=== PATIENT | female | born 1955 | race Caucasian/White ===

== ENCOUNTER 2023-03-02 11:18 | Inpatient (IN) ==
[2023-03-02] MEDS ORDERED: ONDANSETRON INJ 2 MG/ML 2 ML VIAL IV STA (11:57)
[2023-03-02] MEDS ORDERED: CEFEPIME 2,000 MG/20 ML VIAL IV STA (11:57)
[2023-03-02] MEDS: SODIUM CHLORIDE 0.9% 1,000 ML IV SCH ×2 (12:11→15:09)
[2023-03-02] MEDS ORDERED: STAT IV Infusion **Titration per Protocol STA (12:16)
[2023-03-02] MEDS ORDERED: NOREPINEPHRINE/D5W 4 MG/250 ML IV ONE (12:18)
--- NOTE | 2023-03-02 12:27 | XRay Report ---
SINGLE VIEW CHEST CLINICAL HISTORY: Sepsis. FINDINGS: An AP, portable, upright chest radiograph is compared to study dated 04/12/2011. The heart i s enlarged noting atherosclerotic calcification of the thoracic aorta. There is prominence of the pul monary vasculature. Chronic elevation right hemidiaphragm is similar to previous. There is bibasilar atelectasis. No pneumothorax is seen. The skeletal structures are osteopenic. The bony thorax is alis sly intact. Arthritic change is noted in the shoulders. IMPRESSION: 1. Cardiomegaly with prominence of the pulmonary vasculature. Correlate clinically for evidence of fl uid overload/congestive change. 2. No airspace consolidation or large pleural effusion is identified. ACT 112: Negative or not required by law. Electronically signed by: Tani Phan M.D. 03/02/2023 12:26 PM
[2023-03-02 12:28] LABS: Hematocrit (blood only) 42.1 % (37.0-47.0); Hemoglobin 12.5 g/dl (12.0-16.0); Mean Corpuscular Hemoglobin 23.8 pg (25.0-34.0); Mean Corpuscular Hgb Conc 29.7 g/dL (32.0-36.0); Mean Platelet Volume 11.2 fL (9.4-12.4); Platelet Count 237 K/uL (130-400); RDW Coefficient of Variation 18.5 % (11.5-14.5); RDW Standard Deviation 52.6 fL (36.4-46.3); Red Blood Count 5.26 M/uL (4.20-5.40); White Blood Count 11.18 K/ul (4.8-10.8)
[2023-03-02] MEDS ORDERED: NOREPINEPHRINE/D5W 4 MG/250 ML PLCT IV SCH (12:30)
[2023-03-02 12:42] LABS: Albumin Globulin Ratio 1.1 (0.9-2); Albumin Level 3.9 gm/dl (3.4-5.0); BUN Creatinine Ratio 18.8 (10-20); Bilirubin,Total 0.5 mg/dl (0.2-1.0); Calcium 8.8 mg/dl (8.6-10.3); Creatinine Clr Calc Pharmacy 88.3 ml/min; Est GFR (African American) 82.2 ml/min; Est GFR (Non-African American) 70.9 ml/min; Globulin 3.7 gm/dl (2.5-4.0); Magnesium 1.2 mg/dl (1.7-2.4); Potassium 4.6 mmol/L (3.5-5.1); Total Protein 7.6 gm/dl (6.0-8.3)
[2023-03-02 12:48] LABS: Troponin I High Sensitivity 48.6 pg/ml (0-14)
--- NOTE | 2023-03-02 12:51 | Emergency Department Note ---
Impression & Plan Sepsis, PAD (peripheral artery disease), Stenosis of right subclavian artery ED Provider Note NAME: ALLEN HERNANDEZ AGE: 67 SEX: F : 1955 ARRIVES VIA: Walk-In INFORMANT: Patient, ED PROVIDER(S): Angel Ro MD CHIEF COMPLAINT: Hypotension HPI: This is a 67-year-old female presenting for hypotension. Patient reports that she has had vascular problems in the past including an occluded right lower extremity artery. She had a bypass graft which is also been occluded as per vascular doctor yesterday. She has had nonhealing wounds on her right toe as well as the surgical site from the graft. She was sent in by her doctor for low blood pressure concerning for sepsis. Patient tells me that she woke up with uncontrollable shivering. She notes dizziness and vomiting. Alleviating down at this time. She felt totally in her baseline yesterday with normal blood pressures at her doctor's office. Otherwise she denies any chest pain, shortness of breath. ROS: See above HPI for pertinent positives & negatives. A total of 10 systems reviewed and were otherwise negative. PAST MEDICAL HISTORY: See Below PAST SURGICAL HISTORY: See Below FAMILY HISTORY: See Below SOCIAL HISTORY: See Below HOME MEDICATIONS: See Below ALLERGIES: See Below VITALS: See Below PHYSICAL EXAMINATION: General: resting comfortably in no acute distress Head: Normocephalic and atraumatic Eyes: Normal inspection, extraocular muscles intact Ear, nose, throat: Normal external exam Neck: Normal range of motion Respiratory: lungs clear to auscultation bilaterally Cardiovascular: Regular rate/rhythm, no murmur GI: soft, nontender, no guarding or rebound Extremities: Small nonhealing ulcer to the right toe, well-perfused bilateral lower extremities Neuro: The patient awake and alert, appropriately conversive, no focal deficits, symmetric faces Skin: Warm, dry, and intact MEDICAL DECISION MAKING: This is a 67-year-old female senting for hypotension. Concern for multiple times is possibly hypovolemic, septic or cardiogenic. Low concern for cardiogenic shock at this time clinically. -Blood pressure cuff tried on bilateral arms, right upper extremity significantly lower in the 60 systolic while left upper extremity is 80s to 90 systolic. Patient have history of subclavian artery disease which could be contributing. Otherwise she has well-perfused extremities bilaterally with normal pulses -Will do CTA to rule out dissection however low concern the patient has no chest pain, back pain or tearing sensation -Otherwise consider central source as the nonhealing wounds of her right toe/surgical site on the right foot -Patient's foot is well-perfused, warm, redness similar to left -Patient given small dose of Levophed, improvement with 1 L normal saline -Given cefepime for broad-spectrum coverage -CTA does reveal high-grade stenosis of the right subclavian -Discussed with patient's vascular surgeon, Dr. Rosas at [facility] who states that patient should be stabilized here. I discussed the CT results with him and states these are likely chronic without acute issue, no emergent procedure needed at this time. He was scheduling her for an angiogram tomorrow for her graft occlusion in her right lower extremity. Due to patient's nickel allergy she is not a candidate for many endovascular procedures. He made the patient aware that she is already high risk for limb loss. He believes that if we do ultrasound here they will show monophasic signal similar to the yesterday. Otherwise he is happy to consult with the inpatient team here. -Full 30 cc/kg bolus was not given due to patient's history of CHF and signs of fluid overload on chest x-ray/CT as well as hypoxia Differential diagnosis: see above ER treatment provided: See below Diagnostics interpreted by me: ECG: ECG independently interpreted by me with sinus tachycardia, rate of 112, left axis deviation, normal TX, intraventricular conduction delay, normal QTc, no ST segment elevations consistent with STEMI criteria Cardiac Monitoring: An order was placed for continuous cardiac monitoring. The monitor shows a rate of 111 with sinus tach rhythm. Laboratory studies: As stated above and show below. Imaging studies: See below. Critical Care Note: I have personally spent 55 minutes of critical care time in the direct management of this patient. This includes bedside care, interpretation of diagnostic studies, and testing, discussion with consultants, patient, and family members, and other required patient management activities. This 55 minutes is in excess of all separately billable procedures. Past Med/Surg History Medical History (Updated 03/03/23 @ 12:23 by Angel Ro MD) Nocturnal hypoxemia due to emphysema currently using 4L O2 at night Carotid artery stenosis Dyslipidemia GERD without esophagitis History of stroke History of nonmelanoma skin cancer Right inguinal hernia HTN (hypertension) Sensorineural hearing loss SVT (supraventricular tachycardia) Urge incontinence Diabetic macular edema Diabetic retinopathy, nonproliferative COPD (chronic obstructive pulmonary disease) Stenosis of right subclavian artery PAD (peripheral artery disease) CAD (coronary artery disease) Type 2 diabetes mellitus with diabetic neuropathy Surgical History (Updated 03/02/23 @ 17:22 by Tricia Langley PA-C) History of cholecystectomy Hx of sinus surgery Status post breast lumpectomy Hx of tubal ligation H/O: hysterectomy H/O cardiac radiofrequency ablation History of right-sided carotid endarterectomy S/P carpal tunnel release S/P femoropopliteal bypass surgery S/P drug eluting coronary stent placement S/P CABG x 3 Family History (Updated 03/02/23 @ 17:17 by Tricia Langley PA-C) Other Cancer Diabetes Hypertension Social History (Updated 03/02/23 @ 17:18 by Tricia Langley PA-C) Smoking Status: Former smoker Smoking End Date: 12/08/21; Hx Alcohol Use: No Hx Substance Use: No Preferred Language: Icelandic Communication Ability: Effective Integration Aide Required: No Beliefs That Will Affect Care: None Current Living Situation: Spouse Other Information That Helps Us Care for You: No Feels Safe at Home: Yes Safety Concerns: Feels Safe At This Time Assistive Devices: None Allergies Allergies Allergy/AdvReac Type Severity Reaction Status Date / Time paroxetine Allergy Severe HIVES;ANAPHYLAXIS-GENERIC Verified 01/18/23 18:54 BRAND nickel Allergy Intermediate RASH Verified 01/18/23 18:54 Penicillins Allergy Intermediate RASH Verified 01/18/23 18:54 Sulfa (Sulfonamide Allergy Intermediate RASH Verified 01/18/23 18:54 Antibiotics) doxepin AdvReac Intermediate HYPOTENSION Verified 01/18/23 18:54 Home Meds Home Medications Medication Instructions Recorded Confirmed albuterol sulfate 90 mcg/actuation 2 puff inhalation Q4H PRN 01/18/23 03/02/23 aerosol inhaler COUGH/WHEEZING amitriptyline 50 mg tablet 50 mg PO HS 01/18/23 03/02/23 aspirin 81 mg chewable tablet 81 mg PO QAM 01/18/23 03/02/23 atorvastatin 80 mg tablet 80 mg PO DAILY 01/18/23 03/02/23 empagliflozin 10 mg tablet 10 mg PO QAM 01/18/23 03/02/23 (Jardiance) fluticasone propionate 50 2 spray intranasal BID PRN 01/18/23 03/02/23 mcg/actuation nasal Congestion spray,suspension gabapentin 300 mg capsule 300 mg PO BID 01/18/23 03/02/23 insulin aspart U-100 100 unit/mL 15 unit subcut TIDM 01/18/23 03/02/23 (3 mL) subcutaneous pen (Novolog FlexPen U-100 Insulin aspart) insulin glargine 100 unit/mL (3 54 unit subcut HS 01/18/23 03/02/23 mL) subcutaneous pen (Basaglar KwikPen U-100 Insulin) krill oil 1,000 mg-om3 130 mg-dha 1 cap PO QAM 01/18/23 03/02/23 40 mg-epa 80 [id number] cap (Krill Oil (Cope 3 and 6)) liraglutide 0.6 mg/0.1 mL (18 mg/3 1.2 mg subcut DAILY PRN FASTING 01/18/23 03/02/23 mL) subcutaneous pen injector BSG > 150 (Victoza 2-Jayy) lorazepam 0.5 mg tablet 0.5 mg PO Q8H PRN ANXIETY/INSOMNIA 01/18/23 03/02/23 metformin 850 mg tablet 850 mg PO TIDM 01/18/23 03/02/23 metoprolol succinate 25 mg 25 mg PO QAM 01/18/23 03/02/23 tablet,extended release 24 hr mirabegron 50 mg tablet,extended 50 mg PO QAM 01/18/23 03/02/23 release 24 hr (Myrbetriq) rivaroxaban 2.5 mg tablet (Xarelto) 2.5 mg PO BID 01/18/23 03/02/23 ropinirole 0.5 mg tablet 0.5 mg PO HS 01/18/23 03/02/23 sertraline 50 mg tablet 100 mg PO QAM 01/18/23 03/02/23 tramadol 50 mg tablet 50 - 100 mg PO Q6H PRN Pain 01/18/23 03/02/23 Lactobacillus acidophilus 250 1,000 mmu cells PO DAILY 03/02/23 03/02/23 million cell capsule (Probiotic Acidophilus) cranberry fruit concentrate 250 mg 250 mg PO DAILY 03/02/23 03/02/23 chewable tablet (Azo Cranberry) docusate sodium 100 mg capsule 100 mg PO BID PRN Constipation 03/02/23 03/02/23 doxycycline hyclate 100 mg capsule 100 mg PO AMHS 03/02/23 03/02/23 Results & Data (ED) Vital Signs Vital Signs - 24 hr 03/02/23 12:22 03/02/23 12:24 03/02/23 12:26 Pulse Rate Pulse Rate [Right Finger] 110 H 112 H Pulse Rate from SpO2 Sensor Respiratory Rate 19 Respiratory Effort / Characteristics Non-Labored Respiratory Depth Normal Respiratory Pattern Blood Pressure Blood Pressure [Left Arm] Blood Pressure [Right Arm] 70/52 L 68/55 L Blood Pressure Mean Blood Pressure Mean [Left Arm] Blood Pressure Mean [Right Arm] 58 59 Pulse Oximetry 98 Oxygen Delivery Method Nasal Cannula Nasal Cannula Oxygen Flow Rate 4 4 03/02/23 12:28 03/02/23 12:29 03/02/23 12:29 Pulse Rate Pulse Rate [Right Finger] 110 H Pulse Rate from SpO2 Sensor Respiratory Rate 20 20 Respiratory Effort / Characteristics Respiratory Depth Respiratory Pattern Blood Pressure Blood Pressure [Left Arm] 107/69 109/73 Blood Pressure [Right Arm] 107/69 Blood Pressure Mean Blood Pressure Mean [Left Arm] 81 85 Blood Pressure Mean [Right Arm] 81 Pulse Oximetry 98 98 Oxygen Delivery Method Nasal Cannula Oxygen Flow Rate 4 03/02/23 12:31 03/02/23 12:46 03/02/23 13:12 Pulse Rate 111 H Pulse Rate [Right Finger] 110 H 106 H Pulse Rate from SpO2 Sensor Respiratory Rate 24 17 Respiratory Effort / Characteristics Non-Labored Respiratory Depth Normal Respiratory Pattern Regular Blood Pressure Blood Pressure [Left Arm] Blood Pressure [Right Arm] Blood Pressure Mean Blood Pressure Mean [Left Arm] Blood Pressure Mean [Right Arm] Pulse Oximetry 99 Oxygen Delivery Method Nasal Cannula Oxygen Flow Rate 4 03/02/23 13:18 03/02/23 13:30 03/02/23 13:30 Pulse Rate 106 H 107 H Pulse Rate [Right Finger] Pulse Rate from SpO2 Sensor 107 H Respiratory Rate 17 23 Respiratory Effort / Characteristics Respiratory Depth Respiratory Pattern Blood Pressure 92/69 L 90/68 L Blood Pressure [Left Arm] Blood Pressure [Right Arm] Blood Pressure Mean 76 70 Blood Pressure Mean [Left Arm] Blood Pressure Mean [Right Arm] Pulse Oximetry 100 97 Oxygen Delivery Method Nasal Cannula Oxygen Flow Rate 4 03/02/23 13:35 03/02/23 13:35 03/02/23 13:40 Pulse Rate 106 H Pulse Rate [Right Finger] Pulse Rate from SpO2 Sensor 106 H Respiratory Rate 20 Respiratory Effort / Characteristics Respiratory Depth Respiratory Pattern Blood Pressure 92/64 L 95/63 L Blood Pressure [Left Arm] Blood Pressure [Right Arm] Blood Pressure Mean 77 74 Blood Pressure Mean [Left Arm] Blood Pressure Mean [Right Arm] Pulse Oximetry 96 Oxygen Delivery Method Oxygen Flow Rate 03/02/23 13:40 03/02/23 13:41 03/02/23 13:41 Pulse Rate 106 H 105 H Pulse Rate [Right Finger] Pulse Rate from SpO2 Sensor 107 H 106 H Respiratory Rate 16 19 Respiratory Effort / Characteristics Respiratory Depth Respiratory Pattern Blood Pressure 105/62 Blood Pressure [Left Arm] Blood Pressure [Right Arm] Blood Pressure Mean 69 Blood Pressure Mean [Left Arm] Blood Pressure Mean [Right Arm] Pulse Oximetry 99 97 Oxygen Delivery Method Oxygen Flow Rate 03/02/23 13:45 03/02/23 13:45 03/02/23 13:50 Pulse Rate 107 H Pulse Rate [Right Finger] Pulse Rate from SpO2 Sensor 107 H Respiratory Rate 23 Respiratory Effort / Characteristics Respiratory Depth Respiratory Pattern Blood Pressure 95/67 L 109/68 Blood Pressure [Left Arm] Blood Pressure [Right Arm] Blood Pressure Mean 71 91 Blood Pressure Mean [Left Arm] Blood Pressure Mean [Right Arm] Pulse Oximetry 96 Oxygen Delivery Method Oxygen Flow Rate 03/02/23 13:50 03/02/23 13:55 03/02/23 13:55 Pulse Rate 107 H 106 H Pulse Rate [Right Finger] Pulse Rate from SpO2 Sensor 107 H 106 H Respiratory Rate 22 24 Respiratory Effort / Characteristics Respiratory Depth Respiratory Pattern Blood Pressure 101/66 Blood Pressure [Left Arm] Blood Pressure [Right Arm] Blood Pressure Mean 85 Blood Pressure Mean [Left Arm] Blood Pressure Mean [Right Arm] Pulse Oximetry 96 97 Oxygen Delivery Method Oxygen Flow Rate 03/02/23 14:00 03/02/23 14:00 03/02/23 14:05 Pulse Rate 106 H 108 H Pulse Rate [Right Finger] Pulse Rate from SpO2 Sensor 106 H 107 H Respiratory Rate 24 15 Respiratory Effort / Characteristics Respiratory Depth Respiratory Pattern Blood Pressure 96/67 L Blood Pressure [Left Arm] Blood Pressure [Right Arm] Blood Pressure Mean 76 Blood Pressure Mean [Left Arm] Blood Pressure Mean [Right Arm] Pulse Oximetry 97 93 Oxygen Delivery Method Oxygen Flow Rate 03/02/23 14:05 03/02/23 14:10 03/02/23 14:10 Pulse Rate 107 H Pulse Rate [Right Finger] Pulse Rate from SpO2 Sensor 107 H Respiratory Rate 20 Respiratory Effort / Characteristics Respiratory Depth Respiratory Pattern Blood Pressure 95/59 L 108/60 Blood Pressure [Left Arm] Blood Pressure [Right Arm] Blood Pressure Mean 77 72 Blood Pressure Mean [Left Arm] Blood Pressure Mean [Right Arm] Pulse Oximetry 96 Oxygen Delivery Method Oxygen Flow Rate 03/02/23 14:20 03/02/23 14:20 03/02/23 14:26 Pulse Rate 113 H Pulse Rate [Right Finger] Pulse Rate from SpO2 Sensor Respiratory Rate 24 Respiratory Effort / Characteristics Respiratory Depth Respiratory Pattern Blood Pressure 140/76 105/88 Blood Pressure [Left Arm] Blood Pressure [Right Arm] Blood Pressure Mean 97 89 Blood Pressure Mean [Left Arm] Blood Pressure Mean [Right Arm] Pulse Oximetry Oxygen Delivery Method Oxygen Flow Rate 03/02/23 14:26 03/02/23 14:31 03/02/23 14:31 Pulse Rate 103 H 107 H Pulse Rate [Right Finger] Pulse Rate from SpO2 Sensor Respiratory Rate 17 27 H Respiratory Effort / Characteristics Respiratory Depth Respiratory Pattern Blood Pressure 113/80 Blood Pressure [Left Arm] Blood Pressure [Right Arm] Blood Pressure Mean 88 Blood Pressure Mean [Left Arm] Blood Pressure Mean [Right Arm] Pulse Oximetry Oxygen Delivery Method Oxygen Flow Rate 03/02/23 14:35 03/02/23 14:35 03/02/23 14:40 Pulse Rate 108 H 105 H Pulse Rate [Right Finger] Pulse Rate from SpO2 Sensor Respiratory Rate 20 23 Respiratory Effort / Characteristics Respiratory Depth Respiratory Pattern Blood Pressure 87/62 L Blood Pressure [Left Arm] Blood Pressure [Right Arm] Blood Pressure Mean 69 Blood Pressure Mean [Left Arm] Blood Pressure Mean [Right Arm] Pulse Oximetry Oxygen Delivery Method Oxygen Flow Rate 03/02/23 14:40 03/02/23 14:45 03/02/23 14:45 Pulse Rate 103 H Pulse Rate [Right Finger] Pulse Rate from SpO2 Sensor 103 H Respiratory Rate 26 H Respiratory Effort / Characteristics Respiratory Depth Respiratory Pattern Blood Pressure 79/59 L 77/55 L Blood Pressure [Left Arm] Blood Pressure [Right Arm] Blood Pressure Mean 61 64 Blood Pressure Mean [Left Arm] Blood Pressure Mean [Right Arm] Pulse Oximetry 93 Oxygen Delivery Method Oxygen Flow Rate 03/02/23 14:50 03/02/23 14:50 03/02/23 14:56 Pulse Rate 106 H Pulse Rate [Right Finger] Pulse Rate from SpO2 Sensor 106 H Respiratory Rate 23 Respiratory Effort / Characteristics Respiratory Depth Respiratory Pattern Blood Pressure 90/61 L 90/60 L Blood Pressure [Left Arm] Blood Pressure [Right Arm] Blood Pressure Mean 69 71 Blood Pressure Mean [Left Arm] Blood Pressure Mean [Right Arm] Pulse Oximetry 89 L Oxygen Delivery Method Oxygen Flow Rate 03/02/23 14:56 03/02/23 15:00 03/02/23 15:00 Pulse Rate 104 H 105 H Pulse Rate [Right Finger] Pulse Rate from SpO2 Sensor Respiratory Rate 24 25 H Respiratory Effort / Characteristics Respiratory Depth Respiratory Pattern Blood Pressure 107/67 Blood Pressure [Left Arm] Blood Pressure [Right Arm] Blood Pressure Mean 84 Blood Pressure Mean [Left Arm] Blood Pressure Mean [Right Arm] Pulse Oximetry Oxygen Delivery Method Oxygen Flow Rate 03/02/23 15:05 03/02/23 15:05 03/02/23 15:06 Pulse Rate 104 H 102 H Pulse Rate [Right Finger] Pulse Rate from SpO2 Sensor 104 H Respiratory Rate 32 H 20 Respiratory Effort / Characteristics Respiratory Depth Respiratory Pattern Blood Pressure 115/70 115/70 Blood Pressure [Left Arm] Blood Pressure [Right Arm] Blood Pressure Mean 80 85 Blood Pressure Mean [Left Arm] Blood Pressure Mean [Right Arm] Pulse Oximetry 90 90 Oxygen Delivery Method Nasal Cannula Oxygen Flow Rate 4 Laboratory Data 03/03/23 05:05 03/03/23 05:05 Lab Results 03/02/23 03/02/23 03/02/23 Range/Units 12:03 12:08 13:45 WBC 11.18 H (4.8-10.8) K/ul RBC 5.26 (4.20-5.40) M/uL Hgb 12.5 (12.0-16.0) g/dl Hct 42.1 (37.0-47.0) % MCV 80.0 (80.0-100.0) fL MCH 23.8 L (25.0-34.0) pg MCHC 29.7 L (32.0-36.0) g/dL RDW Std Deviation 52.6 H (36.4-46.3) fL RDW Coeff of Janice 18.5 H (11.5-14.5) % Plt Count 237 (130-400) K/uL MPV 11.2 (9.4-12.4) fL Immature Gran % (Auto) 0.5 % Neut % (Auto) 94.9 % Lymph % (Auto) 2.1 % [place] % (Auto) 2.0 % Eos % (Auto) 0.2 % Baso % (Auto) 0.3 % Neut # (Auto) 10.61 H (1.40-6.50) K/uL Lymph # (Auto) 0.24 L (1.20-3.40) K/uL [place] # (Auto) 0.22 (0.11-0.59) K/uL Eos # (Auto) 0.02 (0.00-0.50) K/uL Baso # (Auto) 0.03 (0.00-0.20) K/uL Immature Gran # (Auto) 0.06 (0.01-0.20) K/uL Polychromasia 1+ Ovalocytes 1+ PT 10.4 (9.0-12.0) Seconds INR 0.9 (0.9-1.1) APTT 23 (21-31) Seconds PTT Ratio 0.8 Sodium 133 L (136-145) mmol/L Potassium 4.6 (3.5-5.1) mmol/L Chloride 99 (98-107) mmol/L Carbon Dioxide 24 (21-32) mmol/L Anion Gap 10 (3-11) BUN 16 (6-23) mg/dl Creatinine 0.85 (0.6-1.2) mg/dl Est Cr Clr Drug Dosing 88.3 ml/min Est GFR ( Amer) 82.2 ml/min Est GFR (Non-Af Amer) 70.9 ml/min BUN/Creatinine Ratio 18.8 (10-20) Glucose 246 H (70-99(Fasting)) mg/dl POC Glucose 242 H (70-99) mg/dl Lactate 2.3 H* 2.8 H* (0.4-2.0) mmol/L Calcium 8.8 (8.6-10.3) mg/dl Magnesium 1.2 L (1.7-2.4) mg/dl Total Bilirubin 0.5 (0.2-1.0) mg/dl AST 20 (13-39) U/L ALT 15 (7-52) U/L Alkaline Phosphatase 127 H (34-104) U/L Troponin I High Sens 48.6 H (0-14) pg/ml B-Natriuretic Peptide 121 H (0-100) pg/ml Total Protein 7.6 (6.0-8.3) gm/dl Albumin 3.9 (3.4-5.0) gm/dl Globulin 3.7 (2.5-4.0) gm/dl Albumin/Globulin Ratio 1.1 (0.9-2) Procalcitonin 10.65 H (0-0.5) ng/ml Urine Color Urine Appearance (Clear) Urine pH (4.5-7.5) Ur Specific [place] (1.000-1.030) Urine Protein (Negative) Urine Glucose (UA) (Negative) Urine Ketones (Negative) Urine Blood (Negative) Urine Nitrite (Negative) Urine Bilirubin (Negative) Urine Urobilinogen (Negative) Ur Leukocyte Esterase (Negative) 03/02/23 03/02/23 Range/Units 14:19 14:26 WBC (4.8-10.8) K/ul RBC (4.20-5.40) M/uL Hgb (12.0-16.0) g/dl Hct (37.0-47.0) % MCV (80.0-100.0) fL MCH (25.0-34.0) pg MCHC (32.0-36.0) g/dL RDW Std Deviation (36.4-46.3) fL RDW Coeff of Janice (11.5-14.5) % Plt Count (130-400) K/uL MPV (9.4-12.4) fL Immature Gran % (Auto) % Neut % (Auto) % Lymph % (Auto) % [place] % (Auto) % Eos % (Auto) % Baso % (Auto) % Neut # (Auto) (1.40-6.50) K/uL Lymph # (Auto) (1.20-3.40) K/uL [place] # (Auto) (0.11-0.59) K/uL Eos # (Auto) (0.00-0.50) K/uL Baso # (Auto) (0.00-0.20) K/uL Immature Gran # (Auto) (0.01-0.20) K/uL Polychromasia Ovalocytes PT (9.0-12.0) Seconds INR (0.9-1.1) APTT (21-31) Seconds PTT Ratio Sodium (136-145) mmol/L Potassium (3.5-5.1) mmol/L Chloride (98-107) mmol/L Carbon Dioxide (21-32) mmol/L Anion Gap (3-11) BUN (6-23) mg/dl Creatinine (0.6-1.2) mg/dl Est Cr Clr Drug Dosing ml/min Est GFR ( Amer) ml/min Est GFR (Non-Af Amer) ml/min BUN/Creatinine Ratio (10-20) Glucose (70-99(Fasting)) mg/dl POC Glucose (70-99) mg/dl Lactate (0.4-2.0) mmol/L Calcium (8.6-10.3) mg/dl Magnesium (1.7-2.4) mg/dl Total Bilirubin (0.2-1.0) mg/dl AST (13-39) U/L ALT (7-52) U/L Alkaline Phosphatase (34-104) U/L Troponin I High Sens 63.3 H* D (0-14) pg/ml B-Natriuretic Peptide (0-100) pg/ml Total Protein (6.0-8.3) gm/dl Albumin (3.4-5.0) gm/dl Globulin (2.5-4.0) gm/dl Albumin/Globulin Ratio (0.9-2) Procalcitonin (0-0.5) ng/ml Urine Color Yellow Urine Appearance Clear (Clear) Urine pH 5.0 (4.5-7.5) Ur Specific [place] > 1.045 H (1.000-1.030) Urine Protein Negative (Negative) Urine Glucose (UA) 3+ H (Negative) Urine Ketones Negative (Negative) Urine Blood Negative (Negative) Urine Nitrite Negative (Negative) Urine Bilirubin Negative (Negative) Urine Urobilinogen Negative (Negative) Ur Leukocyte Esterase Negative (Negative) Administered Medications Amitriptyline HCl (Amitriptyline Hcl 50 Mg Tab) 50 mg PO HS [facility] Stop: 04/01/23 20:59 Last Admin: 03/02/23 20:57 Dose: 50 mg Documented By: KURTIS Aspirin (Aspirin 81 Mg Ectab) 81 mg PO QAM [facility] Stop: 04/02/23 08:59 Last Admin: 03/03/23 07:49 Dose: 81 mg Documented By: COOPER Atorvastatin Calcium (Atorvastatin 40 Mg Tab) 80 mg PO DAILY [facility] Stop: 04/02/23 08:59 Last Admin: 03/03/23 07:49 Dose: 80 mg Documented By: COOPER Empagliflo[facility] (Empagliflozin 10 Mg Tab) [facility] [place]: 04/02/23 08:59 Last Admin: 03/03/23 07:49 Dose: 10 mg Documented By: COOPER Gabapentin (Gabapentin 300 Mg Cap) 300 mg PO BID@1200,2100 [facility] Stop: 04/01/23 20:59 Last Admin: 03/02/23 20:58 Dose: 300 mg Documented By: KURTIS Vancomycin HCl 1,000 mg/ (Sodium Chloride) 270 mls @ 200 mls/hr IV Q12H [facility] Stop: 03/10/23 03:59 Last Infusion: 03/03/23 05:04 Dose: Infused Documented By: Admin: 03/03/23 03:28 Dose: 200 mls/hr Documented By: JYOTHI Cefepime HCl 2,000 mg/ Syringe 20 mls @ 5 mls/min IV Q12H [facility]; Protocol Stop: 03/10/23 00:00 Last Admin: 03/03/23 00:28 Dose: 5 mls/min Documented By: KURTIS Insulin Aspart (Insulin Aspart Per Unit Charge) 0 units SC ACHS [facility] Stop: 04/01/23 17:59 Last Admin: 03/03/23 09:06 Dose: 10 units Documented By: COOPER Co-signed By: BRETT Admin: 03/02/23 22:57 Dose: 5 units Documented By: KURTIS Co-signed By: Admin: 03/02/23 19:08 Dose: 6 units Documented By: MAYKEL Co-signed By: KURTIS Insulin Glargine (Lantus Per Unit Charge) 20 units SQ BID [facility] Stop: 04/01/23 20:59 Last Admin: 03/03/23 08:27 Dose: 20 units Documented By: COOPER Co-signed By: BRETT Admin: 03/02/23 20:53 Dose: 20 units Documented By: KURTIS Co-signed By: BLAYNEJ Lactobacillus Acidophilus (Advanced Probiotic 1250 Mg Capsule) 2 cap PO DAILY [facility]; Protocol Stop: 04/02/23 08:59 Last Admin: 03/03/23 07:50 Dose: 2 cap Documented By: COOPER Metoprolol Succinate (Metoprolol Succ 25mg Ext Rel Tab) [facility] [place] [facility] [place]: 04/02/23 08:59 Last Admin: 03/03/23 09:07 Dose: 25 mg Documented By: COOPER Rivaroxaban (Rivaroxaban 2.5 Mg Tab) 2.5 mg PO BID [facility] Stop: 04/01/23 20:59 Last Admin: 03/03/23 07:51 Dose: 2.5 mg Documented By: Admin: 03/02/23 22:22 Dose: Not Given Documented By: KURTIS Ropinirole HCl (Ropinirole Hcl 0.25 Mg Tablet) 0.5 mg PO [facility] Stop: 04/01/23 20:59 Last Admin: 03/02/23 20:56 Dose: 0.5 mg Documented By: KURTIS Sertraline HCl (Sertraline Hcl 100 Mg Tablet) [address] [facility] Stop: 04/02/23 08:59 Last Admin: 03/03/23 07:50 Dose: 100 mg Documented By: COOPER Vibegron (Vibegron 75 Mg Tab) 75 mg PO DAILY [facility]; Protocol Stop: 04/02/23 08:59 Last Admin: 03/03/23 07:51 Dose: 75 mg Documented By: COOPER Discontinued Medications Sodium Chloride (Nss) 1,000 mls @ 999 mls/hr IV .Q1H1M [facility] Stop: 03/02/23 14:00 Last Admin: 03/02/23 15:09 Dose: Not Given Documented By: Infusion: 03/02/23 14:03 Dose: Infused Documented By: Admin: 03/02/23 12:11 Dose: 999 mls/hr Documented By: MAYKEL Cefepime HCl (Maxipime) 2,000 mg in 20 mls @ 5 mls/min IV NOW [facility]; Protocol Stop: 03/02/23 12:00 Last Admin: 03/02/23 12:16 Dose: 5 mls/min Documented By: SHRUTHI Norepinephrine Bitartrate (Levophed/D5w) 4 mg in 250 mls @ 21.563 mls/hr IV .[id number] [facility]; Protocol Stop: 04/01/23 12:29 Last Admin: 03/02/23 17:33 Dose: Not Given Documented By: NRB Vancomycin HCl 2,750 mg/ (Sodium Chloride) 555 mls @ 200 mls/hr IV NOW ONE Stop: 03/02/23 19:46 Last Infusion: 03/02/23 20:17 Dose: Infused Documented By: Admin: 03/02/23 17:29 Dose: 200 mls/hr Documented By: NRBennie Magnesium Sulfate/Dextrose (Magnesium Sulfate / D5w) 1 gm in 100 mls @ 50 mls/hr IV Q2H [facility] Stop: 03/02/23 23:44 Last Infusion: 03/03/23 00:41 Dose: Infused Documented By: Admin: 03/02/23 22:21 Dose: 50 mls/hr Documented By: Infusion: 03/02/23 21:56 Dose: Infused Documented By: Admin: 03/02/23 19:56 Dose: 50 mls/hr Documented By: Infusion: 03/02/23 19:41 Dose: Infused Documented By: Admin: 03/02/23 17:41 Dose: 50 mls/hr Documented By: MAYKEL Ioversol (Optiray 320 125ml) 118 ml IV ONCE ONE Stop: 03/02/23 12:55 Last Admin: 03/02/23 12:54 Dose: 118 ml Documented By: ARPITA Miscellaneous (Stat Iv Infusion Titration Per Protocol) 1 each N/A NOW STA Stop: 03/02/23 12:17 Last Admin: 03/02/23 17:33 Dose: Not Given Documented By: NRBennie Norepinephrine Bitartrate (Norepinephrine/D5w 4 Mg/250 Ml) Confirm Administered Dose 4 mg IV .STK-MED ONE Stop: 03/02/23 12:19 Last Admin: 03/02/23 12:24 Dose: 4 mg Documented By: MAYKEL Ondansetron HCl (Ondansetron Inj 2 Mg/Ml 2 Ml Vial) 4 mg IV NOW STA Stop: 03/02/23 11:58 Last Admin: 03/02/23 12:16 Dose: 4 mg Documented By: HS Ondansetron HCl (Ondansetron Inj 2 Mg/Ml 2 Ml Vial) Confirm Administered Dose 4 mg .ROUTE .STK-MED ONE Stop: 03/02/23 18:00 Last Admin: 03/02/23 18:01 Dose: 4 mg Documented By: NRB Imaging Data Radiologist's Impression: Chest X-Ray 03/02/23 11:48 SINGLE VIEW CHEST CLINICAL HISTORY: Sepsis. FINDINGS: An AP, portable, upright chest radiograph is compared to study dated 04/12/2011. The heart is enlarged noting atherosclerotic calcification of the thoracic aorta. There is prominence of the pulmonary vasculature. Chronic elevation right hemidiaphragm is similar to previous. There is bibasilar atelectasis. No pneumothorax is seen. The skeletal structures are osteopenic. The bony thorax is grossly intact. Arthritic change is noted in the shoulders. IMPRESSION: 1. Cardiomegaly with prominence of the pulmonary vasculature. Correlate clinically for evidence of fluid overload/congestive change. 2. No airspace consolidation or large pleural effusion is identified. ACT 112: Negative or not required by law. Electronically signed by: Tani Phan M.D. 03/02/2023 12:26 PM Foot X-Ray 03/02/23 12:20 XR foot RT 2V HISTORY: 67 years-old Female Foot wound COMPARISON: 01/16/2023 TECHNIQUE: 2 views the right foot FINDINGS: The mineralized appearance of the bones with mild to moderate osteoarthritis. Spurring of the calcaneus. Arterial calcifications. Soft tissue swelling with skin ulcer of the medial right great toe. No acute fracture, dislocation or osseous erosion. No opaque foreign body. IMPRESSION: 1. Soft tissue swelling with cutaneous ulcer of the medial right great toe redemonstrated. 2. No acute osseous abnormality. ACT 112: Negative or not required by law. The above report was generated using voice recognition software. It may contain grammatical, syntax or spelling errors. Electronically signed by: Gilbert Alvarenga M.D. 03/02/2023 2:05 PM Chest CTA 03/02/23 12:34 CT angio chest w con CT DOSE: 889.13 mGy.cm HISTORY: 67 years-old Female with dissection, unequal BP L v R. Acute shortness of breath TECHNIQUE: Multiple CTA images of the chest were obtained after the intravenous administration of 118 ml Optiray. Coronal and sagittal MIPS were obtained from the axial data set and were submitted for review. All measurements were obtained according to NASCET criteria. A dose lowering technique was utilized adhering to the principles of ALARA. COMPARISON: Chest radiograph of same day FINDINGS: CTA: Mild cardiomegaly with extensive coronary artery calcifications. No pericardial effusion. Prior median sternotomy. Atherosclerosis of the aorta, however this is not an arterial phase study secondary to suboptimal contrast bolus timing. Within the limitations of the study, there is no aneurysm, dissection, injury or mediastinal hematoma identified. There is approximately 50% luminal narrowing at the origin of the left subclavian artery secondary to calcified plaque with high-grade stenosis at the origin of the right (at least 90%). The opacified pulmonary artery is unremarkable. CT CHEST: No thyroid nodule. Borderline enlarged mediastinal and hilar lymph nodes measure up to approximately 10 mm. No pneumothorax or pleural effusion. Mild pulmonary emphysema with interlobular septal thickening. Mild linear bibasilar consolidation. Mild left apical pleural parenchymal scarring. There are no suspicious pulmonary nodule or mass is identified. The spleen and liver appear mildly enlarged. Cholecystectomy. No acute upper abdominal abnormality. Unremarkable soft tissues. IMPRESSION: 1. Limited exam secondary to phase of contrast timing. No thoracic aortic aneurysm or dissection. 2. Atherosclerosis of the thoracic aorta and origin of the great vessels. There is high-grade stenosis at the origin of the right subclavian artery with approximately 50% stenosis on the left. This finding may account for the difference in upper extremity blood pressure readings. 3. Right hemidiaphragm elevation with bibasilar atelectasis. 4. Cardiomegaly with questioned mild pulmonary edema. 5. Likely physiologic borderline enlarged mediastinal and hilar lymph nodes. ACT 112: Negative or not required by law. The above report was generated using voice recognition software. It may contain grammatical, syntax or spelling errors. Electronically signed by: Gilbert Alvarenga M.D. 03/02/2023 1:33 PM Discharge Plan Visit Data Chief Complaint: Illness Stated Complaint: NAUSEA, CHILLS, POSSIBLE INFECTION ED Provider: Angel Ro Discharge Problem: Sepsis, PAD (peripheral artery disease), Stenosis of right subclavian artery Discharge Instructions Interventions: ED Discharge Assessment Last Done: 03/02/23 17:55
[2023-03-02] MEDS ORDERED: OPTIRAY 320 125ml IV ONE (12:54)
[2023-03-02 12:58] LABS: INR 0.9 (0.9-1.1); Partial Thromboplastin Ratio 0.8; Partial Thromboplastin Time 23 Seconds (21-31); Prothrombin Time 10.4 Seconds (9.0-12.0)
[2023-03-02 13:03] LABS: Basophils # (auto) 0.03 K/uL (0.00-0.20); Basophils % (auto) 0.3 %; Eosinophils # (auto) 0.02 K/uL (0.00-0.50); Eosinophils % (auto) 0.2 %; Immature Granulocytes # (auto) 0.06 K/uL (0.01-0.20); Immature Granulocytes % (auto) 0.5 %; Lymphocytes # (auto) 0.24 K/uL (1.20-3.40); Lymphocytes % (auto) 2.1 %; Monocytes # (auto) 0.22 K/uL (0.11-0.59); Neutrophils # (auto) 10.61 K/uL (1.40-6.50); Neutrophils % (auto) 94.9 %; Ovalocytes 1+; Polychromasia 1+
--- NOTE | 2023-03-02 13:35 | CT Scan Report ---
CT angio chest w con CT DOSE: 889.13 mGy.cm HISTORY: 67 years-old Female with dissection, unequal BP L v R. Acute shortness of breath TECHNIQUE: Multiple CTA images of the chest were obtained after the intravenous administration of 118 ml Optiray. Coronal and sagittal MIPS were obtained from the axial data set and were submitted for review. All measurements were obtained according to NASCET criteria. A dose lowering technique was u tilized adhering to the principles of ALARA. COMPARISON: Chest radiograph of same day FINDINGS: CTA: Mild cardiomegaly with extensive coronary artery calcifications. No pericardial effusion. Prior media n sternotomy. Atherosclerosis of the aorta, however this is not an arterial phase study secondary to suboptimal contrast bolus timing. Within the limitations of the study, there is no aneurysm, dissecti on, injury or mediastinal hematoma identified. There is approximately 50% luminal narrowing at the or igin of the left subclavian artery secondary to calcified plaque with high-grade stenosis at the orig in of the right (at least 90%). The opacified pulmonary artery is unremarkable. CT CHEST: No thyroid nodule. Borderline enlarged mediastinal and hilar lymph nodes measure up to approximately 10 mm. No pneumothorax or pleural effusion. Mild pulmonary emphysema with interlobular septal thicken ing. Mild linear bibasilar consolidation. Mild left apical pleural parenchymal scarring. There are no suspicious pulmonary nodule or mass is identified. The spleen and liver appear mildly enlarged. Cholecystectomy. No acute upper abdominal abnormality. U nremarkable soft tissues. IMPRESSION: 1. Limited exam secondary to phase of contrast timing. No thoracic aortic aneurysm or dissection. 2. Atherosclerosis of the thoracic aorta and origin of the great vessels. There is high-grade stenosi s at the origin of the right subclavian artery with approximately 50% stenosis on the left. This find ing may account for the difference in upper extremity blood pressure readings. 3. Right hemidiaphragm elevation with bibasilar atelectasis. 4. Cardiomegaly with questioned mild pulmonary edema. 5. Likely physiologic borderline enlarged mediastinal and hilar lymph nodes. ACT 112: Negative or not required by law. The above report was generated using voice recognition software. It may contain grammatical, syntax o r spelling errors. Electronically signed by: Gilbert Alvarenga M.D. 03/02/2023 1:33 PM
--- NOTE | 2023-03-02 14:06 | XRay Report ---
XR foot RT 2V HISTORY: 67 years-old Female Foot wound COMPARISON: 01/16/2023 TECHNIQUE: 2 views the right foot FINDINGS: The mineralized appearance of the bones with mild to moderate osteoarthritis. Spurring of the calcane us. Arterial calcifications. Soft tissue swelling with skin ulcer of the medial right great toe. No a cute fracture, dislocation or osseous erosion. No opaque foreign body. IMPRESSION: 1. Soft tissue swelling with cutaneous ulcer of the medial right great toe redemonstrated. 2. No acute osseous abnormality. ACT 112: Negative or not required by law. The above report was generated using voice recognition software. It may contain grammatical, syntax o r spelling errors. Electronically signed by: Gilbert Alvarenga M.D. 03/02/2023 2:05 PM
[2023-03-02 14:47] LABS: Appearance Urine Clear (Clear); Bilirubin Urine Negative (Negative); Blood Urine Negative (Negative); Color Urine Yellow; Glucose Urine UA 3+ (Negative); Ketones Urine Negative (Negative); Leukocyte Esterase Urine Negative (Negative); Nitrite Urine Negative (Negative); Protein Urine Negative (Negative); Specific Gravity Urine > 1.045 (1.000-1.030); Urobilinogen Urine Negative (Negative)
--- NOTE | 2023-03-02 14:48 | Electrocardiogram Report ---
Test Reason : Blood Pressure : / mmHG Vent. Rate : 112 BPM Atrial Rate : 112 BPM P-R Int : 186 ms QRS Dur : 114 ms QT Int : 342 ms P-R-T Axes : 051 -37 040 degrees QTc Int : 466 ms Sinus tachycardia Possible Left atrial enlargement Left axis deviation Minimal voltage criteria for LVH, may be normal variant Septal infarct , age undetermined Abnormal ECG When compared with ECG of 12-APR-2011 16:13, T wave inversion no longer evident in Lateral leads Confirmed by Silas Sibley ([id number]) on 03/02/2023 2:47:48 PM Referred By: Confirmed By:Silas Sibley
--- NOTE | 2023-03-02 16:03 | History & Physical Report ---
Date of Service March 02, 2023 Assessment & Plan (1) Severe sepsis: Plan: This is a 67 y/o female with insulin-requiring DM2, CAD s/p CABG x 3 (06/19), PAD w/ recent emergent revascularlization of the RLE, COPD/emphysema, diabetic retinopathy and macular edema, diabetic neuropathy, hx SVT, HTN, prior CVA, anxiety/depression, dyslipidemia, and other history as outlined below who was referred to the ED today for possible sepsis. On initial presentation, pt was hypotensive with systolic BP in the 60s, tachycardic >100, tachypnea. Initial lactic acid was 2.3, rpt 2.8. Procal elevated at 10.65. Initial troponin 48.6, rpt 63.3. Given 1L of IVF in the ED but second liter held due to concerns for pulmonary edema. Did not require Levophed drip although initially ordered. Cefepime given for broad-spectrum coverage and pt referred for admission. Presumed source of sepsis is known right great toe ulcer, pt has been on doxycycline from vascular. - Admit to PCU - ED provider discussed pt with vascular surgery [place] [facility] [place] - they agree with our plan to stabilize the patient and work-up further here before determining potential need for transfer vs. discharge with outpatient follow-up - Continue IV cefepime but broaden coverage to include MRSA coverage with Vanco. Blood cultures pending - MRI of right foot to rule out osteomyelitis - Consult podiatry - pt already following with Dr. Pankaj Chisholm - Cautiously resume pt's beta-wojciech as BP has improved, hx of CAD s/p CABG (2) Demand ischemia: Plan: Initial troponin 48.6, rpt 63.3. Pt denies any anginal symptoms but has a history of CAD with CABG x 3 in 2022. - Will trend troponin Q6hrs x 2 - Check ECHO (3) Hypomagnesemia: Plan: Mg today of 1.2 - pt reports that she was previously on supplemental magnesium but a provider told her to stop it - Replete mag IV - Recheck Mg in the AM (4) Diabetic ulcer of right great toe: Plan: - Wound culture - Wound care consult - Podiatry consult (5) Type 2 diabetes mellitus with diabetic neuropathy: Plan: - Continue basal insulin, sliding scale - Diabetic diet - Metformin on hold - A1c in the AM - BSG ACHS (6) CAD (coronary artery disease): Plan: suspect demand ischemia as cause of troponin elevation - currently asymptomatic (7) PAD (peripheral artery disease): Plan: See plan for #1 Will resume rivaroxaban 2.5 mg BID since no immediate surgical intervention anticipated - pt was started on by vascular after surgery in Dec (8) Morbid obesity due to excess calories: (9) COPD (chronic obstructive pulmonary disease): Plan: Stable - continue prn rescue inhaler (10) HTN (hypertension): Plan: Hypotensive on presentation due to severe sepsis - plan as above (11) Dyslipidemia: Plan: Chronic - continue statin (12) Nocturnal hypoxemia due to emphysema: Plan: On baseline 4L of O2 at HS - will continue (13) Stenosis of right subclavian artery: Plan: No BPs in right arm per vascular Plan Continue other home medications as appropriate. Pt seen and reviewed with collaborating physician, Dr. Bird. Plan of care discussed and as outlined above. Code Status: Full code DVT Prophylaxis: on rivaroxaban Rosenda Langley PA-C History of Present Illness Chief Complaint: chills, weakness, N/V Primary Care Provider: Jonny Donaldson MD This is a 67 y/o female with insulin-requiring DM2, CAD s/p CABG x 3 (06/19), PAD w/ recent emergent revascularlization of the RLE, COPD/emphysema, diabetic retinopathy and macular edema, diabetic neuropathy, hx SVT, HTN, prior CVA, anxiety/depression, dyslipidemia, and other history as outlined below who was referred to the ED today for possible sepsis. In Dec 2022, pt presented to the [facility] ED with RLE pain x 3 days. She was found to have ischemic limb with multiple occlusions and was life-flighted to [facility] for emergency revascularization on 01/19/23 and discharged on 01/22/23 on doxycylcine and cefuroxime until 02/02/23 as well as on rivaroxaban 2.5 mg BID. Pt has been following with Dr. Pankaj Chisholm for podiatric care who had recommended an MRI to rule out osteomyelitis. Followed up with vascular surgery on 02/24 due to possible right leg bypass infection due to pain and redness over the right medial calf surgical incision site - bypass found to be occluded. She was started on doxycycline 100 mg BID for ten days. She was instructed to paint the right great toe ulcer with Betadine and cover with dry dressing daily. Followed up with vascular yesterday - symptoms of infection were improving on the doxycycline. Scheduled for angiogram and attempt revasc for 03/03/23. Xarelto held for procedure. Pt reports that she felt fine when she went to bed last evening. This morning, she went to get pre-op labs for vascular procedure tomorrow and had the sudden onset of shaking chills, weakness, nausea/vomiting, and lightheadedness. She reached out to her vascular surgeon who was concerned she may be septic and recommended she go to the ER. She reports that the right great toe ulcer continues to improve with less redness and edema. She continues with scant drainage from the ulcer, has been following wound care instruction from vascular and painting the ulcer with Betadine daily. She denies chest pain, cough, shortness of breath, congestion, diarrhea, dysuria, hematuria. Her last dose of doxycycline was last night. Sugars have been at baseline the last few days. She does use a DexCom for monitoring. 01/19/23 pt underwent the following by Dr. Rosas: * RCFA to BK Pop Art BPG w/ cryopreserved vein * RDFA endarterectomy, beyond the site of our bypass proximal anastomosis (common femoral endarterectomy also performed as part of the revascularization) * PTCA REIA Allergies Allergy/AdvReac Type Severity Reaction Status Date / Time paroxetine Allergy Severe HIVES;ANAPHYLAXIS-GENERIC Verified 01/18/23 18:54 BRAND nickel Allergy Intermediate RASH Verified 01/18/23 18:54 Penicillins Allergy Intermediate RASH Verified 01/18/23 18:54 Sulfa (Sulfonamide Allergy Intermediate RASH Verified 01/18/23 18:54 Antibiotics) doxepin AdvReac Intermediate HYPOTENSION Verified 01/18/23 18:54 Home Medications Medication Instructions Recorded Confirmed Type albuterol sulfate 90 mcg/actuation 2 puff inhalation Q4H PRN 01/18/23 03/02/23 History aerosol inhaler COUGH/WHEEZING amitriptyline 50 mg tablet 50 mg PO HS 01/18/23 03/02/23 History aspirin 81 mg chewable tablet 81 mg PO QAM 01/18/23 03/02/23 History atorvastatin 80 mg tablet 80 mg PO DAILY 01/18/23 03/02/23 History empagliflozin 10 mg tablet 10 mg PO QAM 01/18/23 03/02/23 History (Jardiance) fluticasone propionate 50 2 spray intranasal BID PRN 01/18/23 03/02/23 History mcg/actuation nasal Congestion spray,suspension gabapentin 300 mg capsule 300 mg PO BID 01/18/23 03/02/23 History insulin aspart U-100 100 unit/mL 15 unit subcut TIDM 01/18/23 03/02/23 History (3 mL) subcutaneous pen (Novolog FlexPen U-100 Insulin aspart) insulin glargine 100 unit/mL (3 54 unit subcut HS 01/18/23 03/02/23 History mL) subcutaneous pen (Basaglar KwikPen U-100 Insulin) krill oil 1,000 mg-om3 130 mg-dha 1 cap PO QAM 01/18/23 03/02/23 History 40 mg-epa 80 [id number] cap (Krill Oil (Arvin 3 and 6)) liraglutide 0.6 mg/0.1 mL (18 mg/3 1.2 mg subcut DAILY PRN FASTING 01/18/23 03/02/23 History mL) subcutaneous pen injector BSG > 150 (Victoza 2-Jayy) lorazepam 0.5 mg tablet 0.5 mg PO Q8H PRN ANXIETY/INSOMNIA 01/18/23 03/02/23 History metformin 850 mg tablet 850 mg PO TIDM 01/18/23 03/02/23 History metoprolol succinate 25 mg 25 mg PO QAM 01/18/23 03/02/23 History tablet,extended release 24 hr mirabegron 50 mg tablet,extended 50 mg PO QAM 01/18/23 03/02/23 History release 24 hr (Myrbetriq) rivaroxaban 2.5 mg tablet (Xarelto) 2.5 mg PO BID 01/18/23 03/02/23 History ropinirole 0.5 mg tablet 0.5 mg PO HS 01/18/23 03/02/23 History sertraline 50 mg tablet 100 mg PO QAM 01/18/23 03/02/23 History tramadol 50 mg tablet 50 - 100 mg PO Q6H PRN Pain 01/18/23 03/02/23 History Lactobacillus acidophilus 250 1,000 mmu cells PO DAILY 03/02/23 03/02/23 History million cell capsule (Probiotic Acidophilus) cranberry fruit concentrate 250 mg 250 mg PO DAILY 03/02/23 03/02/23 History chewable tablet (Azo Cranberry) docusate sodium 100 mg capsule 100 mg PO BID PRN Constipation 03/02/23 03/02/23 History doxycycline hyclate 100 mg capsule 100 mg PO AMHS 03/02/23 03/02/23 History Past Med/Surg History Medical History (Updated 03/02/23 @ 17:46 by Tricia Langley PA-C) Nocturnal hypoxemia due to emphysema currently using 4L O2 at night Carotid artery stenosis Dyslipidemia GERD without esophagitis History of stroke History of nonmelanoma skin cancer Right inguinal hernia HTN (hypertension) Sensorineural hearing loss SVT (supraventricular tachycardia) Urge incontinence Diabetic macular edema Diabetic retinopathy, nonproliferative COPD (chronic obstructive pulmonary disease) Stenosis of right subclavian artery PAD (peripheral artery disease) CAD (coronary artery disease) Type 2 diabetes mellitus with diabetic neuropathy Surgical History (Updated 03/02/23 @ 17:22 by Tricia Langley PA-C) History of cholecystectomy Hx of sinus surgery Status post breast lumpectomy Hx of tubal ligation H/O: hysterectomy H/O cardiac radiofrequency ablation History of right-sided carotid endarterectomy S/P carpal tunnel release S/P femoropopliteal bypass surgery S/P drug eluting coronary stent placement S/P CABG x 3 Family History (Updated 03/02/23 @ 17:17 by Tricia Langley PA-C) Other Cancer Diabetes Hypertension Social History (Updated 03/02/23 @ 17:18 by Tricia Langley PA-C) Smoking Status: Former smoker Smoking End Date: 12/08/21; Hx Alcohol Use: No Hx Substance Use: No Preferred Language: Guatemalan Communication Ability: Effective Binding Folder Machine Required: No Beliefs That Will Affect Care: None Current Living Situation: Spouse Other Information That Helps Us Care for You: No Feels Safe at Home: Yes Safety Concerns: Feels Safe At This Time Assistive Devices: None Review of Systems Review of Systems: All systems reviewed & are unremarkable except as noted in HPI & below Constitutional: + chills, + sweats and + fatigue Ear, Nose, Mouth, Throat: no nasal congestion, no nasal discharge and no sore throat Respiratory: no cough and no dyspnea Cardiovascular: + lightheadedness; no chest pain, no pal pitations and no syncope Gastrointestinal: + nausea and + vomiting; no abdominal pa in and no diarrhea/loose stools Genitourinary: no dysuria and no hematuria Integumentary: + skin ulcer Neurologic: no seizure-like activity, no headache(s) and no confusion Physical Exam Physical Exam: General: awake, alert, NAD, Ox3 HEENT: no scleral icterus Neck: trachea midline Heart: RRR, +II/ systolic murmur Lungs: CTA bilaterally, no W/R/R Abdomen: soft, obese, NT, +BS Extremities: unable to palpate distal LE pulses Skin: right great toe with ulcer on medial aspect, scant serous drainage, mild surrounding erythema, no warmth, minimally tender Neurologic: moving all extremities, no focal deficits, no confusion, no dysarthria Results & Data Results & Data Vital Signs (Past 12 Hours) Vital Signs Temp Pulse Pulse Resp BP BP BP 03/02/23 15:06 102 H 20 115/70 03/02/23 13:18 106 H 17 92/69 L 03/02/23 13:12 106 H 17 03/02/23 12:46 111 H 03/02/23 12:31 110 H 24 03/02/23 12:29 20 03/02/23 12:29 109/73 03/02/23 12:28 110 H 20 107/69 107/69 03/02/23 12:26 112 H 19 68/55 L 03/02/23 12:24 110 H 70/52 L 03/02/23 12:22 03/02/23 12:18 112 H 27 H 03/02/23 12:13 112 H 23 64/46 L 03/02/23 12:11 112 H 22 03/02/23 12:11 112 H 21 62/42 L 03/02/23 11:41 36.5 C 128 H 18 61/48 L Pulse Ox O2 Del Method O2 Flow Rate 03/02/23 15:06 90 Nasal Cannula 4 03/02/23 13:18 100 Nasal Cannula 4 03/02/23 13:12 Nasal Cannula 4 03/02/23 12:46 03/02/23 12:31 99 03/02/23 12:29 98 03/02/23 12:29 03/02/23 12:28 98 Nasal Cannula 4 03/02/23 12:26 98 Nasal Cannula 4 03/02/23 12:24 03/02/23 12:22 Nasal Cannula 4 03/02/23 12:18 97 Nasal Cannula 4 03/02/23 12:13 90 Room Air 03/02/23 12:11 90 Room Air 03/02/23 12:11 90 03/02/23 11:41 96 Room Air Laboratory Results Laboratory Results - last 24 hr 03/02/23 03/02/23 03/02/23 12:03 12:08 13:45 WBC 11.18 H RBC 5.26 Hgb 12.5 Hct 42.1 MCV 80.0 MCH 23.8 L MCHC 29.7 L RDW Std Deviation 52.6 H RDW Coeff of Janice 18.5 H Plt Count 237 MPV 11.2 Immature Gran % (Auto) 0.5 Neut % (Auto) 94.9 Lymph % (Auto) 2.1 [place] % (Auto) 2.0 Eos % (Auto) 0.2 Baso % (Auto) 0.3 Neut # (Auto) 10.61 H Lymph # (Auto) 0.24 L [place] # (Auto) 0.22 Eos # (Auto) 0.02 Baso # (Auto) 0.03 Immature Gran # (Auto) 0.06 Polychromasia 1+ Ovalocytes 1+ PT 10.4 INR 0.9 APTT 23 PTT Ratio 0.8 Sodium 133 L Potassium 4.6 Chloride 99 Carbon Dioxide 24 Anion Gap 10 BUN 16 Creatinine 0.85 Est Cr Clr Drug Dosing 88.3 Est GFR ( Amer) 82.2 Est GFR (Non-Af Amer) 70.9 BUN/Creatinine Ratio 18.8 Glucose 246 H POC Glucose 242 H Lactate 2.3 H* 2.8 H* Calcium 8.8 Magnesium 1.2 L Total Bilirubin 0.5 AST 20 ALT 15 Alkaline Phosphatase 127 H Troponin I High Sens 48.6 H B-Natriuretic Peptide 121 H Total Protein 7.6 Albumin 3.9 Globulin 3.7 Albumin/Globulin Ratio 1.1 Procalcitonin 10.65 H Urine Color Urine Appearance Urine pH Ur Specific [place] Urine Protein Urine Glucose (UA) Urine Ketones Urine Blood Urine Nitrite Urine Bilirubin Urine Urobilinogen Ur Leukocyte Esterase 03/02/23 03/02/23 14:19 14:26 WBC RBC Hgb Hct MCV MCH MCHC RDW Std Deviation RDW Coeff of Janice Plt Count MPV Immature Gran % (Auto) Neut % (Auto) Lymph % (Auto) [place] % (Auto) Eos % (Auto) Baso % (Auto) Neut # (Auto) Lymph # (Auto) [place] # (Auto) Eos # (Auto) Baso # (Auto) Immature Gran # (Auto) Polychromasia Ovalocytes PT INR APTT PTT Ratio Sodium Potassium Chloride Carbon Dioxide Anion Gap BUN Creatinine Est Cr Clr Drug Dosing Est GFR ( Amer) Est GFR (Non-Af Amer) BUN/Creatinine Ratio Glucose POC Glucose Lactate Calcium Magnesium Total Bilirubin AST ALT Alkaline Phosphatase Troponin I High Sens 63.3 H* D B-Natriuretic Peptide Total Protein Albumin Globulin Albumin/Globulin Ratio Procalcitonin Urine Color Yellow Urine Appearance Clear Urine pH 5.0 Ur Specific [place] > 1.045 H Urine Protein Negative Urine Glucose (UA) 3+ H Urine Ketones Negative Urine Blood Negative Urine Nitrite Negative Urine Bilirubin Negative Urine Urobilinogen Negative Ur Leukocyte Esterase Negative Diagnostic Findings Chest X-Ray 03/02/23 11:48 SINGLE VIEW CHEST CLINICAL HISTORY: Sepsis. FINDINGS: An AP, portable, upright chest radiograph is compared to study dated 04/12/2011. The heart is enlarged noting atherosclerotic calcification of the thoracic aorta. There is prominence of the pulmonary vasculature. Chronic elevation right hemidiaphragm is similar to previous. There is bibasilar atelectasis. No pneumothorax is seen. The skeletal structures are osteopenic. The bony thorax is grossly intact. Arthritic change is noted in the shoulders. IMPRESSION: 1. Cardiomegaly with prominence of the pulmonary vasculature. Correlate clinically for evidence of fluid overload/congestive change. 2. No airspace consolidation or large pleural effusion is identified. ACT 112: Negative or not required by law. Electronically signed by: Tani Phan M.D. 03/02/2023 12:26 PM Foot X-Ray 03/02/23 12:20 XR foot RT 2V HISTORY: 67 years-old Female Foot wound COMPARISON: 01/16/2023 TECHNIQUE: 2 views the right foot FINDINGS: The mineralized appearance of the bones with mild to moderate osteoarthritis. Spurring of the calcaneus. Arterial calcifications. Soft tissue swelling with skin ulcer of the medial right great toe. No acute fracture, dislocation or osseous erosion. No opaque foreign body. IMPRESSION: 1. Soft tissue swelling with cutaneous ulcer of the medial right great toe redemonstrated. 2. No acute osseous abnormality. ACT 112: Negative or not required by law. The above report was generated using voice recognition software. It may contain grammatical, syntax or spelling errors. Electronically signed by: Gilbert Alvarenga M.D. 03/02/2023 2:05 PM Chest CTA 03/02/23 12:34 CT angio chest w con CT DOSE: 889.13 mGy.cm HISTORY: 67 years-old Female with dissection, unequal BP L v R. Acute shortness of breath TECHNIQUE: Multiple CTA images of the chest were obtained after the intravenous administration of 118 ml Optiray. Coronal and sagittal MIPS were obtained from the axial data set and were submitted for review. All measurements were obtained according to NASCET criteria. A dose lowering technique was utilized adhering to the principles of ALARA. COMPARISON: Chest radiograph of same day FINDINGS: CTA: Mild cardiomegaly with extensive coronary artery calcifications. No pericardial effusion. Prior median sternotomy. Atherosclerosis of the aorta, however this is not an arterial phase study secondary to suboptimal contrast bolus timing. Within the limitations of the study, there is no aneurysm, dissection, injury or mediastinal hematoma identified. There is approximately 50% luminal narrowing at the origin of the left subclavian artery secondary to calcified plaque with high-grade stenosis at the origin of the right (at least 90%). The opacified pulmonary artery is unremarkable. CT CHEST: No thyroid nodule. Borderline enlarged mediastinal and hilar lymph nodes measure up to approximately 10 mm. No pneumothorax or pleural effusion. Mild pulmonary emphysema with interlobular septal thickening. Mild linear bibasilar consolidation. Mild left apical pleural parenchymal scarring. There are no suspicious pulmonary nodule or mass is identified. The spleen and liver appear mildly enlarged. Cholecystectomy. No acute upper abdominal abnormality. Unremarkable soft tissues. IMPRESSION: 1. Limited exam secondary to phase of contrast timing. No thoracic aortic aneurysm or dissection. 2. Atherosclerosis of the thoracic aorta and origin of the great vessels. There is high-grade stenosis at the origin of the right subclavian artery with approximately 50% stenosis on the left. This finding may account for the difference in upper extremity blood pressure readings. 3. Right hemidiaphragm elevation with bibasilar atelectasis. 4. Cardiomegaly with questioned mild pulmonary edema. 5. Likely physiologic borderline enlarged mediastinal and hilar lymph nodes. ACT 112: Negative or not required by law. The above report was generated using voice recognition software. It may contain grammatical, syntax or spelling errors. Electronically signed by: Gilbert Alvarenga M.D. 03/02/2023 1:33 PM Medications Administered Discontinued Medications Sodium Chloride (Nss) 1,000 mls @ 999 mls/hr IV .Q1H1M YARITZA Stop: 03/02/23 14:00 Last Admin: 03/02/23 15:09 Dose: Not Given Documented By: Infusion: 03/02/23 14:03 Dose: Infused Documented By: Admin: 03/02/23 12:11 Dose: 999 mls/hr Documented By: MAYKEL Cefepime HCl (Maxipime) 2,000 mg in 20 mls @ 5 mls/min IV NOW STA; Protocol Stop: 03/02/23 12:00 Last Admin: 03/02/23 12:16 Dose: 5 mls/min Documented By: SHRUTHI Ioversol (Optiray 320 125ml) 118 ml IV ONCE ONE Stop: 03/02/23 12:55 Last Admin: 03/02/23 12:54 Dose: 118 ml Documented By: ARPITA Norepinephrine Bitartrate (Norepinephrine/D5w 4 Mg/250 Ml) Confirm Administered Dose 4 mg IV .STK-MED ONE Stop: 03/02/23 12:19 Last Admin: 03/02/23 12:24 Dose: 4 mg Documented By: MAYKEL Ondansetron HCl (Ondansetron Inj 2 Mg/Ml 2 Ml Vial) 4 mg IV NOW STA Stop: 03/02/23 11:58 Last Admin: 03/02/23 12:16 Dose: 4 mg Documented By: SHRUTHI Code Status & VTE Plan VTE Prophylaxis Plan VTE Prophylaxis will be ordered: Yes Supervising Physician Co-Signing Physician Notes I have seen and examined the patient and have discussed the case with the provider above. I agree with the assessment and plan as stated. 67-year-old female with significant vasculopathy and diabetes status post CABG in June 19, and PAD. She recently had emergent vascularization of the right lower extremity with postoperative complications. She had a wound at the incision site on the leg as well as an ulceration of the right great toe. This was manipulated by her surgeon yesterday in the office. This morning she awoke with chills and shivering. She was hypotensive on admission. CTA was performed to rule out dissection which was negative aside from some stenosis of the right subclavian artery. She was given fluid resuscitation and started on cefepime and vancomycin. Levophed was considered but quickly discontinued. Patient does not report significant pain however does have some pain from claudication intermittently in the top of her foot. She has notified her surgeon in [facility] Exam revealed a morbidly obese female in no acute distress sitting up on the side of the bed. Her legs did not reveal edema and were warm and well-perfused. I was unable to palpate peripheral pulses however these were obtained by the ER doctor and Doppler for pulses was ordered. She has known difficulty with obtaining pulse checks in the office. Otherwise physical exam as noted above. Continue with MRI of right foot to rule out osteomyelitis. Patient is following with podiatry, Dr. Chisholm who was consulted. Bump troponin is likely secondary to demand ischemia as noted above. Will ensure her echocardiogram is performed to rule out any abnormal wall motion abnormality. Doubt ACS. Replace mag as noted above. Continue with broad-spectrum antibiotics pending culture results. Patient is clinically improved already with treatment in the ER. DO [place]on (5) Type 2 diabetes mellitus with diabetic neuropathy Diabetes mellitus prison insulin use: with prison use Qualified Code(s): E11.40 - Type 2 diabetes mellitus with diabetic neuropathy, unspecified; Z79.4 - intermediate teacher (current) use of insulin (6) CAD (coronary artery disease) Associated angina: without angina Coronary Disease-Associated Artery/Lesion type: three affiliated artery [place] vs. transplanted heart: three affiliated heart Qualified Code(s): I25.10 - Atherosclerotic heart disease of three affiliated coronary artery without angina pectoris (9) COPD (chronic obstructive pulmonary disease) COPD type: emphysema Emphysema type: unspecified Qualified Code(s): J43.9 - Emphysema, unspecified (10) HTN (hypertension) Hypertension type: primary hypertension Qualified Code(s): I10 - Essential (primary) hypertension
[2023-03-02] MEDS ORDERED: CARBOHYDRATES FOR HYPOGLYCEMIA PO PRN ×2 (16:32→17:54)
[2023-03-02] MEDS ORDERED: DEXTROSE 50% 50 ML SYRINGE IV PRN ×2 (16:32→17:54)
[2023-03-02] MEDS ORDERED: GLUCOSE 10 TAB/TUBE PO PRN ×2 (16:32→17:54)
[2023-03-02] MEDS ORDERED: GLUCOSE 40% GEL 15 GM TUBE PO PRN ×2 (16:32→17:54)
[2023-03-02] MEDS ORDERED: GLUCAGON FOR INJ 1 MG VIAL SQ PRN ×2 (16:32→17:54)
[2023-03-02] MEDS ORDERED: VANCOMYCIN CONSULT ACTIVE PRN (16:41)
[2023-03-02] MEDS ORDERED: VANCOMYCIN HCL 2,750 MG in SODIUM CHLORIDE 0.9% 500 ML IV ONE (17:00)
--- NOTE | 2023-03-02 17:09 | Pharmacy Report ---
Pharmacy PK ABX Note - Date of Service March 02, 2023 - Assessment and Plan Assessment 67 year old F receiving IV Vancomycin for treatment of sepsis. Possible SSTI, has a bypass graft which is occluded as per vascular doctor yesterday. She has had nonhealing wounds on her right toe as well as the surgical site from the graft. Blood cultures pending. In Dec 2022, pt presented to the [facility] ED with RLE pain x 3 days. She was found to have ischemic limb with multiple occlusions and was life-flighted to [place] for emergency revascularization on 01/19/23 and discharged on 01/22/23 on doxycycline and cefuroxime until 02/02/23 as well as on rivaroxaban 2.5 mg BID. Plan Vancomycin * Loading dose: 2750 mg IV x 1 * Maintenance dose: 1000 mg IV every 12 hours * Regimen is predicted to achieve target AUC/SRINI of 400-600 mg/L.hr * Vancomycin level to be ordered after pharmacist evaluates patient 03/03/23. Pharmacy will continue to follow and will adjust dose/frequency as necessary. Thank you. Pharmacy has transitioned to AUC monitoring for vancomycin. AUC/SRINI is the preferred PK/PD target and is associated with decreased risk of nephrotoxicity compared to traditional trough targets.
[2023-03-02] MEDS: MAGNESIUM SULFATE / D5W 1 GM/100 ML BAG IV SCH ×3 (17:41→22:21)
[2023-03-02] MEDS ORDERED: traMADol HCL 50 MG TABLET PO PRN (17:54)
[2023-03-02] MEDS ORDERED: ONDANSETRON INJ 2 MG/ML 2 ML VIAL IV PRN (17:54)
[2023-03-02] MEDS ORDERED: ALBUTEROL HFA 8 GM INHALER INH PRN (17:54)
[2023-03-02] MEDS ORDERED: ACETAMINOPHEN 325 MG TAB PO PRN (17:54)
[2023-03-02] MEDS ORDERED: DOCUSATE SODIUM 100 MG CAP PO PRN (17:54)
[2023-03-02] MEDS ORDERED: LORazepam 0.5 MG TAB PO PRN (17:54)
[2023-03-02] MEDS ORDERED: ONDANSETRON INJ 2 MG/ML 2 ML VIAL ONE (17:59)
[2023-03-02] MEDS ORDERED: PROMETHAZINE HCL 12.5 MG in SODIUM CHLORIDE 0.9% 50 ML IV PRN (18:58)
[2023-03-02] MEDS: INSULIN ASPART PER UNIT CHARGE SC SCH ×2 (19:08→22:57)
[2023-03-02] MEDS: LANTUS PER UNIT CHARGE SQ SCH (20:53)
[2023-03-02] MEDS: rOPINIRole HCL 0.25 MG TABLET PO SCH (20:56)
[2023-03-02] MEDS: AMITRIPTYLINE HCL 50 MG TAB PO SCH (20:57)
[2023-03-02] MEDS: GABAPENTIN 300 MG CAP PO SCH (20:58)
[2023-03-02] MEDS ORDERED: INSULIN ASPART PER UNIT CHARGE SC SCH (21:00)
[2023-03-02] MEDS ORDERED: LANTUS PER UNIT CHARGE SQ SCH (21:00)
[2023-03-02] MEDS: RIVAROXABAN 2.5 MG TAB PO SCH (22:22)
--- OUTSIDE RECORDS SUMMARY | 2023-03-02 22:32 | External Medical Summary | Summary of Care ---
Author Name Unknown Organization [facility] Address [address] [place] [address] Phone [phone] Care Team Providers Care [employer] Name Role Phone Jonny Donaldson MD Primary Care Provider + Reason for Visit * Reason Comments Follow Up * Evaluate & Treat - Unlimited Visits (Within 10 days (routine)) - Pending Review Specialty Diagnoses / Procedures Referred By Joy fortune Referred To Contact Urology Diagnoses Hematuria, microscopic ScarlettCristopher MD [address] [place] [address] Referral ID Status Reason Start Date Expiration Date Visits Requested Visits Authorized [id number] Pending Review Specialty Services Required [phone] Encounter Details Date Type Department Care Team (Late st Contact Info) Description 03/01/2023 12:00 PM EST Office Visit Vascular [facility]urg [facility] [address] [place] [address] Elver Gaona CRNP [address] [place] [address] PAD (peripheral artery disease) ([facility])* Allergies Active Allergy Reactions Criticality Noted Date Comments Cephalexin 01/28/1996 rash Doxepin 02/01/2018 Dust 04/04/2001 Nickel Anaphylaxis High 04/04/2001 Paroxetine 04/28/2003 generic only, brand ok Penicillins 03/03/1995 Rash Sulfa Antibiotics 11/27/1994 Rash documented as of this encounter (statuses as of 03/02/2023) Medications Medication Sig Dispensed Refills Start Date End Date Status MerfacUCH ULTRA SYSTEM W/DEVICE KITIndications:DM type 2, goal A1c below 7 Use up to four times a day as directed 1 0 06/10/2009 Active RevoDeals ULTRASOFT LANCETS MISCIndications:DM type 2, goal A1c below 7 for testing blood sugar 4 times per day 250.42 1 Box 11 01/09/2013 Active ASPIRIN EC 81 MG PO TBECIndications:Ty pe II or unspecified type diabetes mellitus with renal manifestations, uncontrolled(250.4 2) ([facility]) Take one pill daily 100 Tab 3 01/28/2014 Active fluticasone (FLONASE) 50 MCG/ACT nasal spray Administer 2 Sprays into each nostril 2 times a day. 18.2 mL 5 10/14/2019 Active Feedzai Ultra Blue In Vitro Strip (Glucose Blood)Indications: Type 2 diabetes mellitus with hemoglobin A1c goal of less than 8.0% ([facility]) Use up to 3 times Daily E11.9 poorly controlled. 200 Strip 11 03/11/2021 Active BD Pen Needle Tanja U/F 32G X 4 MM (Insulin Pen Needle)Indications :Type 2 diabetes mellitus with hemoglobin A1c goal of less than 8.0% ([facility]) USE TO INJECT INSULIN 2-3 times per day 200 Each 3 06/30/2021 Active Ventolin HFA 108 (90 Base) MCG/ACT Inhalation Aerosol SolutionIndication s:Cough,Acute bronchitis, complicated Inhale 2 Puffs by mouth every 4 hours as needed for Cough or Wheezing. Strength: 108 (90 Base) MCG/ACT 18 g 5 04/11/2022 Active Rivaroxaban 2.5 MG Oral Tablet (Xarelto) Take 1 Tablet by mouth in the morning and 1 Tablet before bedtime. 2 Tablet 0 06/01/2022 Active Metoprolol Succinate ER 25 MG Oral Tablet Extended Release 24 Hour (toPROL XL)Indications:HTN , goal below 130/80 Take 1 Tablet by mouth in the morning. 90 Tablet 3 06/01/2022 Active Gabapentin 300 MG Oral Capsule (Neurontin)Indicat ions:Leg cramping,Restless legs syndrome 1 cap at lunch and 1 cap in evening by mouth for restless leg 60 Capsule 5 08/15/2022 Active rOPINIRole HCl 0.5 MG Oral Tablet (Requip)Indication s:RLS (restless legs syndrome) TAKE ONE TABLET BY MOUTH AT BEDTIME AND BEFORE naps 180 Tablet 3 09/28/2022 Active Sertraline HCl 50 MG Oral Tablet (Zoloft)Indication s:Generalized anxiety disorder TAKE TWO TABLETS BY MOUTH EVERY MORNING 180 Tablet 2 10/10/2022 Active Victoza 18 MG/3ML Subcutaneous Solution Pen-injector (Liraglutide)Indic ations:Type 2 diabetes mellitus with hemoglobin A1c goal of less than 8.0% (HCC) INJECT 1.2 MG SUBCUTANEOUSLY DAILY IF FASTING SUGAR IS OVER 150 18 mL 0 11/24/2022 Active Krill Oil 1000 MG Oral Capsule Take 1 Capsule by mouth in the morning. 0 Active Myrbetriq 50 MG Oral Tablet Extended Release 24 Hour (Mirabegron ER) Take 1 Tablet by mouth in the morning. 30 Tablet 11 11/30/2022 Active Estradiol 0.1 MG/GM Vaginal Cream (Estrace) Apply pea sized amount (0.5 gm) vaginally twice a week at bedtime 42.5 g 3 11/30/2022 Active Atorvastatin Calcium 80 MG Oral Tablet (Lipitor)Indicatio ns:Dyslipidemia, goal LDL below 100 TAKE ONE TABLET BY MOUTH EVERY DAY 90 Tablet 3 12/17/2022 Active metFORMIN HCl 850 MG Oral Tablet (Glucophage)Indica tions:Type 2 diabetes mellitus with hemoglobin A1c goal of less than 8.0% (HCC) TAKE ONE TABLET BY MOUTH THREE TIMES DAILY WITH MEALS FOR FOR DIABETES 270 Tablet 1 12/17/2022 Active Insulin Glargine Solostar 100 UNIT/ML Subcutaneous Solution Pen-injector (Basaglar KwikPen)Indication s:Type 2 diabetes mellitus with hemoglobin A1c goal of less than 8.0% (HCC) Inject 54 units once daily 60 mL 3 12/30/2022 Active Amitriptyline HCl 50 MG Oral Tablet (Elavil)Indication s:Other chest pain,Neuralgia TAKE ONE TABLET BY MOUTH EVERY DAY 90 Tablet 1 01/03/2023 Active LORazepam 0.5 MG Oral Tablet (Ativan)Indication s:Anxiety state Take 1 Tablet by mouth every 8 hours as needed for Anxiety or Insomnia. 40 Tablet 0 01/05/2023 Active Jardiance 10 MG Oral Tablet (Empagliflozin)Ind ications:Type 2 diabetes mellitus with hemoglobin A1c goal of less than 8.0% (HCC) TAKE 1 TABLET IN THE MORNING 90 Tablet 1 01/16/2023 Active traMADol HCl 50 MG Oral Tablet (Ultram)Indication s:Sciatica, unspecified laterality Take 1-2 Tablets by mouth every 6 hours as needed (pain). 60 Tablet 0 01/23/2023 Active AZO Cranberry 250-30 MG Oral Tablet Take by mouth daily. 0 Acti ve Probiotic Acidophilus Oral Tablet Chewable Take by mouth daily. 0 Active Ketoconazole 2 % External Cream Apply topically to affected area 2 times a day. Apply to left armpit until rash improved. 30 g 1 02/01/2023 Active NovoLOG FlexPen 100 UNIT/ML Subcutaneous Solution Pen-injector (insulin aspart)Indications :Type 2 diabetes mellitus with hemoglobin A1c goal of less than 8.0% (HCC) Inject 15 Units under the skin in the morning and 15 Units at noon and 15 Units in the evening. Inject with meals. 45 mL 3 02/08/2023 Active Doxycycline Hyclate 100 MG Oral Capsule Take 1 Capsule by mouth in the morning and 1 Capsule before bedtime. 20 Capsule 0 02/24/2023 Active Mupirocin 2 % External Ointment (Bactroban) APPLY A SMALL AMOUNT TO THE AFFECTED AREA BY TOPICAL ROUTE DAILY 0 02/21/2023 Active documented as of this encounter (statuses as of 03/02/2023) Active Problems Problem Noted Date Diagnosed Date Morbid (severe) obesity due to excess calories 1 04/04/2022 Acute lower limb ischemia 01/19/2023 Diabetic foot infection 01/19/2023 COPD, group A, by GOLD 2017 classification 01/09 Overview: Per COPD GOLD Classification Urge incontinence of urine 11/28/2022 S/P CABG x 3 06/01/2022 Overview: KUMAR to LAD, SVG to PL of LCx and PDA of the RCA 04/27/[address] Whyte [facility] Farrukh. History of nonmelanoma skin cancer 05/25/2022 Overview: SCC L cheek 02/2022 History of completed stroke 04/27/2022 Overview: Complication of CABG. Left sided weakness. R MCA stroke . 06/06/22 f/u concern for trickle flow -> ER. History of 2019 novel coronavirus disease (COVID -19) 08/10/2021 Overview: 08/18 Carotid artery stenosis without cerebral infarct ion, left 12/30/2020 Other emphysema 12/06/2020 PAD (peripheral artery disease) 03/04/2020 Carpal tunnel syndrome on right 12/18/2019 Type 2 diabetes mellitus wit h diabetic nephropathy, with long-term current use of insulin 08/21/2019 Diabetic macular edema of both eyes 01/14/2019 Sensorineural hearing loss (SNHL) of both ears 1 04/24/2016 Overview: 02/12 audiogram Diabetic retinopathy, nonproliferative, moderate 05/27/2014 Overview: 05/[address] Montez Q6mo monitoring CAD (coronary artery disease) 06/27/2013 Overview: 06/24/13 +CP-abnormal stress->[facility]. 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 85% Circ (stented RACHAEL), LAD 20%. EF shows inferior hypokinesis EF 45% Stent--Medtronic Resolute INtegrity Zotarolimus stent Circumflex. Heart failure, systolic, due to CAD 06/27/2013 S/P drug eluting coronary stent placement 2013 Inguinal hernia, right 06/27/2013 Overview: Fat containing DM type 2 causing neurological disease 3 SVT (supraventricular tachycardia) 11/23/2011 Overview: 04/20/12 AV Ablation-Dr Jeffrey Campos, [facility] Episode June 2011 around 03/12/12 [place] [facility]-P175 SVT--sched for [place] EP study Routine general medical exam ination at a health care facility 11/11/2011 Overview: 01/18 Carotid US [place] stable 50-69 on left. 10/18 colonoscopy [facility] 3 3-[address] colon-polypoid mucosa mild hyperplastic changes. Rectal polyp= hyperplastic polyp. Dr Juan Mak [facility] (11/19 06/14 Cologuard WNL. Cardiology-[facility]re[facility] [place]. 12/17 Carotid 50-69% left ICA stenosis. Vielka done 07/18. 12/17 TTE normal EF Gr1 Feldman dys. Mild MR/TR. Aortic sclerosis 10/12 colonoscopy-polyps tubular adenomas. VIELKA 1y poor prep needs 2d prep--declined, 05/14 cologuard ordered. August 2014-cont Brilinta PFTs--reduced FEV1 and FVC with a normal obstruction index. Post bronchodilator testing failed to demonstrate a significant improvement in FEV1 or FVC. The total lung capacity is mildly reduced (restricted rather than obstructed. Some of the changes consistent with obesity. No good PFT evidence of COPD ) 05/10 TTE @[place] [id number] EF, mild LVH, Gr1 Feldman Dys 07/09 colonoscopy [facility]oscopy [place]-3 & 6mm polyp--PAth--Tubular adenoma 07/09 [place] TSH & celiac testing WNL 04/11 ER visit [facility] SVT--resolved with adenosine. 03/11 EKG-scanned QTc 414 12/08 Stress echo-normal except small calc. On aortic valve and Gr I feldman dysfxn 05/08 mammo WNL 08/07 scope 2 polyp vielka 3Y S/P LAURIE 2001-PFTs WNL HTN, goal below 130/80 10/17/2011 Type 2 diabetes mellitus with diabetic nephropat hy 03/09/2011 Overview: 05/09-start lantus 11/08-a1c 12.8. Restart glipizide, consider insulin. Consider-- iron/ferritin for RLS 05/08 a1c 11, +microalb, start ACEI Hx on byetta, actos/avandia in past LDL 114/TG 291 Dyslipidemia, goal LDL below 100 02/12/2009 Overview: Per Lipid Taxonomy. Tobacco use disorder 12/02/2008 ADVANCE DIRECTIVE INFORMATION 10/18/2004 Overview: Yes, Patient instructed to provide copy of advance directive for provider to review and to be scanned into Electronic Medical Record NONALLERGIC RHINITIS 11/05/2003 Chronic sinusitis 11/05/2003 DYSFUNCT EUSTACHIAN TUBE 12/11/1999 POST-NASAL DRIP 12/11/1999 GENERALIZED ANXIETY DIS Overview: Conflict with father, family INFORMATION Heartburn LUMBAGO Solitary cyst of breast Type 2 diabetes mellitus wit h hemoglobin A1c goal of less than 8.0% Overview: ICD-10 update of inactive term documented as of this encounter (statuses as of 03/02/2023) Resolved Problems Problem Noted Date Diagnosed Date Resolved Date Perichondritis of auricle 02/08/2013 Overview: 02/08 refer ENT HTN, GOAL BELOW 130/80 03/26/200910/19 Overview: Per HTN Taxonomy. Type 2 diabetes mellitus wit h hemoglobin A1c goal of less than 7.0% 12/25/2008 03/09/2011 Overview: Per Diabetes Taxonomy. ICD-10 update of inactive term Type 2 diabetes mellitus wit h hemoglobin A1c goal of less than 7.0% 11/17/2000 12/25/2008 Overview: Per Diabetes Taxonomy. ICD-10 update of inactive term CHRONIC PHARYNGITIS 12/11/1999 11/11/19 12 HTN, goal below 140/90 03/26 Overview: Per HTN Taxonomy. Dyslipidemia, goal to be determined 02/12/2009 Overview: Per Lipid Taxonomy. documented as of this encounter (statuses as of 03/02/2023) Immunizations Name Administration Dates Next Due COVID-19 mRNA, LNP-s, No Pre serve, 2-Dose Series ([employer]) 01/24/2021,01/04/2021,06/03/2020 Hepatitis B, 20+ yrs 08/27/2009,03/30/2009,02/27 Pneumococcal Conjugate Vacc, 13 Valent (Prevnar) 01/28/2022 Pneumococcal Polysaccharide PPV23 (Pneumovax) 10/20/2020 Seasonal Influenza, PF, 6 M & above, IM , (FluLaval or Fluzone) 11/27/2019,11/01/2018,12/15/2017,10/29 Seasonal Influenza, Quadriva lent Hd (Fluzone Hd) 12/16/2022,12/09/2021,11/10/2020 Seasonal Influenza, Quadriva lent, No Preserve, IM 11/16/2015 Seasonal Influenza, Split, I IV3, With Preserve, Inj 10/29/2014,01/02/2014,11/26/2012,01/27,12/26/2010,12/21/2009,12/03/19 09,12/30/2005 TDAP (age 10 and older)(Boostrix) 04/27/2018 TDAP (age 11 and older)(Adacel) 08/28/2008 Varicella Zoster Vaccine (Adult) 08/06/2015 Zoster Vaccine Recombinant (Shingrix) 08/21/2019 ,05/09/2019 07/18/2019 documented as of this encounter Social History Tobacco Use Types Packs/Day Years Used Date Smoking Tobacco: Former Cigarettes 0.9 40 Q uit: 12/08/2021 Smokeless Tobacco: Never Tobacco Cessation:Counseling Given: No Comments:10/04/2019 smokes 15 cigarettes per day on booklet and patches Alcohol Use Standard Drinks/Week Comments Yes 0 (1 standard drink = 0.6 oz pur e alcohol) very rare PHQ-2 Answer Date Recorded PHQ Adult Total Score 0 12/16/2022 Hunger Vital Sign Answer Date Recorded Within the past 12 months, y ou worried that your food would run out before you got the money to buy more. Never true 12/17/19 23 Within the past 12 months, t he food you bought just didn't last and you didn't have money to get more. Never true 12/16/2022 Sex and Gender Information Value Date Recorded Sex Assigned at Female 05/09/2019 8:57 AM EDT Gender Identity Female 05/09/2019 8:57 AM EDT Sexual Orientation Straight 05/09/2019 8: 57 AM EDT Job Start Date Occupation Industry Not on file Not on file Not on file documented as of this encounter Last Filed Vital Signs Vital Sign Reading Time Taken Comments Blood Pressure 124/72 03/01/2023 11:54 AM EST Pulse 90 03/01/2023 11:54 AM EST Temperature 36.4 C (97.5 F) 03/01/2023 11:[address] Respiratory Rate - - Oxygen Saturation - - Inhaled Oxygen Concentration - - Weight - - Height - - Body Mass Index - - documented in this encounter Functional Status Functional Status Response Date of Assess ment Are you deaf or do you have serious difficulty h earing? No 01/19/2023 Are you blind or do you have serious difficulty seeing, even when wearing glasses? No 01/19/2023 Do you have serious difficul ty walking or climbing stairs? (5 years old or older) Yes 01/19/2023 Do you have difficulty dress ing or bathing? (5 years old or older) No 01/19/2023 Because of a physical, menta l, or emotional condition, do you have difficulty doing errands alone such as visiting a doctor s office or shopping? (15 years old or older) Yes 01/20/20 Cognitive Status Response Date of Assessm ent Because of a physical, menta l, or emotional condition, do you have serious difficulty concentrating, remembering, or making decisions? (5 years old or older) No 01/19/2023 documented as of this encounter Progress Notes * Aracelis Pandey PA-C - 03/01/2023 12:01 PM EST Images from the original note were not included. Date of Service: 03/01/2023 12:02 PM Mariia Liao is a 67 year old female. Referring Physician: Jonny Donaldson MD Chief Complaint: Follow-up of occluded RLE BPG Called in on 02/22/23 with new concerns of red, raised bump along right medial calf surgical incision, which she reports started since last office visit (02/09/23) Offered clinic appt, but couldn't come until 02/24 Bypass found to be occluded 02/24 Reported pain and redness over R medial calf surgical incision line Has improved since initiating doxy on 02/24 Reports R foot pain and numbness/tingling, somewhat improves with hanging foot down, says she has had these symptoms since about 02/22 Reports mild swelling of R leg, wearing tubigrip Reports painting R great toe ulcer with betadine Has MRI scheduled for 03/08/23 (ordered by awning maker) No fever/chills On 02/24 appointment for today made with vein mapping which was discussed with Dr. Enciso Accompanied by . HPI: Former smoker with DM, HTN, dyslipidemia, CAD, CHF, and NICKEL allergy Presented to [facility] ER with non-healing ulcer of right great toe, progressive pain in RLE & SSTI on 01/19/23 Was transferred to [facility], via [facility]. GSV was harvested for prior CABG PTFE graft was not used due to active R foot infection Cryovein was the only option available S/P RCFA => BK Pop BPG w/ cryopreserved vein, R DFA endarterectomy (beyond site of prox anastomosis), and REIA angioplasty 01/19/[address] Rosas. Discharged 01/22/23, on Doxy and Cefuroxime, with stop date 02/02/23, as well as Xarelto 2.5 mg BID PERIPHERAL VASCULAR DISEASE: S/P RCFA => BK Pop Art BPG w/ cryopreserved vein, R DFA endarterectomy (beyond site of prox anastomosis), and REIA angioplasty 01/19/[address] Rosas. Occluded on 02/24. Symptoms of rest pain since02/22 Denies classic vasculogenic claudication Reports non-healing R great toe ulcer CAROTID/SUBCLAVIAN DISEASE: S/P R CEA 05/02/22 @ [facility] Patient denies recent TIA, recent stroke and recent amaurosis fugax. R subclavian artery disease, per RANJITH Had a carotid duplex on 12/21/22 in [place] (Dr. Jeffrey Campos) Wellness Nurse ordered this test, and she suspects everything was stable since she did not here from him; was told he would only notify her if any issues were found on ultrasound Scheduled with Cardiology on 07/03/2023 Current Outpatient Medications Medication Sig Dispense Refill RevoDeals ULTRA SYSTEM W/DEVICE KIT Use up to four times a day as directed [address] [facility] for testing blood sugar 4 times per day 250.42 1 [address] 11 ASPIRIN EC 81 MG PO TBEC Take one pill daily 100 Tab 3 fluticasone (FLONASE) 50 MCG/ACT nasal spray Administer 2 Sprays into each nostril 2 times a day. 18.2 mL 5 OneTouch Ultra Blue In Vitro Strip (Glucose Blood) Use up to 3 times Daily E11.9 poorly controlled.200 Strip 11 BD Pen Needle Tanja U/F 32G X 4 MM (Insulin Pen Needle) USE TO INJECT INSULIN 2-3 times per day 200 Each 3 Ventolin HFA 108 (90 Base) MCG/ACT Inhalation Aerosol Solution Inhale 2 Puffs by mouth every 4 hours as needed for Cough or Wheezing. Strength: 108 (90 Base) MCG/ACT 18 g 5 Rivaroxaban 2.5 MG Oral Tablet (Xarelto) Take 1 Tablet by mouth in the morning and 1 Tablet before bedtime. 2 Tablet 0 Metoprolol Succinate ER 25 MG Oral Tablet Extended Release 24 Hour (toPROL XL) Take 1 Tablet by mouth in the morning. 90 Tablet 3 Gabapentin 300 MG Oral Capsule (Neurontin) 1 cap at lunch and 1 cap in evening by mouth for restless leg 60 Capsule 5 rOPINIRole HCl 0.5 MG Oral Tablet (Requip) TAKE ONE TABLET BY MOUTH AT BEDTIME AND BEFORE naps 180 Tablet 3 Sertraline HCl 50 MG Oral Tablet (Zoloft) TAKE TWO TABLETS BY MOUTH EVERY MORNING 180 Tablet 2 Victoza 18 MG/3ML Subcutaneous Solution Pen-injector (Liraglutide) INJECT 1.2 MG SUBCUTANEOUSLY DAILY IF FASTING SUGAR IS OVER 150 18 mL 0 Krill Oil 1000 MG Oral Capsule Take 1 Capsule by mouth in the morning. Myrbetriq 50 MG Oral Tablet Extended Release 24 Hour (Mirabegron ER) Take 1 Tablet by mouth in the morning. 30 Tablet 11 Estradiol 0.1 MG/GM Vaginal Cream (Estrace) Apply pea sized amount (0.5 gm) vaginally twice a week at bedtime 42.5 g 3 Atorvastatin Calcium 80 MG Oral Tablet (Lipitor) TAKE ONE TABLET BY MOUTH EVERY DAY 90 Tablet 3 metFORMIN HCl 850 MG Oral Tablet (Glucophage) TAKE ONE TABLET BY MOUTH THREE TIMES DAILY WITH MEALSFOR FOR DIABETES 270 Tablet 1 Insulin Glargine Solostar 100 UNIT/ML Subcutaneous Solution Pen-injector (Basaglar KwikPen) Inject 54 units once daily 60 mL 3 Amitriptyline HCl 50 MG Oral Tablet (Elavil) TAKE ONE TABLET BY MOUTH EVERY DAY 90 Tablet 1 LORazepam 0.5 MG Oral Tablet (Ativan) Take 1 Tablet by mouth every 8 hours as needed for Anxiety orInsomnia. 40 Tablet 0 Jardiance 10 MG Oral Tablet (Empagliflozin) TAKE 1 TABLET IN THE MORNING 90 Tablet 1 traMADol HCl 50 MG Oral Tablet (Ultram) Take 1-2 Tablets by mouth every 6 hours as needed (pain). 60 Tablet 0 AZO Cranberry 250-30 MG Oral Tablet Take by mouth daily. Probiotic Acidophilus Oral Tablet Chewable Take by mouth daily. Ketoconazole 2 % External Cream Apply topically to affected area 2 times a day. Apply to left armpit until rash improved. 30 g 1 NovoLOG FlexPen 100 UNIT/ML Subcutaneous Solution Pen-injector (insulin aspart) Inject 15 Units under the skin in the morning and 15 Units at noon and 15 Units in the evening. Inject with meals. 45 mL 3 Doxycycline Hyclate 100 MG Oral Capsule Take 1 Capsule by mouth in the morning and 1 Capsule beforebedtime. 20 Capsule 0 Mupirocin 2 % External Ointment (Bactroban) APPLY A SMALL AMOUNT TO THE AFFECTED AREA BY TOPICAL ROUTE DAILY No current facility-administered medications for this visit. Review of patient's allergies indicates: Allergen Reactions Nickel Anaphylaxis Cephalexin rash Doxepin Dust Paroxetine generic only, brand ok Penicillins Rash Sulfa Antibiotics Rash Patient Active Problem List Diagnosis Code DYSFUNCT EUSTACHIAN TUBE H69.90 POST-NASAL DRIP J06.9 NONALLERGIC RHINITIS J31.0 Chronic sinusitis J32.9 GENERALIZED ANXIETY DIS F41.1 INFORMATION INFO Heartburn R12 LUMBAGO M54.50 Solitary cyst of breast N60.09 ADVANCE DIRECTIVE INFORMATION Tobacco use disorder F17.200 Dyslipidemia, goal LDL below 100 E78.5 Type 2 diabetes mellitus with diabetic nephropathy (HCC) E11.21 HTN, goal below 130/80 I10 Routine general medical examination at a health care facility Z00.00 SVT (supraventricular tachycardia) I47.10 Type 2 diabetes mellitus with hemoglobin A1c goal of less than 8.0% (HCC) E11.9 DM type 2 causing neurological disease (HCC) E11.49 CAD (coronary artery disease) I25.10 Heart failure, systolic, due to CAD I50.20, I25.10 S/P drug eluting coronary stent placement Z95.5 Inguinal hernia, right K40.90 Diabetic retinopathy, nonproliferative, moderate ([facility]) E11.3399 Sensorineural hearing loss (SNHL) of both ears H90.3 Diabetic macular edema of both eyes ([facility]) E11.311 Type 2 diabetes mellitus with diabetic nephropathy, with long-term current use of insulin ([facility]) E11.21, Z79.4 Carpal tunnel syndrome on right G56.01 PAD (peripheral artery disease) ([facility]) I73.9 Other emphysema ([facility]) J43.8 Carotid artery stenosis without cerebral infarction, left I65.22 History of 2019 novel coronavirus disease (COVID-19) Z86.16 History of nonmelanoma skin cancer Z85.828 S/P CABG x 3 Z95.1 History of completed stroke Z86.73 Urge incontinence of urine N39.41 COPD, group A, by GOLD 2017 classification ([facility]) J44.9 Acute lower limb ischemia I99.8 Diabetic foot infection E11.628, L08.9 Morbid (severe) obesity due to excess calories ([facility]) E66.01 Past Medical History: Diagnosis Date Allergic rhinitis Background diabetic retinopathy(362.01) 05/27/201405/[address] Montez Q6mo monitoring Benign neoplasm of colon 07/30/2010 polyps x 2--adenomatous tissue--repeat in 3 yrs , diverticulosis & fair prep-- CAD (coronary artery disease) 06/27/2013 06/24/13 +CP-abnormal stress->[facility]. 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 85% Circ (stented RACHAEL), LAD 20%. EF shows inferior hypokinesis EF 45% Carotid artery stenosis without cerebral infarction, left 12/30/2020 Chronic sinusitis 06/07/2001 Diabetic macular edema of both eyes ([facility]) 01/14/2019 DM type 2, goal A1C 7-8 DM type 2, goal A1c below 7 1998 Dyslipidemia, goal to be determined Generalized anxiety disorder Heart failure, systolic, due to CAD 06/27/2013 Heartburn History of 2019 novel coronavirus disease (COVID-19) 08/10/202108/18 History of completed stroke 04/27/2022 Complication of CABG. Left sided weakness. HTN, goal below 140/90 INFORMATION seasonal affective disorder Inguinal hernia, right 06/27/2013 Fat containing Lumbago Moderate nonproliferative diabetic retinopathy of right eye with macular edema associated with type2 diabetes mellitus (HCC) 05/31/2021 Open wound of trunk 05/2008 s/p LAURIE Pneumonia, organism unspecified(486) 11/1992 Proliferative diabetic retinopathy of left eye without macular edema associated with type 2 diabetes mellitus (HCC) 05/31/2021 S/P CABG x 3 06/01/2022 S/P drug eluting coronary stent placement 06/27/2013 Sensorineural hearing loss (SNHL) of both ears 02/21/2017 Solitary cyst of breast 1991 Past Surgical History: Procedure Laterality Date ABLATE HEART DYSRHYTHM FOCUS 04/20/2012 AV Ablation-Dr Jeffrey Campos, [facility] BREAST LESION,OTHER,EXCISION Left benign BYPASS GRFT OTHER-CAROTID Right 05/02/[address] Oshea [facility] CARDIAC CATH SCANNED RESULT 06/24/2013 +Circ stent RACHAEL. CARPAL TUNNEL SURGERY 08/1992 Carpal Tunnel repair CARPAL TUNNEL SURGERY Left 12/11/2019 NEUROPLASTY MEDIAN NERVE AT CARPAL TUNNEL performed by Pankaj Osorio MD at OR [facility] COLONOSCOPY W/ LESION REMOVAL, SNARE 07/30/2010 polyps x 2--adenomatous tissue--repeat in 3 yrs , diverticulosis & fair prep-- COLONOSCOPY, DIAGNOSTIC (RECTUM) 10/02/2015 adenomatous polyps, diverticulosis, poor prep, repeat 1 yr/[facility] DEEP FEMORAL Right 01/19/2023 DEEP FEMORAL ENDARTERECTOMY performed by Willian Rosas MD at OR [facility] EXPLORATION OF MAXILLARY SINUS 06/07/2001 Sinus Surgery HYSTEROSCOPY W/BIOPSY AND/OR POLYPECTOMY W/WO D&C 02/14/2006 INFORMATION ablation INTRODUCTION OF CATHETER, AORTA 01/19/2023 CATHETER PLACEMENT, AORTA performed by Willian Rosas MD at OR [facility] LAP;OCCULSION OVIDUCTS/DEVICE 1985 LIGATE/CUT OVIDUCT(S) tubal ligation -rings [place] CORONARY ARTERY BYP W/VEIN & ARTERY GRAFT 3 VEIN 04/27/2022 KUMAR to LAD, SVG to PL of LCx and PDA of the RCA 04/27/[address] Whyte [facility]. PULMONARY FUNCTION TEST SCREEN 10/09/2001 normal REMOVE GALLBLADDER 04/1993 Cholecystectomy REPAIR OF NASAL SEPTUM 06/07/2001 Nasal Septum Repair SYNTH BYPASS, FEMORAL-POP Right 01/19/2023 BYPASS GRAFT OTHER THAN VEIN FEMORAL POPLITEAL performed by Willian Rosas MD at [facility] TOTAL ABD HYSTERECTOMY W/WO REMOVAL OF TUBE(S) 06/23/2008 & oopherectomy VAGINAL DELIVERY ONLY VENOGRAM EXTREMITY UNI-FLUOR Right 01/19/2023 IMAGING SUPERVISION & INTERPRETATION EXTREMITY VEIN performed by Willian Rosas MD at [facility] Family History Problem Relation Age of Onset Hypertension Mother Arthritis Mother Diabetes Father diet controlled Diabetes Sister Hypertension Sister Other (uticaria) Sister Cancer Grandfather (Paternal) gi cancer- Cancer Grandmother (Paternal) leukemia Other (anxiety) Grandmother (Paternal) Other (hyperlidemia) Sister Eye Problems Brother glaucoma No Past Hx Brother No Past Hx Daughter Allergies Sister hives Asthma Aunt (Unspecified) Social History Socioeconomic History Marital status: Spouse name: Efrem Number of children: 1 Years of education: 12 Highest education level: Not on file Occupational History Occupation: retired. Employer: [email or web address] Comment: [employer] [facility] Tobacco Use Smoking status: Former Packs/day: 0.90 Years: 40.00 Additional pack years: 0.00 Total pack years: 36.00 Types: Cigarettes Quit date: 12/08/2021 Years since quittin.2 Smokeless tobacco: Never Tobacco comments: 10/04/2019 smokes 15 cigarettes per day on booklet and patches Vaping Use Vaping Use: Never used Substance and Sexual Activity Alcohol use: Yes Comment: very rare Drug use: No Sexual activity: Yes Partners: Male control/protection: Surgical Comment: tubal. +. 1 daughter 28Y Other Topics Concern Service No Blood Transfusions No Caffeine Concern No Occupational Exposure No Hobby Hazards No Sleep Concern No Stress Concern No Weight Concern No Special Diet No Back Care No Exercise Yes Bike Helmet Not Asked Seat Belt Yes Self-Exams Yes Social History Narrative Likes to shop, crafts, yardwork/gardening [employer] [place] INFORMATION ENIVIRONMENTAL HISTORY: House: [place] Type of Heating System: Oil and Forced air Air Conditioning: Yes Room, BR, KIT Basement: Unfinished, Dampness and Dehumidifier Home have cockroaches: No Irritants in the home: Passive Smoke and Scented Candles Patient's bedroom: FLOOR: first TYPE OF LENI: Carpeting Beds: AMOUNT : 1 TYPE OF BEDS: Mattress Pillows: AMOUNT: 3 TYPE OF PILLOWS: Foam Bedroom contains: Minimal items Pets: 1 dog(s) Lives on a farm: No 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, 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 Entered By: Onur Salinas MD 11/05/2003 Social Determinants of Health Financial Resource Strain: Not on file Food Insecurity: No Food Insecurity (12/16/2022) Hunger Vital Sign Worried About Running Out of Food in the Last Year: Never true Ran Out of Food in the Last Year: Never true Transportation Needs: Not on file Physical Activity: Not on file Stress: Not on file Social Connections: Not on file Intimate Partner Violence: Not on file Housing Stability: Not on file Vaping/E-Cigarette Use Vaping/E-Cigarette Use Never User Vaping/E-Cigarette Substances Vaping/E-Cigarette Devices REVIEW OF SYSTEMS: Constitutional: Denies fever/chills Eyes: Denies amaurosis fugax. Cardiovascular: denies chest pain, denies TN, reports CHF, reports CAD s/p PCI in 2013. Respiratory: denies shortness of breath, reports PINEDA. Musculoskeletal: reports arthritis, reports chronic low back pain. Skin: reports R great toe ulcer Neurological: denies TIA, denies CVA Psychiatric: reports anxiety. Endocrine: reports NIDDM, reports hyperlipidemia. GENERAL MULTI-SYSTEM PHYSICAL EXAM: VITAL SIGNS: BP 124/72 (BP Site: Right Arm, BP Position: Sitting, BP Cuff Size: Regular) | Pulse 90 | Temp 36.4 C (97.5 F) (Temporal Artery) | LMP 03/13/2008 GENERAL MULTI-SYSTEM PHYSICAL EXAM: GENERAL: Normal grooming habits, no acute distress and appears stated age. NECK: No masses. R CEA scar RESPIRATORY: respiratory effort normal CARDIOVASCULAR: Mild-moderate RLE edema, no significant LLE edema GASTROINTESTINAL: no tenderness, protuberant PSYCHIATRIC: orientation to time, place and person normal and recent and remote memory normal. EYES: conjunctivae normal. NEUROLOGIC: Motor function grossly intact SKIN: No ulcers of left foot R great toe ulcer with serosanguinous drainage and macerated skin edges. Somewhat sausage-like. PHOTO. R medial calf surgical incision with some serosanguinous drainage. PHOTO R great toe R foot R leg PULSE SCALE: Carotid Right:----Bruit: No Left:----Bruit: Yes Radial Right: 2 Left: 3 Femoral Right: 0 (unable to palpate given large body habitus) Left: 0 (unable to palpate given large body habitus) Popliteal Right: 0, NO doppler signal Left: 0 Dorsalis Pedis Right: 0, monophasic doppler signal Left: 0, multiphasic doppler signal Posterior Tibial Right: 0, NO doppler signal Left: 0, multiphasic doppler signal PULSE SCALE: 4=Aneurysmal; 3=Normal; 2=Diminished; 1=Barely Palpable; 0=Absent DIAGNOSTIC STUDIES: 03/01/23: BUE vein mapping: R ceph 3.9/4.3/4.2/3.5, R basilic 3.6/4.2/3.5, L ceph 4/3.9/4.2/3.3/3.2, L basilic 6.7/4.7/4.4 02/24/23: X-ray R foot/toes: No osteo. No osteolysis or periosteal reaction. No fracture or dislocation. 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 Achilles and plantar calcaneal enthesophytes. 02/24/23: RANJITH: 0.46 / 0.99 ; RLE monophasic waveforms with flat ppg, LLE monophasic waveforms with decreased ppgs 02/24/23: arterial duplex: REIA stent 143/210/207/244, RCFA 187, RDFA 142, R PROJECT ACCOUNTANT - pop bpg occluded, R prox calf area of interest 1.86 cm x 2.02 cm, R prox calf dist anast nooksack runoff 54 The above diagnostic images were directly visualized and independently interpreted by me on 03/01/2023 with results as above 12/23/22 RANJITH: 0.48/0.65, monophasic toe PPGs 10/18/19 CTA aorta/runoff: moderate aortoiliac disease with distal aortic stenosis (no focal high-grade stenosis), bilateral femoral disease, Right SFA occlusion, Left SFA diseased 10/04/19: Exercise doppler: she did have R>L calf claudication while on the treadmill R at rest 0.59/with exercise 0.31 L at rest 0.94/with exercise 0.62 10/04/19: carotid duplex: RENNY 106/25, LICA 162/20, both verts antegrade 11/2017 CT abd/pelv: moderate btrqr-lpxkg-wiacqcc disease bilaterally LABS: Creatinine Results: Lab Results Component Value Date/Time CREATININE - [facility] 0.8 01/21/2023 06:49 AM CREATININE - [facility] 0.7 01/20/2023 05:01 AM CREATININE - [facility] 0.7 01/19/2023 04:44 PM CREATININE - [facility] 0.9 11/21/2019 08:37 AM CREATININE - [facility] 0.9 10/07/2019 10:02 AM CREATININE - [facility] 0.6 06/13/2013 01:11 PM CREATININE, RANDOM URINE - [facility] 22 12/05/2022 02:23 PM CREATININE, RANDOM URINE - [facility] 69 06/25/2021 07:35 AM CREATININE, RANDOM URINE - [facility] 94 07/30/2020 09:08 AM CREATININE, RANDOM URINE - [facility] 38 11/21/2019 08:37 AM CREATININE, RANDOM URINE - [facility] 46 04/16/2014 09:00 AM CREATININE, RANDOM URINE - [facility] 61 11/05/2009 09:28 AM CREATININE-OU[facility]IDE LAB 0.77 08/15/2019 12:00 AM CREATININE-OUTSIDE LAB 0.74 06/14/2018 12:00 AM CREATININE-OUTSIDE LAB 0.68 12/12/2017 12:00 AM Lab Results Component Value Date/Time LDL (CALCULATED)-OUTSIDE LAB 85 08/15/2019 12:00 AM LDL (DIRECT MEASURE)-[facility] LAB 83 06/23/2017 12:00 AM LDL CHOLESTEROL (CALCULATED) - [facility] 64 06/24/2016 12:00 AM LDL CHOLESTEROL (DIRECT MEASURE) - [facility] 86 12/05/2022 02:21 PM LDL CHOLESTEROL (DIRECT MEASURE) - [facility] 222 (H) 11/28/2008 08:56 AM Hemoglobin Results: Lab Results Component Value Date/Time HGB - [facility] 10.2 (L) 01/21/2023 06:49 AM HGB - [facility] 10.1 (L) 01/20/2023 05:01 AM HGB - [facility] 10.6 (L) 01/19/2023 04:44 PM HGB - [facility] 15.5 (H) 11/01/2012 10:00 AM HGB - [facility] 15.4 (H) 06/15/2012 02:07 PM HGB - [facility] 14.5 08/26/2009 12:08 PM Hemoglobin AIC Results: Lab Results Component Value Date/Time HEMOGLOBIN A1C - [facility] 11.7 (H) 12/05/2022 02:21 PM HEMOGLOBIN A1C - [facility] 7.8 (H) 10/29/2021 08:01 AM HEMOGLOBIN A1C - [facility] 9.5 (H) 06/25/2021 07:35 AM HEMOGLOBIN A1C - [facility] 8.5 (H) 11/21/2019 08:37 AM HEMOGLOBIN A1C - [facility] 9.6 (H) 08/03/2015 10:06 AM HEMOGLOBIN A1C - [facility] 12.8 (H) 11/11/2011 03:30 PM The above clinical lab tests were reviewed by me on 03/01/2023. IMPRESSIONS: Occluded R PROJECT ACCOUNTANT --> BK pop BPG, per 02/24/23 duplex. R medial calf surgical incision with area of erythema and tenderness improved R great toe ulcer, non-healing, questionable for osteomyelitis on physical exam, x-ray negative Patent REIA stent and patent R DFA endart, per 02/24/23 duplex S/P RCFA => BK Pop BPG w/ cryopreserved vein, R DFA endarterectomy (beyond site of prox anastomosis), and REIA angioplasty 01/19/[address] Rosas. Asymptomatic R SCA stenosis, per RANJITH. S/P R CEA 05/02/22 @ [facility] Bilateral <50% carotid stenosis, per 2001 carotid duplex. Had carotid duplex completed on 12/21/22 in [place] per pt report, and she believes everything remains stable Followed by Dr. Dr. Jeffrey Campos, Wellness Nurse, in [place] Former smoker. CAD, H/O PCI, s/p CABG x 3, 04/27/22 @ [facility] DM Dyslipidemia, on statin HTN, stable CHF Anaphylactic nickel allergy PLAN: Patient was counseled on the pathophysiology and natural history of PAD Patient has occluded R PROJECT ACCOUNTANT-BK BPG Onset of rest pain was about 02/22/23 per patient Bypass incision much improved in terms of erythema and tenderness once she started doxy on 02/24 Counseled to continue entire course of doxy R great toe remains a concern, especially now that bypass is occluded X-ray 02/24 indicated no osteo 03/08 MRI scheduled to rule in/out osteo With erythema, tunneling, does not probe to bone Patient is aware that, due to toe ulcer and thrombosed bypass, she is at very high risk for amputation BUE vein mapping showed acceptable veins but this would not be ideal Will proceed with angiogram and attempt revasc Patient understands risks and consents Scheduled 03/03/22 Needs PATs 90 min MAC Outpatient Hold novolog, jardiance, and metformin the morning of surgery Hold now until xarelto until after surgery Given patient takes Liraglutide will need clear liquid diet Wound Care Regimen: Wash right leg and foot with warm, soapy water. Pat dry gently. NO SOAKING. [place] R great toe ulcer with betadine and cover with dry dressing, change daily Offload as much as possible Wear slippers when at home Light compression for edema control All BP's L arm for accuracy given R SCA disease Continue ASA 81 mg daily for platelet inhibition Continue Lipitor 80 mg for Pleiotropic effects of statins including improvement of endothelial dysfunction, increased nitric oxide bioavailability, antioxidant properties, inhibition of inflammatory responses, and stabilization of atherosclerotic plaques were discussed. On Xarelto 2.5 mg BID for graft patency, of cryo BPG (which is now occluded) Follow-up 1-2 week post-op with wound check, sooner PRN Follow-up 1 month post-op with RANJITH and graft dup, sooner PRN The patient was seen and examined with Willian Rosas MD. Aracelis Pandey PA-C Vascular and Endovascular Surgery I have reviewed the advanced practitioner's documentation and agree with the plan of care. I acceptthe responsibility for the associated risk. 67 year old female who underwent emergent RLE revasc in late Dec 2022 with R femoral endarterectomy, R EIA TRANSCRIPTION, and R PROJECT ACCOUNTANT to BK pop bypass using cryopreserved conduit. She was seen in clinic last week when I was out of the office with return of rest pain and her bypass was found to be newly occluded on noninvasive testing. At that time she was sent home from the clinic with antibiotics for her right leg wound which appeared infected. She returns today for further evaluation. She states that her rest pain returned several days prior to her clinic appointment last week. She will need an angiogram to attempt to reopen the bypass. If this is unsuccessful, this will still provide information about the state of her distal vascular disease, which is known to be severe. Her revascularization options are limited. She is at very high risk for limb loss and/or major amputation, which we discussed in clinic. Her right first toe wound has not healed, but there is no conclusive evidence of bone involvement on plain radiographs. We discussed that these may not be picking up subtle bone involvement. Toe amputation may be needed, but first we need to address revascularization of the limb. Her revascularization options are limited and made more complicated by her anaphylactic reaction tonickel. This precludes placement of any vascular stents, all of which contain nickel in the alloy. Plan for angiogram of the RLE and possible revascularization in two days after her Xarelto has washed out. The patient was counseled at length regarding the indications for the procedure and the alternatives. I have discussed with the patient that they are at very high risk for the following anticipated complications due to the patients co-morbidities including heart attack, respiratory complications, kidney failure requiring dialysis, bleeding requiring transfusion/re-operation, hemorrhage/thrombosis /aneurysm formation at the site of catheter insertion, clot or blockage of blood flow to the extremities/intestines/kidneys, re-operation for limb ischemia or amputation. I have also explained to the patient that other risks of the procedure include, but are not limitedto, radiation injury, allergic reaction to the contrast, stroke, transfusion reaction, infection, nerve damage, or . The patient understands the seriousness of the situation and would like to proceed with the procedure. The patient has had a thorough medical evaluation and management of symptoms as outlined above. Theplan is to proceed initially with angiography and then immediate intervention based upon the results of the angiogram. I plan on proceeding with an endovascular procedure as the only other alternative would be an invasive open surgical procedure (which the patient understands may still be required). If the lesion(s) are amenable to an endovascular approach, angioplasty will be performed first for appropriate lesions. Stenting is not an option due to her anaphylactic nickel allergy. Will plan on foot debridements/amputations in the future. These additional procedures will involve planned future readmission(s). The [facility] Vascular Surgery Angiography and Endovascular Procedures Booklet was given to the patient. Willian Rosas MD Associate Vascular Surgeon Division of Vascular and Endovascular Surgery documented in this encounter Nursing Notes * Grecia Karimi MED ASSIST - 03/01/2023 11:56 AM EST Reviewed the option of transferring scripts to [facility] pharmacy with patient and / or family. Patient was instructed to not get up on the exam table/exam chair until directed and assisted by their provider; patient is to remain seated in the chair/ wheelchair/ exam table/ exam chair for fall prevention and safety reasons. Patient is aware to have assistance to step down off exam table/exam chair with personnel. Patient voiced full comprehension of instructions. NOLA James documented in this encounter Plan of Treatment Upcoming Encounters Date Type Department Care Team (Latest Contact Info) Description 03/02/2023 10:00 AM EST Laboratory Laboratory [address] [place] [id number] [address] [place] [address] 03/03/2023 10:05 AM EST Hospital Encounter OR [facility], OPERATING ROOM [facility], [place] [address] [place] [address] Willian Rosas MD [address] [place] [address] 03/03/2023 10:05 AM EST - 03/03/2023 12:05 PM EST Surgery OR [facility], OPERATING ROOM [facility], [address] [place] [place] [address] Willian Rosas MD [address], [place] [id number] IMAGING SUPERVISION & INTERPRETATION EXTREMITY UNILATERAL 03/15/2023 11:45 AM EST Office Visit Vascular Surg [facility] [address] [place] [address] Willian Rosas MD [address] [place] [address] 04/05/2023 11:30 AM EST Pharmacy Pharmacy, [facility] [place] [address] [facility] [place] [address] Pharmacist2, [facility] [address] [place] [address] 04/12/2023 11:30 AM EST Appointment Vascular Lab [facility] [address] [place] [address] 04/12/2023 12:30 PM EST Appointment Vascular Lab [facility] [address] [place] [address] 04/12/2023 1:00 PM EST Office Visit Vascular Surg [facility] [place] [address] [place] [address] Willian Rosas MD [address] [place] [address] 06/21/2023 10:15 AM EDT Office Visit Urology, [facility] [address] [facility] [place] [address] William Doe MD [address] [facility] [address] [place] [address] 2023 3:00 PM EDT Office Visit Family Practice [facility] [address] [facility] [place] [address] Jonny Donaldson MD [address] [place] [address] Scheduled Orders Name Type Priority Associated Diagnoses Orde r Schedule CBC Lab Routine PAD (peripheral artery disease) ([facility]) Expected: 03/01/2023 (Approximate), Expires: 04/01/2024 BASIC METABOLIC PANEL Lab Routine PAD (peripheral artery disease) ([facility]) Expected: 03/01/2023 (Approximate), Expires: 04/01/2024 EKG EKG Routine PAD (peripheral artery disease) ([facility]) Expected: 03/01/2023 (Approximate), Expires: 04/01/2024 VASC ANKLE BRACHIAL INDICES WITHOUT PPG (PAD) Medical Imaging Routine PAD (peripheral artery disease) ([facility]) Expected: 04/01/2023 (Approximate), Expires: 04/01/2025 VASC DUPLEX ART LE LMT-GRAFT Medical Imaging Routine PAD (peripheral artery disease) ([facility]) Expected: 04/01/2023 (Approximate), Expires: 04/01/2025 Scheduled Procedures Name Priority Associated Diagnoses Date/Ti me IMAGING SUPERVISION & INTERPRETATION EXTREMITY UNILATERAL PAD (peripheral artery disease) (HCC) 03/03/2023 10:05 AM EST Health Maintenance Due Date Last Done Comments Alpha-1 Antitrypsin 07/27/1973 DXA Scan 08/01/2021 08/01/2016 COVID-19 Vaccine ( season) 2022 01/24/2021, 01/04/2021, 06/03/2020 Mammogram 11/02/2022 11/02/2021, 09/27, 09/11/2019, Additional history exists HbA1c 06/06/2023 12/05/2022, 03/2021, 06/25/2021, Additional history exists Diabetic Eye Exam 10/13/2023 10/12/2022, , 07/01/2021, Additional history exists Albumin/Creatinine Ratio 12/06/2023 023, 06/25/2021, 07/30/2020, Additional history exists B-12 12/06/2023 12/05/2022, 05/29, 11/21/2019, Additional history exists Depression Screening 12/17/2023 12/16/2022 Diabetic Foot Exam 12/17/2023 12/16/2022, 0 10/20/2020, 10/05/2017, Additional history exists O2 ASSESSMENT COMPLETED IN PAST YEAR FOR COPD 01/20/2024 01/19/2023 GFR 01/22/2024 01/21/2023, 12/29, 01/19/2023, Additional history exists DTaP,Tdap,and Td Vaccines (3 - Td or Tdap) 04/27/2028 04/27/2018, 08/28/2008, 11/22/1994 Hepatitis C Screening Completed 06/18/2002 Hepatitis B Completed 08/27/2009, 02/2009, 02/27/2009 Zoster Vaccines Completed 08/21/2019, 04/27, 08/06/2015 Pneumococcal Vaccine: 65+ Years Completed 01/28/2022, 10/20/2020, 11/15/1994 LUNG CANCER SCREENING - USE SMARTSET [id number] Completed 08/23/2022, 11/10/2020 Influenza Vaccine (FLU shot) Completed , 12/09/2021, 11/10/2020, Additional history exists GARDASIL-HPV IMMUNIZATION SERIES Aged Out No longer eligible based on patient's age to complete this topic MENINGOCOCCAL (MENACTRA/MENVEO) Aged Out No longer eligible based on patient's age to complete this topic documented as of this encounter Medical Devices Implanted Type Area Flanger Device Identifier Shelf Expiration Date Model / Serial / Lot Greater Than 80cm, 3mm-8mm Flora, Angiograft Pvd Saphenous Veins, Cryopreserved Implanted:Qty: 1 on 01/19/2023 by Willian Rosas MD at OR [facility] Right: Leg Upper LIFENET 07/29/2026 CV>80 / [id number] / [id number] documented as of this encounter Visit Diagnoses Diagnosis PAD (peripheral artery disease) (HCC)- Primary Peripheral vascular disease, unspecified PAD (peripheral artery disease) (HCC)- Primary Peripheral vascular disease, unspecified PAD (peripheral artery disease) (HCC) Peripheral vascular disease, unspecified documented in this encounter Advance Directives Latest Code Status on File Code Status Date Activated Date Inactivated Comments Full Code 01/19/2023 4:32 PM 01/21/2023 6:11 PM Thi s order reflects the patients wishes and were consensually agreed upon. Question Answer Comments Discussion of Advance Directives occurred with: Patient Code Status History Code Status Date Activated Date Inactivated Comments Full Code 01/19/2023 12:14 AM 01/19/2023 4:32 PM Th is order reflects the patients wishes and were consensually agreed upon. Question Answer Comments Discussion of Advance Directives occurred with: Patient Care Teams [employer] C[employer] Relationship Specialty Start Date End Date Jonny Donaldson MD [address] [place] [id number] PCP - General Family Medicine 05/27/14 documented as of this encounter"
--- OUTSIDE RECORDS SUMMARY | 2023-03-02 22:32 | External Medical Summary | Summary of Care ---
Author Name Unknown Organization [facility] Address [address] [place] [address] Phone [phone] Care Team Providers Care Esthetician Permanent Makeup Artist Name Role Phone Jonny Donaldson MD Primary Care Provider + Reason for Visit * Reason Onset Date Comments Advice 03/02/2023 Encounter Details Date Type Department Care Team (Late st Contact Info) Description 03/02/2023 Telephone Vascular Surg [facility] [address], [place] [phone] Willian Rosas MD [address], [place] [phone] Advice Allergies Active Allergy Reactions Criticality Noted Date Comments Cephalexin 01/28/1996 rash Doxepin 02/01/2018 Dust 04/04/2001 Nickel Anaphylaxis High 04/04/2001 Paroxetine 04/28/2003 generic only, brand ok Penicillins 03/03/1995 Rash Sulfa Antibiotics 11/27/1994 Rash documented as of this encounter (statuses as of 03/02/2023) Medications Medication Sig Dispensed Refills Start Date End Date Status ONETOUCH ULTRA SYSTEM W/DEVICE KITIndications:DM type 2, goal A1c below 7 Use up to four times a day as directed 1 0 06/10/2009 Active ONETOUCH ULTRASOFT LANCETS MISCIndications:DM type 2, goal A1c below 7 for testing blood sugar 4 times per day 250.42 1 [address] 01/09/2013 Active ASPIRIN EC 81 MG PO TBECIndications:Ty pe II or unspecified type diabetes mellitus with renal manifestations, uncontrolled(250.4 2) ([facility]) Take one pill daily 100 Tab 3 01/28/2014 Active fluticasone (FLONASE) 50 MCG/ACT nasal spray Administer 2 Sprays into each nostril 2 times a day. 18.2 mL 5 10/14/2019 Active OneTouch Ultra Blue In Vitro Strip (Glucose Blood)Indications: Type 2 diabetes mellitus with hemoglobin A1c goal of less than 8.0% ([facility]) Use up to 3 times Daily E11.9 poorly controlled. 200 Strip 11 03/11/2021 Active BD Pen Needle Tanja U/F 32G X 4 MM (Insulin Pen Needle)Indications :Type 2 diabetes mellitus with hemoglobin A1c goal of less than 8.0% ([facility]) USE TO INJECT INSULIN 2-3 times [...] hemoglobin A1c goal of less than 8.0% ([facility]) Inject 15 Units under the skin in [...] of the RCA 04/27/[address] Whyte [facility]. History of nonmelanoma skin cancer 05/25/2022 Overview: [...] artery disease) 06/27/2013 Overview: 06/24/13 +CP-abnormal stress->cath @[facility]. 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 85% Circ (stented RACHAEL), LAD 20%. EF shows inferior hypokinesis EF 45% Stent--Medtronic Resolute INtegrity Zotarolimus stent Circumflex. 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 10/18 colonoscopy [facility] 3 3-5 polyps PATH colon-polypoid mucosa mild hyperplastic changes. Rectal polyp= hyperplastic polyp. Dr Juan Mak [facility] (11/19 06/14 Cologuard WNL. Cardiology-Jeffrey Campos [place]. 12/17 Carotid 50-69% left ICA stenosis. Vielka [...] PFT evidence of COPD ) 05/10 TTE @[place] Rdzzaregfn-ybpu-nljfxu EF, mild LVH, Gr1 Feldman Dys 07/09 colonoscopy [facility] [place]-3 & 6mm polyp--PAth--Tubular adenoma 07/09 [place] TSH & celiac testing WNL 04/11 ER visit [facility] SVT--resolved with adenosine. 03/11 EKG-scanned QTc 414 [...] mRNA, LNP-s, No Pre serve, 2-Dose Series (Meteo-Logic) 01/24/2021,01/04/2021,06/03/2020 Hepatitis B, 20+ yrs 08/27/2009,03/30/2009,02/27 Pneumococcal [...] 40 Q uit: 12/08/2021 Smokeless Tobacco: Never Comments:10/04/2019 smokes 15 cigarettes per day on [...] on file documented as of this encounter Functional Status Functional Status Response [...] No 01/19/2023 documented as of this encounter Miscellaneous Notes * Telephone Encounter - Aracelis Pandey PA-C - 03/02/2023 9:33 AM EST Called and spoke to patient and discussed that she could just be sick but due to her toe ulcer and recent concern regarding her bypass incision the best thing to do is to go to the ED to rule out sepsis. She will go ahead and go to the ED. She thanked me for the call FYI Dr. Rosas * Telephone Encounter - Roman Cox OSA - 03/02/2023 8:47 AM EST Patient called stating she was supposed to go for lab work this morning before her surgery scheduled for tomorrow with Dr. Rosas but she was unable to get the lab work completed because she woke up with chills, fever and vomiting. Please advise documented in this encounter Plan of Treatment Upcoming Encounters Date Type Department Care Team (Latest Contact Info) Description 03/03/2023 10:05 AM EST Hospital Encounter OR C, OPERATING ROOM [facility] [address] [place] [address] Willian Rosas MD [address] [place] [address] 03/03/2023 10:05 AM EST - 03/03/2023 12:05 PM EST Surgery OR C, OPERATING ROOM [facility] [address] [place] [address] Willian Rosas MD [address] [place] [address] IMAGING SUPERVISION & INTERPRETATION EXTREMITY UNILATERAL 03/15/2023 11:45 AM EST Office Visit Vascular Surg [facility] [place] [address] [place] [address] Willian Rosas MD [address] [place] [address] 04/05/2023 11:30 AM EST Pharmacy Pharmacy, [facility] [address] [place] [address] Pharmacist2, [facility] [address] 04/12/2023 11:30 AM EST Appointment Vascular Lab [facility] [place] [address] [place] [address] 04/12/2023 12:30 PM EST Appointment Vascular Lab [facility] [place] [address] [place] [address] 04/12/2023 1:00 PM EST Office Visit Vascular [facility], [place] [address] [place] [address] Willian Rosas MD [address] [place] [address] 06/21/2023 10:15 AM EDT Office Visit Urology, [facility] [address] [facility] [place] [address] William Doe MD [address] [address] [place] [address] 2023 3:00 PM EDT Office Visit Family Practice [facility] [address] [facility] [place] [address] Jonny Donaldson MD [address] [place] [address] Scheduled Procedures Name Priority Associated Diagnoses Date/Ti [...] Screening Completed 06/18/2002 Hepatitis B Completed 08/27/2009, /02/2009, 02/27/2009 Zoster Vaccines Completed 08/21/2019, 04/27, 08/06/2015 Pneumococcal Vaccine: 65+ Years Completed 01/28/2022, 10/20/2020, 11/15/1994 LUNG CANCER SCREENING - USE SMARTSET 10903 Completed 08/23/2022, 11/10/2020 Influenza Vaccine (FLU shot) Completed , 12/09/2021, 11/10/2020, Additional history exists GARDASIL-HPV IMMUNIZATION SERIES Aged Out No longer eligible based on patient's age to complete this topic MENINGOCOCCAL (MENACTRA/MENVEO) Aged Out No longer eligible based on patient's age to complete this topic documented as of this encounter Medical Devices Implanted Type Area Senior Construction Project Manager Device Identifier Shelf Expiration Date Model / Serial / Lot Greater Than 80cm, 3mm-8mm Flora, Angiograft Pvd Saphenous Veins, Cryopreserved Implanted:Qty: 1 on 01/19/2023 by Willian Rosas MD at OR [facility] Right: Leg Upper LIFENET 07/29/2026 CV>80 / [id number] / [id number] documented as of this encounter Advance Directives Latest Code Status [...] Advance Directives occurred with: Patient Care Teams Esthetician Permanent Makeup Artist Relationship Specialty Start Date End Date Jonny Donaldson MD [address] [place] [address] PCP - General Family Medicine 05/27/14 documented as of this encounter
--- OUTSIDE RECORDS SUMMARY | 2023-03-02 22:32 | External Medical Summary | Summary of Care ---
Author Name Unknown Organization [facility] Address [address] [place] [address] Phone [phone] Care Team Providers Care Live Truck Technician Name Role Phone Jonny Donaldson MD Primary Care Provider + Encounter Details Date Type Department Care Team (Latest Contact Info) Description 02/24/2023 8:30 AM EST - 02/24/2023 8:59 AM EST Hospital Encounter Vascular Lab [facility] [place] [address] [place] [address] Arrived Discharge Disposition: Home - Self Care Allergies Active Allergy Reactions Criticality Noted Date Comments Cephalexin 01/28/1996 rash Doxepin 02/01/2018 Dust 04/04/2001 Nickel Anaphylaxis High 04/04/2001 Paroxetine 04/28/2003 generic only, brand ok Penicillins 03/03/1995 Rash Sulfa Antibiotics 11/27/1994 Rash documented as of this encounter (statuses as of 02/25/2023) Medications Medication Sig Dispensed Refills Start Date [...] diabetes mellitus with renal manifestations, uncontrolled(250.4 2) ([facility]) Take one pill daily 100 Tab 3 01/28/2014 Active fluticasone (FLONASE) 50 MCG/ACT nasal spray Administer 2 Sprays into each nostril 2 times a day. 18.2 mL 5 10/14/2019 Active OneTouch Ultra Blue In Vitro Strip (Glucose Blood)Indications: Type 2 diabetes mellitus with hemoglobin A1c goal of less than 8.0% ([facility]) Use up to 3 times Daily E11.9 poorly controlled. 200 Strip 11 03/11/2021 Active BD Pen Needle Tanja U/F 32G X 4 MM (Insulin Pen Needle)Indications :Type 2 diabetes mellitus with hemoglobin A1c goal of less than 8.0% ([facility]) USE TO INJECT INSULIN 2-3 times [...] hemoglobin A1c goal of less than 8.0% ([facility]) Inject 15 Units under the skin in the morning and 15 Units at noon and 15 Units in the evening. Inject with meals. 45 mL 3 02/08/2023 Active Doxycycline Hyclate 100 MG Oral Capsule Take 1 Capsule by mouth in the morning and 1 Capsule before bedtime. 20 Capsule 0 02/24/2023 Active documented as of this encounter (statuses as of 02/25/2023) Active Problems Problem Noted Date Diagnosed Date [...] of the RCA 04/27/[address] [facility]. History of nonmelanoma skin cancer 05/25/2022 Overview: [...] artery disease) 06/27/2013 Overview: 06/24/13 +CP-abnormal stress->cath @[facility]. 100% occlusion RCA with left- right [...] 11/23/2011 Overview: 04/20/12 AV Ablation-Dr Jeffrey Campos, [facility] Episode June 2011 around 03/12/12 [place] hosp-P175 SVT--sched for [place] EP study Routine general medical exam ination at a health care facility 11/11/2011 Overview: 01/18 Carotid US [place] stable 50-69 on left. 10/18 colonoscopy [facility] 3 3-[address] colon-polypoid mucosa mild hyperplastic changes. Rectal polyp= hyperplastic polyp. Dr Juan Mak [facility] (11/19 06/14 Cologuard WNL. Cardiology-Jeffrye Campos [place]. 12/17 Carotid 50-69% left ICA stenosis. Vielka [...] PFT evidence of COPD ) 05/10 TTE @[place] Pawdsibmdl-qxob-brtvdd EF, mild LVH, Gr1 Feldman Dys 07/09 colonoscopy [facility] [place]-3 & 6mm polyp--PAth--Tubular adenoma 07/09 [place] TSH & celiac testing WNL 04/11 ER visit [facility] SVT--resolved with adenosine. 03/11 EKG-scanned QTc 414 [...] as of this encounter (statuses as of 02/25/2023) Resolved Problems Problem Noted Date Diagnosed Date [...] as of this encounter (statuses as of 02/25/2023) Immunizations Name Administration Dates Next Due COVID-19 mRNA, LNP-s, No Pre serve, 2-Dose Series (untapt) 01/24/2021,01/04/2021,06/03/2020 Hepatitis B, 20+ yrs 08/27/2009,03/30/2009,02/27 Pneumococcal Conjugate Vacc, 13 Valent (Prevnar) 01/28/2022 Pneumococcal Polysaccharide PPV23 (Pneumovax) 10/20/2020 Seasonal Influenza, PF, 6 M & above, IM , (FluLaval or Fluzone) 11/27/2019,11/01/2018,12/15/2017,10/29 Seasonal Influenza, Quadriva lent Hd (Fluzone Hd) 12/16/2022,12/09/2021,11/10/2020 Seasonal Influenza, Quadriva lent, No Preserve, IM 11/16/2015 Seasonal Influenza, Split, I IV3, With Preserve, Inj 10/29/2014,01/02/2014,11/26/2012,01/27,12/26/2010,12/21/2009,12/03/19,12/30/2005 TDAP (age 10 and older)(Boostrix) 04/27/2018 TDAP [...] money to buy more. Never true 12/17/19 Within the past 12 months, t he [...] No 01/19/2023 documented as of this encounter Plan of Treatment Upcoming Encounters Date Type Department Care Team (Late st Contact Info) Description 03/01/2023 11:00 AM EST Appointment Vascular Lab [facility] [address] [place] [address] 03/01/2023 12:00 PM EST Office Visit Vascular Surg [facility] [address] [place] [address] Elver Gaona CRNP [address] [place] [address] 04/05/2023 11:30 AM EST Pharmacy Pharmacy, [facility] [address] [facility] [place] [address] Pharmacist2, [facility] [address] 06/21/2023 10:15 AM EDT Office Visit Urology, [facility] [address] [place] [address] William Doe MD [address] [facility] [address] [place] [address] 2023 3:00 PM EDT Office Visit Family Practice [facility] [address] [place] [address] Jonny Donaldson MD [address] [place] [address] Health Maintenance Due Date Last Done Comments [...] 11/15/1994 LUNG CANCER SCREENING - USE SMARTSET 18847 Completed 08/23/2022, 11/10/2020 Influenza Vaccine (FLU shot) Completed , 12/09/2021, 11/10/2020, Additional history exists GARDASIL-HPV IMMUNIZATION SERIES Aged Out No longer eligible based on patient's age to complete this topic MENINGOCOCCAL (MENACTRA/MENVEO) Aged Out No longer eligible based on patient's age to complete this topic documented as of this encounter Medical Devices Implanted Type Area Shipwright Apprentice Device Identifier Shelf Expiration Date Model / Serial / Lot Greater Than 80cm, 3mm-8mm Flora, Angiograft Pvd Saphenous Veins, Cryopreserved Implanted:Qty: 1 on 01/19/2023 by Willian Rosas MD at OR [facility] Right: Leg Upper LIFENET 07/29/2026 CV>80 / [id number] / [id number] documented as of this encounter Procedures Procedure Name Priority Date/Time Associated Diagnosis Comments VASC ANKLE BRACHIAL INDICES WITHOUT PPG (PAD) Routine 02/24/2023 1:15 PM EST Diabetic ulcer of toe of right foot associated with type 1 diabetes mellitus, unspecified ulcer stage (HCC) documented in this encounter Results * VASC ANKLE BRACHIAL INDICES WITHOUT PPG (PAD) (02/24/2023 1:15 PM EST) Anatomical Region Laterality Modality Extremity, Ankle, Vascular, Lower Extremity, Mi t Ultrasound Impressions 02/24/2023 4:22 PM EST : RANJITH at rest is 0.46 on the right and 0.99 on the left. For the right lower extremity: Lower extremity Doppler Evaluation is consistent with severe arterial occlusive disease. PPG tracing of the great toe has flat amplitude. For the left lower extremity: Lower extremity Doppler Evaluation is consistent with mild arterial occlusive disease. Great toe pressure is 38. PPG tracing of the great toe has decreased amplitude. Additional comments: Right upper extremity arterial occlusive disease suggested by blood pressure differential. Narrative 02/24/2023 4:22 PM EST VASCULAR LAB RESULTS DATE OF EXAMINATION: 02/24/23 INDICATION: REIA stent a Right common femoral artery to below knee popliteal artery cryopreserved vein bypass ANKLE BRACHIAL INDEX OF THE LOWER EXTREMITIES Immediately before proceeding with the vascular lab procedure reported below, the identity of the patient, the correct exam and the correct procedural site were identified. Continuous wave doppler and appropriate size pressure cuffs were utilized during the examination. Findings: The right and left brachial artery blood pressures are 80 mmHg and 111 mmHg respectively. On the right, the posterior tibial artery waveform is monophasic and has an amplitude which is decreased. . The right dorsalis pedis artery waveform is monophasic and has an amplitude which is decreased. The right peroneal artery waveform is monophasic and has an amplitude which is decreased. The tibial pressures range from 38 mmHg to 61 mmHg. On the left, the posterior tibial artery waveform is monophasic and has an amplitude which is decreased. . The left dorsalis pedis artery waveform is monophasic and has an amplitude which is decreased. . The left peroneal artery waveform is monophasic and has an amplitude which is decreased. The tibial pressures range from 89 mmHg to 110 mmHg. Elver CARMONA [facility] documented in this encounter Advance Directives Latest [...] Advance Directives occurred with: Patient Care Teams Live Truck Technician Relationship Specialty Start Date End Date Jonny Donaldson MD [address] [place] [address] PCP - General Family Medicine 05/27/14 documented as of this encounter
--- OUTSIDE RECORDS SUMMARY | 2023-03-02 22:32 | External Medical Summary | Summary of Care ---
Author Name Unknown Organization [facility] Address [address] [place] [address] Phone [phone] Care Team Providers Care Test Specialist Name Role Phone Jonny Donaldson MD Primary Care Provider + Encounter Details Date Type Department Care Team (Latest Contact Info) Description 02/24/2023 9:00 AM EST - 02/24/2023 2:10 PM EST Hospital Encounter Vascular Lab [facility] [place] [address] [place] [address] Arrived Discharge Disposition: Home - [...] diabetes mellitus with renal manifestations, uncontrolled(250.4 2) ([facility]) Take one pill daily 100 Tab 3 01/28/2014 Active fluticasone (FLONASE) 50 MCG/ACT nasal spray Administer 2 Sprays into each nostril 2 times a day. 18.2 mL 5 10/14/2019 Active OneTouch Ultra Blue In Vitro Strip (Glucose Blood)Indications: Type 2 diabetes mellitus with hemoglobin A1c goal of less than 8.0% ([facility]) Use up to 3 times Daily E11.9 poorly controlled. 200 Strip 11 03/11/2021 Active BD Pen Needle Tanja U/F 32G X 4 MM (Insulin Pen Needle)Indications :Type 2 diabetes mellitus with hemoglobin A1c goal of less than 8.0% ([facility]) USE TO INJECT INSULIN 2-3 times [...] hemoglobin A1c goal of less than 8.0% ([facility]) Inject 15 Units under the skin [...] of the RCA 04/27/[address] Whyte [facility]. History of nonmelanoma skin cancer 05/25/2022 [...] artery disease) 06/27/2013 Overview: 06/24/13 +CP-abnormal stress->cath @[facility]. 100% occlusion RCA with left- right [...] 11/23/2011 Overview: 04/20/12 AV Ablation-Dr Jeffrey Campos, [facility] Episode June 2011 around 03/12/12 [place] hosp-P175 SVT--sched for [place] EP study Routine general medical exam ination at a health care facility 11/11/2011 Overview: 01/18 Carotid US [place] stable 50-69 on left. 10/18 colonoscopy [facility] 3 3-[address] colon-polypoid mucosa mild hyperplastic changes. Rectal polyp= hyperplastic polyp. Dr Juan Mak [facility] (11/19 06/14 Cologuard WNL. Cardiology-Jeffrey Campos [place]. 12/17 Carotid 50-69% left ICA stenosis. Vielka [...] PFT evidence of COPD ) 05/10 TTE @[place] Bauzjxatdv-zbdb-qkacfe EF, mild LVH, Gr1 Feldman Dys 07/09 colonoscopy [facility] [place]-3 & 6mm polyp--PAth--Tubular adenoma 07/09 [place] TSH & celiac testing WNL 04/11 ER visit [facility] SVT--resolved with adenosine. 03/11 EKG-scanned [...] mRNA, LNP-s, No Pre serve, 2-Dose Series (Tripwire) 01/24/2021,01/04/2021,06/03/2020 Hepatitis B, 20+ yrs 08/27/2009,03/30/2009,02/27 Pneumococcal [...] 03/01/2023 11:00 AM EST Appointment Vascular Lab [facility] [address] [place] [address] 03/01/2023 12:00 PM EST Office Visit Vascular Surg [facility] [address] [place] [address] Elver Gaona CRNP [address] [place] [address] 04/05/2023 11:30 AM EST Pharmacy Pharmacy, [facility] 200 [facility] [place] [address] Pharmacist2, [facility] [address] 06/21/2023 10:15 AM EDT Office Visit Urology, [facility] [address] [place] [address] William Doe MD 27 [facility] [address] [place] [address] 2023 3:00 PM EDT Office Visit Family Practice [facility] [address] [place] [address] Jonny Donaldson MD [address] [place] [address] Health Maintenance Due Date Last Done Comments [...] 11/15/1994 LUNG CANCER SCREENING - USE SMARTSET 00122 Completed 08/23/2022, 11/10/2020 Influenza Vaccine (FLU shot) Completed , 12/09/2021, 11/10/2020, Additional history exists GARDASIL-HPV IMMUNIZATION SERIES Aged Out No longer eligible based on patient's age to complete this topic MENINGOCOCCAL (MENACTRA/MENVEO) Aged Out No longer eligible based on patient's age to complete this topic documented as of this encounter Medical Devices Implanted Type Area Roller Repairer Device Identifier Shelf Expiration Date Model / Serial / Lot Greater Than 80cm, 3mm-8mm Flora, Angiograft Pvd Saphenous Veins, Cryopreserved Implanted:Qty: 1 on 01/19/2023 by Willian Rosas MD [place] [facility] Right: Leg Upper LIFENET 07/29/2026 CV>80 / [id number] / [id number] documented as of this encounter Procedures Procedure Name Priority Date/Time Associated Diagnosis Comments VASC DUPLEX ART LE LMT-GRAFT Routine 02/24/2023 1:13 PM EST Diabetic ulcer of toe of right foot associated with type 1 diabetes mellitus, unspecified ulcer stage (HCC) documented in this encounter Results * VASC DUPLEX ART LE LMT-GRAFT (02/24/2023 1:13 PM EST) Anatomical Region Laterality Modality Lower Extremity, Vascular Ultras ound Narrative 02/24/2023 4:21 PM EST VASCULAR LAB RESULTS DATE OF EXAM: 02/24/23 PRESENTING CONDITIONS: REIA stent a Right common femoral artery to below knee popliteal artery cryopreserved vein bypass Immediately before proceeding with the vascular lab procedure reported below, the identity of the patient, the correct exam and the correct procedural site were verified. Molina scale, color flow and spectral doppler were performed for this examination. PHYSICIAN REPORT: LOWER EXTREMITY GRAFT DUPLEX RIGHT LOWER EXTREMITY Right external iliac artery has velocity of 244 cm/sec with a triphasic . Right common femoral artery has velocity of 187 cm/sec with a biphasic waveform. Right deep femoral artery has velocity of 142 cm/sec with a biphasic waveform. Right lower extremity bypass graft has no flow detected The runoff artery has a velocity of 54 cm/sec. CONCLUSIONS: Right lower extremity bypass graft demonstrates occlusion. The right external iliac artery demonstrates 50-69% stenosis. The right common femoral artery demonstrates 50-69% stenosis. Elver BROWNE VASCULAR documented in this encounter Advance Directives [...] Advance Directives occurred with: Patient Care Teams Test Specialist Relationship Specialty Start Date End Date Jonny Donaldson MD [address] [place] [address] PCP - General Family Medicine 05/27/14 documented as of this encounter
--- OUTSIDE RECORDS SUMMARY | 2023-03-02 22:32 | External Medical Summary | Summary of Care ---
Author Name Unknown Organization [facility] Address [address] [place] [address] Phone [phone] Care Team Providers Care Adult Literacy Teacher Name Role Phone Jonny Donaldson MD Primary Care Provider + Encounter Details Date Type Department Care Team (Latest Contact Info) Description 02/24/2023 2:11 PM EST - 02/24/2023 11:59 PM EST Hospital Encounter Radiology, [place] [address] [place] [address] Arrived Discharge Disposition: Home - Self Care [...] with renal manifestations, uncontrolled(250.4 2) ([facility]) Take one pill daily 100 Tab 3 01/28/2014 Active fluticasone (FLONASE) 50 MCG/ACT nasal spray Administer 2 Sprays into each nostril 2 times a day. 18.2 mL 5 10/14/2019 Active OneTouch Ultra Blue In Vitro Strip (Glucose Blood)Indications: Type 2 diabetes mellitus with hemoglobin A1c goal of less than 8.0% ([facility]) Use up to 3 times Daily E11.9 poorly controlled. 200 Strip 11 03/11/2021 Active BD Pen Needle Tanja U/F 32G X 4 MM (Insulin Pen Needle)Indications :Type 2 diabetes mellitus with hemoglobin A1c goal of less than 8.0% ([facility]) USE TO INJECT INSULIN 2-3 times [...] goal of less than 8.0% ([facility]) INJECT 1.2 MG SUBCUTANEOUSLY DAILY IF FASTING [...] goal of less than 8.0% ([facility]) Inject 15 Units under the skin [...] of the RCA 04/27/[address] Whyte [facility]. History of nonmelanoma skin cancer [...] artery disease) 06/27/2013 Overview: 06/24/13 +CP-abnormal stress->cath @[facility]. 100% occlusion RCA with left- right [...] 11/23/2011 Overview: 04/20/12 AV Ablation-Dr Jeffrey Campos, [facility] Episode June 2011 around 03/12/12 [place] hosp-P175 SVT--sched for [place] EP study Routine general medical exam ination at a health care facility 11/11/2011 Overview: 01/18 Carotid US [place] stable 50-69 on left. 10/18 colonoscopy [facility] 3 3-5 polyps PATH colon-polypoid mucosa mild hyperplastic changes. Rectal polyp= hyperplastic polyp. Dr Juan Mak [facility] (11/19 06/14 Cologuard WNL. Cardiology-Jeffrey Campos [place]. 12/17 Carotid 50-69% left ICA stenosis. Vielka [...] PFT evidence of COPD ) 05/10 TTE @[place] Cdwooedpmg-dwje-otdouw EF, mild LVH, Gr1 Feldman Dys 07/09 colonoscopy [facility] Endoscopy [place]-3 & 6mm polyp--PAth--Tubular adenoma 07/09 [place] TSH & celiac testing WNL 04/11 ER visit [facility] SVT--resolved with adenosine. 03/11 EKG-scanned [...] mRNA, LNP-s, No Pre serve, 2-Dose Series (Location) 01/24/2021,01/04/2021,06/03/2020 Hepatitis B, 20+ yrs 08/27/2009,03/30/2009,02/27 Pneumococcal [...] 03/01/2023 11:00 AM EST Appointment Vascular Lab [facility] [address] [place] [address] 03/01/2023 12:00 PM EST Office Visit Vascular Surg [facility] [address] [place] [address] Elver Gaona CRNP [address] [place] [address] 04/05/2023 11:30 AM EST Pharmacy Pharmacy, [facility] [address] [place] [id number] Pharmacist2, [facility] [address] [place] [id number] 06/21/2023 10:15 AM EDT Office Visit Urology, [facility] [address] [address] William Doe MD [address] [facility] [address] [place] [address] 2023 3:00 PM EDT Office Visit Family Practice [facility] [address] [address] Jonny Donaldson MD [address] [place] [address] Health Maintenance Due Date Last Done Comments [...] 11/15/1994 LUNG CANCER SCREENING - USE SMARTSET 30379 Completed 08/23/2022, 11/10/2020 Influenza Vaccine (FLU shot) Completed , 12/09/2021, 11/10/2020, Additional history exists GARDASIL-HPV IMMUNIZATION SERIES Aged Out No longer eligible based on patient's age to complete this topic MENINGOCOCCAL (MENACTRA/MENVEO) Aged Out No longer eligible based on patient's age to complete this topic documented as of this encounter Medical Devices Implanted Type Area Territory Outside Sales Manager Device Identifier Shelf Expiration Date Model / Serial / Lot Greater Than 80cm, 3mm-8mm Flora, Angiograft Pvd Saphenous Veins, Cryopreserved Implanted:Qty: 1 on 01/19/2023 by Willian Rosas MD at OR [facility] Right: Leg Upper LIFENET 07/29/2026 CV>80 / [id number] / [id number] documented as of this encounter Procedures Procedure Name Priority Date/Time Associated Diagnosis Comments XR TOES 2 OR MORE VIEWS Routine 02/24/2023 2:31 PM EST PAD (peripheral artery disease) (HCC) Skin ulcer of right great toe, unspecified ulcer stage (HCC) XR FOOT 3 OR MORE VIEWS Routine 02/24/2023 2:31 PM EST PAD (peripheral artery disease) (HCC) Skin ulcer of right great toe, unspecified ulcer stage (HCC) documented in this encounter Results * XR TOES 2 OR MORE VIEWS (02/24/2023 2:31 PM EST) Anatomical Region Laterality Modality Lower Extremity Digital Radiogra phy 02/24/2023 3:26 PM EST Impressions 02/24/2023 3:23 PM EST IMPRESSION No osteomyelitis. Narrative 02/24/2023 3:23 PM EST EXAM XR FOOT 3 OR MORE VIEWS; XR TOES 2 OR MORE VIEWS-02/24/2023 2:31 pm HISTORY R great toe ulcer, rule out osteomyelitis COMPARISON Radiograph 01/19/2023 TECHNIQUE Three radiographs right foot. Three radiographs right toes. FINDINGS No osteolysis or periosteal reaction. No fracture or dislocation. 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 Achilles and plantar calcaneal enthesophytes. Procedure Note Rodney Flanagan MD - 02/24/2023 EXAM XR FOOT 3 OR MORE VIEWS; XR TOES 2 OR MORE VIEWS-02/24/2023 2:31 pm HISTORY R great toe ulcer, rule out osteomyelitis COMPARISON Radiograph 01/19/2023 TECHNIQUE Three radiographs right foot. Three radiographs right toes. FINDINGS No osteolysis or periosteal reaction. No fracture or dislocation. Mildosteoarthritis 1st MTP joint and midfoot. Achilles and plantar calcanealenthesophytes. IMPRESSION IMPRESSION No osteomyelitis. [facility] PA-C RADIOLOGY ( RAD GENERAL) * XR FOOT 3 OR MORE VIEWS (02/24/2023 2:31 PM EST) Anatomical Region Laterality Modality Foot, Lower Extremity Digital Ra diography 02/24/2023 3:26 PM EST Impressions 02/24/2023 3:23 PM EST IMPRESSION No osteomyelitis. Narrative 02/24/2023 3:23 PM EST EXAM XR FOOT 3 OR MORE VIEWS; XR TOES 2 OR MORE VIEWS-02/24/2023 2:31 pm HISTORY R great toe ulcer, rule out osteomyelitis COMPARISON Radiograph 01/19/2023 TECHNIQUE Three radiographs right foot. Three radiographs right toes. FINDINGS No osteolysis or periosteal reaction. No fracture or dislocation. 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 Achilles and plantar calcaneal enthesophytes. Procedure Note Rodney Flanagan MD - 02/24/2023 EXAM XR FOOT 3 OR MORE VIEWS; XR TOES 2 OR MORE VIEWS-02/24/2023 2:31 pm HISTORY R great toe ulcer, rule out osteomyelitis COMPARISON Radiograph 01/19/2023 TECHNIQUE Three radiographs right foot. Three radiographs right toes. FINDINGS No osteolysis or periosteal reaction. No fracture or dislocation. Mildosteoarthritis 1st MTP joint and midfoot. Achilles and plantar calcanealenthesophytes. IMPRESSION IMPRESSION No osteomyelitis. Evelyn [employer] [facility] PA-C RADIOLOGY ( RAD GENERAL) documented in this encounter Advance Directives Latest [...] Advance Directives occurred with: Patient Care Teams Adult Literacy Teacher Relationship Specialty Start Date End Date Jonny Donaldson MD [address] [address] PCP - General Family Medicine 05/27/14 documented as of this encounter
--- OUTSIDE RECORDS SUMMARY | 2023-03-02 22:32 | External Medical Summary | Summary of Care ---
Author Name Unknown Organization [facility] Address [address] [place] [address] Phone [phone] Care Team Providers Care Stock Clerk Name Role Phone Jonny Donaldson MD Primary Care Provider + Encounter Details Date Type Department Care Team (Late st Contact Info) Description 03/01/2023 Telephone Vascular Surg [facility] [address] [place] [address] Aracelis Pandey PA-C [address] [place] [address] Allergies Active Allergy Reactions Criticality Noted Date Comments Cephalexin 01/28/1996 rash Doxepin 02/01/2018 Dust 04/04/2001 Nickel Anaphylaxis High 04/04/2001 Paroxetine 04/28/2003 generic only, brand ok Penicillins 03/03/1995 Rash Sulfa Antibiotics 11/27/1994 Rash documented as of this encounter (statuses as of 03/01/2023) Medications Medication Sig Dispensed Refills Start Date [...] diabetes mellitus with renal manifestations, uncontrolled(250.4 2) ([facility]) Take one pill daily 100 Tab 3 01/28/2014 Active fluticasone (FLONASE) 50 MCG/ACT nasal spray Administer 2 Sprays into each nostril 2 times a day. 18.2 mL 5 10/14/2019 Active OneTouch Ultra Blue In Vitro Strip (Glucose Blood)Indications: Type 2 diabetes mellitus with hemoglobin A1c goal of less than 8.0% ([facility]) Use up to 3 times Daily E11.9 poorly controlled. 200 Strip 11 03/11/2021 Active BD Pen Needle Tanja U/F 32G X 4 MM (Insulin Pen Needle)Indications :Type 2 diabetes mellitus with hemoglobin A1c goal of less than 8.0% ([facility]) USE TO INJECT INSULIN 2-3 times per [...] hemoglobin A1c goal of less than 8.0% ([facility]) Inject 15 Units under the skin in [...] as of this encounter (statuses as of 03/01/2023) Active Problems Problem Noted Date Diagnosed Date [...] of the RCA 04/27/[address] Whyte [facility]. History of nonmelanoma skin [...] artery disease) 06/27/2013 Overview: 06/24/13 +CP-abnormal stress->cath @[facility]. 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 85% Circ (stented RACHAEL), LAD 20%. EF shows inferior hypokinesis EF 45% Stent--Medtronic Resolute INtegrity Zotarolimus stent Circumflex. 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 Episode June 2011 around 03/12/12 [place] hosp-P175 SVT--sched for [place] EP study Routine general medical exam ination at a health care facility 11/11/2011 Overview: 01/18 Carotid US [place] stable 50-69 on left. 10/[address] [facility] 3 3-5 polyps PATH colon-polypoid mucosa mild hyperplastic changes. Rectal polyp= hyperplastic polyp. Dr Juan Mak [facility] (11/19 06/14 Cologuard WNL. Cardiology-Jeffrey Campos [place]. 12/17 Carotid 50-69% left ICA stenosis. Vielka [...] PFT evidence of COPD ) 05/10 TTE @[place] Ocqnkkkpjf-dovw-nrxpst EF, mild LVH, Gr1 Feldman Dys 07/09 colonoscopy [facility] Endoscopy [place]-3 & 6mm polyp--PAth--Tubular adenoma 07/09 [place] TSH & celiac testing WNL 04/11 ER visit [facility] SVT--resolved with adenosine. 03/11 EKG-scanned QTc 414 [...] as of this encounter (statuses as of 03/01/2023) Resolved Problems Problem Noted Date Diagnosed Date [...] as of this encounter (statuses as of 03/01/2023) Immunizations Name Administration Dates Next Due COVID-19 mRNA, LNP-s, No Pre serve, 2-Dose Series (Semblee_) 01/24/2021,01/04/2021,06/03/2020 Hepatitis B, 20+ yrs 08/27/2009,03/30/2009,02/27 Pneumococcal [...] Telephone Encounter - Aracelis Pandey PA-C - 03/01/2023 3:32 PM EST Looks like we requested imaging from most recent carotid duplex on 02/24. Just routing to make sure I review this once received Thanks documented in this encounter Plan of Treatment Upcoming Encounters Date Type Department Care Team (Latest Contact Info) Description 03/01/2023 4:30 PM EST Laboratory Laboratory [address] [place] [phone] [place] [address] 03/03/2023 10:05 AM EST Hospital Encounter [facility], OPERATING ROOM [facility] [address] [place] [address] Willian Rosas MD [address] [place] [address] 03/03/2023 10:05 AM EST - 03/03/2023 12:05 PM EST Surgery OR [facility], O[facility]ATING [facility] [address] [place] [address] Willian Rosas MD [address] [place] [address] IMAGING SUPERVISION & INTERPRETATION EXTREMITY UNILATERAL 03/15/2023 11:45 AM EST Office Visit Vascular Surg [facility] [address] [place] [address] Willian Rosas MD [address] [place] [address] 04/05/2023 11:30 AM EST Pharmacy Pharmacy, [facility] [address] [place] [address] Pharmacist2, [facility] [address] [facility] [place] [address] 04/12/2023 11:30 AM EST Appointment Vascular Lab [address] [address] 04/12/2023 12:30 PM EST Appointment Vascular Lab [address] [address] 04/12/2023 1:00 PM EST Office Visit Vascular Surg [address] [address] Willian Rosas MD [address] [place] [address] 06/21/2023 10:15 AM EDT Office Visit Urology, [facility] [address] [facility] [address] William Doe MD [address] [place] [address] 2023 3:00 PM EDT Office Visit Family Practice [facility] [address] [facility] [place] [address] Jonny Donaldson MD [address] [facility] [place] [address] Scheduled Procedures Name Priority Associated Diagnoses Date/Ti me IMAGING SUPERVISION & INTERPRETATION EXTREMITY UNILATERAL PAD (peripheral artery disease) (HCC) 03/03/2023 10:05 AM EST Health Maintenance Due Date Last Done Comments Alpha-1 Antitrypsin 07/27/1973 DXA Scan 08/01/2021 08/01/2016 COVID-19 Vaccine ( season) 2022 01/24/2021, 01/04/2021, 06/03/2020 Mammogram 11/02/2022 11/02/2021, 09/27, 09/11/2019, Additional history exists HbA1c 06/06/2023 12/05/2022, 0903/2021, 06/25/2021, Additional history exists Diabetic Eye Exam [...] Screening Completed 06/18/2002 Hepatitis B Completed 08/27/2009, 0202/2009, 02/27/2009 Zoster Vaccines Completed 08/21/2019, 04/27, 08/06/2015 Pneumococcal Vaccine: 65+ Years Completed 01/28/2022, 10/20/2020, 11/15/1994 LUNG CANCER SCREENING - USE SMARTSET 95602 Completed 08/23/2022, 11/10/2020 Influenza Vaccine (FLU shot) Completed , 12/09/2021, 11/10/2020, Additional history exists GARDASIL-HPV IMMUNIZATION SERIES Aged Out No longer eligible based on patient's age to complete this topic MENINGOCOCCAL (MENACTRA/MENVEO) Aged Out No longer eligible based on patient's age to complete this topic documented as of this encounter Medical Devices Implanted Type Area Pacs Administrator Device Identifier Shelf Expiration Date Model / Serial / Lot Greater Than 80cm, 3mm-8mm Flora, Angiograft Pvd Saphenous Veins, Cryopreserved Implanted:Qty: 1 on 01/19/2023 by Willian Rosas MD at OR [facility] Right: Leg Upper LIFENET 07/29/2026 CV>80 / [id number] / [id number] documented as of this encounter Advance [...] Advance Directives occurred with: Patient Care Teams Stock Clerk Relationship Specialty Start Date End Date Jonny Donaldson MD [address] [place] [address] PCP - General Family Medicine 05/27/14 documented as of this encounter
--- OUTSIDE RECORDS SUMMARY | 2023-03-02 22:33 | External Medical Summary | Summary of Care ---
Author Name Unknown Organization [facility] Address [address] [place] [address] Phone [phone] Care Team Providers Care Mailing Section Clerk Name Role Phone Jonny Donaldson MD Primary Care Provider + Reason for Visit * Reason Onset Date Comments Advice 02/22/2023 Encounter Details Date Type Department Care Team (Late st Contact Info) Description 02/22/2023 Telephone Vascular Surg [facility] [address], [place] [id number] Services, [facility] [address] [place] [address] Advice Allergies Active Allergy Reactions Criticality Noted Date Comments Cephalexin 01/28/1996 rash Doxepin 02/01/2018 Dust 04/04/2001 Nickel Anaphylaxis High 04/04/2001 Paroxetine 04/28/2003 generic only, brand ok Penicillins 03/03/1995 Rash Sulfa Antibiotics 11/27/1994 Rash documented as of this encounter (statuses as of 02/22/2023) Medications Medication Sig Dispensed Refills Start Date End Date Status [employer] AssetTOUCH ULTRA SYSTEM W/DEVICE KITIndications:DM type 2, goal [...] diabetes mellitus with renal manifestations, uncontrolled(250.4 2) ([facility]) Take one pill daily 100 Tab 3 01/28/2014 Active fluticasone (FLONASE) 50 MCG/ACT nasal spray Administer 2 Sprays into each nostril 2 times a day. 18.2 mL 5 10/14/2019 Active OneTouch Ultra Blue In Vitro Strip (Glucose Blood)Indications: Type 2 diabetes mellitus with hemoglobin A1c goal of less than 8.0% ([facility]) Use up to 3 times Daily E11.9 poorly controlled. 200 Strip 11 03/11/2021 Active BD Pen Needle Tanja U/F 32G X 4 MM (Insulin Pen Needle)Indications :Type 2 diabetes mellitus with hemoglobin A1c goal of less than 8.0% ([facility]) USE TO INJECT INSULIN 2-3 times per [...] hemoglobin A1c goal of less than 8.0% ([facility]) Inject 15 Units under the skin in the morning and 15 Units at noon and 15 Units in the evening. Inject with meals. 45 mL 3 02/08/2023 Active documented as of this encounter (statuses as of 02/22/2023) Active Problems Problem Noted Date Diagnosed Date [...] of the RCA 04/27/[address] [facility]. History of nonmelanoma skin cancer [...] disease) 06/27/2013 Overview: 06/24/13 +CP-abnormal stress->cath [facility]. 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 85% Circ (stented RACHAEL), LAD 20%. EF shows inferior hypokinesis EF 45% Stent--Medtronic Resolute INtegrity Zotarolimus stent Circumflex. 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 10/18 colonoscopy [facility] 3 3-5 polyps PATH colon-polypoid mucosa mild hyperplastic changes. Rectal polyp= hyperplastic polyp. Dr Juan Mak [facility] (11/19 06/14 Cologuard WNL. Cardiology-Jeffrey Campos [facility]. 12/17 Carotid 50-69% left ICA stenosis. Vielka [...] PFT evidence of COPD ) 05/10 TTE @[facility] Kobaznwmmh-kbwv-uutrvg EF, mild LVH, Gr1 Feldman Dys 07/09 colonoscopy [facility]-3 & 6mm polyp--PAth--Tubular adenoma 07/09 [facility] TSH & celiac testing WNL 04/11 ER visit [facility] SVT--resolved with adenosine. 03/11 EKG-scanned QTc 414 12/08 Stress echo-normal except small calc. On aortic valve and Gr I feldman dysfxn 05/08 mammo WNL 08/07 scope 2 polyp vileka 3Y S/P LAURIE 2001-PFTs WNL HTN, goal [...] as of this encounter (statuses as of 02/22/2023) Resolved Problems Problem Noted Date Diagnosed Date [...] as of this encounter (statuses as of 02/22/2023) Immunizations Name Administration Dates Next Due COVID-19 mRNA, LNP-s, No Pre serve, 2-Dose Series ([employer]) 01/24/2021,01/04/2021,06/03/2020 Hepatitis B, 20+ yrs 08/27/2009,03/30/2009,02/27 Pneumococcal Conjugate Vacc, 13 Valent (Prevnar) 01/28/2022 Pneumococcal Polysaccharide PPV23 (Pneumovax) 10/20/2020,11/15/1994 Seasonal Influenza, PF, 6 M & above, IM , (FluLaval or Fluzone) 11/27/2019,11/01/2018,12/15/2017,10/29 Seasonal Influenza, Quadriva lent Hd (Fluzone Hd) 12/16/2022,12/09/2021,11/10/2020 Seasonal Influenza, Quadriva lent, No Preserve, IM 11/16/2015 Seasonal Influenza, Split, I IV3, With Preserve, Inj 10/29/2014,01/02/2014,11/26/2012,01/27,12/26/2010,12/21/2009,12/03/19,12/30/2005,11/27/1994,02/27/1993 TD - Tetanus/Diptheria (ADULT) 11/22/1994 TDAP (age 10 and older)(Boostrix) 04/27/2018 TDAP [...] encounter Miscellaneous Notes * Telephone Encounter - Anya Bullock CRNP - 02/22/2023 3:31 PM EST Would need to see patient to evaluate the incision prior to starting an antibiotic. Please offer patient appt for tomorrow on schedule please. Bypass with cryopreserved vein, higher risk of infection. Please call and recommend appt for tomorrow. thanks * Telephone Encounter - Sammi Leal LPN - 02/22/2023 3:23 PM EST Pt has surgery with Dr. Rosas on 01/19/23 Procedure: Right common femoral artery to below knee popliteal artery cryopreserved vein bypass Right deep femoral endarterectomy, beyond the site of our bypass proximal anastomosis (common femoral endarterectomy also performed as part of the revascularization) Right lower extremity angiogram with introduction of catheter into the aorta Percutaneous transluminal angioplasty of the right external iliac artery using a 6 mm angioplasty balloon Supervision and interpretation of all films and imaging related to the procedure I called and spoke with the patient. She states it is on the incision on her leg and he has developed maybe a few days ago. Did notice that she was having some pain and discomfort. Now she has a red raised bump that looks like it is thesize of a half dollar. She also states that the to of the incision where the bump is the middle of the incision is dark purple and is red around it. She denies any fevers. She also stated that it look s like something is going to pop out of it. She states the home health nurse was in and looked at it and told her to call us to see if we wanted to start an antibiotic. Please advise. Sammi Leal LPN 02/22/2023 3:27 PM * Telephone Encounter - Tammie Joy OSA - 02/22/2023 1:50 PM EST Pt had surgery with Dr. Rosas on 01/19, pt states that where one of her incisions is, it has becomeround/very red/bump that is ready to burst open. Visiting nurse wondering if pt should go on an antibiotic or what would be recommended. Please contact pt documented in this encounter Plan of Treatment Upcoming Encounters Date Type Department Care Team (Late st Contact Info) Description 03/01/2023 10:30 AM EST Appointment Vascular Lab [address] [address] 03/01/2023 11:00 AM EST Appointment Vascular Lab [address] [address] 03/01/2023 12:00 PM EST Appointment Vascular Lab [facility], [address] [address] 03/01/2023 12:15 PM EST Office Visit Vascular Surg [address] [address] Willian Rosas MD [address] [place] [address] 04/05/2023 11:30 AM EST Pharmacy Pharmacy, [facility] [address] [facility] [place] [address] Pharmacist2, [facility] [address] [facility] [place] [address] 06/21/2023 10:15 AM EDT Office Visit Urology, [facility] [address] [facility] [place] [address] William Doe MD [address] [facility] [address] [place] [address] 2023 3:00 PM EDT Office Visit Family Practice [facility] [address] [place] [address] Jonny Donaldson MD [address] [place] [address] Health Maintenance Due Date Last Done Comments [...] 11/15/1994 LUNG CANCER SCREENING - USE SMARTSET [id number] Completed 08/23/2022, 11/10/2020 Influenza Vaccine (FLU shot) Completed , 12/09/2021, 11/10/2020, Additional history exists GARDASIL-HPV IMMUNIZATION SERIES Aged Out No longer eligible based on patient's age to complete this topic MENINGOCOCCAL (MENACTRA/MENVEO) Aged Out No longer eligible based on patient's age to complete this topic documented as of this encounter Medical Devices Implanted Type Area Geological Manager Device Identifier Shelf Expiration Date Model / Serial / Lot Greater Than 80cm, 3mm-8mm Flora, Angiograft Pvd Saphenous Veins, Cryopreserved Implanted:Qty: 1 on 01/19/2023 by Willian Rosas [place] [facility] [place]: Leg Upper LIFENET 07/29/2026 CV>80 / [id number] / [id number] documented as of this encounter Advance [...] Advance Directives occurred with: Patient Care Teams Mailing Section Clerk Relationship Specialty Start Date End Date Jonny Donaldson MD [address] [place] [address] PCP - General Family Medicine 05/27/14 documented as of this encounter
--- OUTSIDE RECORDS SUMMARY | 2023-03-02 22:33 | External Medical Summary | Summary of Care ---
Author Name Unknown Organization [facility] Address [address] [place] [address] Phone [phone] Care Team Providers Care Hostel Manager Name Role Phone Jonny Donaldson MD Primary Care Provider + Reason for Visit * Reason Comments Follow Up Encounter Details Date Type Department Care Team (Late st Contact Info) Description 02/24/2023 11:00 AM EST Office Visit Vascular Surg [facility], Era [address], [place] [id number] Elver Gaona CRNP [address] [place] [address] PAD (peripheral artery disease) ([facility])*; Skin ulcer of right great toe, unspecified ulcer stage ([facility]) Allergies Active Allergy Reactions Criticality Noted Date Comments Cephalexin 01/28/1996 rash Doxepin 02/01/2018 Dust 04/04/2001 Nickel Anaphylaxis High 04/04/2001 Paroxetine 04/28/2003 generic only, brand ok Penicillins 03/03/1995 Rash Sulfa Antibiotics 11/27/1994 Rash documented as of this encounter (statuses as of 02/24/2023) Medications Medication Sig Dispensed Refills Start Date End Date Status [employer] SYSTEM W/DEVICE KITIndications:DM type 2, goal A1c [...] as of this encounter (statuses as of 02/24/2023) Active Problems Problem Noted Date Diagnosed Date [...] of the RCA 04/27/[address] [facility]. History of nonmelanoma skin cancer 05/25/2022 [...] artery disease) 06/27/2013 Overview: 06/24/13 +CP-abnormal stress->cath @[facility]. 100% occlusion RCA with left- right [...] 11/23/2011 Overview: 04/20/12 AV Ablation-Dr Jeffrey Campos, [facility] Episode June 2011 around 03/12/12 [facility]-[id number] SVT--sched for [facility] EP study Routine general medical exam ination at a health care facility 11/11/2011 Overview: 01/18 Carotid US [facility] stable 50-69 on left. 10/18 colonoscopy [facility] 3 3-5 polyps PATH colon-polypoid mucosa mild hyperplastic changes. Rectal polyp= hyperplastic polyp. Dr Juan Mak [facility] (11/19 06/14 Cologuard WNL. Cardiology-Jeffrey Campos [facility]. 12/17 Carotid 50-69% left ICA stenosis. Vielka [...] PFT evidence of COPD ) 05/10 TTE @[facility] Lsyhaaxeuv-dpol-simetw EF, mild LVH, Gr1 Feldman Dys 07/09 colonoscopy [facility] Endoscopy [facility]-3 & 6mm polyp--PAth--Tubular adenoma 07/09 [facility] TSH & celiac testing WNL 04/11 ER visit [facility] SVT--resolved with adenosine. 03/11 EKG-scanned [...] as of this encounter (statuses as of 02/24/2023) Resolved Problems Problem Noted Date Diagnosed Date [...] as of this encounter (statuses as of 02/24/2023) Immunizations Name Administration Dates Next Due COVID-19 mRNA, LNP-s, No Pre serve, 2-Dose Series ([employer]) 01/24/2021,01/04/2021,06/03/2020 Hepatitis B, 20+ yrs 08/27/2009,03/30/2009,02/27 Pneumococcal [...] Sign Reading Time Taken Comments Blood Pressure 122/68 02/24/2023 11:08 AM EST Pulse 97 02/24/2023 11:08 AM EST Temperature 36.1 C (96.9 F) 02/24/2023 11:[address] Respiratory Rate - - Oxygen Saturation - - Inhaled Oxygen Concentration - - Weight 109.8 kg (242 lb) 02/24/2023 11:08 AM EST Height - - Body Mass Index 33.75 01/19/2023 12:56 AM EST documented in this encounter Functional Status Functional [...] as of this encounter Progress Notes * Evelyn Levine PA-C - 02/24/2023 11:23 AM EST Images from the original note were not included. 02/24/23: ADDENDUM: 02/24/23 X-ray of R foot/toes final radiology report: "FINDINGS No osteolysis or periosteal reaction. No fracture or dislocation. Mild osteoarthritis 1st MTP jointand midfoot. Achilles and plantar calcaneal enthesophytes. IMPRESSION No osteomyelitis." I called and spoke to Mariia Made her aware of findings Although she does NOT have osteo on x-ray, she remains high risk for future R leg amputation She verbalized understanding and had no further questions/concerns at this time Evelyn Levine PA-C 02/24/2023 Date of Service: 02/24/2023 11:23 AM Mariia Liao is a 67 year old female. Referring Physician: Jonny Donaldson MD Chief Complaint: Returns today for evaluation of possible right leg bypass infection Last seen in clinic 02/09/23 Called in on 02/22/23 with new concerns of red, raised bump along right medial calf surgical incision Offered clinic appt, but couldn't come until today Reports pain and redness over R medial calf surgical incision line Feels like she has a "bubble" under her skin that will burst and bleed Currently NOT on oral abx Reports R foot pain and numbness/tingling, somewhat improves with hanging foot down Reports mild swelling of R leg; has been elevating leg Reports painting R great toe ulcer with betadine Has MRI scheduled for 03/08/23 (ordered by distillery miller helper) Accompanied by . HPI: Former smoker with DM, HTN, dyslipidemia, CAD, CHF and NICKEL allergy Presented to [facility] ER with non-healing ulcer of right great toe, progressive pain in RLE & SSTI on 01/19/23 [place] [facility] [place] [facility]. GSV was harvested for prior CABG PTFE graft was unable to be used given her R foot infection and PTFE grafts are already considered high infection rate Cryovein was the only option available S/P [...] and REIA angioplasty 01/19/[address] Rosas. Denies classic vasculogenic claudication Reports ? rest pain of right foot Reports non-healing R great toe ulcer CAROTID/SUBCLAVIAN DISEASE: S/P R CEA 05/02/22 @ [facility] Patient denies recent TIA, recent stroke and recent amaurosis fugax. R subclavian artery disease, per RANJITH Had a carotid duplex on 12/21/22 in [facility] (Dr. Jeffrey Campos) Power Transformer Repair Supervisor ordered this test, and she suspects everything was stable since she did not here from him; was told he would only notify her if any issues were found on ultrasound Scheduled with Cardiology on 07/03/2023 Current Outpatient Medications Medication Sig Dispense Refill [employer] SYSTEM W/DEVICE KIT Use up to four times a day as directed 1 0 [employer] ULTRASOFT LANCETS [facility] [place] blood sugar 4 times per day 250.42 [address] ASPIRIN EC 81 MG PO TBEC Take one pill daily 100 Tab 3 fluticasone (FLONASE) 50 MCG/ACT nasal spray Administer 2 Sprays into each nostril 2 times a day. 18.2 mL 5 Skinny Mom Ultra Blue In Vitro Strip (Glucose Blood) [...] evening. Inject with meals. 45 mL 3 No current facility-administered medications for this visit. [...] Type 2 diabetes mellitus with diabetic nephropathy ([facility]) E11.21 HTN, goal below 130/80 I10 Routine general medical examination at a health care facility Z00.00 SVT (supraventricular tachycardia) I47.10 Type 2 diabetes mellitus with hemoglobin A1c goal of less than 8.0% ([facility]) E11.9 DM type 2 causing neurological disease ([facility]) E11.49 CAD (coronary artery disease) I25.10 Heart failure, systolic, due to CAD I50.20, I25.10 S/P drug eluting coronary stent placement Z95.5 Inguinal hernia, right K40.90 Diabetic retinopathy, nonproliferative, moderate ([facility]) E11.3399 Sensorineural hearing loss (SNHL) of both ears H90.3 Diabetic macular edema of both eyes ([facility]) E11.311 Type 2 diabetes mellitus with diabetic nephropathy, with long-term current use of insulin ([facility]) E11.21, Z79.4 Carpal tunnel syndrome on right G56.01 PAD (peripheral artery disease) ([facility]) I73.9 Other emphysema ([facility]) J43.8 Carotid artery stenosis without cerebral infarction, left I65.22 History of 2019 novel coronavirus disease (COVID-19) Z86.16 History of nonmelanoma skin cancer Z85.828 S/P CABG x 3 Z95.1 History of completed stroke Z86.73 Urge incontinence of urine N39.41 COPD, group A, by GOLD 2017 classification ([facility]) J44.9 Acute lower limb ischemia I99.8 Diabetic foot infection E11.628, L08.9 Morbid (severe) obesity due to excess calories ([facility]) E66.01 Past Medical History: Diagnosis Date Allergic rhinitis Background diabetic retinopathy(362.01) 05/27/201405/[address] Montez Q6mo monitoring Benign neoplasm of colon 07/30/2010 polyps x 2--adenomatous tissue--repeat in 3 yrs , diverticulosis & fair prep-- CAD (coronary artery disease) 06/27/2013 06/24/13 +CP-abnormal stress->cath @[facility]. 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 85% Circ (stented RACHAEL), LAD 20%. EF shows inferior hypokinesis EF 45% Carotid artery stenosis without cerebral infarction, left 12/30/2020 Chronic sinusitis 06/07/2001 Diabetic macular edema of both eyes ([facility]) 01/14/2019 DM type 2, goal A1C [...] macular edema associated with type2 diabetes mellitus ([facility]) 05/31/2021 Open wound of trunk 05/2008 s/p LAURIE Pneumonia, organism unspecified(486) 11/1992 Proliferative diabetic retinopathy of left eye without macular edema associated with type 2 diabetes mellitus ([facility]) 05/31/2021 S/P CABG x 3 06/01/2022 S/P drug eluting coronary stent placement 06/27/2013 Sensorineural hearing loss (SNHL) of both ears 02/21/2017 Solitary cyst of breast 1992 Past Surgical History: Procedure Laterality Date ABLATE HEART DYSRHYTHM FOCUS 04/20/2012 AV Ablation-Dr Jeffrey Campos, [facility] BREAST LESION,OTHER,EXCISION Left benign BYPASS GRFT OTHER-CAROTID Right 05/02/[address] Oshea [facility] CARDIAC CATH SCANNED RESULT 06/24/2013 +Circ stent RACHAEL. CARPAL TUNNEL SURGERY 08/1992 Carpal Tunnel repair CARPAL TUNNEL SURGERY Left 12/11/2019 NEUROPLASTY MEDIAN NERVE AT CARPAL TUNNEL performed by Pankaj Osorio MD at OR [facility] COLONOSCOPY W/ LESION REMOVAL, SNARE 07/30/2010 polyps x 2--adenomatous tissue--repeat in 3 yrs , diverticulosis & fair prep-- COLONOSCOPY, DIAGNOSTIC (RECTUM) 10/02/2015 adenomatous polyps, diverticulosis, poor prep, repeat 1 yr/[facility] ENDART DEEP FEMORAL Right 01/19/2023 DEEP FEMORAL ENDARTERECTOMY performed by Willian Rosas MD [place] [facility] [place] EXPLORATION OF MAXILLARY SINUS 06/07/2001 Sinus Surgery HYSTEROSCOPY W/BIOPSY AND/OR POLYPECTOMY W/WO D&C 02/14/2006 INFORMATION ablation INTRODUCTION OF CATHETER, AORTA 01/19/2023 CATHETER PLACEMENT, AORTA performed by Willian Rosas MD at [place] [facility] LAP;OCCULSION OVIDUCTS/DEVICE 1985 LIGATE/CUT OVIDUCT(S) tubal ligation -rings [place] CORONARY ARTERY BYP W/VEIN & ARTERY GRAFT 3 VEIN 04/27/2022 KUMAR to LAD, SVG to PL of LCx and PDA of the RCA 04/27/[address]te [facility]. PULMONARY FUNCTION TEST SCREEN 10/09/2001 normal REMOVE GALLBLADDER 04/1993 Cholecystectomy REPAIR OF NASAL SEPTUM 06/07/2001 Nasal Septum Repair SYNTH BYPASS, FEMORAL-POP Right 01/19/2023 BYPASS GRAFT OTHER THAN VEIN FEMORAL POPLITEAL performed by Willian Rosas MD [place] [facility] TOTAL ABD HYSTERECTOMY W/WO REMOVAL OF TUBE(S) 06/23/2008 & oopherectomy VAGINAL DELIVERY ONLY VENOGRAM EXTREMITY UNI-FLUOR Right 01/19/2023 IMAGING SUPERVISION & INTERPRETATION EXTREMITY VEIN [facility] Family History Problem Relation Age of [...] on file Occupational History Occupation: retired. Employer: [employer] [id number] Comment: [employer] [facility] [employer] Tobacco Use Smoking status: Former Packs/day: [...] Yes Partners: Male control/protection: Surgical Comment: tubal. [id number] 1 daughter 28Y Other Topics Concern Service [...] amaurosis fugax. Cardiovascular: denies chest pain, denies GA, reports CHF, reports CAD s/p PCI in 2013. Respiratory: denies shortness of breath, reports PINEDA. Musculoskeletal: reports arthritis, reports chronic low back pain. Skin: reports R great toe ulcer Neurological: denies TIA, denies CVA Psychiatric: reports anxiety. Endocrine: reports NIDDM, reports hyperlipidemia. GENERAL MULTI-SYSTEM PHYSICAL EXAM: VITAL SIGNS: BP 122/68 (BP Site: Right Arm, BP Position: Sitting, BP Cuff Size: Regular) | Pulse 97 | Temp 36.1 C (96.9 F) (Temporal Artery) | Wt 109.8 kg (242 lb) | LMP 03/13/2008 | BMI 33.75 kg/m | BSA 2.35 m GENERAL MULTI-SYSTEM PHYSICAL EXAM: GENERAL: Normal grooming [...] PHOTO. R medial calf surgical incision with area of erythema and hardness along proximal segment. PHOTO RIGHT GREAT TOE: RIGHT LEG: PULSE SCALE: Carotid Right:----Bruit: No Left:----Bruit: Yes [...] 3=Normal; 2=Diminished; 1=Barely Palpable; 0=Absent DIAGNOSTIC STUDIES: 02/24/23: RANJITH: 0.46 / 0.99 ; RLE monophasic waveforms with flat ppg, LLE monophasic waveforms with decreased ppgs 02/24/23: arterial duplex: REIA stent 143/210/207/244, RCFA 187, RDFA 142, R MANAGER LINUX - pop bpg occluded, R prox calf area of interest 1.86 cm x 2.02 cm, R prox calf dist anast [place] runoff 54 The above diagnostic images were directly visualized and independently interpreted by me on 02/24/2023 with results as above 12/23/22 RANJITH: 0.48/0.65, [...] both verts antegrade 11/2017 CT abd/pelv: moderate nzjjk-gsnqo-odmcrey disease bilaterally LABS: Creatinine Results: Lab Results [...] HGB - [facility] 14.5 08/26/2009 12:08 PM The above clinical lab tests were reviewed by me on 02/24/2023. IMPRESSIONS: R MANAGER LINUX --> BK pop BPG occluded, per 02/24/23 duplex. RANJITH remains stable when compared to 11/2022 study. R medial calf surgical incision with area of erythema and tenderness, concerning for infection R great toe ulcer, questionable for osteomyelitis S/P RCFA => BK Pop BPG w/ cryopreserved vein, R DFA endarterectomy (beyond site of prox anastomosis), and REIA angioplasty 01/19/[address] Rosas. Asymptomatic R SCA stenosis, per RANJITH. S/P R CEA 05/02/22 @ [facility] Bilateral <50% carotid stenosis, per 2001 carotid duplex. Had carotid duplex completed on 12/21/22 in [place] per pt report, and she believes everything remains stable Followed by Dr. Dr. Jeffrey Campos, [employer] Super[employer], in [place] Former smoker. CAD, H/O PCI, s/p CABG x 3, 04/27/22 @ [facility] DM Dyslipidemia, on statin HTN CHF Anaphylactic nickel allergy PLAN: Returns sooner than expected for evaluation of possible right leg bypass infection Add-on RANJITH remains unchanged when compared to 11/2022 study Add-on RLE graft duplex indicates OCCLUDED R MANAGER LINUX --> BK pop BPG Since she is 2 weeks out from onset of RLE symptoms, and the fact that this is a cryopreserved veingraft, thrombectomy would be non-beneficial at this time However, what remains concerning at this point, is her R great toe ulcer, which I doubt will heal since her RLE bypass is occluded, and she is diabetic Will bring her back with vein mapping of BUE's to assess for other bypass options Has an MRI R foot scheduled on 03/08/23 to r/o osteo; however, will get x-ray sooner to evaluate forosteo Made her aware that she is at high risk for amputation in the near future Also her R medial calf surgical incision has an area of erythema and tenderness, which is concerning for infection Escribed doxycyline 100 mg BID x 10 days (#20 tablets, NO refills) for prophylaxis to [facility] Wound Care Regimen: Wash right leg and foot with warm, soapy water. Pat dry gently. NO SOAKING. Lamont R great toe ulcer with betadine and cover with dry dressing, change daily Offload as much as possible Wear slippers when at home All BP's L arm for accuracy given R SCA disease Continue ASA 81 mg daily for platelet inhibition Continue Lipitor 80 mg for dyslipidemia/hyperlipidemia/pleiotropic benefits On Xarelto 2.5 mg BID for graft patency, of cryo BPG (which is now occluded) Continue smoking cessation X-ray of R foot NOW before leaving hospital. Will call with results. RTC on 03/01/23 with vein mapping of BUE's and Dr. Rosas or syeda izaguirre (Case reviewed/discussed with on-call provider, Dr. Enciso) Evelyn Levine PA-C Vascular and Endovascular Surgery [facility] d documented in this encounter Nursing Notes * Grecia Karimi MED ASSIST - 02/24/2023 11:10 AM EST Reviewed the option of transferring scripts to [facility] pharmacy with patient and / or family. [...] 03/01/2023 11:00 AM EST Appointment Vascular Lab [place] [address] [place] [address] 03/01/2023 12:00 PM EST Office Visit Vascular Surg [facility] [address] [place] [address] Elver Gaona CRNP [address] [place] [address] 04/05/2023 11:30 AM EST Pharmacy Pharmacy, [facility] [place] [address] [facility] [place] [address] Pharmacist2, [facility] [address] [facility] [place] [address] 06/21/2023 10:15 AM EDT Office Visit Urology, [facility] [address] [place] [address] William Doe MD [address] [place] [address] [place] [address] 2023 3:00 PM EDT Office Visit Family [facility] [address] [place] [address] Jonny Donaldson MD [address] [place] [address] Scheduled Orders Name Type Priority Associated Diagnoses Orde r Schedule VASC VEIN MAP BYPASS GRAFT PREOP EVAL Medical Imaging Routine PAD (peripheral artery disease) (HCC) Skin ulcer of right great toe, unspecified ulcer stage (HCC) Ordered: 02/24/2023 Health Maintenance Due Date Last Done Comments [...] 11/15/1994 LUNG CANCER SCREENING - USE SMARTSET [id number] Completed 08/23/2022, 11/10/2020 Influenza Vaccine (FLU shot) Completed , 12/09/2021, 11/10/2020, Additional history exists GARDASIL-HPV IMMUNIZATION SERIES Aged Out No longer eligible based on patient's age to complete this topic MENINGOCOCCAL (MENACTRA/MENVEO) Aged Out No longer eligible based on patient's age to complete this topic documented as of this encounter Medical Devices Implanted Type Area Intercell Connector Placer Device Identifier Shelf Expiration Date Model / Serial / Lot Greater Than 80cm, 3mm-8mm Flroa, Angiograft Pvd Saphenous Veins, Cryopreserved Implanted:Qty: 1 on 01/19/2023 by Willian Rosas [place] [facility] Right: Leg Upper [employer] 07/29/2026 CV>80 / [id number] / [id number] documented as of this encounter Procedures [...] plantar calcanealenthesophytes. IMPRESSION IMPRESSION No osteomyelitis. Evelyn Levine PA-C RADIOLOGY ( [facility]) * XR FOOT 3 OR MORE [...] plantar calcanealenthesophytes. IMPRESSION IMPRESSION No osteomyelitis. Evelyn Levine PA-C RADIOLOGY ( [facility]) documented in this encounter Visit Diagnoses Diagnosis PAD (peripheral artery disease) (HCC)- Primary Peripheral vascular disease, unspecified Skin ulcer of right great toe, unspecified ulcer stage ([facility]) documented in this encounter Advance Directives Latest [...] Advance Directives occurred with: Patient Care Teams Hostel Manager Relationship Specialty Start Date End Date Jonny Donaldson MD [address] [place] [address] PCP - General Family Medicine 05/27/14 documented as of this encounter
--- OUTSIDE RECORDS SUMMARY | 2023-03-02 22:33 | External Medical Summary | Summary of Care ---
Author Name Unknown Organization [facility] Address [address] [place] [address] Phone [phone] Care Team Providers Care Engineering Administrator Name Role Phone Jonny Donaldson MD Primary Care Provider + Reason for Visit * Reason Comments Follow Up Encounter Details Date Type Department Care Team (Late st Contact Info) Description 02/24/2023 11:00 AM EST Office Visit Vascular Surg [facility] [place] [address] [place], [place] [id number] Elver Gaona CRNP [address] [place] [address] PAD (peripheral artery disease) ([facility])*; Skin ulcer of right great toe, unspecified ulcer stage ([facility]) Allergies Active Allergy Reactions Criticality Noted Date Comments Cephalexin 01/28/1996 rash Doxepin 02/01/2018 Dust 04/04/2001 Nickel Anaphylaxis High 04/04/2001 Paroxetine 04/28/2003 generic only, brand ok Penicillins 03/03/1995 Rash Sulfa Antibiotics 11/27/1994 Rash documented as of this encounter (statuses as of 02/24/2023) Medications Medication Sig Dispensed Refills Start Date End Date Status KelDoc SYSTEM W/DEVICE KITIndications:DM type 2, goal A1c [...] diabetes mellitus with renal manifestations, uncontrolled(250.4 2) ([facility]) Take one pill daily 100 Tab 3 01/28/2014 Active fluticasone (FLONASE) 50 MCG/ACT nasal spray Administer 2 Sprays into each nostril 2 times a day. 18.2 mL 5 10/14/2019 Active OneTouch Ultra Blue In Vitro Strip (Glucose Blood)Indications: Type 2 diabetes mellitus with hemoglobin A1c goal of less than 8.0% ([facility]) Use up to 3 times Daily E11.9 poorly controlled. 200 Strip 11 03/11/2021 Active BD Pen Needle Tanja U/F 32G X 4 MM (Insulin Pen Needle)Indications :Type 2 diabetes mellitus with hemoglobin A1c goal of less than 8.0% ([facility]) USE TO INJECT INSULIN 2-3 times [...] of the RCA 04/27/[address] Whyte [facility]. History of nonmelanoma skin cancer 05/25/2022 [...] disease) 06/27/2013 Overview: 06/24/13 +CP-abnormal stress->cath @[facility]. 100% occlusion RCA with left- right [...] 11/23/2011 Overview: 04/20/12 AV Ablation-Dr Jeffrey Campos, [facility] Episode June 2011 around 03/12/12 [facility]-P175 SVT--sched for [place] EP study Routine general medical exam ination at a health care facility 11/11/2011 Overview: 01/18 Carotid [place] stable 50-69 on left. 10/18 colonoscopy [facility] 3 3-5 polyps PATH colon-polypoid mucosa mild hyperplastic changes. Rectal polyp= hyperplastic polyp. Dr Juan Mak [facility] (11/19 06/14 Cologuard WNL. Cardiology-Jeffrey Campos [place]. 12/17 Carotid 50-69% left ICA stenosis. Vielka done 07/18. 12/17 TTE normal EF Gr1 Jessica dys. Mild MR/TR. Aortic sclerosis 10/12 colonoscopy-polyps [...] PFT evidence of COPD ) 05/10 TTE @[facility] Uppavaaxjw-rron-evsbvo EF, mild LVH, Gr1 Jessica Dys 07/09 colonoscopy [facility] Endoscopy [place]-3 & 6mm polyp--PAth--Tubular adenoma 07/09 [place] TSH & celiac testing WNL 04/11 ER visit [facility] SVT--resolved with adenosine. 03/11 EKG-scanned QTc 414 12/08 Stress echo-normal except small calc. On aortic valve and Gr I jessica dysfxn 05/08 mammo WNL 08/07 scope 2 [...] mRNA, LNP-s, No Pre serve, 2-Dose Series ([employer]) 01/24/2021,01/04/2021,06/03/2020 Hepatitis B, 20+ yrs 08/27/2009,03/30/2009,02/27 Pneumococcal [...] No 01/19/2023 documented as of this encounter Nursing Notes * Grecia Karimi MED ASSIST - 02/24/2023 11:10 AM EST Reviewed the option of transferring scripts to [facility] pharmacy with patient and / or family. [...] 03/01/2023 11:00 AM EST Appointment Vascular Lab [address] [address] 03/01/2023 12:00 PM EST Office Visit Vascular Surg [facility] [address] [place] [address] Elver Gaona CRNP [address] [place] [address] 04/05/2023 11:30 AM EST Pharmacy Pharmacy, [facility] [address] [facility] [place] [address] Pharmacist2, [facility] [address] [facility] [place] [address] 06/21/2023 10:15 AM EDT Office Visit Urology, [facility] [address] [facility] [place] [address] William Doe MD [address] [place] [address] 2023 3:00 PM EDT Office Visit Family Practice [facility] [address] [facility] [place] [address] Jonny Donaldson MD [address] [facility] [place] [address] Scheduled Orders Name Type Priority Associated Diagnoses [...] Screening Completed 06/18/2002 Hepatitis B Completed 08/27/2009, 02/0 02/2009, 02/27/2009 Zoster Vaccines Completed 08/21/2019, 04/27, 08/06/2015 Pneumococcal Vaccine: 65+ Years Completed 01/28/2022, 10/20/2020, 11/15/1994 LUNG CANCER SCREENING - USE SMARTSET 88065 Completed 08/23/2022, 11/10/2020 Influenza Vaccine (FLU shot) Completed , 12/09/2021, 11/10/2020, Additional history exists GARDASIL-HPV IMMUNIZATION SERIES Aged Out No longer eligible based on patient's age to complete this topic MENINGOCOCCAL (MENACTRA/MENVEO) Aged Out No longer eligible based on patient's age to complete this topic documented as of this encounter Medical Devices Implanted Type Area Plant Maintenance Engineer Device Identifier Shelf Expiration Date Model / Serial / Lot Greater Than 80cm, 3mm-8mm Flora, Angiograft Pvd Saphenous Veins, Cryopreserved Implanted:Qty: 1 on 01/19/2023 by Willian Rosas MD at [place] [facility] Right: Leg Upper LIFENET 07/29/2026 CV>80 / [id number] / [id number] documented as of this encounter Procedures [...] Evelyn Levine PA-C RADIOLOGY ( RAD GENERAL) * XR [...] No osteomyelitis. Evelyn Levine PA-C RADIOLOGY ( [facility]) documented in this encounter Visit Diagnoses Diagnosis PAD (peripheral artery disease) (HCC)- Primary Peripheral vascular disease, unspecified Skin ulcer of right great toe, unspecified ulcer stage (HCC) documented in this encounter Advance Directives Latest [...] Advance Directives occurred with: Patient Care Teams Engineering Administrator Relationship Specialty Start Date End Date Jonny Donaldson MD [address] [facility] [place] [address] PCP - General Family Medicine 05/27/14 documented as of this encounter
--- OUTSIDE RECORDS SUMMARY | 2023-03-02 22:33 | External Medical Summary | Summary of Care ---
Author Name Unknown Organization [facility] Address [address] [place] [address] Phone [phone] Care Team Providers Care Certified Physician'S Assistant Name Role Phone Jonny Donaldson MD Primary Care Provider + Reason for Visit * Reason Onset Date Comments Advice 02/24/2023 Encounter Details Date Type Department Care Team (Late st Contact Info) Description 02/24/2023 Telephone Vascular Surg [facility] [address] [place], [place] [phone] Evelyn Levine PA-C [address] [place], [place] [phone] Advice Allergies Active Allergy Reactions Criticality Noted [...] diabetes mellitus with renal manifestations, uncontrolled(250.4 2) ([facility]) Take one pill daily 100 Tab 3 01/28/2014 Active fluticasone (FLONASE) 50 MCG/ACT nasal spray Administer 2 Sprays into each nostril 2 times a day. 18.2 mL 5 10/14/2019 Active OneTouch Ultra Blue In Vitro Strip (Glucose Blood)Indications: Type 2 diabetes mellitus with hemoglobin A1c goal of less than 8.0% ([facility]) Use up to 3 times Daily E11.9 poorly controlled. 200 Strip 11 03/11/2021 Active BD Pen Needle Tanja U/F 32G X 4 MM (Insulin Pen Needle)Indications :Type 2 diabetes mellitus with hemoglobin A1c goal of less than 8.0% ([facility]) USE TO INJECT INSULIN 2-3 times per [...] hemoglobin A1c goal of less than 8.0% ([facility]) Inject 15 Units under the skin in [...] of the RCA 04/27/[address] Whyte [facility]. History of nonmelanoma skin cancer [...] AV Ablation-Dr Jeffrey Campos, [facility] Episode June 2011 around 03/12/12 [place] hosp-P175 SVT--sched for [place] EP study Routine general medical exam ination at a health care facility 11/11/2011 Overview: 01/18 Carotid US [place] stable 50-69 on left. 10/18 colonoscopy [facility] 3 3-5 polyps PATH colon-polypoid mucosa mild hyperplastic changes. Rectal polyp= hyperplastic polyp. Dr Juan Mak [facility] (11/19 06/14 Cologuard WNL. Cardiology-Jeffrey Campos [place]. 12/17 Carotid 50-69% left ICA stenosis. Vielka [...] PFT evidence of COPD ) 05/10 TTE @[place] Cwpbyvsbcc-orti-mlwkof EF, mild LVH, Gr1 Feldman Dys 07/[address] [facility] [place]-3 & 6mm polyp--PAth--Tubular adenoma 07/09 [place] TSH & celiac testing WNL 04/11 ER visit [facility] SVT--resolved with adenosine. 03/11 EKG-scanned QTc 414 [...] mRNA, LNP-s, No Pre serve, 2-Dose Series ([employer]) 01/24/2021,01/04/2021,06/03/2020 Hepatitis B, 20+ yrs 08/27/2009,03/30/2009,02/27 Pneumococcal [...] encounter Miscellaneous Notes * Telephone Encounter - Roman Cox OSA - 02/24/2023 4:45 PM EST Images and report requested * Telephone Encounter - Evelyn Levine PA-C - 02/24/2023 3:52 PM EST Secretaries - Can you obtain carotid duplex results report and imaging from 12/21/[address] Jeffrey Campos's office (Cardiology) in [place], please? documented in this encounter Plan of Treatment Upcoming Encounters Date Type Department Care Team (Late st Contact Info) Description 03/01/2023 11:00 AM EST Appointment Vascular Lab [facility] [address] [place] [address] 03/01/2023 12:00 PM EST Office Visit Vascular Surg [facility] [address] [place] [address] Elver Gaona CRNP [address] [place] [address] 04/05/2023 11:30 AM EST Pharmacy Pharmacy, [facility] [address] [facility] [place] [address] Pharmacist2, [facility] [address] [facility] [place] [address] 06/21/2023 10:15 AM EDT Office Visit Urology, [facility] [address] [place] [address] William Doe MD [address] [place] [address] 2023 3:00 PM EDT Office Visit Family Practice [facility] [address] [place] [address] Jonny Donaldson MD [address] [place] [address] Health Maintenance Due Date Last Done Comments [...] 11/15/1994 LUNG CANCER SCREENING - USE SMARTSET 00158 Completed 08/23/2022, 11/10/2020 Influenza Vaccine (FLU shot) Completed , 12/09/2021, 11/10/2020, Additional history exists GARDASIL-HPV IMMUNIZATION SERIES Aged Out No longer eligible based on patient's age to complete this topic MENINGOCOCCAL (MENACTRA/MENVEO) Aged Out No longer eligible based on patient's age to complete this topic documented as of this encounter Medical Devices Implanted Type Area Outside Machinist Apprentice Device Identifier Shelf Expiration Date Model / Serial / Lot Greater Than 80cm, 3mm-8mm Flora, Angiograft Pvd Saphenous Veins, Cryopreserved Implanted:Qty: 1 on 01/19/2023 by Willian Rosas MD at [facility] Right: Leg Upper LIFENET 07/29/2026 CV>80 / [id number] / [id number] documented as of this encounter Advance [...] Advance Directives occurred with: Patient Care Teams Certified Physician'S Assistant Relationship Specialty Start Date End Date Jonny Donaldson MD [address] [facility] [place] [address] PCP - General Family Medicine 05/27/14 documented as of this encounter
--- OUTSIDE RECORDS SUMMARY | 2023-03-02 22:33 | External Medical Summary | Summary of Care ---
Author Name Unknown Organization [facility] Address [address] [place] [address] Phone [phone] Care Team Providers Care Fiber Technician Name Role Phone Jonny Donaldson MD Primary Care Provider + Reason for Visit * Reason Onset Date Comments Advice 02/22/2023 Encounter Details Date Type Department Care Team (Late st Contact Info) Description 02/22/2023 Telephone Vascular Surg [facility] [address] [place], [place] [phone] Services, [facility] [address] [place] [address] Advice Allergies Active Allergy Reactions Criticality Noted Date Comments Cephalexin 01/28/1996 rash Doxepin 02/01/2018 Dust 04/04/2001 Nickel Anaphylaxis High 04/04/2001 Paroxetine 04/28/2003 generic only, brand ok Penicillins 03/03/1995 Rash Sulfa Antibiotics 11/27/1994 Rash documented as of this encounter (statuses as of 02/22/2023) Medications Medication Sig Dispensed Refills Start Date End Date Status [employer]TOUCH ULTRA SYSTEM W/DEVICE KITIndications:DM type 2, goal [...] diabetes mellitus with renal manifestations, uncontrolled(250.4 2) ([facility]) Take one pill daily 100 Tab 3 01/28/2014 Active fluticasone (FLONASE) 50 MCG/ACT nasal spray Administer 2 Sprays into each nostril 2 times a day. 18.2 mL 5 10/14/2019 Active OneTouch Ultra Blue In Vitro Strip (Glucose Blood)Indications: Type 2 diabetes mellitus with hemoglobin A1c goal of less than 8.0% ([facility]) Use up to 3 times Daily E11.9 poorly controlled. 200 Strip 11 03/11/2021 Active BD Pen Needle Tanja U/F 32G X 4 MM (Insulin Pen Needle)Indications :Type 2 diabetes mellitus with hemoglobin A1c goal of less than 8.0% ([facility]) USE TO INJECT INSULIN 2-3 times per [...] hemoglobin A1c goal of less than 8.0% ([facility]) Inject 15 Units under the skin in [...] of the RCA 04/27/[address] Whyte [facility]. History of nonmelanoma skin cancer 05/25/2022 [...] artery disease) 06/27/2013 Overview: 06/24/13 +CP-abnormal stress->cath @[facility]. 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 85% Circ (stented RACHAEL), LAD 20%. EF shows inferior hypokinesis EF 45% Stent--Medtronic Resolute INtegrity Zotarolimus stent Circumflex. 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 10/18 colonoscopy [facility] 3 3-5 polyps PATH colon-polypoid mucosa mild hyperplastic changes. Rectal polyp= hyperplastic polyp. Dr Juan Mak [facility] (11/19 06/14 Cologuard WNL. Cardiology-Jeffrey Campos [place]. 12/17 Carotid 50-69% left ICA stenosis. Vielka [...] PFT evidence of COPD ) 05/10 TTE @[place] Uxmeyiyhaz-dctb-zwumyj EF, mild LVH, Gr1 Feldman Dys 07/09 colonoscopy [facility] [place]-3 & 6mm polyp--PAth--Tubular adenoma 07/09 [place] TSH & celiac testing WNL 04/[address] [facility] SVT--resolved with adenosine. 03/11 EKG-scanned QTc 414 [...] mRNA, LNP-s, No Pre serve, 2-Dose Series ([employer]) 01/24/2021,01/04/2021,06/03/2020 Hepatitis B, 20+ yrs 08/27/2009,03/30/2009,02/27 Pneumococcal [...] Encounter - Anya Bullock CRNP - 02/22/2023 3:42 PM EST Noted. Should present to local ED if "bubble" bursts and has bleeding. Otherwise, will see Monday, per patient's request. * Telephone Encounter - Sammi Leal LPN - 02/22/2023 3:38 PM EST Spoke with patient and offered her an appt tomorrow and she has declined. She states they both havea lot of appts tomorrow. She asked if they can come Monday, but not to early. I offered them 10 am but she would rather 11 am. Patient has been added 02/24/23 @ 11 am on Elver's schedule. Sammi Leal LPN 02/22/2023 3:40 PM * Telephone Encounter - Anya Bullock CRNP - 02/22/2023 3:31 PM EST Would need to see patient to evaluate the incision prior to starting an antibiotic. Please offer patient appt for tomorrow on rick schedule please. Bypass with cryopreserved vein, higher [...] 02/22/2023 3:27 PM * Telephone Encounter - Tamime Joy OSA - 02/22/2023 1:50 PM EST [...] 11:00 AM EST Office Visit Vascular Surg [facility] [address] [place] [address] Elver Gaona CRNP [address] [place] [address] 03/01/2023 10:30 AM EST Appointment Vascular Lab [facility] [place] [address] [place] [address] 03/01/2023 11:00 AM EST Appointment Vascular Lab [facility], [place] [address] [place] [address] 03/01/2023 12:00 PM EST Appointment Vascular Lab [facility], [place] [address] [place] [address] 03/01/2023 12:15 PM EST Office Visit Vascular Surg [facility], [place] [address] [place] [address] Willian Rosas MD [address] [place] [address] 04/05/2023 11:30 AM EST Pharmacy Pharmacy, [facility] [address] [facility] [place] [address] Pharmacist2, [facility] [address] [facility] [place] [address] 06/21/2023 10:15 AM EDT Office Visit Urology, [facility] [address] [facility] [place] [address] William Doe MD [address] [facility] [address] [place] [address] 2023 3:00 PM EDT Office Visit Family Practice [facility] [address] [facility] [place] [address] Jonny Donaldson MD [address] [facility] [place] [address] Health Maintenance Due Date Last Done Comments [...] 11/15/1994 LUNG CANCER SCREENING - USE SMARTSET 05651 Completed 08/23/2022, 11/10/2020 Influenza Vaccine (FLU shot) Completed , 12/09/2021, 11/10/2020, Additional history exists GARDASIL-HPV IMMUNIZATION SERIES Aged Out No longer eligible based on patient's age to complete this topic MENINGOCOCCAL (MENACTRA/MENVEO) Aged Out No longer eligible based on patient's age to complete this topic documented as of this encounter Medical Devices Implanted Type Area Drum Drier Operator Device Identifier Shelf Expiration Date Model / Serial / Lot Greater Than 80cm, 3mm-8mm Flora, Angiograft Pvd Saphenous Veins, Cryopreserved Implanted:Qty: 1 on 01/19/2023 by Willian Rosas MD at [place] [facility] Right: Leg Upper LIFENET 07/29/2026 CV>80 / [id number] / [id number] documented as of this encounter Advance [...] Advance Directives occurred with: Patient Care Teams Fiber Technician Relationship Specialty Start Date End Date Jonny Donaldson MD [address] [place] [address] PCP - General Family Medicine 05/27/14 documented as of this encounter
--- OUTSIDE RECORDS SUMMARY | 2023-03-02 22:33 | External Medical Summary | Summary of Care ---
Author Name Unknown Organization [facility] Address [address] [place] [address] Phone [phone] Care Team Providers Care Body Stylist Name Role Phone Jonny Donaldson MD Primary Care Provider + Reason for Visit * Reason Comments Follow Up Encounter Details Date Type Department Care Team (Late st Contact Info) Description 02/24/2023 11:00 AM EST Office Visit Vascular Surg [facility] [place] [address], [place] [id number] Elver Gaona CRNP [address] [place] [address] PAD (peripheral artery disease) ([facility]; Skin ulcer of right great toe, unspecified ulcer stage ([facility]) Allergies Active Allergy Reactions Criticality Noted Date Comments Cephalexin 01/28/1996 rash Doxepin 02/01/2018 Dust 04/04/2001 Nickel Anaphylaxis High 04/04/2001 Paroxetine 04/28/2003 generic only, brand ok Penicillins 03/03/1995 Rash Sulfa Antibiotics 11/27/1994 Rash documented as of this encounter (statuses as of 02/24/2023) Medications Medication Sig Dispensed Refills Start Date End Date Status [email or web address] SYSTEM W/DEVICE KITIndications:DM type 2, goal A1c [...] diabetes mellitus with renal manifestations, uncontrolled(250.4 2) ([facility]) Take one pill daily 100 Tab 3 01/28/2014 Active fluticasone (FLONASE) 50 MCG/ACT nasal spray Administer 2 Sprays into each nostril 2 times a day. 18.2 mL 5 10/14/2019 Active OneTouch Ultra Blue In Vitro Strip (Glucose Blood)Indications: Type 2 diabetes mellitus with hemoglobin A1c goal of less than 8.0% ([facility]) Use up to 3 times Daily E11.9 poorly controlled. 200 Strip 11 03/11/2021 Active BD Pen Needle Tanja U/F 32G X 4 MM (Insulin Pen Needle)Indications :Type 2 diabetes mellitus with hemoglobin A1c goal of less than 8.0% ([facility]) USE TO INJECT INSULIN 2-3 times per [...] of the RCA 04/27/[address] Whyte [facility]. History of nonmelanoma skin cancer 05/25/2022 Overview: [...] artery disease) 06/27/2013 Overview: 06/24/13 +CP-abnormal stress->cath @[facility]. 100% occlusion RCA with left- right [...] 11/23/2011 Overview: 04/20/12 AV Ablation-Dr Jeffrey Campos, [facility] Episode June 2011 around 03/12/12 [place] hosp-P175 SVT--sched for [place] EP study Routine general medical exam ination at a health care facility 11/11/2011 Overview: 01/18 Carotid US [place] stable 50-69 on left. 10/18 colonoscopy [facility] 3 3-5 polyps PATH colon-polypoid mucosa mild hyperplastic changes. Rectal polyp= hyperplastic polyp. Dr Juan Mak [facility] (11/19 06/14 Cologuard WNL. Cardiology-Jeffrey Campos [place]. 12/17 Carotid 50-69% left ICA stenosis. Vielka [...] PFT evidence of COPD ) 05/10 TTE @[place] Ukklhnahtu-wlxx-gezfxb EF, mild LVH, Gr1 Feldman Dys 07/09 colonoscopy [facility] Endoscopy [place]-3 & 6mm polyp--PAth--Tubular adenoma 07/09 [place] TSH & celiac testing WNL 04/11 ER visit [facility] SVT--resolved with adenosine. 03/11 EKG-scanned QTc [...] mRNA, LNP-s, No Pre serve, 2-Dose Series (Harir) 01/24/2021,01/04/2021,06/03/2020 Hepatitis B, 20+ yrs 08/27/2009,03/30/2009,02/27 Pneumococcal [...] evaluation of possible right leg bypass infection Called in on 02/22/23 with new concerns [...] improves with hanging foot down, says she had some of these symptoms already prior to vascular procedure, but now feels like this has gotten worse within past few days Reports mild swelling of R leg; has been elevating leg Reports painting R great toe ulcer with betadine Has MRI scheduled for 03/08/23 (ordered by clinical implementation specialist) Accompanied by . HPI: Former smoker with DM, HTN, dyslipidemia, CAD, CHF, and NICKEL allergy Presented to [facility] ER with non-healing ulcer of right great toe, progressive pain in RLE & SSTI on 01/19/23 Was transferred to [facility], via [facility]. GSV [...] CAROTID/SUBCLAVIAN DISEASE: S/P R CEA 05/02/22 @ [facility] Patient denies recent TIA, recent stroke and recent amaurosis fugax. R subclavian artery disease, per RANJITH Had a carotid duplex on 12/21/22 in [place] (Dr. Jeffrey Campos) Senior Quality Control Technician ordered this test, and she suspects everything was stable since she did not here from him; was told he would only notify her if any issues were found on ultrasound Scheduled with Cardiology on 07/03/2023 Current Outpatient Medications Medication Sig Dispense Refill [email or web address] SYSTEM W/DEVICE KIT Use up to four times a day as directed 1 0 [employer] ULTRASOFT LANCETS [facility] for testing blood sugar 4 times per [...] Type 2 diabetes mellitus with diabetic nephropathy ([facility]) E11.21 HTN, goal below 130/80 I10 Routine general medical examination at a health care facility Z00.00 SVT (supraventricular tachycardia) I47.10 Type 2 diabetes mellitus with hemoglobin A1c goal of less than 8.0% ([facility]) E11.9 DM type 2 causing neurological disease ([facility]) E11.49 CAD (coronary artery disease) I25.10 Heart failure, systolic, due to CAD I50.20, I25.10 S/P drug eluting coronary stent placement Z95.5 Inguinal hernia, right K40.90 Diabetic retinopathy, nonproliferative, moderate ([facility]) E11.3399 Sensorineural hearing loss (SNHL) of both ears H90.3 Diabetic macular edema of both eyes ([facility]) E11.311 Type 2 diabetes mellitus with diabetic nephropathy, with long-term current use of insulin ([facility]) E11.21, Z79.4 Carpal tunnel syndrome on right G56.01 PAD (peripheral artery disease) ([facility]) I73.9 Other emphysema ([facility]) J43.8 Carotid artery stenosis without cerebral infarction, left I65.22 History of 2019 novel coronavirus disease (COVID-19) Z86.16 History of nonmelanoma skin cancer Z85.828 S/P CABG x 3 Z95.1 History of completed stroke Z86.73 Urge incontinence of urine N39.41 COPD, group A, by GOLD 2017 classification ([facility]) J44.9 Acute lower limb ischemia I99.8 Diabetic foot infection E11.628, L08.9 Morbid (severe) obesity due to excess calories ([facility]) E66.01 Past Medical History: Diagnosis Date Allergic rhinitis Background diabetic retinopathy(362.01) 05/27/201405/[address] Montez Q6mo monitoring Benign neoplasm of colon 07/30/2010 polyps x 2--adenomatous tissue--repeat in 3 yrs , diverticulosis & fair prep-- CAD (coronary artery disease) 06/27/2013 06/24/13 +CP-abnormal stress->cath @[facility]. 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 85% Circ (stented RACHAEL), LAD 20%. EF shows inferior hypokinesis EF 45% Carotid artery stenosis without cerebral infarction, left 12/30/2020 Chronic sinusitis 06/07/2001 Diabetic macular edema of both eyes ([facility]) 01/14/2019 DM type 2, goal A1C 7-8 DM type 2, goal A1c below 7 1999 Dyslipidemia, goal to be determined Generalized anxiety [...] macular edema associated with type2 diabetes mellitus ([facility]) 05/31/2021 Open wound of trunk 05/2008 s/p LAURIE Pneumonia, organism unspecified(486) 11/1992 Proliferative diabetic retinopathy of left eye without macular edema associated with type 2 diabetes mellitus ([facility]) 05/31/2021 S/P CABG x 3 06/01/2022 S/P drug eluting coronary stent placement 06/27/2013 Sensorineural hearing loss (SNHL) of both ears 02/21/2017 Solitary cyst of breast 1992 Past Surgical History: Procedure Laterality Date ABLATE HEART DYSRHYTHM FOCUS 04/20/2012 AV Ablation-Dr Jeffrey Campos, [facility] BREAST LESION,OTHER,EXCISION Left benign BYPASS GRFT OTHER-CAROTID Right 05/02/[address] Oshea [facility] CARDIAC CATH SCANNED RESULT 06/24/2013 +Circ stent RACHAEL. CARPAL TUNNEL SURGERY 08/1992 Carpal Tunnel repair CARPAL TUNNEL SURGERY Left 12/11/2019 NEUROPLASTY MEDIAN NERVE AT CARPAL TUNNEL performed by Pankaj Osorio MD at OR [facility] COLONOSCOPY W/ LESION REMOVAL, SNARE 07/30/2010 polyps x 2--adenomatous tissue--repeat in 3 yrs , diverticulosis & fair prep-- COLONOSCOPY, DIAGNOSTIC (RECTUM) 10/02/2015 adenomatous polyps, diverticulosis, poor prep, repeat 1 yr/[facility] ENDART DEEP FEMORAL Right 01/19/2023 DEEP FEMORAL ENDARTERECTOMY performed by Willian Rosas MD at OR [facility] EXPLORATION OF MAXILLARY SINUS 06/07/2001 Sinus Surgery HYSTEROSCOPY W/BIOPSY AND/OR POLYPECTOMY W/WO D&C 02/14/2006 INFORMATION ablation INTRODUCTION OF CATHETER, AORTA 01/19/2023 CATHETER PLACEMENT, AORTA performed by Willian Rosas MD at [facility] LAP;OCCULSION OVIDUCTS/DEVICE 1985 LIGATE/CUT OVIDUCT(S) tubal ligation -rings [place] CORONARY ARTERY BYP W/VEIN & ARTERY GRAFT 3 VEIN 04/27/2022 KUMAR to LAD, SVG to PL of LCx and PDA of the RCA 04/27/[address] Whyte [facility]. PULMONARY FUNCTION TEST SCREEN 10/09/2001 normal REMOVE GALLBLADDER 04/1993 Cholecystectomy REPAIR OF NASAL SEPTUM 06/07/2001 Nasal Septum Repair SYNTH BYPASS, FEMORAL-POP Right 01/19/2023 BYPASS GRAFT OTHER THAN VEIN FEMORAL POPLITEAL performed by Willian Rosas MD at OR [facility] TOTAL ABD HYSTERECTOMY W/WO REMOVAL OF TUBE(S) 06/23/2008 & oopherectomy VAGINAL DELIVERY ONLY VENOGRAM EXTREMITY UNI-FLUOR Right 01/19/2023 IMAGING SUPERVISION & INTERPRETATION EXTREMITY VEIN performed by Willian Rosas MD at [facility] Family History Problem Relation Age of [...] Occupational History Occupation: retired. Employer: [employer] 115 Comment: [employer] [facility] [employer] Tobacco Use Smoking status: Former Packs/day: 0.90 [...] Yes Partners: Male control/protection: Surgical Comment: tubal. [id number] 1 daughter 28Y Other Topics Concern Service [...] amaurosis fugax. Cardiovascular: denies chest pain, denies FL, reports CHF, reports CAD s/p PCI in [...] stent 143/210/207/244, RCFA 187, RDFA 142, R HEAD SHIPPER - pop bpg occluded, R prox calf area of interest 1.86 cm x 2.02 cm, R prox calf dist anast [place] 54 The above diagnostic images were [...] both verts antegrade 11/2017 CT abd/pelv: moderate isvoo-gjbfn-rbrnnmr disease bilaterally LABS: Creatinine Results: Lab Results [...] were reviewed by me on 02/24/2023. IMPRESSIONS: Occluded R HEAD SHIPPER --> BK pop BPG, per 02/24/23 duplex. RANJITH remains stable when compared to 11/2022 study. R medial calf surgical incision with area of erythema and tenderness, concerning for infection R great toe ulcer, non-healing, questionable for osteomyelitis on physical exam Patent REIA stent and patent R DFA endart, per 03/27/22 duplex S/P RCFA => BK Pop BPG w/ cryopreserved vein, R DFA endarterectomy (beyond site of prox anastomosis), and REIA angioplasty 01/19/[address] Rosas. Asymptomatic R SCA stenosis, per RANJITH. S/P R CEA 05/02/22 @ [facility] Bilateral <50% carotid stenosis, per 2001 carotid duplex. Had carotid duplex completed on 12/21/22 in [place] per pt report, and she believes everything remains stable Followed by Dr. Dr. Jeffrey Campos, Senior Quality Control Technician, in [place] Former smoker. CAD, H/O PCI, s/p CABG x 3, 04/27/22 @ [facility] DM Dyslipidemia, on statin HTN CHF Anaphylactic nickel allergy PLAN: Returns sooner than expected for evaluation of possible right leg bypass infection Add-on RANJITH remains unchanged when compared to 11/2022 study Add-on RLE graft duplex indicates OCCLUDED R HEAD SHIPPER --> BK pop BPG Since she is about 2 weeks out from onset of RLE symptoms (started a few days after 02/09 office visit), and the fact that this is a cryopreserved vein graft, thrombectomy would be non-beneficial at this time [...] soapy water. Pat dry gently. NO SOAKING. [place] R great toe ulcer with betadine and [...] mapping of BUE's and Dr. Rosas or sooner prn (Case reviewed/discussed with on-call provider, Dr. Enciso) Evelyn Levine PA-C Vascular and Endovascular Surgery [facility] documented in this encounter Nursing Notes * Grecia Karimi MED ASSIST - 02/24/2023 11:10 AM EST Reviewed the option of transferring scripts to [facility] pharmacy with patient and / or family. [...] 03/01/2023 11:00 AM EST Appointment Vascular Lab [facility] [address] [place] [address] 03/01/2023 12:00 PM EST Office Visit Vascular Surg [facility] [address] [place] [address] Elver Gaona CRNP [address] [place] [address] 04/05/2023 11:30 AM EST Pharmacy Pharmacy, [facility] [address] [address] Pharmacist2, [facility] [address] [place] [address] 06/21/2023 10:15 AM EDT Office Visit Urology, [facility] [address] [facility] [place] [address] William Doe MD [address] [place] [address] [place] [address] 2023 3:00 PM EDT Office Visit Family Practice [facility] [address] [facility] [place] [address] Jonny Donaldson MD [address] [facility] [place] [address] Scheduled Orders Name Type Priority Associated Diagnoses [...] 11/15/1994 LUNG CANCER SCREENING - USE SMARTSET 35850 Completed 08/23/2022, 11/10/2020 Influenza Vaccine (FLU shot) Completed , 12/09/2021, 11/10/2020, Additional history exists GARDASIL-HPV IMMUNIZATION SERIES Aged Out No longer eligible based on patient's age to complete this topic MENINGOCOCCAL (MENACTRA/MENVEO) Aged Out No longer eligible based on patient's age to complete this topic documented as of this encounter Medical Devices Implanted Type Area Continuous Improvement Specialist Device Identifier Shelf Expiration Date Model / Serial / Lot Greater Than 80cm, 3mm-8mm Flora, Angiograft Pvd Saphenous Veins, Cryopreserved Implanted:Qty: 1 on 01/19/2023 by Willian Rosas MD at OR [facility] Right: Leg Upper LIFENET 07/29/2026 CV>80 / [id number] / [id number] documented as of this encounter Procedures Procedure Name Priority Date/Time Associated Diagnosis Comments XR TOES 2 OR MORE VIEWS Routine 02/24/2023 2:31 PM EST PAD (peripheral artery disease) (HCC) Skin ulcer of right great toe, unspecified ulcer stage (HCC) XR FOOT 3 OR MORE VIEWS Routine 02/24/2023 2:31 PM EST PAD (peripheral artery disease) ([facility]) Skin ulcer of right great toe, unspecified ulcer stage ([facility]) documented in this encounter Results * XR [...] No osteomyelitis. Evelyn Levine PA-C RADIOLOGY ( [facility]) documented in this encounter [...] Advance Directives occurred with: Patient Care Teams Body Stylist Relationship Specialty Start Date End Date Jonny Donaldson MD [address] [place] [address] PCP - General Family Medicine 05/27/14 documented as of this encounter
--- OUTSIDE RECORDS SUMMARY | 2023-03-02 22:33 | External Medical Summary | Summary of Care ---
Author Name Unknown Organization [facility] Address [address] [place] [address] Phone [phone] Care Team Providers Care Precision Millwright Name Role Phone Jonny Donaldson MD Primary Care Provider + Reason for Visit * Reason Onset Date Comments Advice 02/22/2023 Encounter Details Date Type Department Care Team (Late st Contact Info) Description 02/22/2023 Telephone Vascular Surg [facility] [address], [place] [id number] Services, [facility] [address] [place] [address] Advice Allergies Active Allergy Reactions Criticality Noted Date Comments Cephalexin 01/28/1996 rash Doxepin 02/01/2018 Dust 04/04/2001 Nickel Anaphylaxis High 04/04/2001 Paroxetine 04/28/2003 generic only, brand ok Penicillins 03/03/1995 Rash Sulfa Antibiotics 11/27/1994 Rash documented as of this encounter (statuses as of 02/22/2023) Medications Medication Sig Dispensed Refills Start Date End Date Status weave energyTOUCH ULTRA SYSTEM W/DEVICE KITIndications:DM type 2, goal [...] with renal manifestations, uncontrolled(250.4 2) ([facility]) Take one pill daily 100 Tab 3 01/28/2014 Active fluticasone (FLONASE) 50 MCG/ACT nasal spray Administer 2 Sprays into each nostril 2 times a day. 18.2 mL 5 10/14/2019 Active OneTouch Ultra Blue In Vitro Strip (Glucose Blood)Indications: Type 2 diabetes mellitus with hemoglobin A1c goal of less than 8.0% ([facility]) Use up to 3 times Daily E11.9 poorly controlled. 200 Strip 11 03/11/2021 Active BD Pen Needle Tanja U/F 32G X 4 MM (Insulin Pen Needle)Indications :Type 2 diabetes mellitus with hemoglobin A1c goal of less than 8.0% ([facility]) USE TO INJECT INSULIN 2-3 [...] goal of less than 8.0% ([facility]) Inject 15 Units under the [...] of the RCA 04/27/[address] Whyte [facility]. History of nonmelanoma skin cancer 05/25/2022 Overview: [...] Overview: 06/24/13 +CP-abnormal stress->cath @[facility]. 100% occlusion RCA with left- right [...] Overview: 04/20/12 AV Ablation-Dr Jeffrey Campos, [facility] Episode June 2011 around 03/12/12 [place] hosp-P175 SVT--sched for [place] EP study Routine general medical exam ination at a health care facility 11/11/2011 Overview: 01/18 Carotid US [place] stable 50-69 on left. 10/18 colonoscopy [facility] 3 3-5 polyps [address] colon-polypoid mucosa mild hyperplastic changes. Rectal polyp= hyperplastic polyp. Dr Juan Mak [facility] (11/19 06/14 Cologuard WNL. Cardiology-Jeffrey Campos [place]. 12/17 Carotid 50-69% left ICA stenosis. Vielka [...] PFT evidence of COPD ) 05/10 TTE @[place] Bboihspdht-digc-wxmjwg EF, mild LVH, Gr1 Feldman Dys 07/09 colonoscopy [facility] Endoscopy [place]-3 & 6mm polyp--PAth--Tubular adenoma 07/09 [place] TSH & celiac testing WNL 04/11 ER visit [facility] SVT--resolved with adenosine. 03/11 EKG-scanned [...] mRNA, LNP-s, No Pre serve, 2-Dose Series (Optovue) 01/24/2021,01/04/2021,06/03/2020 Hepatitis B, 20+ yrs 08/27/2009,03/30/2009,02/27 Pneumococcal [...] encounter Miscellaneous Notes * Telephone Encounter - Sammi Leal LPN - 02/22/2023 3:47 PM EST Patient made aware and voiced understanding. Sammi Leal LPN 02/22/2023 3:48 PM * Telephone Encounter - Anya Bullock [...] Please offer patient appt for tomorrow on [place] schedule please. Bypass with cryopreserved vein, higher [...] 11:00 AM EST Office Visit Vascular Surg [facility], [address] [address] Elver Gaona CRNP [facility] [place] [address] 03/01/2023 10:30 AM EST Appointment Vascular Lab [facility], [address] [address] 03/01/2023 11:00 AM EST Appointment Vascular Lab [facility], [address] [address] 03/01/2023 12:00 PM EST Appointment Vascular Lab [facility], [address] [address] 03/01/2023 12:15 PM EST Office Visit Vascular Surg [facility], [address] [address] Willian Rosas MD [address] [place] [address] 04/05/2023 11:30 AM EST Pharmacy Pharmacy, [facility] [address] [place] [address] Pharmacist2, [facility] [address] [place] [address] 06/21/2023 10:15 AM EDT Office Visit Urology, [facility] [address] [facility] [place] [address] William Doe MD 27 [facility] [address] [place] [address] 2023 3:00 PM EDT Office Visit Family Practice [facility] 132 [facility] [place] [address] Jonny Donaldson MD 132 [facility] [place] [address] Health Maintenance Due Date Last Done Comments [...] 11/15/1994 LUNG CANCER SCREENING - USE SMARTSET 53458 Completed 08/23/2022, 11/10/2020 Influenza Vaccine (FLU shot) Completed , 12/09/2021, 11/10/2020, Additional history exists GARDASIL-HPV IMMUNIZATION SERIES Aged Out No longer eligible based on patient's age to complete this topic MENINGOCOCCAL (MENACTRA/MENVEO) Aged Out No longer eligible based on patient's age to complete this topic documented as of this encounter Medical Devices Implanted Type Area Flask Cleaner Device Identifier Shelf Expiration Date Model / Serial / Lot Greater Than 80cm, 3mm-8mm Flora, Angiograft Pvd Saphenous Veins, Cryopreserved Implanted:Qty: 1 on 01/19/2023 by Willian Rosas MD at [place] [facility] Right: Leg Upper LIFENET 07/29/2026 CV>80 / [id number] / [id number] documented as of this encounter Advance [...] Advance Directives occurred with: Patient Care Teams Precision Millwright Relationship Specialty Start Date End Date Jonny Donaldson MD [address] [place] [address] PCP - General Family Medicine 05/27/14 documented as of this encounter
--- OUTSIDE RECORDS SUMMARY | 2023-03-02 22:33 | External Medical Summary | Summary of Care ---
Author Name Unknown Organization [facility] Address [address] [place] [address] Phone [phone] Care Team Providers Care Top Lift Compressor Name Role Phone Jonny Donaldson MD Primary Care Provider + Reason for Visit * Reason Onset Date Comments Advice 02/22/2023 Encounter Details Date Type Department Care Team (Late st Contact Info) Description 02/22/2023 Telephone Vascular Surg [facility] [address] [place], [place] [phone] Services, [facility] [address] [place] [address] Advice Allergies Active Allergy Reactions Criticality Noted Date Comments Cephalexin 01/28/1996 rash Doxepin 02/01/2018 Dust 04/04/2001 Nickel Anaphylaxis High 04/04/2001 Paroxetine 04/28/2003 generic only, brand ok Penicillins 03/03/1995 Rash Sulfa Antibiotics 11/27/1994 Rash documented as of this encounter (statuses as of 02/22/2023) Medications Medication Sig Dispensed Refills Start Date End Date Status BlueseedTOUCH ULTRA SYSTEM W/DEVICE KITIndications:DM type 2, goal [...] 04/27/[address] Whyte [facility]. History of nonmelanoma skin cancer 05/25/2022 Overview: [...] artery disease) 06/27/2013 Overview: 06/24/13 +CP-abnormal stress->cath @[facility]. 100% occlusion RCA with left- [...] 11/23/2011 Overview: 04/20/12 AV Ablation-Dr Jeffrey Campos, [facility] Episode June 2011 around 03/12/12 [place] hosp-P175 SVT--sched for [place] EP study Routine general medical exam ination at a health care facility 11/11/2011 Overview: 01/18 Carotid US [place] stable 50-69 on left. 10/18 colonoscopy [facility] 3 3-5 polyps PATH colon-polypoid mucosa mild hyperplastic changes. Rectal polyp= hyperplastic polyp. Dr Juan Mak [facility] (11/19 06/14 Cologuard WNL. Cardiology-Jeffrey Campos [place]. 12/17 Carotid 50-69% left ICA stenosis. Vielka [...] PFT evidence of COPD ) 05/10 TTE @[place] Ffazvxwmxk-mpmv-kekrzv EF, mild LVH, Gr1 Feldman Dys 07/09 colonoscopy [facility] [place]-3 & 6mm polyp--PAth--Tubular adenoma 07/09 [place] TSH & celiac testing WNL 04/11 ER visit [facility] SVT--resolved with adenosine. 03/11 EKG-scanned QTc [...] mRNA, LNP-s, No Pre serve, 2-Dose Series ([employer]) 01/24/2021,01/04/2021,06/03/2020 Hepatitis B, 20+ yrs 08/27/2009,03/30/2009,02/27 Pneumococcal [...] 11:00 AM EST Office Visit Vascular Surg [address] [address] Elver Gaona CRNP [address] [place] [address] 03/01/2023 10:30 AM EST Appointment Vascular Lab [address] [address] 03/01/2023 11:00 AM EST Appointment Vascular Lab [address] [address] 03/01/2023 12:00 PM EST Appointment Vascular Lab [address] [address] 03/01/2023 12:15 PM EST Office Visit Vascular Surg [facility] [address] [place] [address] Willian Rosas MD [address] [place] [address] 04/05/2023 11:30 AM EST Pharmacy Pharmacy, [facility] [address] [facility] [place] [address] Pharmacist2, [facility] [address] [facility] [place] [address] 06/21/2023 10:15 AM EDT Office Visit Urology, [facility] [address] [place] [address] William Doe MD [facility] [address] [place] [address] 2023 3:00 PM EDT Office Visit Family Practice [facility] [address] [place] [address] Jonny Donaldson MD 132 [facility] [place] [address] Health Maintenance Due Date Last Done Comments [...] 11/15/1994 LUNG CANCER SCREENING - USE SMARTSET 58451 Completed 08/23/2022, 11/10/2020 Influenza Vaccine (FLU shot) Completed , 12/09/2021, 11/10/2020, Additional history exists GARDASIL-HPV IMMUNIZATION SERIES Aged Out No longer eligible based on patient's age to complete this topic MENINGOCOCCAL (MENACTRA/MENVEO) Aged Out No longer eligible based on patient's age to complete this topic documented as of this encounter Medical Devices Implanted Type Area [employer] Lecturer Device Identifier Shelf Expiration Date Model / Serial / Lot Greater Than 80cm, 3mm-8mm Flora, Angiograft Pvd Saphenous Veins, Cryopreserved Implanted:Qty: 1 on 01/19/2023 by Willian Rosas MD at [facility] Right: Leg Upper LIFENET 07/29/2026 CV>80 / [id number] / [id number] documented as of this encounter Advance [...] Advance Directives occurred with: Patient Care Teams Top Lift Compressor Relationship Specialty Start Date End Date Jonny Donaldson MD [address] [place] [address] PCP - General Family Medicine 05/27/14 documented as of this encounter
--- OUTSIDE RECORDS SUMMARY | 2023-03-02 22:33 | External Medical Summary | Summary of Care ---
Author Name Unknown Organization [facility] Address [address] [place] [address] Phone [phone] Care Team Providers Care Custom Shop Worker Name Role Phone Jonny Donaldson MD Primary Care Provider + Reason for Visit * Reason Onset Date Comments Advice 02/24/2023 Encounter Details Date Type Department Care Team (Late st Contact Info) Description 02/24/2023 Telephone Vascular Surg [facility] [address] [place], [place] [phone] Evelyn Levine PA-C [address] [place], [place] [phone] Advice Allergies Active Allergy Reactions Criticality Noted [...] diabetes mellitus with renal manifestations, uncontrolled(250.4 2) ([facility]) Take one pill daily 100 Tab 3 01/28/2014 Active fluticasone (FLONASE) 50 MCG/ACT nasal spray Administer 2 Sprays into each nostril 2 times a day. 18.2 mL 5 10/14/2019 Active OneTouch Ultra Blue In Vitro Strip (Glucose Blood)Indications: Type 2 diabetes mellitus with hemoglobin A1c goal of less than 8.0% ([facility]) Use up to 3 times Daily E11.9 poorly controlled. 200 Strip 11 03/11/2021 Active BD Pen Needle Tanja U/F 32G X 4 MM (Insulin Pen Needle)Indications :Type 2 diabetes mellitus with hemoglobin A1c goal of less than 8.0% ([facility]) USE TO INJECT INSULIN 2-3 times per [...] hemoglobin A1c goal of less than 8.0% ([facility]) Inject 15 Units under the skin in [...] Overview: 06/24/13 +CP-abnormal stress->cath @[facility]. 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 [...] Overview: 04/20/12 AV Ablation-Dr Jeffrey Campos, [facility] Episode June 2011 around 03/12/12 [place] hosp-P175 SVT--sched for [place] EP study Routine general medical exam ination at a health care facility 11/11/2011 Overview: 01/18 Carotid US [place] stable 50-69 on left. 10/18 colonoscopy [facility] 3 3-5 polyps PATH colon-polypoid mucosa mild hyperplastic changes. Rectal polyp= hyperplastic polyp. Dr Juan Mak [facility] (11/19 06/14 Cologuard WNL. Cardiology-Jeffrey Campos [place]. 12/17 Carotid 50-69% left ICA stenosis. Vielka [...] PFT evidence of COPD ) 05/10 TTE @[place] Uxklzbrbgy-dyta-wrwzee EF, mild LVH, Gr1 Feldman Dys 07/09 colonoscopy [facility] [place]-3 & 6mm polyp--PAth--Tubular adenoma 07/09 [place] TSH & celiac testing WNL 04/11 ER visit [facility] SVT--resolved with adenosine. 03/11 EKG-scanned QTc 414 [...] mRNA, LNP-s, No Pre serve, 2-Dose Series ([employer]) 01/24/2021,01/04/2021,06/03/2020 Hepatitis B, 20+ yrs 08/27/2009,03/30/2009,02/27 Pneumococcal [...] from Dr. Jeffrey Campos's office (Cardiology) in [place], please? documented in this encounter Plan of Treatment Upcoming Encounters Date Type Department Care Team (Late st Contact Info) Description 03/01/2023 11:00 AM EST Appointment Vascular Lab [facility] [address] [place] [address] 03/01/2023 12:00 PM EST Office Visit Vascular Surg [facility] [address] [place] [address] Elver Gaona CRNP [address] [place] [address] 04/05/2023 11:30 AM EST Pharmacy Pharmacy, [facility] [address] [facility] [place] [address] Pharmacist2, [facility] [address] [facility] [place] [address] 06/21/2023 10:15 AM EDT Office Visit Urology, [facility] [address] [place] [address] William Doe MD [address] [place] [address] [place] [address] 2023 3:00 PM EDT Office Visit Family Practice [facility] [address] [place] [address] Jonny Donaldson MD [address] [place] [address] Health Maintenance Due Date Last Done Comments [...] 11/15/1994 LUNG CANCER SCREENING - USE SMARTSET [id number] Completed 08/23/2022, 11/10/2020 Influenza Vaccine (FLU shot) Completed , 12/09/2021, 11/10/2020, Additional history exists GARDASIL-HPV IMMUNIZATION SERIES Aged Out No longer eligible based on patient's age to complete this topic MENINGOCOCCAL (MENACTRA/MENVEO) Aged Out No longer eligible based on patient's age to complete this topic documented as of this encounter Medical Devices Implanted Type Area Slip Cover Estimator Device Identifier Shelf Expiration Date Model / Serial / Lot Greater Than 80cm, 3mm-8mm Flora, Angiograft Pvd Saphenous Veins, Cryopreserved Implanted:Qty: 1 on 01/19/2023 by Willian Rosas MD at [facility] Right: Leg Upper LIFENET 07/29/2026 CV>80 / [id number] / [id number] documented as of this encounter Advance [...] Advance Directives occurred with: Patient Care Teams Custom Shop Worker Relationship Specialty Start Date End Date Jonny Donaldson MD 132 [facility] [place] [address] PCP - General Family Medicine 05/27/14 documented as of this encounter
--- OUTSIDE RECORDS SUMMARY | 2023-03-02 22:33 | External Medical Summary | Summary of Care ---
Author Name Unknown Organization [facility] Address [address] [place] [address] Phone [phone] Care Team Providers Care Hand Endband Cutter Name Role Phone Jonny Donaldson MD Primary Care Provider + Reason for Visit * Reason Onset Date Comments Advice 02/24/2023 Encounter Details Date Type Department Care Team (Late st Contact Info) Description 02/24/2023 Telephone Vascular Surg [facility] [address] [place], [place] [phone] Evelyn Levine PA-C [address] [place], [place] [phone] Advice Allergies Active Allergy Reactions Criticality Noted [...] less than 8.0% ([facility]) Inject 15 Units under the skin [...] Overview: 06/24/13 +CP-abnormal stress->cath @[facility]. 100% occlusion RCA with left- right [...] 11/23/2011 Overview: 04/20/12 AV Ablation-Dr Jeffrey Campos, [facility] Episode June 2011 around 03/12/12 [place] hosp-P175 SVT--sched for [place] EP study Routine general medical exam ination at a health care facility 11/11/2011 Overview: 01/18 Carotid US [place] stable 50-69 on left. 10/18 colonoscopy [facility] 3 3-5 polyps PATH colon-polypoid mucosa mild hyperplastic changes. Rectal polyp= hyperplastic polyp. Dr Juan Mak [facility] (11/19 06/14 Cologuard WNL. Cardiology-Jeffrey Campos [place]. 12/17 Carotid 50-69% left ICA stenosis. Vielka [...] PFT evidence of COPD ) 05/10 TTE @[place] Wwfbncpize-ezuw-tcxqgy EF, mild LVH, Gr1 Feldman Dys 07/09 colonoscopy [facility] [place]-3 & 6mm polyp--PAth--Tubular adenoma 07/09 [place] TSH & celiac testing WNL 04/11 ER [...] mRNA, LNP-s, No Pre serve, 2-Dose Series ([employer]) 01/24/2021,01/04/2021,06/03/2020 Hepatitis B, 20+ yrs 08/27/2009,03/30/2009,02/27 Pneumococcal [...] 8:57 AM EDT Sexual Orientation Straight 05/09/2019 8 :57 AM EDT Job Start Date Occupation Industry [...] encounter Miscellaneous Notes * Telephone Encounter - Evelyn Levine PA-C - 02/24/2023 3:52 PM EST Secretaries - Can you obtain carotid duplex results report and imaging from 12/21/[address] Jeffrey Campos's office (Cardiology) in [place], please? documented in this encounter Plan of Treatment Upcoming Encounters Date Type Department Care Team (Late st Contact Info) Description 03/01/2023 11:00 AM EST Appointment Vascular Lab [facility] [address] [place] [address] 03/01/2023 12:00 PM EST Office Visit Vascular Surg [facility] [address] [place] [address] Elver Gaona CRNP [address] [place] [address] 04/05/2023 11:30 AM EST Pharmacy Pharmacy, [facility] [address] [facility] [place] [address] Pharmacist2, [facility] [address] [facility] [place] [address] 06/21/2023 10:15 AM EDT Office Visit Urology, [facility] [address] [facility] [place] [address] William Doe MD 27 [facility] [address] [place] [address] 2023 3:00 PM EDT Office Visit Family Practice [facility] [address] [place] [address] Jonny Donaldson MD [address] [place] [address] Health Maintenance Due Date Last Done Comments [...] 11/15/1994 LUNG CANCER SCREENING - USE SMARTSET 67364 Completed 08/23/2022, 11/10/2020 Influenza Vaccine (FLU shot) Completed , 12/09/2021, 11/10/2020, Additional history exists GARDASIL-HPV IMMUNIZATION SERIES Aged Out No longer eligible based on patient's age to complete this topic MENINGOCOCCAL (MENACTRA/MENVEO) Aged Out No longer eligible based on patient's age to complete this topic documented as of this encounter Medical Devices Implanted Type Area Adzing And Boring Machine Helper Device Identifier Shelf Expiration Date Model / Serial / Lot Greater Than 80cm, 3mm-8mm Flora, Angiograft Pvd Saphenous Veins, Cryopreserved Implanted:Qty: 1 on 01/19/2023 by Willian Rosas MD at [facility] Right: Leg Upper LIFENET 07/29/2026 CV>80 / [id number] / [id number] documented as of this encounter Advance [...] Advance Directives occurred with: Patient Care Teams Hand Endband Cutter Relationship Specialty Start Date End Date Jonny Donaldson MD [address] [place] [address] PCP - General Family Medicine 05/27/14 documented as of this encounter
--- OUTSIDE RECORDS SUMMARY | 2023-03-02 22:34 | External Medical Summary | Summary of Care ---
Author Name Unknown Organization [facility] Address [address] [place] [address] Phone [phone] Care Team Providers Care Radiology Teacher Name Role Phone Jonny Donaldson MD Primary Care Provider + Reason for Visit * Reason Onset Date Comments Appointment 01/30/2023 Encounter Details Date Type Department Care Team (Late st Contact Info) Description 01/30/2023 Telephone Urology, [facility] [address] [place], [place] [phone] Services, Scheduling [address] [place] [address] Appointment Allergies Active Allergy Reactions Criticality Noted Date Comments Cephalexin 01/28/1996 rash Doxepin 02/01/2018 Dust 04/04/2001 Nickel Anaphylaxis High 04/04/2001 Paroxetine 04/28/2003 generic only, brand ok Penicillins 03/03/1995 Rash Sulfa Antibiotics 11/27/1994 Rash documented as of this encounter (statuses as of 01/30/2023) Medications Medication Sig Dispensed Refills Start Date [...] with renal manifestations, uncontrolled(250.4 2) ([facility]) Take one pill daily 100 Tab 3 01/28/2014 Active fluticasone (FLONASE) 50 MCG/ACT nasal spray Administer 2 Sprays into each nostril 2 times a day. 18.2 mL 5 10/14/2019 Active OneTouch Ultra Blue In Vitro Strip (Glucose Blood)Indications: Type 2 diabetes mellitus with hemoglobin A1c goal of less than 8.0% ([facility]) Use up to 3 times Daily E11.9 poorly controlled. 200 Strip 11 03/11/2021 Active BD Pen Needle Tanja U/F 32G X 4 MM (Insulin Pen Needle)Indications :Type 2 diabetes mellitus with hemoglobin A1c goal of less than 8.0% ([facility]) USE TO INJECT INSULIN 2-3 times [...] once daily 60 mL 3 12/30/2022 Active NovoLOG FlexPen 100 UNIT/ML Subcutaneous Solution Pen-injector (insulin aspart)Indications :Type 2 diabetes mellitus with hemoglobin A1c goal of less than 8.0% (HCC) Inject 10 Units under the skin in the morning and 10 Units at noon and 10 Units in the evening. Inject with meals. 30 mL 3 12/30/2022 Active Amitriptyline HCl 50 [...] THE MORNING 90 Tablet 1 01/16/2023 Active Doxycycline Hyclate 100 MG Oral Capsule Take 1 Capsule by mouth in the morning and 1 Capsule before bedtime. Do all this for 12 days. 24 Capsule 0 01/21/2023 3 Active Cefuroxime Axetil 500 MG Oral Tablet (Ceftin) Take 1 Tablet by mouth in the morning and 1 Tablet before bedtime. Do all this for 12 days. 24 Tablet 0 01/21/2023 3 Active traMADol HCl 50 MG Oral Tablet (Ultram)Indication s:Sciatica, unspecified laterality Take 1-2 Tablets by mouth every 6 hours as needed (pain). 60 Tablet 0 01/23/2023 Active AZO Cranberry 250-30 MG Oral Tablet Take by mouth daily. 0 Acti ve Probiotic Acidophilus Oral Tablet Chewable Take by mouth daily. 0 Active documented as of this encounter (statuses as of 01/30/2023) Active Problems Problem Noted Date Diagnosed Date Acute lower limb ischemia 01/19/2023 Diabetic foot infection 01/19/2023 COPD, group A, by GOLD 2017 classification 01/09 Overview: Per COPD GOLD Classification Urge incontinence of urine 11/28/2022 S/P CABG x 3 06/01/2022 Overview: KUMAR to LAD, SVG to PL of LCx and PDA of the RCA 04/27/[address] Whyte [facility]. History of nonmelanoma skin cancer [...] 06/27/2013 Overview: 06/24/13 +CP-abnormal stress->cath @[facility]. 100% occlusion RCA with left- right [...] 11/23/2011 Overview: 04/20/12 AV Ablation-Dr Jeffrey Campos, [facility] Episode June 2011 around 03/12/12 [place] hosp-P175 SVT--sched for [place] EP study Routine general medical exam ination at a health care facility 11/11/2011 Overview: 01/18 Carotid US [place] stable 50-69 on left. 10/18 colonoscopy [facility] 3 3-[address] Juan Mak [facility] (11/19 06/14 Cologuard WNL. Cardiology-Jeffrey Campos [place]. 12/17 Carotid 50-69% left ICA stenosis. Vielka [...] PFT evidence of COPD ) 05/10 TTE @[place] Reqnsofbni-shsb-anaqrf EF, mild LVH, Gr1 Feldman Dys 07/09 colonoscopy [facility] [place]-3 & 6mm polyp--PAth--Tubular adenoma 07/09 [place] TSH & celiac testing WNL 04/11 ER visit [facility] SVT--resolved with adenosine. 03/11 EKG-scanned QTc 414 [...] as of this encounter (statuses as of 01/30/2023) Resolved Problems Problem Noted Date Diagnosed Date [...] as of this encounter (statuses as of 01/30/2023) Immunizations Name Administration Dates Next Due COVID-19 mRNA, LNP-s, No Pre serve, 2-Dose Series ([employer]) 01/24/2021,01/04/2021,06/03/2020 Hepatitis B, 20+ yrs 08/27/2009,03/30/2009,02/27 Pneumococcal Conjugate Vacc, 13 Valent (Prevnar) 01/28/2022 Pneumococcal Polysaccharide PPV23 (Pneumovax) 10/20/2020 SEASONAL INFLUENZA, PF, 6 M & Above, IM , (FLULAVAL or FLUZONE) 11/27/2019,11/01/2018,12/15/2017,10/29 Seasonal Influenza, Quadriva lent Hd (Fluzone [...] shopping? (15 years old or older) Yes 11/23/20 23 Cognitive Status Response Date of Assessm ent Because of a physical, menta l, or emotional condition, do you have serious difficulty concentrating, remembering, or making decisions? (5 years old or older) No 01/19/2023 documented as of this encounter Miscellaneous Notes * Telephone Encounter - Harmony Viera OSA - 01/30/2023 8:30 AM EST Pt has microscopic hematuria and also small kidney stones that she is not worried about, she also has incontinence. Pt has had imaging done in Nov/Dec. Pt wants to come to [facility]. Please call to schedule. Thank you Harmony documented in this encounter Plan of Treatment Upcoming Encounters Date Type Department Care Team (Late st Contact Info) Description 02/01/2023 10:40 AM EST [facility] Visit [facility] 132 [facility] [place] [address] Jonny Donaldson MD 132 [facility] [place] [address] 02/08/2023 1:30 PM EST Office Visit Pharmacy, [facility] 200 [facility] [place] [address] Pharmacist2, [facility] [address] [facility] [place] [address] 02/09/2023 9:10 AM EST Office Visit Vascular Surgery, [address] [address] Americo Landis MD [address] [place] [address] 03/01/2023 10:30 AM EST Appointment Vascular Lab [facility] [address] [place] [address] 03/01/2023 11:00 AM EST Appointment Vascular Lab [facility] [address] [place] [address] 03/01/2023 12:00 PM EST Appointment Vascular Lab [facility] [address] [place] [address] 03/01/2023 12:15 PM EST Office Visit Vascular Surg [facility] [address] [place] [address] Willian Rosas MD [address] [place] [address] 2023 3:00 PM EDT Office Visit Family Practice [facility] [address] [place] [address] Jonny Donaldson MD [address] [place] [address] Health Maintenance Due Date Last Done Comments [...] 11/15/1994 LUNG CANCER SCREENING - USE SMARTSET 30144 Completed 08/23/2022, 11/10/2020 Influenza Vaccine (FLU shot) Completed , 12/09/2021, 11/10/2020, Additional history exists GARDASIL-HPV IMMUNIZATION SERIES Aged Out No longer eligible based on patient's age to complete this topic MENINGOCOCCAL (MENACTRA/MENVEO) Aged Out No longer eligible based on patient's age to complete this topic documented as of this encounter Medical Devices Implanted Type Area Filterer Device Identifier Shelf Expiration Date Model / Serial / Lot Greater Than 80cm, 3mm-8mm Flora, Angiograft Pvd Saphenous Veins, Cryopreserved Implanted:Qty: 1 on 01/19/2023 by Willian Rosas MD at [facility] Right: Leg Upper LIFENET 07/29/2026 CV>80 / [id number] / [id number] documented as of this encounter Advance [...] Advance Directives occurred with: Patient Care Teams Radiology Teacher Relationship Specialty Start Date End Date Jonny Donaldson MD [address] [place] [address] PCP - General Family Medicine 05/27/14 documented as of this encounter
--- OUTSIDE RECORDS SUMMARY | 2023-03-02 22:34 | External Medical Summary | Summary of Care ---
Author Name Unknown Organization [facility] Address [address] [place] [address] Phone [phone] Care Team Providers Care Lacquer Shader Name Role Phone Jonny Donaldson MD Primary Care Provider + Reason for Visit * Reason Onset Date Comments Advice 02/22/2023 Encounter Details Date Type Department Care Team (Late st Contact Info) Description 02/22/2023 Telephone Vascular Surg [facility] [address], [place] [id number] Services, On License Of [facility] [address] [place] [address] Advice Allergies Active Allergy Reactions Criticality Noted Date Comments Cephalexin 01/28/1996 rash Doxepin 02/01/2018 Dust 04/04/2001 Nickel Anaphylaxis High 04/04/2001 Paroxetine 04/28/2003 generic only, brand ok Penicillins 03/03/1995 Rash Sulfa Antibiotics 11/27/1994 Rash documented as of this encounter (statuses as of 02/22/2023) Medications Medication Sig Dispensed Refills Start Date End Date Status [place] NetworkTOUCH ULTRA SYSTEM W/DEVICE KITIndications:DM type 2, goal [...] with renal manifestations, uncontrolled(250.4 2) ([facility]) Take one pill daily 100 Tab 3 01/28/2014 Active fluticasone (FLONASE) 50 MCG/ACT nasal spray Administer 2 Sprays into each nostril 2 times a day. 18.2 mL 5 10/14/2019 Active OneTouch Ultra Blue In Vitro Strip (Glucose Blood)Indications: Type 2 diabetes mellitus with hemoglobin A1c goal of less than 8.0% ([facility]) Use up to 3 times Daily E11.9 poorly controlled. 200 Strip 11 03/11/2021 Active BD Pen Needle Tanja U/F 32G X 4 MM (Insulin Pen Needle)Indications :Type 2 diabetes mellitus with hemoglobin A1c goal of less than 8.0% ([facility]) USE TO INJECT INSULIN 2-3 times [...] goal of less than 8.0% ([facility]) Inject 15 Units under the skin [...] of the RCA 04/27/[address] Whyte [facility]. History of nonmelanoma skin [...] artery disease) 06/27/2013 Overview: 06/24/13 +CP-abnormal stress->cath @[facility]. 100% occlusion RCA with left- [...] 11/23/2011 Overview: 04/20/12 AV Ablation-Dr Jeffrey Campos, [facility] Episode June 2011 around 03/12/12 [facility] [id number] SVT--sched for [facility] EP study Routine general medical exam ination at a health care facility 11/11/2011 Overview: 01/18 Carotid US [facility] stable 50-69 on left. 10/18 colonoscopy [facility] 3 3-5 polyps PATH colon-polypoid mucosa mild hyperplastic changes. Rectal polyp= hyperplastic polyp. Dr Juan Mak [facility] (11/19 06/14 Cologuard WNL. Cardiology-Jeffrey Campos [facility]. 12/17 Carotid 50-69% left ICA stenosis. Vielka [...] PFT evidence of COPD ) 05/10 TTE @[facility] [id number] EF, mild LVH, Gr1 Feldman Dys 07/09 colonoscopy [facility]-3 & 6mm polyp--PAth--Tubular adenoma 07/09 [facility] TSH & celiac testing WNL 04/11 ER [...] mRNA, LNP-s, No Pre serve, 2-Dose Series ([employer]) 01/24/2021,01/04/2021,06/03/2020 Hepatitis B, 20+ yrs 08/27/2009,03/30/2009,02/27 Pneumococcal [...] encounter Miscellaneous Notes * Telephone Encounter - Tammie Joy OSA [...] 03/01/2023 10:30 AM EST Appointment Vascular [facility] [place] [address] [place] [address] 03/01/2023 11:00 AM EST Appointment Vascular Lab [address] [address] 03/01/2023 12:00 PM EST Appointment Vascular Lab [facility], [address] [address] 03/01/2023 12:15 PM EST Office Visit Vascular Surg [address] [address] Willian Rosas MD [address] [place] [address] 04/05/2023 11:30 AM EST Pharmacy Pharmacy, [facility] [address] [address] [place] [address] Pharmacist2, [facility] [address] [place] [address] 06/21/2023 10:15 AM EDT Office Visit Urology, [facility] [address] [facility] [place] [address] William Doe MD [address] [facility] [address] [place] [address] 2023 3:00 PM EDT Office Visit Family [facility] [address] [place] [address] Jonny Donaldson MD [address] [place] [address] Health Maintenance Due Date Last Done Comments [...] 11/15/1994 LUNG CANCER SCREENING - USE SMARTSET [id number] Completed 08/23/2022, 11/10/2020 Influenza Vaccine (FLU shot) Completed , 12/09/2021, 11/10/2020, Additional history exists GARDASIL-HPV IMMUNIZATION SERIES Aged Out No longer eligible based on patient's age to complete this topic MENINGOCOCCAL (MENACTRA/MENVEO) Aged Out No longer eligible based on patient's age to complete this topic documented as of this encounter Medical Devices Implanted Type Area Link Trainer Maintenance Worker Device Identifier Shelf Expiration Date Model / Serial / Lot Greater Than 80cm, 3mm-8mm Flora, Angiograft Pvd Saphenous Veins, Cryopreserved Implanted:Qty: 1 on 01/19/2023 by Willian Rosas MD at [place] [facility] Right: Leg Upper LIFENET 07/29/2026 CV>80 / [id number] / [id number] documented as of this encounter Advance [...] Advance Directives occurred with: Patient Care Teams Lacquer Shader Relationship Specialty Start Date End Date Jonny Donaldson MD [address] [place] [id number] PCP - General Family Medicine 05/27/14 documented as of this encounter
--- OUTSIDE RECORDS SUMMARY | 2023-03-02 22:34 | External Medical Summary | Summary of Care ---
Author Name Unknown Organization [facility] Address [address] [place] [address] Phone [phone] Care Team Providers Care Variety Lathe Operator Name Role Phone Jonny Donaldson MD Primary Care Provider + Reason for Visit * Reason Comments Post-Op Encounter Details Date Type Department Care Team (Late st Contact Info) Description 01/25/2023 9:30 AM EST Office Visit Vascular Surgery, [facility] [address] [facility] [place] [address] Robert Alejo MD [address] [place] [address] PAD (peripheral artery disease) ([facility])* Allergies Active Allergy Reactions Criticality Noted Date Comments Cephalexin 01/28/1996 rash Doxepin 02/01/2018 Dust 04/04/2001 Nickel Anaphylaxis High 04/04/2001 Paroxetine 04/28/2003 generic only, brand ok Penicillins 03/03/1995 Rash Sulfa Antibiotics 11/27/1994 Rash documented as of this encounter (statuses as of 01/25/2023) Medications Medication Sig Dispensed Refills Start Date [...] with renal manifestations, uncontrolled(250.4 2) ([facility]) Take one pill daily 100 Tab 3 01/28/2014 Active fluticasone (FLONASE) 50 MCG/ACT nasal spray Administer 2 Sprays into each nostril 2 times a day. 18.2 mL 5 10/14/2019 Active OneTouch Ultra Blue In Vitro Strip (Glucose Blood)Indications: Type 2 diabetes mellitus with hemoglobin A1c goal of less than 8.0% ([facility]) Use up to 3 times Daily E11.9 poorly controlled. 200 Strip 11 03/11/2021 Active BD Pen Needle Tanja U/F 32G X 4 MM (Insulin Pen Needle)Indications :Type 2 diabetes mellitus with hemoglobin A1c goal of less than 8.0% ([facility]) USE TO INJECT INSULIN 2-3 times [...] Chewable Take by mouth daily. 0 Active Fluconazole 150 MG Oral Tablet (Diflucan) Take 1 Tablet by mouth once for 1 dose. If still symptomatic after 48-72 hours, take 1 more dose 1 Tablet 1 01/25/2023 3 Active documented as of this encounter (statuses as of 01/25/2023) Active Problems Problem Noted Date Diagnosed Date Acute lower limb ischemia 01/19/2023 Diabetic foot infection 01/19/2023 COPD, group A, by GOLD 2017 classification 01/09 Overview: Per COPD GOLD Classification Urge incontinence of urine 11/28/2022 S/P CABG x 3 06/01/2022 Overview: KUMAR to LAD, SVG to PL of LCx and PDA of the RCA 04/27/[address]te [facility]. History of nonmelanoma skin cancer 05/25/2022 [...] Overview: 06/24/13 +CP-abnormal stress->cath @[facility]. 100% occlusion RCA with left- right [...] 11/23/2011 Overview: 04/20/12 AV Ablation-Dr Jeffrey Campos, [facility] Episode June 2011 around 03/12/12 [facility]-P175 SVT--sched for [facility] EP study Routine general medical exam ination at a health care facility 11/11/2011 Overview: 01/18 Carotid US [facility] stable 50-69 on left. 10/18 colonoscopy [facility] 3 3-[address] Juan Mak [facility] (11/19 06/14 Cologuard WNL. Cardiology-Jeffrey Campos [facility]. 12/17 Carotid 50-69% left ICA stenosis. Vielka [...] PFT evidence of COPD ) 05/10 TTE @[facility] Ifqsljbngc-gavu-xdbzom EF, mild LVH, Gr1 Feldman Dys 07/09 colonoscopy [facility] Endoscopy [facility]-3 & 6mm polyp--PAth--Tubular adenoma 07/09 [facility] TSH & celiac testing WNL 04/11 ER visit [facility] SVT--resolved with adenosine. 03/11 EKG-scanned QTc 414 [...] as of this encounter (statuses as of 01/25/2023) Resolved Problems Problem Noted Date Diagnosed Date [...] as of this encounter (statuses as of 01/25/2023) Immunizations Name Administration Dates Next Due COVID-19 mRNA, LNP-s, No Pre serve, 2-Dose Series (Proton Therapy) 01/24/2021,01/04/2021,06/03/2020 Hepatitis B, 20+ yrs 08/27/2009,03/30/2009,02/27 Pneumococcal [...] Sign Reading Time Taken Comments Blood Pressure 128/70 01/25/2023 9:50 AM EST Pulse 88 01/25/2023 9:50 AM EST Temperature 35.9 C (96.6 F) 01/25/2023 9:50 AM ES T Respiratory Rate - - Oxygen Saturation - - Inhaled Oxygen Concentration - - Weight 112.8 kg (248 lb 9.6 oz) 01/25/2023 9:50 AM EST Height - - Body Mass Index 34.67 01/19/2023 12:56 AM EST documented in this [...] as of this encounter Progress Notes * Darnell Chavez PA-C - 01/25/2023 9:30 AM EST Images from the original note were not included. Date of Service: 01/25/2023 10:30 AM Mariia Liao is a 67 year old female. Referring Physician: Jonny Donaldson MD Chief Complaint: Return pt, PAD, lost to follow up Last seen: 11/01/2019 Now a former smoker, quit Nov 2019 Underwent CABG x 3, 04/27/22 @ [facility] and a RCEA 05/02/22, also @ [facility] Presented to [facility] ER with non-healing ulcer of right great toe, progressive pain in RLE & SSTI Was transferred to [facility], via [facility]. On 01/19/23 pt underwent the following by Dr. Rosas: RCFA to BK Pop Art BPG w/ cryopreserved vein RDFA endarterectomy, beyond the site of our bypass proximal anastomosis (common femoral endarterectomy also performed as part of the revascularization) PTCA REIA Discharged 01/22/23, on Doxy and Cefuroxime, with stop date 02/02/23, as well as Rivaroxaban 2.5 mg BID Doing well since surgery. Taking antibiotics, feels like she is getting a yeast infection No rest pain Right great toe feeling ok, continues to have some pain, not worse Some RLE edema She is elevating the RLE HPI: Pleasant diabetic smoker with HTN, dyslipidemia, CAD, and CHF who presents today with leg pain. Shereports several years of hypersensitive legs, simply hurting with someone just touching them. Also has cramping and muscle twitching in her calves. Noted some varicose veins in the calves and concernthese may be symptomatic. Does report hip pain with walking and feeling like she does not have strength. Hx of low back pain and bilateral sciatica. Unable to stand for prolonged period of time as her L leg will go numb. PERIPHERAL VASCULAR DISEASE: Reports claudication is unchanged. Onset of claudication at variable . Maximum walking distance of variable . Claudication distance is variable. Claudication involves right and left lower extremity equally severe. Claudication occurs in thigh, hips. Denies rest pain. Patient has frequent nocturnal leg cramps. CAROTID/SUBCLAVIAN DISEASE: Patient denies recent TIA, recent stroke and recent amaurosis fugax. 06/18/18: carotid duplex REPORT: RENNY - 97/38, R subclavian 378, R vert abnormal LICA - 155/52, L subclavian 247 R SCA disease noted, denies any R arm fatigue. Carotid duplex exam today reveals RENNY < 50% stenosis and LICA 50-69% stenosis, both verts antegrade Current Outpatient Medications Medication Sig Dispense Refill Sway MedicalUCH ULTRA SYSTEM W/DEVICE KIT Use up to four times a day as directed 1 0 ONETOUCH ULTRASOFT LANCETS [facility] for testing blood sugar 4 times per [...] 54 units once daily 60 mL 3 NovoLOG FlexPen 100 UNIT/ML Subcutaneous Solution Pen-injector (insulin aspart) Inject 10 Units under the skin in the morning and 10 Units at noon and 10 Units in the evening. Inject with meals. 30 mL 3 Amitriptyline HCl 50 MG Oral Tablet (Elavil) TAKE ONE TABLET BY MOUTH EVERY DAY 90 Tablet 1 LORazepam 0.5 MG Oral Tablet (Ativan) Take 1 Tablet by mouth every 8 hours as needed for Anxiety orInsomnia. 40 Tablet 0 Jardiance 10 MG Oral Tablet (Empagliflozin) TAKE 1 TABLET IN THE MORNING 90 Tablet 1 Doxycycline Hyclate 100 MG Oral Capsule Take 1 Capsule by mouth in the morning and 1 Capsule beforebedtime. Do all this for 12 days. 24 Capsule 0 Cefuroxime Axetil 500 MG Oral Tablet (Ceftin) Take 1 Tablet by mouth in the morning and 1 Tablet before bedtime. Do all this for 12 days. 24 Tablet 0 traMADol HCl 50 MG Oral Tablet (Ultram) Take 1-2 Tablets by mouth every 6 hours as needed (pain). 60 Tablet 0 AZO Cranberry 250-30 MG Oral Tablet Take by mouth daily. Probiotic Acidophilus Oral Tablet Chewable Take by mouth daily. Fluconazole 150 MG Oral Tablet (Diflucan) Take 1 Tablet by mouth once for 1 dose. If still symptomatic after 48-72 hours, take 1 more dose 1 Tablet 1 No current facility-administered medications for this visit. [...] Type 2 diabetes mellitus with diabetic nephropathy ([facility]) E11.21 HTN, goal below 130/80 I10 Routine general medical examination at a health care facility Z00.00 SVT (supraventricular tachycardia) I47.10 Type 2 diabetes mellitus with hemoglobin A1c goal of less than 8.0% ([facility]) E11.9 DM type 2 causing neurological disease ([facility]) E11.49 CAD (coronary artery disease) I25.10 Heart failure, systolic, due to CAD I50.20, I25.10 S/P drug eluting coronary stent placement Z95.5 Inguinal hernia, right K40.90 Diabetic retinopathy, nonproliferative, moderate ([facility]) E11.3399 Sensorineural hearing loss (SNHL) of both ears H90.3 Diabetic macular edema of both eyes ([facility]) E11.311 Type 2 diabetes mellitus with diabetic nephropathy, with long-term current use of insulin ([facility]) E11.21, Z79.4 Carpal tunnel syndrome on right G56.01 PAD (peripheral artery disease) ([facility]) I73.9 Other emphysema ([facility]) J43.8 Carotid artery stenosis without cerebral infarction, left I65.22 History of 2019 novel coronavirus disease (COVID-19) Z86.16 History of nonmelanoma skin cancer Z85.828 S/P CABG x 3 Z95.1 History of completed stroke Z86.73 Urge incontinence of urine N39.41 COPD, group A, by GOLD 2017 classification ([facility]) J44.9 Acute lower limb ischemia I99.8 Diabetic foot infection E11.628, L08.9 Past Medical History: Diagnosis Date Allergic rhinitis Background diabetic retinopathy(362.01) 05/27/201405/[address] Montez Q6mo monitoring Benign neoplasm of colon 07/30/2010 polyps x 2--adenomatous tissue--repeat in 3 yrs , diverticulosis & fair prep-- CAD (coronary artery disease) 06/27/2013 06/24/13 +CP-abnormal stress->cath @[facility]. 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 85% Circ (stented RACHAEL), LAD 20%. EF shows inferior hypokinesis EF 45% Carotid artery stenosis without cerebral infarction, left 12/30/2020 Chronic sinusitis 06/07/2001 Diabetic macular edema of both eyes ([facility]) 01/14/2019 DM type 2, goal A1C [...] macular edema associated with type2 diabetes mellitus ([facility]) 05/31/2021 Open wound of trunk 05/2008 [...] DYSRHYTHM FOCUS 04/20/2012 AV Ablation-Dr Jeffrey Campos, [facility] BREAST LESION,OTHER,EXCISION Left benign BYPASS GRFT OTHER-CAROTID Right 05/02/[address] Oshea [facility] CARDIAC CATH SCANNED RESULT 06/24/2013 +Circ stent RACHAEL. CARPAL TUNNEL SURGERY 08/1992 Carpal Tunnel repair CARPAL TUNNEL SURGERY Left 12/11/2019 NEUROPLASTY MEDIAN NERVE AT CARPAL TUNNEL performed by Pankaj Osorio MD at OR [facility] COLONOSCOPY W/ LESION REMOVAL, SNARE 07/30/2010 polyps x 2--adenomatous tissue--repeat in 3 yrs , diverticulosis & fair prep-- COLONOSCOPY, DIAGNOSTIC (RECTUM) 10/02/2015 adenomatous polyps, diverticulosis, poor prep, repeat 1 yr/[facility] ENDART DEEP FEMORAL Right 01/19/2023 DEEP FEMORAL ENDARTERECTOMY performed by Willian Rosas MD at OR [facility] EXPLORATION OF MAXILLARY SINUS 06/07/2001 Sinus Surgery HYSTEROSCOPY W/BIOPSY AND/OR POLYPECTOMY W/WO D&C 02/14/2006 INFORMATION ablation INTRODUCTION OF CATHETER, AORTA 01/19/2023 CATHETER PLACEMENT, AORTA performed by Willian Rosas MD at OR [facility] LAP;OCCULSION OVIDUCTS/DEVICE 1985 LIGATE/CUT OVIDUCT(S) tubal ligation -rings [place] CORONARY ARTERY BYP W/VEIN & ARTERY GRAFT 3 VEIN 04/27/2022 KUMAR to LAD, SVG to PL of LCx and PDA of the RCA 04/27/[address] Whyte [facility]. PULMONARY FUNCTION TEST SCREEN 10/09/2001 normal REMOVE GALLBLADDER 04/1993 Cholecystectomy REPAIR OF NASAL SEPTUM 06/07/2001 Nasal Septum Repair SYNTH BYPASS, FEMORAL-POP Right 01/19/2023 BYPASS GRAFT OTHER THAN VEIN FEMORAL POPLITEAL performed by Willian Rosas MD at OR [facility] TOTAL ABD HYSTERECTOMY W/WO REMOVAL OF TUBE(S) 06/23/2008 & oopherectomy VAGINAL DELIVERY ONLY VENOGRAM EXTREMITY UNI-FLUOR Right 01/19/2023 IMAGING SUPERVISION & INTERPRETATION EXTREMITY VEIN performed by Willian Rosas MD at [facility] Family History Problem Relation Age of [...] on file Occupational History Occupation: retired. Employer: [employer] [id number] Comment: [employer] [facility] Tobacco Use Smoking status: Former Packs/day: 0.90 Years: 40.00 Additional pack years: 0.00 Total pack years: 36.00 Types: Cigarettes Quit date: 12/08/2021 Years since quittin.1 Smokeless tobacco: Never Tobacco comments: 10/04/2019 smokes 15 cigarettes per day on booklet and patches Vaping Use Vaping Use: Never used Substance and Sexual Activity Alcohol use: Yes Comment: very rare Drug use: No Sexual activity: Yes Partners: Male control/protection: Surgical Comment: tubal. [id number] 1 daughter 28Y Other Topics Concern Service [...] Vaping/E-Cigarette Devices REVIEW OF SYSTEMS: Constitutional: Denies fever. Eyes: Denies amaurosis fugax. Cardiovascular: denies chest pains, denies [place], reports CHF, reports CAD s/p PCI in 2013. Respiratory: denies shortness of breath, reports PINEDA. Musculoskeletal: reports arthritis, reports chronic low back pain. Skin: denies ulcers. Neurological: denies TIA, denies CVA, denies amaurosis fugax. Psychiatric: reports anxiety. Endocrine: reports NIDDM, reports hyperlipidemia. GENERAL MULTI-SYSTEM PHYSICAL EXAM: VITAL SIGNS: BP 128/70 (BP Site: Left Arm, BP Position: Sitting, BP Cuff Size: Regular) | Pulse 88 | Temp 35.9 C (96.6 F) (Temporal Artery) | Wt 112.8 kg (248 lb 9.6 oz) | LMP 03/13/2008 | BMI 34.67 kg/m | BSA 2.38 m GENERAL MULTI-SYSTEM PHYSICAL EXAM: GENERAL: Normal grooming habits, no acute distress and appears stated age. NECK: No masses. RCEA scar RESPIRATORY: respiratory effort normal and breath sounds abnormal with expiratory wheezing noted bilaterally. CARDIOVASCULAR: RRR, and systolic murmur II/. Mild-moderate RLL edema GASTROINTESTINAL: no tenderness, protuberant and abdominal aorta not palpable. SKIN: No rash, no induration, capillary refill normal and no dependent rubor. Ulcer of medial aspect of right great toe PSYCHIATRIC: orientation to time, place and person normal and recent and remote memory normal. EYES: conjunctivae normal. NEUROLOGIC: Motor function grossly intact RIGHT GROIN incision intact, some superficial skin tape abrasions RIGHT Leg Incision: intact with nylon sutures PULSE SCALE: Carotid Right:----Bruit: No Left:----Bruit: Yes Radial Right: 2 Left: 3 Femoral Right: 1 Left: 1 Popliteal Right: 0, multiphasic doppler graft signal, superior/medial to lower leg incision Left: 0 Dorsalis Pedis Right: 0, multiphasic doppler signal Left: 0 Posterior Tibial Right: 0, multiphasic doppler signal Left: 0 PULSE SCALE: 4=Aneurysmal; 3=Normal; 2=Diminished; 1=Barely Palpable; 0=Absent ADDITIONAL PHYSICAL EXAM DIAGNOSTIC STUDIES: 12/23/22 RANJITH: 0.48/0.65, monophasic toe PPGs The above diagnostic images were directly visualized and independently interpreted by me on 01/25/2023 with results as above 10/18/19 CTA aorta/runoff: moderate aortoiliac disease with distal aortic stenosis (no focal high-grade stenosis), bilateral femoral disease, Right SFA occlusion, Left SFA diseased 10/04/19: Exercise doppler: she did have R>L calf claudication while on the treadmill R at rest 0.59/with exercise 0.31 L at rest 0.94/with exercise 0.62 10/04/19: carotid duplex: RENNY 106/25, LICA 162/20, both verts antegrade 11/2017 CT abd/pelv: moderate ujela-mssmf-eozyjik disease bilaterally IMPRESSIONS: S/P RCFA to BK Pop Art BPG w/ cryopreserved vein, RDFA endarterectomy, beyond the site of our bypass proximal anastomosis (common femoral endarterectomy also performed as part of the revascularization) & PTCA REIA on 01/19/[address] Rosas for non-healing ulcer of right great toe, progressive pain in RLE & SSTI Discharged 01/22/23, on Doxy and Cefuroxime, with stop date 02/02/23, as well as Rivaroxaban 2.5 mg BID Asymptomatic R SCA stenosis from outside imaging. Asymptomatic < 50% RENNY stenosis Asymptomatic 50-69% LICA stenosis CAD, H/O PCI, s/p CABG x 3, 04/27/22 @ [facility] S/P RCEA 05/02/22, also @ [facility] Smoker DM Dyslipidemia HTN CHF Amxiety PLAN: The patient was counseled regarding the pathophysiology and natural history of peripheral vascular disease, as well as the interventional and noninterventional therapeutic options. Continue ASA 81 mg for platelet inhibition Continue Lipitor 80 mg for dyslipidemia/hyperlipidemia/pleiotropic benefits On Rivaroxaban 2.5 mg BID for graft patency, of cryo BPG DSD to right groin, tucked under underwear and skin fold, avoid medical tape DSD (to incision) and JONATHAN to RLE Elevation of RLE [place] right great toe with betadine and apply band aide daily very comfortable doing wound care E-scribed Fluconazole for her yeast infection, w/ 2nd dose if still symptomatic 48-72 hrs thereafter Congratulated patient on continued smoking cessation. All BP's L arm for accuracy RTC 03/01/23 @ [facility] w/ Dr. Rosas, vascular labs (RANJITH and RLE vas art graft duplex). Will add carotid duplex to next visit. Will see sooner @ [facility], if needed. Patient has my card with office number to call The patient was seen and examined with Luciano Alejo MD. Darnell Chavez PA-C I have reviewed the advanced practitioner documentation and agree. I saw and evaluated the patient on date of service referenced in note and have performed the following medically appropriate historyand/or exam: Mrs. Liao presents to clinic s/p R femoral to BK pop bypass with cryovein on 01/19/2023. She has the expected reperfusion edema, but otherwise is very pleased with the result. She has a crisp multiphasic signal over the bypass graft, and over the R DP/PT. She has a shallow ulcer on the medial R 1st toe, and a dry ulcer on the dorsal aspect of the R 4th toe. The groin and medial BK incision look good. Doxy and Cefuroxime, with stop date 02/02/23 Continue ASA 81 mg for platelet inhibition Continue Lipitor 80 mg for dyslipidemia/hyperlipidemia/pleiotropic benefits On Rivaroxaban 2.5 mg BID for graft patency, of cryo BPG Plan to see her back in a few weeks for noninvasive vascular labs and wound evaluation. Robert Alejo MD Vascular Surgeon Department of Vascular Surgery [facility] documented in this encounter Nursing Notes * Lisa Alvarenga LPN - 01/25/2023 9:56 AM EST Reviewed the option of transferring scripts to [facility] pharmacy with patient and / or family. [...] personnel. Patient voiced full comprehension of instructions. Lisa Alvarenga LPN documented in this encounter Plan of Treatment Upcoming Encounters Date Type Department Care Team (Late st Contact Info) Description 02/01/2023 10:40 AM EST [facility] [address] [address] Jonny Donaldson MD [address] [address] 02/08/2023 1:30 PM EST Office Visit Pharmacy, [facility] [address] [facility] [place] [address] Pharmacist2, [facility] [address] [place], [place] [address] 03/01/2023 10:30 AM EST Appointment Vascular Lab [facility] [address] [place] [address] 03/01/2023 11:00 AM EST Appointment Vascular Lab [place] [address] [place] [address] 03/01/2023 12:00 PM EST Appointment Vascular Lab [facility] [address] [place] [address] 03/01/2023 12:15 PM EST Office Visit Vascular Surg [facility] [address] [place] [address] Willian Rosas MD [address] [place] [address] 2023 3:00 PM EDT Office Visit Family Practice [facility] [address] [address] Jonny Donaldson MD [address] [place] [address] Health Maintenance Due Date Last Done Comments [...] 11/15/1994 LUNG CANCER SCREENING - USE SMARTSET [id number] Completed 08/23/2022, 11/10/2020 Influenza Vaccine (FLU shot) Completed , 12/09/2021, 11/10/2020, Additional history exists GARDASIL-HPV IMMUNIZATION SERIES Aged Out No longer eligible based on patient's age to complete this topic MENINGOCOCCAL (MENACTRA/MENVEO) Aged Out No longer eligible based on patient's age to complete this topic documented as of this encounter Medical Devices Implanted Type Area Mule Packer Device Identifier Shelf Expiration Date Model / Serial / Lot Greater Than 80cm, 3mm-8mm Flora, Angiograft Pvd Saphenous Veins, Cryopreserved Implanted:Qty: 1 on 01/19/2023 by Willian Rosas MD at [facility] Right: Leg Upper LIFENET 07/29/2026 CV>80 / [id number] / [id number] documented as of this encounter Visit Diagnoses Diagnosis PAD (peripheral artery disease) (HCC)- Primary Peripheral vascular disease, unspecified documented in this [...] Advance Directives occurred with: Patient Care Teams Variety Lathe Operator Relationship Specialty Start Date End Date Jonny Donaldson MD [address] [facility] [place] [address] PCP - General Family Medicine 05/27/14 documented as of this encounter"
--- OUTSIDE RECORDS SUMMARY | 2023-03-02 22:34 | External Medical Summary | Summary of Care ---
Author Name Unknown Organization [facility] Address [address] [place] [address] Phone [phone] Care Team Providers Care Diesel Retrofit Installer Name Role Phone Jonny Donaldson MD Primary Care Provider + Reason for Visit * Reason Comments Dosage Adjustment In Person (Anticoag Cl inic) Diabetes Management * Evaluate & Treat - Unlimited Visits (Within 3 days (urgent)) - Pending Review Specialty Diagnoses / Procedures Referred By Contac t Referred To Contact Pharmacist / Pharmacy Diagnoses Type 2 diabetes mellitus with diabetic nephropathy, with long-term current use of insulin ([facility]) Jonny Donaldson MD [address] [place] [address] Referral ID Status Reason Start Date Expiration Date Visits Requested Visits Authorized [id number] Pending Review Specialty Services Required 11/04/2022 99 [phone] Encounter Details Date Type Department Care Team (Late st Contact Info) Description 02/08/2023 1:30 PM EST Office Visit Pharmacy, State Marian C[facility]denas [address] [place] [address] [phone] Pharmacist2, [facility] [address] [place] [id number] Type 2 diabetes mellitus with hemoglobin A1c goal of less than 8.0% ([facility])* Allergies Active Allergy Reactions Criticality Noted Date Comments Cephalexin 01/28/1996 rash Doxepin 02/01/2018 Dust 04/04/2001 Nickel Anaphylaxis High 04/04/2001 Paroxetine 04/28/2003 generic only, brand ok Penicillins 03/03/1995 Rash Sulfa Antibiotics 11/27/1994 Rash documented as of this encounter (statuses as of 02/08/2023) Medications Medication Sig Dispensed Refills Start Date End Date Status [employer] ULTRA SYSTEM W/DEVICE KITIndications:DM type 2, goal A1c below 7 Use up to four times a day as directed 1 0 06/10/2009 Active [employer] ULTRASOFT LANCETS MISCIndications:D M type 2, goal A1c below 7 for testing blood sugar 4 times per day 250.42 1 Box 11 01/09/2013 Active ASPIRIN EC 81 MG PO TBECIndications:T ype II or unspecified type diabetes mellitus with renal manifestations, uncontrolled(250. 42) (HCC) Take one pill daily 100 Tab 3 01/28/2014 Active fluticasone (FLONASE) 50 MCG/ACT nasal spray Administer 2 Sprays into each nostril 2 times a day. 18.2 mL 5 10/14/2019 Active VytronUS Ultra Blue In Vitro Strip (Glucose Blood)Indications :Type 2 diabetes mellitus with hemoglobin A1c goal of less than 8.0% ([facility]) Use up to 3 times Daily E11.9 poorly controlled. 200 Strip 11 03/11/2021 Active BD Pen Needle Tanja U/F 32G X 4 MM (Insulin Pen Needle)Indication s:Type 2 diabetes mellitus with hemoglobin A1c goal of less than 8.0% ([facility]) USE TO INJECT INSULIN 2-3 times per day 200 Each 3 06/30/2021 Active Ventolin HFA 108 (90 Base) MCG/ACT Inhalation Aerosol SolutionIndicatio ns:Cough,Acute bronchitis, complicated Inhale 2 Puffs by mouth every 4 hours as needed for Cough or Wheezing. Strength: 108 (90 Base) MCG/ACT 18 g 5 04/11/2022 Active Rivaroxaban 2.5 MG Oral Tablet (Xarelto) Take 1 Tablet by mouth in the morning and 1 Tablet before bedtime. 2 Tablet 0 06/01/2022 Active Metoprolol Succinate ER 25 MG Oral Tablet Extended Release 24 Hour (toPROL XL)Indications:HT N, goal below 130/80 Take 1 Tablet by mouth in the morning. 90 Tablet 3 06/01/2022 Active Gabapentin 300 MG Oral Capsule (Neurontin)Indica tions:Leg cramping,Restless legs syndrome 1 cap at lunch and 1 cap in evening by mouth for restless leg 60 Capsule 5 08/15/2022 Active rOPINIRole HCl 0.5 MG Oral Tablet (Requip)Indicatio ns:RLS (restless legs syndrome) TAKE ONE TABLET BY MOUTH AT BEDTIME AND BEFORE naps 180 Tablet 3 09/28/2022 Active Sertraline HCl 50 MG Oral Tablet (Zoloft)Indicatio ns:Generalized anxiety disorder TAKE TWO TABLETS BY MOUTH EVERY MORNING 180 Tablet 2 10/10/2022 Active Victoza 18 MG/3ML Subcutaneous Solution Pen-injector (Liraglutide)Mirtha cations:Type 2 diabetes mellitus with hemoglobin A1c goal [...] Active Atorvastatin Calcium 80 MG Oral Tablet (Lipitor)Indicati ons:Dyslipidemia, goal LDL below 100 TAKE ONE TABLET BY MOUTH EVERY DAY 90 Tablet 3 12/17/2022 Active metFORMIN HCl 850 MG Oral Tablet (Glucophage)Indic ations:Type 2 diabetes mellitus with hemoglobin A1c goal of less than 8.0% (HCC) TAKE ONE TABLET BY MOUTH THREE TIMES DAILY WITH MEALS FOR FOR DIABETES 270 Tablet 1 12/17/2022 Active Insulin Glargine Solostar 100 UNIT/ML Subcutaneous Solution Pen-injector (Basaglar KwikPen)Indicatio ns:Type 2 diabetes mellitus with hemoglobin A1c goal of less than 8.0% (HCC) Inject 54 units once daily 60 mL 3 12/30/2022 Active Amitriptyline HCl 50 MG Oral Tablet (Elavil)Indicatio ns:Other chest pain,Neuralgia TAKE ONE TABLET BY MOUTH EVERY DAY 90 Tablet 1 01/03/2023 Active LORazepam 0.5 MG Oral Tablet (Ativan)Indicatio ns:Anxiety state Take 1 Tablet by mouth every 8 hours as needed for Anxiety or Insomnia. 40 Tablet 0 01/05/2023 Active Jardiance 10 MG Oral Tablet (Empagliflozin)In dications:Type 2 diabetes mellitus with hemoglobin A1c goal of less than 8.0% (HCC) TAKE 1 TABLET IN THE MORNING 90 Tablet 1 01/16/2023 Active traMADol HCl 50 MG Oral Tablet (Ultram)Indicatio ns:Sciatica, unspecified laterality Take 1-2 Tablets by mouth every 6 hours as needed (pain). 60 Tablet 0 01/23/2023 Active AZO Cranberry 250-30 MG Oral Tablet Take by mouth daily. 0 Active Probiotic Acidophilus Oral Tablet Chewable Take by mouth daily. 0 Active Ketoconazole 2 % External Cream Apply topically to affected area 2 times a day. Apply to left armpit until rash improved. 30 g 1 02/01/2023 Active NovoLOG FlexPen 100 UNIT/ML Subcutaneous Solution Pen-injector (insulin aspart)Indication s:Type 2 diabetes mellitus with hemoglobin A1c goal of less than 8.0% (HCC) Inject 15 Units under the skin in the morning and 15 Units at noon and 15 Units in the evening. Inject with meals. 45 mL 3 02/08/2023 Active NovoLOG FlexPen 100 UNIT/ML Subcutaneous Solution Pen-injector (insulin aspart)Indication s:Type 2 diabetes mellitus with hemoglobin A1c goal of less than 8.0% (HCC) Inject 10 Units under the skin in the morning and 10 Units at noon and 10 Units in the evening. Inject with meals. 30 mL 3 12/30/2022 02/09/20 Discontinu ed(Refill) documented as of this encounter (statuses as of 02/08/2023) Active Problems Problem Noted Date Diagnosed Date [...] of the RCA 04/27/[address] Whyte [facility]. History of nonmelanoma skin cancer 05/25/2022 Overview: [...] disease) 06/27/2013 Overview: 06/24/13 +CP-abnormal stress->cath @[facility]. 100% occlusion RCA with left- right [...] 11/23/2011 Overview: 04/20/12 AV Ablation-Dr Jeffrey Campos, [facility] Episode June 2011 around 03/12/12 [place] [facility]-P175 SVT[place]sched for [place] study Routine general medical exam ination at a health care facility 11/11/2011 Overview: 01/18 Carotid US [place] stable 50-69 on left. 10/18 colonoscopy [facility] 3 3-[address] poly[address] colon-polypoid mucosa mild hyperplastic changes. Rectal polyp= hyperplastic polyp. Dr Juan Mak [facility] (11/19 06/14 Cologuard WNL. Cardiology-Jeffrey Campos [place]. 12/17 Carotid 50-69% left ICA stenosis. Vielka [...] evidence of COPD ) 05/10 TTE @[place] Vvkxefndpx-tesi-ilnahx EF, mild LVH, Gr1 Feldman Dys 07/09 colonoscopy [facility] [place]-3 & 6mm polyp--PAth--Tubular adenoma 07/09 [place] TSH & celiac testing WNL 04/11 ER visit [facility] SVT--resolved with adenosine. 03/11 EKG-scanned [...] as of this encounter (statuses as of 02/08/2023) Resolved Problems Problem Noted Date Diagnosed Date [...] as of this encounter (statuses as of 02/08/2023) Immunizations Name Administration Dates Next Due COVID-19 mRNA, LNP-s, No Pre serve, 2-Dose Series (Pfizer) 01/24/2021,01/04/2021,06/03/2020 Hepatitis B, 20+ yrs 08/27/2009,03/30/2009,02/27 Pneumococcal [...] as of this encounter Progress Notes * Giorgio King, [facility] - 02/08/2023 1:30 PM EST Images from the original note were not included. Medication Therapy [facility] - Diabetes Management Progress Note Mariia Liao, identified by name and date of , is a 67 year old female being seen for diabetes management/education. Patient presents for return diabetic visit. DIABETES: Current diabetic medications: INC: Basaglar 54 units once daily START: Novolog 10 units TID with meals Victoza 1.2mg daily Jardiance 10mg once daily Metformin 850mg TID Medication Injection Site: Abdomen Lifestyle: Diet: unchanged Glucose Review/SMBG: Readings obtained from patient device Hypoglycemia: Does your blood sugar go below 70 mg/dL? No Hyperglycemia symptoms present: none Recent Labs Units 12/05/22 1421 10/29/21 0801 06/25/21 0735 HEMOGLOBIN A1C - [facility] % 11.7* 7.8* 9.5* Recent Labs Units 01/21/23 0649 01/20/23 0501 01/19/23 1644 ESTIMATED GLOMERULAR FILTRATION RATE - [facility] mL/min 87 >90 >90 CREATININE - [facility] mg/dL 0.8 0.7 0.7 HYPERTENSION: Patient on ACEi/ARB: no, BP controlled BP Readings from Last 3 Encounters: 02/01/23 124/72 01/25/23 128/70 01/21/23 131/64 Blood pressure at goal: yes HYPERLIPIDEMIA: Patient is taking moderate or high intensity statin: yes HEALTH MAINTENANCE REVIEW: Health Maintenance Due Topic Date Due Alpha-1 Antitrypsin Never done DXA Scan 08/01/2021 COVID-19 Vaccine ( season) 2022 Mammogram 11/02/2022 ASSESSMENT & PLAN: No diagnosis found. BG Readings - Blood sugars uncontrolled. BG improving slightly. BG averaging 249 over the past 2 weeks. Medications - Reviewed current regimen, patient is adherent to regimen. Patient agreeable to increase novolog dose to 15 units tid. Diet, Exercise, Lifestyle - No significant lifestyle changes since last visit. Patient is agreeable to SMBG 4 time(s) daily. Patient aware to contact clinic if any hypoglycemia before next visit. MEDICATION CHANGES: yes, see below; preferred pharmacy: [facility] Diabetic Medications: Basaglar 54 units once daily INC: Novolog 15 units TID with meals Victoza 1.2mg daily Jardiance 10mg once daily Metformin 850mg TID HEALTH MAINTENANCE INTERVENTIONS: Labs: Up to Date Immunizations: Up to Date Foot Exam: Up to Date Eye Exam: Up to Date Annual Wellness Visit: N/A FOLLOW UP: Return to clinic in 8 weeks 04/05/2023 Giogrio King RPh Clinical Pharmacist - Medical Front Desk Specialist Medication Therapy Management Clinic 02/08/2023, 1:30 PM documented in this encounter Plan of Treatment Upcoming Encounters Date Type Department Care Team (Late st Contact Info) Description 02/09/2023 9:10 AM EST Office Visit Vascular Surgery, [address] [place] [address] Americo Landis MD [address] [place] [address] 03/01/2023 10:30 AM EST Appointment Vascular Lab [place] [address] [place] [address] 03/01/2023 11:00 AM EST Appointment Vascular Lab [place] [address] [place] [address] 03/01/2023 12:00 PM EST Appointment Vascular Lab [address] [address] 03/01/2023 12:15 PM EST Office Visit Vascular Surg [address] [address] Willian Rosas MD [address] [place] [address] 04/05/2023 11:30 AM EST Pharmacy Pharmacy, [facility] [address] [facility] [place] [address] Pharmacist2, [facility] [address] [facility] [place] [address] 06/21/2023 10:15 AM EDT Office Visit Urology, [facility] [address] [facility] [place] [address] William Doe MD [address] [facility] [address] [address] 2023 3:00 PM EDT Office Visit Family Practice [facility] [address] [place] [address] Jonny Donaldson MD 132 [facility] [place] [address] Health Maintenance Due Date Last Done Comments [...] Screening Completed 06/18/2002 Hepatitis B Completed 08/27/2009, 020 02/2009, 02/27/2009 Zoster Vaccines Completed 08/21/2019, 04/27, 08/06/2015 Pneumococcal Vaccine: 65+ Years Completed 01/28/2022, 10/20/2020, 11/15/1994 LUNG CANCER SCREENING - USE SMARTSET [id number] Completed 08/23/2022, 11/10/2020 Influenza Vaccine (FLU shot) Completed , 12/09/2021, 11/10/2020, Additional history exists GARDASIL-HPV IMMUNIZATION SERIES Aged Out No longer eligible based on patient's age to complete this topic MENINGOCOCCAL (MENACTRA/MENVEO) Aged Out No longer eligible based on patient's age to complete this topic documented as of this encounter Medical Devices Implanted Type Area Paper Folding Machine Operator Device Identifier Shelf Expiration Date Model / Serial / Lot Greater Than 80cm, 3mm-8mm Flora, Angiograft Pvd Saphenous Veins, Cryopreserved Implanted:Qty: 1 on 01/19/2023 by Willian Rosas [place] [facility] [place] Leg Upper LIFENET 07/29/2026 CV>80 / [id number] / [id number] documented as of this encounter Visit Diagnoses Diagnosis Type 2 diabetes mellitus with hemoglobin A1c goal of less than 8.0% ([facility])- Primary documented in this encounter Advance Directives Latest [...] Advance Directives occurred with: Patient Care Teams Diesel Retrofit Installer Relationship Specialty Start Date End Date Jonny Donaldson MD [address] [address] PCP - General Family Medicine 05/27/14 documented as of this encounter
--- OUTSIDE RECORDS SUMMARY | 2023-03-02 22:34 | External Medical Summary | Summary of Care ---
Author Name Unknown Organization [facility] Address [address] [place] [address] Phone [phone] Care Team Providers Care Rehabilitation Counselor Name Role Phone Jonny Donaldson MD Primary Care Provider + Reason for Visit * Reason Onset Date Comments Appointment 01/30/2023 Encounter Details Date Type Department Care Team (Late st Contact Info) Description 01/30/2023 Telephone Urology, [facility] [address] [place] [address] Services, Scheduling [address] [place] [address] Appointment Allergies Active Allergy Reactions Criticality Noted Date Comments Cephalexin 01/28/1996 rash Doxepin 02/01/2018 Dust 04/04/2001 Nickel Anaphylaxis High 04/04/2001 Paroxetine 04/28/2003 generic only, brand ok Penicillins 03/03/1995 Rash Sulfa Antibiotics 11/27/1994 Rash documented as of this encounter (statuses as of 01/31/2023) Medications Medication Sig Dispensed Refills Start Date [...] diabetes mellitus with renal manifestations, uncontrolled(250.4 2) ([facility]) Take one pill daily 100 Tab 3 01/28/2014 Active fluticasone (FLONASE) 50 MCG/ACT nasal spray Administer 2 Sprays into each nostril 2 times a day. 18.2 mL 5 10/14/2019 Active OneTouch Ultra Blue In Vitro Strip (Glucose Blood)Indications: Type 2 diabetes mellitus with hemoglobin A1c goal of less than 8.0% ([facility]) Use up to 3 times Daily E11.9 poorly controlled. 200 Strip 11 03/11/2021 Active BD Pen Needle Tanja U/F 32G X 4 MM (Insulin Pen Needle)Indications :Type 2 diabetes mellitus with hemoglobin A1c goal of less than 8.0% ([facility]) USE TO INJECT INSULIN 2-3 [...] as of this encounter (statuses as of 01/31/2023) Active Problems Problem Noted Date Diagnosed Date Acute lower limb ischemia 01/19/2023 Diabetic foot infection 01/19/2023 COPD, group A, by GOLD 2017 classification 01/09 Overview: Per COPD GOLD Classification Urge incontinence of urine 11/28/2022 S/P CABG x 3 06/01/2022 Overview: KUMAR to LAD, SVG to PL of LCx and PDA of the RCA 04/27/[address] Whyte [facility]. History of nonmelanoma skin [...] 06/27/2013 Overview: 06/24/13 +CP-abnormal stress->cath @[facility]. 100% occlusion RCA with left- right [...] 11/23/2011 Overview: 04/20/12 AV Ablation-Dr Jeffrey Campos, [facility] Episode June 2011 around 03/12/12 [place] hosp-P175 SVT--sched for [place] EP study Routine general medical exam ination at a health care facility 11/11/2011 Overview: 01/18 Carotid US [place] stable 50-69 on left. 10/18 colonoscopy [facility] 3 3-[address] Juan Mak [facility] (11/19 06/14 Cologuard WNL. Cardiology-Jeffrey Campos [place]. 12/17 Carotid 50-69% left ICA stenosis. Vielka [...] PFT evidence of COPD ) 05/10 TTE @[place] Pzjqxetlbt-prbs-dcdavq EF, mild LVH, Gr1 Feldman Dys 07/09 colonoscopy [facility] [place]-3 & 6mm polyp--PAth--Tubular adenoma 07/09 [place] TSH & celiac testing WNL 04/[address] [facility] SVT--resolved with adenosine. 03/11 EKG-scanned QTc [...] as of this encounter (statuses as of 01/31/2023) Resolved Problems Problem Noted Date Diagnosed Date [...] as of this encounter (statuses as of 01/31/2023) Immunizations Name Administration Dates Next Due COVID-19 mRNA, LNP-s, No Pre serve, 2-Dose Series (Well) 01/24/2021,01/04/2021,06/03/2020 Hepatitis B, 20+ yrs 08/27/2009,03/30/2009,02/27 Pneumococcal Conjugate Vacc, 13 Valent (Prevnar) 01/28/2022 Pneumococcal Polysaccharide PPV23 (Pneumovax) 10/20/2020,11/15/1994 SEASONAL INFLUENZA, PF, 6 M & Above, [...] encounter Miscellaneous Notes * Telephone Encounter - Gilbert Alvarenga OSA - 01/31/2023 10:53 AM EST Patient scheduled with Dr. Doe on 06/21/23. * Telephone Encounter - Harmony Viera OSA - 01/30/2023 8:30 AM EST Pt has microscopic hematuria and also small kidney stones that she is not worried about, she also has incontinence. Pt has had imaging done in Nov/Dec. Pt wants to come to [facility]. Please call to schedule. Thank you Harmony documented in this encounter Plan of Treatment Upcoming Encounters Date Type Department Care Team (Late st Contact Info) Description 02/01/2023 10:40 AM EST Office Visit Family Practice [facility] 132 [facility] [place] [address] Jonny Donaldson MD 132 [facility] [place] [address] 02/08/2023 1:30 PM EST Office Visit Pharmacy, [facility] [address] [facility] [place] [address] Pharmacist2, [facility] [address] [facility] [place] [address] 02/09/2023 9:10 AM EST Office Visit Vascular Surgery, [address] [place] [address] Americo Landis MD [address] [place] [address] 03/01/2023 10:30 AM EST Appointment Vascular Lab [place] [address] [place] [address] 03/01/2023 11:00 AM EST Appointment Vascular Lab [address] [address] 03/01/2023 12:00 PM EST Appointment Vascular Lab [address] [address] 03/01/2023 12:15 PM EST Office Visit Vascular Surg [place] [address] [place] [address] Willian Rosas MD [address] [place] [address] 06/21/2023 10:15 AM EDT Office Visit Urology, [facility] [address] [facility] [place] [address] William Doe MD [address] [place] [address] [place] [address] 2023 3:00 PM EDT Office Visit Family Practice [facility] [address] [facility] [place] [address] Jonny Donaldson MD 132 [facility] [place] [address] Health Maintenance Due Date Last Done Comments [...] 11/15/1994 LUNG CANCER SCREENING - USE SMARTSET [id number] Completed 08/23/2022, 11/10/2020 Influenza Vaccine (FLU shot) Completed , 12/09/2021, 11/10/2020, Additional history exists GARDASIL-HPV IMMUNIZATION SERIES Aged Out No longer eligible based on patient's age to complete this topic MENINGOCOCCAL (MENACTRA/MENVEO) Aged Out No longer eligible based on patient's age to complete this topic documented as of this encounter Medical Devices Implanted Type Area Machine Maintenance Mechanic Device Identifier Shelf Expiration Date Model / Serial / Lot Greater Than 80cm, 3mm-8mm Flora, Angiograft Pvd Saphenous Veins, Cryopreserved Implanted:Qty: 1 on 01/19/2023 by Willian Rosas MD at [place] [facility] Right: Leg Upper LIFENET 07/29/2026 CV>80 / [id number] / [id number] documented as of this encounter Advance [...] Advance Directives occurred with: Patient Care Teams Rehabilitation Counselor Relationship Specialty Start Date End Date Jonny Donaldson MD [address] [place] [address] PCP - General Family Medicine 05/27/14 documented as of this encounter
--- OUTSIDE RECORDS SUMMARY | 2023-03-02 22:34 | External Medical Summary | Summary of Care ---
Author Name Unknown Organization [facility] Address [address] [place] [address] Phone [phone] Care Team Providers Care Nanotechnician Name Role Phone Jonny Donaldson MD Primary Care Provider + Reason for Visit * Reason Onset Date Comments Advice 02/22/2023 Encounter Details Date Type Department Care Team (Late st Contact Info) Description 02/22/2023 Telephone Vascular Surg [facility] [address], [place] [id number] Services, [facility] [address] [place] [address] Advice Allergies Active Allergy Reactions Criticality Noted Date Comments Cephalexin 01/28/1996 rash Doxepin 02/01/2018 Dust 04/04/2001 Nickel Anaphylaxis High 04/04/2001 Paroxetine 04/28/2003 generic only, brand ok Penicillins 03/03/1995 Rash Sulfa Antibiotics 11/27/1994 Rash documented as of this encounter (statuses as of 02/22/2023) Medications Medication Sig Dispensed Refills Start Date End Date Status Register My InfoTOUCH ULTRA SYSTEM W/DEVICE KITIndications:DM type 2, goal [...] of the RCA 04/27/[address] Whyte [facility]. History of nonmelanoma skin cancer 05/25/2022 [...] artery disease) 06/27/2013 Overview: 06/24/13 +CP-abnormal stress->cath @[facility]. 100% occlusion RCA with left- right [...] Medical Center Episode June 2011 around 03/12/12 [place] [facility]-P175 SVT--sched for [place] EP study Routine general medical exam ination at a health care facility 11/11/2011 Overview: 01/18 Carotid US [place] stable 50-69 on left. 10/18 colonoscopy [facility] 3 3-5 polyps PATH colon-polypoid mucosa mild hyperplastic changes. Rectal polyp= hyperplastic polyp. Dr Juan Mak [facility] (11/19 06/14 Cologuard WNL. Cardiology-Jeffrey Campos [place]. 12/17 Carotid 50-69% left ICA stenosis. Vielka [...] PFT evidence of COPD ) 05/10 TTE @[place] Ipjvppoltf-xbhj-emzexb EF, mild LVH, Gr1 Feldman Dys 07/09 colonoscopy [facility] [place]-3 & 6mm polyp--PAth--Tubular adenoma 07/09 [place] TSH & celiac testing WNL 04/11 ER visit [facility] SVT--resolved with adenosine. 03/11 EKG-scanned QTc 414 [...] mRNA, LNP-s, No Pre serve, 2-Dose Series ([employer]) 01/24/2021,01/04/2021,06/03/2020 Hepatitis B, 20+ yrs 08/27/2009,03/30/2009,02/27 Pneumococcal [...] 03/01/2023 10:30 AM EST Appointment Vascular Lab [facility], [address] [address] 03/01/2023 11:00 AM EST Appointment Vascular Lab [facility], [address] [address] 03/01/2023 12:00 PM EST Appointment Vascular Lab [facility], [address] [address] 03/01/2023 12:15 PM EST Office Visit Vascular Surg [facility], [address] [address] Willian Rosas MD [facility] [place] [address] 04/05/2023 11:30 AM EST Pharmacy Pharmacy, [facility] [address] [place] [address] Pharmacist2, [facility] [address] [place] [address] 06/21/2023 10:15 AM EDT Office Visit Urology, [facility] [address] [place] [address] William Doe MD 27 [facility] [address] [address] 2023 3:00 PM EDT Office Visit Family Practice [facility] [address] [address] Jonny Donaldson MD [address] [address] Health Maintenance Due Date Last Done Comments [...] 11/15/1994 LUNG CANCER SCREENING - USE SMARTSET [id number] Completed 08/23/2022, 11/10/2020 Influenza Vaccine (FLU shot) Completed , 12/09/2021, 11/10/2020, Additional history exists GARDASIL-HPV IMMUNIZATION SERIES Aged Out No longer eligible based on patient's age to complete this topic MENINGOCOCCAL (MENACTRA/MENVEO) Aged Out No longer eligible based on patient's age to complete this topic documented as of this encounter Medical Devices Implanted Type Area Field Superintendent Device Identifier Shelf Expiration Date Model / Serial / Lot Greater Than 80cm, 3mm-8mm Flora, Angiograft Pvd Saphenous Veins, Cryopreserved Implanted:Qty: 1 on 01/19/2023 by Willian Rosas MD at [place] [facility] Right: Leg Upper LIFENET 07/29/2026 CV>80 / [id number] documented as of this encounter Advance [...] Advance Directives occurred with: Patient Care Teams Nanotechnician Relationship Specialty Start Date End Date Jonny Donaldson MD [address] [place] [address] PCP - General Family Medicine 05/27/14 documented as of this encounter
--- OUTSIDE RECORDS SUMMARY | 2023-03-02 22:34 | External Medical Summary | Summary of Care ---
Author Name Unknown Organization [facility] Address [address] [place] [address] Phone [phone] Care Team Providers Care Potline Monitor Name Role Phone Jonny Donaldson MD Primary Care Provider + Reason for Visit * Reason Onset Date Comments Call Back 01/27/2023 Encounter Details Date Type Department Care Team (Late st Contact Info) Description 01/27/2023 Telephone Vascular Surg [facility] [address] [place] [address] Services, [facility] [address] [place] [address] Call Back Allergies Active Allergy Reactions Criticality Noted Date Comments Cephalexin 01/28/1996 rash Doxepin 02/01/2018 Dust 04/04/2001 Nickel Anaphylaxis High 04/04/2001 Paroxetine 04/28/2003 generic only, brand ok Penicillins 03/03/1995 Rash Sulfa Antibiotics 11/27/1994 Rash documented as of this encounter (statuses as of 01/27/2023) Medications Medication Sig Dispensed Refills Start Date [...] as of this encounter (statuses as of 01/27/2023) Active Problems Problem Noted Date Diagnosed Date Acute lower limb ischemia 01/19/2023 Diabetic foot infection 01/19/2023 COPD, group A, by GOLD 2017 classification 01/09 Overview: Per COPD GOLD Classification Urge incontinence of urine 11/28/2022 S/P CABG x 3 06/01/2022 Overview: KUMAR to LAD, SVG to PL of LCx and PDA of the RCA 04/27/[address] Whyte [facility]. History of nonmelanoma skin cancer [...] 06/27/2013 Overview: 06/24/13 +CP-abnormal stress->cath @[facility]. 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 85% Circ (stented RACHAEL), LAD 20%. EF shows inferior hypokinesis EF 45% Stent--Medtronic Resolute INtegrity Zotarolimus stent Circumflex. 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 10/18 colonoscopy [facility] 3 3-[address] Juan Mak [facility] (11/19 06/14 Cologuard WNL. Cardiology-Jeffrey Campos [facility]. 12/17 Carotid 50-69% left ICA stenosis. Vielka [...] PFT evidence of COPD ) 05/10 TTE @[facility] Dhhttvqsri-pvot-ugrtlz EF, mild LVH, Gr1 Feldman Dys 07/09 colon[facility]-3 & 6mm polyp--PAth--Tubular adenoma 07/09 [facility] TSH & celiac testing WNL 04/11 ER visit [facility] SVT--resolved with adenosine. 03/11 EKG-scanned QTc [...] as of this encounter (statuses as of 01/27/2023) Resolved Problems Problem Noted Date Diagnosed Date [...] as of this encounter (statuses as of 01/27/2023) Immunizations Name Administration Dates Next Due COVID-19 mRNA, LNP-s, No Pre serve, 2-Dose Series ([employer]) 01/24/2021,01/04/2021,06/03/2020 Hepatitis B, 20+ yrs 08/27/2009,03/30/2009,02/27 Pneumococcal [...] encounter Miscellaneous Notes * Telephone Encounter - Milli Goncalves OSA - 01/27/2023 10:43 AM EST Pt has some questions regarding covering her incision - she states her nurse she can remove the bandages but she thinks she remembers to keep it covered - also asking about stitches - if they are dissolving or does she need them removed documented in this encounter Plan of Treatment Upcoming Encounters Date Type Department Care Team (Late st Contact Info) Description 02/01/2023 10:40 AM EST Office Visit Family Practice [facility] [address] [address] Jonny Donaldson MD [address] [facility] [place] [address] 02/08/2023 1:30 PM EST Office Visit Pharmacy, [facility] [address] [place] [address] Pharmacist2, [facility] [address] [place] [address] 03/01/2023 10:30 AM EST Appointment Vascular Lab [facility], [address] [address] 03/01/2023 11:00 AM EST Appointment Vascular Lab [facility], [address] [address] 03/01/2023 12:00 PM EST Appointment Vascular Lab [facility], [address] [address] 03/01/2023 12:15 PM EST Office Visit Vascular Surg [facility], [address] [address] Will[facility]as MD [address] [facility] [address] 2023 3:00 PM EDT Office Visit Family [facility] [address] [place] [address] Jonny Donaldson MD [address] [place] [address] Health Maintenance Due Date Last Done Comments [...] 11/15/1994 LUNG CANCER SCREENING - USE SMARTSET 46004 Completed 08/23/2022, 11/10/2020 Influenza Vaccine (FLU shot) Completed , 12/09/2021, 11/10/2020, Additional history exists GARDASIL-HPV IMMUNIZATION SERIES Aged Out No longer eligible based on patient's age to complete this topic MENINGOCOCCAL (MENACTRA/MENVEO) Aged Out No longer eligible based on patient's age to complete this topic documented as of this encounter Medical Devices Implanted Type Area Wort Extractor Device Identifier Shelf Expiration Date Model / Serial / Lot Greater Than 80cm, 3mm-8mm Flora, Angiograft Pvd Saphenous Veins, Cryopreserved Implanted:Qty: 1 on 01/19/2023 by Willian Rosas MD at [place] [facility] Right: Leg Upper LIFENET 07/29/2026 CV>80 / [id number] / [id number] documented as of this encounter Advance [...] Advance Directives occurred with: Patient Care Teams Potline Monitor Relationship Specialty Start Date End Date Jonny Donaldson MD [address] [address] PCP - General Family Medicine 05/27/14 documented as of this encounter
--- OUTSIDE RECORDS SUMMARY | 2023-03-02 22:34 | External Medical Summary | Summary of Care ---
Author Name Unknown Organization [facility] Address [address] [place] [address] Phone [phone] Care Team Providers Care Search Engine Optimization Strategist Name Role Phone Jonny Donaldson MD Primary Care Provider + Reason for Visit * Reason Onset Date Comments Hospital Follow-Up [facility] 01/18-: Acute lower limb ischemia Hospital Follow-Up 02/01/2023 Encounter Details Date Type Department Care Team (Late st Contact Info) Description 02/01/2023 10:40 AM EST Office Visit Family [facility] 132 [facility] [place] [address] Jonny Donaldson MD 132 [facility] [place] [address] Hospital discharge follow-up*; Morbid (severe) obesity due to excess calories ([facility]); PAD (peripheral artery disease) ([facility]); Type 2 diabetes mellitus with diabetic nephropathy, with long-term current use of insulin ([facility]); Acute lower limb ischemia Allergies Active Allergy Reactions Criticality Noted Date Comments Cephalexin 01/28/1996 rash Doxepin 02/01/2018 Dust 04/04/2001 Nickel Anaphylaxis High 04/04/2001 Paroxetine 04/28/2003 generic only, brand ok Penicillins 03/03/1995 Rash Sulfa Antibiotics 11/27/1994 Rash documented as of this encounter (statuses as of 02/01/2023) Medications Medication Sig Dispensed Refills Start Date End Date Status JOYsee [employer] SYSTEM W/DEVICE KITIndications:DM type 2, goal A1c below 7 Use up to four times a day as directed 1 0 06/10/2009 Active Best Bid ULTRASOFT LANCETS MISCIndications:DM type 2, goal A1c below 7 for testing blood sugar 4 times per day 250.42 [address] 01/09/2013 Active ASPIRIN EC 81 MG PO TBECIndications:Ty pe II or unspecified type diabetes mellitus with renal manifestations, uncontrolled(250.4 2) ([facility]) Take one pill daily 100 Tab 3 01/28/2014 Active fluticasone (FLONASE) 50 MCG/ACT nasal spray Administer 2 Sprays into each nostril 2 times a day. 18.2 mL 5 10/14/2019 Active Yebhi Ultra Blue In Vitro Strip (Glucose Blood)Indications: Type 2 diabetes mellitus with hemoglobin A1c goal of less than 8.0% ([facility]) Use up to 3 times Daily E11.9 poorly controlled. 200 Strip 11 03/11/2021 Active BD Pen Needle Tanja U/F 32G X 4 MM (Insulin Pen Needle)Indications :Type 2 diabetes mellitus with hemoglobin A1c goal of less than 8.0% ([facility]) USE TO INJECT INSULIN 2-3 times [...] rash improved. 30 g 1 02/01/2023 Active documented as of this encounter (statuses as of 02/01/2023) Active Problems Problem Noted Date Diagnosed Date [...] of the RCA 04/27/[address] [facility]. History of nonmelanoma skin cancer 05/25/2022 [...] artery disease) 06/27/2013 Overview: 06/24/13 +CP-abnormal stress->cath @[facility]. 100% occlusion RCA with [...] 11/23/2011 Overview: 04/20/12 AV Ablation-Dr Jeffrey Campos, [facility] Episode June 2011 around 03/12/12 [facility]-P175 SVT--sched for [facility] EP study Routine general medical exam ination at a health care facility 11/11/2011 Overview: 01/18 Carotid US [facility] stable 50-69 on left. 10/[address] [facility] 3 3-[address] Juan Mak [facility] (11/19 06/14 Cologuard WNL. Cardiology-Jeffrey Oscarpayal [facility]. 12/17 Carotid 50-69% left ICA stenosis. Vielka [...] PFT evidence of COPD ) 05/10 TTE @[facility] Buhldatbuh-qgyc-dtbzjl EF, mild LVH, Gr1 Jessica Dys 07/09 [facility]-3 & 6mm polyp--PAth--Tubular adenoma 07/09 [facility] TSH & celiac testing WNL 04/11 ER visit [facility] SVT--resolved with adenosine. 03/11 [...] as of this encounter (statuses as of 02/01/2023) Resolved Problems Problem Noted Date Diagnosed Date [...] as of this encounter (statuses as of 02/01/2023) Immunizations Name Administration Dates Next Due COVID-19 mRNA, LNP-s, No Pre serve, 2-Dose Series ([employer]) 01/24/2021,01/04/2021,06/03/2020 Hepatitis B, 20+ yrs 08/27/2009,03/30/2009,02/27 Pneumococcal [...] 12/08/2021 Smokeless Tobacco: Never Tobacco Cessation:Counseling Given: Not Answered Comments:10/04/2019 smokes 15 cigarettes per day on [...] Reading Time Taken Comments Blood Pressure 124/72 02/01/2023 10:52 AM EST Pulse 89 02/01/2023 10:52 AM EST Temperature - - Respiratory Rate 20 02/01/2023 10:52 AM EST Oxygen Saturation 96% 02/01/2023 10:52 AM EST Inhaled Oxygen Concentration - - Weight 111.4 kg (245 lb 8 oz) 02/01/2023 10:52 A M EST Height - - Body Mass Index 34.24 01/19/2023 12:56 AM EST documented in this [...] (15 years old or older) Yes 01/20/20 23 Cognitive Status Response Date of Assessm ent Because of a physical, menta l, or emotional condition, do you have serious difficulty concentrating, remembering, or making decisions? (5 years old or older) No 01/19/2023 documented as of this encounter Progress Notes * Jonny Donaldson MD - 02/01/2023 11:03 AM EST SUBJECTIVE: Mariia Liao is a 67 year old female. Chief Complaint Patient presents with Hospital Follow-Up [facility] 01/18-01/21: Acute lower limb ischemia Hospital Follow-Up Recent Admission: Patient was recently admitted to [facility] and transferred to [facility]. Presented to [facility] ER with non-healingulcer of right great toe, progressive pain in RLE & SSTI Was transferred to [facility], via [facility]. On 01/19/23 pt underwent the following by Dr. Rosas: RCFA to BK Pop Art BPG w/ cryopreserved vein RDFA endarterectomy, beyond the site of our bypass proximal anastomosis (common femoral endarterectomy also performed as part of the revascularization) PTCA REIA Discharged 01/22/23, on Doxy and Cefuroxime, with stop date 02/02/23, as well as Rivaroxaban 2.5 mg BID Doing well since surgery Discharge report received and reviewed. Here w/. Doing well postop. No significant pain. She is having some vaginal itching and discharge took 1 Diflucan still having some symptoms so she is going to get a refill today. Also with a rash in her leftaxilla. Has not been using anything on that. Using lispro. Keeping foot elevated. Foot ulcer does not seem to be worsening she is bandaging it daily. No polyuria/dipsia. Patient Active Problem List Diagnosis Code DYSFUNCT EUSTACHIAN TUBE H69.90 POST-NASAL DRIP J06.9 NONALLERGIC RHINITIS J31.0 Chronic sinusitis J32.9 GENERALIZED ANXIETY DIS F41.1 INFORMATION INFO Heartburn R12 LUMBAGO M54.50 Solitary cyst of breast N60.09 ADVANCE DIRECTIVE INFORMATION Tobacco use disorder F17.200 Dyslipidemia, goal LDL below 100 E78.5 Type 2 diabetes mellitus with diabetic nephropathy ([facility]) E11.21 HTN, goal below 130/80 I10 Routine general medical examination at a health care facility Z00.00 SVT (supraventricular tachycardia) I47.10 Type 2 diabetes mellitus with hemoglobin A1c goal of less than 8.0% ([facility]) E11.9 DM type 2 causing neurological disease ([facility]) E11.49 CAD (coronary artery disease) I25.10 Heart failure, systolic, due to CAD I50.20, I25.10 S/P drug eluting coronary stent placement Z95.5 Inguinal hernia, right K40.90 Diabetic retinopathy, nonproliferative, moderate ([facility]) E11.3399 Sensorineural hearing loss (SNHL) of both ears H90.3 Diabetic macular edema of both eyes ([facility]) E11.311 Type 2 diabetes mellitus with diabetic nephropathy, with long-term current use of insulin ([facility]) E11.21, Z79.4 Carpal tunnel syndrome on right G56.01 PAD (peripheral artery disease) ([facility]) I73.9 Other emphysema ([facility]) J43.8 Carotid artery stenosis without cerebral infarction, left I65.22 History of 2019 novel coronavirus disease (COVID-19) Z86.16 History of nonmelanoma skin cancer Z85.828 S/P CABG x 3 Z95.1 History of completed stroke Z86.73 Urge incontinence of urine N39.41 COPD, group A, by GOLD 2017 classification ([facility]) J44.9 Acute lower limb ischemia I99.8 Diabetic foot infection E11.628, L08.9 Morbid (severe) obesity due to excess calories ([facility]) E66.01 Current Outpatient Medications Medication Sig Dispense Refill JOYsee Interaction [employer] SYSTEM W/DEVICE KIT Use up to four times a day as directed 1 0 Best Bid ULTRASOFT LANCETS [facility] for testing blood sugar 4 times per day 250.42 [address] ASPIRIN EC 81 MG PO TBEC Take one pill daily 100 Tab 3 fluticasone (FLONASE) 50 MCG/ACT nasal spray Administer 2 Sprays into each nostril 2 times a day. 18.2 mL 5 Yebhi Ultra Blue In Vitro Strip (Glucose Blood) [...] Oral Tablet Chewable Take by mouth daily. No current facility-administered medications for this visit. Current and discharge medications have been reconciled. Review of patient's allergies indicates: Allergen Reactions Nickel Anaphylaxis Cephalexin rash Doxepin Dust Paroxetine generic only, brand ok Penicillins Rash Sulfa Antibiotics Rash OBJECTIVE: BP 124/72 | Pulse 89 | Resp 20 | Wt 111.4 kg (245 lb 8 oz) | LMP 03/13/2008 | SpO2 96% | BMI 34.24 kg/m | BSA 2.36 m Review Of Systems: Neg except above PHYSICAL EXAM: Physical: BP 124/72 | Pulse 89 | Resp 20 | Wt 111.4 kg (245 lb 8 oz) | LMP 03/13/2008 | SpO2 96% | BMI 34.24 kg/m | BSA 2.36 m General-No apparent Distress Head, Eyes, Ears, Nose, Throat--Normocephalic, atraumatic Neck-Supple Abdomen-soft, nontender, nondistended Skin-sutures RLE intact. No redness. Left 1st toe superficial ulcer around toe. Left axilla-macular faint red rash Extremities--mild RLE edema Vasc <2s perfusion b/l LE, warm feet Neuro-alert & oriented x3 ASSESSMENT: Hospital discharge follow-up (Primary) - DISCH MED RECON CUR MED LIS Morbid (severe) obesity due to excess calories (HCC) PAD (peripheral artery disease) (HCC) Type 2 diabetes mellitus with diabetic nephropathy, with long-term current use of insulin (HCC) Acute lower limb ischemia PLAN: Continue present medication(s): Follow up as scheduled with surgery team I spent a total of 40-54 minutes (exact time 45 mins) minutes on the date of service in preparation, delivery, and documentation of the care provided to Mariia Liao excluding any time spent in performance of separately billed services. Jonny Donaldson MD documented in this encounter Nursing Notes * Damari Mcclendon LPN - 02/01/2023 10:52 AM EST The patient has been properly identified by confirmation of name and date of . Chief Complaint Patient presents with Hospital Follow-Up [facility] 01/18-01/21: Acute lower limb ischemia documented in this encounter Plan of Treatment Upcoming Encounters Date Type Department Care Team (Late st Contact Info) Description 02/08/2023 1:30 PM EST Office Visit Pharmacy, [facility] [address] [facility] [place] [address] Pharmacist2, [facility] [address] [facility] [place] [address] 02/09/2023 9:10 AM EST Office Visit Vascular Surgery, [address] [place] [address] Americo Landis MD [address] [place] [address] 03/01/2023 10:30 AM EST Appointment Vascular Lab [address] [address] 03/01/2023 11:00 AM EST Appointment Vascular Lab [address] [address] 03/01/2023 12:00 PM EST Appointment Vascular Lab [address] [address] 03/01/2023 12:15 PM EST Office Visit Vascular Surg [address] [address] Willian Rosas MD [address] [place] [address] 06/21/2023 10:15 AM EDT Office Visit Urology, [facility] 132 [facility] [place] [address] William Doe MD [address] [place] [address] [place] [address] 2023 3:00 PM EDT Office Visit Family Practice [facility] 132 [facility] [place] [address] Jonny Donaldson MD [address] [facility] [place] [address] Health Maintenance Due Date Last Done Comments [...] 11/15/1994 LUNG CANCER SCREENING - USE SMARTSET [id number] Completed 08/23/2022, 11/10/2020 Influenza Vaccine (FLU shot) Completed , 12/09/2021, 11/10/2020, Additional history exists GARDASIL-HPV IMMUNIZATION SERIES Aged Out No longer eligible based on patient's age to complete this topic MENINGOCOCCAL (MENACTRA/MENVEO) Aged Out No longer eligible based on patient's age to complete this topic documented as of this encounter Medical Devices Implanted Type Area Stone Derrickman And Rigger Device Identifier Shelf Expiration Date Model / Serial / Lot Greater Than 80cm, 3mm-8mm Flora, Angiograft Pvd Saphenous Veins, Cryopreserved Implanted:Qty: 1 on 01/19/2023 by Willian Rosas MD at OR [facility] Right: Leg Upper LIFENET 07/29/2026 CV>80 / [id number] documented as of this encounter Visit Diagnoses Diagnosis Hospital discharge follow-up- Primary Other follow-up examination Morbid (severe) obesity due to excess calories (HCC) PAD (peripheral artery disease) ([facility]) Peripheral vascular disease, unspecified Type 2 diabetes mellitus with diabetic nephropathy, with long-term current use of insulin ([facility]) Acute lower limb ischemia documented in this encounter Advance Directives Latest [...] Advance Directives occurred with: Patient Care Teams Search Engine Optimization Strategist Relationship Specialty Start Date End Date Jonny Donaldson MD [address] [place] [address] PCP - General Family Medicine 05/27/14 documented as of this encounter"
--- OUTSIDE RECORDS SUMMARY | 2023-03-02 22:34 | External Medical Summary | Summary of Care ---
Author Name Unknown Organization [facility] Address [address] [place] [address] Phone [phone] Care Team Providers Care Science Editor Name Role Phone Jonny Donaldson MD Primary Care Provider + Reason for Visit * Reason Comments Follow Up Encounter Details Date Type Department Care Team (Late st Contact Info) Description 02/09/2023 9:10 AM EST Office Visit Vascular Surgery, [address] [phone] Americo Landis MD [address] [place] [address] PAD (peripheral artery disease) ([facility])* Allergies Active Allergy Reactions Criticality Noted Date Comments Cephalexin 01/28/1996 rash Doxepin 02/01/2018 Dust 04/04/2001 Nickel Anaphylaxis High 04/04/2001 Paroxetine 04/28/2003 generic only, brand ok Penicillins 03/03/1995 Rash Sulfa Antibiotics 11/27/1994 Rash documented as of this encounter (statuses as of 02/09/2023) Medications Medication Sig Dispensed Refills Start Date [...] with renal manifestations, uncontrolled(250.4 2) ([facility]) Take one pill daily 100 Tab 3 01/28/2014 Active fluticasone (FLONASE) 50 MCG/ACT nasal spray Administer 2 Sprays into each nostril 2 times a day. 18.2 mL 5 10/14/2019 Active OneTouch Ultra Blue In Vitro Strip (Glucose Blood)Indications: Type 2 diabetes mellitus with hemoglobin A1c goal of less than 8.0% ([facility]) Use up to 3 times Daily E11.9 poorly controlled. 200 Strip 11 03/11/2021 Active BD Pen Needle Tanja U/F 32G X 4 MM (Insulin Pen Needle)Indications :Type 2 diabetes mellitus with hemoglobin A1c goal of less than 8.0% ([facility]) USE TO INJECT INSULIN 2-3 times [...] Solostar 100 UNIT/ML Subcutaneous Solution Pen-injector (Basaglar Masha)Indication s:Type 2 diabetes mellitus with hemoglobin A1c [...] goal of less than 8.0% ([facility]) Inject 15 Units under the skin in the morning and 15 Units at noon and 15 Units in the evening. Inject with meals. 45 mL 3 02/08/2023 Active documented as of this encounter (statuses as of 02/09/2023) Active Problems Problem Noted Date Diagnosed Date [...] RCA 04/27/[address] Whyte [facility]. History of nonmelanoma skin cancer 05/25/2022 Overview: [...] artery disease) 06/27/2013 Overview: 06/24/13 +CP-abnormal stress->cath @[facility]. 100% occlusion RCA with left- right [...] Medical Center Episode June 2011 around 03/12/12 [facility]-P175 SVT--sched for [place] EP study Routine general medical exam ination at a health care facility 11/11/2011 Overview: 01/18 Carotid US [place] stable 50-69 on left. 10/18 colonoscopy [facility] 3 3-5 polyps [address] colon-polypoid mucosa mild hyperplastic changes. Rectal polyp= hyperplastic polyp. Dr Juan Mak [facility] (11/19 06/14 Cologuard WNL. Cardiology-Jeffrey Campos [place]. 12/17 Carotid 50-69% left ICA stenosis. Vielka [...] PFT evidence of COPD ) 05/10 TTE @[place] Nymddtzyal-ileq-oqfhag EF, mild LVH, Gr1 Feldman Dys 07/09 colonoscopy [facility] [place]-3 & 6mm polyp--PAth--Tubular adenoma 07/09 [place] TSH & celiac testing WNL 04/11 ER visit [facility] SVT--resolved with adenosine. 03/11 EKG-scanned QTc [...] as of this encounter (statuses as of 02/09/2023) Resolved Problems Problem Noted Date Diagnosed Date [...] as of this encounter (statuses as of 02/09/2023) Immunizations Name Administration Dates Next Due COVID-19 mRNA, LNP-s, No Pre serve, 2-Dose Series ([employer]) 01/24/2021,01/04/2021,06/03/2020 Hepatitis B, 20+ yrs 08/27/2009,03/30/2009,02/27 Pneumococcal [...] Sign Reading Time Taken Comments Blood Pressure 122/74 02/09/2023 8:24 AM EST Pulse - - Temperature - - Respiratory Rate - - Oxygen Saturation - [...] as of this encounter Progress Notes * Elver Gaona CRNP - 02/09/2023 9:10 AM EST Images from the original note were not included. Date of Service: 02/09/2023 8:35 AM Mariia Liao is a 67 year old female. Referring Physician: Jonny Donaldson MD Chief Complaint: S/P R leg revascularization for limb salvage 01/19/23. Accompanied by . HPI: Former smoker with DM, HTN, dyslipidemia, CAD, and CHF. Presented to [facility] ER with non-healing ulcer of right great toe, progressive pain in RLE & SSTI Was transferred to [facility], via [facility]. On 01/19/23 S/P RCFA => BK Pop BPG w/ cryopreserved vein, R DFA endarterectomy (beyond site of prox anastomosis), and REIA angioplasty 01/19/[address] Rosas. Discharged 01/22/23, on Doxy and Cefuroxime, with stop date 02/02/23, as well as Rivaroxaban 2.5 mg BID PERIPHERAL VASCULAR DISEASE: S/P RCFA => BK Pop Art BPG w/ cryopreserved vein, R DFA endarterectomy (beyond site of prox anastomosis), and REIA angioplasty 01/19/[address] Roass. CAROTID/SUBCLAVIAN DISEASE: S/P R CEA 05/02/22 @ [facility] Patient denies recent TIA, recent stroke and recent amaurosis fugax. R subclavian artery disease, per RANJITH Current Outpatient Medications Medication Sig Dispense Refill SuperDimensionUCH ULTRA SYSTEM W/DEVICE KIT Use up to four times a day as directed 1 0 ONETOUCH ULTRASOFT LANCETS [facility] for testing blood sugar 4 times per [...] goal of less than 8.0% ([facility]) E11.9 DM type 2 causing neurological disease ([facility]) E11.49 CAD (coronary artery disease) I25.10 Heart failure, systolic, due to CAD I50.20, I25.10 S/P drug eluting coronary stent placement Z95.5 Inguinal hernia, right K40.90 Diabetic retinopathy, nonproliferative, moderate ([facility]) E11.3399 Sensorineural hearing loss (SNHL) of both ears H90.3 Diabetic macular edema of both eyes ([facility]) E11.311 Type 2 diabetes mellitus with diabetic nephropathy, with long-term current use of insulin ([facility]) E11.21, Z79.4 Carpal tunnel syndrome on right G56.01 PAD (peripheral artery disease) ([facility]) I73.9 Other emphysema ([facility]) J43.8 Carotid artery stenosis without cerebral infarction, left I65.22 History of 2019 novel coronavirus disease (COVID-19) Z86.16 History of nonmelanoma skin cancer Z85.828 S/P CABG x 3 Z95.1 History of completed stroke Z86.73 Urge incontinence of urine N39.41 COPD, group A, by GOLD 2017 classification ([facility]) J44.9 Acute lower limb ischemia I99.8 Diabetic foot infection E11.628, L08.9 Past Medical History: Diagnosis Date Allergic rhinitis Background diabetic retinopathy(362.01) 05/27/201405/[address] Montez Q6mo monitoring Benign neoplasm of colon 07/30/2010 polyps x 2--adenomatous tissue--repeat in 3 yrs , diverticulosis & fair prep-- CAD (coronary artery disease) 06/27/2013 06/24/13 +CP-abnormal stress->cath @[facility]. 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 85% Circ (stented RACHAEL), LAD 20%. EF shows inferior hypokinesis EF 45% Carotid artery stenosis without cerebral infarction, left 12/30/2020 Chronic sinusitis 06/07/2001 Diabetic macular edema of both eyes ([facility]) 01/14/2019 DM type 2, goal A1C [...] DYSRHYTHM FOCUS 04/20/2012 AV Ablation-Dr Jeffrey Campos, [facility] BREAST LESION,OTHER,EXCISION Left benign BYPASS GRFT OTHER-CAROTID Right 05/02/[address] Oshea [facility] CARDIAC CATH SCANNED RESULT 06/24/2013 +Circ stent RACHAEL. CARPAL TUNNEL SURGERY 08/1992 Carpal Tunnel repair CARPAL TUNNEL SURGERY Left 12/11/2019 NEUROPLASTY MEDIAN NERVE AT CARPAL TUNNEL performed by Pankaj Osorio MD at OR [facility] COLONOSCOPY W/ LESION REMOVAL, SNARE 07/30/2010 polyps x 2--adenomatous tissue--repeat in 3 yrs , diverticulosis & fair prep-- COLONOSCOPY, DIAGNOSTIC (RECTUM) 10/02/2015 adenomatous polyps, diverticulosis, poor prep, repeat 1 yr/[facility] ENDART DEEP FEMORAL Right 01/19/2023 DEEP FEMORAL ENDARTERECTOMY performed by Willian Rosas MD at OR [facility] EXPLORATION OF MAXILLARY SINUS 06/07/2001 Sinus Surgery HYSTEROSCOPY W/BIOPSY AND/OR POLYPECTOMY W/WO D&C 02/14/2006 INFORMATION ablation INTRODUCTION OF CATHETER, AORTA 01/19/2023 CATHETER PLACEMENT, AORTA performed by Willian Rosas MD at OR [facility] LAP;OCCULSION OVIDUCTS/DEVICE 1985 LIGATE/CUT OVIDUCT(S) tubal ligation -rings CT CORONARY ARTERY BYP W/VEIN & ARTERY GRAFT 3 VEIN 04/27/2022 KUMAR to LAD, SVG to PL of LCx and PDA of the RCA 04/27/[address] Whyte [facility]. PULMONARY FUNCTION TEST SCREEN 10/09/2001 normal REMOVE GALLBLADDER 04/1993 Cholecystectomy REPAIR OF NASAL SEPTUM 06/07/2001 Nasal Septum Repair SYNTH BYPASS, FEMORAL-POP Right 01/19/2023 BYPASS GRAFT OTHER THAN VEIN FEMORAL POPLITEAL performed by Willian Rosas MD at OR [facility] TOTAL ABD HYSTERECTOMY W/WO REMOVAL OF TUBE(S) 06/23/2008 & oopherectomy VAGINAL DELIVERY ONLY VENOGRAM EXTREMITY UNI-FLUOR Right 01/19/2023 IMAGING SUPERVISION & INTERPRETATION EXTREMITY VEIN performed by Willian Rosas MD at [facility] Family History Problem Relation Age of [...] on file Occupational History Occupation: retired. Employer: [employer] Comment: [employer] [facility] Tobacco Use Smoking status: Former Packs/day: [...] amaurosis fugax. Cardiovascular: denies chest pains, denies TN, reports CHF, reports CAD s/p PCI in 2013. Respiratory: denies shortness of breath, reports PINEDA. Musculoskeletal: reports arthritis, reports chronic low back pain. Skin: denies ulcers. Neurological: denies TIA, denies CVA, denies amaurosis fugax. Psychiatric: reports anxiety. Endocrine: reports NIDDM, reports hyperlipidemia. GENERAL MULTI-SYSTEM PHYSICAL EXAM: VITAL SIGNS: BP 122/74 (BP Site: Right Arm, BP Position: Sitting, BP Cuff Size: Regular) | LMP 03/13/2008 GENERAL MULTI-SYSTEM PHYSICAL EXAM: GENERAL: Normal grooming habits, no acute distress and appears stated age. NECK: No masses. RCEA scar RESPIRATORY: respiratory effort normal and breath sounds abnormal with expiratory wheezing noted bilaterally. CARDIOVASCULAR: Mild-moderate RLL edema GASTROINTESTINAL: no tenderness, protuberant and abdominal aorta not palpable. PSYCHIATRIC: orientation to time, place and person normal and recent and remote memory normal. EYES: conjunctivae normal. NEUROLOGIC: Motor function grossly intact RIGHT GROIN: Healed. RIGHT Leg Incisions: Healed. RIGHT MEDIAL GREAT TOE: Nearly healed, small ulcer at center of callus. PULSE SCALE: Carotid Right:----Bruit: No Left:----Bruit: Yes [...] STUDIES: 12/23/22 RANJITH: 0.48/0.65, monophasic toe PPGs 10/18/19 [...] both verts antegrade 11/2017 CT abd/pelv: moderate wopss-cpmpz-sbzquww disease bilaterally LABS: Creatinine (mg/dL) Date Value 01/21/2023 0.8 11/21/2019 0.9 LDL Cholesterol (MG/DL) Date Value 06/24/2016 64 LDL (CALCULATED)-OUTSIDE LAB (MG/DL(CALC)) Date Value 08/15/2019 85 Triglycerides Date Value 12/05/2022 338 mg/dL (H) 06/24/2016 201 MG/DL (A) TRIGLYCERIDES-OUTSIDE LAB (MG/DL) Date Value 08/15/2019 204 Hemoglobin A1C (%) Date Value 12/05/2022 11.7 (H) 11/21/2019 8.5 (H) The above clinical lab tests were reviewed by me on 02/09/2023. IMPRESSIONS: S/P RCFA => BK Pop BPG w/ cryopreserved vein, R DFA endarterectomy (beyond site of prox anastomosis), and REIA angioplasty 01/19/[address] Rosas. Asymptomatic R SCA stenosis, per RANJITH. S/P R CEA 05/02/22 @ [facility] Bilateral <50% carotid stenosis, per 2001 carotid duplex. Former smoker. CAD, H/O PCI, s/p CABG x 3, 04/27/22 @ [facility] DM Dyslipidemia HTN CHF PLAN: Incisions healed. Sutures removed. Completed antibiotics. Will need to keep an eye on the R great toe ulcer. Following with a baby doctor in [place]. Sounds like they may be getting an MRI. Continue ASA 81 mg for platelet inhibition Continue Lipitor 80 mg for dyslipidemia/hyperlipidemia/pleiotropic benefits On Rivaroxaban 2.5 mg BID for graft patency, of cryo BPG DSD to right groin, tucked under underwear and skin fold, avoid medical tape DSD (to incision) and JONATHAN to RLE Elevation of RLE [place] right great toe with betadine if becomes moist. All BP's L arm for accuracy Has f/u already scheduled for 03/01/23 @ [facility] w/ Dr. Rosas, vascular labs (RANJITH, RLE graft duplex, and carotid duplex). MATHEW Swartz Vascular and Endovascular Surgery [facility] d documented in this encounter Nursing Notes * Grceia Karimi MED ASSIST - 02/09/2023 8:29 AM EST Reviewed the option of transferring scripts to [facility] pharmacy with patient and / or family. NOLA James documented in this encounter Plan of Treatment Upcoming Encounters Date Type Department Care Team (Late st Contact Info) Description 03/01/2023 10:30 AM EST Appointment Vascular Lab [address] [address] 03/01/2023 11:00 AM EST Appointment Vascular Lab [place] [address] [place] [address] 03/01/2023 12:00 PM EST Appointment Vascular Lab [address] [address] 03/01/2023 12:15 PM EST Office Visit Vascular Surg [place] [address] [place] [address] Willian Rosas MD [address] [place] [address] 04/05/2023 11:30 AM EST Pharmacy Pharmacy, [facility] [address] [facility] [place] [address] Pharmacist2, [facility] [address] [facility] [place] [address] 06/21/2023 10:15 AM EDT Office Visit Urology, [facility] [address] [facility] [place] [address] William Doe MD [address] [facility] [address] [place] [address] 2023 3:00 PM EDT Office Visit Family Practice [facility] [address] [place] [address] Jonny Donaldson MD [address] [place] [address] Health Maintenance Due Date Last Done Comments [...] 11/15/1994 LUNG CANCER SCREENING - USE SMARTSET 07214 Completed 08/23/2022, 11/10/2020 Influenza Vaccine (FLU shot) Completed , 12/09/2021, 11/10/2020, Additional history exists GARDASIL-HPV IMMUNIZATION SERIES Aged Out No longer eligible based on patient's age to complete this topic MENINGOCOCCAL (MENACTRA/MENVEO) Aged Out No longer eligible based on patient's age to complete this topic documented as of this encounter Medical Devices Implanted Type Area Dry Roller Device Identifier Shelf Expiration Date Model / Serial / Lot Greater Than 80cm, 3mm-8mm Flora, Angiograft Pvd Saphenous Veins, Cryopreserved Implanted:Qty: 1 on 01/19/2023 by Willian Rosas MD at OR [facility] Right: Leg Upper LIFENET 07/29/2026 CV>80 / [id number] / [id number] documented as of this encounter Visit [...] Advance Directives occurred with: Patient Care Teams Science Editor Relationship Specialty Start Date End Date Jonny Donaldson MD [address] [place] [address] PCP - General Family Medicine 05/27/14 documented as of this encounter"
--- OUTSIDE RECORDS SUMMARY | 2023-03-02 22:34 | External Medical Summary | Summary of Care ---
Author Name Unknown Organization [facility] Address [address] [place] [address] Phone [phone] Care Team Providers Care Continuity Writer Name Role Phone Jonny Donaldson MD Primary Care Provider + Reason for Visit * Reason Onset Date Comments Call Back 01/27/2023 Encounter Details Date Type Department Care Team (Late st Contact Info) Description 01/27/2023 Telephone Vascular Surg [facility] [address] [place] [address] Services, [facility] [address] [place] [address] Call Back Allergies Active Allergy Reactions Criticality [...] mellitus with renal manifestations, uncontrolled(250.4 2) ([facility]) Take one pill daily 100 Tab 3 01/28/2014 Active fluticasone (FLONASE) 50 MCG/ACT nasal spray Administer 2 Sprays into each nostril 2 times a day. 18.2 mL 5 10/14/2019 Active OneTouch Ultra Blue In Vitro Strip (Glucose Blood)Indications: Type 2 diabetes mellitus with hemoglobin A1c goal of less than 8.0% ([facility]) Use up to 3 times Daily E11.9 poorly controlled. 200 Strip 11 03/11/2021 Active BD Pen Needle Tanja U/F 32G X 4 MM (Insulin Pen Needle)Indications :Type 2 diabetes mellitus with hemoglobin A1c goal of less than 8.0% ([facility]) USE TO INJECT INSULIN 2-3 times per [...] 06/27/2013 Overview: 06/24/13 +CP-abnormal stress->cath @[facility]. 100% occlusion RCA with left- right [...] 11/23/2011 Overview: 04/20/12 AV Ablation-Dr Jeffrey Campos, [facility] Episode June 2011 around 03/12/12 [facility]-P175 SVT--sched for [facility] EP study Routine general medical exam ination at a health care facility 11/11/2011 Overview: 01/18 Carotid US [facility] stable 50-69 on left. 10/18 colonoscopy [facility] 3 3-[address] Juan Mak [facility] (11/19 06/14 Cologuard WNL. Cardiology-Jeffrey Campos [facility]. 12/17 Carotid 50-69% left ICA stenosis. Vielka [...] PFT evidence of COPD ) 05/10 TTE @[facility] Acmtigjfcq-hiap-wblqxh EF, mild LVH, Gr1 Feldman Dys 07/09 colonoscopy [facility]-3 & 6mm polyp--PAth--Tubular adenoma 07/09 [facility] TSH & celiac testing WNL 04/11 ER [...] mRNA, LNP-s, No Pre serve, 2-Dose Series ([employer]) 01/24/2021,01/04/2021,06/03/2020 Hepatitis B, 20+ yrs 08/27/2009,03/30/2009,02/27 Pneumococcal [...] encounter Miscellaneous Notes * Telephone Encounter - Timo Bradley CRNP - 01/27/2023 11:01 AM EST Ms. Liao is s/p right common femoral artery to below knee popliteal artery cryopreserved vein bypass, right deep femoral endarterectomy, beyond the site of our bypass proximal anastomosis (commonfemoral endarterectomy also performed as part of the revascularization) and percutaneous transluminal angioplasty of the right external iliac artery using a 6 mm angioplasty balloon She is calling today inquiring as to wound care and future suture removal. She reports surgical incisions are well approximated with no s/s of infection to include absence of any drainage. Instructed to wash incisions daily with warm soapy water, NO SOAKING, and to leave incisions clean and dry. Review of op note suggest Nylon sutures to below knee incision. Will arrange for wound check and possible suture removal at [facility] on 02/09/2023 (double booked at 0910 time slot.) Encouraged to call back sooner with any concerns. * Telephone Encounter - Milli Goncalves OSA [...] Description 02/01/2023 10:40 AM EST Office Visit [address] [place] [address] Jonny Donaldson MD [address] [place] [address] 02/08/2023 1:30 PM EST Office Visit Pharmacy, [facility] [address] [facility] [place] [address] Pharmacist2, [facility] [address] [facility] [place] [address] 02/09/2023 9:10 AM EST Office Visit Vascular Surgery, [address] [address] Americo Landis MD [address] [place] [address] 03/01/2023 10:30 AM EST Appointment Vascular Lab [facility] [address] [place] [address] 03/01/2023 11:00 AM EST Appointment Vascular Lab [facility] [address] [place] [address] 03/01/2023 12:00 PM EST Appointment Vascular Lab [facility] [address] [place] [address] 03/01/2023 12:15 PM EST Office Visit Vascular Surg [facility] [address] [place] [address] Willian Rosas MD [address] [place] [address] 2023 3:00 PM EDT Office Visit Family Practice [facility] [address] [place] [address] Jonny Donaldson MD [address] [place] [address] Health Maintenance Due Date Last Done Comments [...] 11/15/1994 LUNG CANCER SCREENING - USE SMARTSET [id number] Completed 08/23/2022, 11/10/2020 Influenza Vaccine (FLU shot) Completed , 12/09/2021, 11/10/2020, Additional history exists GARDASIL-HPV IMMUNIZATION SERIES Aged Out No longer eligible based on patient's age to complete this topic MENINGOCOCCAL (MENACTRA/MENVEO) Aged Out No longer eligible based on patient's age to complete this topic documented as of this encounter Medical Devices Implanted Type Area Field Kiln Burner Device Identifier Shelf Expiration Date Model / Serial / Lot Greater Than 80cm, 3mm-8mm Flora, Angiograft Pvd Saphenous Veins, Cryopreserved Implanted:Qty: 1 on 01/19/2023 by Willian Rosas MD at [facility] Right: Leg Upper LIFENET 07/29/2026 CV>80 / [id number] / [id number] documented as of this encounter Advance [...] Advance Directives occurred with: Patient Care Teams Continuity Writer Relationship Specialty Start Date End Date Jonny Donaldson MD [address] [facility] [place] [address] PCP - General Family Medicine 05/27/14 documented as of this encounter
--- OUTSIDE RECORDS SUMMARY | 2023-03-02 22:35 | External Medical Summary | Summary of Care ---
Author Name Unknown Organization [facility] Address [address] [place] [address] Phone [phone] Care Team Providers Care Cylinder Block Hole Reliner Name Role Phone Jonny Donaldson MD Primary Care Provider + Reason for Visit * Reason Onset Date Comments Hospital Follow-Up 01/23/2023 Encounter Details Date Type Department Care Team (Late st Contact Info) Description 01/23/2023 Telephone Vascular Surg [facility] [address] [place], [place] [id number] Willian Rosas MD [address], [place] [phone] Hospital Follow-Up Allergies Active Allergy Reactions Criticality Noted Date Comments Cephalexin 01/28/1996 rash Doxepin 02/01/2018 Dust 04/04/2001 Nickel Anaphylaxis High 04/04/2001 Paroxetine 04/28/2003 generic only, brand ok Penicillins 03/03/1995 Rash Sulfa Antibiotics 11/27/1994 Rash documented as of this encounter (statuses as of 01/23/2023) Medications Medication Sig Dispensed Refills Start Date [...] EVERY MORNING 180 Tablet 2 10/10/2022 Active traMADol HCl 50 MG Oral Tablet (Ultram)Indication s:Sciatica, unspecified laterality Take 1-2 Tablets by mouth every 6 hours as needed (pain). 60 Tablet 0 10/23/2022 Active Victoza 18 MG/3ML Subcutaneous Solution Pen-injector [...] than 8.0% ([facility]) TAKE 1 TABLET IN THE MORNING 90 [...] days. 24 Tablet 0 01/21/2023 3 Active documented as of this encounter (statuses as of 01/23/2023) Active Problems Problem Noted Date Diagnosed Date Acute lower limb ischemia 01/19/2023 Diabetic foot infection 01/19/2023 COPD, group A, by GOLD 2017 classification 01/09 Overview: Per COPD GOLD Classification Urge incontinence of urine 11/28/2022 S/P CABG x 3 06/01/2022 Overview: KUMAR to LAD, SVG to PL of LCx and PDA of the RCA 04/27/[address] Whyte [facility]. History of nonmelanoma skin cancer 05/25/2022 [...] artery disease) 06/27/2013 Overview: 06/24/13 +CP-abnormal stress->cath @[facility]. 100% occlusion RCA with left- right [...] Medical Center Episode June 2011 around 03/12/12 [facility]-P175 SVT--sched for [place] EP study Routine general medical exam ination at a health care facility 11/11/2011 Overview: 01/18 Carotid US [place] stable 50-69 on left. 10/18 colonoscopy [facility] 3 3-[address] Juan Mak [facility] (11/19 06/14 Cologuard WNL. Cardiology-Jeffrey Campos [place]. 12/17 Carotid 50-69% left ICA stenosis. Vielka [...] PFT evidence of COPD ) 05/10 TTE @[facility] Bkpraihwlr-nlvh-vhmdck EF, mild LVH, Gr1 Feldman Dys 07/09 colonoscopy [facility] [place]-3 & 6mm polyp--PAth--Tubular adenoma 07/09 [place] TSH & celiac testing WNL 04/11 ER visit [facility] SVT--resolved with adenosine. 03/11 EKG-scanned QTc [...] as of this encounter (statuses as of 01/23/2023) Resolved Problems Problem Noted Date Diagnosed Date [...] as of this encounter (statuses as of 01/23/2023) Immunizations Name Administration Dates Next Due COVID-19 mRNA, LNP-s, No Pre serve, 2-Dose Series (Patsnap) 01/24/2021,01/04/2021,06/03/2020 Hepatitis B, 20+ yrs 08/27/2009,03/30/2009,02/27 Pneumococcal [...] Telephone Encounter - Roman Cox OSA - 01/23/2023 12:59 PM EST Patient scheduled for 1 month f/u with studies * Telephone Encounter - Roman Cox OSA - 01/23/2023 12:59 PM EST ----- Message from MATHEW Ramírez sent at 01/23/2023 9:40 AM EST ----- Orders placed ----- Message ----- From: Roman Cox OSA Sent: 01/23/2023 9:36 AM EST To: [facility]Class Can you please place orders for these 2 studies? ----- Message ----- From: Adam Penn MD Sent: 01/21/2023 10:19 AM EST To: [facility]Class Ct, Please schedule this pt for a 1 month f/u with Dr. Rosas and arterial duplex and RANJITH. Thanks! documented in this encounter Plan of Treatment Upcoming Encounters Date Type Department Care Team (Late st Contact Info) Description 01/25/2023 9:30 AM EST Office Visit Vascular Surgery, [facility] [address] [place] [address] Robert Alejo MD [address] [facility] [place] [address] 02/08/2023 1:30 PM EST Office Visit Pharmacy, [facility] [address] [place] [address] Pharmacist2, [facility] [address] [place] [address] 03/01/2023 10:30 AM EST Appointment Vascular Lab [place] [address] [place] [address] 03/01/2023 11:00 AM EST Appointment Vascular Lab [place] [address] [place] [address] 03/01/2023 12:15 PM EST Office Visit Vascular Surg [place] [address] [place] [address] Willian Rosas MD [address] [place] [address] 2023 3:00 PM EDT Office Visit Family Practice [facility] [address] [place] [address] Jonny Donaldson MD [address] [facility] [place] [address] Health Maintenance Due Date Last Done Comments [...] 11/15/1994 LUNG CANCER SCREENING - USE SMARTSET 94921 Completed 08/23/2022, 11/10/2020 Influenza Vaccine (FLU shot) Completed , 12/09/2021, 11/10/2020, Additional history exists GARDASIL-HPV IMMUNIZATION SERIES Aged Out No longer eligible based on patient's age to complete this topic MENINGOCOCCAL (MENACTRA/MENVEO) Aged Out No longer eligible based on patient's age to complete this topic documented as of this encounter Medical Devices Implanted Type Area Airport Manager Device Identifier Shelf Expiration Date Model / Serial / Lot Greater Than 80cm, 3mm-8mm Flora, Angiograft Pvd Saphenous Veins, Cryopreserved Implanted:Qty: 1 on 01/19/2023 by Willian Rosas MD at [facility] [place] Right: Leg Upper LIFENET 07/29/2026 CV>80 / [id number] / [id number] documented as of this encounter Advance [...] Advance Directives occurred with: Patient Care Teams Cylinder Block Hole Reliner Relationship Specialty Start Date End Date Jonny Donaldson MD [address] [place] [address] PCP - General Family Medicine 05/27/14 documented as of this encounter
--- OUTSIDE RECORDS SUMMARY | 2023-03-02 22:35 | External Medical Summary | Summary of Care ---
Author Name Unknown Organization [facility] Address [address] [place] [address] Phone [phone] Care Team Providers Care Head Of Business Development Name Role Phone Jonny Donaldson MD Primary Care Provider + Encounter Details Date Type Department Care Team (Late st Contact Info) Description 01/23/2023 Orders Only Vascular Surg [facility] [address], [place] [address] Elver Goana CRNP [address] [place] [address] Diabetic ulcer of toe of right foot associated with type 1 diabetes mellitus, unspecified ulcer stage (HCC)* Allergies Active Allergy Reactions Criticality Noted Date [...] with renal manifestations, uncontrolled(250.4 2) ([facility]) Take one pill daily 100 Tab 3 01/28/2014 Active fluticasone (FLONASE) 50 MCG/ACT nasal spray Administer 2 Sprays into each nostril 2 times a day. 18.2 mL 5 10/14/2019 Active OneTouch Ultra Blue In Vitro Strip (Glucose Blood)Indications: Type 2 diabetes mellitus with hemoglobin A1c goal of less than 8.0% ([facility]) Use up to 3 times Daily E11.9 poorly controlled. 200 Strip 11 03/11/2021 Active BD Pen Needle Tanja U/F 32G X 4 MM (Insulin Pen Needle)Indications :Type 2 diabetes mellitus with hemoglobin A1c goal of less than 8.0% ([facility]) USE TO INJECT INSULIN 2-3 [...] of the RCA 04/27/[address] Whyte [facility]. History of nonmelanoma skin cancer [...] artery disease) 06/27/2013 Overview: 06/24/13 +CP-abnormal stress->cath @[facility]. 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 [...] Medical Center Episode June 2011 around 03/12/12 [place] [facility]-P175 SVT--sched for [place] EP study Routine general medical exam ination at a health care facility 11/11/2011 Overview: 01/18 Carotid US [place] stable 50-69 on left. 10/18 colonoscopy [facility] 3 3-[address] Juan Mak [facility] (11/19 06/14 Cologuard WNL. Cardiology-Jeffrey Campos [place]. 12/17 Carotid 50-69% left ICA stenosis. Vielka [...] PFT evidence of COPD ) 05/10 TTE @[place] Lcgxbmlhov-eyis-iyfeti EF, mild LVH, Gr1 Jessica Dys 07/09 colonoscopy [facility] [place]-3 & 6mm polyp--PAth--Tubular adenoma 07/09 [place] TSH & celiac testing WNL 04/11 ER visit [facility] SVT--resolved with adenosine. 03/11 EKG-scanned QTc 414 [...] mRNA, LNP-s, No Pre serve, 2-Dose Series (Xeebel) 01/24/2021,01/04/2021,06/03/2020 Hepatitis B, 20+ yrs 08/27/2009,03/30/2009,02/27 Pneumococcal [...] 9:30 AM EST Office Visit [facility]ascular [facility], [facility] [place] [address] Robert Alejo MD [address] [place] [address] 02/08/2023 1:30 PM EST Office Visit Pharmacy, [facility] [address] [place] [address] Pharmacist2, [facility] [address] [place] [address] 2023 3:00 PM EDT Office Visit Family Practice [facility] [address] [place] [address] Jonny Donaldson MD [address] [facility] [place] [address] Scheduled Orders Name Type Priority Associated Diagnoses Orde r Schedule VASC DUPLEX ART LE LMT-GRAFT Medical Imaging Routine Diabetic ulcer of toe of right foot associated with type 1 diabetes mellitus, unspecified ulcer stage (HCC) Ordered: 01/23/2023 VASC ANKLE BRACHIAL INDICES WITHOUT PPG (PAD) Medical Imaging Routine Diabetic ulcer of toe of right foot associated with type 1 diabetes mellitus, unspecified ulcer stage (HCC) Ordered: 01/23/2023 Health Maintenance Due Date Last Done Comments [...] 11/15/1994 LUNG CANCER SCREENING - USE SMARTSET 25021 Completed 08/23/2022, 11/10/2020 Influenza Vaccine (FLU shot) Completed , 12/09/2021, 11/10/2020, Additional history exists GARDASIL-HPV IMMUNIZATION SERIES Aged Out No longer eligible based on patient's age to complete this topic MENINGOCOCCAL (MENACTRA/MENVEO) Aged Out No longer eligible based on patient's age to complete this topic documented as of this encounter Medical Devices Implanted Type Area Elementary Science Teacher Device Identifier Shelf Expiration Date Model / Serial / Lot Greater Than 80cm, 3mm-8mm Flora, Angiograft Pvd Saphenous Veins, Cryopreserved Implanted:Qty: 1 on 01/19/2023 by Willian Rosas MD at OR [facility] [place] Right: Leg Upper LIFENET 07/29/2026 CV>80 / [id number] / [id number] documented as of this encounter Visit Diagnoses Diagnosis Diabetic ulcer of toe of right foot associated with type 1 diabetes mellitus, unspecified ulcer stage (HCC)- Primary documented in this encounter Advance Directives [...] Advance Directives occurred with: Patient Care Teams Head Of Business Development Relationship Specialty Start Date End Date Jonny Donaldson MD [address] [facility] [place] [address] PCP - General Family Medicine 05/27/14 documented as of this encounter
--- OUTSIDE RECORDS SUMMARY | 2023-03-02 22:35 | External Medical Summary | Summary of Care ---
Author Name Unknown Organization [facility] Address [address] [place] [address] Phone [phone] Care Team Providers Care Informatics Pharmacist Name Role Phone Jonny Donaldson MD Primary Care Provider + Reason for Visit * Reason Onset Date Comments Vascular Study 01/24/2023 Encounter Details Date Type Department Care Team (Late st Contact Info) Description 01/24/2023 Telephone Vascular Surgery, [facility] [address] [facility] [place] [address] Darnell Chavez PA-C [address] [place] [address] Vascular Study Allergies Active Allergy Reactions Criticality Noted Date Comments Cephalexin 01/28/1996 rash Doxepin 02/01/2018 Dust 04/04/2001 Nickel Anaphylaxis High 04/04/2001 Paroxetine 04/28/2003 generic only, brand ok Penicillins 03/03/1995 Rash Sulfa Antibiotics 11/27/1994 Rash documented as of this encounter (statuses as of 01/24/2023) Medications Medication Sig Dispensed Refills Start Date [...] needed (pain). 60 Tablet 0 01/23/2023 Active documented as of this encounter (statuses as of 01/24/2023) Active Problems Problem Noted Date Diagnosed Date Acute lower limb ischemia 01/19/2023 Diabetic foot infection 01/19/2023 COPD, group A, by GOLD 2017 classification 01/09 Overview: Per COPD GOLD Classification Urge incontinence of urine 11/28/2022 S/P CABG x 3 06/01/2022 Overview: KUMAR to LAD, SVG to PL of LCx and PDA of the RCA 04/27/[address] Whyte [facility]. History of nonmelanoma skin cancer 05/25/2022 Overview: [...] artery disease) 06/27/2013 Overview: 06/24/13 +CP-abnormal stress->cath @[facility]. 100% occlusion RCA with left- right [...] Medical Center Episode June 2011 around 03/12/12 [place] hosp-P175 SVT--sched for [place] EP study Routine general medical exam ination at a health care facility 11/11/2011 Overview: 01/18 Carotid US [place] stable 50-69 on left. 10/18 colonoscopy [facility] 3 3-[address] Juan Mak [facility] (11/19 06/14 Cologuard WNL. Cardiology-Jeffrey Campos [place]. 12/17 Carotid 50-69% left ICA stenosis. Vielka [...] PFT evidence of COPD ) 05/10 TTE @[place] Elhyuuobsn-sshj-huuunl EF, mild LVH, Gr1 Jessica Dys 07/09 colonoscopy [facility] [place]-3 & 6mm polyp--PAth--Tubular adenoma 07/09 [place] TSH & celiac testing WNL 04/11 ER [...] as of this encounter (statuses as of 01/24/2023) Resolved Problems Problem Noted Date Diagnosed Date [...] as of this encounter (statuses as of 01/24/2023) Immunizations Name Administration Dates Next Due COVID-19 mRNA, LNP-s, No Pre serve, 2-Dose Series (CareParent) 01/24/2021,01/04/2021,06/03/2020 Hepatitis B, 20+ yrs 08/27/2009,03/30/2009,02/27 Pneumococcal [...] encounter Miscellaneous Notes * Telephone Encounter - Darnell Chavez PA-C - 01/24/2023 2:30 PM EST Saima- Please add carotid duplex to patient's next visit, on 03/01/23 w/ Dr. Rosas @ [facility]. Patient already has RANJITH and RLE graft art duplex Thank you Darnell documented in this encounter Plan of Treatment Upcoming Encounters Date Type Department Care Team (Late st Contact Info) Description 01/25/2023 9:30 AM EST Office Visit Vascular Surgery, [facility] [address] [place] [address] Robert Alejo MD [address] [place] [address] 02/01/2023 10:40 AM EST Office Visit Family Practice [facility] [address] [place] [address] Jonny Donaldson MD [address] [facility] [place] [address] 02/08/2023 1:30 PM EST Office Visit Pharmacy, [facility] [address] [facility] [place] [address] Pharmacist2, [facility] [address] [facility] [place] [address] 03/01/2023 10:30 AM EST Appointment Vascular Lab [place] [address] [facility] [place] [address] 03/01/2023 11:00 AM EST Appointment Vascular Lab [facility] [address] [facility] [place] [address] 03/01/2023 12:15 PM EST Office Visit Vascular Surg [facility] [address] [place] [address] Willian Rosas MD [address] [facility] [place] [address] 2023 3:00 PM EDT Office Visit [facility] [address] [place] [address] Jonny Donaldson MD [address] [place] [address] Scheduled Orders Name Type Priority Associated Diagnoses Orde r Schedule VASC DUPLEX CAROTID BILAT Medical Imaging Routine Carotid stenosis, non-symptomatic, bilateral Ordered: 01/24/2023 Health Maintenance Due Date Last Done Comments [...] 11/15/1994 LUNG CANCER SCREENING - USE SMARTSET [id number] Completed 08/23/2022, 11/10/2020 Influenza Vaccine (FLU shot) Completed , 12/09/2021, 11/10/2020, Additional history exists GARDASIL-HPV IMMUNIZATION SERIES Aged Out No longer eligible based on patient's age to complete this topic MENINGOCOCCAL (MENACTRA/MENVEO) Aged Out No longer eligible based on patient's age to complete this topic documented as of this encounter Medical Devices Implanted Type Area Lead Business Analyst Device Identifier Shelf Expiration Date Model / Serial / Lot Greater Than 80cm, 3mm-8mm Flora, Angiograft Pvd Saphenous Veins, Cryopreserved Implanted:Qty: 1 on 01/19/2023 by Willian Rosas MD at OR [facility] Right: Leg Upper LIFENET 07/29/2026 CV>80 / [id number] / [id number] documented as of this encounter Visit Diagnoses Diagnosis Carotid stenosis, non-symptomatic, bilateral- Primary documented in this encounter Advance Directives [...] Advance Directives occurred with: Patient Care Teams Informatics Pharmacist Relationship Specialty Start Date End Date Jonny Donaldson MD [address] [place] [address] PCP - General Family Medicine 05/27/14 documented as of this encounter
--- OUTSIDE RECORDS SUMMARY | 2023-03-02 22:35 | External Medical Summary | Summary of Care ---
Author Name Unknown Organization [facility] Address [address] [place] [address] Phone [phone] Care Team Providers Care Pediatric Allergist Name Role Phone Jonny Donaldson MD Primary Care Provider + Reason for Visit * Reason Onset Date Comments Hospital Follow-Up 01/23/2023 Encounter Details Date Type Department Care Team (Late st Contact Info) Description 01/23/2023 Telephone Ancillary [facility] Breanna Meredith [address] [place] [address] Tabby Ramirez, [facility] Hospital Follow-Up Allergies Active Allergy Reactions Criticality Noted Date Comments Cephalexin 01/28/1996 rash Doxepin 02/01/2018 Dust 04/04/2001 Nickel Anaphylaxis High 04/04/2001 Paroxetine 04/28/2003 generic only, brand ok Penicillins 03/03/1995 Rash Sulfa Antibiotics 11/27/1994 Rash documented as of this encounter (statuses as of 01/23/2023) Medications Medication Sig Dispensed Refills Start Date End Date Status OMEGA MORGANTOUCH ULTRA SYSTEM W/DEVICE KITIndications:DM type 2, goal [...] diabetes mellitus with renal manifestations, uncontrolled(250.4 2) ([facility]) Take one pill daily 100 Tab 3 01/28/2014 Active fluticasone (FLONASE) 50 MCG/ACT nasal spray Administer 2 Sprays into each nostril 2 times a day. 18.2 mL 5 10/14/2019 Active OneTouch Ultra Blue In Vitro Strip (Glucose Blood)Indications: Type 2 diabetes mellitus with hemoglobin A1c goal of less than 8.0% ([facility]) Use up to 3 times Daily E11.9 poorly controlled. 200 Strip 11 03/11/2021 Active BD Pen Needle Tanja U/F 32G X 4 MM (Insulin Pen Needle)Indications :Type 2 diabetes mellitus with hemoglobin A1c goal of less than 8.0% ([facility]) USE TO INJECT INSULIN 2-3 [...] of the RCA 04/27/[address]. History of nonmelanoma skin cancer 05/25/2022 Overview: [...] artery disease) 06/27/2013 Overview: 06/24/13 +CP-abnormal stress->cath @[facility]. 100% occlusion RCA with left- [...] 11/23/2011 Overview: 04/20/12 AV Ablation-Dr Jeffrey Campos, [facility] Episode June 2011 around 03/12/12 [place] hosp-P175 SVT--sched for [place] EP study Routine general medical exam ination at a health care facility 11/11/2011 Overview: 01/18 Carotid US [place] stable 50-69 on left. 10/18 colonoscopy [facility] 3 3-[address] Juan Mak [facility] (11/19 06/14 Cologuard WNL. Cardiology-Jeffrey Campos [place]. 12/17 Carotid 50-69% left ICA stenosis. Vielka done 07/18. 12/17 TTE normal EF Gr1 Feldman dys. Mild MR/TR. Aortic sclerosis 10/12 colonoscopy-polyps tubular adenomas. IVELKA 1y poor prep needs 2d prep--declined, 05/14 cologuard ordered. August 2014-cont Brilinta PFTs--reduced FEV1 and FVC with a normal obstruction index. Post bronchodilator testing failed to demonstrate a significant improvement in FEV1 or FVC. The total lung capacity is mildly reduced (restricted rather than obstructed. Some of the changes consistent with obesity. No good PFT evidence of COPD ) 05/10 TTE @[place] Manxbcpkax-brvy-gbadkb EF, mild LVH, Gr1 Feldman Dys 07/09 colonoscopy [facility] [place]-3 & 6mm polyp--PAth--Tubular adenoma 07/09 [place] TSH & celiac testing WNL 04/11 [...] encounter Miscellaneous Notes * Telephone Encounter - Tabby Ramirez RN - 01/23/2023 4:13 PM EST Transitions of Care Note Reason for Referral:Recent Admission Phone visit for follow up: BRANDY Admitted to: [facility] [place], Date: 01/19/2023 Discharged to: Home with self care, Date: 01/21/2023 Diagnosis driving hospitalization: Right femoral endarterectomy and below the knee popliteal bypass Source/Contact: Patient SUBJECTIVE Consent: Verbal consent for review of hospital discharge: Yes REVIEW OF SYSTEMS Patient/Other Reports: Current patient/caregiver problems or concerns: none CV: Edema- Right leg Pulmonary: Denies problems Chills/Sweats/Fever:Denies chills/sweats Denies fever Appetite:Denies problems such as nausea, vomiting, burning, decreased appetite Current diet: heart healthy, low fat Bowel: constipation Bladder: denies problems Wound (If applicable): Site-R leg and groin, Drainage-scant, and swelling and painful between 4-6 Pain:Location- R leg and groin Intensity- 4-6 (Scale 0-10) Pain medication-decreases pain Current pain management effective: Yes Sleep:Denies problems Encouraged to use pillows under leg while laying flat FUNCTIONAL STATUS: ADL'S: Needs Assistance With:N/A as pt is independent IADL'S: Needs Assistance With:Grocery Shopping, Cooking food, and Routine Housework Cognitive and Mental Health: denies problems, alert and oriented x 3, and able to communicate, understand instructions, process information. MEDICATION RECONCILIATION Medications: Discharge med list reviewed with patient or caregiver New medication(s) filled since hospitalization- see below Changed medication(s) since hospitalization See below Discontinued medication(s) since hospitalization- see below Reports all medications taken as prescribed. Only has a few tramadol left. A message was sent to Dr. Donaldson and medication has been pended. Told patient that if she does not hear back from Dr. Donaldson by tomorrow 01/14 to call vascular sx START taking these medications INSTRUCTIONS Cefuroxime 500 MG Tablet Commonly known as: Ceftin Take 1 Tablet by mouth in the morning and 1 Tablet before bedtime. Do all this for 12 days. CHANGE how you take these medications INSTRUCTIONS doxycycline hyclate 100 MG Capsule What changed: additional instructions Take 1 Capsule by mouth in the morning and 1 Capsule before bedtime. Do all this for 12 days. CONTINUE taking these medications INSTRUCTIONS amitriptyline 50 MG Tablet Commonly known as: Elavil TAKE ONE TABLET BY MOUTH EVERY DAY aspirin enteric coated 81 MG Tbec Take one pill daily atorvaSTATin 80 MG Tablet Commonly known as: Lipitor TAKE ONE TABLET BY MOUTH EVERY DAY BD Pen Needle Tanja U/F 32G X 4 MM Generic drug: Insulin Pen Needle USE TO INJECT INSULIN 2-3 times per day Estradiol 0.1 MG/GM vaginal cream Commonly known as: Estrace Apply pea sized amount (0.5 gm) vaginally twice a week at bedtime fluticasone 50 MCG/ACT nasal spray Commonly known as: Flonase Administer 2 Sprays into each nostril 2 times a day. Gabapentin 300 MG Capsule Commonly known as: Neurontin 1 cap at lunch and 1 cap in evening by mouth for restless leg Insulin Glargine Solostar 100 UNIT/ML Sopn Commonly known as: Basaglar KwikPen Inject 54 units once daily Jardiance 10 MG Tabs Generic drug: Empagliflozin TAKE 1 TABLET IN THE MORNING Krill Oil 1000 MG Capsule Take 1 Capsule by mouth in the morning. LORAzepam 0.5 MG Tablet Commonly known as: Ativan Take 1 Tablet by mouth every 8 hours as needed for Anxiety or Insomnia. metFORMIN 850 MG Tablet Commonly known as: Glucophage TAKE ONE TABLET BY MOUTH THREE TIMES DAILY WITH MEALS FOR FOR DIABETES metoprolol succinate XL 25 MG Tb24 Commonly known as: toPROL XL Take 1 Tablet by mouth in the morning. Myrbetriq 50 MG Tb24 Generic drug: Mirabegron ER Take 1 Tablet by mouth in the morning. NovoLOG FlexPen 100 UNIT/ML Sopn Generic drug: insulin aspart Inject 10 Units under the skin in the morning and 10 Units at noon and 10 Units in the evening. Inject with meals. OneTouch Ultra Blue Strp Generic drug: Glucose Blood Use up to 3 times Daily E11.9 poorly controlled. OneTouch Ultra System w/Device Kit Use up to four times a day as directed OneTouch UltraSoft Lancets [facility] [place] blood sugar 4 times per day 250.42 Rivaroxaban 2.5 MG Tabs Commonly known as: Xarelto Take 1 Tablet by mouth in the morning and 1 Tablet before bedtime. rOPINIRole 0.5 MG Tablet Commonly known as: Requip TAKE ONE TABLET BY MOUTH AT BEDTIME AND BEFORE naps sertraline 50 MG Tablet Commonly known as: Zoloft TAKE TWO TABLETS BY MOUTH EVERY MORNING traMADol 50 MG Tablet Commonly known as: Ultram Take 1-2 Tablets by mouth every 6 hours as needed (pain). Ventolin HFA 108 (90 Base) MCG/ACT Aers Inhale 2 Puffs by mouth every 4 hours as needed for Cough or Wheezing. Strength: 108 (90 Base) MCG/ACT Victoza 18 MG/3ML Sopn Generic drug: Liraglutide INJECT 1.2 MG SUBCUTANEOUSLY DAILY IF FASTING SUGAR IS OVER 150 STOP taking these medications Magnesium Carbonate 250 MG/GM Powd ASSESSMENT Medication Risk Assessment: No risks identified Did patient fail outpatient treatment? No Discharge instructions available for review? Yes PLAN Symptom Monitoring Interventions:Member/caregiver education - signs and symptoms to contact PrimaryCare (DO NOT DELETE-Three amaro symptoms patient is to report to PCP) 1. Temp greater than 101 2. Fever chills 3. Cough SOB Research Associate Molecular BiologyCordwood Cutter Helper of Care interventions/Action Plan: Follow up appointment made with Dr. Comer on 01/31 at 1040. Patient instructions stated to f/u with PCP in 2 weeks. Educated on role of BRANDY completed with patient/caregiver. Educated patient/caregiver on patient right to have input on BRANDY plan of care. Verification of Home Health/DME if indicated: NO n/z Identified Care Gaps: Yes Care Gaps closed this call: Appointment made or confirmed and Transition of Care follow-up communication Re-evaluation of Plan of Care and progress towards goals achievement: Patient education this visit: Verbal, Regarding constipation, increase fluids, eat prunes, can use stool softeners or Mirilax as needed. While OOB sitting have R leg elevated on pillow and when sleeping have leg elevated on pillow. No driving x 4 weeks, no heavy lifting x 4 weeks. F/u appointment with vascular on 01/25 at 930. Plan to discharge needs met, verbalizes understanding and agrees with plan. Tabby Boo, RN documented in this encounter Plan of Treatment Upcoming Encounters Date Type Department Care Team (Late st Contact Info) Description 01/25/2023 9:30 AM EST Office Visit Vascular Surgery, [facility] [address] [place] [address] Robert Alejo MD [address] [place] [address] 02/01/2023 10:40 AM EST Office Visit [facility] [address] [address] Jonny Donaldson MD [address] [place] [address] 02/08/2023 1:30 PM EST Office Visit Pharmacy, [facility] [address] [facility] [place] [address] Pharmacist2, [facility] 200 [facility] [place] [address] 03/01/2023 10:30 AM EST Appointment Vascular Lab [facility] [address] [place] [address] 03/01/2023 11:00 AM EST Appointment Vascular Lab [facility] [address] [place] [address] 03/01/2023 12:15 PM EST Office Visit Vascular Surg [facility] [address] [place] [address] Willian Rosas MD [address] [place] [address] 2023 3:00 PM EDT Office Visit [facility] [address] [address] Jonny Donaldson MD [address] [address] Health Maintenance Due Date Last Done Comments [...] 11/15/1994 LUNG CANCER SCREENING - USE SMARTSET 70191 Completed 08/23/2022, 11/10/2020 Influenza Vaccine (FLU shot) Completed , 12/09/2021, 11/10/2020, Additional history exists GARDASIL-HPV IMMUNIZATION SERIES Aged Out No longer eligible based on patient's age to complete this topic MENINGOCOCCAL (MENACTRA/MENVEO) Aged Out No longer eligible based on patient's age to complete this topic documented as of this encounter Medical Devices Implanted Type Area School Bus Driver/Teacher Assistant Device Identifier Shelf Expiration Date Model / Serial / Lot Greater Than 80cm, 3mm-8mm Flora, Angiograft Pvd Saphenous Veins, Cryopreserved Implanted:Qty: 1 on 01/19/2023 by Willian Rosas MD at [place] [facility] [place] Right: Leg Upper LIFENET 07/29/2026 CV>80 / [id number] / [id number] documented as of this encounter Advance [...] Advance Directives occurred with: Patient Care Teams Pediatric Allergist Relationship Specialty Start Date End Date Jonny Donaldson MD [address] [facility] [place] [address] PCP - General Family Medicine 05/27/14 documented as of this encounter
--- OUTSIDE RECORDS SUMMARY | 2023-03-02 22:35 | External Medical Summary | Summary of Care ---
Author Name Unknown Organization [facility] Address [address] [place] [address] Phone [phone] Care Team Providers Care Gold Letterer Name Role Phone Jonny Donaldson MD Primary Care Provider + Reason for Visit * Reason Onset Date Comments Vascular Study 01/24/2023 Encounter Details Date Type Department Care Team (Late st Contact Info) Description 01/24/2023 Telephone Vascular Surgery, [facility] 132 [facility] [place] [address] Darnell Chavez PA-C [address] [place] [address] Vascular Study Allergies Active Allergy [...] with renal manifestations, uncontrolled(250.4 2) ([facility]) Take one pill daily 100 Tab 3 01/28/2014 Active fluticasone (FLONASE) 50 MCG/ACT nasal spray Administer 2 Sprays into each nostril 2 times a day. 18.2 mL 5 10/14/2019 Active OneTouch Ultra Blue In Vitro Strip (Glucose Blood)Indications: Type 2 diabetes mellitus with hemoglobin A1c goal of less than 8.0% ([facility]) Use up to 3 times Daily E11.9 poorly controlled. 200 Strip 11 03/11/2021 Active BD Pen Needle Tanja U/F 32G X 4 MM (Insulin Pen Needle)Indications :Type 2 diabetes mellitus with hemoglobin A1c goal of less than 8.0% ([facility]) USE TO INJECT INSULIN 2-3 [...] of the RCA 04/27/[address] Whyte [facility]. History of nonmelanoma skin cancer 05/25/2022 Overview: [...] artery disease) 06/27/2013 Overview: 06/24/13 +CP-abnormal stress->cath @[facility]. 100% occlusion RCA with left- right [...] 11/23/2011 Overview: 04/20/12 AV Ablation-Dr Jeffrey Campos, [facility] Episode June 2011 around 03/12/12 [place] hosp-P175 SVT--sched for [place] EP study Routine general medical exam ination at a health care facility 11/11/2011 Overview: 01/18 Carotid US [place] stable 50-69 on left. 10/18 colonoscopy [facility] 3 3-[address] Juan Mak [facility] (11/19 [...] evidence of COPD ) 05/10 TTE @[place] Efazujvxza-fzco-gxeyqa EF, mild LVH, Gr1 Feldman Dys 07/09 colonoscopy [facility] [place]-3 & 6mm polyp--PAth--Tubular adenoma [...] mRNA, LNP-s, No Pre serve, 2-Dose Series ([employer]) 01/24/2021,01/04/2021,06/03/2020 Hepatitis B, 20+ yrs 08/27/2009,03/30/2009,02/27 Pneumococcal [...] encounter Miscellaneous Notes * Telephone Encounter - Saima Arnold OSA - 01/25/2023 8:54 AM EST Study scheduled to match existing appointments * Telephone Encounter - Darnell Chavez PA-C - 01/24/2023 2:30 PM EST Saima- Please add carotid duplex to patient's next visit, on 03/01/23 w/ Dr. Rosas @ [facility]. Patient already has RANJITH and RLE graft art duplex Thank you Darnell documented in this encounter Plan of Treatment Upcoming Encounters Date Type Department Care Team (Late st Contact Info) Description 01/25/2023 9:30 AM EST Office Visit Vascular Surgery, [facility] [address] [place] [address] Robert Alejo MD [address] [place] [address] 02/01/2023 10:40 AM EST Office Visit Family Practice [facility] [address] [place] [address] Jonny Donaldson MD [address] [place] [address] 02/08/2023 1:30 PM EST Office Visit Pharmacy, [facility] 200 [facility] [place] [address] Pharmacist2, [facility] [address] [facility] [place] [address] 03/01/2023 10:30 AM EST Appointment Vascular Lab [facility], [address] [address] 03/01/2023 11:00 AM EST Appointment Vascular Lab [facility], [address] [address] 03/01/2023 12:00 PM EST Appointment Vascular Lab [facility], [address] [address] 03/01/2023 12:15 PM EST Office Visit Vascular Surg [facility], [address] [address] Willian Rosas MD [facility] [place] [address] 2023 3:00 PM EDT Office Visit Family Practice [facility] [address] [facility] [address] Jonny Donaldson MD [address] [facility] [place] [address] Scheduled Orders Name Type Priority Associated Diagnoses Orde r Schedule [facility] DUPLEX CAROTID BILAT Medical Imaging Routine Carotid [...] 11/15/1994 LUNG CANCER SCREENING - USE SMARTSET [id number] Completed 08/23/2022, 11/10/2020 Influenza Vaccine (FLU shot) Completed , 12/09/2021, 11/10/2020, Additional history exists GARDASIL-HPV IMMUNIZATION SERIES Aged Out No longer eligible based on patient's age to complete this topic MENINGOCOCCAL (MENACTRA/MENVEO) Aged Out No longer eligible based on patient's age to complete this topic documented as of this encounter Medical Devices Implanted Type Area Petrology Teacher Device Identifier Shelf Expiration Date Model / Serial / Lot Greater Than 80cm, 3mm-8mm Flora, Angiograft Pvd Saphenous Veins, Cryopreserved Implanted:Qty: 1 on 01/19/2023 by Willian Rosas MD at [place] [facility] Right: Leg Upper LIFENET 07/29/2026 CV>80 / [id number] / [id number] documented as of this encounter Visit [...] Advance Directives occurred with: Patient Care Teams Gold Letterer Relationship Specialty Start Date End Date Jonny Donaldson MD [address] [place] [address] PCP - General Family Medicine 05/27/14 documented as of this encounter
--- OUTSIDE RECORDS SUMMARY | 2023-03-02 22:36 | External Medical Summary ---
Author Name Unknown Address Unknown Organization K01:LABORATORY [facility] - [address] [place] [address] Laboratory Report Ordering Provider Test Date Status MYLES MONTANO 01/21/2023 06:49:00 Final Observation Date Value Abnormality Reference (Units ) Status WBC, Total 01/21/2023 06:49:00 7.92 4.00-10.80 (K/uL) Final RBC 01/21/2023 06:49:00 3.95 3.85-5.15 (M/uL) Final Hemoglobin 01/21/2023 06:49:00 10.2 Below low normal 12.0-15.3 (g/dL) Final HCT 01/21/2023 06:49:00 34.5 Below low normal 36.0-45.2 (%) Final MCV 01/21/2023 06:49:00 87.3 81.5-97.5 (fL) Final MCH 01/21/2023 06:49:00 25.8 27.0-34.0 (pg) Final MCHC 01/21/2023 06:49:00 29.6 32.0-36.0 (g/dL) Final RDW 01/21/2023 06:49:00 17.8 11.5-15.5 (%) Final Platelets 01/21/2023 06:49:00 193 140-400 (K/uL) Final MPV 01/21/2023 06:49:00 10.4 6.6-11.1 (fL) Final Nucleated erythrocytes/100 leukocytes [Ratio] in Blood by Automated count 01/21/2023 06:49:00 0 <=0 (/100 WBCs) Final Performing Location LAB[facility]ATORY [facility] - [address] [place] [address]
--- OUTSIDE RECORDS SUMMARY | 2023-03-02 22:36 | External Medical Summary | Summary of Care ---
Author Name Unknown Organization [facility] Address [address] [place] [address] Phone [phone] Care Team Providers Care Drill Runner Helper Name Role Phone Jonny Donaldson MD Primary Care Provider + Encounter Details Date Type Department Care Team (Latest Contact Info) Description 01/18/2023 5:45 PM EST - 01/18/2023 6:39 PM EST Hospital Encounter Radiology Film File [address] [place] [address] Arrived Discharge Disposition: Home - Self Care Allergies Active Allergy Reactions Criticality Noted Date Comments Cephalexin 01/28/1996 rash Doxepin 02/01/2018 Dust 04/04/2001 Nickel Anaphylaxis High 04/04/2001 Paroxetine 04/28/2003 generic only, brand ok Penicillins 03/03/1995 Rash Sulfa Antibiotics 11/27/1994 Rash documented as of this encounter (statuses as of 01/21/2023) Medications Medication Sig Dispensed Refills Start Date End Date Status ONETOUCH ULTRA SYSTEM W/DEVICE KITIndications:D M type 2, goal A1c below 7 Use up to four times a day as directed 1 0 0 Suspended Additional Information ONETOUCH ULTRASOFT LANCETS MISCIndications: DM type 2, goal A1c below 7 for testing blood sugar 4 times per day 250.42 1 [address] 3 Suspended Additional Information ASPIRIN EC 81 MG PO TBECIndications: Type II or unspecified type diabetes mellitus with renal manifestations, uncontrolled(250 .42) ([facility]) Take one pill daily 100 Tab 3 4 Suspended Additional Information fluticasone (FLONASE) 50 MCG/ACT nasal spray Administer 2 Sprays into each nostril 2 times a day. 18.2 mL 5 0 Suspended Additional Information OneTouch Ultra Blue In Vitro Strip (Glucose Blood)Indication s:Type 2 diabetes mellitus with hemoglobin A1c goal of less than 8.0% ([facility]) Use up to 3 times Daily E11.9 poorly controlled. 200 Strip 11 2 Suspended Additional Information BD Pen Needle Tanja U/F 32G X 4 MM (Insulin Pen Needle)Indicatio ns:Type 2 diabetes mellitus with hemoglobin A1c goal of less than 8.0% ([facility]) USE TO INJECT INSULIN 2-3 times per day 200 Each 3 2 Suspended Additional Information Ventolin HFA 108 (90 Base) MCG/ACT Inhalation Aerosol SolutionIndicati ons:Cough,Acute bronchitis, complicated Inhale 2 Puffs by mouth every 4 hours as needed for Cough or Wheezing. Strength: 108 (90 Base) MCG/ACT 18 g 5 3 Suspended Additional Information Rivaroxaban 2.5 MG Oral Tablet (Xarelto) Take 1 Tablet by mouth in the morning and 1 Tablet before bedtime. 2 Tablet 0 3 Suspended Metoprolol Succinate ER 25 MG Oral Tablet Extended Release 24 Hour (toPROL XL)Indications:H TN, goal below 130/80 Take 1 Tablet by mouth in the morning. 90 Tablet 3 3 Suspended Gabapentin 300 MG Oral Capsule (Neurontin)Indic ations:Leg cramping,Restles s legs syndrome 1 cap at lunch and 1 cap in evening by mouth for restless leg 60 Capsule 5 3 Suspended Additional Information rOPINIRole HCl 0.5 MG Oral Tablet (Requip)Indicati ons:RLS (restless legs syndrome) TAKE ONE TABLET BY MOUTH AT BEDTIME AND BEFORE naps 180 Tablet 3 3 Suspended Additional Information Sertraline HCl 50 MG Oral Tablet (Zoloft)Indicati ons:Generalized anxiety disorder TAKE TWO TABLETS BY MOUTH EVERY MORNING 180 Tablet 2 3 Suspended Additional Information traMADol HCl 50 MG Oral Tablet (Ultram)Indicati ons:Sciatica, unspecified laterality Take 1-2 Tablets by mouth every 6 hours as needed (pain). 60 Tablet 0 3 Suspended Additional Information Fluconazole 150 MG Oral Tablet (Diflucan) Take 1 Tablet by mouth once for 1 dose. 1 Tablet 0 3 01/22/20 23 Discontinued Victoza 18 MG/3ML Subcutaneous Solution Pen-injector (Liraglutide)Ind ications:Type 2 diabetes mellitus with hemoglobin A1c goal of less than 8.0% (HCC) INJECT 1.2 MG SUBCUTANEOUSLY DAILY IF FASTING SUGAR IS OVER 150 18 mL 0 3 Suspended Additional Information Magnesium Carbonate 250 MG/GM Oral Powder Take by mouth. 0 01/22/20 23 Discontinued Krill Oil 1000 MG Oral Capsule Take 1 Capsule by mouth in the morning. 0 Suspended Doxycycline Hyclate 100 MG Oral CapsuleIndicatio ns:Ulcer of toe of right foot, unspecified ulcer stage (HCC) Take 1 Capsule by mouth in the morning and 1 Capsule before bedtime. Do all this for 10 days. Until gone.. 20 Capsule 0 3 01/22/20 23 Discontinued Myrbetriq 50 MG Oral Tablet Extended Release 24 Hour (Mirabegron ER) Take 1 Tablet by mouth in the morning. 30 Tablet 11 3 Suspended Additional Information Estradiol 0.1 MG/GM Vaginal Cream (Estrace) Apply pea sized amount (0.5 gm) vaginally twice a week at bedtime 42.5 g 3 3 Suspended Additional Information Atorvastatin Calcium 80 MG Oral Tablet (Lipitor)Indicat ions:Dyslipidemi a, goal LDL below 100 TAKE ONE TABLET BY MOUTH EVERY DAY 90 Tablet 3 3 Suspended Additional Information metFORMIN HCl 850 MG Oral Tablet (Glucophage)Mirtha cations:Type 2 diabetes mellitus with hemoglobin A1c goal of less than 8.0% (HCC) TAKE ONE TABLET BY MOUTH THREE TIMES DAILY WITH MEALS FOR FOR DIABETES 270 Tablet 1 3 Suspended Additional Information Insulin Glargine Solostar 100 UNIT/ML Subcutaneous Solution Pen-injector (Basaglar KwikPen)Indicati ons:Type 2 diabetes mellitus with hemoglobin A1c goal of less than 8.0% (HCC) Inject 54 units once daily 60 mL 3 3 Suspended Additional Information NovoLOG FlexPen 100 UNIT/ML Subcutaneous Solution Pen-injector (insulin aspart)Indicatio ns:Type 2 diabetes mellitus with hemoglobin A1c goal of less than 8.0% (HCC) Inject 10 Units under the skin in the morning and 10 Units at noon and 10 Units in the evening. Inject with meals. 30 mL 3 3 Suspended Additional Information Amitriptyline HCl 50 MG Oral Tablet (Elavil)Indicati ons:Other chest pain,Neuralgia TAKE ONE TABLET BY MOUTH EVERY DAY 90 Tablet 1 3 Suspended Additional Information LORazepam 0.5 MG Oral Tablet (Ativan)Indicati ons:Anxiety state Take 1 Tablet by mouth every 8 hours as needed for Anxiety or Insomnia. 40 Tablet 0 3 Suspended Additional Information Jardiance 10 MG Oral Tablet (Empagliflozin)I ndications:Type 2 diabetes mellitus with hemoglobin A1c goal of less than 8.0% (HCC) TAKE 1 TABLET IN THE MORNING 90 Tablet 1 3 Suspended Additional Information documented as of this encounter (statuses as of 01/21/2023) Active Problems Problem Noted Date Diagnosed Date Acute lower limb ischemia 01/19/2023 Diabetic foot infection 01/19/2023 COPD, group A, by GOLD 2017 classification 01/09 Overview: Per COPD GOLD Classification Urge incontinence of urine 11/28/2022 S/P CABG x 3 06/01/2022 Overview: KUMAR to LAD, SVG to PL of LCx and PDA of the RCA 04/27/[address] Whyte [facility] Carpenter. History of nonmelanoma skin cancer 05/25/2022 Overview: [...] artery disease) 06/27/2013 Overview: 06/24/13 +CP-abnormal stress->cath @[facility]. 100% occlusion RCA with left- [...] Medical Center Episode June 2011 around 03/12/12 [place] [facility]-P175 SVT--sched for [place] EP study Routine general medical exam ination at a health care facility 11/11/2011 Overview: 01/18 Carotid US [place] stable 50-69 on left. 10/18 colonoscopy [facility] 3 3-[address] Juan Mak [facility] (11/19 06/14 Cologuard WNL. Cardiology-Jeffrey Campos [place]. 12/17 Carotid 50-69% left ICA stenosis. Vielka [...] PFT evidence of COPD ) 05/10 TTE @[place] Vwsxymvxua-[id number] EF, mild LVH, Gr1 Feldman Dys 07/09 colonoscopy [facility] [place]-3 & 6mm polyp--PAth--Tubular adenoma 07/09 [place] TSH & celiac testing WNL 04/11 ER visit [facility] SVT--resolved with adenosine. 03/11 EKG-scanned [...] as of this encounter (statuses as of 01/21/2023) Resolved Problems Problem Noted Date Diagnosed Date [...] as of this encounter (statuses as of 01/21/2023) Immunizations Name Administration Dates Next Due COVID-19 mRNA, LNP-s, No Pre serve, 2-Dose Series ([employer]) 01/24/2021,01/04/2021,06/03/2020 Hepatitis B, 20+ yrs 08/27/2009,03/30/2009,02/27 Pneumococcal [...] on file documented as of this encounter Plan of Treatment Upcoming Encounters Date Type Department Care Team (Late st Contact Info) Description 01/25/2023 9:30 AM EST Office Visit Vascular Surgery, [facility] [address] [facility] [place] [address] Robert Alejo MD [address] [facility] [place] [address] 02/08/2023 1:30 PM EST Office Visit Pharmacy, [facility] [place] [address] [place] [address] Pharmacist2, [facility] [address] [place] [address] 2023 3:00 PM EDT Office Visit Family [facility] [address] [place] [address] Jonny Donaldson MD [address] [place] [address] Health Maintenance Due Date Last Done Comments [...] 11/15/1994 LUNG CANCER SCREENING - USE SMARTSET [id number] Completed 08/23/2022, 11/10/2020 Influenza Vaccine (FLU shot) Completed , 12/09/2021, 11/10/2020, Additional history exists GARDASIL-HPV IMMUNIZATION SERIES Aged Out No longer eligible based on patient's age to complete this topic MENINGOCOCCAL (MENACTRA/MENVEO) Aged Out No longer eligible based on patient's age to complete this topic documented as of this encounter Medical Devices Implanted Type Area Rn Peritoneal Dialysis Device Identifier Shelf Expiration Date Model / Serial / Lot Greater Than 80cm, 3mm-8mm Flora, Angiograft Pvd Saphenous Veins, Cryopreserved Implanted:Qty: 1 on 01/19/2023 by Wililan Rosas MD at OR [facility] Right: Leg Upper LIFENET 07/29/2026 CV>80 / [id number] / [id number] documented as of this encounter Procedures Procedure Name Priority Date/Time Associated Diagnosis Comments RADIOLOGY EXAM - GENERAL RAD (IMAGES ONLY,NO REPORT) Routine 01/18/2023 5:45 PM EST documented in this encounter Results * RADIOLOGY EXAM - GENERAL RAD (IMAGES ONLY,NO REPORT) (01/18/2023 5:45 PM EST) 01/18/2023 5:41 PM EST Narrative Scheduling, Silent - 01/20/2023 12:48 PM EST This is an imaging study not interpreted or resulted by a [facility] or [employer] contracted radiologist. Jannette Walker MD RADIOLOGY (RAD GENER AL) documented in this encounter Advance Directives Latest Code Status on File Code Status Date Activated Date Inactivated Comments Full Code 01/19/2023 4:32 PM This orde r reflects the patients wishes and were consensually agreed upon. Question Answer Comments Discussion of Advance Directives occurred with: Patient Code Status History Code Status Date Activated Date Inactivated Comments Full Code 01/19/2023 12:14 AM 01/19/2023 4:32 PM Th is order reflects the patients wishes and were consensually agreed upon. Question Answer Comments Discussion of Advance Directives occurred with: Patient Care Teams Drill Runner Helper Relationship Specialty Start Date End Date Jonny Donaldson MD [address] [place] [address] PCP - General Family Medicine 05/27/14 documented as of this encounter
--- OUTSIDE RECORDS SUMMARY | 2023-03-02 22:36 | External Medical Summary | Summary of Care ---
Author Name Unknown Organization [facility] Address [address] [place] [address] Phone [phone] Care Team Providers Care Data Entry Email Processor Name Role Phone Jonny Donaldson MD Primary Care Provider + Encounter Details Date Type Department Care Team (Late st Contact Info) Description 01/18/2023 Orders Only [facility]) Emergency Department ([facility]) [address], [place] [id number] Jannette Walker MD [address] [place], [place] [id number] Allergies Active Allergy Reactions Criticality Noted Date Comments Cephalexin 01/28/1996 rash Doxepin 02/01/2018 Dust 04/04/2001 Nickel Anaphylaxis High 04/04/2001 Paroxetine 04/28/2003 generic only, brand ok Penicillins 03/03/1995 Rash Sulfa Antibiotics 11/27/1994 Rash documented as of this encounter (statuses as of 01/20/2023) Medications Medication Sig Dispensed Refills Start Date End Date Status ONETOUCH ULTRA SYSTEM W/DEVICE KITIndications:DM type 2, goal A1c below 7 Use up to four times a day as directed 1 0 06/10/2009 Suspended Additional Information ONETOUCH ULTRASOFT LANCETS MISCIndications:D M type 2, goal A1c below 7 for testing blood sugar 4 times per day 250.42 [address] 01/09/2013 Suspended Additional Information ASPIRIN EC 81 MG PO TBECIndications:T ype II or unspecified type diabetes mellitus with renal manifestations, uncontrolled(250. 42) ([facility]) Take one pill daily 100 Tab 3 01/28/2014 Suspended Additional Information fluticasone (FLONASE) 50 MCG/ACT nasal spray Administer 2 Sprays into each nostril 2 times a day. 18.2 mL 5 10/14/2019 Suspended Additional Information OneTouch Ultra Blue In Vitro Strip (Glucose Blood)Indications :Type 2 diabetes mellitus with hemoglobin A1c goal of less than 8.0% ([facility]) Use up to 3 times Daily E11.9 poorly controlled. 200 Strip 11 03/11/2021 Suspended Additional Information BD Pen Needle Tanja U/F 32G X 4 MM (Insulin Pen Needle)Indication s:Type 2 diabetes mellitus with hemoglobin A1c goal of less than 8.0% ([facility]) USE TO INJECT INSULIN 2-3 times per day 200 Each 3 06/30/2021 Suspended Additional Information Ventolin HFA 108 (90 Base) MCG/ACT Inhalation Aerosol SolutionIndicatio ns:Cough,Acute bronchitis, complicated Inhale 2 Puffs by mouth every 4 hours as needed for Cough or Wheezing. Strength: 108 (90 Base) MCG/ACT 18 g 5 04/11/2022 Suspended Additional Information Rivaroxaban 2.5 MG Oral Tablet (Xarelto) Take 1 Tablet by mouth in the morning and 1 Tablet before bedtime. 2 Tablet 0 06/01/2022 Suspended Metoprolol Succinate ER 25 MG Oral Tablet Extended Release 24 Hour (toPROL XL)Indications:HT N, goal below 130/80 Take 1 Tablet by mouth in the morning. 90 Tablet 3 06/01/2022 Suspended Gabapentin 300 MG Oral Capsule (Neurontin)Indica tions:Leg cramping,Restless legs syndrome 1 cap at lunch and 1 cap in evening by mouth for restless leg 60 Capsule 5 08/15/2022 Suspended Additional Information rOPINIRole HCl 0.5 MG Oral Tablet (Requip)Indicatio ns:RLS (restless legs syndrome) TAKE ONE TABLET BY MOUTH AT BEDTIME AND BEFORE naps 180 Tablet 3 09/28/2022 Suspended Additional Information Sertraline HCl 50 MG Oral Tablet (Zoloft)Indicatio ns:Generalized anxiety disorder TAKE TWO TABLETS BY MOUTH EVERY MORNING 180 Tablet 2 10/10/2022 Suspended Additional Information traMADol HCl 50 MG Oral Tablet (Ultram)Indicatio ns:Sciatica, unspecified laterality Take 1-2 Tablets by mouth every 6 hours as needed (pain). 60 Tablet 0 10/23/2022 Suspended Additional Information Victoza 18 MG/3ML Subcutaneous Solution Pen-injector (Liraglutide)Mirtha cations:Type 2 diabetes mellitus with hemoglobin A1c goal of less than 8.0% (HCC) INJECT 1.2 MG SUBCUTANEOUSLY DAILY IF FASTING SUGAR IS OVER 150 18 mL 0 11/24/2022 Suspended Additional Information Magnesium Carbonate 250 MG/GM Oral Powder Take by mouth. 0 Camille pended Krill Oil 1000 MG Oral Capsule Take 1 Capsule by mouth in the morning. 0 Suspended Myrbetriq 50 MG Oral Tablet Extended Release 24 Hour (Mirabegron ER) Take 1 Tablet by mouth in the morning. 30 Tablet 11 11/30/2022 Suspended Additional Information Estradiol 0.1 MG/GM Vaginal Cream (Estrace) Apply pea sized amount (0.5 gm) vaginally twice a week at bedtime 42.5 g 3 11/30/2022 Suspended Additional Information Atorvastatin Calcium 80 MG Oral Tablet (Lipitor)Indicati ons:Dyslipidemia, goal LDL below 100 TAKE ONE TABLET BY MOUTH EVERY DAY 90 Tablet 3 12/17/2022 Suspended Additional Information metFORMIN HCl 850 MG Oral Tablet (Glucophage)Indic ations:Type 2 diabetes mellitus with hemoglobin A1c goal of less than 8.0% (HCC) TAKE ONE TABLET BY MOUTH THREE TIMES DAILY WITH MEALS FOR FOR DIABETES 270 Tablet 1 12/17/2022 Suspended Additional Information Insulin Glargine Solostar 100 UNIT/ML Subcutaneous Solution Pen-injector (Basaglar KwikPen)Indicatio ns:Type 2 diabetes mellitus with hemoglobin A1c goal of less than 8.0% (HCC) Inject 54 units once daily 60 mL 3 12/30/2022 Suspended Additional Information NovoLOG FlexPen 100 UNIT/ML Subcutaneous Solution Pen-injector (insulin aspart)Indication s:Type 2 diabetes mellitus with hemoglobin A1c goal of less than 8.0% (HCC) Inject 10 Units under the skin in the morning and 10 Units at noon and 10 Units in the evening. Inject with meals. 30 mL 3 12/30/2022 Suspended Additional Information Amitriptyline HCl 50 MG Oral Tablet (Elavil)Indicatio ns:Other chest pain,Neuralgia TAKE ONE TABLET BY MOUTH EVERY DAY 90 Tablet 1 01/03/2023 Suspended Additional Information LORazepam 0.5 MG Oral Tablet (Ativan)Indicatio ns:Anxiety state Take 1 Tablet by mouth every 8 hours as needed for Anxiety or Insomnia. 40 Tablet 0 01/05/2023 Suspended Additional Information Jardiance 10 MG Oral Tablet (Empagliflozin)In dications:Type 2 diabetes mellitus with hemoglobin A1c goal of less than 8.0% ([facility]) TAKE 1 TABLET IN THE MORNING 90 Tablet 1 01/16/2023 Suspended Additional Information documented as of this encounter (statuses as of 01/20/2023) Active Problems Problem Noted Date Diagnosed Date Acute lower limb ischemia 01/19/2023 Diabetic foot infection 01/19/2023 COPD, group A, by GOLD 2017 classification 01/09 Overview: Per COPD GOLD Classification Urge incontinence of urine 11/28/2022 S/P CABG x 3 06/01/2022 Overview: KUMAR to LAD, SVG to PL of LCx and PDA of the RCA 04/27/[address] Whyte [facility]. History of nonmelanoma skin [...] artery disease) 06/27/2013 Overview: 06/24/13 +CP-abnormal stress->cath @[facility]. 100% occlusion RCA with left- right [...] 11/23/2011 Overview: 04/20/12 AV Ablation-Dr Jeffrey Campos, [facility] Episode June 2011 around 03/12/12 [place] [facility]-P175 SVT--sched for [place] EP study Routine general medical exam ination at a health care facility 11/11/2011 Overview: 01/18 Carotid US [place] stable 50-69 on left. 10/[address] [facility] 3 3-[address] Juan Mak [facility] (11/19 06/14 Cologuard WNL. Cardiology-Jeffrey Campos [place]. 12/17 Carotid 50-69% left ICA stenosis. Vielka [...] PFT evidence of COPD ) 05/10 TTE @[place] Kmiqyrpkwr-ntwr-harldq EF, mild LVH, Gr1 Feldman Dys 07/09 colonoscopy [facility] [place]-3 & 6mm polyp--PAth--Tubular adenoma 07/09 [place] TSH & celiac testing WNL 04/11 ER visit [facility] SVT--resolved with adenosine. 03/11 EKG-scanned QTc [...] as of this encounter (statuses as of 01/20/2023) Resolved Problems Problem Noted Date Diagnosed Date [...] as of this encounter (statuses as of 01/20/2023) Immunizations Name Administration Dates Next Due COVID-19 [...] 9:30 AM EST Office Visit Vascular Surgery, [facility] [address] [facility] [place] [address] Robert Alejo MD [address] [facility] [place] [address] 02/08/2023 1:30 PM EST Office Visit Pharmacy, [facility] [place] [address] [place] [address] Pharmacist2, [facility] [address] [place] [address] 2023 3:00 PM EDT Office Visit Family Practice [facility] [address] [place] [address] Jonny Donaldson MD [address] [place] [address] Health Maintenance Due Date Last Done Comments [...] PAST YEAR FOR COPD 01/20/2024 01/19/2023 GFR 01/21/2024 01/20/2023, 12/29, 01/19/2023, Additional history exists DTaP,Tdap,and Td Vaccines (3 - Td or Tdap) 04/27/2028 04/27/2018, 08/28/2008, 11/22/1994 Hepatitis C Screening Completed 06/18/2002 Hepatitis B Completed 08/27/2009, 02/0 02/2009, 02/27/2009 Zoster Vaccines Completed 08/21/2019, 04/27, 08/06/2015 Pneumococcal Vaccine: 65+ Years Completed 01/28/2022, 10/20/2020, 11/15/1994 LUNG CANCER SCREENING - USE SMARTSET [id number] Completed 08/23/2022, 11/10/2020 Influenza Vaccine (FLU shot) Completed , 12/09/2021, 11/10/2020, Additional history exists GARDASIL-HPV IMMUNIZATION SERIES Aged Out No longer eligible based on patient's age to complete this topic MENINGOCOCCAL (MENACTRA/MENVEO) Aged Out No longer eligible based on patient's age to complete this topic documented as of this encounter Medical Devices Implanted Type Area Plugger Worker Device Identifier Shelf Expiration Date Model / Serial / Lot Greater Than 80cm, 3mm-8mm Flora, Angiograft Pvd Saphenous Veins, Cryopreserved Implanted:Qty: 1 on 01/19/2023 by Willian Rosas MD at [facility] Right: Leg Upper LIFENET 07/29/2026 CV>80 / [id number] / [id number] documented as of this encounter Procedures [...] interpreted or resulted by a [facility] or [employer] contracted radiologist. Jannette Walker MD RADIOLOGY (RAD [...] Advance Directives occurred with: Patient Care Teams Data Entry Email Processor Relationship Specialty Start Date End Date Jonny Donaldson MD [address] [place] [address] PCP - General Family Medicine 05/27/14 documented as of this encounter
--- OUTSIDE RECORDS SUMMARY | 2023-03-02 22:36 | External Medical Summary ---
Author Name Unknown Address Unknown Organization : Laboratory Report Ordering Provider Test Date Status DEVENDRA SULTANA 01/21/2023 00:35:18 Final Observation Date Value Abnormality Reference (Units ) Status Glucose Point of Care 01/21/2023 00:35:18 376 Above high normal 70-120 (mg/dL) Final Performing Location
--- OUTSIDE RECORDS SUMMARY | 2023-03-02 22:36 | External Medical Summary | Summary of Care ---
Author Name Unknown Organization [facility] Address [address] [place] [address] Phone [phone] Care Team Providers Care Supervisor Production Department Name Role Phone Jonny Donaldson MD Primary Care Provider + Reason for Visit * Reason Onset Date Comments Advice 01/18/2023 Encounter Details Date Type Department Care Team (Late st Contact Info) Description 01/18/2023 Telephone Vascular Surg [facility] [address] [place], [place] [phone] Services, [facility] [address] [place] [address] Advice Allergies Active Allergy Reactions Criticality Noted [...] diabetes mellitus with renal manifestations, uncontrolled(250. 42) ([facility]) Take [...] of the RCA 04/27/[address] Whyte [facility]. History of nonmelanoma skin cancer 05/25/2022 [...] artery disease) 06/27/2013 Overview: 06/24/13 +CP-abnormal stress->cath @[facility]. 100% occlusion RCA with left- right [...] Medical Center Episode June 2011 around 03/12/12 [place] hosp-P175 SVT--sched for [place] EP study Routine general medical exam ination at a health care facility 11/11/2011 Overview: 01/18 Carotid US [place] stable 50-69 on left. 10/18 colonoscopy [facility] 3 3-[address] Juan Mak [facility] (11/19 06/14 Cologuard WNL. Cardiology-Jeffrey Campos [place]. 12/17 Carotid 50-69% left ICA stenosis. Vielka [...] PFT evidence of COPD ) 05/10 TTE @[place] Egzdttqwed-jzsb-euphpf EF, mild LVH, Gr1 Feldman Dys 07/09 colonoscopy [facility] [place]-3 & 6mm polyp--PAth--Tubular adenoma 07/09 [place] TSH & celiac testing WNL 04/11 ER visit [facility] SVT--resolved with adenosine. 03/11 EKG-scanned QTc 414 [...] on file documented as of this encounter Miscellaneous Notes * Telephone Encounter - Elver Gaona CRNP - 01/20/2023 7:25 AM EST Presented to [facility]. Was transferred to [facility], via [facility]. Underwent surgery 01/19/[address] Rosas: Procedure: Right common femoral artery to below [...] films and imaging related to the procedure Basilio moraes patient has currently scheduled for [facility] on 01/25/23. * Telephone Encounter - Sammi Leal LPN - 01/18/2023 2:34 PM EST Spoke with patient and she states that she does not have any open ulcers. She did hit her foot off of the fireplace and she did have one on her heel but it scabbed over. The one next to her little toe has scabbed over and the one on her right great toe scabbed over but now she has white around where the ulcer was. Her right great toe is purple and she states that there is a red streak that goes up to her ankle and her top of her foot is red and goes half way up her calf. I let her know that we recommend that she goes to the ED. She voiced understanding and still would like to be seen by us. She asked when she should go to the ED, I let her know that she should go now. She will get around and she will go to [facility]. She again insisted that she be scheduled with us. I offered her 01/20/23. Sammi Leal LPN 01/18/2023 2:38 PM * Telephone Encounter - Lianna East OSA - 01/18/2023 1:31 PM EST Pt calling in regarding her appt on 01/25. Pt is asking if she can be seen sooner than 01/25. Pt ishaving extreme pain and swollen on her right foot. PT stated her toe is also purple. Pt stated she does not want to go to the er and does not also want to lose her foot. Please advise Thank you PER Hicks documented in this encounter Plan of Treatment Upcoming Encounters Date Type Department Care Team (Late st Contact Info) Description 01/25/2023 9:30 AM EST Office Visit Vascular Surgery, [facility] [address] [facility] [place] [address] Robert Alejo MD [address] [facility] [place] [address] 02/08/2023 1:30 PM EST Office Visit Pharmacy, [facility] [place] [address] [place] [address] Pharmacist2, [facility] [address] [place] [address] 2023 3:00 PM EDT Office Visit Family [facility] [address] [place] [address] Jonny Donaldson MD [address] [place] [address] Health Maintenance Due Date Last Done Comments [...] 11/15/1994 LUNG CANCER SCREENING - USE SMARTSET 56558 Completed 08/23/2022, 11/10/2020 Influenza Vaccine (FLU shot) Completed , 12/09/2021, 11/10/2020, Additional history exists GARDASIL-HPV IMMUNIZATION SERIES Aged Out No longer eligible based on patient's age to complete this topic MENINGOCOCCAL (MENACTRA/MENVEO) Aged Out No longer eligible based on patient's age to complete this topic documented as of this encounter Medical Devices Implanted Type Area Wound Care Physician Device Identifier Shelf Expiration Date Model / Serial / Lot Greater Than 80cm, 3mm-8mm Flora, Angiograft Pvd Saphenous Veins, Cryopreserved Implanted:Qty: 1 on 01/19/2023 by Willian Rosas MD at [facility] Right: Leg Upper LIFENET 07/29/2026 CV>80 / [id number] / [id number] documented as of this encounter Advance [...] Advance Directives occurred with: Patient Care Teams Supervisor Production Department Relationship Specialty Start Date End Date Jonny Donaldson MD [address] [facility] [place] [address] PCP - General Family Medicine 05/27/14 documented as of this encounter
--- OUTSIDE RECORDS SUMMARY | 2023-03-02 22:36 | External Medical Summary ---
Author Name Unknown Address Unknown Organization [id number]:LAB[facility]ATORY [facility] [place] [address] [place] [address] Laboratory Report Ordering Provider Test Date Status KAYYLATEF 01/21/2023 06:49:00 Final Observation Date Value Abnormality Reference (Units ) Status Vancomycin, level 01/21/2023 06:49:00 15.6 10 .0-40.0 (ug/mL) Final Performing Location LABORATORY [facility] - [address] [place] [address]
--- OUTSIDE RECORDS SUMMARY | 2023-03-02 22:36 | External Medical Summary ---
Author Name Unknown Address Unknown Organization : Laboratory Report Ordering Provider Test Date Status DEVENDRA SULTANA 01/20/2023 17:29:05 Final Observation Date Value Abnormality Reference (Units ) Status Glucose Point of Care 01/20/2023 17:29:05 363 Above high normal 70-120 (mg/dL) Final Performing Location
--- OUTSIDE RECORDS SUMMARY | 2023-03-02 22:36 | External Medical Summary ---
Author Name Unknown Address Unknown Organization : Laboratory Report Ordering Provider Test Date Status DEVENDRA SULTANA 01/20/2023 11:47:31 Final Observation Date Value Abnormality Reference (Units ) Status Glucose Point of Care 01/20/2023 11:47:31 352 Above high normal 70-120 (mg/dL) Final Performing Location
--- OUTSIDE RECORDS SUMMARY | 2023-03-02 22:36 | External Medical Summary ---
Author Name Unknown Address Unknown Organization K01:LABORATORY [facility] [place] - [address] [place] [address] Laboratory Report Ordering Provider Test Date Status MALENA BLACK 01/20/2023 05:01:00 Final Observation Date Value Abnormality Reference (Units ) Status BUN 01/20/2023 05:01:00 12 6-20 (mg/dL) Final Creatinine 01/20/2023 05:01:00 0.7 0.5-1.0 (mg/dL) Final Glomerular filtration rate/1.73 sq M.predicted [Volume Rate/Area] in Serum, Plasma or Blood by Creatinine-based formula (CKD-EPI) 01/20/2023 05:01:00 >90 >=60 (mL/min) Final eGFR is calculated based on the CKD-EPI 2020 equation SODIUM 01/20/2023 05:01:00 131 Below low normal 135 -146 (mmol/L) Final Potassium 01/20/2023 05:01:00 4.4 3.5-5.1 (m mol/L) Final Cl 01/20/2023 05:01:00 98 98-107 (mm ol/L) Final CO2 01/20/2023 05:01:00 23 22-32 (mmo l/L) Final Anion gap 01/20/2023 05:01:00 10 7-15 (mmol /L) Final Glucose 01/20/2023 05:01:00 270 Above high normal 70 -120 (mg/dL) Final Calcium 01/20/2023 05:01:00 8.5 8.4-10.2 ( mg/dL) Final Performing Location LABORATORY [facility] - [address] [place] [address]
--- OUTSIDE RECORDS SUMMARY | 2023-03-02 22:36 | External Medical Summary ---
Author Name Unknown Address Unknown Organization : Laboratory Report Ordering Provider Test Date Status DEVENDRA SULTANA 01/20/2023 05:28:25 Final Observation Date Value Abnormality Reference (Units ) Status Glucose Point of Care 01/20/2023 05:28:25 247 Above high normal 70-120 (mg/dL) Final Performing Location
--- OUTSIDE RECORDS SUMMARY | 2023-03-02 22:36 | External Medical Summary | Summary of Care ---
Author Name Unknown Organization [facility] Address [address] [place] [address] Phone [phone] Care Team Providers Care Chemical Laboratory Scientist Name Role Phone Jonny Donaldson MD Primary Care Provider + Encounter Details Date Type Department Care Team (Latest Contact Info) Description 01/18/2023 6:40 PM EST - 01/18/2023 10:23 PM EST Hospital Encounter Radiology Film File [address] [place] [address] Arrived Discharge Disposition: Home - [...] diabetes mellitus with renal manifestations, uncontrolled(250 .42) ([facility]) Take one pill [...] 04/27/[address] [facility] [place]. History of nonmelanoma skin cancer 05/25/2022 Overview: [...] disease) 06/27/2013 Overview: 06/24/13 +CP-abnormal stress->cath @[facility]. 100% occlusion RCA with left- right [...] 11/23/2011 Overview: 04/20/12 AV Ablation-Dr Jeffrey Campos, [facility] Episode June 2011 around 03/12/12 [place] hosp-P175 SVT--sched for [place] EP study Routine general medical exam ination at a health care facility 11/11/2011 Overview: 01/18 Carotid US [place] stable 50-69 on left. 10/[address] [facility] 3 3-[address] Juan Mak [facility] (11/19 06/14 Cologuard WNL. Cardiology-Jeffrey Campos [place]. 12/17 Carotid 50-69% left ICA stenosis. Vielka [...] PFT evidence of COPD ) 05/10 TTE @[place] Nzupdbipbf-fwbd-ljlght EF, mild LVH, Gr1 Feldman Dys 07/09 colonoscopy [facility] [place]-3 & 6mm polyp--PAth--Tubular adenoma 07/09 [place] TSH & celiac testing WNL 04/11 ER [...] mRNA, LNP-s, No Pre serve, 2-Dose Series (Recurly) 01/24/2021,01/04/2021,06/03/2020 Hepatitis B, 20+ yrs 08/27/2009,03/30/2009,02/27 Pneumococcal [...] 9:30 AM EST Office Visit Vascular Surgery, [facility] [address] [place] [address] Robert Alejo MD [address] [facility] [place] [address] 02/08/2023 1:30 PM EST Office Visit Pharmacy, [facility] [place] [address] [place] [address] Pharmacist2, [facility] [address] [place] [address] 2023 3:00 PM EDT Office Visit Family [facility] [address] [place] [address] Jonny Donaldson MD [address] [place] [address] Health Maintenance Due Date Last Done Comments [...] 11/15/1994 LUNG CANCER SCREENING - USE SMARTSET 34253 Completed 08/23/2022, 11/10/2020 Influenza Vaccine (FLU shot) Completed , 12/09/2021, 11/10/2020, Additional history exists GARDASIL-HPV IMMUNIZATION SERIES Aged Out No longer eligible based on patient's age to complete this topic MENINGOCOCCAL (MENACTRA/MENVEO) Aged Out No longer eligible based on patient's age to complete this topic documented as of this encounter Medical Devices Implanted Type Area Manager Category Device Identifier Shelf Expiration Date Model / Serial / Lot Greater Than 80cm, 3mm-8mm Flora, Angiograft Pvd Saphenous Veins, Cryopreserved Implanted:Qty: 1 on 01/19/2023 by Willian Rosas MD at OR [facility] Right: Leg Upper LIFENET 07/29/2026 CV>80 / [id number] / [id number] documented as of this encounter Procedures Procedure Name Priority Date/Time Associated Diagnosis Comments RADIOLOGY EXAM - US (IMAGES ONLY, NO REPORT) Routine 01/18/2023 6:40 PM EST documented in this encounter Results * RADIOLOGY EXAM - US (IMAGES ONLY, NO REPORT) (01/18/2023 6:40 PM EST) 01/18/2023 6:38 PM EST Narrative Scheduling, Silent - 01/20/2023 12:46 PM EST This is an imaging study not interpreted or resulted by a [facility] or [facility] contracted radiologist. Jannette Walker MD RAD ULTRASOUND documented in this encounter Advance Directives Latest [...] Advance Directives occurred with: Patient Care Teams Chemical Laboratory Scientist Relationship Specialty Start Date End Date Jonny Donaldson MD [address] [place] [address] PCP - General Family Medicine 05/27/14 documented as of this encounter
--- OUTSIDE RECORDS SUMMARY | 2023-03-02 22:36 | External Medical Summary ---
Author Name Unknown Address Unknown Organization K01:LABORATORY [facility] [address] [place] [address] Laboratory Report Ordering Provider Test Date Status MYLES MONTANO 01/21/2023 06:49:00 Final Warfarin Therapy
INR: 2 .0-3.0 conventional anticoagulation
INR: 2.5- 3.5 high intensity anticoagulation Observation Date Value Abnormality Reference (Units ) Status PT 01/21/2023 06:49:00 13.0 11.6-15.2 (seconds) Final INR 01/21/2023 06:49:00 1.0 0.8-1.2 Final Performing Location LABORATORY [facility] [place] [address] [place] [address]
--- OUTSIDE RECORDS SUMMARY | 2023-03-02 22:36 | External Medical Summary | Summary of Care ---
Author Name Unknown Organization [facility] Address [address] [place] [address] Phone [phone] Care Team Providers Care Bootmaker Name Role Phone Jonny Donaldson MD Primary Care Provider + Encounter Details Date Type Department Care Team (Late st Contact Info) Description 01/18/2023 Orders Only [facility]) Emergency Department ([facility]) [address], [place] [phone] Jannette Walker MD [address] [place], [place] [phone] Allergies Active Allergy Reactions Criticality Noted Date [...] diabetes mellitus with renal manifestations, uncontrolled(250. 42) ([facility]) Take one pill daily 100 Tab 3 01/28/2014 Suspended Additional Information fluticasone (FLONASE) 50 MCG/ACT nasal spray Administer 2 Sprays into each nostril 2 times a day. 18.2 mL 5 10/14/2019 Suspended Additional Information OneTouch Ultra Blue In Vitro Strip (Glucose Blood)Indications :Type 2 diabetes mellitus with hemoglobin A1c goal of less than 8.0% ([facility]) Use up to 3 times Daily E11.9 poorly controlled. 200 Strip 11 03/11/2021 Suspended Additional Information BD Pen Needle Tanja U/F 32G X 4 MM (Insulin Pen Needle)Indication s:Type 2 diabetes mellitus with hemoglobin A1c goal of less than 8.0% ([facility]) USE TO INJECT INSULIN 2-3 times per [...] hemoglobin A1c goal of less than 8.0% ([facility]) TAKE 1 TABLET IN THE MORNING 90 [...] RCA 04/27/[address] Whyte [facility]. History of nonmelanoma skin cancer 05/25/2022 Overview: [...] artery disease) 06/27/2013 Overview: 06/24/13 +CP-abnormal stress->cath @[facility]. 100% occlusion RCA with left- right [...] Health Services Episode June 2011 around 03/12/12 [place] hosp-P175 SVT--sched for [place] EP study Routine general medical exam ination at a health care facility 11/11/2011 Overview: 01/18 Carotid US [place] stable 50-69 on left. 10/18 colonoscopy [facility] 3 3-[address] Juan Mak [facility] (11/19 06/14 Cologuard WNL. Cardiology-Jeffrey Campos [place]. 12/17 Carotid 50-69% left ICA stenosis. Vielka [...] PFT evidence of COPD ) 05/10 TTE @[place] Wxwmqsoqem-zpzs-pzhcaz EF, mild LVH, Gr1 Feldman Dys 07/09 colonoscopy [facility] [place]-3 & 6mm polyp--PAth--Tubular adenoma 07/09 [place] TSH & celiac testing WNL 04/11 ER [...] 9:30 AM EST Office Visit Vascular Surgery, [facility] [address] [facility] [place] [address] Robert Alejo MD [address] [facility] [place] [address] 02/08/2023 1:30 PM EST Office Visit Pharmacy, [facility] [place] [address] [place] [address] Pharmacist2, [facility] [address] [place] [address] 2023 3:00 PM EDT Office Visit Family Practice [facility] [address] [place] [address] Jonny Donaldson MD [address] [place] [address] Health Maintenance Due Date Last Done Comments [...] 11/15/1994 LUNG CANCER SCREENING - USE SMARTSET 30656 Completed 08/23/2022, 11/10/2020 Influenza Vaccine (FLU shot) Completed , 12/09/2021, 11/10/2020, Additional history exists GARDASIL-HPV IMMUNIZATION SERIES Aged Out No longer eligible based on patient's age to complete this topic MENINGOCOCCAL (MENACTRA/MENVEO) Aged Out No longer eligible based on patient's age to complete this topic documented as of this encounter Medical Devices Implanted Type Area Maintenance Mechanic [employer] Device Identifier Shelf Expiration Date Model / Serial / Lot Greater Than 80cm, 3mm-8mm Flora, Angiograft Pvd Saphenous Veins, Cryopreserved Implanted:Qty: 1 on 01/19/2023 by Willian Rosas MD at [place] [facility] Right: Leg Upper LIFENET 07/29/2026 CV>80 / [id number] / [id number] documented as of this encounter Procedures [...] study not interpreted or resulted by a [facility] or [facility] contracted radiologist. Jannette Walker MD RAD ULTRASOUND [...] Advance Directives occurred with: Patient Care Teams Bootmaker Relationship Specialty Start Date End Date Jonny Donaldson MD [address] [place] [address] PCP - General Family Medicine 05/27/14 documented as of this encounter
--- OUTSIDE RECORDS SUMMARY | 2023-03-02 22:36 | External Medical Summary | Summary of Care ---
Author Name Unknown Organization [facility] Address [address] [place] [address] Phone [phone] Care Team Providers Care Spinning Doffer Name Role Phone Jonny Donaldson MD Primary Care Provider + Reason for Visit * Reason Comments transfer of records [facility] enter Cellulitis Right foot * Auth/Cert Specialty Diagnoses / Procedures Referred By Contac t Referred To Contact Diagnoses ischemic right limb Referral ID Status Reason Start Date Expiration Date Visits Re quested Visits Authorized [id number] Encounter Details Date Type Department Care Team (Latest Contact Info) Description 01/18/2023 10:24 PM EST - 01/21/2023 2:11 PM EST Hospital Encounter [facility]AM 8, [facility] Advanced Medicine 8th Floor [address], [place] [id number] Ace Gonzalez, DO [facility] [place] [address] Jannette Walker MD [address] [place] [address] Christopher Owen MD [address] [place] [address] Debbi Broderick MD [address] [place] [address] Opal Ponce MD [address] [facility] [place] [address] Discharge Disposition: Home - Self Care Allergies Active Allergy Reactions Criticality Noted Date Comments Cephalexin 01/28/1996 rash Doxepin 02/01/2018 Dust 04/04/2001 Nickel Anaphylaxis High 04/04/2001 Paroxetine 04/28/2003 generic only, brand ok Penicillins 03/03/1995 Rash Sulfa Antibiotics 11/27/1994 Rash documented as of this encounter (statuses as of 01/22/2023) Medications Medication Sig Dispensed Refills Start Date End Date Status [place]on SpaceTOUCH ULTRA SYSTEM W/DEVICE KITIndications:D M type 2, goal A1c below 7 Use up to four times a day as directed 1 0 0 Active CLARED ULTRASOFT LANCETS MISCIndications: DM type 2, goal A1c below 7 for testing blood sugar 4 times per day 250.42 1 [address] 3 Active ASPIRIN EC 81 MG PO TBECIndications: Type II or unspecified type diabetes mellitus with renal manifestations, uncontrolled(250 .42) (HCC) Take one pill daily 100 Tab 3 4 Active fluticasone (FLONASE) 50 MCG/ACT nasal spray Administer 2 Sprays into each nostril 2 times a day. 18.2 mL 5 0 Active OneTouch Ultra Blue In Vitro Strip (Glucose Blood)Indication s:Type 2 diabetes mellitus with hemoglobin A1c goal of less than 8.0% (HCC) Use up to 3 times Daily E11.9 poorly controlled. 200 Strip 11 2 Active BD Pen Needle Tanja U/F 32G X 4 MM (Insulin Pen Needle)Indicatio ns:Type 2 diabetes mellitus with hemoglobin A1c goal of less than 8.0% (HCC) USE TO INJECT INSULIN 2-3 times per day 200 Each 3 2 Active Ventolin HFA 108 (90 Base) MCG/ACT Inhalation Aerosol SolutionIndicati ons:Cough,Acute bronchitis, complicated Inhale 2 Puffs by mouth every 4 hours as needed for Cough or Wheezing. Strength: 108 (90 Base) MCG/ACT 18 g 5 3 Active Rivaroxaban 2.5 MG Oral Tablet (Xarelto) Take 1 Tablet by mouth in the morning and 1 Tablet before bedtime. 2 Tablet 0 3 Active Metoprolol Succinate ER 25 MG Oral Tablet Extended Release 24 Hour (toPROL XL)Indications:H TN, goal below 130/80 Take 1 Tablet by mouth in the morning. 90 Tablet 3 3 Active Gabapentin 300 MG Oral Capsule (Neurontin)Indic ations:Leg cramping,Restles s legs syndrome 1 cap at lunch and 1 cap in evening by mouth for restless leg 60 Capsule 5 3 Active rOPINIRole HCl 0.5 MG Oral Tablet (Requip)Indicati ons:RLS (restless legs syndrome) TAKE ONE TABLET BY MOUTH AT BEDTIME AND BEFORE naps 180 Tablet 3 3 Active Sertraline HCl 50 MG Oral Tablet (Zoloft)Indicati ons:Generalized anxiety disorder TAKE TWO TABLETS BY MOUTH EVERY MORNING 180 Tablet 2 3 Active traMADol HCl 50 MG Oral Tablet (Ultram)Indicati ons:Sciatica, unspecified laterality Take 1-2 Tablets by mouth every 6 hours as needed (pain). 60 Tablet 0 3 Active Victoza 18 MG/3ML Subcutaneous Solution Pen-injector (Liraglutide)Ind ications:Type 2 diabetes mellitus with hemoglobin A1c goal of less than 8.0% ([facility]) INJECT 1.2 MG SUBCUTANEOUSLY DAILY IF FASTING SUGAR IS OVER 150 18 mL 0 3 Active Krill Oil 1000 MG Oral Capsule Take 1 Capsule by mouth in the morning. 0 Active Myrbetriq 50 MG Oral Tablet Extended Release 24 Hour (Mirabegron ER) Take 1 Tablet by mouth in the morning. 30 Tablet 11 3 Active Estradiol 0.1 MG/GM Vaginal Cream (Estrace) Apply pea sized amount (0.5 gm) vaginally twice a week at bedtime 42.5 g 3 3 Active Atorvastatin Calcium 80 MG Oral Tablet (Lipitor)Indicat ions:Dyslipidemi a, goal LDL below 100 TAKE ONE TABLET BY MOUTH EVERY DAY 90 Tablet 3 3 Active metFORMIN HCl 850 MG Oral Tablet (Glucophage)Mirtha cations:Type 2 diabetes mellitus with hemoglobin A1c goal of less than 8.0% (HCC) TAKE ONE TABLET BY MOUTH THREE TIMES DAILY WITH MEALS FOR FOR DIABETES 270 Tablet 1 3 Active Insulin Glargine Solostar 100 UNIT/ML Subcutaneous Solution Pen-injector (Basaglar KwikPen)Indicati ons:Type 2 diabetes mellitus with hemoglobin A1c goal of less than 8.0% (HCC) Inject 54 units once daily 60 mL 3 3 Active NovoLOG FlexPen 100 UNIT/ML Subcutaneous Solution Pen-injector (insulin aspart)Indicatio ns:Type 2 diabetes mellitus with hemoglobin A1c goal of less than 8.0% (HCC) Inject 10 Units under the skin in the morning and 10 Units at noon and 10 Units in the evening. Inject with meals. 30 mL 3 3 Active Amitriptyline HCl 50 MG Oral Tablet (Elavil)Indicati ons:Other chest pain,Neuralgia TAKE ONE TABLET BY MOUTH EVERY DAY 90 Tablet 1 3 Active LORazepam 0.5 MG Oral Tablet (Ativan)Indicati ons:Anxiety state Take 1 Tablet by mouth every 8 hours as needed for Anxiety or Insomnia. 40 Tablet 0 3 Active Jardiance 10 MG Oral Tablet (Empagliflozin)I ndications:Type 2 diabetes mellitus with hemoglobin A1c goal of less than 8.0% (HCC) TAKE 1 TABLET IN THE MORNING 90 Tablet 1 3 Active Doxycycline Hyclate 100 MG Oral Capsule Take 1 Capsule by mouth in the morning and 1 Capsule before bedtime. Do all this for 12 days. 24 Capsule 0 3 02/03/20 23 Active Cefuroxime Axetil 500 MG Oral Tablet (Ceftin) Take 1 Tablet by mouth in the morning and 1 Tablet before bedtime. Do all this for 12 days. 24 Tablet 0 3 02/03/20 23 Active Fluconazole 150 MG Oral Tablet (Diflucan) Take 1 Tablet by mouth once for 1 dose. 1 Tablet 0 3 01/22/20 23 Discontinued Magnesium Carbonate 250 MG/GM Oral Powder Take by mouth. 0 01/22/20 23 Discontinued Doxycycline Hyclate 100 MG Oral CapsuleIndicatio ns:Ulcer of toe of right foot, unspecified ulcer stage (HCC) Take 1 Capsule by mouth in the morning and 1 Capsule before bedtime. Do all this for 10 days. Until gone.. 20 Capsule 0 3 01/22/20 23 Discontinued documented as of this encounter (statuses as of 01/22/2023) Active Problems Problem Noted Date Diagnosed Date Acute lower limb ischemia 01/19/2023 Diabetic foot infection 01/19/2023 COPD, group A, by GOLD 2017 classification 01/09 Overview: Per COPD GOLD Classification Urge incontinence of urine 11/28/2022 S/P CABG x 3 06/01/2022 Overview: KUMAR to LAD, SVG to PL of LCx and PDA of the RCA 04/27/[address]te [facility]. History of nonmelanoma skin cancer 05/25/2022 [...] artery disease) 06/27/2013 Overview: 06/24/13 +CP-abnormal stress->cath @[facility]. 100% occlusion RCA with left- right [...] Health Unit Episode June 2011 around 03/12/12 [facility]-P175 SVT--sched for [facility] EP study Routine general medical exam ination at a health care facility 11/11/2011 Overview: 01/18 Carotid US [facility] stable 50-69 on left. 10/18 colonoscopy [facility] 3 3-[address] Juan Mak [facility] (11/19 06/14 Cologuard WNL. Cardiology-Jeffrey Campos [facility]. 12/17 Carotid 50-69% left ICA stenosis. Vielka [...] PFT evidence of COPD ) 05/10 TTE @[facility] Lziyafaewf-rfiw-qtqsqp EF, mild LVH, Gr1 Feldman Dys 07/09 colonoscopy [facility]-3 & 6mm polyp--PAth--Tubular adenoma 07/09 [facility] TSH & celiac testing WNL 04/11 ER visit [facility] SVT--resolved with adenosine. 03/11 EKG-scanned QTc 414 12/08 Stress echo-normal except small calc. On aortic valve and Gr I feldman dysfxn 05/08 mammo WNL 08/07 scope 2 polyp viekla 3Y S/P LAURIE 2001-PFTs WNL HTN, goal [...] as of this encounter (statuses as of 01/22/2023) Resolved Problems Problem Noted Date Diagnosed Date [...] as of this encounter (statuses as of 01/22/2023) Immunizations Name Administration Dates Next Due COVID-19 mRNA, LNP-s, No Pre serve, 2-Dose Series ([employer]) 01/24/2021,01/04/2021,06/03/2020 Hepatitis B, 20+ yrs 08/27/2009,03/30/2009,02/27 Pneumococcal [...] Sign Reading Time Taken Comments Blood Pressure 131/64 01/21/2023 7:53 AM EST Pulse 85 01/21/2023 7:53 AM EST Temperature 37.2 C (98.9 F) 01/21/2023 7:53 AM ES T Respiratory Rate 20 01/21/2023 7:53 AM EST Oxygen Saturation 93% 01/21/2023 2:07 AM EST Inhaled Oxygen Concentration - - Weight 112 kg (246 lb 14.6 oz) 01/21/2023 8:00 A M EST Height 180.3 cm (5' 11") 01/19/2023 12:56 AM EST Body Mass Index 34.44 01/19/2023 12:56 AM EST documented in this [...] No 01/19/2023 documented as of this encounter Discharge Summaries * Opal Ponce MD - 01/21/2023 11:09 AM EST [address] [address] Admission Date: 01/18/2023 Discharge Date: 01/21/2023 RECOMMENDED TO DO FOR NEXT PROVIDER(S): DO NOT remove Prevena, follow up with vascular surgery and they will remove it F/U for robust blood sugar control REASON(S) FOR MEDICATION CHANGE(S): -Antibiotics 2 weeks post op for LE SSTI DISPOSITION ON DISCHARGE: home Active Hospital Problems Diagnosis *Principal Diagnosis - Acute lower limb ischemia Diabetic foot infection COPD, group A, by GOLD 2017 classification ([facility]) PAD (peripheral artery disease) ([facility]) Diabetic retinopathy, nonproliferative, moderate ([facility]) CAD (coronary artery disease) Heart failure, systolic, due to CAD Type 2 diabetes mellitus with hemoglobin A1c goal of less than 8.0% ([facility]) Type 2 diabetes mellitus with diabetic nephropathy ([facility]) Dyslipidemia, goal LDL below 100 GENERALIZED ANXIETY DIS Resolved Hospital Problems No resolved problems to display. ADMISSION HISTORY & PHYSICAL EXAM (focused): Mariia Liao is a 67 YO F with PMH of DM2, HFrEF, CAD, S/p CABG and stroke intra-op, COPD, anxiety, DLD, tobacco use (quit November 2021), nonmelanoma skin cancer, urge incontinence. Per chart review and per patient, she ihas been seeing podiatry for nonhealing wound on her right big toe. She has an at home nurse that comes weekly. Over the past 2 days, the patient has been experiencing significantly more pain in her RLE also with redness and warmth. Patient states that she hada scheduled appointment with vascular but messaged yesterday to have appointment moved to Monday asshe was concerned about RLE. Home nurse was also concerned and noted absent pulses therefore ultimately patient was recommended to be evaluated at ED. Once at [facility] she underwent US which was concerning for ischemic RLE. Ultimately patient was transferred to [facility] for further workup and management. Patient is not aware of any occlusions in the past. She notes that she has had vascular sonograms in the past - believes her last was about 5 years ago. Notes that she is unsure of results at that time but notes that her current mud jack nozzleman was going to recommend vascular evaluation given concern for nonhealing foot ulcer. Per chart review, she was last seen in vascular clinic at [facility] in 2019 for leg claudication and was to f/u in 1 year with RANJITH and carotid duplex however these were never completed. At time of admission, patient denies KIM, dizziness, chest pain, SOB, abdominal pain, N/V. She does struggle with urge incontinence but denies dysuria and hematuria. She endorses regular bowel habits,last BM 2 days ago. She denies melena and hematochezia. Patient notes that in April when she underwent CABG, she had a stroke intra-op and since then has been scared to walk freely on her own. At home she is getting around with a walker but she is nervousto go out anywhere Constitutional: no acute distress HEENT: normal: normocephalic, atraumatic; no masses, tenderness, or adenopathy CV: distant heart sounds, normal rate, normal rhythm, no gallop, no rub, (+) vertical incision oversternum 2/2 CABG , (+) murmur Chest: normal respiratory effort, lungs clear to auscultation and percussion Abdomen: normal: soft, bowel sounds normal, no masses, tenderness or organomegaly Musculoskeletal: (-) negative Extremities: (+) bilateral LE with edema, right LE with open wound on lateral aspect of great toe. See pictures below Skin: warm, (+) LE skin taunt, erythematous and warm : Neuro: alert, oriented to person, place, and time, normal mental status exam, reflexes normal and symmetric, sensory normal Psych: normal mood and affect, nonsuicidal, judgement normal, memory normal HOSPITAL COURSE (focused): This is a 67-year-old female , morbidly obese, with history of uncontrolled IDDM type 2, CAD s/p CABG, chronic diastolic heart failure and PAD , who presented on 01/19/2023 with acute onset of leg pain concerning for limb ischemia s/p right femoral endarterectomy and kzqhr-umg-wyfx popliteal yfythe9801/19/2023. Limb ischemia s/p right femoral endarterectomy and tbibm-okp-ugzl popliteal bypass 01/19/2023 LE SSTI S/p meropenem and vancomycin Blood cultures NGTD Ambulating safely with the staff. -doxycycline 100 mg BID and cefuroxime 500 mg BID (discussed with pharmacy and ID, linezolid not safe given interactions with multiple home medications) -will do antibiotics until 02/02/23 to complete 2 weeks postop, per vascular surgery -ongoing gentle compression from the toes to the level just below the knee -groin wound care with daily dry gauze dressing over the groin incision once the Prevena is removed. -rivaroxaban 2.5 mg twice a day -follow up with vascular surgeyr outpatient IDDM type II (A1c 11.7%) Peripheral neuropathy -Insulin sliding scale, glargine 50U, metformin 850 mg 3 times a day, Liraglutide weekly and empagliflozin 10 mg daily -Continue gabapentin 300 mg 3 times a day CAD s/p CABG HFpEF (EF 55% 2020) Echo 2020 with EF 55-60% and Grade I diastolic dysfunction -metoprolol succinate 25 mg daily -aspirin 81 mg and atorvastatin 80 mg daily Chronic medical conditions RLS: Continue amitriptyline 50 mg daily and ropinirole 0.5 mg at bedtime Depression: Continue sertraline 50 mg daily DISCHARGE EXAM CV: normal rate and rhythm Chest: normal respiratory effort, lungs clear to auscultation B/L Abdomen: soft, no tenderness, normal bowel sounds Extremities: Leg wrapped and dressing Neuro: alert Operations & Procedures: right femoral endarterectomy and bcvjq-rss-iipz popliteal bypass 01/19/2023 Complications: none significant Significant Lab and Imaging Results: As mentioned above MEDICATION UPDATES AT DISCHARGE START taking these medications INSTRUCTIONS Cefuroxime 500 [...] day as directed OneTouch UltraSoft Lancets [facility] [place] [...] these medications Magnesium Carbonate 250 MG/GM Powd SCHEDULED FOLLOW-UP: Future Appointments Appt Date/Time Provider Department 01/25/2023 9:30 AM Robert Alejo MD Vascular Surgery, [facility] 02/08/2023 1:30 PM Pharmacist2, [facility], [facility] 2023 3:00 PM Jonny Donaldson MD Family Practice [facility] Other Information Indwelling Devices: LINES ALL Duration Peripheral Line Left Wrist 20 Gauge 2 days Peripheral Line Right Wrist 18 Gauge 2 days Vital Signs (last recorded): Most Recent Systolic BP: 131 mmHg (01/21/23 075) Most Recent Diastolic BP: 64 mmHg (01/21/23 075) Pulse: 85 (01/21/23 075) Resp: 20 (01/21/23 075) Most Recent Temperature: 37.17 C (01/21/23 0753) Weight: 112 kg (246 lb 14.6 oz) (01/21/23 0800) SpO2: 93 % (01/21/23 0207) O2 flow rate: 4 L/MIN (01/21/23 0207) Allergies: Nickel, Cephalexin, Doxepin, Dust, Paroxetine, Penicillins, and Sulfa antibiotics Activity: as tolerated Diet: diabetic diet Code status (this admission): Full Code Discussion of adv directives occurred with - adult: Patient Condition on Discharge: stable Isolation status: None Cognition: normal HOSPITAL CONSULTS ORDERED: VASCULAR SURGERY CONSULT IP ADULT PHYSICAL THERAPY CONSULT IP ADULT OCCUPATIONAL THERAPY CONSULT IP INFECTIOUS DISEASE CONSULT IP ADULT PHYSICAL THERAPY CONSULT IP ADULT OCCUPATIONAL THERAPY CONSULT IP REFERRING PHYSICIAN: Ref: MEAGHAN YANEZ[[id number]] [address] [facility], [place] [address] (office) [phone] (fax) PRIMARY CARE PROVIDER: PCP: Jonny Donaldson MD [address] / [place] [address] (office) [phone] (fax) Note: To contact a physician responsible for this patients hospital care, please call [facility] [phone]. I spent a total of 60 minutes coordinating, documenting, and providing care for this patient excluding time spent in the performance of separately billed services. documented in this encounter Discharge Instructions * Discharge Instr - AVS* Opal Ponce MD - 01/21/2023 9:55 AM EST VASCULAR SURGERY DISCHARGE INSTRUCTIONS You may call Willian Rosas MD of the department of Vascular Surgery at the [facility] office in [place] at [phone] option 2. After business hours, you may call with emergency questions to [phone] and ask that the on-call Vascular Surgery provider be paged. The information below provides you with the instructions and the list of medications you need to betaking following discharge from the hospital. If you have any questions, please ask before leaving.Please carry this letter with you when you see your doctor in the clinic. If you have questions, you can reach us at the numbers above. Your primary diagnosis at discharge was right lower extremity ischemia. Your doctors during this hospitalization included: Willian Rosas MD POST-OP INSTRUCTIONS: Post Open Vascular Surgery Incision Care: Remove any dressing(s) in 24 hours. The incision(s) may be sealed with valarie, sutures, or coveredwith white adhesive tapes known as steri-strips. Either way, there is no need to cover up the incision(s) again with gauze unless there is drainage.You should clean your leg with mild soap and water daily. Leg Swelling: A certain amount of swelling is expected and can be improved with elevation of the leg most times of the day when you are sitting or lying. The idea is to elevate your leg on 2-3 pillows while lying flat for at least 1 hour at least 3 times per day. Should you notice significant swelling that does not improve with leg elevation, please call your vascular surgeon's office. Shower: You may shower (no tub baths) after 24 hours and get the incision(s) or steri- strips wet with soapywater and gently pat them dry. If the steri-strips come off in the shower, do not become concerned.If they are still in place 10 day after surgery, you may remove them. Disposable negative pressure dressing (Prevena) has been applied to your surgical incision. This incision management system consists of a sponge dressing, held in place with clear adhesive tape, thatis connected to a battery- powered therapy unit. Please leave this dressing in place and connected to the therapy unit device for five (5) days. You can shower with this device without disconnecting it but please avoid direct spray on the sponge and the therapy unit. Also, avoid soaking in water or prolonged water contact. It is best to leave this dressing in place for 5 days or until your next office visit on 01/25/23. If you do not have an office visit with vascular surgery within the next five days and you are unable to remove the special dressing at home, please call our office to make an appointment. If your device starts beeping, please remove the sponge dressing by disconnecting it from the battery-powered therapy unit and peeling off the clear adhesive tape. If bleeding develops, please seek immediate emergency medical attention. If you experience fevers, and/or increased soreness, redness, swelling, itching, warmth, or if there is pus or a bad odor; call your vascular surgeon right away as your incision may have become infected. -After Prevena is removed in clinic on 01/25/23, please guaze at the incision site at least 2X a day Driving: Do not drive for 2 to 4 weeks and until you are walking normally. You should not drive if you are on narcotics. Diet: You should eat a heart healthy low-fat diet. If your throat is sore, try eating soft foods. If you were given nutritional supplements prior to surgery, please finish the Impact AR three timesper day with meals. Activity: Do not do any heavy lifting (more than 5-10 pounds) or vigorous exercise for at least 4 weeks. Invasive Procedures: Any invasive procedure, such as dental work, endoscopy, colonoscopy, cystoscopy, etc. should be avoided in the first 3 months following surgery. If an urgent invasive procedure is required in the first 3 months following surgery, you should receive prophylactic antibiotics to prevent arterial graftinfections. The [place] endocarditis prophylaxis regimen may be used for this purpose. Return to Work: You should wait 2-4 weeks to go back to work. Please call our office at the number listed above if you need any paperwork completed. When to Call Your Surgeon: Persistent fever over 101.2 degrees Fahrenheit (39 degrees Celsius) Pain that is not relieved by your medication Persistent nausea or vomiting Persistent cough or shortness of breath Purulent drainage (pus) or bleeding from any incision Redness surrounding any of your incisions, that is worsening or getting bigger If you are unable to eat or drink liquids In Case of Emergency: Your surgeon is available 24 hours a day. You may call our office at the phone number listed above,go to your nearest Emergency Department, or dial 911. See your primary care physician (Jonny Donaldson MD) in 2 weeks. You have an appointment in vascular clinic on 01/25/23. You will then be scheduled for a 1 month follow up. For routine questions, your [facility] Vascular Surgery Team prefers the use of [employer]. [employer] is an online internet tool to help you meet your health care needs quickly by providing a secure, confidential way to view your health records and communicate with your [facility] Vascular SurgeryTeam. To sign up for [employer] go to [email or web address], "Click" [place] Now on the right side o f the screen and complete the user registration information. Antibiotics: complete full course of antibiotics and follow instructions on bottle Discharge Date: 01/21/23 The information below provides you with the instructions and the list of medications you need to betaking following discharge from the hospital. If you have any questions, please ask before leaving. If you have questions after leaving, you can reach us at the numbers below. YOUR HOSPITAL PROVIDERS: Discharging Provider: Opal Ponce MD Provider Department: Hospital Medicine To reach this Provider Monday through Monday (8:00 AM to 4:30 PM) for any questions or test results: Call [phone] For after-hours concerns: Call [phone] and have your provider paged, or the provider radar air traffic controller for the Department of Hospital Medicine paged. Please note, the discharging provider will not be able to provide you with any medications refills.Please discuss these with your primary care provider. Worsening Symptoms: If you have new symptoms, or your symptoms get worse, please contact your Discharge Provider or Primary Care Provider (PCP). If these providers are not available, you can go to your local [facility] or Urgent Care Clinic during their business hours. In an EMERGENCY situation: Call [phone] or go to the nearest emergency room. A BRIEF SUMMARY OF YOUR HOSPITAL STAY: You came to the hospital with: complaint of worsening leg pain Your main diagnosis at discharge was: Concern for loss of blood supply and infection Operations & Procedures performed: right femoral endarterectomy and [id number]-[id number] popliteal bypass 01/19/2023 Complications: none significant Inpatient test results that are pending at discharge: none Advance Directive Documented: Advance Directive Does the Patient have an Advance Directive? No YOUR FOLLOW UP APPOINTMENTS: Primary Care Provider Information: PCP: Jonny Donaldson MD [address] [place] [address] / [place] [id number] (office) [phone] (fax) INSTRUCTIONS: Diet: Normal diet Activity: As tolerated Additional Instructions: -DO NOT remove Prevena, follow up with vascular surgery and they will remove it -Do NOT take magnesium supplements until you have completed your antibiotics -Please call your PCP within 1-2 days to make an appointment -Please take antibiotics until 02/02/23 documented in this encounter Progress Notes * Mukund Ventura, Stoney Patrick, [facility] - 01/21/2023 10:25 AM EST PHARMACY PHARMACOKINETIC CONSULT [address] [address] Name: Mariia Liao Location: [facility] H871/A Date: 01/21/2023 Time: 10:25 AM Requesting service: Medicine Admit 2 Bacteria being treated: empiric Source of infection: cellulitis Medication(s) being managed: Vancomycin Pharmacokinetic calculations will be performed utilizing InterviewBest software. Lab information: Lab Results Component Value Date/Time WBC 7.92 01/21/2023 06:49 AM WBC 9.47 01/20/2023 05:01 AM WBC 9.40 01/19/2023 04:44 PM WBC 8.13 01/19/2023 04:58 AM WBC 9.84 01/19/2023 12:28 AM WBC 10.34 11/01/2012 10:00 AM WBC 10.13 06/15/2012 02:07 PM WBC 10.10 08/26/2009 12:08 PM WBC 11.18 (H) 02/22/2008 12:53 PM WBC 10.32 01/23/2008 08:02 AM Lab Results Component Value Date/Time BUN 12 01/21/2023 06:49 AM BUN 12 01/20/2023 05:01 AM BUN 12 01/19/2023 04:44 PM BUN 13 01/19/2023 04:58 AM BUN 15 01/18/2023 11:02 PM BUN 19 11/21/2019 08:37 AM BUN 16 12/12/2017 12:00 AM BUN 11 06/13/2013 01:11 PM BUN 9 05/17/2012 08:15 AM BUN 8 05/12/2011 08:00 AM BUN 11 11/05/2009 08:13 AM BUN 11 12/06/1995 09:55 AM Lab Results Component Value Date/Time CREAT 0.8 01/21/2023 06:49 AM CREAT 0.7 01/20/2023 05:01 AM CREAT 0.7 01/19/2023 04:44 PM CREAT 0.9 01/19/2023 04:58 AM CREAT 0.9 01/18/2023 11:02 PM CREAT 0.9 11/21/2019 08:37 AM CREAT 0.9 10/07/2019 10:02 AM CREAT 0.77 08/15/2019 12:00 AM CREAT 0.74 06/14/2018 12:00 AM CREAT 0.68 12/12/2017 12:00 AM CREAT 0.71 10/10/2017 12:00 AM CREAT 0.75 06/23/2017 12:00 AM CREAT 0.6 06/13/2013 01:11 PM CREAT 0.5 06/07/2013 07:43 AM CREAT 0.5 05/17/2012 08:15 AM ANTIMICROBIALS GIVEN (last 28 hours) Date/Time Action Medication Dose Rate 01/21/23 0537 New Bag Meropenem (Merrem) 500 mg in 50 ml ivpb three hour infusion 500 mg 16.67 mL/hr 01/21/23 0044 New Bag Vancomycin (Vancocin) 1000 mg in NSS 250 mL ivpb LOCKED DOSE 1,000 mg 275 mL/hr 01/21/23 0044 New Bag Meropenem (Merrem) 500 mg in 50 ml ivpb three hour infusion 500 mg 16.67 mL/hr 01/20/23 1756 New Bag Meropenem (Merrem) 500 mg in 50 ml ivpb three hour infusion 500 mg 16.67 mL/hr 01/20/23 1236 New Bag Vancomycin (Vancocin) 1000 mg in NSS 250 mL ivpb LOCKED DOSE 1,000 mg 275 mL/hr 01/20/23 1222 New Bag Meropenem (Merrem) 500 mg in 50 ml ivpb three hour infusion 500 mg 16.67 mL/hr Wt Readings from Last 1 Encounters: 01/21/23 112 kg (246 lb 14.6 oz) Levels to date: Lab Results Component Value Date/Time VANCORANDOM 15.6 01/21/2023 06:49 AM Impression: Mariia Liao is a/an 67 year old female receiving vancomycin therapy. The pharmacokinetic target for therapy is AUC24,SS (range) 400-600mg/L.hr Assessment and Plan: Ob Hospitalist Group Pharmacokinetics Note Drug: Vancomycin Pharmacokinetic target: AUC24 (range) 400-600 mg/L.hr Current regimen: 1000 mg IV every 12 hours Mariia Liao is a(n) 67 years old female receiving Vancomycin 1000 mg IV every 12 hours for [PLEASE ADD INDICATION] Recent measured serum creatinine values: 01/21/2023 06:49 0.8 mg/dL 01/20/2023 05:01 0.7 mg/dL 01/19/2023 16:44 0.7 mg/dL Assessment: Analysis of the most recent level(s) using [employer] gives the following patient-specific pharmacokinetic parameters: CL: 4.23 L/hr V: 75.6 L T1/2: 12.6 hours Using these values, the current regimen of Vancomycin 1000 mg IV every 12 hours is predicted to result in a steady-state trough of 13.9 mg/L and AUC24 of 456 mg/L.hr. At this time we recommend a regimen of 1 gram q 12 hours due to risk of toxicity high for simple cellulitis Recommendations: - Vancomycin 1000 mg IV every 12 hours - Obtain Vancomycin level in 72 hours - Continue to monitor serum creatinine Pharmacy will continue to follow and dose as appropriate by renal function, culture results, infectious disease input, and overall clinical status. Contact the Pharmacy at extension [phone] if there are any questions. * Opal Ponce MD - 01/20/2023 1:57 PM EST Images from the original note were not included. [facility] H871/A INTERVAL HISTORY: The patient reports improved pain. She denies dizziness or shortness a breath. Objective Physical Exam Most Recent Vital Signs: BP: 131 mmHg/59 mmHg (01/20/23 1042) Pulse: 100 (01/20/23 0820) Temp: 36.78 C (01/20/23 0201) Resp: 20 (01/20/23 1042) SpO2: 93 % (01/20/23 104) CV: normal rate and rhythm Chest: normal respiratory effort, lungs clear to auscultation B/L Abdomen: soft, no tenderness, normal bowel sounds Extremities: Leg wrapped and dressing Neuro: alert, oriented to person, place, and time Peripheral Line Right Wrist 18 Gauge (Active) Number of days: 2 Peripheral Line Left Wrist 20 Gauge (Active) Number of days: 2 Assessment and Plan This is a 67-year-old female , morbidly obese, with history of uncontrolled IDDM type 2, CAD s/p CABG, chronic diastolic heart failure and PAD , who presented on 01/19/2023 with acute onset of leg pain concerning for limb ischemia s/p right femoral endarterectomy and ktain-gok-deim popliteal [id number]/19/2023, pending PT/OT. Limb ischemia s/p right femoral endarterectomy and xudmi-cwu-giyb popliteal bypass 01/19/2023 Plan: -continue meropenem and vancomycin -follow blood cultures -ongoing gentle compression from the toes to the level just below the knee -groin wound care with daily dry gauze dressing over the groin incision once the Prevena is removed. -PT/OT -resumed rivaroxaban 2.5 mg twice a day -pain control IDDM type II (A1c 11.7%) Peripheral neuropathy -Insulin sliding scale and glargine 50U -Holding metformin 850 mg 3 times a day, Liraglutide weekly and empagliflozin 10 mg daily -Continue gabapentin 300 mg 3 times a day CAD s/p CABG HFpEF (EF 55% 2020) Echo 2020 with EF 55-60% and Grade I diastolic dysfunction -Continue metoprolol succinate 25 mg daily -Resumed aspirin 81 mg and atorvastatin 80 mg daily Chronic medical conditions RLS: Continue amitriptyline 50 mg daily and ropinirole 0.5 mg at bedtime Depression: Continue sertraline 50 mg daily VTE prophylaxis: Rivaroxaban Diet: Diabetic diet Code status: Full code * Shanna Mathew MD - 01/19/2023 8:38 AM EST VASCULAR SURGERY PROGRESS NOTE [facility]-[address] [address] Name: Mariia Liao Location: [place] [facility]/OR Date: 01/19/2023 Time: 8:38 AM SUBJECTIVE: No acute events overnight. Patient to CT this AM. Denies any fevers overnight. Heparin drip running. OBJECTIVE: Most Recent Vital Signs: BP: 143 mmHg/74 mmHg (01/19/23835) Pulse: 101 (01/19/23835) Temp: 36.89 C (01/19/23835) Resp: 18 (01/19/23835) SpO2: 90 % (01/19/23835) Vital Signs Last 24 Hours: Most Recent Systolic BP Av.5 mmHg Min: 73 mmHg Max: 143 mmHg Most Recent Temperature Av.7 C Min: 36.61 C Max: 36.89 C Pulse Av Min: 86 Max: 101 Resp Av.7 Min: 16 Max: 20 SpO2 Av.3 % Min: 89 % Max: 95 % No intake or output data in the 24 hours ending 01/19/23837 Physical Exam: Constitutional: No acute distress. Lying in bed comfortably. HEENT: Normocephalic, atraumatic. Cardiac: Normal sinus rhythm. Resp: Satting well on room air. Abdomen/Pelvis: Soft, nontender, nondistended. Extremities: Erythema to the right lower extremity from the lower calf down. Ulceration to the R great toe. Neuro: Gross sensation and intact but patient complains of the inability to move her toes on the right and she is unable to move them on exam. Vascular: Faint right femoral palpable pulse. Unable to palpate the left femoral. LABS: Lab results within last 7 days (see chart for full results) Units 01/19/23 0458 01/19/23 0028 01/18/23 2302 WBC K/uL 8.13 9.84 8.51 HGB g/dL 11.8* 11.6* 11.5* PLT K/uL 193 191 187 Sodium mmol/L 136 -- 136 Potassium mmol/L 4.8 -- 4.8 Chloride mmol/L 105 -- 105 CO2 mmol/L 21* -- 20* BUN mg/dL 13 -- 15 Creatinine mg/dL 0.9 -- 0.9 Calcium mg/dL 8.1* -- 7.8* Recent Cultures (2 Weeks) 12/08/2022 11/28/2022 11/17/2022 06/08/2017 01/21/2013 01/08/2013 04/22/201107/3107/31/2008 4:04 PM 10:48 AM 12:47 PM 5:08 PM 2:08 PM 2:19 PM 3:00 PM 9:31 AM SPECIMEN DESCRIPTION -- -- -- CLEAN CATCH URINE LEFT AURICLE PIERCING DRAINAGE SWAB LEFT AURICULAR CARTILAGE ASPIRATE SWAB VAGINAL STOOL LEFT AURICULAR CARTILAGE ASPIRATE SWAB CULTURE -- -- -- LESS THAN 10,000 COLONIES/ML MIXED NORMAL TRISTAN MODERATE GROWTH NORMAL SKIN TRISTAN LIGHT GROWTH NORMAL SKIN TRISTAN -- Negative for C. Difficile toxin A and/or B. QUANT URINE CULTURE GROWTH No significant growth No significant growth No significant growth -- -- -- -- -- IMPRESSION and PLAN: 67 year old female with chronic foot ulcers now with cellulitis in the setting of pre-existing peripheral arterial disease now with rest pain and sensory intact but difficulty with motor to toes -Continue heparin drip -Patient with a documented nickel allergy but has had cardiac stent (containing nickel) placement in 2013; patient states she breathed in dust of cobalt and nickel and had an anaphylaxis reaction -Going to the OR today; angiogram of the RLE, possible femoral endarterectomy, possible arterial bypass, possible fasciotomies Shanna Mathew MD Vascular Surgery Fellow Associated attestation - Willian Rosas MD - 01/19/2023 9:50 AM EST I saw and evaluated the patient today. I have reviewed the trainee note and agree. Please see my other addendum from her consult note which contains the plan and specifics of our discussions. * Ermias Bhardwaj [facility] - 01/18/2023 11:54 PM EST PHARMACY PHARMACOKINETIC CONSULT [facility] [address] Name: Mariia Liao Location: Date: 01/18/2023 Time: 11:54 PM Requesting service: Medicine Admit 2 Bacteria being treated: empiric Source of infection: unknown Medication(s) being managed: Vancomycin Pharmacokinetic calculations will be performed utilizing InterviewBest software. Lab information: Lab Results Component Value Date/Time WBC 8.51 01/18/2023 11:02 PM WBC 9.78 12/05/2022 02:21 PM WBC 11.09 (H) 12/22/2021 09:56 AM WBC 9.65 06/25/2021 07:35 AM WBC 10.34 11/01/2012 10:00 AM WBC 10.13 06/15/2012 02:07 PM WBC 10.10 08/26/2009 12:08 PM WBC 11.18 (H) 02/22/2008 12:53 PM WBC 10.32 01/23/2008 08:02 AM Lab Results Component Value Date/Time BUN 15 01/18/2023 11:02 PM BUN 19 12/05/2022 02:21 PM BUN 16 12/22/2021 09:56 AM BUN 16 10/29/2021 08:01 AM BUN 12 06/25/2021 07:35 AM BUN 19 11/21/2019 08:37 AM BUN 16 12/12/2017 12:00 AM BUN 11 06/13/2013 01:11 PM BUN 9 05/17/2012 08:15 AM BUN 8 05/12/2011 08:00 AM BUN 11 11/05/2009 08:13 AM BUN 11 12/06/1995 09:55 AM Lab Results Component Value Date/Time CREAT 0.9 01/18/2023 11:02 PM CREAT 0.9 12/05/2022 02:21 PM CREAT 0.8 12/22/2021 09:56 AM CREAT 0.9 10/29/2021 08:01 AM CREAT 0.9 06/25/2021 07:35 AM CREAT 0.9 11/21/2019 08:37 AM CREAT 0.9 10/07/2019 10:02 AM CREAT 0.77 08/15/2019 12:00 AM CREAT 0.74 06/14/2018 12:00 AM CREAT 0.68 12/12/2017 12:00 AM CREAT 0.71 10/10/2017 12:00 AM CREAT 0.75 06/23/2017 12:00 AM CREAT 0.6 06/13/2013 01:11 PM CREAT 0.5 06/07/2013 07:43 AM CREAT 0.5 05/17/2012 08:15 AM ANTIMICROBIALS GIVEN (last 28 hours) None Wt Readings from Last 1 Encounters: 01/18/23 113.4 kg (250 lb) Levels to date: No results found for: "VANCO", "VANCOPEAK", "VANCORANDOM", "VANCOTROUGH", "GENTPEAK", "GENTRANDOM","GENTTROUGH", "TOBRAPEAK", "TOBRARANDOM", "TOBRATROUGH", "AMIKAPEAK", "AMIKARANDOM", "AMIKATROUGH" Impression: Mariia Liao is a/an 67 year old female receiving vancomycin therapy. The pharmacokinetic target for therapy is AUC24,SS (range) 400-600mg/L.hr Assessment and Plan: Analysis using [employer] gives the following patient-specific pharmacokinetic parameters: CL: 3.74 L/hr V: 76.5 L T1/2: 14.4 hours Vancomycin 2250 mg IV x 1 loading dose given at outside hospital prior to transfer. At this time we recommend a regimen of 1000 mg IV every 12 hours, which is predicted to result in asteady-state trough of 15.4 mg/L and AUC24 of 489 mg/L.hr. Recommendations: - Vancomycin 1000 mg IV every 12 hours - Obtain Vancomycin level 48-72 hours - Continue to monitor serum creatinine Pharmacy will continue to follow and dose as appropriate by renal function, culture results, infectious disease input, and overall clinical status. Contact the Pharmacy at extension [phone] if there are any questions. documented in this encounter H&P Notes * Greer Pnod PA-C - 01/18/2023 11:45 PM EST Images from the original note were not included. [facility] PRESENTING PROBLEM: Ischemic Limb HPI: Mariia Liao is a 67 YO F with PMH of DM2, HFrEF, CAD, S/p CABG and stroke intra-op, COPD, anxiety, DLD, tobacco use (quit November 2021), nonmelanoma skin cancer, urge incontinence. Per chart review and per patient, she ihas been seeing podiatry for nonhealing wound on her right big toe. She has an at home nurse that comes weekly. Over the past 2 days, the patient has been experiencing significantly more pain in her RLE also with redness and warmth. Patient states that she hada scheduled appointment with vascular but messaged yesterday to have appointment moved to Monday asshe was concerned about RLE. Home nurse was also concerned and noted absent pulses therefore ultimately patient was recommended to be evaluated at ED. Once at [facility] she underwent US which was concerning for ischemic RLE. Ultimately patient was transferred to [facility] for further workup and management. Patient is not aware of any occlusions in the past. She notes that she has had vascular sonograms in the past - believes her last was about 5 years ago. Notes that she is unsure of results at that time but notes that her current mud jack nozzleman was going to recommend vascular evaluation given concern for nonhealing foot ulcer. Per chart review, she was last seen in vascular clinic at [facility] in 2019 for leg claudication and was to f/u in 1 year with RANJITH and carotid duplex however these were never completed. At time of admission, patient denies KIM, dizziness, chest pain, SOB, abdominal pain, N/V. She does struggle with urge incontinence but denies dysuria and hematuria. She endorses regular bowel habits,last BM 2 days ago. She denies melena and hematochezia. Patient notes that in April when she underwent CABG, she had a stroke intra-op and since then has been scared to walk freely on her own. At home she is getting around with a walker but she is nervousto go out anywhere. Subjective Patient's past history, medications, and allergies were reviewed. Objective Physical Exam Most Recent Vital Signs: BP: 105 mmHg/62 mmHg (01/19/2329) Pulse: 86 (01/19/2329) Temp: 36.61 C (01/18/232250) Resp: 17 (01/19/2329) SpO2: 91 % (01/19/2329) Constitutional: no acute distress HEENT: normal: normocephalic, atraumatic; no masses, tenderness, or adenopathy CV: distant heart sounds, normal rate, normal rhythm, no gallop, no rub, (+) vertical incision oversternum 2/2 CABG , (+) murmur Chest: normal respiratory effort, lungs clear to auscultation and percussion Abdomen: normal: soft, bowel sounds normal, no masses, tenderness or organomegaly Musculoskeletal: (-) negative Extremities: (+) bilateral LE with edema, right LE with open wound on lateral aspect of great toe. See pictures below Skin: warm, (+) LE skin taunt, erythematous and warm : Neuro: alert, oriented to person, place, and time, normal mental status exam, reflexes normal and symmetric, sensory normal Psych: normal mood and affect, nonsuicidal, judgement normal, memory normal Peripheral Line Left Wrist 20 Gauge (Active) Number of days: 1 STUDIES: Encounter Orders Labs and other studies reviewed with pertinent findings noted below: Latest Reference Range & Units 01/18/23 23:02 01/19/23 00:13 ABO O O ABO/RH Rpt Rh Positive Positive TYPE AND SCREEN Rpt Specimen Expiration Date 01/21/2023 23:59 Red Blood Cell Antibody Screen Negative Sodium 135 - 146 mmol/L 136 Potassium 3.5 - 5.1 mmol/L 4.8 Chloride 98 - 107 mmol/L 105 CO2 22 - 32 mmol/L 20 (L) BUN 6 - 20 mg/dL 15 Creatinine 0.5 - 1.0 mg/dL 0.9 Estimated Glomerular Filtration Rate >=60 mL/min 67 Anion Gap 7 - 15 mmol/L 11 Glucose 70 - 120 mg/dL 204 (H) Calcium 8.4 - 10.2 mg/dL 7.8 (L) CBC Rpt ! CBC WITH WBC DIFFERENTIAL Rpt ! WBC 4.00 - 10.80 K/uL 8.51 HGB 12.0 - 15.3 g/dL 11.5 (L) HCT 36.0 - 45.2 % 38.4 MCV 81.5 - 97.5 fL 85.9 PLT 140 - 400 K/uL 187 Absolute Neutrophils 1.80 - 7.70 K/uL 6.12 Absolute Lymphocytes 1.00 - 4.80 K/ul 1.67 Absolute Monocytes 0.00 - 1.10 K/uL 0.56 Absolute Eosinophils 0.00 - 0.70 K/uL 0.10 Absolute Basophils 0.00 - 0.20 K/uL 0.03 XR FOOT 3 OR MORE VIEWS Rpt (L): Data is abnormally low (H): Data is abnormally high !: Data is abnormal Rpt: View report in Results Review for more information Assessment and Plan IMPRESSION: Mariia Liao is a 67 YO F with PMH of DM2, HFrEF, CAD, S/p CABG and stroke intra-op, COPD, anxiety, DLD, tobacco use (quit November 2021), nonmelanoma skin cancer, urge incontinence. Patient initially presented to [facility] for evaluation of acute increase in RLE pain along with absent pulses. Imagingthere raised concern for limb ischemia. Patient was discussed with vascular at [facility] who recommended devika arredondo. Principal Problem: Acute lower limb ischemia Active Problems: GENERALIZED ANXIETY DIS Dyslipidemia, goal LDL below 100 Type 2 diabetes mellitus with diabetic nephropathy (HCC) Type 2 diabetes mellitus with hemoglobin A1c goal of less than 8.0% ([facility]) CAD (coronary artery disease) Heart failure, systolic, due to CAD Diabetic retinopathy, nonproliferative, moderate ([facility]) COPD, group A, by GOLD 2017 classification ([facility]) Resolved Problems: * No resolved hospital problems. * DIFFERENTIAL AND PLAN: Limb Ischemia Concern for cellulitis - Vascular consult, recs below - No acute vascular intervention indicated at this time - Medicine admission - Hep gtt (ordered) - CTA aortofemoral runoff to evaluate known aortoilaic and GROUP SEGMENT CONSULTANT dz (ordered) - IV abx - Bcx and resuscitation in setting of sepsis (cultures in process) - Xray of foot to assess for OM (in process) - NPO x meds after 2400 (ordered) - Will continue to follow and monitor overnight - Hold SUPERVISOR GROWER xarelto given Heparin infusion - Isolyte @ 50ml/hr x 10 hours - PT/OT consult - Tylenol 650mg PRN for mild pain, SUPERVISOR GROWER tramadol 50-100mg PRN moderate-severe pain - Tele monitoring, vitals q6H, I&Os q6H - MRSA swab - Continue with IV vanco. Patient with allergy to keflex, PCN, and sulfa therefore limiting options. Given history of diabetes with open wound, will start on meropenem and consult ID - ID consult DM2 Neuropathy and RLS - Hold SUPERVISOR GROWER jiardiance, metformin, insulin (10U TID), liraglutide - Medium dose sliding scale q6H while NPO - monitor and adjust as indicated - continue SUPERVISOR GROWER gabapentin and ropinirole CAD s/p CABG HFrEF Hx of CVA - Continue SUPERVISOR GROWER aspirin, metoprolol, atorvastatin Acute Hypotension HTN - Responsive to fluids - Continue SUPERVISOR GROWER Metoprolol - monitor BP and hold in AM if appropriate Anxiety - Continue SUPERVISOR GROWER sertralime and elevil PHARMACOLOGIC VTE PROPHYLAXIS:hEParin Rivaroxaban Tabs CODE STATUS: Full Code EXPECTED DISCHARGE DATE: No information available Associated attestation - Christopher Owen MD - 01/20/2023 12:23 AM EST I have reviewed the advanced practitioner documentation and agree. I saw and evaluated the patient on date of service referenced in note and have performed the following medically appropriate historyand/or exam: 67 years old white female with history as outlined presented with ischemic pain in herright lower extremity and may also have some component of cellulitis. She is already been evaluated by vascular surgery. Will treat with antimicrobials heparin infusion,vascular surgery on board, insulin for glycemic control. Rest as per AP note documented in this encounter Consult Notes * Onur Ziegler DO - 01/20/2023 3:53 PM ESTAssociated Order(s): INFECTIOUS DISEASE CONSULT IP CONSULT - Infectious Disease [facility] [address] Name: Mariia Liao Location: [facility] H871/A Date: 01/20/2023 Time: 3:53 PM REQUESTING SERVICE: IM REASON FOR CONSULT: "diabetic patient with LE wound, cellulitis, and limb ischemia. Allergy to keflex, PCN, and sulfa therefore started on meropenem " HPI: The patient was admitted 01/18/2023 for LE pain that began a few days prior and occurred in the context of known DM, obesity and PAD/CAD. The patient was seen by Vascular Surgery and they took the patient for revascularization. ID was consulted due to concern for concurrent ceullulitis in the setting of multiple ABX allergies. Blood cultures are NGTD. The patient is being treated with vancomycin and meropenem. The patient currently reports improved erythema/pain. ALLERGIES: Nickel, Cephalexin, Doxepin, Dust, Paroxetine, Penicillins, and Sulfa antibiotics PAST MEDICAL HISTORY: Past Medical History: Diagnosis Date Allergic rhinitis Background diabetic retinopathy(362.01) 05/27/201405/[address] Montez Q6mo monitoring Benign neoplasm of colon 07/30/2010 polyps x 2--adenomatous tissue--repeat in 3 yrs , diverticulosis & fair prep-- CAD (coronary artery disease) 06/27/2013 06/24/13 +CP-abnormal stress->cath @[facility]. 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 85% Circ (stented RACHAEL), LAD 20%. EF shows inferior hypokinesis EF 45% Carotid artery stenosis without cerebral infarction, left 12/30/2020 Chronic sinusitis 06/07/2001 Diabetic macular edema of both eyes (HCC) 01/14/2019 DM type 2, goal A1C 7-8 [...] ears 02/21/2017 Solitary cyst of breast 1992 PAST SURGICAL HISTORY: Past Surgical History: Procedure Laterality Date ABLATE HEART DYSRHYTHM FOCUS 04/20/2012 AV Ablation-Dr Jeffrey Campos, [facility] BREAST LESION,OTHER,EXCISION Left benign BYPASS GRFT OTHER-CAROTID Right 05/02/[address] Oshea [facility] CARDIAC CATH SCANNED RESULT 06/24/2013 +Circ stent RACHAEL. CARPAL TUNNEL SURGERY 08/1992 Carpal Tunnel repair CARPAL TUNNEL SURGERY Left 12/11/2019 NEUROPLASTY MEDIAN NERVE AT CARPAL TUNNEL performed by Pankaj Osorio MD at OR [facility] COLONOSCOPY W/ LESION REMOVAL, SNARE 07/30/2010 polyps x 2--adenomatous tissue--repeat in 3 yrs , diverticulosis & fair prep-- COLONOSCOPY, DIAGNOSTIC (RECTUM) 10/02/2015 adenomatous polyps, diverticulosis, poor prep, repeat 1 yr/[facility] EXPLORATION OF MAXILLARY SINUS 06/07/2001 Sinus Surgery HYSTEROSCOPY W/BIOPSY AND/OR POLYPECTOMY W/WO D&C 02/14/2006 INFORMATION ablation LAP;OCCULSION OVIDUCTS/DEVICE 1985 LIGATE/CUT OVIDUCT(S) tubal ligation -rings MD CORONARY ARTERY BYP W/VEIN & ARTERY GRAFT 3 VEIN 04/27/2022 KUMAR to LAD, SVG to PL of LCx and PDA of the RCA 04/27/[address] Whyte [facility] [place]. PULMONARY FUNCTION TEST SCREEN 10/09/2001 normal REMOVE GALLBLADDER 04/1993 Cholecystectomy REPAIR OF NASAL SEPTUM 06/07/2001 Nasal Septum Repair TOTAL ABD HYSTERECTOMY W/WO REMOVAL OF TUBE(S) 06/23/2008 & oopherectomy VAGINAL DELIVERY ONLY SOCIAL HISTORY: Social History Tobacco Use Smoking status: Former Packs/day: 0.90 Years: 40.00 Additional pack years: 0.00 Total pack years: 36.00 Types: Cigarettes Quit date: 12/08/2021 Years since quittin.1 Smokeless tobacco: Never Tobacco comments: 10/04/2019 smokes 15 cigarettes per day on booklet and patches Vaping Use Vaping Use: Never used Substance Use Topics Alcohol use: Yes Comment: very rare Drug use: No FAMILY HISTORY: Family History Problem Relation Age of Onset Hypertension Mother Arthritis Mother Diabetes Father diet controlled Diabetes Sister Hypertension Sister Other (uticaria) Sister Cancer Grandfather (Paternal) gi cancer- Cancer Grandmother (Paternal) leukemia Other (anxiety) Grandmother (Paternal) Other (hyperlidemia) Sister Eye Problems Brother glaucoma No Past Hx Brother No Past Hx Daughter Allergies Sister hives Asthma Aunt (Unspecified) ROS: As reviewed in HPI; a complete ROS was otherwise negative PHYSICAL EXAMINATION: Most Recent Vital Signs: BP: 143 mmHg/74 mmHg (01/19/23 08) Pulse: 101 (01/19/23835) Temp: 36.89 C (01/19/23835) Resp: 18 (01/19/23835) SpO2: 90 % (01/19/23 0836) Vital Signs Last 24 Hours: Systolic BP: Most Recent Systolic BP Av.5 mmHg Min: 73 mmHg Max: 143 mmHg Temperature: Most Recent Temperature Av.7 C Min: 36.61 C Max: 36.89 C Pulse: Pulse Av Min: 86 Max: 101 Respirations: Resp Av.7 Min: 16 Max: 20 SpO2: SpO2 Av.3 % Min: 89 % Max: 95 % Vitals: as above Gen/Constitution: appears at stated age, NAD, nontoxic, sitting up Head: AT, NC, no supplemental oxygen in place Eyes: pupils equal, sclera anicteric, EOMI, no conjunctival injection ENT: MMM, no purulent rhinorrhea, trachea midline, hearing grossly nml Card: no LE edema, no JVD, warm, well-perfused Resp: not tachypneic, nml effort, symmetric chest rise, no accessory muscle use GI: abdomen soft, NT, no rigidity, no guarding Derm/skin: skin warm, not diaphoretic, no rash, no jaundice MSK: no open wound of the affected toes Vasc: IV w/o erythema/purulence Neuro: alert, oriented, speaking in full sentences, speech intelligible LABS: Labs reviewed as indicated below: (Reviewed; most pertinent / recent below; see EMR for further info) Recent Results (from the past 24 hour(s)) BASIC METABOLIC PANEL Collection Time: 01/18/23 11:02 PM Result Value Ref Range BUN 15 6 - 20 mg/dL Creatinine 0.9 0.5 - 1.0 mg/dL Estimated Glomerular Filtration Rate 67 >=60 mL/min Sodium 136 135 - 146 mmol/L Potassium 4.8 3.5 - 5.1 mmol/L Chloride 105 98 - 107 mmol/L CO2 20 (L) 22 - 32 mmol/L Anion Gap 11 7 - 15 mmol/L Glucose 204 (H) 70 - 120 mg/dL Calcium 7.8 (L) 8.4 - 10.2 mg/dL TYPE AND SCREEN Collection Time: 01/18/23 11:02 PM Result Value Ref Range ABO O Rh Positive Red Blood Cell Antibody Screen Negative Specimen Expiration Date 01/21/2023 23:59 CBC Collection Time: 01/18/23 11:02 PM Result Value Ref Range WBC 8.51 4.00 - 10.80 K/uL RBC 4.47 3.85 - 5.15 M/uL HGB 11.5 (L) 12.0 - 15.3 g/dL HCT 38.4 36.0 - 45.2 % MCV 85.9 81.5 - 97.5 fL MCH 25.7 27.0 - 34.0 pg MCHC 29.9 32.0 - 36.0 g/dL RDW 17.8 11.5 - 15.5 % PLT 187 140 - 400 K/uL MPV 10.0 6.6 - 11.1 fL nRBCs 0 <=0 /100 WBCs DIFFERENTIAL, AUTOMATED Collection Time: 01/18/23 11:02 PM Result Value Ref Range WBC 8.51 4.00 - 10.80 K/uL Neutrophils % 71.8 40.0 - 75.0 % Lymphocytes % 19.6 18.0 - 42.0 % Monocytes % 6.6 1.0 - 11.0 % Eosinophils % 1.2 0.0 - 6.0 % Basophils % 0.4 0.0 - 2.0 % Immature Granulocytes % 0.4 0.0 - 2.0 % Absolute Neutrophils 6.12 1.80 - 7.70 K/uL Absolute Lymphocytes 1.67 1.00 - 4.80 K/ul Absolute Monocytes 0.56 0.00 - 1.10 K/uL Absolute Eosinophils 0.10 0.00 - 0.70 K/uL Absolute Basophils 0.03 0.00 - 0.20 K/uL Absolute Immature Granulocytes 0.03 0.00 - 0.20 K/uL ABO/RH Collection Time: 01/18/23 11:02 PM Result Value Ref Range ABO O Rh Positive CULTURE, BLOOD Collection Time: 01/19/23 12:28 AM Result Value Ref Range Blood Culture Growth No growth to date CULTURE, BLOOD Collection Time: 01/19/23 12:28 AM Result Value Ref Range Blood Culture Growth No growth to date PT INR Collection Time: 01/19/23 12:28 AM Result Value Ref Range Prothrombin Time 12.2 11.6 - 15.2 seconds INR 0.9 0.8 - 1.2 APTT Collection Time: 01/19/23 12:28 AM Result Value Ref Range aPTT 24 21 - 38 seconds CBC Collection Time: 01/19/23 12:28 AM Result Value Ref Range WBC 9.84 4.00 - 10.80 K/uL RBC 4.47 3.85 - 5.15 M/uL HGB 11.6 (L) 12.0 - 15.3 g/dL HCT 39.6 36.0 - 45.2 % MCV 88.6 81.5 - 97.5 fL MCH 26.0 27.0 - 34.0 pg MCHC 29.3 32.0 - 36.0 g/dL RDW 17.7 11.5 - 15.5 % PLT 191 140 - 400 K/uL MPV 10.8 6.6 - 11.1 fL nRBCs 0 <=0 /100 WBCs HEPARIN, UNFRACTIONATED Collection Time: 01/19/23 12:28 AM Result Value Ref Range Heparin, Unfractionated <0.10 <0.10 IU/mL GLUCOSE METER, POINT OF CARE Collection Time: 01/19/23 1:32 AM Result Value Ref Range Glucose Meter 199 (H) 70 - 120 mg/dL CBC Collection Time: 01/19/23 4:58 AM Result Value Ref Range WBC 8.13 4.00 - 10.80 K/uL RBC 4.58 3.85 - 5.15 M/uL HGB 11.8 (L) 12.0 - 15.3 g/dL HCT 40.2 36.0 - 45.2 % MCV 87.8 81.5 - 97.5 fL MCH 25.8 27.0 - 34.0 pg MCHC 29.4 32.0 - 36.0 g/dL RDW 17.6 11.5 - 15.5 % PLT 193 140 - 400 K/uL MPV 9.9 6.6 - 11.1 fL nRBCs 0 <=0 /100 WBCs PT INR Collection Time: 01/19/23 4:58 AM Result Value Ref Range Prothrombin Time 12.1 11.6 - 15.2 seconds INR 0.9 0.8 - 1.2 BASIC METABOLIC PANEL Collection Time: 01/19/23 4:58 AM Result Value Ref Range BUN 13 6 - 20 mg/dL Creatinine 0.9 0.5 - 1.0 mg/dL Estimated Glomerular Filtration Rate 74 >=60 mL/min Sodium 136 135 - 146 mmol/L Potassium 4.8 3.5 - 5.1 mmol/L Chloride 105 98 - 107 mmol/L CO2 21 (L) 22 - 32 mmol/L Anion Gap 10 7 - 15 mmol/L Glucose 194 (H) 70 - 120 mg/dL Calcium 8.1 (L) 8.4 - 10.2 mg/dL APTT Collection Time: 01/19/23 7:48 AM Result Value Ref Range aPTT 34 21 - 38 seconds MICROBIOLOGY DATA: (Reviewed; most pertinent / recent below; see EMR for further info) Recent Cultures (2 Weeks) 01/19/2023 12/08/2022 11/28/2022 11/17/2022 06/08/2017 01/21/2013 01/08/2013 04/22/2011 12:28 AM 4:04 PM 10:48 AM 12:47 PM 5:08 PM 2:08 PM 2:19 PM 3:00 PM SPECIMEN DESCRIPTION -- -- -- -- CLEAN CATCH URINE LEFT AURICLE PIERCING DRAINAGE SWAB LEFT AURICULAR CARTILAGE ASPIRATE SWAB VAGINAL LEFT AURICULAR CARTILAGE ASPIRATE SWAB CULTURE -- -- -- -- LESS THAN 10,000 COLONIES/ML MIXED NORMAL TRISTAN MODERATE GROWTH NORMAL SKIN TRISTAN LIGHT GROWTH NORMAL SKIN TRISTAN -- BLOOD CULTURE GROWTH No growth to date -- -- -- -- -- -- -- No growth to date QUANT URINE CULTURE GROWTH -- No significant growth No significant growth No significant growth -- -- -- -- IMAGING: (Reviewed; most pertinent / recent below; see EMR for further info) XR FOOT 3 OR MORE VIEWS Narrative: EXAM Right XR FOOT 3 OR MORE VIEWS-01/19/2023 12:43 am HISTORY Concern for right foot osteomyelitis TECHNIQUE Three views of the right foot COMPARISON Right foot 11/28/2022 FINDINGS Bones are somewhat demineralized overall. There are degenerative changes. There is no fracture or dislocation. There is no definite osteolytic lesion. There is some indistinctness to the base of the 5th metatarsal but this is similar to previously and may be due to generalized demineralization. There is ossification of the Achilles tendon insertion into the calcaneus. Impression: IMPRESSION No definite evidence of osteomyelitis. No significant change from 11/28/2022. CURRENT ABX DOSING INFO Body mass index is 35.87 kg/m. Serum creatinine: 0.9 mg/dL 01/19/23 0458 Estimated creatinine clearance: 85.4 mL/min IMPRESSION PAD ?LE SSTI RECOMMENDATIONS The ID pharmacist is not available - please discuss with pharmacy in the AM re: transitioning to POlinezolid. If the patient does not have any contraindications, I think this would be a reasonable option. Linezolid has good activity against MSSA, MRSA and Streptococcus. If the patient's symptoms co ntinue to improve and there is no concern for a deeper infection (eg abscess, OM) then a 5-7 day course should be adequate. For the healthcare team: Unless specifically stated otherwise, all orders are deferred to the primary/requesting service. IDis signing off. Contact us for any new issues. If any workup finalizes after ID signs off, forward the results (this is very important since ID is not automatically notified). For revenue management: This patient's service included monitoring for ABX toxicity (eg nephrotoxicity/hepatotoxicity, etc). I spent a total of 60 minutes coordinating, documenting, and providing care for this patient excluding time spent in the performance of separately billed services. * Adam Penn MD - 01/18/2023 11:08 PM ESTAssociated Order(s): VASCULAR SURGERY CONSULT IP Images from the original note were not included. CONSULT - Vascular Surgery [address] [address] Name: Mariia Liao Location: Date: 01/18/2023 Time: 11:09 PM Date of Service: 01/18/2023 11:09 PM Requesting Service/Physician: emergency medicine Chief Complaint: c/f "ischemic rle" HPI: Mariia Liao is a 67 year old female with h/o DM, PAD, AR (s/p CABG 04/2022 at OSH) and COPD (4L O2 at nights) who is seen for evaluation and treatment of RLE, c/f ischemia. She reports that she has been following podiatry for years for a nonhealing RLE wound. A wound nurse evaluates her once aweek and recommended that she present to the ED given RLE erythema. Pt reports that she started having worsening RLE over the past 2 days. Has burning pain that shoots proximally. Pain worse with weightbearing and ambulation. She has been able to ambulate with the aid of a cane, which she has requires post CABG. Denies new loss of LE sensation, LE weakness, F/C/N/V, CP, SOB and abd pain. Has never had similar sx in past. Denies recent LE trauma but notes that she chronically has decreased sensation 2/2 to DM. Notes that she chronically has rest pain in B/L LEs. No other complaints. Quit smoking November 2021. On insulin at home. Of note, last seen in vascular clinic at [facility] 2019 for leg claudication and was to f/u in 1 year with RANJITH and carotid duplex. She notes that her mud jack nozzleman was going to recommend further vascular evaluation given non-healing RLE wound; has appt with vascular for 01/25. FAMILY HISTORY: Family history is noncontributory. Current Facility-Administered Medications Medication Dose Route Frequency Provider NSS 0.9% 1,000 mL bolus infusion 1,000 mL Intravenous Once Susi Peralta, DO Current Outpatient Medications Medication Jardiance 10 MG Oral Tablet (Empagliflozin) LORazepam 0.5 MG Oral Tablet (Ativan) Amitriptyline HCl 50 MG Oral Tablet (Elavil) Insulin Glargine Solostar 100 UNIT/ML Subcutaneous Solution Pen-injector (Basaglar KwikPen) NovoLOG FlexPen 100 UNIT/ML Subcutaneous Solution Pen-injector (insulin aspart) Atorvastatin Calcium 80 MG Oral Tablet (Lipitor) metFORMIN HCl 850 MG Oral Tablet (Glucophage) Estradiol 0.1 MG/GM Vaginal Cream (Estrace) Myrbetriq 50 MG Oral Tablet Extended Release 24 Hour (Mirabegron ER) Krill Oil 1000 MG Oral Capsule Magnesium Carbonate 250 MG/GM Oral Powder Victoza 18 MG/3ML Subcutaneous Solution Pen-injector (Liraglutide) traMADol HCl 50 MG Oral Tablet (Ultram) Sertraline HCl 50 MG Oral Tablet (Zoloft) rOPINIRole HCl 0.5 MG Oral Tablet (Requip) Gabapentin 300 MG Oral Capsule (Neurontin) Metoprolol Succinate ER 25 MG Oral Tablet Extended Release 24 Hour (toPROL XL) Rivaroxaban 2.5 MG Oral Tablet (Xarelto) Ventolin HFA 108 (90 Base) MCG/ACT Inhalation Aerosol Solution BD Pen Needle Tanja U/F 32G X 4 MM (Insulin Pen Needle) OneTouch Ultra Blue In Vitro Strip (Glucose Blood) fluticasone (FLONASE) 50 MCG/ACT nasal spray ASPIRIN EC 81 MG PO TBEC ONETOUCH ULTRASOFT LANCETS MIS ONETOUCH ULTRA SYSTEM W/DEVICE KIT Review of patient's allergies indicates: Allergen Reactions [...] ADVANCE DIRECTIVE INFORMATION Tobacco use disorder F17.200 DYSLIPIDEMIA, GOAL LDL BELOW 100 E78.5 Type 2 diabetes mellitus with diabetic nephropathy ([facility]) E11.21 HTN, goal below 130/80 I10 Routine general medical examination at a health care facility Z00.00 SVT (supraventricular tachycardia) I47.10 Type 2 diabetes mellitus with hemoglobin A1c goal of less than 8.0% ([facility]) E11.9 DM type 2 causing neurological disease ([facility]) E11.49 CAD (coronary artery disease) I25.10 Heart failure, systolic, due to CAD I50.20, I25.10 S/P drug eluting coronary stent placement Z95.5 Inguinal hernia, right K40.90 Diabetic retinopathy, nonproliferative, moderate ([facility]) E11.3399 Sensorineural hearing loss (SNHL) of both ears H90.3 Diabetic macular edema of both eyes ([facility]) E11.311 Type 2 diabetes mellitus with diabetic nephropathy, with long-term current use of insulin ([facility]) E11.21, Z79.4 Carpal tunnel syndrome on right G56.01 Atherosclerotic PVD with intermittent claudication ([facility]) I70.219 Other emphysema ([facility]) J43.8 Carotid artery stenosis without cerebral infarction, left I65.22 History of 2019 novel coronavirus disease (COVID-19) Z86.16 History of nonmelanoma skin cancer Z85.828 S/P CABG x 3 Z95.1 History of completed stroke Z86.73 Urge incontinence of urine N39.41 COPD, group A, by GOLD 2017 classification ([facility]) J44.9 Past Medical History: Diagnosis Date Allergic rhinitis Background diabetic retinopathy(362.01) 05/27/201405/[address] Montez Q6mo monitoring Benign neoplasm of colon 07/30/2010 polyps x 2--adenomatous tissue--repeat in 3 yrs , diverticulosis & fair prep-- CAD (coronary artery disease) 06/27/2013 06/24/13 +CP-abnormal stress->cath @[facility]. 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 85% Circ (stented RACHAEL), LAD 20%. EF shows inferior hypokinesis EF 45% Carotid artery stenosis without cerebral infarction, left 12/30/2020 Chronic sinusitis 06/07/2001 Diabetic macular edema of both eyes ([facility]) 01/14/2019 DM type 2, goal A1C 7-8 [...] macular edema associated with type2 diabetes mellitus ([facility]) 05/31/2021 Open wound of trunk 05/2008 s/p LAURIE Pneumonia, organism unspecified(486) 11/1992 Proliferative diabetic retinopathy of left eye without macular edema associated with type 2 diabetes mellitus ([facility]) 05/31/2021 S/P CABG x 3 06/01/2022 S/P drug eluting coronary stent placement 06/27/2013 Sensorineural hearing loss (SNHL) of both ears 02/21/2017 Solitary cyst of breast 1992 Past Surgical History: Procedure Laterality Date ABLATE HEART DYSRHYTHM FOCUS 04/20/2012 AV Ablation-Dr Jeffrey Campos, [facility] BREAST LESION,OTHER,EXCISION Left benign BYPASS GRFT OTHER-CAROTID Right 05/02/[address] Oshea [facility] CARDIAC CATH SCANNED RESULT 06/24/2013 +Circ stent RACHAEL. CARPAL TUNNEL SURGERY 08/1992 Carpal Tunnel repair CARPAL TUNNEL SURGERY Left 12/11/2019 NEUROPLASTY MEDIAN NERVE AT CARPAL TUNNEL performed by Pankaj Osorio MD at OR [facility] COLONOSCOPY W/ LESION REMOVAL, SNARE 07/30/2010 polyps x 2--adenomatous tissue--repeat in 3 yrs , diverticulosis & fair prep-- COLONOSCOPY, DIAGNOSTIC (RECTUM) 10/02/2015 adenomatous polyps, diverticulosis, poor prep, repeat 1 yr/[facility] EXPLORATION OF MAXILLARY SINUS 06/07/2001 Sinus Surgery HYSTEROSCOPY W/BIOPSY AND/OR POLYPECTOMY W/WO D&C 02/14/2006 INFORMATION ablation LAP;OCCULSION OVIDUCTS/DEVICE 1985 LIGATE/CUT OVIDUCT(S) tubal ligation -rings MD CORONARY ARTERY BYP W/VEIN & ARTERY GRAFT 3 VEIN 04/27/2022 UKMAR to LAD, SVG to PL of LCx and PDA of the RCA 04/27/[address]te [facility]. PULMONARY FUNCTION TEST SCREEN 10/09/2001 normal REMOVE GALLBLADDER 04/1993 Cholecystectomy REPAIR OF NASAL SEPTUM 06/07/2001 Nasal Septum Repair TOTAL ABD HYSTERECTOMY W/WO REMOVAL OF TUBE(S) 06/23/2008 & oopherectomy VAGINAL DELIVERY ONLY Family History Problem Relation Age of Onset [...] Occupation: retired. Employer: [id number] Comment: [email or web address] [facility] Tobacco Use Smoking status: Former Packs/day: [...] Yes Partners: Male control/protection: Surgical Comment: tubal. [id number] 1 daughter 28Y Other Topics Concern Service [...] on file Housing Stability: Not on file COMPLETE REVIEW OF SYSTEMS: All systems reviewed and negative unless noted in HPI. GENERAL MULTI-SYSTEM PHYSICAL EXAM: Vital Signs: BP 122/80 | Pulse 92 | Temp 36.6 C (97.9 F) (Tympanic) | Resp 17 | Wt 113.4 kg (250 lb) | LMP 03/13/2008 | SpO2 95% | BMI 35.87 kg/m | BSA 2.37 m Constitutional: NAD, alert, elderly, well nourished HEENT: NCAT, sclera white, EOMI, PERRL Mouth: MMM Neck: supple, FROM, symmetric, trachea midline CV: RRR, trace B/L edema, hypotensive SBP mid 50s Respiratory: nml respiratory effort and respiratory rate, symmetric chest rise Abdomen: soft, NTND, no guarding or rebound Extremities: GARCIA, no gross deformities Neuro: Alert, awake, oriented, grossly intact Skin: warm and dry, no cyanosis, no clubbing; + ulcerations of R medial great toe, and dorsum of 3rd and 4th digits, + ascending erythema RLE PULSE SCALE: PULSE SCALE: 4=Aneurysmal; 3=Normal; 2=Diminished; 1=Barely Palpable; 0=Absent Left Right Femoral 0 1 Popliteal 0 1 Dorsalis Pedis 0 0 Posterior Tibial 0 0 + PT and + DP, AT biphasic signals on U/S DIAGNOSTIC STUDIES: Reviewed previous CTA scan images were personally reviewed on 01/18/2023. Reviewed U/S impression from OSH. IMPRESSIONS: 67 yof with chronic right foot ulcers now with signs of cellulitis in settig of preexisting PAD experiencing rest pain but otherwise motosensorally intact. PLAN: - No acute vascular intervention indicated at this time - Recommend the following: - Medicine admission - Hep gtt - CTA aortofemoral runoff to evaluate known aortoilaic and GROUP SEGMENT CONSULTANT dz - IV abx - Bcx and resuscitation in setting of sepsis - Xray of foot to assess for OM - NPO x meds after 2400 - Will continue to follow and monitor overnight - Please reach out with questions/concerns The patient was discussed with Dr. Rosas. Adam Penn MD [facility]) Emergency Department ([facility]) [address] [address] Associated attestation - Willian Rosas MD - 01/19/2023 8:45 AM EST I saw and evaluated the patient today. I have reviewed the trainee note and agree. This is a complex situation in a poorly controlled diabetic with multilevel arterial disease and limb threatening ischemia of the right lower extremity. She underwent noninvasive testing approximately 1 month ago which is consistent with moderate arterial insufficiency of the bilateral lower extremities, right worse than left. She reports baseline limb pain but had worsening pain acutely 3 days ago. She reports pain at rest in addition to a nonhealing foot ulceration and erythema of the foot. She is currently being treated with antibiotics for this. She underwent CABG previously and had her saphenous vein harvested. She is at extremely high risk for limb loss/major amputation. She has an anaphylactic allergy to nickel, and we discussed that all metal stents contain nickel insome quantity, so this limits our revascularization options substantially. She previously underwentcoronary artery stenting with a polymer coated cobalt-chromium stent and reportedly tolerated this well. We do not have an identical stent for the peripheral space. We discussed right lower extremity angiogram to identify any potential bypass target distally, as the CTA that was obtained did not have adequate resolution to identify a distal bypass target. As faras conduit goes, her saphenous vein was harvested her previously for CABG. Since she has foot infection also, the use of PTFE would be at very high risk for graft infection. The alternative is a cryopreserved cadaveric donor conduit, which we discussed has inferior patency to her own saphenous veinor PTFE, but both of those are not options in this case. Her morbid obesity and uncontrolled diabetes also place her at very high risk for postoperative infection. If we do not have a distal bypass target, the alternative would be major amputation, which we will not undertake today but she is very high risk to require in the future, which would involve a planned return to the operating room. We discussed various combinations of revascularization options, including arterial bypass (inline or extra-anatomic), endarterectomy, angioplasty plus or minus intravascular lithotripsy. We discussedthe possibility of fasciotomies and the after care for such. The patient was counseled at length regarding the nature of acute limb ischemia and the risks, benefits and alternatives of this surgery. They also understand that a combination of open surgery (including extremity fasciotomies) and endovascular techniques (including thrombectomy and catheter directed thrombolysis) could be utilized. I have discussed with the patient that they are at very high risk for the following anticipated complications due to the patient's co-morbidities including , stroke, wound infection/dehiscence/breakdown, heart attack, respiratory complications, nerve injury, kidney failure requiring dialysis, b leeding requiring transfusions, intracranial bleeding, hemorrhage/thrombosis/aneurysm formation at the site of catheter insertion, urinary tract infection, need for multiple re-operations, graft failu re/thrombosis requiring re-operation, chronic edema or amputation. I have also explained to the patient that other risks of the procedure include, but are not limitedto, radiation injury, allergic reaction to the contrast, stroke, transfusion reaction, infection, nerve damage resulting in chronic pain and/or numbness, or . I also specifically detailed the risk of halfway ischemic neuritis in situations like this. 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 Will plan on foot debridements/amputations in the future. These additional procedures will involve planned future readmission(s). The patient understands the seriousness of the situation and informed consent was obtained to proceed with the surgery. Willian Rosas MD Associate Vascular Surgeon Division of Vascular and Endovascular Surgery [facility] documented in this encounter Nursing Notes * Sandrita Delgado RN - 01/21/2023 9:15 AM EST 0800 Blood pressure 131/64, pulse 85, temperature 37.2 C (98.9 F), temperature source Oral, resp. rate 20, height 1.803 m (5' 11"), weight 112 kg (247 lb), last menstrual period 03/13/2008, SpO2 93%. Patient AAOx4. VSS. Patient has no c/o pain or SOB at this time. Lungs diminished bilaterally on RA. R groin wound vac noted. RLE surgical dressing clean, dry, intact. Panus pink, open to air, powderapplied. R 3rd and 4th toe scabbed, open to air. Call tapia in reach. See flowsheet for further assessments. * Virgen Cai RN - 01/19/2023 6:00 PM EST Dual Licensed Skin Assessment completed by Carly Cai and Maico Radford. The patient is/has a N/A Skin Breakdown (includes non blanchable erythema): Yes - Surgical/Procedural changes only. * Nayeli Cramer RN - 01/19/2023 5:37 PM EST Post Anesthesia Care Unit Transport Note [facility] [address] [facility] [id number] Dept. Mariia Marianela Liao Transported from PeriOp to : [id number] Time: 1725 Care of patient transferred to: Lissett Cai RN Transported via: Bed Belongings with Patient: YES Pulse : 96 Temp : 97.9f BP : 128/77 Respirations : 16 Pulse Ox : 92 O2 : 4L NC SCDS: On but not activated/no machine * Nayeli Cramer RN - 01/19/2023 5:00 PM EST Dual Licensed Skin Assessment completed by Nayeli Quiñones and Aydee Lancaster The patient is/has a N/A Skin Breakdown (includes non blanchable erythema): Yes. Wound Type: Moisture associated skin damage/incontinent related skin damage, location left pannus Other, location Right lateral 1st toe, right anterior 3rd and 4th toes, Right groin/inferior knee (surgical) Wound Ostomy Nurse Notified: No - wound ostomy not needed at this time Nursing interventions: Assessed skin integrity * Nayeli Cramer RN - 01/19/2023 4:41 PM EST PERIOP TO IP HANDOFF COMMUNICATION NOTE [facility] [place] [id number] Name: Mariia Liao AGE: [age] year old Location: OR [facility] [place] Date: 01/19/2023 Attention to: Virgen Cai Report from: Nayeli Cramer RN Patient arriving via: Bed Time of call: 4:42 PM Phone Ext: [phone] Reason for SBAR (Situation, Background, Assessment, Recommendation) handoff: OR Sending to: H8 Emotional/Personal Events & Special Needs: None Prescriptions in chart: No Code Status: Full Code Discussion of adv directives occurred with - adult: Patient Safety Concerns: no safety concerns identified Allergies: Nickel, Cephalexin, Doxepin, Dust, Paroxetine, Penicillins, and Sulfa antibiotics PMH: Past Medical History: Diagnosis Date Allergic rhinitis Background diabetic retinopathy(362.01) 05/27/201405/[address] Markovitch Q6mo monitoring Benign neoplasm of colon 07/30/2010 polyps x 2--adenomatous tissue--repeat in 3 yrs , diverticulosis & fair prep-- CAD (coronary artery disease) 06/27/2013 06/24/13 +CP-abnormal stress->cath @[facility]. 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 85% Circ (stented RACHAEL), LAD 20%. EF shows inferior hypokinesis EF 45% Carotid artery stenosis without cerebral infarction, left 12/30/2020 Chronic sinusitis 06/07/2001 Diabetic macular edema of both eyes (HCC) 01/14/2019 DM type 2, goal A1C 7-8 [...] ears 02/21/2017 Solitary cyst of breast 1992 PSH: Past Surgical History: Procedure Laterality Date ABLATE HEART DYSRHYTHM FOCUS 04/20/2012 AV Ablation-Dr Jeffrey Campos, [facility] BREAST LESION,OTHER,EXCISION Left benign BYPASS GRFT OTHER-CAROTID Right 05/02/[address] Oshea [facility] CARDIAC CATH SCANNED RESULT 06/24/2013 +Circ stent RACHAEL. 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 PULMONARY FUNCTION TEST SCREEN 10/09/2001 normal REMOVE GALLBLADDER 04/1993 Cholecystectomy REPAIR OF NASAL SEPTUM 06/07/2001 Nasal Septum Repair TOTAL ABD HYSTERECTOMY W/WO REMOVAL OF TUBE(S) 06/23/2008 & oopherectomy VAGINAL DELIVERY ONLY Isolation: Isolation: Procedure: Right common femoral artery to below [...] films and imaging related to the procedure Type of Anesthesia: General endotracheal anesthesia Block: N/A IV intake: 2600 mL EBL: OR: 600 mL PACU: 0 mL Urine output: OR 1800 mL PACU 0 mL IUBC (Herzog): Incision location: Right groin/Inferior to right knee Dressing location: Right groin(prevena and dressing RLE) Time of last skin assessment: 1640 Pressure injuries or areas of concern: None Lines: Urethral Catheter Regular catheter (Active) Number of days: 0 Peripheral Line Right Wrist 18 Gauge (Active) Status Fluids infusing 01/19/23 1541 Tubing Changed No 01/19/23 1541 Phlebitis Scale 0 01/19/23 1541 Infiltration Scale 0 01/19/23 1541 Site Description (Other) Without redness, swelling or drainage 01/19/23 1541 Site Intervention None required 01/19/23 1541 Dressing Assessment Dressing clean, dry, and intact 01/19/23 1541 Dressing Intervention None required 01/19/23 154 Number of days: 1 Peripheral Line Left Wrist 20 Gauge (Active) Status Capped/Locked 01/19/23 154 Tubing Changed N/A 01/19/231540 Phlebitis Scale 0 01/19/231540 Infiltration Scale 0 01/19/231540 Site Description (Other) Without redness, swelling or drainage 01/19/23 154 Site Intervention None required 01/19/23 154 Dressing Assessment Transparent dressing;Dressing clean, dry, and intact 01/19/23 154 Dressing Intervention None required 01/19/23 154 Number of days: 1 Vital Signs: BP: 134/76 (01/19/23 1630) Temp: 36.2 C (97.2 F) (01/19/231610) Pulse: 96 (01/19/23 1630) Resp: 19 (01/19/23 163) SpO2: 92 % (01/19/231629) O2 flow rate: 3 L/MIN (01/19/23 163) Glucose (Bedside): 199 (01/19/23 0133) Time of last pain medication: 1531 Med: Fentanyl Time of last antibiotic: 1346 Med: Vancomycin Time of last antiemetic: 1448 Med: Zofran TECHNOLOGY MANAGER: no Drips: no Neurological: Neuro WNL: WNL - within normal limits (01/19/23 0800) Speech: Clear (01/19/231610) Level of Consciousness: Alert (01/19/231610) RUE Motor Strength: 5-Active movement with full resistance (01/19/231610) RLE Motor Strength: 5-Active movement with full resistance (01/19/231610) LUE Motor Strength: 5-Active movement with full resistance (01/19/231610) LLE Motor Strength: 5-Active movement with full resistance (01/19/231610) Coma Score: 15 (01/19/231610) Respiratory: Respiratory WNL: WNL- within normal limits (01/19/231610) Cough: None (01/19/231610) Depth/Rhythm: Regular (01/19/231610) Dyspnea Occurance: None (01/19/231610) Effort: Unlabored (01/19/231610) Oxygen therapy/ Mechanical vent O2 flow rate: 3 L/MIN (01/19/231629) Supplemental O2 Delivery: Nasal Cannula (01/19/231629) Cardiac: Cardiovascular WNL: WNL - within normal limits (01/19/231610) Rhythm: NSR (01/19/231610) MD interval: 0.2 seconds (01/19/23 08) QRS: 0.09 seconds (01/19/23799) Extremities: +Sensation;Warm (01/19/231610) Pulses Right: Dorsalis Pedis +;Post Tibial +;Doppler (01/19/231610) Pulses Left: Dorsalis Pedis +;Post Tibial +;Doppler (01/19/231610) Edema: Yes (01/19/231610) Edema Location: Lower extremities;Both (01/19/231610) Edema Assessment: +1 - Description (01/19/231610) GI: GI WNL: WNL - within normal limits (01/19/231610) Bowel Sounds: All Quadrants;Present (01/19/231610) : WNL: X - Exceptions to WNL as documented below (01/19/231610) Urine Description: Cloudy;Yellow (01/19/231610) Due to Void: Herzog Integumentary:Integumentary WNL: X - Exceptions to WNL as documented below (01/19/231610) Skin Description: Dry;Warm (01/19/231610) Skin Color: Flesh Tone (01/19/231610) Skin Lesion: Other - Describe (01/19/231610) Dimitris Score (auto-calculation): 19 (01/19/23 0832) Family updated on transfer: no Additional Assessment Information: None * Lourdes Stringer RN - 01/19/2023 8:48 AM EST Dual Licensed Skin Assessment completed by Lourdes Friedman RN and Nayeli Quiñones RN. The patient is/has a N/A Skin Breakdown (includes non blanchable erythema): Yes. Wound Type: Other, location callous to R toe Wound Ostomy Nurse Notified: No - wound ostomy not needed at this time Nursing interventions: observation * Guerita Suarez RN - 01/19/2023 7:53 AM EST Hand-Off - Nurse Communication Note Name: Mariia Liao Location: [address] Date: 01/19/2023 Time: 7:53 AM Sending to: pacu Safety Concerns: None Allergies: Nickel, Cephalexin, Doxepin, Dust, Paroxetine, Penicillins, and Sulfa antibiotics Code Status: Full Code Discussion of adv directives occurred with - adult: Patient Isolation: None none Isolation flowsheet: Special Needs: Special Needs comments: Attention to: pacu Report from: Guerita Apodaca RN Phone extension: [phone] Patient arriving via: Bed Reason for SBAR handoff: OR Situation/Background Admission date: 01/18/2023 Patient Service: Med L [[id number]] Attending Provider: Debbi Broderick MD Admitting diagnosis: Cellulitis Chief Complaint: transfer of records ([facility]) and Cellulitis (Right foot) Problem list: Principal Problem: Acute lower limb ischemia Active Problems: GENERALIZED ANXIETY DIS Dyslipidemia, goal LDL below 100 Type 2 diabetes mellitus with diabetic nephropathy (HCC) Type 2 diabetes mellitus with hemoglobin A1c goal of less than 8.0% (HCC) CAD (coronary artery disease) Heart failure, systolic, due to CAD Diabetic retinopathy, nonproliferative, moderate (HCC) COPD, group A, by GOLD 2017 classification ([facility]) Resolved Problems: * No resolved hospital problems. * Level of Care: Med Surg [3] Assessment Vital Signs: BP: 133/65 (01/19/2353) Temp: 36.6 C (97.9 F) (01/19/2353) Pulse: 96 (01/19/2353) Resp: 18 (01/19/2353) SpO2: 89 % (01/19/2353) Glucose (Bedside): 199 (01/19/23132) Weight: 116.6 kg (257 lb) (01/19/2355) Height: 180.3 cm (5' 11") (01/19/2355) Fall Scale: Fall Score: 60 (01/18/232299) Fall Interventions: Bed at low level;Yellow armband applied/intact and on patient;Fall risk sign above bed;Fall risk sign outside room;Floor free of clutter;Non-skid foot covering on;Reoriented patient;Walk path free of obstacles (01/18/232299) Neurological: Asael Coma Scale Eyes Open: Spontaneous (01/18/232302) Best Verbal Response: Verbally appropriate for age (01/18/232302) Best Motor Response: Obeys commands appropriate for age (01/18/232302) Coma Score: 15 (01/18/232302) Additional Neurological Information: none Respiratory: Oxygen therapy/ Mechanical vent O2 flow rate: 2 L/MIN (01/18/232250) Supplemental O2 Delivery: Nasal Cannula (01/18/232250) O2 flow rate: 2 L/MIN (01/18/232250) Additional Respiratory Information: O2 while sleeping Cardiac: Additional Cardiac Information: none GI/: Additional GI/ Information: none Integumentary: Skin Breakdown (including Red, Non-Blanchable Areas) Present on Admission?: No (01/19/2355) Additional Integumentary Information: none Restraints: No orders of the defined types were placed in this encounter. Lines: Peripheral Line Right Wrist 18 Gauge (Active) Status Capped/Locked;Flushes easily;Alcohol disinfectant cap;Cap changed 01/19/23107 Tubing Changed No 01/19/23107 Phlebitis Scale 0 01/19/23107 Site Description (Other) Without redness, swelling or drainage 01/19/23107 Site Intervention Flushed 01/19/23107 Dressing Assessment Dressing clean, dry, and intact 01/19/23107 Dressing Intervention None required 01/19/23107 Number of days: 1 Peripheral Line Left Wrist 20 Gauge (Active) Status Fluids infusing 01/19/23107 Tubing Changed No 01/19/23107 Phlebitis Scale 0 01/19/23107 Infiltration Scale 0 11/23/23 0108 Site Description (Other) Without redness, swelling or drainage 01/19/23107 Site Intervention None required 01/19/23107 Dressing Assessment Dressing clean, dry, and intact 01/19/23107 Dressing Intervention None required 01/19/23107 Number of days: 1 Labs: Labs This Encounter BASIC METABOLIC PANEL - Abnormal; Notable for the following components: Result Value Ref Range CO2 20 22 - 32 mmol/L Glucose 204 70 - 120 mg/dL Calcium 7.8 8.4 - 10.2 mg/dL All other components within normal limits CBC - Abnormal; Notable for the following components: HGB 11.5 12.0 - 15.3 g/dL All other components within normal limits CBC - Abnormal; Notable for the following components: HGB 11.6 12.0 - 15.3 g/dL All other components within normal limits DIFFERENTIAL, AUTOMATED - Normal CBC WITH WBC DIFFERENTIAL Narrative: The following orders were created for panel order CBC WITH WBC DIFFERENTIAL. Procedure Abnormality Status --------- ------ CBC[[id number]] Abnormal Final result DIFFERENTIAL, AUTOMATED[[id number]] Normal Final result Please view results for these tests on the individual orders. TYPE AND SCREEN ABO/RH CULTURE, BLOOD CULTURE, BLOOD GLUCOSE METER, POINT OF CARE (COMMUNICATION ORDER) GLUCOSE METER, POINT OF CARE (COMMUNICATION ORDER) GLUCOSE METER, POINT OF CARE (COMMUNICATION ORDER) GLUCOSE METER, POINT OF CARE (COMMUNICATION ORDER) GLUCOSE METER, POINT OF CARE (COMMUNICATION ORDER) GLUCOSE METER, POINT OF CARE (COMMUNICATION ORDER) GLUCOSE METER, POINT OF CARE (COMMUNICATION ORDER) Diet: Orders Placed This Encounter Procedures NPO Except Meds Additional Diet Information: none Intake and Output: No intake or output data in the 24 hours ending 01/19/23 0753 Patient Belongings and Home Medications Patient Belongings at Bedside Belongings at Bedside: Clothing (01/19/2355) Clothing: Pants;Shirt;Bra (01/19/2355) Patient Belongings Sent Home (Does not apply to Ambulatory areas) Belongings Sent Home: Jewelry;Electronic devices (01/19/2355) Jewelry: Earrings;Bracelet (01/19/2355) Patient Electronics: Cell phone (01/19/2355) Patient Belongings Sent to Safe/Locker Belongings Sent to Safe: None (01/19/2355) Patient Medications Medications Brought by Patient?: Yes (01/19/2355) Disposition of Medications: Stored on unit (01/19/2355) Medications: insulin, 2 days of pills sorted (01/19/2355) Recommendations/Follow up Goals/Plan of Care: or Consults not completed: none Anticipated tests/studies/procedures: or Medication Reconcilliation completed for this Transfer? Yes * Michela Mcneil RN - 01/19/2023 1:10 AM EST Dual Licensed Skin Assessment completed by Sammi Nina RN and Michela Mcneil RN. The patient is/has a N/A Skin Breakdown (includes non blanchable erythema): No Patient has no open wounds. She does have bilateral cellulitis noted to lower extremities that pt reports has been recently treated with antibiotics. She has a callous to right great toe. documented in this encounter OR Notes * OR Surgeon - Willian Rosas MD - 01/19/2023 3:28 PM EST [facility] [address] [facility] [address] OPERATIVE REPORT Name: Mariia Liao Date: 01/19/2023 Time: 3:30 PM Location: [place] [facility] [place] Service: Vascular Surgery Date of Operation: 01/19/2023 Preoperative diagnosis: Infrainguinal arterial occlusive disease, acute on chronic limb ischemia, right diabetic foot infection Postoperative diagnosis: Same Surgeon: Willian Rosas MD Assistants: Shanna Mathew MD Anesthesia: General endotracheal anesthesia Procedure: Right common femoral artery to below [...] films and imaging related to the procedure Findings: Severe infrainguinal arterial occlusive disease as documented on preoperative imaging studies. Severe stenosis of the right external iliac artery. Moderate stenosis of the right common iliac artery. Severe stenosis of the right common femoral artery with heavy calcification, near occlusion. Severe heavily calcified stenosis in the proximal right deep femoral artery. Occluded right superficial femoral artery. An island of the distal superficial femoral artery reconstitutes via collaterals then occludes. The popliteal artery reconstitutes via collateral flow, but is heavily diseased and severely stenotic [id number]. [id number] the vessel is more patent. The peroneal artery is diseased but patent. The right anterior tibial artery is occluded shortly after its origin. The right posterior tibial artery is a diminutive vessel that is heavily diseased and occludes part way down the leg. The posterior tibial artery reconstitutes via a large collateral from the peroneal artery at the level just above the ankle. The dorsalis pedis artery also reconstitutes via a large collateral from the peroneal artery at the level of the ankle mortise. Following angioplasty, there is patent flow through the right external iliac artery. The right internal iliac artery is diseased but patent. There is unchanged moderate stenosis in the proximal portion of the right common iliac artery. After external iliac artery angioplasty followed by extensive right common and deep femoral endarterectomy, there was readily palpable, pulsatile inflow. Thus, we did not pursue any additional revascularization of the right common iliac artery for fear of causingdissection or embolization. 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 Following common femoral artery to below-knee popliteal artery bypass using reversed cryopreserved saphenous vein, there are multiphasic signals at the peroneal and posterior tibial sites in the right lower extremity. EBL: 600 ml Drains: None Fluids: 2100 mL crystalloid, 500 mL albumin Urine output: 1700 mL. Specimen: None Complications: None Condition: Stable to recovery room Indications and History: Mariia Liao presents with advanced peripheral arterial occlusive disease with ischemic rest pain, nonhealing ulcers, and cellulitis of the foot. Evaluation revealed severe infrainguinal arterial occlusive disease. The patient understands the risks, benefits and alternatives of the surgery andagrees to proceed with the surgical procedure. Description of Operation: The patient was identified by name, date of , and MRN, and the procedure verified. A time-out was held to confirm this information. A Herzog catheter was placed under sterile technique. The patients lower abdomen and both groins, followed by the entire right lower extremity was prepped and draped in the usual sterile fashion. Using ultrasound guidance, the right common femoral artery was accessed using a micropuncture needle and the micropuncture wire was advanced into the right external iliac artery. Over the wire we inserted the dilator of the micropuncture sheath. We performed right lower extremity arteriography via i njection from this micropuncture sheath dilator, with findings as detailed above. The micropuncturedilator was removed from the groin and manual pressure was held to obtain hemostasis. A standard oblique groin incision was made overlying the right common femoral artery. The common femoral artery was then exposed and sharply dissected. The dissection was extended proximally to the inguinal ligament and distally to the bifurcation. The common femoral, superficial femoral, and profunda femoris arteries were encircled with silastic vessel loops. We dissected down to the first 2 main branches of the profunda and individually controlled these with silastic vessel loops as we knew that we would have to perform deep femoral endarterectomy as part of the procedure. A longitudinal skin incision was performed posteromedial and parallel to the tibia. The incision was deepened through the subcutaneous tissue, exposing the fascia. Attention was made to avoid injuring the remnant great saphenous vein below the knee. The fascia was incised and the popliteal space was entered. A 2- cm segment of the popliteal artery was sharply dissected. The patient was given heparin intravenously. Using a micropuncture needle and 014 advantage Glidewire, the right common femoral artery was accessed and the wire was advanced into the distal aorta under fluoroscopic visualization. We then clamped the inflow in the distal external iliac artery using a Derra clamp. Silastic vessel loops were used to control the profunda outflow. The superficial femoral artery was chronically occluded. Using an11 blade we created an arteriotomy on the common femoral artery and extended it with Bro scissors. Using a Gilboa elevator, we freed up the extensive amount of heavily calcified common femoral artery plaque and removed it from the vessel. We then utilized a Gilboa elevator and tonsil clamp to perform deep femoral endarterectomy as there was an extensive amount of heavily calcified plaque in the proximal portion of the deep femoral artery. When we were satisfied with our endpoints, the vessel was irrigated with heparinized saline. Over the previously placed wire, we advanced a 6 Portuguese sheath retrograde from the common femoral artery and advanced a 6 x 80 mm Guadalupe angioplasty balloon into the right external iliac artery and performed balloon angioplasty of the right external iliac artery. Follow-up imaging revealed a satisfactory result. At this point, we advanced a straight marker catheter into the distal aorta and performed additional arteriography. Findings are as detailed above. We elected not to pursue any additional iliac intervention as detailed above in the findings section. At this point, we had readily palpable, pulsatileinflow. Utilizing a Wainwright tunneling device, we created a tunnel subfascially from the leg incision to the groin incision. We ensured that there were no tethering fascial bands and that the tunneled area advanced easily. After the cryopreserved graft was prepared and made ready for use, it was reversed and trimmed to an approximate length. We spatulated the cryopreserved vein using Bro scissors for an appropriate length to construct our proximal anastomosis. This was constructed using 6-0 Prolene in continuous fashion. Prior to tying down our anastomosis, appropriate flushing and irrigation was performed. We then unclamped the inflow from the external iliac artery and the outflow to the deep femoral artery. We flushed pulsatile blood out of the vein graft which had flow in systole and diastole. We marked the vein graft to ensure no twisting or kinking occurred. The vein graft was then passed through the pr eviously created tunnel. We checked to ensure there was no kinking or twisting of the graft after tunneling, and that the graft continued to have pulsatile flow in both systole and diastole. We tightened our silastic vessel loops on the below-knee popliteal artery. An arteriotomy was created using an 11 blade and extended with Bro scissors. We trimmed the vein graft to an appropriate final length and constructed our anastomosis distally using 6-0 Prolene in continuous fashion. Prior to completing the anastomosis, we flushed appropriately and irrigated. We unclamped the flow to the graft and then open flow to the below-knee popliteal artery. We found a readily palpable pulse in the graft and multiphasic signal in the popliteal artery. The signal in the popliteal artery diminished and augmented appropriately with graft occlusion and reopening. At this point we insonated for Doppler signals at the level of the ankle and found multiphasic posterior tibial and peroneal signals which were much improved over the preoperative exam. The appearance of the foot was pink, warmer, andimproved over the preop appearance. We inspected for hemostasis and hemostasis was ensured using topical Gelfoam and thrombin followed by a small amount of Surgicel. Heparin was reversed with protamine. The suture lines and the wounds were then rechecked for hemostasis. There was a good Doppler signalin the foot. The wounds were all irrigated with antibiotic solution. The subcutaneous tissue in thegroin wound was closed in multiple layers of running 3-0 Vicryl sutures. Bupivacaine was infiltrated around the groin incision. The skin was reapproximated using a running 4-0 Monocryl suture in subcuticular fashion. A Prevena VAC was applied. The skin of the below-knee incision was closed using interrupted 3-0 nylon sutures in vertical mattress fashion. This wound was dressed with Xeroform, dry gauze, Kerlix, and a gentle Jonathan wrap. After wound closure and dressing application we ensured that the patient continued to have multiphasic distal signals in the right lower extremity. All needle, sponge, and instrument counts were reported to us as correct. The patient tolerated the procedure well and was transported to the recovery area in stable condition. Attestation: I was present and scrubbed for the entire procedure Willian Rosas MD Associate Vascular Surgeon Division of Vascular and Endovascular Surgery [facility] documented in this encounter Miscellaneous Notes * Care Plan - Sandrita Delgado RN - 01/21/2023 9:15 AM EST Clinical Goal(s): patient will get OOB to chair this shift (11/25/23 0800) Possible barriers to meeting goal(s)/advancing plan of care: weakness Stability of the patient: Moderately stable - low risk of patient condition declining or worsening Summary regarding today's goal(s): Met: patient got OOB to chair this shift Recommendations: continue to encourage activity with assistance * Progress Notes - Post-Op Global - Shanna Mathew MD - 01/21/2023 7:10 AM EST Images from the original note were not included. VASCULAR SURGERY PROGRESS NOTE [facility] [address] Name: Mariia Liao Location: [facility] H871/A Date: 01/21/2023 Time: 7:10 AM SUBJECTIVE: No acute events, patient is resting comfortably without complaint this morning. Pain iswell controlled. Has been up and ambulating to the restroom. States that her right foot feels a lotbetter than when she came in. Currently on vancomycin and meropenem; ID following. OBJECTIVE: Most Recent Vital Signs: BP: 109 mmHg/81 mmHg (01/21/23 020) Pulse: 97 (01/20/23 1900) Temp: 37.11 C (01/21/23206) Resp: 20 (01/21/23206) SpO2: 93 % (01/21/23206) Vital Signs Last 24 Hours: Most Recent Systolic BP Av.7 mmHg Min: 97 mmHg Max: 131 mmHg Most Recent Temperature Av.1 C Min: 36.78 C Max: 37.22 C Pulse Av.5 Min: 97 Max: 100 Resp Av Min: 20 Max: 20 SpO2 Av.5 % Min: 86 % Max: 98 % Intake/Output Summary (Last 24 hours) at 01/21/2023 0710 Last data filed at 01/20/2023 2145 Gross per 24 hour Intake 240 ml Output 1200 ml Net -960 ml Physical Exam: Constitutional: No acute distress. Lying in bed without difficulty. HEENT: Normocephalic, atraumatic. Cardiac: Normal sinus rhythm. Resp: [address] Extremities: All extremities are warm and well perfused. Right toes with ulcers present (picture below). Prevena in place and functioning to right groin. Surgical incision is clean and intact withouterythema. Neuro: Gross sensation and motor function intact bilaterally to upper and lower extremities. Vascular: Multiphasic DP and PT to the right lower extremity is present. LABS: Lab results within last 7 days (see chart for full results) Units 01/21/23 0649 01/20/23 0501 01/19/23 1644 WBC K/uL 7.92 9.47 9.40 HGB g/dL 10.2* 10.1* 10.6* PLT K/uL 193 206 179 Sodium mmol/L -- 131* 136 Potassium mmol/L -- 4.4 5.1 Chloride mmol/L -- 98 102 CO2 mmol/L -- 19* BUN mg/dL -- 12 12 Creatinine mg/dL -- 0.7 0.7 Calcium mg/dL -- 8.5 8.3* Recent Cultures (2 Weeks) 01/19/2023 12/08/2022 11/28/2022 11/17/2022 06/08/2017 01/21/2013 01/08/2013 04/22/2011 12:28 AM 4:04 PM 10:48 AM 12:47 PM 5:08 PM 2:08 PM 2:19 PM 3:00 PM SPECIMEN DESCRIPTION -- -- -- -- CLEAN CATCH URINE LEFT AURICLE PIERCING DRAINAGE SWAB LEFT AURICULAR CARTILAGE ASPIRATE SWAB VAGINAL LEFT AURICULAR CARTILAGE ASPIRATE SWAB CULTURE -- -- -- -- LESS THAN 10,000 COLONIES/ML MIXED NORMAL TRISTAN MODERATE GROWTH NORMAL SKIN TRISTAN LIGHT GROWTH NORMAL SKIN TRISTAN -- BLOOD CULTURE GROWTH No growth to date -- -- -- -- -- -- -- No growth to date QUANT URINE CULTURE GROWTH -- No significant growth No significant growth No significant growth -- -- -- -- IMPRESSION and PLAN: 67 year old female s/p right femoral endarterectomy and femoral to below the knee popliteal bypass with cryopreserved vein -Keep Prevena in place at this time; leave on until battery dies and then OK to remove - once this occurs patient will need to keep the incision clean and dry and will need to place guaze at the incision site at least 2X a day; I have discussed this at length with patient and she is aware of the care that is involved to hopefully prevent groin infection -Patient with 6 pack of Pepsi bedside; discussed with patient the importance of controlling her diabetes and discussed limiting her Pepsi intake to hopefully improve her glucose -Continue antibiotics at this time; patient will need to continue with aggressive antibiotic therapy at this time (photos in chart) - OK to transition over to linezolid -Continue ASA, Xarelto, and statin at this time -OK for discharge today; follow-up with Vascular Surgery in [facility] on 01/25/2023 Shanna Mathew MD Vascular Surgery Fellow Associated attestation - Bandar Cardenas MD - 01/21/2023 8:20 AM EST I saw and evaluated the patient today. I have reviewed the trainee note and agree. She is up ambulating in halls She is anxious for d/c Acceptable from vascular perspective for d/c Oral antibiotic arranged by ID at time of d/c * Progress Notes - Post-Op Global - Adam Penn MD - 01/20/2023 8:00 AM EST VASCULAR SURGERY POSTOPERATIVE PROGRESS NOTE [facility] [address] Name: Mariia Liao Location: [facility] H871/A Date: 01/20/2023 Time: 8:00 AM Status Post: Right common femoral artery to below knee [...] films and imaging related to the procedure SUBJECTIVE: No acute events, VS wnl. Pain is well-controlled. States her right legs feels better. OBJECTIVE: Most Recent Vital Signs: BP: 112 mmHg/90 mmHg (01/20/23 0201) Pulse: 98 (01/20/23200) Temp: 36.78 C (01/20/23200) Resp: 18 (01/20/23200) SpO2: 93 % (01/20/23200) Vital Signs Last 24 Hours: Most Recent Systolic BP Av mmHg Min: 94 mmHg Max: 154 mmHg Most Recent Temperature Av.5 C Min: 36.11 C Max: 36.89 C Pulse Av.7 Min: 92 Max: 102 Resp Av.9 Min: 14 Max: 21 SpO2 Av.4 % Min: 90 % Max: 100 % Intake/Output Summary (Last 24 hours) at 01/20/2023 0800 Last data filed at 01/20/2023 0531 Gross per 24 hour Intake 2100 ml Output 5110 ml Net -3010 ml Physical Exam: Constitutional: No acute distress. Lying in bed comfortably. HEENT: Normocephalic, atraumatic. Cardiac: Normal sinus rhythm. Resp: Satting well on room air. Extremities: Right lower extremity with Prevena in place to the right groin, JONATHAN to the right lowerextremity. Neuro: Gross sensation and motor function intact bilaterally. Vascular: perineal and PT signals present on the right and DP and PT on the left LABS: Lab results within last 7 days (see chart for full results) Units 01/20/23 0501 01/19/23 1644 WBC K/uL 9.47 9.40 HGB g/dL 10.1* 10.6* PLT K/uL 206 179 Sodium mmol/L 131* 136 Potassium mmol/L 4.4 5.1 Chloride mmol/L 98 102 CO2 mmol/L 23 19* BUN mg/dL 12 12 Creatinine mg/dL 0.7 0.7 Calcium mg/dL 8.5 8.3* Recent Cultures (2 Weeks) 01/19/2023 12/08/2022 11/28/2022 11/17/2022 06/08/2017 01/21/2013 01/08/2013 04/22/2011 12:28 AM 4:04 PM 10:48 AM 12:47 PM 5:08 PM 2:08 PM 2:19 PM 3:00 PM SPECIMEN DESCRIPTION -- -- -- -- CLEAN CATCH URINE LEFT AURICLE PIERCING DRAINAGE SWAB LEFT AURICULAR CARTILAGE ASPIRATE SWAB VAGINAL LEFT AURICULAR CARTILAGE ASPIRATE SWAB CULTURE -- -- -- -- LESS THAN 10,000 COLONIES/ML MIXED NORMAL TRISTAN MODERATE GROWTH NORMAL SKIN TRISTAN LIGHT GROWTH NORMAL SKIN TRISTAN -- BLOOD CULTURE GROWTH No growth to date -- -- -- -- -- -- -- No growth to date QUANT URINE CULTURE GROWTH -- No significant growth No significant growth No significant growth -- -- -- -- IMPRESSION and PLAN: 67 year old female s/p right femoral endarterectomy and femoral to below the knee popliteal bypass with cryopreserved vein -Continue with pulse/signal checks -Will watch for compartment syndrome of the right lower extremity -Continue rivaroxaban and asa at this time - Keep prevena in place, please reach out if not holding suction - Will require abx for at least 2 week post-op given risk of infection - Ok for herzog to be removed today - Ordered post-op PT/OT The patient was discussed with Dr. Rosas. Adam Penn MD General Surgery Resident, PGY-3 Vascular Surgery - Heart and Vascular [place] 01/20/2023 Associated attestation - Willian Rosas MD - 01/20/2023 10:48 AM EST I saw and evaluated the patient today. I have reviewed the trainee note and agree. Right foot pain is significantly improved. Multiphasic signal distally, right foot is warm and well-perfused. Discussed the importance of ongoing gentle compression from the toes to the level just [id number]. We discussed the nature of reperfusion edema after surgery such as this. We will need to be somewhat aggressive with antibiotic therapy for her soft tissue infection, given the recent implantation of a bioprosthetic bypass graft. Okay to get out of bed and ambulate. Okay to resume Xarelto and aspirin as she takes at home. The importance of statin therapy was discussed, including the pleiotropic effects of statins in vascular disease. We discussed the importance of groin wound care w ith daily dry gauze dressing over the groin incision once the Prevena is removed. Willian Rosas MD Associate Vascular Surgeon Division of Vascular and Endovascular Surgery [facility] * Care Plan - Lakia Kitchen RN - 01/20/2023 12:44 AM EST Clinical Goal(s): patient will remain free from injury (01/19/23 173) Possible barriers to meeting goal(s)/advancing plan of care: NA Stability of the patient: Moderately stable - low risk of patient condition declining or worsening Summary regarding today's goal(s): Met: pt remained free from injury Recommendations: continue fall precautions * Progress Notes - Non-Billable - Shanna Mathew MD - 01/19/2023 4:46 PM EST VASCULAR SURGERY POSTOPERATIVE PROGRESS NOTE [facility] [address] Name: Mariia Liao Location: OR [facility] Date: 01/19/2023 Time: 4:46 PM Status Post: Right common femoral artery to below knee [...] films and imaging related to the procedure SUBJECTIVE: No acute events postop, patient is resting comfortably. Pain is well-controlled. Statesher right foot feels better currently. OBJECTIVE: Most Recent Vital Signs: BP: 134 mmHg/76 mmHg (01/19/23 163) Pulse: 96 (01/19/23 163) Temp: 36.22 C (01/19/23 1611) Resp: 19 (01/19/23 163) SpO2: 92 % (01/19/231629) Vital Signs Last 24 Hours: Most Recent Systolic BP Av.8 mmHg Min: 73 mmHg Max: 143 mmHg Most Recent Temperature Av.5 C Min: 36.11 C Max: 36.89 C Pulse Av.1 Min: 86 Max: 102 Resp Av.6 Min: 14 Max: 20 SpO2 Av.3 % Min: 89 % Max: 100 % Intake/Output Summary (Last 24 hours) at 01/19/2023 1646 Last data filed at 01/19/2023 1503 Gross per 24 hour Intake 2100 ml Output 2360 ml Net -260 ml Physical Exam: Constitutional: No acute distress. Lying in bed comfortably. HEENT: Normocephalic, atraumatic. Cardiac: Normal sinus rhythm. Resp: Satting well on room air. Extremities: Right lower extremity with Prevena in place to the right groin, JONATHAN to the right lowerextremity. Neuro: Gross sensation and motor function intact bilaterally. Vascular: PT signal present on the right. LABS: Lab results within last 7 days (see chart for full results) Units 01/19/23 0458 01/19/23 0028 01/18/23 2302 WBC K/uL 8.13 9.84 8.51 HGB g/dL 11.8* 11.6* 11.5* PLT K/uL 193 191 187 Sodium mmol/L 136 -- 136 Potassium mmol/L 4.8 -- 4.8 Chloride mmol/L 105 -- 105 CO2 mmol/L 21* -- 20* BUN mg/dL 13 -- 15 Creatinine mg/dL 0.9 -- 0.9 Calcium mg/dL 8.1* -- 7.8* Recent Cultures (2 Weeks) 01/19/2023 12/08/2022 11/28/2022 11/17/2022 06/08/2017 01/21/2013 01/08/2013 04/22/2011 12:28 AM 4:04 PM 10:48 AM 12:47 PM 5:08 PM 2:08 PM 2:19 PM 3:00 PM SPECIMEN DESCRIPTION -- -- -- -- CLEAN CATCH URINE LEFT AURICLE PIERCING DRAINAGE SWAB LEFT AURICULAR CARTILAGE ASPIRATE SWAB VAGINAL LEFT AURICULAR CARTILAGE ASPIRATE SWAB CULTURE -- -- -- -- LESS THAN 10,000 COLONIES/ML MIXED NORMAL TRISTAN MODERATE GROWTH NORMAL SKIN TRISTAN LIGHT GROWTH NORMAL SKIN TRISTAN -- BLOOD CULTURE GROWTH No growth to date -- -- -- -- -- -- -- No growth to date QUANT URINE CULTURE GROWTH -- No significant growth No significant growth No significant growth -- -- -- -- IMPRESSION and PLAN: 67 year old female s/p right femoral endarterectomy and femoral to below the knee popliteal bypass with cryopreserved vein -OK for diet at this time -Continue with pulse/signal checks -Will watch for compartment syndrome of the right lower extremity -OK for rivaroxaban and asa at this time Shanna Mathew MD Vascular Surgery Fellow * Communication - Debbi Broderick MD - 01/19/2023 2:38 PM EST Brief communication I made multiple attempts to see this patient. First was off for CT scan and then to the OR. Still in the OR. Was unable to see the patient today. * Progress Notes - Non-Billable - Onur Ziegler DO - 01/19/2023 1:06 PM EST BRIEF ATTENDING NOTE The patient was not available today. Will leave prelim recs based on chart review. Plan to see the patient on 01/20. HPI The patient was admitted 01/18/2023 for LE pain that began a few days prior and occurred in the context of known DM, obesity and PAD/CAD. The patient was seen by Vascular Surgery and they took the patient for revascularization. ID was consulted due to concern for concurrent ceullulitis in the setting of multiple ABX allergies. Blood cultures are NGTD. The patient is being treated with vancomycin and meropenem. CURRENT ABX DOSING INFO Body mass index is 35.87 kg/m. Serum creatinine: 0.9 mg/dL 01/19/23 0458 Estimated creatinine clearance: 85.4 mL/min IMPRESSION Multiple ABX allergies SSTI RECOMMENDATIONS Continue IV vanco, dosed per PK Continue IV meropenem, 500mg q6h (adjust for CrCl PRN) Follow up cx & adjust ABX PRN Final ABX plan TBD If condition deteriorates, page ID * Communication - Onur Ziegler DO - 01/19/2023 1:05 PM EST I attempted to see the patient but the patient was not available. Onur Ziegler DO Infectious Diseases * Communication - Onur Ziegler DO - 01/19/2023 11:23 AM EST I attempted to see the patient but the patient was not available. Onur Ziegler DO Infectious Diseases * Communication - Onur Ziegler DO - 01/19/2023 9:58 AM EST I attempted to see the patient but the patient was not available. Onur Ziegler DO Infectious Diseases * Medical Necessity - Maki Minor RN - 01/19/2023 1:19 AM EST AdmissionCare Guideline: Vascular Disease, Inpatient Based on the indications selected for the patient, the bed status of Admit to Inpatient was determined to be MET The following indications were selected as present at the time of evaluation of the patient: Urgent inpatient anticoagulation needed (eg, close clinical monitoring necessary), as indicated by 1 or more of the following: - - Chronic limb-threatening ischemia (also known as "critical limb ischemia") Additional Information: Transfer from outside hospital where she initially sent him reporting bilateral lower extremity pain over the past 2 days. Found to have absent pulses in the right lower extremity and underwent ultrasound concerning for ischemic right lower extremity sent here for vascular evaluation. No other complaints. Vasular surgery recs NPO at midnight. Heparin IV NSS IV bolus x 2 AdmissionCare documentation entered by: Maki Minor [facility], 27th edition, Copyright 2022 [facility], [employer] All Rights Reserved. [id number]:[id number]:00 Solely for purpose of utilization review and payment; not a diagnostic tool * Communication - Ermias Hernandez RN - 01/19/2023 12:34 AM EST Hand-Off - Nurse Communication Note Name: Mariia Liao Location: Date: 01/19/2023 Time: 12:34 AM Sending to: GP2 Safety Concerns: Fall Risk Allergies: Nickel, Cephalexin, Doxepin, Dust, Paroxetine, Penicillins, and Sulfa antibiotics Code Status: Full Code Discussion of adv directives occurred with - adult: Patient Isolation: None Isolation flowsheet: Special Needs: Special Needs comments: Attention to: GP2 Nurse Report from: Ermias Hernandez RN Phone extension: [phone] Patient arriving via: Stretcher Reason for SBAR handoff: Admission Situation/Background Admission date: 01/18/2023 Patient Service: Medicine Admit 2 [[id number]] Attending Provider: Christopher Owen MD Admitting diagnosis: Cellulitis Chief Complaint: transfer of records ([facility]) and Cellulitis (Right foot) Problem list: Principal Problem: Acute lower limb ischemia Active Problems: GENERALIZED ANXIETY DIS Dyslipidemia, goal LDL below 100 Type 2 diabetes mellitus with diabetic nephropathy (HCC) Type 2 diabetes mellitus with hemoglobin A1c goal of less than 8.0% (HCC) CAD (coronary artery disease) Heart failure, systolic, due to CAD Diabetic retinopathy, nonproliferative, moderate (HCC) COPD, group A, by GOLD 2017 classification ([facility]) Resolved Problems: * No resolved hospital problems. * Level of Care: Med Surg [3] Assessment Vital Signs: BP: 74/44 (01/18/235) Temp: 36.6 C (97.9 F) (01/18/232250) Pulse: 92 (01/18/232299) Resp: 17 (01/18/232299) SpO2: 95 % (01/18/232299) Weight: 113.4 kg (250 lb) (01/18/232250) Fall Scale: Fall Score: 60 (01/18/232299) Fall Interventions: Bed at low level;Yellow armband applied/intact and on patient;Fall risk sign above bed;Fall risk sign outside room;Floor free of clutter;Non-skid foot covering on;Reoriented patient;Walk path free of obstacles (01/18/232299) Neurological: [place] Coma Scale Eyes Open: Spontaneous (01/18/232302) Best Verbal Response: Verbally appropriate for age (01/18/232302) Best Motor Response: Obeys commands appropriate for age (01/18/232302) Coma Score: 15 (01/18/232302) Additional Neurological Information: Respiratory: Oxygen therapy/ Mechanical vent O2 flow rate: 2 L/MIN (01/18/232250) Supplemental O2 Delivery: Nasal Cannula (01/18/232250) O2 flow rate: 2 L/MIN (01/18/232250) Additional Respiratory Information: Cardiac: Additional Cardiac Information: GI/: Additional GI/ Information: Integumentary: Additional Integumentary Information: Restraints: No orders of the defined types were placed in this encounter. Lines: Peripheral Line Right Wrist 18 Gauge (Active) Number of days: 1 Peripheral Line Left Wrist 20 Gauge (Active) Status Capped/Locked;Flushes easily 01/18/232299 Number of days: 1 Labs: Labs This Encounter BASIC METABOLIC PANEL - Abnormal; Notable for the following components: Result Value Ref Range CO2 20 22 - 32 mmol/L Glucose 204 70 - 120 mg/dL Calcium 7.8 8.4 - 10.2 mg/dL All other components within normal limits CBC - Abnormal; Notable for the following components: HGB 11.5 12.0 - 15.3 g/dL All other components within normal limits DIFFERENTIAL, AUTOMATED - Normal CBC WITH WBC DIFFERENTIAL Narrative: The following orders were created for panel order CBC WITH WBC DIFFERENTIAL. Procedure Abnormality Status --------- ------ CBC[[id number]] Abnormal Final result DIFFERENTIAL, AUTOMATED[[id number]] Normal Final result Please view results for these tests on the individual orders. TYPE AND SCREEN ABO/RH CULTURE, BLOOD CULTURE, BLOOD PT INR APTT CBC HEPARIN, UNFRACTIONATED GLUCOSE METER, POINT OF CARE (COMMUNICATION ORDER) GLUCOSE METER, POINT OF CARE (COMMUNICATION ORDER) GLUCOSE METER, POINT OF CARE (COMMUNICATION ORDER) GLUCOSE METER, POINT OF CARE (COMMUNICATION ORDER) GLUCOSE METER, POINT OF CARE (COMMUNICATION ORDER) GLUCOSE METER, POINT OF CARE (COMMUNICATION ORDER) GLUCOSE METER, POINT OF CARE (COMMUNICATION ORDER) Diet: Orders Placed This Encounter Procedures NPO Except Meds Additional Diet Information: Intake and Output: No intake or output data in the 24 hours ending 01/19/23 0034 Patient Belongings and Home Medications Patient Belongings at Bedside Belongings at Bedside: Clothing (01/18/232299) Patient Medications Medications Brought by Patient?: No (01/18/232299) Recommendations/Follow up Goals/Plan of Care: monitor for worsening cellulitis Consults not completed: Anticipated tests/studies/procedures: Medication Reconcilliation completed for this Admission? Yes "Mariia Liao is a 67 year old female with h/o DM, PAD, AR (s/p CABG 04/2022 at OSH) and COPD (4L O2 at nights) who is seen for evaluation and treatment of RLE, c/f ischemia. She reports that shehas been following podiatry for years for a nonhealing RLE wound. A wound nurse evaluates her once a week and recommended that she present to the ED given RLE erythema. Pt reports that she started hav ing worsening RLE over the past 2 days. Has burning pain that shoots proximally. Pain worse with weightbearing and ambulation. She has been able to ambulate with the aid of a cane, which she has requires post CABG. Denies new loss of LE sensation, LE weakness, F/C/N/V, CP, SOB and abd pain. Has never had similar sx in past. Denies recent LE trauma but notes that she chronically has decreased sensation 2/2 to DM. Notes that she chronically has rest pain in B/L LEs. No other complaints. Quit smoking November 2021. On insulin at home. Of note, last seen in vascular clinic at [facility] [place] for leg claudication and was to f/u in 1 year with RANJITH and carotid duplex. She notes that her mud jack nozzleman was going to recommend further vascular evaluation given non-healing RLE wound; has appt with vascular for 01/25" documented in this encounter Plan of Treatment Upcoming Encounters Date Type Department Care Team (Late st Contact Info) Description 01/25/2023 9:30 AM EST Office Visit Vascular Surgery, [facility] [address] [facility] [place] [address] Robert Alejo [facility] [address] [facility] [address] 02/08/2023 1:30 PM EST Office Visit Pharmacy, [facility] [address] [facility] [place] [address] Pharmacist2, [facility] [address] [facility] [place] [address] 2023 3:00 PM EDT Office Visit [facility] Practice [facility] [address] [facility] [address] Jonny [facility]onaldson [facility] [address] [facility] [address] Pending Results Name Type Priority Associated Diagnoses Date /Time CULTURE, BLOOD Lab Routine 01/19/2023 12:28 AM EST CULTURE, BLOOD Lab Routine 01/19/2023 12:28 AM EST Scheduled Orders Name Type Priority Associated Diagnoses Orde r Schedule MRSA SCREEN, PCR Lab Routine One Time for 1 Occurrences starting 01/19/2023 until 01/19/2023 Health Maintenance Due Date Last Done Comments Alpha-1 Antitrypsin 07/27/1973 DXA Scan 08/01/2021 08/01/2016 COVID-19 Vaccine ( season) 2022 01/24/2021, 01/04/2021, 06/03/2020 Mammogram 11/02/2022 11/02/2021, 09/27, 09/11/2019, Additional history exists HbA1c 06/06/2023 12/05/2022, 09/0 03/2021, 06/25/2021, Additional history exists Diabetic Eye [...] 11/15/1994 LUNG CANCER SCREENING - USE SMARTSET [id number] Completed 08/23/2022, 11/10/2020 Influenza Vaccine (FLU shot) Completed , 12/09/2021, 11/10/2020, Additional history exists GARDASIL-HPV IMMUNIZATION SERIES Aged Out No longer eligible based on patient's age to complete this topic MENINGOCOCCAL (MENACTRA/MENVEO) Aged Out No longer eligible based on patient's age to complete this topic documented as of this encounter Medical Devices Implanted Type Area Bed Maker Device Identifier Shelf Expiration Date Model / Serial / Lot Greater Than 80cm, 3mm-8mm Flora, Angiograft Pvd Saphenous Veins, Cryopreserved Implanted:Qty: 1 on 01/19/2023 by Willian Rosas MD at OR [facility] Right: Leg Upper LIFENET 07/29/2026 CV>80 / [id number] / [id number] documented as of this encounter Procedures Procedure Name Priority Date/Time Associated Diagnosis Comments GLUCOSE METER, POINT OF CARE ULICES 01/21/2023 11:50 AM EST VANCOMYCIN RANDOM Routine 01/21/2023 6:4 9 AM EST BASIC METABOLIC PANEL Routine 01/21/2023 6:49 AM EST PT INR Routine 01/21/2023 6:49 AM EST CBC STAT 01/21/2023 6:49 AM EST GLUCOSE METER, POINT OF CARE ULICES 01/21/2023 5:30 AM EST GLUCOSE METER, POINT OF CARE ULICES 01/21/2023 12:35 AM EST GLUCOSE METER, POINT OF CARE ULICES 01/20/2023 5:29 PM EST GLUCOSE METER, POINT OF CARE ULICES 01/20/2023 11:47 AM EST BASIC METABOLIC PANEL Routine 01/20/2023 5:01 AM EST PT INR Routine 01/20/2023 5:01 AM EST CBC STAT 01/20/2023 5:01 AM EST GLUCOSE METER, POINT OF CARE ULICES 01/19/2023 11:04 PM EST BASIC METABOLIC PANEL STAT 01/19/2023 4:44 PM EST CBC STAT 01/19/2023 4:44 PM EST GLUCOSE METER, POINT OF CARE ULICES 01/19/2023 3:53 PM EST VASC PROCEDURE IN VASCULAR ANGIO SUITE Routine 01/19/2023 3:14 PM EST BLOOD GAS WITH CHEMISTRY, POINT OF CARE ULICES 01/19/2023 2:50 PM EST BLOOD GAS WITH CHEMISTRY, POINT OF CARE ULICES 01/19/2023 1:52 PM EST BLOOD GAS WITH CHEMISTRY, POINT OF CARE ULICES 01/19/2023 12:25 PM EST Introduction of Catheter, Aorta 01/19/2023 9:04 AM EST PAD (peripheral artery disease) ([facility]) ENDART DEEP FEMORAL 01/19/2023 9 :04 AM EST PAD (peripheral artery disease) ([facility]) SYNTH BYPASS, FEMORAL-POP 01/19/2023 9:04 AM EST PAD (peripheral artery disease) ([facility]) IMAGING SUPERVISION & INTERPRETATION EXTREMITY VEIN 01/19/2023 9:04 AM EST PAD (peripheral artery disease) ([facility]) APTT STAT 01/19/2023 7:48 AM EST CTA ABD AORTA/FEM RUNOFF W CONTRAST STAT 01/19/2023 6:30 AM EST BASIC METABOLIC PANEL Routine 01/19/2023 4:58 AM EST PT INR Routine 01/19/2023 4:58 AM EST CBC STAT 01/19/2023 4:58 AM EST GLUCOSE METER, POINT OF CARE ULICES 01/19/2023 1:32 AM EST XR FOOT 3 OR MORE VIEWS STAT 01/20/20 12:43 AM EST HEPARIN, UNFRACTIONATED STAT 01/20/20 12:28 AM EST PT INR STAT 01/19/2023 12:28 AM EST CULTURE, BLOOD Routine 01/19/2023 12:28 AM EST CULTURE, BLOOD Routine 01/19/2023 12:28 AM EST APTT STAT 01/19/2023 12:28 AM EST CBC STAT 01/19/2023 12:28 AM EST DIFFERENTIAL, AUTOMATED STAT 01/19/20 11:02 PM EST BASIC METABOLIC PANEL STAT 01/18/2023 11:02 PM EST ABO/RH STAT 01/18/2023 11:02 PM EST TYPE AND SCREEN STAT 01/18/2023 11:02 PM EST CBC STAT 01/18/2023 11:02 PM EST CBC STAT 01/18/2023 11:02 PM EST documented in this encounter Results * (ABNORMAL) GLUCOSE METER, POINT OF CARE (01/21/2023 11:50 AM EST) Glucose Meter 301(H) 70 - 120 mg/dL 01/21/2023 12:05 PM EST [facility] Blood Whole blood specimen / Unknown 01/21/2023 11:50 AM EST 01/21/2023 12:05 PM EST Opal Ponce MD LAB POINT OF CARE TEST DOCKED DEVICE UNSOLICITED RESULTS [facility] [address] [place] [address] * (ABNORMAL) BASIC METABOLIC PANEL (01/21/2023 6:49 AM EST) BUN 12 6 - 20 mg/dL 01/21/2023 7:37 AM EST [facility] Creatinine 0.8 0.5 - 1.0 mg/dL 01/21/2023 7:37 AM EST [facility] Estimated Glomerular Filtration Rate 87 >=60 mL/min 01/21/2023 7:37 AM EST [facility] Comment:eGFR is calculated b ased on the CKD-EPI 2020 equation Sodium 133(L) 135 - 146 mmol/L 01/21/2023 7:37 AM EST [facility] Potassium 4.0 3.5 - 5.1 mmol/L 01/21/2023 7:37 AM EST [facility] Chloride 99 98 - 107 mmol/L 01/21/2023 7:37 AM EST [facility] CO2 25 22 - 32 mmol/L 01/21/2023 7:37 AM EST [facility] Anion Gap 9 7 - 15 mmol/L 01/21/2023 7:37 AM EST [facility] Glucose 260(H) 70 - 120 mg/dL 01/21/2023 7:37 AM EST [facility] Calcium 8.5 8.4 - 10.2 mg/dL 01/21/2023 7:37 AM EST [facility] Blood Venous blood specimen / Unknown Venipuncture / Unknown 01/21/2023 6:49 AM EST 01/21/2023 6:58 AM EST Greer Pond PA-C LAB BLOOD ORDE RABMARIO Performing Organization Address City/[facility]/ZIP Co de Phone Number LABORATORY [facility] [address], [place] [id number] * PT INR (01/21/2023 6:49 AM EST) Prothrombin Time 13.0 11.6 - 15.2 seconds 01/21/2023 7:22 AM EST [facility] INR 1.0 0.8 - 1.2 01/21/2023 7:22 AM EST LABORATORY C Blood Venous blood specimen / Unknown Venipuncture / Unknown 01/21/2023 6:49 AM EST 01/21/2023 6:58 AM EST Narrative [facility] - 01/21/2023 7:22 AM EST Warfarin Therapy INR: 2.0-3.0 conventional anticoagulation INR: 2.5-3.5 high intensity anticoagulation Susi Peralta DO LAB BLOOD ORDERABLES LABORATORY [facility] [address] [place] [address] * (ABNORMAL) CBC (01/21/2023 6:49 AM EST) WBC 7.92 4.00 - 10.80 K/uL 01/21/2023 7:10 AM EST [facility] RBC 3.95 3.85 - 5.15 M/uL 01/21/2023 7:10 AM EST [facility] HGB 10.2(L) 12.0 - 15.3 g/dL 01/21/2023 7:10 AM EST [facility] HCT 34.5(L) 36.0 - 45.2 % 01/21/2023 7:10 AM EST [facility] MCV 87.3 81.5 - 97.5 fL 01/21/2023 7:10 AM EST [facility] MCH 25.8 27.0 - 34.0 pg 01/21/2023 7:10 AM EST [facility] MCHC 29.6 32.0 - 36.0 g/dL 01/21/2023 7:10 AM EST [facility] RDW 17.8 11.5 - 15.5 % 01/21/2023 7:10 AM EST [facility] PLT 193 140 - 400 K/uL 01/21/2023 7:10 AM EST [facility] MPV 10.4 6.6 - 11.1 fL 01/21/2023 7:10 AM EST [facility] nRBCs 0 <=0 /100 WBCs 01/21/2023 7:10 AM EST [facility] Blood Venous blood specimen / Unknown Venipuncture / Unknown 01/21/2023 6:49 AM EST 01/21/2023 6:59 AM EST Susi Peralta DO LAB BLOOD ORDERABLES LABORATORY [facility] [address] [place] [address] * VANCOMYCIN RANDOM (01/21/2023 6:49 AM EST) Vancomycin Random 15.6 10.0 - 40.0 ug/mL 01/21/2023 7:37 AM EST [facility] Blood Venous blood specimen / Unknown Venipuncture / Unknown 01/21/2023 6:49 AM EST 01/21/2023 6:58 AM EST Opal Ponce MD LAB BLOOD ORDERABL ES Performing Organization Address City/[facility]/ZIP Co de Phone Number LABORATORY [facility] [address] [place] [address] * (ABNORMAL) GLUCOSE METER, POINT OF CARE (01/21/2023 5:30 AM EST) Glucose Meter 266(H) 70 - 120 mg/dL 01/21/2023 5:33 AM EST [facility] Blood Whole blood specimen / Unknown 01/21/2023 5:30 AM EST 01/21/2023 5:33 AM EST Opal Ponce MD LAB POINT OF CARE TEST DOCKED DEVICE UNSOLICITED RESULTS [facility] [address] [place] [address] * (ABNORMAL) GLUCOSE METER, POINT OF CARE (01/21/2023 12:35 AM EST) Glucose Meter 376(H) 70 - 120 mg/dL 01/21/2023 12:41 AM EST [facility] Blood Whole blood specimen / Unknown 01/21/2023 12:35 AM EST 01/21/2023 12:41 AM EST Opal Ponce MD LAB POINT OF CARE TEST DOCKED DEVICE UNSOLICITED RESULTS Performing Organization Address City/[facility]/ZIP Co de Phone Number [facility] [address] [place] [address] * (ABNORMAL) GLUCOSE METER, POINT OF CARE (01/20/2023 5:29 PM EST) Glucose Meter 363(H) 70 - 120 mg/dL 01/20/2023 6:09 PM EST [facility] Blood Whole blood specimen / Unknown 01/20/2023 5:29 PM EST 01/20/2023 6:09 PM EST Opal Ponce MD LAB POINT OF CARE TEST DOCKED DEVICE UNSOLICITED RESULTS Performing Organization Address City/[facility]/ZIP Co de Phone Number [facility] [address] [place] [address] * (ABNORMAL) GLUCOSE METER, POINT OF CARE (01/20/2023 11:47 AM EST) Glucose Meter 352(H) 70 - 120 mg/dL 01/20/2023 1:13 PM EST [facility] Blood Whole blood specimen / Unknown 01/20/2023 11:47 AM EST 01/20/2023 1:13 PM EST Opal Ponce MD LAB POINT OF CARE TEST DOCKED DEVICE UNSOLICITED RESULTS [facility] [address] [place] [address] * (ABNORMAL) BASIC METABOLIC PANEL (01/20/2023 5:01 AM EST) BUN 12 6 - 20 mg/dL 01/20/2023 5:43 AM EST [facility] Creatinine 0.7 0.5 - 1.0 mg/dL 01/20/2023 5:43 AM EST [facility] Estimated Glomerular Filtration Rate >90 >=60 mL/min 01/20/2023 5:43 AM EST [facility] Comment:eGFR is calculated b ased on the CKD-EPI 2020 equation Sodium 131(L) 135 - 146 mmol/L 01/20/2023 5:43 AM EST [facility] Potassium 4.4 3.5 - 5.1 mmol/L 01/20/2023 5:43 AM EST [facility] Chloride 98 98 - 107 mmol/L 01/20/2023 5:43 AM EST [facility] CO2 23 22 - 32 mmol/L 01/20/2023 5:43 AM EST [facility] Anion Gap 10 7 - 15 mmol/L 01/20/2023 5:43 AM EST [facility] Glucose 270(H) 70 - 120 mg/dL 01/20/2023 5:43 AM EST [facility] Calcium 8.5 8.4 - 10.2 mg/dL 01/20/2023 5:43 AM EST [facility] Blood Venous blood specimen / Unknown Venipuncture / Unknown 01/20/2023 5:01 AM EST 01/20/2023 5:17 AM EST Greer Pond PA-C LAB BLOOD FADUMO COLMENARES Performing Organization Address [facility]/ZIP Co de Phone Number LABORATORY [facility] [address] [place] [address] * PT INR (01/20/2023 5:01 AM EST) Prothrombin Time 13.9 11.6 - 15.2 seconds 01/20/2023 5:40 AM EST [facility] INR 1.1 0.8 - 1.2 01/20/2023 5:40 AM EST [facility] Blood Venous blood specimen / Unknown Venipuncture / Unknown 01/20/2023 5:01 AM EST 01/20/2023 5:17 AM EST Narrative [facility] - 01/20/2023 5:40 AM EST Warfarin Therapy INR: 2.0-3.0 conventional anticoagulation INR: 2.5-3.5 high intensity anticoagulation Susi Peralta DO LAB BLOOD ORDERABLES Performing Organization Address [facility] de Phone Number LABORATORY [facility] [address] [place] [address] * (ABNORMAL) CBC (01/20/2023 5:01 AM EST) Pathologist [facility] WBC 9.47 4.00 - 10.80 K/uL 01/20/2023 5:29 AM EST [facility] RBC 3.92 3.85 - 5.15 M/uL 01/20/2023 5:29 AM EST [facility] HGB 10.1(L) 12.0 - 15.3 g/dL 01/20/2023 5:29 AM EST [facility] HCT 34.5(L) 36.0 - 45.2 % 01/20/2023 5:29 AM EST [facility] MCV 88.0 81.5 - 97.5 fL 01/20/2023 5:29 AM EST [facility] MCH 25.8 27.0 - 34.0 pg 01/20/2023 5:29 AM EST [facility] MCHC 29.3 32.0 - 36.0 g/dL 01/20/2023 5:29 AM EST [facility] RDW 17.6 11.5 - 15.5 % 01/20/2023 5:29 AM EST LABORATORY [facility] PLT 206 140 - 400 K/uL 01/20/2023 5:29 AM EST LABORATORY [facility] MPV 10.8 6.6 - 11.1 fL 01/20/2023 5:29 AM EST LABORATORY [facility] nRBCs 0 <=0 /100 WBCs 01/20/2023 5:29 AM EST LABORATORY [facility] Blood Venous blood specimen / Unknown Venipuncture / Unknown 01/20/2023 5:01 AM EST 01/20/2023 5:17 AM EST Susi Peralta DO LAB BLOOD ORDERABLES LABORATORY [facility] [address] [place] [address] * (ABNORMAL) GLUCOSE METER, POINT OF CARE (01/19/2023 11:04 PM EST) Glucose Meter 265(H) 70 - 120 mg/dL 01/20/2023 5:42 AM EST [facility] Blood Whole blood specimen / Unknown 01/19/2023 11:04 PM EST 01/20/2023 5:41 AM EST Opal Ponce MD LAB POINT OF CARE TEST DOCKED DEVICE UNSOLICITED RESULTS [facility] [address] [place] [address] * (ABNORMAL) BASIC METABOLIC PANEL (01/19/2023 4:44 PM EST) BUN 12 6 - 20 mg/dL 01/19/2023 5:51 PM EST [facility] Creatinine 0.7 0.5 - 1.0 mg/dL 01/19/2023 5:51 PM EST LABORATORY [facility] Estimated Glomerular Filtration Rate >90 >=60 mL/min 01/19/2023 5:51 PM EST LABORATORY [facility] Comment:eGFR is calculated b ased on the CKD-EPI 2020 equation Sodium 136 135 - 146 mmol/L 01/19/2023 5:51 PM EST [facility] Potassium 5.1 3.5 - 5.1 mmol/L 01/19/2023 5:51 PM EST [facility] Chloride 102 98 - 107 mmol/L 01/19/2023 5:51 PM EST [facility] CO2 19(L) 22 - 32 mmol/L 01/19/2023 5:51 PM EST [facility] Anion Gap 15 7 - 15 mmol/L 01/19/2023 5:51 PM EST [facility] Glucose 267(H) 70 - 120 mg/dL 01/19/2023 5:51 PM EST [facility] Calcium 8.3(L) 8.4 - 10.2 mg/dL 01/19/2023 5:51 PM EST [facility] Blood Venous blood specimen / Unknown Venipuncture / Unknown 01/19/2023 4:44 PM EST 01/19/2023 4:49 PM EST Shanna Mathew MD LAB BLOOD ORDERABLES Performing Organization Address City/State/[facility] Co de Phone Number LABORATORY [facility] [address] [place] [address] * (ABNORMAL) CBC (01/19/2023 4:44 PM EST) WBC 9.40 4.00 - 10.80 K/uL 01/19/2023 4:56 PM EST [facility] RBC 4.11 3.85 - 5.15 M/uL 01/19/2023 4:56 PM EST [facility] HGB 10.6(L) 12.0 - 15.3 g/dL 01/19/2023 4:56 PM EST [facility] HCT 36.0 36.0 - 45.2 % 01/19/2023 4:56 PM EST [facility] MCV 87.6 81.5 - 97.5 fL 01/19/2023 4:56 PM EST [facility] MCH 25.8 27.0 - 34.0 pg 01/19/2023 4:56 PM EST [facility] MCHC 29.4 32.0 - 36.0 g/dL 01/19/2023 4:56 PM EST [facility] RDW 17.3 11.5 - 15.5 % 01/19/2023 4:56 PM EST [facility] PLT 179 140 - 400 K/uL 01/19/2023 4:56 PM EST LABORATORY [facility] MPV 9.6 6.6 - 11.1 fL 01/19/2023 4:56 PM EST LABORATORY [facility] nRBCs 0 <=0 /100 WBCs 01/19/2023 4:56 PM EST LABORATORY [facility] Blood Venous blood specimen / Unknown Venipuncture / Unknown 01/19/2023 4:44 PM EST 01/19/2023 4:48 PM EST Shanna Mathew MD LAB BLOOD ORDERABLES LABORATORY [facility] [address] [place] [address] * (ABNORMAL) GLUCOSE METER, POINT OF CARE (01/19/2023 3:53 PM EST) Glucose Meter 250(H) 70 - 120 mg/dL 01/19/2023 3:55 PM EST [facility] Blood Whole blood specimen / Unknown 01/19/2023 3:53 PM EST 01/19/2023 3:55 PM EST Debbi Broderick MD LAB POINT OF CARE TE ST DOCKED DEVICE UNSOLICITED RESULTS [facility] [address] [place] [address] * VASC PROCEDURE IN VASCULAR ANGIO SUITE (01/19/2023 3:14 PM EST) Narrative Scheduling, Silent - 01/19/2023 3:15 PM EST This procedure will not be read by a Radiologist. Please see operative note. Willian Rosas MD [facility] * (ABNORMAL) BLOOD GAS WITH CHEMISTRY, POINT OF CARE (01/19/2023 2:50 PM EST) Draw Site Arterial Draw 01/20/2023 8:14 AM EST [facility] pH i-STAT 7.300(L) 7.350 - 7.450 01/20/2023 8:14 AM EST [facility] pCO2 i-STAT 45.7(H) 35.0 - 45.0 mm Hg 01/20/2023 8:14 AM EST [facility] pO2 i-STAT 89 75 - 100 mm Hg 01/20/2023 8:14 AM EST [facility] Base Excess i-STAT -4(L) -2 - 2 mmol/L 01/20/2023 8:14 AM EST [facility] Bicarbonate i-STAT 22.5(L) 23.0 - 31.0 mmol/L 01/20/2023 8:14 AM EST [facility] O2 Saturation i-STAT 96.0 94.0 - 98.0 % 01/20/2023 8:14 AM EST [facility] Glucose i-STAT 266(H) 70 - 120 mg/dL 01/20/2023 8:14 AM EST [facility] Potassium i-STAT 5.0 3.5 - 5.1 mmol/L 01/20/2023 8:14 AM EST [facility] Sodium i-STAT 136 135 - 146 mmol/L 01/20/2023 8:14 AM EST [facility] Calcium Ionized i-STAT 1.13 1.13 - 1.32 mmol/L 01/20/2023 8:14 AM EST [facility] Hemoglobin i-STAT 10.9(L) 12.0 - 15.3 g/dL 01/20/2023 8:14 AM EST [facility] Hematocrit i-STAT 32(L) 36 - 45 % 01/20/2023 8:14 AM EST [facility] FiO2 75 % 01/20/2023 8:14 AM [facility] Arterial Draw 01/19/2023 2:5 0 PM EST 01/20/2023 8:13 AM EST Opal Ponce MD LAB POINT OF CARE TEST DOCKED DEVICE UNSOLICITED RESULTS [facility] [address] [place] [address] * (ABNORMAL) BLOOD GAS WITH CHEMISTRY, POINT OF CARE (01/19/2023 1:52 PM EST) Draw Site Arterial Draw 01/20/2023 8:13 AM [facility] pH i-STAT 7.307(L) 7.350 - 7.450 01/20/2023 8:13 AM [facility] pCO2 i-STAT 45.7(H) 35.0 - 45.0 mm Hg 01/20/2023 8:13 AM [facility] pO2 i-STAT 67(L) 75 - 100 mm Hg 01/20/2023 8:13 AM [facility] Base Excess i-STAT -3(L) -2 - 2 mmol/L 01/20/2023 8:13 AM [facility] Bicarbonate i-STAT 22.8(L) 23.0 - 31.0 mmol/L 01/20/2023 8:13 AM [facility] O2 Saturation i-STAT 91.0(L) 94.0 - 98.0 % 01/20/2023 8:13 AM [facility] Glucose i-STAT 268(H) 70 - 120 mg/dL 01/20/2023 8:13 AM [facility] Potassium i-STAT 5.3(H) 3.5 - 5.1 mmol/L 01/20/2023 8:13 AM [facility] Sodium i-STAT 136 135 - 146 mmol/L 01/20/2023 8:13 AM [facility] Calcium Ionized i-STAT 1.13 1.13 - 1.32 mmol/L 01/20/2023 8:13 AM [facility] Hemoglobin i-STAT 10.9(L) 12.0 - 15.3 g/dL 01/20/2023 8:13 AM [facility] Hematocrit i-STAT 32(L) 36 - 45 % 01/20/2023 8:13 AM [facility] FiO2 65 % 01/20/2023 8:13 AM [facility] Arterial Draw 01/19/2023 1:5 2 PM EST 01/20/2023 8:13 AM EST Opal Ponce MD LAB POINT OF CARE TEST DOCKED DEVICE UNSOLICITED RESULTS [facility] [address] [place] [address] * (ABNORMAL) BLOOD GAS WITH CHEMISTRY, POINT OF CARE (01/19/2023 12:25 PM EST) Draw Site Arterial Draw 01/20/2023 8:15 AM EST [facility] pH i-STAT 7.261(L) 7.350 - 7.450 01/20/2023 8:15 AM EST [facility] [employer] [facility] pCO2 i-STAT 41.6 35.0 - 45.0 mm Hg 01/20/2023 8:15 AM EST [facility] pO2 i-STAT 76 75 - 100 mm Hg 01/20/2023 8:15 AM [facility] Base Excess i-STAT -8(L) -2 - 2 mmol/L 01/20/2023 8:15 AM EST [facility] Bicarbonate i-STAT 18.7(L) 23.0 - 31.0 mmol/L 01/20/2023 8:15 AM [facility] [employer] [facility] O2 Saturation i-STAT 93.0(L) 94.0 - 98.0 % 01/20/2023 8:15 AM [facility] Glucose i-STAT 209(H) 70 - 120 mg/dL 01/20/2023 8:15 AM [facility] Potassium i-STAT 4.2 3.5 - 5.1 mmol/L 01/20/2023 8:15 AM [facility] Sodium i-STAT 140 135 - 146 mmol/L 01/20/2023 8:15 AM [facility] [employer] [facility] Calcium Ionized i-STAT 1.01(L) 1.13 - 1.32 mmol/L 01/20/2023 8:15 AM [facility] Hemoglobin i-STAT 10.5(L) 12.0 - 15.3 g/dL 01/20/2023 8:15 AM [facility] [email or web address] Hematocrit i-STAT 31(L) 36 - 45 % 01/20/2023 8:15 AM [facility] [employer] ConnectST[facility]Y [email or web address], [facility] FiO2 65 % 01/20/2023 8:15 AM [facility] Arterial Draw 01/19/2023 12: 25 PM EST 01/20/2023 8:15 AM EST Opal Ponce MD LAB POINT OF CARE TEST DOCKED DEVICE UNSOLICITED RESULTS [facility] [address] [place] [address] * APTT (01/19/2023 7:48 AM EST) aPTT 34 21 - 38 seconds 01/19/2023 8:55 AM EST LABORATORY [facility] Blood Venous blood specimen / Unknown Venipuncture / Unknown 01/19/2023 7:48 AM EST 01/19/2023 8:14 AM EST Narrative LABORATORY [facility] - 01/19/2023 8:55 AM EST Anticoagulation may affect testing. Refer to [facility] Test Catalog for a list of effects. Debbi Broderick MD LAB BLOOD ORDERABLES LABORATORY [facility] [address] [place] [address] * CTA ABD AORTA/FEM RUNOFF W CONTRAST (01/19/2023 6:30 AM EST) Anatomical Region Laterality Modality Abdomen, Pelvis, Body, Lower Extremity Computed Tomography 01/19/2023 1:06 PM EST Impressions 01/19/2023 4:33 PM EST IMPRESSION 1. Severe atherosclerotic disease throughout the abdomen and pelvis and lower extremities. Heavy bilateral common femoral to proximal anterior tibial/posterior tibial/peroneal artery atheromatous disease. Near complete loss of distal three-vessel runoff bilaterally. Large amount of calcified atherosclerotic disease throughout abdomen and lower extremities limits contrast visualization in vessel lumens. 2. Left abdominal wall contusion. 3. Left lower lung field pleural thickening. 4. Mild hepatosplenomegaly. I have personally reviewed this examination and agree with the resident/fellow physician's interpretation. Narrative 01/19/2023 4:[address] angiography of the abdomen and pelvis obtained 01/19/2023 6:08 a.m. HISTORY 67-year-old female, concern for right lower extremity ischemia COMPARISON CT chest 11/10/2020. CTA runoff 10/18/2019. TECHNIQUE An initial scan was performed without contrast through the abdomen and pelvis. Following the administration of intravenous contrast, computed tomography was performed through the abdomen and pelvis in the arterial phase. Coronal and sagittal reconstructions were created from the axial data. Three-dimensional reconstructions were performed on a separate workstation. FINDINGS Lines/devices: None. Lungs and pleura: Bibasilar atelectasis. Left lower hemithorax pleural thickening. Right hemidiaphragm elevation. Mediastinum: Cardiomegaly with heavy coronary artery vascular calcifications. CABG postsurgical change. Heavy mitral annulus calcifications. No significant pericardial effusion. Liver: Hepatomegaly. Mild gallbladder fossa fatty infiltration. Bile ducts: Within normal limits status post cholecystectomy. Gallbladder: Cholecystectomy Pancreas: Mildly atrophic. Spleen: Splenomegaly. Adrenal glands: Unremarkable. Kidneys, ureters: Right renal cyst. Symmetric cortical enhancement. No hydronephrosis. Bowel: No bowel obstruction. Grossly symmetric bowel wall enhancement. No abnormal bowel loops. Colonic diverticulosis. Normal appendix. Bladder: Unremarkable. Reproductive: Hysterectomy. Vessels: Severe mixed atheromatous disease. No abdominal aortic aneurysm. Accessory right renal artery. Mild stenosis at the origin of the bilateral internal iliac arteries. Heavy common femoral and superficial femoral atherosclerotic disease causing scattered mild to severe stenosis. Downstream contrast opacification is noted bilaterally with severe bilateral popliteal artery stenosis. Bilateral diminutive proximal three-vessel runoff is noted. Bilateral distal three-vessel runoff is near completely lost from the mid tibia/fibula onwards aside from a small segment of right posterior tibial artery reconstitution at the level of the flexor retinaculum. Abdominopelvic lymph nodes: No lymphadenopathy. Peritoneum and retroperitoneum: No free air or free fluid. Bones: No acute osseous abnormalities are identified.Degenerative changes of the spine. Mild bilateral hip and knee osteoarthritis. Soft tissues: Left anterior abdominal wall cutaneous thickening with subjacent subcutaneous fat stranding. Mild body wall and lower extremity edema. Procedure Note Rupinder Laguerre MD - 01/19/[address] angiography of the abdomen and pelvis obtained 01/19/2023 6:08 a.m. HISTORY 67-year-old female, concern for right lower extremity ischemia COMPARISON CT chest 11/10/2020. CTA runoff 10/18/2019. TECHNIQUE An initial scan was performed without contrast through the abdomen andpelvis. Following the administration of intravenous contrast, computedtomography was performed through the abdomen and pelvis in the arterialphase. Coronal and sagittal reconstructions were created from the axialdata. Three-dimensional reconstructions were performed on a separateworkstation. FINDINGS Lines/devices: None. Lungs and pleura: Bibasilar atelectasis. Left lower hemithorax pleuralthickening. Right hemidiaphragm elevation. Mediastinum: Cardiomegaly with heavy coronary artery vascularcalcifications. CABG postsurgical change. Heavy mitral annuluscalcifications. No significant pericardial effusion. Liver: Hepatomegaly. Mild gallbladder fossa fatty infiltration. Bile ducts: Within normal limits status post cholecystectomy. Gallbladder: Cholecystectomy Pancreas: Mildly atrophic. Spleen: Splenomegaly. Adrenal glands: Unremarkable. Kidneys, ureters: Right renal cyst. Symmetric cortical enhancement. Nohydronephrosis. Bowel: No bowel obstruction. Grossly symmetric bowel wall enhancement.No abnormal bowel loops. Colonic diverticulosis. Normal appendix. Bladder: Unremarkable. Reproductive: Hysterectomy. Vessels: Severe mixed atheromatous disease. No abdominal aortic aneurysm.Accessory right renal artery. Mild stenosis at the origin of thebilateral internal iliac arteries. Heavy common femoral and superficialfemoral atherosclerotic disease causing scattered mild to severe stenosis.Downstream contrast opacification is noted bilaterally with severebilateral popliteal artery stenosis. Bilateral diminutive proximalthree-vessel runoff is noted. Bilateral distal three-vessel runoff isnear completely lost from the mid tibia/fibula onwards aside from a smallsegment of right posterior tibial artery reconstitution at the level ofthe flexor retinaculum. Abdominopelvic lymph nodes: No lymphadenopathy. Peritoneum and retroperitoneum: No free air or free fluid. Bones: No acute osseous abnormalities are identified.Degenerative changesof the spine. Mild bilateral hip and knee osteoarthritis. Soft tissues: Left anterior abdominal wall cutaneous thickening withsubjacent subcutaneous fat stranding. Mild body wall and lower extremityedema. IMPRESSION IMPRESSION 1. Severe atherosclerotic disease throughout the abdomen and pelvis andlower extremities. Heavy bilateral common femoral to proximal anteriortibial/posterior tibial/peroneal artery atheromatous disease. Nearcomplete loss of distal three- vessel runoff bilaterally. Large amount ofcalcified atherosclerotic disease throughout abdomen and lower extremitieslimits contrast visualization in vessel lumens. 2. Left abdominal wall contusion. 3. Left lower lung field pleural thickening. 4. Mild hepatosplenomegaly. I have personally reviewed this examination and agree with the resident/fellow physician's interpretation. Salty Wyman MD RAD CT * (ABNORMAL) BASIC METABOLIC PANEL (01/19/2023 4:58 AM EST) BUN 13 6 - 20 mg/dL 01/19/2023 5:39 AM EST [facility] Creatinine 0.9 0.5 - 1.0 mg/dL 01/19/2023 5:39 AM EST [facility] Estimated Glomerular Filtration Rate 74 >=60 mL/min 01/19/2023 5:39 AM EST [facility] Comment:eGFR is calculated b ased on the CKD-EPI 2020 equation Sodium 136 135 - 146 mmol/L 01/19/2023 5:39 AM EST [facility] Potassium 4.8 3.5 - 5.1 mmol/L 01/19/2023 5:39 AM EST [facility] Chloride 105 98 - 107 mmol/L 01/19/2023 5:39 AM EST [facility] CO2 21(L) 22 - 32 mmol/L 01/19/2023 5:39 AM EST [facility] Anion Gap 10 7 - 15 mmol/L 01/19/2023 5:39 AM EST [facility] Glucose 194(H) 70 - 120 mg/dL 01/19/2023 5:39 AM EST [facility] Calcium 8.1(L) 8.4 - 10.2 mg/dL 01/19/2023 5:39 AM EST [facility] Blood Venous blood specimen / Unknown Venipuncture / Unknown 01/19/2023 4:58 AM EST 01/19/2023 5:07 AM EST Greer Pond PA-C LAB BLOOD [facility]ADUMO [facility] Organization Address City/State/ZIP Co de Phone Number [facility] [address] [place] [address] * PT INR (01/19/2023 4:58 AM EST) Prothrombin Time 12.1 11.6 - 15.2 seconds 01/19/2023 6:07 AM EST [facility] INR 0.9 0.8 - 1.2 01/19/2023 6:07 AM EST [facility] Blood Venous blood specimen / Unknown Venipuncture / Unknown 01/19/2023 4:58 AM EST 01/19/2023 5:07 AM EST [facility] - 01/19/2023 6:07 AM EST Warfarin Therapy INR: 2.0-3.0 conventional anticoagulation INR: 2.5-3.5 high intensity anticoagulation Susi Peralta DO LAB BLOOD ORDERABLES [facility] [address] [place] [address] * (ABNORMAL) CBC (01/19/2023 4:58 AM EST) Pathologist [facility] WBC 8.13 4.00 - 10.80 K/uL 01/19/2023 5:19 AM EST [facility] RBC 4.58 3.85 - 5.15 M/uL 01/19/2023 5:19 AM EST [facility] HGB 11.8(L) 12.0 - 15.3 g/dL 01/19/2023 5:19 AM EST [facility] HCT 40.2 36.0 - 45.2 % 01/19/2023 5:19 AM EST [facility] MCV 87.8 81.5 - 97.5 fL 01/19/2023 5:19 AM EST [facility] MCH 25.8 27.0 - 34.0 pg 01/19/2023 5:19 AM EST [facility] MCHC 29.4 32.0 - 36.0 g/dL 01/19/2023 5:19 AM EST [facility] RDW 17.6 11.5 - 15.5 % 01/19/2023 5:19 AM EST [facility] PLT 193 140 - 400 K/uL 01/19/2023 5:19 AM EST [facility] MPV 9.9 6.6 - 11.1 fL 01/19/2023 5:19 AM EST [facility] nRBCs 0 <=0 /100 WBCs 01/19/2023 5:19 AM EST [facility] Blood Venous blood specimen / Unknown Venipuncture / Unknown 01/19/2023 4:58 AM EST 01/19/2023 5:07 AM EST Susi Peralta DO LAB BLOOD ORDERABLES LABORATORY [facility] [address] [place] [address] * (ABNORMAL) GLUCOSE METER, POINT OF CARE (01/19/2023 1:32 AM EST) [facility] Signature Glucose Meter 199(H) 70 - 120 mg/dL 01/19/2023 1:35 AM EST [facility] Blood Whole blood specimen / Unknown 01/19/2023 1:32 AM EST 01/19/2023 1:35 AM EST Debbi Broderick MD LAB POINT OF CARE TE ST DOCKED DEVICE UNSOLICITED RESULTS Performing Organization Address City/[facility]/ZIP Co de Phone Number [facility] [address] [place] [address] * XR FOOT 3 OR MORE VIEWS (01/19/2023 12:43 AM EST) Anatomical Region Laterality Modality Foot, Lower Extremity Computed R adiography 01/19/2023 8:06 AM EST Impressions 01/19/2023 8:04 AM EST IMPRESSION No definite evidence of osteomyelitis. No significant change from 11/28/2022. Narrative 01/19/2023 8:04 AM EST EXAM Right XR FOOT 3 OR MORE VIEWS-01/19/2023 12:43 am HISTORY Concern for right foot osteomyelitis TECHNIQUE Three views of the right foot COMPARISON Right foot 11/28/2022 FINDINGS Bones are somewhat demineralized overall. There are degenerative changes. There is no fracture or dislocation. There is no definite osteolytic lesion. There is some indistinctness to the base of the 5th metatarsal but this is similar to previously and may be due to generalized demineralization. There is ossification of the Achilles tendon insertion into the calcaneus. Procedure Note Rupinder Laguerre MD - 01/19/2023 EXAM Right XR FOOT 3 OR MORE VIEWS-01/19/2023 12:43 am HISTORY Concern for right foot osteomyelitis TECHNIQUE Three views of the right foot COMPARISON Right foot 11/28/2022 FINDINGS Bones are somewhat demineralized overall. There are degenerative changes.There is no fracture or dislocation. There is no definite osteolyticlesion. There is some indistinctness to the base of the 5th metatarsalbut this is similar to previously and may be due to generalizeddemineralization. There is ossification of the Achilles tendon insertioninto the calcaneus. IMPRESSION IMPRESSION No definite evidence of osteomyelitis. No significant change from11/28/2022. Salty Wyman MD RADIOLOGY (RA D GENERAL) * HEPARIN, UNFRACTIONATED (01/19/2023 12:28 AM EST) Heparin, Unfractionated <0.10 <0.10 IU/mL 01/19/2023 12:51 AM EST [facility] Comment: Unfractionated therapeutic ranges for Anti Xa activity: For Cardiac/Neurologic treatment: 0.3 to 0.6 IU/mL. For treatment of DVT or Pulmonary Embolism: 0.3 to 0.7 IU/mL. Blood Venous blood specimen / Unknown Venipuncture / Unknown 01/19/2023 12:28 AM EST 01/19/2023 12:36 AM EST Susi Peralta DO LAB BLOOD ORDERABLES [facility] [address] [place] [address] * (ABNORMAL) CBC (01/19/2023 12:28 AM EST) WBC 9.84 4.00 - 10.80 K/uL 01/19/2023 12:44 AM EST [facility] RBC 4.47 3.85 - 5.15 M/uL 01/19/2023 12:44 AM EST [facility] HGB 11.6(L) 12.0 - 15.3 g/dL 01/19/2023 12:44 AM EST [facility] HCT 39.6 36.0 - 45.2 % 01/19/2023 12:44 AM EST [facility] MCV 88.6 81.5 - 97.5 fL 01/19/2023 12:44 AM EST LABORATORY [facility] MCH 26.0 27.0 - 34.0 pg 01/19/2023 12:44 AM EST LABORATORY [facility] MCHC 29.3 32.0 - 36.0 g/dL 01/19/2023 12:44 AM EST LABORATORY [facility] RDW 17.7 11.5 - 15.5 % 01/19/2023 12:44 AM EST LABORATORY C PLT 191 140 - 400 K/uL 01/19/2023 12:44 AM EST LABORATORY [facility] MPV 10.8 6.6 - 11.1 fL 01/19/2023 12:44 AM EST LABORATORY [facility] nRBCs 0 <=0 /100 WBCs 01/19/2023 12:44 AM EST LABORATORY [facility] Blood Venous blood specimen / Unknown Venipuncture / Unknown 01/19/2023 12:28 AM EST 01/19/2023 12:36 AM EST Susi Peralta [employer] LAB BLOOD ORDERABLES LABORATORY [facility] [address] [place] [address] * APTT (01/19/2023 12:28 AM EST) aPTT 24 21 - 38 seconds 01/19/2023 12:51 AM EST LABORATORY [facility] Blood Venous blood specimen / Unknown Venipuncture / Unknown 01/19/2023 12:28 AM EST 01/19/2023 12:36 AM EST Narrative LAB[facility] - 01/19/2023 12:51 AM EST Anticoagulation may affect testing. Refer to [employer] Test Catalog for a list of effects. Susi [employer] LAB BLOOD ORDERABLES LABORATORY [facility] [address] [place] [address] * PT INR (01/19/2023 12:28 AM EST) Prothrombin Time 12.2 11.6 - 15.2 seconds 01/19/2023 12:51 AM EST [facility] INR 0.9 0.8 - 1.2 01/19/2023 12:51 AM EST [facility] Blood Venous blood specimen / Unknown Venipuncture / Unknown 01/19/2023 12:28 AM EST 01/19/2023 12:36 AM EST Narrative LAB[facility] - 01/19/2023 12:51 AM EST Warfarin Therapy INR: 2.0-3.0 conventional anticoagulation INR: 2.5-3.5 high intensity anticoagulation Susi Peralta DO LAB BLOOD ORDERABLES [facility] [address] [place] [address] * ABO/RH (01/18/2023 11:02 PM EST) ABO O 01/19/2023 12:12 AM EST LABORATORY [facility] BLOOD BANK Rh Positive 01/19/2023 12:12 AM EST LABORATORY C BLOOD BANK Blood Venous blood specimen / Unknown Venipuncture / Unknown 01/18/2023 11:02 PM EST 01/18/2023 11:08 PM EST Susi Peralta LAB BLOOD BANK TEST ORDERABLES LABORATORY [facility] BLOOD BANK [address] [place] [address] * DIFFERENTIAL, AUTOMATED (01/18/2023 11:02 PM EST) WBC 8.51 4.00 - 10.80 K/uL 01/18/2023 11:17 PM EST [facility] Neutrophils % 71.8 40.0 - 75.0 % 01/18/2023 11:17 PM EST [facility] Lymphocytes % 19.6 18.0 - 42.0 % 01/18/2023 11:17 PM EST [facility] Monocytes % 6.6 1.0 - 11.0 % 01/18/2023 11:17 PM EST [facility] Eosinophils % 1.2 0.0 - 6.0 % 01/18/2023 11:17 PM EST [facility] Basophils % 0.4 0.0 - 2.0 % 01/18/2023 11:17 PM EST [facility] Immature Granulocytes % 0.4 0.0 - 2.0 % 01/18/2023 11:17 PM EST [facility] Absolute Neutrophils 6.12 1.80 - 7.70 K/uL 01/18/2023 11:17 PM EST [facility] Absolute Lymphocytes 1.67 1.00 - 4.80 K/ul 01/18/2023 11:17 PM EST [facility] Absolute Monocytes 0.56 0.00 - 1.10 K/uL 01/18/2023 11:17 PM EST [facility] Absolute Eosinophils 0.10 0.00 - 0.70 K/uL 01/18/2023 11:17 PM EST [facility] Absolute Basophils 0.03 0.00 - 0.20 K/uL 01/18/2023 11:17 PM EST [facility] Absolute Immature Granulocytes 0.03 0.00 - 0.20 K/uL 01/18/2023 11:17 PM EST [facility] Blood Venous blood specimen / Unknown Venipuncture / Unknown 01/18/2023 11:02 PM EST 01/18/2023 11:08 PM EST Susi Peralta DO LAB BLOOD ORDERABLES [facility] [address] [place], [place] [id number] * (ABNORMAL) CBC (01/18/2023 11:02 PM EST) WBC 8.51 4.00 - 10.80 K/uL 01/18/2023 11:17 PM EST [facility] RBC 4.47 3.85 - 5.15 M/uL 01/18/2023 11:17 PM EST [facility] HGB 11.5(L) 12.0 - 15.3 g/dL 01/18/2023 11:17 PM EST [facility] HCT 38.4 36.0 - 45.2 % 01/18/2023 11:17 PM EST [facility] MCV 85.9 81.5 - 97.5 fL 01/18/2023 11:17 PM EST [facility] MCH 25.7 27.0 - 34.0 pg 01/18/2023 11:17 PM EST [facility] MCHC 29.9 32.0 - 36.0 g/dL 01/18/2023 11:17 PM EST [facility] RDW 17.8 11.5 - 15.5 % 01/18/2023 11:17 PM EST [facility] PLT 187 140 - 400 K/uL 01/18/2023 11:17 PM EST [facility] MPV 10.0 6.6 - 11.1 fL 01/18/2023 11:17 PM EST [facility] nRBCs 0 <=0 /100 WBCs 01/18/2023 11:17 PM EST LABORATORY [facility] Blood Venous blood specimen / Unknown Venipuncture / Unknown 01/18/2023 11:02 PM EST 01/18/2023 11:08 PM EST Susi Peralta DO LAB BLOOD ORDERABLES LABORATORY [facility] [address] [place] [address] * TYPE AND SCREEN (01/18/2023 11:02 PM EST) Pathologist [facility] ABO O 01/18/2023 11:48 PM EST LABORATORY [facility] BLOOD BANK Rh Positive 01/18/2023 11:48 PM EST LABORATORY [facility] BLOOD BANK Red Blood Cell Antibody Screen Negative 01/18/2023 11:48 PM EST LABORATORY [facility] BLOOD BANK Specimen Expiration Date 01/21/2023 23:59 01/18/2023 11:48 PM EST LABORATORY [facility] BLOOD BANK Blood Venous blood specimen / Unknown Venipuncture / Unknown 01/18/2023 11:02 PM EST 01/18/2023 11:08 PM EST Susi Peralta LAB BLOOD BANK TEST ORDERABLES Performing Organization Address City/[facility]/ZIP Co de Phone Number LABORATORY [facility] BLOOD BANK [address] [place] [address] * (ABNORMAL) BASIC METABOLIC PANEL (01/18/2023 11:02 PM EST) BUN 15 6 - 20 mg/dL 01/18/2023 11:28 PM EST [facility] Creatinine 0.9 0.5 - 1.0 mg/dL 01/18/2023 11:28 PM EST [facility] Estimated Glomerular Filtration Rate 67 >=60 mL/min 01/18/2023 11:28 PM EST [facility] Comment:eGFR is calculated b ased on the CKD-EPI 2020 equation Sodium 136 135 - 146 mmol/L 01/18/2023 11:28 PM EST [facility] Potassium 4.8 3.5 - 5.1 mmol/L 01/18/2023 11:28 PM EST [facility] Chloride 105 98 - 107 mmol/L 01/18/2023 11:28 PM EST [facility] CO2 20(L) 22 - 32 mmol/L 01/18/2023 11:28 PM EST [facility] Anion Gap 11 7 - 15 mmol/L 01/18/2023 11:28 PM EST [facility] Glucose 204(H) 70 - 120 mg/dL 01/18/2023 11:28 PM EST [facility] Calcium 7.8(L) 8.4 - 10.2 mg/dL 01/18/2023 11:28 PM EST [facility] Blood Venous blood specimen / Unknown Venipuncture / Unknown 01/18/2023 11:02 PM EST 01/18/2023 11:08 PM EST Susi Peralta DO LAB BLOOD ORDERABLES [facility] [address] [place] [address] documented in this encounter Visit Diagnoses Diagnosis Acute lower limb ischemia- Primary Cellulitis Cellulitis and abscess of unspecified site Chest pain Chest pain, unspecified Type 2 diabetes mellitus with diabetic peripheral angiopathy without gangrene (HCC) [E11.51] Type II or unspecified type diabetes mellitus with peripheral circulatory disorders, not stated as uncontrolled Type 2 diabetes mellitus with hyperglycemia (HCC) [E11.65] Type II or unspecified type diabetes mellitus without mention of complication, not stated as uncontrolled Atherosclerosis of [place] arteries of right leg with ulceration of other part of foot (HCC) [I70.235] Non-pressure chronic ulcer of other part of right foot with unspecified severity ([facility]) [L97.519] Cellulitis of right lower limb [L03.115] Morbid (severe) obesity due to excess calories ([facility]) [E66.01] Personal history of nicotine dependence [Z87.891] Personal 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, 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 ([facility]) [Z79.4] COPD, group A, by GOLD 2017 classification ([facility]) GENERALIZED ANXIETY DIS Generalized anxiety disorder CAD (coronary artery disease) Coronary atherosclerosis of unspecified type of vessel, [place] or graft Heart failure, systolic, due to CAD Unspecified systolic heart failure Diabetic retinopathy, nonproliferative, moderate ([facility]) Type II or unspecified type diabetes mellitus with ophthalmic manifestations, not stated as uncontrolled Type 2 diabetes mellitus with diabetic nephropathy ([facility]) Type II or unspecified type diabetes mellitus with renal manifestations, not stated as uncontrolled Type 2 diabetes mellitus with hemoglobin A1c goal of less than 8.0% ([facility]) Dyslipidemia, goal LDL below 100 Other and unspecified hyperlipidemia PAD (peripheral artery disease) ([facility]) Peripheral vascular disease, unspecified Diabetic foot infection Type II or unspecified type diabetes mellitus with other specified manifestations, not stated as uncontrolled documented in this encounter Administered Medications Inactive Administered Medications - up to 3 most recent administrations Medication Order MAR Action Action Date Dose Rate Site Acetaminophen (Tylenol) tab 650 mg 650 mg, Oral, Q6H PRN Pain, Mild, Fever >38C(100.5F), Headache, Starting on Misty 01/19/23 at 0013, Until 01/21/23 at 1811, Maximum of 4 grams (4000 mg) per day. albuterol-ipratropium (Duoneb) inhalation solution 3 mL 3 mL, Nebulizer, ONCE, On Misty 01/19/23 at 0930, For 1 dose, 3 mL = 0.5 mg ipratropium/ 2.5 mg albuterol Given 01/19/2023 9:30 AM EST 3 mL amitriptyline (Elavil) tab 50 mg 50 mg, Oral, Daily(AM), First dose on Misty 01/19/23 at 0900, Until Discontinued Given 01/21/2023 8:11 AM EST 50 mg Given 01/20/2023 9:23 PM EST 50 mg Aprepitant (Emend) cap 40 mg 40 mg, Oral, ONCE, On Misty 01/19/23 at 0930, For 1 dose Given 01/19/2023 9:01 AM EST 40 mg aspirin enteric coated tab 81 mg 81 mg, Oral, Daily(AM), First dose on Misty 01/19/23 at 0900, Until Discontinued, This med should NOT be Crushed or Chewed Given 01/21/2023 8:11 AM EST 81 mg Given 01/20/2023 8:26 AM EST 81 mg Given 01/19/2023 8:00 AM EST 81 mg atorvaSTATin (Lipitor) tab 80 mg 80 mg, Oral, Daily(AM), First dose on Misty 01/19/23 at 0900, Until Discontinued Given 01/21/2023 8:11 AM EST 80 mg Given 01/20/2023 8:26 AM EST 80 mg dextrose 50 % inj 25 mL 25 mL, IV Push, PRN Hypoglycemia, Other, For blood glucose 54 - 69 mg/dL or 70 - 100 mg/dL with symptoms AND patient is unresponsive, NPO, OR unable to swallow, Starting on Misty 01/19/23 at 0012, Until 01/21/23 at 1811, Administer IV. Recheck blood glucose after 15 minutes. Notify provider. dextrose 50 % inj 50 mL 50 mL, IV Push, PRN Hypoglycemia, Other, For blood glucose below 54 mg/dL AND patient unresponsive, NPO, OR unable to swallow, Starting on Misty 01/19/23 at 0012, Until 01/21/23 at 1811, Administer IV. Recheck blood glucose in 15 minutes. Notify provider. Gabapentin (Neurontin) cap 300 mg 300 mg, Oral, BID (.AM/PM), First dose on Misty 01/19/23 at 1200, Until Discontinued Given 01/21/2023 12:23 PM EST 30 0 mg Given 01/20/2023 9:20 PM EST 300 mg Given 01/20/2023 12:14 PM EST 300 mg glucagon (Glucagen) inj 1 mg 1 mg, Intramuscular, PRN Hypoglycemia, Other, If patient is unresponsive, or NPO and has no IV access, Starting on Misty 01/19/23 at 0012, Until 01/21/23 at 1811, NPO and no IV access with either 1) blood glucose less than 100 mg/dL and symptomatic OR 2) blood glucose less than 70 mg/dL and asymptomatic Glucose (Glutose 15) 40 % gel 15 g of glucose 15 g of glucose, Oral, PRN Hypoglycemia (low sugar), Other, For blood glucose 54 - 69 mg/dL or 70 - 100 mg/dL with symptoms AND patient alert WITH difficulty chewing/swallowing, Starting on Misty 01/19/23 at 0012, Until 01/21/23 at 1811, Administer gel. Recheck blood glucose after 15 minutes. Notify provider. 37.5 gram tube = 15 grams glucose = 1 each Glucose (Glutose 15) 40 % gel 30 g of glucose 30 g of glucose, Oral, PRN Hypoglycemia (low sugar), Other, For blood glucose below 54 mg/dL AND patient alert WITH difficulty chewing/swallowing, Starting on Misty 01/19/23 at 0012, Until 01/21/23 at 1811, Administer gel. Recheck blood glucose after 15 minutes. Notify provider. 37.5 gram tube = 15 grams glucose = 1 each glucose chew tab 16 g 16 g, Oral, PRN Hypoglycemia, Other, For blood glucose 54 - 69 mg/dL or 70 - 100 mg/dL with symptoms and patient alert without difficulty chewing/swallowing., Starting on Misty 01/19/23 at 0012, Until 01/21/23 at 1811 hEParin 25,000 units in 250 mL (aPTT-DVT/PE) infusion Intravenous, at 0-25.95 mL/hr, Start heparin as soon as baseline labs are drawn. Please select this medication from the infusion pump library! Concentration: 100 units/mL Expires 96 hours after spiking on (date) at (hour) , TITRATE, Starting on Misty 01/19/23 at 0030, Until Misty 01/19/23 at 1641 Nurse Change 01/19/2023 1:18 AM EST 18 Units/kg/hr 15.57 mL/hr New Bag 01/19/2023 12:31 AM EST 18 Units/kg/hr 15.57 mL /hr home medication stored in pharmacy Daily(AM), First dose on Misty 01/19/23 at 0900, Until Discontinued, Routine, when the patient is ready for discharge contact pharmacy insulin aspart (NovoLOG) inj Subcutaneous, Q6H, First dose on Mon01/19/23 at 0045, Until Discontinued, MEDIUM DOSE (Usual starting dose): Sliding Scale Correctional insulin may be given if the patient is NPO. Dose based on standard build from Insulin Calculator. Do not modify insulin doses in administration instructions! , Glucose less than 70 instructions: Obtain STAT lab blood glucose and call covering provider., Glucose 80-150 (units): 0, Glucose 151-200 (units): 2, Glucose 201-250 (units): 4, Glucose 251-300 (units): 6, Glucose greater than 300 (units): 8, Glucose greater than 300 instructions: Give suggested insulin dose and call covering provider. Given 01/21/2023 12:23 PM EST 8 Units Arm Right Upper Given 01/21/2023 5:38 AM EST 6 Units Ab domen Left Upper Given 01/21/2023 12:44 AM EST 8 Units A rm Right Upper Insulin Glargine (Lantus) inj 50 Units 50 Units, Subcutaneous, HSINSULIN, First dose on Mon01/20/23 at 2200, Until Discontinued, "IF DOSE IS HELD- NOTIFY COVERING PROVIDER!" Given 01/20/2023 9:20 PM EST 50 Units Abdomen Left Upper Ioversol (Optiray 350) 74 % inj 100 mL 100 mL, Intravenous, ONCE, On Mon01/19/23 at 0715, For 1 dose, Radiology Medication Routing (Non-IR) Given 01/19/2023 7:15 AM EST 100 mL isolyte-S pH 7.4 infusion Intravenous, at 50 mL/hr, Plasma-LYTE 148, isolyte-S, and isolyte-S pH 7.4 are considered equivalent - including for MAR barcode scanning., CONTINUOUS, Starting on Mon01/19/23 at 0100, Until Mon01/19/23 at 1059 New Bag 01/19/2023 2:19 AM EST 50 mL/hr magnesium chloride ER (Mag-64) tab 64 mg 64 mg, Oral, DAILY NOON, First dose on Mon01/19/23 at 1200, Until Discontinued Given 01/21/2023 12:24 PM EST 64 mg Given 01/20/2023 12:14 PM EST 64 mg Meropenem (Merrem) 500 mg in 50 ml ivpb three hour infusion 500 mg, IV Piggyback, Q6HNOW, 20 doses, First dose on Mon01/19/23 at 0900, Last dose on Mon01/24/23 at 0030 [facility] 01/21/2023 5:37 AM EST 500 mg 16.67 mL/hr New 01/21/2023 12:44 AM EST 500 mg 16.67 mL/hr 01/20/2023 5:56 PM EST 500 mg 16.67 mL/hr meropenem (Merrem) IVPB 1,000 mg 1,000 mg, IV Piggyback, ONCE, 1 dose, On Mon01/19/23 at 0215 01/19/2023 4:10 AM EST 1,000 mg 1 00 mL/hr metoprolol succinate XL (toPROL XL) tab 25 mg 25 mg, Oral, Daily(AM), First dose on Mon01/19/23 at 0900, Until Discontinued, Hold for HR less than 60 or SBP below 100 and notify service if dose is held This med should NOT be Crushed or Chewed. Given 01/21/2023 8:11 AM EST 25 mg Given 01/20/2023 8:26 AM EST 25 mg NSS 0.9% 1,000 mL bolus infusion Intravenous, at 1,000 mL/hr Administer over 60 Minutes, Wide open, This infusion may be completed in less than 1 hour, since it will be a wide open rate, ONCE, 1 dose, On Mon01/18/23 at 2330 01/18/2023 11:30 PM EST 1,000 mL 1000 mL/hr NSS 0.9% 500 mL bolus infusion Intravenous, at 500 mL/hr Administer over 60 Minutes, Wide open, This infusion may be completed in less than 1 hour, since it will be a wide open rate, ONCE, 1 dose, On Mon01/19/23 at 0015 01/18/2023 11:45 PM EST 500 mL 500 mL/hr oxygen GAS Inhalation, OXYGEN, First dose on Mon01/19/23 at 1630, Until Discontinued, Device/Managed by: Low Flow Device, Goal SPO2 (%): 91-95, Starting Device: Nasal Cannula, Initial Flow Rate (LPM): 2, Lowest Support: Nasal Cannula: Flow 0-6 LPM. Titrate up/down by 1 LPM., Higher Support: Non-Rebreather (NRB) Mask: Minimum of 10 LPM. Titrate to maintain bag inflation., Titration Interval: Q2 minutes and as needed., Notify Provider: Other, Notify Provider [other]: If SpO2 less than 88% or NOT maintaining SpO2 greater than 92% notify physician immediately., Until awake OR SpO2 greater than 95% for 15 minutes, then Titrate O2 flow rate down to maintain SpO2 greater than 92% If SpO2 is less than 88% place patient on NRB mask at 10 LPM Oxygen On 01/19/2023 4:08 PM EST 3 L/min(Oxygen) Rivaroxaban (Xarelto) 1 mg/mL oral suspension 2.5 mg 2.5 mg, Oral, BID (.AM/PM), First dose on Misty 01/19/23 at 2100, Until Discontinued Given 01/21/2023 8:14 AM EST 2.5 mg Given 01/20/2023 9:20 PM EST 2.5 mg Given 01/20/2023 8:27 AM EST 2.5 mg rOPINIRole (Requip) tab 0.5 mg 0.5 mg, Oral, HS, First dose on Misty 01/19/23 at 0045, Until Discontinued Given 01/20/2023 9:20 PM EST 0.5 mg Given 01/19/2023 8:56 PM EST 0.5 mg Given 01/19/2023 2:15 AM EST 0.5 mg sertraline (Zoloft) tab 50 mg 50 mg, Oral, Daily(AM), First dose on Misty 01/19/23 at 0900, Until Discontinued Given 01/21/2023 8:11 AM EST 50 mg Given 01/20/2023 8:26 AM EST 50 mg sodium chloride 0.9 % flush/inj 3 mL 3 mL, IV Push, PRN Other, Line Patency, Starting on Misty 01/19/23 at 0012, Until 01/21/23 at 1811, Do not flush if lock, PICC, or central line not in place, IV infusing or unable to flush traMADol (Ultram) tab 100 mg 100 mg, Oral, Q6H PRN Pain, Severe, Starting on Misty 01/19/23 at 0102, Until 01/21/23 at 1811 Given 01/21/2023 12:58 AM EST 100 mg Given 01/20/2023 1:59 AM EST 100 mg traMADol (Ultram) tab 50 mg 50 mg, Oral, Q6H PRN Pain, Moderate, pain, Starting on Misty 01/19/23 at 0011, Until 01/21/23 at 1811 Given 01/20/2023 7:00 PM EST 50 mg Given 01/20/2023 12:14 PM EST 50 mg Given 01/19/2023 7:44 PM EST 50 mg Vancomycin (Vancocin) 1000 mg in NSS 250 mL ivpb LOCKED DOSE 1,000 mg, IV Piggyback, [id number], First dose on Misty 01/19/23 at 1200, Until Discontinued New Bag 01/21/2023 12:44 AM EST 1,000 mg 275 m L/hr New Bag 01/20/2023 12:36 PM EST 1,000 mg 275 mL/hr New Bag 01/19/2023 11:39 PM EST 1,000 mg 275 mL/hr documented in this encounter Active and Recently Administered Medications Times are shown in EST. Scheduled Medication Order 01/19/2023 01/20/2023 01/21/2023 albuterol-ipratropium (Duoneb) inhalation solution 3 mL (COMPLETED) 3 mL, Nebulizer, ONCE, On Misty 01/19/23 at 0930, For 1 dose, 3 mL = 0.5 mg ipratropium/ 2.5 mg albuterol 0930 (Given - Provider: Lourdes Stringer RN) amitriptyline (Elavil) tab 50 mg 50 mg, Oral, Daily(AM), First dose on Misty 01/19/23 at 0900, Until Discontinued 0900 (Dose Held (per order) - Provider: Guerita Apodaca RN - Comment: held per surgery) 2122 (Given - Provider: Lisseth Garcia RN - Comment: she takes it at nights) 810 (Given - Provider: Sandrita Delgado RN) Aprepitant (Emend) cap 40 mg (COMPLETED) 40 mg, Oral, ONCE, On Misty 01/19/23 at 0930, For 1 dose 0901 (Given - Provider: Lourdes Stringer, YUMI) aspirin enteric coated tab 81 mg 81 mg, Oral, Daily(AM), First dose on Mon01/19/23 at 0900, Until Discontinued, This med should NOT be Crushed or Chewed 08 (Given - Provider: Guerita Apodaca RN) 08 (Given - Provider: Robert Hollis, YUMI) 08 (Given - Provider: Sandrita Delgado, YUMI) atorvaSTATin (Lipitor) tab 80 mg 80 mg, Oral, Daily(AM), First dose on Mon01/19/23 at 0900, Until Discontinued 899 (Dose Held (per order) - Provider: Guerita Apodaca RN - Comment: held per surgery) 825 (Given - Provider: Robert Hollis RN) 810 (Given - Provider: Sandrita Delgado, YUMI) Gabapentin (Neurontin) cap 300 mg 300 mg, Oral, BID (.AM/PM), First dose on Mon01/19/23 at 1200, Until Discontinued 1200 (OR/Procedure - Provider: Nayeli Cramer, YUMI)194 (Given - Provider: Lakia Kitchen, YUMI) 121 (Given - Provider: Robert Hollis, YUMI)212 (Given - Provider: Lisseth Gacria, YUMI) 122 (Given - Provider: Erma Conde, YUMI) home medication stored in pharmacy Daily(AM), First dose on Mon01/19/23 at 0900, Until Discontinued, Routine, when the patient is ready for discharge contact pharmacy 899 (Order Check Addressed - Provider: Guerita Apodaca RN - Comment: held per surgery) 09 (Order Check Addressed - Provider: Robert Hollis RN) 09 (Order Check Addressed - Provider: Sandrita Delgado, YUMI) insulin aspart (NovoLOG) inj Subcutaneous, Q6H, First dose on Mon01/19/23 at 0045, Until Discontinued, MEDIUM DOSE (Usual starting dose): Sliding Scale Correctional insulin may be given if the patient is NPO. Dose based on standard build from Insulin Calculator. Do not modify insulin doses in administration instructions! , Glucose less than 70 instructions: Obtain STAT lab blood glucose and call covering provider., Glucose 80-150 (units): 0, Glucose 151-200 (units): 2, Glucose 201-250 (units): 4, Glucose 251-300 (units): 6, Glucose greater than 300 (units): 8, Glucose greater than 300 instructions: Give suggested insulin dose and call covering provider. 0210 (Given - Provider: Ban Tucker RN)0600 (Not Given - Provider: Guerita Apodaca RN - Reason: Parameter(s) Not Met - Comment: pt not availabble)1200 (OR/Procedure - Provider: Nayeli Cramer, RN)1711 (Given - Provider: Nayeli Cramer, RN)2339 (Given - Provider: Lakia Kitchen, YUMI) 0538 (Given - Provider: Lakia Kitchen, YUMI)1215 (Given - Provider: Robert Hollis, YUMI)1745 (Given - Provider: Robert Hollis, YUMI) 0044 (Given - Provider: Lisseth Garcia, YUMI)0538 (Given - Provider: Lisseth Garcia, YUMI)1223 (Given - Provider: Erma Conde, YUMI) Insulin Glargine (Lantus) inj 50 Units 50 Units, Subcutaneous, HSINSULIN, First dose on Mon01/20/23 at 2200, Until Discontinued, "IF DOSE IS HELD- NOTIFY COVERING PROVIDER!" 2119 (Given - Provider: Lisseth Garcia, YUMI) Ioversol (Optiray 350) 74 % inj 100 mL (COMPLETED) 100 mL, Intravenous, ONCE, On Mon01/19/23 at 0715, For 1 dose, Radiology Medication Routing (Non-IR) 0715 (Given - Provider: Erich Jolly, RT) magnesium chloride ER (Mag-64) tab 64 mg 64 mg, Oral, DAILY NOON, First dose on Mon01/19/23 at 1200, Until Discontinued 1200 (OR/Procedure - Provider: Virgen Cai, YUMI) 1214 (Given - Provider: Robert Hollis RN) 1224 (Given - Provider: Erma Conde, YUMI) Meropenem (Merrem) 500 mg in 50 ml ivpb three hour infusion 500 mg, IV Piggyback, Q6HNOW, 20 doses, First dose on Mon01/19/23 at 0900, Last dose on Mon01/24/23 at 0030 0800 (New Bag - Provider: Guerita Apodaca RN)1827 (New Bag - Provider: Virgen Cai, YUMI)2339 (New Bag - Provider: Lakia Kitchen, RN) 0538 (New Bag - Provider: Lakia Kitchen, RN)1222 (New Bag - Provider: Robert Hollis, YUMI)1756 (New Bag - Provider: Robert Hollis RN) 0044 (New Bag - Provider: Lisseth Garcia, RN)0537 (New Bag - Provider: Lisseth Garcia, YUMI)1230 (Due - Provider: T[facility]) meropenem (Merrem) IVPB 1,000 mg (COMPLETED) 1,000 mg, IV Piggyback, ONCE, 1 dose, On Mon01/19/23 at 0215 0410 (New Bag - Provider: Ban Tucker RN) metoprolol succinate XL (toPROL XL) tab 25 mg 25 mg, Oral, Daily(AM), First dose on Mon01/19/23 at 0900, Until Discontinued, Hold for HR less than 60 or SBP below 100 and notify service if dose is held This med should NOT be Crushed or Chewed. 0900 (Dose Held (per order) - Provider: Guerita Apodaca RN - Comment: held per surgery) 0826 (Given - Provider: Robert Hollis RN) 0811 (Given - Provider: Sandrita Delgado RN) oxygen GAS (CANCELED) Inhalation, OXYGEN, First dose on Mon01/19/23 at 1630, Until Discontinued, Device/Managed by: Low Flow Device, Goal SPO2 (%): 91-95, Starting Device: Nasal Cannula, Initial Flow Rate (LPM): 2, Lowest Support: Nasal Cannula: Flow 0-6 LPM. Titrate up/down by 1 LPM., Higher Support: Non-Rebreather (NRB) Mask: Minimum of 10 LPM. Titrate to maintain bag inflation., Titration Interval: Q2 minutes and as needed., Notify Provider: Other, Notify Provider [other]: If SpO2 less than 88% or NOT maintaining SpO2 greater than 92% notify physician immediately., Until awake OR SpO2 greater than 95% for 15 minutes, then Titrate O2 flow rate down to maintain SpO2 greater than 92% If SpO2 is less than 88% place patient on NRB mask at 10 LPM 1608 (Oxygen On - Provider: Nayeli Cramer, YUMI) Rivaroxaban (Xarelto) 1 mg/mL oral suspension 2.5 mg 2.5 mg, Oral, BID (.AM/PM), First dose on Misty 01/19/23 at 2100, Until Discontinued 2056 (Given - Provider: Lakia Kitchen, YUMI) 826 (Given - Provider: Robert Hollis, YUMI)2119 (Given - Provider: Lisseth Garcia, YUMI) 08 (Given - Provider: Sandrita Delgado, YUMI) rOPINIRole (Requip) tab 0.5 mg 0.5 mg, Oral, HS, First dose on Misty 01/19/23 at 0045, Until Discontinued 214 (Given - Provider: Ban Tucker RN)2055 (Given - Provider: Lakia Kitchen, YUMI) 2119 (Given - Provider: Lisseth Garcia, YUMI) sertraline (Zoloft) tab 50 mg 50 mg, Oral, Daily(AM), First dose on Mon01/19/23 at 0900, Until Discontinued 0900 (Dose Held (per order) - Provider: Guerita Apodaca RN - Comment: held per surgery) 08 (Given - Provider: Robert Hollis RN) 08 (Given - Provider: Sandrita Delgado, YUMI) Vancomycin (Vancocin) 1000 mg in NSS 250 mL ivpb LOCKED DOSE 1,000 mg, IV Piggyback, [id number], First dose on Misty 01/19/23 at 1200, Until Discontinued 1346 (Given - Provider: Fadia Mota CRNA)2339 (New Bag - Provider: Lakia Kitchen, YUMI) 1236 (New Bag - Provider: Robert Hollis, YUMI) 0044 (New Bag - Provider: Lisseth Garcia, YUMI)1200 (Due) Continuous Medication Order 01/19/2023 01/20/2023 01/21/2023 hEParin 25,000 units in 250 mL (aPTT-DVT/PE) infusion (CANCELED) Intravenous, at 0-25.95 mL/hr, Start heparin as soon as baseline labs are drawn. Please select this medication from the infusion pump library! Concentration: 100 units/mL Expires 96 hours after spiking on (date) at (hour) , TITRATE, Starting on Misty 01/19/23 at 0030, Until Misty 01/19/23 at 1641 0031 (New Bag - Provider: Sahra Hollins RN)0118 (Nurse Change - Provider: Willie Velazquez, YUMI)0935 (Stopped - Provider: Lourdes Stringer RN - Comment: per Dr. Rosas) isolyte-S pH 7.4 infusion () Intravenous, at 50 mL/hr, Plasma-LYTE 148, isolyte-S, and isolyte-S pH 7.4 are considered equivalent - including for MAR barcode scanning., CONTINUOUS, Starting on Misty 01/19/23 at 0100, Until Misty 01/19/23 at 1059 0219 (New Bag - Provider: Willie Velazquez, YUMI) PRN Medication Order 01/19/2023 01/20/2023 01/21/2023 Acetaminophen (Tylenol) tab 650 mg 650 mg, Oral, Q6H PRN Pain, Mild, Fever >38C(100.5F), Headache, Starting on Misty 01/19/23 at 0013, Until 01/21/23 at 1811, Maximum of 4 grams (4000 mg) per day. Albuterol Sulfate (Proventil) (2.5 MG/3ML) 0.083% inhalation solution 2.5 mg 2.5 mg, Nebulizer, Q6H PRN Dyspnea, Other, Wheezing, Starting on Misty 01/19/23 at 0011, Until 01/21/23 at 1811 bupivacaine (Sensorcaine) 0.25 % inj (CANCELED) ONCE PRN INTRA PROCEDURE, Starting on Misty 01/19/23 at 1504, Until Misty 01/19/23 at 1538, Intra-Op 1504 (Given - Provider: Willian Rosas MD) dextrose 50 % inj 25 mL 25 mL, IV Push, PRN Hypoglycemia, Other, For blood glucose 54 - 69 mg/dL or 70 - 100 mg/dL with symptoms AND patient is unresponsive, NPO, OR unable to swallow, Starting on Misty 01/19/23 at 0012, Until 01/21/23 at 1811, Administer IV. Recheck blood glucose after 15 minutes. Notify provider. dextrose 50 % inj 50 mL 50 mL, IV Push, PRN Hypoglycemia, Other, For blood glucose below 54 mg/dL AND patient unresponsive, NPO, OR unable to swallow, Starting on Misty 01/19/23 at 0012, Until 01/21/23 at 1811, Administer IV. Recheck blood glucose in 15 minutes. Notify provider. fluticasone (Flonase) nasal inhaler 2 [place] 2 [place], Each Nostril, BID PRN Congestion, Starting on Misty 01/19/23 at 0008, Until 01/21/23 at 181, 50 mcg / Actuation glucagon (Glucagen) inj 1 mg 1 mg, Intramuscular, PRN Hypoglycemia, Other, If patient is unresponsive, or NPO and has no IV access, Starting on Misty 01/19/23 at 0012, Until 01/21/23 at 181, NPO and no IV access with either 1) blood glucose less than 100 mg/dL and symptomatic OR 2) blood glucose less than 70 mg/dL and asymptomatic Glucose (Glutose 15) 40 % gel 15 g of glucose 15 g of glucose, Oral, PRN Hypoglycemia (low sugar), Other, For blood glucose 54 - 69 mg/dL or 70 - 100 mg/dL with symptoms AND patient alert WITH difficulty chewing/swallowing, Starting on Misty 01/19/23 at 0012, Until 01/21/23 at 1811, Administer gel. Recheck blood glucose after 15 minutes. Notify provider. 37.5 gram tube = 15 grams glucose = 1 each Glucose (Glutose 15) 40 % gel 30 g of glucose 30 g of glucose, Oral, PRN Hypoglycemia (low sugar), Other, For blood glucose below 54 mg/dL AND patient alert WITH difficulty chewing/swallowing, Starting on Misty 01/19/23 at 0012, Until 01/21/23 at 1811, Administer gel. Recheck blood glucose after 15 minutes. Notify provider. 37.5 gram tube = 15 grams glucose = 1 each glucose chew tab 16 g 16 g, Oral, PRN Hypoglycemia, Other, For blood glucose 54 - 69 mg/dL or 70 - 100 mg/dL with symptoms and patient alert without difficulty chewing/swallowing., Starting on Misty 01/19/23 at 0012, Until 01/21/23 at 1811 hEParin 5,000 Units in NSS 500 mL infusion (CANCELED) ONCE PRN INTRA PROCEDURE, Starting on Misty 01/19/23 at 1424, Until Misty 01/19/23 at 1538, Intra-Op 1424 (Given - Provider: Willian Rosas MD - Comment: PRN) Lactated Ringers SOLN (CANCELED) ONCE PRN INTRA PROCEDURE, Starting on Misty 01/19/23 at 1159, Until Misty 01/19/23 at 1538, Intra-Op 1159 (Given - Provider: Willian Rosas MD - Comment: PRN for flushing of saphenous vein graft) sodium chloride 0.9 % flush/inj 3 mL 3 mL, IV Push, PRN Other, Line Patency, Starting on Misty 01/19/23 at 0012, Until 01/21/23 at 1811, Do not flush if lock, PICC, or central line not in place, IV infusing or unable to flush surgicel 4x8 hemostat (CANCELED) ONCE PRN INTRA PROCEDURE, Starting on Misty 01/19/23 at 1428, Until Misty 01/19/23 at 1538, Intra-Op 1428 (Given - Provider: Willian Rosas MD) Thrombin (Thrombin-JMI) topical soln (CANCELED) ONCE PRN INTRA PROCEDURE, Starting on Misty 01/19/23 at 1424, Until Misty 01/19/23 at 1538, Intra-Op 1424 (Given - Provider: Willian Rosas MD - Comment: with gel foam) traMADol (Ultram) tab 100 mg 100 mg, Oral, Q6H PRN Pain, Severe, Starting on Misty 01/19/23 at 0102, Until 01/21/23 at 1811 0159 (Given - Provider: Lakia Kitchen RN) 0058 (Given - Provider: Lisseth Garcia RN) traMADol (Ultram) tab 50 mg 50 mg, Oral, Q6H PRN Pain, Moderate, pain, Starting on Misty 01/19/23 at 0011, Until 01/21/23 at 1811 1944 (Given - Provider: Lakia Kitchen RN) 1214 (Given - Provider: Robert Hollis, YUMI)1900 (Given - Provider: Robert Hollis RN) vancomycin 1 mg in sodium chloride IR 0.9 % 500 mL irrigation (CANCELED) Intra-Op 0954 (Given - Provider: Willian Rosas MD)1424 (Entry Error - Provider: Willian Rosas MD - Comment: PRN) documented in this encounter Advance Directives Latest [...] Advance Directives occurred with: Patient Care Teams Spinning Doffer Relationship Specialty Start Date End Date Jonny Donaldson MD [address] [place] [id number] PCP - General Family Medicine 05/27/14 documented as of this encounter
--- OUTSIDE RECORDS SUMMARY | 2023-03-02 22:36 | External Medical Summary ---
Author Name Unknown Address Unknown Organization [id number]:LABORATORY [facility] [place] - [address] [place] [address] Laboratory Report Ordering Provider Test Date Status MALENA BLACK 01/21/2023 06:49:00 Final Observation Date Value Abnormality Reference (Units ) Status BUN 01/21/2023 06:49:00 12 6-20 (mg/dL) Final Creatinine 01/21/2023 06:49:00 0.8 0.5-1.0 (mg/dL) Final Glomerular filtration rate/1.73 sq M.predicted [Volume Rate/Area] in Serum, Plasma or Blood by Creatinine-based formula (CKD-EPI) 01/21/2023 06:49:00 87 >=60 (mL/min) Final eGFR is calculated based on the CKD-EPI 2020 equation SODIUM 01/21/2023 06:49:00 133 Below low normal 135 -146 (mmol/L) Final Potassium 01/21/2023 06:49:00 4.0 3.5-5.1 (m mol/L) Final Cl 01/21/2023 06:49:00 99 98-107 (mm ol/L) Final CO2 01/21/2023 06:49:00 25 22-32 (mmo l/L) Final Anion gap 01/21/2023 06:49:00 9 7-15 (mmol /L) Final Glucose 01/21/2023 06:49:00 260 Above high normal 70 -120 (mg/dL) Final Calcium 01/21/2023 06:49:00 8.5 8.4-10.2 ( mg/dL) Final Performing Location [facility]ORATORY [facility] [place] - [address] [place] [address]
--- OUTSIDE RECORDS SUMMARY | 2023-03-02 22:36 | External Medical Summary ---
Author Name Unknown Address Unknown Organization : Laboratory Report Ordering Provider Test Date Status DEVENDRA SULTANA 01/21/2023 11:50:30 Final Observation Date Value Abnormality Reference (Units ) Status Glucose Point of Care 01/21/2023 11:50:30 301 Above high normal 70-120 (mg/dL) Final Performing Location
--- OUTSIDE RECORDS SUMMARY | 2023-03-02 22:37 | External Medical Summary ---
Author Name Unknown Address Unknown Organization : Laboratory Report Ordering Provider Test Date Status DEVENDRA SULTANA 01/19/2023 14:50:12 Final Observation Date Value Abnormality Reference (Units) Status Blood draw [PhenX] 01/19/2023 14:50:12 Arterial Draw Final pH, POC (i-STAT) 01/19/2023 14:50:12 7.300 Below low normal 7.350-7.450 Final PCO2 POC (i-STAT) 01/19/2023 14:50:12 45.7 Above high normal 35.0-45.0 (mm Hg) Final PO2 POC (i-STAT) 01/19/2023 14:50:12 89 75-100 (mm Hg) Final Base excess standard in Arterial blood by calculation 01/19/2023 14:50:12 -4 Below low normal -2-2 (mmol/L) Final Bicarbonate, Venous, POC (i-STAT) 01/19/2023 14:50:12 22.5 Below low normal 23.0-31.0 (mmol/L) Final O2 Sat, calculated POC (i-STAT) 01/19/2023 14:50:12 96.0 94.0-98.0 (%) Final Glucose, whole blood 01/19/2023 14:50:12 266 Above high normal 70-120 (mg/dL) Final Potassium, Whole Blood 01/19/2023 14:50:12 5.0 3.5-5.1 (mmol/L) Final Sodium, Whole Blood 01/19/2023 14:50:12 136 135-146 (mmol/L) Final Calcium, Ionized, Whole Blood 01/19/2023 14:50:12 1.13 1.13-1.32 (mmol/L) Final Hemoglobin POC (i-STAT) 01/19/2023 14:50:12 10.9 Below low normal 12.0-15.3 (g/dL) Final HCT 01/19/2023 14:50:12 32 Below low normal 36-45 (%) Final Oxygen/Total gas setting [Volume Fraction] Ventilator 01/19/2023 14:50:12 75 (%) Final Performing Location
--- OUTSIDE RECORDS SUMMARY | 2023-03-02 22:37 | External Medical Summary ---
Author Name Unknown Address Unknown Organization K01:[facility] [place] [address] [place] [address] Laboratory Report Ordering Provider Test Date Status VIDA GUY 01/19/2023 00:28:00 Final Observation Date Value Abnormality Reference (Units ) Status Bacteria identified in Specimen by Culture 01/19/2023 00:28:00 No growth Final Test: Culture, Blood (Site 2)
Specimen Source: Blood, Venous
Specimen Type: Blood
Specimen Date: 01/19/2023 12:28 AM
Result Date: 01/24/2023 3:01 AM
Result Status: Final result
Resulting Lab: [facility] [place]
[address]
[place] [address]

CULTURE

No growth

null Performing Location [facility] [place] [address] [place] [address]
--- OUTSIDE RECORDS SUMMARY | 2023-03-02 22:37 | External Medical Summary ---
Author Name Unknown Address Unknown Organization K01:LABORATORY [facility] [place] - [address] [place] [address] Laboratory Report Ordering Provider Test Date Status MYLES MONTANO 01/19/2023 00:28:00 Final Observation Date Value Abnormality Reference (Units ) Status WBC, Total 01/19/2023 00:28:00 9.84 4.00-10.80 (K/uL) Final RBC 01/19/2023 00:28:00 4.47 3.85-5.15 (M/uL) Final Hemoglobin 01/19/2023 00:28:00 11.6 Below low normal 12.0-15.3 (g/dL) Final HCT 01/19/2023 00:28:00 39.6 36.0-45.2 (%) Final MCV 01/19/2023 00:28:00 88.6 81.5-97.5 (fL) Final MCH 01/19/2023 00:28:00 26.0 27.0-34.0 (pg) Final MCHC 01/19/2023 00:28:00 29.3 32.0-36.0 (g/dL) Final RDW 01/19/2023 00:28:00 17.7 11.5-15.5 (%) Final Platelets 01/19/2023 00:28:00 191 140-400 (K/uL) Final MPV 01/19/2023 00:28:00 10.8 6.6-11.1 (fL) Final Nucleated erythrocytes/100 leukocytes [Ratio] in Blood by Automated count 01/19/2023 00:28:00 0 <=0 (/100 WBCs) Final Performing Location [facility]ORY [facility] [place] - [address] [place] [address]
--- OUTSIDE RECORDS SUMMARY | 2023-03-02 22:37 | External Medical Summary ---
Author Name Unknown Address Unknown Organization : Laboratory Report Ordering Provider Test Date Status DEVENDRA SULTANA 01/19/2023 13:52:40 Final Observation Date Value Abnormality Reference (Units) Status Blood draw [PhenX] 01/19/2023 13:52:40 Arterial Draw Final pH, POC (i-STAT) 01/19/2023 13:52:40 7.307 Below low normal 7.350-7.450 Final PCO2 POC (i-STAT) 01/19/2023 13:52:40 45.7 Above high normal 35.0-45.0 (mm Hg) Final PO2 POC (i-STAT) 01/19/2023 13:52:40 67 Below low normal 75-100 (mm Hg) Final Base excess standard in Arterial blood by calculation 01/19/2023 13:52:40 -3 Below low normal -2-2 (mmol/L) Final Bicarbonate, Venous, POC (i-STAT) 01/19/2023 13:52:40 22.8 Below low normal 23.0-31.0 (mmol/L) Final O2 Sat, calculated POC (i-STAT) 01/19/2023 13:52:40 91.0 Below low normal 94.0-98.0 (%) Final Glucose, whole blood 01/19/2023 13:52:40 268 Above high normal 70-120 (mg/dL) Final Potassium, Whole Blood 01/19/2023 13:52:40 5.3 Above high normal 3.5-5.1 (mmol/L) Final Sodium, Whole Blood 01/19/2023 13:52:40 136 135-146 (mmol/L) Final Calcium, Ionized, Whole Blood 01/19/2023 13:52:40 1.13 1.13-1.32 (mmol/L) Final Hemoglobin POC (i-STAT) 01/19/2023 13:52:40 10.9 Below low normal 12.0-15.3 (g/dL) Final HCT 01/19/2023 13:52:40 32 Below low normal 36-45 (%) Final Oxygen/Total gas setting [Volume Fraction] Ventilator 01/19/2023 13:52:40 65 (%) Final Performing Location
--- OUTSIDE RECORDS SUMMARY | 2023-03-02 22:37 | External Medical Summary ---
Author Name Unknown Address Unknown Organization K01:[place] [place] [address] [place] [address] Laboratory Report Ordering Provider Test Date Status MYLES MONTANO 01/18/2023 23:02:00 Final Observation Date Value Abnormality Reference (Units ) Status BUN 01/18/2023 23:02:00 15 6-20 (mg/dL) Final Creatinine 01/18/2023 23:02:00 0.9 0.5-1.0 (mg/dL) Final Glomerular filtration rate/1.73 sq M.predicted [Volume Rate/Area] in Serum, Plasma or Blood by Creatinine-based formula (CKD-EPI) 01/18/2023 23:02:00 67 >=60 (mL/min) Final eGFR is calculated based on the CKD-EPI 2020 equation SODIUM 01/18/2023 23:02:00 136 135-146 (m mol/L) Final Potassium 01/18/2023 23:02:00 4.8 3.5-5.1 (m mol/L) Final Cl 01/18/2023 23:02:00 105 98-107 (mm ol/L) Final CO2 01/18/2023 23:02:00 20 Below low normal 22- 32 (mmol/L) Final Anion gap 01/18/2023 23:02:00 11 7-15 (mmol /L) Final Glucose 01/18/2023 23:02:00 204 Above high normal 70 -120 (mg/dL) Final Calcium 01/18/2023 23:02:00 7.8 Below low normal 8.4 -10.2 (mg/dL) Final Performing Location [facility] [place] [address] [place] [address]
--- OUTSIDE RECORDS SUMMARY | 2023-03-02 22:37 | External Medical Summary ---
Author Name Unknown Address Unknown Organization K01:LABORATORY [facility] [place] - [address] [place] [address] Laboratory Report Ordering Provider Test Date Status MYLES MONTANO 01/20/2023 05:01:00 Final Warfarin Therapy
INR: 2 .0-3.0 conventional anticoagulation
INR: 2.5- 3.5 high intensity anticoagulation Observation Date Value Abnormality Reference (Units ) Status PT 01/20/2023 05:01:00 13.9 11.6-15.2 (seconds) Final INR 01/20/2023 05:01:00 1.1 0.8-1.2 Final Performing Location LABORATORY [facility] [place] - [address] [place] [address]
--- OUTSIDE RECORDS SUMMARY | 2023-03-02 22:37 | External Medical Summary ---
Author Name Unknown Address Unknown Organization K01:LAB[facility]ATORY [facility] [place] - [address] [place] [address] Laboratory Report Ordering Provider Test Date Status MYLES MONTANO 01/19/2023 00:28:00 Final Anticoagulation may affect t esting. Refer to [facility] Test Catalog for a list of effects. Observation Date Value Abnormality Reference (Units ) Status aPTT panel - Platelet poor plasma 01/19/2023 00:28:00 24 21-38 (seconds) Final Performing Location [facility]ORY [facility] [place] - [address] [place] [address]
--- OUTSIDE RECORDS SUMMARY | 2023-03-02 22:37 | External Medical Summary ---
Author Name Unknown Address Unknown Organization K01:LABORATORY [facility] [place] - [address] [place] [address] Laboratory Report Ordering Provider Test Date Status LYNDA DOMINGUEZ 01/19/2023 07:48:00 Final Anticoagulation may affect t esting. Refer to [facility] Test Catalog for a list of effects. Observation Date Value Abnormality Reference (Units ) Status aPTT panel - Platelet poor plasma 01/19/2023 07:48:00 34 21-38 (seconds) Final Performing Location LABORATORY [facility] [place] - [address] [place] [address]
--- OUTSIDE RECORDS SUMMARY | 2023-03-02 22:37 | External Medical Summary ---
Author Name Unknown Address Unknown Organization K01:LABORATORY [facility] [place] - [address] [place] [address] Laboratory Report Ordering Provider Test Date Status MYLES MONTANO 01/19/2023 04:58:00 Final Warfarin Therapy
INR: 2 .0-3.0 conventional anticoagulation
INR: 2.5- 3.5 high intensity anticoagulation Observation Date Value Abnormality Reference (Units ) Status PT 01/19/2023 04:58:00 12.1 11.6-15.2 (seconds) Final INR 01/19/2023 04:58:00 0.9 0.8-1.2 Final Performing Location LABORATORY [facility] [place] - [address] [place] [address]
--- OUTSIDE RECORDS SUMMARY | 2023-03-02 22:37 | External Medical Summary ---
Author Name Unknown Address Unknown Organization K01:[facility] [place] [address] [place] [address] Laboratory Report Ordering Provider Test Date Status MYLES MONTANO 01/18/2023 23:02:00 Final Observation Date Value Abnormality Reference (Units ) Status WBC, Total 01/18/2023 23:02:00 8.51 4.00-10.80 (K/uL) Final RBC 01/18/2023 23:02:00 4.47 3.85-5.15 (M/uL) Final Hemoglobin 01/18/2023 23:02:00 11.5 Below low normal 12.0-15.3 (g/dL) Final HCT 01/18/2023 23:02:00 38.4 36.0-45.2 (%) Final MCV 01/18/2023 23:02:00 85.9 81.5-97.5 (fL) Final MCH 01/18/2023 23:02:00 25.7 27.0-34.0 (pg) Final MCHC 01/18/2023 23:02:00 29.9 32.0-36.0 (g/dL) Final RDW 01/18/2023 23:02:00 17.8 11.5-15.5 (%) Final Platelets 01/18/2023 23:02:00 187 140-400 (K/uL) Final MPV 01/18/2023 23:02:00 10.0 6.6-11.1 (fL) Final Nucleated erythrocytes/100 leukocytes [Ratio] in Blood by Automated count 01/18/2023 23:02:00 0 <=0 (/100 WBCs) Final Performing Location [facility] [place] [address] [place] [address]
--- OUTSIDE RECORDS SUMMARY | 2023-03-02 22:37 | External Medical Summary ---
Author Name Unknown Address Unknown Organization : Laboratory Report Ordering Provider Test Date Status LYNDA DOMINGUEZ 01/19/2023 01:32:52 Final Observation Date Value Abnormality Reference (Units ) Status Glucose Point of Care 01/19/2023 01:32:52 199 Above high normal 70-120 (mg/dL) Final Performing Location
--- OUTSIDE RECORDS SUMMARY | 2023-03-02 22:37 | External Medical Summary ---
Author Name Unknown Address Unknown Organization [id number]:LAB[facility]ATORY [facility] [place] - [address] [place] [address] Laboratory Report Ordering Provider Test Date Status MYLES MONTANO 01/19/2023 04:58:00 Final Observation Date Value Abnormality Reference (Units ) Status WBC, Total 01/19/2023 04:58:00 8.13 4.00-10.80 (K/uL) Final RBC 01/19/2023 04:58:00 4.58 3.85-5.15 (M/uL) Final Hemoglobin 01/19/2023 04:58:00 11.8 Below low normal 12.0-15.3 (g/dL) Final HCT 01/19/2023 04:58:00 40.2 36.0-45.2 (%) Final MCV 01/19/2023 04:58:00 87.8 81.5-97.5 (fL) Final MCH 01/19/2023 04:58:00 25.8 27.0-34.0 (pg) Final MCHC 01/19/2023 04:58:00 29.4 32.0-36.0 (g/dL) Final RDW 01/19/2023 04:58:00 17.6 11.5-15.5 (%) Final Platelets 01/19/2023 04:58:00 193 140-400 (K/uL) Final MPV 01/19/2023 04:58:00 9.9 6.6-11.1 (fL) Final Nucleated erythrocytes/100 leukocytes [Ratio] in Blood by Automated count 01/19/2023 04:58:00 0 <=0 (/100 WBCs) Final Performing Location LABORATORY [facility] [place] - [address] [place] [address]
--- OUTSIDE RECORDS SUMMARY | 2023-03-02 22:37 | External Medical Summary ---
Author Name Unknown Address Unknown Organization K01:LAB[facility]ATORY [facility] [place] - [address] [place] [address] Laboratory Report Ordering Provider Test Date Status VIDA GUY 01/19/2023 00:28:00 Final Observation Date Value Abnormality Reference (Units ) Status Bacteria identified in Specimen by Culture 01/19/2023 00:28:00 No growth Final Test: Culture, Blood
Sp ecimen Source: Blood, Venous
Specimen Type: Blood
Specimen Date: 01/19/2023 12:28 AM
Result Date: 01/24/2023 3:01 AM
Result Status: Final result
Resulting Lab: LAB[facility]ATORY [facility] [place]
[address]
[place] [address]

CULTURE

No growth

null Performing Location [facility]ATORY [facility] [place] - [address] [place] [address]
--- OUTSIDE RECORDS SUMMARY | 2023-03-02 22:37 | External Medical Summary ---
Author Name Unknown Address Unknown Organization K01:LABORATORY [facility] [place] - [address] [place] [address] Laboratory Report Ordering Provider Test Date Status CASEY ROMANO 01/19/2023 16:44:00 Final In PACU Observation Date Value Abnormality Reference (Units ) Status BUN 01/19/2023 16:44:00 12 6-20 (mg/dL) Final Creatinine 01/19/2023 16:44:00 0.7 0.5-1.0 (mg/dL) Final Glomerular filtration rate/1.73 sq M.predicted [Volume Rate/Area] in Serum, Plasma or Blood by Creatinine-based formula (CKD-EPI) 01/19/2023 16:44:00 >90 >=60 (mL/min) Final eGFR is calculated based on the CKD-EPI 2020 equation SODIUM 01/19/2023 16:44:00 136 135-146 (m mol/L) Final Potassium 01/19/2023 16:44:00 5.1 3.5-5.1 (m mol/L) Final Cl 01/19/2023 16:44:00 102 98-107 (mm ol/L) Final CO2 01/19/2023 16:44:00 19 Below low normal 22- 32 (mmol/L) Final Anion gap 01/19/2023 16:44:00 15 7-15 (mmol /L) Final Glucose 01/19/2023 16:44:00 267 Above high normal 70 -120 (mg/dL) Final Calcium 01/19/2023 16:44:00 8.3 Below low normal 8.4 -10.2 (mg/dL) Final Performing Location LABORATORY [facility] [place] - [address] [place] [address]
--- OUTSIDE RECORDS SUMMARY | 2023-03-02 22:37 | External Medical Summary ---
Author Name Unknown Address Unknown Organization : Laboratory Report Ordering Provider Test Date Status LYNDA DOMINGUEZ 01/19/2023 15:53:00 Final Observation Date Value Abnormality Reference (Units ) Status Glucose Point of Care 01/19/2023 15:53:00 250 Above high normal 70-120 (mg/dL) Final Performing Location
--- OUTSIDE RECORDS SUMMARY | 2023-03-02 22:37 | External Medical Summary ---
Author Name Unknown Address Unknown Organization K01:[place] [place] [address] [place] [address] Laboratory Report Ordering Provider Test Date Status CASEY ROMANO 01/19/2023 16:44:00 Final In PACU Observation Date Value Abnormality Reference (Units ) Status WBC, Total 01/19/2023 16:44:00 9.40 4.00-10.80 (K/uL) Final RBC 01/19/2023 16:44:00 4.11 3.85-5.15 (M/uL) Final Hemoglobin 01/19/2023 16:44:00 10.6 Below low normal 12.0-15.3 (g/dL) Final HCT 01/19/2023 16:44:00 36.0 36.0-45.2 (%) Final MCV 01/19/2023 16:44:00 87.6 81.5-97.5 (fL) Final MCH 01/19/2023 16:44:00 25.8 27.0-34.0 (pg) Final MCHC 01/19/2023 16:44:00 29.4 32.0-36.0 (g/dL) Final RDW 01/19/2023 16:44:00 17.3 11.5-15.5 (%) Final Platelets 01/19/2023 16:44:00 179 140-400 (K/uL) Final MPV 01/19/2023 16:44:00 9.6 6.6-11.1 (fL) Final Nucleated erythrocytes/100 leukocytes [Ratio] in Blood by Automated count 01/19/2023 16:44:00 0 <=0 (/100 WBCs) Final Performing Location [facility] [place] [address] [place] [address]
--- OUTSIDE RECORDS SUMMARY | 2023-03-02 22:37 | External Medical Summary ---
Author Name Unknown Address Unknown Organization K01:LABORATORY [facility] [place] - [address] [place] [address] Laboratory Report Ordering Provider Test Date Status MYLES MONTANO 01/18/2023 23:02:00 Final Observation Date Value Abnormality Reference (Units ) Status SYNC LEUKOCYTES IN BLOOD BY AUTOMATED COUNT 01/18/2023 23:02:00 8.51 4.00-10.80 (K/uL) Final Segs 01/18/2023 23:02:00 71.8 40.0-75.0 (%) Final Lymphs % 01/18/2023 23:02:00 19.6 18.0-42.0 (%) Final Monos 01/18/2023 23:02:00 6.6 1.0-11.0 (%) Final Eosinophils 01/18/2023 23:02:00 1.2 0.0-6.0 (%) Final Basos 01/18/2023 23:02:00 0.4 0.0-2.0 (%) Final Immature Granulocyte, Percent 01/18/2023 23:02:00 0.4 0.0-2.0 (%) Final Absolute Segs 01/18/2023 23:02:00 6.12 1.80-7.70 (K/uL) Final Lymphs, absolute 01/18/2023 23:02:00 1.67 1.00-4.80 (K/ul) Final Monos, Abs 01/18/2023 23:02:00 0.56 0.00-1.10 (K/uL) Final Eos, Abs 01/18/2023 23:02:00 0.10 0.00-0.70 (K/uL) Final Basos, Abs 01/18/2023 23:02:00 0.03 0.00-0.20 (K/uL) Final Immature Granulocytes, Number 01/18/2023 23:02:00 0.03 0.00-0.20 (K/uL) Final Performing Location LABORATORY [facility] [place] - [facility] [place] [address]
--- OUTSIDE RECORDS SUMMARY | 2023-03-02 22:37 | External Medical Summary ---
Author Name Unknown Address Unknown Organization K01:LABORATORY [facility] [place] - [address] [place] [address] Laboratory Report Ordering Provider Test Date Status MYLES MONTANO 01/19/2023 00:28:00 Final Observation Date Value Abnormality Reference (Units ) Status Heparin, unfractionated level 01/19/2023 00:28:00 <0.10 <0.10 (IU/mL) Final Unfractionated therapeutic r anges for Anti Xa activity:
For Cardiac/Neurologic treatment: 0.3 to 0.6 IU/mL.
For treatment of DVT or Pulmonary Embolism: 0.3 to 0.7 IU/mL. Performing Location LABORATORY [facility] [place] - [address] [place] [address]
--- OUTSIDE RECORDS SUMMARY | 2023-03-02 22:37 | External Medical Summary ---
Author Name Unknown Address Unknown Organization : Laboratory Report Ordering Provider Test Date Status DEVENDRA SULTANA 01/19/2023 23:04:30 Final Observation Date Value Abnormality Reference (Units ) Status Glucose Point of Care 01/19/2023 23:04:30 265 Above high normal 70-120 (mg/dL) Final Performing Location
--- OUTSIDE RECORDS SUMMARY | 2023-03-02 22:37 | External Medical Summary ---
Author Name Unknown Address Unknown Organization K01:LAB[facility]ATORY [facility] [place] [address] [place] [address] Laboratory Report Ordering Provider Test Date Status MYLES MONTANO 01/20/2023 05:01:00 Final Observation Date Value Abnormality Reference (Units ) Status WBC, Total 01/20/2023 05:01:00 9.47 4.00-10.80 (K/uL) Final RBC 01/20/2023 05:01:00 3.92 3.85-5.15 (M/uL) Final Hemoglobin 01/20/2023 05:01:00 10.1 Below low normal 12.0-15.3 (g/dL) Final HCT 01/20/2023 05:01:00 34.5 Below low normal 36.0-45.2 (%) Final MCV 01/20/2023 05:01:00 88.0 81.5-97.5 (fL) Final MCH 01/20/2023 05:01:00 25.8 27.0-34.0 (pg) Final MCHC 01/20/2023 05:01:00 29.3 32.0-36.0 (g/dL) Final RDW 01/20/2023 05:01:00 17.6 11.5-15.5 (%) Final Platelets 01/20/2023 05:01:00 206 140-400 (K/uL) Final MPV 01/20/2023 05:01:00 10.8 6.6-11.1 (fL) Final Nucleated erythrocytes/100 leukocytes [Ratio] in Blood by Automated count 01/20/2023 05:01:00 0 <=0 (/100 WBCs) Final Performing Location LABORATORY [facility] [place] - [address] [place] [address]
--- OUTSIDE RECORDS SUMMARY | 2023-03-02 22:37 | External Medical Summary ---
Author Name Unknown Address Unknown Organization : Laboratory Report Ordering Provider Test Date Status DEVENDRA SULTANA 01/19/2023 12:25:46 Final Observation Date Value Abnormality Reference (Units) Status Blood draw [PhenX] 01/19/2023 12:25:46 Arterial Draw Final pH, POC (i-STAT) 01/19/2023 12:25:46 7.261 Below low normal 7.350-7.450 Final PCO2 POC (i-STAT) 01/19/2023 12:25:46 41.6 35.0-45.0 (mm Hg) Final PO2 POC (i-STAT) 01/19/2023 12:25:46 76 75-100 (mm Hg) Final Base excess standard in Arterial blood by calculation 01/19/2023 12:25:46 -8 Below low normal -2-2 (mmol/L) Final Bicarbonate, Venous, POC (i-STAT) 01/19/2023 12:25:46 18.7 Below low normal 23.0-31.0 (mmol/L) Final O2 Sat, calculated POC (i-STAT) 01/19/2023 12:25:46 93.0 Below low normal 94.0-98.0 (%) Final Glucose, whole blood 01/19/2023 12:25:46 209 Above high normal 70-120 (mg/dL) Final Potassium, Whole Blood 01/19/2023 12:25:46 4.2 3.5-5.1 (mmol/L) Final Sodium, Whole Blood 01/19/2023 12:25:46 140 135-146 (mmol/L) Final Calcium, Ionized, Whole Blood 01/19/2023 12:25:46 1.01 Below low normal 1.13-1.32 (mmol/L) Final Hemoglobin POC (i-STAT) 01/19/2023 12:25:46 10.5 Below low normal 12.0-15.3 (g/dL) Final HCT 01/19/2023 12:25:46 31 Below low normal 36-45 (%) Final Oxygen/Total gas setting [Volume Fraction] Ventilator 01/19/2023 12:25:46 65 (%) Final Performing Location
--- OUTSIDE RECORDS SUMMARY | 2023-03-02 22:37 | External Medical Summary ---
Author Name Unknown Address Unknown Organization K01:LABORATORY [facility] [place] [facility] - [address] [place] [address] Laboratory Report Ordering Provider Test Date Status MYLES MONTANO 01/18/2023 23:02:00 Final Observation Date Value Abnormality Reference (Units ) Status ABO 01/18/2023 23:02:00 O Final RH 01/18/2023 23:02:00 Positive Final Performing Location LABORATORY [facility] [place] [facility] - [address] [place] [address]
--- OUTSIDE RECORDS SUMMARY | 2023-03-02 22:37 | External Medical Summary | Summary of Care ---
Author Name Unknown Organization [facility] Address [address] [place] [address] Phone [phone] Care Team Providers Care Circular Knife Machine Cutter Name Role Phone Jonny Donaldson MD Primary Care Provider + Reason for Visit * Reason Comments [facility] Encounter Details Date Type Department Care Team (Late st Contact Info) Description 01/18/2023 8:55 PM EST Documentation [facility] [place] [address] [place] [address] 2, [facility] [address] [place] [address] Arterial occlusion, lower extremity (HCC)* Allergies Active Allergy Reactions Criticality Noted Date Comments Cephalexin 01/28/1996 rash Doxepin 02/01/2018 Dust 04/04/2001 Nickel Anaphylaxis High 04/04/2001 Paroxetine 04/28/2003 generic only, brand ok Penicillins 03/03/1995 Rash Sulfa Antibiotics 11/27/1994 Rash documented as of this encounter (statuses as of 01/19/2023) Medications Medication Sig Dispensed Refills Start Date [...] with renal manifestations, uncontrolled(250.4 2) ([facility]) Take one pill daily 100 Tab 3 01/28/2014 Active fluticasone (FLONASE) 50 MCG/ACT nasal spray Administer 2 Sprays into each nostril 2 times a day. 18.2 mL 5 10/14/2019 Active OneTouch Ultra Blue In Vitro Strip (Glucose Blood)Indications: Type 2 diabetes mellitus with hemoglobin A1c goal of less than 8.0% ([facility]) Use up to 3 times Daily E11.9 poorly controlled. 200 Strip 11 03/11/2021 Active BD Pen Needle Tanja U/F 32G X 4 MM (Insulin Pen Needle)Indications :Type 2 diabetes mellitus with hemoglobin A1c goal of less than 8.0% ([facility]) USE TO INJECT INSULIN 2-3 times [...] OVER 150 18 mL 0 11/24/2022 Active Magnesium Carbonate 250 MG/GM Oral Powder Take by mouth. 0 Act chapito Krill Oil 1000 MG Oral Capsule Take [...] goal of less than 8.0% ([facility]) TAKE 1 TABLET IN THE MORNING 90 Tablet 1 01/16/2023 Active documented as of this encounter (statuses as of 01/19/2023) Active Problems Problem Noted Date Diagnosed Date COPD, group A, by GOLD 2017 classification 01/09 Overview: Per COPD GOLD Classification Urge incontinence of urine 11/28/2022 S/P CABG x 3 06/01/2022 Overview: KUMAR to LAD, SVG to PL of LCx and PDA of the RCA 04/27/[address] Whyte [place]. History of nonmelanoma skin cancer 05/25/2022 Overview: SCC L cheek 02/2022 History of completed stroke 04/27/2022 Overview: Complication of CABG. Left sided weakness. R MCA stroke . 06/06/22 f/u concern for trickle flow -> ER. History of 2019 novel coronavirus disease (COVID -19) 08/10/2021 Overview: 08/18 Carotid artery stenosis without cerebral infarct ion, left 12/30/2020 Other emphysema 12/06/2020 Atherosclerotic PVD with intermittent claudicati on 03/04/2020 Carpal tunnel syndrome on right 12/18/2019 Type 2 diabetes mellitus wit h diabetic nephropathy, with long-term current use of insulin 08/21/2019 Diabetic macular edema of both eyes 01/14/2019 Sensorineural hearing loss (SNHL) of both ears 1 04/24/2016 Overview: 02/12 audiogram Diabetic retinopathy, nonproliferative, moderate 05/27/2014 Overview: 05/[address] Montez Q6mo monitoring CAD (coronary artery disease) 06/27/2013 Overview: 06/24/13 +CP-abnormal stress->cath @[facility]. 100% occlusion RCA with left- [...] Healthcare System Episode June 2011 around 03/12/12 [place] [facility]-P175 SVT--sched for [place] EP study Routine general medical exam ination at a health care facility 11/11/2011 Overview: 01/18 Carotid US [place] stable 50-69 on left. 10/18 colonoscopy [facility] 3 3-[address] Juan Mak [facility] (11/19 06/14 Cologuard WNL. Cardiology-Jeffrey Campos [place]. 12/17 Carotid 50-69% left ICA stenosis. Vielka [...] PFT evidence of COPD ) 05/10 TTE @[place] Ujagemuqma-cfgi-fxkepu EF, mild LVH, Gr1 Feldman Dys 07/09 colonoscopy [facility] Endoscopy [place]-3 & 6mm polyp--PAth--Tubular adenoma 07/09 [place] TSH & celiac testing WNL 04/11 ER visit [facility] SVT--resolved with adenosine. 03/11 EKG-scanned QTc [...] byetta, actos/avandia in past LDL 114/TG 291 DYSLIPIDEMIA, GOAL LDL BELOW 100 02/12/2009 Overview: Per Lipid Taxonomy. Tobacco [...] as of this encounter (statuses as of 01/19/2023) Resolved Problems Problem Noted Date Diagnosed Date [...] as of this encounter (statuses as of 01/19/2023) Immunizations Name Administration Dates Next Due COVID-19 [...] on file documented as of this encounter Progress Notes * Mike Mauro EMT-P - 01/18/2023 11:50 PM EST MEDICARE AMBULANCE INFORMATION SHEET Patient Admitted as an Inpatient: yes Certifying Physician/Ordering Service:[facility] [place] - Jannette Walker M.D. [facility] [address] [place] [address] Point of Mixing Plant Dumper (zip code required): Hospital - [facility] - [address]; [place] [address] Destination (Specify Name/Address): [facility] - [address]; [place] [address] Patient transported to nearest facility (capable of mgmt for Pt's condition): YES Total number of Loaded Miles: 67.6 miles Mode of Transport: Air Completed by: Mike Mauro EMT-P documented in this encounter Plan of Treatment Upcoming Encounters Date Type Department Care Team (Late st Contact Info) Description 01/20/2023 1:30 PM EST Office Visit Urology, [place] [address] [place] [address] Melissa Odonnell PA-C [address] [place] [address] 01/25/2023 9:30 AM EST Office Visit Vascular Surgery, [facility] [address] [place] [address] Robert Alejo MD [address] [place] [address] 02/08/2023 1:30 PM EST Office Visit Pharmacy, [facility] [address] [facility] [place] [address] Pharmacist2, [facility] [address] [facility] [place] [address] 2023 3:00 PM EDT Office Visit Family Practice [facility] [address] [place] [address] Jonny Donaldson MD [address] [place] [facility] [place] [address] Health Maintenance Due Date Last Done Comments Alpha-1 Antitrypsin 07/27/1973 DXA Scan 08/01/2021 08/01/2016 COVID-19 Vaccine ( season) 2022 01/24/2021, 01/04/2021, 06/03/2020 Mammogram 11/02/2022 11/02/2021, 09/27, 09/11/2019, Additional history exists HbA1c 06/06/2023 12/05/2022, 03/2021, 06/25/2021, Additional history exists Diabetic Eye Exam 10/13/2023 10/12/2022, , 07/01/2021, Additional history exists Albumin/Creatinine Ratio 12/06/2023 023, 06/25/2021, 07/30/2020, Additional history exists B-12 12/06/2023 12/05/2022, 04/2 10/2021, 11/21/2019, Additional history exists Depression Screening 12/17/2023 12/16/2022 Diabetic Foot Exam 12/17/2023 12/16/2022, 0 10/20/2020, 10/05/2017, Additional history exists GFR 01/19/2024 01/18/2023, 1010/2022, 12/22/2021, Additional history exists O2 ASSESSMENT COMPLETED IN PAST YEAR FOR COPD 01/19/2024 01/18/2023 DTaP,Tdap,and Td Vaccines (3 - Td or Tdap) 04/27/2028 04/27/2018, 08/28/2008, 11/22/1994 Hepatitis C Screening Completed 06/18/2002 Hepatitis B Completed 08/27/2009, 02/2009, 02/27/2009 Zoster Vaccines Completed 08/21/2019, 04/27, 08/06/2015 Pneumococcal Vaccine: 65+ Years Completed 01/28/2022, 10/20/2020, 11/15/1994 LUNG CANCER SCREENING - USE SMARTSET 37370 Completed 08/23/2022, 11/10/2020 Influenza Vaccine (FLU shot) Completed , 12/09/2021, 11/10/2020, Additional history exists GARDASIL-HPV IMMUNIZATION SERIES Aged Out No longer eligible based on patient's age to complete this topic MENINGOCOCCAL (MENACTRA/MENVEO) Aged Out No longer eligible based on patient's age to complete this topic documented as of this encounter Medical Devices Not on filedocumented as of this encounter Visit Diagnoses Diagnosis Arterial occlusion, lower extremity (HCC)- Primary Embolism and thrombosis of arteries of lower extremity documented in this encounter Care Teams Circular Knife Machine Cutter Relationship Specialty Start Date End Date Jonny Donaldson MD [address] [place] [address] PCP - General Family Medicine 05/27/14 documented as of this encounter
--- OUTSIDE RECORDS SUMMARY | 2023-03-02 22:37 | External Medical Summary ---
Author Name Unknown Address Unknown Organization K01:LABORATORY [facility] [place] - [address] [place] [address] Laboratory Report Ordering Provider Test Date Status MALENA BLACK 01/19/2023 04:58:00 Final Observation Date Value Abnormality Reference (Units ) Status BUN 01/19/2023 04:58:00 13 6-20 (mg/dL) Final Creatinine 01/19/2023 04:58:00 0.9 0.5-1.0 (mg/dL) Final Glomerular filtration rate/1.73 sq M.predicted [Volume Rate/Area] in Serum, Plasma or Blood by Creatinine-based formula (CKD-EPI) 01/19/2023 04:58:00 74 >=60 (mL/min) Final eGFR is calculated based on the CKD-EPI 2020 equation SODIUM 01/19/2023 04:58:00 136 135-146 (m mol/L) Final Potassium 01/19/2023 04:58:00 4.8 3.5-5.1 (m mol/L) Final Cl 01/19/2023 04:58:00 105 98-107 (mm ol/L) Final CO2 01/19/2023 04:58:00 21 Below low normal 22- 32 (mmol/L) Final Anion gap 01/19/2023 04:58:00 10 7-15 (mmol /L) Final Glucose 01/19/2023 04:58:00 194 Above high normal 70 -120 (mg/dL) Final Calcium 01/19/2023 04:58:00 8.1 Below low normal 8.4 -10.2 (mg/dL) Final Performing Location LABORATORY [facility] [place] - [address] [place] [address]
--- OUTSIDE RECORDS SUMMARY | 2023-03-02 22:37 | External Medical Summary ---
Author Name Unknown Address Unknown Organization K01:[facility] [place] [facility] [place] [address] [place] [address] Laboratory Report Ordering Provider Test Date Status MYLES MONTANO 01/18/2023 23:02:00 Final Observation Date Value Abnormality Reference (Units ) Status ABO 01/18/2023 23:02:00 O Final RH 01/18/2023 23:02:00 Positive Final RED BLOOD CELL ANTIBODY SCREEN 01/18/2023 23:02:00 Negative Final SPECIMEN EXPIRATION DATE 01/18/2023 23:02:00 01/21/2023 23:59 Final Performing Location [facility] [place] [facility] [place] [address] [place] [address]
--- OUTSIDE RECORDS SUMMARY | 2023-03-02 22:37 | External Medical Summary ---
Author Name Unknown Address Unknown Organization K01:[facility]ORY [facility] [place] [address] [place] [address] Laboratory Report Ordering Provider Test Date Status MYLES MONTANO 01/19/2023 00:28:00 Final Warfarin Therapy
INR: 2 .0-3.0 conventional anticoagulation
INR: 2.5- 3.5 high intensity anticoagulation Observation Date Value Abnormality Reference (Units ) Status PT 01/19/2023 00:28:00 12.2 11.6-15.2 (seconds) Final INR 01/19/2023 00:28:00 0.9 0.8-1.2 Final Performing Location LABORATORY [facility] [place] [address] [place] [address]
[2023-03-03] MEDS: CEFEPIME 2,000 MG in SYRINGE 0 ML IV SCH ×2 (00:28→13:14)
--- NOTE | 2023-03-03 02:44 | Magnetic Resonance Report ---
Exam(s): MRI RIGHT FOOT Without Contrast EXAM: MR Right Lower Extremity Without Intravenous Contrast, Foot CLINICAL HISTORY: Reason for exam: r/o osteomyelitis - right great toe ulcer. TECHNIQUE: Multiplanar magnetic resonance images of the right foot without intravenous contrast. COMPARISON: Right foot radiographs 03/02/19 FINDINGS: There is no acute fracture or dislocation. There is mild osteoarthritis of the first MTP joint. There is generalized subcutaneous edema, most pronounced at the level of the great toe. There is mild peripheral bone marrow edema within the first metatarsal head and proximal and distal phalanges of the great toe. There is no corresponding confluent T1 marrow signal hypointensity to suggest acute osteomyelitis. This pattern of marrow signal change favors reactive edema. No acute osteomyelitis is identified within the foot. Visualized tendons appear intact. Plantar plates appear intact. Microangiopathic changes are suggested within the intrinsic muscles of the foot. IMPRESSION: 1. Diffuse subcutaneous edema, most pronounced at the level of the great toe, potentially cellulitis. 2. The soft tissue ulcer described in the clinical history is poorly visualized by MRI. Correlate with exam. 3. Mild reactive marrow edema within the great toe. No characteristic marrow signal changes of acute osteomyelitis. Electronically signed by: Hugo Dela Cruz M.D. 03/03/23 02:24 AM
[2023-03-03] MEDS: VANCOMYCIN HCL 1,000 MG in SODIUM CHLORIDE 0.9% 250 ML IV SCH ×2 (03:28→16:43)
[2023-03-03 05:26] LABS: Hemoglobin 11.2 g/dl (12.0-16.0); Mean Corpuscular Hemoglobin 23.5 pg (25.0-34.0); Mean Corpuscular Hgb Conc 29.5 g/dL (32.0-36.0); Mean Corpuscular Volume 79.8 fL (80.0-100.0); Mean Platelet Volume 10.8 fL (9.4-12.4); Platelet Count 143 K/uL (130-400); RDW Coefficient of Variation 18.3 % (11.5-14.5); RDW Standard Deviation 53.2 fL (36.4-46.3); Red Blood Count 4.76 M/uL (4.20-5.40); White Blood Count 8.39 K/ul (4.8-10.8)
[2023-03-03 05:41] LABS: BUN Creatinine Ratio 13.6 (10-20); Calcium 8.7 mg/dl (8.6-10.3); Creatinine Clr Calc Pharmacy 92.7 ml/min; Est GFR (African American) 87.1 ml/min; Est GFR (Non-African American) 75.2 ml/min; Potassium 4.5 mmol/L (3.5-5.1)
[2023-03-03 07:17] LABS: Estimated Average Glucose 229 mg/dl; Hemoglobin A1C 9.6 % (4.5-5.6)
[2023-03-03] MEDS: EMPAGLIFLOZIN 10 MG TAB PO SCH (07:49)
[2023-03-03] MEDS: ATORVASTATIN 40 MG TAB PO SCH (07:49)
[2023-03-03] MEDS: ASPIRIN 81 MG ECTAB PO SCH (07:49)
[2023-03-03] MEDS: ADVANCED PROBIOTIC 1250 MG CAPSULE PO SCH (07:50)
[2023-03-03] MEDS: SERTRALINE HCL 100 MG TABLET PO SCH (07:50)
[2023-03-03] MEDS: RIVAROXABAN 2.5 MG TAB PO SCH ×2 (07:51→20:43)
[2023-03-03] MEDS: VIBEGRON 75 MG TAB PO SCH (07:51)
[2023-03-03] MEDS: LANTUS PER UNIT CHARGE SQ SCH ×2 (08:27→20:41)
[2023-03-03] MEDS: INSULIN ASPART PER UNIT CHARGE SC SCH ×4 (09:06→20:41)
[2023-03-03] MEDS: METOPROLOL SUCC 25MG EXT REL TAB PO SCH (09:07)
--- OUTSIDE RECORDS SUMMARY | 2023-03-03 11:51 | External Medical Summary | Summary of Care ---
Author Name Unknown Organization [facility] Address [address] [place] [address] Phone [phone] Care Team Providers Care Wooden Frame Builder Name Role Phone Jonny Donaldson MD Primary Care Provider + Encounter Details Date Type Department Care Team (Late st Contact Info) Description 03/01/2023 Telephone Vascular Surg [facility] [address] [place] [address] Aracelis Pandey PA-C [address] [place] [address] Allergies Active Allergy Reactions Criticality [...] 06/27/2013 Overview: 06/24/13 +CP-abnormal stress->cath @[facility]. 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 85% Circ (stented RACHAEL), LAD 20%. EF shows inferior hypokinesis EF 45% Stent--Medtronic Resolute INtegrity Zotarolimus stent Circumflex. 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 10/[address] [facility] 3 3-5 polyps PATH colon-polypoid mucosa mild hyperplastic changes. Rectal polyp= hyperplastic polyp. Dr Juan Mak [facility] (11/19 06/14 Cologuard WNL. Cardiology-Jeffrey Campos [place]. 12/17 Carotid 50-69% left ICA stenosis. Vielka [...] PFT evidence of COPD ) 05/10 TTE @[place] Pzcbldzulm-ztaj-pyiotw EF, mild LVH, Gr1 Feldman Dys 07/09 colonoscopy [facility] Endoscopy [place]-3 & 6mm polyp--PAth--Tubular adenoma 07/09 [place] TSH & celiac testing WNL 04/11 ER [facility] SVT--resolved with adenosine. 03/11 EKG-scanned QTc 414 [...] mRNA, LNP-s, No Pre serve, 2-Dose Series (Mobbles) 01/24/2021,01/04/2021,06/03/2020 Hepatitis B, 20+ yrs 08/27/2009,03/30/2009,02/27 Pneumococcal [...] 03/03/2023 10:05 AM EST Hospital En[place] [facility] [facility] [address] [place] [address] Willian Rosas MD [address] [place] [address] 03/03/2023 10:05 AM EST - 03/03/2023 12:05 PM EST Surgery [place] [facility] [facility] [address] [place] [address] Willian Rosas MD [address] [place] [address] IMAGING SUPERVISION & INTERPRETATION EXTREMITY UNILATERAL 03/15/2023 11:45 AM EST [facility] [address] [place] [address] Willian Rosas MD [address], [place] [id number] 04/05/2023 11:30 AM EST Pharm[address]acy, [address] [address] Pharmacist2, [facility] [address] [address] 04/12/2023 11:30 AM EST Appointment Vascular Lab [place] [address] [place] [address] 04/12/2023 12:30 PM EST Appointment [facility]ascular [facility] [place] [address] [place] [address] 04/12/2023 1:00 PM EST Office Visit Vascular Surg [place] [address] [place] [address] Willian Rosas MD [address] [place] [address] 06/21/2023 10:15 AM EDT Office Visit Urology, [facility] [address] [facility] [place] [address] William Doe MD [address] [facility] [address] [place] [address] 2023 3:00 PM EDT Office Visit Family Practice [facility] [address] [facility] [place] [address] Jonny Donaldson MD 132 [facility] [address] Scheduled Procedures Name Priority Associated Diagnoses Date/Ti [...] 11/15/1994 LUNG CANCER SCREENING - USE SMARTSET [id number] Completed 08/23/2022, 11/10/2020 Influenza Vaccine (FLU shot) Completed , 12/09/2021, 11/10/2020, Additional history exists GARDASIL-HPV IMMUNIZATION SERIES Aged Out No longer eligible based on patient's age to complete this topic MENINGOCOCCAL (MENACTRA/MENVEO) Aged Out No longer eligible based on patient's age to complete this topic documented as of this encounter Medical Devices Implanted Type Area High School Chemistry Teacher Device Identifier Shelf Expiration Date Model / Serial / Lot Greater Than 80cm, 3mm-8mm Flora, Angiograft Pvd Saphenous Veins, Cryopreserved Implanted:Qty: 1 on 01/19/2023 by Willian Rosas MD at [place] [facility] Right: Leg Upper LIFENET 07/29/2026 CV>80 / [id number] / [id number] documented as of this encounter Advance [...] Advance Directives occurred with: Patient Care Teams Wooden Frame Builder Relationship Specialty Start Date End Date Jonny Donaldson MD [address] [facility] [place] [address] PCP - General Family Medicine 05/27/14 documented as of this encounter
--- OUTSIDE RECORDS SUMMARY | 2023-03-03 11:51 | External Medical Summary | Summary of Care ---
Author Name Unknown Organization [facility] Address [address] [place] [address] Phone [phone] Care Team Providers Care Rock Climbing Instructor Name Role Phone Jonny Donaldson MD Primary Care Provider + Encounter Details Date Type Department Care Team (Latest Contact Info) Description 03/01/2023 11:00 AM EST - 03/01/2023 11:59 PM EST Hospital Encounter Vascular Lab [facility] [address] [place] [address] Arrived Discharge Disposition: Home - [...] diabetes mellitus with renal manifestations, uncontrolled(250.4 2) ([facility]) Take one pill daily 100 Tab 3 01/28/2014 Active fluticasone (FLONASE) 50 MCG/ACT nasal spray Administer 2 Sprays into each nostril 2 times a day. 18.2 mL 5 10/14/2019 Active OneTouch Ultra Blue In Vitro Strip (Glucose Blood)Indications: Type 2 diabetes mellitus with hemoglobin A1c goal of less than 8.0% ([facility]) Use up to 3 times Daily E11.9 poorly controlled. 200 Strip 11 03/11/2021 Active BD Pen Needle Tanja U/F 32G X 4 MM (Insulin Pen Needle)Indications :Type 2 diabetes mellitus with hemoglobin A1c goal of less than 8.0% ([facility]) USE TO INJECT INSULIN 2-3 times [...] hemoglobin A1c goal of less than 8.0% ([facility]) Inject 15 Units under the skin in [...] artery disease) 06/27/2013 Overview: 06/24/13 +CP-abnormal stress->cath @[facility]. 100% occlusion RCA with left- right [...] Medical Center Episode June 2011 around 03/12/12 [place] hosp-P175 SVT--sched for [place] EP study Routine general medical exam ination at a health care facility 11/11/2011 Overview: 01/18 Carotid US [place] stable 50-69 on left. 10/18 colonoscopy [facility] 3 3-5 polyps PATH colon-polypoid mucosa mild hyperplastic changes. Rectal polyp= hyperplastic polyp. Dr Juan Mak [facility] (11/19 06/14 Cologuard WNL. Cardiology-Jeffrey Campos [place]. 12/17 Carotid 50-69% left ICA stenosis. Vielka done 07/18. 12/17 TTE normal EF Gr1 Jessica dys. Mild MR/TR. Aortic sclerosis 10/12 colonoscopy-polyps tubular adenomas. VIELKA 1y poor prep needs 2d prep--declined, 3/18 cologuard ordered. August 2014-cont Brilinta PFTs--reduced FEV1 and FVC with a normal obstruction index. Post bronchodilator testing failed to demonstrate a significant improvement in FEV1 or FVC. The total lung capacity is mildly reduced (restricted rather than obstructed. Some of the changes consistent with obesity. No good PFT evidence of COPD ) 05/10 TTE @[place] Sbjbcvtmdw-pqrm-kbhnvr EF, mild LVH, Gr1 Jessica Dys 07/09 colonoscopy [facility] [place]-3 & 6mm polyp--PAth--Tubular adenoma 07/09 [place] TSH & celiac testing WNL 04/11 ER visit [facility] SVT--resolved with adenosine. 03/11 EKG-scanned QTc [...] mRNA, LNP-s, No Pre serve, 2-Dose Series (NetSpend) 01/24/2021,01/04/2021,06/03/2020 Hepatitis B, 20+ yrs 08/27/2009,03/30/2009,02/27 Pneumococcal [...] 03/03/2023 10:05 AM EST Hospital En[place] [facility] [facility] [address] [place] [address] Willian Rosas MD [address], [place] [id number] 03/03/2023 10:05 AM EST - 03/03/2023 12:05 PM EST Surgery [place] [facility] [address], [place] [phone] Willian Rosas MD [address] [place] [address] IMAGING SUPERVISION & INTERPRETATION EXTREMITY UNILATERAL 03/15/2023 11:45 AM EST Office Visit Vascular Surg [facility] [place] [address], [place] [id number] Willian Rosas MD [address] [place] [address] 04/05/2023 11:30 AM EST Pharmacy Pharmacy, [facility] [place] [address] [address] Pharmacist2, [facility] [address] [place] [address] 04/12/2023 11:30 AM EST Appointment Vascular Lab [facility] [address], [place] [phone] 04/12/2023 12:30 PM EST Appointment Vascular Lab [address] [address] 04/12/2023 1:00 PM EST Office Visit Vascular Surg [facility] [place] [address] [place] [address] Willian Rosas MD [address] [place] [address] 06/21/2023 10:15 AM EDT Office Visit Urology, [facility] [address] [place] [address] William Doe MD [address] [place] [address] [address] 2023 3:00 PM EDT Office Visit Family Practice [facility] [place] [address] Jonny Donaldson MD 132 [place] [address] Scheduled Procedures Name Priority Associated Diagnoses Date/Ti [...] 11/15/1994 LUNG CANCER SCREENING - USE SMARTSET [id number] Completed 08/23/2022, 11/10/2020 Influenza Vaccine (FLU shot) Completed , 12/09/2021, 11/10/2020, Additional history exists GARDASIL-HPV IMMUNIZATION SERIES Aged Out No longer eligible based on patient's age to complete this topic MENINGOCOCCAL (MENACTRA/MENVEO) Aged Out No longer eligible based on patient's age to complete this topic documented as of this encounter Medical Devices Implanted Type Area Mental Hygiene Consultant Device Identifier Shelf Expiration Date Model / Serial / Lot Greater Than 80cm, 3mm-8mm Flora, Angiograft Pvd Saphenous Veins, Cryopreserved Implanted:Qty: 1 on 01/19/2023 by Willian Rosas [place] [facility] [place]: Leg Upper LIFENET 07/29/2026 CV>80 / [id number] documented as of this encounter Procedures Procedure Name Priority Date/Time Associated Diagnosis Comments VASC VEIN MAP BYPASS GRAFT PREOP EVAL Routine 03/01/2023 11:34 AM EST PAD (peripheral artery disease) (HCC) Skin ulcer of right great toe, unspecified ulcer stage (HCC) documented in this encounter Results * VASC VEIN MAP BYPASS GRAFT PREOP EVAL (03/01/2023 11:34 AM EST) Anatomical Region Laterality Modality Extremity, Vascular Ultrasound Narrative 03/01/2023 3:36 PM EST VASCULAR LAB RESULTS DATE OF EXAM: 03/01/23 PRESENTING CONDITIONS: evaluate for leg bypass; look at veins in arms PHYSICIAN REPORT UPPER EXTREMITY PRE-OP VEIN MAPPING Immediately before proceeding with the vascular lab procedure reported below, the identity of the patient, the correct exam, and the correct procedural site were verified. Molina scale, color flow and spectral doppler were performed for this examination. The right cephalic vein is patent and measures: Proximal upper arm 3.92 mm Mid-upper arm 4.34 mm Antecubital fossa 4.20 mm Mid-forearm 3.47 mm Wrist 3.53 mm The right basilic vein is patent and measures: Proximal upper arm 3.63 mm Mid-upper arm 4.16 mm Antecubital fossa 3.53 mm The left cephalic vein is patent and measures: Proximal upper arm 3.98 mm Mid-upper arm 3.87 mm Antecubital fossa 4.20 mm Mid-forearm 3.25 mm Wrist 3.15 mm The left basilic vein is patent and measures: Proximal upper arm 6.65 mm Mid-upper arm 4.65 mm Antecubital fossa 4.35 mm CONCLUSION: Patent right cephalic and basilic veins with sizes as noted above. Patent left cephalic and basilic veins with sizes as noted above. Evelyn BROWNE VASCULMalia R documented in this encounter Advance Directives Latest [...] Advance Directives occurred with: Patient Care Teams Rock Climbing Instructor Relationship Specialty Start Date End Date Jonny Donaldson MD [address] [address] PCP - General Family Medicine 05/27/14 documented as of this encounter
[2023-03-03] MEDS: GABAPENTIN 300 MG CAP PO SCH ×2 (13:14→20:43)
--- NOTE | 2023-03-03 13:22 | Podiatry Consultation ---
Date of Consultation March 03, 2023 Assessment & Plan (1) Diabetic ulcer of right great toe: (2) Severe sepsis: (3) PAD (peripheral artery disease): Plan Patient was examined and evaluated. We discussed at length etiology and treatment of her right hallux wound. The MRI does not reveal any severe underlying infectious changes to the great toe. She likely has some cellulitis associated with the ulcer, though there is not any obvious osteomyelitis or abscess formation. She clearly has some sepsis at this point from either the foot or her arterial procedure surgical site. She should continue with IV antibiotics while here in the hospital and would likely benefit from surgical debridement of the ulceration. As long as she improves or is stable, she can have this performed on an outpatient basis, assuming this is not the source of her cellulitis. She would benefit from continued vascular care, either here with the vascular surgeons or on a transfer to the [facility] group for continued care with her prior surgeon. If she is transferred, she will likely have surgical intervention on her ulcer at that time as well. We did discuss that if she were to have surgery on her foot prior to revascularization, she is at risk of amputation of the toe or a higher level of amputation if her infection continues to spread. For now, we will continue to monitor her without any definitive surgical plans for now. If she remains inpatient and stabilizes over the weekend, we can consider surgical debridement of the ulcer next week. Otherwise, we will continue to follow up with her on an outpatient basis. For now, I would recommend she see vascular surgery if she is to remain hospitalized here. She will also benefit from a wound care assessment, though can benefit from a Betadine wet to dry dressing to the great toe for now. We will continue to monitor. Thank you for the consult. We look forward to helping provide her with care as long as she remains hospitalized. History of Present Illness Reason for Consultation: Right hallux ulceration with infection Attending Physician: Kellen Mack MD History of Present Illness This patient is a long-standing patient of mine who presented to the hospital with acute infection beginning on . She states that she had been following up with her vascular surgeon for care of her bypass graft recently developed acute infection. She states that she is feeling feverish with chills, nausea, and vomiting on . She discussed this with her physician who sent her to the emergency department for further follow-up. She was admitted to the hospital yesterday, late afternoon, though has had significant improvement since her admission on IV antibiotics. Overall, she is doing well now and has had a clean, dry dressing on her great toe since admission. She is unsure if she was getting ill from the toe ulcer or if it was because of her vascular surgery site. She was last seen in our office several weeks ago and was instructed to follow-up with wound care and the emergency department if she is feeling sick, which she currently has done. Allergies Allergy/AdvReac Type Severity Reaction Status Date / Time paroxetine Allergy Severe HIVES;ANAPHYLAXIS-GENERIC Verified 01/18/23 18:54 BRAND nickel Allergy Intermediate RASH Verified 01/18/23 18:54 Penicillins Allergy Intermediate RASH Verified 01/18/23 18:54 Sulfa (Sulfonamide Allergy Intermediate RASH Verified 01/18/23 18:54 Antibiotics) doxepin AdvReac Intermediate HYPOTENSION Verified 01/18/23 18:54 Home Medications Medication Instructions Recorded Confirmed Type albuterol sulfate 90 mcg/actuation 2 puff inhalation Q4H PRN 01/18/23 03/02/23 History aerosol inhaler COUGH/WHEEZING amitriptyline 50 mg tablet 50 mg PO HS 01/18/23 03/02/23 History aspirin 81 mg chewable tablet 81 mg PO QAM 01/18/23 03/02/23 History atorvastatin 80 mg tablet 80 mg PO DAILY 01/18/23 03/02/23 History empagliflozin 10 mg tablet 10 mg PO QAM 01/18/23 03/02/23 History (Jardiance) fluticasone propionate 50 2 spray intranasal BID PRN 01/18/23 03/02/23 History mcg/actuation nasal Congestion spray,suspension gabapentin 300 mg capsule 300 mg PO BID 01/18/23 03/02/23 History insulin aspart U-100 100 unit/mL 15 unit subcut TIDM 01/18/23 03/02/23 History (3 mL) subcutaneous pen (Novolog FlexPen U-100 Insulin aspart) insulin glargine 100 unit/mL (3 54 unit subcut HS 01/18/23 03/02/23 History mL) subcutaneous pen (Basaglar KwikPen U-100 Insulin) krill oil 1,000 mg-om3 130 mg-dha 1 cap PO QAM 01/18/23 03/02/23 History 40 mg-epa 80 ga-yj0-hkt-astax cap (Krill Oil (Follansbee 3 and 6)) liraglutide 0.6 mg/0.1 mL (18 mg/3 1.2 mg subcut DAILY PRN FASTING 01/18/23 03/02/23 History mL) subcutaneous pen injector BSG > 150 (Victoza 2-Jayy) lorazepam 0.5 mg tablet 0.5 mg PO Q8H PRN ANXIETY/INSOMNIA 01/18/23 03/02/23 History metformin 850 mg tablet 850 mg PO TIDM 01/18/23 03/02/23 History metoprolol succinate 25 mg 25 mg PO QAM 01/18/23 03/02/23 History tablet,extended release 24 hr mirabegron 50 mg tablet,extended 50 mg PO QAM 01/18/23 03/02/23 History release 24 hr (Myrbetriq) rivaroxaban 2.5 mg tablet (Xarelto) 2.5 mg PO BID 01/18/23 03/02/23 History ropinirole 0.5 mg tablet 0.5 mg PO HS 01/18/23 03/02/23 History sertraline 50 mg tablet 100 mg PO QAM 01/18/23 03/02/23 History tramadol 50 mg tablet 50 - 100 mg PO Q6H PRN Pain 01/18/23 03/02/23 History Lactobacillus acidophilus 250 1,000 mmu cells PO DAILY 03/02/23 03/02/23 History million cell capsule (Probiotic Acidophilus) cranberry fruit concentrate 250 mg 250 mg PO DAILY 03/02/23 03/02/23 History chewable tablet (Azo Cranberry) docusate sodium 100 mg capsule 100 mg PO BID PRN Constipation 03/02/23 03/02/23 History doxycycline hyclate 100 mg capsule 100 mg PO AMHS 03/02/23 03/02/23 History Patient History Medical History Nocturnal hypoxemia due to emphysema currently using 4L O2 at night Carotid artery stenosis Dyslipidemia GERD without esophagitis History of stroke History of nonmelanoma skin cancer Right inguinal hernia HTN (hypertension) Sensorineural hearing loss SVT (supraventricular tachycardia) Urge incontinence Diabetic macular edema Diabetic retinopathy, nonproliferative COPD (chronic obstructive pulmonary disease) Stenosis of right subclavian artery PAD (peripheral artery disease) CAD (coronary artery disease) Type 2 diabetes mellitus with diabetic neuropathy Surgical History History of cholecystectomy Hx of sinus surgery Status post breast lumpectomy Hx of tubal ligation H/O: hysterectomy H/O cardiac radiofrequency ablation History of right-sided carotid endarterectomy S/P carpal tunnel release S/P femoropopliteal bypass surgery S/P drug eluting coronary stent placement S/P CABG x 3 Family History Other Cancer Diabetes Hypertension Social History Smoking Status: Former smoker Smoking End Date: 12/08/21; Hx Alcohol Use: No Hx Substance Use: No Preferred Language: Canadian Communication Ability: Effective Circuit Walker Required: No Beliefs That Will Affect Care: None Current Living Situation: Spouse Other Information That Helps Us Care for You: No Feels Safe at Home: Yes Safety Concerns: Feels Safe At This Time Assistive Devices: None Review of Systems Review of Systems: All systems reviewed & are unremarkable except as noted in HPI & below Constitutional: + fever, + chills and + fatigue Eyes: as per Subjective / HPI; no problem reported Ear, Nose, Mouth, Throat: no problem reported Respiratory: no problem reported Cardiovascular: no chest pain and no problem reported Gastrointestinal: + nausea and + vomiting Genitourinary: no problem reported Musculoskeletal: + muscle weakness Integumentary: + skin ulcer and + wounds Neurologic: + loss of sensation, + tingling and + nu mbness Psychiatric: no problem reported Endocrine: + fatigue Hematologic / Lymphatic: no problem reported Physical Exam Physical Exam: Right lower extremity focused exam: Vascular: DP/PT pulses 0/4 bilaterally. CFT is delayed to the toes. Erythema is noted to the right lower extremity with calor noted extending to the right calf. Atrophic skin changes are noted with no hair growth noted to the digits. Musculoskeletal: Muscle strength is equal bilaterally with no focal weakness appreciated. Ankle equinus is noted bilaterally. No pain on palpation or range of motion of the bilateral lower extremity is noted. Mild hammertoe deformities are appreciated with mild decreased range of motion to the first metatarsal phalangeal joint. No crepitus on range of motion of the bilateral foot and ankle joints. Integumentary: well-circumscribed neuropathic ulceration is noted to the anteromedial aspect of the right hallux. This is consistent with her peripheral neuropathy and vascular disease. Ulceration is 1 cm in diameter and is 100% fibrotic. It does not probe deep to bone and there is no active bleeding appreciated on clinical exam. There is erythema locally. No severe malodor is appreciated. Neurological: Protective sensation is absent to the bilateral foot. No pain on palpation of the right hallux is appreciated. Diffuse pain is related throughout the lower extremity, consistent with her peripheral neuropathy. Constitutional: + ill appearing and + obese; no acute di stress Eyes: PERRL, conjunctivae normal, anicteric sclerae ENMT: external ear and nose normal, oropharynx normal Neck: trachea midline, no thyromegaly Respiratory: normal respiratory effort, lungs clear to auscultation Auscultation: + wheezes Cardiovascular: Rate/Rhythm: regular rate and regular rhythm Vessels: + posterior tibial pulses abnormal and + dorsalis pedis pulses abnormal Gastrointestinal (Abdomen): normal bowel sounds, soft, nontender, no hepatosplenomegaly Musculoskeletal: Extremities: + limited ROM of extremities, strength 5/5 throughout and + foot abnormality Gait: + antalgic gait Ankle: + skin erythema Skin: no rashes, warm and dry + ulcer, + skin atrophy and + dry skin Neurologic: moves all extremities; + abnormal touch/pain/proprioception, + abnormal sensation to monofilament and no focal motor deficits Psychiatric: A+Ox3, euthymic affect Results & Data Vital Signs (Past 12 Hours) Vital Signs Pulse Pulse Resp BP BP Pulse Ox O2 Del Method 03/03/23 08:34 97 H 129/86 03/03/23 07:53 97 H 18 100/61 90 Room Air 03/03/23 07:42 98 H 03/03/23 03:59 Nasal Cannula 03/03/23 03:00 103/62 03/03/23 03:00 109 H 18 93 03/03/23 02:00 104 H 21 111/69 98 03/03/23 01:42 104 H 20 108/67 O2 Flow Rate 03/03/23 08:34 03/03/23 07:53 03/03/23 07:42 03/03/23 03:59 4 03/03/23 03:00 03/03/23 03:00 03/03/23 02:00 03/03/23 01:42
[2023-03-03 14:07] LABS: A calco-baum cmplx NotReported Not Detected (NotDetected); Bact fragilis Not Reported Not Detected (NotDetected); Blood Culture Id Panel See PCR Comment (NotDetected); C auris Not Reported Not Detected (NotDetected); CTX-M Resistant Gene Not Detected (NotDetected); Calbicans Not Reported Not Detected (NotDetected); Candida glabrata Not Reported Not Detected (NotDetected); Candida krusei Not Reported Not Detected (NotDetected); Cneoformans/gatti Not Reported Not Detected (NotDetected); Cparapsilosis Not Reported Not Detected (NotDetected); E cloacae compx Not Reported Not Detected (NotDetected); Efaecalis Not Reported Not Detected (NotDetected); Efaecium Not Reported Not Detected (NotDetected); Enterobacterales Not Reported DETECTED (NotDetected); Escherichia coli Not Reported Not Detected (NotDetected); H influenzae Not Reported Not Detected (NotDetected); IMP Resistant Gene Not Detected (NotDetected); K aerogenes Not Reported Not Detected (NotDetected); KPC Resistant Gene Not Detected (NotDetected); Koxytoca Not Reported Not Detected (NotDetected); Kpneumoniae grp Not Reported Not Detected (NotDetected); Lmonocyt Not Reported Not Detected (NotDetected); N meningitidis Not Reported Not Detected (NotDetected); NDM Resistant Gene Not Detected (NotDetected); OXA 48 Like Resistant Gene Not Detected (NotDetected); P aeruginosa Not Reported Not Detected (NotDetected); Proteus spp Not Reported Not Detected (NotDetected); Salmonella spp Not Reported Not Detected (NotDetected); Smarcescens Not Reported Not Detected (NotDetected); Staph lugdunensis Not Reported Not Detected (NotDetected); Staph spp. Not Reported Not Detected (NotDetected); Staphaureus Not Reported Not Detected (NotDetected); Staphepi Not Reported Not Detected (NotDetected); Stenmaltophilia Not Reported Not Detected (NotDetected); Strep agal(GrpB) Not Reported Not Detected (NotDetected); Strep pneum Not Reported Not Detected (NotDetected); Strep pyog (GrpA) Not Reported Not Detected (NotDetected); Strep spp Not Reported Not Detected (NotDetected); VIM Resistant Gene Not Detected (NotDetected)
[2023-03-03 14:16] LABS: Enterobacterales DETECTED (NotDetected)
--- NOTE | 2023-03-03 15:32 | Hospitalist Progress Note ---
Date of Service March 03, 2023 Assessment & Plan (1) Severe sepsis: Plan: This is a 67 y/o female with insulin-requiring DM2, CAD s/p CABG x 3 (06/19), PAD w/ recent emergent revascularlization of the RLE, COPD/emphysema, diabetic retinopathy and macular edema, diabetic neuropathy, hx SVT, HTN, prior CVA, anxiety/depression, dyslipidemia, and other history as outlined below who was referred to the ED today for possible sepsis. On initial presentation, pt was hypotensive with systolic BP in the 60s, tachycardic >100, tachypnea. Initial lactic acid was 2.3, rpt 2.8. Procal elevated at 10.65. Initial troponin 48.6, rpt 63.3. Given 1L of IVF in the ED but second liter held due to concerns for pulmonary edema. Did not require Levophed drip although initially ordered. Cefepime given for broad-spectrum coverage and pt referred for admission. Presumed source of sepsis is known right great toe ulcer, pt has been on doxycycline from vascular. -Likely secondary to infected recent surgical site/right big toe ulceration and cellulitis - ED provider discussed pt with vascular surgery at [facility] where pt follows - they agree with our plan to stabilize the patient and work-up further here before determining potential need for transfer vs. discharge with outpatient follow-up - Continue IV cefepime but broaden coverage to include MRSA coverage with Vanco. -Blood cultures 1 out of 2 bottle is growing gram-negative bacilli - MRI of right foot did not show any osteomyelitis -Appreciate sheet catcher input and recommendation-conservative management versus I&D and amputation -Feeling a bit better (2) Demand ischemia: Plan: Initial troponin 48.6, rpt 63.3. Pt denies any anginal symptoms but has a history of CAD with CABG x 3 in 2022. - Will trend troponin Q6hrs x 2-troponins moderately elevated from 48.6 on admission to 98.8 without any acute EKG changes - Check ECHO showed: LV is normal in size, moderate concentric LVH, mild hypokinesis of the apical septum with otherwise preserved wall motion and normal LV systolic function, EF 60 to 65%, grade 1 diastolic dysfunction, there is mild aortic valve calcification greatest on the noncoronary cusp, no hemodynamically significant valvular aortic stenosis, there is mild mitral annular calcification, there is trace mitral regurgitation and trace tricuspid regurgitation -- Cautiously resume pt's beta-wojciech as BP has improved, hx of CAD s/p CABG -Troponin elevation is due to sepsis -Doubt any ACS but will repeat another troponin (3) Hypomagnesemia: Plan: Mg today of 1.2 - pt reports that she was previously on supplemental magnesium but a provider told her to stop it - Replete mag IV -Magnesium level has been normalized (4) Diabetic ulcer of right great toe: Plan: - Wound culture - Wound care consult - Podiatry consult-appreciate input and recommendation for possible I&D/amputation with ongoing conservative management (5) Type 2 diabetes mellitus with diabetic neuropathy: Plan: - Continue basal insulin, sliding scale - Diabetic diet - Metformin on hold - A1c in the AM------ hemoglobin A1c is elevated at 9.6 - BSG ACHS (6) CAD (coronary artery disease): Plan: Suspect demand ischemia as cause of troponin elevation - currently asymptomatic As above (7) PAD (peripheral artery disease): Plan: See plan for #1 Will resume rivaroxaban 2.5 mg BID since no immediate surgical intervention anticipated - pt was started on by vascular after surgery in Dec consult vascular surgery (8) Morbid obesity due to excess calories: (9) COPD (chronic obstructive pulmonary disease): Plan: Stable - continue prn rescue inhaler (10) HTN (hypertension): Plan: Hypotensive on presentation due to severe sepsis - plan as above (11) Dyslipidemia: Plan: Chronic - continue statin (12) Nocturnal hypoxemia due to emphysema: Plan: On baseline 4L of O2 at HS - will continue (13) Stenosis of right subclavian artery: Plan: No BPs in right arm per vascular Plan Continue other home medications as appropriate. Code Status: Full code DVT Prophylaxis: on rivaroxaban Admission and Anticipated Discharge Date Admission Date: March 02, 2023 Subjective 03/03/2023 The patient was seen and examined in emergency room She was sent in by her vascular surgeon for sudden onset of chills, weakness and nausea vomiting early this morning yesterday-03/02/2023 She was scheduled to have arteriogram and possible revascularization by her surgeon for the occluded graft on 03/03/2023 She has been feeling little better in the emergency room No fever and or chills now denies any pain in the leg Review of Systems Review of Systems: All systems reviewed and are unremarkable except as noted below Physical Exam Physical Exam: Lying in bed comfortably but very anxious Constitutional: well developed, well nourished, + ill appearing and + obese Eyes: PERRL, conjunctivae normal, anicteric sclerae ENMT: external ear and nose normal, oropharynx normal Neck: trachea midline, no thyromegaly Respiratory: no respiratory distress Auscultation: lungs clear to auscultation bilaterally and + diminished lung sounds Cardiovascular: Rate/Rhythm: regular rate and regular rhythm; not tachycardic Heart Sounds: normal S1, normal S2 and + murmur (2/6 ESM over precordium) Extremities: + edema (Trace to 1+ edema bilaterally. More on the right) Gastrointestinal (Abdomen): Inspection/Auscultation: normal bowel sounds; abdomen not distended Percussion/Palpation: abdomen soft; abdomen nontender Musculoskeletal: No acute arthritis involving any joint. Right big toe ulceration mostly on the medial side with swelling and redness. Peripheral pulses were not palpable Neurologic: normal touch/pain/proprioception and moves all extremities; no focal motor deficits Lymphatic: no cervical or axillary lymphadenopathy Results & Data Results & Data Vital Signs (Past 12 Hours) Vital Signs Pulse Pulse Resp BP Pulse Ox O2 Del Method O2 Flow Rate 03/03/23 08:34 97 H 129/86 03/03/23 07:53 97 H 18 100/61 90 Room Air 03/03/23 07:42 98 H 03/03/23 03:59 Nasal Cannula 4 Laboratory Results Short CBC 03/03/23 Range/Units 05:05 WBC 8.39 (4.8-10.8) K/ul Hgb 11.2 L (12.0-16.0) g/dl Hct 38.0 (37.0-47.0) % Plt Count 143 (130-400) K/uL BMP 03/03/23 05:05 Sodium 132 L Potassium 4.5 Chloride 100 Carbon Dioxide 25 BUN 11 Creatinine 0.81 Glucose 221 H Calcium 8.7 Medications Administered Current Inpatient Medications Acetaminophen (Acetaminophen 325 Mg Tab) 650 mg PO Q4H PRN PRN Reason: Pain or Fever Stop: 04/01/23 17:53 Albuterol (Albuterol Hfa 8 Gm Inhaler) 2 puffs INH Q4H PRN PRN Reason: COUGH/WHEEZING Stop: 04/01/23 17:53 Amitriptyline HCl (Amitriptyline Hcl 50 Mg Tab) 50 mg PO HS [facility] Stop: 04/01/23 20:59 Last Admin: 03/02/23 20:57 Dose: 50 mg Aspirin (Aspirin 81 Mg Ectab) 81 mg PO QAM [facility] Stop: 04/02/23 08:59 Last Admin: 03/03/23 07:49 Dose: 81 mg Atorvastatin Calcium (Atorvastatin 40 Mg Tab) 80 mg PO DAILY [facility] Stop: 04/02/23 08:59 Last Admin: 03/03/23 07:49 Dose: 80 mg Dextrose (Dextrose 50% 50 Ml Syringe) 25 - 50 ml IV UD PRN; Protocol PRN Reason: Hypoglycemia Protocol Stop: 04/01/23 16:31 Dextrose (Dextrose 50% 50 Ml Syringe) 25 - 50 ml IV UD PRN; Protocol PRN Reason: Hypoglycemia Protocol Stop: 04/01/23 17:53 Docusate Sodium (Docusate Sodium 100 Mg Cap) 100 mg PO BID PRN PRN Reason: Constipation Stop: 04/01/23 17:53 Empagliflozin (Empagliflozin 10 Mg Tab) 10 mg PO QAM [facility] Stop: 04/02/23 08:59 Last Admin: 03/03/23 07:49 Dose: 10 mg Gabapentin (Gabapentin 300 Mg Cap) 300 mg PO BID@1200,2100 [facility] Stop: 04/01/23 20:59 Last Admin: 03/03/23 13:14 Dose: 300 mg Glucagon (Glucagon For Inj 1 Mg Vial) 1 mg SQ UD PRN; Protocol PRN Reason: Hypoglycemia Protocol Stop: 04/01/23 16:31 Glucagon (Glucagon For Inj 1 Mg Vial) 1 mg SQ UD PRN; Protocol PRN Reason: Hypoglycemia Protocol Stop: 04/01/23 17:53 Glucose (Glucose 10 Tab/Tube) 4 - 8 tab PO UD PRN; Protocol PRN Reason: Hypoglycemia Treatment Stop: 04/01/23 17:53 Glucose (Glucose 40% Gel 15 Gm Tube) 15 - 30 gm PO UD PRN; Protocol PRN Reason: Hypoglycemia Protocol Stop: 04/01/23 17:53 Vancomycin HCl 1,000 mg/ (Sodium Chloride) 270 mls @ 200 mls/hr IV Q12H [facility] Stop: 03/10/23 03:59 Last Infusion: 03/03/23 05:04 Dose: Infused Cefepime HCl 2,000 mg/ Syringe 20 mls @ 5 mls/min IV Q12H [facility]; Protocol Stop: 03/10/23 00:00 Last Admin: 03/03/23 13:14 Dose: 5 mls/min Promethazine HCl 12.5 mg/ (Sodium Chloride) 50.5 mls @ 202 mls/hr IV Q6H PRN PRN Reason: Nausea And Vomiting Stop: 04/01/23 18:57 Insulin Aspart (Insulin Aspart Per Unit Charge) 0 units SC ACHS [facility] Stop: 04/01/23 17:59 Last Admin: 03/03/23 13:38 Dose: 11 units Insulin Glargine (Lantus Per Unit Charge) 20 units SQ BID [facility] Stop: 04/01/23 20:59 Last Admin: 03/03/23 08:27 Dose: 20 units Lactobacillus Acidophilus (Advanced Probiotic 1250 Mg Capsule) 2 cap PO DAILY [facility]; Protocol Stop: 04/02/23 08:59 Last Admin: 03/03/23 07:50 Dose: 2 cap Lorazepam (Lorazepam 0.5 Mg Tab) 0.5 mg PO Q8H PRN PRN Reason: ANXIETY/INSOMNIA Stop: 04/01/23 17:53 Metoprolol Succinate (Metoprolol Succ 25mg Ext Rel Tab) 25 mg PO QAM [facility] Stop: 04/02/23 08:59 Last Admin: 03/03/23 09:07 Dose: 25 mg Miscellaneous (Carbohydrates For Hypoglycemia ) 15 - 30 gm PO UD PRN PRN Reason: Hypoglycemia Protocol Stop: 04/01/23 16:31 Miscellaneous (Carbohydrates For Hypoglycemia ) 15 - 30 gm PO UD PRN PRN Reason: Hypoglycemia Protocol Stop: 04/01/23 17:53 Miscellaneous Information (Vancomycin Consult Active) 1 each N/A UD PRN PRN Reason: Consult Stop: 04/01/23 16:40 Ondansetron HCl (Ondansetron Inj 2 Mg/Ml 2 Ml Vial) 4 mg IV Q6H PRN PRN Reason: Nausea Stop: 04/01/23 17:53 Rivaroxaban (Rivaroxaban 2.5 Mg Tab) 2.5 mg PO BID [facility] Stop: 04/01/23 20:59 Last Admin: 03/03/23 07:51 Dose: 2.5 mg Ropinirole HCl (Ropinirole Hcl 0.25 Mg Tablet) 0.5 mg PO HS [facility] Stop: 04/01/23 20:59 Last Admin: 03/02/23 20:56 Dose: 0.5 mg Sertraline HCl (Sertraline Hcl 100 Mg Tablet) 100 mg PO QAM [facility] Stop: 04/02/23 08:59 Last Admin: 03/03/23 07:50 Dose: 100 mg Tramadol HCl (Tramadol Hcl 50 Mg Tablet) 50 mg PO Q6H PRN PRN Reason: Pain Stop: 04/01/23 17:53 Vibegron (Vibegron 75 Mg Tab) 75 mg PO DAILY [facility]; Protocol Stop: 04/02/23 08:59 Last Admin: 03/03/23 07:51 Dose: 75 mg (5) Type 2 diabetes mellitus with diabetic neuropathy Diabetes mellitus rodent exterminator insulin use: with rodent exterminator use Qualified Code(s): E11.40 - Type 2 diabetes mellitus with diabetic neuropathy, unspecified; Z79.4 - senior care (current) use of insulin (6) CAD (coronary artery disease) Coronary Disease-Associated Artery/Lesion type: [place] artery [place] vs. transplanted heart: [place] heart Associated angina: without angina Qualified Code(s): I25.10 - Atherosclerotic heart disease of [place] coronary artery without angina pectoris (9) COPD (chronic obstructive pulmonary disease) COPD type: emphysema Emphysema type: unspecified Qualified Code(s): J43.9 - Emphysema, unspecified (10) HTN (hypertension) Hypertension type: primary hypertension Qualified Code(s): I10 - Essential (p rimary) hypertension
[2023-03-03] MEDS: rOPINIRole HCL 0.25 MG TABLET PO SCH (21:36)
[2023-03-03] MEDS: AMITRIPTYLINE HCL 50 MG TAB PO SCH (21:36)
[2023-03-04] MEDS: CEFEPIME 2,000 MG in SYRINGE 0 ML IV SCH ×3 (00:37→23:58)
[2023-03-04] MEDS: VANCOMYCIN HCL 1,000 MG in SODIUM CHLORIDE 0.9% 250 ML IV SCH ×2 (03:59→17:22)
[2023-03-04] MEDS: ASPIRIN 81 MG ECTAB PO SCH (08:42)
[2023-03-04] MEDS: INSULIN ASPART PER UNIT CHARGE SC SCH ×4 (08:42→21:13)
[2023-03-04] MEDS: SERTRALINE HCL 100 MG TABLET PO SCH (08:43)
[2023-03-04] MEDS: ATORVASTATIN 40 MG TAB PO SCH (08:43)
[2023-03-04] MEDS: VIBEGRON 75 MG TAB PO SCH (08:43)
[2023-03-04] MEDS: EMPAGLIFLOZIN 10 MG TAB PO SCH (08:43)
[2023-03-04] MEDS: ADVANCED PROBIOTIC 1250 MG CAPSULE PO SCH (08:44)
[2023-03-04] MEDS: LANTUS PER UNIT CHARGE SQ SCH ×2 (08:44→21:13)
[2023-03-04] MEDS: RIVAROXABAN 2.5 MG TAB PO SCH ×2 (08:45→20:54)
[2023-03-04] MEDS: METOPROLOL SUCC 25MG EXT REL TAB PO SCH (08:50)
[2023-03-04 09:31] LABS: Est GFR (African American) 79.9 ml/min; Est GFR (Non-African American) 68.9 ml/min
[2023-03-04 09:33] LABS: Basophils # (auto) 0.02 K/uL (0.00-0.20); Basophils % (auto) 0.5 %; Eosinophils # (auto) 0.13 K/uL (0.00-0.50); Hematocrit (blood only) 39.3 % (37.0-47.0); Hemoglobin 11.6 g/dl (12.0-16.0); Immature Granulocytes # (auto) 0.01 K/uL (0.01-0.20); Immature Granulocytes % (auto) 0.2 %; Lymphocytes # (auto) 0.57 K/uL (1.20-3.40); Mean Corpuscular Hemoglobin 23.6 pg (25.0-34.0); Mean Corpuscular Hgb Conc 29.5 g/dL (32.0-36.0); Mean Platelet Volume 10.9 fL (9.4-12.4); Monocytes % (auto) 13.7 %; Neutrophils # (auto) 3.05 K/uL (1.40-6.50); Neutrophils % (auto) 69.6 %; Platelet Count 141 K/uL (130-400); RDW Coefficient of Variation 18.6 % (11.5-14.5); RDW Standard Deviation 53.2 fL (36.4-46.3); Red Blood Count 4.91 M/uL (4.20-5.40); White Blood Count 4.38 K/ul (4.8-10.8)
[2023-03-04 09:43] LABS: BUN Creatinine Ratio 18.4 (10-20); Calcium 8.5 mg/dl (8.6-10.3); Est GFR (African American) 79.9 ml/min; Est GFR (Non-African American) 68.9 ml/min; Potassium 4.9 mmol/L (3.5-5.1)
[2023-03-04] MEDS: GABAPENTIN 300 MG CAP PO SCH ×2 (12:07→20:55)
--- NOTE | 2023-03-04 14:54 | Hospitalist Progress Note ---
Date of Service March 04, 2023 Assessment & Plan (1) Severe sepsis: Plan: This is a 67 y/o female with insulin-requiring DM2, CAD s/p CABG x 3 (06/19), PAD w/ recent emergent revascularlization of the RLE, COPD/emphysema, diabetic retinopathy and macular edema, diabetic neuropathy, hx SVT, HTN, prior CVA, anxiety/depression, dyslipidemia, and other history as outlined below who was referred to the ED today for possible sepsis. On initial presentation, pt was hypotensive with systolic BP in the 60s, tachycardic >100, tachypnea. Initial lactic acid was 2.3, rpt 2.8. Procal elevated at 10.65. Initial troponin 48.6, rpt 63.3. Given 1L of IVF in the ED but second liter held due to concerns for pulmonary edema. Did not require Levophed drip although initially ordered. Cefepime given for broad-spectrum coverage and pt referred for admission. Presumed source of sepsis is known right great toe ulcer, pt has been on doxycycline from vascular. -Likely secondary to infected recent surgical site/right big toe ulceration and cellulitis - ED provider discussed pt with vascular surgery at [facility] where pt follows - they agree with our plan to stabilize the patient and work-up further here before determining potential need for transfer vs. discharge with outpatient follow-up - Continue IV cefepime but broaden coverage to include MRSA coverage with Vanco. -Blood cultures 1 out of 2 bottle is growing gram-negative bacilli - MRI of right foot did not show any osteomyelitis -Appreciate verification manager input and recommendation-conservative management versus I&D and amputation -Feeling a lot better today and denies any more chills, fever, pain in the leg, nausea and or vomiting -1 out of 2 blood culture is positive for gram-negative bacilli and further identification and sensitivity are pending -Remains hemodynamically stable with much improvement of general condition (2) Demand ischemia: Plan: Initial troponin 48.6, rpt 63.3. Pt denies any anginal symptoms but has a history of CAD with CABG x 3 in 2022. - Will trend troponin Q6hrs x 2-troponins moderately elevated from 48.6 on admission to 98.8 without any acute EKG changes - Check ECHO showed: LV is normal in size, moderate concentric LVH, mild hypokinesis of the apical septum with otherwise preserved wall motion and normal LV systolic function, EF 60 to 65%, grade 1 diastolic dysfunction, there is mild aortic valve calcification greatest on the noncoronary cusp, no hemodynamically significant valvular aortic stenosis, there is mild mitral annular calcification, there is trace mitral regurgitation and trace tricuspid regurg itation -- Cautiously resume pt's beta-wojciech as BP has improved, hx of CAD s/p CABG -Troponin elevation is due to sepsis -Doubt any ACS (3) Hypomagnesemia: Plan: Mg today of 1.2 - pt reports that she was previously on supplemental magnesium but a provider told her to stop it - Replete mag IV -Magnesium level has been normalized (4) Diabetic ulcer of right great toe: Plan: - Wound culture - Wound care consult - Podiatry consult-appreciate input and recommendation for possible I&D/amputation with ongoing conservative management (5) Type 2 diabetes mellitus with diabetic neuropathy: Plan: - Continue basal insulin, sliding scale - Diabetic diet - Metformin on hold - A1c in the AM------ hemoglobin A1c is elevated at 9.6 - BSG ACHS -Sliding scale has been modified as blood sugar is running very high (6) CAD (coronary artery disease): Plan: Suspect demand ischemia as cause of troponin elevation - currently asymptomatic As above (7) PAD (peripheral artery disease): Plan: See plan for #1 Will resume rivaroxaban 2.5 mg BID since no immediate surgical intervention anticipated - pt was started on by vascular after surgery in Dec consult vascular surgery No signs and or symptoms of ischemia involving the extremities (8) Morbid obesity due to excess calories: (9) COPD (chronic obstructive pulmonary disease): Plan: Stable - continue prn rescue inhaler (10) HTN (hypertension): Plan: Hypotensive on presentation due to severe sepsis - plan as above (11) Dyslipidemia: Plan: Chronic - continue statin (12) Nocturnal hypoxemia due to emphysema: Plan: On baseline 4L of O2 at HS - will continue (13) Stenosis of right subclavian artery: Plan: No BPs in right arm per vascular Plan Continue other home medications as appropriate. Code Status: Full code DVT Prophylaxis: on rivaroxaban Admission and Anticipated Discharge Date Admission Date: March 02, 2023 Subjective 03/03/2023 The patient was seen and examined in emergency room She was sent in by her vascular surgeon for sudden onset of chills, weakness and nausea vomiting early this morning yesterday-03/02/2023 She was scheduled to have arteriogram and possible revascularization by her surgeon for the occluded graft on 03/03/2023 She has been feeling little better in the emergency room No fever and or chills now denies any pain in the leg 03/04/2023 The patient was seen and examined in telemetry unit in presence of the She has been feeling much better and denies any more chills, fever, sweating and/or nausea vomiting Her blood sugar has been noted high and sliding scale will be adjusted Review of Systems Review of Systems: All systems reviewed and are unremarkable except as noted below Physical Exam Physical Exam: Lying in bed comfortably but very anxious Constitutional: well developed, well nourished, + ill appearing and + obese Eyes: PERRL, conjunctivae normal, anicteric sclerae ENMT: external ear and nose normal, oropharynx normal Neck: trachea midline, no thyromegaly Respiratory: no respiratory distress Auscultation: lungs clear to auscultation bilaterally and + diminished lung sounds Cardiovascular: Rate/Rhythm: regular rate and regular rhythm; not tachycardic Heart Sounds: normal S1, normal S2 and + murmur (2/6 ESM over precordium) Extremities: + edema (Trace to 1+ edema bilaterally. More on the right) Gastrointestinal (Abdomen): Inspection/Auscultation: normal bowel sounds; abdomen not distended Percussion/Palpation: abdomen soft; abdomen nontender Neurologic: normal touch/pain/proprioception and moves all extremities; no focal motor deficits Lymphatic: no cervical or axillary lymphadenopathy Results & Data Results & Data Vital Signs (Past 12 Hours) Vital Signs Temp Pulse Pulse Resp BP Pulse Ox O2 Del Method 03/04/23 11:56 36.7 C 79 18 116/67 97 Room Air 03/04/23 09:00 Room Air 03/04/23 07:59 36.6 C 88 18 98/64 L 90 Room Air 03/04/23 07:10 89 03/04/23 03:29 36.6 C 93 H 17 123/82 96 Nasal Cannula O2 Flow Rate 03/04/23 11:56 03/04/23 09:00 03/04/23 07:59 03/04/23 07:10 03/04/23 03:29 4 Laboratory Results Short CBC 03/04/23 Range/Units 08:14 WBC 4.38 L (4.8-10.8) K/ul Hgb 11.6 L (12.0-16.0) g/dl Hct 39.3 (37.0-47.0) % Plt Count 141 (130-400) K/uL BMP 03/04/23 03/04/23 08:05 08:14 Sodium 135 L Potassium 4.9 Chloride 102 Carbon Dioxide 25 BUN 16 Creatinine 0.87 0.87 Glucose 303 H* Calcium 8.5 L Medications Administered Current Inpatient Medications Acetaminophen (Acetaminophen 325 Mg Tab) 650 mg PO Q4H PRN PRN Reason: Pain or Fever Stop: 04/01/23 17:53 Albuterol (Albuterol Hfa 8 Gm Inhaler) 2 puffs INH Q4H PRN PRN Reason: COUGH/WHEEZING Stop: 04/01/23 17:53 Amitriptyline HCl (Amitriptyline Hcl 50 Mg Tab) 50 mg PO HS [facility] Stop: 04/01/23 20:59 Last Admin: 03/03/23 21:36 Dose: 50 mg Aspirin (Aspirin 81 Mg Ectab) 81 mg PO QAM [facility] Stop: 04/02/23 08:59 Last Admin: 03/04/23 08:42 Dose: 81 mg Atorvastatin Calcium (Atorvastatin 40 Mg Tab) 80 mg PO DAILY [facility] Stop: 04/02/23 08:59 Last Admin: 03/04/23 08:43 Dose: 80 mg Dextrose (Dextrose 50% 50 Ml Syringe) 25 - 50 ml IV UD PRN; Protocol PRN Reason: Hypoglycemia Protocol Stop: 04/01/23 16:31 Dextrose (Dextrose 50% 50 Ml Syringe) 25 - 50 ml IV UD PRN; Protocol PRN Reason: Hypoglycemia Protocol Stop: 04/01/23 17:53 Docusate Sodium (Docusate Sodium 100 Mg Cap) 100 mg PO BID PRN PRN Reason: Constipation Stop: 04/01/23 17:53 Empagliflozin (Empagliflozin 10 Mg Tab) 10 mg PO QAM [facility] Stop: 04/02/23 08:59 Last Admin: 03/04/23 08:43 Dose: 10 mg Gabapentin (Gabapentin 300 Mg Cap) 300 mg PO BID@1200,2100 [facility] Stop: 04/01/23 20:59 Last Admin: 03/04/23 12:07 Dose: 300 mg Glucagon (Glucagon For Inj 1 Mg Vial) 1 mg SQ UD PRN; Protocol PRN Reason: Hypoglycemia Protocol Stop: 04/01/23 16:31 Glucagon (Glucagon For Inj 1 Mg Vial) 1 mg SQ UD PRN; Protocol PRN Reason: Hypoglycemia Protocol Stop: 04/01/23 17:53 Glucose (Glucose 10 Tab/Tube) 4 - 8 tab PO UD PRN; Protocol PRN Reason: Hypoglycemia Treatment Stop: 04/01/23 17:53 Glucose (Glucose 40% Gel 15 Gm Tube) 15 - 30 gm PO UD PRN; Protocol PRN Reason: Hypoglycemia Protocol Stop: 04/01/23 17:53 Vancomycin HCl 1,000 mg/ (Sodium Chloride) 270 mls @ 200 mls/hr IV Q12H [facility] Stop: 03/10/23 03:59 Last Infusion: 03/04/23 05:20 Dose: Infused Cefepime HCl 2,000 mg/ Syringe 20 mls @ 5 mls/min IV Q12H [facility]; Protocol Stop: 03/10/23 00:00 Last Admin: 03/04/23 12:11 Dose: 5 mls/min Promethazine HCl 12.5 mg/ (Sodium Chloride) 50.5 mls @ 202 mls/hr IV Q6H PRN PRN Reason: Nausea And Vomiting Stop: 04/01/23 18:57 Insulin Aspart (Insulin Aspart Per Unit Charge) 0 units SC ACHS [facility] Stop: 04/01/23 17:59 Last Admin: 03/04/23 12:09 Dose: 18 units Insulin Glargine (Lantus Per Unit Charge) 20 units SQ BID [facility] Stop: 04/01/23 20:59 Last Admin: 03/04/23 08:44 Dose: 20 units Lactobacillus Acidophilus (Advanced Probiotic 1250 Mg Capsule) 2 cap PO DAILY [facility]; Protocol Stop: 04/02/23 08:59 Last Admin: 03/04/23 08:44 Dose: 2 cap Lorazepam (Lorazepam 0.5 Mg Tab) 0.5 mg PO Q8H PRN PRN Reason: ANXIETY/INSOMNIA Stop: 04/01/23 17:53 Metoprolol Succinate (Metoprolol Succ 25mg Ext Rel Tab) 25 mg PO QAM [facility] Stop: 04/02/23 08:59 Last Admin: 03/04/23 08:50 Dose: 25 mg Miscellaneous (Carbohydrates For Hypoglycemia ) 15 - 30 gm PO UD PRN PRN Reason: Hypoglycemia Protocol Stop: 04/01/23 16:31 Miscellaneous (Carbohydrates For Hypoglycemia ) 15 - 30 gm PO UD PRN PRN Reason: Hypoglycemia Protocol Stop: 04/01/23 17:53 Miscellaneous Information (Vancomycin Consult Active) 1 each N/A UD PRN PRN Reason: Consult Stop: 04/01/23 16:40 Ondansetron HCl (Ondansetron Inj 2 Mg/Ml 2 Ml Vial) 4 mg IV Q6H PRN PRN Reason: Nausea Stop: 04/01/23 17:53 Rivaroxaban (Rivaroxaban 2.5 Mg Tab) 2.5 mg PO BID [facility] Stop: 04/01/23 20:59 Last Admin: 03/04/23 08:45 Dose: 2.5 mg Ropinirole HCl (Ropinirole Hcl 0.25 Mg Tablet) 0.5 mg PO HS [facility] Stop: 04/01/23 20:59 Last Admin: 03/03/23 21:36 Dose: 0.5 mg Sertraline HCl (Sertraline Hcl 100 Mg Tablet) 100 mg PO QAM [facility] Stop: 04/02/23 08:59 Last Admin: 03/04/23 08:43 Dose: 100 mg Tramadol HCl (Tramadol Hcl 50 Mg Tablet) 50 mg PO Q6H PRN PRN Reason: Pain Stop: 04/01/23 17:53 Vibegron (Vibegron 75 Mg Tab) 75 mg PO DAILY [facility]; Protocol Stop: 04/02/23 08:59 Last Admin: 03/04/23 08:43 Dose: 75 mg (5) Type 2 diabetes mellitus with diabetic neuropathy Diabetes mellitus usp insulin use: with usp use Qualified Code(s): E11.40 - Type 2 diabetes mellitus with diabetic neuropathy, unspecified; Z79.4 - half-way (current) use of insulin (6) CAD (coronary artery disease) Coronary Disease-Associated Artery/Lesion type: [place] artery [place] vs. transplanted heart: [place] heart Associated angina: without angina Qualified Code(s): I25.10 - Atherosclerotic heart disease of [place] coronary artery without angina pectoris (9) COPD (chronic obstructive pulmonary disease) COPD type: emphysema Emphysema type: unspecified Qualified Code(s): J43.9 - Emphysema, unspecified (10) HTN (hypertension) Hypertension type: primary hypertension Qualified Code(s): I10 - Essential (primary) hypertension
[2023-03-04] MEDS: AMITRIPTYLINE HCL 50 MG TAB PO SCH (20:55)
[2023-03-04] MEDS: rOPINIRole HCL 0.25 MG TABLET PO SCH (20:55)
[2023-03-05 03:24] LABS: Basophils # (auto) 0.02 K/uL (0.00-0.20); Basophils % (auto) 0.4 %; Eosinophils % (auto) 5.9 %; Hematocrit (blood only) 38.2 % (37.0-47.0); Hemoglobin 11.3 g/dl (12.0-16.0); Immature Granulocytes # (auto) 0.02 K/uL (0.01-0.20); Immature Granulocytes % (auto) 0.4 %; Lymphocytes # (auto) 0.98 K/uL (1.20-3.40); Lymphocytes % (auto) 19.2 %; Mean Corpuscular Hemoglobin 23.6 pg (25.0-34.0); Mean Corpuscular Hgb Conc 29.6 g/dL (32.0-36.0); Mean Corpuscular Volume 79.7 fL (80.0-100.0); Mean Platelet Volume 10.9 fL (9.4-12.4); Monocytes # (auto) 0.69 K/uL (0.11-0.59); Monocytes % (auto) 13.5 %; Neutrophils # (auto) 3.09 K/uL (1.40-6.50); Neutrophils % (auto) 60.6 %; Platelet Count 159 K/uL (130-400); RDW Coefficient of Variation 18.5 % (11.5-14.5); RDW Standard Deviation 53.3 fL (36.4-46.3); Red Blood Count 4.79 M/uL (4.20-5.40)
[2023-03-05] MEDS ORDERED: VANCOMYCIN LEVEL ONE (03:30)
[2023-03-05 03:39] LABS: BUN Creatinine Ratio 25.9 (10-20); Calcium 8.6 mg/dl (8.6-10.3); Creatinine Clr Calc Pharmacy 81.9 ml/min; Est GFR (African American) 82.2 ml/min; Est GFR (Non-African American) 70.9 ml/min; Potassium 4.3 mmol/L (3.5-5.1)
[2023-03-05] MEDS: VANCOMYCIN HCL 1,000 MG in SODIUM CHLORIDE 0.9% 250 ML IV SCH (03:55)
[2023-03-05] MEDS: INSULIN ASPART PER UNIT CHARGE SC SCH ×4 (08:50→20:54)
[2023-03-05] MEDS: VIBEGRON 75 MG TAB PO SCH (08:52)
[2023-03-05] MEDS: METOPROLOL SUCC 25MG EXT REL TAB PO SCH (08:52)
[2023-03-05] MEDS: ADVANCED PROBIOTIC 1250 MG CAPSULE PO SCH (08:52)
[2023-03-05] MEDS: RIVAROXABAN 2.5 MG TAB PO SCH ×2 (08:52→20:35)
[2023-03-05] MEDS: ATORVASTATIN 40 MG TAB PO SCH (08:52)
[2023-03-05] MEDS: EMPAGLIFLOZIN 10 MG TAB PO SCH (08:52)
[2023-03-05] MEDS: ASPIRIN 81 MG ECTAB PO SCH (08:52)
[2023-03-05] MEDS: SERTRALINE HCL 100 MG TABLET PO SCH (08:53)
[2023-03-05] MEDS: LANTUS PER UNIT CHARGE SQ SCH ×2 (08:57→20:54)
--- NOTE | 2023-03-05 09:51 | Pharmacy Report ---
Pharmacy PK ABX Note - Date of Service March 05, 2023 - Assessment and Plan Assessment 03/05 SCr stable. Vanco level today of 14.7 mcg/mL associated with therapeutic AUC. Morganella morganii isolated from 03/02 blood cultures. Cefepime should cover this isolate. Consideration for vanco de-escalation may be reasonable, if the source for the bacteremia is thought to be the SSTI. 03/02 67 year old F receiving IV Vancomycin for treatment of sepsis. Possible SSTI, has a bypass graft which is occluded as per vascular doctor yesterday. She has had nonhealing wounds on her right toe as well as the surgical site from the graft. Blood cultures pending. In Dec 2022, pt presented to the [facility] ED with RLE pain x 3 days. She was found to have ischemic limb with multiple occlusions and was life-flighted to [place] for emergency revascularization on 01/19/23 and discharged on 01/22/23 on doxycycline and cefuroxime until 02/02/23 as well as on rivaroxaban 2.5 mg BID. Plan Vancomycin * Continue 1000 mg IV every 12 hours * Regimen is predicted to achieve target AUC/SRINI of 400-600 mg/L.hr * Vancomycin level to be ordered in 2-3 days, if continued Pharmacy will continue to follow and will adjust dose/frequency as necessary. Thank you. Pharmacy has transitioned to AUC monitoring for vancomycin. AUC/SRINI is the preferred PK/PD target and is associated with decreased risk of nephrotoxicity compared to traditional trough targets.
[2023-03-05] MEDS ORDERED: OLANZapine ZYDIS 5 MG ORALLY DIS. TAB PO PRN (09:57)
[2023-03-05] MEDS: CEFEPIME 2,000 MG in SYRINGE 0 ML IV SCH ×2 (12:34→20:35)
[2023-03-05] MEDS: GABAPENTIN 300 MG CAP PO SCH ×2 (12:34→20:35)
--- NOTE | 2023-03-05 12:47 | Hospitalist Progress Note ---
Date of Service March 05, 2023 Assessment & Plan (1) Severe sepsis: Plan: This is a 67 y/o female with insulin-requiring DM2, CAD s/p CABG x 3 (06/19), PAD w/ recent emergent revascularlization of the RLE, COPD/emphysema, diabetic retinopathy and macular edema, diabetic neuropathy, hx SVT, HTN, prior CVA, anxiety/depression, dyslipidemia, and other history as outlined below who was referred to the ED today for possible sepsis. On initial presentation, pt was hypotensive with systolic BP in the 60s, tachycardic >100, tachypnea. Initial lactic acid was 2.3, rpt 2.8. Procal elevated at 10.65. Initial troponin 48.6, rpt 63.3. Given 1L of IVF in the ED but second liter held due to concerns for pulmonary edema. Did not require Levophed drip although initially ordered. Cefepime given for broad-spectrum coverage and pt referred for admission. Presumed source of sepsis is known right great toe ulcer, pt has been on doxycycline from vascular. -Likely secondary to infected recent surgical site/right big toe ulceration and cellulitis - ED provider discussed pt with vascular surgery at [facility] where pt follows - they agree with our plan to stabilize the patient and work-up further here before determining potential need for transfer vs. discharge with outpatient follow-up - Continue IV cefepime but broaden coverage to include MRSA coverage with Vanco. -Blood cultures 1 out of 2 bottle is growing gram-negative bacilli - MRI of right foot did not show any osteomyelitis -Appreciate can bander operator input and recommendation-conservative management versus I&D and amputation -Feeling a lot better today and denies any more chills, fever, pain in the leg, nausea and or vomiting -1 out of 2 blood culture is positive for gram-negative bacilli and further identification and sensitivity are pending -Remains hemodynamically stable with much improvement of general condition -Clinically much better, right leg swelling is better, no pain and/or numbness and tingling, no fever and or chills -1 out of 2 blood cultures is growing Morganella more likely which is pans ensitive -MRSA screen has been negative and will discontinue vancomycin -ID consult for direction of care about antibiotic (2) Demand ischemia: Plan: Initial troponin 48.6, rpt 63.3. Pt denies any anginal symptoms but has a history of CAD with CABG x 3 in 2022. - Will trend troponin Q6hrs x 2-troponins moderately elevated from 48.6 on admission to 98.8 without any acute EKG changes - Check ECHO showed: LV is normal in size, moderate concentric LVH, mild hypokinesis of the apical septum with otherwise preserved wall motion and normal LV systolic function, EF 60 to 65%, grade 1 diastolic dysfunction, there is mild aortic valve calcification greatest on the noncoronary cusp, no hemodynamically significant valvular aortic stenosis, there is mild mitral annular calcification, there is trace mitral regurgitation and trace tricuspid regurgitation -- Cautiously resume pt's beta-wojciech as BP has improved, hx of CAD s/p CABG -Troponin elevation is due to sepsis -Doubt any ACS (3) Hypomagnesemia: Plan: Mg today of 1.2 - pt reports that she was previously on supplemental magnesium but a provider told her to stop it - Replete mag IV -Magnesium level has been normalized (4) Diabetic ulcer of right great toe: Plan: - Wound culture - Wound care consult - Podiatry consult-appreciate input and recommendation for possible I&D/amputation with ongoing conservative management (5) Type 2 diabetes mellitus with diabetic neuropathy: Plan: - Continue basal insulin, sliding scale - Diabetic diet - Metformin on hold - A1c in the AM------ hemoglobin A1c is elevated at 9.6 - BSG ACHS -Sliding scale has been modified as blood sugar is running very high -Diabetes is not yet controlled and blood sugar remains around more than 300 -Will increase the dose of Lantus to 25 twice daily (6) CAD (coronary artery disease): Plan: Suspect demand ischemia as cause of troponin elevation - currently asymptomatic As above (7) PAD (peripheral artery disease): Plan: See plan for #1 Will resume rivaroxaban 2.5 mg BID since no immediate surgical intervention anticipated - pt was started on by vascular after surgery in Nov Will consult vascular surgery No signs and or symptoms of ischemia involving the extremities (8) Morbid obesity due to excess calories: (9) COPD (chronic obstructive pulmonary disease): Plan: Stable - continue prn rescue inhaler (10) HTN (hypertension): Plan: Hypotensive on presentation due to severe sepsis - plan as above (11) Dyslipidemia: Plan: Chronic - continue statin (12) Nocturnal hypoxemia due to emphysema: Plan: On baseline 4L of O2 at HS - will continue (13) Stenosis of right subclavian artery: Plan: No BPs in right arm per vascular Plan Continue other home medications as appropriate. Code Status: Full code DVT Prophylaxis: on rivaroxaban Admission and Anticipated Discharge Date Admission Date: March 02, 2023 Subjective 03/03/2023 The patient was seen and examined in emergency room She was sent in by her vascular surgeon for sudden onset of chills, weakness and nausea vomiting early this morning yesterday-03/02/2023 She was scheduled to have arteriogram and possible revascularization by her surgeon for the occluded graft on 03/03/2023 She has been feeling little better in the emergency room No fever and or chills now denies any pain in the leg 03/04/2023 The patient was seen and examined in telemetry unit in presence of the She has been feeling much better and denies any more chills, fever, sweating and/or nausea vomiting Her blood sugar has been noted high and sliding scale will be adjusted 03/05/2023 The patient was seen and examined in telemetry unit She has been feeling much better The leg swelling is better, no more chills and denies any numbness or tingling in the extremities She is out of bed on a chair Review of Systems Review of Systems: All systems reviewed and are unremarkable except as noted below Physical Exam Physical Exam: Sitting on a chair without any acute distress Constitutional: well developed, well nourished, + ill appearing and + obese Eyes: PERRL, conjunctivae normal, anicteric sclerae ENMT: external ear and nose normal, oropharynx normal Neck: trachea midline, no thyromegaly Respiratory: no respiratory distress Auscultation: lungs clear to auscultation bilaterally and + diminished lung sounds Cardiovascular: Rate/Rhythm: regular rate and regular rhythm; not tachycardic Heart Sounds: normal S1, normal S2 and + murmur (2/6 ESM over precordium) Extremities: + edema (Trace to 1+ edema bilaterally. More on the right) Gastrointestinal (Abdomen): Inspection/Auscultation: normal bowel sounds; abdomen not distended Percussion/Palpation: abdomen soft; abdomen nontender Neurologic: normal touch/pain/proprioception and moves all extremities; no focal motor deficits Lymphatic: no cervical or axillary lymphadenopathy Results & Data Results & Data Vital Signs (Past 12 Hours) Vital Signs Temp Pulse Pulse Resp BP Pulse Ox O2 Del Method 03/05/23 11:20 36.5 C 78 18 126/71 93 Room Air 03/05/23 09:19 81 03/05/23 09:10 Room Air 03/05/23 08:02 36.7 C 91 H 18 106/54 L 90 Room Air 03/05/23 03:33 36.6 C 21 98/62 L 94 Nasal Cannula O2 Flow Rate 03/05/23 11:20 03/05/23 09:19 03/05/23 09:10 03/05/23 08:02 03/05/23 03:33 4 Laboratory Results Short CBC 03/05/23 Range/Units 03:08 WBC 5.10 (4.8-10.8) K/ul Hgb 11.3 L (12.0-16.0) g/dl Hct 38.2 (37.0-47.0) % Plt Count 159 (130-400) K/uL BMP 03/05/23 03:08 Sodium 135 L Potassium 4.3 Chloride 103 Carbon Dioxide 27 BUN 22 Creatinine 0.85 Glucose 208 H Calcium 8.6 Medications Administered Current Inpatient Medications Acetaminophen (Acetaminophen 325 Mg Tab) 650 mg PO Q4H PRN PRN Reason: Pain or Fever Stop: 04/01/23 17:53 Albuterol (Albuterol Hfa 8 Gm Inhaler) 2 puffs INH Q4H PRN PRN Reason: COUGH/WHEEZING Stop: 04/01/23 17:53 Amitriptyline HCl (Amitriptyline Hcl 50 Mg Tab) 50 mg PO HS YARITZA Stop: 04/01/23 20:59 Last Admin: 03/04/23 20:55 Dose: 50 mg Aspirin (Aspirin 81 Mg Ectab) 81 mg PO QAM YARITZA Stop: 04/02/23 08:59 Last Admin: 03/05/23 08:52 Dose: 81 mg Atorvastatin Calcium (Atorvastatin 40 Mg Tab) 80 mg PO DAILY YARITZA Stop: 04/02/23 08:59 Last Admin: 03/05/23 08:52 Dose: 80 mg Dextrose (Dextrose 50% 50 Ml Syringe) 25 - 50 ml IV UD PRN; Protocol PRN Reason: Hypoglycemia Protocol Stop: 04/01/23 16:31 Dextrose (Dextrose 50% 50 Ml Syringe) 25 - 50 ml IV UD PRN; Protocol PRN Reason: Hypoglycemia Protocol Stop: 04/01/23 17:53 Docusate Sodium (Docusate Sodium 100 Mg Cap) 100 mg PO BID PRN PRN Reason: Constipation Stop: 04/01/23 17:53 Empagliflozin (Empagliflozin 10 Mg Tab) 10 mg PO QAM YARITZA Stop: 04/02/23 08:59 Last Admin: 03/05/23 08:52 Dose: 10 mg Gabapentin (Gabapentin 300 Mg Cap) 300 mg PO BID@1200,2100 [facility] Stop: 04/01/23 20:59 Last Admin: 03/05/23 12:34 Dose: 300 mg Glucagon (Glucagon For Inj 1 Mg Vial) 1 mg SQ UD PRN; Protocol PRN Reason: Hypoglycemia Protocol Stop: 04/01/23 16:31 Glucagon (Glucagon For Inj 1 Mg Vial) 1 mg SQ UD PRN; Protocol PRN Reason: Hypoglycemia Protocol Stop: 04/01/23 17:53 Glucose (Glucose 10 Tab/Tube) 4 - 8 tab PO UD PRN; Protocol PRN Reason: Hypoglycemia Treatment Stop: 04/01/23 17:53 Glucose (Glucose 40% Gel 15 Gm Tube) 15 - 30 gm PO UD PRN; Protocol PRN Reason: Hypoglycemia Protocol Stop: 04/01/23 17:53 Vancomycin HCl 1,000 mg/ (Sodium Chloride) 270 mls @ 200 mls/hr IV Q12H [facility] Stop: 03/10/23 03:59 Last Infusion: 03/05/23 05:30 Dose: Infused Cefepime HCl 2,000 mg/ Syringe 20 mls @ 5 mls/min IV Q12H [facility]; Protocol Stop: 03/10/23 00:00 Last Admin: 03/05/23 12:34 Dose: 5 mls/min Promethazine HCl 12.5 mg/ (Sodium Chloride) 50.5 mls @ 202 mls/hr IV Q6H PRN PRN Reason: Nausea And Vomiting Stop: 04/01/23 18:57 Insulin Aspart (Insulin Aspart Per Unit Charge) 0 units SC ACHS [facility] Stop: 04/01/23 17:59 Last Admin: 03/05/23 12:34 Dose: 24 units Insulin Glargine (Lantus Per Unit Charge) 25 units SQ BID [facility] Stop: 04/04/23 20:59 Lactobacillus Acidophilus (Advanced Probiotic 1250 Mg Capsule) 2 cap PO DAILY [facility]; Protocol Stop: 04/02/23 08:59 Last Admin: 03/05/23 08:52 Dose: 2 cap Lorazepam (Lorazepam 0.5 Mg Tab) 0.5 mg PO Q8H PRN PRN Reason: ANXIETY/INSOMNIA Stop: 04/01/23 17:53 Metoprolol Succinate (Metoprolol Succ 25mg Ext Rel Tab) 25 mg PO QAM [facility] Stop: 04/02/23 08:59 Last Admin: 03/05/23 08:52 Dose: 25 mg Miscellaneous (Carbohydrates For Hypoglycemia ) 15 - 30 gm PO UD PRN PRN Reason: Hypoglycemia Protocol Stop: 04/01/23 16:31 Miscellaneous (Carbohydrates For Hypoglycemia ) 15 - 30 gm PO UD PRN PRN Reason: Hypoglycemia Protocol Stop: 04/01/23 17:53 Miscellaneous Information (Vancomycin Consult Active) 1 each N/A UD PRN PRN Reason: Consult Stop: 04/01/23 16:40 Olanzapine (Olanzapine Zydis 5 Mg Orally Dis. Tab) 5 mg PO TID PRN PRN Reason: Agitation Stop: 04/04/23 09:56 Ondansetron HCl (Ondansetron Inj 2 Mg/Ml 2 Ml Vial) 4 mg IV Q6H PRN PRN Reason: Nausea Stop: 04/01/23 17:53 Rivaroxaban (Rivaroxaban 2.5 Mg Tab) 2.5 mg PO BID [facility] Stop: 04/01/23 20:59 Last Admin: 03/05/23 08:52 Dose: 2.5 mg Ropinirole HCl (Ropinirole Hcl 0.25 Mg Tablet) 0.5 mg PO HS [facility] Stop: 04/01/23 20:59 Last Admin: 03/04/23 20:55 Dose: 0.5 mg Sertraline HCl (Sertraline Hcl 100 Mg Tablet) 100 mg PO QAM [facility] Stop: 04/02/23 08:59 Last Admin: 03/05/23 08:53 Dose: 100 mg Tramadol HCl (Tramadol Hcl 50 Mg Tablet) 50 mg PO Q6H PRN PRN Reason: Pain Stop: 04/01/23 17:53 Vibegron (Vibegron 75 Mg Tab) 75 mg PO DAILY [facility]; Protocol Stop: 04/02/23 08:59 Last Admin: 03/05/23 08:52 Dose: 75 mg (5) Type 2 diabetes mellitus with diabetic neuropathy Diabetes mellitus nursing home insulin use: with director long term care use Qualified Code(s): E11.40 - Type 2 diabetes mellitus with diabetic neuropathy, unspecified; Z79.4 - rad tech (current) use of insulin (6) CAD (coronary artery disease) Coronary Disease-Associated Artery/Lesion type: [place] artery [place] vs. transplanted heart: [place] heart Associated angina: without angina Qualified Code(s): I25.10 - Atherosclerotic heart disease of [place] coronary artery without angina pectoris (9) COPD (chronic obstructive pulmonary disease) COPD type: emphysema Emphysema type: unspecified Qualified Code(s): J43.9 - Emphysema, unspecified (10) HTN (hypertension) Hypertension type: primary hypertension Qualified Code(s): I10 - Essential (primary) hypertension
[2023-03-05] MEDS: AMITRIPTYLINE HCL 50 MG TAB PO SCH (20:35)
[2023-03-05] MEDS: rOPINIRole HCL 0.25 MG TABLET PO SCH (20:36)
[2023-03-06] MEDS: CEFEPIME 2,000 MG in SYRINGE 0 ML IV SCH ×2 (04:25→12:21)
[2023-03-06 06:44] LABS: Basophils # (auto) 0.01 K/uL (0.00-0.20); Basophils % (auto) 0.2 %; Eosinophils # (auto) 0.28 K/uL (0.00-0.50); Eosinophils % (auto) 5.4 %; Hemoglobin 12.2 g/dl (12.0-16.0); Immature Granulocytes # (auto) 0.01 K/uL (0.01-0.20); Immature Granulocytes % (auto) 0.2 %; Lymphocytes # (auto) 1.34 K/uL (1.20-3.40); Mean Corpuscular Hemoglobin 23.4 pg (25.0-34.0); Mean Corpuscular Volume 80.5 fL (80.0-100.0); Mean Platelet Volume 10.8 fL (9.4-12.4); Monocytes # (auto) 0.66 K/uL (0.11-0.59); Monocytes % (auto) 12.8 %; Neutrophils # (auto) 2.85 K/uL (1.40-6.50); Neutrophils % (auto) 55.4 %; Platelet Count 199 K/uL (130-400); RDW Coefficient of Variation 18.7 % (11.5-14.5); RDW Standard Deviation 53.1 fL (36.4-46.3); Red Blood Count 5.22 M/uL (4.20-5.40); White Blood Count 5.15 K/ul (4.8-10.8)
[2023-03-06 07:10] LABS: BUN Creatinine Ratio 21.4 (10-20); Calcium 8.9 mg/dl (8.6-10.3); Creatinine Clr Calc Pharmacy 71.1 ml/min; Est GFR (African American) 69.2 ml/min; Est GFR (Non-African American) 59.7 ml/min; Potassium 4.6 mmol/L (3.5-5.1)
[2023-03-06] MEDS: ASPIRIN 81 MG ECTAB PO SCH (08:30)
[2023-03-06] MEDS: SERTRALINE HCL 100 MG TABLET PO SCH (08:30)
[2023-03-06] MEDS: EMPAGLIFLOZIN 10 MG TAB PO SCH (08:30)
[2023-03-06] MEDS: METOPROLOL SUCC 25MG EXT REL TAB PO SCH (08:31)
[2023-03-06] MEDS: INSULIN ASPART PER UNIT CHARGE SC SCH ×2 (08:32→12:16)
[2023-03-06] MEDS: LANTUS PER UNIT CHARGE SQ SCH (08:33)
[2023-03-06] MEDS: VIBEGRON 75 MG TAB PO SCH (08:34)
[2023-03-06] MEDS: ADVANCED PROBIOTIC 1250 MG CAPSULE PO SCH (08:36)
[2023-03-06] MEDS: ATORVASTATIN 40 MG TAB PO SCH (08:36)
[2023-03-06] MEDS: RIVAROXABAN 2.5 MG TAB PO SCH (08:37)
[2023-03-06] MEDS: GABAPENTIN 300 MG CAP PO SCH (12:19)
--- NOTE | 2023-03-06 14:07 | Hospitalist Progress Note ---
Date of Service March 06, 2023 Assessment & Plan (1) Severe sepsis: Plan: This is a 67 y/o female with insulin-requiring DM2, CAD s/p CABG x 3 (06/19), PAD w/ recent emergent revascularlization of the RLE, COPD/emphysema, diabetic retinopathy and macular edema, diabetic neuropathy, hx SVT, HTN, prior CVA, anxiety/depression, dyslipidemia, and other history as outlined below who was referred to the ED today for possible sepsis. On initial presentation, pt was hypotensive with systolic BP in the 60s, tachycardic >100, tachypnea. Initial lactic acid was 2.3, rpt 2.8. Procal elevated at 10.65. Initial troponin 48.6, rpt 63.3. Given 1L of IVF in the ED but second liter held due to concerns for pulmonary edema. Did not require Levophed drip although initially ordered. Cefepime given for broad-spectrum coverage and pt referred for admission. Presumed source of sepsis is known right great toe ulcer, pt has been on doxycycline from vascular. -Likely secondary to infected recent surgical site/right big toe ulceration and cellulitis - ED provider discussed pt with vascular surgery at [facility] [place] [facility] where pt follows - they agree with our plan to stabilize the patient and work-up further here before determining potential need for transfer vs. discharge with outpatient follow-up - Continue IV cefepime but broaden coverage to include MRSA coverage with Vanco. -Blood cultures 1 out of 2 bottle is growing gram-negative bacilli - MRI of right foot did not show any osteomyelitis -Appreciate tool filer hand input and recommendation-conservative management versus I&D and amputation -Feeling a lot better today and denies any more chills, fever, pain in the leg, nausea and or vomiting -1 out of 2 blood culture is positive for gram-negative bacilli and further identification and sensitivity are pending -Remains hemodynamically stable with much improvement of general condition -Clinically much better, right leg swelling is better, no pain and/or numbness and tingling, no fever and or chills -1 out of 2 blood cultures is growing Morganella more likely which is pans ensitive -MRSA screen has been negative and will discontinue vancomycin -Patient has been feeling much better and denies any significant symptoms -Awaiting ID recommendation prior to discharge (2) Demand ischemia: Plan: Initial troponin 48.6, rpt 63.3. Pt denies any anginal symptoms but has a history of CAD with CABG x 3 in 2022. - Will trend troponin Q6hrs x 2-troponins moderately elevated from 48.6 on admission to 98.8 without any acute EKG changes - Check ECHO showed: LV is normal in size, moderate concentric LVH, mild hyp okinesis of the apical septum with otherwise preserved wall motion and normal LV systolic function, EF 60 to 65%, grade 1 diastolic dysfunction, there is mild aortic valve calcification greatest on the noncoronary cusp, no hemodynamically significant valvular aortic stenosis, there is mild mitral annular calcification, there is trace mitral regurgitation and trace tricuspid regurgitation -- Cautiously resume pt's beta-wojciech as BP has improved, hx of CAD s/p CABG -Troponin elevation is due to sepsis -Doubt any ACS (3) Hypomagnesemia: Plan: Mg today of 1.2 - pt reports that she was previously on supplemental magnesium but a provider told her to stop it - Replete mag IV -Magnesium level has been normalized (4) Diabetic ulcer of right great toe: Plan: - Wound culture - Wound care consult - Podiatry consult-appreciate input and recommendation for possible I&D/amputation with ongoing conservative management -Has been getting wound care as per the tool filer hand (5) Type 2 diabetes mellitus with diabetic neuropathy: Plan: - Continue basal insulin, sliding scale - Diabetic diet - Metformin on hold - A1c in the AM------ hemoglobin A1c is elevated at 9.6 - BSG ACHS -Sliding scale has been modified as blood sugar is running very high -Diabetes is not yet controlled and blood sugar remains around more than 300 -Will increase the dose of Lantus to 25 twice daily Blood sugar seems to be stable (6) CAD (coronary artery disease): Plan: Suspect demand ischemia as cause of troponin elevation - currently asymptomatic As above (7) PAD (peripheral artery disease): Plan: See plan for #1 Will resume rivaroxaban 2.5 mg BID since no immediate surgical intervention anticipated - pt was started on by vascular after surgery in Nov Will consult vascular surgery No signs and or symptoms of ischemia involving the extremities Will need to see vascular surgery as an outpatient as soon as possible following discharge (8) Morbid obesity due to excess calories: (9) COPD (chronic obstructive pulmonary disease): Plan: Stable - continue prn rescue inhaler (10) HTN (hypertension): Plan: Hypotensive on presentation due to severe sepsis - plan as above (11) Dyslipidemia: Plan: Chronic - continue statin (12) Nocturnal hypoxemia due to emphysema: Plan: On baseline 4L of O2 at HS - will continue (13) Stenosis of right subclavian artery: Plan: No BPs in right arm per vascular Plan Continue other home medications as appropriate. Code Status: Full code DVT Prophylaxis: on rivaroxaban Admission and Anticipated Discharge Date Admission Date: March 02, 2023 Subjective 03/03/2023 The patient was seen and examined in emergency room She was sent in by her vascular surgeon for sudden onset of chills, weakness and nausea vomiting early this morning yesterday-03/02/2023 She was scheduled to have arteriogram and possible revascularization by her surgeon for the occluded graft on 03/03/2023 She has been feeling little better in the emergency room No fever and or chills now denies any pain in the leg 03/04/2023 The patient was seen and examined in telemetry unit in presence of the She has been feeling much better and denies any more chills, fever, sweating and/or nausea vomiting Her blood sugar has been noted high and sliding scale will be adjusted 03/05/2023 The patient was seen and examined in telemetry unit She has been feeling much better The leg swelling is better, no more chills and denies any numbness or tingling in the extremities She is out of bed on a chair 03/06/2023 The patient was seen and examined in telemetry unit She has been feeling much better and her leg symptoms is resolved No fever and or chills, denies any nausea or vomiting Review of Systems Review of Systems: All systems reviewed and are unremarkable except as noted below Physical Exam Physical Exam: Sitting on a chair without any acute distress Constitutional: well developed, well nourished, + ill appearing and + obese Eyes: PERRL, conjunctivae normal, anicteric sclerae ENMT: external ear and nose normal, oropharynx normal Neck: trachea midline, no thyromegaly Respiratory: no respiratory distress Auscultation: lungs clear to auscultation bilaterally and + diminished lung sounds Cardiovascular: Rate/Rhythm: regular rate and regular rhythm; not tachycardic Heart Sounds: normal S1, normal S2 and + murmur (2/6 ESM over precordium) Extremities: + edema (Trace to 1+ edema bilaterally. More on the right) Gastrointestinal (Abdomen): Inspection/Auscultation: normal bowel sounds; abdomen not distended Percussion/Palpation: abdomen soft; abdomen nontender Musculoskeletal: No acute arthritis involving any of the joint Skin: Right lower leg is bandaged Neurologic: normal touch/pain/proprioception and moves all extremities; no focal motor deficits Lymphatic: no cervical or axillary lymphadenopathy Results & Data Results & Data Vital Signs (Past 12 Hours) Vital Signs Temp Pulse Pulse Resp BP Pulse Ox O2 Del Method 03/06/23 11:21 36.6 C 72 18 111/73 92 Room Air 03/06/23 11:18 83 03/06/23 07:32 36.5 C 81 18 112/72 90 Room Air 03/06/23 03:07 36.6 C 82 18 117/67 98 Nasal Cannula O2 Flow Rate 03/06/23 11:21 03/06/23 11:18 03/06/23 07:32 03/06/23 03:07 4 Laboratory Results Short CBC 03/06/23 Range/Units 06:12 WBC 5.15 (4.8-10.8) K/ul Hgb 12.2 (12.0-16.0) g/dl Hct 42.0 (37.0-47.0) % Plt Count 199 (130-400) K/uL BMP 03/06/23 06:12 Sodium 136 Potassium 4.6 Chloride 103 Carbon Dioxide 26 BUN 21 Creatinine 0.98 Glucose 202 H Calcium 8.9 Medications Administered Current Inpatient Medications Acetaminophen (Acetaminophen 325 Mg Tab) 650 mg PO Q4H PRN PRN Reason: Pain or Fever Stop: 04/01/23 17:53 Albuterol (Albuterol Hfa 8 Gm Inhaler) 2 puffs INH Q4H PRN PRN Reason: COUGH/WHEEZING Stop: 04/01/23 17:53 Amitriptyline HCl (Amitriptyline Hcl 50 Mg Tab) 50 mg PO YARITZA Stop: 04/01/23 20:59 Last Admin: 03/05/23 20:35 Dose: 50 mg Aspirin (Aspirin 81 Mg Ectab) 81 mg PO QAM YARITZA Stop: 04/02/23 08:59 Last Admin: 03/06/23 08:30 Dose: 81 mg Atorvastatin Calcium (Atorvastatin 40 Mg Tab) 80 mg PO DAILY YARITZA Stop: 04/02/23 08:59 Last Admin: 03/06/23 08:36 Dose: 80 mg Dextrose (Dextrose 50% 50 Ml Syringe) 25 - 50 ml IV UD PRN; Protocol PRN Reason: Hypoglycemia Protocol Stop: 04/01/23 16:31 Dextrose (Dextrose 50% 50 Ml Syringe) 25 - 50 ml IV UD PRN; Protocol PRN Reason: Hypoglycemia Protocol Stop: 04/01/23 17:53 Docusate Sodium (Docusate Sodium 100 Mg Cap) 100 mg PO BID PRN PRN Reason: Constipation Stop: 04/01/23 17:53 Empagliflozin (Empagliflozin 10 Mg Tab) 10 mg PO QAM YARITZA Stop: 04/02/23 08:59 Last Admin: 03/06/23 08:30 Dose: 10 mg Gabapentin (Gabapentin 300 Mg Cap) 300 mg PO BID@1200,2100 [facility] Stop: 04/01/23 20:59 Last Admin: 03/06/23 12:19 Dose: 300 mg Glucagon (Glucagon For Inj 1 Mg Vial) 1 mg SQ UD PRN; Protocol PRN Reason: Hypoglycemia Protocol Stop: 04/01/23 16:31 Glucagon (Glucagon For Inj 1 Mg Vial) 1 mg SQ UD PRN; Protocol PRN Reason: Hypoglycemia Protocol Stop: 04/01/23 17:53 Glucose (Glucose 10 Tab/Tube) 4 - 8 tab PO UD PRN; Protocol PRN Reason: Hypoglycemia Treatment Stop: 04/01/23 17:53 Glucose (Glucose 40% Gel 15 Gm Tube) 15 - 30 gm PO UD PRN; Protocol PRN Reason: Hypoglycemia Protocol Stop: 04/01/23 17:53 Promethazine HCl 12.5 mg/ (Sodium Chloride) 50.5 mls @ 202 mls/hr IV Q6H PRN PRN Reason: Nausea And Vomiting Stop: 04/01/23 18:57 Cefepime HCl 2,000 mg/ Syringe 20 mls @ 5 mls/min IV Q8H YARITZA; Protocol Stop: 03/19/23 19:59 Last Admin: 03/06/23 12:21 Dose: 5 mls/min Insulin Aspart (Insulin Aspart Per Unit Charge) 0 units SC ACHS [facility] Stop: 04/01/23 17:59 Last Admin: 03/06/23 12:16 Dose: 22 units Insulin Glargine (Lantus Per Unit Charge) 25 units SQ BID [facility] Stop: 04/04/23 20:59 Last Admin: 03/06/23 08:33 Dose: 25 units Lactobacillus Acidophilus (Advanced Probiotic 1250 Mg Capsule) 2 cap PO DAILY [facility]; Protocol Stop: 04/02/23 08:59 Last Admin: 03/06/23 08:36 Dose: 2 cap Lorazepam (Lorazepam 0.5 Mg Tab) 0.5 mg PO Q8H PRN PRN Reason: ANXIETY/INSOMNIA Stop: 04/01/23 17:53 Metoprolol Succinate (Metoprolol Succ 25mg Ext Rel Tab) 25 mg PO QAM [facility] Stop: 04/02/23 08:59 Last Admin: 03/06/23 08:31 Dose: 25 mg Miscellaneous (Carbohydrates For Hypoglycemia ) 15 - 30 gm PO UD PRN PRN Reason: Hypoglycemia Protocol Stop: 04/01/23 16:31 Miscellaneous (Carbohydrates For Hypoglycemia ) 15 - 30 gm PO UD PRN PRN Reason: Hypoglycemia Protocol Stop: 04/01/23 17:53 Olanzapine (Olanzapine Zydis 5 Mg Orally Dis. Tab) 5 mg PO TID PRN PRN Reason: Agitation Stop: 04/04/23 09:56 Ondansetron HCl (Ondansetron Inj 2 Mg/Ml 2 Ml Vial) 4 mg IV Q6H PRN PRN Reason: Nausea Stop: 04/01/23 17:53 Rivaroxaban (Rivaroxaban 2.5 Mg Tab) 2.5 mg PO BID [facility] Stop: 04/01/23 20:59 Last Admin: 03/06/23 08:37 Dose: 2.5 mg Ropinirole HCl (Ropinirole Hcl 0.25 Mg Tablet) 0.5 mg PO HS [facility] Stop: 04/01/23 20:59 Last Admin: 03/05/23 20:36 Dose: 0.5 mg Sertraline HCl (Sertraline Hcl 100 Mg Tablet) 100 mg PO QAM [facility] Stop: 04/02/23 08:59 Last Admin: 03/06/23 08:30 Dose: 100 mg Tramadol HCl (Tramadol Hcl 50 Mg Tablet) 50 mg PO Q6H PRN PRN Reason: Pain Stop: 04/01/23 17:53 Vibegron (Vibegron 75 Mg Tab) 75 mg PO DAILY [facility]; Protocol Stop: 04/02/23 08:59 Last Admin: 03/06/23 08:34 Dose: 75 mg (5) Type 2 diabetes mellitus with diabetic neuropathy Diabetes mellitus prefitter doors insulin use: with prefitter doors use Qualified Code(s): E11.40 - Type 2 diabetes mellitus with diabetic neuropathy, unspecified; 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 transplanted heart: [place] heart Associated angina: without angina Qualified Code(s): I25.10 - Atherosclerotic heart disease of [place] coronary artery without angina pectoris (9) COPD (chronic obstructive pulmonary disease) COPD type: emphysema Emphysema type: unspecified Qualified Code(s): J43.9 - Emphysema, unspecified (10) HTN (hypertension) Hypertension type: primary hypertension Qualified Code(s): I10 - Essential (primary) hypertension
--- NOTE | 2023-03-06 14:08 | Communication Note ---
Date of Service: March 06, 2023 As per the notes on the chart, i would agree with the [facility] vascular surgeon who would want to see her after d/c for follow up for her recent fem pop bypass or if she worsens can be transferred to [place]. In view of her recent surgical procedure, i would agree with transfer if her condition does not improve being that they know her and had recently operated on her. thanks [place]
--- NOTE | 2023-03-06 14:39 | Infectious Disease Consult ---
Date of Service March 06, 2023 Telehealth Information I performed this visit using a real-time telehealth connection between my location and the patients location ([facility]). After connecting through interactive tele-video, patient was identified by name and date of and/or wristband check.Patient (or authorized healthcare payable representative) was informed that this was a telemedicine visit and it was being conducted confidentially over secure lines. My office door was closed and no o ne else was present in the room with me.Patient (or authorized healthcare payable representative) provided consent to proceed with the visit, expressed an understanding of privacy and security of the telemedicine visit, and gave permission to have a hospital payable representative in the room in order to assist with the visit and to conduct portions of the visit, as needed. I informed the patient (or authorized healthcare payable representative) that I reviewed their record and presented the opportunity for them to ask any questions regarding the visit today. The patient agreed to participate. Assessment & Plan (1) Sepsis: Plan: Patient developed Morganella bacteremia, most likely from small abscess at proximal surgical incision on RLE. Infection may extend to occluded graft and surgical intervention may ultimately be required. For now, OK to D/C cefepime and transition to cipro 500mg po bid to extend through 03/16/23. (2) Diabetic ulcer of right great toe: Plan: This appears primarily due to some ischemic effect. No soft tissue infection on exam and MRI shows no osteomyelitis. (3) PAD (peripheral artery disease): Plan: Follow-up with vascular surgery scheduled for 03/15/23. If any intervention, further abx may be required at that time. History of Present Illness History of Present Illness Ms. Liao is a 67yo female with a h/o DM, CAD, PAD, and prior CVA. She was admitted to [facility] on 03/02/23 after presenting with acute onset fever, chills, and N/V. She has a recent h/o ischemic RLE requiring revascularization in December of 2022. She had a small, superficial ucler on her great toe at that time. She had a short course of doxycycline and cefuroxime. Then in late January the bypass became occluded and she developed a welling along the proximal portion of her incision. She was put back on doxycycline. Plans were made to take her back to the OR for angiogram and endovascular repair, but she wound up being admitted to [facility] instead. After admission, she was placed on cefepime and vancomycin. Blood cultures grew Morganella. An MRI of her foot showed no obvious osteomyelitis. Today she is feeling overall better, back to baseline. No N/V or diarrhea. No rash. The "bump" along the proximal incision has decreased in size, but is draining some small amount of yellowish-red fluid. at bedside helps provide some of the history as well. Allergies Allergy/AdvReac Type Severity Reaction Status Date / Time paroxetine Allergy Severe HIVES;ANAPHYLAXIS-GENERIC Verified 01/18/23 18:54 BRAND nickel Allergy Intermediate RASH Verified 01/18/23 18:54 Penicillins Allergy Intermediate RASH Verified 01/18/23 18:54 Sulfa (Sulfonamide Allergy Intermediate RASH Verified 01/18/23 18:54 Antibiotics) doxepin AdvReac Intermediate HYPOTENSION Verified 01/18/23 18:54 Home Medications Medication Instructions Recorded Confirmed Type albuterol sulfate 90 mcg/actuation 2 puff inhalation Q4H PRN 01/18/23 03/02/23 History aerosol inhaler COUGH/WHEEZING amitriptyline 50 mg tablet 50 mg PO HS 01/18/23 03/02/23 History aspirin 81 mg chewable tablet 81 mg PO QAM 01/18/23 03/02/23 History atorvastatin 80 mg tablet 80 mg PO DAILY 01/18/23 03/02/23 History empagliflozin 10 mg tablet 10 mg PO QAM 01/18/23 03/02/23 History (Jardiance) fluticasone propionate 50 2 spray intranasal BID PRN 01/18/23 03/02/23 History mcg/actuation nasal Congestion spray,suspension gabapentin 300 mg capsule 300 mg PO BID 01/18/23 03/02/23 History insulin aspart U-100 100 unit/mL 15 unit subcut TIDM 01/18/23 03/02/23 History (3 mL) subcutaneous pen (Novolog FlexPen U-100 Insulin aspart) insulin glargine 100 unit/mL (3 54 unit subcut HS 01/18/23 03/02/23 History mL) subcutaneous pen (Basaglar KwikPen U-100 Insulin) krill oil 1,000 mg-om3 130 mg-dha 1 cap PO QAM 01/18/23 03/02/23 History 40 mg-epa 80 [id number] cap (Krill Oil ([place] 3 and 6)) liraglutide 0.6 mg/0.1 mL (18 mg/3 1.2 mg subcut DAILY PRN FASTING 01/18/23 03/02/23 History mL) subcutaneous pen injector BSG > 150 (Victoza 2-Ajyy) lorazepam 0.5 mg tablet 0.5 mg PO Q8H PRN ANXIETY/INSOMNIA 01/18/23 03/02/23 Hi story metformin 850 mg tablet 850 mg PO TIDM 01/18/23 03/02/23 History metoprolol succinate 25 mg 25 mg PO QAM 01/18/23 03/02/23 History tablet,extended release 24 hr mirabegron 50 mg tablet,extended 50 mg PO QAM 01/18/23 03/02/23 History release 24 hr (Myrbetriq) rivaroxaban 2.5 mg tablet (Xarelto) 2.5 mg PO BID 01/18/23 03/02/23 History ropinirole 0.5 mg tablet 0.5 mg PO HS 01/18/23 03/02/23 History sertraline 50 mg tablet 100 mg PO QAM 01/18/23 03/02/23 History tramadol 50 mg tablet 50 - 100 mg PO Q6H PRN Pain 01/18/23 03/02/23 History Lactobacillus acidophilus 250 1,000 mmu cells PO DAILY 03/02/23 03/02/23 History million cell capsule (Probiotic Acidophilus) cranberry fruit concentrate 250 mg 250 mg PO DAILY 03/02/23 03/02/23 History chewable tablet (Azo Cranberry) docusate sodium 100 mg capsule 100 mg PO BID PRN Constipation 03/02/23 03/02/23 History doxycycline hyclate 100 mg capsule 100 mg PO AMHS 03/02/23 03/02/23 History Patient History Medical History Nocturnal hypoxemia due to emphysema currently using 4L O2 at night Carotid artery stenosis Dyslipidemia GERD without esophagitis History of stroke History of nonmelanoma skin cancer Right inguinal hernia HTN (hypertension) Sensorineural hearing loss SVT (supraventricular tachycardia) Urge incontinence Diabetic macular edema Diabetic retinopathy, nonproliferative COPD (chronic obstructive pulmonary disease) Stenosis of right subclavian artery PAD (peripheral artery disease) CAD (coronary artery disease) Type 2 diabetes mellitus with diabetic neuropathy Surgical History History of cholecystectomy Hx of sinus surgery Status post breast lumpectomy Hx of tubal ligation H/O: hysterectomy H/O cardiac radiofrequency ablation History of right-sided carotid endarterectomy S/P carpal tunnel release S/P femoropopliteal bypass surgery S/P drug eluting coronary stent placement S/P CABG x 3 Family History Other Cancer Diabetes Hypertension Social History Smoking Status: Former smoker Smoking End Date: 12/08/21; Hx Alcohol Use: No Hx Substance Use: No Preferred Language: [place] Communication Ability: Effective Furniture Stainer Required: No Beliefs That Will Affect Care: None Current Living Situation: Spouse Other Information That Helps Us Care for You: No Feels Safe at Home: Yes Safety Concerns: Feels Safe At This Time Assistive Devices: None and Cane Review of Systems Gen- No fevers currently HEENT- No KIM, sore throat Lungs- No SOB or cough CV- No chest pain GI- No N/V or diarrhea. Eating normally now. - No dysuria MSK- No joint pain. RLE pain and "bump" as per HPI Ext- Stable edema Skin- No rash Neuro- No focal weakness Physical Exam Gen- NAD, cooperative with exam HEENT- Clear OP, neck with normal ROM Lungs- Normal respiratory rate MSK- RLE shows proximal ulceration at surgical incision with mild amount of drainage. No significant erythema. Small, superficial ulcer on medial aspect of great toe. Ext- 1-2+ edema, delayed capillary refill Skin- No rash' Neuro- Alert/oriented, moving all 4 extremities Results & Data Vital Signs (Past 12 Hours) Vital Signs Temp Pulse Pulse Resp BP Pulse Ox O2 Del Method 03/06/23 11:21 36.6 C 72 18 111/73 92 Room Air 03/06/23 11:18 83 03/06/23 07:32 36.5 C 81 18 112/72 90 Room Air 03/06/23 03:07 36.6 C 82 18 117/67 98 Nasal Cannula O2 Flow Rate 03/06/23 11:21 03/06/23 11:18 03/06/23 07:32 03/06/23 03:07 4 Laboratory Results WBC 11.18 -> 5.15 Hgb 12.2 Platelets 199 ESR 66 Na 136 Creatinine 0.98 BUN 21 Diagnostic Findings MRI of foot reviewed by me-- no obvious osteomyelitis Blood cultures 03/02/23 with 2 of 4 bottles Morganella morganii
--- NOTE | 2023-03-06 15:03 | Consultation ---
Date of Consultation March 06, 2023 Assessment & Plan (1) PAD (peripheral artery disease): Pt with PAD with R great toe wound, s/p RLE fem-distal bypass, now admitted wiht sepsis bacteremia. No current vascular imaging performed at [facility]. She follows with [facility]. Discussed with Dr Dial. Recommend [facility] eval and treat pt, as they have all necessary records available to them. Please see separate communication note from Dr Dial. Please call if needed. History of Present Illness Reason for Consultation: PAD Attending Physician: Kellen Mack MD History of Present Illness 67 yo f with hx of DMII, CAD s/p CABG, HTN, dyslipidemia, COPD, PAD, admitted with sepsis bacteremia, seen in consultation today for PAD. Pt states she had CABG in April 2022. Then struck her R 4th toe on the [employer] hear[place] in Summer 2022. Saw her PCP for this, and this eventually healed. She then was noted tohave an ulceration on plantar surface of R great toe in Fall 2022, which developed an infection. She came to [facility] ED on and was sent to [facility], where she had a RLE fem-pop bypass. She does not know whether this was vein, tissue, or prosthetic. States she was seen in f/u at [place], and [facility] surgery was concerned about her bypass and scheduled her for a RLE angio, but pt became ill with sepsis and came to [facility]. Pt states feeling better since arrival and getting abx. Denies significant RLE pain. Denies dizziness, chest pain, SOB, abd pain, N/V, rest pain, claudication, other complaints. NO vascular imaging performed of RLE Blood cx positive for Morganella morganii. Allergies Allergy/AdvReac Type Severity Reaction Status Date / Time paroxetine Allergy Severe HIVES;ANAPHYLAXIS-GENERIC Verified 01/18/23 18:54 BRAND nickel Allergy Intermediate RASH Verified 01/18/23 18:54 Penicillins Allergy Intermediate RASH Verified 01/18/23 18:54 Sulfa (Sulfonamide Allergy Intermediate RASH Verified 01/18/23 18:54 Antibiotics) doxepin AdvReac Intermediate HYPOTENSION Verified 01/18/23 18:54 Home Medications Medication Instructions Recorded Confirmed Type albuterol sulfate 90 mcg/actuation 2 puff inhalation Q4H PRN 01/18/23 03/02/23 History aerosol inhaler COUGH/WHEEZING amitriptyline 50 mg tablet 50 mg PO HS 01/18/23 03/02/23 History aspirin 81 mg chewable tablet 81 mg PO QAM 01/18/23 03/02/23 History atorvastatin 80 mg tablet 80 mg PO DAILY 01/18/23 03/02/23 History empagliflozin 10 mg tablet 10 mg PO QAM 01/18/23 03/02/23 History (Jardiance) fluticasone propionate 50 2 spray intranasal BID PRN 01/18/23 03/02/23 History mcg/actuation nasal Congestion spray,suspension gabapentin 300 mg capsule 300 mg PO BID 01/18/23 03/02/23 History insulin aspart U-100 100 unit/mL 15 unit subcut TIDM 01/18/23 03/02/23 History (3 mL) subcutaneous pen (Novolog FlexPen U-100 Insulin aspart) insulin glargine 100 unit/mL (3 54 unit subcut HS 01/18/23 03/02/23 History mL) subcutaneous pen (Basaglar KwikPen U-100 Insulin) krill oil 1,000 mg-om3 130 mg-dha 1 cap PO QAM 01/18/23 03/02/23 History 40 mg-epa 80 [id number] cap (Krill Oil ([place] 3 and 6)) liraglutide 0.6 mg/0.1 mL (18 mg/3 1.2 mg subcut DAILY PRN FASTING 01/18/23 03/02/23 History mL) subcutaneous pen injector BSG > 150 (Victoza 2-Jayy) lorazepam 0.5 mg tablet 0.5 mg PO Q8H PRN ANXIETY/INSOMNIA 01/18/23 03/02/23 History metformin 850 mg tablet 850 mg PO TIDM 01/18/23 03/02/23 History metoprolol succinate 25 mg 25 mg PO QAM 01/18/23 03/02/23 History tablet,extended release 24 hr mirabegron 50 mg tablet,extended 50 mg PO QAM 01/18/23 03/02/23 History release 24 hr (Myrbetriq) rivaroxaban 2.5 mg tablet (Xarelto) 2.5 mg PO BID 01/18/23 03/02/23 History ropinirole 0.5 mg tablet 0.5 mg PO HS 01/18/23 03/02/23 History sertraline 50 mg tablet 100 mg PO QAM 01/18/23 03/02/23 History tramadol 50 mg tablet 50 - 100 mg PO Q6H PRN Pain 01/18/23 03/02/23 History Lactobacillus acidophilus 250 1,000 mmu cells PO DAILY 03/02/23 03/02/23 History million cell capsule (Probiotic Acidophilus) cranberry fruit concentrate 250 mg 250 mg PO DAILY 03/02/23 03/02/23 History chewable tablet (Azo Cranberry) docusate sodium 100 mg capsule 100 mg PO BID PRN Constipation 03/02/23 03/02/23 History doxycycline hyclate 100 mg capsule 100 mg PO AMHS 03/02/23 03/02/23 History Patient History Medical History Nocturnal hypoxemia due to emphysema currently using 4L O2 at night Carotid artery stenosis Dyslipidemia GERD without esophagitis History of stroke History of nonmelanoma skin cancer Right inguinal hernia HTN (hypertension) Sensorineural hearing loss SVT (supraventricular tachycardia) Urge incontinence Diabetic macular edema Diabetic retinopathy, nonproliferative COPD (chronic obstructive pulmonary disease) Stenosis of right subclavian artery PAD (peripheral artery disease) CAD (coronary artery disease) Type 2 diabetes mellitus with diabetic neuropathy Surgical History History of cholecystectomy Hx of sinus surgery Status post breast lumpectomy Hx of tubal ligation H/O: hysterectomy H/O cardiac radiofrequency ablation History of right-sided carotid endarterectomy S/P carpal tunnel release S/P femoropopliteal bypass surgery S/P drug eluting coronary stent placement S/P CABG x 3 Family History Other Cancer Diabetes Hypertension Social History Smoking Status: Former smoker Smoking End Date: 12/08/21; Hx Alcohol Use: No Hx Substance Use: No Preferred Language: Montserratian Communication Ability: Effective Loom Setter [place]drinier Required: No Beliefs That Will Affect Care: None Current Living Situation: Spouse Other Information That Helps Us Care for You: No Feels Safe at Home: Yes Safety Concerns: Feels Safe At This Time Assistive Devices: None and Cane Review of Systems Review of Systems: All systems reviewed & are unremarkable except as noted in HPI & below Physical Exam Constitutional: WD/WN, vitals as above + obese and cooperative; not in distress Neck: trachea midline Respiratory: normal respiratory effort Auscultation: lungs clear to auscultation bilaterally and + diminished lung sounds Cardiovascular: Rate/Rhythm: regular rate and regular rhythm Vessels: femoral pulses present, posterior tibial pulses present (+ doppler BLE) and dorsalis pedis pulses present (+ doppler BLE); + abnormal peripheral pulses Gastrointestinal (Abdomen): Inspection/Auscultation: abdomen normal to inspection and normal bowel sounds Percussion/Palpation: abdomen soft; abdomen nontender Musculoskeletal: no cyanosis or clubbing, extremities motor strength 5/5 Skin: + incision (R groin incision with very s mall open area, no erythema/drainage) RLE lower leg wound with large scabbed area proximally, dry, no erythema or warmth. R toes 2-5 + cap refill, warm. R great toe dressing in place. Neurologic: moves all extremities and awake; no focal motor deficits and not confused Psychiatric: A+Ox3, euthymic affect Results & Data Vital Signs (Past 12 Hours) Vital Signs Temp Pulse Pulse Resp BP Pulse Ox O2 Del Method 03/06/23 11:21 36.6 C 72 18 111/73 92 Room Air 03/06/23 11:18 83 03/06/23 07:32 36.5 C 81 18 112/72 90 Room Air 03/06/23 03:07 36.6 C 82 18 117/67 98 Nasal Cannula O2 Flow Rate 03/06/23 11:21 03/06/23 11:18 03/06/23 07:32 03/06/23 03:07 4
[2023-03-06] MEDS ORDERED: CIPROFLOXACIN 500 MG TAB PO SCH (21:00)
--- NOTE | 2023-03-07 10:04 | Discharge Summary ---
Date of Service March 06, 2023 Admission HPI Per Admitting Provider This is a 67 y/o female with insulin-requiring DM2, CAD s/p CABG x 3 (06/19), PAD w/ recent emergent revascularlization of the RLE, COPD/emphysema, diabetic retinopathy and macular edema, diabetic neuropathy, hx SVT, HTN, prior CVA, anxiety/depression, dyslipidemia, and other history as outlined below who was referred to the ED today for possible sepsis. In Dec 2022, pt presented to the [facility] ED with RLE pain x 3 days. She was found to have ischemic limb with multiple occlusions and was life-flighted to [place] for emergency revascularization on 01/19/23 and discharged on 01/22/23 on doxycylcine and cefuroxime until 02/02/23 as well as on rivaroxaban 2.5 mg BID. Pt has been following with Dr. Pankaj Chisholm for podiatric care who had recommended an MRI to rule out osteomyelitis. Followed up with vascular surgery on 02/24 due to possible right leg bypass infection due to pain and redness over the right medial calf surgical incision site - bypass found to be occluded. She was started on doxycycline 100 mg BID for ten days. She was instructed to paint the right great toe ulcer with Betadine and cover with dry dressing daily. Followed up with vascular yesterday - symptoms of infection were improving on the doxycycline. Scheduled for angiogram and attempt revasc for 03/03/23. Xarelto held for procedure. Pt reports that she felt fine when she went to bed last evening. This morning, she went to get pre-op labs for vascular procedure tomorrow and had the sudden onset of shaking chills, weakness, nausea/vomiting, and lightheadedness. She reached out to her vascular surgeon who was concerned she may be septic and recommended she go to the ER. She reports that the right great toe ulcer continues to improve with less redness and edema. She continues with scant drainage from the ulcer, has been following wound care instruction from vascular and painting the ulcer with Betadine daily. She denies chest pain, cough, shortness of breath, congestion, diarrhea, dysuria, hematuria. Her last dose of doxycycline was last night. Sugars have been at baseline the last few days. She does use a DexCom for monitoring. 01/19/23 pt underwent the following by Dr. Rosas: * RCFA to BK Pop Art BPG w/ cryopreserved vein * RDFA endarterectomy, beyond the site of our bypass proximal anastomosis (common femoral endarterectomy also performed as part of the revascularization) * PTCA REIA Admission Exam Per Admitting Provider Physical Exam: General: awake, alert, NAD, Ox3 HEENT: no scleral icterus Neck: trachea midline Heart: RRR, +II/ systolic murmur Lungs: CTA bilaterally, no W/R/R Abdomen: soft, obese, NT, +BS Extremities: unable to palpate distal LE pulses Skin: right great toe with ulcer on medial aspect, scant serous drainage, mild surrounding erythema, no warmth, minimally tender Neurologic: moving all extremities, no focal deficits, no confusion, no dysarthria Principal Diagnosis Sepsis secondary to Morganella bacteremia, PAD, type 2 diabetes Discharge Exam Sitting on a chair without any acute distress Constitutional well developed, well nourished, + ill appearing and + obese Eyes PERRL, conjunctivae normal, anicteric sclerae ENMT external ear and nose normal, oropharynx normal Neck trachea midline, no thyromegaly Respiratory no respiratory distress Auscultation: lungs clear to auscultation bilaterally and + diminished lung sounds Cardiovascular Rate/Rhythm: regular rate and regular rhythm; not tachycardic Heart Sounds: normal S1, normal S2 and + murmur (2/6 ESM over precordium) Extremities: + edema (Trace to 1+ edema bilaterally. More on the right) Gastrointestinal (Abdomen) Inspection/Auscultation: normal bowel sounds; abdomen not distended Percussion/Palpation: abdomen soft; abdomen nontender Neurologic normal touch/pain/proprioception and moves all extremities; no focal motor deficits Lymphatic no cervical or axillary lymphadenopathy Discharge Data Allergies Allergy/AdvReac Type Severity Reaction Status Date / Time paroxetine Allergy Severe HIVES;ANAPHYLAXIS-GENERIC Verified 01/18/23 18:54 BRAND nickel Allergy Intermediate RASH Verified 01/18/23 18:54 Penicillins Allergy Intermediate RASH Verified 01/18/23 18:54 Sulfa (Sulfonamide Allergy Intermediate RASH Verified 01/18/23 18:54 Antibiotics) doxepin AdvReac Intermediate HYPOTENSION Verified 01/18/23 18:54 Consultations 03/02/23 15:13 ED Decision to Admit Stat 03/02/23 17:54 Consult Podiatry Routine 03/03/23 15:48 Consult Vascular Surgery Routine 03/05/23 09:54 Consult Infectious Diseases Routine Ordered Studies 03/02/23 12:34 CTA chest w con [CT angio chest w con] Stat 03/03/23 00:13 MR foot RT w/o con Routine Hospital Course (1) Severe sepsis: This is a 67 y/o female with insulin-requiring DM2, CAD s/p CABG x 3 (06/19), PAD w/ recent emergent revascularlization of the RLE, COPD/emphysema, diabetic retinopathy and macular edema, diabetic neuropathy, hx SVT, HTN, prior CVA, anxiety/depression, dyslipidemia, and other history as outlined below who was referred to the ED today for possible sepsis. On initial presentation, pt was hypotensive with systolic BP in the 60s, tachycardic >100, tachypnea. Initial lactic acid was 2.3, rpt 2.8. Procal elevated at 10.65. Initial troponin 48.6, rpt 63.3. Given 1L of IVF in the ED but second liter held due to concerns for pulmonary edema. Did not require Levophed drip although initially ordered. Cefepime given for broad-spectrum coverage and pt referred for admission. Presumed source of sepsis is known right great toe ulcer, pt has been on doxycycline from vascular. -Likely secondary to infected recent surgical site/right big toe ulceration and cellulitis - ED provider discussed pt with vascular surgery at [facility] where pt follows - they agree with our plan to stabilize the patient and work-up further here before determining potential need for transfer vs. discharge with outpatient follow-up - Continue IV cefepime but broaden coverage to include MRSA coverage with Vanco. -Blood cultures 1 out of 2 bottle is growing gram-negative bacilli - MRI of right foot did not show any osteomyelitis -Appreciate oyster shucker input and recommendation-conservative management versus I&D and amputation -Feeling a lot better today and denies any more chills, fever, pain in the leg, nausea and or vomiting -1 out of 2 blood culture is positive for gram-negative bacilli and further identification and sensitivity are pending -Remains hemodynamically stable with much improvement of general condition -Clinically much better, right leg swelling is better, no pain and/or numbness and tingling, no fever and or chills -1 out of 2 blood cultures is growing Morganella more likely which is pansensitive -MRSA screen has been negative and will discontinue vancomycin -Patient has been feeling much better and denies any significant symptoms -Awaiting ID recommendation prior to discharge (2) Demand ischemia: Initial troponin 48.6, rpt 63.3. Pt denies any anginal symptoms but has a history of CAD with CABG x 3 in 2022. - Will trend troponin Q6hrs x 2-troponins moderately elevated from 48.6 on admission to 98.8 without any acute EKG changes - Check ECHO showed: LV is normal in size, moderate concentric LVH, mild hypokinesis of the apical septum with otherwise preserved wall motion and normal LV systolic function, EF 60 to 65%, grade 1 diastolic dysfunction, there is mild aortic valve calcification greatest on the noncoronary cusp, no hemodynamically significant valvular aortic stenosis, there is mild mitral annular calcification, there is trace mitral regurgitation and trace tricuspid regurgitation -- Cautiously resume pt's beta-wojciech as BP has improved, hx of CAD s/p CABG -Troponin elevation is due to sepsis -Doubt any ACS (3) Hypomagnesemia: Mg today of 1.2 - pt reports that she was previously on supplemental magnesium but a provider told her to stop it - Replete mag IV -Magnesium level has been normalized (4) Diabetic ulcer of right great toe: - Wound culture - Wound care consult - Podiatry consult-appreciate input and recommendation for possible I&D/amputation with ongoing conservative management -Has been getting wound care as per the oyster shucker (5) Type 2 diabetes mellitus with diabetic neuropathy: - Continue basal insulin, sliding scale - Diabetic diet - Metformin on hold - A1c in the AM------ hemoglobin A1c is elevated at 9.6 - BSG ACHS -Sliding scale has been modified as blood sugar is running very high -Diabetes is not yet controlled and blood sugar remains around more than 300 -Will increase the dose of Lantus to 25 twice daily Blood sugar seems to be stable (6) CAD (coronary artery disease): Suspect demand ischemia as cause of troponin elevation - currently asymptomatic As above (7) PAD (peripheral artery disease): See plan for #1 Will resume rivaroxaban 2.5 mg BID since no immediate surgical intervention anticipated - pt was started on by vascular after surgery in Nov Will consult vascular surgery No signs and or symptoms of ischemia involving the extremities Will need to see vascular surgery as an outpatient as soon as possible following discharge (8) Morbid obesity due to excess calories: (9) COPD (chronic obstructive pulmonary disease): Stable - continue prn rescue inhaler (10) HTN (hypertension): Hypotensive on presentation due to severe sepsis - plan as above (11) Dyslipidemia: Chronic - continue statin (12) Nocturnal 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 Code Status: Full code DVT Prophylaxis: on rivaroxaban Total Time Total Time Spent Total Time Spent (In Minutes): 45 minutes Discharge Plan Discharge Items Patient Disposition: Home - Self-Care Reason For Visit: SEPSIS Discharge Diagnosis: Sepsis secondary to Morganella bacteremia, PAD, type 2 diabetes Condition on Discharge: Fair Activity: Resume your previous activity Non-emergency contact: Primary Care Provider Call non-emergency contact if: you have any medication questions and your symptoms worsen Follow-up/Referrals: Jonny Donaldson MD [Primary Care Provider] - Diet: Carb Consistent or DM2 Addtl Attending Provider Instructions: Please take precautions to avoid fall Take the antibiotics advised until 03/16/2023 Keep appointment with your PCP Please make an appointment with [facility] vascular surgery as soon as possible And take a probiotic [id number] as long as you are on antibiotics Pending Studies at Discharge: No Stand-Alone Forms: My Remote Assistant, Smoking Cessation Medications and DC Order Prescriptions: New ciprofloxacin HCl 500 mg Tablet 500 mg PO BID Qty: 20 0RF Continued atorvastatin 80 mg tablet 80 mg PO DAILY metformin 850 mg tablet 850 mg PO TIDM tramadol 50 mg tablet 50 - 100 mg PO Q6H PRN (Reason: Pain) amitriptyline 50 mg tablet 50 mg PO HS lorazepam 0.5 mg tablet 0.5 mg PO Q8H PRN (Reason: ANXIETY/INSOMNIA) ropinirole 0.5 mg tablet 0.5 mg PO HS Rx Instructions: TAKE BEFORE NAPS & HS. gabapentin 300 mg capsule 300 mg PO BID Rx Instructions: TAKES AT LUNCH & HS aspirin 81 mg Tablet,Chewable 81 mg PO QAM metoprolol succinate 25 mg tablet extended release 24 hr 25 mg PO QAM albuterol sulfate 90 mcg/actuation HFA aerosol inhaler 2 puff INHALATION Q4H PRN (Reason: COUGH/WHEEZING) fluticasone propionate 50 mcg/actuation [place],Suspension 2 spray INTRANASAL BID PRN (Reason: Congestion) Rx Instructions: administer into each nostril sertraline 50 mg tablet 100 mg PO QAM insulin aspart U-100 [Novolog FlexPen U-100 Insulin] 100 unit/mL (3 mL) insulin pen 15 unit SUBCUT TIDM insulin glargine [Basaglar KwikPen U-100 Insulin] 100 unit/mL (3 mL) insulin pen 54 unit SUBCUT HS Krill Oil ([place] 3 and 6) 1000-130(40-80) mg Capsule 1 cap PO QAM Victoza 2-Jayy 0.6 mg/0.1 mL (18 mg/3 mL) pen injector 1.2 mg SUBCUT DAILY PRN (Reason: FASTING BSG > 150) Myrbetriq 50 mg tablet extended release 24 hr 50 mg PO QAM Jardiance 10 mg tablet 10 mg PO QAM Xarelto 2.5 mg tablet 2.5 mg PO BID doxycycline hyclate 100 mg capsule 100 mg PO AMHS docusate sodium 100 mg Capsule 100 mg PO BID PRN (Reason: Constipation) Azo Cranberry 250 mg Tablet,Chewable 250 mg PO DAILY Probiotic Acidophilus 250 million cell Capsule 1,000 mmu cells PO DAILY Discharge Orders: Discharge Order (Routine); Ordered 03/06/23 Ordered By: Kellen Worthington/Other Patient Handouts: Rivaroxaban Oral Tablet, Diabetes and Heart Disease Admission Data Admit Date/Time: 03/02/23 15:39 Attending Provider: Kellen Mack Admit Provider: Milagro Bird Primary Care Provider: Jonny Donaldson Other Providers: Milagro Bird; Pankaj Chisholm; Lauri Dial; Aditya Gonzáles; Virgen Ovalle; Gigi Ribera I.; Rj Ga II; Codie Billingsley; Frank Delong; Onur Ziegler; Mark King; Yonatan Orr [facility] Other Interventions: Discharge Summary Assessment (RN) Last Done: 03/06/23 16:05
== END 2023-03-06 16:55 | disposition home or self-care (01) | DRG 872 ==
LOC: ED 11:18 → EDINP 15:39 → SUATTDRO 15:39 → 2E 03-03 17:55

== ENCOUNTER 2024-04-26 09:35 | Inpatient (IN) ==
--- NOTE | 2024-04-26 10:02 | Emergency Department Note ---
Impression & Plan Cellulitis, Acute hyperglycemia, PAD (peripheral artery disease) ED Provider Note NAME: ALLEN HERNANDEZ AGE: 68 SEX: F : 1955 ARRIVES VIA: Walk-In INFORMANT: Patient ED PROVIDER(S): Bernard Aj DO CHIEF COMPLAINT: Right lower extremity redness and pain HPI: Patient is a 68-year-old female with a past medical history of sepsis, ischemia, hypertension, dyslipidemia, COPD, CAD who presents to the ER for redness of the right lower extremity. She has been on doxycycline and Keflex for 10 days. Redness is still persistent. She notes it is painful at the ankle and the anterior aspect. She denies any headache or change in vision. No chest pain or shortness of breath. No nausea, vomiting, or diarrhea. ADDITIONAL HISTORY OBTAINED: is present at bedside and provides additional history and notes that patient just completed a full course of 2 antibiotics. He also notes that she has had vascular surgery on that right lower extremity. Chronic Medical/Social Conditions Affecting Care: Per HPI PAST MEDICAL HISTORY:See Below PAST SURGICAL HISTORY:See Below FAMILY HISTORY:See Below SOCIAL HISTORY:See Below HOME MEDICATIONS:See Below ALLERGIES:See Below VITALS:See Below PHYSICAL EXAMINATION: GENERAL: Sitting up in bed, alert, well appearing, well nourished, no distress, non-toxic EYE EXAM: normal conjunctiva. OROPHARYNX: no exudate, no erythema, lips, buccal mucosa, and tongue normal and mucous membranes are moist NECK: supple, no nuchal rigidity, no adenopathy, non-tender LUNGS: Clear to auscultation. Normal chest wall mechanics HEART: no murmurs, S1 normal and S2 normal ABDOMEN: abdomen soft, non-tender, normo-active bowel sounds, no masses, no rebound or guarding. UPPER EXTREMITIES: upper extremities are grossly normal. LOWER EXTREMITIES: Right lower extremity with chronic venous stasis changes in the anterior distal tib-fib with surrounding erythema tracking up to the upper portion of the meza and ankle. Skin is warm and tender. Unable to appreciate DP and PT. Flexion extension right hip knee and ankle is intact. NEURO EXAM: Normal sensorium, cranial nerves II-XII grossly intact, normal speech, no gross weakness of arms, no gross weakness of legs. MEDICAL DECISION MAKING: Patient is a 68-year-old female who presents ER for above-stated complaint. IV was established and blood work was obtained. Labs show no significant leukocytosis or anemia. BMP with mild hyponatremia 135. Glucose slightly elevated at 170. LFTs and bilirubin were unremarkable. Unable to appreciate DP and PT on right lower extremity. Arterial scan was ordered and patient was already given IV Rocephin for cellulitis. I discussed the case with the hospitalist for further evaluation management treatment. Arterial scan resulted after the admission. Please see the hospitalist notes for further documentation and disposition. Consults/Care Managements Discussions: Per MDM Triage Nursing notes reviewed. Limited review of prior medical records performed Vital Signs: reviewed and remarkable for no significant abnormalities Differential diagnosis: Cellulitis, abscess, MRSA infection, DVT, necrotizing fasciitis, dermatitis, drug eruption, allergic reaction, as well as other pathologies. ER treatment provided: See below Diagnostics interpreted by me include EKG and cardiac monitoring as listed below: -Cardiac Monitoring: An order was placed for continuous cardiac monitoring. The monitor shows a rate of 80 with sinus rhythm. -ECG: none -Laboratory studies:Interpreted by me as stated above in MDM and shown below. Imaging studies: Xrays: As interpreted by me:none CTs show: none Arterial scan shows peripheral artery disease with peroneal occlusion Procedures:none Critical Care: None Past Med/Surg History Problem List (Updated 04/26/24 @ 15:45 by Bernard Aj DO) Acute hyperglycemia (Acute) Cellulitis (Acute) Sepsis (Acute) Hypomagnesemia Diabetic ulcer of right great toe Demand ischemia Severe sepsis Nocturnal hypoxemia due to emphysema currently using 4L O2 at night Dyslipidemia HTN (hypertension) Morbid obesity due to excess calories COPD (chronic obstructive pulmonary disease) Stenosis of right subclavian artery (Acute) PAD (peripheral artery disease) (Acute) CAD (coronary artery disease) Type 2 diabetes mellitus with diabetic neuropathy Medical History Nocturnal hypoxemia due to emphysema currently using 4L O2 at night Carotid artery stenosis Dyslipidemia GERD without esophagitis History of stroke History of nonmelanoma skin cancer Right inguinal hernia HTN (hypertension) Sensorineural hearing loss SVT (supraventricular tachycardia) Urge incontinence Diabetic macular edema Diabetic retinopathy, nonproliferative COPD (chronic obstructive pulmonary disease) Stenosis of right subclavian artery PAD (peripheral artery disease) CAD (coronary artery disease) Type 2 diabetes mellitus with diabetic neuropathy Surgical History History of cholecystectomy Hx of sinus surgery Status post breast lumpectomy Hx of tubal ligation H/O: hysterectomy H/O cardiac radiofrequency ablation History of right-sided carotid endarterectomy S/P carpal tunnel release S/P femoropopliteal bypass surgery S/P drug eluting coronary stent placement S/P CABG x 3 Family History Other Cancer Diabetes Hypertension Social History Smoking Status: Former smoker Hx Alcohol Use: No Hx Substance Use: No Preferred Language: [place] Communication Ability: Effective [facility] Health Officer Required: No Beliefs That Will Affect Care: None Current Living Situation: Spouse Feels Safe at Home: Yes Assistive Devices: None and Cane Allergies Allergies Allergy/AdvReac Type Severity Reaction Status Date / Time paroxetine Allergy Severe HIVES;ANAPHYLAXIS-GENERIC Verified 01/18/23 18:54 BRAND nickel Allergy Intermediate RASH Verified 01/18/23 18:54 Penicillins Allergy Intermediate RASH Verified 01/18/23 18:54 Sulfa (Sulfonamide Allergy Intermediate RASH Verified 01/18/23 18:54 Antibiotics) doxepin AdvReac Intermediate HYPOTENSION Verified 01/18/23 18:54 Home Meds Home Medications Medication Instructions Recorded Confirmed albuterol sulfate 90 mcg/actuation 2 puff inhalation Q4H PRN 01/18/23 04/26/24 aerosol inhaler COUGH/WHEEZING amitriptyline 50 mg tablet 50 mg PO HS 01/18/23 04/26/24 aspirin 81 mg chewable tablet 81 mg PO QAM 01/18/23 04/26/24 atorvastatin 80 mg tablet 80 mg PO DAILY 01/18/23 04/26/24 empagliflozin 10 mg tablet 10 mg PO QAM 01/18/23 04/26/24 (Jardiance) fluticasone propionate 50 2 spray intranasal BID PRN 01/18/23 04/26/24 mcg/actuation nasal Congestion spray,suspension gabapentin 300 mg capsule 300 mg PO BID 01/18/23 04/26/24 insulin aspart U-100 100 unit/mL 15 unit subcut TIDM 01/18/23 04/26/24 (3 mL) subcutaneous pen (Novolog FlexPen U-100 Insulin aspart) insulin glargine 100 unit/mL (3 54 unit subcut HS 01/18/23 04/26/24 mL) subcutaneous pen (Basaglar KwikPen U-100 Insulin) krill oil 1,000 mg-om3 130 mg-dha 1 cap PO QAM 01/18/23 04/26/24 40 mg-epa 80 [id number]-astax cap (Krill Oil ([place] 3 and 6)) liraglutide 0.6 mg/0.1 mL (18 mg/3 1.2 mg subcut DAILY PRN FASTING 01/18/23 04/26/24 mL) subcutaneous pen injector BSG > 150 (Victoza 2-Jayy) lorazepam 0.5 mg tablet 0.5 mg PO Q8H PRN ANXIETY/INSOMNIA 01/18/23 04/26/24 metformin 850 mg tablet 850 mg PO TIDM 01/18/23 04/26/24 metoprolol succinate 25 mg 25 mg PO QAM 01/18/23 04/26/24 tablet,extended release 24 hr rivaroxaban 2.5 mg tablet (Xarelto) 2.5 mg PO BID 01/18/23 04/26/24 ropinirole 0.5 mg tablet 0.5 mg PO HS 01/18/23 04/26/24 sertraline 50 mg tablet 100 mg PO QAM 01/18/23 04/26/24 tramadol 50 mg tablet 50 - 100 mg PO Q6H PRN Pain 01/18/23 04/26/24 Lactobacillus acidophilus 250 1,000 mmu cells PO DAILY 03/02/23 04/26/24 million cell capsule (Probiotic Acidophilus) cranberry fruit concentrate 250 mg 250 mg PO DAILY 03/02/23 04/26/24 chewable tablet (Azo Cranberry) Previous Rx's Medication Instructions Recorded Saccharomyces boulardii 250 mg 250 mg PO BID #20 caps 06/01/23 capsule (Florastor) Results & Data (ED) Vital Signs Vital Signs - 24 hr 04/26/24 09:40 04/26/24 09:58 04/26/24 09:58 Temperature 36.3 C L Temperature Source Temporal Artery Scan Pulse Rate 87 70 Pulse Rate [Apical] 79 Pulse Rhythm Regular Pulse Rhythm [Apical] Regular Pulse Strength [Apical] Normal Respiratory Rate 14 20 18 Respiratory Effort / Characteristics Non-Labored Respiratory Depth Normal Respiratory Pattern Regular Blood Pressure 91/63 L Blood Pressure [Left Arm] 94/68 L Blood Pressure Mean 72 Blood Pressure Mean [Left Arm] 76 Blood Pressure Position [Left Arm] Lying Pulse Oximetry 96 91 91 Oxygen Delivery Method Room Air Room Air Room Air Oxygen Flow Rate Sepsis New/Unexplained Change in Mental Status No Sepsis Action Taken by Nursing No Action Required 04/26/24 10:31 04/26/24 11:17 Temperature Temperature Source Pulse Rate 79 Pulse Rate [Apical] 80 Pulse Rhythm Pulse Rhythm [Apical] Regular Pulse Strength [Apical] Normal Respiratory Rate 19 Respiratory Effort / Characteristics Non-Labored Respiratory Depth Normal Respiratory Pattern Regular Blood Pressure Blood Pressure [Left Arm] 145/59 H Blood Pressure Mean Blood Pressure Mean [Left Arm] 87 Blood Pressure Position [Left Arm] Sitting Pulse Oximetry 100 Oxygen Delivery Method Nasal Cannula Oxygen Flow Rate 2 Sepsis New/Unexplained Change in Mental Status Sepsis Action Taken by Nursing Laboratory Data 04/26/24 10:15 04/26/24 10:15 Lab Results 04/26/24 Range/Units 10:15 WBC 8.32 (4.8-10.8) K/ul RBC 5.34 (4.20-5.40) M/uL Hgb 13.4 (12.0-16.0) g/dl Hct 45.0 (37.0-47.0) % MCV 84.3 (80.0-100.0) fL MCH 25.1 (25.0-34.0) pg MCHC 29.8 L (32.0-36.0) g/dL RDW Std Deviation 60.7 H (36.4-46.3) fL RDW Coeff of Janice 20.8 H (11.5-14.5) % Plt Count 197 (130-400) K/uL MPV 10.9 (9.4-12.4) fL Immature Gran % (Auto) 0.2 % Neut % (Auto) 79.8 % Lymph % (Auto) 11.3 % Glenn % (Auto) 6.3 % Eos % (Auto) 2.0 % Baso % (Auto) 0.4 % Neut # (Auto) 6.64 H (1.40-6.50) K/uL Lymph # (Auto) 0.94 L (1.20-3.40) K/uL Glenn # (Auto) 0.52 (0.11-0.59) K/uL Eos # (Auto) 0.17 (0.00-0.50) K/uL Baso # (Auto) 0.03 (0.00-0.20) K/uL Immature Gran # (Auto) 0.02 (0.01-0.20) K/uL Polychromasia 1+ Anisocytosis Present Sodium 135 L (136-145) mmol/L Potassium 4.8 (3.5-5.1) mmol/L Chloride 99 (98-107) mmol/L Carbon Dioxide 30 (21-32) mmol/L Anion Gap 6 (3-11) BUN 15 (6-23) mg/dl Creatinine 0.86 (0.6-1.2) mg/dl Est Cr Clr Drug Dosing 89.6 ml/min eGFR 73.54 BUN/Creatinine Ratio 17.4 (10-20) Glucose 169 H (70-99(Fasting)) mg/dl Calcium 8.7 (8.6-10.3) mg/dl Total Bilirubin 0.5 (0.2-1.0) mg/dl AST 18 (13-39) U/L ALT 13 (7-52) U/L Alkaline Phosphatase 99 (34-104) U/L Total Protein 6.7 (6.0-8.3) gm/dl Albumin 3.6 (3.4-5.0) gm/dl Globulin 3.1 (2.5-4.0) gm/dl Albumin/Globulin Ratio 1.2 (0.9-2) Administered Medications Heparin Sodium/Dextrose (Heparin 15788 Unit/500 Ml D5w) 25,000 units in 500 mls @ 33 mls/hr IV .[id number] [facility]; Protocol Stop: 05/26/24 13:14 Last Admin: 04/26/24 13:48 Dose: 1,650 units/hr, 33 mls/hr Documented By: MAYNRO Co-signed By: ZBIGNIEW Sodium Chloride (Nss) 1,000 mls @ 80 mls/hr IV .[id number] ONE Stop: 04/27/24 01:24 Last Admin: 04/26/24 13:49 Dose: 80 mls/hr Documented By: MAYNOR Vancomycin HCl 2,500 mg/ (Sodium Chloride) 550 mls @ 180 mls/hr IV NOW ONE Stop: 04/26/24 17:03 Last Admin: 04/26/24 14:23 Dose: 180 mls/hr Documented By: MAYNOR Discontinued Medications Heparin Sodium (Porcine) (Heparin Sod (Porcine) 1000 Unit/Ml) 7,000 units IV NOW STA Stop: 04/26/24 13:34 Last Admin: 04/26/24 13:47 Dose: 7,000 units Documented By: MAYNOR Co-signed By: ZBIGNIEW Ceftriaxone Sodium (Rocephin) 2,000 mg in 50 mls @ 100 mls/hr IV NOW STA Stop: 04/26/24 10:27 Last Infusion: 04/26/24 11:22 Dose: Infused Documented By: Admin: 04/26/24 10:33 Dose: 100 mls/hr Documented By: SRL Sodium Chloride (Nss) 1,000 mls @ 999 mls/hr IV .[id number] ONE Stop: 04/26/24 11:02 Last Infusion: 04/26/24 11:38 Dose: Infused Documented By: Admin: 04/26/24 10:33 Dose: 999 mls/hr Documented By: SRL Ceftriaxone Sodium (Rocephin) 1,000 mg in 50 mls @ 100 mls/hr IV Q24H YARITZA Stop: 05/03/24 12:29 Last Admin: 04/26/24 14:28 Dose: Not Given Documented By: MAYNOR Imaging Data Radiologist's Impression: Duplex Scan Lower Extremity Artery 04/26/24 09:58 US arterial duplex LE RT CLINICAL HISTORY: rle pain COMPARISON STUDY: 01/18/2023 FINDINGS: There is severe stenosis or short segment occlusion proximal right common femoral artery. There is no flow seen in the right peroneal artery, presumed occlusion. No other evidence of arterial occlusion seen at the right lower extremity. IMPRESSION: 1. Short segment severe stenosis or occlusion proximal right common femoral artery. 2. Occlusion of the right peroneal artery. ACT 112: Negative or not required by law. Electronically signed by: Juan Jorge M.D. 04/26/2024 12:37 PM Discharge Plan Visit Data Chief Complaint: Infection Stated Complaint: CELLULITIS/RT LEG ED Provider: Bernard Aj Discharge Problem: Cellulitis, Acute hyperglycemia, PAD (peripheral artery disease) Patient Disposition: Admitted As Inpatient Discharge Instructions Interventions: ED Discharge Assessment Last Done: 04/26/24 15:15 Discharge Problem: Cellulitis Qualifiers: Site of cellulitis: unspecified site Qualified Code(s): L03.90 - Cellulitis, unspecified
[2024-04-26] MEDS: cefTRIAXone SODIUM 2,000 MG/50 ML BAG IV STA (10:33)
[2024-04-26] MEDS: SODIUM CHLORIDE 0.9% 1,000 ML IV ONE ×2 (10:33→13:49)
[2024-04-26 10:36] LABS: Basophils # (auto) 0.03 K/uL (0.00-0.20); Basophils % (auto) 0.4 %; Eosinophils # (auto) 0.17 K/uL (0.00-0.50); Hemoglobin 13.4 g/dl (12.0-16.0); Immature Granulocytes # (auto) 0.02 K/uL (0.01-0.20); Immature Granulocytes % (auto) 0.2 %; Lymphocytes # (auto) 0.94 K/uL (1.20-3.40); Lymphocytes % (auto) 11.3 %; Mean Corpuscular Hemoglobin 25.1 pg (25.0-34.0); Mean Corpuscular Hgb Conc 29.8 g/dL (32.0-36.0); Mean Corpuscular Volume 84.3 fL (80.0-100.0); Mean Platelet Volume 10.9 fL (9.4-12.4); Monocytes # (auto) 0.52 K/uL (0.11-0.59); Monocytes % (auto) 6.3 %; Neutrophils # (auto) 6.64 K/uL (1.40-6.50); Neutrophils % (auto) 79.8 %; Platelet Count 197 K/uL (130-400); RDW Coefficient of Variation 20.8 % (11.5-14.5); RDW Standard Deviation 60.7 fL (36.4-46.3); Red Blood Count 5.34 M/uL (4.20-5.40); White Blood Count 8.32 K/ul (4.8-10.8)
[2024-04-26 10:57] LABS: Albumin Globulin Ratio 1.2 (0.9-2); Albumin Level 3.6 gm/dl (3.4-5.0); BUN Creatinine Ratio 17.4 (10-20); Bilirubin,Total 0.5 mg/dl (0.2-1.0); Calcium 8.7 mg/dl (8.6-10.3); Creatinine Clr Calc Pharmacy 89.6 ml/min; Globulin 3.1 gm/dl (2.5-4.0); Potassium 4.8 mmol/L (3.5-5.1); Total Protein 6.7 gm/dl (6.0-8.3)
[2024-04-26 10:58] LABS: Anisocytosis Present; Polychromasia 1+
[2024-04-26] MEDS ORDERED: GLUCOSE 40% GEL 15 GM TUBE PO PRN (11:32)
[2024-04-26] MEDS ORDERED: CARBOHYDRATES FOR HYPOGLYCEMIA PO PRN (11:32)
[2024-04-26] MEDS ORDERED: ACETAMINOPHEN 325 MG TAB PO PRN (11:32)
[2024-04-26] MEDS ORDERED: GLUCAGON FOR INJ 1 MG VIAL SQ PRN (11:32)
[2024-04-26] MEDS ORDERED: DEXTROSE 50% 50 ML SYRINGE IV PRN (11:32)
[2024-04-26] MEDS ORDERED: GLUCOSE 10 TAB/TUBE PO PRN (11:32)
--- NOTE | 2024-04-26 11:43 | History & Physical Report ---
Date of Service April 26, 2024 Assessment & Plan (1) Dyslipidemia: (2) HTN (hypertension): (3) COPD (chronic obstructive pulmonary disease): (4) Stenosis of right subclavian artery: (5) PAD (peripheral artery disease): (6) CAD (coronary artery disease): (7) Type 2 diabetes mellitus with diabetic neuropathy: (8) History of stroke: Plan The patient is a 68-year-old female with a PMH of PAD with history of revascularization who presents to the ED on 04/26/2024 with complaints of right lower extremity cellulitis that has not improved on doxycycline and Keflex after 10 days. Right lower extremity cellulitis Severe stenosis/possible occlusion of proximal right common femoral artery Occlusion of right peroneal artery History of severe PAD Completed a course of oral doxycycline and Keflex x 10 days on 04/25 with no improvement Will initiate IV ceftriaxone/Vanco, no leukocytosis, afebrile Arterial duplex scan showing occlusion of the proximal R common femoral artery and R peroneal artery Imaging from December 2022 with similar findings Hold Xarelto and initiate IV heparin drip, consult vascular Hx [id number] requiring: Managed on Mounjaro/Lantus at home, SSI/4 times daily BGM, diabetic pharmacy consult Hx CAD s/p CABG x 3: Hx HTN/CVA Continue aspirin/metoprolol/statin Hx anxiety/depression: Continue amitriptyline/sertraline DNR/DNI DVT prophylaxis: Xareltoheparin drip for now A total of 60 minutes was spent on chart review/reviewing diagnostic data/discussion with consultants/facilitating plan of care History of Present Illness Chief Complaint: Right lower extremity cellulitis Primary Care Provider: Jonny Donaldson MD This is a 68 y/o female with insulin-requiring DM2, CAD s/p CABG x 3 (06/19), PAD w/hx of emergent revascularlization of the RLE, COPD/emphysema, diabetic retinopathy and macular edema, diabetic neuropathy, hx SVT, HTN, prior CVA, anxiety/depression, dyslipidemia,who presents to the ED on 04/26/2024 with complaints of right lower extremity redness and cellulitis that is not improving. Patient was placed on Doxy and Keflex 10 days ago and reports no improvement. Patient was also given torsemide for lower extremity swelling about 3 days prior. Patient has any fever/chest pain/shortness of breath. Patient 4 L chronically at bedtime. Patient also received 2 injections of IV ceftriaxone at her PCPs office earlier this week. On arrival to the ED, labs are remarkable for NA 135, glucose 169 The patient was given a dose of IV ceftriaxone in the ER will be admitted for further management of cellulitis, duplex scan lower extremity arterialpending Allergies Allergy/AdvReac Type Severity Reaction Status Date / Time paroxetine Allergy Severe HIVES;ANAPHYLAXIS-GENERIC Verified 01/18/23 18:54 BRAND nickel Allergy Intermediate RASH Verified 01/18/23 18:54 Penicillins Allergy Intermediate RASH Verified 01/18/23 18:54 Sulfa (Sulfonamide Allergy Intermediate RASH Verified 01/18/23 18:54 Antibiotics) doxepin AdvReac Intermediate HYPOTENSION Verified 01/18/23 18:54 Home Medications Medication Instructions Recorded Confirmed Type albuterol sulfate 90 mcg/actuation 2 puff inhalation Q4H PRN 01/18/23 04/26/24 History aerosol inhaler COUGH/WHEEZING amitriptyline 50 mg tablet 50 mg PO HS 01/18/23 04/26/24 History aspirin 81 mg chewable tablet 81 mg PO QAM 01/18/23 04/26/24 History atorvastatin 80 mg tablet 80 mg PO DAILY 01/18/23 04/26/24 History empagliflozin 10 mg tablet 10 mg PO QAM 01/18/23 04/26/24 History (Jardiance) fluticasone propionate 50 2 spray intranasal BID PRN 01/18/23 04/26/24 History mcg/actuation nasal Congestion spray,suspension gabapentin 300 mg capsule 300 mg PO BID 01/18/23 04/26/24 History insulin aspart U-100 100 unit/mL 15 unit subcut TIDM 01/18/23 04/26/24 History (3 mL) subcutaneous pen (Novolog FlexPen U-100 Insulin aspart) insulin glargine 100 unit/mL (3 54 unit subcut HS 01/18/23 04/26/24 History mL) subcutaneous pen (Basaglar KwikPen U-100 Insulin) krill oil 1,000 mg-om3 130 mg-dha 1 cap PO QAM 01/18/23 04/26/24 History 40 mg-epa 80 [id number] cap (Krill Oil ([place] 3 and 6)) liraglutide 0.6 mg/0.1 mL (18 mg/3 1.2 mg subcut DAILY PRN FASTING 01/18/23 04/26/24 History mL) subcutaneous pen injector BSG > 150 (Victoza 2-Jayy) lorazepam 0.5 mg tablet 0.5 mg PO Q8H PRN ANXIETY/INSOMNIA 01/18/23 04/26/24 History metformin 850 mg tablet 850 mg PO TIDM 01/18/23 04/26/24 History metoprolol succinate 25 mg 25 mg PO QAM 01/18/23 04/26/24 History tablet,extended release 24 hr rivaroxaban 2.5 mg tablet (Xarelto) 2.5 mg PO BID 01/18/23 04/26/24 History ropinirole 0.5 mg tablet 0.5 mg PO HS 01/18/23 04/26/24 History sertraline 50 mg tablet 100 mg PO QAM 01/18/23 04/26/24 History tramadol 50 mg tablet 50 - 100 mg PO Q6H PRN Pain 01/18/23 04/26/24 History Lactobacillus acidophilus 250 1,000 mmu cells PO DAILY 03/02/23 04/26/24 History million cell capsule (Probiotic Acidophilus) cranberry fruit concentrate 250 mg 250 mg PO DAILY 03/02/23 04/26/24 History chewable tablet (Azo Cranberry) Saccharomyces boulardii 250 mg 250 mg PO BID #20 caps 06/01/23 04/26/24 Rx capsule (Florastor) Past Med/Surg History Problem List Acute hyperglycemia (Acute) Cellulitis (Acute) Sepsis (Acute) Hypomagnesemia Diabetic ulcer of right great toe Demand ischemia Severe sepsis Nocturnal hypoxemia due to emphysema currently using 4L O2 at night Dyslipidemia HTN (hypertension) Morbid obesity due to excess calories COPD (chronic obstructive pulmonary disease) Stenosis of right subclavian artery (Acute) PAD (peripheral artery disease) (Acute) CAD (coronary artery disease) Type 2 diabetes mellitus with diabetic neuropathy Medical History Carotid artery stenosis GERD without esophagitis History of stroke History of nonmelanoma skin cancer Right inguinal hernia Sensorineural hearing loss SVT (supraventricular tachycardia) Urge incontinence Diabetic macular edema Diabetic retinopathy, nonproliferative Surgical History History of cholecystectomy Hx of sinus surgery Status post breast lumpectomy Hx of tubal ligation H/O: hysterectomy H/O cardiac radiofrequency ablation History of right-sided carotid endarterectomy S/P carpal tunnel release S/P femoropopliteal bypass surgery S/P drug eluting coronary stent placement S/P CABG x 3 Family History Other Cancer Diabetes Hypertension Social History Smoking Status: Former smoker Hx Alcohol Use: No Hx Substance Use: No Preferred Language: Bhutanese Communication Ability: Effective Transmission Tester Required: No Beliefs That Will Affect Care: None Current Living Situation: Spouse Feels Safe at Home: Yes Assistive Devices: None and Cane Review of Systems Review of Systems: All systems reviewed & are unremarkable except as noted in HPI & below Physical Exam Constitutional: WD/WN, vitals as above Eyes: PERRL, conjunctivae normal, anicteric sclerae ENMT: external ear and nose normal, oropharynx normal Neck: trachea midline, no thyromegaly Respiratory: normal respiratory effort, lungs clear to auscultation Cardiovascular: RRR, no murmur, no edema (Systolic murmur noted) Gastrointestinal (Abdomen): normal bowel sounds, soft, nontender, no hepatosplenomegaly Musculoskeletal: no cyanosis or clubbing, extremities motor strength 5/5 (Right lower extremity redness/edema) Skin: no rashes, warm and dry Neurologic: PERRL, EOMI, accommodation nl, no face palsy, no dysarthria Psychiatric: A+Ox3, euthymic affect Lymphatic: no cervical or axillary lymphadenopathy Results & Data Results & Data Vital Signs (Past 12 Hours) Vital Signs Temp Pulse Pulse Resp BP BP Pulse Ox 04/26/24 10:31 79 04/26/24 09:58 70 18 91 04/26/24 09:58 79 20 94/68 L 91 04/26/24 09:40 36.3 C L 87 14 91/63 L 96 O2 Del Method 04/26/24 10:31 04/26/24 09:58 Room Air 04/26/24 09:58 Room Air 04/26/24 09:40 Room Air Laboratory Results Laboratory Results WBC 8.32 K/ul (4.8-10.8) 04/26/24 10:15 RBC 5.34 M/uL (4.20-5.40) 04/26/24 10:15 Hgb 13.4 g/dl (12.0-16.0) 04/26/24 10:15 Hct 45.0 % (37.0-47.0) 04/26/24 10:15 MCV 84.3 fL (80.0-100.0) 04/26/24 10:15 MCH 25.1 pg (25.0-34.0) 04/26/24 10:15 MCHC 29.8 g/dL (32.0-36.0) L 04/26/24 10:15 RDW Std Deviation 60.7 fL (36.4-46.3) H 04/26/24 10:15 RDW Coeff of Janice 20.8 % (11.5-14.5) H 04/26/24 10:15 Plt Count 197 K/uL (130-400) 04/26/24 10:15 MPV 10.9 fL (9.4-12.4) 04/26/24 10:15 Immature Gran % (Auto) 0.2 % 04/26/24 10:15 Neut % (Auto) 79.8 % 04/26/24 10:15 Lymph % (Auto) 11.3 % 04/26/24 10:15 Robertson % (Auto) 6.3 % 04/26/24 10:15 Eos % (Auto) 2.0 % 04/26/24 10:15 Baso % (Auto) 0.4 % 04/26/24 10:15 Neut # (Auto) 6.64 K/uL (1.40-6.50) H 04/26/24 10:15 Lymph # (Auto) 0.94 K/uL (1.20-3.40) L 04/26/24 10:15 Robertson # (Auto) 0.52 K/uL (0.11-0.59) 04/26/24 10:15 Eos # (Auto) 0.17 K/uL (0.00-0.50) 04/26/24 10:15 Baso # (Auto) 0.03 K/uL (0.00-0.20) 04/26/24 10:15 Immature Gran # (Auto) 0.02 K/uL (0.01-0.20) 04/26/24 10:15 Polychromasia 1+ 04/26/24 10:15 Anisocytosis Present 04/26/24 10:15 Sodium 135 mmol/L (136-145) L 04/26/24 10:15 Potassium 4.8 mmol/L (3.5-5.1) 04/26/24 10:15 Chloride 99 mmol/L (98-107) 04/26/24 10:15 Carbon Dioxide 30 mmol/L (21-32) 04/26/24 10:15 Anion Gap 6 (3-11) 04/26/24 10:15 BUN 15 mg/dl (6-23) 04/26/24 10:15 Creatinine 0.86 mg/dl (0.6-1.2) 04/26/24 10:15 Est Cr Clr Drug Dosing 89.6 ml/min 04/26/24 10:15 eGFR 73.54 04/26/24 10:15 BUN/Creatinine Ratio 17.4 (10-20) 04/26/24 10:15 Glucose 169 mg/dl (70-99(Fasting)) H 04/26/24 10:15 Calcium 8.7 mg/dl (8.6-10.3) 04/26/24 10:15 Total Bilirubin 0.5 mg/dl (0.2-1.0) 04/26/24 10:15 AST 18 U/L (13-39) 04/26/24 10:15 ALT 13 U/L (7-52) 04/26/24 10:15 Alkaline Phosphatase 99 U/L (34-104) 04/26/24 10:15 Total Protein 6.7 gm/dl (6.0-8.3) 04/26/24 10:15 Albumin 3.6 gm/dl (3.4-5.0) 04/26/24 10:15 Globulin 3.1 gm/dl (2.5-4.0) 04/26/24 10:15 Albumin/Globulin Ratio 1.2 (0.9-2) 04/26/24 10:15 Supervising Physician Co-Signing Physician Notes Patient is a 68-year-old female with history of diabetes mellitus, coronary artery disease, PAD, obesity, COPD and other medical problems presents with history of bilateral lower extremity redness, edema which has been gradually worsening despite completion of 10-day course of doxycycline and Keflex. Patient has history of right lower extremity fem-distal bypass in the past. Patient denies any significant pain. Please review HPI for complete details of presentation. I personally reviewed blood work and imaging studies. Doppler showed short segment severe stenosis or occlusion proximal right femoral artery, occlusion right peroneal artery. Physical Exam: Vitals signs as noted above General Appearance:Obese, no apparent distress Head: normocephalic, Atraumatic Eyes: normal inspection, EOMI Neck: supple, Trachea midline Respiratory/Chest: Normal breath sounds, CTA, No accessory muscle use Cardiovascular: S1, S2, +murmur Abdomen/GI:Soft, Non tender, Bowel sounds present Extremities/Musculoskeletal:normal inspection, R> L LE edema, erythema Neurologic/Psych:AAOX3, grossly no focal neurological deficits Skin: normal color, warm Bilateral lower extremity cellulitis Peripheral artery disease Failed outpatient antibiotic course with doxycycline, Keflex Xarelto held for now, started on IV heparin Started on IV Rocephin, Vanco Check nasal MRSA Vascular surgery consulted IV fluids as needed I personally interviewed and examined the patient at bedside. I have reviewed the advanced practitioner's documentation on the date of service referred in note and agree with plan. Patient's care is coordinated with Guadalupe CARMONA. Please refer to the documentation above for details of patient's presentation and for discussion of other issues. I spent a total of34 minutes coordinating, documenting, and providing care for this patient excluding time spent in the performance of separately billed services or time spent by another provider/QHP. (2) HTN (hypertension) Hypertension type: primary hypertension Qualified Code(s): I10 - Essential (primary) hypertension (3) COPD (chronic obstructive pulmonary disease) COPD type: emphysema Emphysema type: unspecified Qualified Code(s): J43.9 - Emphysema, unspecified (6) CAD (coronary artery disease) Associated angina: without angina Coronary Disease-Associated Artery/Lesion type: [place] artery [place] vs. 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
[2024-04-26] MEDS ORDERED: VANCOMYCIN CONSULT ACTIVE PRN (12:26)
[2024-04-26] MEDS ORDERED: ALBUTEROL HFA 8 GM INHALER INH PRN (12:29)
[2024-04-26] MEDS ORDERED: LORazepam 0.5 MG TAB PO PRN (12:29)
--- NOTE | 2024-04-26 12:39 | Ultrasound Report ---
US arterial duplex LE RT CLINICAL HISTORY: rle pain COMPARISON STUDY: 01/18/2023 FINDINGS: There is severe stenosis or short segment occlusion proximal right common femoral artery. T here is no flow seen in the right peroneal artery, presumed occlusion. No other evidence of arterial occlusion seen at the right lower extremity. IMPRESSION: 1. Short segment severe stenosis or occlusion proximal right common femoral artery. 2. Occlusion of the right peroneal artery. ACT 112: Negative or not required by law. Electronically signed by: Juan Jorge M.D. 04/26/2024 12:37 PM
[2024-04-26] MEDS ORDERED: Heparin IV Adult Wt-Based Standard w/ INITIAL Bolus Protocol IV STA (12:46)
[2024-04-26] MEDS ORDERED: Heparin IV Adult Wt-Based Standard w/ INITIAL Bolus Protocol IV SCH (13:00)
[2024-04-26] MEDS ORDERED: cefTRIAXone SODIUM 2,000 MG/50 ML BAG IV SCH (13:00)
[2024-04-26] MEDS ORDERED: HEPARIN SOD (PORCINE) 1000 UNIT/ML IV ONE (13:02)
[2024-04-26] MEDS: HEPARIN SOD (PORCINE) 1000 UNIT/ML IV STA (13:47)
[2024-04-26] MEDS: HEPARIN 25000 UNIT/500 ML D5W 25,000 UNITS/500 ML BAG IV SCH (13:48)
[2024-04-26] MEDS: VANCOMYCIN HCL 2,500 MG in SODIUM CHLORIDE 0.9% 500 ML IV ONE (14:23)
[2024-04-26] MEDS: cefTRIAXone SODIUM 1,000 MG/50 ML BAG IV SCH (14:28)
--- NOTE | 2024-04-26 14:32 | Pharmacy Report ---
Pharmacy PK ABX Note - Date of Service April 26, 2024 - Assessment and Plan Assessment 68 year old F receiving vancomycin/ceftriaxone for treatment of right lower cellulitis. Patient without improvement following 10 days of doxycycline/cephalexin. Normal WBC, afebrile. History of severe PAD, vascular consulted, R arterial duplex scan showing occlusion of the proximal R common femoral artery and r peroneal artery Plan Vancomycin * Loading dose: 2500 mg IV x 1 * Maintenance dose: 1000 mg IV every 12 hours * Regimen is predicted to achieve target AUC/SRINI of 400-600 mg/L.hr * Random level to be ordered if continued >48 hours Pharmacy will continue to follow and will adjust dose/frequency as necessary. Thank you. Pharmacy has transitioned to AUC monitoring for vancomycin. AUC/SRINI is the preferred PK/PD target and is associated with decreased risk of nephrotoxicity compared to traditional trough targets.
--- OUTSIDE RECORDS SUMMARY | 2024-04-26 14:39 | External Medical Summary | Summary of Care ---
Author Name Unknown Organization [facility] Address [address] [place] [address] Phone [phone] Care Team Providers Care [employer] Supervisor Name Role Phone Jonny Donaldson MD Primary Care Provider + Reason for Visit * Reason Onset Date Comments Adult Annual Wellness Visit, Initial Visit 04/22 Encounter Details Date Type Department Care Team (Late st Contact Info) Description 04/22/2024 1:40 PM [facility] Pharmacy Pharmacy, [address] [place] [id number] [place] [address] Routine general medical examination at a health care facility* Allergies Active Allergy Reactions Criticality Noted Date Comments Cephalexin 01/28/1996 rash Doxepin 02/01/2018 Dust 04/04/2001 Nickel Anaphylaxis High 04/04/2001 Paroxetine 04/28/2003 generic only, brand ok Penicillins 03/03/1995 Rash Sulfa Antibiotics 11/27/1994 Rash documented as of this encounter (statuses as of 04/23/2024) Medications ASPIRIN EC 81 MG PO TBECIndications: Type II or unspecified type diabetes mellitus with renal manifestations, uncontrolled(250 .42) (HCC) Take one pill daily 100 Tab 3 01/29/20 14 Active fluticasone (FLONASE) 50 MCG/ACT nasal spray Administer 2 Sprays into each nostril 2 times a day. 18.2 mL 5 10/14/19 20 Active Ventolin HFA 108 (90 Base) MCG/ACT Inhalation Aerosol SolutionIndicati ons:Cough,Acute bronchitis, complicated Inhale 2 Puffs by mouth every 4 hours as needed for Cough or Wheezing. Strength: 108 (90 Base) MCG/ACT 18 g 5 04/11/19 23 Active Metoprolol Succinate ER 25 MG Oral Tablet Extended Release 24 Hour (toPROL XL)Indications:H TN, goal below 130/80 Take 1 Tablet by mouth in the morning. 90 Tablet 3 06/02/19 23 Active Krill Oil 1000 MG Oral Capsule Take 1 Capsule by mouth in the morning. Active AZO Cranberry 250-30 MG Oral Tablet Take by mouth daily. Active Probiotic Acidophilus Oral Tablet Chewable Take by mouth daily. Active Mupirocin 2 % External Ointment (Bactroban) 02/22/20 23 Active CoQ-10 100 MG Oral Capsule Take by mouth. Ac tive Amitriptyline HCl 50 MG Oral Tablet (Elavil)Indicati ons:Other chest pain,Neuralgia TAKE ONE TABLET BY MOUTH EVERY DAY 90 Tablet 3 07/10/19 24 Active Sertraline HCl 50 MG Oral Tablet (Zoloft)Indicati ons:Generalized anxiety disorder TAKE TWO TABLETS BY MOUTH EVERY MORNING 180 Tablet 3 07/18/19 24 Active Insulin Glargine Solostar 100 UNIT/ML Subcutaneous Solution Pen-injector (Basaglar KwikPen)Indicati ons:Type 2 diabetes mellitus with hemoglobin A1c goal of less than 8.0% (HCC) Inject 35 Units under the skin in the morning and 35 Units before bedtime. 75 mL 3 08/11/19 24 Active NATURAL SUPPLEMENT Take by mouth daily. Balance of nature fruits and veggie capsules Active Fiasp FlexTouch 100 UNIT/ML Subcutaneous Solution Pen-injector (Insulin Aspart (w/Niacinamide)) Indications:Type 2 diabetes mellitus with hemoglobin A1c goal of less than 8.0% (HCC) Inject 26 with breakfast, 14 units with lunch, 20 units with dinner 60 mL 3 10/13/19 24 Active rOPINIRole HCl 0.5 MG Oral Tablet (Requip)Indicati ons:RLS (restless legs syndrome) TAKE ONE TABLET BY MOUTH AT BEDTIME and before naps 180 Tablet 3 10/25/19 24 Active Ezetimibe 10 MG Oral Tablet (Zetia)Indicatio ns:Type 2 diabetes mellitus with hemoglobin A1c goal of less than 8.0% (HCC) Take 1 Tablet by mouth in the morning. 90 Tablet 3 10/25/19 24 Active OneTouch Verio w/Device KitIndications:T ype 2 diabetes mellitus with hemoglobin A1c goal of less than 8.0% (HCC) Use up to 4 times a day E11.9 1 Kit 12/18/19 24 Active OneTouch UltraSoft LancetsIndicatio ns:Type 2 diabetes mellitus with hemoglobin A1c goal of less than 8.0% (HCC) Use as directed 4 times a day as needed for Hypoglycemia (low sugar). 100 Each 2 12/18/19 24 Active OneTouch Verio In Vitro Strip (Glucose Blood)Indication s:Type 2 diabetes mellitus with hemoglobin A1c goal of less than 8.0% (HCC) Use up to 4 times a day E11.9 100 Strip 11 12/18/19 24 Active BD Pen Needle Tanja U/F 32G X 4 MM (Insulin Pen Needle)Indicatio ns:Type 2 diabetes mellitus with hemoglobin A1c goal of less than 8.0% (HCC) USE TO INJECT INSULIN 2-3 times per day 200 Each 3 02/23/20 24 Active Estradiol 0.1 MG/GM Vaginal Cream (Estrace) Apply pea sized amount (0.5 gm) vaginally twice a week at bedtime 42.5 g 03/02/19 25 Active Insulin Lispro (1 Unit Dial) 100 UNIT/ML Subcutaneous Solution Pen-injector (HumaLOG KwikPen)Indicati ons:Type 2 diabetes mellitus with hemoglobin A1c goal of less than 8.0% (HCC) Inject 26 with breakfast, 14 units with lunch, 20 units with dinner or as directed. Substitute for Fiasp until available. 60 mL 1 02/28/19 25 Active LORazepam 0.5 MG Oral Tablet (Ativan)Indicati ons:Anxiety state Take 1 Tablet by mouth every 8 hours as needed for Anxiety or Insomnia. 40 Tablet 03/18/19 25 Active Ketoconazole 2 % External Cream Apply topically to affected area 2 times a day. Apply to belly skin fold until rash improved. 30 g 1 03/18/19 25 Active Gabapentin 600 MG Oral Tablet (Neurontin)Indic ations:Leg cramping,Restles s legs syndrome Take 1 Tablet by mouth in the morning and 1 Tablet at noon and 1 Tablet before bedtime. 90 Tablet 5 03/18/19 25 Active Atorvastatin Calcium 80 MG Oral Tablet (Lipitor)Indicat ions:Dyslipidemi a, goal LDL below 100 Take 1 Tablet by mouth in the morning. 90 Tablet 3 03/25/19 25 Active metFORMIN HCl 850 MG Oral Tablet (Glucophage)Mirtha cations:Type 2 diabetes mellitus with hemoglobin A1c goal of less than 8.0% (HCC) TAKE ONE TABLET BY MOUTH THREE TIMES DAILY WITH MEALS diabetes 270 Tablet 3 03/25/19 25 Active Rivaroxaban 2.5 MG Oral Tablet (Xarelto) Take 1 Tablet by mouth in the morning and 1 Tablet before bedtime. 60 Tablet 11 03/26/19 25 Active Empagliflozin 10 MG Oral Tablet (Jardiance)Indic ations:Type 2 diabetes mellitus with hemoglobin A1c goal of less than 8.0% (HCC) Take 1 Tablet by mouth in the morning. 90 Tablet 3 04/17/19 25 Active Cefuroxime Axetil 500 MG Oral Tablet (Ceftin)Indicati ons:Cellulitis of right leg Take 1 Tablet by mouth in the morning and 1 Tablet before bedtime. Do all this for 10 days. 20 Tablet 04/18/19 25 025 Active Mounjaro 10 MG/0.5ML Subcutaneous Solution Auto-injector (Tirzepatide)Ind ications:Type 2 diabetes mellitus with hemoglobin A1c goal of less than 8.0% (HCC) Inject 10 mg under the skin once a week. Stop ozempic 6 mL 04/22/19 25 026 Active traMADol HCl 50 MG Oral Tablet (Ultram)Indicati ons:Sciatica, unspecified laterality Take 1-2 Tablets by mouth every 6 hours as needed (pain). 60 Tablet 03/18/19 25 025 Discontinu ed(Refill) Doxycycline Hyclate 100 MG Oral Capsule Take 1 Capsule by mouth in the morning and 1 Capsule before bedtime. Do all this for 10 days. Until gone.. 20 Capsule 04/12/19 25 025 Hospital, Clinic, or Other Facility Administered Medication Ordered Dose Route Frequency Start Date End Date Status cefTRIAXone (Rocephin) (350 mg/mL) inj dilution 1,000 mgIndications:Cellulitis of right leg 1000 mg IM Q24H 04/13/2024 Active cefTRIAXone (Rocephin) (350 mg/mL) inj dilution 1,000 mgIndications:Cellulitis of right leg 1000 mg IM Q24H 04/18/2024 Active documented as of this encounter (statuses as of 04/23/2024) Active Problems Problem Noted Date Diagnosed Date Ulcer of toe of right foot 03/05/2024 Bilateral carotid artery stenosis 07/17/2023 Morbid (severe) obesity due to excess calories 1 04/04/2022 Acute lower limb ischemia 01/19/2023 COPD, group A, by GOLD 2017 classification 01/09 Overview: Per COPD GOLD Classification Urge incontinence of urine 11/28/2022 S/P CABG x 3 06/01/2022 Overview (06/14/2022): KUMAR to LAD, SVG to PL of LCx and PDA of the RCA 04/27/[address] Whyte [facility]. History of nonmelanoma skin cancer 05/25/2022 Overview (05/25/2022): SCC L cheek 02/2022 History of completed stroke 04/27/2022 Overview (06/14/2022): Complication of CABG. Left sided weakness. R MCA stroke . 06/06/22 f/u concern for trickle flow -> ER. History of 2019 novel coronavirus disease (COVID -19) 08/10/2021 Overview (08/10/2021): 08/18 Carotid artery stenosis without cerebral infarct ion, left 12/30/2020 Other emphysema 12/06/2020 PAD (peripheral artery disease) 03/04/2020 Carpal tunnel syndrome on right 12/18/2019 Type 2 diabetes mellitus wit h diabetic nephropathy, with long-term current use of insulin 08/21/2019 Diabetic macular edema of both eyes 01/14/2019 Sensorineural hearing loss (SNHL) of both ears 1 04/24/2016 Overview (02/21/2017): 02/12 audiogram Diabetic retinopathy, nonproliferative, moderate 05/27/2014 Overview (05/27/2014): 05/[address] Montez Q6mo monitoring CAD (coronary artery disease) 06/27/2013 Overview (06/27/2013): 06/24/13 +CP-abnormal stress->cath @[facility]. 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 85% Circ (stented RACHAEL), LAD 20%. EF shows inferior hypokinesis EF 45% Stent--Medtronic Resolute INtegrity Zotarolimus stent Circumflex. Heart failure, systolic, due to CAD 06/27/2013 S/P drug eluting coronary stent placement 2013 Inguinal hernia, right 06/27/2013 Overview (06/27/2013): Fat containing DM type 2 causing neurological disease 3 SVT (supraventricular tachycardia) 11/23/2011 Overview (04/25/2012): 04/20/12 AV Ablation-Dr Jeffrey Campos, [facility] Episode June 2011 around 03/12/12 [facility]-P175 SVT--sched for [facility] EP study Routine general medical exam ination at a health care facility 11/11/2011 Overview (03/20/2024): Cards--Dr Jeffrey Campos [facility]. 12/20 TTE Card [facility]-normal EF mild LVH. Mild , mild-mod MR, mild TR, mild CA. Grad 1 DD 03/03/23 TTE [facility] normal EF, moderate LVH. Mild hypokinesis of apical septum. 01/18 Carotid US [facility] stable 50-69 on left. 10/18 colonoscopy [facility] 3 3-5 poly[address] colon-polypoid mucosa mild hyperplastic changes. Rectal polyp= hyperplastic polyp. Dr Juan Mak [facility] (11/19 06/14 Cologuard WNL. Cardiology-eJffrey Jalloh. 12/17 Carotid 50-69% left ICA stenosis. Vielka [...] PFT evidence of COPD ) 05/10 TTE @[facility] Frnuleycib-fdln-augzuy EF, mild LVH, Gr1 Feldman Dys 07/09 colonoscopy [facility] Endoscopy [place]-3 & 6mm polyp--PAth--Tubular adenoma 07/09 [facility] TSH & celiac testing WNL 04/11 ER visit [facility] SVT--resolved with adenosine. 03/11 EKG-scanned QTc 414 12/08 Stress echo-normal except small calc. On aortic valve and Gr I feldman dysfxn 05/08 mammo WNL 08/07 scope 2 polyp vielka 3Y S/P LAURIE 2001-PFTs WNL HTN, goal below 130/80 10/17/2011 Type 2 diabetes mellitus with diabetic nephropat hy 03/09/2011 Overview (06/15/2012): 05/09-start lantus 11/08-a1c 12.8. Restart glipizide, consider insulin. Consider-- iron/ferritin for RLS 05/08 a1c 11, +microalb, start ACEI Hx on byetta, actos/avandia in past LDL 114/TG 291 Dyslipidemia, goal LDL below 100 02/12/2009 Overview (02/12/2009): Per Lipid Taxonomy. Tobacco use disorder 12/02/2008 NONALLERGIC RHINITIS 11/05/2003 Chronic sinusitis 11/05/2003 DYSFUNCT EUSTACHIAN TUBE 12/11/1999 POST-NASAL DRIP 12/11/1999 GENERALIZED ANXIETY DIS Overview (11/11/2011): Conflict with father, family INFORMATION Heartburn LUMBAGO Solitary cyst of breast Type 2 diabetes mellitus wit h hemoglobin A1c goal of less than 8.0% Overview (06/25/2015): ICD-10 update of inactive term documented as of this encounter (statuses as of 04/23/2024) Resolved Problems Problem Noted Date Diagnosed Date Resolved Date Diabetic foot infection 01/19/2023/0 08/2024 Perichondritis of auricle 02/08/2013 Overview (02/08/2013): 02/08 refer ENT HTN, GOAL BELOW 130/80 03/26/200910/19 Overview (03/26/2009): Per HTN Taxonomy. Type 2 diabetes mellitus wit h hemoglobin A1c goal of less than 7.0% 12/25/2008 03/09/2011 Overview (06/23/2015): Per Diabetes Taxonomy. ICD-10 update of inactive term ADVANCE DIRECTIVE INFORMATION 10/18/2004 01/01/2024 Overview (10/18/2004): Yes, Patient instructed to provide copy of advance directive for provider to review and to be scanned into Electronic Medical Record Type 2 diabetes mellitus wit h hemoglobin A1c goal of less than 7.0% 11/17/2000 12/25/2008 Overview (06/23/2015): Per Diabetes Taxonomy. ICD-10 update of inactive term CHRONIC PHARYNGITIS 12/11/1999 11/11/19 12 HTN, goal below 140/90 03/26 Overview (03/26/2009): Per HTN Taxonomy. Dyslipidemia, goal to be determined 02/12/2009 Overview (02/12/2009): Per Lipid Taxonomy. documented as of this encounter (statuses as of 04/23/2024) Immunizations Name Administration Dates Next Due COVID-19 mRNA, LNP-s, No Pre serve, 2-Dose Series ([employer]) 01/24/2021,01/04/2021,06/03/2020 Hepatitis B, 20+ yrs 08/27/2009,03/30/2009,02/27 Pneumococcal Conjugate Vacc, 13 Valent (Prevnar) 01/28/2022 Pneumococcal Polysaccharide PPV23 (Pneumovax) 10/20/2020 Seasonal Influenza Vac., MDV , IM, 0.5 mL (Fluzone) 10/29/2014,01/02/2014,11/26/2012,01/27,12/26/2010,12/21/2009,12/03/19 09,12/30/2005 Seasonal Influenza, High Dos e, Trivalent, PF, IM (Fluzone HD) 11/27/2023 Seasonal Influenza, PF, 6 M & above, IM , (FluLaval or Fluzone) 11/27/2019,11/01/2018,12/15/2017,10/29 Seasonal Influenza, Quadriva lent Hd (Fluzone Hd) 12/16/2022,12/09/2021,11/10/2020 Seasonal Influenza, Quadriva lent, No Preserve, IM 11/16/2015 TDAP (age 10 and older)(Boostrix) 04/27/2018 TDAP, Age 7 and older, IM (Adacel) 08/28/2008 Varicella Zoster Vaccine (Adult) 08/06/2015 Zoster Vaccine Recombinant (Shingrix) 08/21/2019 ,05/09/2019 07/18/2019 documented as of this encounter Social History Tobacco Use Types Packs/Day Years Used Date Smoking Tobacco: Former Cigarettes 0.9 40 1 - 12/08/2021 Smokeless Tobacco: Never Comments:10/04/2019 smokes 15 cigarettes per day on booklet and patches Alcohol Use Standard Drinks/Week Comments Yes 0 (1 standard drink = 0.6 oz pur e alcohol) very rare PHQ-2 Answer Date Recorded PHQ Adult Total Score 0 04/22/2024 Hunger Vital Sign Answer Date Recorded Within the past 12 months, y ou worried that your food would run out before you got the money to buy more. Never true 12/17/19 23 Within the past 12 months, t he food you bought just didn't last and you didn't have money to get more. Never true 12/16/2022 Personal Safety Answer Date Recorded Do you feel unsafe or have concerns for your saf ety? No 01/19/2023 Do you have concerns for you r family's safety? (Household - for ages 0-17 years) Not on file 01/19/2023 Utilities Answer Date Recorded Do you have trouble paying y our heating, water, or electric bill? No 01/19/2023 Is your family able to pay t he heat, water, or electric bill? (Household - for ages 0-17 years) Not on file 01/19/2023 Does your family have access to good internet? (Household - for ages 0-17 years) Not on file 01/19/2023 Transportation Needs Answer Date Record ed READ ONLY Do you have troubl e getting a ride to medical visits or work? Never True 01/19/2023 Does your family have a hard time getting a ride to doctors visits? (Household - for ages 0-17 years) Not on file 01/19/2023 Has lack of transportation k ept you from medical appointments, meetings, work, or from getting things needed for daily living? Check all that apply. (Adult - for ages 18 years and over) Not on file 01/19/2023 Do you (or your family) have trouble finding or paying for a ride (transportation)? (Household - for ages 0-17 years) Not on file 01/19/2023 Housing Stability Answer Date Recorded Do you currently live in a s helter or have no steady place to sleep at night? (Adult - for ages 18 years and over) Not on file 01/19/2023 READ ONLY Do you think you a re at risk of becoming homeless? No 01/19/2023 Does your family worry about paying for your home or becoming homeless? (Household - for ages 0-17 years) Not on file 1 03/21/2022 Are you homeless or worried that you might be in the future? (Adult - for ages 18 years and over) Not on file Are you (or your family) lawrence eless or worried that you might be in the future? (Household - for ages 0-17 years) Not on file Food Insecurity Answer Date Recorded Do you need food for this week? No 01/19/2023 Are you able to get enough f ood for your family? (Household - for ages 0-17 years) Not on file 01/19/2023 Does your family need food t his week? (Household - for ages 0-17 years) Not on file 01/19/2023 Do you always have enough fo od for your family? (Household - for ages 0-17 years) Not on file 01/19/2023 Comments No Sex and Gender Information Value Date Recorded Sex Assigned at Female 05/09/2019 8:57 AM EDT Legal Sex Female 5:15 AM EST Gender Identity Female 05/09/2019 8:57 AM EDT Sexual Orientation Straight 05/09/2019 8: 57 AM EDT Occupation Industry Job Start Date Job End Date retired. Not on file Not on file Not on file documented as of this encounter Last Filed Vital Signs Vital Sign Reading Time Taken Comments Blood Pressure 124/80 04/23/2024 7:22 AM EST Pulse - - Temperature - - Respiratory Rate - - Oxygen Saturation - - Inhaled Oxygen Concentration - - Weight 117.5 kg (259 lb) 04/23/2024 7:22 AM EST Height 177.8 cm (5' 10") 04/23/2024 7:22 AM EST Body Mass Index 37.16 04/23/2024 7:22 AM EST documented in this encounter Functional Status * Are you deaf or do you have serious difficulty hearing? Answer Date of Assessment Author No 01/19/2023 12:56 AM Michela Robertson RN * Are you blind or do you have serious difficulty seeing, even when wearing glasses? Answer Date of Assessment Author No 01/19/2023 12:56 AM Michela Robertson RN * Do you have serious difficulty walking or climbing stairs? (5 years old or older) Answer Date of Assessment Author Yes 01/19/2023 12:56 AM Michela Robertson RN * Do you have difficulty dressing or bathing? (5 years old or older) Answer Date of Assessment Author No 01/19/2023 12:56 AM Michela Robertson RN * Because of a physical, mental, or emotional condition, do you have difficulty doing errands alone such as visiting a doctors office or shopping? (15 years old or older) Answer Date of Assessment Author Yes 01/19/2023 12:56 AM Michela Robertson RN documented as of this encounter Mental Status * Because of a physical, mental, or emotional condition, do you have serious difficulty concentrating, remembering, or making decisions? (5 years old or older) Answer Entry Date Author No 01/19/2023 12:56 AM Michela Robertson RN documented in this encounter Patient Instructions * Patient Instructions* Zari Sales, [facility] - 04/22/2024 2:37 PM EST Hi Ms. Liao, As your primary care physician, I know that regular visits with my patients who have several chronic conditions can go a long way in helping you stay healthy. Many times, the clinic team and I are in touch with you and/or other care team members between office visits to adjust medications, discuss any changes in your health, and review our care plan to make sure it is still meeting your needs. I am dedicated to helping you take a more active role in your overall care. It is important that there are resources available to you, so I created a personalized plan of care with a Health Calendar for you, which is included on the next page of this letter. Below is a list that summarizes your electronic health record: Health Maintenance Due: Health Maintenance Due Topic Date Due Alpha-1 Antitrypsin Never done Adult Wellness Visit Never done DXA Scan 08/01/2021 COVID-19 Vaccine ( season) 2023 Diabetic Foot Exam 12/17/2023 Depression Screening 12/17/2023 Current Medication List: (as of 04/22/2024 (in office), Visit date not found (telemedicine) ) Current Outpatient Medications Medication Sig Dispense Refill ASPIRIN EC 81 MG PO TBEC Take one pill daily 100 Tab 3 fluticasone (FLONASE) 50 MCG/ACT nasal spray Administer 2 Sprays into each nostril 2 times a day. 18.2 mL 5 Ventolin HFA 108 (90 Base) MCG/ACT Inhalation Aerosol Solution Inhale 2 Puffs by mouth every 4 hours as needed for Cough or Wheezing. Strength: 108 (90 Base) MCG/ACT 18 g 5 Metoprolol Succinate ER 25 MG Oral Tablet Extended Release 24 Hour (toPROL XL) Take 1 Tablet bymouth in the morning. 90 Tablet 3 Krill Oil 1000 MG Oral Capsule Take 1 Capsule by mouth in the morning. AZO Cranberry 250-30 MG Oral Tablet Take by mouth daily. Probiotic Acidophilus Oral Tablet Chewable Take by mouth daily. Mupirocin 2 % External Ointment (Bactroban) CoQ-10 100 MG Oral Capsule Take by mouth. Amitriptyline HCl 50 MG Oral Tablet (Elavil) TAKE ONE TABLET BY MOUTH EVERY DAY 90 Tablet 3 Sertraline HCl 50 MG Oral Tablet (Zoloft) TAKE TWO TABLETS BY MOUTH EVERY MORNING 180 Tablet 3 Insulin Glargine Solostar 100 UNIT/ML Subcutaneous Solution Pen-injector (Basaglar KwikPen) Inject 35 Units under the skin in the morning and 35 Units before bedtime. 75 mL 3 NATURAL SUPPLEMENT Take by mouth daily. Balance of nature fruits and veggie capsules Fiasp FlexTouch 100 UNIT/ML Subcutaneous Solution Pen-injector (Insulin Aspart (w/Niacinamide))Inject 26 with breakfast, 14 units with lunch, 20 units with dinner 60 mL 3 rOPINIRole HCl 0.5 MG Oral Tablet (Requip) TAKE ONE TABLET BY MOUTH AT BEDTIME and before naps 180 Tablet 3 Ezetimibe 10 MG Oral Tablet (Zetia) Take 1 Tablet by mouth in the morning. 90 Tablet 3 OneTouch Verio w/Device Kit Use up to 4 times a day E11.9 1 Kit 0 OneTouch UltraSoft Lancets Use as directed 4 times a day as needed for Hypoglycemia (low sugar). 100 Each 2 OneTouch Verio In Vitro Strip (Glucose Blood) Use up to 4 times a day E11.9 100 Strip 11 BD Pen Needle Tanja U/F 32G X 4 MM (Insulin Pen Needle) USE TO INJECT INSULIN 2-3 times per day 200 Each 3 Estradiol 0.1 MG/GM Vaginal Cream (Estrace) Apply pea sized amount (0.5 gm) vaginally twice a week at bedtime 42.5 g 0 Insulin Lispro (1 Unit Dial) 100 UNIT/ML Subcutaneous Solution Pen-injector (HumaLOG KwikPen) Inject 26 with breakfast, 14 units with lunch, 20 units with dinner or as directed. Substitute for Fiasp until available. 60 mL 1 LORazepam 0.5 MG Oral Tablet (Ativan) Take 1 Tablet by mouth every 8 hours as needed for Anxiety or Insomnia. 40 Tablet 0 traMADol HCl 50 MG Oral Tablet (Ultram) Take 1-2 Tablets by mouth every 6 hours as needed (pain). 60 Tablet 0 Ketoconazole 2 % External Cream Apply topically to affected area 2 times a day. Apply to belly skin fold until rash improved. 30 g 1 Gabapentin 600 MG Oral Tablet (Neurontin) Take 1 Tablet by mouth in the morning and 1 Tablet atnoon and 1 Tablet before bedtime. 90 Tablet 5 Atorvastatin Calcium 80 MG Oral Tablet (Lipitor) Take 1 Tablet by mouth in the morning. 90 Tablet 3 metFORMIN HCl 850 MG Oral Tablet (Glucophage) TAKE ONE TABLET BY MOUTH THREE TIMES DAILY WITH MEALS diabetes 270 Tablet 3 Rivaroxaban 2.5 MG Oral Tablet (Xarelto) Take 1 Tablet by mouth in the morning and 1 Tablet before bedtime. 60 Tablet 11 Doxycycline Hyclate 100 MG Oral Capsule Take 1 Capsule by mouth in the morning and 1 Capsule before bedtime. Do all this for 10 days. Until gone.. 20 Capsule 0 Empagliflozin 10 MG Oral Tablet (Jardiance) Take 1 Tablet by mouth in the morning. 90 Tablet 3 Cefuroxime Axetil 500 MG Oral Tablet (Ceftin) Take 1 Tablet by mouth in the morning and 1 Tablet before bedtime. Do all this for 10 days. 20 Tablet 0 Mounjaro 10 MG/0.5ML Subcutaneous Solution Auto-injector (Tirzepatide) Inject 10 mg under the skin once a week. Stop ozempic 6 mL 0 Current Facility-Administered Medications Medication Dose Route Frequency Provider Last Rate Last Admin cefTRIAXone (Rocephin) (350 mg/mL) inj dilution 1,000 mg 1 g Intramuscular Q24H 1,000 mg at 04/18/24 1306 cefTRIAXone (Rocephin) (350 mg/mL) inj dilution 1,000 mg 1 g Intramuscular Q24H Current List of Allergies: (as of 04/22/2024 (in office), Visit date not found (telemedicine) ) Review of patient's allergies indicates: Allergen Reactions Nickel Anaphylaxis Cephalexin rash Doxepin Dust Paroxetine generic only, brand ok Penicillins Rash Sulfa Antibiotics Rash Most Recent Lab Results: Results for orders placed or performed in visit on 04/18/24 BNP, NT-PRO Result Value Ref Range BNP, NT-Pro 1,895 (H) <300 pg/mL COMPREHENSIVE METABOLIC PANEL Result Value Ref Range BUN 17 6 - 20 mg/dL CREATININE 0.9 0.5 - 1.0 mg/dL EGFR 74 >=60 mL/min SODIUM 139 135 - 146 mmol/L POTASSIUM 5.4 (H) 3.5 - 5.1 mmol/L CHLORIDE 97 (L) 98 - 107 mmol/L CO2 28 22 - 32 mmol/L ANION GAP 14 7 - 15 mmol/L GLUCOSE 139 (H) 70 - 120 mg/dL Albumin 3.8 3.8 - 5.0 g/dL AST 22 10 - 35 U/L Alkaline Phosphatase 139 (H) 35 - 130 U/L Bilirubin, Total 0.4 <=1.2 mg/dL CALCIUM 9.1 8.4 - 10.2 mg/dL Protein 6.6 6.0 - 8.3 g/dL ALT 24 10 - 35 U/L D-DIMER Result Value Ref Range D-Dimer 0.30 <0.50 ug/mL FEU *Note: Due to a large number of results and/or encounters for the requested time period, some results have not been displayed. A complete set of results can be found in Results Review. Sincerely, Jonny Donaldson MD 04/22/2024 [facility]'s Health Calendar (as of 04/22/2024 (in office), Visit date not found (telemedicine) ) Care needs Care needs Last completed Due next Alpha-1 Antitrypsin --- Never done Adult Wellness Visit --- Never done Bone Density 08/01/2016 08/01/2021 COVID-19 Vaccine ( season) 2021 10/29/2023 Diabetic Foot Exam 12/16/2022 12/17/2023 Yearly COPD oxygen test 06/09/2023 06/08/2024 A1C blood sugar test 02/26/2024 08/26/2024 Mammogram 09/13/2023 09/12/2024 Diabetic Eye Exam 01/24/2024 01/23/2025 Urine albumin/creatinine test 02/26/2024 02/25/2025 Yearly B-12 vitamin test 02/26/2024 02/25/2025 Kidney Function Test 04/18/2024 04/18/2025 Diphtheria, tetanus & pertussis vaccines (3 - Td or Tdap) 04/27/2018 04/27/2028 As you look over the recommended services, be sure to check with your insurance company to determine what's covered. [employer] is a great tool that helps you review your medical record online, including test results, doctor notes and your health summary. You can also schedule appointments with me and other members of your care team, request prescription refills and ask for advice related to your medical conditions at [email or web address]. documented in this encounter Progress Notes * Zari Sales RPh - 04/22/2024 1:42 PM EST I had the privilege of seeing Mariia Liao for an Annual Wellness Visit today. Care Gaps and Best Practices were addressed as appropriate I reviewed health maintenance items and preventative health recommendations. Patient required education/intervention regarding fall risk reduction. Appropriate handouts were given. All other screenings and interventions are noted below. Adult Annual Wellness Visit: Mariia Liao is a 68 year old female who presents for an Adult Annual Wellness Visit. Depression Screening: Did the patient complete the screening questionnaire for Depression? Yes Is the patient's total score for Depression 15 or greater? No, no further intervention needed, unless requested by patient. Did the patient answer positively to the suicide question? No, no further intervention needed, unless requested by patient. In general, compared to other people your age, what would you say that your health is? Very Good Ht Readings from Last 1 Encounters: 04/23/24 1.778 m (5' 10") Wt Readings from Last 1 Encounters: 04/23/24 117.5 kg (259 lb) Body Mass Index: BMI Greater than 30 Body mass index is 37.16 kg/m. BP Readings from Last 1 Encounters: 04/23/24 124/80 Medical/Surgical/Family History Reviewed: Yes Past Medical History: Diagnosis Date Allergic rhinitis Background diabetic retinopathy(362.01) 05/27/201405/[address] Montez Q6mo monitoring Benign neoplasm of colon 07/30/2010 polyps x 2--adenomatous tissue--repeat in 3 yrs , diverticulosis & fair prep-- CAD (coronary artery disease) 06/27/2013 4/28/14 +CP-abnormal stress->cath [facility]. 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 85% Circ (stented RACHAEL), LAD 20%. EF shows inferior hypokinesis EF 45% Carotid artery stenosis without cerebral infarction, left 12/30/2020 Chronic sinusitis 06/07/2001 Diabetic macular edema of both eyes ([facility]) 01/14/2019 DM type 2, goal A1C 7-8 DM type 2, goal A1c below 7 1998 Dyslipidemia, goal to be determined Generalized anxiety disorder Heart failure, systolic, due to CAD ([facility]) 06/27/2013 Heartburn History of 2019 novel coronavirus disease (COVID-19) 08/10/202108/18 History of completed stroke 04/27/2022 Complication of CABG. Left sided weakness. HTN, goal below 140/90 INFORMATION seasonal affective disorder Inguinal hernia, right 06/27/2013 Fat containing Lumbago Moderate nonproliferative diabetic retinopathy of right eye with macular edema associated with type2 diabetes mellitus ([facility]) 05/31/2021 Open wound of trunk 05/2008 s/p LAURIE Pneumonia, organism unspecified(486) 11/1992 Proliferative diabetic retinopathy of left eye without macular edema associated with type 2 diabetes mellitus ([facility]) 05/31/2021 S/P CABG x 3 06/01/2022 S/P drug eluting coronary stent placement 06/27/2013 Sensorineural hearing loss (SNHL) of both ears 02/21/2017 Solitary cyst of breast 1992 Past Surgical History: Procedure Laterality Date ABLATE HEART DYSRHYTHM FOCUS 04/20/2012 AV Ablation-Dr Jeffrey Campos, [facility] BREAST LESION,OTHER,EXCISION Left benign BYPASS GRFT OTHER-CAROTID Right 05/02/[address] Oshea [facility] CARDIAC CATH SCANNED RESULT 06/24/2013 +Circ stent RACHAEL. CARPAL TUNNEL SURGERY 08/1992 Carpal Tunnel repair CARPAL TUNNEL SURGERY Left 12/11/2019 NEUROPLASTY MEDIAN NERVE AT CARPAL TUNNEL performed by Pankaj Osorio MD at OR [facility] COLONOSCOPY W/ LESION REMOVAL, SNARE 07/30/2010 polyps x 2--adenomatous tissue--repeat in 3 yrs , diverticulosis & fair prep-- COLONOSCOPY, DIAGNOSTIC (RECTUM) 10/02/2015 adenomatous polyps, diverticulosis, poor prep, repeat 1 yr/[facility] ENDART DEEP FEMORAL Right 01/19/2023 DEEP FEMORAL ENDARTERECTOMY performed by Willian Rosas MD at OR [facility] EXPLORATION OF MAXILLARY SINUS 06/07/2001 Sinus Surgery HYSTEROSCOPY W/BIOPSY AND/OR POLYPECTOMY W/WO D&C 02/14/2006 INFORMATION ablation INSERT NEEDLE/CATHETER, EXTREMITY ARTERY Right 06/09/2023 CATHETER INTRODUCTION, EXTREMITY ARTERY performed by Willian Rosas MD at OR [facility] INTRODUCTION OF CATHETER, AORTA 01/19/2023 CATHETER PLACEMENT, AORTA performed by Willian Rosas MD at OR [facility] IR ARTERIOGRAM EXTREMITY UNILATERAL Right 06/09/2023 IMAGING SUPERVISION & INTERPRETATION EXTREMITY UNILATERAL performed by Willian Rosas [facility] OR [facility] LAP;OCCULSION OVIDUCTS/DEVICE 1985 LIGATE/CUT OVIDUCT(S) tubal ligation -rings CA CORONARY ARTERY BYP W/VEIN & ARTERY GRAFT 3 VEIN 04/27/2022 KUMAR to LAD, SVG to PL of LCx and PDA of the RCA 04/27/[address] Whyte [facility]. PULMONARY FUNCTION TEST SCREEN 10/09/2001 normal REMOVE GALLBLADDER 04/1993 Cholecystectomy REPAIR OF NASAL SEPTUM 06/07/2001 Nasal Septum Repair SUBQ DEBRIDEMENT, FIRST 20 CM2 Right 06/09/2023 DEBRIDEMENT SKIN AND SUBCUTANEOUS TISSUE performed by Willian Rosas MD at OR [facility] SURGICAL PROCEDURE ONLY Left 08/24/2023 Remove a cyst on left chest wall by Dr. Darnell Curiel. SYNTH BYPASS, FEMORAL-POP Right 01/19/2023 BYPASS GRAFT OTHER THAN VEIN FEMORAL POPLITEAL performed by Willian Rosas MD at OR [facility] TOTAL ABD HYSTERECTOMY W/WO REMOVAL OF TUBE(S) 06/23/2008 & oopherectomy VAGINAL DELIVERY ONLY VENOGRAM EXTREMITY UNI-FLUOR Right 01/19/2023 IMAGING SUPERVISION & INTERPRETATION EXTREMITY VEIN performed by Wlilian Rosas MD at [facility] Family History Problem Relation Name Age of Onset Hypertension Mother Arthritis Mother Diabetes Father diet controlled Diabetes Sister Hypertension Sister Other (uticaria) Sister Cancer Grandfather (Paternal) gi cancer- Cancer Grandmother (Paternal) leukemia Other (anxiety) Grandmother (Paternal) Other (hyperlidemia) Sister Eye Problems Brother glaucoma No Past Hx Brother No Past Hx Daughter Allergies Sister hives Asthma Aunt (Unspecified) Has patient ever had cancer? History of cancer, type: skin and location: L cheek; removed. Patient did not undergo treatment Social History Tobacco Use Smoking status: Former Current packs/day: 0.00 Average packs/day: 0.9 packs/day for 40.0 years (36.0 ttl pk-yrs) Types: Cigarettes Start date: 12/08/1981 Quit date: 12/08/2021 Years since quittin.3 Smokeless tobacco: Never Tobacco comments: 10/04/2019 smokes 15 cigarettes per day on booklet and patches Substance Use Topics Alcohol use: Yes Comment: very rare Vaping/E-Cigarette Use Vaping/E-Cigarette Use Never User Vaping/E-Cigarette Substances Vaping/E-Cigarette Devices Tobacco/Alcohol screening completed today? Yes Hospital Care: Admissions (within the last year): Hospital, for an outpatient surgery ER within 30 days: No Does the patient have an Advance Directives/Living Will? Yes Last Physical Exam: Last physical exam: 04/19/24 Does patient see primary provider regularly? Yes Does patient see other providers? Yes, Specialist Patient Care Team updated? Yes Review of patient's allergies indicates: Allergen Reactions Nickel Anaphylaxis Cephalexin rash Doxepin Dust Paroxetine generic only, brand ok Penicillins Rash Sulfa Antibiotics Rash Immunization History Administered Date(s) Administered COVID-19 mRNA, LNP-s, No Preserve, 2-Dose Series ([employer]) 05/13/2020, 06/03/2020, 01/04/2021, 01/24/2021 Hepatitis B, 20+ yrs 02/27/2009, 03/30/2009, 08/27/2009 Pneumococcal Conjugate Vacc, 13 Valent (Prevnar) 01/28/2022 Pneumococcal Polysaccharide PPV23 (Pneumovax) 11/15/1994, 10/20/2020 Seasonal Influenza Vac., MDV, IM, 0.5 mL (Fluzone) 02/27/1993, 11/27/1994, 12/30/2005, 12/02/2008, 12/21/2009, 12/26/2010, 02/10/2012, 11/26/2012, 01/02/2014, 10/29/2014 Seasonal Influenza, High Dose, Trivalent, PF, IM (Fluzone HD) 11/27/2023 Seasonal Influenza, PF, 6 M & above, IM , (FluLaval or Fluzone) 11/16/2016, 12/15/2017, 11/01/2018, 11/27/2019 Seasonal Influenza, Quadrivalent Hd (Fluzone Hd) 11/10/2020, 12/09/2021, 12/16/2022 Seasonal Influenza, Quadrivalent, No Preserve, IM 11/16/2015 TD - Tetanus/Diptheria (ADULT) 11/22/1994 TDAP (age 10 and older)(Boostrix) 04/27/2018 TDAP, Age 7 and older, IM (Adacel) 08/28/2008 Varicella Zoster Vaccine (Adult) 08/06/2015 Zoster Vaccine Recombinant (Shingrix) 05/09/2019, 08/21/2019 Current Outpatient Medications Medication Sig Dispense Refill ASPIRIN EC 81 MG PO TBEC Take one pill daily 100 Tab 3 fluticasone (FLONASE) 50 MCG/ACT nasal spray Administer 2 Sprays into each nostril 2 times a day. 18.2 mL 5 Ventolin HFA 108 (90 Base) MCG/ACT Inhalation Aerosol Solution Inhale 2 Puffs by mouth every 4 hours as needed for Cough or Wheezing. Strength: 108 (90 Base) MCG/ACT 18 g 5 Metoprolol Succinate ER 25 MG Oral Tablet Extended Release 24 Hour (toPROL XL) Take 1 Tablet by mouth in the morning. 90 Tablet 3 Krill Oil 1000 MG Oral Capsule Take 1 Capsule by mouth in the morning. AZO Cranberry 250-30 MG Oral Tablet Take by mouth daily. Probiotic Acidophilus Oral Tablet Chewable Take by mouth daily. Mupirocin 2 % External Ointment (Bactroban) CoQ-10 100 MG Oral Capsule Take by mouth. Amitriptyline HCl 50 MG Oral Tablet (Elavil) TAKE ONE TABLET BY MOUTH EVERY DAY 90 Tablet 3 Sertraline HCl 50 MG Oral Tablet (Zoloft) TAKE TWO TABLETS BY MOUTH EVERY MORNING 180 Tablet 3 Insulin Glargine Solostar 100 UNIT/ML Subcutaneous Solution Pen-injector (Basaglar KwikPen) Inject 35 Units under the skin in the morning and 35 Units before bedtime. 75 mL 3 NATURAL SUPPLEMENT Take by mouth daily. Balance of nature fruits and veggie capsules Fiasp FlexTouch 100 UNIT/ML Subcutaneous Solution Pen-injector (Insulin Aspart (w/Niacinamide)) Inject 26 with breakfast, 14 units with lunch, 20 units with dinner 60 mL 3 rOPINIRole HCl 0.5 MG Oral Tablet (Requip) TAKE ONE TABLET BY MOUTH AT BEDTIME and before naps 180 Tablet 3 Ezetimibe 10 MG Oral Tablet (Zetia) Take 1 Tablet by mouth in the morning. 90 Tablet 3 OneTouch Verio w/Device Kit Use up to 4 times a day E11.9 1 Kit 0 OneTouch UltraSoft Lancets Use as directed 4 times a day as needed for Hypoglycemia (low sugar). 100 Each 2 OneTouch Verio In Vitro Strip (Glucose Blood) Use up to 4 times a day E11.9 100 Strip 11 BD Pen Needle Tanja U/F 32G X 4 MM (Insulin Pen Needle) USE TO INJECT INSULIN 2-3 times per day 200 Each 3 Estradiol 0.1 MG/GM Vaginal Cream (Estrace) Apply pea sized amount (0.5 gm) vaginally twice a week at bedtime 42.5 g 0 Insulin Lispro (1 Unit Dial) 100 UNIT/ML Subcutaneous Solution Pen-injector (HumaLOG KwikPen) Inject 26 with breakfast, 14 units with lunch, 20 units with dinner or as directed. Substitute for Fiasp until available. 60 mL 1 LORazepam 0.5 MG Oral Tablet (Ativan) Take 1 Tablet by mouth every 8 hours as needed for Anxiety orInsomnia. 40 Tablet 0 Ketoconazole 2 % External Cream Apply topically to affected area 2 times a day. Apply to belly skinfold until rash improved. 30 g 1 Gabapentin 600 MG Oral Tablet (Neurontin) Take 1 Tablet by mouth in the morning and 1 Tablet at noon and 1 Tablet before bedtime. 90 Tablet 5 Atorvastatin Calcium 80 MG Oral Tablet (Lipitor) Take 1 Tablet by mouth in the morning. 90 Tablet 3 metFORMIN HCl 850 MG Oral Tablet (Glucophage) TAKE ONE TABLET BY MOUTH THREE TIMES DAILY WITH MEALSdiabetes 270 Tablet 3 Rivaroxaban 2.5 MG Oral Tablet (Xarelto) Take 1 Tablet by mouth in the morning and 1 Tablet before bedtime. 60 Tablet 11 Empagliflozin 10 MG Oral Tablet (Jardiance) Take 1 Tablet by mouth in the morning. 90 Tablet 3 Cefuroxime Axetil 500 MG Oral Tablet (Ceftin) Take 1 Tablet by mouth in the morning and 1 Tablet before bedtime. Do all this for 10 days. 20 Tablet 0 traMADol HCl 50 MG Oral Tablet (Ultram) Take 1-2 Tablets by mouth every 6 hours as needed (pain). 60 Tablet 0 Mounjaro 10 MG/0.5ML Subcutaneous Solution Auto-injector (Tirzepatide) Inject 10 mg under the skin once a week. Stop ozempic 6 mL 0 Current Facility-Administered Medications Medication Dose Route Frequency Provider Last Rate Last Admin cefTRIAXone (Rocephin) (350 mg/mL) inj dilution 1,000 mg 1 g Intramuscular Q24H 1,000 mg at 04/18/24 1306 cefTRIAXone (Rocephin) (350 mg/mL) inj dilution 1,000 mg 1 g Intramuscular Q24H Patient Active Problem List Diagnosis DYSFUNCT EUSTACHIAN TUBE POST-NASAL DRIP NONALLERGIC RHINITIS Chronic sinusitis GENERALIZED ANXIETY DIS INFORMATION Heartburn LUMBAGO Solitary cyst of breast Tobacco use disorder Dyslipidemia, goal LDL below 100 Type 2 diabetes mellitus with diabetic nephropathy ([facility]) HTN, goal below 130/80 Routine general medical examination at a [facility] facility SVT (supraventricular tachycardia) ([facility]) Type 2 diabetes mellitus with hemoglobin A1c goal of less than 8.0% ([facility]) DM type 2 causing neurological disease ([facility]) CAD (coronary artery disease) Heart failure, systolic, due to CAD ([facility]) S/P drug eluting coronary stent placement Inguinal hernia, right Diabetic retinopathy, nonproliferative, moderate ([facility]) Sensorineural hearing loss (SNHL) of both ears Diabetic macular edema of both eyes ([facility]) Type 2 diabetes mellitus with diabetic nephropathy, with long-term current use of insulin ([facility]) Carpal tunnel syndrome on right PAD (peripheral artery disease) ([facility]) Other emphysema ([facility]) Carotid artery stenosis without cerebral infarction, left History of 2019 novel coronavirus disease (COVID-19) History of nonmelanoma skin cancer S/P CABG x 3 History of completed stroke Urge incontinence of urine COPD, group A, by GOLD 2017 classification ([facility]) Acute lower limb ischemia Morbid (severe) obesity due to excess calories ([facility]) Bilateral carotid artery stenosis Ulcer of toe of right foot ([facility]) Medication Compliance: Patient is able to obtain all of her medications? Yes Patient takes medications as prescribed? Yes Patient manages own medications: Yes Patient uses a pill box? Yes, refill(s) completed by self Dental Exam: No Eye Screening: Yes: Every 6 month Are you having trouble with hearing? No Do you use an assistive device to help your hearing? No Exercise Screening: exercises 1-2 times per week w/ PT Nutrition Assessment: Eats three meals a day Pain Screening: Are you having any pain? Yes. Pain Scale: 6 out of 10; Location: leg and hip, When: daily, Duration: daily for hip; leg has been since she has cellulitis,Aggravating Factors: overuse, Relieved by: tramadol Sleep Screening Tool 'STOP': pt notes she was told she has sleep apnea before but has no interest in doing a sleep study or wearing a CPAP Do you snore? Do you feel fatigued during the day? Do you wake up feeling like you haven't slept? Have you been told you stop breathing at night? Do you gasp for air or choke while sleeping? Have you been told you have Sleep Apnea? Yes Do you have high blood pressure or are on medication(s) to control high blood pressure? Yes SCORE: If you check YES to two or more questions, make a referral for Obstructive Sleep Apnea Patient and Caregiver Support System: Patient lives with a spouse and their daughter Means of Transportation: Family transports Patient lives in Two Story - How many stairs: 13; patient doesn't go up and down them Community Resources: none Functional Status and ADL Skills: Has patient ever had an amputation? No Functional Assessment: 60- Requires occasional assistance but is able to care for needs Ambulation: Patient ambulates with assistive device. Cane, Wheelchair, and Motorized Wheelchair Dressing: Gets clothes and dresses without any assistance: Independent Except For Tying Shoes Able to move freely in chair or bed including turning over: Independent Repositioning (bed or chair): Not applicable Transfers: Independent Toileting: Goes to bathroom, uses toilet, arranges clothes and returns without any assistance: Independent Toileting: continent of bladder and continent of bowel Feeding: Self Bathing: Self; Shower Chair Requires minimal assistance with ADLs. Instrumental ADL's: Shopping: Moderate Assistance Housekeeping: Moderate Assistance Handling Finances: Independent DME Vendor Name: [employer] for oxygen at night; [place] for [employer] G7 sensors Fall Risk Assessment: Fall Risk Assessment Questionnaire & Timed Up and Go Test (TUG) None Can the patient demonstrate that she can stand from a sitting position? Yes Has the patient had a fall within the last 6 months? Yes Does the patient have a problem with her gait or balance? Yes Does the patient take 4 or more prescription medicines? Yes Does the patient use sedatives or narcotics? Yes Fall Risk Factors Present: Uses more than 4 medications Uses sedatives or narcotics Uses assistive devices Balance or gait disturbances Lower extremity weakness Tgt-Rk-jrz-Go Test: Ubm-Jq-bdf-Go Test completed? No, non-ambulatory Gender Specific Preventative Plan: Health Maintenance Topic Date Due Alpha-1 Antitrypsin Never done DXA Scan 08/01/2021 COVID-19 Vaccine () 10/29/2023 Diabetic Foot Exam 12/17/2023 O2 ASSESSMENT COMPLETED IN PAST YEAR FOR COPD 06/08/2024 HbA1c 08/26/2024 Mammogram 09/12/2024 Diabetic Eye Exam 01/23/2025 Albumin/Creatinine Ratio 02/25/2025 B-12 02/25/2025 GFR 04/18/2025 Depression Screening 04/22/2025 Adult Wellness Visit 04/22/2025 DTap/Tdap Vaccines (3 - Td or Tdap) 04/27/2028 Hepatitis B Vaccine Completed Influenza Vaccine (FLU shot) Completed Lung Cancer Screening Completed Hepatitis C Screening Completed Zoster Vaccines Completed Pneumococcal Vaccine: 50+ Years Completed MENINGOCOCCAL (MENACTRA/MENVEO) Aged Out HPV (Gardasil) Vaccine Aged Out Meningitis B Vaccine (Bexsero/Trumemba) Aged Out Colorectal Cancer Screening Discontinued Follow Up/ Referrals/Handouts: Falls Risk screening - handouts mailed Routine general medical examination at a health care facility (Primary) Follow Up: Return in 1 year (on 04/22/2025) for 12 month Subsequent Adult Wellness Visit. | For: 12 month Subsequent Adult Wellness Visit | Check-out note: 12 month Subsequent Adult Wellness Visit Would patient like to schedule next AWV visit? No Zari Sales [facility] AD8 Dementia Screening Interview Person answering questions: patient and caregiver Remember, "Yes, a change" indicates that there has been a change in the last several years caused by cognitive (thinking and memory) problems 1. Problems with judgement (eg: problems making decisions, bad financial decisions, problems with thinking). No (0) 2. Less interest in hobbies/activities. No (0) 3. Repeats the same things over and over (questions, stories, or statements). No (0) 4. Trouble learning how to use a tool, appliance, or gadget (eg: VCR, computer, microwave, remote control). Yes (1) 5. Forgets correct month or year. No (0) 6. Trouble handling complicated financial affairs (eg: balancing checkbook, income taxes, paying bills). No (0) 7. Trouble remembering appointments. No (0) 8. Daily problems with thinking and/or memory. Yes (1) TOTAL AD8: 1 - AD8 Dementia Screening Score The final score is a sum of the number items marked "Yes, A Change". 0 - 1: Normal cognition; 2 or greater: Cognitive impairments is likely to be present - further testing required documented in this encounter Plan of Treatment Upcoming Encounters Date Type Department Care Team (Late st Contact Info) Description 05/27/2024 11:00 AM EDT Telemedicine Pharmacy, [address] [place] [address] [place] [id number] 05/29/2024 11:00 AM EDT Appointment Vascular Lab [address] [address] 05/29/2024 11:30 AM EDT Appointment Vascular Lab [place] [address] [place] [address] 05/29/2024 12:00 PM EDT Office Visit Vascular Surg [facility] [address] [place] [address] Willian Rosas MD [address] [place] [address] 06/04/2024 1:30 PM EDT Office Visit Urogynecology [address] [place] [address] Cristopher Pantoja MD [address] [place] [address] 06/10/2024 11:20 AM EDT Office Visit [facility] [address] [place] [address] Jonny Donadlson MD [address] [place] [address] 09/17/2024 10:00 AM EDT Imaging Radiology [address] [place] [address] 09/20/2024 12:00 PM EDT Office Visit [facility] [address] [place] [address] Jonny Donaldson MD [address] [place] [address] 03/28/2025 12:00 PM EST Office Visit [facility] [address] [place] [address] Jonny Donaldson MD [address] [place] [address] Health Maintenance Due Date Last Done Comments Alpha-1 Antitrypsin 07/27/1973 Sigmoidoscopy 07/27/2000 Fecal Occult Blood Test 11/28/2009 11/28/2008 DXA Scan 08/01/2021 08/01/2016, 08/01/2016 Cologuard 06/27/2023 06/26/2020, 05/29, 06/06/2017 COVID-19 Vaccine ( season) 2023 01/24/2021, 01/04/2021, 06/03/2020, Additional history exists Diabetic Foot Exam 12/17/2023 12/16/2022, 0 10/20/2020, 10/05/2017, Additional history exists O2 ASSESSMENT COMPLETED IN PAST YEAR FOR COPD 06/08/2024 06/09/2023 HbA1c 08/26/2024 02/26/2024, 09/27, 07/05/2023, Additional history exists Mammogram 09/12/2024 09/13/2023, 090 07/2021, 11/02/2021, Additional history exists Diabetic Eye Exam 01/23/2025 01/24/2024, , 10/12/2022, Additional history exists Albumin/Creatinine Ratio 02/25/2025 024, 12/05/2022, 06/25/2021, Additional history exists B-12 02/25/2025 02/26/2024, 10/2022, 06/25/2021, Additional history exists GFR 04/18/2025 04/18/2024, 01/29, 08/04/2023, Additional history exists Adult Wellness Visit 04/22/2025 04/22/2024 Depression Screening 04/22/2025 04/22/2024 DTap/Tdap Vaccines (3 - Td or Tdap) 04/27/2028 04/27/2018, 08/28/2008, 11/22/1994 Hepatitis C Screening Completed 06/18/2002 Hepatitis B Vaccine Completed 08/27/2009, 03/30/2009, 02/27/2009 Zoster Vaccines Completed 08/21/2019, 04/27, 08/06/2015 Colonoscopy Discontinued 10/20/2021, 080 06/2015, 07/24/2012, Additional history exists Pneumococcal Vaccine: 50+ Years Completed 01/28/2022, 10/20/2020, 11/15/1994 Lung Cancer Screening Completed 08/23/2022, 021 Influenza Vaccine (FLU shot) Completed 11/27/2023, 12/16/2022, 12/09/2021, Additional history exists Colorectal Cancer Screening Discontinued HPV (Gardasil) Vaccine Aged Out No lo nger eligible based on patient's age to complete this topic MENINGOCOCCAL (MENACTRA/MENVEO) Aged Out No longer eligible based on patient's age to complete this topic Meningitis B Vaccine (Bexsero/Trumemba) Aged Out No longer eligible based on patient's age to complete this topic documented as of this encounter Medical Devices Implanted Type Area Health Assistant Device Identifier Shelf Expiration Date Model / Serial / Lot Greater Than 80cm, 3mm-8mm Flora, Angiograft Pvd Saphenous Veins, Cryopreserved Implanted:Qty: 1 on 01/19/2023 by Willian Rosas MD at OR [facility] Right: Leg Upper LIFENET 07/29/2026 CV>80 / [id number] / [id number] documented as of this encounter Visit Diagnoses Diagnosis Routine general medical examination at a health care facility- Primary Screening mammogram for breast cancer documented in this encounter Advance Directives * Full Code (Latest Code Status on File) Date Activated Date Inactivated Comments 01/19/2023 4:32 PM 01/21/2023 6:11 PM This order reflects the patients wishes and were consensually agreed upon. Question Answer Comments Discussion of Advance Directives occurred with: Patient * Full Code Date Activated Date Inactivated Comments 01/19/2023 12:14 AM 01/19/2023 4:32 PM This orde r reflects the patients wishes and were consensually agreed upon. Question Answer Comments Discussion of Advance Directives occurred with: Patient Care Teams [employer] Supervisor Relationship Specialty Start Date End Date Jonny Donaldson MD [address] [address] PCP - General Family Medicine 05/27/14 documented as of this encounter
--- OUTSIDE RECORDS SUMMARY | 2024-04-26 14:39 | External Medical Summary | Summary of Care ---
Author Name Unknown Organization [facility] Address [address] [place] [address] Phone [phone] Care Team Providers Care Electrical Instrumentation Technician Name Role Phone Jonny Broussard MD Primary Care Provider + Reason for Referral * Medication Prior Authorization - Pending Review Specialty Diagnoses / Procedures Referred By Joy fortune Referred To Contact Diagnoses Sciatica, unspecified laterality Jonny Broussard MD [address] [place] [address] Phone: tel: fax: Referral ID Status Reason Start Date Expiration Date V isits Requested Visits Authorized [id number] Pending Review 999 999 Reason for Visit * Reason Onset Date Comments Medication Refill 04/20/2024 Encounter Details Date Type Department Care Team (Late st Contact Info) Description 04/20/[address] [facility] [address] [place] [address] Jonny Broussard MD [address] [place] [address] Sciatica, unspecified laterality Allergies Active Allergy Reactions Criticality Noted Date Comments Cephalexin 01/28/1996 rash Doxepin 02/01/2018 Dust 04/04/2001 Nickel Anaphylaxis High 04/04/2001 Paroxetine 04/28/2003 generic only, brand ok Penicillins 03/03/1995 Rash Sulfa Antibiotics 11/27/1994 Rash documented as of this encounter (statuses as of 04/23/2024) Medications ASPIRIN EC 81 MG PO TBECIndications: Type II or unspecified type diabetes mellitus with renal manifestations, uncontrolled(250 .42) ([facility]) Take one pill daily 100 Tab 3 [...] hemoglobin A1c goal of less than 8.0% ([facility]) Inject 35 Units under the skin in [...] skin fold until rash improved. 30 g 03/18/19 25 Active Gabapentin 600 MG Oral Tablet (Neurontin)Indic ations:Leg cramping,Restles s legs syndrome Take 1 Tablet by mouth in the morning and 1 Tablet at noon and 1 Tablet before bedtime. 90 Tablet 5 03/18/19 25 Active Atorvastatin Calcium 80 MG Oral Tablet (Lipitor)Indicat ions:Dyslipidemi a, goal LDL below 100 Take 1 Tablet by mouth in the morning. 90 Tablet 03/25/19 25 Active metFORMIN HCl 850 MG Oral Tablet (Glucophage)Mirtha cations:Type 2 diabetes mellitus with hemoglobin A1c goal of less than 8.0% (HCC) TAKE ONE TABLET BY MOUTH THREE TIMES DAILY WITH MEALS diabetes 270 Tablet 03/25/19 25 Active Rivaroxaban 2.5 MG Oral [...] days. 20 Tablet 04/18/19 25 025 Active traMADol HCl 50 MG Oral Tablet (Ultram)Indicati ons:Sciatica, unspecified laterality Take 1-2 Tablets by mouth every 6 hours as needed (pain). 60 Tablet 04/22/19 25 Active traMADol HCl 50 MG Oral Tablet [...] of the RCA 04/27/[address] [facility]. History of nonmelanoma skin cancer 05/25/2022 Overview (05/25/2022): SCC L cheek 02/2022 History of completed stroke 04/27/2022 Overview (06/14/2022): Complication of CABG. Left sided weakness. R MCA stroke . 06/06/22 f/u concern for trickle flow -> ER. History of 2019 novel coronavirus disease (COVID -19) 08/10/2021 Overview (08/10/2021): 6/22 Carotid artery stenosis without cerebral infarct ion, [...] disease) 06/27/2013 Overview (06/27/2013): 06/24/13 +CP-abnormal stress->cath @[facility]. 100% occlusion RCA with left- right [...] Medical Center Episode June 2011 around 03/12/12 [place] [facility]-[id number] SVT--sched for [place] EP study Routine general medical exam ination at a health care facility 11/11/2011 Overview (03/20/2024): Cards--Dr Jeffrey Campos [place]. 12/20 TTE Card [place]-normal EF mild LVH. Mild , mild-mod MR, mild TR, mild MA. Grad 1 DD 03/03/23 TTE [facility] normal EF, moderate LVH. Mild hypokinesis of apical septum. 01/18 Carotid US [place] stable 50-69 on left. 10/18 colonoscopy [facility] 3 3-5 polyps PATH colon-polypoid mucosa mild hyperplastic changes. Rectal polyp= hyperplastic polyp. Dr Juan Mak [facility] (11/19 06/14 Cologuard WNL. Cardiology-Jeffrey Campos [place]. 12/17 Carotid 50-69% left ICA stenosis. 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 Authorizing Provider: JONNY BROUSSARD * Telephone Encounter - Tammi Son [facility] - 04/22/2024 2:01 PM ESTPending Prescriptions: Disp Refills traMADol HCl 50 MG Oral Tablet (Ultram) 60 Tab*0 Sig: Take 1-2 Tablets by mouth every 6 hours as needed (pain). * Telephone Encounter - Tammi Son [facility] - 04/22/2024 2:01 PM EST I have reviewed the patients controlled substance dispensing history in the Prescription Drug Monitoring Program in compliance with the [facility] regulations before prescribing a controlled substance. PDMP checked on 04/22/2024. Pending Prescriptions: Disp Refills traMADol HCl 50 MG Oral Tablet (Ultram) 60 Tab*0 Sig: Take 1-2 Tablets by mouth every 6 hours as needed (pain). Last Visit: 04/19/2024 (in office), 08/10/2021 (telemedicine) Next Visit: 06/10/2024 Date medication was last filled: 03/18/24 Date medication is due for refill: 03/25/24 [facility] Is this request for a controlled substance? Yes and Urine Drug Screen Not completed Toxicology results: No results found. However, due to the size of the patient record, not all encounters were searched.Please check Results Review for a complete set of results. Please approve if appropriate. Thanks, Tammi Son, PharmD Clinical Pharmacist [facility] [phone] 04/22/2024 2:01 PM documented in this encounter Plan of Treatment Upcoming Encounters Date Type Department Care Team (Late st Contact Info) Description 05/27/2024 11:00 AM EDT Telemedicine Pharmacy, [address] [place] [address] [place] [address] 05/29/2024 11:00 AM EDT Appointment [facility] [place] [address] [place] [address] 05/29/2024 11:30 AM EDT Appointment [facility] [place] [address] [place] [address] 05/29/2024 12:00 PM EDT Office Visit Vascular Surg [place] [address] [place] [address] Willian Rosas MD [address] [place] [address] 06/04/2024 1:30 PM EDT Office Visit Urogynecology [address] [place] [address] Cristopher Pantoja MD [address] [place] [address] 06/10/2024 11:20 AM EDT Office Visit [facility] [address] [place] [address] Jonny Broussard MD [address] [address] 09/17/2024 10:00 AM EDT Imaging Radiology [address] [place] [address] 09/20/2024 12:00 PM EDT Office Visit [facility] [address] [place] [address] Jonny Broussard MD [address] [place] [address] 03/28/2025 12:00 PM EST Office Visit [facility] [address] [address] [address] Jonny Broussard MD [address] [place] [address] Health Maintenance Due Date Last Done Comments [...] 07/05/2023, Additional history exists Mammogram 09/12/2024 09/13/2023, 0907/2021, 11/02/2021, Additional history exists Diabetic Eye Exam [...] this encounter Medical Devices Implanted Type Area Blanching Machine Operator Device Identifier Shelf Expiration Date Model / Serial / Lot Greater Than 80cm, 3mm-8mm Flora, Angiograft Pvd Saphenous Veins, Cryopreserved Implanted:Qty: 1 on 01/19/2023 by Willian Rosas MD at [place] [facility] Right: Leg Upper LIFENET 07/29/2026 CV>80 / [id number] / [id number] documented as of this encounter Visit Diagnoses Diagnosis Sciatica, unspecified laterality Screening mammogram for breast cancer documented in [...] Advance Directives occurred with: Patient Care Teams Electrical Instrumentation Technician Relationship Specialty Start Date End Date Jonny Broussard MD [address] [facility] [place] [address] PCP - General Family Medicine 05/27/14 documented as of this encounter
--- OUTSIDE RECORDS SUMMARY | 2024-04-26 14:39 | External Medical Summary | Summary of Care ---
Author Name Unknown Organization [facility] Address [address] [place] [address] Phone [phone] Care Team Providers Care Decorator Street And Building Name Role Phone Jonny Donaldson MD Primary Care Provider + Reason for Visit * Reason Comments Dosage Adjustment In Person (Anticoag Cl inic) Diabetes Follow-Up Encounter Details Date Type Department Care Team (Late st Contact Info) Description 04/22/2024 1:00 PM EST Office Visit Pharmacy, [address] [place] [address] [place] [address] Type 2 diabetes mellitus with hemoglobin A1c goal of less than 8.0% ([facility])* Allergies Active Allergy Reactions Criticality Noted Date Comments Cephalexin 01/28/1996 rash Doxepin 02/01/2018 Dust 04/04/2001 Nickel Anaphylaxis High 04/04/2001 Paroxetine 04/28/2003 generic only, brand ok Penicillins 03/03/1995 Rash Sulfa Antibiotics 11/27/1994 Rash documented as of this encounter (statuses as of 04/23/2024) Medications ASPIRIN EC 81 MG PO TBECIndications :Type II or unspecified type diabetes mellitus with renal manifestations, uncontrolled(25 0.42) ([facility]) Take one pill daily 100 Tab 3 014 Active fluticasone (FLONASE) 50 MCG/ACT nasal spray Administer 2 Sprays into each nostril 2 times a day. 18.2 mL 5 020 Active Ventolin HFA 108 (90 Base) MCG/ACT Inhalation Aerosol SolutionIndicat ions:Cough,Acut e bronchitis, complicated Inhale 2 Puffs by mouth every 4 hours as needed for Cough or Wheezing. Strength: 108 (90 Base) MCG/ACT 18 g 5 023 Active Metoprolol Succinate ER 25 MG Oral Tablet Extended Release 24 Hour (toPROL XL)Indications: HTN, goal below 130/80 Take 1 Tablet by mouth in the morning. 90 Tablet 3 023 Active Krill Oil 1000 MG Oral Capsule Take 1 Capsule by mouth in the morning. Active AZO Cranberry 250-30 MG Oral Tablet Take by mouth daily. Active Probiotic Acidophilus Oral Tablet Chewable Take by mouth daily. Active Mupirocin 2 % External Ointment (Bactroban) 023 Active CoQ-10 100 MG Oral Capsule Take by mouth. Ac tive Amitriptyline HCl 50 MG Oral Tablet (Elavil)Indicat ions:Other chest pain,Neuralgia TAKE ONE TABLET BY MOUTH EVERY DAY 90 Tablet 3 024 Active Sertraline HCl 50 MG Oral Tablet (Zoloft)Indicat ions:Generalize d anxiety disorder TAKE TWO TABLETS BY MOUTH EVERY MORNING 180 Tablet 3 024 Active Insulin Glargine Solostar 100 UNIT/ML Subcutaneous Solution Pen-injector (Basaglar KwikPen)Indicat ions:Type 2 diabetes mellitus with hemoglobin A1c goal of less than 8.0% (HCC) Inject 35 Units under the skin in the morning and 35 Units before bedtime. 75 mL 3 024 Active NATURAL SUPPLEMENT Take by mouth daily. Balance of nature fruits and veggie capsules Active Fiasp FlexTouch 100 UNIT/ML Subcutaneous Solution Pen-injector (Insulin Aspart (w/Niacinamide) )Indications:Ty pe 2 diabetes mellitus with hemoglobin A1c goal of less than 8.0% (HCC) Inject 26 with breakfast, 14 units with lunch, 20 units with dinner 60 mL 3 024 Active rOPINIRole HCl 0.5 MG Oral Tablet (Requip)Indicat ions:RLS (restless legs syndrome) TAKE ONE TABLET BY MOUTH AT BEDTIME and before naps 180 Tablet 3 024 Active Ezetimibe 10 MG Oral Tablet (Zetia)Indicati ons:Type 2 diabetes mellitus with hemoglobin A1c goal of less than 8.0% (HCC) Take 1 Tablet by mouth in the morning. 90 Tablet 3 024 Active OneTouch Verio w/Device KitIndications: Type 2 diabetes mellitus with hemoglobin A1c goal of less than 8.0% (HCC) Use up to 4 times a day E11.9 1 Kit 024 Active OneTouch UltraSoft LancetsIndicati ons:Type 2 diabetes mellitus with hemoglobin A1c goal of less than 8.0% (HCC) Use as directed 4 times a day as needed for Hypoglycemia (low sugar). 100 Each 2 024 Active OneTouch Verio In Vitro Strip (Glucose Blood)Indicatio ns:Type 2 diabetes mellitus with hemoglobin A1c goal of less than 8.0% (HCC) Use up to 4 times a day E11.9 100 Strip 11 024 Active BD Pen Needle Tanja U/F 32G X 4 MM (Insulin Pen Needle)Indicati ons:Type 2 diabetes mellitus with hemoglobin A1c goal of less than 8.0% (HCC) USE TO INJECT INSULIN 2-3 times per day 200 Each 3 024 Active Estradiol 0.1 MG/GM Vaginal Cream (Estrace) Apply pea sized amount (0.5 gm) vaginally twice a week at bedtime 42.5 g 025 Active Insulin Lispro (1 Unit Dial) 100 UNIT/ML Subcutaneous Solution Pen-injector (HumaLOG KwikPen)Indicat ions:Type 2 diabetes mellitus with hemoglobin A1c goal of less than 8.0% (HCC) Inject 26 with breakfast, 14 units with lunch, 20 units with dinner or as directed. Substitute for Fiasp until available. 60 mL 1 025 Active LORazepam 0.5 MG Oral Tablet (Ativan)Indicat ions:Anxiety state Take 1 Tablet by mouth every 8 hours as needed for Anxiety or Insomnia. 40 Tablet 025 Active Ketoconazole 2 % External Cream Apply topically to affected area 2 times a day. Apply to belly skin fold until rash improved. 30 g 1 025 Active Gabapentin 600 MG Oral Tablet (Neurontin)Mirtha cations:Leg cramping,Restle ss legs syndrome Take 1 Tablet by mouth in the morning and 1 Tablet at noon and 1 Tablet before bedtime. 90 Tablet 5 025 Active Atorvastatin Calcium 80 MG Oral Tablet (Lipitor)Indica tions:Dyslipide galo, goal LDL below 100 Take 1 Tablet by mouth in the morning. 90 Tablet 3 025 Active metFORMIN HCl 850 MG Oral Tablet (Glucophage)Ind ications:Type 2 diabetes mellitus with hemoglobin A1c goal of less than 8.0% (HCC) TAKE ONE TABLET BY MOUTH THREE TIMES DAILY WITH MEALS diabetes 270 Tablet 3 025 Active Rivaroxaban 2.5 MG Oral Tablet (Xarelto) Take 1 Tablet by mouth in the morning and 1 Tablet before bedtime. 60 Tablet 11 025 Active Empagliflozin 10 MG Oral Tablet (Jardiance)Mirtha cations:Type 2 diabetes mellitus with hemoglobin A1c goal of less than 8.0% (HCC) Take 1 Tablet by mouth in the morning. 90 Tablet 3 025 Active Cefuroxime Axetil 500 MG Oral Tablet (Ceftin)Indicat ions:Cellulitis of right leg Take 1 Tablet by mouth in the morning and 1 Tablet before bedtime. Do all this for 10 days. 20 Tablet 025 2024 Active Mounjaro 10 MG/0.5ML Subcutaneous Solution Auto-injector (Tirzepatide)In dications:Type 2 diabetes mellitus with hemoglobin A1c goal of less than 8.0% (HCC) Inject 10 mg under the skin once a week. Stop ozempic 6 mL 025 2025 Active Semaglutide (2 MG/DOSE) 8 MG/3ML Subcutaneous Solution Pen-injector (Ozempic)Indica tions:Type 2 diabetes mellitus with hemoglobin A1c goal of less than 8.0% (HCC) Inject 2 mg under the skin once a week. 9 mL 3 024 2024 Discontinued traMADol HCl 50 MG Oral Tablet (Ultram)Indicat ions:Sciatica, unspecified laterality Take 1-2 Tablets by mouth every 6 hours as needed (pain). 60 Tablet 025 2024 Discontinued(R efill) Doxycycline Hyclate 100 MG Oral Capsule Take 1 Capsule by mouth in the morning and 1 Capsule before bedtime. Do all this for 10 days. Until gone.. 20 Capsule 025 2024 Hospital, Clinic, or Other Facility Administered Medication [...] 04/27/[address] [facility]. History of nonmelanoma skin cancer 05/25/2022 Overview [...] disease) 06/27/2013 Overview (06/27/2013): 06/24/13 +CP-abnormal stress->cath @[facility]. 100% occlusion RCA with left- [...] Overview (04/25/2012): 04/20/12 AV Ablation-Dr Jeffrey Campos, [facility] Episode June 2011 around 03/12/12 [place] [facility]-P175 SVT--sched for [place] EP study Routine general medical exam ination at a health care facility 11/11/2011 Overview (03/20/2024): Cards--Dr Jeffrey Jalloh. 12/20 TTE Card [place]-normal EF mild LVH. Mild , mild-mod MR, mild TR, mild HI. Grad 1 DD 03/03/23 TTE [facility] normal EF, moderate LVH. Mild hypokinesis of apical septum. 01/18 Carotid US [place] stable 50-69 on left. 10/18 colonoscopy [facility] 3 3-5 poly[address] colon-polypoid mucosa mild hyperplastic changes. Rectal polyp= hyperplastic polyp. Dr Juan Mak [facility] (11/19 06/14 Cologuard WNL. Cardiology-Jeffrey Oscarpayal [place]. 12/17 Carotid 50-69% left ICA stenosis. Vielka [...] PFT evidence of COPD ) 05/10 TTE @[place] Miomppbitk-mdto-hifpdy EF, mild LVH, Gr1 Feldman Dys 07/09 colonoscopy [facility] Endoscopy [place]-3 & 6mm polyp--PAth--Tubular adenoma 07/09 [place] TSH & celiac testing WNL 04/11 ER visit [facility] SVT--resolved with adenosine. 03/11 EKG-scanned QTc 414 [...] mRNA, LNP-s, No Pre serve, 2-Dose Series ([email or web address]) 01/24/2021,01/04/2021,06/03/2020 Hepatitis B, 20+ yrs 08/27/2009,03/30/2009,02/27 Pneumococcal Conjugate Vacc, 13 Valent (Prevnar) 01/28/2022 Pneumococcal Polysaccharide PPV23 (Pneumovax) 10/20/2020,11/15/1994 Seasonal Influenza Vac., MDV , IM, 0.5 mL (Fluzone) 10/29/2014,01/02/2014,11/26/2012,01/27,12/26/2010,12/21/2009,12/03/19 09,12/30/2005,11/27/1994,02/27/1993 Seasonal Influenza, High Dos e, Trivalent, PF, IM (Fluzone HD) 11/27/2023 Seasonal Influenza, PF, 6 M & above, IM , (FluLaval or Fluzone) 11/27/2019,11/01/2018,12/15/2017,10/29 Seasonal Influenza, Quadriva lent Hd (Fluzone Hd) 12/16/2022,12/09/2021,11/10/2020 Seasonal Influenza, Quadriva lent, No Preserve, IM 11/16/2015 TD - Tetanus/Diptheria [...] Michela Robertson RN documented in this encounter Progress Notes * Rema Flores, [facility] - 04/22/2024 1:00 PM EST Images from the original note were not included. Medication Therapy Disease [facility] - Diabetes Management Progress Note Mariia Liao, identified by name and date of , is a 68 year old female being seen for diabetes management/education. Patient presents for return diabetic visit. Patient presented with spouse, Gaurang DIABETES: Current diabetic medications: Basaglar 30 units BID Fiasp Inject 26 with breakfast, 14 units with lunch, 20 units with dinner Ozempic Inject 2mg weekly- Wednesdays Jardiance 10mg once daily Metformin 850mg TID Medication Injection Site: Abdomen Lifestyle: Diet: lower carb options; smaller portions Glucose Review/SMBG: Readings obtained from patient device Hypoglycemia: Does your blood sugar go below 70 mg/dL? No Hyperglycemia symptoms present: none Recent Labs Units 02/26/24 0932 10/13/23 1020 07/05/23 1141 HEMOGLOBIN A1C - [facility] % 7.6* -- 9.1* HEMOGLOBIN A1C POCT - [facility] % -- 7.9* -- Recent Labs Units 04/18/24 1312 02/26/24 0932 08/04/23 1121 ESTIMATED GLOMERULAR FILTRATION RATE - [facility] mL/min 74 81 56* CREATININE - [facility] mg/dL 0.9 0.8 1.08 HYPERTENSION: Patient on ACEi/ARB: no, indicated per UACR-- need to discuss in future visits BP Readings from Last 3 Encounters: 04/19/24 124/80 04/18/24 124/70 04/13/24 126/72 Blood pressure at goal: yes HYPERLIPIDEMIA: Recent Labs Units 02/26/24 0932 12/05/22 1421 LDL CHOLESTEROL (DIRECT MEASURE) - [facility] mg/dL 44 86 Does patient have clinical ASCVD? Yes, is patient LDL less than 55 mg/dL? Yes HEALTH MAINTENANCE REVIEW: Health Maintenance Due Topic Date Due Alpha-1 Antitrypsin Never done Adult Wellness Visit Never done DXA Scan 08/01/2021 COVID-19 Vaccine ( season) 2023 Diabetic Foot Exam 12/17/2023 Depression Screening 12/17/2023 ASSESSMENT & PLAN: ICD-10-CM 1. Type 2 diabetes mellitus with hemoglobin A1c goal of less than 8.0% ([facility]) E11.9 Considerations: Previous SP patient Dexcom G7 through [place] BG Readings - Blood sugars uncontrolled. With patient's cardiac history, I think tighter control isappropriate. Dexcom download reviewed. Less TIR than last visit. No low blood sugars Medications - Reviewed current regimen, patient is adherent to regimen. We reviewed options to helpdecrease insulin doses: plan was decided to transition to mounjaro 10 mg (as long as insurance covers it). I will not change insulin doses yet, because we are not sure how she will respond to mounjaro. Patient verbalized understanding of this, and she is aware that our goal and hope is to decrease insulin doses. Diet, Exercise, Lifestyle - Patient is going to PT when she can to help improve her strength and balance . Discussed with patient and encouraged her to continue those exercises at home when she can. She notes to having a lot of doctors visits. We will do video visits going forward. Patient is agreeable to SMBG with dexcom daily. Patient aware to contact clinic if any hypoglycemia before next visit. MEDICATION CHANGES: yes, see below; preferred pharmacy: mail Diabetic Medications: Basaglar 30 units BID Fiasp Inject 26 with breakfast, 14 units with lunch, 20 units with dinner STOP Ozempic Inject 2mg weekly- Wednesdays START Mounjaro 10 mg once weekly - Wednesdays Jardiance 10mg once daily Metformin 850mg TID eGFR 74 as of 04/18/24 HEALTH MAINTENANCE INTERVENTIONS: Labs: Up to Date Immunizations: Up to Date Foot Exam: due Eye Exam: Up to Date Annual Wellness Visit: completed today FOLLOW UP: Return to clinic in 6 weeks 05/27/2024 I spent a total of 30-39 minutes (exact time 35 mins) on the date of service in preparation, delivery, and documentation of the care provided to Mariia Liao excluding any time spent in the performance of separately billed services. Rema Flores RPh Clinical Pharmacist - Retail Service Representative Medication Therapy Management Clinic 04/22/2024, 1:04 PM documented in this encounter Miscellaneous Notes * Addendum Note - Rema Flores RPh - 04/23/2024 8:00 AM ESTAddended by: REMA FLORES on: 04/23/2024 08:00 AM Modules accepted: Level of Service documented in this encounter Plan of Treatment Upcoming Encounters Date Type Department Care Team (Late st Contact Info) Description 05/27/2024 11:00 AM EDT Telemedicine Pharmacy, [address] [place] [address] [place] [address] 05/29/2024 11:00 AM EDT Appointment Vascular Lab [address] [address] 05/29/2024 11:30 AM EDT Appointment Vascular Lab [address] [address] 05/29/2024 12:00 PM EDT Office Visit Vascular Surg [address] [address] Willian Rosas MD [facility] [place] [address] 06/04/2024 1:30 PM EDT Office [facility] [place] [address] Cristopher Pantoja MD [address] [place] [address] 06/10/2024 11:20 AM EDT Office Visit [facility] [address] [place] [address] Jonny Donaldson MD [address] [place] [address] 09/17/2024 10:00 AM EDT Imaging Radiology [address] [place] [address] 09/20/2024 12:00 PM EDT Office Visit [facility] [address] [place] [address] Jonny Donaldson MD [address] [place] [address] 03/28/2025 12:00 PM EST Office Visit [facility] [address] [place] [address] Jonny Donaldson MD [address] [place] [address] Health Maintenance Due Date Last Done Comments [...] 07/05/2023, Additional history exists Mammogram 09/12/2024 09/13/2023, 07/2021, 11/02/2021, Additional history exists Diabetic Eye [...] Completed 08/21/2019, 04/27, 08/06/2015 Colonoscopy Discontinued 10/20/2021, 06/2015, 07/24/2012, Additional history exists Pneumococcal Vaccine: [...] this encounter Medical Devices Implanted Type Area Towel Folder Device Identifier Shelf Expiration Date Model / Serial / Lot Greater Than 80cm, 3mm-8mm Flora, Angiograft Pvd Saphenous Veins, Cryopreserved Implanted:Qty: 1 on 01/19/2023 by Willian Rosas MD at [place] [facility] [place] Right: Leg Upper LIFENET 07/29/2026 CV>80 / [id number] / [id number] documented as of this encounter Visit Diagnoses Diagnosis Type 2 diabetes mellitus with hemoglobin A1c goal of less than 8.0% ([facility])- Primary Screening mammogram for breast cancer documented [...] Advance Directives occurred with: Patient Care Teams Decorator Street And Building Relationship Specialty Start Date End Date Jonny Donaldson MD [address] [facility] [place] [address] PCP - General Family Medicine 05/27/14 documented as of this encounter
--- OUTSIDE RECORDS SUMMARY | 2024-04-26 14:39 | External Medical Summary | Summary of Care ---
Author Name Unknown Organization [facility] Address [address] [place] [address] Phone [phone] Care Team Providers Care Aerial Survey Technician Name Role Phone Jonny Donaldson MD Primary Care Provider + Reason for Visit * Reason Comments Dosage Adjustment In Person (Anticoag Cl inic) Diabetes Follow-Up Encounter Details Date Type Department Care Team (Late st Contact Info) Description 04/22/2024 1:00 PM EST Office Visit Pharmacy, [address] [place] [phone] [place] [address] Type 2 diabetes mellitus with hemoglobin A1c goal of less than 8.0% ([facility])* Allergies Active Allergy Reactions Criticality Noted Date Comments Cephalexin 01/28/1996 rash Doxepin 02/01/2018 Dust 04/04/2001 Nickel Anaphylaxis High 04/04/2001 Paroxetine 04/28/2003 generic only, brand ok Penicillins 03/03/1995 Rash Sulfa Antibiotics 11/27/1994 Rash documented as of this encounter (statuses as of 04/23/2024) Medications ASPIRIN EC 81 MG PO TBECIndications :Type II or unspecified type diabetes mellitus with renal manifestations, uncontrolled(25 0.42) ([facility]) Take one pill daily 100 Tab [...] the RCA 04/27/[address] [facility]te [facility]. History of nonmelanoma skin cancer 05/25/2022 Overview [...] disease) 06/27/2013 Overview (06/27/2013): 06/24/13 +CP-abnormal [place] [place] 100% occlusion RCA with left- right [...] Overview (04/25/2012): 04/20/12 AV Ablation-Dr Jeffrey Campos, [facility] Episode June 2011 around 03/12/12 [facility] hosp-P175 SVT--sched for [facility] EP study Routine general medical exam ination at a health care facility 11/11/2011 Overview (03/20/2024): Cards--Dr Jeffrey Jalloh. 12/20 TTE Card [facility]-normal EF mild LVH. Mild , mild-mod MR, mild TR, mild [place]. Grad 1 DD 03/03/23 TTE [facility] normal EF, moderate LVH. Mild hypokinesis of apical septum. 01/18 Carotid US [facility] stable 50-69 on left. 10/18 colonoscopy [facility] 3 3-[address] colon-polypoid mucosa mild hyperplastic changes. Rectal polyp= hyperplastic polyp. Dr Juan Mak [facility] (11/19 06/14 Cologuard WNL. Cardiology-Jeffrey Oscarpayal [facility]. 12/17 Carotid 50-69% left ICA stenosis. Vielka [...] PFT evidence of COPD ) 05/10 TTE @[facility] Nsihihnlmw-izau-yxluve EF, mild LVH, Gr1 Feldman Dys 07/09 colonoscopy [facility] Endoscopy [facility]-3 & 6mm polyp--PAth--Tubular adenoma 07/09 [facility] TSH & celiac testing WNL 04/11 ER visit [facility] SVT--resolved with adenosine. 03/11 EKG-scanned [...] mRNA, LNP-s, No Pre serve, 2-Dose Series ([place]) 01/24/2021,01/04/2021,06/03/2020 Hepatitis B, 20+ yrs 08/27/2009,03/30/2009,02/27 Pneumococcal [...] 18 years and over) Not on file 3 Are you (or your family) lawrence eless [...] Entry Date Author No 01/19/2023 12:56 AM EST Michela Liu RN documented in this encounter Progress Notes * Mónica Zari Sharmila, [facility] - 04/22/2024 1:00 PM EST Images from [...] A1c goal of less than 8.0% ([facility]) E11.9 Considerations: Previous SP patient Dexcom G7 through [place] BG Readings - Blood sugars uncontrolled. With [...] in the performance of separately billed services. Zari Sales [facility] Clinical Pharmacist - Associate Business Analyst Medication Therapy Management Clinic 04/22/2024, 1:04 PM documented in this encounter Plan of Treatment Upcoming Encounters Date Type Department Care Team (Late st Contact Info) Description 05/27/2024 11:00 AM EDT Telemedicine Pharmacy, [address] [place] [address] [place] [address] 05/29/2024 11:00 AM EDT Appointment Vascular Lab [address] [address] 05/29/2024 11:30 AM EDT Appointment Vascular Lab [address] [address] 05/29/2024 12:00 PM EDT Office Visit Vascular Surg [place] [address] [place] [address] Willian Rosas MD [facility] [place] [address] 06/04/2024 1:30 PM EDT Office Visit Urogynecology [facility] [address] [address] Cristopher Pantoja MD [address] [place] [address] 06/10/2024 11:20 AM EDT Office Visit Family Practice [facility] [address] [place] [address] Jonny Donaldson MD [address] [place] [address] 09/17/2024 10:00 AM EDT Imaging Radiology [address] [place] [address] 09/20/2024 12:00 PM EDT Office Visit [facility] [address] [place] [address] Jonny Donaldson MD [address] [place] [address] 03/28/2025 12:00 PM EST Office Visit [facility] [address] [place] [address] Jonny Donaldson MD [address] [place] [address] Health Maintenance Due Date Last Done Comments Alpha-1 Antitrypsin 07/27/1973 Sigmoidoscopy 07/27/2000 Fecal Occult Blood Test 11/28/2009 11/28/2008 DXA Scan 08/01/2021 08/01/2016, 08/01/2016 Cologuard 06/27/2023 06/26/2020, 05/29, 06/06/2017 COVID-19 Vaccine ( season) 2023 01/24/2021, 01/04/2021, 06/03/2020, Additional history exists Diabetic Foot Exam 12/17/2023 12/16/2022, 0 10/20/2020, 10/05/2017, Additional history exists O2 ASSESSMENT COMPLETED IN PAST YEAR FOR COPD 06/08/2024 06/09/2023 HbA1c 08/26/2024 02/26/2024, 0807/2023, 07/05/2023, Additional history exists Mammogram 09/12/2024 09/13/2023, 09/0 07/2021, 11/02/2021, Additional history exists Diabetic Eye Exam 01/23/2025 01/24/2024, , 10/12/2022, Additional history exists Albumin/Creatinine Ratio 02/25/202502/25/2 024, 12/05/2022, 06/25/2021, Additional history exists B-12 02/25/2025 02/26/2024, 10/2022, 06/25/2021, Additional history exists GFR 04/18/2025 04/18/2024, 01/29, 08/04/2023, Additional history exists Adult Wellness Visit 04/22/2025 04/22/2024 Depression Screening 04/22/2025 04/22/2024 DTap/Tdap Vaccines (3 - Td or Tdap) 04/27/2028 04/27/2018, 08/28/2008, 11/22/1994 Hepatitis C Screening Completed 06/18/2002 Hepatitis B Vaccine Completed 08/27/2009, 03/30/2009, 02/27/2009 Zoster Vaccines Completed 08/21/2019, 04/27, 08/06/2015 Colonoscopy Discontinued 10/20/2021, 0806/2015, 07/24/2012, Additional history exists Pneumococcal Vaccine: 50+ [...] this encounter Medical Devices Implanted Type Area Salesperson Jewelry Device Identifier Shelf Expiration Date Model / Serial / Lot Greater Than 80cm, 3mm-8mm Flora, Angiograft Pvd Saphenous Veins, Cryopreserved Implanted:Qty: 1 on 01/19/2023 by Willian Rosas MD [place] [facility] [place]: Leg Upper LIFENET 07/29/2026 CV>80 / [id number] documented as of this encounter Visit Diagnoses Diagnosis Type 2 diabetes mellitus with hemoglobin A1c goal of less than 8.0% ([facility])- Primary Screening mammogram for breast cancer documented [...] Advance Directives occurred with: Patient Care Teams Aerial Survey Technician Relationship Specialty Start Date End Date Jonny Donaldson MD [address] [place] [address] PCP - General Family Medicine 05/27/14 documented as of this encounter
--- OUTSIDE RECORDS SUMMARY | 2024-04-26 14:40 | External Medical Summary ---
Author Name Unknown Address Unknown Organization K01:LABORATORY [facility] [place] - [address] [facility]. [place] [address] Laboratory Report Ordering Provider Test Date Status [place] GAO 04/18/2024 13:12:28 Final Observation Date Value Abnormality Reference (Units ) Status BUN 04/18/2024 13:12:28 17 6-20 (mg/dL) Final Creatinine 04/18/2024 13:12:28 0.9 0.5-1.0 (mg/dL) Final Glomerular filtration rate/1.73 sq M.predicted [Volume Rate/Area] in Serum, Plasma or Blood by Creatinine-based formula (CKD-EPI) 04/18/2024 13:12:28 74 >=60 (mL/min) Final eGFR is calculated based on the CKD-EPI 2020 equation. Sodium 04/18/2024 13:12:28 139 135-146 (m mol/L) Final Potassium 04/18/2024 13:12:28 5.4 Above high normal 3. 5-5.1 (mmol/L) Final Cl 04/18/2024 13:12:28 97 Below low normal 98- 107 (mmol/L) Final CO2 04/18/2024 13:12:28 28 22-32 (mmo l/L) Final Anion gap 04/18/2024 13:12:28 14 7-15 (mmol /L) Final Glucose 04/18/2024 13:12:28 139 Above high normal 70 -120 (mg/dL) Final Albumin 04/18/2024 13:12:28 3.8 3.8-5.0 (g /dL) Final AST (Aspartate aminotransferase) 04/18/2024 13:12:28 22 10-35 (U/L) Fin al Alk Phos 04/18/2024 13:12:28 139 Above high normal 35 -130 (U/L) Final Bilirubin, Total 04/18/2024 13:12:28 0.4 <=1 .2 (mg/dL) Final Calcium 04/18/2024 13:12:28 9.1 8.4-10.2 ( mg/dL) Final Protein 04/18/2024 13:12:28 6.6 6.0-8.3 (g /dL) Final ALT (Alanine aminotransferase) 04/18/2024 13:12:28 24 10-35 (U/L) Dayo sanders Performing Location LABORATORY [facility] [place] - [address] [facility] [address]
--- OUTSIDE RECORDS SUMMARY | 2024-04-26 14:40 | External Medical Summary | Summary of Care ---
Author Name Unknown Organization [facility] Address [address] [place] [address] Phone [phone] Care Team Providers Care Space And Storage Clerk Name Role Phone Jonny Donaldson MD Primary Care Provider + Encounter Details Date Type Department Care Team (Late st Contact Info) Description 04/22/2024 Orders Only PATIENT PORTAL DO NOT DELETE [place] [address] Allergies Active Allergy Reactions Criticality Noted Date Comments Cephalexin 01/28/1996 rash Doxepin 02/01/2018 Dust 04/04/2001 Nickel Anaphylaxis High 04/04/2001 Paroxetine 04/28/2003 generic only, brand ok Penicillins 03/03/1995 Rash Sulfa Antibiotics 11/27/1994 Rash documented as of this encounter (statuses as of 04/22/2024) Medications ASPIRIN EC 81 MG PO TBECIndications: Type II or unspecified type diabetes mellitus with renal manifestations, uncontrolled(250 .42) (HCC) Take one pill daily 100 Tab 3 4 Active fluticasone (FLONASE) 50 MCG/ACT nasal spray Administer 2 Sprays into each nostril 2 times a day. 18.2 mL 5 0 Active Ventolin HFA 108 (90 Base) MCG/ACT Inhalation Aerosol SolutionIndicati ons:Cough,Acute bronchitis, complicated Inhale 2 Puffs by mouth every 4 hours as needed for Cough or Wheezing. Strength: 108 (90 Base) MCG/ACT 18 g 5 3 Active Metoprolol Succinate ER 25 MG Oral Tablet Extended Release 24 Hour (toPROL XL)Indications:H TN, goal below 130/80 Take 1 Tablet by mouth in the morning. 90 Tablet 3 3 Active Krill Oil 1000 MG Oral Capsule Take 1 Capsule by mouth in the morning. Active AZO Cranberry 250-30 MG Oral Tablet Take by mouth daily. Active Probiotic Acidophilus Oral Tablet Chewable Take by mouth daily. Active Mupirocin 2 % External Ointment (Bactroban) 3 Active CoQ-10 100 MG Oral Capsule Take by mouth. Ac tive Amitriptyline HCl 50 MG Oral Tablet (Elavil)Indicati ons:Other chest pain,Neuralgia TAKE ONE TABLET BY MOUTH EVERY DAY 90 Tablet 3 4 Active Sertraline HCl 50 MG Oral Tablet (Zoloft)Indicati ons:Generalized anxiety disorder TAKE TWO TABLETS BY MOUTH EVERY MORNING 180 Tablet 3 4 Active Semaglutide (2 MG/DOSE) 8 MG/3ML Subcutaneous Solution Pen-injector (Ozempic)Indicat ions:Type 2 diabetes mellitus with hemoglobin A1c goal of less than 8.0% (HCC) Inject 2 mg under the skin once a week. 9 mL 3 4 Active Insulin Glargine Solostar 100 UNIT/ML Subcutaneous Solution Pen-injector (Basaglar KwikPen)Indicati ons:Type 2 diabetes mellitus with hemoglobin A1c goal of less than 8.0% (HCC) Inject 35 Units under the skin in the morning and 35 Units before bedtime. 75 mL 3 4 Active NATURAL SUPPLEMENT Take by mouth daily. Balance of nature fruits and veggie capsules Active Fiasp FlexTouch 100 UNIT/ML Subcutaneous Solution Pen-injector (Insulin Aspart (w/Niacinamide)) Indications:Type 2 diabetes mellitus with hemoglobin A1c goal of less than 8.0% (HCC) Inject 26 with breakfast, 14 units with lunch, 20 units with dinner 60 mL 3 4 Active rOPINIRole HCl 0.5 MG Oral Tablet (Requip)Indicati ons:RLS (restless legs syndrome) TAKE ONE TABLET BY MOUTH AT BEDTIME and before naps 180 Tablet 3 4 Active Ezetimibe 10 MG Oral Tablet (Zetia)Indicatio ns:Type 2 diabetes mellitus with hemoglobin A1c goal of less than 8.0% (HCC) Take 1 Tablet by mouth in the morning. 90 Tablet 3 4 Active OneTouch Verio w/Device KitIndications:T ype 2 diabetes mellitus with hemoglobin A1c goal of less than 8.0% (HCC) Use up to 4 times a day E11.9 1 Kit 4 Active OneTouch UltraSoft LancetsIndicatio ns:Type 2 diabetes mellitus with hemoglobin A1c goal of less than 8.0% (HCC) Use as directed 4 times a day as needed for Hypoglycemia (low sugar). 100 Each 2 4 Active OneTouch Verio In Vitro Strip (Glucose Blood)Indication s:Type 2 diabetes mellitus with hemoglobin A1c goal of less than 8.0% (HCC) Use up to 4 times a day E11.9 100 Strip 11 4 Active BD Pen Needle Tanja U/F 32G X 4 MM (Insulin Pen Needle)Indicatio ns:Type 2 diabetes mellitus with hemoglobin A1c goal of less than 8.0% (HCC) USE TO INJECT INSULIN 2-3 times per day 200 Each 3 4 Active Estradiol 0.1 MG/GM Vaginal Cream (Estrace) Apply pea sized amount (0.5 gm) vaginally twice a week at bedtime 42.5 g 5 Active Insulin Lispro (1 Unit Dial) 100 UNIT/ML Subcutaneous Solution Pen-injector (HumaLOG KwikPen)Indicati ons:Type 2 diabetes mellitus with hemoglobin A1c goal of less than 8.0% (HCC) Inject 26 with breakfast, 14 units with lunch, 20 units with dinner or as directed. Substitute for Fiasp until available. 60 mL 1 5 Active LORazepam 0.5 MG Oral Tablet (Ativan)Indicati ons:Anxiety state Take 1 Tablet by mouth every 8 hours as needed for Anxiety or Insomnia. 40 Tablet 5 Active traMADol HCl 50 MG Oral Tablet (Ultram)Indicati ons:Sciatica, unspecified laterality Take 1-2 Tablets by mouth every 6 hours as needed (pain). 60 Tablet 5 Active Ketoconazole 2 % External Cream Apply topically to affected area 2 times a day. Apply to belly skin fold until rash improved. 30 g 1 5 Active Gabapentin 600 MG Oral Tablet (Neurontin)Indic ations:Leg cramping,Restles s legs syndrome Take 1 Tablet by mouth in the morning and 1 Tablet at noon and 1 Tablet before bedtime. 90 Tablet 5 5 Active Atorvastatin Calcium 80 MG Oral Tablet (Lipitor)Indicat ions:Dyslipidemi a, goal LDL below 100 Take 1 Tablet by mouth in the morning. 90 Tablet 3 5 Active metFORMIN HCl 850 MG Oral Tablet (Glucophage)Mirtha cations:Type 2 diabetes mellitus with hemoglobin A1c goal of less than 8.0% (HCC) TAKE ONE TABLET BY MOUTH THREE TIMES DAILY WITH MEALS diabetes 270 Tablet 3 5 Active Rivaroxaban 2.5 MG Oral Tablet (Xarelto) Take 1 Tablet by mouth in the morning and 1 Tablet before bedtime. 60 Tablet 11 5 Active Doxycycline Hyclate 100 MG Oral Capsule Take 1 Capsule by mouth in the morning and 1 Capsule before bedtime. Do all this for 10 days. Until gone.. 20 Capsule 5 025 Active Empagliflozin 10 MG Oral Tablet (Jardiance)Indic ations:Type 2 diabetes mellitus with hemoglobin A1c goal of less than 8.0% (HCC) Take 1 Tablet by mouth in the morning. 90 Tablet 3 5 Active Cefuroxime Axetil 500 MG Oral Tablet (Ceftin)Indicati ons:Cellulitis of right leg Take 1 Tablet by mouth in the morning and 1 Tablet before bedtime. Do all this for 10 days. 20 Tablet 5 025 Active Hospital, Clinic, or Other Facility Administered Medication Ordered Dose Route Frequency Start Date End Date Status cefTRIAXone (Rocephin) (350 mg/mL) inj dilution 1,000 mgIndications:Cellulitis of right leg 1000 mg IM Q24H 04/13/2024 Active cefTRIAXone (Rocephin) (350 mg/mL) inj dilution 1,000 mgIndications:Cellulitis of right leg 1000 mg IM Q24H 04/18/2024 Active documented as of this encounter (statuses as of 04/22/2024) Active Problems Problem Noted Date Diagnosed Date [...] the RCA 04/27/[address] Whyte [facility]. History of nonmelanoma skin cancer 05/25/2022 Overview [...] disease) 06/27/2013 Overview (06/27/2013): 06/24/13 +CP-abnormal stress->cath @[facility]. 100% occlusion RCA with left- [...] Overview (04/25/2012): 04/20/12 AV Ablation-Dr Jeffrey Campos, [facility] Episode June 2011 around 03/12/12 [facility]-P175 SVT--sched for [facility] EP study Routine general medical exam ination at a health care facility 11/11/2011 Overview (03/20/2024): Cards--Dr Jeffrey Campos [facility]. 12/20 TTE Card [facility]-normal EF mild LVH. Mild , mild-mod MR, mild TR, mild RI. Grad 1 DD 03/03/23 TTE [facility] normal EF, moderate LVH. Mild hypokinesis of apical septum. 01/18 Carotid US [facility] stable 50-69 on left. 10/18 colonoscopy [facility] 3 3-5 poly[address] colon-polypoid mucosa mild hyperplastic changes. Rectal polyp= hyperplastic polyp. Dr Juan Mak [facility] (11/19 06/14 Cologuard WNL. Cardiology-Jeffrey Jalloh. 12/17 Carotid 50-69% left ICA stenosis. 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 Overview (02/08/2013): [...] as of this encounter (statuses as of 04/22/2024) Immunizations Name Administration Dates Next Due COVID-19 mRNA, LNP-s, No Pre serve, 2-Dose Series ([place]) 01/24/2021,01/04/2021,06/03/2020 Hepatitis B, 20+ yrs 08/27/2009,03/30/2009,02/27 Pneumococcal Conjugate Vacc, 13 Valent (Prevnar) 01/28/2022 Pneumococcal Polysaccharide PPV23 (Pneumovax) 10/20/2020 Seasonal Influenza Vac., MDV , IM, 0.5 mL (Fluzone) 10/29/2014,01/02/2014,11/26/2012,01/27,12/26/2010,12/21/2009,12/03/19,12/30/2005 Seasonal Influenza, High Dos e, Trivalent, PF, [...] Michela Robertson RN documented in this encounter Plan of Treatment Upcoming Encounters Date Type Department Care Team (Late st Contact Info) Description 04/22/2024 1:00 PM EST Office Visit Pharmacy, [address] [place] [address] [place] [address] 04/22/2024 1:40 PM EST Pharmacy Pharmacy, [address] [place] [address] [place] [address] 05/29/2024 11:00 AM EDT Appointment Vascular Lab [place] [address] [place] [address] 05/29/2024 11:30 AM EDT Appointment Vascular Lab [place] [address] [place] [address] 05/29/2024 12:00 PM EDT Office Visit Vascular Surg [place] [address] [place] [address] Willian Rosas MD [facility] [place] [address] 06/04/2024 1:30 PM EDT Office Visit Urogynecology [facility] [address] [place] [address] Cristopher Pantoja MD [address] [place] [address] 06/10/2024 11:20 AM EDT Office Visit [facility] [address] [place] [address] Jonny Donaldson MD [address] [place] [address] 09/17/2024 10:00 AM EDT Imaging Radiology [address] [place] [address] 09/20/2024 12:00 PM EDT Office Visit [facility] [address] [place] [address] Jonny Donaldson MD [address] [place] [address] 03/28/2025 12:00 PM EST Office Visit Family Practice [facility] [address] [place] [address] Jonny Donaldson MD [address] [place] [address] Health Maintenance Due Date Last Done Comments Alpha-1 Antitrypsin 07/27/1973 Sigmoidoscopy 07/27/2000 Fecal Occult Blood Test 11/28/2009 11/28/2008 Adult Wellness Visit 07/27/2021 DXA Scan 08/01/2021 08/01/2016, 08/01/2016 Cologuard 06/27/2023 06/26/2020, 05/29, 06/06/2017 COVID-19 Vaccine ( season) 2023 01/24/2021, 01/04/2021, 06/03/2020, Additional history exists Depression Screening 12/17/2023 12/16/2022 [...] 04/18/2025 04/18/2024, 01/29, 08/04/2023, Additional history exists DTap/Tdap Vaccines (3 - Td or Tdap) 04/27/2028 04/27/2018, 08/28/2008, 11/22/1994 Hepatitis C Screening Completed 06/18/2002 Hepatitis B Vaccine Completed 08/27/2009, 03/30/2009, 02/27/2009 Zoster Vaccines Completed 08/21/2019, 04/27, 08/06/2015 Colonoscopy Discontinued 10/20/2021, 08/06/2015, 07/24/2012, Additional history exists Pneumococcal Vaccine: 50+ [...] encounter Medical Devices Implanted Type Area High Energy Forming Equipment Operator Device Identifier Shelf Expiration Date Model / Serial / Lot Greater Than 80cm, 3mm-8mm Flora, Angiograft Pvd Saphenous Veins, Cryopreserved Implanted:Qty: 1 on 01/19/2023 by Willian Rosas MD at [facility] Right: Leg Upper LIFENET 07/29/2026 CV>80 / [id number] / [id number] documented as of this encounter Advance Directives * Full Code [...] Advance Directives occurred with: Patient Care Teams Space And Storage Clerk Relationship Specialty Start Date End Date Jonny Donaldson MD [address] [place] [address] PCP - General Family Medicine 05/27/14 documented as of this encounter
--- OUTSIDE RECORDS SUMMARY | 2024-04-26 14:40 | External Medical Summary ---
Author Name Unknown Address Unknown Organization K01:LABORATORY [facility] [place] - [address] [place] [address] Laboratory Report Ordering Provider Test Date Status SIMAJOSEPHNINO 04/18/2024 13:12:28 Final Exclude Heart Failure: <300 pg/mL
Diagnose Heart Failure:
Age <50 yr: >450 pg/mL
50-75 yr: >900 pg/mL
>75 yr: >1800 pg/mL
GFR is 30-59 mL/min: >1200 pg/mL or Age- adjusted values
GFR <30 mL/min: do not use, not reliable

Prognostic threshold: 1000 pg/mL Observation Date Value Abnormality Reference (Units ) Status BNP, Pro-hormone 04/18/2024 13:12:28 1895 Above high no rmal <300 (pg/mL) Final Performing Location [facility] [place] - [address] [place] [address]
--- OUTSIDE RECORDS SUMMARY | 2024-04-26 14:40 | External Medical Summary | Summary of Care ---
Author Name Unknown Organization [facility] Address [address] [place] [address] Phone [phone] Care Team Providers Care Insulation Supervisor Name Role Phone Jonny Broussard MD Primary Care Provider + Reason for Visit * Reason Onset Date Comments Medication Refill 04/16/2024 Encounter Details Date Type Department Care Team (Late st Contact Info) Description 04/16/2024 Refill Family Practice [facility] [address] [facility] [place] [address] Jonny Broussard MD [address] [place] [address] Type 2 diabetes mellitus with hemoglobin A1c goal of less than 8.0% ([facility]) Allergies Active Allergy Reactions Criticality Noted Date Comments Cephalexin 01/28/1996 rash Doxepin 02/01/2018 Dust 04/04/2001 Nickel Anaphylaxis High 04/04/2001 Paroxetine 04/28/2003 generic only, brand ok Penicillins 03/03/1995 Rash Sulfa Antibiotics 11/27/1994 Rash documented as of this encounter (statuses as of 04/18/2024) Medications ASPIRIN EC 81 MG PO TBECIndications: Type II or unspecified type diabetes mellitus with renal manifestations, uncontrolled(250 .42) ([facility]) Take one pill daily [...] MORNING 180 Tablet 3 07/18/19 24 Active Semaglutide (2 MG/DOSE) 8 MG/3ML Subcutaneous Solution Pen-injector (Ozempic)Indicat ions:Type 2 diabetes mellitus with hemoglobin A1c goal of less than 8.0% (HCC) Inject 2 mg under the skin once a week. 9 mL 3 08/02/19 24 Active Insulin Glargine Solostar 100 UNIT/ML Subcutaneous Solution Pen-injector (Basaglar KwikPen)Indicati ons:Type 2 diabetes mellitus with hemoglobin A1c goal of less than 8.0% (HCC) Inject 35 Units under the skin in the morning and 35 Units before bedtime. 75 mL 3 08/11/19 24 Active NATURAL SUPPLEMENT Take by mouth daily. Balance of nature fruits and veggie capsules Active Chlorhexidine Gluconate 4 % External Solution (Hibiclens) Apply to legs during shower twice a week 236 mL 1 10/05/19 24 Active Additional Information Patient not taking.Reported on 04/13/2024 Fiasp FlexTouch 100 UNIT/ML Subcutaneous Solution Pen-injector [...] or Insomnia. 40 Tablet 03/18/19 25 Active traMADol HCl 50 MG Oral Tablet (Ultram)Indicati ons:Sciatica, unspecified laterality Take 1-2 Tablets by mouth every 6 hours as needed (pain). 60 Tablet 03/18/19 25 Active Ketoconazole 2 % [...] bedtime. 60 Tablet 11 03/26/19 25 Active Doxycycline Hyclate 100 MG Oral Capsule Take 1 Capsule by mouth in the morning and 1 Capsule before bedtime. Do all this for 10 days. Until gone.. 20 Capsule 04/12/19 25 025 Active Furosemide 20 MG Oral Tablet (Lasix)Indicatio ns:Leg edema Take 1 Tablet by mouth in the morning. 3 Tablet 04/13/19 25 Active Empagliflozin 10 MG Oral Tablet (Jardiance)Indic ations:Type 2 diabetes mellitus with hemoglobin A1c goal of less than 8.0% (HCC) Take 1 Tablet by mouth in the morning. 90 Tablet 3 04/17/19 25 Active Empagliflozin 10 MG Oral Tablet (Jardiance)Indic ations:Type 2 diabetes mellitus with hemoglobin A1c goal of less than 8.0% ([facility]) Take 1 Tablet by mouth in the morning. 90 Tablet 01/31/20 24 025 Discontin ued(Refil l) Hospital, Clinic, or Other Facility Administered Medication Ordered Dose Route Frequency Start Date End Date Status cefTRIAXone (Rocephin) (350 mg/mL) inj dilution 1,000 mgIndications:Cellulitis of right leg 1000 mg IM Q24H 04/13/2024 Active documented as of this encounter (statuses as of 04/18/2024) Active Problems Problem Noted Date Diagnosed Date [...] disease) 06/27/2013 Overview (06/27/2013): 06/24/13 +CP-abnormal stress->cath @[facility]. 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 [...] Overview (04/25/2012): 04/20/12 AV Ablation-Dr Jeffrey Campos, [facility] Episode June 2011 around 03/12/12 [facility]-P175 SVT--sched for [facility] EP study Routine general medical exam ination at a health care facility 11/11/2011 Overview (03/20/2024): Cards--Dr Jeffrey Campos [facility]. 12/20 TTE Card [facility]-normal EF mild LVH. Mild , mild-mod MR, mild TR, mild [place]. Grad 1 DD 03/03/[address] [facility] normal EF, moderate LVH. Mild hypokinesis of apical septum. 01/18 Carotid US [facility] stable 50-69 on left. 10/18 colonoscopy [facility] 3 3-[address] colon-polypoid mucosa mild hyperplastic changes. Rectal polyp= hyperplastic polyp. Dr Juan Mak [facility] (11/19 06/14 Cologuard WNL. Cardiology-Jeffrey Campos [facility]. 12/17 Carotid 50-69% left ICA stenosis. Vielka [...] PFT evidence of COPD ) 05/10 TTE @[facility] Ltjnjoufby-mggs-mkhkjr EF, mild LVH, Gr1 Feldman Dys 07/09 colonoscopy [facility]-3 & 6mm polyp--PAth--Tubular adenoma 07/09 [facility] TSH & celiac testing WNL 04/[address] [facility] SVT--resolved with adenosine. 03/11 EKG-scanned [...] as of this encounter (statuses as of 04/18/2024) Resolved Problems Problem Noted Date Diagnosed Date [...] as of this encounter (statuses as of 04/18/2024) Immunizations Name Administration Dates Next Due COVID-19 mRNA, LNP-s, No Pre serve, 2-Dose Series ([employer]) 01/24/2021,01/04/2021,06/03/2020 Hepatitis B, 20+ yrs 08/27/2009,03/30/2009,02/27 Pneumococcal [...] Michela Liu RN documented in this encounter Miscellaneous Notes * Telephone Encounter - Jonny Monaco RPh - 04/17/2024 4:42 PM EST Signed Prescriptions: Disp Refills Empagliflozin 10 MG Oral Tablet (Jardiance)90 Tab*3 Sig: Take 1Tablet by mouth in the morning.Authorizing Provider: JONNY BROUSSARDOrdering User: JONNY MONACO documented in this encounter Plan of Treatment Upcoming Encounters Date Type Department Care Team (Late st Contact Info) Description 04/19/2024 10:00 AM EST Office Visit Family [facility] [address] [place] [address] Jonny Broussard MD [address] [place] [address] 04/22/2024 1:00 PM EST Office Visit Pharmacy, [address] [place] [address] [place] [address] 04/22/2024 1:40 PM EST Pharmacy Pharmacy, [address] [place] [address] [place] [address] 05/29/2024 11:00 AM EDT Appointment Vascular Lab [address] [id number] 05/29/2024 11:30 AM EDT Appointment Vascular Lab [address] [place] [address] 05/29/2024 12:00 PM EDT Office Visit Vascular Surg [facility] [place] [address] [place] [address] Willian Rosas MD [address] [place] [address] 06/04/2024 1:30 PM EDT Office Visit Urogynecology [facility] [address] [place] [address] Cristopher Pantoja MD [address] [place] [address] 06/10/2024 11:20 AM EDT Office Visit [facility] [address] [place] [address] Jonny Broussard MD [address] [place] [address] 09/17/2024 10:00 AM EDT Imaging Radiology [address] [place] [address] 09/20/2024 12:00 PM EDT Office Visit [facility] [address] [place] [address] Jonny Broussard MD [address] [place] [address] 03/28/2025 12:00 PM EST Office Visit [facility] [address] [place] [address] Jonny Broussard MD [address] [place] [address] Health Maintenance Due Date Last Done Comments [...] 06/25/2021, Additional history exists B-12 02/25/2025 02/26/2024, 100 10/2022, 06/25/2021, Additional history exists GFR 02/25/2025 02/26/2024, 060 08/2023, 08/04/2023, Additional history exists DTap/Tdap Vaccines (3 - Td or Tdap) 04/27/2028 04/27/2018, 08/28/2008, 11/22/1994 Hepatitis C Screening Completed 06/18/2002 Hepatitis B Vaccine Completed 08/27/2009, 03/30/2009, 02/27/2009 Zoster Vaccines Completed 08/21/2019, 04/27, 08/06/2015 Colonoscopy Discontinued 10/20/2021, 08/0 06/2015, 07/24/2012, Additional history exists Pneumococcal Vaccine: [...] this encounter Medical Devices Implanted Type Area Gauge And Instrument Inspector Device Identifier Shelf Expiration Date Model / Serial / Lot Greater Than 80cm, 3mm-8mm Flora, Angiograft Pvd Saphenous Veins, Cryopreserved Implanted:Qty: 1 on 01/19/2023 by Willian Rosas MD at OR [facility] Right: Leg Upper LIFENET 07/29/2026 CV>80 / [id number] / [id number] documented as of this encounter Visit Diagnoses Diagnosis Type 2 diabetes mellitus with hemoglobin A1c goal of less than 8.0% ([facility]) Screening mammogram for breast cancer documented in [...] Advance Directives occurred with: Patient Care Teams Insulation Supervisor Relationship Specialty Start Date End Date Jonny Broussard MD [address] [place] [address] PCP - General Family Medicine 05/27/14 documented as of this encounter
--- OUTSIDE RECORDS SUMMARY | 2024-04-26 14:40 | External Medical Summary | Summary of Care ---
Author Name Unknown Organization [facility] Address [address] [place] [address] Phone [phone] Care Team Providers Care Toolroom Clerk Name Role Phone Jonny Donaldson MD Primary Care Provider + Reason for Visit * Reason Comments Acute Encounter Details Date Type Department Care Team (Late st Contact Info) Description 04/18/2024 12:40 PM EST Office Visit Family Medicine [address] [phone] Scar Bianchi MD [address] [place] [id number] Cellulitis of right leg* Allergies Active Allergy Reactions Criticality Noted Date [...] gone.. 20 Capsule 04/12/19 25 025 Active Empagliflozin 10 MG Oral Tablet (Jardiance)Indic ations:Type 2 diabetes mellitus with hemoglobin A1c goal of less than 8.0% (HCC) Take 1 Tablet by mouth in the morning. 90 Tablet 3 04/17/19 25 Active Torsemide 100 MG Oral Tablet (Demadex)Indicat ions:Cellulitis of right leg Take 1 Tablet by mouth in the morning for 3 days. 3 Tablet 04/18/19 25 025 Active Cefuroxime Axetil 500 MG Oral Tablet (Ceftin)Indicati ons:Cellulitis of right leg Take 1 Tablet by mouth in the morning and 1 Tablet before bedtime. Do all this for 10 days. 20 Tablet 04/18/19 25 025 Active Chlorhexidine Gluconate 4 % External Solution (Hibiclens) Apply to legs during shower twice a week 236 mL 1 10/05/19 24 025 Discontin ued(Patie nt preferenc e/discont inuation) Nitrofurantoin Monohyd Macro 100 MG Oral Capsule (Macrobid) Take 1 Capsule by mouth in the morning and 1 Capsule before bedtime. Do all this for 7 days. With food until gone. 14 Capsule 02/07/20 24 024 Discontin ued(End of Procedure ) Furosemide 20 MG Oral Tablet (Lasix)Indicatio ns:Leg edema Take 1 Tablet by mouth in the morning. 3 Tablet 04/13/19 25 025 Discontin ued(End of Procedure ) Hospital, Clinic, or Other Facility Administered Medication [...] Whyte [facility] Farrukh. History of nonmelanoma skin cancer 05/25/2022 Overview [...] disease) 06/27/2013 Overview (06/27/2013): 06/24/13 +CP-abnormal stress->cath @[facility]. 100% occlusion RCA with left- [...] Overview (04/25/2012): 04/20/12 AV Ablation-Dr Jeffrey Campos, [facility] Episode June 2011 around 03/12/12 [place] [facility]-P175 SVT--sched for [place] EP study Routine general medical exam ination at a health care facility 11/11/2011 Overview (03/20/2024): Cards--Dr Jeffrey Jalloh. 12/20 TTE Card [place]-normal EF mild LVH. Mild , mild-mod MR, mild TR, mild SD. Grad 1 DD 03/03/23 TTE [facility] normal EF, moderate LVH. Mild hypokinesis of apical septum. 01/18 Carotid US [place] stable 50-69 on left. 10/18 colonoscopy [facility] 3 3-5 polyps PATH colon-polypoid mucosa mild hyperplastic changes. Rectal polyp= hyperplastic polyp. Dr Juan Mak [facility] (11/19 06/14 Cologuard WNL. Cardiology-Jeffrey Jalloh. 12/17 [...] PFT evidence of COPD ) 05/10 TTE @[place] Xtuttepmpb-oeiz-unjptm EF, mild LVH, Gr1 Feldman Dys 07/09 colonoscopy [facility] [place]-3 & 6mm polyp--PAth--Tubular adenoma 07/09 [place] TSH & celiac testing WNL 04/11 ER [...] mRNA, LNP-s, No Pre serve, 2-Dose Series (Prestigos) 01/24/2021,01/04/2021,06/03/2020 Hepatitis B, 20+ yrs 08/27/2009,03/30/2009,02/27 Pneumococcal [...] Sign Reading Time Taken Comments Blood Pressure 124/70 04/18/2024 12:39 PM EST Pulse 88 04/18/2024 12:39 PM EST Temperature 36.1 C (97 F) 04/18/2024 12:39 PM EST Respiratory Rate - - Oxygen Saturation - - Inhaled Oxygen Concentration - - Weight - - Height - - Body Mass Index - - documented in this encounter Functional Status * Are you deaf or do you have serious difficulty hearing? Answer Date of Assessment Author No 01/19/2023 12:56 AM EST Michela Liu RN * Are you blind or do [...] documented in this encounter Progress Notes * Scar Bianchi MD - 04/18/2024 12:39 PM EST Mariia developed pain redness, swelling of right leg on 04/11, is on doxycycline and when seen in clinic on 04/13, got a shot of Rocephin as well. It is not better and the left leg is a little swollen as well. Right leg has been swollen since heart surgery in 2022 Health Maintenance addressed. Got flu shot but not recent Covid or RSV Patient Active Problem List Diagnosis DYSFUNCT EUSTACHIAN TUBE POST-NASAL DRIP NONALLERGIC RHINITIS Chronic sinusitis GENERALIZED ANXIETY DIS INFORMATION Heartburn LUMBAGO Solitary cyst of breast Tobacco use disorder Dyslipidemia, goal LDL below 100 Type 2 diabetes mellitus with diabetic nephropathy (HCC) HTN, goal below 130/80 Routine general medical examination at a health care facility SVT (supraventricular tachycardia) ([facility]) Type 2 diabetes mellitus with hemoglobin A1c goal of less than 8.0% ([facility]) DM type 2 causing neurological disease ([facility]) CAD (coronary artery disease) Heart failure, systolic, due to CAD (HCC) S/P drug eluting coronary stent placement Inguinal hernia, right Diabetic retinopathy, nonproliferative, moderate (HCC) Sensorineural hearing loss (SNHL) of both ears Diabetic macular edema of both eyes ([facility]) Type 2 diabetes mellitus with diabetic nephropathy, with long-term current use of insulin (HCC) Carpal tunnel syndrome on right PAD (peripheral artery disease) ([facility]) Other emphysema ([facility]) Carotid artery stenosis without cerebral infarction, left History of 2018 novel coronavirus disease (COVID-19) History of nonmelanoma skin cancer S/P CABG x 3 History of completed stroke Urge incontinence of urine COPD, group A, by GOLD 2017 classification ([facility]) Acute lower limb ischemia Morbid (severe) obesity due to excess calories ([facility]) Bilateral carotid artery stenosis Ulcer of toe of right foot ([facility]) Past Medical History: Diagnosis Date Allergic rhinitis Background diabetic retinopathy(362.01) 05/27/201405/[address] Montez Q6mo monitoring Benign neoplasm of colon 07/30/2010 polyps x 2--adenomatous tissue--repeat in 3 yrs , diverticulosis & fair prep-- CAD (coronary artery disease) 06/27/2013 06/24/13 +CP-abnormal stress->cath @[facility]. 100% occlusion RCA with left- [...] disorder Heart failure, systolic, due to CAD (HCC) 06/27/2013 Heartburn History of 2019 novel coronavirus [...] DYSRHYTHM FOCUS 04/20/2012 AV Ablation-Dr Jeffrey Campos, [facility] BREAST LESION,OTHER,EXCISION Left benign BYPASS [...] adenomatous polyps, diverticulosis, poor prep, repeat 1 yr/[facility] ENDART DEEP FEMORAL Right 01/19/2023 DEEP FEMORAL ENDARTERECTOMY performed by Willian Rosas MD [place] [facility] EXPLORATION OF MAXILLARY SINUS 06/07/2001 Sinus Surgery HYSTEROSCOPY W/BIOPSY AND/OR POLYPECTOMY W/WO D&C 02/14/2006 INFORMATION ablation INSERT NEEDLE/CATHETER, EXTREMITY ARTERY Right 06/09/2023 CATHETER INTRODUCTION, EXTREMITY ARTERY performed by Willian Rosas MD at [place] [facility] INTRODUCTION OF CATHETER, AORTA 01/19/2023 CATHETER PLACEMENT, AORTA performed by Willian Rosas MD at [place] [facility] IR ARTERIOGRAM EXTREMITY UNILATERAL Right 06/09/2023 IMAGING SUPERVISION & INTERPRETATION EXTREMITY UNILATERAL performed by Willian Rosas MDat [place] [facility] LAP;OCCULSION OVIDUCTS/DEVICE 1985 LIGATE/CUT OVIDUCT(S) tubal ligation -rings SD CORONARY ARTERY BYP W/VEIN & ARTERY GRAFT [...] TISSUE performed by Willian Rosas MD at [facility] SURGICAL PROCEDURE ONLY Left 08/24/2023 Remove a cyst on left chest wall by Dr. Darnell Curiel. SYNTH BYPASS, FEMORAL-POP Right 01/19/2023 BYPASS GRAFT OTHER THAN VEIN FEMORAL POPLITEAL performed by Willian Rosas MD at [place] [facility] TOTAL ABD HYSTERECTOMY W/WO REMOVAL OF TUBE(S) 06/23/2008 & oopherectomy VAGINAL DELIVERY ONLY VENOGRAM EXTREMITY UNI-FLUOR Right 01/19/2023 IMAGING SUPERVISION & INTERPRETATION EXTREMITY VEIN performed by Willian Rosas MD at [facility] . Review of patient's allergies indicates: Allergen Reactions Nickel Anaphylaxis Cephalexin rash Doxepin Dust Paroxetine generic only, brand ok Penicillins Rash Sulfa Antibiotics Rash Social History Socioeconomic History Marital status: Spouse name: Efrem Number of children: 1 Years of education: 12 Highest education level: Not on file Occupational History Occupation: retired. Employer: [employer] 1157 Comment: [employer] [facility] Tobacco Use Smoking status: Former Current packs/day: 0.00 Average packs/day: 0.9 packs/day for 40.0 years (36.0 ttl pk-yrs) Types: Cigarettes Start date: 12/08/1981 Quit date: 12/08/2021 Years since quittin.3 Smokeless tobacco: Never Tobacco comments: 10/04/2019 smokes 15 cigarettes per day on booklet and patches Vaping Use Vaping status: Never Used Substance and Sexual Activity Alcohol use: Yes Comment: very rare Drug use: No Sexual activity: Yes Partners: Male control/protection: Surgical Comment: tubal. [id number]+. 1 daughter 28Y Other Topics Concern Service [...] Entered By: Onur Salinas MD 11/05/2003 Social Needs Financial Resource Strain: Not on file Food Insecurity: No Food Insecurity (01/19/2023) Food Insecurity Do you need food for this week? (Adult - for ages 18 years and over): No Are you able to get enough food for your family? (Household - for ages 0-17 years): Not on file Does your family need food this week? (Household - for ages 0-17 years): Not on file Do you always have enough food for your family? (Household - for ages 0-17 years): Not on file Transportation Needs: No Transportation Needs (01/19/2023) Transportation Needs Do you have trouble getting a ride to medical visits or work? (Adult - for ages 18 years and over):Never True Does your family have a hard time getting a ride to doctors visits? (Household - for ages 0-17 years): Not on file Has lack of transportation kept you from medical appointments, meetings, work, or from getting things needed for daily living? Check all that apply. (Adult - for ages 18 years and over): Not on file Do you (or your family) have trouble finding or paying for a ride (transportation)? (Household - for ages 0-17 years): Not on file Social Connections: Not on file Housing Stability: Low Risk (01/19/2023) Housing Stability Do you currently live in a detention or have no steady place to sleep at night? (Adult - for ages 18 years and over): Not on file Do you think you are at risk of becoming homeless? (Adult - for ages 18 years and over): No Does your family worry about paying for your home or becoming homeless? (Household - for ages 0-17 years): Not on file Are you homeless or worried that you might be in the future? (Adult - for ages 18 years and over): Not on file Are you (or your family) homeless or worried that you might be in the future? (Household - for ages0-17 years): Not on file Lab Results Component Value Date/Time HEMOGLOBIN A1C - [facility] 7.6 (H) 02/26/2024 09:32 AM HEMOGLOBIN A1C - [facility] 9.1 (H) 07/05/2023 11:41 AM HEMOGLOBIN A1C - [facility] 11.7 (H) 12/05/2022 02:21 PM HEMOGLOBIN A1C - [facility] 8.5 (H) 11/21/2019 08:37 AM HEMOGLOBIN A1C - [facility] 9.6 (H) 08/03/2015 10:06 AM HEMOGLOBIN A1C - [facility] 12.8 (H) 11/11/2011 03:30 PM HEMOGLOBIN A1C POCT - [facility] 7.9 (H) 10/13/2023 10:20 AM HEMOGLOBIN A1C POCT - [facility] 11.4 (H) 04/05/2023 10:47 AM She might benefit from bumping the Jardiance up to 25 mg O: Blood pressure 124/70, pulse 88, temperature 97 F (36.1 C), temperature source Tympanic, last menstrual period 03/13/2008. The right calf is 46 cm, left is 41 cm. The has tense skin and the right is much redder with red blotches almost up to the knee but no open sores or drainage. A: Cellulitis of right leg (Primary) - BNP, NT-PRO; Future; Expected date: 04/18/2024 - COMPREHENSIVE METABOLIC PANEL; Future; Expected date: 04/18/2024 - D-DIMER; Future; Expected date: 04/18/2024 - Torsemide 100 MG Oral Tablet (Demadex); Take 1 Tablet by mouth in the morning for 3 days. - Cefuroxime Axetil 500 MG Oral Tablet (Ceftin); Take 1 Tablet by mouth in the morning and 1 Tabletbefore bedtime. Do all this for 10 days. - cefTRIAXone (Rocephin) (350 mg/mL) inj dilution 1,000 mg Follow-up: Return if symptoms worsen or fail to improve. | Check-out note: Keep Damaske appt tomorrow documented in this encounter Nursing Notes * Megan Espinosa LPN - 04/18/2024 12:38 PM EST Ongoing pain and swelling from cellulitis in right leg Swelling in left leg also Given Rocephin at weekend clinic & taking doxy. documented in this encounter Plan of Treatment Upcoming Encounters Date Type Department Care Team (Late st Contact Info) Description 04/19/2024 10:00 AM EST Office Visit Family [facility] [address] [place] [address] Jonny Donaldson MD [address] [place] [address] 04/22/2024 1:00 PM EST Office Visit Pharmacy, [address] [place] [address] [place] [address] 04/22/2024 1:40 PM EST Pharmacy Pharmacy, [address] [place] [address] [place] [address] 05/29/2024 11:00 AM EDT Appointment Vascular Lab [address] [address] 05/29/2024 11:30 AM EDT Appointment Vascular Lab [address] [address] 05/29/2024 12:00 PM EDT Office Visit Vascular Surg [address] [address] Willian Rosas MD [facility] [place] [address] 06/04/2024 1:30 PM EDT Office Visit Urogynecology [facility] [address] [place] [address] Cristopher Pantoja MD [address] [place] [address] 06/10/2024 11:20 AM EDT Office Visit [facility] [address] [place] [address] Jonny Donaldson MD [address] [place] [address] 09/17/2024 10:00 AM EDT Imaging Radiology [address] [place] [address] 09/20/2024 12:00 PM EDT Office Visit [facility] [address] [place] [address] Jonny Donaldson MD [address] [place] [address] 03/28/2025 12:00 PM EST Office Visit [facility] [address] [place] [address] Jonny Donaldson MD [address] [place] [address] Pending Results Name Type Priority Associated Diagnoses Date /Time BNP, NT-PRO Lab Routine Cellulitis of right leg 04/18/2024 1:12 PM EST COMPREHENSIVE METABOLIC PANEL Lab Routine Cellulitis of right leg 04/18/2024 1:12 PM EST D-DIMER Lab Routine Cellulitis of right leg 04/18/2024 1:12 PM EST Scheduled Orders Name Type Priority Associated Diagnoses Orde r Schedule BNP, NT-PRO Lab Routine Cellulitis of right leg Expected: 04/18/2024 (Approximate), Expires: 04/18/2025 COMPREHENSIVE METABOLIC PANEL Lab Routine Cellulitis of right leg Expected: 04/18/2024 (Approximate), Expires: 04/18/2025 D-DIMER Lab Routine Cellulitis of right leg Expected: 04/18/2024 (Approximate), Expires: 04/18/2025 Health Maintenance Due Date Last Done Comments [...] 06/25/2021, Additional history exists GFR 02/25/2025 02/26/2024, 0 08/2023, 08/04/2023, Additional history exists DTap/Tdap Vaccines [...] this encounter Medical Devices Implanted Type Area Barrel Driller Device Identifier Shelf Expiration Date Model / Serial / Lot Greater Than 80cm, 3mm-8mm Flora, Angiograft Pvd Saphenous Veins, Cryopreserved Implanted:Qty: 1 on 01/19/2023 by Willian Rosas MD at [facility] Right: Leg Upper LIFENET 07/29/2026 CV>80 / [id number] / [id number] documented as of this encounter Visit Diagnoses Diagnosis Cellulitis of right leg- Primary Cellulitis and abscess of leg, except foot Screening mammogram for breast cancer documented in this encounter Administered Medications Active Administered Medications - up to 3 most recent administrations Medication Order MAR Action Action Date Dose Rate Site cefTRIAXone (Rocephin) (350 mg/mL) inj dilution 1,000 mg 1,000 mg (1 g), Intramuscular, Q24H, First dose on 04/13/24 at 1215, Until DiscontinuedIndications :Cellulitis of right leg Given 04/18/2024 1:06 PM EST 1,000 mg Dorsogluteal Left Given 04/13/2024 11:39 AM EST 1,000 mg D orsogluteal Right documented in this encounter Advance Directives * [...] Advance Directives occurred with: Patient Care Teams Toolroom Clerk Relationship Specialty Start Date End Date Jonny Donaldson MD [address] [place] [address] PCP - General Family Medicine 05/27/14 documented as of this encounter"
--- OUTSIDE RECORDS SUMMARY | 2024-04-26 14:40 | External Medical Summary | Summary of Care ---
Author Name Unknown Organization [facility] Address [address] [place] [address] Phone [phone] Care Team Providers Care Diagnostic Tech Name Role Phone Jonny Donaldson MD Primary Care Provider + Reason for Visit * Reason Comments Outpatient Testing Encounter Details Date Type Department Care Team (Late st Contact Info) Description 04/18/2024 1:20 PM EST Laboratory Laboratory [address] [place] [phone] [place] [address] Cellulitis of right leg Allergies Active Allergy Reactions Criticality Noted Date [...] the morning. 90 Tablet 3 5 Active Torsemide 100 MG Oral Tablet (Demadex)Indicat ions:Cellulitis of right leg Take 1 Tablet by mouth in the morning for 3 days. 3 Tablet 5 025 Active Cefuroxime Axetil 500 MG Oral [...] of the RCA 04/27/[address] Whyte [facility]. History of nonmelanoma skin [...] disease) 06/27/2013 Overview (06/27/2013): 06/24/13 +CP-abnormal stress->cath @[facility]. 100% occlusion RCA with left- [...] Overview (04/25/2012): 04/20/12 AV Ablation-Dr Jeffrey Campos, [facility] Episode June 2011 around 03/12/12 [facility]-P175 SVT--sched for [place] EP study Routine general medical exam ination at a health care facility 11/11/2011 Overview (03/20/2024): Cards--Dr Jeffrey Campos [place]. 12/20 TTE Card [place]-normal EF mild LVH. Mild , mild-mod MR, mild TR, mild RI. Grad 1 DD 03/03/23 TTE [facility] normal EF, moderate LVH. Mild hypokinesis of apical septum. 01/18 Carotid US [place] stable 50-69 on left. 10/18 colonoscopy [facility] 3 3-5 polyps [address] colon-polypoid mucosa mild hyperplastic changes. Rectal polyp= hyperplastic polyp. Dr Juan Mak [facility] (11/19 06/14 Cologuard WNL. Cardiology-Jeffrey Oscarpayal [place]. 12/17 Carotid 50-69% left ICA stenosis. 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 03/11 EKG-scanned QTc [...] mRNA, LNP-s, No Pre serve, 2-Dose Series (SUPENTA) 01/24/2021,01/04/2021,06/03/2020 Hepatitis B, 20+ yrs 08/27/2009,03/30/2009,02/27 Pneumococcal [...] the money to buy more. Never true 10/20/20 23 Within the past 12 months, t [...] Michela Liu RN documented in this encounter Plan of Treatment Upcoming Encounters Date Type Department Care Team (Late st Contact Info) Description 04/19/2024 10:00 AM EST Office Visit Family Practice [facility] [address] [place] [address] Jonny Donaldson MD [address] [place] [address] 04/22/2024 1:00 PM EST Office Visit Pharmacy, [address] [place] [address] [place] [address] 04/22/2024 1:40 PM EST Pharmacy Pharmacy, [address] [place] [address] [place] [address] 05/29/2024 11:00 AM EDT Appointment Vascular Lab [address] [address] 05/29/2024 11:30 AM EDT Appointment Vascular Lab [address] [address] 05/29/2024 12:00 PM EDT Office Visit Vascular Surg [place] [address] [place] [address] Willian Rosas MD [address] [place] [address] 06/04/2024 1:30 PM EDT Office Visit Urogynecology [facility] [address] [address] Cristopher Pantoja MD [address] [place] [address] 06/10/2024 11:20 AM EDT Office Visit [facility] [address] [place] [address] Jonny Donaldson MD [address] [place] [address] 09/17/2024 10:00 AM EDT Imaging Radiology [address] [place] [address] 09/20/2024 12:00 PM EDT Office Visit [facility] [address] [place] [address] Jonny Donaldson MD [address] [place] [address] 03/28/2025 12:00 PM EST Office Visit [facility] [address] [place] [address] Jonny Donaldson MD [address] [place] [address] Pending Results Name Type Priority Associated Diagnoses Date /Time BNP, NT-PRO Lab Routine Cellulitis of right leg 04/18/2024 1:12 PM EST COMPREHENSIVE METABOLIC PANEL Lab Routine Cellulitis of right leg 04/18/2024 1:12 PM EST D-DIMER Lab Routine Cellulitis of right leg 04/18/2024 1:12 PM EST Health Maintenance Due Date Last Done [...] 06/25/2021, Additional history exists GFR 02/25/2025 02/26/2024, 06/0 08/2023, 08/04/2023, Additional history exists DTap/Tdap Vaccines [...] this encounter Medical Devices Implanted Type Area Bistro Server Device Identifier Shelf Expiration Date Model / Serial / Lot Greater Than 80cm, 3mm-8mm Flora, Angiograft Pvd Saphenous Veins, Cryopreserved Implanted:Qty: 1 on 01/19/2023 by Willian Rosas MD at [facility] Right: Leg Upper LIFENET 07/29/2026 CV>80 / [id number] / [id number] documented as of this encounter Visit Diagnoses Diagnosis Cellulitis of right leg Cellulitis and abscess of leg, except foot [...] Advance Directives occurred with: Patient Care Teams Diagnostic Tech Relationship Specialty Start Date End Date Jonny Donaldson MD [address] [place] [address] PCP - General Family Medicine 05/27/14 documented as of this encounter
--- OUTSIDE RECORDS SUMMARY | 2024-04-26 14:40 | External Medical Summary ---
Author Name Unknown Address Unknown Organization K01:[facility] [place] [address] [facility] [place] [address] Laboratory Report Ordering Provider Test Date Status [place] [facility] 04/18/2024 13:12:28 Final Rheumatoid factor at a level above 50 IU/mL may lead to an overestimation of the D-dimer level. A normal D-dimer result (<0.50 ug/mL FEU) has a negative predictive value of approximately 95% for the exclusion of acute pulmonary embolism (PE) or deep vein thrombosis when there is low or moderate pretest PE probability. Increased D-dimer values are abnormal but do not indicate a specific disease state and the D-dimer increase does not definitively correlate with clinical severity of disease. Observation Date Value Abnormality Reference (Units ) Status Fibrin D-dimer FEU [Mass/volume] in Platelet poor plasma by Immunoassay 04/18/2024 13:12:28 0.30 <0.50 (ug/mL FEU) Final Performing Location [facility] [place] [place] [address]
--- OUTSIDE RECORDS SUMMARY | 2024-04-26 14:40 | External Medical Summary | Summary of Care ---
Author Name Unknown Organization [facility] Address [address] [place] [address] Phone [phone] Care Team Providers Care Manager Business Planning Name Role Phone Jonny Donaldson MD Primary Care Provider + Reason for Visit * Reason Comments Outpatient Testing Encounter Details Date Type Department Care Team (Late st Contact Info) Description 04/18/2024 1:20 PM EST Laboratory Laboratory [address] [place] [phone] [place] [address] Cellulitis of right leg Allergies Active Allergy [...] of the RCA 04/27/[address] Whyte [facility]. History of nonmelanoma skin cancer 05/25/2022 [...] disease) 06/27/2013 Overview (06/27/2013): 06/24/13 +CP-abnormal stress->cath @[facility]. 100% occlusion RCA with left- right [...] Medical Center Episode June 2011 around 03/12/12 [place] hosp-P175 SVT--sched for [place] EP study Routine general medical exam ination at a health care facility 11/11/2011 Overview (03/20/2024): Cards--Dr Jeffrey Campos [facility] [place]. 12/20 TTE Card [facility]-normal EF mild LVH. Mild , mild-mod MR, mild TR, mild NV. Grad 1 DD 03/03/23 TTE [facility] normal EF, moderate LVH. Mild hypokinesis of apical septum. 01/18 Carotid US [facility] [place] stable 50-69 on left. 10/18 colonoscopy [facility] 3 3-5 polyps PATH colon-polypoid mucosa mild hyperplastic changes. Rectal polyp= hyperplastic polyp. Dr Juan Mak [facility] (11/19 06/14 Cologuard WNL. Cardiology-Jeffrey Oscarpayal [place]. 12/17 Carotid 50-69% left ICA stenosis. Vielka [...] PFT evidence of COPD ) 05/10 TTE @[facility] Mndxbikncz-oesx-dbzvck EF, mild LVH, Gr1 Feldman Dys 07/09 colonoscopy [facility] Endoscopy [place]-3 & 6mm polyp--PAth--Tubular adenoma 07/09 [place] TSH & celiac testing WNL 04/11 ER visit [facility] SVT--resolved with adenosine. 03/11 EKG-scanned QTc 414 [...] mRNA, LNP-s, No Pre serve, 2-Dose Series (XM [employer]) 01/24/2021,01/04/2021,06/03/2020 Hepatitis B, 20+ yrs 08/27/2009,03/30/2009,02/27 Pneumococcal [...] 10:00 AM EST Office Visit Family Practice [facility] [address] [place] [address] Jonny Donaldson MD [address] [place] [address] 04/22/2024 1:00 PM EST Office Visit Pharmacy, [address] [place] [address] [place] [address] 04/22/2024 1:40 PM EST Pharmacy Pharmacy, [address] [place] [address] [place] [address] 05/29/2024 11:00 AM EDT Appointment Vascular Lab [address] [address] 05/29/2024 11:30 AM EDT Appointment Vascular Lab [address] [address] 05/29/2024 12:00 PM EDT Office Visit Vascular Surg [place] [address] [place] [address] Willian Rosas MD [address] [place] [address] 06/04/2024 1:30 PM EDT Office Visit Urogynecology [facility] [address] [address] Cristopher Pantoja MD [address] [place] [address] 06/10/2024 11:20 AM EDT Office Visit [facility] [address] [place] [address] Jonny Donaldson MD [address] [place] [address] 09/17/2024 10:00 AM EDT Imaging Radiology [address] [place] [address] 09/20/2024 12:00 PM EDT Office Visit [facility] [address] [place] [address] Jonny Donaldson MD [address] [place] [address] 03/28/2025 12:00 PM EST Office Visit [facility] [address] [place] [address] Jonny Donaldson MD [address] [place] [address] Pending Results Name Type Priority Associated Diagnoses [...] this encounter Medical Devices Implanted Type Area Plate Painter Apprentice Device Identifier Shelf Expiration Date Model / Serial / Lot Greater Than 80cm, 3mm-8mm Flora, Angiograft Pvd Saphenous Veins, Cryopreserved Implanted:Qty: 1 on 01/19/2023 by Willian Rosas MD at [facility] Right: Leg Upper LIFENET 07/29/2026 CV>80 / [id number] / [id number] documented as of this encounter Visit [...] Advance Directives occurred with: Patient Care Teams Manager Business Planning Relationship Specialty Start Date End Date Jonny Donaldson MD [address] [place] [address] PCP - General Family Medicine 05/27/14 documented as of this encounter
--- OUTSIDE RECORDS SUMMARY | 2024-04-26 14:41 | External Medical Summary | Summary of Care ---
Author Name Unknown Organization [facility] Address [address] [place] [address] Phone [phone] Care Team Providers Care Control Room Tender Name Role Phone Jonny Donaldson MD Primary Care Provider + Reason for Visit * Reason Onset Date Comments Appointment 04/13/2024 Encounter Details Date Type Department Care Team (Late st Contact Info) Description 04/13/2024 Telephone Family Practice [facility] [address] [facility] [address] Jonny Donaldson MD [address] [facility] [address] Appointment Allergies Active Allergy Reactions Criticality Noted Date Comments Cephalexin 01/28/1996 rash Doxepin 02/01/2018 Dust 04/04/2001 Nickel Anaphylaxis High 04/04/2001 Paroxetine 04/28/2003 generic only, brand ok Penicillins 03/03/1995 Rash Sulfa Antibiotics 11/27/1994 Rash documented as of this encounter (statuses as of 04/15/2024) Medications ASPIRIN EC 81 MG PO TBECIndications: [...] shower twice a week 236 mL 1 4 Active Additional Information Patient not taking.Reported on [...] day E11.9 100 Strip 11 4 Active Empagliflozin 10 MG Oral Tablet (Jardiance)Indic ations:Type 2 diabetes mellitus with hemoglobin A1c goal of less than 8.0% (HCC) Take 1 Tablet by mouth in the morning. 90 Tablet 4 Active BD Pen Needle Tanja U/F [...] skin fold until rash improved. 30 g 5 Active Gabapentin 600 MG Oral Tablet [...] Until gone.. 20 Capsule 5 025 Active Furosemide 20 MG Oral Tablet (Lasix)Indicatio ns:Leg edema Take 1 Tablet by mouth in the morning. 3 Tablet 5 Active Hospital, Clinic, or Other Facility Administered Medication Ordered Dose Route Frequency Start Date End Date Status cefTRIAXone (Rocephin) (350 mg/mL) inj dilution 1,000 mgIndications:Cellulitis of right leg 1000 mg IM Q24H 04/13/2024 Active documented as of this encounter (statuses as of 04/15/2024) Active Problems Problem Noted Date Diagnosed Date [...] of the RCA 04/27/[address] Whyte [facility]. History of nonmelanoma skin cancer 05/25/2022 Overview [...] disease) 06/27/2013 Overview (06/27/2013): 06/24/13 +CP-abnormal stress->cath @[facility]. [...] Overview (04/25/2012): 04/20/12 AV Ablation-Dr Jeffrey Campos, [facility] Episode June 2011 around 03/12/12 [place] [facility]-P175 SVT--sched for [place] EP study Routine general medical exam ination at a health care facility 11/11/2011 Overview (03/20/2024): Cards--Dr Jeffrey Campos [place]. 12/20 TTE Card [place]-normal EF mild LVH. Mild , mild-mod MR, mild TR, mild [place]. Grad 1 DD 03/03/23 TTE [facility] normal EF, moderate LVH. Mild hypokinesis of apical septum. 01/18 Carotid US [place] stable 50-69 on left. 10/18 colonoscopy [facility] 3 3-5 polyps PATH colon-polypoid mucosa mild hyperplastic changes. Rectal polyp= hyperplastic polyp. Dr Juan Mak [facility] (11/19 06/14 Cologuard WNL. Cardiology-Jeffrey Campos [place]. 12/17 Carotid 50-69% left ICA stenosis. 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 Feldman Dys 07/09 colonoscopy [facility] Endoscopy [place]-3 & 6mm polyp--PAth--Tubular adenoma 07/09 [place] TSH & celiac testing WNL 04/11 ER [...] as of this encounter (statuses as of 04/15/2024) Resolved Problems Problem Noted Date Diagnosed Date [...] as of this encounter (statuses as of 04/15/2024) Immunizations Name Administration Dates Next Due COVID-19 [...] encounter Miscellaneous Notes * Telephone Encounter - Azul KunzPER - 04/15/2024 11:12 AM EST Called and spoke with pt only thing I could schedule for her was this Monday at 10am for a 20 min appt for a f/u for medication * Telephone Encounter - Milli Del Castillo OSA - 04/13/2024 11:52 AM EST F/U with Dr. Donaldson here in 3 days if possible. I tried to schedule as per follow up notes. I was unable to find an open time or date. Please advise. Thank you documented in this encounter Plan of Treatment Upcoming Encounters Date Type Department Care Team (Late st Contact Info) Description 04/19/2024 10:00 AM EST Office Visit [facility] [address] [place] [address] Jonny Donaldson MD [address] [place] [address] 04/22/2024 1:00 PM EST Office Visit Pharmacy, [address] [place] [address] [place] [address] 04/22/2024 1:40 PM EST Pharmacy Pharmacy, [address] [place] [address] [place] [address] 05/29/2024 11:00 AM EDT Appointment Vascular Lab [address] [address] 05/29/2024 11:30 AM EDT Appointment Vascular Lab [address] [address] 05/29/2024 12:00 PM EDT Office Visit Vascular Surg [facility], [address] [address] Willian Rosas MD [address] [place] [facility] [place] [address] 06/04/2024 1:30 PM EDT Office Visit Urogynecology [facility] [address] [place] [address] Cristopher Pantoja MD [address] [place] [address] 06/10/2024 11:20 AM EDT Office Visit [facility] [address] [place] [address] Jonny Donaldson MD [address] [place] [address] 09/17/2024 10:00 AM EDT Imaging Radiology [address] [place] [address] 09/20/2024 12:00 PM EDT Office Visit [facility] [address] [place] [address] Jonny Donaldson MD [address] [place] [address] 03/28/2025 12:00 PM EST Office Visit [facility] [address] [place] [address] Jonny Donaldson MD [address] [facility] [place] [address] Health Maintenance Due Date Last Done Comments [...] 06/25/2021, Additional history exists B-12 02/25/2025 02/26/2024, 10/0 10/2022, 06/25/2021, Additional history exists GFR 02/25/2025 [...] this encounter Medical Devices Implanted Type Area Woods Manager Device Identifier Shelf Expiration Date Model / Serial / Lot Greater Than 80cm, 3mm-8mm Flora, Angiograft Pvd Saphenous Veins, Cryopreserved Implanted:Qty: 1 on 01/19/2023 by Willian Rosas MD [place] [facility] Right: Leg Upper LIFENET 07/29/2026 CV>80 / [id number] / [id number] documented as of this encounter Advance Directives * Full Code (Latest Code Status on File) Date Activated Date Inactivated Comments 01/19/2023 4:32 PM 01/21/2023 6:11 PM This orde r reflects the patients wishes and were consensually agreed upon. Question Answer Comments Discussion of Advance Directives occurred with: Patient * Full Code Date Activated Date Inactivated Comments 01/19/2023 12:14 AM 01/19/2023 4:32 PM This orde r reflects the patients wishes and were consensually agreed upon. Question Answer Comments Discussion of Advance Directives occurred with: Patient Care Teams Control Room Tender Relationship Specialty Start Date End Date Jonny Donaldson MD [address] [place] [address] PCP - General Family Medicine 05/27/14 documented as of this encounter
--- OUTSIDE RECORDS SUMMARY | 2024-04-26 14:41 | External Medical Summary | Summary of Care ---
Author Name Unknown Organization [facility] Address [address] [place] [address] Phone [phone] Care Team Providers Care Computer Engineering Technician Name Role Phone Jonny Broussard MD Primary Care Provider + Reason for Visit * Reason Onset Date Comments Medication Refill 03/23/2024 Encounter Details Date Type Department Care Team (Late st Contact Info) Description 03/23/2024 Refill Family Practice [facility] [address] [facility] [place] [address] Jonny Broussard MD [address] [place] [address] Dyslipidemia, goal LDL below 100; Type 2 diabetes mellitus with hemoglobin A1c goal of less than 8.0% ([facility]) Allergies Active Allergy Reactions Criticality Noted Date Comments Cephalexin 01/28/1996 rash Doxepin 02/01/2018 Dust 04/04/2001 Nickel Anaphylaxis High 04/04/2001 Paroxetine 04/28/2003 generic only, brand ok Penicillins 03/03/1995 Rash Sulfa Antibiotics 11/27/1994 Rash documented as of this encounter (statuses as of 03/25/2024) Medications ASPIRIN EC 81 MG PO TBECIndications: Type II 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 90 Tablet 06/02/19 23 Active Krill Oil 1000 MG Oral Capsule Take 1 Capsule by mouth in the morning. Active AZO Cranberry 250-30 MG Oral Tablet Take by mouth daily. Active Probiotic Acidophilus Oral Tablet Chewable Take by mouth daily. Active Mupirocin 2 % External Ointment (Bactroban) 02/22/20 23 Active Rivaroxaban 2.5 MG Oral Tablet (Xarelto) Take 1 Tablet by mouth in the morning and 1 Tablet before bedtime. 60 Tablet 11 04/06/19 24 Active CoQ-10 100 MG Oral Capsule Take by mouth. Ac tive Amitriptyline HCl 50 MG Oral Tablet (Elavil)Indicati ons:Other chest pain,Neuralgia TAKE ONE TABLET BY MOUTH EVERY DAY 90 Tablet 07/10/19 24 Active Sertraline HCl 50 MG Oral Tablet (Zoloft)Indicati ons:Generalized anxiety disorder TAKE TWO TABLETS BY MOUTH EVERY MORNING 180 Tablet 07/18/19 24 Active Semaglutide (2 MG/DOSE) 8 MG/3ML Subcutaneous Solution Pen-injector (Ozempic)Indicat ions:Type 2 diabetes mellitus with hemoglobin A1c goal of less than 8.0% ([facility]) Inject 2 mg under the skin once a week. 9 mL 08/02/19 24 Active Insulin Glargine Solostar 100 UNIT/ML Subcutaneous Solution Pen-injector (Basaglar KwikPen)Indicati ons:Type 2 diabetes mellitus with hemoglobin A1c goal of less than 8.0% ([facility]) Inject 35 Units under the skin in the morning and 35 Units before bedtime. 75 mL 08/11/19 24 Active NATURAL SUPPLEMENT Take by mouth daily. Balance of nature fruits and veggie capsules Active Chlorhexidine Gluconate 4 % External Solution (Hibiclens) Apply to legs during shower twice a week 236 mL 1 10/05/19 24 Active Additional Information Patient not taking.Reported on 11/27/2023 Fiasp FlexTouch 100 UNIT/ML Subcutaneous Solution Pen-injector [...] E11.9 100 Strip 11 12/18/19 24 Active Empagliflozin 10 MG Oral Tablet (Jardiance)Indic ations:Type 2 diabetes mellitus with hemoglobin A1c goal of less than 8.0% (HCC) Take 1 Tablet by mouth in the morning. 90 Tablet 01/31/20 24 Active BD Pen Needle Tanja U/F [...] available. 60 mL 1 02/28/19 25 Active Clindamycin HCl 300 MG Oral Capsule Take 1 Capsule by mouth in the morning and 1 Capsule at noon and 1 Capsule before bedtime. For 7 days. 02/28/19 25 Active LORazepam 0.5 MG Oral [...] diabetes 270 Tablet 3 03/25/19 25 Active Atorvastatin Calcium 80 MG Oral Tablet (Lipitor)Indicat ions:Dyslipidemi a, goal LDL below 100 TAKE ONE TABLET BY MOUTH EVERY DAY 90 Tablet 12/26/19 24 025 Discontin ued(Refil l) metFORMIN HCl 850 MG Oral Tablet (Glucophage)Mirtha cations:Type 2 diabetes mellitus with hemoglobin A1c goal of less than 8.0% (HCC) TAKE ONE TABLET BY MOUTH THREE TIMES DAILY WITH MEALS diabetes 270 Tablet 12/26/19 24 025 Discontin ued(Refil l) documented as of this encounter (statuses as of 03/25/2024) Active Problems Problem Noted Date Diagnosed Date [...] disease) 06/27/2013 Overview (06/27/2013): 06/24/13 +[facility]-ab[facility] [...] Overview (04/25/2012): 04/20/12 AV Ablation-Dr Jeffrey Campos, [facility] Episode June 2011 around 03/12/12 [place] [facility]-P175 SVT--sched for [place] EP study Routine general medical exam ination at a health care facility 11/11/2011 Overview (03/20/2024): Cards--Dr Jeffrey Campos [place]. 12/20 TTE Card [place]-normal EF mild LVH. Mild , mild-mod MR, mild TR, mild HI. Grad 1 DD 03/03/23 TTE [facility] normal EF, moderate LVH. Mild hypokinesis of apical septum. 01/18 Carotid US [place] stable 50-69 on left. 10/18 colonoscopy [facility] 3 3-5 polyps [address] colon-polypoid mucosa mild hyperplastic changes. Rectal polyp= hyperplastic polyp. Dr Juan Mak [facility] (11/19 06/14 Cologuard WNL. Cardiology-Jeffrey Campos [place]. 12/17 Carotid 50-69% left ICA stenosis. Vielka [...] PFT evidence of COPD ) 05/10 TTE @[place] Iozufaojjl-zjmq-rniivo EF, mild LVH, Gr1 Feldman Dys 07/09 colonoscopy [facility] Endoscopy [place]-3 & 6mm polyp--PAth--Tubular adenoma 07/09 [place] TSH & celiac testing WNL 04/11 ER visit [facility] SVT--resolved with adenosine. 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 Overview (02/08/2013): [...] as of this encounter (statuses as of 03/25/2024) Immunizations Name Administration Dates Next Due COVID-19 mRNA, LNP-s, No Pre serve, 2-Dose Series (Bolongaro Trevor) 01/24/2021,01/04/2021,06/03/2020 Hepatitis B, 20+ yrs 08/27/2009,03/30/2009,02/27 Pneumococcal [...] encounter Miscellaneous Notes * Telephone Encounter - Quita Marcum, [facility] - 03/25/2024 11:11 AM ESTSigned Prescriptions: Disp Refills Atorvastatin Calcium 80 MG Oral Tablet (Li*90 Tab*3 Sig: Take 1 Tablet by mouth in the morning.Authorizing Provider: JONNY BROUSSARD User: QUITA MARCUM metFORMIN HCl 850 MG Oral Tablet (Glucopha*270 Ta*3 Sig: TAKE ONE TABLET BY MOUTH THREE TIMES DAILY WITH MEALS diabetesAuthorizing Provider: JONNY BROUSSARD User: QUITA MARCUM documented in this encounter Plan of Treatment Upcoming Encounters Date Type Department Care Team (Late st Contact Info) Description 04/22/2024 1:00 PM EST Office Visit Pharmacy, [address] [place] [address] [place] [address] 04/22/2024 1:40 PM EST Pharmacy Pharmacy, [address] [place] [address] [place] [address] 05/29/2024 11:00 AM EDT Appointment Vascular Lab [address] [address] 05/29/2024 11:30 AM EDT Appointment Vascular Lab [address] [address] 05/29/2024 12:00 PM EDT Office Visit Vascular Surg [address] [address] Willian Rosas MD [address] [place] [address] 06/04/2024 1:30 PM EDT Office Visit Urogynecology [facility] [address] [place] [address] Cristopher Pantoja MD [address] [place] [address] 06/10/2024 11:20 AM EDT Office Visit [facility] [address] [place] [address] Jonny Broussard MD [address] [place] [address] 09/17/2024 10:00 AM EDT Imaging Radiology [address] [place] [address] 09/20/2024 12:00 PM EDT Office Visit [facility] [address] [place] [address] Jonny Broussard MD [address] [place] [address] 03/28/2025 12:00 PM EST Office Visit [facility] [address] [place] [address] Jonny Broussard MD [address] [facility] [place] [address] Health Maintenance Due Date Last Done Comments [...] this encounter Medical Devices Implanted Type Area Post Closer Device Identifier Shelf Expiration Date Model / Serial / Lot Greater Than 80cm, 3mm-8mm Flora, Angiograft Pvd Saphenous Veins, Cryopreserved Implanted:Qty: 1 on 01/19/2023 by Willian Rosas MD at [place] [facility] Right: Leg Upper LIFENET 07/29/2026 CV>80 / [id number] / [id number] documented as of this encounter Visit Diagnoses Diagnosis Dyslipidemia, goal LDL below 100 Other and unspecified hyperlipidemia Type 2 diabetes mellitus with hemoglobin A1c goal of less than 8.0% ([facility]) Screening mammogram for breast cancer documented in [...] Advance Directives occurred with: Patient Care Teams Computer Engineering Technician Relationship Specialty Start Date End Date Jonny Broussard MD [address] [place] [address] PCP - General Family Medicine 05/27/14 documented as of this encounter
--- OUTSIDE RECORDS SUMMARY | 2024-04-26 14:41 | External Medical Summary | Summary of Care ---
Author Name Unknown Organization [facility] Address [address] [place] [address] Phone [phone] Care Team Providers Care Machine Milker Name Role Phone Jonny Donaldson MD Primary Care Provider + Encounter Details Date Type Department Care Team (Late st Contact Info) Description 12/26/2023 Result Scan Unspecified Department <No scans attached> Allergies Active Allergy Reactions Criticality Noted Date Comments Cephalexin 01/28/1996 rash Doxepin 02/01/2018 Dust 04/04/2001 Nickel Anaphylaxis High 04/04/2001 Paroxetine 04/28/2003 generic only, brand ok Penicillins 03/03/1995 Rash Sulfa Antibiotics 11/27/1994 Rash documented as of this encounter (statuses as of 03/22/2024) Medications ASPIRIN EC 81 MG PO TBECIndications: Type II or unspecified type diabetes mellitus with renal manifestations, uncontrolled(250 .42) ([facility]) Take one pill daily 100 Tab [...] 2 % External Ointment (Bactroban) 3 Active Rivaroxaban 2.5 MG Oral Tablet (Xarelto) Take 1 Tablet by mouth in the morning and 1 Tablet before bedtime. 60 Tablet 11 4 Active CoQ-10 100 MG Oral Capsule Take [...] Glargine Solostar 100 UNIT/ML Subcutaneous Solution Pen-injector (Grantaglgilbert Flanagan)Indicati ons:Type 2 diabetes mellitus with hemoglobin A1c [...] day E11.9 100 Strip 11 4 Active Atorvastatin Calcium 80 MG Oral Tablet (Lipitor)Indicat ions:Dyslipidemi a, goal LDL below 100 TAKE ONE TABLET BY MOUTH EVERY DAY 90 Tablet 4 Active metFORMIN HCl 850 MG Oral Tablet (Glucophage)Mirtha cations:Type 2 diabetes mellitus with hemoglobin A1c goal of less than 8.0% (HCC) TAKE ONE TABLET BY MOUTH THREE TIMES DAILY WITH MEALS diabetes 270 Tablet 4 Active documented as of this encounter (statuses as of 03/22/2024) Active Problems Problem Noted Date Diagnosed Date [...] of the RCA 04/27/[address] Whyte [facility]. History of nonmelanoma skin cancer [...] Overview (04/25/2012): 04/20/12 AV Ablation-Dr Jeffrey Campos, [facility] Episode June 2011 around 03/12/12 [facility]-P175 SVT--sched for [facility] EP study Routine general medical exam ination at a health care facility 11/11/2011 Overview (03/20/2024): Cards--Dr Jeffrey Campos [facility]. 12/20 TTE Card [facility]-normal EF mild LVH. Mild , mild-mod MR, mild TR, mild [place]. Grad 1 DD 03/03/23 TTE [facility] normal EF, moderate LVH. Mild hypokinesis of apical septum. 01/18 Carotid US [facility] stable 50-69 on left. 10/18 colonoscopy [facility] 3 3-5 poly[address] colon-polypoid mucosa mild hyperplastic changes. Rectal polyp= hyperplastic polyp. Dr Juan Mak [facility] (11/19 06/14 Cologuard WNL. Cardiology-Jeffrey Campos [facility]. 12/17 Carotid 50-69% left ICA stenosis. Vielka [...] PFT evidence of COPD ) 05/10 TTE @[facility] Getfmsnznl-zjsz-fqynhg EF, mild LVH, Gr1 Feldman Dys 07/09 colonoscopy [facility] [place]-3 & 6mm polyp--PAth--Tubular adenoma 07/09 [facility] TSH & celiac testing WNL 04/11 ER visit [facility] SVT--resolved with adenosine. 03/11 EKG-scanned QTc [...] as of this encounter (statuses as of 03/22/2024) Resolved Problems Problem Noted Date Diagnosed Date [...] as of this encounter (statuses as of 03/22/2024) Immunizations Name Administration Dates Next Due COVID-19 mRNA, LNP-s, No Pre serve, 2-Dose Series ([employer]) 01/24/2021,01/04/2021,06/03/2020 Hepatitis B, 20+ yrs 08/27/2009,03/30/2009,02/27 [...] 04/22/2024 1:00 PM EST Office Visit Pharmacy, [address] [place] [address] [place] [address] 04/22/2024 1:40 PM EST Pharmacy Pharmacy, [address] [place] [address] [place] [address] 05/29/2024 11:00 AM EDT Appointment Vascular Lab [address] [id number] 05/29/2024 11:30 AM EDT Appointment Vascular Lab [facility] [place] [address] [place] [address] 05/29/2024 12:00 PM EDT Office Visit Vascular Surg [facility] [place] [address] [place] [address] Willian Rosas MD [address] [place] [address] 06/04/2024 1:30 PM EDT Office Visit Urogynecology [facility] [address] [place] [address] Cristopher Pantoja MD [address] [place] [address] 06/10/2024 11:20 AM EDT Office Visit [facility] [address] [place] [address] Jonny Donaldson MD [address] [place] [address] 09/17/2024 10:00 AM EDT Imaging Radiology [address] [place] [address] 09/20/2024 12:00 PM EDT Office Visit [facility] [address] [place] [address] Jonny Donaldson MD [address] [place] [address] 03/28/2025 12:00 PM EST Office Visit [facility] [address] [place] [address] Jonny Donaldson MD [address] [place] [address] Health Maintenance Due Date Last Done Comments [...] , 10/12/2022, Additional history exists Albumin/Creatinine Ratio 02/25/202502/25/ 024, 12/05/2022, 06/25/2021, Additional history exists B-12 [...] this encounter Medical Devices Implanted Type Area Structures Engineer Device Identifier Shelf Expiration Date Model / Serial / Lot Greater Than 80cm, 3mm-8mm Flora, Angiograft Pvd Saphenous Veins, Cryopreserved Implanted:Qty: 1 on 01/19/2023 [place] [facility] [place]: Leg Upper LIFENET 07/29/2026 CV>80 / [id number] / [id number] documented as of this encounter Procedures Procedure Name Priority Date/Time Associated Diagnosis Comments ECHOCARDIOLOGY SCANNED RESULT 12/26/2023 documented in this encounter Results * ECHOCARDIOLOGY SCANNED RESULT (12/26/2023) 12/26/2023 us No Physician Data Unknown ECHOCARDIOLOGY Final Result documented in this encounter Advance Directives * [...] Advance Directives occurred with: Patient Care Teams Machine Milker Relationship Specialty Start Date End Date Jonny Donaldson MD [address] [place] [address] PCP - General Family Medicine 05/27/14 documented as of this encounter
--- OUTSIDE RECORDS SUMMARY | 2024-04-26 14:41 | External Medical Summary | Summary of Care ---
Author Name Unknown Organization [facility] Address [address] [place] [address] Phone [phone] Care Team Providers Care Vmware Consultant Name Role Phone Jonny Donaldson MD Primary Care Provider + Reason for Visit * Reason Comments Acute Patient is here toda y due to swelling in legs bilaterally. States on the right leg is red, warm, painful and "blotchy". States the right leg started to worsen evening. Encounter Details Date Type Department Care Team (Late st Contact Info) Description 04/13/2024 11:00 AM EST Office Visit Family Practice [facility] [address] [facility] [address] Patrice Ryan, PA-C [address] [facility] [place], [place] [id number] Cellulitis of right leg*; Leg edema; Callus of toe; Type 2 diabetes mellitus with hemoglobin A1c goal of less than 8.0% ([facility]) Allergies Active Allergy Reactions Criticality Noted Date Comments Cephalexin 01/28/1996 rash Doxepin 02/01/2018 Dust 04/04/2001 Nickel Anaphylaxis High 04/04/2001 Paroxetine 04/28/2003 generic only, brand ok Penicillins 03/03/1995 Rash Sulfa Antibiotics 11/27/1994 Rash documented as of this encounter (statuses as of 04/13/2024) Medications ASPIRIN EC 81 MG PO TBECIndications :Type II or unspecified type diabetes mellitus with renal manifestations, uncontrolled(25 0.42) (HCC) Take one pill daily 100 Tab [...] A1c goal of less than 8.0% ([facility]) Inject 2 mg under the skin once a week. 9 mL 3 08/02/19 24 Active Insulin Glargine Solostar 100 UNIT/ML Subcutaneous Solution Pen-injector (Basaglar KwkevPen)Indicat ions:Type 2 diabetes mellitus with hemoglobin A1c goal of less than 8.0% ([facility]) Inject 35 Units under the skin in [...] 24 Active Ezetimibe 10 MG Oral Tablet (Zetia)Indicati ons:Type 2 diabetes mellitus with hemoglobin A1c goal of less than 8.0% (HCC) Take 1 Tablet by mouth in the morning. 90 Tablet 3 10/25/19 24 Active OneTouch Verio w/Device KitIndications: Type 2 diabetes mellitus with hemoglobin A1c goal of less than 8.0% (HCC) Use up to 4 times a day E11.9 1 Kit 12/18/19 24 Active OneTouch UltraSoft LancetsIndicati ons:Type 2 diabetes [...] 24 Active Empagliflozin 10 MG Oral Tablet (Jardiance)Mirtha [...] 25 Active LORazepam 0.5 MG Oral Tablet (Ativan)Indicat ions:Anxiety state Take 1 Tablet by mouth every 8 hours as needed for Anxiety or Insomnia. 40 Tablet 03/18/19 25 Active traMADol HCl 50 MG Oral Tablet (Ultram)Indicat ions:Sciatica, unspecified laterality Take 1-2 Tablets by mouth every 6 hours as needed (pain). 60 Tablet 03/18/19 25 Active Ketoconazole 2 % External Cream Apply topically to affected area 2 times a day. Apply to belly skin fold until rash improved. 30 g 1 03/18/19 25 Active Gabapentin 600 MG Oral Tablet (Neurontin)Mirtha [...] days. Until gone.. 20 Capsule 04/12/19 25 2024 Active Furosemide 20 MG Oral Tablet (Lasix)Indicati ons:Leg edema Take 1 Tablet by mouth in the morning. 3 Tablet 04/13/19 Active Clindamycin HCl 300 MG Oral Capsule Take 1 Capsule by mouth in the morning and 1 Capsule at noon and 1 Capsule before bedtime. For 7 days. 02/28/19 25 2024 Discontinued Hospital, Clinic, or Other Facility Administered Medication Ordered Dose Route Frequency Start Date End Date Status cefTRIAXone (Rocephin) (350 mg/mL) inj dilution 1,000 mgIndications:Cellulitis of right leg 1000 mg IM Q24H 04/13/2024 Active documented as of this encounter (statuses as of 04/13/2024) Active Problems Problem Noted Date Diagnosed Date [...] disease) 06/27/2013 Overview (06/27/2013): 06/24/13 +CP-abnormal stress->cath @[facility]. [...] Overview (04/25/2012): 04/20/12 AV Ablation-Dr Jeffrey Campos, [facility] Episode June 2011 around 03/12/12 [facility]-P175 SVT--sched for [facility] EP study Routine general medical exam ination at a health care facility 11/11/2011 Overview (03/20/2024): Cards--Dr Jeffrey Campos [facility]. 12/20 TTE Card [facility]-normal EF mild LVH. Mild , mild-mod MR, mild TR, mild [place]. Grad 1 DD 03/03/23 TTE [facility] [place] normal EF, moderate LVH. Mild hypokinesis of apical septum. 01/18 Carotid US [facility] stable 50-69 on left. 10/18 colonoscopy [facility] 3 3-[address] colon-polypoid mucosa mild hyperplastic changes. Rectal polyp= hyperplastic polyp. Dr Juan Mak [facility] (11/19 06/14 Cologuard WNL. Cardiology-Jeffrey Campos [facility]. 12/17 Carotid 50-69% left ICA stenosis. Vielka [...] PFT evidence of COPD ) 05/10 TTE @[facility] Nrcachqnxv-csaj-gpajen EF, mild LVH, Gr1 Feldman Dys 07/09 colonoscopy [facility]-3 & 6mm polyp--PAth--Tubular adenoma 07/09 [facility] TSH & celiac testing WNL 04/11 ER visit [facility] [place] SVT--resolved with adenosine. 03/11 EKG-scanned QTc [...] as of this encounter (statuses as of 04/13/2024) Resolved Problems Problem Noted Date Diagnosed Date [...] as of this encounter (statuses as of 04/13/2024) Immunizations Name Administration Dates Next Due COVID-19 [...] Sign Reading Time Taken Comments Blood Pressure 126/72 04/13/2024 11:06 AM EST Pulse 84 04/13/2024 11:06 AM EST Temperature 36.6 C (97.9 F) 04/13/2024 11:[address] Respiratory Rate 16 04/13/2024 11:06 AM EST Oxygen Saturation - - Inhaled Oxygen Concentration - - Weight 117.5 kg (259 lb) 04/13/2024 11:06 AM EST Height 177.8 cm (5' 10") 04/13/2024 11:06 AM EST Body Mass Index 37.16 04/13/2024 11:06 AM EST documented in this encounter Functional Status * Are you deaf or do you have serious difficulty hearing? Answer Date of Assessment Author No 01/19/2023 12:56 AM EST Michela Liu RN * Are you blind or do you have serious difficulty seeing, even when wearing glasses? Answer Date of Assessment Author No 01/19/2023 12:56 AM EST Michela Liu RN * Do you have serious difficulty [...] documented in this encounter Progress Notes * Gay Magaña LPN - 04/13/2024 11:47 AM EST Pre-Administration Time Out Procedure Performed: Yes Patient Identified (Ask Name/Date of ): Yes Does the patient have a fever greater than 101 degrees today? No Patient allergic to latex? No Has the patient ever fainted after receiving an injection? No VFC Stock: No Injection(s) verified: Yes, Injection Name: Rocephin Verified Side and Site: Yes Verified Shot(s) with Parent(s)/Patient: Yes * Patrice Ryan PA-C - 04/13/2024 11:17 AM EST Images from the original note were not included. History of Present Illness Mariia Liao is a 68 year old female that presents for Acute (Patient is here today due to swelling in legs bilaterally. States on the right leg is red, warm, painful and "blotchy". States the right leg started to worsen evening. ) Started 3 days ago with acute on chronic leg swelling R>>L. Started feeling "shots of pain" RLE 2 days ago. Developed redness and skin blotches RLE yesterday. Is warm to touch. Admits leg gets a little itchy and dry at times and she scratches. Called PCP and was Rx'd doxycycline - started this morning. Denies fever. Denies SOB and chest discomfort. Weights stable per chart review. Has had vascular surgery RLE. Does follow with Podiatry d/t foot wound/callus, closed. Upcoming appt Monday she reports. DM, reports blood sugar stable. Hemoglobin AIC Results: Lab Results Component Value Date/Time HEMOGLOBIN A1C - [facility] 7.6 (H) 02/26/2024 09:32 AM Physical Exam Vitals: 04/13/24 1106 Temp: 97.9 F (36.6 C) Pulse: 84 Resp: 16 BP: 126/72 BMI: 37.16 Wt Readings from Last 3 Encounters: 04/13/24 259 lb (117.5 kg) 11/27/23 260 lb 8 oz (118.2 kg) 10/05/23 262 lb 12.8 oz (119.2 kg) Physical Exam Vitals and nursing note reviewed. Constitutional: General: She is not in acute distress. HENT: Head: Normocephalic and atraumatic. Cardiovascular: Rate and Rhythm: Normal rate and regular rhythm. Pulmonary: Effort: Pulmonary effort is normal. Breath sounds: Normal breath sounds. Musculoskeletal: Comments: 1+ pitting edema b/L LEs. Circumferential erythema and warmth RLE from ankle and 2/3 up to knee. No open wound. Callus right great toe. Neurological: Mental Status: She is alert and oriented to person, place, and time. Assessment and Plan Cellulitis of right leg (Primary) - cefTRIAXone (Rocephin) (350 mg/mL) inj dilution 1,000 mg Continue doxycycline. May apply Vaseline to skin for any itching or dryness, avoid scratching. Leg edema - Furosemide 20 MG Oral Tablet (Lasix); Take 1 Tablet by mouth in the morning. Type 2 diabetes mellitus with hemoglobin A1c goal of less than 8.0% ([facility]) Wrap-Up Check-out note: F/U with Dr. Donaldson here in 3 days if possible. Time: I spent a total of 20-29 minutes (exact time 25 mins) on the date of service in preparation, delivery, and documentation of the care provided to Mariia Liao excluding any time spent in the performance of separately billed services. documented in this encounter Nursing Notes * Gay Magaña LPN - 04/13/2024 11:12 AM EST The patient has been properly identified by confirmation of name and date of . Chief Complaint Patient presents with Acute Patient is here today due to swelling in legs bilaterally. States on the right leg is red, warm, painful and "blotchy". States the right leg started to worsen evening. documented in this encounter Plan of Treatment Upcoming Encounters Date Type Department Care Team (Late st Contact Info) Description 04/22/2024 1:00 PM EST Office Visit Pharmacy, [address] [place] [address] [place] [address] 04/22/2024 1:40 PM EST Pharmacy Pharmacy, [address] [place] [address] [place] [address] 05/29/2024 11:00 AM EDT Appointment Vascular Lab [address] [address] 05/29/2024 11:30 AM EDT Appointment Vascular Lab [address] [address] 05/29/2024 12:00 PM EDT Office Visit Vascular Surg [facility], [address] [address] Willian Rosas MD [facility] [place] [address] 06/04/2024 1:30 PM EDT Office Visit Urogynecology [facility] [address] [place] [address] Cristopher Pantoja MD [address] [place] [address] 06/10/2024 11:20 AM EDT Office Visit [facility] [address] [place] [address] Jonny Donaldson MD [address] [place] [address] 09/17/2024 10:00 AM EDT Imaging Radiology [address] [place] [address] 09/20/2024 12:00 PM EDT Office Visit [facility] [address] [place] [address] Jonny Donaldson MD [address] [place] [address] 03/28/2025 12:00 PM EST Office Visit [facility] [address] [place] [address] Jonny Donaldson MD [address] [place] [address] Health Maintenance Due Date Last Done Comments [...] this encounter Medical Devices Implanted Type Area Light Cleaner Device Identifier Shelf Expiration Date Model / Serial / Lot Greater Than 80cm, 3mm-8mm Flora, Angiograft Pvd Saphenous Veins, Cryopreserved Implanted:Qty: 1 on 01/19/2023 by Willian Rosas MD at OR [facility] Right: Leg Upper LIFENET 07/29/2026 CV>80 / [id number] / [id number] documented as of this encounter Visit Diagnoses Diagnosis Cellulitis of right leg- Primary Cellulitis and abscess of leg, except foot Leg edema Edema Callus of toe Type 2 diabetes mellitus with hemoglobin A1c goal of less than 8.0% ([facility]) Screening mammogram for breast cancer documented in this encounter Administered Medications Active Administered Medications - up to 3 most recent administrations Medication Order MAR Action Action Date Dose Rate Site cefTRIAXone (Rocephin) (350 mg/mL) inj dilution 1,000 mg 1,000 mg (1 g), Intramuscular, Q24H, First dose on 04/13/24 at 1215, Until DiscontinuedIndications :Cellulitis of right leg Given 04/13/2024 11:39 AM EST 1,000 mg Dorsogluteal Right documented in this encounter Advance Directives [...] Advance Directives occurred with: Patient Care Teams Vmware Consultant Relationship Specialty Start Date End Date Jonny Donaldson MD [address] [place] [address] PCP - General Family Medicine 05/27/14 documented as of this encounter
--- OUTSIDE RECORDS SUMMARY | 2024-04-26 14:42 | External Medical Summary | Summary of Care ---
Author Name Unknown Organization [facility] Address [address] [place] [address] Phone [phone] Care Team Providers Care Banking Services Officer Name Role Phone Jonny Donaldson MD Primary Care Provider + Reason for Visit * Reason Comments Dosage Adjustment In Person (Anticoag Cl inic) Diabetes Follow-Up Encounter Details Date Type Department Care Team (Late st Contact Info) Description 03/08/2024 8:50 AM EST Office Visit Pharmacy, [address] [place] [id number] [place] [address] Type 2 diabetes mellitus with hemoglobin A1c goal of less than 8.0% ([facility])* Allergies Active Allergy Reactions Criticality Noted Date Comments Cephalexin 01/28/1996 rash Doxepin 02/01/2018 Dust 04/04/2001 Nickel Anaphylaxis High 04/04/2001 Paroxetine 04/28/2003 generic only, brand ok Penicillins 03/03/1995 Rash Sulfa Antibiotics 11/27/1994 Rash documented as of this encounter (statuses as of 03/08/2024) Medications ASPIRIN EC 81 MG PO TBECIndications: Type II or unspecified type diabetes mellitus with renal manifestations, uncontrolled(250 .42) ([facility]) Take one pill daily 100 Tab 3 [...] before bedtime. 75 mL 3 4 Active LORazepam 0.5 MG Oral Tablet (Ativan)Indicati ons:Anxiety state Take 1 Tablet by mouth every 8 hours as needed for Anxiety or Insomnia. 40 Tablet 4 Active NATURAL SUPPLEMENT Take by mouth daily. Balance of nature fruits and veggie capsules Active Chlorhexidine Gluconate 4 % External Solution (Hibiclens) Apply to legs during shower twice a week 236 mL 1 4 Active Additional Information Patient not taking.Reported on 11/27/2023 traMADol HCl 50 MG Oral Tablet (Ultram)Indicati ons:Sciatica, unspecified laterality Take 1-2 Tablets by mouth every 6 hours as needed (pain). 60 Tablet 4 Active Fiasp FlexTouch 100 UNIT/ML Subcutaneous Solution [...] WITH MEALS diabetes 270 Tablet 4 Active Gabapentin 600 MG Oral Tablet (Neurontin)Indic ations:Leg cramping,Restles s legs syndrome TAKE 1 TABLET IN THE MORNING, 1 TABLET AT NOON AND 1 TABLET BEFORE BEDTIME; INCREASE DOSE 04/07/23 90 Tablet 5 4 Active Ketoconazole 2 % External Cream Apply topically to affected area 2 times a day. Apply to belly skin fold until rash improved. 30 g 1 4 Active Empagliflozin 10 MG Oral Tablet [...] until available. 60 mL 1 5 Active Clindamycin HCl 300 MG Oral Capsule Take 1 Capsule by mouth in the morning and 1 Capsule at noon and 1 Capsule before bedtime. For 7 days. 5 Active documented as of this encounter (statuses as of 03/08/2024) Active Problems Problem Noted Date Diagnosed Date [...] disease) 06/27/2013 Overview (06/27/2013): 06/24/13 +CP-abnormal stress->cath @[facility]. 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 [...] Medical Center Episode June 2011 around 03/12/12 [facility]-[id number] SVT--sched for [facility] EP study Routine general medical exam ination at a health care facility 11/11/2011 Overview (07/05/2023): Cards--Dr Jeffrey Campos [facility]. 03/03/23 TTE [facility] normal EF, moderate LVH. Mild hypokinesis of apical septum. 01/18 Carotid US [place] stable 50-69 on left. 10/18 colonoscopy [facility] 3 3-[address] colon-polypoid mucosa mild hyperplastic changes. Rectal polyp= hyperplastic polyp. Dr Juan Mak [facility] (11/19 06/14 Cologuard WNL. Cardiology-Jeffrey Jalloh. [...] PFT evidence of COPD ) 05/10 TTE @[facility] Amiorfbxuf-eqhl-itvshl EF, mild LVH, Gr1 Feldman Dys 07/09 colonoscopy [facility] Endoscopy [place]-3 & 6mm polyp--PAth--Tubular adenoma 07/09 [facility] TSH & celiac testing WNL 04/11 ER visit [facility] SVT--resolved with adenosine. 03/11 EKG-scanned [...] as of this encounter (statuses as of 03/08/2024) Resolved Problems Problem Noted Date Diagnosed Date [...] as of this encounter (statuses as of 03/08/2024) Immunizations Name Administration Dates Next Due COVID-19 mRNA, LNP-s, No Pre serve, 2-Dose Series (Alter-G) 01/24/2021,01/04/2021,06/03/2020 Hepatitis B, 20+ yrs 08/27/2009,03/30/2009,02/27 Pneumococcal [...] documented in this encounter Progress Notes * Yoli Calhoun, [facility] - 03/08/2024 8:54 AM EST Images from the original note were not included. Medication Therapy Disease [facility] - Diabetes Management Progress Note Mariia Liao, identified by name and date of , is a 68 year old female being seen for diabetes management/education. Patient presents for return diabetic visit. Patient presented with spouse DIABETES: Current diabetic medications: Basaglar 35 units BID CHANGE: Novolog Inject 26 with breakfast, 14 units with lunch, 20 units with dinner Ozempic Inject 2mg weekly Jardiance 10mg once daily Metformin 850mg TID Medication Injection Site: Abdomen Lifestyle: Diet: Comprehensive Diet Review Meal #1: coffee (splenda, no cream); toast, egg, oatmeal, pie Meal #2: sandwich, soup, beans and rice, sometimes brunch Meal #3: spaghetti, soups, meat and potato, fish, eat out sometimes, latvian Snacks: chips, pretzels Beverages: diet pepsi Glucose Review/SMBG: Readings obtained from patient device Hypoglycemia: Does your blood sugar go below 70 mg/dL? No Hyperglycemia symptoms present: none Recent Labs Units 02/26/24 0932 10/13/23 1020 07/05/23 1141 HEMOGLOBIN A1C - [facility] % 7.6* -- 9.1* HEMOGLOBIN A1C POCT - [facility] % -- 7.9* -- Recent Labs Units 02/26/24 0932 08/04/23 1121 07/05/23 1141 ESTIMATED GLOMERULAR FILTRATION RATE - [facility] mL/min 81 56* 66 CREATININE - [facility] mg/dL 0.8 1.08 1.0 HYPERTENSION: Patient on ACEi/ARB: no, BP controlled BP Readings from Last 3 Encounters: 03/05/24 122/68 01/15/24 86/65 12/08/23 94/64 Blood pressure at goal: yes HYPERLIPIDEMIA: Recent [...] Vaccine () 10/29/2023 Diabetic Foot Exam 12/17/2023 Depression Screening 12/17/2023 ASSESSMENT & PLAN: ICD-10-CM 1. Type 2 diabetes mellitus with hemoglobin A1c goal of less than 8.0% ([facility]) E11.9 Considerations: Previous SP patinet Dexcom G7 through [place] [facility] Readings - Blood sugars reviewed per Dexcom Clarity download. Rising throughout the day. [id number] showed further improvement. Encouraged patient to keep up great work. Notes to concerns with accuracy of CGM. Reviewed on phone how to perform calibration. Instructed todo so with each new sensor, patient agreeable. Also notes to times when sensor is not working and she is unable to get sensors sooner from insurance company. Patient instructed to call the customer support line of dexcom when this happens at . Hours are Monday thru Monday 9AM-8PM EST. Medications - Reviewed current regimen, patient is adherent to regimen. Tolerating well and withoutissue. However notes to struggling with weight gain/weight retention. Recently discussed this with PCP. Hopeful reduce insulin requirements. We discussed transition from Ozempic --> Mounjaro for additional weight loss and blood sugars lowering. Diet, Exercise, Lifestyle - Explained the plate method in detail and discussed the importance of eating a balanced diet with CHO and protein. Discussed how CHO, proteins and fats effect her blood sugar. Encouraged to work on increasing protein, utilizing protein shakes/bars if not hungry. Also discussed importance of hydration and increasing water intake. Patient planning to focus on lifestyle/diet modifications prior to next visit. At that time will look towards possible Mounjaro transition. Patient expressed understanding, aware to contact clinic with any questions or concerns prior to next visit. Patient is agreeable to SMBG daily with CGM (Dexcom G7) Patient aware to contact clinic if any hypoglycemia before next visit. MEDICATION CHANGES: no change Diabetic Medications: Basaglar 35 units BID Novolog Inject 26 with breakfast, 14 units with lunch, 20 units with dinner Ozempic Inject 2mg weekly Jardiance 10mg once daily Metformin 850mg TID HEALTH MAINTENANCE INTERVENTIONS: Deferred d/t time constraints FOLLOW UP: Return to clinic in 7 weeks 04/22/2024 I spent a total of 40-54 minutes (exact time 45 mins) on the date of service in preparation, delivery, and documentation of the care provided to Mariia Liao excluding any time spent in the performance of separately billed services. Yoli Calhoun RPh Clinical Pharmacist - Store Group Manager Medication Therapy Management [facility] 03/08/2024, 8:55 AM documented in this encounter Miscellaneous Notes * Pt Handout (on AVS) - Yoli Calhoun RPh - 03/08/2024 9:22 AM EST Images from the original note were not included. 15680 Healthy Meals for Diabetes Figuring out what to eat can be one of the most confusing parts of diabetes. It will help you to have a meal plan. You can ask your healthcare team to help you make a meal plan that fits your needs. Your meal plan tells you when to eat your meals and snacks, what kinds of foods to eat, and how muchof each food to eat. You don?t have to give up all the foods you like but following some guidelines will set you up for success in managing your diabetes. A healthcare provider will help you develop a meal plan that fits your needs. Choose healthy carbohydrates Starches, sugars, and fiber are all types of carbohydrates (carbs). Carbs can get a bad reputation since they affect your blood sugar the most. It is important to remember that your body benefits from the right amount of healthy carbs. Fiber can help lower your cholesterol and triglycerides. Fiber is also healthy for your heart. You should have 20 to 35 grams of total fiber each day. Fiber comes from plants. Fiber-rich foods include: Whole-grain breads and cereals Nuts Brown rice and quinoa Whole-wheat pasta Fruits and vegetables Beans and peas Keep track of the amount of carbs you eat. This can help you keep the right balance of physical activity and medicine. The amount of carbs needed will vary for each person. It depends on many things such as your health, the medicines you take, and how active you are. Your healthcare team will help you figure out the right amount of carbs for you. You may start with around 45 to 60 grams of carbs per meal, depending on your needs. Here are some examples of foods that have about 15 grams of carbs (1 serving of carbs): 1/2 cup of canned or frozen fruit A small piece of fresh fruit (4 ounces) 1 slice of bread 1/2 cup of oatmeal 1/3 cup of rice 4 to 6 crackers 1/2 Lebanese muffin 1/2 cup of black beans 1/4 of a large baked potato (3 ounces) 2/3 cup of plain fat-free yogurt 1 cup of soup 1/2 cup of casserole 6 chicken nuggets 1-ybad-nkrhkc brownie or cake without frosting 2 small cookies 1/2 cup of ice cream or sherbet Choose healthy protein foods Proteins play a amaro role in building healthy muscles, bones, skin, and many other parts of your body. Eating protein that's low in fat can help you control your weight. It also helps keep your heart healthy. Low-fat protein foods include: Fish Plant proteins, such as lentils, beans, peas, nuts, and soy products like tofu and soymilk Lean meat with all visible fat removed Poultry with the skin removed Low-fat or nonfat milk, cheese, and yogurt Limit unhealthy fats and sugar Saturated and trans fats are unhealthy for your heart. They raise LDL (bad) cholesterol. Fat is also high in calories. To cut down on unhealthy fats and sugar, limit these foods: Butter or margarine Palm and palm kernel oils and coconut oil Cream Cheese Turner Lunch meats Ice cream Sweet bakery goods such as pies, muffins, and donuts Jams and jellies Candy bars Regular sodas How much to eat The amount of food you eat affects your blood sugar. It also affects your weight. Your healthcare team will tell you how much of each type of food you should eat. Use measuring cups and spoons and a food scale to measure serving sizes. Learn what a correct serving size looks like on your plate. This will help [facility] and [facility] measure your servings. For instance, a serving of meat is about the size of the palmof your hand. Eat only the number of servings given on your meal plan for each food. Don?t take seconds. Learn to read food labels. Be sure to look at serving size, total carbohydrates, fiber, calories, sugar, salt, and saturated and trans fats. Look for healthier options such as foods with no added sugar or salt. Plan ahead for parties. Then you can still have a good time without diving into unhealthy food choices. Bring a healthy dish to [employer]. Choose healthy snacks When it comes to snacks, we often think about foods with added sugar and fats. But there are many other options for healthier snack choices. Here are a few snack ideas to choose from: Snacks with less than 5 grams of carbohydrates 1 piece of string cheese 3 celery sticks plus 1 tablespoon of peanut butter 5 rae tomatoes plus 1 tablespoon of ranch dressing 1 hard-boiled egg 1/4 cup of fresh blueberries 5 baby carrots 1 cup of light popcorn 1/2 cup of sugar-free gelatin 15 almonds Snacks with about 10 to 20 grams of carbohydrates 1/3 cup of hummus plus 1 cup of fresh cut non-starchy vegetables (carrots, green peppers, broccoli, celery, or a mix) 1/2 cup of fresh or canned fruit plus 1/4 cup of cottage cheese 1/2 cup of tuna salad with 4 crackers 2 rice cakes and a tablespoon of peanut butter 1 small apple or orange 3 cups light popcorn 1/2 of a turkey sandwich (1 slice of whole-wheat bread, 2 ounces of turkey, and mustard) Portion sizes are important for controlling your blood sugar and staying at a healthy weight. Stockup on healthy snack foods so you always have them on hand. When to eat Your meal plan will likely include breakfast, lunch, dinner, and some snacks. Try to eat your meals and snacks at about the same times each day. Eat all your meals and snacks. Skipping a meal or snack can make your blood sugar drop too low. It can also cause you to eat too much at the next meal or snack. Then your blood sugar could get toohigh. Be patient It can be stressful trying to figure out what to eat. But over time, you?ll form new habits around your meal plan and healthy guidelines. Then eating right for your blood sugar will be much easier. Last Reviewed Date: 2023 00:00:00 8280-0004 [employer]. All rights reserved. This information is not intended as a substitute for professional medical care. Always follow your healthcare professional's instructions. * Pt Handout (on AVS) - oYli Calhoun RPh - 03/08/2024 9:22 AM EST Images from the original note were not included. 12665 Diabetes: Shopping for and Making Meals Having diabetes doesn?t mean you have to shop in a special aisle or look for special foods. But you'll need to make healthy food choices. Comparing items and reading food labels is amaro. This can helpyou find the healthiest foods for you and your family. Comparing items When you shop, compare items to find the best ones for your needs. Keep these facts in mind: No sugar added doesn't mean a product is sugar-free. Sugar-free means less than 1/2 gram (g) of sugar per serving. Fat-free means less than 1/2 g of fat per serving. This does not necessarily mean the product islow in calories. Low fat means 3 g fat or less per serving. Reduced fat or less fat means 25% less fat than the regular version. Some of this fat may be saturated or trans fat. And the calories per serving may be similar to the regular version. Making small changes Don?t try to change all of your eating habits at once. Here are some ideas to start with: Try fat-free or low-fat cheese, milk, and yogurt. Also, try leaner cuts of meat. This will help you cut down on saturated fat. Try whole-grain bread, brown rice, and whole-wheat pasta. Load up on fresh or frozen vegetables. If you buy canned, choose low-sodium vegetables. Stay away from processed foods as much as possible. They tend to be low in fiber and high in trans fats and salt. Limit how much salt you have to 2,300 mg per day. Try tofu, soy milk, or meat substitutes.?They can help you cut cholesterol and saturated fat outof your diet. Learning to read food labels To find healthy foods that help you control blood sugar, learn how to read food labels. Look for the Nutrition Facts label on packaged foods. It will tell you how many servings there are in the package. It will also tell you the amount of carbohydrate, sugar, fat, and fiber in each serving. Then you can decide if the food fits into your meal plan. Using the food label So, once you have the food label, what do you do with it? The food label helps in many ways. Use itto: Compare items. Decide which is the best for your health needs. Track the number of carbohydrates in your portions. Figure out how many servings of a food you can have and still stay within the number of carbohydrates for that meal. Planning meals For good blood sugar control, plan what and when you?ll eat. Start by making a meal plan that includes all the food groups. Then time your meals and exercise to help keep your blood sugar level steady. You may need to adjust your plan for special situations. But 3 of the best ways to manage your blood sugar are to: Eat meals and snacks at the same time every day Eat about the same amount of food Exercise each day Eating from all the food groups A healthy meal plan starts with eating many different types of foods. Look for lean meats, fresh fruits and vegetables, whole grains, and low-fat or nonfat dairy products. Eating a wide variety of healthy foods offers the nutrients your body needs. It can also keep you from getting bored with your meal plan. Reducing liquid sugars Extra calories from sodas, sports drinks, and fruit drinks make it hard to keep blood sugar in range. Cut as many liquid sugars from your meal plan as you can. This includes most fruit juices. These are often high in natural or added sugar. Instead, take plenty of water and other sugar-free drinks. Eating less fat If you need to lose some weight, try to reduce the amount of fat in your diet. This can also help lower your cholesterol level. This can keep blood vessels healthier. Cut fat by using only small amounts of liquid oil for cooking. Read food labels carefully. This can help you stay away from foods with unhealthy trans fats. Timing your meals When it comes to blood sugar control, when you eat is as important as what you eat. You may need toeat several small meals spaced evenly during the day. This can help you stay in your target range. So don?t skip breakfast or wait until late in the day to get most of your calories. Doing so can make your blood sugar rise too high or fall too low. Cooking wisely Broil, steam, bake, or grill meats and vegetables. Don't gonzalez them. Flavor foods with vegetable pure, lemon or [place] juice, or herb seasonings. Don't use cream-based sauces or sugary glazes. Remove skin from chicken and turkey before serving. Look in cookbooks for easy low-fat, low-sugar recipes. When making your normal recipes, cut sugar by 1/2. Cut fat by 1/3. Last Reviewed Date: 2023 00:00:00 2372-8070 [employer]. All rights reserved. This information is not intended as a substitute for professional medical care. Always follow your healthcare professional's instructions. * Pt Handout (on AVS) - Yoli Calhoun RPh - 03/08/2024 9:22 AM EST Images from the original note were not included. 31512 Eating Out When You Have Diabetes Eating right is an important part of keeping your blood sugar in your target range. You just need to make healthy choices. Tips for restaurant meals When you eat away from home try these tips: Try to schedule your dining-out meal at your normal mealtime. Make a reservation if possible, soyou don't have to wait to eat. If you can't, try to arrive at a less-busy time to cut down your wait time. Eat a small fruit or starch snack at your regular mealtime if your restaurant meal is going to be later than usual. Call ahead to see if the restaurant can meet your dietary needs if you've never been there before. Or you can go online to see the menu ahead of time. Plan ahead so you won't need to look at the menu when you order. Carry some crackers with you in case the restaurant needs you to wait until you can be served. Ask how foods are prepared before you order. Don't drink alcohol before your meal. Instead of fried, sauted, or breaded foods, choose ones that are broiled, steamed, grilled, orbaked. Ask for sauces, gravies, and dressings on the side. Swap unhealthy side dishes, such as tajik fries, for healthy choices, such as sliced tomatoes or cottage cheese. Only eat an amount that fits your meal plan. Remember: You can take home the leftovers. Save dessert for special times. Then choose a small dessert or share 1 with a friend or family member. If you use insulin and your meal will be at a different time than you usually eat, ask your healthcare provider if and how you should adjust your medicine. Make healthy choices Fast food Garden salad with light dressing on the side Baked potato with vegetables or herbs Broiled, roasted, or grilled chicken sandwich Sliced turkey or lean roast beef sandwich Faroese Chicken enchilada, without cheese or sour cream Small burrito with whole beans and chicken Whole beans (not refried) and rice Chicken or fish fajitas Steakhouse Grilled or broiled lean cuts of beef Baked potato with vegetables or herbs Broiled or baked chicken. Don?t eat the skin. Steamed vegetables Steamed dumplings or potstickers Broiled, boiled, or steamed meats or fish Sushi or sashimi Steamed rice or boiled noodles. One serving is equal to 1/3 cup. Last Reviewed Date: 2021 00:00:00 9621-3098 [employer]. All rights reserved. This information is not intended as a substitute for professional medical care. Always follow your healthcare professional's instructions. documented in this encounter Plan of Treatment Upcoming Encounters Date Type Department Care Team (Late st Contact Info) Description 04/22/2024 1:00 PM EST Office Visit Pharmacy, [address] [place] [id number] [place] [address] 05/29/2024 11:00 AM EDT Appointment Vascular Lab [address] [address] 05/29/2024 11:30 AM EDT Appointment Vascular Lab [address] [address] 05/29/2024 12:00 PM EDT Office Visit Vascular Surg [address] [facility] [place] [address] 06/04/2024 1:30 PM EDT Office Visit Urogynecology [facility] [address] [place] [address] Cristopher Pantoja MD [address] [place] [address] 06/10/2024 11:20 AM EDT Office Visit [facility] [address] [place] [address] Jonny Donaldson MD [address] [place] [address] 09/17/2024 10:00 AM EDT Imaging Radiology [address] [place] [address] 09/20/2024 12:00 PM EDT Office Visit [facility] [address] [place] [address] [address] Jonny Donaldson MD [address] [place] [address] 03/28/2025 12:00 PM EST Office Visit [facility] [address] [place] [address] [address] Jonny Donaldson MD [address] [place] [address] Health Maintenance Due Date Last Done Comments [...] 06/25/2021, Additional history exists GFR 02/25/2025 02/26/2024, 08/2023, 08/04/2023, Additional history exists DTap/Tdap Vaccines [...] this encounter Medical Devices Implanted Type Area Structural Biologist Device Identifier Shelf Expiration Date Model / Serial / Lot Greater Than 80cm, 3mm-8mm Flora, Angiograft Pvd Saphenous Veins, Cryopreserved Implanted:Qty: 1 on 01/19/2023 by Willian Rosas MD at OR [facility] Right: Leg Upper LIFENET 07/29/2026 CV>80 / [id number] / [id number] documented as of this encounter Visit [...] Advance Directives occurred with: Patient Care Teams Banking Services Officer Relationship Specialty Start Date End Date Jonny Donaldson MD [address] [facility] [place] [address] PCP - General Family Medicine 05/27/14 documented as of this encounter
--- OUTSIDE RECORDS SUMMARY | 2024-04-26 14:42 | External Medical Summary | Summary of Care ---
Author Name Unknown Organization [facility] Address [address] [place] [address] Phone [phone] Care Team Providers Care Cost Recorder Name Role Phone Jonny Donaldson MD Primary Care Provider + Reason for Visit * Reason Onset Date Comments Advice 03/18/2024 Medication Medication Question 03/18/2024 Encounter Details Date Type Department Care Team (Late st Contact Info) Description 03/18/2024 Telephone Family Practice [facility] [address] [facility] [place] [address] Jonny Donaldson MD [address] [facility] [place] [address] Advice (Medication ); Medication Question Allergies Active Allergy Reactions Criticality Noted Date Comments Cephalexin 01/28/1996 rash Doxepin 02/01/2018 Dust 04/04/2001 Nickel Anaphylaxis High 04/04/2001 Paroxetine 04/28/2003 generic only, brand ok Penicillins 03/03/1995 Rash Sulfa Antibiotics 11/27/1994 Rash documented as of this encounter (statuses as of 03/18/2024) Medications ASPIRIN EC 81 MG PO TBECIndications: Type II or unspecified type diabetes mellitus with renal manifestations, uncontrolled(250 .42) ([facility]) Take one pill daily 100 Tab 3 [...] Hypoglycemia (low sugar). 100 Each 2 12/18/19 Active OneTouch Verio In Vitro Strip (Glucose Blood)Indication s:Type 2 diabetes mellitus with hemoglobin A1c goal of less than 8.0% (HCC) Use up to 4 times a day E11.9 100 Strip 11 12/18/19 24 Active Atorvastatin Calcium 80 MG Oral Tablet (Lipitor)Indicat ions:Dyslipidemi a, goal LDL below 100 TAKE ONE TABLET BY MOUTH EVERY DAY 90 Tablet 12/26/19 24 Active metFORMIN HCl 850 MG Oral Tablet (Glucophage)Mirtha cations:Type 2 diabetes mellitus with hemoglobin A1c goal of less than 8.0% (HCC) TAKE ONE TABLET BY MOUTH THREE TIMES DAILY WITH MEALS diabetes 270 Tablet 12/26/19 24 Active Empagliflozin 10 MG Oral Tablet [...] and 1 Tablet before bedtime. 90 Tablet 03/18/19 25 Active Gabapentin 600 MG Oral Tablet (Neurontin)Indic ations:Leg cramping,Restles s legs syndrome Take 0.5 Tablets by mouth in the morning and 0.5 Tablets at noon and 0.5 Tablets before bedtime. 90 Tablet 03/18/19 25 025 Discontin ued(Refil l) documented as of this encounter (statuses as of 03/18/2024) Active Problems Problem Noted Date Diagnosed Date [...] of the RCA 04/27/[address] Whyte [facility]. History of nonmelanoma skin cancer 05/25/2022 Overview [...] disease) 06/27/2013 Overview (06/27/2013): 06/24/13 +CP-abnormal stress[facility]. 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 03/03/[address] [facility] normal EF, moderate LVH. Mild hypokinesis of apical septum. 01/18 Carotid US [place] stable 50-69 on left. 10/18 colonoscopy [facility] 3 3-5 polyps [address] colon-polypoid mucosa mild hyperplastic changes. Rectal polyp= hyperplastic polyp. Dr Juan Mak [facility] (11/19 06/14 Cologuard WNL. Cardiology-Jeffrey Campos [place]. 12/17 Carotid 50-69% left ICA stenosis. Vielka [...] PFT evidence of COPD ) 05/10 TTE @[place] Jvkwtwdbqp-pdhr-yfmrgy EF, mild LVH, Gr1 Feldman Dys 07/09 colonoscopy [facility] Endoscopy [place]-3 & 6mm polyp--PAth--Tubular adenoma 07/09 [place] TSH & celiac testing WNL 04/11 ER [...] as of this encounter (statuses as of 03/18/2024) Resolved Problems Problem Noted Date Diagnosed Date [...] as of this encounter (statuses as of 03/18/2024) Immunizations Name Administration Dates Next Due COVID-19 [...] Miscellaneous Notes * Telephone Encounter - Jonny Donaldson MD - 03/18/2024 4:20 PM EST Resent 600mg corrected dose. * Telephone Encounter - Ирина Branch LPN - 03/18/2024 3:18 PM EST Script from 01/03/24 and before is for 600 mg 1 tab Today script is for 600 mg 1/2 tablet. Do not see anything in the chart about decreasing the dose. Please advise as to what dose is correct. * Telephone Encounter - Suzanne Baig LPN - 03/18/2024 2:05 PM EST Azul from [facility] pharmacy calling for clarification gabapentin RX sent today. The sig written doesn't match the quantity ordered. Azul indicates pt was on gabapentin 600mg TID. The RX today reads to take half a tab 3 times a day with quantity of 90. I reviewed chart, I was able to determine if an error occurred or why dose was decreased. Please clarify. Either send new RX or call [facility] pharmacy at [phone] * Telephone Encounter - Sandra Cherry OSA - 03/18/2024 2:00 PM EST Reason for patient's call: medication question Caller was transferred to [facility] at the nurse line. documented in this encounter Plan of Treatment Upcoming Encounters Date Type Department Care Team (Late st Contact Info) Description 04/22/2024 1:00 PM EST Office Visit Pharmacy, [address] [place] [address] [place] [address] 04/22/2024 1:40 PM EST Pharmacy Pharmacy, [address] [place] [address] [place] [address] 05/29/2024 11:00 AM EDT Appointment Vascular Lab [address] [place] [address] 05/29/2024 11:30 AM EDT Appointment Vascular Lab [facility], [place] [address] [place] [address] 05/29/2024 12:00 PM EDT Office Visit Vascular Surg [place] [address] [place] [address] Willian Rosas MD [facility] [address] 06/04/2024 1:30 PM EDT Office Visit Urogynecology [facility] [address] [place] [address] Cristopher Pantoja MD [address] [place] [address] 06/10/2024 11:20 AM EDT Office Visit [facility] [address] [place] [address] Jonny Donaldson MD [address] [place] [address] 09/17/2024 10:00 AM EDT Imaging Radiology [address] [place] [address] 09/20/2024 12:00 PM EDT Office Visit [facility] [address] [place] [address] Jonny Donaldson MD [address] [place] [address] 03/28/2025 12:00 PM EST Office Visit [facility] [address] [place] [address] Jonny Donaldson MD [address] [place] [address] Health Maintenance Due Date Last Done Comments [...] this encounter Medical Devices Implanted Type Area Electric Clock Mechanic Device Identifier Shelf Expiration Date Model / Serial / Lot Greater Than 80cm, 3mm-8mm Flora, Angiograft Pvd Saphenous Veins, Cryopreserved Implanted:Qty: 1 on 01/19/2023 by Willian Rosas MD at [place] [facility] Right: Leg Upper LIFENET 07/29/2026 CV>80 / [id number] / [id number] documented as of this encounter Visit Diagnoses Diagnosis Leg cramping Restless legs syndrome Restless legs syndrome (RLS) Screening mammogram for breast cancer documented in [...] Advance Directives occurred with: Patient Care Teams Cost Recorder Relationship Specialty Start Date End Date Jonny Donaldson MD [address] [place] [address] PCP - General Family Medicine 05/27/14 documented as of this encounter
--- OUTSIDE RECORDS SUMMARY | 2024-04-26 14:42 | External Medical Summary | Summary of Care ---
Author Name Unknown Organization [facility] Address [address] [place] [address] Phone [phone] Care Team Providers Care Legislative Aide Name Role Phone Jonny Broussard MD Primary Care Provider + Reason for Visit * Reason Onset Date Comments Medication Refill 03/16/2024 Encounter Details Date Type Department Care Team (Late st Contact Info) Description 03/16/2024 Refill Family Practice [facility] [address] [facility] [place] [address] Jonny Broussard MD [address] [place] [address] Sciatica, unspecified laterality; Leg cramping; Restless legs syndrome Allergies Active Allergy Reactions Criticality Noted Date Comments Cephalexin 01/28/1996 rash Doxepin 02/01/2018 Dust 04/04/2001 Nickel Anaphylaxis High 04/04/2001 Paroxetine 04/28/2003 generic only, brand ok Penicillins 03/03/1995 Rash Sulfa Antibiotics 11/27/1994 Rash documented as of this encounter (statuses as of 03/18/2024) Medications ASPIRIN EC 81 MG PO TBECIndications: Type II or unspecified type diabetes mellitus with renal manifestations, uncontrolled(250 .42) ([facility]) Take one [...] Solostar 100 UNIT/ML Subcutaneous Solution Pen-injector (Basaglar SanjivikPen)Indicati ons:Type 2 diabetes mellitus with hemoglobin A1c [...] twice a week 236 mL 1 10/05/19 Active Additional Information Patient not taking.Reported on [...] times a day E11.9 1 Kit 12/18/19 Active OneTouch UltraSoft LancetsIndicatio ns:Type 2 diabetes [...] needed (pain). 60 Tablet 03/18/19 25 Active Gabapentin 600 MG Oral Tablet (Neurontin)Indic ations:Leg cramping,Restles s legs syndrome Take 0.5 Tablets by mouth in the morning and 0.5 Tablets at noon and 0.5 Tablets before bedtime. 90 Tablet 5 03/18/19 25 Active Ketoconazole 2 % External Cream Apply topically to affected area 2 times a day. Apply to belly skin fold until rash improved. 30 g 1 03/18/19 25 Active traMADol HCl 50 MG Oral Tablet (Ultram)Indicati ons:Sciatica, unspecified laterality Take 1-2 Tablets by mouth every 6 hours as needed (pain). 60 Tablet 10/12/19 24 025 Discontin ued(Refil l) Gabapentin 600 MG Oral Tablet (Neurontin)Indic ations:Leg cramping,Restles s legs syndrome TAKE 1 TABLET IN THE MORNING, 1 TABLET AT NOON AND 1 TABLET BEFORE BEDTIME; INCREASE DOSE 04/07/23 90 Tablet 5 01/03/20 24 025 Discontin ued(Refil l) Ketoconazole 2 % External Cream Apply topically to affected area 2 times a day. Apply to belly skin fold until rash improved. 30 g 1 01/10/20 24 025 Discontin ued(Refil l) documented as [...] Unit. History of nonmelanoma skin cancer 05/25/2022 Overview [...] disease) 06/27/2013 Overview (06/27/2013): 06/24/13 +CP-abnormal stress->cath @[facility]. 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 [...] Overview (04/25/2012): 04/20/12 AV Ablation-Dr Jeffrey Campos, [facility] Episode June 2011 around 03/12/12 [place] hosp-P175 SVT--sched for [place] EP study Routine general medical exam ination at a health care facility 11/11/2011 Overview (07/05/2023): Cards--Dr Jeffrey Campos [place]. 03/03/23 TTE [facility] normal EF, moderate LVH. Mild hypokinesis of apical septum. 01/18 Carotid US [place] stable 50-69 on left. 10/18 colonoscopy [facility] 3 3-[address] colon-polypoid mucosa mild hyperplastic changes. Rectal polyp= hyperplastic polyp. Dr Juan Mak [facility] (11/19 06/14 Cologuard WNL. Cardiology-Jeffrey Oscarpayal [place]. 12/17 Carotid 50-69% left ICA stenosis. Vielka [...] PFT evidence of COPD ) 05/10 TTE @[place] Imjzxspesu-vokf-yrqgvw EF, mild LVH, Gr1 Feldman Dys 07/09 colonoscopy [facility] Endoscopy [place]-3 & 6mm polyp--PAth--Tubular adenoma 07/09 [place] TSH & celiac testing WNL 04/11 ER visit [facility] SVT--resolved with adenosine. 03/11 EKG-scanned QTc [...] mRNA, LNP-s, No Pre serve, 2-Dose Series ([employer]) 01/24/2021,01/04/2021,06/03/2020 Hepatitis B, 20+ yrs 08/27/2009,03/30/2009,02/27 Pneumococcal [...] for ages 0-17 years) Not on file 11 / Food Insecurity Answer Date Recorded Do you [...] Telephone Encounter - Jonny Broussard MD - 03/18/2024 1:46 PM ESTSigned Prescriptions: Disp Refills traMADol HCl 50 MG Oral Tablet (Ultram) 60 Tab*0 Sig: Take 1-2 Tablets by mouth every 6 hours as needed (pain).Authorizing Provider: JONNY BROUSSARD Gabapentin 600 MG Oral Tablet (Neurontin) 90 Tab*5 Sig: Take 0.5 Tablets by mouth in the morning and 0.5 Tablets at noon and 0.5 Tablets before bedtime.Authorizing Provider: JONNY BROUSSARD Ketoconazole 2 % External Cream 30 g 1 Sig: Apply topically to affected area 2 times a day. Apply to belly skin fold until rash improved.Authorizing Provider: JONNY BROUSSARD * Telephone Encounter - Tammie Yuan RP - 03/17/2024 6:42 PM ESTPending Prescriptions: Disp Refills traMADol HCl 50 MG Oral Tablet (Ultram) 60 Tab*0 Sig: Take 1-2 Tablets by mouth every 6 hours as needed (pain). Gabapentin 600 MG Oral Tablet (Neurontin) 90 Tab*5 Ketoconazole 2 % External Cream 30 g 1 Sig: Apply topically to affected area 2 times a day. Apply to belly skin fold until rash improved. * Telephone Encounter - Tammie Yuan RPh - 03/17/2024 6:41 PM EST I have reviewed the patients controlled substance dispensing history in the Prescription Drug Monitoring Program in compliance with the [facility] regulations before prescribing a controlled substance. PDMP checked on 03/17/2024. Pending Prescriptions: Disp Refills traMADol HCl 50 MG Oral Tablet (Ultram) 60 Tab*0 Sig: Take 1-2 Tablets by mouth every 6 hours as needed (pain). Gabapentin 600 MG Oral Tablet (Neurontin) 90 Tab*5 Ketoconazole 2 % External Cream 30 g 1 Sig: Apply topically to affected area 2 times a day. Apply to belly skin fold until rash improved. Last Visit: 03/05/2024 (in office), 08/10/2021 (telemedicine) Next Visit: 06/10/2024 Date medication was last filled: 10/12/23 Date medication is due for refill: 10/19/23 Pharmacy: [facility] Is this request for a controlled substance? Yes and Urine Drug Screen Not completed Toxicology results: No results found. However, due to the size of the patient record, not all encounters were searched.Please check Results Review for a complete set of results. Please approve if appropriate. ThanksTammie [facility] Clinical Pharmacist 03/17/2024, 6:41 PM documented in this encounter Plan of Treatment Upcoming Encounters Date Type Department Care Team (Late st Contact Info) Description 04/22/2024 1:00 PM EST Office Visit Pharmacy, [address] [place] [address] [place] [address] 04/22/2024 1:40 PM EST Pharmacy Pharmacy, [address] [place] [address] [place] [address] 05/29/2024 11:00 AM EDT Appointment Vascular Lab [address] [address] 05/29/2024 11:30 AM EDT Appointment Vascular Lab [facility], [place] [address] [place] [address] 05/29/2024 12:00 PM EDT Office Visit Vascular Surg [facility], [place] [address] [place] [address] Willian Rosas MD [address] [place] [address] 06/04/2024 1:30 PM EDT Office Visit [facility] [address] [place] [address] Cristopher Pantoja MD [address] [place] [address] 06/10/2024 11:20 AM EDT Office Visit [facility] [address] [place] [address] Jonny Broussard MD [address] [place] [address] 09/17/2024 10:00 AM EDT Imaging Radiology [address] [place] [address] 09/20/2024 12:00 PM EDT Office Visit [facility] [address] [place] [address] Jonny Broussard MD [address] [place] [address] 03/28/2025 12:00 PM EST Office Visit [facility] [address] [place] [address] Jonny Broussard MD [address] [place] [address] Health Maintenance Due Date Last Done Comments [...] this encounter Medical Devices Implanted Type Area Shading Painter Device Identifier Shelf Expiration Date Model / Serial / Lot Greater Than 80cm, 3mm-8mm Flora, Angiograft Pvd Saphenous Veins, Cryopreserved Implanted:Qty: 1 on 01/19/2023 by Willian Rosas MD at [place] [facility] Right: Leg Upper LIFENET 07/29/2026 CV>80 / [id number] / [id number] documented as of this encounter Visit Diagnoses Diagnosis Sciatica, unspecified laterality Leg cramping Restless legs syndrome Restless legs [...] Advance Directives occurred with: Patient Care Teams Legislative Aide Relationship Specialty Start Date End Date Jonny Broussard MD [address] [place] [address] PCP - General Family Medicine 05/27/14 documented as of this encounter
--- OUTSIDE RECORDS SUMMARY | 2024-04-26 14:42 | External Medical Summary | Summary of Care ---
Author Name Unknown Organization [facility] Address [address] [place] [address] Phone [phone] Care Team Providers Care Core Shaper Name Role Phone Jonny Broussard MD Primary Care Provider + Reason for Visit * Reason Onset Date Comments Medication Refill 03/16/2024 Encounter Details Date Type Department Care Team (Late st Contact Info) Description 03/16/2024 Refill Family Practice [facility] [address] [place] [address] Margie Faulkner MD [address] [place] [address] Anxiety state Allergies Active Allergy Reactions Criticality Noted Date [...] or Insomnia. 40 Tablet 03/18/19 25 Active LORazepam 0.5 MG Oral Tablet (Ativan)Indicati ons:Anxiety state Take 1 Tablet by mouth every 8 hours as needed for Anxiety or Insomnia. 40 Tablet 08/25/19 24 025 Discontin ued(Refil l) traMADol HCl 50 MG Oral Tablet (Ultram)Indicati [...] disease) 06/27/2013 Overview (06/27/2013): 06/24/13 +CP-abnormal stress->cath @[facility]. 100% occlusion RCA with left- right [...] Overview (04/25/2012): 04/20/12 AV Ablation-Dr Jeffrey Campos, [facility] Episode June 2011 around 03/12/12 [place] hosp-P175 SVT--sched for [place] EP study Routine general medical exam ination at a health care facility 11/11/2011 Overview (07/05/2023): Cards--Dr Jeffrey Jalloh. 03/03/23 TTE [facility] normal EF, moderate LVH. Mild hypokinesis of apical septum. 01/18 Carotid US [place] stable 50-69 on left. 10/18 colonoscopy [facility] 3 3-[address] colon-polypoid mucosa mild hyperplastic changes. Rectal polyp= hyperplastic polyp. Dr Juan Mak [facility] (11/19 06/14 Cologuard WNL. Cardiology-Jeffrey Jalloh. 12/17 [...] PFT evidence of COPD ) 05/10 TTE @[place] Firouufvzl-hxmp-jnghtq EF, mild LVH, Gr1 Feldman Dys 07/09 colonoscopy [facility] Endoscopy [place]-3 & 6mm polyp--PAth--Tubular adenoma 07/09 [place] TSH & celiac testing WNL 04/11 ER visit [facility] SVT--resolved with adenosine. 03/11 EKG-scanned [...] mRNA, LNP-s, No Pre serve, 2-Dose Series ([employer]) 01/24/2021,01/04/2021,06/03/2020 Hepatitis B, 20+ yrs 08/27/2009,03/30/2009,02/27 Pneumococcal [...] Encounter - Jonny Broussard MD - 03/18/2024 1:44 PM ESTSigned Prescriptions: Disp Refills LORazepam 0.5 MG Oral Tablet (Ativan) 40 Tab*0 Sig: Take 1 Tablet by mouth every 8 hours as needed for Anxiety or Insomnia. Authorizing Provider: JONNY BROUSSARD * Telephone Encounter - Danielle Adame [facility] - 03/17/2024 2:48 PM EST Pending Prescriptions: Disp Refills LORazepam 0.5 MG Oral Tablet (Ativan) 40 Tab*0 Sig: Take 1 Tablet by mouth every 8 hours as needed for Anxiety or Insomnia. * Telephone Encounter - Danielle Adame [facility] - 03/17/2024 2:47 PM EST I have reviewed the patients controlled substance dispensing history in the Prescription Drug Monitoring Program in compliance with the [facility] regulations before prescribing a controlled substance. PDMP checked on 03/17/2024. Pending Prescriptions: Disp Refills LORazepam 0.5 MG Oral Tablet (Ativan) 40 Tab*0 Sig: Take 1 Tablet by mouth every 8 hours as needed for Anxiety or Insomnia. Last Visit: 03/05/2024 (in office), 08/10/2021 (telemedicine) Next Visit: 06/10/2024 Date medication was last filled: 08/24 Date medication is due for refill: 09/06 Pharmacy: [facility] Is this request for a controlled substance? Yes and Urine Drug Screen Not completed Toxicology results: No results found. However, due to the size of the patient record, not all encounters were searched.Please check Results Review for a complete set of results. Please approve if appropriate. Thank you, Danielle Adame, PharmD Clinical Pharmacist [facility] 03/17/24 2:47 PM [phone] documented in this encounter Plan of Treatment Upcoming Encounters Date Type Department Care Team (Late st Contact Info) Description 04/22/2024 1:00 PM EST Office Visit Pharmacy, [address] [place] [address] [place] [address] 04/22/2024 1:40 PM EST Pharmacy Pharmacy, [address] [place] [address] [place] [address] 05/29/2024 11:00 AM EDT Appointment Vascular Lab [address] [address] 05/29/2024 11:30 AM EDT Appointment Vascular Lab [address] [address] 05/29/2024 12:00 PM EDT Office Visit Vascular Surg [place] [address] [place] [address] Willian Rosas MD [address] [place] [address] 06/04/2024 1:30 PM EDT Office Visit Urogynecology [facility] [address] [place] [address] Cristopher Pantoja MD [address] [place] [address] 06/10/2024 11:20 AM EDT Office Visit Family Practice [facility] [address] [place] [address] Jonny Broussard MD [address] [place] [address] 09/17/2024 10:00 AM EDT Imaging Radiology [address] [place] [address] 09/20/2024 12:00 PM EDT Office Visit [facility] [address] [address] Jonny Broussard MD [address] [place] [address] 03/28/2025 12:00 PM EST Office Visit [facility] [address] [place] [address] Jonny Broussard MD [address] [place] [address] Health Maintenance Due Date Last Done Comments [...] this encounter Medical Devices Implanted Type Area Investigative Agent Device Identifier Shelf Expiration Date Model / Serial / Lot Greater Than 80cm, 3mm-8mm Flora, Angiograft Pvd Saphenous Veins, Cryopreserved Implanted:Qty: 1 on 01/19/2023 by Willian Rosas MD at [place] [facility] Right: Leg Upper LIFENET 07/29/2026 CV>80 / [id number] / [id number] documented as of this encounter Visit Diagnoses Diagnosis Anxiety state Anxiety state, unspecified Screening mammogram for breast cancer documented in [...] Advance Directives occurred with: Patient Care Teams Core Shaper Relationship Specialty Start Date End Date Jonny Broussard MD [address] [facility] [place] [address] PCP - General Family Medicine 05/27/14 documented as of this encounter
--- OUTSIDE RECORDS SUMMARY | 2024-04-26 14:43 | External Medical Summary | Summary of Care ---
Author Name Unknown Organization [facility] Address [address] [place] [address] Phone [phone] Care Team Providers Care Sewing Machine Adjuster Name Role Phone Jonny Donaldson MD Primary Care Provider + Encounter Details Date Type Department Care Team (Late st Contact Info) Description 02/29/2024 Telephone Oral Maxillofacial Surgery, [place] [address], [place] [id number] Giorgio Peters DDS [address] [place] [address] Allergies Active Allergy Reactions Criticality Noted Date Comments Cephalexin 01/28/1996 rash Doxepin 02/01/2018 Dust 04/04/2001 Nickel Anaphylaxis High 04/04/2001 Paroxetine 04/28/2003 generic only, brand ok Penicillins 03/03/1995 Rash Sulfa Antibiotics 11/27/1994 Rash documented as of this encounter (statuses as of 02/29/2024) Medications ASPIRIN EC 81 MG PO TBECIndications: Type II or unspecified type diabetes mellitus with renal manifestations, uncontrolled(250 .42) ([facility]) Take one pill daily 100 [...] Capsule by mouth in the morning. Active Estradiol 0.1 MG/GM Vaginal Cream (Estrace) Apply pea sized amount (0.5 gm) vaginally twice a week at bedtime 42.5 g 3 3 Active Additional Information Patient not taking.Reported on 11/27/2023 AZO Cranberry 250-30 MG Oral Tablet Take [...] hemoglobin A1c goal of less than 8.0% ([facility]) Inject 2 mg under the [...] per day 200 Each 3 4 Active Insulin Lispro (1 Unit Dial) 100 UNIT/ML Subcutaneous Solution Pen-injector (HumaLOG KwikPen)Indicati ons:Type 2 diabetes mellitus with hemoglobin A1c goal of less than 8.0% (HCC) Inject 26 with breakfast, 14 units with lunch, 20 units with dinner or as directed. Substitute for Fiasp until available. 60 mL 1 5 Active documented as of this encounter (statuses as of 02/29/2024) Active Problems Problem Noted Date Diagnosed Date Bilateral carotid artery stenosis 07/17/2023 Morbid (severe) [...] of the RCA 04/27/[address] Whyte [facility] [place]. History of nonmelanoma skin cancer 05/25/2022 [...] Overview (04/25/2012): 04/20/12 AV Ablation-Dr Jeffrey Campos, [facility] Episode June 2011 around 03/12/12 [facility]-[id number] SVT--sched for [facility] EP study Routine general medical exam ination at a health care facility 11/11/2011 Overview (07/05/2023): Cards--Dr Jeffrey Campos [facility]. 03/03/23 TTE [facility] normal EF, moderate LVH. Mild hypokinesis of apical septum. 01/18 Carotid US [place] stable 50-69 on left. 10/18 colonoscopy [facility] 3 3-5 polyps PATH colon-polypoid mucosa mild hyperplastic changes. Rectal polyp= hyperplastic polyp. Dr Juan Mak [facility] (11/19 06/14 Cologuard WNL. Cardiology-Jeffrey Campos [place]. 12/17 Carotid 50-69% left ICA stenosis. Vielka [...] PFT evidence of COPD ) 05/10 TTE @[facility] Hrzynltnqm-[id number] EF, mild LVH, Gr1 Feldman Dys 07/09 colonoscopy [facility] Endoscopy [place]-3 & 6mm polyp--PAth--Tubular adenoma 07/09 [place] TSH & celiac testing WNL 04/11 ER visit [facility] SVT--resolved with adenosine. 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 All questions answered and patient satisfied. No need for additional follow up at this time. Follow up PRN. Giorgio Peters DDS documented in this encounter Plan of Treatment Upcoming Encounters Date Type Department Care Team (Late st Contact Info) Description 03/05/2024 3:40 PM EST Office Visit Family [facility] [address] [address] Jonny Donaldson MD [address] [address] 05/29/2024 11:00 AM EDT Appointment Vascular Lab [address] [id number] 05/29/2024 11:30 AM EDT Appointment Vascular Lab [place] [address] [place] [address] 05/29/2024 12:00 PM EDT Office Visit Vascular Surg [place] [address] [place] [address] Willian Rosas MD [address] [place] [address] 09/17/2024 10:00 AM EDT Imaging Radiology [address] [address] Health Maintenance Due Date Last Done Comments [...] 02/26/2024, 10/2022, 06/25/2021, Additional history exists GFR 02/25/2025 [...] this encounter Medical Devices Implanted Type Area Facilities Administrator Device Identifier Shelf Expiration Date Model / Serial / Lot Greater Than 80cm, 3mm-8mm Flora, Angiograft Pvd Saphenous Veins, Cryopreserved Implanted:Qty: 1 on 01/19/2023 by Willian Rosas MD at [facility] Right: Leg Upper [employer] 07/29/2026 CV>80 / [id number] / [id number] documented as of this encounter Advance [...] Advance Directives occurred with: Patient Care Teams Sewing Machine Adjuster Relationship Specialty Start Date End Date Jonny Donaldson MD [address] [address] PCP - General Family Medicine 05/27/14 documented as of this encounter
--- OUTSIDE RECORDS SUMMARY | 2024-04-26 14:43 | External Medical Summary | Summary of Care ---
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 Name Role Phone Jonny Donaldson MD Primary Care Provider + Reason for Referral * Evaluate & Treat - Unlimited Visits (Within 10 days (routine)) - Authorized Specialty Diagnoses / Procedures Referred By Joy fortune Referred To Contact Physical Therapy / Physical Medicine And Rehab Diagnoses Chronic bilateral low back pain without sciatica Chronic right shoulder pain Jonny Donaldson MD [address] [address] Phone: tel: fax: Referral ID Status Reason Start Date Expiration Date Visits Requested Visits Authorized [id number] Authorized Specialty Services Required 03/05/[phone] Question Answer Referral Priority Within 10 days (routine) Where should this appointment be scheduled? External Comments LBP chronic, also right axilla/shoulder strain Reason for Visit * Reason Comments Return Visit Follow up-several co ncerns to discuss. Encounter Details Date Type Department Care Team (Latest Contact Info) Description 03/05/2024 3:40 PM EST Office Visit Family Practice [facility] [address] [address] Jonny Donaldson MD [address] [address] Risk and functional assessment*; Ulcer of toe of right foot, unspecified ulcer stage ([facility]); Urge incontinence of urine; Type 2 diabetes mellitus with diabetic nephropathy, with long-term current use of insulin ([facility]); HTN, goal below 130/80; S/P drug eluting coronary stent placement; SVT (supraventricular tachycardia) ([facility]); PAD (peripheral artery disease) ([facility]); Carotid artery stenosis without cerebral infarction, left; S/P CABG x 3; COPD, group A, by GOLD 2017 classification ([facility]); Chronic bilateral low back pain without sciatica; Chronic right shoulder pain Allergies Active Allergy Reactions Criticality Noted Date Comments Cephalexin 01/28/1996 rash Doxepin 02/01/2018 Dust 04/04/2001 Nickel Anaphylaxis High 04/04/2001 Paroxetine 04/28/2003 generic only, brand ok Penicillins 03/03/1995 Rash Sulfa Antibiotics 11/27/1994 Rash documented as of this encounter (statuses as of 03/05/2024) Medications ASPIRIN EC 81 MG PO TBECIndications: Type II or unspecified type diabetes mellitus with renal manifestations, uncontrolled(250 .42) ([facility]) Take one pill daily 100 Tab [...] as of this encounter (statuses as of 03/05/2024) Active Problems Problem Noted Date Diagnosed Date [...] of the RCA 04/27/[address] Whyte [facility] [place]. History of nonmelanoma skin cancer 05/25/2022 Overview [...] (06/27/2013): 06/24/13 +CP-abnormal stress->cath @[facility]. 100% occlusion RCA with left- right [...] Overview (04/25/2012): 04/20/12 AV Ablation-Dr Jeffrey Campos, [facility] Episode June 2011 around 03/12/12 [facility]-[id number] SVT--sched for [facility] EP study Routine general medical exam ination at a health care facility 11/11/2011 Overview (07/05/2023): Cards--Dr Jeffrey Jalloh. 03/03/23 TTE [facility] normal EF, moderate LVH. Mild hypokinesis of apical septum. 01/18 Carotid US [facility] stable 50-69 on left. 10/18 colonoscopy [facility] [...] PFT evidence of COPD ) 05/10 TTE @[facility] Ngukvwnsdi-nkyr-mkhdpg EF, mild LVH, Gr1 Feldman Dys 07/09 colonoscopy [facility]-3 & 6mm polyp--PAth--Tubular adenoma 07/09 [facility] TSH & celiac testing WNL 04/11 ER visit [facility] SVT--resolved with adenosine. 03/11 EKG-scanned QTc 414 12/08 Stress echo-normal except small calc. On aortic valve and Gr I feldman dysfxn 05/08 mammo WNL 08/07 scope 2 polyp vielka 3Y S/P LAURIE 2001-PFTs WNL HTN, goal below 130/80 10/17/2011 Type 2 diabetes mellitus with diabetic nephropat hy 03/09/2011 Overview (06/15/2012): 05/09-start lantus 11/08-a1c 12.8. Restart glipizide, consider insulin. Consider-- iron/ferritin for RLS 3/12 a1c 11, +microalb, start ACEI Hx on [...] as of this encounter (statuses as of 03/05/2024) Resolved Problems Problem Noted Date Diagnosed Date [...] as of this encounter (statuses as of 03/05/2024) Immunizations Name Administration Dates Next Due COVID-19 mRNA, LNP-s, No Pre serve, 2-Dose Series ([place]) 01/24/2021,01/04/2021,06/03/2020 Hepatitis B, 20+ yrs 08/27/2009,03/30/2009,02/27 Pneumococcal [...] Reading Time Taken Comments Blood Pressure 122/68 03/05/2024 4:05 PM EST Pulse 83 03/05/2024 4:05 PM EST Temperature - - Respiratory Rate 16 03/05/2024 4:05 PM EST Oxygen Saturation - - Inhaled Oxygen [...] this encounter Patient Instructions * Patient Instructions* Damari Mcclendon LPN - 03/05/2024 4:03 PM EST Patient Instructions - Fall Prevention (This education is for all patients over 65 regardless of symptoms) Remember to take your current medications as prescribed. In order to prevent falls, you are encouraged to: Exercise Utilize assistive/adaptive devices Avoid multifocal lenses when walking Avoid hazards in home Maintain a regular toileting schedule Any questions please contact our office. Preventing Falls in the Home (This education is for all patients over 65 regardless of symptoms) As you get older, falls are more likely. Thats because your reaction time slows. Your muscles and joints may also get stiffer, making them less flexible. Illness, medications, and vision changes can also affect your balance. A fall could leave you unable to live on your own. To make your home safer, follow these tips: Floors Put nonskid pads under area rugs Remove throw rugs Replace worn floor coverings Tack carpets firmly to each step on carpeted stairs. Put nonskid strips on the edges of uncarpeted stairs Keep floors and stairs free of clutter and cords Arrange furniture so there are clear pathways Clean up any spills right away Bathrooms Install grab bars in the tub or shower Apply nonskid strips or put a nonskid rubber mat in the tub or shower Sit on a bath chair to bathe Use bathmats with nonskid backing Lighting Keep a flashlight in each room Put a nightlight along the pathway between the bedroom and the bathroom Ander Patient Education Copyright 2008 - 2010 Ander except where otherwise noted Preventing Falls: Exercises to Improve Balance, Flexibility, Strength, and Staying Power (This education is for all patients over 65 regardless of symptoms) Certain types of exercises may help make you less likely to fall. Try the ones below. Or do other exercises that your healthcare provider suggests. Depending on your health, you may need to start slowly. Dont let that stop you. Even small amounts of exercise can help you. Be sure to talk to yourhealthcare provider before starting any exercise program. Improve Balance Many types of exercise can help improve balance. Demetris chi and yoga are good examples. Heres another one to try. You can do it anytime and almost anywhere. Stand next to a counter or solid support. Push yourself up onto your tiptoes. Hold for 5 seconds. If you start to lose your balance, hold on to the counter. Rest and repeat 5 times. Work up to holding for 20 to 30 seconds, if you can. Increase Flexibility Being more flexible makes it easier for you to move around safely. Try exercises like the seated hamstring stretch. Sit in a chair and put one foot on a stool. Straighten your leg and reach with both hands down either side of your leg. Reach as far down your leg as you can. Hold for about 20 seconds. Go back to the starting position. Then repeat 5 times. Switch legs. Build Strength Resistance exercises help build strength. You can do them without equipment. Or you can use weights, elastic bands, or special machines. One such exercise is called the biceps curl. You can hold a 1 pound weight or even a can of soup. Do this exercise at least 3 times a week. Strive for everyday. Sit up straight in a chair. Keep your elbow close to your body and your wrist straight. Bend your arm, moving your hand up to your shoulder. Then slowly lower your arm. Repeat 5 times. Switch to the other arm. Build Your Staying Power Aerobic exercises make your heart and lungs stronger so you can keep moving longer. Walking and swimming are two of the best types of exercises you can do. Using a stationary bike is great, too. Find an aerobic exercise that you enjoy. Start slowly and build up. Even 5 minutes is helpful. Aimfor a goal of 30 minutes, at least 3 times a week. You dont have to do 30 minutes in one session. Break it up and walk a little throughout the day. More Helpful Tips Start easy. Slowly work up to doing more. Talk with your healthcare provider about the best exercises for you. Call senior centers or health clubs about exercise programs. If needed, have a family member watch you walk every so often to check your stability. Exercise with a friend. Choose an activity you both enjoy. Try exercises that you can do anytime, anywhere. Here are two examples. Have someone with you when you first try these: Practice walking by placing one foot right in front of the other. Stand up and sit down 10 times. Repeat this throughout the day. Ander Patient Education Copyright 2008 - 2010 Ander except where otherwise noted. Preventing Falls: Moving Safely Using a Cane or Walker (This education is for all patients over 65 regardless of symptoms) Keep the cane away from your feet so you dont trip. A walking aid, such as a cane or walker, can help you stay more independent and avoid falls. Remember to keep your walking aid within easy reach when youre in a chair or in bed. And learn how to use it safely so you dont injure yourself. Using a Cane If you have a stronger side, hold the cane on that side. Get your balance. Move the cane and your weaker leg forward. Support your weight on both the cane and your weaker side. Step with your stronger leg. Start again from step 1. If youre using a folding walker, be sure you know how to lock it open. Check that its locked open before each use. Using a Walker Roll the walker (or lift it, if youre using one without wheels) forward about 12 inches. Step forward with your weaker leg first. Use the walker to help keep your balance. Bring your other foot forward to the center of the walker. Start again from step 1. Helpful Tips Check with your healthcare provider about the right walking aid to use. Ask about a walker with a seat attached. Check the tips of your cane or walker to make sure they have nonskid covers. Move slowly from room to room. Dont harrell. Sit down to get dressed. Use a sabrina pack or backpack to keep your hands free. Get help for jobs that mean climbing, even on a stepstool. Ander Patient Education Copyright 2008 - 2010 Ander except where otherwise noted. Urinary Incontinence Plan of Care Documentation: (This education is for all patients over 65 regardless of symptoms) Current medications reconciled. Patient encouraged to: Practice kegal exercises Provide education materials Use the restroom every 2 hours throughout the day Limit caffeine, alcohol, spicy foods and acidic foods Keep a bladder diary Limit fluid intake 3-4 hours before bed Lose weight Prevent constipation Take fluid pills at a time when you can get to the bathroom quickly Control sugar better if diabetic Limit fluid intake to 60 oz. per day Wear support stockings (TEDs)if you have edema Damari Mcclendon LPN 03/05/2024 Kegel Exercises Kegel exercises dont require special clothing or equipment. Theyre easy to learn and simple to do. And if you do them right, no one can tell youre doing them, so they can be done almost anywhere. Your doctor, nurse, or physical therapist can answer any questions you have and help you get started. A Weak Pelvic Floor The pelvic floor muscles may weaken due to aging, and vaginal childbirth, injury, surgery, chronic cough, or lack of exercise. If the pelvic floor is weak, your bladder and other pelvic organs may sag out of place. The urethra may also open too easily and allow urine to leak out. Kegel exercises can help you strengthen your pelvic floor muscles so they can better support the pelvic organs and control urine flow. How Kegel Exercises Are Done Try each of the Kegel exercises described below. When youre doing them, try not to move your leg, buttock, or stomach muscles. While youre urinating, try to stop the flow of urine. Start and stop it as often as you can. Contract as if you were stopping your urine stream, but do it when youre not urinating. Tighten your rectum as if trying not to pass gas. Contract your anus, but dont move your buttocks. Helpful Hints Do your Kegels as often as you can. The more you do them, the faster youll feel the results. Pick an activity you do often as a reminder. For instance, do your Kegels every time you sit down. Tighten your pelvic floor before you sneeze, get up from a chair, cough, laugh, or lift. This protects your pelvic floor from injury and can help prevent urine leakage. Try to hold each Kegel for a slow count to five. You probably wont be able to hold them for thatlong at first, but keep practicing. It will get easier as your pelvic floor gets stronger. Eventually, special weights that you place in your vagina may be recommended to help make your Kegels even more effective. Ander Patient Education Copyright 2008 - 2010 Ander except where otherwise noted. Here are some helpful tips for your urinary incontinence: (This education is for all patients over 65 regardless of symptoms) Practice Kegel exercises Use the restroom every 2 hours throughout the day Limit caffeine, alcohol, spicy foods, and acidic foods Keep a bladder diary Limit fluid intake 3-4 hours before bed Lose weight Prevent constipation Take fluid pills at a time when can get to the bathroom quickly Control sugar better if diabetic Limit fluid intake to 60 oz. per day Any questions, please feel free to contact our office. documented in this encounter Progress Notes * Jonny Donaldson MD - 03/05/2024 8:19 PM EST Images from the original note were not included. Subjective Mariia Liao is a 68 year old female presenting for Return Visit (Follow up-several concerns to discuss. ) Here w/. History of Present Illness The patient, with a history of diabetes, foot ulcer, and weight gain, presents with multiple complaints. The chief complaint is lower back pain, which has developed since the removal of a boot worn for a foot ulcer on right foot. The pain is severe enough to cause the patient to bend over and hold onto the counter for support. The patient also reports shoulder and armpit pain on the right side, which has been present for a few months. The pain is localized and does not radiate. The patient also reports sleep talking, which has been occurring for a few months. The patient's confirms that the patient has full-fledged, loud conversations during sleep. The patient also reports urinary incontinence, which has been ongoing. The patient describes a sudden urge to urinate, often resulting in leakage before reaching the bathroom. Has seen Dr Pantoja in past. The patient also reports numbness in the fingers, specifically in the right hand. The numbness is localized to the pinky and ring fingers and does not radiate up the arm. The patient also reports a burning sensation in the same area. The patient also mentions weight gain, despite a decrease in sugar levels. The patient's weight hasbeen stable around 240-250 pounds, despite efforts to lose weight. The patient also reports constant swelling in the feet and legs. Objective Blood pressure 122/68, pulse 83, resp. rate 16, last menstrual period 03/13/2008. Physical Exam Gen-NAD HEENT NCAT CV RRR +S1 s2 Lungs CTA b/l Extrem- no edema b/l Mskel limited ROM back, altered gait, with cane Neuro-no tremor. Results LABS Reviewed /ordered Assessment and Plan Assessment & Plan Lower Back Pain New onset of pain in the lower back, exacerbated by standing. Likely secondary to altered gait due to recent use of a boot for a foot ulcer. -Refer to [facility] for evaluation and treatment. Foot Ulcer Healed foot ulcer, with residual dry blood and new skin. No signs of re-opening or infection. -Continue current management with Dr. Germain. Diabetes Mellitus Recent improvement in blood glucose control, with A1C dropping from 9.1 to 7.6. Patient reports frequent hypoglycemic episodes at night, possibly indicating a need for adjustment in insulin regimen. -cont MTM--will switch to [place] as closer to home. -discussed insulin can contribute to difficulty losing weight, but overall beneficial for her health. Weight Gain Recent weight gain despite improved blood glucose control and dietary changes. Possible contributing factors include use of amitriptyline, sertraline, and insulin. -Continue current management and monitor weight closely. Urinary Incontinence Ongoing issue with urinary incontinence, despite use of estradiol. Some improvement noted with estradiol use. -Refer to Dr. Pantoja, urogynecologist, for further evaluation and management. Consider pelvic physicaltherapy. Shoulder/Armpit Pain New onset of pain in the right shoulder and armpit, possibly related to a nerve issue. -Include in the physical therapy referral for concurrent management. Ulnar Neuropathy New onset of pain and numbness in the right hand, affecting the pinky and ring fingers. 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 -Consider referral for EMG testing if symptoms persist or worsen. Sleep Talking New onset of sleep talking, with no associated sleepwalking or other movements. Possible early signof a neurological disorder such as Parkinson's disease -Monitor closely for any additional neurological symptoms. {atient reports a familial history of Parkinson's disease and has noticed a tremor in her hands. However, the tremor is task-specific and not present at rest, which is less concerning. -Monitor closely for any additional neurological symptoms. Risk and functional assessment (Primary) Ulcer of toe of right foot, unspecified ulcer stage ([facility]) Urge incontinence of urine Type 2 diabetes mellitus with diabetic nephropathy, with long-term current use of insulin ([facility]) HTN, goal below 130/80 S/P drug eluting coronary stent placement SVT (supraventricular tachycardia) ([facility]) PAD (peripheral artery disease) ([facility]) Carotid artery stenosis without cerebral infarction, left S/P CABG x 3 COPD, group A, by GOLD 2017 classification ([facility]) Chronic bilateral low back pain without sciatica - PHYSICAL THERAPY REFERRAL OP Chronic right shoulder pain - PHYSICAL THERAPY REFERRAL OP Wrap-Up Follow Up: Return in about 3 months (around 06/03/2024) for Return with Physician. | For: Return withPhysician | Check-out note: Needs update MTM appt in [facility] Also f/u Dr Scarlett Trivedi F/u wy private slot 3mo & 6mo. Also 40min 1 y. Time: I spent a total of 40-54 minutes (exact time 43 mins) on the date of service in preparation, delivery, and documentation of the care provided to Mariia Liao excluding any time spent in the performance of separately billed services. Text in this note was generated using an ambient documentation service. I discussed the use of a device to record and summarize our discussion today. All persons present during the encounter consented to its use. * Damari Mcclendon LPN - 03/05/2024 4:03 PM EST Urinary Incontinence Plan of Care Documentation: (This education is for all patients over 65 regardless of symptoms) Current medications reconciled. Patient encouraged to: Practice kegal exercises Provide education materials Use the restroom every 2 hours throughout the day Limit caffeine, alcohol, spicy foods and acidic foods Keep a bladder diary Limit fluid intake 3-4 hours before bed Lose weight Prevent constipation Take fluid pills at a time when you can get to the bathroom quickly Control sugar better if diabetic Limit fluid intake to 60 oz. per day Wear support stockings (TEDs)if you have edema Damari Mcclendon LPN 03/05/2024 documented in this encounter Nursing Notes * Damari Mcclendon LPN - 03/05/2024 4:05 PM EST The patient has been properly identified by confirmation of name and date of . Chief Complaint Patient presents with Return Visit Follow up-several concerns to discuss. documented in this encounter Plan of Treatment Upcoming Encounters Date Type Department Care Team (Late st Contact Info) Description 03/08/2024 9:00 AM EST Pharmacy Pharmacy, [address] [place] [address] [place] [address] 05/29/2024 11:00 AM EDT Appointment Vascular Lab [address] [address] 05/29/2024 11:30 AM EDT Appointment Vascular Lab [address] [address] 05/29/2024 12:00 PM EDT Office Visit Vascular [facility] [place] [address] [place] [address] Willian Rosas MD [address] [place] [address] 06/04/2024 1:30 PM EDT Office Visit Urogynecology [facility] [address] [place] [address] Cristopher Pantoja MD [address] [place] [address] 06/10/2024 11:20 AM EDT Office Visit [facility] [address] [place] [address] Jonny Donaldson MD [address] [place] [address] 09/17/2024 10:00 AM EDT Imaging Radiology [address] [place] [address] 09/20/2024 12:00 PM EDT Office Visit [facility] [address] [place] [address] Jonny Donaldson MD [address] [place] [address] 03/28/2025 12:00 PM EST Office Visit [facility] [address] [place] [address] Jonny Donaldson MD [address] [place] [address] Scheduled Referrals Name Type Priority Associated Diagnoses Orde r Schedule PHYSICAL THERAPY REFERRAL OP Referral Within 10 days (routine) Chronic bilateral low back pain without sciatica Chronic right shoulder pain Ordered: 03/05/2024 Health Maintenance Due Date Last Done Comments [...] FOR COPD 06/08/2024 06/09/2023 HbA1c 08/26/2024 02/26/2024, 1 07/2023, 07/05/2023, Additional history exists Mammogram 09/12/2024 09/13/2023, [...] this encounter Medical Devices Implanted Type Area Daycare Manager Device Identifier Shelf Expiration Date Model / Serial / Lot Greater Than 80cm, 3mm-8mm Flora, Angiograft Pvd Saphenous Veins, Cryopreserved Implanted:Qty: 1 on 01/19/2023 by [place]ian Rosas [place] [facility] [place] Leg Upper LIFENET 07/29/2026 CV>80 / [id number] / [id number] documented as of this encounter Visit Diagnoses Diagnosis Risk and functional assessment- Primary Screening for unspecified condition Ulcer of toe of right foot, unspecified ulcer stage ([facility]) Urge incontinence of urine Urge incontinence Type 2 diabetes mellitus with diabetic nephropathy, with long-term current use of insulin ([facility]) HTN, goal below 130/80 Unspecified essential hypertension S/P drug eluting coronary stent placement Postsurgical percutaneous transluminal coronary angioplasty status SVT (supraventricular tachycardia) ([facility]) Other specified cardiac dysrhythmias PAD (peripheral artery disease) ([facility]) Peripheral vascular disease, unspecified Carotid artery stenosis without cerebral infarction, left S/P CABG x 3 Postsurgical aortocoronary bypass status COPD, group A, by GOLD 2017 classification (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
--- OUTSIDE RECORDS SUMMARY | 2024-04-26 14:43 | External Medical Summary | Summary of Care ---
Author Name Unknown Organization [facility] Address [address] [place] [address] Phone [phone] Care Team Providers Care Clinical Trial Assistant Name Role Phone Jonny Donaldson MD Primary Care Provider + Reason for Visit * Reason Onset Date Comments Medication Refill 02/23/2024 Encounter Details Date Type Department Care Team (Late st Contact Info) Description 02/23/2024 Refill Urogynecology [facility] [address] [place] [address] Cristopher Pantoja MD [address] [place] [address] Allergies Active Allergy Reactions Criticality Noted Date Comments Cephalexin 01/28/1996 rash Doxepin 02/01/2018 Dust 04/04/2001 Nickel Anaphylaxis High 04/04/2001 Paroxetine 04/28/2003 generic only, brand ok Penicillins 03/03/1995 Rash Sulfa Antibiotics 11/27/1994 Rash documented as of this encounter (statuses as of 03/02/2024) Medications ASPIRIN EC 81 MG PO TBECIndications: [...] bedtime. 75 mL 3 08/11/19 24 Active LORazepam 0.5 MG Oral Tablet (Ativan)Indicati ons:Anxiety state Take 1 Tablet by mouth every 8 hours as needed for Anxiety or Insomnia. 40 Tablet 08/25/19 24 Active NATURAL SUPPLEMENT Take by mouth [...] as needed (pain). 60 Tablet 10/12/19 24 Active Fiasp FlexTouch 100 UNIT/ML Subcutaneous Solution [...] MEALS diabetes 270 Tablet 12/26/19 24 Active Gabapentin 600 MG Oral Tablet (Neurontin)Indic ations:Leg cramping,Restles s legs syndrome TAKE 1 TABLET IN THE MORNING, 1 TABLET AT NOON AND 1 TABLET BEFORE BEDTIME; INCREASE DOSE 04/07/23 90 Tablet 5 01/03/20 24 Active Ketoconazole 2 % External Cream Apply topically to affected area 2 times a day. Apply to belly skin fold until rash improved. 30 g 1 01/10/20 24 Active Empagliflozin 10 MG Oral Tablet [...] at bedtime 42.5 g 03/02/19 25 Active Estradiol 0.1 MG/GM Vaginal Cream (Estrace) Apply pea sized amount (0.5 gm) vaginally twice a week at bedtime 42.5 g 3 12/01/19 23 024 Discontin ued(Refil l) documented as of this encounter (statuses as of 03/02/2024) Active Problems Problem Noted Date Diagnosed Date [...] of the RCA 04/27/[address] Whyte [facility]. History of nonmelanoma skin cancer [...] disease) 06/27/2013 Overview (06/27/2013): 06/24/13 +CP-abnormal stress->cath @[facility]. 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 [...] Medical Center Episode June 2011 around 03/12/12 [place] [facility]-[id number] SVT--sched for [place] EP study Routine general medical exam ination at a health care facility 11/11/2011 Overview (07/05/2023): Cards--Dr Jeffrey Jalloh. 03/03/23 TTE [facility] normal EF, moderate LVH. Mild hypokinesis of apical septum. 01/18 Carotid US [place] stable 50-69 on left. 10/18 colonoscopy [facility] 3 3-5 polyps PATH colon-polypoid mucosa mild hyperplastic changes. Rectal polyp= hyperplastic polyp. Dr Juan Mak [facility] (11/19 06/14 Cologuard WNL. Cardiology-Jeffrey Campos [place]. 12/17 Carotid 50-69% left ICA stenosis. Vielka [...] PFT evidence of COPD ) 05/10 TTE @[place] Nrmcznwcsq-melw-vyzbez EF, mild LVH, Gr1 Feldman Dys 07/09 colonoscopy [facility] End[facility] [place]-3 & 6mm polyp--PAth--Tubular adenoma 07/09 [place] TSH & celiac testing WNL 04/11 ER visit [facility] SVT--resolved with adenosine. 03/11 EKG-scanned QTc [...] as of this encounter (statuses as of 03/02/2024) Resolved Problems Problem Noted Date Diagnosed Date [...] as of this encounter (statuses as of 03/02/2024) Immunizations Name Administration Dates Next Due COVID-19 mRNA, LNP-s, No Pre serve, 2-Dose Series ([email or web address][employer]Mx) 01/24/2021,01/04/2021,06/03/2020 Hepatitis B, 20+ yrs 08/27/2009,03/30/2009,02/27 Pneumococcal [...] encounter Miscellaneous Notes * Telephone Encounter - Cristopher Pantoja MD - 03/02/2024 3:49 PM ESTSigned Prescriptions: Disp Refills Estradiol 0.1 MG/GM Vaginal Cream (Estrace)42.5 g 0 Sig: Apply pea sized amount (0.5 gm) vaginally twice a week at bedtime Authorizing Provider: CRISTOPHER PANTOJA * Telephone Encounter - Kateryna Olguin RN - 03/01/2024 1:35 PM ESTPending Prescriptions: Disp Refills Estradiol 0.1 MG/GM Vaginal Cream (Estrace)42.5 g 0 Sig: Apply pea sized amount (0.5 gm) vaginally twice a week at bedtime * Telephone Encounter - Kateryna Olguin RN - 03/01/2024 1:29 PM EST Pt needs follow up with [employer]--last seen 2022 [facility] has openings. I attempted to call---no answer or voicemail MyG to pt will ask for one refill documented in this encounter Plan of Treatment Upcoming Encounters Date Type Department Care Team (Late st Contact Info) Description 03/05/2024 3:40 PM EST Office Visit Family Practice [facility] [address] [facility] [place] [address] Jonny Donaldson MD [address] [place] [address] 05/29/2024 11:00 AM EDT Appointment Vascular Lab [address] [address] 05/29/2024 11:30 AM EDT Appointment Vascular Lab [place] [address] [place] [address] 05/29/2024 12:00 PM EDT Office Visit Vascular Surg [facility] [address] [place] [address] Willian Rosas MD [address] [place] [address] 09/17/2024 10:00 AM EDT Imaging Radiology [address] [place] [address] Health Maintenance Due Date Last Done Comments [...] this encounter Medical Devices Implanted Type Area Chief Counsel Device Identifier Shelf Expiration Date Model / Serial / Lot Greater Than 80cm, 3mm-8mm Flora, Angiograft Pvd Saphenous Veins, Cryopreserved Implanted:Qty: 1 on 01/19/2023 by Willian Rosas MD at [facility] Right: Leg Upper LIFENET 07/29/2026 CV>80 / [id number] / [id number] documented as of this encounter Advance [...] Advance Directives occurred with: Patient Care Teams Clinical Trial Assistant Relationship Specialty Start Date End Date Jonny Donaldson MD [address] [facility] [place] [address] PCP - General Family Medicine 05/27/14 documented as of this encounter
--- OUTSIDE RECORDS SUMMARY | 2024-04-26 14:44 | External Medical Summary ---
Author Name Unknown Address Unknown Organization K01:[facility] [place] [address] [facility] [address] Laboratory Report Ordering Provider Test Date Status AARTI CHEN 02/26/2024 09:32:49 Final Observation Date Value Abnormality Reference (Units ) Status Color of Urine by Auto 02/26/2024 09:32:49 Light Yellow Colorless, Light Yellow, Yellow, Dark Yellow Final Clarity, Urine 02/26/2024 09:32:49 Clear Clear Final Glucose [Mass/volume] in Urine by Automated test strip 02/26/2024 09:32:49 >=1000 Abnormal Negative (mg/dL) Final Bilirubin.total [Presence] in Urine by Automated test strip 02/26/2024 09:32:49 Negative Negative Final Ketones [Mass/volume] in Urine by Automated test strip 02/26/2024 09:32:49 Negative Negative (mg/dL) Final Specific gravity, Urine 02/26/2024 09:32:49 1.015 1.003-1.030 Final Hemoglobin [Presence] in Urine by Automated test strip 02/26/2024 09:32:49 Negative Negative Final pH, Urine 02/26/2024 09:32:49 6.0 5.0-7.5 (Units) Final Protein [Mass/volume] in Urine by Automated test strip 02/26/2024 09:32:49 30 Abnormal Negative (mg/dL) Final Urobilinogen [Mass/volume] in Urine by Automated test strip 02/26/2024 09:32:49 Normal Normal (mg/dL) Final Nitrite [Presence] in Urine by Automated test strip 02/26/2024 09:32:49 Negative Negative Final Leukocyte esterase [Presence] in Urine by Automated test strip 02/26/2024 09:32:49 Large Abnormal Negative Final RBC, Urine 02/26/2024 09:32:49 6-9 Abnormal 0-2 (/HPF) Final WBC, Urine 02/26/2024 09:32:49 50+ Abnormal 0-2 (/HPF) Final Bacteria [#/area] in Urine sediment by Microscopy high power field 02/26/2024 09:32:49 0-25 0-25 (/HPF) Final Yeast [#/area] in Urine sediment by Microscopy high power field 02/26/2024 09:32:49 Present Abnormal None (/HPF) Final Leukocyte clumps [#/area] in Urine sediment by Microscopy high power field 02/26/2024 09:32:49 Present Abnormal None (/HPF) Final Performing Location [facility] [place] [address] [facility] [address]
--- OUTSIDE RECORDS SUMMARY | 2024-04-26 14:44 | External Medical Summary ---
Author Name Unknown Address Unknown Organization [id number]:[facility]ORY [facility] [place] - [address] [facility] [address] [facility] [address] Laboratory Report Ordering Provider Test Date Status AARTI CHEN 02/26/2024 09:32:49 Final Observation Date Value Abnormality Reference (Units ) Status HbA1C 02/26/2024 09:32:49 7.6 Above high normal 4. 0-5.6 (%) Final The use of HbA1c to monitor glycemic status is based on normal hemoglobin and HbA composition. This test should not be used in patients with abnormal hemoglobin that affects the half life of the red blood cell or the in vivo glycation rates. Glucose, estimated average 02/26/2024 09:32:49 171 Above high normal <126 (mg/dL) Dayo sanders Performing Location LABORATORY [facility] [place] - [address] [facility] [address]
--- OUTSIDE RECORDS SUMMARY | 2024-04-26 14:44 | External Medical Summary ---
Author Name Unknown Address Unknown Organization K01[place] [facility] [place] [address] [place] [address] Laboratory Report Ordering Provider Test Date Status AARTI CHEN 02/26/2024 09:32:49 Final Observation Date Value Abnormality Reference (Units ) Status LDL, (direct) 02/26/2024 09:32:49 44 <=129 (mg/dL) Final LDL Cholesterol Reference Ra nges (mg/dL):
<70 Target level for high risk ASCVD patient
<100 Optimal for general population
100-129 Near optimal for general population
130-159 Borderline high
160-189 High
>=190 Very high Performing Location LAB[facility]ATORY [facility] - [address] [place] [address]
--- OUTSIDE RECORDS SUMMARY | 2024-04-26 14:44 | External Medical Summary ---
Author Name Unknown Address Unknown Organization K01:[facility] [place] [address] [place] [address] Laboratory Report Ordering Provider Test Date Status AARTI CHEN 02/26/2024 09:32:49 Final Observation Date Value Abnormality Reference (Units ) Status Triglyceride 02/26/2024 09:32:49 193 Above high normal <=174 (mg/dL) Final Triglyceride Reference Range s (mg/dL):
<150 Acceptable
150-174 Borderline high
175-499 High
>=500 Very high Cholesterol 02/26/2024 09:32:49 104 <200 (mg /dL) Final Total Cholesterol Reference Ranges (mg/dL):
<200 Desirable
200-239 Borderline high
>=240 High HDL 02/26/2024 09:32:49 32 Below low normal >49 (mg/dL) Final HDL Cholesterol Reference Ra nges (mg/dL):
>=60 High (Desirable)
<50 Low (Undesirable) For Females
<40 Low (Undesirable) For Males NON-HDL CHOLESTEROL 02/26/2024 09:32:49 72 <=159 (mg/dL) Final Non-HDL Cholesterol Referenc e Range (mg/dL):
<100 Target level for high risk ASCVD patient
<130 Optimal for general population
130-159 Near optimal for general population
160-189 Borderline High
190-219 High
>=220 Very High Performing Location LAB[facility] - [address] [place] [address]
--- OUTSIDE RECORDS SUMMARY | 2024-04-26 14:44 | External Medical Summary | Summary of Care ---
Author Name Unknown Organization [facility] Address [address] [place] [address] Phone [phone] Care Team Providers Care Auto Damage Estimator Name Role Phone Jonny Donaldson MD Primary Care Provider + Reason for Visit * Reason Onset Date Comments Medication Problem 02/29/2024 Encounter Details Date Type Department Care Team (Late st Contact Info) Description 02/29/2024 Telephone Pharmacy, [facility] [address] [facility] [place] [address] Pharmacist1, [facility] [address] [place] [address] Medication Problem Allergies Active Allergy Reactions Criticality Noted Date [...] at bedtime 42.5 g 3 12/01/19 23 Active Additional Information Patient not taking.Reported on [...] goal of less than 8.0% ([facility]) Inject 2 mg under the [...] day 200 Each 3 02/23/20 24 Active Insulin Lispro (1 Unit Dial) 100 UNIT/ML Subcutaneous Solution Pen-injector (HumaLOG KwikPen)Indicati ons:Type 2 diabetes mellitus with hemoglobin A1c goal of less than 8.0% (HCC) Inject 26 with breakfast, 14 units with lunch, 20 units with dinner or as directed. Substitute for Fiasp until available. 60 mL 1 02/28/19 25 Active Insulin Lispro (1 Unit Dial) 100 UNIT/ML Subcutaneous Solution Pen-injector (HumaLOG KwikPen)Indicati ons:Type 2 diabetes mellitus with hemoglobin A1c goal of less than 8.0% (HCC) Inject 26 with breakfast, 14 units with lunch, 20 units with dinner or as directed. Substitute for Fiasp until available. 60 mL 1 02/01/20 24 025 Discontin ued(Refil l) documented as [...] of the RCA 04/27/[address] Whyte [facility]. History of nonmelanoma skin cancer 05/25/2022 [...] Overview (04/25/2012): 04/20/12 AV Ablation-Dr Jeffrey Campos, [facility] Episode June 2011 around 03/12/12 [place] [facility]-P175 SVT--sched for [place] EP study Routine general medical exam ination at a health care facility 11/11/2011 Overview (07/05/2023): Cards--Dr Jeffrey Campos [place]. 03/03/23 TTE [facility] normal EF, moderate LVH. Mild hypokinesis of apical septum. 01/18 Carotid US [place] stable 50-69 on left. 10/18 colonoscopy [facility] 3 3-5 polyps [address] colon-polypoid mucosa mild hyperplastic changes. Rectal polyp= hyperplastic polyp. Dr Juan Mak [facility] (11/19 06/14 Cologuard WNL. Cardiology-Jeffrey Campos [place]. 12/17 Carotid 50-69% left ICA stenosis. Vielka [...] PFT evidence of COPD ) 05/10 TTE @[place] Lzhamqiooj-rupp-qrnmxs EF, mild LVH, Gr1 Feldman Dys 07/09 colonoscopy [facility] [place]-3 & 6mm polyp--PAth--Tubular adenoma 07/09 [place] TSH & celiac testing WNL 04/11 ER visit [facility] SVT--resolved with adenosine. 03/11 EKG-scanned QTc 414 [...] mRNA, LNP-s, No Pre serve, 2-Dose Series (Veritext) 01/24/2021,01/04/2021,06/03/2020 Hepatitis B, 20+ yrs 08/27/2009,03/30/2009,02/27 Pneumococcal [...] encounter Miscellaneous Notes * Telephone Encounter - John Squires RPh - 02/29/2024 11:30 AM EST Patient Phone Numbers Caller's name: Mell Preferred call back number(OFFICE NUMBER FOR ): [phone] Reason for call: Mell calling in from [employer] to inform [facility] that Fiasp Flextouch pen and vials are currently on backorder since Monday with no set date on when they will be receiving medication. They are unable to fill prescription at this time. Rx changed to Humalog for short term fill. John Beltran RPh, [facility] Clinical Pharmacist [facility] 02/29/2024, 11:32 AM * Telephone Encounter - Milagro Feliz CPhT - 02/29/2024 11:18 AM EST Caller's name: Mell Preferred call back number(OFFICE NUMBER FOR ): [phone] Reason for call: Mell calling in from [facility] to inform [facility] that Fiasp Flextouch pen and vials are currently on backorder since Monday with no set date on when they will be receiving medication. They are unable to fill prescription at this time. Thank you, Milagro Feliz Electrical Manufacturing Engineer [facility] 02/29/2024,11:18 AM documented in this encounter Plan of Treatment Upcoming Encounters Date Type Department Care Team (Late st Contact Info) Description 03/05/2024 3:40 PM EST Office Visit Family [facility] [address] [facility] [place] [address] Jonny Donaldson MD [address] [facility] [place] [address] 05/29/2024 11:00 AM EDT Appointment Vascular Lab [address] [address] 05/29/2024 11:30 AM EDT Appointment Vascular Lab [address] [address] 05/29/2024 12:00 PM EDT Office Visit Vascular Surg [address] [address] Willian Rosas MD [address] [place] [address] 09/17/2024 10:00 AM EDT Imaging Radiology [address] [place] [address] Health Maintenance Due Date Last Done Comments [...] this encounter Medical Devices Implanted Type Area Technical Account Manager Device Identifier Shelf Expiration Date Model / Serial / Lot Greater Than 80cm, 3mm-8mm Flora, Angiograft Pvd Saphenous Veins, Cryopreserved Implanted:Qty: 1 on 01/19/2023 by Willian Rosas MD at [facility] Right: Leg Upper LIF[employer]ET 07/29/2026 CV>80 / [id number] / [id number] documented as of this encounter Visit Diagnoses Diagnosis Type 2 diabetes mellitus with hemoglobin A1c goal of less than 8.0% ([facility]) Screening mammogram for breast cancer [...] Advance Directives occurred with: Patient Care Teams Auto Damage Estimator Relationship Specialty Start Date End Date Jonny Donaldson MD [address] [place] [address] PCP - General Family Medicine 05/27/14 documented as of this encounter
--- OUTSIDE RECORDS SUMMARY | 2024-04-26 14:44 | External Medical Summary ---
Author Name Unknown Address Unknown Organization K01:LABORATORY [facility] [place] - [address] [place] [address] Laboratory Report Ordering Provider Test Date Status AARTI CHEN 02/26/2024 09:32:49 Final Observation Date Value Abnormality Reference (Units ) Status Vitamin B12 02/26/2024 09:32:49 [phone] (pg/mL) Final Performing Location LAB[facility]ORY [facility] - [address] [place] [address]
--- OUTSIDE RECORDS SUMMARY | 2024-04-26 14:44 | External Medical Summary | Summary of Care ---
Author Name Unknown Organization [facility] Address [address] [place] [address] Phone [phone] Care Team Providers Care Tea Bag Machine Tender Name Role Phone Jonny Donaldson MD Primary Care Provider + Reason for Visit * Reason Comments Outpatient Testing Encounter Details Date Type Department Care Team (Late st Contact Info) Description 02/26/2024 9:30 AM EST Laboratory Laboratory [address] [place] [phone] [place] [address] Type 2 diabetes mellitus with diabetic nephropathy, with long-term current use of insulin ([facility]); Encounter for long-term (current) use of medications; Type 2 diabetes mellitus with hemoglobin A1c goal of less than 8.0% ([facility]); Dysuria Allergies Active Allergy Reactions Criticality Noted Date Comments Cephalexin 01/28/1996 rash Doxepin 02/01/2018 Dust 04/04/2001 Nickel Anaphylaxis High 04/04/2001 Paroxetine 04/28/2003 generic only, brand ok Penicillins 03/03/1995 Rash Sulfa Antibiotics 11/27/1994 Rash documented as of this encounter (statuses as of 02/26/2024) Medications ASPIRIN EC 81 MG PO TBECIndications: Type II or unspecified type diabetes mellitus with renal manifestations, uncontrolled(250 .42) ([facility]) Take one pill daily 100 [...] less than 8.0% ([facility]) Inject 2 mg under the skin once [...] sugar). 100 Each 2 4 Active OneTouch Verjoselo In Vitro Strip (Glucose Blood)Indication s:Type 2 [...] in the morning. 90 Tablet 4 Active Insulin Lispro (1 Unit Dial) 100 UNIT/ML Subcutaneous Solution Pen-injector (HumaLOG KwikPen)Indicati ons:Type 2 diabetes mellitus with hemoglobin A1c goal of less than 8.0% (HCC) Inject 26 with breakfast, 14 units with lunch, 20 units with dinner or as directed. Substitute for Fiasp until available. 60 mL 1 4 Active BD Pen Needle Tanja U/F 32G X 4 MM (Insulin Pen Needle)Indicatio ns:Type 2 diabetes mellitus with hemoglobin A1c goal of less than 8.0% (HCC) USE TO INJECT INSULIN 2-3 times per day 200 Each 3 4 Active documented as of this encounter (statuses as of 02/26/2024) Active Problems Problem Noted Date Diagnosed Date [...] of the RCA 04/27/[address] Whyte [facility]. History of nonmelanoma [...] disease) 06/27/2013 Overview (06/27/2013): 06/24/13 +CP-abnormal stress->cath @[facility]. 100% occlusion RCA with left- [...] Overview (04/25/2012): 04/20/12 AV Ablation-Dr Jeffrey Campos, [facility] Episode June 2011 around 03/12/12 [place] hosp-P175 SVT--sched for [place] EP study Routine general medical exam ination at a health care facility 11/11/2011 Overview (07/05/2023): Cards--Dr Jeffrey Campos [place]. 03/03/23 TTE [facility] normal EF, moderate LVH. Mild hypokinesis of apical septum. 01/18 Carotid US [place] stable 50-69 on left. 10/18 colonoscopy [facility] 3 3-[address] colon-polypoid mucosa mild hyperplastic changes. Rectal polyp= hyperplastic polyp. Dr Juan Mak [facility] (11/19 06/14 Cologuard WNL. Cardiology-Jeffrey Campos [place]. 12/17 Carotid 50-69% left ICA stenosis. Vielka [...] PFT evidence of COPD ) 05/10 TTE @[place] Kqxvmbnnno-zjlj-bkeetd EF, mild LVH, Gr1 Feldman Dys 07/09 colonoscopy [facility] [place]-3 & 6mm polyp--PAth--Tubular adenoma 07/09 [place] TSH & celiac testing WNL 04/11 ER [...] as of this encounter (statuses as of 02/26/2024) Resolved Problems Problem Noted Date Diagnosed Date [...] as of this encounter (statuses as of 02/26/2024) Immunizations Name Administration Dates Next Due COVID-19 mRNA, LNP-s, No Pre serve, 2-Dose Series ([employer]) 01/24/2021,01/04/2021,06/03/2020 Hepatitis B, 20+ yrs 08/27/2009,03/30/2009,02/27 Pneumococcal [...] 03/05/2024 3:40 PM EST Office Visit Family [facility] [address] [place] [address] Jonny Donaldson MD [address] [place] [address] 05/29/2024 11:00 AM EDT Appointment Vascular Lab [address] [address] 05/29/2024 11:30 AM EDT Appointment Vascular Lab [address] [address] 05/29/2024 12:00 PM EDT Office Visit Vascular Surg [address] [place] [address] Willian Rosas MD [address] [place] [address] 09/17/2024 10:00 AM EDT Imaging Radiology [address] [place] [address] Pending Results Name Type Priority Associated Diagnoses Date /Time HEMOGLOBIN A1C Lab Routine Type 2 diabetes mellitus with diabetic nephropathy, with long-term current use of insulin ([facility]) 02/26/2024 9:32 AM EST ALBUMIN / CREATININE RATIO, URINE Lab Routine Type 2 diabetes mellitus with diabetic nephropathy, with long-term current use of insulin ([facility]) 02/26/2024 9:32 AM EST BASIC METABOLIC PANEL Lab Routine Type 2 diabetes mellitus with diabetic nephropathy, with long-term current use of insulin ([facility]) 02/26/2024 9:32 AM EST LIPID PANEL WITH DIRECT LDL IF TG IS HIGH Lab Routine Type 2 diabetes mellitus with diabetic nephropathy, with long-term current use of insulin ([facility]) 02/26/2024 9:32 AM EST VITAMIN B12 Lab Routine Encounter for long-term (current) use of medications 02/26/2024 9:32 AM EST URINALYSIS, REFLEX TO MICROSCOPIC Lab Routine Dysuria 02/26/2024 9:32 AM EST CULTURE, URINE, QUANTITATIVE Lab Routine Dysuria 02/26/2024 9:32 AM EST Health Maintenance Due Date Last Done Comments Alpha-1 Antitrypsin 07/27/1973 Sigmoidoscopy 07/27/2000 Fecal Occult Blood Test 11/28/2009 11/28/2008 Adult Wellness Visit 07/27/2021 DXA Scan 08/01/2021 08/01/2016, 08/01/2016 Cologuard 06/27/2023 06/26/2020, 05/29, 06/06/2017 COVID-19 Vaccine ( season) 2023 01/24/2021, 01/04/2021, 06/03/2020, Additional history exists Albumin/Creatinine Ratio 12/06/2023 023, 06/25/2021, 07/30/2020, Additional history exists B-12 12/06/2023 12/05/2022, 04/2 10/2021, 11/21/2019, Additional history exists Depression Screening 12/17/2023 12/16/2022 Diabetic Foot Exam 12/17/2023 12/16/2022, 0 10/20/2020, 10/05/2017, Additional history exists HbA1c 04/14/2024 10/13/2023, 05/0 09/2023, 04/05/2023, Additional history exists O2 ASSESSMENT COMPLETED IN PAST YEAR FOR COPD 06/08/2024 06/09/2023 GFR 08/03/2024 08/04/2023, 06/0 08/2023, 07/05/2023, Additional history exists Mammogram 09/12/2024 09/13/2023, 09/0 07/2021, 11/02/2021, Additional history exists Diabetic Eye Exam 01/23/2025 01/24/2024, , 10/12/2022, Additional history exists DTap/Tdap Vaccines (3 - [...] this encounter Medical Devices Implanted Type Area Real Estate Listing Consultant Device Identifier Shelf Expiration Date Model / Serial / Lot Greater Than 80cm, 3mm-8mm Flora, Angiograft Pvd Saphenous Veins, Cryopreserved Implanted:Qty: 1 on 01/19/2023 by [place]ian Rosas [place] [facility] Leg Upper LIFENET 07/29/2026 CV>80 / [id number] / [id number] documented as of this encounter Visit Diagnoses Diagnosis Type 2 diabetes mellitus with diabetic nephropathy, with long-term current use of insulin ([facility]) Encounter for long-term (current) use of medications Encounter for long-term (current) use of other medications Type 2 diabetes mellitus with hemoglobin A1c goal of less than 8.0% ([facility]) Dysuria Screening mammogram for breast cancer documented in [...] Advance Directives occurred with: Patient Care Teams Tea Bag Machine Tender Relationship Specialty Start Date End Date Jonny Donaldson MD [address] [address] PCP - General Family Medicine 05/27/14 documented as of this encounter
--- OUTSIDE RECORDS SUMMARY | 2024-04-26 14:44 | External Medical Summary | Summary of Care ---
Author Name Unknown Organization [facility] Address [address] [place] [address] Phone [phone] Care Team Providers Care Wedding Day Coordinator Name Role Phone Jonny Broussard MD Primary Care Provider + Reason for Visit * Reason Onset Date Comments Medication Refill 02/23/2024 Encounter Details Date Type Department Care Team (Late st Contact Info) Description 02/23/[address] [facility] [address] [place] [address] Jonny Broussard MD [address] [place] [address] Type 2 diabetes mellitus with hemoglobin A1c goal of less than 8.0% ([facility]) Allergies Active Allergy Reactions Criticality Noted Date Comments Cephalexin 01/28/1996 rash Doxepin 02/01/2018 Dust 04/04/2001 Nickel Anaphylaxis High 04/04/2001 Paroxetine 04/28/2003 generic only, brand ok Penicillins 03/03/1995 Rash Sulfa Antibiotics 11/27/1994 Rash documented as of this encounter (statuses as of 02/23/2024) Medications ASPIRIN EC 81 MG PO TBECIndications: Type II or unspecified type diabetes mellitus with renal manifestations, uncontrolled(250 .42) ([facility]) Take one pill daily 100 Tab 3 [...] A1c goal of less than 8.0% ([facility]) Inject 2 mg under the skin once a week. 9 mL 3 08/02/19 24 Active Insulin Glargine Solostar 100 UNIT/ML Subcutaneous Solution Pen-injector (Raghav WilsonPen)Indicati ons:Type 2 diabetes mellitus with hemoglobin A1c [...] the morning. 90 Tablet 01/31/20 24 Active Insulin Lispro (1 Unit Dial) 100 UNIT/ML Subcutaneous Solution Pen-injector (HumaLOG KwikPen)Indicati ons:Type 2 diabetes mellitus with hemoglobin A1c goal of less than 8.0% (HCC) Inject 26 with breakfast, 14 units with lunch, 20 units with dinner or as directed. Substitute for Fiasp until available. 60 mL 1 02/01/20 24 Active BD Pen Needle Tanja U/F 32G X 4 MM (Insulin Pen Needle)Indicatio ns:Type 2 diabetes mellitus with hemoglobin A1c goal of less than 8.0% (HCC) USE TO INJECT INSULIN 2-3 times per day 200 Each 3 02/23/20 24 Active BD Pen Needle Tanja U/F 32G X 4 MM (Insulin Pen Needle)Indicatio ns:Type 2 diabetes mellitus with hemoglobin A1c goal of less than 8.0% (HCC) USE TO INJECT INSULIN 2-3 times per day 200 Each 3 12/18/19 24 024 Discontin ued(Refil l) documented as of this encounter (statuses as of 02/23/2024) Active Problems Problem Noted Date Diagnosed Date [...] RCA 04/27/[address] Whyte [facility]. History of nonmelanoma skin cancer 05/25/2022 Overview [...] disease) 06/27/2013 Overview (06/27/2013): 06/24/13 +CP-abnormal stress->cath @[facility]. 100% [...] Medical Center Episode June 2011 around 03/12/12 [place] hosp-P175 SVT--sched for [place] EP study Routine general medical exam ination at a health care facility 11/11/2011 Overview (07/05/2023): Cards--Dr Jeffrey Jalloh. 03/03/23 TTE [facility] normal EF, moderate LVH. Mild hypokinesis of apical septum. 01/18 Carotid US [place] stable 50-69 on left. 10/18 colonoscopy [facility] 3 3-[address] colon-polypoid mucosa mild hyperplastic changes. Rectal polyp= hyperplastic polyp. Dr Juan Mak [facility] (11/19 06/14 Cologuard WNL. Cardiology-Jeffrey Jalloh. 12/17 [...] PFT evidence of COPD ) 05/10 TTE @[place] Lngkozangi-oojh-umtmhv EF, mild LVH, Gr1 Feldman Dys 07/09 colonoscopy [facility] [place]-3 & 6mm polyp--PAth--Tubular adenoma 07/09 [place] TSH & celiac testing WNL 04/11 ER [...] as of this encounter (statuses as of 02/23/2024) Resolved Problems Problem Noted Date Diagnosed Date [...] as of this encounter (statuses as of 02/23/2024) Immunizations Name Administration Dates Next Due COVID-19 mRNA, LNP-s, No Pre serve, 2-Dose Series ([employer]) 01/24/2021,01/04/2021,06/03/2020 Hepatitis B, 20+ yrs 08/27/2009,03/30/2009,02/27 Pneumococcal [...] encounter Miscellaneous Notes * Telephone Encounter - Shannon Clark [facility] - 02/23/2024 9:06 PM EST Signed Prescriptions: Disp Refills BD Pen Needle Tanja U/F 32G X 4 MM (Insulin*200 Ea*3 Sig: USE TO INJECT INSULIN 2-3 times per dayAuthorizing Provider: JONNY BROUSSARD User: SHANNON CLARK documented in this encounter Plan of Treatment Upcoming Encounters Date Type Department Care Team (Late st Contact Info) Description 02/26/2024 9:30 AM EST Laboratory Laboratory [address] [place] [phone] [address] [place] [address] 03/05/2024 3:40 PM EST Office Visit [facility] [address] [address] Jonny Broussard MD [address] [place] [address] 05/29/2024 11:00 AM EDT Appointment Vascular Lab [place] [address] [place] [address] 05/29/2024 11:30 AM EDT Appointment Vascular Lab [place] [address] [place] [address] 05/29/2024 12:00 PM EDT Office Visit Vascular Surg [facility] [address] [place] [address] Willian Rosas MD [address] [place] [address] 09/17/2024 10:00 AM EDT Imaging Radiology [address] [place] [address] Health Maintenance Due Date Last Done Comments [...] this encounter Medical Devices Implanted Type Area Pier Hand Helper Device Identifier Shelf Expiration Date Model / Serial / Lot Greater Than 80cm, 3mm-8mm Flora, Angiograft Pvd Saphenous Veins, Cryopreserved Implanted:Qty: 1 on 01/19/2023 by Willian Rosas [place] [facility] [place] Leg Upper LIFENET 07/29/2026 CV>80 / [id number] / [id number] documented as of this encounter Visit Diagnoses Diagnosis Type 2 diabetes mellitus with hemoglobin A1c goal of less than 8.0% ([facility]) Screening mammogram for breast cancer documented in [...] Advance Directives occurred with: Patient Care Teams Wedding Day Coordinator Relationship Specialty Start Date End Date Jonny Broussard MD [address] [facility] [place] [address] PCP - General Family Medicine 05/27/14 documented as of this encounter
--- OUTSIDE RECORDS SUMMARY | 2024-04-26 14:44 | External Medical Summary ---
Author Name Unknown Address Unknown Organization [id number]:[facility] [place] [address] [place] [id number] Laboratory Report Ordering Provider Test Date Status AARTI CHEN 02/26/2024 09:32:49 Final Observation Date Value Abnormality Reference (Units) Status Bacteria identified in Specimen by Culture 02/26/2024 09:32:49 No significant growth Final Test: Culture, Urine, Quanti tative
Specimen Source: Urine, Clean Catch
Specimen Type: Urine
Specimen Date: 02/26/2024931
Result Date: 02/27/2024 1558
Result Status: Final result
Resulting Lab: [facility] [place]
[address]
[place] [address]

CULTURE

No significant growth

null Performing Location [facility] [place] [address] [place] [address]
--- OUTSIDE RECORDS SUMMARY | 2024-04-26 14:44 | External Medical Summary ---
Author Name Unknown Address Unknown Organization [id number]:[facility] [place] [address] [place] [address] Laboratory Report Ordering Provider Test Date Status AARTI CHEN 02/26/2024 09:32:49 Final Normal: <30 mg/g creatinine< br/>High: 30-300 mg/g creatinine
Very High: >300 mg/g creatinine
Nephrotic: >2200 mg/g creatinine Observation Date Value Abnormality Reference (Units ) Status Albumin, Urine 02/26/2024 09:32:49 17.00 (mg/dL) Final Creatinine, Urine 02/26/2024 09:32:49 39 (mg/dL) Final Albumin/Creatinine [Mass Ratio] in Urine 02/26/2024 09:32:49 436 Above high normal <30 (mg/g Creat) Final Performing Location [facility] [place] [facility] [address] [facility] [address]
--- OUTSIDE RECORDS SUMMARY | 2024-04-26 14:44 | External Medical Summary ---
Author Name Unknown Address Unknown Organization K01:[facility] [place] [address] [facility] [address] [place] [address] Laboratory Report Ordering Provider Test Date Status AARTI CHEN 02/26/2024 09:32:49 Final Observation Date Value Abnormality Reference (Units ) Status BUN 02/26/2024 09:32:49 14 6-20 (mg/dL) Final Creatinine 02/26/2024 09:32:49 0.8 0.5-1.0 (mg/dL) Final Glomerular filtration rate/1.73 sq M.predicted [Volume Rate/Area] in Serum, Plasma or Blood by Creatinine-based formula (CKD-EPI) 02/26/2024 09:32:49 81 >=60 (mL/min) Final eGFR is calculated based on the CKD-EPI 2020 equation. Sodium 02/26/2024 09:32:49 138 135-146 (m mol/L) Final Potassium 02/26/2024 09:32:49 5.3 Above high normal 3. 5-5.1 (mmol/L) Final Cl 02/26/2024 09:32:49 100 98-107 (mm ol/L) Final CO2 02/26/2024 09:32:49 26 22-32 (mmo l/L) Final Anion gap 02/26/2024 09:32:49 12 7-15 (mmol /L) Final Glucose 02/26/2024 09:32:49 155 Above high normal 70 -120 (mg/dL) Final Calcium 02/26/2024 09:32:49 9.2 8.4-10.2 ( mg/dL) Final Performing Location LAB[facility] [place] [address] [place] [address]
--- OUTSIDE RECORDS SUMMARY | 2024-04-26 14:45 | External Medical Summary | Summary of Care ---
Author Name Unknown Organization [facility] Address [address] [place] [address] Phone [phone] Care Team Providers Care Commissioner Conservation Of Resources Name Role Phone Jonny Donaldson MD Primary Care Provider + Reason for Visit * Reason Onset Date Comments Medication Refill 01/31/2024 Encounter Details Date Type Department Care Team (Late st Contact Info) Description 01/31/2024 Telephone Family Practice [facility] [address] [place] [address] Jonny Donaldson MD [address] [place] [address] Medication Refill Allergies Active Allergy Reactions Criticality Noted Date Comments Cephalexin 01/28/1996 rash Doxepin 02/01/2018 Dust 04/04/2001 Nickel Anaphylaxis High 04/04/2001 Paroxetine 04/28/2003 generic only, brand ok Penicillins 03/03/1995 Rash Sulfa Antibiotics 11/27/1994 Rash documented as of this encounter (statuses as of 02/01/2024) Medications ASPIRIN EC 81 MG PO TBECIndications: [...] Solostar 100 UNIT/ML Subcutaneous Solution Pen-injector (Raghav Flanagan)Indicati ons:Type 2 diabetes mellitus with hemoglobin [...] the morning. 90 Tablet 3 4 Active BD Pen Needle Tanja U/F 32G X 4 MM (Insulin Pen Needle)Indicatio ns:Type 2 diabetes mellitus with hemoglobin A1c goal of less than 8.0% (HCC) USE TO INJECT INSULIN 2-3 times per day 200 Each 3 4 Active OneTouch Verio w/Device KitIndications:T [...] (low sugar). 100 Each 2 4 Active Slade Estrella In Vitro Strip (Glucose Blood)Indication s:Type 2 [...] until available. 60 mL 1 4 Active documented as of this encounter (statuses as of 02/01/2024) Active Problems Problem Noted Date Diagnosed Date [...] of the RCA 04/27/[address] Whyte [facility]. History of nonmelanoma skin cancer [...] 06/27/2013 Overview (06/27/2013): 06/24/13 +CP-abnormal stress->cath @[facility]. 100% occlusion RCA with left- right [...] Medical Center Episode June 2011 around 03/12/12 [facility]-P175 SVT--sched for [facility] EP study Routine general medical exam ination at a health care facility 11/11/2011 Overview (07/05/2023): Cards--Dr Jeffrey Campos [facility]. 03/03/23 TTE [facility] normal EF, moderate LVH. Mild hypokinesis of apical septum. 01/18 Carotid US [facility] stable 50-69 on left. 10/18 colonoscopy [facility] 3 3-[address] colon-polypoid mucosa mild hyperplastic changes. Rectal polyp= hyperplastic polyp. Dr Juan Mak [facility] (11/19 06/14 Cologuard WNL. Cardiology-Jeffrey Campos [facility]. 12/17 Carotid 50-69% left ICA stenosis. Vielka [...] PFT evidence of COPD ) 05/10 TTE @[facility] Zsqfrvyesx-hxev-osfdnj EF, mild LVH, Gr1 Feldman Dys 07/09 colonoscopy [facility]oscopy [facility]-3 & 6mm polyp--PAth--Tubular adenoma 07/09 [facility] TSH & celiac testing WNL 04/11 ER visit [facility] SVT--resolved with adenosine. 03/11 EKG-scanned QTc 414 [...] as of this encounter (statuses as of 02/01/2024) Resolved Problems Problem Noted Date Diagnosed Date [...] as of this encounter (statuses as of 02/01/2024) Immunizations Name Administration Dates Next Due COVID-19 mRNA, LNP-s, No Pre serve, 2-Dose Series ([employer] 01/24/2021,01/04/2021,06/03/2020 Hepatitis B, 20+ yrs 08/27/2009,03/30/2009,02/27 Pneumococcal [...] encounter Miscellaneous Notes * Addendum Note - Lucian Squires RPh - 02/01/2024 7:44 AM ESTAddended by: LUCIAN WOOTEN V on: 02/01/2024 07:44 AM Modules accepted: Orders * Telephone Encounter - Emma Padron, snap she[facility] - 01/31/2024 3:15 PM EST Insurance calling to inform doctor that the patient's medication is on backorder and requesting an alternative. Did confirm this information with the pharmacy. Pt's current insurance information is as follows: Patient name: Mariia Liao ID number: [id number] BIN number: [id number] PCN number: [id number] Group number: [id number] Subscriber name: Mariia Liao Primary or Secondary Insurance:Primary Medication: Fiasp FlexTouch 100 UNIT/ML Subcutaneous Solution Pen-injector (Insulin Aspart (w/Niacinamide)) Reason for Request: On back order Pharmacy and phone number: [id number] Rx plan and phone number: NA What alternative medications does the pharmacy have in stock?: humalog, the 10 ml vials of fiasp are also on back order Thank you, Emma Padron CPhT Vehicle Detailer II [facility] 01/31/2024,3:15 PM documented in this encounter Plan of Treatment Upcoming Encounters Date Type Department Care Team (Late st Contact Info) Description 02/12/2024 11:00 AM EST Office Visit Pharmacy, [facility] [address] [facility] [place] [address] Pharmacist1, [facility] [address] [facility] [place] [address] 02/12/2024 11:30 AM EST Pharmacy Pharmacy, [facility] [address] [facility] [place] [address] Pharmacist1, [facility] [address] [facility] [place] [address] 03/05/2024 3:40 PM EST Office Visit Family [facility] [address] [place] [address] [address] Jonny Donaldson MD [address] [place] [address] 05/29/2024 11:00 AM EDT Appointment Vascular Lab [address] [address] 05/29/2024 11:30 AM EDT Appointment Vascular Lab [address] [address] 05/29/2024 12:00 PM EDT Office Visit Vascular Surg [address] [address] Willian Roass MD [address] [place] [address] 09/17/2024 10:00 AM EDT Imaging Radiology [address] [place] [address] Health Maintenance Due Date Last Done Comments [...] 10/05/2017, Additional history exists HbA1c 04/14/2024 10/13/2023, 050 09/2023, 04/05/2023, Additional history exists O2 ASSESSMENT COMPLETED IN PAST YEAR FOR COPD 06/08/2024 06/09/2023 GFR 08/03/2024 08/04/2023, 060 08/2023, 07/05/2023, Additional history exists Mammogram 09/12/2024 09/13/2023, 09/0 07/2021, 11/02/2021, Additional history exists Diabetic Eye Exam 01/23/2025 01/24/2024, , 10/12/2022, Additional history exists DTap/Tdap Vaccines (3 - Td or Tdap) 04/27/2028 04/27/2018, 08/28/2008, 11/22/1994 Hepatitis C Screening Completed 06/18/2002 Hepatitis B Vaccine Completed 08/27/2009, 03/30/2009, 02/27/2009 Zoster Vaccines Completed 08/21/2019, 04/27, 08/06/2015 Colonoscopy Discontinued 10/20/2021, 08/06/2015, 07/24/2012, Additional history exists Pneumococcal Vaccine: 65+ Years Completed 01/28/2022, 10/20/2020, 11/15/1994 Lung Cancer [...] this encounter Medical Devices Implanted Type Area Outreach Assistant Device Identifier Shelf Expiration Date Model / Serial / Lot Greater Than 80cm, 3mm-8mm Flora, Angiograft Pvd Saphenous Veins, Cryopreserved Implanted:Qty: 1 on 01/19/2023 by Willian Rosas MD at [facility] Right: Leg Upper LIFENET 07/29/2026 CV>80 / [id number] / [id number] documented as of this encounter Visit [...] Advance Directives occurred with: Patient Care Teams Commissioner Conservation Of Resources Relationship Specialty Start Date End Date Jonny Donaldson MD [address] [place] [address] PCP - General Family Medicine 05/27/14 documented as of this encounter
--- OUTSIDE RECORDS SUMMARY | 2024-04-26 14:45 | External Medical Summary ---
Author Name Unknown Address Unknown Organization K01:[place] [facility] [place] [address] [facility] [address] Laboratory Report Ordering Provider Test Date Status AARTI CHEN 02/08/2024 14:03:19 Final Observation Date Value Abnormality Reference (Units ) Status Color of Urine by Auto 02/08/2024 14:03:19 Light Yellow Colorless, Light Yellow, Yellow, Dark Yellow Final Clarity, Urine 02/08/2024 14:03:19 Slightly Cloudy Abnormal Clear Final Glucose [Mass/volume] in Urine by Automated test strip 02/08/2024 14:03:19 >=1000 Abnormal Negative (mg/dL) Final Bilirubin.total [Presence] in Urine by Automated test strip 02/08/2024 14:03:19 Negative Negative Final Ketones [Mass/volume] in Urine by Automated test strip 02/08/2024 14:03:19 Negative Negative (mg/dL) Final Specific gravity, Urine 02/08/2024 14:03:19 1.024 1.003-1.030 Final Hemoglobin [Presence] in Urine by Automated test strip 02/08/2024 14:03:19 Small Abnormal Negative Final pH, Urine 02/08/2024 14:03:19 6.0 5.0-7.5 (Units) Final Protein [Mass/volume] in Urine by Automated test strip 02/08/2024 14:03:19 30 Abnormal Negative (mg/dL) Final Urobilinogen [Mass/volume] in Urine by Automated test strip 02/08/2024 14:03:19 Normal Normal (mg/dL) Final Nitrite [Presence] in Urine by Automated test strip 02/08/2024 14:03:19 Negative Negative Final Leukocyte esterase [Presence] in Urine by Automated test strip 02/08/2024 14:03:19 Large Abnormal Negative Final RBC, Urine 02/08/2024 14:03:19 3-5 Abnormal 0-2 (/HPF) Final WBC, Urine 02/08/2024 14:03:19 50+ Abnormal 0-2 (/HPF) Final Bacteria [#/area] in Urine sediment by Microscopy high power field 02/08/2024 14:03:19 >200 Abnormal 0-25 (/HPF) Final Leukocyte clumps [#/area] in Urine sediment by Microscopy high power field 02/08/2024 14:03:19 Present Abnormal None (/HPF) Final Performing Location [facility] [place] [facility] [address] [facility] [address]
--- OUTSIDE RECORDS SUMMARY | 2024-04-26 14:45 | External Medical Summary ---
Author Name Unknown Address Unknown Organization K01:LABORATORY [facility] – [place], [place] - [address] [place] [id number] Laboratory Report Ordering Provider Test Date Status AARTI CHEN 02/08/2024 14:03:19 Final Observation Date Value Abnormality Reference (Units) Status Bacteria identified in Specimen by Culture 02/08/2024 14:03:19 No significant growth Final Test: Culture, Urine, Quanti tative
Specimen Source: Urine, Clean Catch
Specimen Type: Urine
Specimen Date: 02/08/2024 1403
Result Date: 02/09/2024 1617
Result Status: Final result
Resulting Lab: LABORATORY [facility] [place] [place]
[address]
[facility] [address]

CULTURE

No significant growth

null Performing Location LABORATORY [facility] [place] - [address] [facility] [address]
--- OUTSIDE RECORDS SUMMARY | 2024-04-26 14:45 | External Medical Summary | Summary of Care ---
Author Name Unknown Organization [facility] Address [address] [place] [address] Phone [phone] Care Team Providers Care Cottage Master Name Role Phone Jonny Donaldson MD Primary Care Provider + Encounter Details Date Type Department Care Team (Late st Contact Info) Description 02/20/2024 Orders Only PATIENT PORTAL DO NOT DELETE THIS DEPT USED BY [place], [place] [id number] Allergies Active Allergy Reactions Criticality Noted Date Comments Cephalexin 01/28/1996 rash Doxepin 02/01/2018 Dust 04/04/2001 Nickel Anaphylaxis High 04/04/2001 Paroxetine 04/28/2003 generic only, brand ok Penicillins 03/03/1995 Rash Sulfa Antibiotics 11/27/1994 Rash documented as of this encounter (statuses as of 02/20/2024) Medications ASPIRIN EC 81 MG PO TBECIndications: [...] as of this encounter (statuses as of 02/20/2024) Active Problems Problem Noted Date Diagnosed Date [...] the RCA 04/27/[address] Whyte [facility]. History of nonmelanoma skin cancer [...] disease) 06/27/2013 Overview (06/27/2013): 06/24/13 +CP-abnormal stress->cath @[facility]. 100% occlusion RCA with left- right [...] 11/23/2011 Overview (04/25/2012): 04/20/12 AV Ablation-Dr Jeffrey Capmos, [facility] Episode June 2011 around 03/12/12 [facility]-P175 SVT--sched for [place] EP study Routine general medical exam ination at a health care facility 11/11/2011 Overview (07/05/2023): Cards--Dr Jeffrey Campos [place]. 03/03/23 TTE [facility] normal EF, moderate LVH. Mild hypokinesis of apical septum. 01/18 Carotid US [place] stable 50-69 on left. 10/18 colonoscopy [facility] 3 3-[address] colon-polypoid mucosa mild hyperplastic changes. Rectal polyp= hyperplastic polyp. Dr Juan Mak [facility] (11/19 06/14 Cologuard WNL. Cardiology-Jeffrey Campos [place]. 12/17 Carotid 50-69% left ICA stenosis. Vielka [...] PFT evidence of COPD ) 05/10 TTE @[facility] Fwtcvcjvnx-uynz-fxsnhx EF, mild LVH, Gr1 Feldman Dys 07/09 colonoscopy [facility] [place]-3 & 6mm polyp--PAth--Tubular adenoma 07/09 [place] TSH & celiac testing WNL 04/11 ER [...] as of this encounter (statuses as of 02/20/2024) Resolved Problems Problem Noted Date Diagnosed Date [...] as of this encounter (statuses as of 02/20/2024) Immunizations Name Administration Dates Next Due COVID-19 mRNA, LNP-s, No Pre serve, 2-Dose Series ([employer]) 01/24/2021,01/04/2021,06/03/2020 Hepatitis B, 20+ yrs 08/27/2009,03/30/2009,02/27 Pneumococcal [...] 03/05/2024 3:40 PM EST Office Visit Family [facility] [address] [facility] [place] [address] Jonny Donaldson MD [address] [facility] [place] [address] 05/29/2024 11:00 AM EDT Appointment Vascular Lab [address] [address] 05/29/2024 11:30 AM EDT Appointment Vascular Lab [address] [address] 05/29/2024 12:00 PM EDT Office Visit Vascular Surg [place] [address] [place] [address] Willian Rosas MD [facility] [place] [address] 09/17/2024 10:00 AM EDT Imaging Radiology [address] [place] [address] Health Maintenance Due Date Last Done Comments [...] 0806/2015, 07/24/2012, Additional history exists Pneumococcal Vaccine: 65+ [...] this encounter Medical Devices Implanted Type Area Tool Sharpener Device Identifier Shelf Expiration Date Model / Serial / Lot Greater Than 80cm, 3mm-8mm Flora, Angiograft Pvd Saphenous Veins, Cryopreserved Implanted:Qty: 1 on 01/19/2023 by Willian Rosas MD at OR [facility] Right: Leg Upper LIFENET 07/29/2026 CV>80 / [id number] / [id number] documented as of this encounter Advance [...] Advance Directives occurred with: Patient Care Teams Cottage Master Relationship Specialty Start Date End Date Jonny Donaldson MD [address] [place] [address] PCP - General Family Medicine 05/27/14 documented as of this encounter
--- OUTSIDE RECORDS SUMMARY | 2024-04-26 14:45 | External Medical Summary | Summary of Care ---
Author Name Unknown Organization [facility] Address [address] [place] [address] Phone [phone] Care Team Providers Care Accounting Manager Controller Name Role Phone Jonny Donaldson MD Primary Care Provider + Reason for Visit * Reason Comments Outpatient Testing Encounter Details Date Type Department Care Team (Late st Contact Info) Description 02/08/2024 2:10 PM EST Laboratory Laboratory [address] [place] [phone] , Specimen Drop Off [address] [place] [address] Dysuria Allergies Active Allergy Reactions Criticality Noted Date Comments Cephalexin 01/28/1996 rash Doxepin 02/01/2018 Dust 04/04/2001 Nickel Anaphylaxis High 04/04/2001 Paroxetine 04/28/2003 generic only, brand ok Penicillins 03/03/1995 Rash Sulfa Antibiotics 11/27/1994 Rash documented as of this encounter (statuses as of 02/08/2024) Medications ASPIRIN EC 81 MG PO TBECIndications: [...] goal of less than 8.0% ([facility]) Inject 2 mg under the skin once a week. 9 mL 3 4 Active Insulin Glargine Solostar 100 UNIT/ML Subcutaneous Solution Pen-injector (Basaglgilbert Flanagan)Indicati ons:Type 2 diabetes mellitus with hemoglobin [...] Tablet 3 4 Active BD Pen Needle Tajna U/F 32G X 4 MM (Insulin Pen [...] (low sugar). 100 Each 2 4 Active ArtemioTouch Delores In Vitro Strip (Glucose Blood)Indication s:Type 2 [...] until available. 60 mL 1 4 Active Nitrofurantoin Monohyd Macro 100 MG Oral Capsule (Macrobid) Take 1 Capsule by mouth in the morning and 1 Capsule before bedtime. Do all this for 7 days. With food until gone. 14 Capsule 4 024 Active documented as of this encounter (statuses as of 02/08/2024) Active Problems Problem Noted Date Diagnosed Date [...] 04/27/[address] Whyte [facility] [place]. History of nonmelanoma skin cancer 05/25/2022 Overview [...] disease) 06/27/2013 Overview (06/27/2013): 06/24/13 +CP-abnormal stress->cath @[facility]. 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 [...] Medical Center Episode June 2011 around 03/12/12 [facility]-P175 SVT--sched for [facility] EP study Routine general medical exam ination at a health care facility 11/11/2011 Overview (07/05/2023): Cards--Dr Jeffrey Campos [facility]. 03/03/23 TTE [facility] normal EF, moderate LVH. Mild hypokinesis of apical septum. 01/18 Carotid US [facility] stable 50-69 on left. 10/18 colonoscopy [facility] 3 3-[address] colon-polypoid mucosa mild hyperplastic changes. Rectal polyp= hyperplastic polyp. Dr Juan Mak [facility] (11/19 06/14 Cologuard WNL. Cardiology-Jeffrey Campos [facility]. 12/17 Carotid 50-69% left ICA stenosis. Vielka [...] PFT evidence of COPD ) 05/10 TTE @[facility] Eipxvikrks-ewcd-iedade EF, mild LVH, Gr1 Feldman Dys 07/09 colonoscopy [facility]-3 & 6mm polyp--PAth--Tubular adenoma 07/09 [facility] TSH & celiac testing WNL 04/11 ER visit [facility] SVT--resolved with adenosine. 03/11 EKG-scanned QTc [...] as of this encounter (statuses as of 02/08/2024) Resolved Problems Problem Noted Date Diagnosed Date [...] as of this encounter (statuses as of 02/08/2024) Immunizations Name Administration Dates Next Due COVID-19 mRNA, LNP-s, No Pre serve, 2-Dose Series ([employer] 01/24/2021,01/04/2021,06/03/2020 Hepatitis B, 20+ yrs 08/27/2009,03/30/2009,02/27 [...] 02/12/2024 11:00 AM EST Office Visit Pharmacy, [facility] [address] [place] [address] Pharmacist1, [facility] [address] [facility] [place] [address] 02/12/2024 11:30 AM EST Pharmacy Pharmacy, [facility] [address] [place] [address] Pharmacist1, [facility] [address] [facility] [place] [address] 03/05/2024 3:40 PM EST Office Visit Family [facility] [address] [facility] [place] [address] Jonny Donaldson MD [address] [place] [address] 05/29/2024 11:00 AM EDT Appointment Vascular Lab [place] [address] [place] [address] 05/29/2024 11:30 AM EDT Appointment Vascular Lab [place] [address] [place] [address] 05/29/2024 12:00 PM EDT Office Visit Vascular Surg [place] [address] [place] [address] Willian Rosas MD [address] [place] [address] 09/17/2024 10:00 AM EDT Imaging Radiology [address] [place] [address] Pending Results Name Type Priority Associated Diagnoses Date /Time URINALYSIS, REFLEX TO MICROSCOPIC Lab Routine Dysuria 02/08/2024 2:03 PM EST CULTURE, URINE, QUANTITATIVE Lab Routine Dysuria 02/08/2024 2:03 PM EST Health Maintenance Due Date Last [...] 06/2015, 07/24/2012, Additional history exists Pneumococcal Vaccine: 65+ [...] this encounter Medical Devices Implanted Type Area Fence Post Cutter Device Identifier Shelf Expiration Date Model / Serial / Lot Greater Than 80cm, 3mm-8mm Flora, Angiograft Pvd Saphenous Veins, Cryopreserved Implanted:Qty: 1 on 01/19/2023 by Willian Rosas MD at [facility] Right: Leg Upper LIFENET 07/29/2026 CV>80 / [id number] / [id number] documented as of this encounter Visit Diagnoses Diagnosis Dysuria Screening mammogram for breast cancer documented [...] Advance Directives occurred with: Patient Care Teams Accounting Manager Controller Relationship Specialty Start Date End Date Jonny Donaldson MD [address] [place] [address] PCP - General Family Medicine 05/27/14 documented as of this encounter
--- OUTSIDE RECORDS SUMMARY | 2024-04-26 14:46 | External Medical Summary | Summary of Care ---
Author Name Unknown Organization [facility] Address [address] [place] [address] Phone [phone] Care Team Providers Care Family And Consumer Science Professor Name Role Phone Jonny Donaldson MD Primary Care Provider + Reason for Visit * Reason Onset Date Comments Medication Refill 01/31/2024 Encounter Details Date Type Department Care Team (Late st Contact Info) Description 01/31/2024 Telephone Family Practice [facility] [address] [place] [address] Jonny Donaldson MD [address] [place] [address] Medication Refill Allergies Active Allergy Reactions Criticality Noted Date Comments Cephalexin 01/28/1996 rash Doxepin 02/01/2018 Dust 04/04/2001 Nickel Anaphylaxis High 04/04/2001 Paroxetine 04/28/2003 generic only, brand ok Penicillins 03/03/1995 Rash Sulfa Antibiotics 11/27/1994 Rash documented as of this encounter (statuses as of 01/31/2024) Medications ASPIRIN EC 81 MG PO TBECIndications: [...] of less than 8.0% ([facility]) Inject 2 mg under the [...] (low sugar). 100 Each 2 4 Active ArtemioTohira Adrianjoselo In Vitro Strip (Glucose Blood)Indication s:Type 2 [...] in the morning. 90 Tablet 4 Active documented as of this encounter (statuses as of 01/31/2024) Active Problems Problem Noted Date Diagnosed Date [...] of the RCA 04/27/[address] Whyte [facility]. History of nonmelanoma skin cancer 05/25/2022 [...] Overview (06/27/2013): 06/24/13 +CP-abnormal stress->cath @[facility]. 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 [...] Overview (04/25/2012): 04/20/12 AV Ablation-Dr Jeffrey Campos, [facility] Episode June 2011 around 03/12/12 [facility]-P175 SVT--sched for [facility] EP study Routine general medical exam ination at a health care facility 11/11/2011 Overview (07/05/2023): Cards--Dr Jeffrey Campos [facility]. 03/03/23 TTE [facility] normal EF, moderate LVH. Mild hypokinesis of apical septum. 01/18 Carotid US [facility] stable 50-69 on left. 10/18 colonoscopy [facility] 3 3-[address] colon-polypoid mucosa mild hyperplastic changes. Rectal polyp= hyperplastic polyp. Dr Juan Mak [facility] (11/19 06/14 Cologuard WNL. Cardiology-Jeffrey Campos [facility]. 12/17 Carotid 50-69% left ICA stenosis. Vielka [...] PFT evidence of COPD ) 05/10 TTE @[facility] Srbbaijuci-vxov-htvjmw EF, mild LVH, Gr1 Feldman Dys 07/09 colonoscopy [facility]-3 & 6mm polyp--PAth--Tubular adenoma 07/09 [facility] TSH & celiac testing WNL 04/11 ER visit [facility] SVT--resolved with adenosine. 03/11 EKG-scanned QTc 414 [...] as of this encounter (statuses as of 01/31/2024) Resolved Problems Problem Noted Date Diagnosed Date [...] as of this encounter (statuses as of 01/31/2024) Immunizations Name Administration Dates Next Due COVID-19 mRNA, LNP-s, No Pre serve, 2-Dose Series ([employer]) 01/24/2021,01/04/2021,06/03/2020 Hepatitis B, 20+ yrs 08/27/2009,03/30/2009,02/27 [...] encounter Miscellaneous Notes * Telephone Encounter - Emma Padron PHARM Tech - 01/31/2024 3:15 PM EST Insurance calling to inform doctor that the patient's medication is on backorder and requesting an alternative. Did confirm this information with the pharmacy. Pt's current insurance information is as follows: Patient name: Mariia Liao ID number: [id number] BIN number: [id number] PCN number: [id number] Group number: [id number] Subscriber name: Mariia Liao Primary or Secondary Insurance:Primary Medication: Fiasp FlexTouch 100 UNIT/ML Subcutaneous Solution Pen-injector (Insulin Aspart (w/Niacinamide)) Reason for Request: On back order Pharmacy and phone number: [id number] plan and phone number: NA What alternative medications does the pharmacy have in stock?: humalog, the 10 ml vials of fiasp are also on back order Thank you, Emma Padron CPhT Change Attendant II [facility] 01/31/2024,3:15 PM documented in this encounter Plan of Treatment Upcoming Encounters Date Type Department Care Team (Late st Contact Info) Description 02/12/2024 11:00 AM EST Office Visit Pharmacy, [facility] [address] [place] [address] Pharmacist1, [facility] [address] [facility] [place] [address] 02/12/2024 11:30 AM EST Pharmacy Pharmacy, [facility] [address] [place] [address] Pharmacist1, [facility] [address] [facility] [place] [address] 03/05/2024 3:40 PM EST Office Visit Family [facility] [address] [facility] [place] [address] Jonny Donaldson MD [address] [facility] [place] [address] 05/29/2024 11:00 AM EDT Appointment Vascular Lab [address] [address] 05/29/2024 11:30 AM EDT Appointment Vascular Lab [place] [address] [place] [address] 05/29/2024 12:00 PM EDT Office Visit Vascular Surg [facility] [address] [place] [address] Willian Rosas MD [address] [place] [address] 09/17/2024 10:00 AM EDT Imaging Radiology [address] [place] [address] Health Maintenance Due Date Last Done Comments [...] this encounter Medical Devices Implanted Type Area Energy Conservation Technician Device Identifier Shelf Expiration Date Model / Serial / Lot Greater Than 80cm, 3mm-8mm Flora, Angiograft Pvd Saphenous Veins, Cryopreserved Implanted:Qty: 1 on 01/19/2023 by Willian Rosas MD at [place] [facility] Right: Leg Upper LIFENET 07/29/2026 CV>80 / [id number] / [id number] documented as of this encounter Advance [...] Advance Directives occurred with: Patient Care Teams Family And Consumer Science Professor Relationship Specialty Start Date End Date Jonny Donaldson MD [address] [place] [address] PCP - General Family Medicine 05/27/14 documented as of this encounter
--- OUTSIDE RECORDS SUMMARY | 2024-04-26 14:46 | External Medical Summary | Summary of Care ---
Author Name Unknown Organization [facility] Address [address] [place] [address] Phone [phone] Care Team Providers Care Extension Course Counselor Name Role Phone Jonny Donaldson MD Primary Care Provider + Encounter Details Date Type Department Care Team (Late st Contact Info) Description 01/29/2024 Orders Only Family Practice [facility] [address] [facility] [place] [address] Jonny Donaldson MD [address] [facility] [place] [address] Allergies Active Allergy Reactions Criticality Noted Date Comments Cephalexin 01/28/1996 rash Doxepin 02/01/2018 Dust 04/04/2001 Nickel Anaphylaxis High 04/04/2001 Paroxetine 04/28/2003 generic only, brand ok Penicillins 03/03/1995 Rash Sulfa Antibiotics 11/27/1994 Rash documented as of this encounter (statuses as of 01/29/2024) Medications ASPIRIN EC 81 MG PO TBECIndications: [...] Oral Capsule Take by mouth. Ac tive Empagliflozin 10 MG Oral Tablet (Jardiance)Indic ations:Type 2 diabetes mellitus with hemoglobin A1c goal of less than 8.0% (HCC) Take 1 Tablet by mouth in the morning. In the morning.. 90 Tablet 3 4 Active Amitriptyline HCl 50 MG Oral Tablet [...] rash improved. 30 g 1 4 Active documented as of this encounter (statuses as of 01/29/2024) Active Problems Problem Noted Date Diagnosed Date [...] of the RCA 04/27/[address] Whyte [facility]. History of nonmelanoma skin cancer [...] disease) 06/27/2013 Overview (06/27/2013): 06/24/13 +CP-abnormal stress->cath @[facility]. 100% occlusion RCA with left- [...] (04/25/2012): 04/20/12 AV Ablation-Dr Jeffrey Campos, [facility] Episode June 2011 around 03/12/12 [facility]-P175 SVT--sched for [facility] EP study Routine general medical exam ination at a health care facility 11/11/2011 Overview (07/05/2023): Cards--Dr Jeffrey [facility]. 03/03/23 TTE [facility] normal EF, moderate LVH. Mild hypokinesis of apical septum. 01/18 Carotid US [facility] stable 50-69 on left. 10/18 colonoscopy [facility] 3 3-[address] colon-polypoid mucosa mild hyperplastic changes. Rectal polyp= hyperplastic polyp. Dr Juan Mak [facility] (11/19 06/14 Cologuard WNL. Cardiology-Jeffrey Jalloh. [...] PFT evidence of COPD ) 05/10 TTE @[facility] Jktfbjjflh-eugz-opgapr EF, mild LVH, Gr1 Feldman Dys 07/09 colonoscopy [facility]oscopy [facility]-3 & 6mm polyp--PAth--Tubular adenoma 07/09 [facility] TSH & celiac testing WNL 04/11 ER visit [facility] SVT--resolved with adenosine. 03/11 EKG-scanned [...] as of this encounter (statuses as of 01/29/2024) Resolved Problems Problem Noted Date Diagnosed Date [...] as of this encounter (statuses as of 01/29/2024) Immunizations Name Administration Dates Next Due COVID-19 mRNA, LNP-s, No Pre serve, 2-Dose Series ([employer]) 01/24/2021,01/04/2021,06/03/2020 Hepatitis B, 20+ yrs 08/27/2009,03/30/2009,02/27 Pneumococcal [...] 02/12/2024 11:00 AM EST Office Visit Pharmacy, [facility] [address] [facility] [address] Pharmacist1, [facility] [address] [place] [address] 02/12/2024 11:30 AM EST Pharmacy Pharmacy, [facility] [address] [facility] [place] [address] Pharmacist1, [facility] [address] [place] [address] 03/05/2024 3:40 PM EST Office Visit Family Practice [facility] [address] [place] [address] Jonny Donaldson MD [address] [place] [address] 05/29/2024 11:00 AM EDT Appointment Vascular Lab [facility], [address] [address] 05/29/2024 11:30 AM EDT Appointment Vascular Lab [facility], [address] [address] 05/29/2024 12:00 PM EDT Office Visit Vascular Surg [facility], [address] [address] Willian Rosas MD [address] [facility] [place] [address] 09/17/2024 10:00 AM EDT Imaging Radiology [address] [place] [address] Health Maintenance Due Date Last Done Comments [...] 11/02/2021, Additional history exists Diabetic Eye Exam 01/28/2025 01/24/2024, , 10/12/2022, Additional history exists DTap/Tdap [...] this encounter Medical Devices Implanted Type Area Professor Of Exercise Science Device Identifier Shelf Expiration Date Model / Serial / Lot Greater Than 80cm, 3mm-8mm Flora, Angiograft Pvd Saphenous Veins, Cryopreserved Implanted:Qty: 1 on 01/19/2023 by Willian Rosas MD at OR [facility] Right: Leg Upper LIFENET 07/29/2026 CV>80 / [id number] / [id number] documented as of this encounter Procedures Procedure Name Priority Date/Time Associated Diagnosis Comments DIABETIC EYE EXAM Routine 01/24/2024 documented in this encounter Results * DIABETIC EYE EXAM (01/24/2024) 01/24/2024 us History Per Patient OTHER Final Result OUTSIDE LAB (SEE SCANNED REPORT) documented in this encounter Advance Directives * [...] Advance Directives occurred with: Patient Care Teams Extension Course Counselor Relationship Specialty Start Date End Date Jonny Donaldson MD [address] [place] [address] PCP - General Family Medicine 05/27/14 documented as of this encounter
--- OUTSIDE RECORDS SUMMARY | 2024-04-26 14:46 | External Medical Summary | Summary of Care ---
Author Name Unknown Organization [facility] Address [address] [place] [address] Phone [phone] Care Team Providers Care Quality Assurance Associate Name Role Phone Jonny Broussard MD Primary Care Provider + Reason for Visit * Reason Comments eRx-Medication Refill Encounter Details Date Type Department Care Team (Late st Contact Info) Description 01/29/2024 Refill Family Practice [facility] [address] [place] [address] Jonny Broussard MD [address] [facility] [place] [id number] Type 2 diabetes mellitus with hemoglobin A1c goal of less than 8.0% ([facility]) Allergies Active Allergy Reactions Criticality Noted Date Comments Cephalexin 01/28/1996 rash Doxepin 02/01/2018 Dust 04/04/2001 Nickel Anaphylaxis High 04/04/2001 Paroxetine 04/28/2003 generic only, brand ok Penicillins 03/03/1995 Rash Sulfa Antibiotics 11/27/1994 Rash documented as of this encounter (statuses as of 01/31/2024) Medications ASPIRIN EC 81 MG PO TBECIndications :Type II or unspecified type diabetes mellitus with renal manifestations, uncontrolled(25 0.42) ([facility]) Take one pill daily 100 Tab [...] of less than 8.0% ([facility]) Inject 2 mg under the skin once a week. 9 mL 3 08/02/19 24 Active Insulin Glargine Solostar 100 UNIT/ML Subcutaneous Solution Pen-injector (Raghav Flanagan)Indicat ions:Type 2 diabetes mellitus with hemoglobin A1c goal of less than 8.0% (HCC) Inject 35 Units under the skin in the morning and 35 Units before bedtime. 75 mL 3 08/11/19 24 Active LORazepam 0.5 MG Oral Tablet (Ativan)Indicat [...] 11/27/2023 traMADol HCl 50 MG Oral Tablet (Ultram)Indicat [...] morning. 90 Tablet 3 10/25/19 24 Active BD Pen Needle Tanja U/F 32G X 4 MM (Insulin Pen Needle)Indicati ons:Type 2 diabetes mellitus with hemoglobin A1c goal of less than 8.0% (HCC) USE TO INJECT INSULIN 2-3 times per day 200 Each 3 12/18/19 24 Active OneTouch Verio w/Device KitIndications: Type [...] (Lipitor)Indica tions:Dyslipide galo, goal LDL below 100 TAKE ONE TABLET BY MOUTH EVERY DAY 90 Tablet 12/26/19 24 Active metFORMIN HCl 850 MG Oral Tablet (Glucophage)Ind ications:Type 2 diabetes mellitus with hemoglobin A1c goal of less than 8.0% (HCC) TAKE ONE TABLET BY MOUTH THREE TIMES DAILY WITH MEALS diabetes 270 Tablet 12/26/19 24 Active Gabapentin 600 MG Oral Tablet (Neurontin)Mirtha cations:Leg cramping,Restle ss legs syndrome TAKE 1 TABLET IN THE [...] the morning. 90 Tablet 01/31/20 24 Active Empagliflozin 10 MG Oral Tablet (Jardiance)Mirtha cations:Type 2 diabetes mellitus with hemoglobin A1c goal of less than 8.0% (HCC) Take 1 Tablet by mouth in the morning. In the morning.. 90 Tablet 3 05/08/19 24 2023 Discontinued documented as of this encounter (statuses [...] of the RCA 04/27/[address] Whyte [facility] [place]. History of nonmelanoma skin cancer 05/25/2022 Overview [...] Overview (06/27/2013): 06/24/13 +CP-abnormal stress->cath @[facility]. [...] 04/20/12 AV Ablation-Dr Jeffrey Campos, [facility] Episode June 2011 around 03/12/12 [facility]-P175 SVT--sched for [facility] EP study Routine general medical exam ination at a health care facility 11/11/2011 Overview (07/05/2023): Cards--Dr Jeffrey Jalloh. 03/03/23 TTE [facility] normal EF, moderate LVH. Mild hypokinesis of apical septum. 01/18 Carotid US [facility] stable 50-69 on left. 10/18 colonoscopy [facility] 3 3-5 poly[address] colon-polypoid mucosa mild hyperplastic changes. Rectal polyp= hyperplastic polyp. Dr Juan Mak [facility] (11/19 06/14 Cologuard WNL. Cardiology-Jeffrey Jalloh. [...] PFT evidence of COPD ) 05/10 TTE @[facility] Hxilyutvfz-kfdi-izmmdg EF, mild LVH, Gr1 Feldman Dys 07/09 colonoscopy [facility] Endoscopy [facility]-3 & 6mm polyp--PAth--Tubular adenoma 07/09 [facility] TSH & celiac testing WNL 04/11 ER visit [facility] SVT--resolved with adenosine. 03/11 EKG-scanned QTc [...] mRNA, LNP-s, No Pre serve, 2-Dose Series ([facility]) 01/24/2021,01/04/2021,06/03/2020 Hepatitis B, 20+ yrs 08/27/2009,03/30/2009,02/27 Pneumococcal [...] encounter Miscellaneous Notes * Telephone Encounter - Emmanuelle Moncada [facility] - 01/31/2024 1:40 PM ESTSigned Prescriptions: Disp Refills Empagliflozin 10 MG Oral Tablet (Jardiance)90 Tab*0 Sig: Take 1Tablet by mouth in the morning.Authorizing Provider: JONNY BROUSSARD User: EMMANUELLE MONCADARefused Prescriptions: Disp Refills Basaglar KwikPen 100 UNIT/ML Subcutaneous *60 mL 3 Sig: INJECT 30 UNITS SUBCUTANEOUSLY IN THE MORNING AND 30 UNITS BEFOREBEDTIMERefused By: EMMANUELLE MONCADA for Refusal: Too soonReason for Refusal Comment: 75/3 sent 08/10 Electronically signed by Emmanuelle Moncada [facility] at 01/31/2024 1:40 PM EST * Telephone Encounter - Emmanuelle Moncada, [facility] - 01/31/2024 1:37 PM EST Jardiance, remaining refills re-routed as requested Thank you, Emmanuelle Moncada, PharmD Clinical Pharmacist [facility]) 01/31/24 1:39 PM [phone] Electronically signed by Emmanuelle Moncada [facility] at 01/31/2024 1:40 PM EST documented in this encounter Plan of Treatment Upcoming Encounters Date Type Department Care Team (Late st Contact Info) Description 02/12/2024 11:00 AM EST Office Visit Pharmacy, [facility] [address] [place] [address] Pharmacist1, [facility] [address] [facility] [address] 02/12/2024 11:30 AM EST Pharmacy Pharmacy, [facility] [address] [place] [address] Pharmacist1, [facility] Sp [address] [facility] [address] 03/05/2024 3:40 PM EST Office Visit Family Practice [facility] [address] [facility] [place] [address] Jonny Broussard MD [address] [employer] [place] [address] 05/29/2024 11:00 AM EDT Appointment Vascular Lab [address] [address] 05/29/2024 11:30 AM EDT Appointment Vascular Lab [address] [address] 05/29/2024 12:00 PM EDT Office Visit Vascular Surg [address] [address] Willian Rosas MD [address] [place] [address] 09/17/2024 10:00 AM EDT Imaging Radiology [address] [place], [place] [address] Health Maintenance Due Date Last Done Comments [...] this encounter Medical Devices Implanted Type Area Shredded Filler Hopper Feeder Device Identifier Shelf Expiration Date Model / Serial / Lot Greater Than 80cm, 3mm-8mm Flora, Angiograft Pvd Saphenous Veins, Cryopreserved Implanted:Qty: 1 on 01/19/2023 by Willian Rosas MD at [facility] Right: Leg Upper LIFENET 07/29/2026 CV>80 / [id number] / [id number] documented as of this encounter Visit Diagnoses Diagnosis Type 2 diabetes mellitus with hemoglobin A1c goal of less than 8.0% ([facility]) Screening mammogram for breast cancer documented in [...] Advance Directives occurred with: Patient Care Teams Quality Assurance Associate Relationship Specialty Start Date End Date Jonny Broussard MD [address] [place] [address] PCP - General Family Medicine 05/27/14 documented as of this encounter
--- OUTSIDE RECORDS SUMMARY | 2024-04-26 14:46 | External Medical Summary | Summary of Care ---
Author Name Unknown Organization [facility] Address [address] [place] [address] Phone [phone] Care Team Providers Care Managing Editor Name Role Phone Jonny Donaldson MD Primary Care Provider + Reason for Visit * Reason Onset Date Comments Medication Refill 01/31/2024 Encounter Details Date Type Department Care Team (Late st Contact Info) Description 01/31/2024 Telephone Family Practice [facility] [address] [place] [address] Jonny Donaldson MD [address] [place] [address] Medication Refill Allergies Active Allergy Reactions Criticality [...] goal of less than 8.0% ([facility]) Inject 2 mg under the skin once [...] of the RCA 04/27/[address] Whyte [facility]. History of nonmelanoma skin cancer 05/25/2022 [...] disease) 06/27/2013 Overview (06/27/2013): 06/24/13 +CP-abnormal stress->cath @[facility]. 100% occlusion RCA with [...] (04/25/2012): 04/20/12 AV Ablation-Dr Jeffrey Campos, [facility] Episode June 2011 around 03/12/12 [facility]-P175 SVT--sched for [facility] EP study Routine general medical exam ination at a health care facility 11/11/2011 Overview (07/05/2023): Cards--Dr Jeffrey Campos [facility]. 03/03/23 TTE [facility] normal EF, moderate LVH. Mild hypokinesis of apical septum. 01/18 Carotid US [facility] stable 50-69 on left. 10/18 colonoscopy [facility] 3 3-5 polyps [address] colon-polypoid mucosa mild hyperplastic changes. Rectal polyp= hyperplastic polyp. Dr Juan Mak [facility] (11/19 06/14 Cologuard WNL. Cardiology-Jeffrey Campos [facility]. 12/17 Carotid 50-69% left ICA stenosis. Vielka [...] PFT evidence of COPD ) 05/10 TTE @[facility] Kwjbjznjnq-ldyf-nwzvmi EF, mild LVH, Gr1 Feldman Dys 07/09 colonoscopy [facility] Endoscopy [facility]-3 & 6mm polyp--PAth--Tubular adenoma 07/09 [facility] TSH & celiac testing WNL 04/11 ER [...] mRNA, LNP-s, No Pre serve, 2-Dose Series ([facility]) 01/24/2021,01/04/2021,06/03/2020 Hepatitis B, 20+ yrs 08/27/2009,03/30/2009,02/27 Pneumococcal [...] of Assessment Author Yes 01/19/2023 12:56 AM Micehla Robertson RN documented as of this encounter [...] follows: Patient name: Mariia Liao ID number: [id number] BIN number: [id number] PCN number: [id number] Group number: [id number] Subscriber name: Mariia Liao Primary or Secondary Insurance:Primary Medication: Fiasp FlexTouch 100 UNIT/ML Subcutaneous Solution Pen-injector (Insulin Aspart (w/Niacinamide)) Reason for Request: On back order Pharmacy and phone number: [id number] Rx plan and phone number: NA What alternative medications does the pharmacy have in stock?: humalog, the 10 ml vials of fiasp are also on back order Thank you, Emma Padron CPhT Emergency Detail Driver II [facility] ([facility]) 01/31/2024,3:15 PM documented in this encounter Plan of Treatment Upcoming Encounters Date Type Department Care Team (Late st Contact Info) Description 02/12/2024 11:00 AM EST Office Visit Pharmacy, [facility] [address] [place] [address] Pharmacist1, [facility] [address] [facility] [place] [address] 02/12/2024 11:30 AM EST Pharmacy Pharmacy, [facility] [address] [place] [address] Pharmacist1, [facility] [address] [facility] [place] [address] 03/05/2024 3:40 PM EST Office Visit Family [facility] [address] [facility] [place] [address] Jonny Donaldson MD [address] [facility] [place] [address] 05/29/2024 11:00 AM EDT Appointment Vascular Lab [address] [address] 05/29/2024 11:30 AM EDT Appointment Vascular Lab [place] [address] [place] [address] 05/29/2024 12:00 PM EDT Office Visit Vascular Surg [facility] [address] [place] [address] Willian Rosas MD [address] [place] [address] 09/17/2024 10:00 AM EDT Imaging Radiology [address] [place] [address] Health Maintenance Due Date Last Done Comments [...] this encounter Medical Devices Implanted Type Area Office Rn Device Identifier Shelf Expiration Date Model / Serial / Lot Greater Than 80cm, 3mm-8mm Flora, Angiograft Pvd Saphenous Veins, Cryopreserved Implanted:Qty: 1 on 01/19/2023 by Willian Rosas MD at [facility] Right: Leg Upper LIFENET 07/29/2026 CV>80 / [id number] / [id number] documented as of this encounter Advance [...] Advance Directives occurred with: Patient Care Teams Managing Editor Relationship Specialty Start Date End Date Jonny Donaldson MD [address] [place] [address] PCP - General Family Medicine 05/27/14 documented as of this encounter
--- OUTSIDE RECORDS SUMMARY | 2024-04-26 14:47 | External Medical Summary | Summary of Care ---
Author Name Unknown Organization [facility] Address [address] [place] [address] Phone [phone] Care Team Providers Care Lifestyle Director Name Role Phone Jonny Donaldson MD Primary Care Provider + Reason for Visit * Reason Comments Procedure Encounter Details Date Type Department Care Team (Late st Contact Info) Description 01/15/2024 1:30 PM EST Office Visit Oral Maxillofacial Surgery, [place] [address] [place], [place] [id number] Jay Lozano DDS, MD [address] [place] [address] Oral lesion* Allergies Active Allergy Reactions Criticality Noted Date Comments Cephalexin 01/28/1996 rash Doxepin 02/01/2018 Dust 04/04/2001 Nickel Anaphylaxis High 04/04/2001 Paroxetine 04/28/2003 generic only, brand ok Penicillins 03/03/1995 Rash Sulfa Antibiotics 11/27/1994 Rash documented as of this encounter (statuses as of 01/18/2024) Medications ASPIRIN EC 81 MG PO TBECIndications: [...] hemoglobin A1c goal of less than 8.0% ([facility]) TAKE ONE TABLET BY MOUTH THREE TIMES [...] as of this encounter (statuses as of 01/18/2024) Active Problems Problem Noted Date Diagnosed Date [...] disease) 06/27/2013 Overview (06/27/2013): 06/24/13 +CP-abnormal stress->cath @[facility]. 100% occlusion [...] Medical Center Episode June 2011 around 03/12/12 [facility]-P175 SVT--sched for [facility] EP study Routine general medical exam ination at a health care facility 11/11/2011 Overview (07/05/2023): Cards--Dr Jeffrey Campos [facility]. 03/03/23 TTE [facility] normal EF, moderate LVH. Mild hypokinesis of apical septum. 01/18 Carotid US [facility] stable 50-69 on left. 10/18 colonoscopy [facility] 3 3-[address] colon-polypoid mucosa mild hyperplastic changes. Rectal polyp= hyperplastic polyp. Dr Juan Mak [facility] (11/19 06/14 Cologuard WNL. Cardiology-Jeffrey Campos [facility]. 12/17 Carotid 50-69% left ICA stenosis. Vielka [...] PFT evidence of COPD ) 05/10 TTE @[facility] Ooletqveia-tjty-wsfpxh EF, mild LVH, Gr1 Feldman Dys 07/09 colonoscopy [facility] Endoscopy [facility]-3 & 6mm polyp--PAth--Tubular adenoma 07/09 [facility] TSH & celiac testing WNL 04/11 ER visit [facility] SVT--resolved with adenosine. 03/11 EKG-scanned QTc [...] as of this encounter (statuses as of 01/18/2024) Resolved Problems Problem Noted Date Diagnosed Date [...] as of this encounter (statuses as of 01/18/2024) Immunizations Name Administration Dates Next Due COVID-19 mRNA, LNP-s, No Pre serve, 2-Dose Series ([employer]) 01/24/2021,01/04/2021,06/03/2020 Hepatitis B, 20+ yrs 08/27/2009,03/30/2009,02/27 Pneumococcal [...] Sign Reading Time Taken Comments Blood Pressure 86/65 01/15/2024 1:36 PM EST Pulse 95 01/15/2024 1:36 PM EST Temperature 36.1 C (97 F) 01/15/2024 1:36 PM EST Respiratory Rate - - Oxygen Saturation 95% 01/15/2024 1:36 PM EST Inhaled Oxygen Concentration - - Weight - [...] documented in this encounter Progress Notes * Jay Lozano DDS, MD - 01/18/2024 8:56 AM EST I have discussed the patient's management with the medical trainee and agree with the note. Please refer to the documented findings and plan of care. This patient's visit today consisted of a procedure. I was present for the amaro and critical portions of the procedure. Jay Lozano DDS, MD Giorgio Landrum DDS - 01/15/2024 1:45 PM EST Outpatient Visit Department of Oral & Maxillofacial Surgery [address] [address] Name: Mariia Liao : 1955 Date: 01/15/2024 Operative Note Pre-op Diagnosis: ICD-10-CM 1. Oral lesion K13.70 Post-op Diagnosis: Same Operation: Biopsy of right soft palate Attending Surgeon: Jay Lozano MD, DDS Residents: None available Anesthesia: Local anesthesia only Drains: none Estimated Blood Loss: 2 ml. IV Fluids: none administered Apparent Intraoperative Complications: none Specimens: none Patient Condition: good Disposition: home under self care Indications and History: Mariia Liao is a 68 year old female who presents with: ICD-10-CM 1. Oral lesion K13.70 All pertinent medical history and medications were reviewed, as documented in the H&P, and confirmed or updated. Permit: Yes Description of Operation: The patient was accurately identified and brought to the procedure room, and the provider initiateda timeout with the team and identified patient by full name and date of as Mariia Liao,1955. The correct operative sites have been identified and marked accordingly and verified by the surgical team. All treatment options, risks, and benefits were discussed with the patient, which included, but were not limited to: Pain, swelling, bleeding, infection, bruising, delayed healing, scarring, damage to other teeth and/or roots that may result in the need for tooth repair or loss, loose tooth/teeth, damage to dental appliances, cracking and/or stretching of the corners of the mouth, cuts inside themouth or on the lips, jaw fracture, stress or damage to the jaw joints (TMJ), difficulty in openingthe mouth or chewing, allergic and/or adverse reaction to medications and/or materials; Nerve injury, which may occur from the surgical procedure and/or the delivery of local anesthesia, resulting inaltered or loss of sensation, numbness, pain, or altered feeling in the face, cheek(s), lips, chin,teeth, gums, and/or tongue (including loss of taste). Such conditions may resolve over time, but insome cases may be permanent; Dry socket (slow healing) resulting in jaw pain that increases a few days after surgery; Sharp ridges or bone splinters may form where the tooth was removed possibly requiring additional surgery; Part of the tooth and/or roots may be left to prevent damage to nerves or other structures; An opening may occur from the mouth into the nasal or sinus cavities; Injury to nearby blood vessels, salivary glands or ducts; Jaw fracture; I understand that bone grafting may be necessary. Allergic or adverse reactions to medications or materials; Pain, swelling, redness, irritation, numbness and/or bruising in the area where the IV needle is placed. Usually the numbness or pain goes away, but in some cases, it may be permanent. The Patient verbalized understanding and agrees with treatment plan. An opportunity for questions was given. All questions were answered to satisfaction. The consent was then signed, as witnessed by the operative team. Appropriate eye protection placed. 3.6 mL 2% lidocaine 1:100k epi administered locally Using a 5mm punch, a circular incision was made around the right soft palate. Using a #15 blade thelesion was removed. Silver nitrate applied. Hemostasis achieved, moist gauze placed. Throughout the procedure described above, throat shield (4 x 4 gauze) and mouth prop were utilized.Both were removed following the procedure. Eye protection removed following all portions of the procedure. Post-operative Plan Tylenol and Ibuprofen Reassurance provided. Discussed post-operative instructions. Questions invited and answered. The patient and escort demonstrated understanding and agreed. Diet: Soft Mechanical Activity: No strenuous activity and No heavy lifting Will contact patient with biopsy result when pathology results Note by: Giorgio Peters DDS documented in this encounter Nursing Notes * Mariam Rivera DA - 01/15/2024 1:35 PM EST Reviewed medical history with patient. No changes noted. Asked patient status before taking x-ray No, patient is not . RETURN EDUCATION SCREENING Today's Date: 01/15/2024 Understands Current Diagnosis: Yes Understands Current Treatment: Yes Recheck Education Screening for Patient Barrier to Learning: Unchanged Learning Need: POI Person Taught: Patient Method: Lecture Outcome: State/Describe/Explain Comments: none TIME OUT. Patient was identified by two methods. Procedure was identified, verified and reviewed with patient. documented in this encounter Plan of Treatment Upcoming Encounters Date Type Department Care Team (Late st Contact Info) Description 02/12/2024 11:00 AM EST Office Visit Pharmacy, [facility] [address] [place] [address] Pharmacist1, [facility] [address] [facility] [place] [address] 02/12/2024 11:30 AM EST Pharmacy Pharmacy, [facility] 200 [facility] [place] [address] Pharmacist1, [facility] [address] [facility] [place] [address] 03/05/2024 3:40 PM EST Office Visit [facility] [place] [address] Jonny Donaldson MD [facility] [place] [address] 05/29/2024 11:00 AM EDT Appointment Vascular Lab [place] [address] [place] [address] 05/29/2024 11:30 AM EDT Appointment Vascular Lab [facility] [address] [place] [address] 05/29/2024 12:00 PM EDT Office Visit Vascular Surg [facility] [address] [place] [address] Willian Rosas MD [address] [place] [address] 09/17/2024 10:00 AM EDT Imaging Radiology [address] [place] [address] Pending Results Name Type Priority Associated Diagnoses Date /Time SURGICAL PATHOLOGY Pathology Routine Oral lesion 01/15/2024 2:33 PM EST Health Maintenance Due Date Last [...] 10/13/2023, 05/0 09/2023, 04/05/2023, Additional history exists Diabetic Eye Exam 05/09/2024 05/10/2023, , 11/11/2021, Additional history exists O2 ASSESSMENT COMPLETED IN PAST YEAR FOR COPD 06/08/2024 06/09/2023 GFR 08/03/2024 08/04/2023, 06/0 08/2023, 07/05/2023, Additional history exists Mammogram 09/12/2024 09/13/2023, 09/0 07/2021, 11/02/2021, Additional history exists DTap/Tdap Vaccines (3 - [...] this encounter Medical Devices Implanted Type Area Scrap Dealer Device Identifier Shelf Expiration Date Model / Serial / Lot Greater Than 80cm, 3mm-8mm Flora, Angiograft Pvd Saphenous Veins, Cryopreserved Implanted:Qty: 1 on 01/19/2023 by Willian Rosas MD at [facility] Right: Leg Upper LIFENET 07/29/2026 CV>80 / [id number] / [id number] documented as of this encounter Visit Diagnoses Diagnosis Oral lesion- Primary Other and unspecified diseases of the oral soft tissues Screening mammogram for breast cancer documented in [...] Advance Directives occurred with: Patient Care Teams Lifestyle Director Relationship Specialty Start Date End Date Jonny Donaldson MD [address] [place] [address] PCP - General Family Medicine 05/27/14 documented as of this encounter
--- OUTSIDE RECORDS SUMMARY | 2024-04-26 14:47 | External Medical Summary | Summary of Care ---
Author Name Unknown Organization [facility] Address [address] [place] [address] Phone [phone] Care Team Providers Care Firmware Developer Name Role Phone Jonny Donaldson MD Primary Care Provider + Reason for Visit * Reason Comments Procedure Encounter Details Date Type Department Care Team (Late st Contact Info) Description 01/15/2024 1:30 PM EST Office Visit Oral Maxillofacial Surgery, [place] [address], [place] [id number] Jay Lozano DDS, MD [address] [place] [address] Oral lesion* Allergies Active Allergy Reactions Criticality Noted Date Comments Cephalexin 01/28/1996 rash Doxepin 02/01/2018 Dust 04/04/2001 Nickel Anaphylaxis High 04/04/2001 Paroxetine 04/28/2003 generic only, brand ok Penicillins 03/03/1995 Rash Sulfa Antibiotics 11/27/1994 Rash documented as of this encounter (statuses as of 01/17/2024) Medications ASPIRIN EC 81 MG PO TBECIndications: [...] hemoglobin A1c goal of less than 8.0% ([facility]) TAKE ONE TABLET BY MOUTH THREE TIMES [...] as of this encounter (statuses as of 01/17/2024) Active Problems Problem Noted Date Diagnosed Date [...] (04/25/2012): 04/20/12 AV Ablation-Dr Jeffrey Campos, [facility] Episode June 2011 around 03/12/12 [place] [facility]-P175 SVT--sched for [place] EP study Routine general medical exam ination at a health care facility 11/11/2011 Overview (07/05/2023): Cards--Dr Jeffrey Campos [place]. 03/03/[address] [facility] normal EF, moderate LVH. Mild hypokinesis of apical septum. 01/18 Carotid US [place] stable 50-69 on left. 10/18 colonoscopy [facility] 3 3-5 polyps PATH colon-polypoid mucosa mild hyperplastic changes. Rectal polyp= hyperplastic polyp. Dr Juan Mak [facility] (11/19 06/14 Cologuard WNL. Cardiology-Jeffrey Campos [place]. 12/17 Carotid 50-69% left ICA stenosis. Vielka [...] PFT evidence of COPD ) 05/10 TTE @[place] Frwaibtgey-lanh-zavknj EF, mild LVH, Gr1 Feldman Dys 07/09 colonoscopy [facility] Endoscopy [place]-3 & 6mm polyp--PAth--Tubular adenoma 07/09 [place] TSH & celiac testing WNL 04/[address] [facility] SVT--resolved with adenosine. 03/11 EKG-scanned QTc [...] as of this encounter (statuses as of 01/17/2024) Resolved Problems Problem Noted Date Diagnosed Date [...] as of this encounter (statuses as of 01/17/2024) Immunizations Name Administration Dates Next Due COVID-19 mRNA, LNP-s, No Pre serve, 2-Dose Series ([employer]) 01/24/2021,01/04/2021,06/03/2020 Hepatitis B, 20+ yrs 08/27/2009,03/30/2009,02/27 Pneumococcal [...] documented in this encounter Progress Notes * Giorgio Peters DDS - 01/15/2024 1:45 PM EST Outpatient Visit Department of Oral & [place]ill[place] [address] Name: Mariia Liao : 1955 Date: 01/15/2024 [...] 02/12/2024 11:00 AM EST Office Visit Pharmacy, [facility] [address] [place] [address] Pharmacist1, [facility] [address] [place] [place] [address] 02/12/2024 11:30 AM EST Pharmacy Pharmacy, [facility] [place] [address] [place] [address] [address] Pharmacist1, [facility] [address] [place] [address] 03/05/2024 3:40 PM EST Office Visit [facility] [address] [place] [address] Jonny Donaldson MD [address] [place] [address] 05/29/2024 11:00 AM EDT Appointment Vascular Lab [place] [address] [place] [address] 05/29/2024 11:30 AM EDT Appointment Vascular Lab [place] [address] [place] [address] 05/29/2024 12:00 PM EDT Office Visit Vascular Surg [place] [address] [place] [address] Willian Rosas MD [address] [place] [address] 09/17/2024 10:00 AM EDT Imaging Radiology [address] [place] [address] Pending Results Name Type Priority Associated Diagnoses [...] 09/13/2023, 090 07/2021, 11/02/2021, Additional history exists DTap/Tdap Vaccines [...] this encounter Medical Devices Implanted Type Area Ship Washer Device Identifier Shelf Expiration Date Model / Serial / Lot Greater Than 80cm, 3mm-8mm Flora, Angiograft Pvd Saphenous Veins, Cryopreserved Implanted:Qty: 1 on 01/19/2023 by Willian Rosas MD at OR [facility] Right: Leg Upper LIFENET 07/29/2026 CV>80 / [id number] / [id number] documented as of this encounter Visit [...] Advance Directives occurred with: Patient Care Teams Firmware Developer Relationship Specialty Start Date End Date Jonny Donaldson MD [address] [facility] [place] [address] PCP - General Family Medicine 05/27/14 documented as of this encounter
--- OUTSIDE RECORDS SUMMARY | 2024-04-26 14:47 | External Medical Summary | Summary of Care ---
Author Name Unknown Organization [facility] Address [address] [place] [address] Phone [phone] Care Team Providers Care Oven Technician Name Role Phone Jonny Donaldson MD Primary Care Provider + Reason for Visit * Reason Onset Date Comments Advice 01/16/2024 Encounter Details Date Type Department Care Team (Late st Contact Info) Description 01/16/2024 Telephone Oral Maxillofacial Surgery, [place] [address] [place], [place] [phone] Services, [facility] [address] [place] [address] Advice Allergies Active Allergy Reactions Criticality Noted Date Comments Cephalexin 01/28/1996 rash Doxepin 02/01/2018 Dust 04/04/2001 Nickel Anaphylaxis High 04/04/2001 Paroxetine 04/28/2003 generic only, brand ok Penicillins 03/03/1995 Rash Sulfa Antibiotics 11/27/1994 Rash documented as of this encounter (statuses as of 01/16/2024) Medications ASPIRIN EC 81 MG PO TBECIndications: [...] as of this encounter (statuses as of 01/16/2024) Active Problems Problem Noted Date Diagnosed Date [...] of the RCA 04/27/[address] Whyte [facility]. History of nonmelanoma skin cancer 05/25/2022 [...] disease) 06/27/2013 Overview (06/27/2013): 06/24/13 +CP-abnormal stress->cath @[facility]. 100% occlusion RCA with left- [...] Overview (04/25/2012): 04/20/12 AV Ablation-Dr Jeffrey Campos, [facility] Episode June 2011 around 03/12/12 [place] [facility]-P175 SVT--sched for [place] EP study Routine general medical exam ination at a health care facility 11/11/2011 Overview (07/05/2023): Cards--Dr Jeffrey Jalloh. 03/03/23 TTE [facility] normal EF, moderate LVH. Mild hypokinesis of apical septum. 01/18 Carotid US [place] stable 50-69 on left. 10/18 colonoscopy [facility] 3 3-5 polyps PATH colon-polypoid mucosa mild hyperplastic changes. Rectal polyp= hyperplastic polyp. Dr Juan Mak [facility] (11/19 06/14 Cologuard WNL. Cardiology-Jeffrey Campos [place]. 12/17 Carotid 50-69% left ICA stenosis. Vielka [...] PFT evidence of COPD ) 05/10 TTE @[place] Clsxcobrlj-yney-uqbrxc EF, mild LVH, Gr1 Feldman Dys 07/09 colonoscopy [facility] Endoscopy [place]-3 & 6mm polyp--PAth--Tubular adenoma 07/09 [place] TSH & celiac testing WNL 04/11 ER visit [facility] SVT--resolved with adenosine. 03/11 EKG-scanned [...] as of this encounter (statuses as of 01/16/2024) Resolved Problems Problem Noted Date Diagnosed Date [...] as of this encounter (statuses as of 01/16/2024) Immunizations Name Administration Dates Next Due COVID-19 mRNA, LNP-s, No Pre serve, 2-Dose Series ([employer]) 01/24/2021,01/04/2021,06/03/2020 Hepatitis B, 20+ yrs 08/27/2009,03/30/2009,02/27 Pneumococcal [...] encounter Miscellaneous Notes * Telephone Encounter - Salma Florence OSA - 01/16/2024 11:37 AM EST Patient is calling in because she had a biposy yesterday and she said that she noticed a white bubble form over the area. Please call patient back because she is concerned it may be pus. Please call patient back at [phone]. TY documented in this encounter Plan of Treatment Upcoming Encounters Date Type Department Care Team (Late st Contact Info) Description 02/12/2024 11:00 AM EST Office Visit Pharmacy, [facility] [address] [place] [address] Pharmacist1, [facility] [address] [facility] [place] [address] 02/12/2024 11:30 AM EST Pharmacy Pharmacy, [facility] [address] [place] [address] Pharmacist1, [facility] [address] [facility] [place] [address] 03/05/2024 3:40 PM EST Office Visit Family Practice [facility] [address] [address] Jonny Donaldson MD [address] [place] [address] 05/29/2024 11:00 AM EDT Appointment Vascular Lab [address] [address] 05/29/2024 11:30 AM EDT Appointment Vascular Lab [place] [address] [place] [address] 05/29/2024 12:00 PM EDT Office Visit Vascular Surg [address] [address] Willian Rosas MD [facility] [place] [address] 09/17/2024 10:00 AM EDT Imaging Radiology [address] [place] [address] Health Maintenance Due Date Last Done Comments [...] FOR COPD 06/08/2024 06/09/2023 GFR 08/03/2024 08/04/2023, 08/2023, 07/05/2023, Additional history exists Mammogram 09/12/2024 09/13/2023, 07/2021, 11/02/2021, Additional history exists DTap/Tdap Vaccines [...] this encounter Medical Devices Implanted Type Area Publicity Agent Device Identifier Shelf Expiration Date Model / Serial / Lot Greater Than 80cm, 3mm-8mm Flora, Angiograft Pvd Saphenous Veins, Cryopreserved Implanted:Qty: 1 on 01/19/2023 by Willian Rosas MD at [place] [facility] Right: Leg Upper LIFENET 07/29/2026 CV>80 / [id number] documented as of this encounter Advance [...] Advance Directives occurred with: Patient Care Teams Oven Technician Relationship Specialty Start Date End Date Jonny Donaldson MD [address] [place] [address] PCP - General Family Medicine 05/27/14 documented as of this encounter
--- OUTSIDE RECORDS SUMMARY | 2024-04-26 14:47 | External Medical Summary | Summary of Care ---
Author Name Unknown Organization [facility] Address [address] [place] [address] Phone [phone] Care Team Providers Care Composition Board Press Operator Name Role Phone Jonny Donaldson MD Primary Care Provider + Reason for Visit * Reason Onset Date Comments Advice 01/16/2024 Encounter Details Date Type Department Care Team (Late st Contact Info) Description 01/16/2024 Telephone Oral Maxillofacial Surgery, [place] [address], [place] [phone] Services, [facility] [address] [place] [address] Advice Allergies Active Allergy Reactions Criticality Noted [...] 04/27/[address] Whyte [facility] Farru[facility]. History of nonmelanoma skin cancer 05/25/2022 [...] disease) 06/27/2013 Overview (06/27/2013): 06/24/13 +CP-abnormal stress->cath @[facility]. 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 03/03/23 TTE [facility] normal EF, moderate LVH. Mild hypokinesis of apical septum. 01/18 Carotid US [place] stable 50-69 on left. 10/18 colonoscopy [facility] 3 3-5 polyps [address] colon-polypoid mucosa mild hyperplastic changes. Rectal polyp= hyperplastic polyp. Dr Juan Mak [facility] (11/19 06/14 Cologuard WNL. Cardiology-Jeffrey Campos [place]. [...] evidence of COPD ) 05/10 TTE @[place] Gphskcmgyp-nwau-xmruxx EF, mild LVH, Gr1 Feldman Dys 07/09 colonoscopy [facility] Endoscopy [place]-3 & 6mm polyp--PAth--Tubular adenoma 07/09 [place] TSH & celiac testing WNL 04/11 ER visit [facility] SVT--resolved with adenosine. 03/11 EKG-scanned [...] mRNA, LNP-s, No Pre serve, 2-Dose Series ([employer]) 01/24/2021,01/04/2021,06/03/2020 Hepatitis B, 20+ yrs 08/27/2009,03/30/2009,02/27 Pneumococcal [...] encounter Miscellaneous Notes * Telephone Encounter - Nayeli Rojo RN - 01/16/2024 12:14 PM EST Return call to patient Biopsy right soft palate 01/15/2024 Patient noticed small thick white covering over biopsy site. No drainage, no fevers, biopsy discomfort only. * Telephone Encounter - Salma Florence OSA - 01/16/2024 11:37 AM EST Patient is calling in because she had a biposy yesterday and she said that she noticed a white bubble form over the area. Please call patient back because she is concerned it may be pus. Please call patient back at [phone]. TY documented in this encounter Plan of Treatment Upcoming Encounters Date Type Department Care Team (Late st Contact Info) Description 02/12/2024 11:00 AM EST Office Visit Pharmacy, [facility] [address] [address] Pharmacist1, [facility] [address] [place] [place] [address] 02/12/2024 11:30 AM EST Pharmacy Pharmacy, [facility] [address] [facility] [place] [address] Pharmacist1, [facility] [address] [facility] [address] 03/05/2024 3:40 PM EST Office Visit [facility] [address] [place] [address] Jonny Donaldson MD [address] [place] [address] 05/29/2024 11:00 AM EDT Appointment Vascular Lab [address] [address] 05/29/2024 11:30 AM EDT Appointment Vascular Lab [place] [address] [place] [address] 05/29/2024 12:00 PM EDT Office Visit Vascular Surg [facility] [address] [place] [address] Willian Rosas MD [address] [place] [address] 09/17/2024 10:00 AM EDT Imaging Radiology [address] [place] [address] Health Maintenance Due Date Last Done Comments [...] this encounter Medical Devices Implanted Type Area Stable Helper Device Identifier Shelf Expiration Date Model / Serial / Lot Greater Than 80cm, 3mm-8mm Flora, Angiograft Pvd Saphenous Veins, Cryopreserved Implanted:Qty: 1 on 01/19/2023 by Willian Rosas MD at [place] [facility] Right: Leg Upper LIFENET 07/29/2026 CV>80 / [id number] / [id number] documented as of this encounter Advance [...] Advance Directives occurred with: Patient Care Teams Composition Board Press Operator Relationship Specialty Start Date End Date Jonny Donaldson MD [address] [place] [address] PCP - General Family Medicine 05/27/14 documented as of this encounter
--- OUTSIDE RECORDS SUMMARY | 2024-04-26 14:48 | External Medical Summary | Summary of Care ---
Author Name Unknown Organization [facility] Address [address] [place] [address] Phone [phone] Care Team Providers Care Air Twister Winder Name Role Phone Jonny Broussard MD Primary Care Provider + Reason for Visit * Reason Onset Date Comments Medication Refill 12/15/2023 Encounter Details Date Type Department Care Team (Late st Contact Info) Description 12/15/2023 Refill Family Practice [facility] [address] [place] [address] Candelaria Anglin PA-C [address] [place] [address] Type 2 diabetes mellitus with hemoglobin A1c goal of less than 8.0% ([facility]) Allergies Active Allergy Reactions Criticality Noted Date Comments Cephalexin 01/28/1996 rash Doxepin 02/01/2018 Dust 04/04/2001 Nickel Anaphylaxis High 04/04/2001 Paroxetine 04/28/2003 generic only, brand ok Penicillins 03/03/1995 Rash Sulfa Antibiotics 11/27/1994 Rash documented as of this encounter (statuses as of 12/18/2023) Medications Medication Sig Dispensed Refills Start Date End Date Status ASPIRIN EC 81 MG PO TBECIndications:Ty pe II or unspecified type diabetes mellitus with renal manifestations, uncontrolled(250.4 2) ([facility]) Take one pill daily 100 Tab 3 01/28/2014 Active fluticasone (FLONASE) 50 MCG/ACT nasal spray Administer 2 Sprays into each nostril 2 times a day. 18.2 mL 5 10/14/2019 Active Ventolin HFA 108 (90 Base) MCG/ACT Inhalation Aerosol SolutionIndication s:Cough,Acute bronchitis, complicated Inhale 2 Puffs by mouth every 4 hours as needed for Cough or Wheezing. Strength: 108 (90 Base) MCG/ACT 18 g 5 04/11/2022 Active Metoprolol Succinate ER 25 MG Oral Tablet Extended Release 24 Hour (toPROL XL)Indications:HTN , goal below 130/80 Take 1 Tablet by mouth in the morning. 90 Tablet 3 06/01/2022 Active Krill Oil 1000 MG Oral Capsule Take 1 Capsule by mouth in the morning. Active Estradiol 0.1 MG/GM Vaginal Cream (Estrace) Apply pea sized amount (0.5 gm) vaginally twice a week at bedtime 42.5 g 3 11/30/2022 Active Additional Information Patient not taking.Reported on 11/27/2023 Atorvastatin Calcium 80 MG Oral Tablet (Lipitor)Indicatio ns:Dyslipidemia, goal LDL below 100 TAKE ONE TABLET BY MOUTH EVERY DAY 90 Tablet 3 12/17/2022 Active AZO Cranberry 250-30 MG Oral Tablet Take by mouth daily. Active Probiotic Acidophilus Oral Tablet Chewable Take by mouth daily. Active Mupirocin 2 % External Ointment (Bactroban) 02/21/2023 Active Rivaroxaban 2.5 MG Oral Tablet (Xarelto) Take 1 Tablet by mouth in the morning and 1 Tablet before bedtime. 60 Tablet 11 04/06/2023 Active CoQ-10 100 MG Oral Capsule Take by mouth. Active Empagliflozin 10 MG Oral Tablet (Jardiance)Indicat ions:Type 2 diabetes mellitus with hemoglobin A1c goal of less than 8.0% ([facility]) Take 1 Tablet by mouth in the morning. In the morning.. 90 Tablet 3 05/08/2023 Active metFORMIN HCl 850 MG Oral Tablet (Glucophage)Indica tions:Type 2 diabetes mellitus with hemoglobin A1c goal of less than 8.0% ([facility]) TAKE ONE TABLET BY MOUTH THREE TIMES DAILY WITH MEALS FOR FOR DIABETES 270 Tablet 1 06/26/2023 Active Gabapentin 600 MG Oral Tablet (Neurontin)Indicat ions:Leg cramping,Restless legs syndrome Take 1 Tablet by mouth in the morning and 1 Tablet at noon and 1 Tablet before bedtime. 90 Tablet 5 07/06/2023 Active Amitriptyline HCl 50 MG Oral Tablet (Elavil)Indication s:Other chest pain,Neuralgia TAKE ONE TABLET BY MOUTH EVERY DAY 90 Tablet 3 07/10/2023 Active Sertraline HCl 50 MG Oral Tablet (Zoloft)Indication s:Generalized anxiety disorder TAKE TWO TABLETS BY MOUTH EVERY MORNING 180 Tablet 3 07/18/2023 Active Semaglutide (2 MG/DOSE) 8 MG/3ML Subcutaneous Solution Pen-injector (Ozempic)Indicatio ns:Type 2 diabetes mellitus with hemoglobin A1c goal of less than 8.0% (HCC) Inject 2 mg under the skin once a week. 9 mL 3 08/02/2023 Active Insulin Glargine Solostar 100 UNIT/ML Subcutaneous Solution Pen-injector (Basaglar KwikPen)Indication s:Type 2 diabetes mellitus with hemoglobin A1c goal of less than 8.0% (HCC) Inject 35 Units under the skin in the morning and 35 Units before bedtime. 75 mL 3 08/11/2023 Active LORazepam 0.5 MG Oral Tablet (Ativan)Indication s:Anxiety state Take 1 Tablet by mouth every 8 hours as needed for Anxiety or Insomnia. 40 Tablet 08/25/2023 Active NATURAL SUPPLEMENT Take by mouth daily. Balance of nature fruits and veggie capsules Active Chlorhexidine Gluconate 4 % External Solution (Hibiclens) Apply to legs during shower twice a week 236 mL 1 10/05/2023 Active Additional Information Patient not taking.Reported on 11/27/2023 traMADol HCl 50 MG Oral Tablet (Ultram)Indication s:Sciatica, unspecified laterality Take 1-2 Tablets by mouth every 6 hours as needed (pain). 60 Tablet 10/12/2023 Active Fiasp FlexTouch 100 UNIT/ML Subcutaneous Solution Pen-injector (Insulin Aspart (w/Niacinamide))In dications:Type 2 diabetes mellitus with hemoglobin A1c goal of less than 8.0% (HCC) Inject 26 with breakfast, 14 units with lunch, 20 units with dinner 60 mL 3 10/13/2023 Active Ketoconazole 2 % External Cream Apply topically to affected area 2 times a day. Apply to left armpit until rash improved. 30 g 1 10/16/2023 Active rOPINIRole HCl 0.5 MG Oral Tablet (Requip)Indication s:RLS (restless legs syndrome) TAKE ONE TABLET BY MOUTH AT BEDTIME and before naps 180 Tablet 3 10/25/2023 Active Ezetimibe 10 MG Oral Tablet (Zetia)Indications :Type 2 diabetes mellitus with hemoglobin A1c goal of less than 8.0% (HCC) Take 1 Tablet by mouth in the morning. 90 Tablet 3 10/25/2023 Active BD Pen Needle Tanja U/F 32G X 4 MM (Insulin Pen Needle)Indications :Type 2 diabetes mellitus with hemoglobin A1c goal of less than 8.0% (HCC) USE TO INJECT INSULIN 2-3 times per day 200 Each 3 12/18/2023 Active BD Pen Needle Tanja U/F 32G X 4 MM (Insulin Pen Needle)Indications :Type 2 diabetes mellitus with hemoglobin A1c goal of less than 8.0% (HCC) USE TO INJECT INSULIN 2-3 times per day 200 Each 3 06/30/2021 4 Discontinue d(Refill) documented as of this encounter (statuses as of 12/18/2023) Active Problems Problem Noted Date Diagnosed Date [...] disease) 06/27/2013 Overview: 06/24/13 +CP-abnormal stress->cath @[facility]. 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 [...] Overview: 04/20/12 AV Ablation-Dr Jeffrey Campos, [facility] Episode June 2011 around 03/12/12 [facility]-P175 SVT--sched for [facility] EP study Routine general medical exam ination at a health care facility 11/11/2011 Overview: Cards--Dr Jeffrey Campos [facility]. 03/03/23 TTE [facility] normal EF, moderate LVH. Mild hypokinesis of apical septum. 01/18 Carotid US [facility] stable 50-69 on left. 8/22 colonoscopy [facility] 3 3-[address] colon-polypoid mucosa mild hyperplastic changes. Rectal polyp= hyperplastic polyp. Dr Juan Mak [facility] (11/19 06/14 Cologuard WNL. Cardiology-Jeffrey Campos [facility]. 12/17 Carotid 50-69% left ICA stenosis. Vielka [...] PFT evidence of COPD ) 05/10 TTE @[facility] [id number]-lleekj EF, mild LVH, Gr1 Feldman Dys 07/09 colonoscopy [facility] Endoscopy [facility]-3 & 6mm polyp--PAth--Tubular adenoma 07/09 [facility] TSH & celiac testing WNL 04/11 ER [...] as of this encounter (statuses as of 12/18/2023) Resolved Problems Problem Noted Date Diagnosed Date [...] as of this encounter (statuses as of 12/18/2023) Immunizations Name Administration Dates Next Due COVID-19 mRNA, LNP-s, No Pre serve, 2-Dose Series ([employer]) 01/24/2021,01/04/2021,06/03/2020 Hepatitis B, 20+ yrs 08/27/2009,03/30/2009,02/27 Pneumococcal [...] encounter Miscellaneous Notes * Telephone Encounter - Mally Harrison RPh - 12/18/2023 8:50 AM EDTSigned Prescriptions: Disp Refills BD Pen Needle Tanja U/F 32G X 4 MM (Insulin*200 Ea*3 Sig: USE TO INJECT INSULIN 2-3 times per dayAuthorizing Provider: JONNY BROUSSARD User: MALLY HARRISON documented in this encounter Plan of Treatment Upcoming Encounters Date Type Department Care Team (Late st Contact Info) Description 01/05/2024 11:00 AM EST Office Visit Pharmacy, [facility] [address] [place] [address] Pharmacist2, [facility] [address] [place] [address] 01/05/2024 11:30 AM EST Pharmacy Pharmacy, [facility] [address] [facility] [place] [address] Pharmacist2, [facility] [address] [facility] [place] [address] 01/15/2024 1:30 PM EST Office Visit Oral Maxillofacial Surgery, [place] [address] [place] [address] Jay Lozano DDS, MD [address] [place] [address] 03/05/2024 3:40 PM EST Office Visit Family [facility] [address] [place] [address] Jonny Broussard MD [address] [place] [address] 05/29/2024 11:00 AM EDT Appointment Vascular Lab [address] [address] 05/29/2024 11:30 AM EDT Appointment Vascular Lab [place] [address] [place] [address] 05/29/2024 12:00 PM EDT Office Visit Vascular Surg [facility] [address] [place] [address] Willian Rosas MD [address] [place] [address] 09/17/2024 10:00 AM EDT Imaging Radiology [address] [place] [address] Health Maintenance Due Date Last Done Comments [...] this encounter Medical Devices Implanted Type Area Dish Person Device Identifier Shelf Expiration Date Model / Serial / Lot Greater Than 80cm, 3mm-8mm Flora, Angiograft Pvd Saphenous Veins, Cryopreserved Implanted:Qty: 1 on 01/19/2023 by Willian Rosas MD at [facility] Right: Leg Upper LIFENET 07/29/2026 CV>80 / [id number] / [id number] documented as of this encounter Visit Diagnoses Diagnosis Type 2 diabetes mellitus with hemoglobin A1c goal of less than 8.0% ([facility]) Screening mammogram for breast cancer [...] 01/19/2023 12:14 AM 01/19/2023 4:32 PM This ord er reflects the patients wishes and were consensually agreed upon. Question Answer Comments Discussion of Advance Directives occurred with: Patient Care Teams Air Twister Winder Relationship Specialty Start Date End Date Jonny Broussard MD [address] [place] [address] PCP - General Family Medicine 05/27/14 documented as of this encounter
--- OUTSIDE RECORDS SUMMARY | 2024-04-26 14:48 | External Medical Summary | Summary of Care ---
Author Name Unknown Organization [facility] Address [address] [place] [address] Phone [phone] Care Team Providers Care Charge Coordinator Name Role Phone Jonny Broussard MD Primary Care Provider + Reason for Visit * Reason Comments eRx-Medication Refill Encounter Details Date Type Department Care Team (Late st Contact Info) Description 01/02/2024 Refill Family Practice [facility] [address] [place] [address] Jonny Broussard MD [address] [place] [address] Leg cramping; Restless legs syndrome Allergies Active Allergy Reactions Criticality Noted Date Comments Cephalexin 01/28/1996 rash Doxepin 02/01/2018 Dust 04/04/2001 Nickel Anaphylaxis High 04/04/2001 Paroxetine 04/28/2003 generic only, brand ok Penicillins 03/03/1995 Rash Sulfa Antibiotics 11/27/1994 Rash documented as of this encounter (statuses as of 01/03/2024) Medications Medication Sig Dispensed Refills Start Date End Date Status ASPIRIN EC 81 MG PO TBECIndications:T ype [...] mouth. Active Empagliflozin 10 MG Oral Tablet (Jardiance)Indica tions:Type 2 diabetes mellitus with hemoglobin A1c [...] (2 MG/DOSE) 8 MG/3ML Subcutaneous Solution Pen-injector (Ozempic)Indicati ons:Type 2 diabetes mellitus with hemoglobin A1c [...] 4 Active LORazepam 0.5 MG Oral Tablet (Ativan)Indicatio [...] 11/27/2023 traMADol HCl 50 MG Oral Tablet (Ultram)Indicatio ns:Sciatica, unspecified laterality Take 1-2 Tablets by mouth every 6 hours as needed (pain). 60 Tablet 4 Active Fiasp FlexTouch 100 UNIT/ML Subcutaneous Solution Pen-injector (Insulin Aspart (w/Niacinamide))I ndications:Type 2 diabetes mellitus with hemoglobin A1c goal of less than 8.0% (HCC) Inject 26 with breakfast, 14 units with lunch, 20 units with dinner 60 mL 3 4 Active Ketoconazole 2 % External Cream Apply topically to affected area 2 times a day. Apply to left armpit until rash improved. 30 g 1 4 Active rOPINIRole HCl 0.5 MG Oral Tablet (Requip)Indicatio ns:RLS (restless legs syndrome) TAKE ONE TABLET BY MOUTH AT BEDTIME and before naps 180 Tablet 3 4 Active Ezetimibe 10 MG Oral Tablet (Zetia)Indication s:Type 2 diabetes mellitus with hemoglobin A1c [...] Each 3 4 Active OneTouch Verio w/Device KitIndications:Ty pe 2 diabetes mellitus with hemoglobin A1c goal of less than 8.0% (HCC) Use up to 4 times a day E11.9 1 Kit 4 Active OneTouch UltraSoft LancetsIndication s:Type 2 diabetes mellitus with hemoglobin A1c goal of less than 8.0% (HCC) Use as directed 4 times a day as needed for Hypoglycemia (low sugar). 100 Each 2 4 Active OneTouch Verio In Vitro Strip (Glucose Blood)Indications :Type 2 [...] 4 Active Gabapentin 600 MG Oral Tablet (Neurontin)Indica tions:Leg cramping,Restless legs syndrome TAKE 1 TABLET IN THE MORNING, 1 TABLET AT NOON AND 1 TABLET BEFORE BEDTIME; INCREASE DOSE 04/07/23 90 Tablet 5 4 Active Gabapentin 600 MG Oral Tablet (Neurontin)Indica tions:Leg cramping,Restless legs syndrome Take 1 Tablet by mouth in the morning and 1 Tablet at noon and 1 Tablet before bedtime. 90 Tablet 5 4 01/03/20 24 Discontinued documented as of this encounter (statuses as of 01/03/2024) Active Problems Problem Noted Date Diagnosed Date [...] of the RCA 04/27/[address] Whyte [facility] Mak[place]. History of nonmelanoma skin cancer 05/25/2022 Overview: [...] artery disease) 06/27/2013 Overview: 06/24/13 +CP-abnormal stress->cath @[facility]. 100% occlusion RCA with left- [...] 04/20/12 AV Ablation-Dr Jeffrey Campos, [facility] Episode June 2011 around 03/12/12 [facility]-[id number] SVT--sched for [facility] EP study Routine general medical exam ination at a health care facility 11/11/2011 Overview: Cards--Dr Jeffrey Campos [facility]. 03/03/23 TTE [facility] normal EF, moderate LVH. Mild hypokinesis of apical septum. 01/18 Carotid US [facility] stable 50-69 on left. 10/18 colonoscopy [facility] 3 3-[address] colon-polypoid mucosa mild hyperplastic changes. Rectal polyp= hyperplastic polyp. Dr Juan Mak [facility] (11/19 06/14 Cologuard WNL. Cardiology-Jeffrey Campos [facility]. 12/17 Carotid 50-69% left ICA stenosis. 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 Type 2 diabetes mellitus wit h hemoglobin A1c goal of less than 7.0% 12/25/2008 03/09/2011 Overview: Per Diabetes Taxonomy. ICD-10 update of inactive term ADVANCE DIRECTIVE INFORMATION 10/18/2004 01/01/2024 Overview: Yes, Patient instructed to provide copy [...] as of this encounter (statuses as of 01/03/2024) Immunizations Name Administration Dates Next Due COVID-19 [...] Telephone Encounter - Jonny Broussard MD - 01/03/2024 10:47 AM EST Signed Prescriptions: Disp Refills Gabapentin 600 MG Oral Tablet (Neurontin) 90 Tab*5 Sig: TAKE 1 TABLET IN THE MORNING, 1 TABLET AT NOON AND 1 TABLET BEFORE BEDTIME; INCREASE DOSE 04/07/23 Authorizing Provider: JONNY BROUSSARD * Telephone Encounter - Ирина Branch LPN - 01/03/2024 7:47 AM ESTPending Prescriptions: Disp Refills Gabapentin 600 MG Oral Tablet [Pharmacy Me*90 Tab*5 Sig: TAKE 1 TABLET IN THE MORNING, 1 TABLET AT NOON AND 1 TABLET BEFORE BEDTIME; INCREASE DOSE 04/07/23 * Telephone Encounter - Ирина Branch LPN - 01/03/2024 7:47 AM EST Did you pend patient's preferred pharmacy and medication before forwarding?yes Pharmacy[id number] Pending Prescriptions: Disp Refills Gabapentin 600 MG Oral Tablet (Neurontin)*90 Tab*5 Sig: TAKE 1 TABLET IN THE MORNING, 1 TABLET AT NOON AND 1 TABLET BEFORE BEDTIME; INCREASE DOSE 04/07/23 Last Visit: 10/05/2023 (in office), 08/10/2021 (telemedicine) Next Visit: 03/05/2024 If no future appointments scheduled, and last appointment is greater than a year ago, please schedule patient for a follow-up appointment Last date the medication was ordered: 07/06/23 Is this request for a controlled substance?No Urine Drug Screen:No results found. However, due to the size of the patient record, not all encounters were searched. Please check Results Review for a complete set of results. Patient Phone Numbers Labs: Lab Results Component Value Date/Time CREAT 1.08 08/04/2023 11:21 AM CREAT 0.9 11/21/2019 08:37 AM POTASSIUM 5.1 08/04/2023 11:21 AM POTASSIUM 5.1 11/21/2019 08:37 AM POTASSIUM 4.3 12/06/1995 09:55 AM TSH 2.90 01/23/2008 08:02 AM LDL 86 12/05/2022 02:21 PM LDL 83 06/23/2017 12:00 AM LDL 64 06/24/2016 12:00 AM LDLCALC 85 08/15/2019 12:00 AM ALT 20 06/15/2012 02:07 PM HGBA1C 7.9 (H) 10/13/2023 10:20 AM HGBA1C 8.5 (H) 11/21/2019 08:37 AM * Telephone Encounter - Derrick Aparicio - 01/03/2024 4:14 AM ESTPending Prescriptions: Disp Refills Gabapentin 600 MG Oral Tablet [Pharmacy Me*90 Tab*5 Sig: TAKE 1TABLET IN THE MORNING, 1 TABLET AT NOON AND 1 TABLET BEFORE BEDTIME; INCREASE DOSE 04/07/23 documented in this encounter Plan of Treatment Upcoming Encounters Date Type Department Care Team (Late st Contact Info) Description 01/15/2024 1:30 PM EST Office Visit Oral Maxillofacial Surgery, [place] [address] [place] [address] Jay Lozano DDS, MD [address] [facility] [address] 02/12/2024 11:00 AM EST Office Visit Pharmacy, [facility] [place] [address] [id number] Pharmacist1, [facility] [address] [facility] [place] [address] 02/12/2024 11:30 AM EST Pharmacy Pharmacy, [facility] [address] [facility] [place] [address] Pharmacist1, [facility] [address] [facility] [place] [address] 03/05/2024 3:40 PM EST Office Visit [facility] [address] [place] [address] [facility]oussard MD [facility] [place] [address] 05/29/2024 11:00 AM EDT Appointment Vascular Lab [place] [address] [place] [address] 05/29/2024 11:30 AM EDT Appointment Vascular Lab [place] [address] [place] [address] 05/29/2024 12:00 PM EDT Office Visit Vascular Surg [facility] [address] [place] [address] Willian Rosas MD [address] [place] [address] 09/17/2024 10:00 AM EDT Imaging Radiology [address] [place] [address] Health Maintenance Due Date Last Done Comments [...] this encounter Medical Devices Implanted Type Area Motor Transport Inspector Device Identifier Shelf Expiration Date Model / Serial / Lot Greater Than 80cm, 3mm-8mm Flora, Angiograft Pvd Saphenous Veins, Cryopreserved Implanted:Qty: 1 on 01/19/2023 by Willian Rosas MD at [facility] Right: Leg Upper LIFENET 07/29/2026 CV>80 / [id number] / [id number] documented as of this encounter Visit [...] Advance Directives occurred with: Patient Care Teams Charge Coordinator Relationship Specialty Start Date End Date Jonny Broussard MD [address] [facility] [place] [address] PCP - General Family Medicine 05/27/14 documented as of this encounter
--- OUTSIDE RECORDS SUMMARY | 2024-04-26 14:48 | External Medical Summary | Summary of Care ---
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 [employer] Name Role Phone Jonny Broussard MD Primary Care Provider + Reason for Visit * Reason Comments eRx-Medication Refill Encounter Details Date Type Department Care Team (Late st Contact Info) Description 12/25/2023 Refill Family Practice [facility] [address] [place] [id number] Jonny Broussard MD [address] [place] [address] Dyslipidemia, goal LDL below 100; Type 2 diabetes mellitus with hemoglobin A1c goal of less than 8.0% ([facility]) Allergies Active Allergy Reactions Criticality Noted Date Comments Cephalexin 01/28/1996 rash Doxepin 02/01/2018 Dust 04/04/2001 Nickel Anaphylaxis High 04/04/2001 Paroxetine 04/28/2003 generic only, brand ok Penicillins 03/03/1995 Rash Sulfa Antibiotics 11/27/1994 Rash documented as of this encounter (statuses as of 12/26/2023) Medications Medication Sig Dispensed Refills Start Date End Date Status ASPIRIN EC 81 MG PO TBECIndications:T ype II or unspecified type diabetes mellitus with renal manifestations, uncontrolled(250. 42) ([facility]) Take one pill daily [...] of less than 8.0% ([facility]) Take 1 Tablet by mouth in the morning. In the morning.. 90 Tablet 3 4 Active Gabapentin 600 MG Oral Tablet (Neurontin)Indica tions:Leg cramping,Restless legs syndrome Take 1 Tablet by mouth in the morning and 1 Tablet at noon and 1 Tablet before bedtime. 90 Tablet 5 4 Active Amitriptyline HCl 50 MG Oral [...] per day 200 Each 3 4 Active TrochetToTravark Verio w/Device KitIndications:Ty pe 2 diabetes mellitus with hemoglobin A1c goal of less than 8.0% (HCC) Use up to 4 times a day E11.9 1 Kit 4 Active TrochetTouch UltraSoft LancetsIndication s:Type 2 diabetes mellitus with hemoglobin A1c goal of less than 8.0% (HCC) Use as directed 4 times a day as needed for Hypoglycemia (low sugar). 100 Each 2 4 Active Mingleplay Verio In Vitro Strip (Glucose Blood)Indications :Type [...] WITH MEALS diabetes 270 Tablet 4 Active Atorvastatin Calcium 80 MG Oral Tablet (Lipitor)Indicati ons:Dyslipidemia, goal LDL below 100 TAKE ONE TABLET BY MOUTH EVERY DAY 90 Tablet 3 3 12/26/19 24 Discontinued metFORMIN HCl 850 MG Oral Tablet (Glucophage)Indic ations:Type 2 diabetes mellitus with hemoglobin A1c goal of less than 8.0% (HCC) TAKE ONE TABLET BY MOUTH THREE TIMES DAILY WITH MEALS FOR FOR DIABETES 270 Tablet 1 4 12/26/19 24 Discontinued documented as of this encounter (statuses as of 12/26/2023) Active Problems Problem Noted Date Diagnosed Date [...] disease) 06/27/2013 Overview: 06/24/13 +CP-abnormal stress->cath @[facility]. 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 [...] [facility] around 03/12/12 [facility]-[id number] SVT--sched for [facility] EP study Routine general medical exam ination at a health care facility 11/11/2011 Overview: Cards--Dr Jeffrey Jalloh. 03/03/23 TTE [facility] normal EF, moderate LVH. Mild hypokinesis of apical septum. 01/18 Carotid US [facility] stable 50-69 on left. 10/18 colonoscopy [facility] 3 3-[address] colon-polypoid mucosa mild hyperplastic changes. Rectal polyp= hyperplastic polyp. Dr Juan Mak [facility] (11/19 06/14 Cologuard WNL. Cardiology-Jeffrey Campos [facility]. 12/17 Carotid 50-69% left ICA stenosis. Vielka [...] PFT evidence of COPD ) 05/10 TTE @[facility] [id number] EF, mild LVH, Gr1 Feldman Dys 07/09 colonoscopy [facility] Cross-3 & 6mm polyp--PAth--Tubular adenoma 07/09 [facility] TSH & celiac testing WNL 04/11 ER [...] as of this encounter (statuses as of 12/26/2023) Resolved Problems Problem Noted Date Diagnosed Date [...] as of this encounter (statuses as of 12/26/2023) Immunizations Name Administration Dates Next Due COVID-19 mRNA, LNP-s, No Pre serve, 2-Dose Series ([employer]) 01/24/2021,01/04/2021,06/03/2020 Hepatitis B, 20+ yrs 08/27/2009,03/30/2009,02/27 Pneumococcal [...] Notes * Telephone Encounter - Quita Marcum, [facility] - 12/26/2023 12:52 PM EDT RX authorized. Zero refills given until upcoming lab appt . Thank you, Quita Marcum PharmD Clinical Pharmacist [facility] 12/26/23 12:52 PM [phone] * Telephone Encounter - Quita Marcum [facility] - 12/26/2023 12:52 PM EDTSigned Prescriptions: Disp Refills Atorvastatin Calcium 80 MG Oral Tablet (Li*90 Tab*0 Sig: TAKE ONE TABLET BY MOUTH EVERY DAY Authorizing Provider: JONNY BROUSSARD Ordering User: QUITA MARCUM metFORMIN HCl 850 MG Oral Tablet (Glucopha*270 Ta*0 Sig: TAKE ONE TABLET BY MOUTH THREE TIMES DAILY WITH MEALS diabetes Authorizing Provider: JONNY BROUSSARD Ordering User: QUITA MARCUM documented in this encounter Plan of Treatment Upcoming Encounters Date Type Department Care Team (Late st Contact Info) Description 12/28/2023 8:00 AM EDT Laboratory Laboratory [address] [place] [phone] [place] [address] 01/05/2024 11:00 AM EST Office Visit Pharmacy, [facility] [address] [place] [address] Pharmacist2, [facility] [address] [place] [address] 01/05/2024 11:30 AM EST Pharmacy Pharmacy, [facility] [address] [place] [address] Pharmacist2, [facility] [address] [place] [address] 01/15/2024 1:30 PM EST Office Visit Oral Maxillofacial Surgery, [place] [address] [place] [address] Jay Lozano DDS, MD [address] [place] [address] 03/05/2024 3:40 PM EST [facility] [place] [address] Jonny Broussard MD [address] [facility] [place] [address] 05/29/2024 11:00 AM EDT Appointment Vascular Lab [facility] [address] [place] [address] 05/29/2024 11:30 AM EDT Appointment Vascular Lab [facility] [address] [place] [address] 05/29/2024 12:00 PM EDT Office Visit Vascular Surg [facility] [address] [place] [address] Willian Rosas MD [address] [place] [address] 09/17/2024 10:00 AM EDT Imaging Radiology [address] [place] [address] Health Maintenance Due Date Last Done Comments [...] this encounter Medical Devices Implanted Type Area Systems Integration Advisor Device Identifier Shelf Expiration Date Model / Serial / Lot Greater Than 80cm, 3mm-8mm [place]ora, Angiograft Pvd Saphenous Veins, Cryopreserved Implanted:Qty: 1 on 01/19/2023 by Willian Rosas MD at [place] [facility] Right: Leg Upper LIFENET 07/29/2026 CV>80 / [id number] / [id number] documented as of this encounter Visit Diagnoses Diagnosis Dyslipidemia, goal LDL below 100 Other and unspecified hyperlipidemia Type 2 diabetes mellitus with hemoglobin A1c goal of less than 8.0% ([facility]) Screening mammogram for breast cancer documented [...] Advance Directives occurred with: Patient Care Teams Librarian School Relationship Specialty Start Date End Date Jonny Broussard MD [address] [place] [address] PCP - General Family Medicine 05/27/14 documented as of this encounter
--- OUTSIDE RECORDS SUMMARY | 2024-04-26 14:48 | External Medical Summary | Summary of Care ---
Author Name Unknown Organization [facility] Address [address] [place] [address] Phone [phone] Care Team Providers Care Rehabilitation Tech Name Role Phone Jonny Donaldson MD Primary Care Provider + Reason for Visit * Reason Comments Evaluation * Evaluate & Treat - Unlimited Visits (Within 3 days (urgent)) - Authorized Specialty Diagnoses / Procedures Referred By Joy fortune Referred To Contact Oral/Maxillofacial Surgery / Oral Maxillary Surgery Diagnoses Oral lesion Jonny Donaldson MD [address] [place] [address] Referral ID Status Reason Start Date Expiration Date Visits Requested Visits Authorized [id number] Authorized Specialty Services Required 12/01/2023 [id number] Encounter Details Date Type Department Care Team (Latest Contact Info) Description 12/08/2023 2:30 PM EDT Office Visit Oral Maxillofacial Surgery, [place] [address] [place] [address] Jay Lozano DDS, MD [address], [place] [id number] Oral mucosal lesion* Allergies Active Allergy Reactions Criticality Noted Date Comments Cephalexin 01/28/1996 rash Doxepin 02/01/2018 Dust 04/04/2001 Nickel Anaphylaxis High 04/04/2001 Paroxetine 04/28/2003 generic only, brand ok Penicillins 03/03/1995 Rash Sulfa Antibiotics 11/27/1994 Rash documented as of this encounter (statuses as of 12/11/2023) Medications Medication Sig Dispensed Refills Start Date End Date Status ASPIRIN EC 81 MG PO TBECIndications:Typ e II or unspecified type diabetes mellitus with renal manifestations, uncontrolled(250.42 ) ([facility]) Take one pill daily 100 Tab 3 01/28/2014 Active fluticasone (FLONASE) 50 MCG/ACT nasal spray Administer 2 Sprays into each nostril 2 times a day. 18.2 mL 5 10/14/2019 Active BD Pen Needle Tanja U/F 32G X 4 MM (Insulin Pen Needle)Indications: Type 2 diabetes mellitus with hemoglobin A1c goal of less than 8.0% ([facility]) USE TO INJECT INSULIN 2-3 times per day 200 Each 3 06/30/2021 Active Ventolin HFA 108 (90 Base) MCG/ACT Inhalation Aerosol SolutionIndications :Cough,Acute bronchitis, complicated Inhale 2 Puffs by mouth every 4 hours as needed for Cough or Wheezing. Strength: 108 (90 Base) MCG/ACT 18 g 5 04/11/2022 Active Metoprolol Succinate ER 25 MG Oral Tablet Extended Release 24 Hour (toPROL XL)Indications:HTN, goal below 130/80 Take 1 Tablet by [...] 11/27/2023 Atorvastatin Calcium 80 MG Oral Tablet (Lipitor)Indication s:Dyslipidemia, goal LDL below 100 TAKE ONE TABLET [...] mouth. Active Empagliflozin 10 MG Oral Tablet (Jardiance)Indicati ons:Type 2 diabetes mellitus with hemoglobin A1c goal of less than 8.0% (HCC) Take 1 Tablet by mouth in the morning. In the morning.. 90 Tablet 3 05/08/2023 Active metFORMIN HCl 850 MG Oral Tablet (Glucophage)Indicat ions:Type 2 diabetes mellitus with hemoglobin A1c goal of less than 8.0% (HCC) TAKE ONE TABLET BY MOUTH THREE TIMES DAILY WITH MEALS FOR FOR DIABETES 270 Tablet 1 06/26/2023 Active Gabapentin 600 MG Oral Tablet (Neurontin)Indicati ons:Leg cramping,Restless legs syndrome Take 1 Tablet by mouth in the morning and 1 Tablet at noon and 1 Tablet before bedtime. 90 Tablet 5 07/06/2023 Active Amitriptyline HCl 50 MG Oral Tablet (Elavil)Indications :Other chest pain,Neuralgia TAKE ONE TABLET BY MOUTH EVERY DAY 90 Tablet 3 07/10/2023 Active Sertraline HCl 50 MG Oral Tablet (Zoloft)Indications :Generalized anxiety disorder TAKE TWO TABLETS BY MOUTH EVERY MORNING 180 Tablet 3 07/18/2023 Active Semaglutide (2 MG/DOSE) 8 MG/3ML Subcutaneous Solution Pen-injector (Ozempic)Indication s:Type 2 diabetes mellitus with hemoglobin A1c goal of less than 8.0% (HCC) Inject 2 mg under the skin once a week. 9 mL 3 08/02/2023 Active Insulin Glargine Solostar 100 UNIT/ML Subcutaneous Solution Pen-injector (Basaglar KwikPen)Indications :Type 2 diabetes mellitus with hemoglobin A1c goal of less than 8.0% (HCC) Inject 35 Units under the skin in the morning and 35 Units before bedtime. 75 mL 3 08/11/2023 Active LORazepam 0.5 MG Oral Tablet (Ativan)Indications :Anxiety state Take 1 Tablet by mouth every [...] 11/27/2023 traMADol HCl 50 MG Oral Tablet (Ultram)Indications :Sciatica, unspecified laterality Take 1-2 Tablets by mouth every 6 hours as needed (pain). 60 Tablet 10/12/2023 Active Fiasp FlexTouch 100 UNIT/ML Subcutaneous Solution Pen-injector (Insulin Aspart (w/Niacinamide))Ind ications:Type 2 diabetes mellitus with hemoglobin A1c goal of less than 8.0% (HCC) Inject 26 with breakfast, 14 units with lunch, 20 units with dinner 60 mL 3 10/13/2023 Active Ketoconazole 2 % External Cream Apply topically to affected area 2 times a day. Apply to left armpit until rash improved. 30 g 1 10/16/2023 Active rOPINIRole HCl 0.5 MG Oral Tablet (Requip)Indications :RLS (restless legs syndrome) TAKE ONE TABLET BY MOUTH AT BEDTIME and before naps 180 Tablet 3 10/25/2023 Active Ezetimibe 10 MG Oral Tablet (Zetia)Indications: Type 2 diabetes mellitus with hemoglobin A1c goal of less than 8.0% (HCC) Take 1 Tablet by mouth in the morning. 90 Tablet 3 10/25/2023 Active documented as of this encounter (statuses as of 12/11/2023) Active Problems Problem Noted Date Diagnosed Date [...] RCA 04/27/[address] Whyte [facility]. History of nonmelanoma skin cancer 05/25/2022 Overview: [...] artery disease) 06/27/2013 Overview: 06/24/13 +CP-abnormal stress->cath @[facility]. 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 85% Circ (stented RACHAEL), LAD 20%. EF shows inferior hypokinesis EF 45% Stent--Medtronic Resolute INtegrity Zotarolimus stent Circumflex. 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 03/03/23 TTE [facility] normal EF, moderate LVH. Mild hypokinesis of apical septum. 01/18 Carotid US [facility] stable 50-69 on left. 8/22 colonoscopy [facility] 3 3-5 polyps PATH colon-polypoid mucosa mild hyperplastic changes. Rectal polyp= hyperplastic polyp. Dr Juan Mak [facility] (11/19 06/14 Cologuard WNL. Cardiology-Jeffrey Campos [facility]. 12/17 Carotid 50-69% left ICA stenosis. Vielka [...] PFT evidence of COPD ) 05/10 TTE @[facility] Ovczkwgpyu-dziz-eawbiy EF, mild LVH, Gr1 Feldman Dys 07/09 colonoscopy [facility] [place]-3 & 6mm polyp--PAth--Tubular adenoma 07/09 [facility] TSH & celiac testing WNL 04/11 ER visit [facility] SVT--resolved with adenosine. 03/11 EKG-scanned QTc 414 [...] as of this encounter (statuses as of 12/11/2023) Resolved Problems Problem Noted Date Diagnosed Date [...] as of this encounter (statuses as of 12/11/2023) Immunizations Name Administration Dates Next Due COVID-19 mRNA, LNP-s, No Pre serve, 2-Dose Series (Vocalocity) 01/24/2021,01/04/2021,06/03/2020 Hepatitis B, 20+ yrs 08/27/2009,03/30/2009,02/27 Pneumococcal Conjugate Vacc, 13 Valent (Prevnar) 01/28/2022 Pneumococcal Polysaccharide PPV23 (Pneumovax) 10/20/2020,11/15/1994 Seasonal Influenza Vac., MDV , IM, 0.5 mL (Fluzone) 10/29/2014,01/02/2014,11/26/2012,01/27,12/26/2010,12/21/2009,12/03/19,12/30/2005,11/27/1994,02/27/1993 Seasonal Influenza, High Dos e, Trivalent, PF, [...] Sign Reading Time Taken Comments Blood Pressure 94/64 12/08/2023 2:36 PM EDT man ual Pulse 100 12/08/2023 2:35 PM EDT Temperature 36.3 C (97.3 F) 12/08/2023 2:35 PM ED T Respiratory Rate - - Oxygen Saturation 90% 12/08/2023 2:35 PM EDT Inhaled Oxygen Concentration - - Weight - [...] as of this encounter Progress Notes * Jay Lozano DDS, MD - 12/11/2023 5:42 PM EDT I have discussed the patient's management with the medical trainee and agree with the note. Please refer to the documented findings and plan of care. This patient's visit today consisted of an evaluation. I was present and confirmed the findings of the history and exam. Jay Lozano DDS, MD * Nicole Olguin DDS - 12/08/2023 2:40 PM EDT Images from the original note were not included. Outpatient Visit Department of Oral & Maxillofacial Surgery Oral Maxillofacial Surgery[address] [address] Name: Mariia Liao : 1955 Date: 12/08/2023 Patient ID and History HPI: Mariia Liao is a 68 year old female who presents with a referral from [facility] for evaluation of lesion of the right soft palate. Patient reports she was unaware of the lesion until itwas pointed out at the dental visit on 11/30/2023. Denies pain, swelling, bleeding, paresthesia, changes in size,shape,color of the lesion. Denies F/C/N/V/SOB/CP. PMHx: CAD, CABG, Type II diabetes, diabetic retinopathy, CVA, PAD, COPD. Subjective Subjective Review of Systems: Respiratory: negative for shortness of breath, coughing, wheezing Cardiovascular: negative for shortness of breath, chest pain, palpitations Functional Capacity: can walk up two flights of stairs without stopping PMH: Past Medical History: Diagnosis Date Allergic rhinitis Background diabetic retinopathy(362.01) 05/27/201405/[address] Montez Q6mo monitoring Benign neoplasm of colon 07/30/2010 polyps x 2--adenomatous tissue--repeat in 3 yrs , diverticulosis & fair prep-- CAD (coronary artery disease) 06/27/2013 06/24/13 +CP-abnormal stress->cath @[facility]. 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 85% Circ (stented RACHAEL), LAD 20%. EF shows inferior hypokinesis EF 45% Carotid artery stenosis without cerebral infarction, left 12/30/2020 Chronic sinusitis 06/07/2001 Diabetic macular edema of both eyes ([facility]) 01/14/2019 DM type 2, goal A1C 7-8 DM type 2, goal A1c below 7 1998 Dyslipidemia, goal to be determined Generalized anxiety disorder Heart failure, systolic, due to CAD ([facility]) 06/27/2013 [place] History of 2019 novel coronavirus [...] DYSRHYTHM FOCUS 04/20/2012 AV Ablation-Dr Jeffrey Campos, [facility] BREAST LESION,OTHER,EXCISION Left benign BYPASS GRFT OTHER-CAROTID Right 05/02/[address] Oshea [facility] CARDIAC CATH SCANNED RESULT 06/24/2013 +Circ stent RACHAEL. CARPAL TUNNEL SURGERY 08/1992 Carpal Tunnel repair CARPAL TUNNEL SURGERY Left 12/11/2019 NEUROPLASTY MEDIAN NERVE AT CARPAL TUNNEL performed by Pankaj Osorio MD at OR [facility] COLONOSCOPY W/ LESION REMOVAL, SNARE 07/30/2010 polyps x 2--adenomatous tissue--repeat in 3 yrs , diverticulosis & fair prep-- COLONOSCOPY, DIAGNOSTIC (RECTUM) 10/02/2015 adenomatous polyps, diverticulosis, poor prep, repeat 1 yr/[facility] ENDART DEEP FEMORAL Right 01/19/2023 DEEP FEMORAL ENDARTERECTOMY performed by Willian Rosas MD at OR [facility] EXPLORATION OF MAXILLARY SINUS 06/07/2001 Sinus Surgery HYSTEROSCOPY W/BIOPSY AND/OR POLYPECTOMY W/WO D&C 02/14/2006 INFORMATION ablation INSERT NEEDLE/CATHETER, EXTREMITY ARTERY Right 06/09/2023 CATHETER INTRODUCTION, EXTREMITY ARTERY performed by Willian Rosas MD at OR [facility] INTRODUCTION OF CATHETER, AORTA 01/19/2023 CATHETER PLACEMENT, AORTA performed by Willian Rosas MD at OR [facility] IR ARTERIOGRAM EXTREMITY UNILATERAL Right 06/09/2023 IMAGING SUPERVISION & INTERPRETATION EXTREMITY UNILATERAL [facility] LAP;OCCULSION OVIDUCTS/DEVICE 1985 LIGATE/CUT OVIDUCT(S) tubal ligation -rings CT CORONARY ARTERY BYP W/VEIN & ARTERY GRAFT 3 VEIN 04/27/2022 KUMAR to LAD, SVG to PL of LCx and PDA of the RCA 04/27/[address] Whyte [facility]. PULMONARY FUNCTION TEST SCREEN 10/09/2001 normal REMOVE [...] performed by Willian Rosas MD at OR [facility] TOTAL ABD HYSTERECTOMY W/WO REMOVAL OF TUBE(S) 06/23/2008 & oopherectomy VAGINAL DELIVERY ONLY VENOGRAM EXTREMITY UNI-FLUOR Right 01/19/2023 IMAGING SUPERVISION & INTERPRETATION EXTREMITY VEIN performed by Willian Rosas MD at [facility] Meds: Current Outpatient Medications Medication Sig Dispense Refill rOPINIRole HCl 0.5 MG Oral Tablet (Requip) TAKE ONE TABLET BY MOUTH AT BEDTIME and before naps 180 Tablet 3 Ketoconazole 2 % External Cream Apply topically to affected area 2 times a day. Apply to left armpit until rash improved. 30 g 1 Fiasp FlexTouch 100 UNIT/ML Subcutaneous Solution Pen-injector (Insulin Aspart (w/Niacinamide)) Inject 26 with breakfast, 14 units with lunch, 20 units with dinner 60 mL 3 traMADol HCl 50 MG Oral Tablet (Ultram) Take 1-2 Tablets by mouth every 6 hours as needed (pain). 60 Tablet 0 NATURAL SUPPLEMENT Take by mouth daily. Balance of nature fruits and veggie capsules LORazepam 0.5 MG Oral Tablet (Ativan) Take 1 Tablet by mouth every 8 hours as needed for Anxiety orInsomnia. 40 Tablet 0 Insulin Glargine Solostar 100 UNIT/ML Subcutaneous Solution Pen-injector (Basaglar KwikPen) Inject 35 Units under the skin in the morning and 35 Units before bedtime. 75 mL 3 Semaglutide (2 MG/DOSE) 8 MG/3ML Subcutaneous Solution Pen-injector (Ozempic) Inject 2 mg under theskin once a week. 9 mL 3 Sertraline HCl 50 MG Oral Tablet (Zoloft) TAKE TWO TABLETS BY MOUTH EVERY MORNING 180 Tablet 3 Amitriptyline HCl 50 MG Oral Tablet (Elavil) TAKE ONE TABLET BY MOUTH EVERY DAY 90 Tablet 3 Gabapentin 600 MG Oral Tablet (Neurontin) Take 1 Tablet by mouth in the morning and 1 Tablet at noon and 1 Tablet before bedtime. 90 Tablet 5 metFORMIN HCl 850 MG Oral Tablet (Glucophage) TAKE ONE TABLET BY MOUTH THREE TIMES DAILY WITH MEALSFOR FOR DIABETES 270 Tablet 1 Empagliflozin 10 MG Oral Tablet (Jardiance) Take 1 Tablet by mouth in the morning. In the morning..90 Tablet 3 CoQ-10 100 MG Oral Capsule Take by mouth. Rivaroxaban 2.5 MG Oral Tablet (Xarelto) Take 1 Tablet by mouth in the morning and 1 Tablet before bedtime. 60 Tablet 11 Mupirocin 2 % External Ointment (Bactroban) AZO Cranberry 250-30 MG Oral Tablet Take by mouth daily. Probiotic Acidophilus Oral Tablet Chewable Take by mouth daily. Atorvastatin Calcium 80 MG Oral Tablet (Lipitor) TAKE ONE TABLET BY MOUTH EVERY DAY 90 Tablet 3 Krill Oil 1000 MG Oral Capsule Take 1 Capsule by mouth in the morning. Metoprolol Succinate ER 25 MG Oral Tablet Extended Release 24 Hour (toPROL XL) Take 1 Tablet by mouth in the morning. 90 Tablet 3 BD Pen Needle Tanja U/F 32G X 4 MM (Insulin Pen Needle) USE TO INJECT INSULIN 2-3 times per day 200 Each 3 ASPIRIN EC 81 MG PO TBEC Take one pill daily 100 Tab 3 Ezetimibe 10 MG Oral Tablet (Zetia) Take 1 Tablet by mouth in the morning. 90 Tablet 3 Chlorhexidine Gluconate 4 % External Solution (Hibiclens) Apply to legs during shower twice a week (Patient not taking: Reported on 11/27/2023) 236 mL 1 Estradiol 0.1 MG/GM Vaginal Cream (Estrace) Apply pea sized amount (0.5 gm) vaginally twice a week at bedtime (Patient not taking: Reported on 11/27/2023) 42.5 g 3 Ventolin HFA 108 (90 Base) MCG/ACT Inhalation Aerosol Solution Inhale 2 Puffs by mouth every 4 hours as needed for Cough or Wheezing. Strength: 108 (90 Base) MCG/ACT 18 g 5 fluticasone (FLONASE) 50 MCG/ACT nasal spray Administer 2 Sprays into each nostril 2 times a day. 18.2 mL 5 No current facility-administered medications for this visit. All: Review of patient's allergies indicates: Allergen Reactions Nickel Anaphylaxis Cephalexin rash Doxepin Dust Paroxetine generic only, brand ok Penicillins Rash Sulfa Antibiotics Rash Fhx: Family History Problem Relation Name Age of Onset Hypertension Mother Arthritis Mother Diabetes Father diet controlled Diabetes Sister Hypertension Sister Other (uticaria) Sister Cancer Grandfather (Paternal) gi cancer- Cancer Grandmother (Paternal) leukemia Other (anxiety) Grandmother (Paternal) Other (hyperlidemia) Sister Eye Problems Brother glaucoma No Past Hx Brother No Past Hx Daughter Allergies Sister hives Asthma Aunt (Unspecified) SHx: Social History Socioeconomic History Marital status: Spouse name: Efrem Number of children: 1 Years of education: 12 Highest education level: Not on file Occupational History Occupation: retired. Employer: [employer] [id number] Comment: [employer] [facility] Tobacco Use Smoking status: Former Current packs/day: 0.00 Average packs/day: 0.9 packs/day for 40.0 years (36.0 ttl pk-yrs) Types: Cigarettes Start date: 12/08/1981 Quit date: 12/08/2021 Years since quittin.0 Smokeless tobacco: Never Tobacco comments: 10/04/2019 smokes 15 cigarettes per day on booklet and patches Vaping Use Vaping status: Never Used Substance and Sexual Activity Alcohol use: Yes Comment: very rare Drug use: No Sexual activity: Yes Partners: Male control/protection: Surgical Comment: tubal. [id number]+. 1 daughter 28Y Other Topics Concern Service [...] Social Determinants of Health Financial Resource Strain: Low Risk (12/16/2022) Financial Resource Strain Do you have any trouble paying for your medications, or do you think you might in the future? (Adult - for ages 18 years and over): No Does your family have trouble paying for medicine? (Household - for ages 0-17 years): Not on file Food Insecurity: No Food [...] 0-17 years): Not on file Social Connections: Socially Integrated (12/16/2022) Social Connections How often do you feel lonely or isolated from those around you? (Adult - for ages 18 years and over): Never Housing Stability: Low Risk (01/19/2023) Housing Stability Do you currently live in a custodial or have no steady place to sleep at night? (Adult - for ages 18 years and over): No Do you think you are at risk [...] - for ages0-17 years): Not on file Objective Objective Filed Vitals: 12/08/23 1435 12/08/23 1436 BP: 85/63 94/64 Pulse: 100 Temp: 36.3 C (97.3 F) SpO2: 90% Estimated body mass index is 37.38 kg/m as calculated from the following: Height as of 10/05/23: 1.778 m (5' 10"). Weight as of 11/27/23: 118.2 kg (260 lb 8 oz). GENERAL APPEARANCE: cooperative, appears stated age, well-appearing, well- developed, normal eye contact, no acute distress HEENT: H: normocephalic, no lesions, ulcerations, swelling, erythema, tenderness, or asymmetry E: EOMI, PERRL, sclera white w/o injection, conjunctiva pink E: hearing grossly intact, no otorrhea N: nares patent, no rhinorrhea, mucosa moist T: supple, non-tender, trachea midline, soft, full range of motion, no palpable LAD ORAL CAVITY/OROPHARYNX: Dentition: no gross caries, no mobile teeth, edentulous maxilla. TMJ: no click, crepitus, or palpable pain, YUMIKO: > 35 mm Soft Tissues and Mucosa: 3x3 mm red exophytic,mobile lesion, blanches on digital manipulation, non-tender to palpation on the right soft palate. Flat 1x1 mm red spot posterior to the previously described lesion. Otherwise, lips, buccal mucosa, gingiva, FOM, tongue, oropharynx without erythema, tenderness, ulceration, or lesions MP: II CHEST/LUNGS: normal respiratory effort on room air CARDIAC: distally perfused EXTREMITIES: no edema, no cyanosis NEUROLOGIC EXAM: alert & oriented x 3 with fluent speech, CN II-XII intact MUSCULOSKELETAL: ambulates without difficulty, no gross deformities PSYCH: normal mood and affect Clinical Photo Assessment & Plan Mariia Liao is a 68 year old female who presents with lesion of the right soft palate, possible differentials included papilloma, hemangioma, low suspicious for a malignant process. ICD-10-CM 1. Oral mucosal lesion K13.70 Recommend performing a biopsy of the lesion to establish diagnosis and treatment plan. Will reach out to PCP and rn medication to ensure patient is optimized for the procedure. Tentative plan to biopsy the lesion under local anesthesia in [address] Campos in [place] [phone] rn medication Jonny Donaldson MD PCP [employer] system Discussed findings and recommendations, as above. Questions invited and answered. Patient demonstrated understanding. Return in about 4 weeks (around 01/05/2024) for biopsy of soft palate lesion (verify clearance from cardiology). Note by: Nicole Olguin DDS documented in this encounter Nursing Notes * Suzi Gonzalez EFDA - 12/08/2023 2:31 PM EDT Reviewed medical history with patient. No changes noted. Asked patient status before taking x-ray N/A RETURN EDUCATION SCREENING Today's Date: 12/08/2023 Understands Current Diagnosis: Yes Understands Current Treatment: [...] 01/05/2024 11:00 AM EST Office Visit Pharmacy, [address] [place] [address] Pharmacist2, [facility] [address] [facility] [place] [address] 01/05/2024 11:30 AM EST Pharmacy Pharmacy, [facility] [address] [place] [address] Pharmacist2, [facility] [address] [facility] [place] [address] 03/05/2024 3:40 PM EST Office Visit Family [facility] [address] [place] [address] Jonny Donaldson MD [address] [place] [address] 05/29/2024 11:00 AM EDT Appointment Vascular [facility] [place] [address] [place] [address] 05/29/2024 11:30 AM EDT Appointment Vascular [facility] [place] [address] [place] [address] 05/29/2024 12:00 PM EDT Office Visit Vascular Surg [place] [address] [place] [address] Willian Rosas MD [address] [place] [address] 09/17/2024 10:00 AM EDT Imaging Radiology [address] [place] [address] Scheduled Referrals Name Type Priority Associated Diagnoses Order Schedule ORAL & MAXILLOFACIAL SURGERY REFERRAL OP Referral Within 3 days (urgent) Oral lesion Ordered: 12/01/2023 Health Maintenance Due Date Last Done Comments [...] this encounter Medical Devices Implanted Type Area Theatre Arts Professor Device Identifier Shelf Expiration Date Model / Serial / Lot Greater Than 80cm, 3mm-8mm Flora, Angiograft Pvd Saphenous Veins, Cryopreserved Implanted:Qty: 1 on 01/19/2023 by Willian Rosas MD at OR [facility] Right: Leg Upper LIFENET 07/29/2026 CV>80 / [id number] / [id number] documented as of this encounter Visit Diagnoses Diagnosis Oral mucosal lesion- Primary Other and unspecified diseases of [...] Directives occurred with: Patient Care Teams Rehabilitation Tech Relationship Specialty Start Date End Date Jonny Donaldson MD [address] [facility] [place] [address] PCP - General Family Medicine 05/27/14 documented as of this encounter
--- OUTSIDE RECORDS SUMMARY | 2024-04-26 14:48 | External Medical Summary | Summary of Care ---
Author Name Unknown Organization [facility] Address [address] [place] [address] Phone [phone] Care Team Providers Care Aluminum Can Collector Name Role Phone Jonny Donaldson MD Primary Care Provider + Reason for Visit * Reason Onset Date Comments Medication Question 12/15/2023 Encounter Details Date Type Department Care Team (Late st Contact Info) Description 12/15/2023 Telephone [facility] Services, Maddie Preston [address] [place] [address] [place] [address] Pharmacist2, [facility] [address] Medication Question Allergies Active Allergy Reactions Criticality Noted Date Comments Cephalexin 01/28/1996 rash Doxepin 02/01/2018 Dust 04/04/2001 Nickel Anaphylaxis High 04/04/2001 Paroxetine 04/28/2003 generic only, brand ok Penicillins 03/03/1995 Rash Sulfa Antibiotics 11/27/1994 Rash documented as of this encounter (statuses as of 12/15/2023) Medications Medication Sig Dispensed Refills Start Date End Date Status ASPIRIN EC 81 MG PO TBECIndications:Typ e 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 03/03/23 TTE [facility] normal EF, moderate LVH. Mild hypokinesis of apical septum. 01/18 Carotid [facility] stable 50-69 on left. 10/18 colonoscopy [place]. [...] PFT evidence of COPD ) 05/10 TTE [facility] Zumhulpgav-zygp-meapnu EF, mild LVH, Gr1 Feldman Dys 07/09 colonoscopy [facility] [place]-3 & 6mm polyp--PAth--Tubular adenoma 07/09 [facility] TSH & celiac testing WNL 04/11 ER [...] as of this encounter (statuses as of 12/15/2023) Resolved Problems Problem Noted Date Diagnosed Date [...] as of this encounter (statuses as of 12/15/2023) Immunizations Name Administration Dates Next Due COVID-19 mRNA, LNP-s, No Pre serve, 2-Dose Series (Guitar Party) 01/24/2021,01/04/2021,06/03/2020 Hepatitis B, 20+ yrs 08/27/2009,03/30/2009,02/27 Pneumococcal [...] Miscellaneous Notes * Telephone Encounter - Giorgio King [facility] - 12/15/2023 2:25 PM EDT Images from the original note were not included. Patient Phone Numbers Pt reports lows 2x this week. After review of the dexcom data it appears that the lows were fleeting and have not been happening frequently prior to this. Pt agreeable to continue on current insulin regimen but recommended she keep track of her meal composition if this occurs again in the future aswe may need to adjust insulin for specific meal compositions. Giorgio King, PharmD, BCACP, [facility] Clinical Pharmacist 12/15/2023, 2:27 PM * Telephone Encounter - Jacob Tiwari CPhT - 12/15/2023 2:01 PM EDT Caller's name: Mariia Liao Preferred call back number(OFFICE NUMBER FOR ): [phone] Reason for call: Medication question: patient would like to speak with [facility] regarding insulin usage and BS readings. Thank you, Jacob Tiwari CPhT Dog Walker II [facility] ([facility]) 12/15/2023,2:02 PM documented in this encounter Plan of Treatment Upcoming Encounters Date Type Department Care Team (Late st Contact Info) Description 01/05/2024 11:00 AM EST Office Visit Pharmacy, [facility] [address] [facility] [place] [address] Pharmacist2, [facility] [address] [place] [address] 01/05/2024 11:30 AM EST Pharmacy Pharmacy, [facility] [address] [facility] [place] [address] Pharmacist2, [facility] [address] [facility] [place] [address] 01/15/2024 1:30 PM EST Office Visit Oral Maxillofacial Surgery, [address] [address] Jay Lozano DDS, MD [address] [place] [address] 03/05/2024 3:40 PM EST Office Visit Family Practice [facility] [address] [place] [address] Jonny Donaldson MD [address] [facility] [place] [address] 05/29/2024 11:00 AM EDT Appointment Vascular Lab [address] [address] 05/29/2024 11:30 AM EDT Appointment Vascular Lab [facility], [address] [address] 05/29/2024 12:00 PM EDT Office Visit Vascular Surg [address] [address] Willian Rosas MD [address] [place] [address] 09/17/2024 10:00 AM EDT Imaging Radiology [address] [place] [address] Health Maintenance Due Date Last Done Comments [...] this encounter Medical Devices Implanted Type Area Dulser Device Identifier Shelf Expiration Date Model / Serial / Lot Greater Than 80cm, 3mm-8mm Flora, Angiograft Pvd Saphenous Veins, Cryopreserved Implanted:Qty: 1 on 01/19/2023 by Willian Rosas MD at OR [facility] Right: Leg Upper L[employer] 07/29/2026 CV>80 / [id number] / [id number] documented as of this encounter Advance [...] Advance Directives occurred with: Patient Care Teams Aluminum Can Collector Relationship Specialty Start Date End Date Jonny Donaldson MD [address] [place] [address] PCP - General Family Medicine 05/27/14 documented as of this encounter
--- OUTSIDE RECORDS SUMMARY | 2024-04-26 14:49 | External Medical Summary | Summary of Care ---
Author Name Unknown Organization [facility] Address [address] [place] [address] Phone [phone] Care Team Providers Care Broke Worker Name Role Phone Jonny Donaldson MD Primary Care Provider + Reason for Visit * Reason Onset Date Comments Follow Up Medication Administration 11/27/2023 Flu an d/or Pneumo Inj Encounter Details Date Type Department Care Team (Latest Contact Info) Description 11/27/2023 12:20 PM EDT Office Visit Vascular Surg [facility] [address], [place] [id number] Willian Rosas MD [address], [place] [id number] PVD (peripheral vascular disease) ([facility])*; Need for prophylactic vaccination and inoculation against influenza; Asymptomatic stenosis of right carotid artery; Type 2 diabetes mellitus with diabetic nephropathy, with long-term current use of insulin ([facility]); Coronary artery disease involving [place] coronary artery of [place] heart without angina pectoris; Type 2 diabetes mellitus with hemoglobin A1c goal of less than 8.0% ([facility]); Heart failure, systolic, due to CAD ([facility]); COPD, group A, by GOLD 2017 classification ([facility]); Chronic low back pain without sciatica, unspecified back pain laterality; Tobacco use disorder; S/P CABG x 3; Dyslipidemia, goal LDL below 100; HTN, goal below 130/80 Allergies Active Allergy Reactions Criticality Noted Date Comments Cephalexin 01/28/1996 rash Doxepin 02/01/2018 Dust 04/04/2001 Nickel Anaphylaxis High 04/04/2001 Paroxetine 04/28/2003 generic only, brand ok Penicillins 03/03/1995 Rash Sulfa Antibiotics 11/27/1994 Rash documented as of this encounter (statuses as of 11/27/2023) Medications Medication Sig Dispensed Refills Start Date End Date Status ASPIRIN EC 81 MG PO TBECIndications:Typ e II or unspecified type diabetes mellitus with renal manifestations, uncontrolled(250.42 ) ([facility]) Take one pill daily [...] as of this encounter (statuses as of 11/27/2023) Active Problems Problem Noted Date Diagnosed Date [...] RCA [facility] [facility]. History of nonmelanoma skin cancer 05/25/2022 [...] 11/23/2011 Overview: 04/20/12 AV Ablation-Dr Jeffrey Campos, [facility] Episode June 2011 around 03/12/12 [place] [facility]-[id number] SVT--sched for [place] EP study Routine general medical exam ination at a health care facility 11/11/2011 Overview: Cards--Dr Jeffrey Jalloh. 03/03/23 TTE [facility] normal EF, moderate LVH. Mild hypokinesis of apical septum. 01/18 Carotid [place] stable 50-69 on left. 10/18 colonoscopy [facility] 3 3-[address] poly[address] colon-polypoid mucosa mild hyperplastic changes. Rectal polyp= hyperplastic polyp. Dr Juan Mak [facility] (11/19 06/14 Cologuard WNL. Cardiology-Jeffrey Jalloh. [...] PFT evidence of COPD ) 05/10 TTE @[place] [id number] EF, mild LVH, Gr1 Feldman Dys 07/09 colonoscopy [facility] [place]-3 & 6mm polyp--PAth--Tubular adenoma 07/09 [place] TSH & celiac testing WNL 04/11 ER [...] as of this encounter (statuses as of 11/27/2023) Resolved Problems Problem Noted Date Diagnosed Date [...] as of this encounter (statuses as of 11/27/2023) Immunizations Name Administration Dates Next Due COVID-19 mRNA, LNP-s, No Pre serve, 2-Dose Series ([employer]) 01/24/2021,01/04/2021,06/03/2020 Hepatitis B, 20+ yrs 08/27/2009,03/30/2009,02/27 Pneumococcal Conjugate Vacc, 13 Valent (Prevnar) 01/28/2022 Pneumococcal Polysaccharide PPV23 (Pneumovax) 10/20/2020 Seasonal Influenza, High Dos e, Trivalent, PF, IM (Fluzone HD) 11/27/2023 Seasonal Influenza, PF, 6 M & above, IM , (FluLaval or Fluzone) 11/27/2019,11/01/2018,12/15/2017,10/29 Seasonal Influenza, Quadriva lent Hd (Fluzone Hd) 12/16/2022,12/09/2021,11/10/2020 Seasonal Influenza, Quadriva lent, No Preserve, IM 11/16/2015 Seasonal Influenza, Trivalen t, (IIV3), with Preserv, (Fluzone) 10/29/2014,01/02/2014,11/26/2012,01/27,12/26/2010,12/21/2009,12/03/19 09,12/30/2005 TDAP (age 10 and older)(Boostrix) 04/27/2018 TDAP, Age 7 and older, IM (Adacel) 08/28/2008 Varicella Zoster Vaccine (Adult) 08/06/2015 Zoster Vaccine Recombinant (Shingrix) 08/21/2019 ,05/09/2019 07/18/2019 documented as of this encounter Social History Tobacco Use Types Packs/Day Years Used Date Smoking Tobacco: Former Cigarettes 0.9 40 1 - 12/08/2021 Smokeless Tobacco: Never Tobacco Cessation:Counseling Given: [...] Sign Reading Time Taken Comments Blood Pressure 118/68 11/27/2023 12:24 PM EDT Pulse 70 11/27/2023 12:24 PM EDT Temperature 36.2 C (97.1 F) 11/27/2023 12:24 PM E DT Respiratory Rate - - Oxygen Saturation - - Inhaled Oxygen Concentration - - Weight 118.2 kg (260 lb 8 oz) 11/27/2023 12:24 P M EDT Height - - Body Mass Index 37.38 10/05/2023 2:22 PM EDT documented in this encounter Functional Status Functional [...] No 01/19/2023 documented as of this encounter Patient Instructions * Patient Instructions* Lisa Alvarenga LPN - 11/27/2023 12:30 PM EDT ~~PATIENT INSTRUCTIONS FOR FLU SHOT~~ Possible side effects of influenza vaccine, (flu shot), are usually mild and include: 1. Soreness or redness at injection site 2. Low grade fever 3. Body aches You may use Tylenol/Acetaminophen as needed for these symptoms. LET YOUR DOCTOR KNOW IMMEDIATELY IF YOU HAVE DIFFICULTY BREATHING OR SWALLOWING, EXPERIENCE ITCHINGOF FEET OR HANDS, HAVE SWELLING OF EYES, FACE OR INSIDE OF NOSE. documented in this encounter Progress Notes * Timo Bradley CRNP - 11/27/2023 12:34 PM EDT Images from the original note were not included. Date of Service: 11/27/2023 12:34 PM Mariia Liao is a 68 year old female. Referring Physician: Jonny Donaldson MD Podiatry: Dr. Jonny Germain. Cardiology: Dr. Jeffrey Campos Chief Complaint: Mrs. Liao returns to clinic for routine wound check to right great toe in setting of known occluded RLE BPG. Also followed for carotid disease. She reports interval healing of right medial great toe ulceration under the care of Dr. Germain in [place], [place]. Ambulation somewhat limited at this time with cane due to lower back and left hip pain which she attributes to half-way use of darco shoe which she is no longer wearing. Accompanied by spouse. HPI: Reformed smoker with DM, HTN, dyslipidemia, CAD, CHF, and NICKEL allergy PERIPHERAL VASCULAR DISEASE: Presented to [facility] ER with non-healing ulcer of right great toe, progressive pain in RLE & SSTI on 01/19/2023. Transferred to [facility], via [facility]. S/P RCFA => BK Pop Art BPG w/ cryopreserved vein, R DFA endarterectomy (beyond site of prox anastomosis), and REIA angioplasty 01/19/[address] Rosas. GSV was harvested for prior CABG and PTFE graft was not used due to active R foot infection. Cryovein was the only option available. Discharged 01/22/23, on Doxy and Cefuroxime, with stop date 02/02/2023, as well as Xarelto 2.5 mg BID Called in on 02/22/23 with new concerns of red, raised bump along right medial calf surgical incision as well as R foot pain and numbness/tingling, somewhat improves with hanging foot down. Offered clinic appt, but couldn't come until 02/24/2023 RLE Bypass found to be occluded, 02/24/2023. Admitted to [facility] with concerns with sepsis on 03/02/2023 and treated with antibiotics and fluids. Blood culture grew Morganella. Was switched to Cipro and discharged to home. Appears that we were contacted for transfer/admission from [facility] but it was cancelled. She was scheduled for a right leg angiogram 03/03/23 but this was cancelled as well CAROTID/SUBCLAVIAN/VERTEBRAL/INNOMINATE DISEASE: S/P R CEA 05/02/2022 @ [facility] Patient denies recent TIA, recent stroke and recent amaurosis fugax. 07/17/2023: carotid duplex at [facility] demonstrates abnormal RENNY waveforms - but CEA site appears to be patent, LICA 50-69% stenosis, R vertebral artery retrograde flow with suspected R SCA disease,L vertebral artery antegrade flow, R innominate occlusion. Current Outpatient Medications Medication Sig Dispense Refill ASPIRIN EC 81 MG PO TBEC Take one pill daily 100 Tab 3 fluticasone (FLONASE) 50 MCG/ACT nasal spray Administer 2 Sprays into each nostril 2 times a day. 18.2 mL 5 BD Pen Needle Tanja U/F 32G X [...] 1 Capsule by mouth in the morning. Atorvastatin Calcium 80 MG Oral Tablet (Lipitor) TAKE ONE TABLET BY MOUTH EVERY DAY 90 Tablet 3 AZO Cranberry 250-30 MG Oral Tablet Take by mouth daily. Probiotic Acidophilus Oral Tablet Chewable Take by mouth daily. Mupirocin 2 % External Ointment (Bactroban) Rivaroxaban 2.5 MG Oral Tablet (Xarelto) Take 1 Tablet by mouth in the morning and 1 Tablet before bedtime. 60 Tablet 11 CoQ-10 100 MG Oral Capsule Take by mouth. Empagliflozin 10 MG Oral Tablet (Jardiance) Take 1 Tablet by mouth in the morning. In the morning..90 Tablet 3 metFORMIN HCl 850 MG Oral Tablet (Glucophage) TAKE ONE TABLET BY MOUTH THREE TIMES DAILY WITH MEALSFOR FOR DIABETES 270 Tablet 1 Gabapentin 600 MG Oral Tablet (Neurontin) Take 1 Tablet by mouth in the morning and 1 Tablet at noon and 1 Tablet before bedtime. 90 Tablet 5 Amitriptyline HCl 50 MG Oral Tablet (Elavil) TAKE ONE TABLET BY MOUTH EVERY DAY 90 Tablet 3 Sertraline HCl 50 MG Oral Tablet (Zoloft) TAKE TWO TABLETS BY MOUTH EVERY MORNING 180 Tablet 3 Semaglutide (2 MG/DOSE) 8 MG/3ML Subcutaneous Solution Pen-injector (Ozempic) Inject 2 mg under theskin once a week. 9 mL 3 Insulin Glargine Solostar 100 UNIT/ML Subcutaneous Solution Pen-injector (Basaglar KwikPen) Inject 35 Units under the skin in the morning and 35 Units before bedtime. 75 mL 3 LORazepam 0.5 MG Oral Tablet (Ativan) Take 1 Tablet by mouth every 8 hours as needed for Anxiety orInsomnia. 40 Tablet 0 NATURAL SUPPLEMENT Take by mouth daily. Balance of nature fruits and veggie capsules traMADol HCl 50 MG Oral Tablet (Ultram) Take 1-2 Tablets by mouth every 6 hours as needed (pain). 60 Tablet 0 Fiasp FlexTouch 100 UNIT/ML Subcutaneous Solution Pen-injector (Insulin Aspart (w/Niacinamide)) Inject 26 with breakfast, 14 units with lunch, 20 units with dinner 60 mL 3 Ketoconazole 2 % External Cream Apply topically to affected area 2 times a day. Apply to left armpit until rash improved. 30 g 1 rOPINIRole HCl 0.5 MG Oral Tablet (Requip) TAKE ONE TABLET BY MOUTH AT BEDTIME and before naps 180 Tablet 3 Ezetimibe 10 MG Oral Tablet (Zetia) Take 1 Tablet by mouth in the morning. 90 Tablet 3 Estradiol 0.1 MG/GM Vaginal Cream (Estrace) Apply pea sized amount (0.5 gm) vaginally twice a week at bedtime (Patient not taking: Reported on 11/27/2023) 42.5 g 3 Chlorhexidine Gluconate 4 % External Solution (Hibiclens) Apply to legs during shower twice a week (Patient not taking: Reported on 11/27/2023) 236 mL 1 No current facility-administered medications for this visit. Review of patient's allergies indicates: Allergen Reactions Nickel Anaphylaxis Cephalexin rash Doxepin Dust Paroxetine generic only, brand ok Penicillins Rash Sulfa Antibiotics Rash Patient Active Problem List Diagnosis DYSFUNCT EUSTACHIAN TUBE POST-NASAL DRIP NONALLERGIC RHINITIS Chronic sinusitis GENERALIZED ANXIETY DIS INFORMATION Heartburn LUMBAGO Solitary cyst of breast ADVANCE DIRECTIVE INFORMATION Tobacco use disorder Dyslipidemia, goal LDL below 100 Type 2 diabetes mellitus with diabetic nephropathy ([facility]) HTN, goal below 130/80 Routine general medical examination at a health care facility SVT (supraventricular tachycardia) ([facility]) Type 2 diabetes mellitus with hemoglobin A1c goal of less than 8.0% ([facility]) DM type 2 causing neurological disease ([facility]) CAD (coronary artery disease) Heart failure, systolic, due to CAD ([facility]) S/P drug eluting coronary stent placement Inguinal hernia, right Diabetic retinopathy, nonproliferative, moderate ([facility]) Sensorineural hearing loss (SNHL) of both ears Diabetic macular edema of both eyes ([facility]) Type 2 diabetes mellitus with diabetic nephropathy, with long-term current use of insulin ([facility]) Carpal tunnel syndrome on right PAD (peripheral artery disease) ([facility]) Other emphysema ([facility]) Carotid artery stenosis without cerebral infarction, left History of 2019 novel coronavirus disease (COVID-19) History of nonmelanoma skin cancer S/P CABG x 3 History of completed stroke Urge incontinence of urine COPD, group A, by GOLD 2017 classification ([facility]) Acute lower limb ischemia Diabetic foot infection ([facility]) Morbid (severe) obesity due to excess calories ([facility]) Bilateral carotid artery stenosis Past Medical History: Diagnosis Date Allergic rhinitis Background diabetic retinopathy(362.01) 05/27/201405/[address] Montez Q6mo monitoring Benign neoplasm of colon 07/30/2010 polyps x 2--adenomatous tissue--repeat in 3 yrs , diverticulosis & fair prep-- CAD (coronary artery disease) 06/27/2013 06/24/13 +CP-abnormal stress->cath @[facility]. 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 85% Circ (stented RACHAEL), LAD 20%. EF shows inferior hypokinesis EF 45% Carotid artery stenosis without cerebral infarction, left 12/30/2020 Chronic sinusitis 06/07/2001 Diabetic macular edema of both eyes ([facility]) 01/14/2019 DM type 2, goal A1C 7-8 DM type 2, goal A1c below 7 1998 Dyslipidemia, goal to be determined Generalized anxiety disorder Heart failure, systolic, due to CAD ([facility]) 06/27/2013 Heartburn History of 2019 novel coronavirus disease (COVID-19) 08/10/202108/18 History of completed stroke 04/27/2022 Complication of CABG. Left sided weakness. HTN, goal below 140/90 INFORMATION seasonal affective disorder Inguinal hernia, right 06/27/2013 Fat containing Lumbago Moderate nonproliferative diabetic retinopathy of right eye with macular edema associated with type2 diabetes mellitus ([facility]) 05/31/2021 Open wound of trunk 05/2008 s/p LAURIE Pneumonia, organism unspecified(486) 11/1992 Proliferative diabetic retinopathy of left eye without macular edema associated with type 2 diabetes mellitus ([facility]) 05/31/2021 S/P CABG x 3 06/01/2022 S/P drug eluting coronary stent placement 06/27/2013 Sensorineural hearing loss (SNHL) of both ears 02/21/2017 Solitary cyst of breast 1992 Past Surgical History: Procedure Laterality Date ABLATE HEART DYSRHYTHM FOCUS 04/20/2012 AV Ablation-Dr Jeffrey Campos, [facility] BREAST LESION,OTHER,EXCISION Left benign BYPASS GRFT OTHER-CAROTID Right 05/02/[address] Oshea [facility] CARDIAC CATH SCANNED RESULT 06/24/2013 +Circ stent RACHAEL. CARPAL TUNNEL SURGERY 08/1992 Carpal Tunnel repair CARPAL TUNNEL SURGERY Left 12/11/2019 NEUROPLASTY MEDIAN NERVE AT CARPAL TUNNEL performed by Pankaj Osorio MD at OR [facility] COLONOSCOPY W/ LESION REMOVAL, SNARE 07/30/2010 polyps x 2--adenomatous tissue--repeat in 3 yrs , diverticulosis & fair prep-- COLONOSCOPY, DIAGNOSTIC (RECTUM) 10/02/2015 adenomatous polyps, diverticulosis, poor prep, repeat 1 yr/[facility] ENDART DEEP FEMORAL Right 01/19/2023 DEEP FEMORAL ENDARTERECTOMY performed by Willian Rosas MD at OR [facility] EXPLORATION OF MAXILLARY SINUS 06/07/2001 Sinus Surgery HYSTEROSCOPY W/BIOPSY AND/OR POLYPECTOMY W/WO D&C 02/14/2006 INFORMATION ablation INSERT NEEDLE/CATHETER, EXTREMITY ARTERY Right 06/09/2023 CATHETER INTRODUCTION, EXTREMITY ARTERY performed by Willian Rosas MD at OR [facility] INTRODUCTION OF CATHETER, AORTA 01/19/2023 CATHETER PLACEMENT, AORTA performed by Willian Rosas MD at OR [facility] IR ARTERIOGRAM EXTREMITY UNILATERAL Right 06/09/2023 IMAGING SUPERVISION & INTERPRETATION EXTREMITY UNILATERAL [facility] LAP;OCCULSION OVIDUCTS/DEVICE 1985 LIGATE/CUT OVIDUCT(S) tubal ligation -rings ND CORONARY ARTERY BYP W/VEIN & ARTERY GRAFT 3 VEIN 04/27/2022 KUMAR to LAD, SVG to PL of LCx and PDA of the RCA 04/27/[address] Whyte [facility]. PULMONARY FUNCTION TEST SCREEN 10/09/2001 normal REMOVE GALLBLADDER 04/1993 Cholecystectomy REPAIR OF NASAL SEPTUM 06/07/2001 Nasal Septum Repair SUBQ DEBRIDEMENT, FIRST 20 CM2 Right 06/09/2023 DEBRIDEMENT SKIN AND SUBCUTANEOUS TISSUE performed by Willian Rosas MD at OR [facility] SURGICAL PROCEDURE ONLY Left 08/24/2023 Remove a cyst on left chest wall by Dr. Darnell Curiel. SYNTH BYPASS, FEMORAL-POP Right 01/19/2023 BYPASS GRAFT OTHER THAN VEIN FEMORAL POPLITEAL performed by Willian Rosas MD at OR [facility] TOTAL ABD HYSTERECTOMY W/WO REMOVAL OF TUBE(S) 06/23/2008 & oopherectomy VAGINAL DELIVERY ONLY VENOGRAM EXTREMITY UNI-FLUOR Right 01/19/2023 IMAGING SUPERVISION & INTERPRETATION EXTREMITY VEIN performed by Willian Rosas MD at [facility] Family History Problem Relation Name Age of [...] Occupational History Occupation: retired. Employer: [id number] Comment: [employer] [place] [facility] Tobacco Use Smoking status: Former Current packs/day: 0.00 Average packs/day: 0.9 packs/day for 40.0 years (36.0 ttl pk-yrs) Types: Cigarettes Start date: 12/08/1981 Quit date: 12/08/2021 Years since quittin.9 Smokeless tobacco: Never Tobacco comments: 10/04/2019 smokes 15 cigarettes per day on booklet and patches Vaping Use Vaping status: Never Used Substance and Sexual Activity Alcohol use: Yes Comment: very rare Drug use: No Sexual activity: Yes Partners: Male control/protection: Surgical Comment: tubal. [id number] 1 daughter 28Y Other Topics Concern Service [...] Stability Do you currently live in a fpc or have no steady place to sleep [...] - for ages0-17 years): Not on file Vaping/E-Cigarette Use Vaping/E-Cigarette Use Never User Vaping/E-Cigarette Substances Vaping/E-Cigarette Devices REVIEW OF SYSTEMS: Constitutional: Denies fever/chills Eyes: Denies amaurosis fugax. Cardiovascular: Denies chest pain, denies AK, reports CHF, reports CAD s/p PCI in 2013. Respiratory: Denies shortness of breath, reports PINEDA, former smoker GI: Denies BRBPR : Denies hematuria Musculoskeletal: Reports arthritis, reports chronic low back pain. Skin: Reports h/o R great toe ulcer Neurological: Denies TIA, denies CVA Psychiatric: Reports anxiety. Endocrine: Reports NIDDM, reports hyperlipidemia. GENERAL MULTI-SYSTEM PHYSICAL EXAM: VITAL SIGNS: BP 118/68 (BP Site: Right Arm, BP Position: Sitting, BP Cuff Size: Regular) | Pulse 70 | Temp 36.2 C (97.1 F) (Temporal Artery) | Wt 118.2 kg (260 lb 8 oz) | LMP 03/13/2008 | BMI 37.38 kg/m | BSA 2.42 m GENERAL MULTI-SYSTEM PHYSICAL EXAM: GENERAL: Normal grooming habits, no acute distress and appears stated age. NECK: No masses. R CEA scar RESPIRATORY: Respiratory effort normal CARDIOVASCULAR: RRR, mild BLE edema PSYCHIATRIC:Orientation to time, place and person normal and recent and remote memory normal. EYES: conjunctivae normal. NEUROLOGIC: Motor function grossly intact SKIN: Feet with no active ulcerations or dependent rubor. Dry sca to right medial great toe. SEE PHOTO. Left medial great toe with callus. SEE PHOTO. RIGHT GREAT TOE: LEFT GREAT TOE: PULSE SCALE: Carotid Right:----Bruit: No Left:----Bruit: Yes Radial Right: 2 Left: 3 Femoral Right: 0 Left: 0 Popliteal Right: 0 Left: 0 Dorsalis Pedis Right: 0 Left: 0 Posterior Tibial Right: 0 Left: 0 PULSE SCALE: 4=Aneurysmal; 3=Normal; 2=Diminished; 1=Barely Palpable; 0=Absent DIAGNOSTIC STUDIES: 07/17/23: carotid duplex: RENNY 98/54, R SCA 45/47, R vert retro, R innom no flow, R axill a 19, R brach a 35, LICA 212/41, L vert ante 03/01/23: BUE vein mapping: R ceph 3.9/4.3/4.2/3.5, [...] stent 143/210/207/244, RCFA 187, RDFA 142, R HYDRAULIC MINER BLASTING - pop bpg occluded, R prox calf area of interest 1.86 cm x 2.02 cm, R prox calf dist anast [place] runoff 54 12/23/22 RANJITH: 0.48/0.65, monophasic toe PPGs 10/18/19 [...] both verts antegrade 11/2017 CT abd/pelv: moderate sobmq-vdoad-vumiuur disease bilaterally LABS: Creatinine Results: Lab Results Component Value Date/Time CREATININE - [facility] 1.08 08/04/2023 11:21 AM CREATININE - [facility] 1.0 07/05/2023 11:41 AM CREATININE - [facility] 0.9 06/26/2023 02:40 PM CREATININE - [facility] 0.9 06/05/2023 01:49 PM CREATININE - [facility] 0.9 11/21/2019 08:37 AM CREATININE - [facility] 0.9 10/07/2019 10:02 AM CREATININE - [facility] 0.77 08/15/2019 12:00 AM CREATININE - [facility] 0.74 06/14/2018 12:00 AM CREATININE - [facility] 0.68 12/12/2017 12:00 AM CREATININE - [facility] 0.6 06/13/2013 01:11 PM CREATININE, RANDOM URINE - [facility] 22 12/05/2022 02:23 PM CREATININE, RANDOM URINE - [facility] 69 06/25/2021 07:35 AM CREATININE, RANDOM URINE - [facility] 94 07/30/2020 09:08 AM CREATININE, RANDOM URINE - [facility] 38 11/21/2019 08:37 AM CREATININE, RANDOM URINE - [facility] 46 04/16/2014 09:00 AM CREATININE, RANDOM URINE - [facility] 61 11/05/2009 09:28 AM Lab Results Component Value Date/Time LDL (CALCULATED)-OUTSIDE LAB 85 08/15/2019 12:00 AM LDL (DIRECT MEASURE)-OUTSIDE LAB 83 06/23/2017 12:00 AM LDL CHOLESTEROL (CALCULATED) - [facility] 64 06/24/2016 12:00 AM LDL CHOLESTEROL (DIRECT MEASURE) - [facility] 86 12/05/2022 02:21 PM LDL CHOLESTEROL (DIRECT MEASURE) - [facility] 222 (H) 11/28/2008 08:56 AM Hemoglobin Results: Lab Results Component Value Date/Time HGB 13.4 06/26/2023 02:40 PM HGB 12.9 06/05/2023 01:49 PM HGB 10.2 (L) 01/21/2023 06:49 AM HGB 13.9 10/10/2017 12:00 AM HGB 15.5 (H) 11/01/2012 10:00 AM HGB 15.4 (H) 06/15/2012 02:07 PM HGB 14.5 08/26/2009 12:08 PM Hemoglobin AIC Results: Lab Results Component Value Date/Time HEMOGLOBIN A1C - [facility] 9.1 (H) 07/05/2023 11:41 AM HEMOGLOBIN A1C - [facility] 11.7 (H) 12/05/2022 02:21 PM HEMOGLOBIN A1C - [facility] 7.8 (H) 10/29/2021 08:01 AM HEMOGLOBIN A1C - [facility] 8.5 (H) 11/21/2019 08:37 AM HEMOGLOBIN A1C - [facility] 9.6 (H) 08/03/2015 10:06 AM HEMOGLOBIN A1C - [facility] 12.8 (H) 11/11/2011 03:30 PM HEMOGLOBIN A1C POCT - [facility] 7.9 (H) 10/13/2023 10:20 AM HEMOGLOBIN A1C POCT - [facility] 11.4 (H) 04/05/2023 10:47 AM The above clinical lab tests were reviewed by me on 11/27/2023. IMPRESSIONS: S/P R CEA 05/02/22 @ [facility]. Asymptomatic LICA 50-69% stenosis, per 07/17/2023 duplex R vertebral retrograde flow with innominate/R SCA occlusive disease. PAD currently with no rest pain or active ulcerations. S/P RCFA => BK Pop BPG w/ cryopreserved vein, R DFA endarterectomy (beyond site of prox anastomosis), and REIA angioplasty 01/19/[address] Rosas. (OCCLUDED) CAD, H/O PCI, s/p CABG x 3, 04/27/22 @ [facility], followed by Dr. Jeffrey Campos (Cardiology) CHF. HTN, stable Dyslipidemia, on statin Reformed smoker. COPD. DM. BMI 37.38. Anemia. Anaphylactic nickel allergy PLAN: The patient was counseled regarding the pathophysiology & natural history of carotid disease, as well as the symptoms of CVA/TIA/amaurosis fugax. Continue medical management and routine surveillance. The patient was counseled regarding the pathophysiology and natural history of peripheral vascular disease, as well as the interventional and noninterventional therapeutic options. Her revascularization options are limited, especially with her anaphylactic allergy to nickel. She is at very high risk for limb loss and/or major amputation, which has been discussed previously Right great toe ulcer has essentially healed at this point. Currently with callusing noted to bilateral medial great toes. Recommend continued routine foot care with local pararescue craftsman. Encouraged routine moisturizing and use of protective footwear at all times. Continue medical management and routine surveillance. Continue ASA 81 mg daily for platelet inhibition. On Xarelto 2.5 mg BID for PAD Continue Lipitor 80 mg for dyslipidemia and pleiotropic effects. All BP's using L arm for accuracy given R SCA/innominate artery disease F/U in 6 months with RANJITH/great toe PPGs & carotid duplex, or sooner prn. The patient was seen and examined with Willian Rosas MD. Yue Britton, MATHEW Section of Vascular [place] [address] [phone] I have reviewed the advanced practitioner's documentation on the date of service referenced in note, and I agree with, and take responsibility for the plan of care. 68 year old female who underwent emergent RLE revasc in late Dec 2022 with R femoral endarterectomy, R EIA OCCUPATIONAL THERAPY ASSIST, and R HYDRAULIC MINER BLASTING to BK pop bypass using cryopreserved conduit. She was seen in clinic in late Jan 2023 when I was out of the office with return of rest pain and her bypass was found to be newly o ccluded on noninvasive testing. She states that her rest pain returned several days prior to her clinic appointment. At that time she was sent home from the clinic with antibiotics for her right leg wound which appeared infected. She returned for further evaluation and an angiogram was planned to evaluate any revascularization options in the right lower extremity, which are assumed to be limited based on the extent of her disease and her anaphylactic nickel allergy. Unfortunately, she developedsepsis and bacteremia which required admission to the hospital at [facility]. This led to cancellation ofher planned angiogram in early Feb 2023. We discussed previously that it is extremely unlikely to be successful in reopening her bypass withan endovascular procedure at this point. We discussed the possibility of a spliced arm vein bypass,but I am not sure she is going to have enough length to reach the distal target vessel, and she is concerned about the morbidity of arm vein harvest. Diagnostic angiogram and right first toe debridement was performed on 06/09/23. Her toe wound has healed at this point. Her revascularization options are limited, especially with her anaphylactic allergy to nickel. She is at very high risk for limb loss and/or major amputation, which we have discussed multiple times. She also follows with a pararescue craftsman in [place], and should continue to do so. 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 She remembers being told this in the past by her chemical inspector. This is asymptomatic. Sheshould check her blood pressure in the left arm. She has moderate (50-69%) stenosis of the left carotid artery that is asymptomatic. Is difficult to ascertain the degree of stenosis for the right carotid due to significant inflow disease, but it appears to be patent. She previously underwent carotid endarterectomy at an outside facility on the right side. We will plan for follow up in the vascular surgery clinic in 6 months to assess her progress, with noninvasive testing performed prior to the appointment. Willian Rosas MD Associate Vascular Surgeon Division of Vascular and Endovascular Surgery [facility] * Lisa Alvarenga LPN - 11/27/2023 12:30 PM EDT PRE - ADMINISTRATION DOCUMENTATION Are you experiencing any cold symptoms or fever? No Have you had Guillain-[place]ville Syndrome (an illness that causes paralysis) within the last 6 weeks? No Have you had the flu shot in the past? YES Have you ever had a reaction to the flu shot? No Lisa Alvarenga LPN, 11/27/2023 12:30 PM Immunization Administration Documentation Time Out Procedure Performed: Yes Patient Identified (Ask Name/Date of ): Yes Does the patient have a fever greater than 101 degrees today? No Patient allergic to latex? No VFC Stock: No Immunization(s) verified: Yes, Immunization Name: Flu, VIS Sheet(s) given: Yes Verified Side and Site: Yes Verified Shot(s) with Parent(s)/Patient: Yes documented in this encounter Nursing Notes * Lisa Alvarenga LPN - 11/27/2023 12:29 PM EDT Patient was instructed to not get up on the exam table/exam chair until directed and assisted by their provider; patient is to remain seated in the chair/ wheelchair/ exam table/ exam chair for fall prevention and safety reasons. Patient is aware to have assistance to step down off exam table/exam chair with personnel. Patient voiced full comprehension of instructions. Reviewed the option of transferring scripts to [facility] pharmacy with patient and / or family. Lisa Alvarenga LPN documented in this encounter Plan of Treatment Upcoming Encounters Date Type Department Care Team (Late st Contact Info) Description 01/05/2024 11:00 AM EST Office Visit Pharmacy, [facility] [address] [facility] [place] [address] Pharmacist2, [facility] [address] [facility] [place] [address] 01/05/2024 11:30 AM EST Pharmacy Pharmacy, [facility] [address] [facility] [place] [address] Pharmacist2, [facility] [address] [facility] [place] [address] 03/05/2024 3:40 PM EST Office Visit Family Practice [facility] [address] [address] Jonny Donaldson MD [address] [place] [address] 05/29/2024 11:00 AM EDT Appointment Vascular Lab [address] [id number] 05/29/2024 11:30 AM EDT Appointment Vascular Lab [place] [address] [place] [address] 05/29/2024 12:00 PM EDT Office Visit Vascular Surg [place] [address] [place] [address] Willian Rosas MD [address] [place] [address] 09/17/2024 10:00 AM EDT Imaging Radiology [address] [place] [address] Scheduled Orders Name Type Priority Associated Diagnoses Orde r Schedule VASC ANKLE BRACHIAL INDICES WITHOUT PPG (PAD) Medical Imaging Routine PVD (peripheral vascular disease) (HCC) Ordered: 11/27/2023 VAS DUPLEX CAROTID BILAT Medical Imaging Routine Asymptomatic stenosis of right carotid artery Ordered: 11/27/2023 Health Maintenance Due Date Last Done Comments [...] 07/05/2023, Additional history exists Mammogram 09/12/2024 09/13/2023, 0 07/2021, 11/02/2021, Additional history exists DTap/Tdap Vaccines [...] this encounter Medical Devices Implanted Type Area Library Monitor Device Identifier Shelf Expiration Date Model / Serial / Lot Greater Than 80cm, 3mm-8mm Flora, Angiograft Pvd Saphenous Veins, Cryopreserved Implanted:Qty: 1 on 01/19/2023 by Willian Rosas MD at [facility] Right: Leg Upper LIFENET 07/29/2026 CV>80 / [id number] / [id number] documented as of this encounter Visit Diagnoses Diagnosis PVD (peripheral vascular disease) (HCC)- Primary Peripheral vascular disease, unspecified Need for prophylactic vaccination and inoculation against influenza Asymptomatic stenosis of right carotid artery Type 2 diabetes mellitus with diabetic nephropathy, with long-term current use of insulin (HCC) Coronary artery disease involving [place] coronary artery of [place] heart without angina pectoris Type 2 diabetes mellitus with hemoglobin A1c goal of less than 8.0% ([facility]) Heart failure, systolic, due to CAD ([facility]) Unspecified systolic heart failure COPD, group A, by GOLD 2017 classification ([facility]) Chronic low back pain without sciatica, unspecified back pain laterality Tobacco use disorder S/P CABG x 3 Postsurgical aortocoronary bypass status Dyslipidemia, goal LDL below 100 Other and unspecified hyperlipidemia HTN, goal below 130/80 Unspecified essential hypertension Screening mammogram for breast cancer documented in [...] Advance Directives occurred with: Patient Care Teams Broke Worker Relationship Specialty Start Date End Date Jonny Donaldson MD [address] [facility] [place] [address] PCP - General Family Medicine 05/27/14 documented as of this encounter"
--- OUTSIDE RECORDS SUMMARY | 2024-04-26 14:49 | External Medical Summary | Summary of Care ---
Author Name Unknown Organization [facility] Address [address] [place] [address] Phone [phone] Care Team Providers Care Physician Intensivist Name Role Phone Jonny Donaldson MD Primary Care Provider + Reason for Visit * Reason Comments Evaluation * Evaluate & Treat - Unlimited Visits (Within 3 days (urgent)) - Authorized Specialty Diagnoses / Procedures Referred By Joy fortune Referred To Contact Oral/Maxillofacial Surgery / Oral Maxillary Surgery Diagnoses Oral lesion Jonny Donaldson MD [address] [place] [address] Referral ID Status Reason Start Date Expiration Date Visits Requested Visits Authorized [id number] Authorized Specialty Services Required 12/01/2023 [id number] Encounter Details Date Type Department Care Team (Latest Contact Info) Description 12/08/2023 2:30 PM EDT Office Visit Oral Maxillofacial Surgery, [place] [address] [place] [address] Jay Lozano DDS, MD [address] [place], [place] [id number] Oral mucosal lesion* Allergies Active Allergy Reactions Criticality Noted Date Comments Cephalexin 01/28/1996 rash Doxepin 02/01/2018 Dust 04/04/2001 Nickel Anaphylaxis High 04/04/2001 Paroxetine 04/28/2003 generic only, brand ok Penicillins 03/03/1995 Rash Sulfa Antibiotics 11/27/1994 Rash documented as of this encounter (statuses as of 12/08/2023) Medications Medication Sig Dispensed Refills Start Date End Date Status ASPIRIN EC 81 MG PO TBECIndications:Typ e II or unspecified type diabetes mellitus with renal manifestations, uncontrolled(250.42 ) ([facility]) Take one pill daily 100 Tab 3 01/28/2014 Active fluticasone (FLONASE) 50 MCG/ACT nasal spray Administer 2 Sprays into each nostril 2 times a day. 18.2 mL 5 10/14/2019 Active BD Pen Needle Tanja U/F 32G X 4 MM (Insulin Pen Needle)Indications: Type 2 diabetes mellitus with hemoglobin A1c goal of less than 8.0% ([facility]) USE TO INJECT INSULIN 2-3 times [...] as of this encounter (statuses as of 12/08/2023) Active Problems Problem Noted Date Diagnosed Date Bilateral carotid artery stenosis 07/17/2023 Morbid (severe) obesity due to excess calories 1 04/04/2022 Acute lower limb ischemia 01/19/2023 Diabetic foot infection 01/19/2023 COPD, group A, by GOLD 2017 classification 01/09 Overview: Per COPD GOLD Classification Urge incontinence of urine 11/28/2022 S/P CABG x 3 06/01/2022 Overview: KUAMR to LAD, SVG to PL of LCx [...] Overview: 06/24/13 +CP-abnormal stress->cath @[facility]. 100% occlusion RCA with left- right [...] Overview: 04/20/12 AV Ablation-Dr Jeffrey Campos, [facility] Episode June 2011 around 03/12/12 [place] [facility]-[id number] SVT--sched for [place] EP study Routine general medical exam ination at a health care facility 11/11/2011 Overview: Cards--Dr Jeffrey Campos [place]. 03/03/23 TTE [facility] normal EF, moderate LVH. Mild hypokinesis of apical septum. 01/18 Carotid US [place] stable 50-69 on left. 8/22 colonoscopy [facility] 3 3-[address] colon-polypoid mucosa mild hyperplastic changes. Rectal polyp= hyperplastic polyp. Dr Juan Mak [facility] (11/19 06/14 Cologuard WNL. Cardiology-Jeffrey Campos [place]. 12/17 Carotid 50-69% left ICA stenosis. Vielka [...] PFT evidence of COPD ) 05/10 TTE @[place] [id number] EF, mild LVH, Gr1 Feldman Dys 07/09 colonoscopy [facility] Endoscopy [place]-3 & 6mm polyp--PAth--Tubular adenoma 07/09 [place] TSH & celiac testing WNL 04/11 ER visit [facility] SVT--resolved with adenosine. 03/11 [...] as of this encounter (statuses as of 12/08/2023) Resolved Problems Problem Noted Date Diagnosed Date [...] as of this encounter (statuses as of 12/08/2023) Immunizations Name Administration Dates Next Due COVID-19 mRNA, LNP-s, No Pre serve, 2-Dose Series ([employer]) 01/24/2021,01/04/2021,06/03/2020 Hepatitis B, 20+ yrs 08/27/2009,03/30/2009,02/27 Pneumococcal [...] as of this encounter Progress Notes * Nicole Olguin DDS - 12/08/2023 2:40 PM EDT Images from the original note were not included. Outpatient Visit Department of Oral & Maxillofacial Surgery Oral Maxillofacial Surgery, [address] [address] Name: Mariia Liao : 1955 Date: 12/08/2023 Patient ID and History HPI: Mariia Liao is a 68 year old female who presents with a referral from [facility] for evaluation of lesion of the right [...] 06/27/2013 06/24/13 +CP-abnormal stress->cath @[facility]. 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 85% Circ (stented RACHAEL), LAD 20%. EF shows inferior hypokinesis EF 45% Carotid artery stenosis without cerebral infarction, left 12/30/2020 Chronic sinusitis 06/07/2001 Diabetic macular edema of both eyes ([facility]) 01/14/2019 DM type 2, goal A1C 7-8 DM type 2, goal A1c below 7 1999 Dyslipidemia, goal to be determined Generalized anxiety disorder Heart failure, systolic, due to CAD ([facility]) 06/27/2013 Heartburn History of 2019 novel [...] FOCUS 04/20/2012 AV Ablation-Dr Jeffrey Campos, [facility] BREAST LESION,OTHER,EXCISION Left benign BYPASS GRFT OTHER-CAROTID Right 05/02/[address] CARDIAC CATH SCANNED RESULT 06/24/2013 +Circ stent RACHAEL. CARPAL TUNNEL SURGERY 08/1992 Carpal Tunnel repair CARPAL TUNNEL SURGERY Left 12/11/2019 NEUROPLASTY MEDIAN NERVE AT CARPAL TUNNEL performed by Pankaj Osorio MD at OR [facility] COLONOSCOPY W/ LESION REMOVAL, SNARE 07/30/2010 polyps x 2--adenomatous tissue--repeat in 3 yrs , diverticulosis & fair prep-- COLONOSCOPY, DIAGNOSTIC (RECTUM) 10/02/2015 adenomatous polyps, diverticulosis, poor prep, repeat 1 yr/[facility] ENDART DEEP FEMORAL Right 01/19/2023 DEEP FEMORAL ENDARTERECTOMY performed by Willian Rosas MD at [facility] EXPLORATION OF MAXILLARY SINUS 06/07/2001 Sinus Surgery HYSTEROSCOPY W/BIOPSY AND/OR POLYPECTOMY W/WO D&C 02/14/2006 INFORMATION ablation INSERT NEEDLE/CATHETER, EXTREMITY ARTERY Right 06/09/2023 CATHETER INTRODUCTION, EXTREMITY ARTERY performed by Willian Rosas MD at OR [facility] INTRODUCTION OF CATHETER, AORTA 01/19/2023 CATHETER PLACEMENT, AORTA performed by Willian Rosas MD at OR [facility] IR ARTERIOGRAM EXTREMITY UNILATERAL Right 06/09/2023 IMAGING SUPERVISION & INTERPRETATION EXTREMITY UNILATERAL performed by Willian Rosas MDat OR [facility] LAP;OCCULSION OVIDUCTS/DEVICE 1985 LIGATE/CUT OVIDUCT(S) tubal ligation -rings TX CORONARY ARTERY BYP W/VEIN & ARTERY GRAFT 3 VEIN 04/27/2022 KUMAR to LAD, SVG to PL of LCx and PDA of the RCA 04/27/[address] [facility]. PULMONARY FUNCTION TEST SCREEN 10/09/2001 normal REMOVE GALLBLADDER 04/1993 Cholecystectomy REPAIR OF NASAL SEPTUM 06/07/2001 Nasal Septum Repair SUBQ DEBRIDEMENT, FIRST 20 CM2 Right 06/09/2023 DEBRIDEMENT SKIN AND SUBCUTANEOUS TISSUE performed by Willian Rosas MD at OR [facility] SURGICAL PROCEDURE ONLY Left 08/24/2023 Remove a cyst on left chest wall by Dr. Darnell Curiel. SYNTH BYPASS, FEMORAL-POP Right 01/19/2023 BYPASS GRAFT OTHER THAN VEIN FEMORAL POPLITEAL performed by Willian Rosas MD at [facility] TOTAL ABD HYSTERECTOMY W/WO REMOVAL OF TUBE(S) 06/23/2008 & oopherectomy VAGINAL DELIVERY ONLY VENOGRAM EXTREMITY UNI-FLUOR Right 01/19/2023 IMAGING SUPERVISION & INTERPRETATION EXTREMITY VEIN performed by Willian Rosas MD at [facility] Meds: Current Outpatient Medications Medication Sig [...] Occupation: retired. Employer: [employer] 115 Comment: [employer] [facility] Tobacco Use Smoking status: Former Current [...] Yes Partners: Male control/protection: Surgical Comment: tubal. [id number] 1 daughter 28Y Other Topics Concern Service [...] Stability Do you currently live in a senior care or have no steady place to sleep [...] plan. Will reach out to PCP and sheet rock hanger to ensure patient is optimized for the procedure. Tentative plan to biopsy the lesion under local anesthesia in [address] Campos in [place] [phone] sheet rock hanger Jonny Donaldson MD PCP [employer] [facility] Discussed findings and recommendations, as above. Questions [...] 01/05/2024 11:00 AM EST Office Visit Pharmacy, [facility] [address] [facility] [place] [address] Pharmacist2, [facility] [address] [place] [address] [address] [address] 01/05/2024 11:30 AM EST Pharmacy Pharmacy, [facility] [address] [place] [address] Pharmacist2, [facility] [address] [place] [address] [address] 03/05/2024 3:40 PM EST Office Visit Family [facility] [address] [facility] [place] [address] Jonny Donaldson MD [address] [place] [address] 05/29/2024 11:00 AM EDT Appointment Vascular Lab [place] [address] [place] [address] 05/29/2024 11:30 AM EDT Appointment Vascular Lab [place] [address] [place] [address] 05/29/2024 12:00 PM EDT Office Visit Vascular Surg [address] [address] Willian Rosas MD [address] [place] [address] 09/17/2024 10:00 AM EDT Imaging Radiology [address] [place] [address] Scheduled Referrals Name Type Priority Associated Diagnoses [...] this encounter Medical Devices Implanted Type Area Back Wedger Device Identifier Shelf Expiration Date Model / Serial / Lot Greater Than 80cm, 3mm-8mm Flora, Angiograft Pvd Saphenous Veins, Cryopreserved Implanted:Qty: 1 on 01/19/2023 by Willian Rosas MD at [facility] Right: Leg Upper LIFENET 07/29/2026 CV>80 / [id number] / [id number] documented as of this encounter Visit [...] Advance Directives occurred with: Patient Care Teams Physician Intensivist Relationship Specialty Start Date End Date Jonny Donaldson MD [address] [facility] [place] [address] PCP - General Family Medicine 05/27/14 documented as of this encounter
--- OUTSIDE RECORDS SUMMARY | 2024-04-26 14:49 | External Medical Summary | Summary of Care ---
Author Name Unknown Organization [facility] Address [address] [place] [address] Phone [phone] Care Team Providers Care [place] Name Role Phone Jonny Donaldson MD Primary Care Provider + Encounter Details Date Type Department Care Team (Late st Contact Info) Description 12/03/2023 Telephone Oral Maxillofacial Surgery, [place] [address] [place] [address] Services, [facility] [address] [place] [address] Allergies Active Allergy Reactions Criticality Noted Date Comments Cephalexin 01/28/1996 rash Doxepin 02/01/2018 Dust 04/04/2001 Nickel Anaphylaxis High 04/04/2001 Paroxetine 04/28/2003 generic only, brand ok Penicillins 03/03/1995 Rash Sulfa Antibiotics 11/27/1994 Rash documented as of this encounter (statuses as of 12/03/2023) Medications Medication Sig Dispensed Refills Start Date End Date Status ASPIRIN EC 81 MG PO TBECIndications:Typ e II or unspecified type diabetes mellitus with renal manifestations, uncontrolled(250.42 ) ([facility]) Take one [...] as of this encounter (statuses as of 12/03/2023) Active Problems Problem Noted Date Diagnosed Date [...] of the RCA 04/27/[address] Whyte [facility]. History of nonmelanoma skin cancer [...] disease) 06/27/2013 Overview: 06/24/13 +CP-abnormal stress->cath @[facility]. 100% occlusion RCA with left- right [...] 11/23/2011 Overview: 04/20/12 AV Ablation-Dr Jeffrey Campos, [facility] Episode June 2011 around 03/12/12 [place] [facility]-P175 SVT--sched for [place] EP study Routine general medical exam ination at a health care facility 11/11/2011 Overview: Cards--Dr Jeffrey Jalloh. 03/03/23 TTE [facility] normal EF, moderate LVH. Mild hypokinesis of apical septum. 01/18 Carotid US [place] stable 50-69 on left. 10/18 colonoscopy [facility] 3 3-[address] colon-polypoid mucosa mild hyperplastic changes. Rectal polyp= hyperplastic polyp. Dr Juan Mak [facility] (11/19 06/14 Cologuard WNL. Cardiology-Jeffrey Jalloh. 12/17 [...] PFT evidence of COPD ) 05/10 TTE @[place] Mihkfsrswb-wxao-jhiyqn EF, mild LVH, Gr1 Feldman Dys 07/09 colonoscopy [facility] Endoscopy [place]-3 & 6mm polyp--PAth--Tubular adenoma 07/09 [place] TSH & celiac testing WNL 04/11 ER [...] as of this encounter (statuses as of 12/03/2023) Resolved Problems Problem Noted Date Diagnosed Date [...] as of this encounter (statuses as of 12/03/2023) Immunizations Name Administration Dates Next Due COVID-19 mRNA, LNP-s, No Pre serve, 2-Dose Series ([employer]) 01/24/2021,01/04/2021,06/03/2020 Hepatitis B, 20+ yrs 08/27/2009,03/30/2009,02/27 Pneumococcal [...] encounter Miscellaneous Notes * Telephone Encounter - Adilia Doe OSA - 12/03/2023 2:38 PM EDT Pt has a 3 day urg for [facility] did an oral cancer screen and found two red spots, one raised and the other not. They would like evaluated please advise Ty documented in this encounter Plan of Treatment Upcoming Encounters Date Type Department Care Team (Late st Contact Info) Description 01/05/2024 11:00 AM EST Office Visit Pharmacy, [facility] [address] [facility] [place] [address] Pharmacist2, [facility] [address] [facility] [place] [address] 01/05/2024 11:30 AM EST Pharmacy Pharmacy, [facility] [address] [facility] [place] [address] Pharmacist2, [facility] [address] [facility] [place] [address] 03/05/2024 3:40 PM EST Office Visit Family Practice [facility] [address] [address] Jonny Donaldson MD [address] [place] [address] 05/29/2024 11:00 AM EDT Appointment Vascular Lab [address] [id number] 05/29/2024 11:30 AM EDT Appointment Vascular Lab [address] [place] [address] 05/29/2024 12:00 PM EDT Office Visit Vascular Surg [facility], [place] [address] [facility] [place] [address] Willian Rosas MD [address] [facility] [place] [address] 09/17/2024 10:00 AM EDT Imaging Radiology [address] [place] [address] Health Maintenance Due Date Last Done Comments [...] this encounter Medical Devices Implanted Type Area Groundwater Consultant Device Identifier Shelf Expiration Date Model / Serial / Lot Greater Than 80cm, 3mm-8mm Flora, Angiograft Pvd Saphenous Veins, Cryopreserved Implanted:Qty: 1 on 01/19/2023 by Willian Rosas MD at OR [facility] Right: Leg Upper LIFENET 07/29/2026 CV>80 / [id number] / [id number] documented as of this encounter Advance [...] Advance Directives occurred with: Patient Care Teams Tar [place]el Relationship Specialty Start Date End Date Jonny oDnaldson MD [address] [place] [address] PCP - General Family Medicine 05/27/14 documented as of this encounter
[2024-04-26] MEDS ORDERED: INSULIN ASPART PER UNIT CHARGE SC SCH (16:30)
[2024-04-26] MEDS: INSULIN ASPART PER UNIT CHARGE SC SCH (20:01)
[2024-04-26] MEDS: traMADol HCL 50 MG TABLET PO PRN (21:28)
[2024-04-26] MEDS: rOPINIRole HCL 0.25 MG TABLET PO SCH (21:28)
[2024-04-26] MEDS: AMITRIPTYLINE HCL 50 MG TAB PO SCH (21:28)
[2024-04-27] MEDS: VANCOMYCIN HCL 1,000 MG/270 ML BAG IV SCH (01:56)
[2024-04-27 02:54] LABS: ANTI-Xa, UFH(UnfractionatedHep 0.19 IU/ml (0.3-0.7)
[2024-04-27] MEDS: HEPARIN SOD (PORCINE) 1000 UNIT/ML IV ONE (03:45)
[2024-04-27 10:04] LABS: Hematocrit (blood only) 47.5 % (37.0-47.0); Hemoglobin 14.4 g/dl (12.0-16.0); Mean Corpuscular Hemoglobin 25.4 pg (25.0-34.0); Mean Corpuscular Hgb Conc 30.3 g/dL (32.0-36.0); Mean Corpuscular Volume 83.6 fL (80.0-100.0); Mean Platelet Volume 10.4 fL (9.4-12.4); Platelet Count 202 K/uL (130-400); RDW Coefficient of Variation 20.2 % (11.5-14.5); RDW Standard Deviation 59.7 fL (36.4-46.3); Red Blood Count 5.68 M/uL (4.20-5.40); White Blood Count 7.63 K/ul (4.8-10.8)
[2024-04-27] MEDS: ATORVASTATIN 40 MG TAB PO SCH (10:24)
[2024-04-27] MEDS: ASPIRIN 81 MG CHEW PO SCH (10:24)
[2024-04-27] MEDS: cefTRIAXone SODIUM 2,000 MG/50 ML BAG IV SCH (10:24)
[2024-04-27] MEDS: EMPAGLIFLOZIN 10 MG TAB PO SCH (10:25)
[2024-04-27] MEDS: METOPROLOL SUCC 25MG EXT REL TAB PO SCH (10:25)
[2024-04-27] MEDS: SERTRALINE HCL 100 MG TABLET PO SCH (10:25)
[2024-04-27 10:27] LABS: BUN Creatinine Ratio 13.8 (10-20); Creatinine Clr Calc Pharmacy 88.6 ml/min; Magnesium 1.7 mg/dl (1.7-2.4)
[2024-04-27 10:30] LABS: ANTI-Xa, UFH(UnfractionatedHep 0.34 IU/ml (0.3-0.7)
[2024-04-27] MEDS: OPTIRAY 320 125ml IV ONE (14:14)
--- NOTE | 2024-04-27 14:38 | CT Scan Report ---
HISTORY: Right leg pain. Evaluation for acute thrombosis TECHNIQUE: Right lower extremity CT angiography following IV administration of Optiray 320 IV contrast. Images are presented in axial, sagittal, coronal reformats. Axial and sagittal 3D MIP reconstructions are also provided. COMPARISON: None. FINDINGS: Severe stenosis of the right external iliac artery. The right common femoral artery is patent. The deep femoral artery is patent. The superficial femoral artery is occluded at its origin. Reconstitution is visible at the level of the popliteal artery. There is severe stenosis of the popliteal artery. There is intermittent occlusion and multifocal severe stenosis of the lower extremity arteries with reconstitution. The peroneal artery is visible into the ankle. The reconstituted posterior tibial artery is seen at the level of the ankle. Extensive soft tissue swelling throughout the right lower extremity. The right lower extremity musculature appears well-developed. Colonic diverticulosis. Mild osteoarthritis of the right hip. Mild osteoarthritis of the right knee. IMPRESSION: * Right superficial femoral artery is occluded at its origin and demonstrates multifocal severe atherosclerotic plaque and narrowing. There is reconstitution at the level of the popliteal artery. Multifocal occlusion of the infrapopliteal vessels with severe atherosclerotic plaque. The reconstituted peroneal artery is visible into the ankle. Reconstituted posterior tibial artery is visible at the ankle. Severe soft tissue swelling throughout the right lower extremity. Electronically signed by Robert Patricia 04-27-2024 2:37 PM
--- NOTE | 2024-04-27 16:17 | Hospitalist Progress Note ---
Date of Service April 27, 2024 Assessment & Plan (1) Dyslipidemia: (2) HTN (hypertension): (3) COPD (chronic obstructive pulmonary disease): (4) Stenosis of right subclavian artery: (5) PAD (peripheral artery disease): (6) CAD (coronary artery disease): (7) Type 2 diabetes mellitus with diabetic neuropathy: (8) History of stroke: Plan The patient is a 68-year-old female with a PMH of PAD with history of revascularization who presents to the ED on 04/26/2024 with complaints of right lower extremity cellulitis that has not improved on doxycycline and Keflex after 10 days. Right lower extremity cellulitis History of emergent right lower extremity revascularization in December 2022; bypass occluded. Completed a course of oral doxycycline and Keflex x 10 days on 04/25 with no improvement Arterial duplex scan showing occlusion of the proximal R common femoral artery and R peroneal artery CT of the lower extremity was done; known history of severe PAD. Reviewed outpatient vascular surgery note; revascularization options are limited, as p ricardo is allergic to nickel. Patient's right lower extremity examination is consistent with cellulitis. She does not want any intervention for her known PAD; denies any increasing pain. In the future, she might consider intervention if there is severe pain, acute limb ischemia. Will continue on current antibiotic. Heparin discontinued. Continue on Xarelto, aspirin and Lipitor. Hx [id number] requiring: Managed on Mounjaro/Lantus at home, SSI/4 times daily BGM, Hx CAD s/p CABG x 3: Hx HTN/CVA Continue aspirin/metoprolol/statin Hx anxiety/depression: Continue amitriptyline/sertraline DNR/DNI DVT prophylaxis:Xarelto Plan of care discussed with patient and patient's at bedside; both are agreeable with the plan. Time spent evaluating patient, direct bedside care, chart review, placing orders, interpretation of diagnostic studies, discussion with consultants, patient, and family members, as well as other required patient management activities is 50 minutes Please note the above document was generated using voice recognition software. It may contain grammatical, syntax or spelling errors. Any formal questions or concerns about the content, text or information contained within the body of this dictation should be directly addressed to the provider for clarification Admission and Anticipated Discharge Date Admission Date: April 26, 2024 Subjective Patient seen and examined at bedside She reports that the pain and swelling has not improved compared to previous days. She denies any increasing pain; her leg/foot is warm to touch. Review of Systems Review of Systems: All systems reviewed & are unremarkable except as noted in Subjective Physical Exam Physical Exam: Constitutional: Alert oriented x 3; not in distress. Respiratory: Bilateral vesicular breath sound Cardiovascular: RRR, no murmur, no edema Vessels: no JVD or carotid bruit Chest: normal inspection of chest Abdomen: normal bowel sounds, soft, nontender, no hepatosplenomegaly Musculoskeletal: Redness, tenderness, swelling starting below the knee gradually extending towards the foot; blanches on touch. Foot is warm to touch. Neurologic: PERRL, EOMI, accommodation nl, no face palsy, no dysarthria CN's II- XI intact bilaterally and moves all extremities Psychiatric: A+Ox3, euthymic affect Results & Data Results & Data Vital Signs (Past 12 Hours) Vital Signs Temp Pulse Pulse Pulse Resp BP BP 04/27/24 15:04 04/27/24 14:35 84 04/27/24 14:31 36.8 C 78 22 96/67 L 04/27/24 11:00 19 108/86 04/27/24 08:00 103 H 17 97/68 L 04/27/24 07:06 83 04/27/24 07:00 78 17 110/82 04/27/24 05:00 86 20 93/67 L Pulse Ox O2 Del Method O2 Flow Rate 04/27/24 15:04 Nasal Cannula 4 04/27/24 14:35 04/27/24 14:31 97 Nasal Cannula 04/27/24 11:00 97 Nasal Cannula 4 04/27/24 08:00 96 Nasal Cannula 4 04/27/24 07:06 04/27/24 07:00 97 Nasal Cannula 4 04/27/24 05:00 96 Nasal Cannula 5 (2) HTN (hypertension) Hypertension type: primary hypertension Qualified Code(s): I10 - Essential (primary) hypertension (3) COPD (chronic obstructive pulmonary disease) COPD type: emphysema Emphysema type: unspecified Qualified Code(s): J43.9 - Emphysema, unspecified (6) CAD (coronary artery disease) Coronary Disease-Associated Artery/Lesion type: [place] artery [place] vs. transplanted heart: [place] heart Associated angina: without angina Qualified Code(s): I25.10 - Atherosclerotic heart disease of [place] coronary artery [place] angina pectoris (7) Type 2 diabetes mellitus with diabetic neuropathy Diabetes mellitus extermination inspector insulin use: with shelter use Qualified Code(s): E11.40 - Type 2 diabetes mellitus with diabetic neuropathy, unspecified; Z79.4 - senior care (current) use of insulin
[2024-04-27] MEDS: RIVAROXABAN 2.5 MG TAB PO SCH (23:50)
[2024-04-28] MEDS ORDERED: PHARMACY GLYCEMIC MGMT CONSULT PRN (08:12)
[2024-04-28 09:32] LABS: Basophils # (auto) 0.02 K/uL (0.00-0.20); Basophils % (auto) 0.3 %; Eosinophils # (auto) 0.08 K/uL (0.00-0.50); Hematocrit (blood only) 49.6 % (37.0-47.0); Hemoglobin 14.6 g/dl (12.0-16.0); Immature Granulocytes # (auto) 0.03 K/uL (0.01-0.20); Immature Granulocytes % (auto) 0.4 %; Lymphocytes % (auto) 8.8 %; Mean Corpuscular Hemoglobin 24.5 pg (25.0-34.0); Mean Corpuscular Hgb Conc 29.4 g/dL (32.0-36.0); Mean Corpuscular Volume 83.4 fL (80.0-100.0); Mean Platelet Volume 10.3 fL (9.4-12.4); Monocytes # (auto) 0.42 K/uL (0.11-0.59); Monocytes % (auto) 5.3 %; Neutrophils # (auto) 6.67 K/uL (1.40-6.50); Neutrophils % (auto) 84.2 %; Platelet Count 205 K/uL (130-400); RDW Coefficient of Variation 20.6 % (11.5-14.5); RDW Standard Deviation 59.3 fL (36.4-46.3); Red Blood Count 5.95 M/uL (4.20-5.40); White Blood Count 7.92 K/ul (4.8-10.8)
[2024-04-28 09:38] LABS: BUN Creatinine Ratio 16.5 (10-20); Calcium 9.3 mg/dl (8.6-10.3); Creatinine Clr Calc Pharmacy 97.6 ml/min; Potassium 4.7 mmol/L (3.5-5.1)
[2024-04-28] MEDS: LANTUS PER UNIT CHARGE SQ SCH ×2 (09:46→20:31)
[2024-04-28 10:09] LABS: Anisocytosis Present
--- NOTE | 2024-04-28 12:05 | Pharmacy Report ---
Pharmacy PK ABX Note - Date of Service April 28, 2024 - Assessment and Plan Assessment 04/28: * Day # 3 vancomycin, ceftriaxone. Renal function stable. Blood cultures NGTD. 04/26: * 68 year old F receiving vancomycin/ceftriaxone for treatment of right lower cellulitis. Patient without improvement following 10 days of doxycycline/cephalexin. Normal WBC, afebrile. History of severe PAD, vascular consulted, R arterial duplex scan showing occlusion of the proximal R common femoral artery and r peroneal artery Plan Vancomycin * Current regimen: vancomycin 1gm IV q12h * Random level this AM (~9h level), 13.8mcg/mL. Predicted to achieve ssAUC 476mg/L.hr- therapeutic. * Continue vancomycin 1gm IV q12h * Repeat level in ~ 48h or sooner if clinically indicated Pharmacy will continue to follow and will adjust dose/frequency as necessary. Thank you. Pharmacy has transitioned to AUC monitoring for vancomycin. AUC/SRINI is the preferred PK/PD target and is associated with decreased risk of nephrotoxicity compared to traditional trough targets.
--- NOTE | 2024-04-28 12:20 | Hospitalist Progress Note ---
Date of Service April 28, 2024 Assessment & Plan (1) Dyslipidemia: (2) HTN (hypertension): (3) COPD (chronic obstructive pulmonary disease): (4) Stenosis of right subclavian artery: (5) PAD (peripheral artery disease): (6) CAD (coronary artery disease): (7) Type 2 diabetes mellitus with diabetic neuropathy: (8) History of stroke: Plan The patient is a 68-year-old female with a PMH of PAD with history of revascularization who presents to the ED on 04/26/2024 with complaints of right lower extremity cellulitis that has not improved on doxycycline and Keflex after 10 days. Right lower extremity cellulitis History of emergent right lower extremity revascularization in December 2022; bypass occluded. Completed a course of oral doxycycline and Keflex x 10 days on 04/25 with no improvement Arterial duplex scan showing occlusion of the proximal R common femoral artery and R peroneal artery CT of the lower extremity was done; known history of severe PAD. Reviewed outpatient vascular surgery note; revascularization options are limited, as p atient is allergic to nickel. Continue on antibiotics for the cellulitis; improvement noted on today's exam. Continue on Xarelto, aspirin and Lipitor for PA Hx [id number] requiring: Managed on Mounjaro/Lantus at home, SSI/4 times daily BGM, Hx CAD s/p CABG x 3: Hx HTN/CVA Continue aspirin/metoprolol/statin Hx anxiety/depression: Continue amitriptyline/sertraline DNR/DNI DVT prophylaxis:Xarelto Please note the above document was generated using voice recognition software. It may contain grammatical, syntax or spelling errors. Any formal questions or concerns about the content, text or information contained within the body of this dictation should be directly addressed to the provider for clarification Admission and Anticipated Discharge Date Admission Date: April 26, 2024 Subjective Patient seen and examined at bedside. She is comfortable; not in any distress. She reports that the pain in her leg has improved compared to yesterday with overall improvement in erythema and swelling Vital signs are stable Review of Systems Review of Systems: All systems reviewed & are unremarkable except as noted in Subjective Physical Exam Physical Exam: Constitutional: Alert oriented x 3; not in distress. Respiratory: Bilateral vesicular breath sound Cardiovascular: RRR, no murmur, no edema Vessels: no JVD or carotid bruit Chest: normal inspection of chest Abdomen: normal bowel sounds, soft, nontender, no hepatosplenomegaly Musculoskeletal: Redness, tenderness and swelling improved compared to yesterday. Neurologic: PERRL, EOMI, accommodation nl, no face palsy, no dysarthria CN's II- XI intact bilaterally and moves all extremities Psychiatric: A+Ox3, euthymic affect Results & Data Results & Data Vital Signs (Past 12 Hours) Vital Signs Temp Pulse Pulse Resp BP Pulse Ox O2 Del Method 04/28/24 11:15 36.7 C 78 18 135/82 91 Nasal Cannula 04/28/24 07:28 36.5 C 98 H 18 175/90 H 94 Nasal Cannula 04/28/24 05:45 105 H 04/28/24 03:05 36.5 C 86 16 94/63 L 93 Nasal Cannula O2 Flow Rate 04/28/24 11:15 2 04/28/24 07:28 2 04/28/24 05:45 04/28/24 03:05 4 (2) HTN (hypertension) Hypertension type: primary hypertension Qualified Code(s): I10 - Essential (primary) hypertension (3) COPD (chronic obstructive pulmonary disease) COPD type: emphysema Emphysema type: unspecified Qualified Code(s): J43.9 - Emphysema, unspecified (6) CAD (coronary artery disease) Coronary Disease-Associated Artery/Lesion type: [place] artery [place] vs. transplanted heart: [place] heart Associated angina: without angina Qualified Code(s): I25.10 - Atherosclerotic heart disease of [place] coronary artery without angina pectoris (7) Type 2 diabetes mellitus with diabetic neuropathy Diabetes mellitus snf insulin use: with buttermaker helper use Qualified Code(s): E11.40 - Type 2 diabetes mellitus with diabetic neuropathy, unspecified; Z79.4 - residential (current) use of insulin
--- NOTE | 2024-04-28 13:25 | XRay Report ---
XR chest 2V PA/lateral HISTORY: 68 years-old Female increase oxygen requirment from baseline acute hypoxia COMPARISON: 03/02/2023 TECHNIQUE: PA and lateral views of the chest FINDINGS: Cardiac silhouette is mildly enlarged. Atherosclerosis of the aorta. Moderate right hemidiaphragmatic elevation. Atherosclerosis of the aorta. Mild interstitial coarsening appears chronic. Probable trac e pleural effusions. No pneumothorax. Cholecystectomy. Bones appear grossly intact. IMPRESSION: 1. Cardiomegaly with pulmonary vascular congestion. 2. Trace pleural effusions with mild bibasilar atelectasis. ACT 112: Negative or not required by law. The above report was generated using voice recognition software. It may contain grammatical, syntax o r spelling errors. Electronically signed by: Gilbert Alvarenga M.D. 04/28/2024 1:24 PM
--- NOTE | 2024-04-28 14:50 | Pharmacy Report ---
Pharmacy Glycemic Short Note 2 - Date of Service April 28, 2024 - Glycemic Short BSG Results (Last 24 hours): 04/27/24 04/27/24 04/28/24 17:11 20:34 08:11 Glucose POC Glucose 140 H 167 H 186 H 04/28/24 04/28/24 08:43 11:58 Glucose 171 H POC Glucose 104 H OUTPATIENT ANTIDIABETIC REGIMEN: * jardiance 10 mg daily, victoza prn?, metformin 850 mg tidm, basaglar 54 units hs, novolog 15 units tidm ASSESSMENT: * 68 year old admitted with RLE cellulitis. Pharmacy consulted for glycemic management. Patient received total of 10 units of insulin yesterday, all of which were correctional insulin. * Fasting BSG trending upward >180 this AM, Lantus 20 units ordered. No other basal insulin given since admission. Lunch BSG trending down 109 mg/dL - plan to loosen novolog slightly. Anticipate insulin needs to be much less than outpatient dosing. Will consider small Lantus dose for HS if BSGs start trending upward. PLAN FOR INPATIENT GLYCEMIC CONTROL: * Hold outpatient oral diabetes medications * Basal insulin * Lantus 20 units daily * Lantus 0-10 units HS * Bolus insulin * NovoLog per scale ACHS or Q6hrs while NPO * Goal Range: Low 140 mg/dL - High 180 mg/dL * Correction Factor: 20 mg/dL/unit * Nutritional / Prandial insulin per carb ratio of 1 unit per 9 grams CHO consumed
[2024-04-28] MEDS: rOPINIRole HCL 0.25 MG TABLET PO PRN (15:09)
[2024-04-28] MEDS: GABAPENTIN 300 MG CAP PO SCH (15:09)
[2024-04-28] MEDS: SERTRALINE HCL 100 MG TABLET PO STA (15:09)
[2024-04-28] MEDS ORDERED: GABAPENTIN 300 MG CAP PO SCH (21:00)
[2024-04-29 06:17] LABS: BUN Creatinine Ratio 16.1 (10-20); C Reactive Protein 0.55 mg/dl (0-0.5); Calcium 9.3 mg/dl (8.6-10.3); Creatinine Clr Calc Pharmacy 88.6 ml/min; Potassium 4.5 mmol/L (3.5-5.1)
[2024-04-29] MEDS: LANTUS PER UNIT CHARGE SQ SCH (09:13)
[2024-04-29] MEDS: FUROSEMIDE 20 MG TAB PO SCH (14:33)
[2024-04-29] MEDS: SERTRALINE HCL 100 MG TABLET PO STA (14:33)
--- NOTE | 2024-04-29 14:51 | Hospitalist Progress Note ---
Date of Service April 29, 2024 Assessment & Plan (1) Dyslipidemia: (2) HTN (hypertension): (3) COPD (chronic obstructive pulmonary disease): (4) Stenosis of right subclavian artery: (5) PAD (peripheral artery disease): (6) CAD (coronary artery disease): (7) Type 2 diabetes mellitus with diabetic neuropathy: (8) History of stroke: Plan The patient is a 68-year-old female with a PMH of PAD with history of revascularization who presents to the ED on 04/26/2024 with complaints of right lower extremity cellulitis that has not improved on doxycycline and Keflex after 10 days. Right lower extremity cellulitis History of emergent right lower extremity revascularization in December 2022; bypass occluded. Completed a course of oral doxycycline and Keflex x 10 days on 04/25 with no improvement Arterial duplex scan showing occlusion of the proximal R common femoral artery and R peroneal artery CT of the lower extremity was done; known history of severe PAD. Reviewed outpatient vascular surgery note; revascularization options are limited, as p atient is allergic to nickel. Continue on antibiotics for the cellulitis; Continues to have improvement in lower extremity. Continue on Xarelto, aspirin and Lipitor for PA Acute on chronic CHFpEF Patient was found to be on 4 L of oxygen on admission Chest x-ray shows pulmonary edema Echocardiogram from February 2023 showed EF of 60 to 65% with grade 1 diastolic dysfunction Started on Lasix 20 mg every other day Hx [id number] requiring: Managed on Mounjaro/Lantus at home, SSI/4 times daily BGM, Hx CAD s/p CABG x 3: Hx HTN/CVA Continue aspirin/metoprolol/statin Hx anxiety/depression: Continue amitriptyline/sertraline DNR/DNI DVT prophylaxis:Xarelto Please note the above document was generated using voice recognition software. It may contain grammatical, syntax or spelling errors. Any formal questions or concerns about the content, text or information contained within the body of this dictation should be directly addressed to the provider for clarification Admission and Anticipated Discharge Date Admission Date: April 26, 2024 Subjective Patient continues to report improvement in her leg pain, swelling and redness. Afebrile and saturating well in room air. Review of Systems Review of Systems: All systems reviewed & are unremarkable except as noted in Subjective Physical Exam Physical Exam: Constitutional: Alert oriented x 3; not in distress. Respiratory: Bilateral vesicular breath sound Cardiovascular: RRR, no murmur, no edema Vessels: no JVD or carotid bruit Chest: normal inspection of chest Abdomen: normal bowel sounds, soft, nontender, no hepatosplenomegaly Musculoskeletal:Redness, tenderness and swelling gradually improving in right lower extremity. Neurologic: PERRL, EOMI, accommodation nl, no face palsy, no dysarthria CN's II-XI intact bilaterally and moves all extremities Psychiatric: A+Ox3, euthymic affect Results & Data Results & Data Vital Signs (Past 12 Hours) Vital Signs Temp Pulse Pulse Resp BP BP Pulse Ox 04/29/24 11:36 36.6 C 97 H 18 105/74 97 04/29/24 09:46 04/29/24 07:30 36.8 C 90 17 91/65 L 97 04/29/24 07:00 82 04/29/24 03:18 36.6 C 101 H 16 146/79 H 97 O2 Del Method O2 Flow Rate 04/29/24 11:36 Room Air 04/29/24 09:46 Nasal Cannula 4 04/29/24 07:30 Nasal Cannula 4 04/29/24 07:00 04/29/24 03:18 Nasal Cannula 4 (2) HTN (hypertension) Hypertension type: primary hypertension Qualified Code(s): I10 - Essential (primary) hypertension (3) COPD (chronic obstructive pulmonary disease) COPD type: emphysema Emphysema type: unspecified Qualified Code(s): J43.9 - Emphysema, unspecified (6) CAD (coronary artery disease) Coronary Disease-Associated Artery/Lesion type: [place] artery [place] vs. transplanted heart: [place] heart Associated angina: without angina Qualified Code(s): I25.10 - Atherosclerotic heart disease of [place] coronary artery without angina pectoris (7) Type 2 diabetes mellitus with diabetic neuropathy Diabetes mellitus nursing home insulin use: with nursing home use Qualified Code(s): E11.40 - Type 2 diabetes mellitus with diabetic neuropathy, unspecified; Z79.4 - [facility] (current) use of insulin
[2024-04-29] MEDS: FLUCONAZOLE 50 MG TAB PO ONE (16:51)
[2024-04-30 06:20] LABS: Creatinine Clr Calc Pharmacy 77.1 ml/min
--- NOTE | 2024-04-30 08:15 | Hospitalist Progress Note ---
Date of Service April 30, 2024 Assessment & Plan (1) Dyslipidemia: (2) HTN (hypertension): (3) COPD (chronic obstructive pulmonary disease): (4) Stenosis of right subclavian artery: (5) PAD (peripheral artery disease): (6) CAD (coronary artery disease): (7) Type 2 diabetes mellitus with diabetic neuropathy: (8) History of stroke: Plan The patient is a 68-year-old female with a PMH of PAD with history of revascularization who presents to the ED on 04/26/2024 with complaints of right lower extremity cellulitis that has not improved on doxycycline and Keflex after 10 days. Right lower extremity cellulitis History of emergent right lower extremity revascularization in December 2022; bypass occluded. Completed a course of oral doxycycline and Keflex x 10 days on 04/25 with no improvement Arterial duplex scan showing occlusion of the proximal R common femoral artery and R peroneal artery CT of the lower extremity was done; known history of severe PAD. Reviewed outpatient vascular surgery note; revascularization options are limited, as p atient is allergic to nickel. Continue on Vancomycin for the cellulitis; Continues to have improvement in lower extremity. Continue on Xarelto, aspirin and Lipitor for PA Acute on chronic CHFpEF Patient was found to be on 4 L of oxygen on admission Chest x-ray shows pulmonary edema Echocardiogram from February 2023 showed EF of 60 to 65% with grade 1 diastolic dysfunction Started on Lasix 20 mg every other day Hx [id number] requiring: Managed on Mounjaro/Lantus at home, SSI/4 times daily BGM, Hx CAD s/p CABG x 3: Hx HTN/CVA Continue aspirin/metoprolol/statin Hx anxiety/depression: Continue amitriptyline/sertraline Urgency incontinence Patient reports a history of urge incontinence; requested Gardner catheter placement while hospitalized. Plan to remove Gardner prior to discharge. Oxybutynin prescription sent to the pharmacy as per patient's request. DNR/DNI DVT prophylaxis:Xarelto Dispositionpatient admitted for right lower extremity cellulitis with failed outpatient treatment; plan to continue IV antibiotics for next few days. Please note the above document was generated using voice recognition software. It may contain grammatical, syntax or spelling errors. Any formal questions or concerns about the content, text or information contained within the body of this dictation should be directly addressed to the provider for clarification Admission and Anticipated Discharge Date Admission Date: April 26, 2024 Subjective Patient continues to have improvement in right lower extremity cellulitis Reports that the pain and swelling has improved No significant events overnight Review of Systems Review of Systems: All systems reviewed & are unremarkable except as noted in Subjective Physical Exam Physical Exam: Constitutional: Alert oriented x 3; not in distress. Respiratory: Bilateral vesicular breath sound Cardiovascular: RRR, no murmur, no edema Vessels: no JVD or carotid bruit Chest: normal inspection of chest Abdomen: normal bowel sounds, soft, nontender, no hepatosplenomegaly Musculoskeletal:Redness, tenderness and swelling gradually improving in right lower extremity. Neurologic: PERRL, EOMI, accommodation nl, no face palsy, no dysarthria CN's II- XI intact bilaterally and moves all extremities Psychiatric: A+Ox3, euthymic affect Results & Data Results & Data Vital Signs (Past 12 Hours) Vital Signs Temp Pulse Pulse Resp BP BP Pulse Ox 04/30/24 08:04 36.6 C 94 H 20 133/76 92 04/30/24 07:35 90 04/30/24 03:19 36.5 C 80 18 117/77 92 04/29/24 22:58 36.8 C 78 16 112/72 93 04/29/24 21:48 82 04/29/24 20:15 O2 Del Method O2 Flow Rate 04/30/24 08:04 Room Air 04/30/24 07:35 04/30/24 03:19 Nasal Cannula 4 04/29/24 22:58 Nasal Cannula 4 04/29/24 21:48 04/29/24 20:15 Room Air (2) HTN (hypertension) Hypertension type: primary hypertension Qualified Code(s): I10 - Essential (primary) hypertension (3) COPD (chronic obstructive pulmonary disease) COPD type: emphysema Emphysema type: unspecified Qualified Code(s): J43.9 - Emphysema, unspecified (6) CAD (coronary artery disease) Associated angina: without angina Coronary Disease-Associated Artery/Lesion type: [place] artery [place] vs. transplanted heart: [place] heart Qualified Code(s): I25.10 - Atherosclerotic heart disease of [place] coronary artery without angina pectoris (7) Type 2 diabetes mellitus with diabetic neuropathy Diabetes mellitus long term acute care registered nurse insulin use: with nursing home use Qualified Code(s): E11.40 - Type 2 diabetes mellitus with diabetic neuropathy, unspecified; Z79.4 - [facility] (current) use of insulin
[2024-04-30] MEDS: SERTRALINE HCL 100 MG TABLET PO SCH (08:59)
[2024-04-30] MEDS: NYSTATIN POWDER 15GM BTL EXT PRN (11:00)
[2024-05-01 07:35] VITALS: RESP 18
--- NOTE | 2024-05-01 08:35 | Pharmacy Report ---
Pharmacy Glycemic Short Note 2 - Date of Service May 01, 2024 - Glycemic Short BSG Results (Last 24 hours): 04/30/24 04/30/24 04/30/24 11:59 16:48 21:00 POC Glucose 185 H 127 H 220 H 05/01/24 08:03 POC Glucose 153 H OUTPATIENT ANTIDIABETIC REGIMEN: * Jardiance 10 mg daily, victoza prn?, metformin 850 mg TIDM, Basaglar 54 units hs, Novolog 15 units TIDM HbA1c: 9.6% (03/03/23), reordered for 05/02/24 ASSESSMENT: 05/01/24: * Blood sugars ranging 127-220 mg/dL over past 48 hours * Receiving ~35 units of insulin/day (20 units of basal) * Remains on vancomycin for treatment of RLE cellulitis * Anticipating only minor adjustments to current regimen today 04/28/24: * 68 year old admitted with RLE cellulitis. Pharmacy consulted for glycemic management. Patient received total of 10 units of insulin yesterday, all of which were correctional insulin. * Fasting BSG trending upward >180 this AM, Lantus 20 units ordered. No other basal insulin given since admission. Lunch BSG trending down 109 mg/dL - plan to loosen novolog slightly. Anticipate insulin needs to be much less than outpatient dosing. Will consider small Lantus dose for HS if BSGs start trending upward. PLAN FOR INPATIENT GLYCEMIC CONTROL: * Empagliflozin 10 mg PO daily * Basal insulin * Lantus 20 units daily * Bolus insulin * NovoLog per scale ACHS or Q6hrs while NPO * Goal Range: Low 120 mg/dL - High 160 mg/dL * Correction Factor: 25 mg/dL/unit * Nutritional / Prandial insulin per carb ratio of 1 unit per 8 grams CHO consumed
[2024-05-01 08:46] LABS: Basophils # (auto) 0.03 K/uL (0.00-0.20); Basophils % (auto) 0.5 %; Eosinophils # (auto) 0.17 K/uL (0.00-0.50); Eosinophils % (auto) 2.6 %; Hematocrit (blood only) 46.8 % (37.0-47.0); Immature Granulocytes # (auto) 0.01 K/uL (0.01-0.20); Immature Granulocytes % (auto) 0.2 %; Lymphocytes # (auto) 1.04 K/uL (1.20-3.40); Lymphocytes % (auto) 15.6 %; Mean Corpuscular Hemoglobin 25.2 pg (25.0-34.0); Mean Corpuscular Hgb Conc 29.9 g/dL (32.0-36.0); Mean Corpuscular Volume 84.3 fL (80.0-100.0); Mean Platelet Volume 10.3 fL (9.4-12.4); Monocytes # (auto) 0.54 K/uL (0.11-0.59); Monocytes % (auto) 8.1 %; Neutrophils # (auto) 4.87 K/uL (1.40-6.50); Platelet Count 179 K/uL (130-400); RDW Coefficient of Variation 19.8 % (11.5-14.5); RDW Standard Deviation 59.1 fL (36.4-46.3); Red Blood Count 5.55 M/uL (4.20-5.40); White Blood Count 6.66 K/ul (4.8-10.8)
[2024-05-01 09:09] LABS: Albumin Globulin Ratio 1.1 (0.9-2); Albumin Level 3.6 gm/dl (3.4-5.0); BUN Creatinine Ratio 20.2 (10-20); Bilirubin,Total 0.4 mg/dl (0.2-1.0); Calcium 8.9 mg/dl (8.6-10.3); Creatinine Clr Calc Pharmacy 86.6 ml/min; Globulin 3.2 gm/dl (2.5-4.0); Potassium 4.7 mmol/L (3.5-5.1); Total Protein 6.8 gm/dl (6.0-8.3)
[2024-05-01 11:16] VITALS: PULSE 91; TEMP 97.9; O2SAT 95
[2024-05-01] MEDS: CLOTRIMAZOLE 1% CR 15 GM TUBE EXT SCH (11:26)
[2024-05-01] MEDS: FLUCONAZOLE 50 MG TAB PO ONE (11:27)
--- NOTE | 2024-05-01 12:16 | Hospitalist Progress Note ---
Date of Service May 01, 2024 Assessment & Plan (1) Dyslipidemia: (2) HTN (hypertension): (3) COPD (chronic obstructive pulmonary disease): (4) Stenosis of right subclavian artery: (5) PAD (peripheral artery disease): (6) CAD (coronary artery disease): (7) Type 2 diabetes mellitus with diabetic neuropathy: (8) History of stroke: Plan The patient is a 68-year-old female with a PMH of PAD with history of revascularization who presents to the ED on 04/26/2024 with complaints of right lower extremity cellulitis that has not improved on doxycycline and Keflex after 10 days. Right lower extremity cellulitis H/O emergent right lower extremity revascularization in December 2022; bypass occluded. Completed a course of oral doxycycline and Keflex x 10 days on 04/25 with no improvement --Arterial duplex scan showing occlusion of the proximal R common femoral artery and R peroneal artery --CT of the lower extremity was done; known history of severe PAD. Reviewed outpatient vascular surgery note; revascularization options are limited, as patient is allergic to nickel. -- Blood cultures negative to date Continue on Vancomycin for the cellulitis; clinically much improved Continue on Xarelto, aspirin and Lipitor Will transition to oral antibiotics on discharge Acute on chronic CHFpEF Patient was found to be on 4 L of oxygen on admission-weaned off of oxygen- Chest x-ray shows pulmonary edema Echocardiogram from February 2023 showed EF of 60 to 65% with grade 1 diastolic dysfunction Started on Lasix 20 mg every other day Continue Lasix as above Hx [id number] dependent: Managed on Mounjaro/Lantus at home, SSI Monitor blood glucose levels Hx CAD s/p CABG x 3: Hx HTN/CVA Continue aspirin/metoprolol/statin Hx anxiety/depression: Continue amitriptyline/sertraline Urgency incontinence Patient reports a history of urge incontinence; requested Gardner catheter placement while hospitalized. Plan to remove Gardner prior to discharge today Oxybutynin prescription sent to the pharmacy as per patient's request. Code Status DNR/DNI DVT Px: Xarelto Disposition Home Admission and Anticipated Discharge Date Admission Date: April 26, 2024 Subjective Patient is seen and examined at bedside Leg edema, erythema much improved Reports groin itching Denies any chest pain, dyspnea, nausea, vomiting, abdominal pain Eager to get discharged Offers no other complaints today Review of Systems Review of Systems: All systems reviewed & are unremarkable except as noted in Subjective Physical Exam Physical Exam: Physical Exam: Vitals signs as noted above General Appearance:Obese, no apparent distress Head: normocephalic, Atraumatic Eyes: normal inspection, EOMI Neck: supple, Trachea midline Respiratory/Chest: Normal breath sounds, CTA, No accessory muscle use Cardiovascular: S1, S2, +murmur Abdomen/GI:Soft, Non tender, Bowel sounds present Extremities/Musculoskeletal:normal inspection, LE edema, erythema much improved Neurologic/Psych:AAOX3, grossly no focal neurological deficits Skin: normal color, warm Results & Data Results & Data Vital Signs (Past 12 Hours) Vital Signs Temp Pulse Pulse Resp BP BP Pulse Ox 05/01/24 11:15 36.6 C 91 H 18 134/77 95 05/01/24 09:45 72 05/01/24 07:51 05/01/24 07:44 148/71 H 80/52 L 92 05/01/24 07:34 36.4 C L 78 18 84/62 L 92 05/01/24 04:06 36.6 C 49 L 20 111/75 93 O2 Del Method O2 Flow Rate 05/01/24 11:15 Room Air 05/01/24 09:45 05/01/24 07:51 Room Air, Nasal Cannula 05/01/24 07:44 Room Air 05/01/24 07:34 Nasal Cannula 2 05/01/24 04:06 Room Air Laboratory Results Short CBC 05/01/24 Range/Units 07:21 WBC 6.66 (4.8-10.8) K/ul Hgb 14.0 (12.0-16.0) g/dl Hct 46.8 (37.0-47.0) % Plt Count 179 (130-400) K/uL BMP 05/01/24 07:21 Sodium 139 Potassium 4.7 Chloride 103 Carbon Dioxide 31 BUN 18 Creatinine 0.89 Glucose 160 H Calcium 8.9 Liver Function 05/01/24 Range/Units 07:21 Total Bilirubin 0.4 (0.2-1.0) mg/dl AST 27 (13-39) U/L ALT 20 (7-52) U/L Alkaline Phosphatase 103 (34-104) U/L Albumin 3.6 (3.4-5.0) gm/dl (2) HTN (hypertension) Hypertension type: primary hypertension Qualified Code(s): I10 - Essential (primary) hypertension (3) COPD (chronic obstructive pulmonary disease) COPD type: emphysema Emphysema type: unspecified Qualified Code(s): J43.9 - Emphysema, unspecified (6) CAD (coronary artery disease) Coronary Disease-Associated Artery/Lesion type: [place] artery [place] vs. transplanted heart: [place] heart Associated angina: without angina Qualified Code(s): I25.10 - Atherosclerotic heart disease of [place] coronary artery without angina pectoris (7) Type 2 diabetes mellitus with diabetic neuropathy Diabetes mellitus snf insulin use: with snf use Qualified Code(s): E11.40 - Type 2 diabetes mellitus with diabetic neuropathy, unspecified; Z79.4 - detention (current) use of insulin
--- NOTE | 2024-05-01 12:23 | Discharge Summary ---
Date of Service May 01, 2024 Admission HPI Per Admitting Provider This is a 68 y/o female with insulin-requiring DM2, CAD s/p CABG x 3 (06/19), PAD w/hx of emergent revascularlization of the RLE, COPD/emphysema, diabetic retinopathy and macular edema, diabetic neuropathy, hx SVT, HTN, prior CVA, anxiety/depression, dyslipidemia,who presents to the ED on 04/26/2024 with complaints of right lower extremity redness and cellulitis that is not improving. Patient was placed on Doxy and Keflex 10 days ago and reports no improvement. Patient was also given torsemide for lower extremity swelling about 3 days prior. Patient has any fever/chest pain/shortness of breath. Patient 4 L chronically at bedtime. Patient also received 2 injections of IV ceftriaxone at her PCPs office earlier this week. On arrival to the ED, labs are remarkable for NA 135, glucose 169 The patient was given a dose of IV ceftriaxone in the ER will be admitted for further management of cellulitis, duplex scan lower extremity arterialpending Principal Diagnosis Right lower extremity cellulitis Peripheral artery disease Acute on chronic heart failure with preserved EF Discharge Data Allergies Allergy/AdvReac Type Severity Reaction Status Date / Time paroxetine Allergy Severe HIVES;ANAPHYLAXIS-GENERIC Verified 01/18/23 18:54 BRAND nickel Allergy Intermediate RASH Verified 01/18/23 18:54 Penicillins Allergy Intermediate RASH Verified 01/18/23 18:54 Sulfa (Sulfonamide Allergy Intermediate RASH Verified 01/18/23 18:54 Antibiotics) doxepin AdvReac Intermediate HYPOTENSION Verified 01/18/23 18:54 Consultations 04/26/24 11:22 ED Decision to Admit Stat Procedures Performed Laboratory Results WBC 6.66 K/ul (4.8-10.8) 05/01/24 07:21 RBC 5.55 M/uL (4.20-5.40) H 05/01/24 07:21 Hgb 14.0 g/dl (12.0-16.0) 05/01/24 07:21 Hct 46.8 % (37.0-47.0) 05/01/24 07:21 MCV 84.3 fL (80.0-100.0) 05/01/24 07:21 MCH 25.2 pg (25.0-34.0) 05/01/24 07:21 MCHC 29.9 g/dL (32.0-36.0) L 05/01/24 07: RDW Std Deviation 59.1 fL (36.4-46.3) H 05/01/24 07: RDW Coeff of Janice 19.8 % (11.5-14.5) H 05/01/24 07:21 Plt Count 179 K/uL (130-400) 05/01/24 07:21 MPV 10.3 fL (9.4-12.4) 05/01/24 07:21 Immature Gran % (Auto) 0.2 % 05/01/24 07:21 Neut % (Auto) 73.0 % 05/01/24 07:21 Lymph % (Auto) 15.6 % 05/01/24 07:21 [place] % (Auto) 8.1 % 05/01/24 07:21 Eos % (Auto) 2.6 % 05/01/24 07:21 Baso % (Auto) 0.5 % 05/01/24 07:21 Neut # (Auto) 4.87 K/uL (1.40-6.50) 05/01/24 07:21 Lymph # (Auto) 1.04 K/uL (1.20-3.40) L 05/01/24 07:21 [place] # (Auto) 0.54 K/uL (0.11-0.59) 05/01/24 07:21 Eos # (Auto) 0.17 K/uL (0.00-0.50) 05/01/24 07:21 Baso # (Auto) 0.03 K/uL (0.00-0.20) 05/01/24 07:21 Immature Gran # (Auto) 0.01 K/uL (0.01-0.20) 05/01/24 07:21 Polychromasia 1+ 04/26/24 10:15 Anisocytosis Present 04/28/24 08:43 ESR 72 mm/hr (0-30) H 04/29/24 05:19 Heparin Anti-Xa, Unfract 0.34 IU/ml (0.3-0.7) 04/27/24 09:37 Sodium 139 mmol/L (136-145) 05/01/24 07:21 Potassium 4.7 mmol/L (3.5-5.1) 05/01/24 07:21 Chloride 103 mmol/L (98-107) 05/01/24 07:21 Carbon Dioxide 31 mmol/L (21-32) 05/01/24 07:21 Anion Gap 5 (3-11) 05/01/24 07:21 BUN 18 mg/dl (6-23) 05/01/24 07:21 Creatinine 0.89 mg/dl (0.6-1.2) 05/01/24 07:21 Est Cr Clr Drug Dosing 86.6 ml/min 05/01/24 07:21 eGFR 70.57 05/01/24 07:21 BUN/Creatinine Ratio 20.2 (10-20) H 05/01/24 07:21 Glucose 160 mg/dl (70-99(Fasting)) H 05/01/24 07:21 POC Glucose 208 mg/dl (70-99) H 05/01/24 11:58 Calcium 8.9 mg/dl (8.6-10.3) 05/01/24 07:21 Magnesium 1.7 mg/dl (1.7-2.4) 04/27/24 09:37 Total Bilirubin 0.4 mg/dl (0.2-1.0) 05/01/24 07:21 AST 27 U/L (13-39) 05/01/24 07:21 ALT 20 U/L (7-52) 05/01/24 07:21 Alkaline Phosphatase 103 U/L (34-104) 05/01/24 07:21 C-Reactive Protein 0.55 mg/dl (0-0.5) H 04/29/24 05:19 B-Natriuretic Peptide 90 pg/ml (0-100) 04/29/24 09:41 Total Protein 6.8 gm/dl (6.0-8.3) 05/01/24 07:21 Albumin 3.6 gm/dl (3.4-5.0) 05/01/24 07:21 Globulin 3.2 gm/dl (2.5-4.0) 05/01/24 07:21 Albumin/Globulin Ratio 1.1 (0.9-2) 05/01/24 07:21 Nasal Screen MRSA (PCR) Negative (Negative) 04/26/24 12:50 Random Vancomycin 14.0 mcg/ml (10-20) 05/01/24 11:38 Impressions Duplex Scan Lower Extremity Artery 04/26/24 09:58 US arterial duplex LE RT CLINICAL HISTORY: rle pain COMPARISON STUDY: 01/18/2023 FINDINGS: There is severe stenosis or short segment occlusion proximal right common femoral artery. There is no flow seen in the right peroneal artery, presumed occlusion. No other evidence of arterial occlusion seen at the right lower extremity. IMPRESSION: 1. Short segment severe stenosis or occlusion proximal right common femoral artery. 2. Occlusion of the right peroneal artery. ACT 112: Negative or not required by law. Electronically signed by: Juan Jorge M.D. 04/26/2024 12:37 PM Lower Extremity CTA 04/27/24 13:02 HISTORY: Right leg pain. Evaluation for acute thrombosis TECHNIQUE: Right lower extremity CT angiography following IV administration of Optiray 320 IV contrast. Images are presented in axial, sagittal, coronal reformats. Axial and sagittal 3D MIP reconstructions are also provided. COMPARISON: None. FINDINGS: Severe stenosis of the right external iliac artery. The right common femoral artery is patent. The deep femoral artery is patent. The superficial femoral artery is occluded at its origin. Reconstitution is visible at the level of the popliteal artery. There is severe stenosis of the popliteal artery. There is intermittent occlusion and multifocal severe stenosis of the lower extremity arteries with reconstitution. The peroneal artery is visible into the ankle. The reconstituted posterior tibial artery is seen at the level of the ankle. Extensive soft tissue swelling throughout the right lower extremity. The right lower extremity musculature appears well-developed. Colonic diverticulosis. Mild osteoarthritis of the right hip. Mild osteoarthritis of the right knee. IMPRESSION: * Right superficial femoral artery is occluded at its origin and demonstrates multifocal severe atherosclerotic plaque and narrowing. There is reconstitution at the level of the popliteal artery. Multifocal occlusion of the infrapopliteal vessels with severe atherosclerotic plaque. The reconstituted peroneal artery is visible into the ankle. Reconstituted posterior tibial artery is visible at the ankle. Severe soft tissue swelling throughout the right lower extremity. Electronically signed by Robert Patricia 04-27-2024 2:37 PM Chest X-Ray 04/28/24 12:10 XR chest 2V PA/lateral HISTORY: 68 years-old Female increase oxygen requirment from baseline acute hypoxia COMPARISON: 03/02/2023 TECHNIQUE: PA and lateral views of the chest FINDINGS: Cardiac silhouette is mildly enlarged. Atherosclerosis of the aorta. Moderate right hemidiaphragmatic elevation. Atherosclerosis of the aorta. Mild inter stitial coarsening appears chronic. Probable trace pleural effusions. No pneumothorax. Cholecystectomy. Bones appear grossly intact. IMPRESSION: 1. Cardiomegaly with pulmonary vascular congestion. 2. Trace pleural effusions with mild bibasilar atelectasis. ACT 112: Negative or not required by law. The above report was generated using voice recognition software. It may contain grammatical, syntax or spelling errors. Electronically signed by: Gilbert Alvarenga M.D. 04/28/2024 1:24 PM Ordered Studies 04/26/24 09:58 US arterial duplex LE RT Stat 04/27/24 13:02 CTA LE RT w and wo if don [CT angio LE RT w inc wo if don] Urgent Hospital Course (1) Dyslipidemia: (2) HTN (hypertension): (3) COPD (chronic obstructive pulmonary disease): (4) Stenosis of right subclavian artery: (5) PAD (peripheral artery disease): (6) CAD (coronary artery disease): (7) Type 2 diabetes mellitus with diabetic neuropathy: (8) History of stroke: Plan The patient is a 68-year-old female with a PMH of PAD with history of revascularization who presents to the ED on 04/26/2024 with complaints of right lower extremity cellulitis that has not improved on doxycycline and Keflex after 10 days. Right lower extremity cellulitis H/O emergent right lower extremity revascularization in December 2022; bypass occluded. Completed a course of oral doxycycline and Keflex x 10 days on 04/25 with no improvement --Arterial duplex scan showing occlusion of the proximal R common femoral artery and R peroneal artery --CT of the lower extremity was done; known history of severe PAD. Reviewed outpatient vascular surgery note; revascularization options are limited, as patient is allergic to nickel. -- Blood cultures negative to date Continue on Vancomycin for the cellulitis; clinically much improved Continue on Xarelto, aspirin and Lipitor Will transition to oral antibiotics on discharge Acute on chronic CHFpEF Patient was found to be on 4 L of oxygen on admission-weaned off of oxygen- Chest x-ray shows pulmonary edema Echocardiogram from February 2023 showed EF of 60 to 65% with grade 1 diastolic dysfunction Started on Lasix 20 mg every other day Continue Lasix as above Hx [id number] dependent: Managed on Mounjaro/Lantus at home, SSI Monitor blood glucose levels Hx CAD s/p CABG x 3: Hx HTN/CVA Continue aspirin/metoprolol/statin Hx anxiety/depression: Continue amitriptyline/sertraline Urgency incontinence Patient reports a history of urge incontinence; requested Gardner catheter placement while hospitalized. Plan to remove Gardner prior to discharge today Oxybutynin prescription sent to the pharmacy as per patient's request. Code Status DNR/DNI DVT Px: Xarelto Disposition Home Total Time Total Time Spent Total Time Spent (In Minutes): 45 minutes Discharge Plan Discharge Items Patient Disposition: Home - Self-Care Reason For Visit: RLE CELLULITIS Discharge Diagnosis: Right lower extremity cellulitis Peripheral artery disease Acute on chronic heart failure with preserved EF Activity: Resume your previous activity Exercise/Sports: Gradually increase as tolerated Non-emergency contact: Primary Care Provider and Operations Logistics Analyst Call non-emergency contact if: you have any medication questions, your symptoms worsen, your pain is concerning for you and you have a fever Follow-up/Referrals: Jonny Donaldson MD [Primary Care Provider] - (Date & Time 05/09/2024 12:20 PM Provider: Scar Bianchi MD [facility] ) Diet: Carb Consistent or DM2 Addtl Attending Provider Instructions: Follow-up with your primary care physician on 05/09/2024 12:20 PM Follow-up with your aircraft pneudraulic systems mechanic in 3 to 4 weeks as advised -- Complete the antibiotic course doxycycline, cefdinir as prescribed Seek immediate medical attention if your symptoms reoccur or worsen Please take all medications as instructed on discharge list below. Please call if you have any questions or problems. You can reach a [facility] hospitalist on duty at [facility] 24 hours a day by calling [phone] Call your Primary Care doctor if any of the following symptoms or problems start or get worse: * Shortness of breath or difficulty breathing * Wake up at night short of breath * Chest pain * Cough * Swelling of your hands, feet, or legs * More fatigued or tired with your normal activity * Palpitations - sudden fast heart beats WEIGHT * Weigh yourself every morning after using the bathroom. * Use the same scale. * Wear the same amount of clothing. * Write your weight down on a chart. * Call your Primary Care doctor if you gain more than 2-3 pounds in 1-2 days. MEDICATIONS * Use this discharge instruction sheet for medication instructions. * Take your medications at the time your doctor ordered. * Do not skip a dose of your medicines. * If you miss a dose of medicine, take it as soon as possible, but DO NOT DOUBLE A DOSE. * Read your medicine information when you get home. * Know all of the side effects of your medicine. If in doubt, ask your pharmacist * Call your Primary Care doctor's office if you have any side effects. * Be sure all of your doctors know what medicine and herbs you take (including cold, flu, and herbal medicine). Take the following with you to your follow-up doctor appointments: * Weight Chart * Medication List * List of questions Do not drink excessive alcohol, beer or wine. Pending Studies at Discharge: Yes Studies:: Blood cultures Stand-Alone Forms: [facility], Smoking Cessation Medications and DC Order Prescriptions: New oxybutynin chloride 5 mg tablet extended release 24hr 5 mg PO DAILY Qty: 14 0RF furosemide 20 mg Tablet 20 mg PO Q48H Qty: 30 0RF clotrimazole 1 % Cream 1 applic EXT BID Qty: 30 0RF Rx Instructions: Apply to right and left groin twice a day for 10 days doxycycline hyclate 100 mg tablet 100 mg PO BID 10 Days Qty: 20 0RF cefdinir 300 mg capsule 300 mg PO BID 5 Days Qty: 10 0RF Continued atorvastatin 80 mg tablet 80 mg PO DAILY metformin 850 mg tablet 850 mg PO TIDM tramadol 50 mg tablet 50 - 100 mg PO Q6H PRN (Reason: Pain) amitriptyline 50 mg tablet 50 mg PO HS lorazepam 0.5 mg tablet 0.5 mg PO Q8H PRN (Reason: ANXIETY/INSOMNIA) ropinirole 0.5 mg tablet 0.5 mg PO HS Rx Instructions: TAKE BEFORE NAPS & HS. gabapentin 300 mg capsule 300 mg PO BID Rx Instructions: TAKES AT LUNCH & HS aspirin 81 mg Tablet,Chewable 81 mg PO QAM metoprolol succinate 25 mg tablet extended release 24 hr 25 mg PO QAM albuterol sulfate 90 mcg/actuation HFA aerosol inhaler 2 puff INHALATION Q4H PRN (Reason: COUGH/WHEEZING) fluticasone propionate 50 mcg/actuation Lerna,Suspension 2 spray INTRANASAL BID PRN (Reason: Congestion) Rx Instructions: administer into each nostril sertraline 50 mg tablet 200 mg PO QAM insulin aspart U-100 [Novolog FlexPen U-100 Insulin] 100 unit/mL (3 mL) insulin pen 15 unit SUBCUT TIDM insulin glargine [Basaglar KwikPen U-100 Insulin] 100 unit/mL (3 mL) insulin pen 54 unit SUBCUT HS Krill Oil ([place] 3 and 6) 1000-130(40-80) mg Capsule 1 cap PO QAM liraglutide [Victoza 2-Jayy] 0.6 mg/0.1 mL (18 mg/3 mL) pen injector 1.2 mg SUBCUT DAILY PRN (Reason: FASTING BSG > 150) Jardiance 10 mg tablet 10 mg PO QAM Xarelto 2.5 mg tablet 2.5 mg PO BID Azo Cranberry 250 mg Tablet,Chewable 250 mg PO DAILY Probiotic Acidophilus 250 million cell Capsule 1,000 mmu cells PO DAILY Saccharomyces boulardii [Florastor] 250 mg capsule 250 mg PO BID Qty: 20 0RF Rx Instructions: swallow whole Discharge Orders: Discharge Order (Routine); Ordered 05/01/24 Ordered By: Ashutosh Wilson Admission Data Admit Date/Time: 04/26/24 11:33 Attending Provider: Ashutosh Wilson Admit Provider: Ashutosh Wilson Primary Care Provider: Jonny Donaldson Other Providers: Ashutosh Wilson
[2024-05-01 13:29] VITALS: BP 148/71
== END 2024-05-01 14:28 | disposition home or self-care (01) | DRG 602 ==
LOC: ED 09:35 → SUATTDRO 11:33 → EDINP 11:33 → 2N 04-27 13:24

== ENCOUNTER 2024-05-09 12:47 | Inpatient (IN) ==
--- NOTE | 2024-05-09 13:43 | Emergency Department Note ---
Impression & Plan Cellulitis of right leg, Hypomagnesemia ED Provider Note HISTORY OF PRESENT ILLNESS: Patient is a 68-year-old female presenting with right leg pain. Patient was admitted to the hospital recently for cellulitis of her right lower extremity. Patient reports she was just discharged 4 days ago. She states that she has been taking her Doxy that she was prescribed at discharge. Reports that her redness and swelling had initially improved at time of discharge, but in the last 3 to 4 days she has developed increasing pain and redness around 2 sores on her right lower extremity. She denies any injury to the area. She states that the right anterior ankle wound has been there chronically, but has gotten bigger in size and has surrounding erythema and significant pain. She also locates some pain and erythema around the wound on her right lateral lower leg. Denies any fevers. Does report nausea. States that she took tramadol the last few days without any relief in her pain. She reports that she was instructed that if there is any changes to her leg or increasing pain that she should present to the emergency department. ROS: as above PHYSICAL EXAM: Constitutional: Patient appears in no acute distress. HENT: Head: Normocephalic and atraumatic. Eyes: EOMI, PERRL Mouth/Throat: Mucous membranes moist. Neck: Trachea midline. Neck supple. Cardiovascular: RRR, No murmurs, rubs or gallops. Intact distal pulses. Pulmonary/Chest: No respiratory distress. Breath sounds clear and equal bilaterally. No wheezes or rales. Abdominal: Abdomen soft, no tenderness, rebound or guarding. Musculoskeletal: - RLE: Lower extremity is erythematous and slightly swollen. No palpable crepitus. Diffusely tender to palpation. Patient has a white appearing wound to the anterior ankle that is slightly fluctuant. There is surrounding erythema to this area. Good cap refill in all 5 toes. Skin: Warm and dry. No rash, erythema, pallor or cyanosis Psychiatric: Appropriate mood and affect for situation. Neurological: Alert and keenly responsive. CN II-XII grossly intact, moving all extremities equally and fully. MDM: - Vitals signs stable. - History obtained via patient. History as above. - Chronic conditions affecting care: DM-2; HTN; HLD; morbid obesity; COPD; PAD; CAD - Differential diagnoses include, but are not limited to: Necrotizing fasciitis; cellulitis; lymphedema; ischemic leg - Order placed for continuous cardiac monitoring. At this time, monitor showed rate of 80 bpm with normal sinus rhythm, per my interpretation. - External medical records reviewed. Discharge summary dated 05/01/2024 was reviewed. Patient was admitted for right lower extremity cellulitis after failing outpatient doxycycline and Keflex. - Laboratory workup interpreted by myself showed normal WBC; stable electrolytes other than hypomagnesemia (Mg 1.5); elevated lactate (3.2); normal CK; normal procalcitonin - Patient given IV vancomycin and rocephin for antibiotic coverage - Repeat lactate persistently elevated at 2.7 - Patient given 1g IV magnesium for electrolyte replacement - Discussion was had with case management associate about patient's case and need for admission - Hospitalist consulted for admission - [facility] ASSESSMENT AND PLAN: Diagnosis: Right lower leg cellulitis; hypomagnesemia Plan: Admit Past Med/Surg History Problem List (Updated 05/09/24 @ 15:45 by Jenny Cary MD) Hypomagnesemia (Acute) Cellulitis of right leg (Acute) Acute hyperglycemia (Acute) Cellulitis (Acute) Sepsis (Acute) Hypomagnesemia Diabetic ulcer of right great toe Demand ischemia Severe sepsis Nocturnal hypoxemia due to emphysema currently using 4L O2 at night Dyslipidemia HTN (hypertension) Morbid obesity due to excess calories COPD (chronic obstructive pulmonary disease) Stenosis of right subclavian artery (Acute) PAD (peripheral artery disease) (Acute) CAD (coronary artery disease) Type 2 diabetes mellitus with diabetic neuropathy Medical History Carotid artery stenosis GERD without esophagitis History of stroke History of nonmelanoma skin cancer Right inguinal hernia Sensorineural hearing loss SVT (supraventricular tachycardia) Urge incontinence Diabetic macular edema Diabetic retinopathy, nonproliferative Surgical History History of cholecystectomy Hx of sinus surgery Status post breast lumpectomy Hx of tubal ligation H/O: hysterectomy H/O cardiac radiofrequency ablation History of right-sided carotid endarterectomy S/P carpal tunnel release S/P femoropopliteal bypass surgery S/P drug eluting coronary stent placement S/P CABG x 3 Family History Other Cancer Diabetes Hypertension Social History Smoking Status: Former smoker Hx Alcohol Use: No Hx Substance Use: No Preferred Language: Irish Communication Ability: Effective Environmental Health Nurse Required: No Beliefs That Will Affect Care: None Current Living Situation: Spouse Feels Safe at Home: Yes Assistive Devices: None and Cane Allergies Allergies Allergy/AdvReac Type Severity Reaction Status Date / Time paroxetine Allergy Severe HIVES;ANAPHYLAXIS-GENERIC Verified 01/18/23 18:54 BRAND nickel Allergy Intermediate RASH Verified 01/18/23 18:54 Penicillins Allergy Intermediate RASH Verified 01/18/23 18:54 Sulfa (Sulfonamide Allergy Intermediate RASH Verified 01/18/23 18:54 Antibiotics) doxepin AdvReac Intermediate HYPOTENSION Verified 01/18/23 18:54 Home Meds Home Medications Medication Instructions Recorded Confirmed albuterol sulfate 90 mcg/actuation 2 puff inhalation Q4H PRN 01/18/23 05/09/24 aerosol inhaler COUGH/WHEEZING amitriptyline 50 mg tablet 50 mg PO HS 01/18/23 05/09/24 aspirin 81 mg chewable tablet 81 mg PO QAM 01/18/23 05/09/24 atorvastatin 80 mg tablet 80 mg PO DAILY 01/18/23 05/09/24 empagliflozin 10 mg tablet 10 mg PO QAM 01/18/23 05/09/24 (Jardiance) fluticasone propionate 50 2 spray intranasal BID PRN 01/18/23 05/09/24 mcg/actuation nasal Congestion spray,suspension gabapentin 300 mg capsule 300 mg PO BID 01/18/23 05/09/24 insulin aspart U-100 100 unit/mL 15 unit subcut TIDM 01/18/23 05/09/24 (3 mL) subcutaneous pen (Novolog FlexPen U-100 Insulin aspart) insulin glargine 100 unit/mL (3 54 unit subcut HS 01/18/23 05/09/24 mL) subcutaneous pen (Basaglar KwikPen U-100 Insulin) krill oil 1,000 mg-om3 130 mg-dha 1 cap PO QAM 01/18/23 05/09/24 40 mg-epa 80 [id number] cap (Krill Oil (Thornton 3 and 6)) liraglutide 0.6 mg/0.1 mL (18 mg/3 1.2 mg subcut DAILY PRN FASTING 01/18/23 05/09/24 mL) subcutaneous pen injector BSG > 150 (Victoza 2-Jayy) lorazepam 0.5 mg tablet 0.5 mg PO Q8H PRN ANXIETY/INSOMNIA 01/18/23 05/09/24 metformin 850 mg tablet 850 mg PO TIDM 01/18/23 05/09/24 metoprolol succinate 25 mg 25 mg PO QAM 01/18/23 05/09/24 tablet,extended release 24 hr rivaroxaban 2.5 mg tablet (Xarelto) 2.5 mg PO BID 01/18/23 05/09/24 ropinirole 0.5 mg tablet 0.5 mg PO HS 01/18/23 05/09/24 sertraline 50 mg tablet 200 mg PO QAM 01/18/23 05/09/24 tramadol 50 mg tablet 50 - 100 mg PO Q6H PRN Pain 01/18/23 05/09/24 Lactobacillus acidophilus 250 1,000 mmu cells PO DAILY 03/02/23 05/09/24 million cell capsule (Probiotic Acidophilus) cranberry fruit concentrate 250 mg 250 mg PO DAILY 03/02/23 05/09/24 chewable tablet (Azo Cranberry) Previous Rx's Medication Instructions Recorded Saccharomyces boulardii 250 mg 250 mg PO BID #20 caps 06/01/23 capsule (Florastor) oxybutynin chloride 5 mg 5 mg PO DAILY #14 tabs 04/30/24 tablet,extended release 24 hr clotrimazole 1 % topical cream 1 applic EXT BID #30 grams 05/01/24 doxycycline hyclate 100 mg tablet 100 mg PO BID 10 days #20 tabs 05/01/24 furosemide 20 mg tablet 20 mg PO Q48H #30 tabs 05/01/24 Results & Data (ED) Vital Signs Vital Signs - 24 hr 05/09/24 12:51 05/09/24 13:22 05/09/24 14:02 Temperature 36.4 C L Temperature Source Temporal Artery Scan Pulse Rate 79 Pulse Rate [Apical] 82 Respiratory Rate 18 22 Blood Pressure 124/62 Blood Pressure [Right Arm] 123/63 Blood Pressure Mean 82 Blood Pressure Mean [Right Arm] 83 Blood Pressure Position [Right Arm] Sitting Pulse Oximetry 92 95 97 Oxygen Delivery Method Room Air Room Air Room Air Sepsis Recent Fever Within 48 Hours No Sepsis New/Unexplained Change in Mental Status No Sepsis Action Taken by Nursing No Action Required 05/09/24 14:06 Temperature Temperature Source Pulse Rate 79 Pulse Rate [Apical] Respiratory Rate Blood Pressure Blood Pressure [Right Arm] Blood Pressure Mean Blood Pressure Mean [Right Arm] Blood Pressure Position [Right Arm] Pulse Oximetry Oxygen Delivery Method Sepsis Recent Fever Within 48 Hours Sepsis New/Unexplained Change in Mental Status Sepsis Action Taken by Nursing Laboratory Data 05/09/24 13:30 05/09/24 13:30 Lab Results 05/09/24 05/09/24 Range/Units 13:30 15:13 WBC 8.62 (4.8-10.8) K/ul RBC 5.62 H (4.20-5.40) M/uL Hgb 14.1 (12.0-16.0) g/dl Hct 46.9 (37.0-47.0) % MCV 83.5 (80.0-100.0) fL MCH 25.1 (25.0-34.0) pg MCHC 30.1 L (32.0-36.0) g/dL RDW Std Deviation 57.5 H (36.4-46.3) fL RDW Coeff of Janice 19.5 H (11.5-14.5) % Plt Count 175 (130-400) K/uL MPV 10.9 (9.4-12.4) fL Immature Gran % (Auto) 0.2 % Neut % (Auto) 77.1 % Lymph % (Auto) 13.3 % [place] % (Auto) 6.3 % Eos % (Auto) 2.8 % Baso % (Auto) 0.3 % Neut # (Auto) 6.64 H (1.40-6.50) K/uL Lymph # (Auto) 1.15 L (1.20-3.40) K/uL [place] # (Auto) 0.54 (0.11-0.59) K/uL Eos # (Auto) 0.24 (0.00-0.50) K/uL Baso # (Auto) 0.03 (0.00-0.20) K/uL Immature Gran # (Auto) 0.02 (0.01-0.20) K/uL PT 10.5 (9.0-12.0) Seconds INR 1.0 (0.9-1.1) Sodium 137 (136-145) mmol/L Potassium 5.0 (3.5-5.1) mmol/L Chloride 100 (98-107) mmol/L Carbon Dioxide 30 (21-32) mmol/L Anion Gap 7 (3-11) BUN 17 (6-23) mg/dl Creatinine 0.93 (0.6-1.2) mg/dl Est Cr Clr Drug Dosing 80.5 ml/min eGFR 66.95 BUN/Creatinine Ratio 18.3 (10-20) Glucose 118 H (70-99(Fasting)) mg/dl Lactate 3.2 H* 2.7 H* (0.4-2.0) mmol/L Calcium 9.3 (8.6-10.3) mg/dl Magnesium 1.5 L (1.7-2.4) mg/dl Total Bilirubin 0.3 (0.2-1.0) mg/dl AST 21 (13-39) U/L ALT 18 (7-52) U/L Alkaline Phosphatase 109 H (34-104) U/L Total Creatine Kinase 90 (26-192) U/L Total Protein 7.0 (6.0-8.3) gm/dl Albumin 3.8 (3.4-5.0) gm/dl Globulin 3.2 (2.5-4.0) gm/dl Albumin/Globulin Ratio 1.2 (0.9-2) Procalcitonin 0.05 (0-0.5) ng/ml Administered Medications Vancomycin HCl 2,250 mg/ (Sodium Chloride) 545 mls @ 200 mls/hr IV NOW ONE Stop: 05/09/24 17:08 Last Admin: 05/09/24 15:09 Dose: 200 mls/hr Documented By: QGV Discontinued Medications Fentanyl Citrate (Fentanyl Citrate Pf 100 Mcg/2 Ml Vial) 50 mcg IV NOW STA Stop: 05/09/24 13:25 Last Admin: 05/09/24 14:03 Dose: Not Given Documented By: DS Ceftriaxone Sodium (Rocephin) 2,000 mg in 50 mls @ 100 mls/hr IV NOW STA Stop: 05/09/24 14:54 Last Infusion: 05/09/24 15:21 Dose: Infused Documented By: Admin: 05/09/24 14:32 Dose: 100 mls/hr Documented By: FADI Discharge Plan Visit Data Chief Complaint: Skin Problem Stated Complaint: RIGHT LEG SORES ED Provider: Jenny Cary Discharge Problem: Cellulitis of right leg, Hypomagnesemia Forms Stand Alone Forms: My [facility] Prescriptions Prescriptions: No Action atorvastatin 80 mg tablet 80 mg PO DAILY metformin 850 mg tablet 850 mg PO TIDM tramadol 50 mg tablet 50 - 100 mg PO Q6H PRN (Reason: Pain) amitriptyline 50 mg tablet 50 mg PO HS lorazepam 0.5 mg tablet 0.5 mg PO Q8H PRN (Reason: ANXIETY/INSOMNIA) ropinirole 0.5 mg tablet 0.5 mg PO HS Rx Instructions: TAKE BEFORE NAPS & HS. gabapentin 300 mg capsule 300 mg PO BID Rx Instructions: TAKES AT LUNCH & HS aspirin 81 mg Tablet,Chewable 81 mg PO QAM metoprolol succinate 25 mg tablet extended release 24 hr 25 mg PO QAM albuterol sulfate 90 mcg/actuation HFA aerosol inhaler 2 puff INHALATION Q4H PRN (Reason: COUGH/WHEEZING) fluticasone propionate 50 mcg/actuation [place],Suspension 2 spray INTRANASAL BID PRN (Reason: Congestion) Rx Instructions: administer into each nostril sertraline 50 mg tablet 200 mg PO QAM insulin aspart U-100 [Novolog FlexPen U-100 Insulin] 100 unit/mL (3 mL) insulin pen 15 unit SUBCUT TIDM insulin glargine [Basaglar KwikPen U-100 Insulin] 100 unit/mL (3 mL) insulin pen 54 unit SUBCUT HS Krill Oil (Thornton 3 and 6) 1000-130(40-80) mg Capsule 1 cap PO QAM liraglutide [Victoza 2-Jayy] 0.6 mg/0.1 mL (18 mg/3 mL) pen injector 1.2 mg SUBCUT DAILY PRN (Reason: FASTING BSG > 150) Jardiance 10 mg tablet 10 mg PO QAM Xarelto 2.5 mg tablet 2.5 mg PO BID Azo Cranberry 250 mg Tablet,Chewable 250 mg PO DAILY Probiotic Acidophilus 250 million cell Capsule 1,000 mmu cells PO DAILY Saccharomyces boulardii [Florastor] 250 mg capsule 250 mg PO BID Qty: 20 0RF Rx Instructions: swallow whole oxybutynin chloride 5 mg tablet extended release 24hr 5 mg PO DAILY Qty: 14 0RF furosemide 20 mg Tablet 20 mg PO Q48H Qty: 30 0RF clotrimazole 1 % Cream 1 applic EXT BID Qty: 30 0RF Rx Instructions: Apply to right and left groin twice a day for 10 days doxycycline hyclate 100 mg tablet 100 mg PO BID 10 Days Qty: 20 0RF Referrals Referrals: Jonny Donaldson MD [Primary Care Provider] -
[2024-05-09 13:48] LABS: Basophils # (auto) 0.03 K/uL (0.00-0.20); Basophils % (auto) 0.3 %; Eosinophils # (auto) 0.24 K/uL (0.00-0.50); Eosinophils % (auto) 2.8 %; Hematocrit (blood only) 46.9 % (37.0-47.0); Hemoglobin 14.1 g/dl (12.0-16.0); Immature Granulocytes # (auto) 0.02 K/uL (0.01-0.20); Immature Granulocytes % (auto) 0.2 %; Lymphocytes # (auto) 1.15 K/uL (1.20-3.40); Lymphocytes % (auto) 13.3 %; Mean Corpuscular Hemoglobin 25.1 pg (25.0-34.0); Mean Corpuscular Hgb Conc 30.1 g/dL (32.0-36.0); Mean Corpuscular Volume 83.5 fL (80.0-100.0); Mean Platelet Volume 10.9 fL (9.4-12.4); Monocytes # (auto) 0.54 K/uL (0.11-0.59); Monocytes % (auto) 6.3 %; Neutrophils # (auto) 6.64 K/uL (1.40-6.50); Neutrophils % (auto) 77.1 %; Platelet Count 175 K/uL (130-400); RDW Coefficient of Variation 19.5 % (11.5-14.5); RDW Standard Deviation 57.5 fL (36.4-46.3); Red Blood Count 5.62 M/uL (4.20-5.40); White Blood Count 8.62 K/ul (4.8-10.8)
[2024-05-09] MEDS: fentaNYL citrate PF 100 MCG/2 ML VIAL IV STA (14:03)
[2024-05-09 14:09] LABS: Alanine Aminotransferase 18 U/L (7-52); Albumin Globulin Ratio 1.2 (0.9-2); Albumin Level 3.8 gm/dl (3.4-5.0); Alkaline Phosphatase 109 U/L (34-104); Anion Gap 7 (3-11); Aspartate Aminotransferase 21 U/L (13-39); BUN Creatinine Ratio 18.3 (10-20); Bilirubin,Total 0.3 mg/dl (0.2-1.0); Blood Urea Nitrogen 17 mg/dl (6-23); Calcium 9.3 mg/dl (8.6-10.3); Carbon Dioxide 30 mmol/L (21-32); Chloride 100 mmol/L (98-107); Creatine Kinase 90 U/L (26-192); Creatinine Clr Calc Pharmacy 80.5 ml/min; Globulin 3.2 gm/dl (2.5-4.0); Glucose 118 mg/dl (70-99(Fasting)); Magnesium 1.5 mg/dl (1.7-2.4); Sodium 137 mmol/L (136-145)
[2024-05-09 14:11] LABS: Prothrombin Time 10.5 Seconds (9.0-12.0)
[2024-05-09] MEDS ORDERED: VANCOMYCIN CONSULT ACTIVE PRN (14:25)
[2024-05-09] MEDS: cefTRIAXone SODIUM 2,000 MG/50 ML BAG IV STA (14:32)
[2024-05-09] MEDS: VANCOMYCIN HCL 2,250 MG in SODIUM CHLORIDE 0.9% 500 ML IV ONE (15:09)
[2024-05-09] MEDS ORDERED: ALBUTEROL HFA 8 GM INHALER INH PRN (15:42)
[2024-05-09] MEDS ORDERED: LORazepam 0.5 MG TAB PO PRN (15:42)
--- NOTE | 2024-05-09 15:50 | History & Physical Report ---
Date of Service May 09, 2024 Assessment & Plan (1) Hypomagnesemia: (2) Carotid artery stenosis: (3) Cellulitis of right leg: (4) Dyslipidemia: (5) HTN (hypertension): (6) COPD (chronic obstructive pulmonary disease): (7) PAD (peripheral artery disease): (8) CAD (coronary artery disease): (9) Type 2 diabetes mellitus with diabetic neuropathy: Plan The patient is a 68-year-old female with a PMH of PAD with history of revascularization who presents to the ED on 05/09/2024 with complaints of worsening right lower extremity cellulitis, recently discharged on oral antibiotics on 05/01/2024. Right lower extremity cellulitis Severe stenosis/possible occlusion of proximal right common femoral artery Occlusion of right peroneal artery History of severe PAD Completed a course of oral doxycycline and Keflex x 10 days on 04/25 with no improvement Discharged on 05/01/24 after 5 days of IV antibiotics on oral Doxy and Keflexsymptoms then worsened Will initiate IV ceftriaxone/Vanco, no leukocytosis, afebrile, lactic acidosis noted and improving Due to recurrent cellulitis and failure of outpatient treatment, will consult ID for further recommendations Arterial duplex scan showing occlusion of the proximal R common femoral artery and R peroneal artery Limited options for revascularization per vascular with allergy to nickel Imaging from December 2022 with similar findings Hx [id number] requiring: Managed on Mounjaro/Lantus at home, SSI/4 times daily BGM, diabetic pharmacy consult Hx CAD s/p CABG x 3: Hx HTN/CVA Continue aspirin/metoprolol/statin Hx anxiety/depression: Continue amitriptyline/sertraline DNR/DNI DVT prophylaxis: Xarelto A total of 60 minutes was spent on chart review/reviewing diagnostic data/discussion with consultants/facilitating plan of care History of Present Illness Chief Complaint: right lower extremity pain and swelling Primary Care Provider: Jonny Donaldson MD This is a 68 y/o female with insulin-requiring DM2, CAD s/p CABG x 3 (06/19), PAD w/hx of emergent revascularlization of the RLE, COPD/emphysema, diabetic retinopathy and macular edema, diabetic neuropathy, hx SVT, HTN, prior CVA, anxiety/depression, dyslipidemia,who presents to the ED on 05/09/2024 after being recently discharged for recurrent right lower extremity cellulitis. Patient reports after being discharged, she developed open sores and worsening pain that is not controlled with her home dose of tramadol. Patient reports that a hard covering appeared over the anterior aspect of her leg. She was concerned with a possible blister and underlying infection. She denies any fever/chills at home. Patient was recently discharged on 05/01/2024 Doxy and Keflex after being hospitalized for right lower extremity cellulitis with improvement on IV Vanco and ceftriaxone. Arterial duplex of the right lower extremity on 04/26 showed: --occlusion of the proximal R common femoral artery and R peroneal artery --CT of the lower extremity was done; known history of severe PAD. Reviewed outpatient vascular surgery note; revascularization options are limited, as patient is allergic to nickel. At the time of discharge, the patient's wound cultures and blood cultures were negative. On arrival to the ED today, labs are remarkable for lactic acid 3.2, repeat 2.7, magnesium 1.5, procalcitonin is negative The patient will be admitted for further management of recurrent right lower extremity cellulitis Allergies Allergy/AdvReac Type Severity Reaction Status Date / Time paroxetine Allergy Severe HIVES;ANAPHYLAXIS-GENERIC Verified 01/18/23 18:54 BRAND nickel Allergy Intermediate RASH Verified 01/18/23 18:54 Penicillins Allergy Intermediate RASH Verified 01/18/23 18:54 Sulfa (Sulfonamide Allergy Intermediate RASH Verified 01/18/23 18:54 Antibiotics) doxepin AdvReac Intermediate HYPOTENSION Verified 01/18/23 18:54 Home Medications Medication Instructions Recorded Confirmed Type albuterol sulfate 90 mcg/actuation 2 puff inhalation Q4H PRN 01/18/23 05/09/24 History aerosol inhaler COUGH/WHEEZING amitriptyline 50 mg tablet 50 mg PO HS 01/18/23 05/09/24 History aspirin 81 mg chewable tablet 81 mg PO QAM 01/18/23 05/09/24 History atorvastatin 80 mg tablet 80 mg PO DAILY 01/18/23 05/09/24 History empagliflozin 10 mg tablet 10 mg PO QAM 01/18/23 05/09/24 History (Jardiance) fluticasone propionate 50 2 spray intranasal BID PRN 01/18/23 05/09/24 History mcg/actuation nasal Congestion spray,suspension gabapentin 300 mg capsule 300 mg PO BID 01/18/23 05/09/24 History insulin aspart U-100 100 unit/mL 15 unit subcut TIDM 01/18/23 05/09/24 History (3 mL) subcutaneous pen (Novolog FlexPen U-100 Insulin aspart) insulin glargine 100 unit/mL (3 54 unit subcut HS 01/18/23 05/09/24 History mL) subcutaneous pen (Basaglar KwikPen U-100 Insulin) krill oil 1,000 mg-om3 130 mg-dha 1 cap PO QAM 01/18/23 05/09/24 History 40 mg-epa 80 nv-bm2-ixo-astax cap (Krill Oil (Edward 3 and 6)) liraglutide 0.6 mg/0.1 mL (18 mg/3 1.2 mg subcut DAILY PRN FASTING 01/18/23 05/09/24 History mL) subcutaneous pen injector BSG > 150 (Victoza 2-Jayy) lorazepam 0.5 mg tablet 0.5 mg PO Q8H PRN ANXIETY/INSOMNIA 01/18/23 05/09/24 History metformin 850 mg tablet 850 mg PO TIDM 01/18/23 05/09/24 History metoprolol succinate 25 mg 25 mg PO QAM 01/18/23 05/09/24 History tablet,extended release 24 hr rivaroxaban 2.5 mg tablet (Xarelto) 2.5 mg PO BID 01/18/23 05/09/24 History ropinirole 0.5 mg tablet 0.5 mg PO HS 01/18/23 05/09/24 History sertraline 50 mg tablet 200 mg PO QAM 01/18/23 05/09/24 History tramadol 50 mg tablet 50 - 100 mg PO Q6H PRN Pain 01/18/23 05/09/24 History Lactobacillus acidophilus 250 1,000 mmu cells PO DAILY 03/02/23 05/09/24 History million cell capsule (Probiotic Acidophilus) cranberry fruit concentrate 250 mg 250 mg PO DAILY 03/02/23 05/09/24 History chewable tablet (Azo Cranberry) Saccharomyces boulardii 250 mg 250 mg PO BID #20 caps 06/01/23 05/09/24 Rx capsule (Florastor) oxybutynin chloride 5 mg 5 mg PO DAILY #14 tabs 04/30/24 05/09/24 Rx tablet,extended release 24 hr clotrimazole 1 % topical cream 1 applic EXT BID #30 grams 05/01/24 05/09/24 Rx doxycycline hyclate 100 mg tablet 100 mg PO BID 10 days #20 tabs 05/01/24 05/09/24 Rx furosemide 20 mg tablet 20 mg PO Q48H #30 tabs 05/01/24 05/09/24 Rx Past Med/Surg History Problem List (Updated 05/09/24 @ 15:45 by Jenny Cary MD) Hypomagnesemia (Acute) Cellulitis of right leg (Acute) Acute hyperglycemia (Acute) Cellulitis (Acute) Sepsis (Acute) Hypomagnesemia Diabetic ulcer of right great toe Demand ischemia Severe sepsis Nocturnal hypoxemia due to emphysema currently using 4L O2 at night Dyslipidemia HTN (hypertension) Morbid obesity due to excess calories COPD (chronic obstructive pulmonary disease) Stenosis of right subclavian artery (Acute) PAD (peripheral artery disease) (Acute) CAD (coronary artery disease) Type 2 diabetes mellitus with diabetic neuropathy Medical History Carotid artery stenosis GERD without esophagitis History of stroke History of nonmelanoma skin cancer Right inguinal hernia Sensorineural hearing loss SVT (supraventricular tachycardia) Urge incontinence Diabetic macular edema Diabetic retinopathy, nonproliferative Surgical History History of cholecystectomy Hx of sinus surgery Status post breast lumpectomy Hx of tubal ligation H/O: hysterectomy H/O cardiac radiofrequency ablation History of right-sided carotid endarterectomy S/P carpal tunnel release S/P femoropopliteal bypass surgery S/P drug eluting coronary stent placement S/P CABG x 3 Family History Other Cancer Diabetes Hypertension Social History Smoking Status: Former smoker Tobacco Type: Cigarettes Second Hand Exposure: No; Do You Dip or Chew Tobacco: No; Tobacco Cessation Education Requested by Patient: No Hx Alcohol Use: No Hx Substance Use: No Preferred Language: Bulgarian Communication Ability: Effective Managed Services Consultant Required: No Beliefs That Will Affect Care: None Current Living Situation: Spouse and Family Other Information That Helps Us Care for You: No Feels Safe at Home: Yes Safety Concerns: Feels Safe At This Time Assistive Devices: Lift Chair, Oxygen - at Night and Scooter/Electric Scooter Review of Systems Review of Systems: All systems reviewed & are unremarkable except as noted in HPI & below Physical Exam Constitutional: WD/WN, vitals as above Eyes: PERRL, conjunctivae normal, anicteric sclerae ENMT: external ear and nose normal, oropharynx normal Neck: trachea midline, no thyromegaly Respiratory: normal respiratory effort, lungs clear to auscultation Cardiovascular: RRR, no murmur, no edema Gastrointestinal (Abdomen): normal bowel sounds, soft, nontender, no hepatosplenomegaly Musculoskeletal: no cyanosis or clubbing, extremities motor strength 5/5 ( Right lower extremity with erythema and scabbed over ulceration) Neurologic: PERRL, EOMI, accommodation nl, no face palsy, no dysarthria Psychiatric: A+Ox3, euthymic affect Lymphatic: no cervical or axillary lymphadenopathy Results & Data Results & Data Vital Signs (Past 12 Hours) Vital Signs Temp Pulse Pulse Resp BP BP Pulse Ox 05/09/24 14:06 79 05/09/24 14:02 82 22 123/63 97 05/09/24 13:22 95 05/09/24 12:51 36.4 C L 79 18 124/62 92 O2 Del Method 05/09/24 14:06 05/09/24 14:02 Room Air 05/09/24 13:22 Room Air 05/09/24 12:51 Room Air Diagnostic Findings Laboratory Results WBC 8.62 K/ul (4.8-10.8) 05/09/24 13:30 RBC 5.62 M/uL (4.20-5.40) H 05/09/24 13:30 Hgb 14.1 g/dl (12.0-16.0) 05/09/24 13:30 Hct 46.9 % (37.0-47.0) 05/09/24 13:30 MCV 83.5 fL (80.0-100.0) 05/09/24 13:30 MCH 25.1 pg (25.0-34.0) 05/09/24 13:30 MCHC 30.1 g/dL (32.0-36.0) L 05/09/24 13:30 RDW Std Deviation 57.5 fL (36.4-46.3) H 05/09/24 13: RDW Coeff of Janice 19.5 % (11.5-14.5) H 05/09/24 13:30 Plt Count 175 K/uL (130-400) 05/09/24 13: MPV 10.9 fL (9.4-12.4) 05/09/24 13:30 Immature Gran % (Auto) 0.2 % 05/09/24 13:30 Neut % (Auto) 77.1 % 05/09/24 13:30 Lymph % (Auto) 13.3 % 05/09/24 13:30 [place] % (Auto) 6.3 % 05/09/24 13:30 Eos % (Auto) 2.8 % 05/09/24 13:30 Baso % (Auto) 0.3 % 05/09/24 13:30 Neut # (Auto) 6.64 K/uL (1.40-6.50) H 05/09/24 13:30 Lymph # (Auto) 1.15 K/uL (1.20-3.40) L 05/09/24 13:30 [place] # (Auto) 0.54 K/uL (0.11-0.59) 05/09/24 13:30 Eos # (Auto) 0.24 K/uL (0.00-0.50) 05/09/24 13:30 Baso # (Auto) 0.03 K/uL (0.00-0.20) 05/09/24 13:30 Immature Gran # (Auto) 0.02 K/uL (0.01-0.20) 05/09/24 13:30 PT 10.5 Seconds (9.0-12.0) 05/09/24 13:30 INR 1.0 (0.9-1.1) 05/09/24 13:30 Sodium 137 mmol/L (136-145) 05/09/24 13:30 Potassium 5.0 mmol/L (3.5-5.1) 05/09/24 13:30 Chloride 100 mmol/L (98-107) 05/09/24 13:30 Carbon Dioxide 30 mmol/L (21-32) 05/09/24 13:30 Anion Gap 7 (3-11) 05/09/24 13:30 BUN 17 mg/dl (6-23) 05/09/24 13:30 Creatinine 0.93 mg/dl (0.6-1.2) 05/09/24 13:30 Est Cr Clr Drug Dosing 80.5 ml/min 05/09/24 13:30 eGFR 66.95 05/09/24 13:30 BUN/Creatinine Ratio 18.3 (10-20) 05/09/24 13:30 Glucose 118 mg/dl (70-99(Fasting)) H 05/09/24 13:30 POC Glucose 72 mg/dl (70-99) 05/09/24 15:50 Lactate 2.7 mmol/L (0.4-2.0) H* 05/09/24 15:13 Calcium 9.3 mg/dl (8.6-10.3) 05/09/24 13:30 Magnesium 1.5 mg/dl (1.7-2.4) L 05/09/24 13:30 Total Bilirubin 0.3 mg/dl (0.2-1.0) 05/09/24 13:30 AST 21 U/L (13-39) 05/09/24 13:30 ALT 18 U/L (7-52) 05/09/24 13:30 Alkaline Phosphatase 109 U/L (34-104) H 05/09/24 13:30 Total Creatine Kinase 90 U/L (26-192) 05/09/24 13:30 Total Protein 7.0 gm/dl (6.0-8.3) 05/09/24 13:30 Albumin 3.8 gm/dl (3.4-5.0) 05/09/24 13:30 Globulin 3.2 gm/dl (2.5-4.0) 05/09/24 13:30 Albumin/Globulin Ratio 1.2 (0.9-2) 05/09/24 13:30 Procalcitonin 0.05 ng/ml (0-0.5) 05/09/24 13:30 Supervising Physician Co-Signing Physician Notes Patient seen and examined at bedside. Cellulitis of right leg after several rounds of treatment, returning to hospital due to change in caliber of skin in old cellulitis site. On exam, right leg has two ulcerations, one on the lateral right leg, that appears to be a blood blister vs. healing wound, and one on the anterior lower part of RLE, that appears it could be a developing abscess vs. poor wound healing vs. necrotic tissue. Cellulitis appears improved from prior, right leg appears similar to left. Suspect resolving cellulitis with 2 new sites of blister development vs. abscess formation, however further evaluation by consultants is warranted. Added on ESR/CRP. Given complexity of case, ID consult warranted to guide future abx management and look at wounds, wound care consult for further evaluation of skin changes. May be able to discharge tomorrow vs. further evaluation by vascular surgery and further treatment. Appreciate wound care expertise. I have seen and discussed the case with the collaborating advanced practitioner. I agree with the above H&P. I have reviewed and confirmed the patients medical history, the findings on physical examination, and the patients diagnosis and treatment plan with Guadalupe Bell NP and agree with the information documented. I spent a total of 20 minutes coordinating, documenting, and providing care for this patient excluding time spent in the performance of separately billed services. All of the aforementioned completed outside of collaborating with the assigned advanced practitioner for a full treatment plan. I have reviewed the advanced practitioner's documentation, and I agree with, and take responsibility for the plan of care (5) HTN (hypertension) Hypertension type: primary hypertension Qualified Code(s): I10 - Essential (primary) hypertension (6) COPD (chronic obstructive pulmonary disease) COPD type: emphysema Emphysema type: unspecified Qualified Code(s): J43.9 - Emphysema, unspecified (8) CAD (coronary artery disease) Associated angina: without angina Coronary Disease-Associated Artery/Lesion type: [place] artery [place] vs. transplanted heart: [place] heart Qualified Code(s): I25.10 - Atherosclerotic heart disease of [place] coronary artery without angina pectoris (9) Type 2 diabetes mellitus with diabetic neuropathy Diabetes mellitus retirement insulin use: with retirement use Qualified C ode(s): E11.40 - Type 2 diabetes mellitus with diabetic neuropathy, unspecified; Z79.4 - [facility] (current) use of insulin
[2024-05-09] MEDS: MAGNESIUM SULFATE / D5W 1 GM/100 ML BAG IV STA (16:05)
[2024-05-09] MEDS ORDERED: CARBOHYDRATES FOR HYPOGLYCEMIA PO PRN (16:09)
[2024-05-09] MEDS ORDERED: GLUCAGON FOR INJ 1 MG VIAL SQ PRN (16:09)
[2024-05-09] MEDS ORDERED: DEXTROSE 50% 50 ML SYRINGE IV PRN (16:09)
[2024-05-09] MEDS ORDERED: PHARMACY GLYCEMIC MGMT CONSULT PRN (16:09)
[2024-05-09] MEDS ORDERED: GLUCOSE 40% GEL 15 GM TUBE PO PRN (16:09)
[2024-05-09] MEDS ORDERED: GLUCOSE 10 TAB/TUBE PO PRN (16:09)
[2024-05-09] MEDS ORDERED: ACETAMINOPHEN 325 MG TAB PO PRN (17:21)
[2024-05-09] MEDS: INSULIN ASPART PER UNIT CHARGE SC SCH (18:42)
--- NOTE | 2024-05-09 21:20 | XRay Report ---
Exam(s): XR RIGHT TIB/FIB, 2 views EXAM: XR Right Tibia and Fibula, 2 Views CLINICAL HISTORY: Reason for exam: concern for osteomyelitis vs. soft tissue infectio. TECHNIQUE: Frontal and lateral views of the right tibia and fibula. COMPARISON: No relevant prior studies available. FINDINGS: Bones/joints: No acute fracture. No dislocation. Soft tissues: Subcutaneous edema. No radiopaque foreign body. Vasculature: Vascular calcifications. IMPRESSION: Subcutaneous edema. Electronically signed by: Hugo Dela Cruz M.D. 05/09/24 21:19 PM
[2024-05-09] MEDS: RIVAROXABAN 2.5 MG TAB PO SCH (21:21)
[2024-05-09] MEDS: SACCHAROMYCES BOULARDII 250 MG CAP PO SCH (21:21)
[2024-05-09] MEDS: AMITRIPTYLINE HCL 50 MG TAB PO SCH (21:21)
[2024-05-09] MEDS: rOPINIRole HCL 0.25 MG TABLET PO SCH (21:22)
[2024-05-09] MEDS: LANTUS PER UNIT CHARGE SC SCH (21:22)
[2024-05-09] MEDS: GABAPENTIN 300 MG CAP PO SCH (21:22)
--- OUTSIDE RECORDS SUMMARY | 2024-05-09 21:58 | External Medical Summary | Summary of Care ---
Author Name Unknown Organization [facility] Address [address] [place] [address] Phone [phone] Care Team Providers Care Road Equipment Operator Name Role Phone Jonny Donaldson MD Primary Care Provider + Reason for Visit * Reason Onset Date Comments Hospital Follow-Up 05/02/2024 [facility] ([facility]) Encounter Details Date Type Department Care Team (Late st Contact Info) Description 05/02/2024 Telephone [facility] [address] [place] [address] Kellie Barragan, [facility] Hospital Follow-Up ([facility] ([facility])) Allergies Active Allergy Reactions Criticality Noted Date Comments Cephalexin 01/28/1996 rash Doxepin 02/01/2018 Dust 04/04/2001 Nickel Anaphylaxis High 04/04/2001 Paroxetine 04/28/2003 generic only, brand ok Penicillins 03/03/1995 Rash Sulfa Antibiotics 11/27/1994 Rash documented as of this encounter (statuses as of 05/02/2024) Medications ASPIRIN EC 81 MG PO TBECIndications: [...] EVERY MORNING 180 Tablet 3 4 Active Insulin Glargine Solostar 100 [...] Anxiety or Insomnia. 40 Tablet 5 Active Ketoconazole 2 % External [...] Active metFORMIN HCl 850 MG Oral Tablet (Glucophage)Mritha cations:Type 2 diabetes mellitus with hemoglobin A1c goal of less than 8.0% (HCC) TAKE ONE TABLET BY MOUTH THREE TIMES DAILY WITH MEALS diabetes 270 Tablet 3 5 Active Rivaroxaban 2.5 MG Oral Tablet (Xarelto) Take 1 Tablet by mouth in the morning and 1 Tablet before bedtime. 60 Tablet 11 5 Active Empagliflozin 10 MG Oral Tablet (Jardiance)Indic ations:Type 2 diabetes mellitus with hemoglobin A1c goal of less than 8.0% (HCC) Take 1 Tablet by mouth in the morning. 90 Tablet 3 5 Active traMADol HCl 50 MG Oral Tablet (Ultram)Indicati ons:Sciatica, unspecified laterality Take 1-2 Tablets by mouth every 6 hours as needed (pain). 60 Tablet 5 Active Mounjaro 10 MG/0.5ML Subcutaneous Solution Auto-injector (Tirzepatide)Ind ications:Type 2 diabetes mellitus with hemoglobin A1c goal of less than 8.0% (HCC) Inject 10 mg under the skin once a week. Stop ozempic 6 mL 5 026 Active oxyBUTYnin Chloride ER 5 MG Oral Tablet Extended Release 24 Hour (Ditropan XL) Take 1 Tablet by mouth in the morning. 5 Active Furosemide 20 MG Oral Tablet (Lasix) Take 1 Tablet by mouth every other day. 5 Active Doxycycline Hyclate 100 MG Oral Tablet Take 1 Tablet by mouth in the morning and 1 Tablet before bedtime. 5 Active Cefdinir 300 MG Oral Capsule (Omnicef) Take 1 Capsule by mouth in the morning and 1 Capsule before bedtime. 5 Active Hospital, Clinic, or Other Facility Administered Medication Ordered Dose Route Frequency Start Date End Date Status cefTRIAXone (Rocephin) (350 mg/mL) inj dilution 1,000 mgIndications:Cellulitis of right leg 1000 mg IM Q24H 04/13/2024 Active cefTRIAXone (Rocephin) (350 mg/mL) inj dilution 1,000 mgIndications:Cellulitis of right leg 1000 mg IM Q24H 04/18/2024 Active documented as of this encounter (statuses as of 05/02/2024) Active Problems Problem Noted Date Diagnosed Date Ulcer of toe of right foot 03/05/2024 Bilateral carotid artery stenosis 07/17/2023 Morbid (severe) obesity due to excess calories 1 04/04/2022 COPD, group A, by GOLD 2017 classification [...] (06/27/2013): 06/24/13 +CP-abnormal stress->cath @[facility]. 100% occlusion RCA with left- right [...] Medical Center Episode June 2011 around 03/12/12 [facility]-P[facility]--sched for [facility] EP study Routine general medical exam ination at a health care facility 11/11/2011 Overview (03/20/2024): Cards--Dr Jeffrey Campos [facility]. 12/20 TTE [facility]-normal EF mild LVH. Mild , mild-mod MR, mild TR, mild [place]. Grad 1 DD 03/03/23 TTE [facility] normal EF, moderate LVH. Mild hypokinesis of apical septum. 01/18 Carotid [facility] stable 50-69 on left. 10/18 colonoscopy [facility] 3 3-5 polyps [address] colon-polypoid mucosa mild hyperplastic changes. Rectal polyp= hyperplastic polyp. Dr Juan Mak [facility] (11/19 06/14 Cologuard WNL. Cardiology-Jeffrey Jeanona. 12/17 Carotid 50-69% left ICA stenosis. Vielka [...] PFT evidence of COPD ) 05/10 TTE @[facility] Nsfoelomhx-gmyq-ptevpv EF, mild LVH, Gr1 Feldman Dys 07/09 colonoscopy [facility] Endoscopy [facility]-3 & 6mm polyp--PAth--Tubular adenoma 07/09 [facility] TSH & celiac testing WNL 04/11 ER [...] as of this encounter (statuses as of 05/02/2024) Resolved Problems Problem Noted Date Diagnosed Date Resolved Date Acute lower limb ischemia 01/19/2023 Diabetic foot infection 01/19/2023 01/0 08/2024 Perichondritis [...] as of this encounter (statuses as of 05/02/2024) Immunizations Name Administration Dates Next Due COVID-19 mRNA, LNP-s, No Pre serve, 2-Dose Series ([employer]) 01/24/2021,01/04/2021,06/03/2020 Hepatitis B, 20+ yrs 08/27/2009,03/30/2009,02/27 [...] encounter Miscellaneous Notes * Telephone Encounter - Kellie Barragan RN - 05/02/2024 9:20 AM EST Transitions of Care Note Reason for Referral:Recent Admission Phone visit for follow up: BRANDY Admitted to: [facility], Date: 04/26/2024 Discharged to: Home, Date: 05/01/2024 Diagnosis driving hospitalization: Right Lower Extremity Cellulitis, Peripheral Artery Disease Source/Contact: Patient SUBJECTIVE Consent: Verbal consent for review of hospital discharge: Yes REVIEW OF SYSTEMS Patient/Other Reports: Current patient/caregiver problems or concerns: No concerns. Reports she is doing well at home. CV: Denies problems Pulmonary: Denies problems Chills/Sweats/Fever:Denies chills/sweats Denies fever Appetite:Denies problems such as nausea, vomiting, burning, decreased appetite Current diet: Carb consistent Bowel: denies problems Bladder: denies problems Wound (If applicable): N/A Pain:Denies Sleep:Denies problems FUNCTIONAL STATUS: ADL'S: Needs Assistance With:N/A as pt is independent IADL'S: Needs Assistance With:Grocery Shopping, Cooking food, and Routine Housework, has help Cognitive and Mental Health: denies problems, alert and oriented x 3, and able to communicate, understand instructions, process information. MEDICATION RECONCILIATION Medications: Discharge med list reviewed with patient or caregiver New medications: Cefdinir, Clotrimazole, Doxycycline, Furosemide, Oxybutynin Still takes Ozempic, has not started Mounjaro yet ASSESSMENT Medication Risk Assessment: No risks identified Discharge instructions available for review? Yes PLAN Symptom Monitoring Interventions:Member/caregiver education - signs and symptoms to contact PrimaryCare (DO NOT DELETE-Three amaro symptoms patient is to report to PCP) 1. Chest Pain/SOB 2. Fever/chills 3. Worsening Rt LE Cellulitis - redness or swelling Labor Economics ProfessorLead Electrician of Care interventions/Action Plan: 5 - 7 day follow-up with PCP in place - Date: PCP appointment 05/09/2024 Educated on role of BRANDY completed with patient/caregiver. Educated patient/caregiver on patient right to have input on BRANDY plan of care. Verification of Home Health/DME if indicated: Yes, has O2 4l/NC at HS Identified Care Gaps: Yes Care Gaps closed this call: Appointment made or confirmed and Transition of Care follow-up communication Re-evaluation of Plan of Care and progress towards goals achievement: Patient education this visit: Verbal, Confirmed PCP appointment, addressed reasons to call sooner as above Plan to instructed to call Primary Care Provider with change in symptoms or as needed before next follow-up, discharge needs met, verbalizes understanding and agrees with plan. Kellie Barragan, RN documented in this encounter Plan of Treatment Upcoming Encounters Date Type Department Care Team (Late st Contact Info) Description 05/09/2024 12:20 PM EDT Office Visit Family Practice [facility] [address] [place] [address] Scar Bianchi MD [address] [place] [address] [place] [address] 05/27/2024 11:00 AM EDT Telemedicine Pharmacy, [address] [place] [address] [place] [address] 05/29/2024 11:00 AM EDT Appointment Vascular Lab [place] [address] [place] [address] 05/29/2024 11:30 AM EDT Appointment Vascular [facility] [place] [address] [place] [address] 05/29/2024 12:00 PM EDT Office Visit Vascular Surg [place] [address] [place] [address] Willian Rosas MD [address] [place] [address] 06/04/2024 1:30 PM EDT Office Visit Urogynecology [facility] [address] [place] [address] Cristopher Pantoja MD [address] [place] [address] 06/10/2024 11:20 AM EDT Office Visit [facility] [address] [place] [address] Jonny Donaldson MD [address] [place] [address] 09/17/2024 10:00 AM EDT Imaging Radiology [address] [place] [address] 09/20/2024 12:00 PM EDT Office Visit [facility] [address] [place] [address] Jonny Donaldson MD [address] [place] [address] 03/28/2025 12:00 PM EST Office Visit [facility] [address] [place] [address] Jonny Donaldson MD [address] [place] [address] Health Maintenance Due Date Last Done Comments [...] 06/25/2021, Additional history exists B-12 02/25/2025 02/26/2024, 1010/2022, 06/25/2021, Additional history exists GFR 04/18/2025 04/18/2024, [...] this encounter Medical Devices Implanted Type Area Fish Straightener Device Identifier Shelf Expiration Date Model / Serial / Lot Greater Than 80cm, 3mm-8mm Flora, Angiograft Pvd Saphenous Veins, Cryopreserved Implanted:Qty: 1 on 01/19/2023 by Willian Rosas MD at OR [facility] Right: Leg Upper LIFENET 07/29/2026 CV>80 / [id number] / [id number] documented as of this encounter Advance [...] Advance Directives occurred with: Patient Care Teams Road Equipment Operator Relationship Specialty Start Date End Date Jonny Donaldson MD [address] [place] [address] PCP - General Family Medicine 05/27/14 documented as of this encounter
--- OUTSIDE RECORDS SUMMARY | 2024-05-09 21:58 | External Medical Summary | Summary of Care ---
Author Name Unknown Organization [facility] Address [address] [place] [address] Phone [phone] Care Team Providers Care Cork Wirer Name Role Phone Jonny Donaldson MD Primary Care Provider + Reason for Visit * Reason Comments Follow Up Follow up for after antibiotics Encounter Details Date Type Department Care Team (Late st Contact Info) Description 04/19/2024 10:00 AM EST Office Visit Family [facility] [address] [facility] [place] [address] Jonny Donaldson MD [address] [facility] [place] [address] Cellulitis of right lower extremity*; Heart failure, systolic, due to CAD ([facility]); Diabetic macular edema of both eyes ([facility]); Morbid (severe) obesity due to excess calories ([facility]); Acute on chronic congestive heart failure, unspecified heart failure type (HCC) Allergies Active Allergy Reactions Criticality Noted Date Comments Cephalexin 01/28/1996 rash Doxepin 02/01/2018 Dust 04/04/2001 Nickel Anaphylaxis High 04/04/2001 Paroxetine 04/28/2003 generic only, brand ok Penicillins 03/03/1995 Rash Sulfa Antibiotics 11/27/1994 Rash documented as of this encounter (statuses as of 04/27/2024) Medications ASPIRIN EC 81 MG PO TBECIndications [...] than 8.0% ([facility]) Inject 35 Units under the skin in the morning and 35 Units before bedtime. 75 mL 3 024 Active NATURAL SUPPLEMENT Take by mouth daily. Balance of nature fruits and veggie capsules Active Fiasp FlexTouch 100 UNIT/ML Subcutaneous Solution Pen-injector (Insulin Aspart (w/Niacinamide) )Indications:Ty pe 2 diabetes mellitus with hemoglobin A1c goal of less than 8.0% ([facility]) Inject 26 with breakfast, 14 units with [...] 10 days. 20 Tablet 025 2024 Active Semaglutide (2 MG/DOSE) 8 MG/3ML Subcutaneous [...] days. Until gone.. 20 Capsule 025 2024 Torsemide 100 MG Oral Tablet (Demadex)Indica tions:Celluliti s of right leg Take 1 Tablet by mouth in the morning for 3 days. 3 Tablet 025 2024 Hospital, Clinic, or Other Facility Administered Medication Ordered Dose Route Frequency Start Date End Date Status cefTRIAXone (Rocephin) (350 mg/mL) inj dilution 1,000 mgIndications:Cellulitis of right leg 1000 mg IM Q24H 04/13/2024 Active cefTRIAXone (Rocephin) (350 mg/mL) inj dilution 1,000 mgIndications:Cellulitis of right leg 1000 mg IM Q24H 04/18/2024 Active documented as of this encounter (statuses as of 04/27/2024) Active Problems Problem Noted Date Diagnosed Date [...] Region. History of nonmelanoma skin cancer 05/25/2022 Overview [...] disease) 06/27/2013 Overview (06/27/2013): 06/24/13 +CP-abnormal stress->cath @[facility]. 100% [...] Overview (04/25/2012): 04/20/12 AV Ablation-Dr Jeffrey Campos, [facility] Episode June 2011 around 03/12/12 [facility] hosp-P175 SVT--sched for [facility] EP study Routine general medical exam ination at a health care facility 11/11/2011 Overview (03/20/2024): Cards--Dr Jeffrey Campos [facility]. 12/20 TTE Card [facility]-normal EF mild LVH. Mild , mild-mod MR, mild TR, mild [place]. Grad 1 DD 03/03/23 TTE [facility] normal EF, moderate LVH. Mild hypokinesis of apical septum. 01/18 Carotid US [facility] stable 50-69 on left. 10/18 colonoscopy [facility] 3 3-[address] poly[address] colon-polypoid mucosa mild hyperplastic changes. Rectal polyp= hyperplastic polyp. Dr Juan Mak [facility] (11/19 06/14 Cologuard WNL. Cardiology-Jeffrey Oscarpayal [facility]. 12/17 Carotid 50-69% left ICA stenosis. Vielka [...] PFT evidence of COPD ) 05/10 TTE @[facility] Qlgzmpccoz-imwu-dulfop EF, mild LVH, Gr1 Feldman Dys 07/09 colonoscopy [facility] Endoscopy [facility]-3 & 6mm polyp--PAth--Tubular adenoma 07/09 [facility] TSH & celiac testing WNL 04/11 ER visit [facility] SVT--resolved with adenosine. 03/11 EKG-scanned QTc 414 [...] as of this encounter (statuses as of 04/27/2024) Resolved Problems Problem Noted Date Diagnosed Date Resolved Date Acute lower limb ischemia 01/19/2023 Diabetic foot infection 01/19/202308/2024 Perichondritis of auricle [...] as of this encounter (statuses as of 04/27/2024) Immunizations Name Administration Dates Next Due COVID-19 [...] Reading Time Taken Comments Blood Pressure 124/80 04/19/2024 9:57 AM EST Pulse 90 04/19/2024 9:57 AM EST Temperature 36.7 C (98.1 F) 04/19/2024 9:57 AM ES T Respiratory Rate - - [...] Progress Notes * Jonny Donaldson MD - 04/27/2024 2:53 PM EST Images from the original note were not included. Subjective Mariia Liao is a 68 year old female presenting for Follow Up (Follow up for after antibiotics) History of Present Illness The patient, with a history of leg cellulitis, presents for a follow-up visit. She initially reported symptoms via e-mail, including pictures of a red lower leg. She was started on doxycycline empirically on April 11 (now on Day 9) and had an office visit on April 13, where she was given IM Ceftriaxone 1g x1 . She was seen in the [place] office on April 18, where she received a ceftriaxone one gram injection and was prescribed oral cefdinir. She was also given torsemide 100mg daily for three days for ongoing edema, not improved by her regular lasix 20mg. The patient reports that her leg is still very red and sore to the touch, particularly in the foot area. She has not experienced any fevers. She started the new medication this morning. The patient reports that the redness in her leg has not improved since receiving the injection. She also reports difficulty bending her foot due to swelling. Here w/ today. No major changes in diet. No new CP/SOB Objective Blood pressure 124/80, pulse 90, temperature 98.1 F (36.7 C), temperature source Tympanic, lastmenstrual period 03/13/2008. Physical Exam CARDIOVASCULAR: Pulses palpable b/l LE, RRR +s1,s2 no murmurs. Lungs CTABL EXTREMITIES: Right lower extremity sore to touch, erythematous with blanching on movement, swollen compared to left Results Assessment and Plan Assessment & Plan Cellulitis of the lower leg Persistent erythema and swelling despite treatment with doxycycline, Rosadan, and ceftriaxone. Cefdinir was added yesterday. No systemic symptoms reported. -Continue cefdinir as prescribed. -Review lab results from yesterday's visit. -Document current state with a photograph for future comparison. -ER of worsening. Doubt DVT Edema Noted in both legs, more pronounced in the affected leg. Torsemide 100mg daily for three days was prescribed yesterday. -Advise patient to take torsemide as prescribed when she returns home. -Continue to monitor for improvement in swelling. BNp elevated, likely component of diastolic heart failure exac. F/u cardiology Cellulitis of right lower extremity (Primary) Heart failure, systolic, due to CAD (HCC) Diabetic macular edema of both eyes (HCC) Morbid (severe) obesity due to excess calories (HCC) Acute on chronic congestive heart failure, unspecified heart failure type (HCC) - BASIC METABOLIC PANEL; Future; Expected date: 04/22/2024 Wrap-Up Follow Up: Return in about 5 days (around 04/24/2024) for Return with Physician. | For: Return with Physician | Check-out note: ER slot for cellulitis. Time: I spent a total of 30-39 minutes (exact time 31 mins) on the date of service in [...] during the encounter consented to its use. Cc: Jeffrey Davila documented in this encounter Nursing Notes * Ana Santo, Student - 04/19/2024 9:57 AM EST The patient has been properly identified by confirmation of name and date of . Chief Complaint Patient presents with Follow Up Follow up for after antibiotics documented in this encounter Plan of Treatment Upcoming Encounters Date Type Department Care Team (Late st Contact Info) Description 04/29/2024 2:40 PM EST Office Visit [facility] [address] [place] [address] Gerald Matthews CRNP [address] [place] [address] 05/27/2024 11:00 AM EDT Telemedicine Pharmacy, [address] [place] [address] [place] [address] 05/29/2024 11:00 AM EDT Appointment Vascular Lab [address] [address] 05/29/2024 11:30 AM EDT Appointment Vascular Lab [address] [address] 05/29/2024 12:00 PM EDT Office Visit Vascular Surg [place] [address] [place] [address] Willian Rosas MD [address] [place] [address] 06/04/2024 1:30 PM EDT Office Visit Urogynecology [facility] [address] [place] [address] Cristopher Pantoja MD [address] [place] [address] 06/10/2024 11:20 AM EDT Office Visit [facility] [address] [place] [address] Jonny Donaldson MD [address] [place] [address] 09/17/2024 10:00 AM EDT Imaging Radiology [address] [place] [address] 09/20/2024 12:00 PM EDT Office Visit [facility] [address] [place] [address] Jonny Donaldson MD [address] [place] [address] 03/28/2025 12:00 PM EST Office Visit [facility] [address] [place] [address] Jonny Donaldson MD [address] [place] [address] Scheduled Orders Name Type Priority Associated Diagnoses Orde r Schedule BASIC METABOLIC PANEL Lab Routine Acute on chronic congestive heart failure, unspecified heart failure type (HCC) Expected: 04/22/2024 (Approximate), Expires: 04/19/2025 Health Maintenance Due Date Last Done Comments [...] encounter Medical Devices Implanted Type Area Machine Cutter Device Identifier Shelf Expiration Date Model / Serial / Lot Greater Than 80cm, 3mm-8mm Flora, Angiograft Pvd Saphenous Veins, Cryopreserved Implanted:Qty: 1 on 01/19/2023 by Willian Rosas MD at OR [facility] Right: Leg Upper LIFENET 07/29/2026 CV>80 / [id number] / [id number] documented as of this encounter Visit Diagnoses Diagnosis Cellulitis of right lower extremity- Primary Cellulitis and abscess of leg, except foot Heart failure, systolic, due to CAD ([facility]) Unspecified systolic heart failure Diabetic macular edema of both eyes ([facility]) Type II or unspecified type diabetes mellitus with ophthalmic manifestations, not stated as uncontrolled Morbid (severe) obesity due to excess calories (HCC) Acute on chronic congestive heart failure, unspecified heart failure type ([facility]) Screening mammogram for breast cancer documented [...] Advance Directives occurred with: Patient Care Teams Cork Wirer Relationship Specialty Start Date End Date Jonny Donaldson MD [address] [place] [address] PCP - General Family Medicine 05/27/14 documented as of this encounter"
[2024-05-09 22:22] LABS: C Reactive Protein < 0.50 mg/dl (0-0.5)
[2024-05-10] MEDS: traMADol HCL 50 MG TABLET PO PRN ×2 (00:29→21:09)
[2024-05-10 07:06] LABS: Hematocrit (blood only) 48.7 % (37.0-47.0); Hemoglobin 14.6 g/dl (12.0-16.0); Mean Corpuscular Hemoglobin 24.9 pg (25.0-34.0); Mean Platelet Volume 10.6 fL (9.4-12.4); Platelet Count 146 K/uL (130-400); RDW Coefficient of Variation 19.9 % (11.5-14.5); RDW Standard Deviation 57.3 fL (36.4-46.3); Red Blood Count 5.87 M/uL (4.20-5.40); White Blood Count 6.51 K/ul (4.8-10.8)
[2024-05-10 07:16] LABS: Albumin Globulin Ratio 1.3 (0.9-2); Albumin Level 3.9 gm/dl (3.4-5.0); BUN Creatinine Ratio 17.9 (10-20); Bilirubin,Total 0.4 mg/dl (0.2-1.0); Calcium 9.1 mg/dl (8.6-10.3); Creatinine Clr Calc Pharmacy 89.4 ml/min; Globulin 2.9 gm/dl (2.5-4.0); Potassium 4.5 mmol/L (3.5-5.1); Total Protein 6.8 gm/dl (6.0-8.3)
[2024-05-10] MEDS: ASPIRIN 81 MG CHEW PO SCH (08:24)
[2024-05-10] MEDS: SERTRALINE HCL 100 MG TABLET PO SCH (08:24)
[2024-05-10] MEDS: METOPROLOL SUCC 25MG EXT REL TAB PO SCH (08:24)
[2024-05-10 08:33] LABS: Estimated Average Glucose 174 mg/dl; Hemoglobin A1C 7.7 % (4.5-5.6)
[2024-05-10] MEDS: VANCOMYCIN HCL 1,000 MG/270 ML BAG IV SCH (08:54)
[2024-05-10] MEDS ORDERED: VANCOMYCIN HCL 1,500 MG in SODIUM CHLORIDE 0.9% 500 ML IV SCH (10:00)
--- NOTE | 2024-05-10 10:04 | Pharmacy Report ---
Pharmacy PK ABX Note - Date of Service May 10, 2024 - Assessment and Plan Assessment 68 year old F receiving empiric vancomycin and ceftriaxone for treatment of right lower extremity cellulitis. Patient recently discharged earlier this month and completed antibiotic course for same infection (vancomycin/ceftriaxone while inpatient, transitioned to doxycycline and cephalexin at discharge). Blood Cultures x 2 during that prior admission showed no growth at 5 days. Patient w/ history of T2DM and severe PAD. Patient afebrile w/ no overt leukocytosis at this time. Renal function appears to be at/near baseline. ID consulted. Day # 2 of antimicrobial therapy. Plan Vancomycin * Loading dose: 2250 mg IV x 1 * Maintenance dose: 1000 mg IV every 12 hours * Regimen is predicted to achieve target AUC/SRINI of 400-600 mg/L.hr * Random level ordered for: 05/12/24 Pharmacy will continue to follow and will adjust dose/frequency as necessary. Thank you. Pharmacy has transitioned to AUC monitoring for vancomycin. AUC/SRINI is the preferred PK/PD target and is associated with decreased risk of nephrotoxicity compared to traditional trough targets.
[2024-05-10] MEDS: EMPAGLIFLOZIN 10 MG TAB PO SCH (10:07)
[2024-05-10] MEDS: OXYBUTYNIN CHLORIDE XL 5 MG TABCR PO SCH (10:07)
--- NOTE | 2024-05-10 10:19 | Pharmacy Report ---
Pharmacy Glycemic Short Note 2 - Date of Service May 10, 2024 - Glycemic Short BSG Results (Last 24 hours): 05/09/24 05/09/24 05/09/24 13:30 15:50 17:24 Glucose 118 H POC Glucose 72 87 05/09/24 05/10/24 05/10/24 20:51 00:09 04:01 Glucose POC Glucose 103 H 103 H 102 H 05/10/24 05/10/24 06:34 07:28 Glucose 115 H POC Glucose 110 H OUTPATIENT ANTIDIABETIC REGIMEN: * Basaglar 54 units SC HS * Novolog 15 units SC TIDM * Empagliflozin 10 mg PO daily * Metformin 850 mg PO TIDM HbA1c: 7.7% (05/10/24) ASSESSMENT: * DS is a 68 year old female admitted with recurrent right lower extremity cellulitis (on vancomycin/ceftriaxone) * Blood sugars well-controlled during recent admission, will initiate similar regimen for now * Patient with history of HFpEF, will continue empagliflozin while inpatient * Will utilize basal scale this evening to allow for decreased basal dose in light of presenting blood sugar in 70s PLAN FOR INPATIENT GLYCEMIC CONTROL: * Hold metformin, continue home empagliflozin 10 mg PO daily (in light of concomitant HFpEF) * Basal insulin * Lantus 15-20 units SQ HS (see EHR for details) * Bolus insulin * NovoLog per scale ACHS or Q6hrs while NPO * Goal Range: Low 120 mg/dL - High 150 mg/dL * Correction Factor: 25 mg/dL/unit * Nutritional / Prandial insulin per carb ratio of 1 unit per 8 grams CHO consumed
[2024-05-10] MEDS: cefTRIAXone SODIUM 2,000 MG/50 ML BAG IV SCH (13:24)
--- NOTE | 2024-05-10 13:43 | Infectious Disease Consult ---
Date of Service May 10, 2024 Telehealth Information I performed this visit using a real-time telehealth connection between my location and the patients location ([facility]). After connecting through interactive tele-video, patient was identified by name and date of and/or wristband check.Patient (or authorized healthcare sales representative sales manager) was informed that this was a telemedicine visit and it was being conducted confidentially over secure lines. My office door was closed and no on e else was present in the room with me.Patient (or authorized healthcare sales representative sales manager) provided consent to proceed with the visit, expressed an understanding of privacy and security of the telemedicine visit, and gave permission to have a hospital sales representative sales manager in the room in order to assist with the visit and to conduct portions of the visit, as needed. I informed the patient (or authorized healthcare sales representative sales manager) that I reviewed their record and presented the opportunity for them to ask any questions regarding the visit today. The patient agreed to participate. Assessment & Plan (1) Cellulitis of right leg: (2) Demand ischemia: (3) Type 2 diabetes mellitus with diabetic neuropathy: (4) PAD (peripheral artery disease): Plan Unclear if there is resurgence inpatients cellulitic episodes resulting from failure of therapy, although this would be likely and possible given her history of diabetes and significant vascular disease with difficulty of antibiotics concentration to reach the target tissues. given the lack of fevers/ WBC, possible her status is currently driven more by the ischemic blood flow rather than infectious process oral combination of there of. Currently can not rule out infection so agree we can treat for an additional prolonged course. Would treat with highly bioavailable medications and treat with linezolid at this current juncture, per patient as well as [facility] documentation she is on 100 mg of sertraline q.day, although here it does seem like she is receiving 200 q.day. this medication can have significant interactions with linezolid and recommend at minimum decreasing to 100 q.day while on this medication. would transitioned to oral at this time to ensure tolerability as the IV version does not have any significant benefit compared to po. -Linezolid 600 mg p.o. twice daily for a total of 10 days Appreciate consultation, please do not hesitate to reach out for any further questions or concerns. Norman Lim MD PGY5 Infectious Disease History of Present Illness History of Present Illness 68-year-old female with history of peripheral vascular disease, She has had right lower extremity revascularization in 2022 with femoral endarterectomy and bypass, unfortunately bypass is now occluded. Presents due to right lower extremity redness /pain. Most recently she was treated outpatient 04/25 with doxycycline Keflex however without significant improvement and was admitted 05/01 for right lower extremity cellulitis and required IV antibiotics, seemingly vancomycin and ceftriaxone, improved and discharged again on Keflex and doxycycline however returns due to concern that there was increased redness. Patient states her leg does seem mildly improved although she did not have any significant worsening pain in last 1 week, she states the redness seemed to be surrounding a ulcerative portion on her leg. She denies any fevers, chills, difficulty with ambulation. Most recent CTA with, severe atherosclerotic disease in the superficial femoral artery. it does not seem to be any plans for intervention surgically. Patient is without fevers, leukocytosis. Allergies Allergy/AdvReac Type Severity Reaction Status Date / Time paroxetine Allergy Severe HIVES;ANAPHYLAXIS-GENERIC Verified 01/18/23 18:54 BRAND nickel Allergy Intermediate RASH Verified 01/18/23 18:54 Penicillins Allergy Intermediate RASH Verified 01/18/23 18:54 Sulfa (Sulfonamide Allergy Intermediate RASH Verified 01/18/23 18:54 Antibiotics) doxepin AdvReac Intermediate HYPOTENSION Verified 01/18/23 18:54 Home Medications Medication Instructions Recorded Confirmed Type albuterol sulfate 90 mcg/actuation 2 puff inhalation Q4H PRN 01/18/23 05/09/24 History aerosol inhaler COUGH/WHEEZING amitriptyline 50 mg tablet 50 mg PO HS 01/18/23 05/09/24 History aspirin 81 mg chewable tablet 81 mg PO QAM 01/18/23 05/09/24 History atorvastatin 80 mg tablet 80 mg PO DAILY 01/18/23 05/09/24 History empagliflozin 10 mg tablet 10 mg PO QAM 01/18/23 05/09/24 History (Jardiance) fluticasone propionate 50 2 spray intranasal BID PRN 01/18/23 05/09/24 History mcg/actuation nasal Congestion spray,suspension gabapentin 300 mg capsule 300 mg PO BID 01/18/23 05/09/24 History insulin aspart U-100 100 unit/mL 15 unit subcut TIDM 01/18/23 05/09/24 History (3 mL) subcutaneous pen (Novolog FlexPen U-100 Insulin aspart) insulin glargine 100 unit/mL (3 54 unit subcut HS 01/18/23 05/09/24 History mL) subcutaneous pen (Basaglar KwikPen U-100 Insulin) krill oil 1,000 mg-om3 130 mg-dha 1 cap PO QAM 01/18/23 05/09/24 History 40 mg-epa 80 [id number] cap (Krill Oil ([place] 3 and 6)) liraglutide 0.6 mg/0.1 mL (18 mg/3 1.2 mg subcut DAILY PRN FASTING 01/18/23 05/09/24 History mL) subcutaneous pen injector BSG > 150 (Victoza 2-Jayy) lorazepam 0.5 mg tablet 0.5 mg PO Q8H PRN ANXIETY/INSOMNIA 01/18/23 05/09/24 History metformin 850 mg tablet 850 mg PO TIDM 01/18/23 05/09/24 History metoprolol succinate 25 mg 25 mg PO QAM 01/18/23 05/09/24 History tablet,extended release 24 hr rivaroxaban 2.5 mg tablet (Xarelto) 2.5 mg PO BID 01/18/23 05/09/24 History ropinirole 0.5 mg tablet 0.5 mg PO HS 01/18/23 05/09/24 History sertraline 50 mg tablet 200 mg PO QAM 01/18/23 05/09/24 History tramadol 50 mg tablet 50 - 100 mg PO Q6H PRN Pain 01/18/23 05/09/24 History Lactobacillus acidophilus 250 1,000 mmu cells PO DAILY 03/02/23 05/09/24 History million cell capsule (Probiotic Acidophilus) cranberry fruit concentrate 250 mg 250 mg PO DAILY 03/02/23 05/09/24 History chewable tablet (Azo Cranberry) Saccharomyces boulardii 250 mg 250 mg PO BID #20 caps 06/01/23 05/09/24 Rx capsule (Florastor) oxybutynin chloride 5 mg 5 mg PO DAILY #14 tabs 04/30/24 05/09/24 Rx tablet,extended release 24 hr clotrimazole 1 % topical cream 1 applic EXT BID #30 grams 05/01/24 05/09/24 Rx doxycycline hyclate 100 mg tablet 100 mg PO BID 10 days #20 tabs 05/01/24 05/09/24 Rx furosemide 20 mg tablet 20 mg PO Q48H #30 tabs 05/01/24 05/09/24 Rx Patient History Medical History Carotid artery stenosis GERD without esophagitis History of stroke History of nonmelanoma skin cancer Right inguinal hernia Sensorineural hearing loss SVT (supraventricular tachycardia) Urge incontinence Diabetic macular edema Diabetic retinopathy, nonproliferative Surgical History History of cholecystectomy Hx of sinus surgery Status post breast lumpectomy Hx of tubal ligation H/O: hysterectomy H/O cardiac radiofrequency ablation History of right-sided carotid endarterectomy S/P carpal tunnel release S/P femoropopliteal bypass surgery S/P drug eluting coronary stent placement S/P CABG x 3 Family History Other Cancer Diabetes Hypertension Social History Smoking Status: Former smoker Tobacco Type: Cigarettes Second Hand Exposure: No; Do You Dip or Chew Tobacco: No; Hx Alcohol Use: No Hx Substance Use: No Preferred Language: Georgian Communication Ability: Effective Security Alarm Technician Required: No Beliefs That Will Affect Care: None Current Living Situation: Spouse and Family Feels Safe at Home: Yes Assistive Devices: Cane and Walker Review of Systems CONSTITUTIONAL: Denies weight loss, fever and chills. HEENT: Denies changes in vision and hearing. RESPIRATORY: Denies SOB and cough. CV: Denies palpitations and CP. GI: Denies abdominal pain, nausea, vomiting and diarrhea. : Denies dysuria and urinary frequency. MSK: Denies myalgia and joint pain. SKIN: Denies rash and pruritus. NEUROLOGICAL: Denies headache and syncope PSYCHIATRIC: Denies recent changes in mood. Denies anxiety and depression. Physical Exam GENERAL: Appears as stated age. No acute distress. EXTREMITIES: Bilateral lower extremity chronic venous stasis changes, right lower extremity potentially mildly increased redness compared to left associated with small, pending sized lesion of unclear significance based on this limited exam. NEUROLOGIC: No focal neurological deficits. Cranial nerves grossly intact. Results & Data Vital Signs (Past 12 Hours) Vital Signs Temp Pulse Pulse Resp BP Pulse Ox O2 Del Method 05/10/24 13:15 36.7 C 69 18 117/74 93 Room Air 05/10/24 08:44 36.7 C 78 18 119/76 92 Room Air 05/10/24 08:00 87 05/10/24 03:58 36.5 C 74 16 127/75 97 Room Air Laboratory Results 05/10/24 05/10/24 05/10/24 11:56 07:28 06:34 WBC 6.51 RBC 5.87 H Hgb 14.6 Hct 48.7 H MCV 83.0 MCH 24.9 L MCHC 30.0 L RDW Std Deviation 57.3 H RDW Coeff of Janice 19.9 H Plt Count 146 MPV 10.6 Immature Gran % (Auto) Neut % (Auto) Lymph % (Auto) Harlan % (Auto) Eos % (Auto) Baso % (Auto) Neut # (Auto) Lymph # (Auto) [place] # (Auto) Eos # (Auto) Baso # (Auto) Immature Gran # (Auto) ESR PT INR Sodium 137 Potassium 4.5 Chloride 102 Carbon Dioxide 30 Anion Gap 5 BUN 15 Creatinine 0.84 Est Cr Clr Drug Dosing 89.4 eGFR 75.65 BUN/Creatinine Ratio 17.9 Glucose 115 H POC Glucose 132 H 110 H Estimat Average Glucose 174 Hemoglobin A1c 7.7 H Lactate Calcium 9.1 Magnesium Total Bilirubin 0.4 AST 18 ALT 14 Alkaline Phosphatase 108 H Total Creatine Kinase C-Reactive Protein Total Protein 6.8 Albumin 3.9 Globulin 2.9 Albumin/Globulin Ratio 1.3 Procalcitonin 05/10/24 05/10/24 05/09/24 04:01 00:09 20:51 WBC RBC Hgb Hct MCV MCH MCHC RDW Std Deviation RDW Coeff of Janice Plt Count MPV Immature Gran % (Auto) Neut % (Auto) Lymph % (Auto) [place] % (Auto) Eos % (Auto) Baso % (Auto) Neut # (Auto) Lymph # (Auto) [place] # (Auto) Eos # (Auto) Baso # (Auto) Immature Gran # (Auto) ESR PT INR Sodium Potassium Chloride Carbon Dioxide Anion Gap BUN Creatinine Est Cr Clr Drug Dosing eGFR BUN/Creatinine Ratio Glucose POC Glucose 102 H 103 H 103 H Estimat Average Glucose Hemoglobin A1c Lactate Calcium Magnesium Total Bilirubin AST ALT Alkaline Phosphatase Total Creatine Kinase C-Reactive Protein Total Protein Albumin Globulin Albumin/Globulin Ratio Procalcitonin 05/09/24 05/09/24 05/09/24 17:24 15:50 15:13 WBC RBC Hgb Hct MCV MCH MCHC RDW Std Deviation RDW Coeff of Janice Plt Count MPV Immature Gran % (Auto) Neut % (Auto) Lymph % (Auto) [place] % (Auto) Eos % (Auto) Baso % (Auto) Neut # (Auto) Lymph # (Auto) [place] # (Auto) Eos # (Auto) Baso # (Auto) Immature Gran # (Auto) ESR PT INR Sodium Potassium Chloride Carbon Dioxide Anion Gap BUN Creatinine Est Cr Clr Drug Dosing eGFR BUN/Creatinine Ratio Glucose POC Glucose 87 72 Estimat Average Glucose Hemoglobin A1c Lactate 2.7 H* Calcium Magnesium Total Bilirubin AST ALT Alkaline Phosphatase Total Creatine Kinase C-Reactive Protein Total Protein Albumin Globulin Albumin/Globulin Ratio Procalcitonin 05/09/24 13:30 WBC 8.62 RBC 5.62 H Hgb 14.1 Hct 46.9 MCV 83.5 MCH 25.1 MCHC 30.1 L RDW Std Deviation 57.5 H RDW Coeff of Ajnice 19.5 H Plt Count 175 MPV 10.9 Immature Gran % (Auto) 0.2 Neut % (Auto) 77.1 Lymph % (Auto) 13.3 Harlan % (Auto) 6.3 Eos % (Auto) 2.8 Baso % (Auto) 0.3 Neut # (Auto) 6.64 H Lymph # (Auto) 1.15 L [place]lan # (Auto) 0.54 Eos # (Auto) 0.24 Baso # (Auto) 0.03 Immature Gran # (Auto) 0.02 ESR 44 H PT 10.5 INR 1.0 Sodium 137 Potassium 5.0 Chloride 100 Carbon Dioxide 30 Anion Gap 7 BUN 17 Creatinine 0.93 Est Cr Clr Drug Dosing 80.5 eGFR 66.95 BUN/Creatinine Ratio 18.3 Glucose 118 H POC Glucose Estimat Average Glucose Hemoglobin A1c Lactate Calcium 9.3 Magnesium 1.5 L Total Bilirubin 0.3 AST 21 ALT 18 Alkaline Phosphatase 109 H Total Creatine Kinase 90 C-Reactive Protein < 0.50 Total Protein 7.0 Albumin 3.8 Globulin 3.2 Albumin/Globulin Ratio 1.2 Procalcitonin 0.05 Diagnostic Findings Laboratory Results WBC 6.51 K/ul (4.8-10.8) 05/10/24 06:34 RBC 5.87 M/uL (4.20-5.40) H 05/10/24 06:34 Hgb 14.6 g/dl (12.0-16.0) 05/10/24 06:34 Hct 48.7 % (37.0-47.0) H 05/10/24 06:34 MCV 83.0 fL (80.0-100.0) 05/10/24 06:34 MCH 24.9 pg (25.0-34.0) L 05/10/24 06:34 MCHC 30.0 g/dL (32.0-36.0) L 05/10/24 06:34 RDW Std Deviation 57.3 fL (36.4-46.3) H 05/10/24 06:34 RDW Coeff of Janice 19.9 % (11.5-14.5) H 05/10/24 06:34 Plt Count 146 K/uL (130-400) 05/10/24 06:34 MPV 10.6 fL (9.4-12.4) 05/10/24 06:34 Immature Gran % (Auto) 0.2 % 05/09/24 13:30 Neut % (Auto) 77.1 % 05/09/24 13:30 Lymph % (Auto) 13.3 % 05/09/24 13:30 [place]lan % (Auto) 6.3 % 05/09/24 13:30 Eos % (Auto) 2.8 % 05/09/24 13:30 Baso % (Auto) 0.3 % 05/09/24 13:30 Neut # (Auto) 6.64 K/uL (1.40-6.50) H 05/09/24 13:30 Lymph # (Auto) 1.15 K/uL (1.20-3.40) L 05/09/24 13:30 Harlan # (Auto) 0.54 K/uL (0.11-0.59) 05/09/24 13:30 Eos # (Auto) 0.24 K/uL (0.00-0.50) 05/09/24 13:30 Baso # (Auto) 0.03 K/uL (0.00-0.20) 05/09/24 13:30 Immature Gran # (Auto) 0.02 K/uL (0.01-0.20) 05/09/24 13:30 ESR 44 mm/hr (0-30) H 05/09/24 13:30 PT 10.5 Seconds (9.0-12.0) 05/09/24 13:30 INR 1.0 (0.9-1.1) 05/09/24 13:30 Sodium 137 mmol/L (136-145) 05/10/24 06:34 Potassium 4.5 mmol/L (3.5-5.1) 05/10/24 06:34 Chloride 102 mmol/L (98-107) 05/10/24 06:34 Carbon Dioxide 30 mmol/L (21-32) 05/10/24 06:34 Anion Gap 5 (3-11) 05/10/24 06:34 BUN 15 mg/dl (6-23) 05/10/24 06:34 Creatinine 0.84 mg/dl (0.6-1.2) 05/10/24 06:34 Est Cr Clr Drug Dosing 89.4 ml/min 05/10/24 06:34 eGFR 75.65 05/10/24 06:34 BUN/Creatinine Ratio 17.9 (10-20) 05/10/24 06:34 Glucose 115 mg/dl (70-99(Fasting)) H 05/10/24 06:34 POC Glucose 132 mg/dl (70-99) H 05/10/24 11:56 Estimat Average Glucose 174 mg/dl 05/10/24 06:34 Hemoglobin A1c 7.7 % (4.5-5.6) H 05/10/24 06:34 Lactate 2.7 mmol/L (0.4-2.0) H* 05/09/24 15:13 Calcium 9.1 mg/dl (8.6-10.3) 05/10/24 06:34 Magnesium 1.5 mg/dl (1.7-2.4) L 05/09/24 13:30 Total Bilirubin 0.4 mg/dl (0.2-1.0) 05/10/24 06:34 AST 18 U/L (13-39) 05/10/24 06:34 ALT 14 U/L (7-52) 05/10/24 06:34 Alkaline Phosphatase 108 U/L (34-104) H 05/10/24 06:34 Total Creatine Kinase 90 U/L (26-192) 05/09/24 13:30 C-Reactive Protein < 0.50 mg/dl (0-0.5) 05/09/24 13:30 Total Protein 6.8 gm/dl (6.0-8.3) 05/10/24 06:34 Albumin 3.9 gm/dl (3.4-5.0) 05/10/24 06:34 Globulin 2.9 gm/dl (2.5-4.0) 05/10/24 06:34 Albumin/Globulin Ratio 1.3 (0.9-2) 05/10/24 06:34 Procalcitonin 0.05 ng/ml (0-0.5) 05/09/24 13:30 Impressions Tibia/Fibula X-Ray 05/09/24 20:42 Exam(s): XR RIGHT TIB/FIB, 2 views EXAM: XR Right Tibia and Fibula, 2 Views CLINICAL HISTORY: Reason for exam: concern for osteomyelitis vs. soft tissue infectio. TECHNIQUE: Frontal and lateral views of the right tibia and fibula. COMPARISON: No relevant prior studies available. FINDINGS: Bones/joints: No acute fracture. No dislocation. Soft tissues: Subcutaneous edema. No radiopaque foreign body. Vasculature: Vascular calcifications. IMPRESSION: Subcutaneous edema. Electronically signed by: Hugo Dela Cruz M.D. 05/09/24 21:19 PM (3) Type 2 diabetes mellitus with diabetic neuropathy Diabetes mellitus remote computer terminal operator insulin use: with mcc use Qualified Code(s): E11.40 - Type 2 diabetes mellitus with diabetic neuropathy, unspecified; Z79.4 - alf (current) use of insulin
--- NOTE | 2024-05-10 14:56 | Hospitalist Progress Note ---
Date of Service May 10, 2024 Assessment & Plan (1) Hypomagnesemia: (2) Carotid artery stenosis: (3) Cellulitis of right leg: (4) Dyslipidemia: (5) HTN (hypertension): (6) COPD (chronic obstructive pulmonary disease): (7) PAD (peripheral artery disease): (8) CAD (coronary artery disease): (9) Type 2 diabetes mellitus with diabetic neuropathy: Plan The patient is a 68-year-old female with a PMH of PAD with history of revascularization who presents to the ED on 05/09/2024 with complaints of worsening right lower extremity cellulitis, recently discharged on oral antibiotics on 05/01/2024. Right lower extremity cellulitis History of severe PAD Completed a course of oral doxycycline and Keflex x 10 days on 04/25 with no improvement Discharged on 05/01/24 after 5 days of IV antibiotics;Presented back to the hospital for concern of possible development of ulceration. Arterial duplex scan showed occlusion of the proximal R common femoral artery and R peroneal artery Limited options for revascularization per outpatient vascular with allergy to nickel Plan to continue on vancomycin. Obtain wound care consult. Monitor for development of ulceration. ID recommends linezolid at the time of the discharge with duration of antibiotic of 10 days. Continue on Xarelto, aspirin and Lipitor for PAD Hx [id number] requiring: Managed on Mounjaro/Lantus at home, SSI/4 times daily BGM, diabetic pharmacy consult Hx CAD s/p CABG x 3: Hx HTN/CVA Continue aspirin/metoprolol/statin Hx anxiety/depression: Continue amitriptyline/sertraline Urgency incontinence- continue on oxybutynin DNR/DNI DVT prophylaxis: Xarelto Please note the above document was generated using voice recognition software. It may contain grammatical, syntax or spelling errors. Any formal questions or concerns about the content, text or information contained within the body of this dictation should be directly addressed to the provider for clarification Admission and Anticipated Discharge Date Admission Date: May 09, 2024 Subjective Patient seen and examined at bedside. She is comfortable; not in distress. She denies any increasing pain and swelling in her leg. Afebrile. No significant events overnight Review of Systems Review of Systems: All systems reviewed & are unremarkable except as noted in Subjective Physical Exam Physical Exam: Constitutional: Alert oriented x 3; not in distress. Respiratory: normal respiratory effort, lungs clear to auscultation, no wheeze, rales, rhonchi. Normal insp/exp effort, no accessory muscle use Cardiovascular: RRR, no murmur, no edema Vessels: no JVD or carotid bruit Chest: normal inspection of chest Abdomen: normal bowel sounds, soft, nontender, no hepatosplenomegaly Musculoskeletal: Right lower extremity with some erythema. Small blood blister present on the lateral aspect of the leg. Small area of possibly developing ulceration on the anterior part of lowerleg. Neurologic: PERRL, EOMI, accommodation nl, no face palsy, no dysarthria CN's II- XI intact bilaterally and moves all extremities Psychiatric: A+Ox3, euthymic affect Results & Data Results & Data Vital Signs (Past 12 Hours) Vital Signs Temp Pulse Pulse Resp BP Pulse Ox O2 Del Method 05/10/24 14:23 74 05/10/24 13:15 36.7 C 69 18 117/74 93 Room Air 05/10/24 08:44 36.7 C 78 18 119/76 92 Room Air 05/10/24 08:00 87 05/10/24 03:58 36.5 C 74 16 127/75 97 Room Air (5) HTN (hypertension) Hypertension type: primary hypertension Qualified Code(s): I10 - Essential (primary) hypertension (6) COPD (chronic obstructive pulmonary disease) COPD type: emphysema Emphysema type: unspecified Qualified Code(s): J43.9 - Emphysema, unspecified (8) CAD (coronary artery disease) Associated angina: without angina Coronary Disease-Associated Artery/Lesion type: [place] artery Platinum vs. transplanted heart: [place] heart Qualified Code(s): I25.10 - Atherosclerotic heart disease of [place] coronary artery without angina pectoris (9) Type 2 diabetes mellitus with diabetic neuropathy Diabetes mellitus terminal operations manager insulin use: with terminal operations manager use Qualified Code(s): E11.40 - Type 2 diabetes mellitus with diabetic neuropathy, unspecified; Z79.4 - longterm (current) use of insulin
[2024-05-10] MEDS: LANTUS PER UNIT CHARGE SC SCH (21:09)
--- NOTE | 2024-05-10 21:27 | Electrocardiogram Report ---
Test Reason : Blood Pressure : */* mmHG Vent. Rate : 75 BPM Atrial Rate : 75 BPM P-R Int : 188 ms QRS Dur : 116 ms QT Int : 426 ms P-R-T Axes : 63 -25 34 degrees QTcB Int : 475 ms Normal sinus rhythm Normal ECG When compared with ECG of 02-Mar-2023 12:01, Vent. rate has decreased by 37 bpm Criteria for Septal infarct are no longer Present Confirmed by Salty Epstein ([id number]) on 05/10/2024 9:26:24 PM Referred By: REFERRED SELF Confirmed By: Salty Epstein
--- NOTE | 2024-05-10 21:27 | Electrocardiogram Report ---
Test Reason : Blood Pressure : */* mmHG Vent. Rate : 72 BPM Atrial Rate : 72 BPM P-R Int : 194 ms QRS Dur : 122 ms QT Int : 438 ms P-R-T Axes : 43 -27 31 degrees QTcB Int : 479 ms Normal sinus rhythm Non-specific intra-ventricular conduction delay Minimal voltage criteria for LVH, may be normal variant Prolonged QT Borderline ECG When compared with ECG of 10-May-2024 05:49, No significant change was found Confirmed by Salty Epstein ([id number]) on 05/10/2024 9:27:05 PM Referred By: REFERRED SELF Confirmed By: Salty Epstein
[2024-05-11 06:56] LABS: Creatinine Clr Calc Pharmacy 84.3 ml/min
[2024-05-11] MEDS: DOCUSATE SODIUM 100 MG CAP PO SCH (09:19)
[2024-05-11] MEDS: POLYETHYLENE (MIRALAX) 17 GM PACK PO SCH (10:45)
[2024-05-11] MEDS: bisacodyL 5 MG TABEC PO ONE (10:45)
[2024-05-11] MEDS: FUROSEMIDE 20 MG TAB PO SCH (10:45)
--- NOTE | 2024-05-11 11:46 | Hospitalist Progress Note ---
Date of Service May 11, 2024 Assessment & Plan (1) Hypomagnesemia: (2) Carotid artery stenosis: (3) Cellulitis of right leg: (4) Dyslipidemia: (5) HTN (hypertension): (6) COPD (chronic obstructive pulmonary disease): (7) PAD (peripheral artery disease): (8) CAD (coronary artery disease): (9) Type 2 diabetes mellitus with diabetic neuropathy: Plan The patient is a 68-year-old female with a PMH of PAD with history of revascularization who presents to the ED on 05/09/2024 with complaints of worsening right lower extremity cellulitis, recently discharged on oral antibiotics on 05/01/2024. Right lower extremity cellulitis History of severe PAD Completed a course of oral doxycycline and Keflex x 10 days on 04/25 with no improvement Discharged on 05/01/24 after 5 days of IV antibiotics;Presented back to the hospital for concern of possible development of ulceration. Arterial duplex scan showed occlusion of the proximal R common femoral artery and R peroneal artery Limited options for revascularization per outpatient vascular with allergy to nickel Plan to continue on vancomycin. Improvement noted today on examination Infectious disease recommended linezolid; however patient has several medication which can interact including sertraline, tramadol, amitriptyline. Will reach out to infectious disease again if they have any further recommendation regarding choice of antibiotics. Continue aspirin, statin and Xarelto for peripheral artery disease CHFpEF, compensated-continue on Lasix 20 mg every other day Hx [id number] requiring: Managed on Mounjaro/Lantus at home, SSI/4 times daily BGM, diabetic pharmacy consult Hx CAD s/p CABG x 3: Hx HTN/CVA Continue aspirin/metoprolol/statin Hx anxiety/depression: Continue amitriptyline/sertraline Urgency incontinence- continue on oxybutynin DNR/DNI DVT prophylaxis: Xarelto Please note the above document was generated using voice recognition software. It may contain grammatical, syntax or spelling errors. Any formal questions or concerns about the content, text or information contained within the body of this dictation should be directly addressed to the provider for clarification Admission and Anticipated Discharge Date Admission Date: May 09, 2024 Subjective Patient seen and examined at bedside. She reports that the pain in her leg has improved compared to the previous day. Review of Systems Review of Systems: All systems reviewed & are unremarkable except as noted in Subjective Physical Exam Physical Exam: Constitutional: Alert oriented x 3; not in distress. Respiratory: normal respiratory effort, lungs clear to auscultation, no wheeze, rales, rhonchi. Normal insp/exp effort, no accessory muscle use Cardiovascular: RRR, no murmur, no edema Vessels: no JVD or carotid bruit Chest: normal inspection of chest Abdomen: normal bowel sounds, soft, nontender, no hepatosplenomegaly Musculoskeletal: Right lower extremity with some erythema. Small blood blister present on the lateral aspect of the leg. Small area on anterior part of the lower leg shows improvement. Neurologic: PERRL, EOMI, accommodation nl, no face palsy, no dysarthria CN's II- XI intact bilaterally and moves all extremities Psychiatric: A+Ox3, euthymic affect Results & Data Results & Data Vital Signs (Past 12 Hours) Vital Signs Temp Pulse Resp BP BP Pulse Ox O2 Del Method 05/11/24 07:16 36.4 C L 77 18 144/82 H 92 Room Air 05/11/24 03:28 36.7 C 103 H 16 113/67 94 Room Air (5) HTN (hypertension) Hypertension type: primary hypertension Qualified Code(s): I10 - Essential (primary) hypertension (6) COPD (chronic obstructive pulmonary disease) COPD type: emphysema Emphysema type: unspecified Qualified Code(s): J43.9 - Emphysema, unspecified (8) CAD (coronary artery disease) Coronary Disease-Associated Artery/Lesion type: [place] artery [place] vs. transplanted heart: [place] heart Associated angina: without angina Qualified Code(s): I25.10 - Atherosclerotic heart disease of [place] coronary artery without angina pectoris (9) Type 2 diabetes mellitus with diabetic neuropathy Diabetes mellitus terminal manager insulin use: with chcf use Qualified Code(s): E11.40 - Type 2 diabetes mellitus with diabetic neuropathy, unspecified; Z79.4 - senior living (current) use of insulin
--- NOTE | 2024-05-11 13:16 | Electrocardiogram Report ---
Test Reason : Blood Pressure : */* mmHG Vent. Rate : 94 BPM Atrial Rate : 94 BPM P-R Int : 202 ms QRS Dur : 118 ms QT Int : 394 ms P-R-T Axes : 52 -33 41 degrees QTcB Int : 492 ms Normal sinus rhythm Left axis deviation Incomplete left bundle block QTcB >= 480 msec Abnormal ECG When compared with ECG of 10-May-2024 10:46, No significant change was found Confirmed by Silas Sibley ([id number]) on 05/11/2024 1:15:30 PM Referred By: REFERRED SELF Confirmed By: Silas Sibley
[2024-05-11] MEDS: ONDANSETRON INJ 2 MG/ML 2 ML VIAL IV STA (20:40)
[2024-05-12 06:06] LABS: Creatinine Clr Calc Pharmacy 89.1 ml/min
[2024-05-12] MEDS: VANCOMYCIN LEVEL ONE (08:32)
--- NOTE | 2024-05-12 09:40 | Pharmacy Report ---
Pharmacy PK ABX Note - Date of Service May 12, 2024 - Assessment and Plan Assessment 05/12: * Day # 4 vancomycin RLE cellulitis. Renal function stable. 05/10: * 68 year old F receiving empiric vancomycin and ceftriaxone for treatment of right lower extremity cellulitis. Patient recently discharged earlier this month and completed antibiotic course for same infection (vancomycin/ceftriaxone while inpatient, transitioned to doxycycline and cephalexin at discharge). Blood Cultures x 2 during that prior admission showed no growth at 5 days. Patient w/ history of T2DM and severe PAD. Patient afebrile w/ no overt leukocytosis at this time. Renal function appears to be at/near baseline. ID consulted. Plan Vancomycin * Current regimen: 1gm IV q12h * Random level this AM (~8h level)- 14.9mcg/mL. Predicted to achieve ssAUC 462mg/L.hr - therapeutic. * Continue vancomycin 1gm IV q12h * Repeat level in ~ 48h or sooner if clinically indicated Pharmacy will continue to follow and will adjust dose/frequency as necessary. Thank you. Pharmacy has transitioned to AUC monitoring for vancomycin. AUC/SRINI is the preferred PK/PD target and is associated with decreased risk of nephrotoxicity compared to traditional trough targets.
--- NOTE | 2024-05-12 10:49 | Hospitalist Progress Note ---
Date of Service May 12, 2024 Assessment & Plan (1) Hypomagnesemia: (2) Carotid artery stenosis: (3) Cellulitis of right leg: (4) Dyslipidemia: (5) HTN (hypertension): (6) COPD (chronic obstructive pulmonary disease): (7) PAD (peripheral artery disease): (8) CAD (coronary artery disease): (9) Type 2 diabetes mellitus with diabetic neuropathy: Plan The patient is a 68-year-old female with a PMH of PAD with history of revascularization who presents to the ED on 05/09/2024 with complaints of worsening right lower extremity cellulitis, recently discharged on oral antibiotics on 05/01/2024. Right lower extremity cellulitis History of severe PAD Completed a course of oral doxycycline and Keflex x 10 days on 04/25 with no improvement Discharged on 05/01/24 after 5 days of IV antibiotics;Presented back to the hospital for concern of possible development of ulceration. Arterial duplex scan showed occlusion of the proximal R common femoral artery and R peroneal artery Limited options for revascularization per outpatient vascular with allergy to nickel Plan to continue on vancomycin.Continues to show signs of improvement. Infectious disease recommended linezolid; however patient has several medication which can interact including sertraline, tramadol, amitriptyline. Will reach out to infectious disease again if they have any further recommendation regarding choice of antibiotics. Continue aspirin, statin and Xarelto for peripheral artery disease CHFpEF, compensated-continue on Lasix 20 mg every other day Hx [id number] requiring: Managed on Mounjaro/Lantus at home, SSI/4 times daily BGM, diabetic pharmacy consult Hx CAD s/p CABG x 3: Hx HTN/CVA Continue aspirin/metoprolol/statin Hx anxiety/depression: Continue amitriptyline/sertraline Urgency incontinence- continue on oxybutynin DNR/DNI DVT prophylaxis: Xarelto Please note the above document was generated using voice recognition software. It may contain grammatical, syntax or spelling errors. Any formal questions or concerns about the content, text or information contained within the body of this dictation should be directly addressed to the provider for clarification Admission and Anticipated Discharge Date Admission Date: May 09, 2024 Subjective Patient continues to report improvement in right lower extremity pain and swelling. No significant overnight Review of Systems Review of Systems: All systems reviewed & are unremarkable except as noted in Subjective Physical Exam Physical Exam: Constitutional: Alert oriented x 3; not in distress. Respiratory: normal respiratory effort, lungs clear to auscultation, no wheeze, rales, rhonchi. Normal insp/exp effort, no accessory muscle use Cardiovascular: RRR, no murmur, no edema Vessels: no JVD or carotid bruit Chest: normal inspection of chest Abdomen: normal bowel sounds, soft, nontender, no hepatosplenomegaly Musculoskeletal: Right lower extremity with some erythema. Small blood blister present on the lateral aspect of the leg. Small area on anterior part of the lower leg shows improvement. Neurologic: PERRL, EOMI, accommodation nl, no face palsy, no dysarthria CN's II- XI intact bilaterally and moves all extremities Psychiatric: A+Ox3, euthymic affect Results & Data Results & Data Vital Signs (Past 12 Hours) Vital Signs Temp Pulse Pulse Resp BP Pulse Ox O2 Del Method 05/12/24 07:56 Room Air 05/12/24 07:52 36.5 C 85 16 101/68 96 Room Air 05/12/24 07:43 36.4 C L 87 18 97/63 L 91 Room Air 05/12/24 07:06 88 05/12/24 03:44 36.5 C 86 16 97/62 L 96 Nasal Cannula 05/11/24 23:21 36.7 C 78 18 94/55 L 92 Nasal Cannula O2 Flow Rate 05/12/24 07:56 05/12/24 07:52 05/12/24 07:43 05/12/24 07:06 05/12/24 03:44 4 05/11/24 23:21 4 (5) HTN (hypertension) Hypertension type: primary hypertension Qualified Code(s): I10 - Essential (primary) hypertension (6) COPD (chronic obstructive pulmonary disease) COPD type: emphysema Emphysema type: unspecified Qualified Code(s): J43.9 - Emphysema, unspecified (8) CAD (coronary artery disease) Associated angina: without angina Coronary Disease-Associated Artery/Lesion type: [place] artery [place] vs. transplanted heart: [place] heart Qualified Code(s): I25.10 - Atherosclerotic heart disease of [place] coronary artery without angina pectoris (9) Type 2 diabetes mellitus with diabetic neuropathy Diabetes mellitus termite treater helper insulin use: with termite treater helper use Qualified Code(s): E11.40 - Type 2 diabetes mellitus with diabetic neuropathy, unspecified; Z79.4 - terminal make up operator (current) use of insulin
--- NOTE | 2024-05-12 13:33 | Pharmacy Report ---
Pharmacy Glycemic Short Note 2 - Date of Service May 12, 2024 - Glycemic Short BSG Results (Last 24 hours): 05/11/24 05/11/24 05/12/24 16:04 20:13 08:12 POC Glucose 146 H 180 H 165 H 05/12/24 12:04 POC Glucose 162 H OUTPATIENT ANTIDIABETIC REGIMEN: * Basaglar 54 units SC HS * Novolog 15 units SC TIDM * Empagliflozin 10 mg PO daily * Metformin 850 mg PO TIDM HbA1c: 7.7% (05/10/24) ASSESSMENT: 05/12: * Katie received 43 units of SC insulin yesterday (20 units basal + 23 units bolus) * Fasting BSG of 165 mg/dL today. Fasting trending upward. Will increase basal insulin by 20%. * Post prandial BSGs are near goal. Will slightly tighten carb coverage. 05/10: * DS is a 68 year old female admitted with recurrent right lower extremity cellulitis (on vancomycin/ceftriaxone) * Blood sugars well-controlled during recent admission, will initiate similar regimen for now * Patient with history of HFpEF, will continue empagliflozin while inpatient * Will utilize basal scale this evening to allow for decreased basal dose in light of presenting blood sugar in 70s PLAN FOR INPATIENT GLYCEMIC CONTROL: * Hold metformin, continue home empagliflozin 10 mg PO daily (in light of concomitant HFpEF) * Basal insulin * Lantus 24 units SQ HS * Bolus insulin * NovoLog per scale ACHS or Q6hrs while NPO * Goal Range: Low 120 mg/dL - High 150 mg/dL * Correction Factor: 25 mg/dL/unit * Nutritional / Prandial insulin per carb ratio of 1 unit per 7 grams CHO consumed
[2024-05-12] MEDS: LANTUS PER UNIT CHARGE SC SCH (21:15)
[2024-05-13 07:33] VITALS: PULSE 98; RESP 14; TEMP 97.3; O2SAT 90
[2024-05-13 07:42] LABS: Creatinine Clr Calc Pharmacy 76.5 ml/min
--- NOTE | 2024-05-13 09:09 | Pharmacy Report ---
Pharmacy Glycemic Short Note 2 - Date of Service May 13, 2024 - Glycemic Short BSG Results (Last 24 hours): 05/12/24 05/12/24 05/12/24 12:04 17:09 20:27 POC Glucose 162 H 140 H 212 H 05/13/24 08:12 POC Glucose 147 H OUTPATIENT ANTIDIABETIC REGIMEN: * Basaglar 54 units SC HS * Novolog 15 units SC TIDM * Empagliflozin 10 mg PO daily * Metformin 850 mg PO TIDM HbA1c: 7.7% (05/10/24) ASSESSMENT: 05/13: * Received 52 units of insulin yesterday, 24 of which were basal. BSGs were 469-111-093-212 mg/dL. * Fasting BSG this AM was 147 mg/dL. Will continue with previous basal dose that was increased yesterday. * Will tighten correction factor this AM. Tolerating T2DM diet. Remains on Vancomycin and Jardiance. 05/12: * Katie received 43 units of SC insulin yesterday (20 units basal + 23 units bolus) * Fasting BSG of 165 mg/dL today. Fasting trending upward. Will increase basal insulin by 20%. * Post prandial BSGs are near goal. Will slightly tighten carb coverage. 05/10: * DS is a 68 year old female admitted with recurrent right lower extremity cellulitis (on vancomycin/ceftriaxone) * Blood sugars well-controlled during recent admission, will initiate similar regimen for now * Patient with history of HFpEF, will continue empagliflozin while inpatient * Will utilize basal scale this evening to allow for decreased basal dose in light of presenting blood sugar in 70s PLAN FOR INPATIENT GLYCEMIC CONTROL: * Hold metformin, continue home empagliflozin 10 mg PO daily (in light of concomitant HFpEF) * Basal insulin * Lantus 24 units SC HS * Bolus insulin * NovoLog per scale ACHS or Q6hrs while NPO * Goal Range: Low 120 mg/dL - High 150 mg/dL * Correction Factor: 20 mg/dL/unit * Nutritional / Prandial insulin per carb ratio of 1 unit per 7 grams CHO consumed
[2024-05-13 10:31] VITALS: BP 127/73
--- NOTE | 2024-05-13 12:59 | Discharge Summary ---
Date of Service May 13, 2024 Admission HPI Per Admitting Provider This is a 68 y/o female with insulin-requiring DM2, CAD s/p CABG x 3 (06/19), PAD w/hx of emergent revascularlization of the RLE, COPD/emphysema, diabetic retinopathy and macular edema, diabetic neuropathy, hx SVT, HTN, prior CVA, anxiety/depression, dyslipidemia,who presents to the ED on 05/09/2024 after being recently discharged for recurrent right lower extremity cellulitis. Patient reports after being discharged, she developed open sores and worsening pain that is not controlled with her home dose of tramadol. Patient reports that a hard covering appeared over the anterior aspect of her leg. She was concerned with a possible blister and underlying infection. She denies any fever/chills at home. Patient was recently discharged on 05/01/2024 Doxy and Keflex after being hospitalized for right lower extremity cellulitis with improvement on IV Vanco and ceftriaxone. Arterial duplex of the right lower extremity on 04/26 showed: --occlusion of the proximal R common femoral artery and R peroneal artery --CT of the lower extremity was done; known history of severe PAD. Reviewed outpatient vascular surgery note; revascularization options are limited, as patient is allergic to nickel. At the time of discharge, the patient's wound cultures and blood cultures were negative. On arrival to the ED today, labs are remarkable for lactic acid 3.2, repeat 2.7, magnesium 1.5, procalcitonin is negative The patient will be admitted for further management of recurrent right lower extremity cellulitis Admission Exam Per Admitting Provider Constitutional: WD/WN, vitals as above Eyes: PERRL, conjunctivae normal, anicteric sclerae ENMT: external ear and nose normal, oropharynx normal Neck: trachea midline, no thyromegaly Respiratory: normal respiratory effort, lungs clear to auscultation Cardiovascular: RRR, no murmur, no edema Gastrointestinal (Abdomen): normal bowel sounds, soft, nontender, no hepatosplenomegaly Musculoskeletal: no cyanosis or clubbing, extremities motor strength 5/5 ( Right lower extremity with erythema and scabbed over ulceration) Neurologic: PERRL, EOMI, accommodation nl, no face palsy, no dysarthria Psychiatric: A+Ox3, euthymic affect Lymphatic: no cervical or axillary lymphadenopathy Principal Diagnosis Right lower leg cellulitis Discharge Exam Constitutional: Alert oriented x 3; not in distress. Respiratory: normal respiratory effort, lungs clear to auscultation, no wheeze, rales, rhonchi. Normal insp/exp effort, no accessory muscle use Cardiovascular: RRR, no murmur, no edema Vessels: no JVD or carotid bruit Chest: normal inspection of chest Abdomen: normal bowel sounds, soft, nontender, no hepatosplenomegaly Musculoskeletal: Significant improvement in her right lower extremity erythema, swelling. No areas of wounds/ulcers Neurologic: PERRL, EOMI, accommodation nl, no face palsy, no dysarthria CN's II- XI intact bilaterally and moves all extremities Psychiatric: A+Ox3, euthymic affect Discharge Data Allergies Allergy/AdvReac Type Severity Reaction Status Date / Time paroxetine Allergy Severe HIVES;ANAPHYLAXIS-GENERIC Verified 01/18/23 18:54 BRAND nickel Allergy Intermediate RASH Verified 01/18/23 18:54 Penicillins Allergy Intermediate RASH Verified 01/18/23 18:54 Sulfa (Sulfonamide Allergy Intermediate RASH Verified 01/18/23 18:54 Antibiotics) doxepin AdvReac Intermediate HYPOTENSION Verified 01/18/23 18:54 Consultations 05/09/24 15:29 ED Decision to Admit Stat 05/09/24 17:21 Consult Infectious Diseases Routine Hospital Course (1) Hypomagnesemia: (2) Carotid artery stenosis: (3) Cellulitis of right leg: (4) Dyslipidemia: (5) HTN (hypertension): (6) COPD (chronic obstructive pulmonary disease): (7) PAD (peripheral artery disease): (8) CAD (coronary artery disease): (9) Type 2 diabetes mellitus with diabetic neuropathy: Plan The patient is a 68-year-old female with a PMH of PAD with history of revascularization who presents to the ED on 05/09/2024 with complaints of worsening right lower extremity cellulitis, recently discharged on oral antibiotics on 05/01/2024. Right lower extremity cellulitis History of severe PAD Completed a course of oral doxycycline and Keflex x 10 days on 04/25 with no improvement Discharged on 05/01/24 after 5 days of IV antibiotics;Presented back to the hospital for concern of possible development of ulceration. Arterial duplex scan showed occlusion of the proximal R common femoral artery and R peroneal artery Limited options for revascularization per outpatient vascular with allergy to nickel During the hospitalization, patient was treated with IV vancomycin with significant improvement in the right lower extremity cellulitis. The area of concern of ulceration improved as well. Patient remained afebrile. Infectious disease recommended linezolid. Discussion was done with the patient; multiple interactions with linezolid was present including tramadol, sertraline. Patient had limited antibiotic choices given she was allergic to sulfa, penicillin, had already received doxycycline, multiple interactions with linezolid. Addition was made to place her on 4 more days of clindamycin. I discussed side effects and adverse reaction. I discussed being on probiotics while she takes the antib iotic. Patient verbalized understanding. Patient to follow-up with PCP and vascular surgery as outpatient. Please note the above document was generated using voice recognition software. It may contain grammatical, syntax or spelling errors. Any formal questions or concerns about the content, text or information contained within the body of this dictation should be directly addressed to the provider for clarification Total Time Total Time Spent Total Time Spent (In Minutes): 45 Total Time Includes: Examination of the Patient, Discharge Planning, Medication Reconciliation, Communication With Other Providers and Other Discharge Plan Discharge Items Patient Disposition: Home - Self-Care Reason For Visit: RLE CELLULITIS Discharge Diagnosis: Right lower extremity cellulitis Activity: Resume your previous activity Non-emergency contact: Primary Care Provider Call non-emergency contact if: you have any medication questions and your symptoms worsen Follow-up/Referrals: Jonny Donaldson MD [Primary Care Provider] - (Date & Time 05/20/2024 10:00 AM Provider: Jonny Donaldson MD [facility] ) Diet: Regular Addtl Attending Provider Instructions: You were admitted to the hospital with cellulitis of right lower extremity. You are treated with antibiotic during the hospitalization. You are prescribed following medication; Take clindamycin 300 mg every 6 hours for the next 4 days Take probiotic while you are on the antibiotic Please monitor for any diarrhea, signs or symptoms of worsening of infection. A follow-up appointment will be set up with your primary care doctor for sometime later this week or next week. Pending Studies at Discharge: No Stand-Alone Forms: My [employer], Smoking Cessation Medications and DC Order Prescriptions: New clindamycin HCl 300 mg capsule 300 mg PO Q6H 4 Days Qty: 16 0RF Probiotic 15 billion cell capsule, sprinkle 1 cap PO DAILY 7 Days Qty: 7 0RF Rx Instructions: do not crush/chew/cut; swallow whole OR may open and sprinkle in cold drink/food Continued atorvastatin 80 mg tablet 80 mg PO DAILY metformin 850 mg tablet 850 mg PO TIDM tramadol 50 mg tablet 50 - 100 mg PO Q6H PRN (Reason: Pain) amitriptyline 50 mg tablet 50 mg PO HS lorazepam 0.5 mg tablet 0.5 mg PO Q8H PRN (Reason: ANXIETY/INSOMNIA) ropinirole 0.5 mg tablet 0.5 mg PO HS Rx Instructions: TAKE BEFORE NAPS & HS. gabapentin 300 mg capsule 300 mg PO BID Rx Instructions: TAKES AT LUNCH & HS aspirin 81 mg Tablet,Chewable 81 mg PO QAM metoprolol succinate 25 mg tablet extended release 24 hr 25 mg PO QAM albuterol sulfate 90 mcg/actuation HFA aerosol inhaler 2 puff INHALATION Q4H PRN (Reason: COUGH/WHEEZING) fluticasone propionate 50 mcg/actuation [place],Suspension 2 spray INTRANASAL BID PRN (Reason: Congestion) Rx Instructions: administer into each nostril sertraline 50 mg tablet 200 mg PO QAM insulin aspart U-100 [Novolog FlexPen U-100 Insulin] 100 unit/mL (3 mL) insulin pen 15 unit SUBCUT TIDM insulin glargine [Basaglar KwikPen U-100 Insulin] 100 unit/mL (3 mL) insulin pen 54 unit SUBCUT HS Krill Oil (Mason 3 and 6) 1000-130(40-80) mg Capsule 1 cap PO QAM liraglutide [Victoza 2-Jayy] 0.6 mg/0.1 mL (18 mg/3 mL) pen injector 1.2 mg SUBCUT DAILY PRN (Reason: FASTING BSG > 150) Jardiance 10 mg tablet 10 mg PO QAM Xarelto 2.5 mg tablet 2.5 mg PO BID Azo Cranberry 250 mg Tablet,Chewable 250 mg PO DAILY Probiotic Acidophilus 250 million cell Capsule 1,000 mmu cells PO DAILY Saccharomyces boulardii [Florastor] 250 mg capsule 250 mg PO BID Qty: 20 0RF Rx Instructions: swallow whole oxybutynin chloride 5 mg tablet extended release 24hr 5 mg PO DAILY Qty: 30 0RF furosemide 20 mg Tablet 20 mg PO Q48H Qty: 30 0RF clotrimazole 1 % Cream 1 applic EXT BID Qty: 30 0RF Rx Instructions: Apply to right and left groin twice a day for 10 days Discontinued doxycycline hyclate 100 mg tablet 100 mg PO BID 10 Days Qty: 20 0RF Discharge Orders: Discharge Order (Routine); Ordered 05/13/24 Ordered By: Grady De La Fuente Admission Data Admit Date/Time: 05/09/24 15:39 Attending Provider: Grady De La Fuente Admit Provider: Reji Swartz Primary Care Provider: Jonny Donaldson Other Providers: Reji Swartz; Aditya Gonzáles; Virgen Ovalle; Gigi Ribera I.; Rj Ga II; Codie Billingsley; Frank Delong; Onur Ziegler; Mark King; Norman Lim Other Interventions: Discharge Summary Assessment (RN) Last Done: 05/13/24 10:31
[2024-05-14] MEDS ORDERED: VANCOMYCIN LEVEL ONE (07:00)
== END 2024-05-13 12:07 | disposition home or self-care (01) | DRG 603 ==
LOC: ED 12:47 → 2S 15:39 → SUATTDRO 15:39 → 2S 16:30 → 2N 05-11 17:36

== ENCOUNTER 2024-11-09 02:20 | Inpatient (IN) ==
[2024-11-09 02:50] LABS: Base Excess VBG 0.9 mEq/L; HCO3 VBG 29 mmol/L; Oxygen Saturation VBG < 60.0 %; PCO2 VBG 64 mmHg (38-50); PO2 VBG 35 mmHg; pH VBG 7.27 (7.36-7.41)
[2024-11-09 02:55] LABS: Hematocrit (blood only) 46.7 % (37.0-47.0); Hemoglobin 13.6 g/dl (12.0-16.0); Immature Granulocytes # (auto) 0.04 K/uL (0.01-0.20); Immature Granulocytes % (auto) 0.4 %; Mean Corpuscular Hemoglobin 24.6 pg (25.0-34.0); Mean Corpuscular Volume 84.4 fL (80.0-100.0); Platelet Count 212 K/uL (130-400); RDW Standard Deviation 64.7 fL (36.4-46.3); Red Blood Count 5.53 M/uL (4.20-5.40); White Blood Count 10.15 K/ul (4.8-10.8)
[2024-11-09] MEDS: SODIUM CHLORIDE 0.9% 500 ML IV ONE (03:02)
[2024-11-09 03:11] LABS: Alanine Aminotransferase 16 U/L (7-52); Albumin Globulin Ratio 1.2 (0.9-2); Alkaline Phosphatase 106 U/L (34-104); Anion Gap 7 (3-11); Bilirubin,Total 0.4 mg/dl (0.2-1.0); Blood Urea Nitrogen 23 mg/dl (6-23); Calcium 8.5 mg/dl (8.6-10.3); Carbon Dioxide 27 mmol/L (21-32); Chloride 99 mmol/L (98-107); Globulin 3.3 gm/dl (2.5-4.0); Glucose 216 mg/dl (70-99(Fasting)); Potassium 5.7 mmol/L (3.5-5.1); Sodium 133 mmol/L (136-145); Total Protein 7.3 gm/dl (6.0-8.3)
[2024-11-09 03:21] LABS: Anisocytosis Present
--- NOTE | 2024-11-09 03:55 | XRay Report ---
EXAM: XR ankle LT min 3V routine CLINICAL HISTORY: Fall. TECHNIQUE: X-ray images of the left ankle were obtained in anteroposterior (AP), lateral, and mortise projections. COMPARISON: No prior studies available for comparison. FINDINGS: Bone Structure: Bone structure is normal and aligned. No evidence of fracture or dislocation. No osseous lesions or abnormalities identified. Osteopeneia. Joint Spaces: Joint spaces are normal. No evidence of joint dislocation or subluxation. Soft Tissues: Soft tissues appear normal and unremarkable. No soft tissue swelling, calcifications, or foreign bodies noted. Vascular atheromatous calcifications. Additional Findings: Plantar bony calcaneal spur. IMPRESSION: 1. No evidence of acute fracture or dislocation. 2. Osteopeneia. 3. Plantar bony calcaneal spur. Disclaimer: A subtle bone abnormality or fracture may not be readily apparent on X-rays, thus clinical correlation and further imaging including follow-up CT, MRI, or follow-up X-rays are advised as needed. Electronically signed by Stephane Thornton 11-09-2024 03:55 AM
--- NOTE | 2024-11-09 03:58 | XRay Report ---
EXAM: XR chest 1V portable CLINICAL HISTORY: hypoxia TECHNIQUE: A radiograph of the chest was acquired. 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 FINDINGS: Apparent cardiomegaly is detected. A few suspicious reticulonodular opacities are noted involving the bilateral lung nieves, more on the left side. A few atelectatic bands are noted in the left mid and lower zones. The rest of the findings are unchanged compared to the prior radiograph. No pleural effusion is detected. No acute osseous abnormality is seen. IMPRESSION: Apparent cardiomegaly is detected. A few suspicious reticulonodular opacities are noted involving the bilateral lung nieves, more on the left side. A few atelectatic bands are noted in the left mid and lower zones. A CT scan is suggested for better evaluation of clinical indications. The rest of the findings are unchanged compared to the prior radiograph. Electronically signed by Scar Baron 11-09-2024 03:57 AM
--- NOTE | 2024-11-09 04:13 | Emergency Department Note ---
Impression & Plan Foot fracture, left, Fall, Hypoxia, Hypotension, Bilateral interstitial pneumonia Admit to the [facility] pending CTA of the chest ED Provider Note NAME: ALLEN HERNANDEZ AGE: 69 SEX: Female INFORMANT: Patient ED PROVIDER(S): Davida Osborn DO CHIEF COMPLAINT: left ankle/foot pain PLAN: Disposition: admit to the [facility] MEDICAL DECISION MAKING: This is a 69-year-old female who suffered a fall yesterday when she tried to move quickly to answer her phone. She has been having discomfort in her left ankle and foot since that time. Upon arrival here in the emergency department, the patient was noted to be significantly hypoxic and hypotensive. O2 saturations rebounded with high flow oxygen by nonrebreather mask. Patient was given a 500 cc bolus of saline which seemed to improve her blood pressure. Patient had plain x-rays of the left foot and chest. There were fractures noted in the left foot and opacities and cardiomegaly on chest x-ray. VBG was obtained and revealed pH of 7.27 and pCO2 64. Other laboratory studies revealed no leukocytosis or anemia. Potassium was slightly elevated at 5.7. Sodium was noted to be 133. Troponin was negative. Glucose was 216. BNP was 117. I relayed findings to the patient and her daughter. Patient was ordered to have CT scan of the chest to further characterize these opacities and to rule out PE with such significant hypoxia. CT confirmed the patient has bilateral consolidations concerning for pneumonia. Inpatient team had ordered IV cefepime. BioFire testing is pending. Care/management discussed with: [facility] in farm facility manager Triage Nursing notes: reviewed and agree With them. Vital Signs: reviewed and remarkable for hypoxia and hypotension Additional History obtained from: the patient's daughter who is at the bedside. Chronic Medical/Social Conditions affecting care: COPD; nighttime oxygen use Prior/ Outside/ External records reviewed: I reviewed records from her PCP through the [facility] system. Differential Diagnosis: Foot fractures, ankle fracture, pneumonia, PE, COPD exacerbation Diagnostics, independently interpreted by me: ECG: sinus tachycardia at a rate of [address] segment elevation or signs of ischemia. There is no ectopy. Cardiac Monitoring: Normal sinus rhythm at 93 Imaging studies: x-ray of the left foot: Multiple foot fractures as per [facility] X-ray of the left ankle: no obvious fractures Chest x-ray: bilateral opacities as per [facility] HPI: 69 year old Female arrives for evaluation of left ankle and foot pain. patient explains that her was away in [place] and the phone rang yesterday and she believed it was a call from him. she moved quickly to answer the phone and fell down injuring her left foot and ankle. PAST MEDICAL HISTORY: See Below, PAST SURGICAL HISTORY: See Below, SOCIAL HISTORY: See Below, HOME MEDICATIONS: See list ALLERGIES: see list VITALS: See Below PHYSICAL EXAMINATION: HEENT: Head - normocephalic and atraumatic Pupils are equal, round, and reactive to light. Extraocular eye muscles are intact, and sclera are anicteric. Nose - moist nasal mucosa without discharge. Mouth - moist buccal mucosa. Oropharynx is nonerythematous and there is no tonsillar exudate or edema noted. Neck: Supple; no JVD, nuchal rigidity, cervical lymphadenopathy, or auscultated bruits. Heart: Regular rate and rhythm. There is a normal S1 and S2 with no murmurs, clicks, or gallops appreciated. Lungs: Diminished breath sounds in all lung nieves with no wheezes or rales. Abdomen: Soft, completely nontender, nondistended, with good bowel sounds. There are no palpable pulsatile masses or hepatosplenomegaly. There is no guarding, rigidity, or rebound noted. Extremities: Erythema noted over both lower extremities with some edema about the left foot. The patient has pain to palpation over the dorsal surface of the left foot specifically over the fifth metatarsal. Patient has some noted skin ulcerations over the right mid tib-fib region. She describes these as chronic. Skin: warm and dry with good turgor and no rashes. Emergency department course: The patient was evaluated in room A-9. A complete history and physical was performed. IV lock was initiated and labs were drawn as above. Upon presentation from EMS, the patient's O2 saturation was 58%. The patient was placed on a nonrebreather mask on 15 L of oxygen. Patient's blood pressure systolically was 50. The patient was bolused with 500 cc of saline. We obtained plain films of the left foot and ankle as well as the chest. It was fairly difficult to maintain O2 saturations near 90%. Chest x- ray was concerning for lung opacities even though the patient denies any description of cough or fever. She went for CT scan of the chest to further characterize these findings on the chest x-ray. This revealed bilateral pulmonary consolidations consistent with pneumonia. I discussed the case with the [facility] and they will evaluate for further inpatient care. They have ordered IV cefepime. Patient will also have an upper respiratory BioFire test done at this time. I have personally spent greater than 45 minutes of critical care time in the direct management of this patient. This includes bedside care, interpretation of diagnostic studies, and testing, discussion with consultants, patient, and family members, and other required patient management activities. This 45minutes is in excess of all separately billable procedures. Past Med/Surg History Problem List (Updated 11/09/24 @ 07:09 by Davida Osborn DO) Bilateral interstitial pneumonia (Acute) Hypotension (Acute) Hypoxia (Acute) Fall (Acute) Foot fracture, left (Acute) Type 2 diabetes mellitus Closed fracture of left lower extremity Hypocalcemia Hyperkalemia Hyponatremia Hypotension Acute hypoxic respiratory failure Hypomagnesemia (Acute) Cellulitis of right leg (Acute) Acute hyperglycemia (Acute) Cellulitis (Acute) Sepsis (Acute) Hypomagnesemia Diabetic ulcer of right great toe Demand ischemia Severe sepsis Nocturnal hypoxemia due to emphysema currently using 4L O2 at night Dyslipidemia HTN (hypertension) Morbid obesity due to excess calories COPD (chronic obstructive pulmonary disease) Stenosis of right subclavian artery (Acute) PAD (peripheral artery disease) (Acute) CAD (coronary artery disease) Type 2 diabetes mellitus with diabetic neuropathy Medical History Carotid artery stenosis GERD without esophagitis History of stroke History of nonmelanoma skin cancer Right inguinal hernia Sensorineural hearing loss SVT (supraventricular tachycardia) Urge incontinence Diabetic macular edema Diabetic retinopathy, nonproliferative Surgical History History of cholecystectomy Hx of sinus surgery Status post breast lumpectomy Hx of tubal ligation H/O: hysterectomy H/O cardiac radiofrequency ablation History of right-sided carotid endarterectomy S/P carpal tunnel release S/P femoropopliteal bypass surgery S/P drug eluting coronary stent placement S/P CABG x 3 Family History Other Cancer Diabetes Hypertension Social History Smoking Status: Former smoker Tobacco Type: Cigarettes Second Hand Exposure: No; Do You Dip or Chew Tobacco: No; Hx Alcohol Use: No Hx Substance Use: No Preferred Language: Puerto Rican Communication Ability: Effective Search Analyst Required: No Beliefs That Will Affect Care: None Current Living Situation: Spouse and Family Feels Safe at Home: Yes Assistive Devices: Cane and Walker Allergies Allergies Allergy/AdvReac Type Severity Reaction Status Date / Time paroxetine Allergy Severe HIVES;ANAPHYLAXIS-GENERIC Verified 08/26/24 17:38 BRAND nickel Allergy Intermediate RASH Verified 08/26/24 17:38 Penicillins Allergy Intermediate RASH Verified 08/26/24 17:38 Sulfa (Sulfonamide Allergy Intermediate RASH Verified 08/26/24 17:38 Antibiotics) doxepin AdvReac Intermediate HYPOTENSION Verified 08/26/24 17:38 Home Meds Home Medications Medication Instructions Recorded Confirmed albuterol sulfate 90 mcg/actuation 2 puff inhalation Q4H PRN 01/18/23 11/09/24 aerosol inhaler COUGH/WHEEZING amitriptyline 50 mg tablet 50 mg PO HS 01/18/23 11/09/24 aspirin 81 mg chewable tablet 81 mg PO QAM 01/18/23 11/09/24 atorvastatin 80 mg tablet 80 mg PO DAILY 01/18/23 11/09/24 empagliflozin 10 mg tablet 10 mg PO QAM 01/18/23 11/09/24 (Jardiance) fluticasone propionate 50 2 spray intranasal BID PRN 01/18/23 11/09/24 mcg/actuation nasal Congestion spray,suspension insulin glargine 100 unit/mL (3 30 unit subcut BID 01/18/23 11/09/24 mL) subcutaneous pen (Basaglar KwikPen U-100 Insulin) krill oil 1,000 mg-om3 130 mg-dha 1 cap PO QAM 01/18/23 11/09/24 40 mg-epa 80 [id number] cap (Krill Oil ([place] 3 and 6)) lorazepam 0.5 mg tablet 0.5 mg PO Q8H PRN ANXIETY/INSOMNIA 01/18/23 11/09/24 metformin 850 mg tablet 850 mg PO TIDM 01/18/23 11/09/24 metoprolol succinate 25 mg 25 mg PO QAM 01/18/23 11/09/24 tablet,extended release 24 hr rivaroxaban 2.5 mg tablet (Xarelto) 2.5 mg PO BID 01/18/23 11/09/24 ropinirole 0.5 mg tablet 0.5 mg PO HS 01/18/23 11/09/24 sertraline 50 mg tablet 100 mg PO QAM 01/18/23 11/09/24 tramadol 50 mg tablet 50 - 100 mg PO Q6H PRN Pain 01/18/23 11/09/24 Lactobacillus acidophilus 250 1,000 mmu cells PO DAILY 03/02/23 11/09/24 million cell capsule (Probiotic Acidophilus) cranberry fruit concentrate 250 mg 250 mg PO DAILY 03/02/23 11/09/24 chewable tablet (Azo Cranberry) clotrimazole 1 % topical cream 1 applic EXT BID PRN Skin 08/26/24 11/09/24 Irritation coenzyme Q10 100 mg capsule 100 mg PO DAILY 08/26/24 11/09/24 (CoQ-10) estradiol 0.01% (0.1 mg/gram) 0.5 g vaginal 2XWK 08/26/24 11/09/24 vaginal cream ezetimibe 10 mg tablet 10 mg PO QAM 08/26/24 11/09/24 furosemide 20 mg tablet 20 mg PO Q OTHER DAY 08/26/24 11/09/24 gabapentin 600 mg tablet 600 mg PO TID 08/26/24 11/09/24 insulin aspart See Rx Instructions .Route .COMPLEX 08/26/24 11/09/24 (niacinamide)(U-100) 100 unit/mL(3 mL) subcutaneous pen (Fiasp FlexTouch U-100 Insulin) tirzepatide 10 mg/0.5 mL 10 mg subcut WK 08/26/24 11/09/24 subcutaneous pen injector (Megan) Previous Rx's Medication Instructions Recorded oxybutynin chloride 5 mg 5 mg PO DAILY #30 tabs 05/13/24 tablet,extended release 24 hr Results & Data (ED) Vital Signs Vital Signs - 24 hr 11/09/24 02:25 11/09/24 02:28 11/09/24 02:38 Temperature 36.5 C Temperature Source Oral Pulse Rate 103 H 104 H Pulse Rate [Apical] 96 H Respiratory Rate 28 H 26 H Respiratory Effort / Characteristics Labored Labored Short of Breath Blood Pressure 73/53 L Blood Pressure [Left Arm] 102/72 Blood Pressure Mean 59 Blood Pressure Mean [Left Arm] 82 Pulse Oximetry 53 L 98 Oxygen Delivery Method Room Air Non-rebreather Oxygen Flow Rate 15 Sepsis Recent Fever Within 48 Hours No Sepsis New/Unexplained Change in Mental Status No Sepsis Action Taken by Nursing Physician Notified 11/09/24 02:41 11/09/24 02:55 11/09/24 03:01 Temperature Temperature Source Pulse Rate Pulse Rate [Apical] 96 H 98 H 94 H Respiratory Rate 26 H 22 18 Respiratory Effort / Characteristics Blood Pressure Blood Pressure [Left Arm] 91/65 L 74/58 L 76/49 L Blood Pressure Mean Blood Pressure Mean [Left Arm] 73 63 58 Pulse Oximetry 88 L 92 97 Oxygen Delivery Method Oxymask Oxymask Oxymask Oxygen Flow Rate 15 15 15 Sepsis Recent Fever Within 48 Hours Sepsis New/Unexplained Change in Mental Status Sepsis Action Taken by Nursing 11/09/24 03:06 11/09/24 03:10 11/09/24 03:12 Temperature Temperature Source Pulse Rate Pulse Rate [Apical] 93 H 92 H 92 H Respiratory Rate 20 16 16 Respiratory Effort / Characteristics Blood Pressure Blood Pressure [Left Arm] 71/47 L 69/45 L 78/53 L Blood Pressure Mean Blood Pressure Mean [Left Arm] 55 53 61 Pulse Oximetry 95 95 96 Oxygen Delivery Method Oxymask Oxymask Oxymask Oxygen Flow Rate 15 15 15 Sepsis Recent Fever Within 48 Hours Sepsis New/Unexplained Change in Mental Status Sepsis Action Taken by Nursing 11/09/24 03:15 11/09/24 03:21 11/09/24 03:25 Temperature Temperature Source Pulse Rate Pulse Rate [Apical] 92 H 93 H 94 H Respiratory Rate 16 14 20 Respiratory Effort / Characteristics Blood Pressure Blood Pressure [Left Arm] 79/59 L 73/51 L 82/57 L Blood Pressure Mean Blood Pressure Mean [Left Arm] 65 58 65 Pulse Oximetry 96 94 96 Oxygen Delivery Method Oxymask Oxymask Oxymask Oxygen Flow Rate 15 15 15 Sepsis Recent Fever Within 48 Hours Sepsis New/Unexplained Change in Mental Status Sepsis Action Taken by Nursing 11/09/24 03:50 11/09/24 03:55 11/09/24 04:00 Temperature Temperature Source Pulse Rate Pulse Rate [Apical] 96 H 93 H 94 H Respiratory Rate 18 16 18 Respiratory Effort / Characteristics Blood Pressure Blood Pressure [Left Arm] 102/73 86/68 L 104/63 Blood Pressure Mean Blood Pressure Mean [Left Arm] 82 74 76 Pulse Oximetry 93 94 94 Oxygen Delivery Method Oxymask Oxymask Oxymask Oxygen Flow Rate 15 15 15 Sepsis Recent Fever Within 48 Hours Sepsis New/Unexplained Change in Mental Status Sepsis Action Taken by Nursing 11/09/24 04:15 11/09/24 04:20 11/09/24 04:40 Temperature Temperature Source Pulse Rate Pulse Rate [Apical] 94 H 91 H 89 Respiratory Rate 16 16 16 Respiratory Effort / Characteristics Blood Pressure Blood Pressure [Left Arm] 96/74 L 100/66 100/68 Blood Pressure Mean Blood Pressure Mean [Left Arm] 81 77 78 Pulse Oximetry 92 94 92 Oxygen Delivery Method Oxymask Oxymask Oxymask Oxygen Flow Rate 15 15 Sepsis Recent Fever Within 48 Hours Sepsis New/Unexplained Change in Mental Status Sepsis Action Taken by Nursing 11/09/24 05:00 11/09/24 05:05 11/09/24 05:15 Temperature Temperature Source Pulse Rate Pulse Rate [Apical] 88 88 90 Respiratory Rate 16 16 18 Respiratory Effort / Characteristics Blood Pressure Blood Pressure [Left Arm] 82/51 L 85/58 L 79/64 L Blood Pressure Mean Blood Pressure Mean [Left Arm] 61 67 69 Pulse Oximetry 91 91 91 Oxygen Delivery Method Non-rebreather Non-rebreather Non-rebreather Oxygen Flow Rate 15 15 15 Sepsis Recent Fever Within 48 Hours Sepsis New/Unexplained Change in Mental Status Sepsis Action Taken by Nursing 11/09/24 05:35 11/09/24 05:50 11/09/24 06:12 Temperature Temperature Source Pulse Rate 90 Pulse Rate [Apical] 92 H 89 Respiratory Rate 20 18 Respiratory Effort / Characteristics Blood Pressure Blood Pressure [Left Arm] 89/65 L 102/52 L Blood Pressure Mean Blood Pressure Mean [Left Arm] 73 68 Pulse Oximetry 93 93 Oxygen Delivery Method Oxymask Oxymask Oxygen Flow Rate 15 15 Sepsis Recent Fever Within 48 Hours Sepsis New/Unexplained Change in Mental Status Sepsis Action Taken by Nursing Laboratory Data 11/09/24 02:44 11/09/24 02:44 Lab Results 11/09/24 11/09/24 11/09/24 Range/Units 02:38 02:40 02:44 WBC 10.15 (4.8-10.8) K/ul RBC 5.53 H (4.20-5.40) M/uL Hgb 13.6 (12.0-16.0) g/dl POC Hgb 15.3 (12.0-16.0) g/dl Hct 46.7 (37.0-47.0) % POC Hct 45 (37-47) % MCV 84.4 (80.0-100.0) fL MCH 24.6 L (25.0-34.0) pg MCHC 29.1 L (32.0-36.0) g/dL RDW Std Deviation 64.7 H (36.4-46.3) fL RDW Coeff of Janice 21.8 H (11.5-14.5) % Plt Count 212 (130-400) K/uL MPV 10.6 (9.4-12.4) fL Immature Gran % (Auto) 0.4 % Neut % (Auto) 81.2 % Lymph % (Auto) 11.2 % [place] % (Auto) 6.4 % Eos % (Auto) 0.6 % Baso % (Auto) 0.2 % Neut # (Auto) 8.24 H (1.40-6.50) K/uL Lymph # (Auto) 1.14 L (1.20-3.40) K/uL [place] # (Auto) 0.65 H (0.11-0.59) K/uL Eos # (Auto) 0.06 (0.00-0.50) K/uL Baso # (Auto) 0.02 (0.00-0.20) K/uL Immature Gran # (Auto) 0.04 (0.01-0.20) K/uL Anisocytosis Present VBG pH 7.27 L (7.36-7.41) VBG pCO2 64 H (38-50) mmHg VBG pO2 35 mmHg VBG HCO3 29 mmol/L VBG O2 Saturation < 60.0 % VBG Base Excess 0.9 mEq/L POC Sodium 135 (135-144) mmol/L Sodium 133 L (136-145) mmol/L POC Potassium 5.8 H (3.3-5.0) mmol/L Potassium 5.7 H (3.5-5.1) mmol/L POC Chloride 99 L (101-112) mmol/L Chloride 99 (98-107) mmol/L Carbon Dioxide 27 (21-32) mmol/L POC Total CO2 25 (24-31) mmol/L Anion Gap 7 (3-11) POC Anion Gap 17.0 (16-25) mmol/L POC BUN 24 H (7-18) mg/dl BUN 23 (6-23) mg/dl Creatinine 1.03 (0.6-1.2) mg/dl POC Creatinine 1.1 (0.6-1.3) mg/dl Est Cr Clr Drug Dosing Not Reportable eGFR 58.86 BUN/Creatinine Ratio 22.3 H (10-20) Glucose 216 H (70-99(Fasting)) mg/dl POC Glucose (other) 213 H (70-99) mg/dl Calcium 8.5 L (8.6-10.3) mg/dl POC Ioniz Calcium Nely 1.13 (1.12-1.32) mmol/l Total Bilirubin 0.4 (0.2-1.0) mg/dl AST 19 (13-39) U/L ALT 16 (7-52) U/L Alkaline Phosphatase 106 H (34-104) U/L Troponin I High Sens 11.6 (0-14) pg/ml B-Natriuretic Peptide 117 H (0-100) pg/ml Total Protein 7.3 (6.0-8.3) gm/dl Albumin 4.0 (3.4-5.0) gm/dl Globulin 3.3 (2.5-4.0) gm/dl Albumin/Globulin Ratio 1.2 (0.9-2) Administered Medications Discontinued Medications Albuterol (Albut/Ipratrop 3mg/0.5mg Neb 3 Ml Vial) 3 ml NEB NOW STA; Protocol Stop: 11/09/24 05:49 Last Admin: 11/09/24 06:05 Dose: 3 ml Documented By: sharan Dextrose (Dextrose 50% 50 Ml Syringe) 50 ml IV NOW ONE Stop: 11/09/24 05:58 Last Admin: 11/09/24 06:47 Dose: 50 ml Documented By: RAYMUNDO Sodium Chloride (Nss) 500 mls @ 999 mls/hr IV .Q31M ONE Stop: 11/09/24 03:29 Last Infusion: 11/09/24 03:51 Dose: Infused Documented By: Admin: 11/09/24 03:02 Dose: 999 mls/hr Documented By: RAYMUNDO Calcium Chloride 1,000 mg/ (Dextrose) 60 mls @ 240 mls/hr IV NOW STA Stop: 11/09/24 06:16 Last Admin: 11/09/24 06:48 Dose: 240 mls/hr Documented By: RAYMUNDO Insulin Human Regular 10 units (/ Syringe) 10 mls @ 30 mls/min IV ONE ONE Stop: 11/09/24 06:16 Last Admin: 11/09/24 06:48 Dose: 30 mls/min Documented By: RAYMUNDO Co-signed By: sharan Ioversol (Optiray 320 125ml) 118 ml IV ONCE ONE Stop: 11/09/24 05:35 Last Admin: 11/09/24 05:34 Dose: 118 ml Documented By: MAXIM Methylprednisolone (Methylprednisolone 125 Mg/2 Ml Vial) 125 mg IV NOW STA Stop: 11/09/24 05:49 Last Admin: 11/09/24 06:05 Dose: 125 mg Documented By: abl Imaging Data Radiologist's Impression: Ankle X-Ray 11/09/24 02:44 EXAM: XR ankle LT min 3V routine CLINICAL HISTORY: Fall. TECHNIQUE: X-ray images of the left ankle were obtained in anteroposterior (AP), lateral, and mortise projections. COMPARISON: No prior studies available for comparison. FINDINGS: Bone Structure: Bone structure is normal and aligned. No evidence of fracture or dislocation. No osseous lesions or abnormalities identified. Osteopeneia. Joint Spaces: Joint spaces are normal. No evidence of joint dislocation or subluxation. Soft Tissues: Soft tissues appear normal and unremarkable. No soft tissue swelling, calcifications, or foreign bodies noted. Vascular atheromatous calcifications. Additional Findings: Plantar bony calcaneal spur. IMPRESSION: 1. No evidence of acute fracture or dislocation. 2. Osteopeneia. 3. Plantar bony calcaneal spur. Disclaimer: A subtle bone abnormality or fracture may not be readily apparent on X-rays, thus clinical correlation and further imaging including follow-up CT, MRI, or follow-up X-rays are advised as needed. Electronically signed by Stephane Thornton 11-09-2024 03:55 AM Chest X-Ray 11/09/24 02:44 EXAM: XR chest 1V portable CLINICAL HISTORY: hypoxia TECHNIQUE: A radiograph of the chest was acquired. COMPARISON: 04/28/2024 12:15:20 BEHAVIORAL HEALTH TECH. FINDINGS: Apparent cardiomegaly is detected. A few suspicious reticulonodular opacities are noted involving the bilateral lung nieves, more on the left side. A few atelectatic bands are noted in the left mid and lower zones. The rest of the findings are unchanged compared to the prior radiograph. No pleural effusion is detected. No acute osseous abnormality is seen. IMPRESSION: Apparent cardiomegaly is detected. A few suspicious reticulonodular opacities are noted involving the bilateral lung nieves, more on the left side. A few atelectatic bands are noted in the left mid and lower zones. A CT scan is suggested for better evaluation of clinical indications. The rest of the findings are unchanged compared to the prior radiograph. Electronically signed by Scar Baron 11-09-2024 03:57 AM Foot X-Ray 11/09/24 02:44 EXAM: XR foot LT min 3V routine CLINICAL HISTORY: Fall. TECHNIQUE: X-ray images of the left foot were obtained in anteroposterior (AP), lateral, and oblique projections. COMPARISON: No prior studies available for comparison. FINDINGS: Bone Structure: Fracture of the 5th metatarsal base along with the base of the 4th and 5th proximal phalanges. Mild gapping of the 5th metatarsal base fracture ends. No significant displacement. Osteopenia. Joint Spaces: Joint spaces are normal. No evidence of joint dislocation or subluxation. Soft Tissues: Soft tissues appear normal and unremarkable. No soft tissue swelling, calcifications, or foreign bodies noted. Additional Findings: Calcaneal bone spur. IMPRESSION: 1. Fracture of the 5th metatarsal base along with the base of the 4th and 5th proximal phalanges. Mild gapping of the 5th metatarsal base fracture ends. No significant displacement. 2. Osteopenia. Disclaimer: A subtle bone abnormality or fracture may not be readily apparent on X-rays, thus clinical correlation and further imaging including follow-up CT, MRI, or follow-up X-rays are advised as needed. Electronically signed by Stephane Thornton 11-09-2024 04:17 AM Chest CTA 11/09/24 04:46 EXAM: CT angio chest PE protocol CLINICAL HISTORY: PE TECHNIQUE: Contiguous axial images were obtained from the neck base through the upper abdomen following intravenous administration of iodinated contrast material. Angiographic images were processed, 3D MIP images were acquired for interpretation. If IV contrast material had not been administered, the likelihood of detecting abnormalities relevant to the patient's condition would have been substantially decreased. Coronal and sagittal 3-D MIPs were likewise performed and indicated to increase the sensitivity of detectin diffuse clinically relevant pathology. CT scan was performed according to ALARA (as low as reasonably achievable). COMPARISON: 11:49:56 BEHAVIORAL HEALTH TECH. FINDINGS: Mild dilatation of pulmonary trunk ,bilateral main pulmonary artery up to subsegmental level with mild tortuosity - suggest possibility of pulmonary arterial hypertension. Diffuse smooth interlobular septal thickening are noted involving bilateral lungs - suggestive of pulmonary congestion Right diaphragmatic eventration with passive basal subsegmental atelectasis of right lower lobe. Multiple subsegmental collapse consolidations are noted involving bilateral lower lobes, right middle lobe and lingula. Adequate contrast bolus without evidence of pulmonary embolism. The central airways are patent. pleural effusion. The heart, aorta are of normal size and configuration. There are coronary artery and aortic atherosclerotic calcifications. No pericardial effusion is identified. The thyroid is unremarkable. No mediastinal, hilar, or axillary lymphadenopathy is noted. No suspicious lytic or sclerotic osseous lesions are identified. IMPRESSION: Mild dilatation of pulmonary trunk ,bilateral main pulmonary artery up to subsegmental level with mild tortuosity - suggest possibility of pulmonary arterial hypertension. -stable. Diffuse smooth interlobular septal thickening are noted involving bilateral lungs - suggestive of pulmonary congestion-new finding. Right diaphragmatic eventration with passive basal subsegmental atelectasis of right lower lobe.-stable. Multiple subsegmental collapse consolidations are noted involving bilateral lower lobes, right middle lobe and lingula.-new finding. No evidence of pulmonary embolism. Electronically signed by Scar Baron 11-09-2024 06:49 AM Discharge Plan Visit Data Chief Complaint: Ankle Pain Stated Complaint: FELL YESTERDAY, ANKLE PAIN ED Provider: Davida Osborn Discharge Problem: Foot fracture, left, Fall, Hypoxia, Hypotension, Bilateral interstitial pneumonia Condition: Critical Forms Stand Alone Forms: My [facility] Prescriptions Prescriptions: No Action atorvastatin 80 mg tablet 80 mg PO DAILY metformin 850 mg tablet 850 mg PO TIDM tramadol 50 mg tablet 50 - 100 mg PO Q6H PRN (Reason: Pain) amitriptyline 50 mg tablet 50 mg PO HS lorazepam 0.5 mg tablet 0.5 mg PO Q8H PRN (Reason: ANXIETY/INSOMNIA) ropinirole 0.5 mg tablet 0.5 mg PO HS Rx Instructions: TAKE BEFORE NAPS & HS. aspirin 81 mg Tablet,Chewable 81 mg PO QAM metoprolol succinate 25 mg tablet extended release 24 hr 25 mg PO QAM albuterol sulfate 90 mcg/actuation HFA aerosol inhaler 2 puff INHALATION Q4H PRN (Reason: COUGH/WHEEZING) fluticasone propionate 50 mcg/actuation [place],Suspension 2 spray INTRANASAL BID PRN (Reason: Congestion) Rx Instructions: administer into each nostril sertraline 50 mg tablet 100 mg PO QAM insulin glargine [Basaglar KwikPen U-100 Insulin] 100 unit/mL (3 mL) insulin pen 30 unit SUBCUT BID Krill Oil ([place] 3 and 6) 1000-130(40-80) mg Capsule 1 cap PO QAM Jardiance 10 mg tablet 10 mg PO QAM rivaroxaban [Xarelto] 2.5 mg tablet 2.5 mg PO BID Azo Cranberry 250 mg Tablet,Chewable 250 mg PO DAILY Probiotic Acidophilus 250 million cell Capsule 1,000 mmu cells PO DAILY oxybutynin chloride 5 mg tablet extended release 24hr 5 mg PO DAILY Qty: 30 0RF Fiasp FlexTouch U-100 Insulin 100 unit/mL (3 mL) insulin pen See Rx Instructions .ROUTE .COMPLEX Rx Instructions: TAKES 26 UNITS/BREAKFAST, 18 UNITS/LUNCH, & 20 UNITS/SUPPER Mounjaro 10 mg/0.5 mL pen injector 10 mg SUBCUT WK Rx Instructions: [place] gabapentin 600 mg tablet 600 mg PO TID estradiol 0.01 % (0.1 mg/gram) cream 0.5 g VAGINAL 2XWK ezetimibe 10 mg tablet 10 mg PO QAM coenzyme Q10 [CoQ-10] 100 mg Capsule 100 mg PO DAILY furosemide 20 mg tablet 20 mg PO Q OTHER DAY clotrimazole 1 % cream 1 applic EXT BID PRN (Reason: Skin Irritation) Rx Instructions: Apply to right and left groin twice a day for 10 days Referrals Referrals: Jonny Donaldson MD [Primary Care Provider] -
--- NOTE | 2024-11-09 04:17 | XRay Report ---
EXAM: XR foot LT min 3V routine CLINICAL HISTORY: Fall. TECHNIQUE: X-ray images of the left foot were obtained in anteroposterior (AP), lateral, and oblique projections. COMPARISON: No prior studies available for comparison. FINDINGS: Bone Structure: Fracture of the 5th metatarsal base along with the base of the 4th and 5th proximal phalanges. Mild gapping of the 5th metatarsal base fracture ends. No significant displacement. Osteopenia. Joint Spaces: Joint spaces are normal. No evidence of joint dislocation or subluxation. Soft Tissues: Soft tissues appear normal and unremarkable. No soft tissue swelling, calcifications, or foreign bodies noted. Additional Findings: Calcaneal bone spur. IMPRESSION: 1. Fracture of the 5th metatarsal base along with the base of the 4th and 5th proximal phalanges. Mild gapping of the 5th metatarsal base fracture ends. No significant displacement. 2. Osteopenia. Disclaimer: A subtle bone abnormality or fracture may not be readily apparent on X-rays, thus clinical correlation and further imaging including follow-up CT, MRI, or follow-up X-rays are advised as needed. Electronically signed by Stephane Thornton 11-09-2024 04:17 AM
[2024-11-09] MEDS: OPTIRAY 320 125ml IV ONE (05:34)
--- NOTE | 2024-11-09 05:40 | History & Physical Report ---
Date of Service November 09, 2024 Assessment & Plan (1) Acute hypoxic respiratory failure: (2) Hypotension: (3) Hyponatremia: (4) Hyperkalemia: (5) Hypocalcemia: (6) Closed fracture of left lower extremity: (7) Type 2 diabetes mellitus: Plan 69-year-old female PMHx HTN, COPD, PAD with history of emergent revascularization of RLE, CAD s/p CABG x 3, T2DM with neuropathy, carotid artery stenosis, prior CVA, macular edema, anxiety and depression who presents for reported mechanical fall at home on 11/08/2024. Pt was found to be profoundly hypotensive and hypoxic upon arrival to ED. Her evaluation does reveal fx in the L foot as well as hyperkalemia, hypocalcemia, and hyponatremia. Her CXR is appearing to be suggestive of volume overload vs underlying etiology, pending chest CTA. Given her hypotension and in the setting of tachycardia, suspicious for underlying sepsis, pending lactate and procal. No source identified. Will admit for hypotension, hypoxia, and management of electrolyte disturbances. #Acute hypoxic respiratory failure/Hypotension H/o COPD and HF, on O2 at night, unable to tolerate CPAP. No concerns for breathing at this time. Received small bolus NSS (500 mL) in ED given profound hypotension with some fluid response. Remains hypotensive. Suspect underlying infection given borderline normal/high WBC, hypotension, pending lactate and UA. - CBC without leukocytosis, stable H/H; VBGs pH 7.27, CO2 64; AG 7; BNP 117 - CB C am - Lactate, procal, Mg, PT/INR pending - UA pending - EKG sinus tachycardia with NIVCD - CXR cardiomegaly, suspicious reticulonodular opacities (L > R), atelectatic bands (L) - Chest CTA pending - Blood cx pending - Last echo 2023 with EF 60-65% -- Echo pending - O2 with goal 89-93%, wean as patient tolerates -- baseline is 4L O2 HS - DuoNebs deja - SoluMedrol 125 mg IV now, 40mg IV q8hr - Vancomycin + Cefepime empirically - Cardio consulted -- appreciate input + recs - Pulm consulted -- appreciate input + recs #Hyperkalemia/Hypocalcemia/Hyponatremia Hyponatremia in setting of hyperglycemia, also with hyperkalemia and hypocalcemia. - Na 133, glucose 216 (corrected 136), K 5.7, Ca 8.5; pending Mg - BMP am - EKG sinus tachycardia -- monitor on tele - D50, Insulin 10U IV, Lokelma IV, Calcium chloride IV #Fracture LLE Mechanical fall after tripping on rug per patient, no symptoms prior to; pain managed at this time. - Foot XR (L) fx 5t metatarsal base along with the base of 4th-5th proximal phalanges, osteopenia - Ankle XR (L) no fx or dislocation - Fall precautions - Acetaminophen prn pain, HELD tramadol - caution with pain management in setting of hypotension - Waffle boot to LE - PT/OT consulted - appreciate assistance - Consider ortho vs podiatry consult #T2DM H/o DMT2, complicated by neuropathy; At home regimen includes Jardiance, Mounjaro, metformin, insulin; Gabapentin for neuropathy. - Most recent A1C 08/2024 @ 7.7% - Hold home regimen except for gabapentin - SSI - BSG ACHS - Pharm glycemic management consulted placed, appreciate assistance - Adjust regimen as needed #CAD s/p CABG x 3/PAD/Carotid artery stenosis- Xarelto - HOLD - to allow for any possible procedure as needed #HFpEF- Echo in 2023 with EF 60-65%; Jardiance; Prescribed furosemide 20mg every other day but as not been taking - HOLD Lasix #Psych- Amitriptyline, sertraline, lorazepam prn - continue #HLD- Atorvastatin, ezetimibe- continue #HTN- Metoprolol - HOLD #RLS- Ropinirole - continue Dispo: Admit, PCU VTE Prophylaxis: Heparin -- adjusted from Xarelto if pt is to need procedure This document was dictated utilizing [employer]. Please excuse any grammatical errors that may be secondary to use of this software. Admission and Anticipated Discharge Date Admission Date: 11/09/2024 History of Present Illness Chief Complaint: Ankle pain Primary Care Provider: Jonny Donaldson MD 69-year-old female PMHx HTN, COPD, PAD with history of emergent revascularization of RLE, CAD s/p CABG x 3, T2DM with neuropathy, carotid artery stenosis, prior CVA, macular edema, anxiety and depression who presents for reported mechanical fall at home on 11/08/2024. She states that she had tripped on her rug and fallen down. No symptoms prior to to include chest pain, SOB, dizziness, or pre-syncope. Did not hit head, on Xarelto. States that her pain is overall well controlled at this time. She had no concerns with her breathing and states that she would not have come in on the day of arrival had her foot not been of concern. She does utilize O2 at night but unable to tolerate CPAP at n ight. Usually 4L O2 at night. She denies chest pain, SOB, palpitations, abdominal pain, N/V/D/C, abnormal numbness/tingling, F/C, LUTS, weakness, or syncope. Her daughter is present in the room at time of visit. ED evaluation reveals CBC without leukocytosis, H&H 13.6/46.7; PT/INR pending; VBG's pH 7.24, pCO2 64; CMP sodium 133, potassium 5.7, glucose 216, BUN/creatinine ratio 22.3, calcium 8.5, alkaline phosphatase 106; troponin 11.6; BNP 117; lactate pending; Pro-Rodney pending; UA pending; L ankle XR no evidence of acute fracture or dislocation, osteopenia, plantar bony calcaneal spur; L foot XR fracture fifth metatarsal base along with base of 4th and 5th proximal phalanges, mild gapping fifth metatarsal base fracture ends, no significant displacement, osteopenia; CXR cardiomegaly, few suspicious reticulonodular opacities bilateral lung nieves more on left side, few atelectatic bands noted in left mid and lower zones, CT suggested; chest CTA pending; EKG sinus tachycardia at 104 bpm.; Provided 500 mL NSS in ED. Please see Dr. Puentes's attestation for adjustments/additions to treatment plan. Allergies Allergy/AdvReac Type Severity Reaction Status Date / Time paroxetine Allergy Severe HIVES;ANAPHYLAXIS-GENERIC Verified 08/26/24 17:38 BRAND nickel Allergy Intermediate RASH Verified 08/26/24 17:38 Penicillins Allergy Intermediate RASH Verified 08/26/24 17:38 Sulfa (Sulfonamide Allergy Intermediate RASH Verified 08/26/24 17:38 Antibiotics) doxepin AdvReac Intermediate HYPOTENSION Verified 08/26/24 17:38 Home Medications Medication Instructions Recorded Confirmed Type albuterol sulfate 90 mcg/actuation 2 puff inhalation Q4H PRN 01/18/23 11/09/24 History aerosol inhaler COUGH/WHEEZING amitriptyline 50 mg tablet 50 mg PO HS 01/18/23 11/09/24 History aspirin 81 mg chewable tablet 81 mg PO QAM 01/18/23 11/09/24 History atorvastatin 80 mg tablet 80 mg PO DAILY 01/18/23 11/09/24 History empagliflozin 10 mg tablet 10 mg PO QAM 01/18/23 11/09/24 History (Jardiance) fluticasone propionate 50 2 spray intranasal BID PRN 01/18/23 11/09/24 History mcg/actuation nasal Congestion spray,suspension insulin glargine 100 unit/mL (3 30 unit subcut BID 01/18/23 11/09/24 History mL) subcutaneous pen (Basaglar KwikPen U-100 Insulin) krill oil 1,000 mg-om3 130 mg-dha 1 cap PO QAM 01/18/23 11/09/24 History 40 mg-epa 80 [id number]-[id number]-astax cap (Krill Oil (Adams 3 and 6)) lorazepam 0.5 mg tablet 0.5 mg PO Q8H PRN ANXIETY/INSOMNIA 01/18/23 11/09/24 History metformin 850 mg tablet 850 mg PO TIDM 01/18/23 11/09/24 History metoprolol succinate 25 mg 25 mg PO QAM 01/18/23 11/09/24 History tablet,extended release 24 hr rivaroxaban 2.5 mg tablet (Xarelto) 2.5 mg PO BID 01/18/23 11/09/24 History ropinirole 0.5 mg tablet 0.5 mg PO HS 01/18/23 11/09/24 History sertraline 50 mg tablet 100 mg PO QAM 01/18/23 11/09/24 History tramadol 50 mg tablet 50 - 100 mg PO Q6H PRN Pain 01/18/23 11/09/24 History Lactobacillus acidophilus 250 1,000 mmu cells PO DAILY 03/02/23 11/09/24 History million cell capsule (Probiotic Acidophilus) cranberry fruit concentrate 250 mg 250 mg PO DAILY 03/02/23 11/09/24 History chewable tablet (Azo Cranberry) clotrimazole 1 % topical cream 1 applic EXT BID PRN Skin 08/26/24 11/09/24 History Irritation coenzyme Q10 100 mg capsule 100 mg PO DAILY 08/26/24 11/09/24 History (CoQ-10) estradiol 0.01% (0.1 mg/gram) 0.5 g vaginal 2XWK 08/26/24 11/09/24 History vaginal cream ezetimibe 10 mg tablet 10 mg PO QAM 08/26/24 11/09/24 History furosemide 20 mg tablet 20 mg PO Q OTHER DAY 08/26/24 11/09/24 History gabapentin 600 mg tablet 600 mg PO TID 08/26/24 11/09/24 History insulin aspart See Rx Instructions .Route .COMPLEX 08/26/24 11/09/24 History (niacinamide)(U-100) 100 unit/mL(3 mL) subcutaneous pen (Fiasp FlexTouch U-100 Insulin) tirzepatide 10 mg/0.5 mL 10 mg subcut WK 08/26/24 11/09/24 History subcutaneous pen injector (Nicoro) oxybutynin chloride 5 mg 5 mg PO UD 11/09/24 11/09/24 History tablet,extended release 24 hr Past Med/Surg History Problem List (Updated 11/09/24 @ 12:20 by Davey Wyatt MD) CHF (congestive heart failure) Septic shock Acute hypoxic on chronic hypercapnic respiratory failure Bilateral interstitial pneumonia (Acute) Hypotension (Acute) Hypoxia (Acute) Fall (Acute) Foot fracture, left (Acute) Type 2 diabetes mellitus Closed fracture of left lower extremity Hypocalcemia Hyperkalemia Hyponatremia Hypotension Acute hypoxic respiratory failure Hypomagnesemia (Acute) Cellulitis of right leg (Acute) Acute hyperglycemia (Acute) Cellulitis (Acute) Sepsis (Acute) Hypomagnesemia Diabetic ulcer of right great toe Demand ischemia Severe sepsis Nocturnal hypoxemia due to emphysema currently using 4L O2 at night Dyslipidemia HTN (hypertension) Morbid obesity due to excess calories COPD (chronic obstructive pulmonary disease) Stenosis of right subclavian artery (Acute) PAD (peripheral artery disease) (Acute) CAD (coronary artery disease) Type 2 diabetes mellitus with diabetic neuropathy Medical History Carotid artery stenosis GERD without esophagitis History of stroke History of nonmelanoma skin cancer Right inguinal hernia Sensorineural hearing loss SVT (supraventricular tachycardia) Urge incontinence Diabetic macular edema Diabetic retinopathy, nonproliferative Surgical History History of cholecystectomy Hx of sinus surgery Status post breast lumpectomy Hx of tubal ligation H/O: hysterectomy H/O cardiac radiofrequency ablation History of right-sided carotid endarterectomy S/P carpal tunnel release S/P femoropopliteal bypass surgery S/P drug eluting coronary stent placement S/P CABG x 3 Family History Other Cancer Diabetes Hypertension Social History Smoking Status: Former smoker Tobacco Type: Cigarettes Second Hand Exposure: No; Do You Dip or Chew Tobacco: No; Hx Alcohol Use: No Hx Substance Use: No Preferred Language: Jordanian Communication Ability: Effective 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 Oil Well Required: No Beliefs That Will Affect Care: None Current Living Situation: Spouse and Family Feels Safe at Home: Yes Assistive Devices: Cane and Denture - Upper Review of Systems Review of Systems: All systems reviewed & are unremarkable except as noted in Subjective Physical Exam Physical Exam: General: No acute distress Skin: Warm and dry Head: Normocephalic, atraumatic Eyes: PERRL, conjunctivae clear, sclera non-icteric ENT: External ear and ear canal without swelling; nose atraumatic; good dentition, tongue normal appearance, pharynx normal Neck: Supple, no LAD Cardio: RRR, systolic murmur auscultated, no G/R, S1 and S2 normal Resp: Decreased breath sounds throughout, on Oxymask; No wheezes, rales, or rhonchi Abdomen: Soft, symmetric, nontender; No masses or hepatosplenomegaly; Bowel sounds normoactive MSK: No deformities; pulses palpable and equal; trace pitting edema BLE to knees; pulses faint but palpable BLE at ankles; RLE wrapped in bandage. Neuro: Awake, alert; Sensation intact bilaterally; CN grossly intact Psych: Appropriate mood and affect; good judgement and insight. Daughter present in room at time of visit. Results & Data Results & Data Vital Signs (Past 12 Hours) Vital Signs Temp Pulse Pulse Resp BP BP Pulse Ox 11/09/24 05:35 92 H 20 89/65 L 93 11/09/24 05:15 90 18 79/64 L 91 11/09/24 05:05 88 16 85/58 L 91 11/09/24 05:00 88 16 82/51 L 91 11/09/24 04:40 89 16 100/68 92 11/09/24 04:20 91 H 16 100/66 94 11/09/24 04:15 94 H 16 96/74 L 92 11/09/24 04:00 94 H 18 104/63 94 11/09/24 03:55 93 H 16 86/68 L 94 11/09/24 03:50 96 H 18 102/73 93 11/09/24 03:25 94 H 20 82/57 L 96 11/09/24 03:21 93 H 14 73/51 L 94 11/09/24 03:15 92 H 16 79/59 L 96 11/09/24 03:12 92 H 16 78/53 L 96 11/09/24 03:10 92 H 16 69/45 L 95 11/09/24 03:06 93 H 20 71/47 L 95 11/09/24 03:01 94 H 18 76/49 L 97 11/09/24 02:55 98 H 22 74/58 L 92 11/09/24 02:41 96 H 26 H 91/65 L 88 L 11/09/24 02:38 96 H 26 H 102/72 98 11/09/24 02:28 104 H 11/09/24 02:25 36.5 C 103 H 28 H 73/53 L 53 L O2 Del Method O2 Flow Rate 11/09/24 05:35 Oxymask 11/09/24 05:15 Non-rebreather 11/09/24 05:05 Non-rebreather 11/09/24 05:00 Non-rebreather 11/09/24 04:40 Oxymask 11/09/24 04:20 Oxymask 11/09/24 04:15 Oxymask 11/09/24 04:00 Oxymask 15 11/09/24 03:55 Oxymask 15 11/09/24 03:50 Oxymask 15 11/09/24 03:25 Oxymask 15 11/09/24 03:21 Oxymask 15 11/09/24 03:15 Oxymask 15 11/09/24 03:12 Oxymask 15 11/09/24 03:10 Oxymask 15 11/09/24 03:06 Oxymask 15 11/09/24 03:01 Oxymask 15 11/09/24 02:55 Oxymask 15 11/09/24 02:41 Oxymask 11/09/24 02:38 Non-rebreather 11/09/24 02:28 11/09/24 02:25 Room Air Laboratory Results 11/09/24 11/09/24 11/09/24 02:44 02:40 02:38 WBC 10.15 RBC 5.53 H Hgb 13.6 POC Hgb 15.3 Hct 46.7 POC Hct 45 MCV 84.4 MCH 24.6 L MCHC 29.1 L RDW Std Deviation 64.7 H RDW Coeff of Janice 21.8 H Plt Count 212 MPV 10.6 Immature Gran % (Auto) 0.4 Neut % (Auto) 81.2 Lymph % (Auto) 11.2 [place] % (Auto) 6.4 Eos % (Auto) 0.6 Baso % (Auto) 0.2 Neut # (Auto) 8.24 H Lymph # (Auto) 1.14 L [place] # (Auto) 0.65 H Eos # (Auto) 0.06 Baso # (Auto) 0.02 Immature Gran # (Auto) 0.04 Anisocytosis Present VBG pH 7.27 L VBG pCO2 64 H VBG pO2 35 VBG HCO3 29 VBG O2 Saturation < 60.0 VBG Base Excess 0.9 POC Sodium 135 Sodium 133 L POC Potassium 5.8 H Potassium 5.7 H POC Chloride 99 L Chloride 99 Carbon Dioxide 27 POC Total CO2 25 Anion Gap 7 POC Anion Gap 17.0 POC BUN 24 H BUN 23 Creatinine 1.03 POC Creatinine 1.1 Est Cr Clr Drug Dosing Not Reportable eGFR 58.86 BUN/Creatinine Ratio 22.3 H Glucose 216 H POC Glucose (other) 213 H Calcium 8.5 L POC Ioniz Calcium Nley 1.13 Total Bilirubin 0.4 AST 19 ALT 16 Alkaline Phosphatase 106 H Troponin I High Sens 11.6 B-Natriuretic Peptide 117 H Total Protein 7.3 Albumin 4.0 Globulin 3.3 Albumin/Globulin Ratio 1.2 Diagnostic Findings Ankle X-Ray 09/13/25 02:44 EXAM: XR ankle LT min 3V routine CLINICAL HISTORY: Fall. TECHNIQUE: X-ray images of the left ankle were obtained in anteroposterior (AP), lateral, and mortise projections. COMPARISON: No prior studies available for comparison. FINDINGS: Bone Structure: Bone structure is normal and aligned. No evidence of fracture or dislocation. No osseous lesions or abnormalities identified. Osteopeneia. Joint Spaces: Joint spaces are normal. No evidence of joint dislocation or subluxation. Soft Tissues: Soft tissues appear normal and unremarkable. No soft tissue swelling, calcifications, or foreign bodies noted. Vascular atheromatous calcifications. Additional Findings: Plantar bony calcaneal spur. IMPRESSION: 1. No evidence of acute fracture or dislocation. 2. Osteopeneia. 3. Plantar bony calcaneal spur. Disclaimer: A subtle bone abnormality or fracture may not be readily apparent on X-rays, thus clinical correlation and further imaging including follow-up CT, MRI, or follow-up X-rays are advised as needed. Electronically signed by Stephane Thornton 11-09-2024 03:55 AM Chest X-Ray 11/09/24 02:44 EXAM: XR chest 1V portable CLINICAL HISTORY: hypoxia TECHNIQUE: A radiograph of the chest was acquired. 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 FINDINGS: Apparent cardiomegaly is detected. A few suspicious reticulonodular opacities are noted involving the bilateral lung nieves, more on the left side. A few atelectatic bands are noted in the left mid and lower zones. The rest of the findings are unchanged compared to the prior radiograph. No pleural effusion is detected. No acute osseous abnormality is seen. IMPRESSION: Apparent cardiomegaly is detected. A few suspicious reticulonodular opacities are noted involving the bilateral lung nieves, more on the left side. A few atelectatic bands are noted in the left mid and lower zones. A CT scan is suggested for better evaluation of clinical indications. The rest of the findings are unchanged compared to the prior radiograph. Electronically signed by Scar Baron 11-09-2024 03:57 AM Foot X-Ray 11/09/24 02:44 EXAM: XR foot LT min 3V routine CLINICAL HISTORY: Fall. TECHNIQUE: X-ray images of the left foot were obtained in anteroposterior (AP), lateral, and oblique projections. COMPARISON: No prior studies available for comparison. FINDINGS: Bone Structure: Fracture of the 5th metatarsal base along with the base of the 4th and 5th proximal phalanges. Mild gapping of the 5th metatarsal base fracture ends. No significant displacement. Osteopenia. Joint Spaces: Joint spaces are normal. No evidence of joint dislocation or subluxation. Soft Tissues: Soft tissues appear normal and unremarkable. No soft tissue swelling, calcifications, or foreign bodies noted. Additional Findings: Calcaneal bone spur. IMPRESSION: 1. Fracture of the 5th metatarsal base along with the base of the 4th and 5th proximal phalanges. Mild gapping of the 5th metatarsal base fracture ends. No significant displacement. 2. Osteopenia. Disclaimer: A subtle bone abnormality or fracture may not be readily apparent on X-rays, thus clinical correlation and further imaging including follow-up CT, MRI, or follow-up X-rays are advised as needed. Electronically signed by Stephane Thornton 11-09-2024 04:17 AM Medications Administered 500 mL NSS ECG Additional Comments: Sinus tachycardia, nonspecific IV conduction block 104 bpm, NC 162, QRS 134, QT/QTc 370/46, PRT 20/-22/39 Code Status & VTE Plan Code Status Full Supervising Physician Co-Signing Physician Notes Attending addendum: I have physically seen this patient, have supervised the CHRISTINA's activities, and agree with the H&P unless as otherwise noted. Assessment and Plan: The patient is a 69-year-old female with past medical history including hypertension, COPD, PAD with history of emergent revascularization of right lower extremity, CAD status post CABG x 3, diabetes mellitus type 2, diabetic peripheral neuropathy, carotid artery stenosis, prior CVA, macular edema, anxiety and depression, nocturnal hypoxemia with 4 L oxygen dependency, who presents to the emergency department after mechanical fall at home and development of left foot pain. X-rays in the emergency department revealed fractures of the left fifth MTP, and fourth and fifth proximal phalanx fractures. Laboratory workup revealed hyperkalemia, hypocalcemia, and hyponatremia. Chest x-ray suggestive of volume overload, however, CTA chest was negative for PE but did suggest pneumonia versus chronic interstitial lung disease at the bases bilaterally. Patient was found to be hypotensive and tachycardic, concerning for possible sepsis, and additional labs including lactate and procalcitonin were added. Patient was [facility] the [facility] and treatment. Acute on chronic respiratory failure with hypoxia/hypotension- Patient does require 4 L of oxygen at night, and reports that she has been unable to tolerate CPAP in the past. Blood pressure initially responded to 500 mL of normal saline, but then again began to drop. WBC relatively elevated for her at 10.15. Evaluate further laboratories including urine cultures, blood cultures, lactate, procalcitonin, magnesium Most recent echocardiogram 2023 showed ejection fraction of 60-65%, I have ordered a follow-up echocardiogram Duonebs every 4 hours while awake and every 2 hours when necessary. Solu-Medrol 125 mg IV now, then 40 mg IV every 8 hours Vancomycin IV per pharmacokinetic monitoring Cefepime 2 g IV every 12 hours Patient and daughter were warranted her pressure may continue to drop, and if so, with likely need to have pressors, and she was agreeable to this intervention if needed she will be admitted to PCU overflow in the ICU Consult pulmonology Consult cardiology Hyperkalemia- Potassium 5.7 on admission give Lokelma 10 mg p.o. now, calcium chloride 1 g IV, 50 mL of D50 followed by 10 units regular insulin IV Recheck laboratories in 2 hours Chronic anticoagulation- Presumptively for severe PAD/CAD- Hold Xarelto Start heparin drip, standard dosing, without bolus and follow-up per protocol Diabetes mellitus- Holding Jardiance, Mounjaro, metformin Insulin Accu-Cheks with sliding scale as noted Consult pharmacy for glycemic management Expected changes in control associated with IV steroids CAD/status post CABG x 3/PAD/carotid artery stenosis- Holding Xarelto and changing over to heparin drip as noted CAD/hypertension/HFpEF- Holding metoprolol, furosemide due to low blood pressure Hyperlipidemia- Continue atorvastatin and Zetia RLS- Continue ropinirole PG Care Time/CCT Total # of Minutes Spent Total Time Spent with Patient: Total time spent is greater than 50% in coordination of care (as documented) at patient's floor/unit and/or counseling patient: Coding Level of Care Code 84413 INT INP/OBS CARE 3/75MIN Diagnoses Acute hypoxic respiratory failure J96.01 Hypotension I95.9 Hyponatremia E87.1 Hyperkalemia E87.5 Hypocalcemia E83.51 Closed fracture of left lower extremity S82.92XA Type 2 diabetes mellitus E11.9
[2024-11-09] MEDS ORDERED: NovoLIN-R INSULIN PER UNIT CHARGE IV STA (05:57)
[2024-11-09] MEDS: ALBUT/IPRATROP 3MG/0.5MG NEB 3 ML VIAL NEB STA (06:05)
[2024-11-09] MEDS ORDERED: VANCOMYCIN CONSULT ACTIVE PRN (06:07)
[2024-11-09] MEDS: DEXTROSE 50% 50 ML SYRINGE IV ONE (06:47)
[2024-11-09] MEDS: CALCIUM CHLORIDE 10% 1,000 MG in DEXTROSE 5% 50 ML IV STA (06:48)
[2024-11-09] MEDS: INSULIN HUMAN REGULAR PER UNIT 10 UNITS in SYRINGE 9.9 ML IV ONE (06:48)
--- NOTE | 2024-11-09 06:49 | CT Scan Report ---
EXAM: CT angio chest PE protocol CLINICAL HISTORY: PE TECHNIQUE: Contiguous axial images were obtained from the neck base through the upper abdomen following intravenous administration of iodinated contrast material. Angiographic images were processed, 3D MIP images were acquired for interpretation. If IV contrast material had not been administered, the likelihood of detecting abnormalities relevant to the patient's condition would have been substantially decreased. Coronal and sagittal 3-D MIPs were likewise performed and indicated to increase the sensitivity of detectin diffuse clinically relevant pathology. CT scan was performed according to ALARA (as low as reasonably achievable). 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 Diffuse smooth interlobular septal thickening are noted involving bilateral lungs - suggestive of pulmonary congestion Right diaphragmatic eventration with passive basal subsegmental atelectasis of right lower lobe. Multiple subsegmental collapse consolidations are noted involving bilateral lower lobes, right middle lobe and lingula. Adequate contrast bolus without evidence of pulmonary embolism. The central airways are patent. pleural effusion. The heart, aorta are of normal size and configuration. There are coronary artery and aortic atherosclerotic calcifications. No pericardial effusion is identified. The thyroid is unremarkable. No mediastinal, hilar, or axillary lymphadenopathy is noted. No suspicious lytic or sclerotic osseous lesions are identified. IMPRESSION: Mild dilatation of pulmonary trunk ,bilateral main pulmonary artery up to subsegmental level with mild tortuosity - suggest possibility of pulmonary arterial hypertension. -stable. Diffuse smooth interlobular septal thickening are noted involving bilateral lungs - suggestive of pulmonary congestion-new finding. Right diaphragmatic eventration with passive basal subsegmental atelectasis of right lower lobe.-stable. Multiple subsegmental collapse consolidations are noted involving bilateral lower lobes, right middle lobe and lingula.-new finding. No evidence of pulmonary embolism. Electronically signed by Scar Baron 11-09-2024 06:49 AM
[2024-11-09] MEDS ORDERED: STAT IV Infusion **Titration per Protocol STA (07:10)
[2024-11-09] MEDS: SODIUM ZIRCONIUM CYCLOSILICATE 10 GM PACKET PO STA (07:10)
[2024-11-09] MEDS: CEFEPIME 2000MG 2,000 MG/20 ML SYR IV STA (07:11)
[2024-11-09] MEDS: VANCOMYCIN HCL 2,250 MG in SODIUM CHLORIDE 0.9% 500 ML IV ONE (07:12)
[2024-11-09] MEDS: CEFEPIME 2000MG 2,000 MG/20 ML SYR IV ONE (07:14)
[2024-11-09] MEDS: NOREPINEPHRINE/D5W 4 MG/250 ML PLCT IV SCH (07:16)
[2024-11-09] MEDS: SODIUM CHLORIDE 0.9% 1,000 ML IV ONE (07:31)
[2024-11-09 07:40] LABS: Anion Gap 5.0 (3-11); Blood Urea Nitrogen 22.0 mg/dl (6-23); Calcium 8.2 mg/dl (8.6-10.3); Carbon Dioxide 30.0 mmol/L (21-32); Chloride 99.0 mmol/L (98-107); Creatinine Clr Calc Pharmacy 86.8 ml/min; Glucose 153.0 mg/dl (70-99(Fasting)); Magnesium 1.9 mg/dl (1.7-2.4); Potassium 6.2 mmol/L (3.5-5.1); Sodium 134.0 mmol/L (136-145)
[2024-11-09 07:41] LABS: INR 1.0 (0.9-1.1); Partial Thromboplastin Time 29 Seconds (21-31); Prothrombin Time 10.4 Seconds (9.0-12.0)
[2024-11-09 07:52] LABS: Base Excess VBG -1.7 mEq/L; HCO3 VBG 28 mmol/L; Oxygen Saturation VBG 92.3 %; PCO2 VBG 72 mmHg (38-50); PO2 VBG 73 mmHg; pH VBG 7.20 (7.36-7.41)
[2024-11-09] MEDS: MAGNESIUM SULFATE / D5W 1 GM/100 ML BAG IV ONE (08:16)
[2024-11-09] MEDS: ALBUT/IPRATROP 3MG/0.5MG NEB 3 ML VIAL NEB SCH (08:20)
[2024-11-09 08:26] LABS: Chlamydia pneumoniae PCR Not Detected (NotDetected); Coronavirus 229E PCR Not Detected (NotDetected); Coronavirus CoV-2 (COVID19)PCR Not Detected (NotDetected); Coronavirus HKU1 PCR Not Detected (NotDetected); Coronavirus NL63 PCR Not Detected (NotDetected); Coronavirus OC43PCR Not Detected (NotDetected); Human Metapneumovirus PCR Not Detected (NotDetected); Parainfluenza Virus 1 PCR Not Detected (NotDetected); Parainfluenza Virus 2 PCR Not Detected (NotDetected); Parainfluenza Virus 3 PCR Not Detected (NotDetected); Parainfluenza Virus 4 PCR Not Detected (NotDetected); Respiratory Syncytial VirusPCR Not Detected (NotDetected); Rhinovirus/Enterovirus PCR Not Detected (NotDetected)
--- NOTE | 2024-11-09 08:34 | Hospitalist Progress Note ---
Date of Service November 09, 2024 Assessment & Plan (1) Acute hypoxic respiratory failure: (2) Hypotension: (3) Hyponatremia: (4) Hyperkalemia: (5) Hypocalcemia: (6) Closed fracture of left lower extremity: (7) Type 2 diabetes mellitus: Plan 69-year-old female PMHx HTN, COPD, PAD with history of emergent revascularization of RLE, CAD s/p CABG x 3, T2DM with neuropathy, carotid artery stenosis, prior CVA, macular edema, anxiety and depression who presents for reported mechanical fall at home on 11/08/2024. Pt was found to be profoundly hypotensive and hypoxic upon arrival to ED. Her evaluation does reveal fx in the L foot as well as hyperkalemia, hypocalcemia, and hyponatremia. Her CXR is appearing to be suggestive of volume overload vs underlying etiology, pending chest CTA. Given her hypotension and in the setting of tachycardia, suspicious for underlying sepsis, pending lactate and procal. No source identified. Will admit for hypotension, hypoxia, and management of electrolyte disturbances. Sepsis, ?Interstitial PNA CTAchest: Multiple subsegmental collapse consolidations with bilateral lower lobes, suggestive of mild PAH, mild pulmonary congestion, no evidence of PE No leukocytosis, mild respiratory acidosis on admission, BMP 117 Lactic normal. Biofire negative. UA pending PCT pending Blood cultures pending UA pending Patient endorses history of fluid overload. Does not usually take her Lasix at home. Echo 02/2023: EF 60 to 65%grade 1 diastolic dysfunction. Mild aortic valve calcification. In ER is with progressive hypercapnic respiratory failure, switched from OxyMask to BiPAP Cefepime/vancomycin continued Received Solu-Medrol 125 mg IV Is with some basilar crackles CTA shows mild congestion however no florid edema. BNP is mildly elevated. Blood pressure initially fluid responsive. On stat reassessment in the morning for concerns of hypotension and hypoxia blood pressure progressively dropping despite additional fluids 79/63 at bedside. Levophed was ordered. Patient had received steroids. On auscultation no overt rales, additional 1 L bolus was ordered with respiratory evaluation evaluation to be performed skilled nursing through. Was tolerating this well however after initial improvement in blood pressure and Levophed weaned to 0.01 subsequently did have hypotension to low 80s. Titrate levo to goal MAP 6570, follow UOP. She shows evidence of renal dysfunction with reduced urine output and progressive hyperkalemia. Admitted to the ICU - Random cortisol 13, inappropriate given degree of hypotension. Hydrocortisone continued Acute hypoxic hypercapnic respiratory failure, history of COPD Denies home oxygen use. --> On OxyMask at bedside assessment VBG with progressive hypercapnic acidosis, repeat 7.20/72/73/28 while on OxyMask. Switched to BiPAP Evaluated and treated on admission for possible pneumonia noted Hyperkalemia/hypocalcemia K 5.8, received 100 cc of fluid, uptrending at 6.2 Received insulin/dextrose Received calcium chloride 1 g at approximately 0700 hrs. Repeat calcium gluconate 1 g given approximately 0900 Lokelma x 1 given. Additional 3 doses of Lokelma ordered Fluid and pressure support as noted Creatinine is at baseline, BMP trended. High risk for developing perfusion injury. Left lower extremity fracture on x-ray, sensation to foot is intact, PT pulse is intact, no pain or sensation loss suggestive of compartment syndrome at time of morning reassessment Mechanical Fall, Left metatarsal fracture Foot/ankle left x-ray: Fifth metatarsal base fracture, no ankle fracture Sensation is intact, PT pulses intact. No neurovascular compromise on exam Waffle boot No open fracture, no first metatarsal fracture, no translation/displacement more than 10 degrees on imaging.? Walking boot, given mild gapping of fracture ends will review with podiatry - RIGHT meza is with 2 small fluid bullae + 2 ulcers on the meza. No tenderness/warmth/erythema. No R foot tenderness. - No neck pain, no LOC, no head strike Type II DM SSI, ICU hyperglycemia protocol CAD s/p CABG x 3, PAD, carotid stenosis, HFpEF, LBBB Xarelto temporarily converted to heparin gtt. in case procedures are required during admission Echo 2023: EF 60 to 65%, grade 1 diastolic dysfunction. 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 No territorial ST/T wave changes - trop negative - Pt denies chest pain - Updated echo for ?RHF pending Anxiety/depression: Amitriptyline, sertraline continued. Hold home lorazepam while hypotensive Hyperlipidemia: Continue statin/Zetia Hypertension: Metoprolol held for hypotension Restless leg syndrome: Ropinirole continued Subjective Seen at the bedside Denies CP/Chest pressure no dyspnea on oxymask denies fever, chills +L foot pain +fatigue reports she does not take her lasix at home. She is not sure if she has a history of CHF, but has been prescribed lasix in the past denies abdominal pain Reports she came in because she tripped ov [employer] rug and fell, but did not feel all that bad until getting to the ER> had some shortness of breath after arriving, this has resolved on oxymask Physical Exam Physical Exam: General: A&Ox3. NAD. Cooperative. HEENT: Atraumatic, normocephalic. VIsion and hearing grossly intact. PERLAA. Pulm: Lungs diminished, no rales. Trace basilar crackles. On oxymask at time of assessment Cardiac: RRR, -mrg. Radial pulses intact and symmetrical. Abdominal: Nontender, nondistended, soft. BS present. Ext: Warm, dry. L foot TTP. PT pulse intact. sensation to soft touch intact. ankle dorsi/plantarflexion intact. R meza with 2x fluid filled blisters ~3cm diameter, 2x ulcers. No warmth/tenderness/discharge. Overlying dressing C/D/I Results & Data Results & Data Vital Signs (Past 12 Hours) Vital Signs Temp Pulse Pulse Resp BP BP Pulse Ox 11/09/24 07:55 129/79 11/09/24 07:51 87 16 113/84 92 11/09/24 07:42 89 12 118/79 93 11/09/24 07:33 88 14 118/80 92 11/09/24 07:30 88 14 112/82 93 11/09/24 07:25 144/93 H 11/09/24 07:18 92 H 20 88/62 L 94 11/09/24 07:09 88 22 79/64 L 94 11/09/24 07:03 88 13 83/60 L 92 11/09/24 06:57 85 16 79/63 L 92 11/09/24 06:12 90 11/09/24 05:50 89 18 102/52 L 93 11/09/24 05:35 92 H 20 89/65 L 93 11/09/24 05:15 90 18 79/64 L 91 11/09/24 05:05 88 16 85/58 L 91 11/09/24 05:00 88 16 82/51 L 91 11/09/24 04:40 89 16 100/68 92 11/09/24 04:20 91 H 16 100/66 94 11/09/24 04:15 94 H 16 96/74 L 92 11/09/24 04:00 94 H 18 104/63 94 11/09/24 03:55 93 H 16 86/68 L 94 11/09/24 03:50 96 H 18 102/73 93 11/09/24 03:25 94 H 20 82/57 L 96 11/09/24 03:21 93 H 14 73/51 L 94 11/09/24 03:15 92 H 16 79/59 L 96 11/09/24 03:12 92 H 16 78/53 L 96 11/09/24 03:10 92 H 16 69/45 L 95 11/09/24 03:06 93 H 20 71/47 L 95 11/09/24 03:01 94 H 18 76/49 L 97 11/09/24 02:55 98 H 22 74/58 L 92 11/09/24 02:41 96 H 26 H 91/65 L 88 L 11/09/24 02:38 96 H 26 H 102/72 98 11/09/24 02:28 104 H 11/09/24 02:25 36.5 C 103 H 28 H 73/53 L 53 L O2 Del Method O2 Flow Rate 11/09/24 07:55 11/09/24 07:51 11/09/24 07:42 11/09/24 07:33 11/09/24 07:30 11/09/24 07:25 11/09/24 07:18 11/09/24 07:09 11/09/24 07:03 11/09/24 06:57 11/09/24 06:12 11/09/24 05:50 Oxymask 11/09/24 05:35 Oxymask 11/09/24 05:15 Non-rebreather 11/09/24 05:05 Non-rebreather 11/09/24 05:00 Non-rebreather 11/09/24 04:40 Oxymask 11/09/24 04:20 Oxymask 15 11/09/24 04:15 Oxymask 11/09/24 04:00 Oxymask 15 11/09/24 03:55 Oxymask 15 11/09/24 03:50 Oxymask 15 11/09/24 03:25 Oxymask 15 11/09/24 03:21 Oxymask 15 11/09/24 03:15 Oxymask 15 11/09/24 03:12 Oxymask 15 11/09/24 03:10 Oxymask 15 11/09/24 03:06 Oxymask 15 11/09/24 03:01 Oxymask 15 11/09/24 02:55 Oxymask 15 11/09/24 02:41 Oxymask 15 11/09/24 02:38 Non-rebreather 15 11/09/24 02:28 11/09/24 02:25 Room Air PG Care Time/CCT Total # of Minutes Spent Total Time Spent with Patient: Total time spent is greater than 50% in coordination of care (as documented) at patient's floor/unit and/or counseling patient: Coding Level of Care Code 66382 SUB INP/OBS CARE 3/50MIN Diagnoses Acute hypoxic respiratory failure J96.01 Hypotension I95.9 Hyponatremia E87.1 Hyperkalemia E87.5 Hypocalcemia E83.51 Closed fracture of left lower extremity S82.92XA Type 2 diabetes mellitus E11.9
[2024-11-09] MEDS: HEPARIN 25000 UNIT/500 ML D5W 25,000 UNITS/500 ML BAG IV SCH (09:11)
[2024-11-09] MEDS: CALCIUM GLUCONATE 1,000 MG/60 ML BAG IV STA (09:14)
[2024-11-09 09:41] LABS: Lipase 34.0 U/L (11-82)
--- NOTE | 2024-11-09 10:09 | Critical Care Consultation ---
Date of Consultation November 09, 2024 Assessment & Plan (1) Acute hypoxic on chronic hypercapnic respiratory failure: Patient reported history of COPD. Hypercapnic on VBG. Will obtain an ABG as values can be difficult to interpret in patients with shock. If respiratory failure continues to progress, patient will need intubation mechanical ventilation for additional support. Will treat his severe At this time. Patient on broad-spectrum antibiotics and atypical coverage with doxycycline. Urine Legionella antigen sent. Respiratory viral panel negative. MRSA screen pending. CT chest not typical of routine bacterial pneumonia. Atypical pathologies remain possible along with potential organizing pneumonia. Hydrocortisone 50 mg every 6 hours added given the severity of the patient's pneumonia. Troponin initially was unremarkable. EKG without ischemic changes. (2) Bilateral interstitial pneumonia: See comments above. (3) Septic shock: Judicious use of fluids given the patient's hypoxic respiratory failure. Echo pending to rule out cardiogenic causes. Vasopressors as needed to maintain maps above 65. Will favor Levophed at this time. Hold home antihypertensives and beta-blockers. (4) Closed fracture of left lower extremity: Pain control and immobilizer. No signs of compartment syndrome at present. (5) PAD (peripheral artery disease): Patient chronically on Xarelto as an outpatient. Heparin initiated by primary service. (6) Hyperkalemia: No obvious cause at this time aside for potential developing hypovolemic/septic shock leading to PK. PK not evidence on recent labs, but will recheck. Follow urine output closely. Patient started on Lokelma. Provide crystalloids as needed. Plan I spent 20 minutes reviewing the electronic medical record/relevant imaging, 30 minutes discussing diagnosis and treatment plan with patient/family, and plan minutes discussing care plan with ancillary staff such as RT/RN/pharmacist/special procedures technologist/PT/OT/other consulting medical services. CRITICAL CARE TIME I have personally spent 60 minutes of critical care time in the direct management of this patient. This is a life/limb threatening event. This includes time spent evaluating patient, direct bedside care, chart review, placing orders, interpretation of diagnostic studies, discussion with consultants, patient, and family members, as well as other required patient management activities. This time is exclusive of all separately billable procedures, and teaching time and separate from and in addition to any other critical care service time. History of Present Illness Reason for Consultation: Septic shock and respiratory failure Attending Physician: Jonny Lopez MD History of Present Illness 69-year-old female with a past medical history of peripheral artery disease, tobacco abuse, carotid artery stenosis, diabetes mellitus, CVA, anxiety and depression who had a mechanical fall 11/08/2024. In the ER she was found to be hypotensive and hypoxemic. She was currently on BiPAP. She has mild shortness of breath. Denying any chest pain at present. Requiring low-dose Levophed. Chest CT with multifocal infiltrates and mild pulmonary artery dilation. No pulmonary embolism identified. No significant pleural effusions. Labs significant for mild hyponatremia and hyperkalemia. Procalcitonin unremarkable. Hemoglobin stable. Patient with mild lymphopenia. Respiratory viral panel on admission negative. UA is pending. VBG revealed acute hypercapnic respiratory failure. Allergies Allergy/AdvReac Type Severity Reaction Status Date / Time paroxetine Allergy Severe HIVES;ANAPHYLAXIS-GENERIC Verified 08/26/24 17:38 BRAND nickel Allergy Intermediate RASH Verified 08/26/24 17:38 Penicillins Allergy Intermediate RASH Verified 08/26/24 17:38 Sulfa (Sulfonamide Allergy Intermediate RASH Verified 08/26/24 17:38 Antibiotics) doxepin AdvReac Intermediate HYPOTENSION Verified 08/26/24 17:38 Home Medications Medication Instructions Recorded Confirmed Type albuterol sulfate 90 mcg/actuation 2 puff inhalation Q4H PRN 01/18/23 11/09/24 History aerosol inhaler COUGH/WHEEZING amitriptyline 50 mg tablet 50 mg PO HS 01/18/23 11/09/24 History aspirin 81 mg chewable tablet 81 mg PO QAM 01/18/23 11/09/24 History atorvastatin 80 mg tablet 80 mg PO DAILY 01/18/23 11/09/24 History empagliflozin 10 mg tablet 10 mg PO QAM 01/18/23 11/09/24 History (Jardiance) fluticasone propionate 50 2 spray intranasal BID PRN 01/18/23 11/09/24 History mcg/actuation nasal Congestion spray,suspension insulin glargine 100 unit/mL (3 30 unit subcut BID 01/18/23 11/09/24 History mL) subcutaneous pen (Basaglar KwikPen U-100 Insulin) krill oil 1,000 mg-om3 130 mg-dha 1 cap PO QAM 01/18/23 11/09/24 History 40 mg-epa 80 kt-mo0-faq-astax cap (Krill Oil ([place] 3 and 6)) lorazepam 0.5 mg tablet 0.5 mg PO Q8H PRN ANXIETY/INSOMNIA 01/18/23 11/09/24 History metformin 850 mg tablet 850 mg PO TIDM 01/18/23 11/09/24 History metoprolol succinate 25 mg 25 mg PO QAM 01/18/23 11/09/24 History tablet,extended release 24 hr rivaroxaban 2.5 mg tablet (Xarelto) 2.5 mg PO BID 01/18/23 11/09/24 History ropinirole 0.5 mg tablet 0.5 mg PO HS 01/18/23 11/09/24 History sertraline 50 mg tablet 100 mg PO QAM 01/18/23 11/09/24 History tramadol 50 mg tablet 50 - 100 mg PO Q6H PRN Pain 01/18/23 11/09/24 History Lactobacillus acidophilus 250 1,000 mmu cells PO DAILY 03/02/23 11/09/24 History million cell capsule (Probiotic Acidophilus) cranberry fruit concentrate 250 mg 250 mg PO DAILY 03/02/23 11/09/24 History chewable tablet (Azo Cranberry) clotrimazole 1 % topical cream 1 applic EXT BID PRN Skin 08/26/24 11/09/24 History Irritation coenzyme Q10 100 mg capsule 100 mg PO DAILY 08/26/24 11/09/24 History (CoQ-10) estradiol 0.01% (0.1 mg/gram) 0.5 g vaginal 2XWK 08/26/24 11/09/24 History vaginal cream ezetimibe 10 mg tablet 10 mg PO QAM 08/26/24 11/09/24 History furosemide 20 mg tablet 20 mg PO Q OTHER DAY 08/26/24 11/09/24 History gabapentin 600 mg tablet 600 mg PO TID 08/26/24 11/09/24 History insulin aspart See Rx Instructions .Route .COMPLEX 08/26/24 11/09/24 History (niacinamide)(U-100) 100 unit/mL(3 mL) subcutaneous pen (Fiasp FlexTouch U-100 Insulin) tirzepatide 10 mg/0.5 mL 10 mg subcut WK 08/26/24 11/09/24 History subcutaneous pen injector (Mounpabloro) oxybutynin chloride 5 mg 5 mg PO UD 11/09/24 11/09/24 History tablet,extended release 24 hr Patient History Medical History Carotid artery stenosis GERD without esophagitis History of stroke History of nonmelanoma skin cancer Right inguinal hernia Sensorineural hearing loss SVT (supraventricular tachycardia) Urge incontinence Diabetic macular edema Diabetic retinopathy, nonproliferative Surgical History History of cholecystectomy Hx of sinus surgery Status post breast lumpectomy Hx of tubal ligation H/O: hysterectomy H/O cardiac radiofrequency ablation History of right-sided carotid endarterectomy S/P carpal tunnel release S/P femoropopliteal bypass surgery S/P drug eluting coronary stent placement S/P CABG x 3 Family History Other Cancer Diabetes Hypertension Social History Smoking Status: Former smoker Tobacco Type: Cigarettes Second Hand Exposure: No; Do You Dip or Chew Tobacco: No; Hx Alcohol Use: No Hx Substance Use: No Preferred Language: Hebrew Communication Ability: Effective Lead Operator Required: No Beliefs That Will Affect Care: None Current Living Situation: Spouse and Family Feels Safe at Home: Yes Assistive Devices: Cane and Walker Review of Systems Review of Systems: All systems reviewed & are unremarkable except as noted in HPI & below Physical Exam Physical Exam: Constitutional: Patient appears to be of their stated age. Patient is in no apparent distress. Patient is well-developed. Eyes: Pupils are equal round and reactive to light. Conjunctivae are normal. Anicteric sclera. Ears nose, mouth and throat: Mallampati class 2. Normal posterior oropharynx. Uvula is midline. BiPAP mask in place. Neck: Trachea is midline. Visual inspection is normal. Respiratory: Tachypneic. Decreased lung sounds bilaterally with mild rhonchi at the bases. Cardiovascular: Regular rate and rhythm. No murmurs. No edema. Gastrointestinal: Normal bowel sounds, soft, nontender and nondistended. No hepatosplenomegaly noted. Musculoskeletal: No cyanosis. Patient is able to move all extremities. Skin: No rashes, warm dry and intact. Neurologic: No obvious focal neurological deficits seen. Psychiatric: Alert and oriented x3 with a euthymic affect. Results & Data Results & Data Vital Signs (Past 12 Hours) Vital Signs Temp Pulse Pulse Resp BP BP Pulse Ox 11/09/24 09:25 90/72 L 11/09/24 09:25 91 H 24 90/72 L 94 11/09/24 09:20 110/83 11/09/24 09:15 89/66 L 11/09/24 09:10 84/68 L 11/09/24 09:06 85 23 83/67 L 97 11/09/24 09:03 84 24 82/67 L 97 11/09/24 08:51 85 21 82/67 L 97 11/09/24 08:48 85 21 84/63 L 98 11/09/24 08:35 83/68 L 11/09/24 08:32 87 24 97 11/09/24 08:30 87 20 85/69 L 95 11/09/24 08:25 87/69 L 11/09/24 08:24 86 20 87/66 L 94 11/09/24 08:16 84/68 L 11/09/24 08:12 91 H 24 82/62 L 93 11/09/24 08:09 92 H 14 85/71 L 92 11/09/24 07:55 129/79 11/09/24 07:55 129/79 11/09/24 07:51 87 16 113/84 92 11/09/24 07:42 89 12 118/79 93 11/09/24 07:33 88 14 118/80 92 11/09/24 07:30 88 14 112/82 93 11/09/24 07:25 144/93 H 11/09/24 07:18 92 H 20 88/62 L 94 11/09/24 07:09 88 22 79/64 L 94 11/09/24 07:03 88 13 83/60 L 92 11/09/24 06:57 85 16 79/63 L 92 11/09/24 06:12 90 11/09/24 05:50 89 18 102/52 L 93 11/09/24 05:35 92 H 20 89/65 L 93 11/09/24 05:15 90 18 79/64 L 91 11/09/24 05:05 88 16 85/58 L 91 11/09/24 05:00 88 16 82/51 L 91 11/09/24 04:40 89 16 100/68 92 11/09/24 04:20 91 H 16 100/66 94 11/09/24 04:15 94 H 16 96/74 L 92 11/09/24 04:00 94 H 18 104/63 94 11/09/24 03:55 93 H 16 86/68 L 94 11/09/24 03:50 96 H 18 102/73 93 11/09/24 03:25 94 H 20 82/57 L 96 11/09/24 03:21 93 H 14 73/51 L 94 11/09/24 03:15 92 H 16 79/59 L 96 11/09/24 03:12 92 H 16 78/53 L 96 11/09/24 03:10 92 H 16 69/45 L 95 11/09/24 03:06 93 H 20 71/47 L 95 11/09/24 03:01 94 H 18 76/49 L 97 11/09/24 02:55 98 H 22 74/58 L 92 11/09/24 02:41 96 H 26 H 91/65 L 88 L 11/09/24 02:38 96 H 26 H 102/72 98 11/09/24 02:28 104 H 11/09/24 02:25 36.5 C 103 H 28 H 73/53 L 53 L O2 Del Method O2 Flow Rate FiO2 11/09/24 09:25 11/09/24 09:25 11/09/24 09:20 11/09/24 09:15 11/09/24 09:10 11/09/24 09:06 11/09/24 09:03 11/09/24 08:51 11/09/24 08:48 11/09/24 08:35 11/09/24 08:32 70 11/09/24 08:30 11/09/24 08:25 11/09/24 08:24 11/09/24 08:16 11/09/24 08:12 11/09/24 08:09 11/09/24 07:55 11/09/24 07:55 11/09/24 07:51 11/09/24 07:42 11/09/24 07:33 11/09/24 07:30 11/09/24 07:25 11/09/24 07:18 11/09/24 07:09 11/09/24 07:03 11/09/24 06:57 11/09/24 06:12 11/09/24 05:50 Oxymask 15 11/09/24 05:35 Oxymask 15 11/09/24 05:15 Non-rebreather 15 11/09/24 05:05 Non-rebreather 15 11/09/24 05:00 Non-rebreather 15 11/09/24 04:40 Oxymask 15 11/09/24 04:20 Oxymask 15 11/09/24 04:15 Oxymask 11/09/24 04:00 Oxymask 15 11/09/24 03:55 Oxymask 15 11/09/24 03:50 Oxymask 15 11/09/24 03:25 Oxymask 15 11/09/24 03:21 Oxymask 15 11/09/24 03:15 Oxymask 15 11/09/24 03:12 Oxymask 15 11/09/24 03:10 Oxymask 15 11/09/24 03:06 Oxymask 15 11/09/24 03:01 Oxymask 15 11/09/24 02:55 Oxymask 15 11/09/24 02:41 Oxymask 15 11/09/24 02:38 Non-rebreather 15 11/09/24 02:28 11/09/24 02:25 Room Air Coding Level of Care Code 66729 CRITICAL CARE 1ST 30-74M Diagnoses Acute hypoxic on chronic hypercapnic respiratory failure J96.01; J96.12 Bilateral interstitial pneumonia J84.9 Septic shock A41.9; R65.21 Closed fracture of left lower extremity S82.92XA PAD (peripheral artery disease) I73.9 Hyperkalemia E87.5
[2024-11-09 10:44] LABS: iSTAT Art Bld Gas Base Excess -2.0 meg/L (-9-1.8); iSTAT Art Bld Gas pCO2 Correct 67 mmHg (35-46); iSTAT Art Bld Gas pH Corrected 7.197 (7.35-7.45); iSTAT Arterial Blood Gas pO2 C 72
[2024-11-09] MEDS ORDERED: GLUCAGON FOR INJ 1 MG VIAL SQ PRN (10:53)
[2024-11-09] MEDS ORDERED: PHARMACY GLYCEMIC MGMT CONSULT PRN (10:53)
[2024-11-09] MEDS ORDERED: ACETAMINOPHEN 325 MG TAB PO PRN (10:53)
[2024-11-09] MEDS ORDERED: ONDANSETRON INJ 2 MG/ML 2 ML VIAL IV PRN (10:53)
[2024-11-09] MEDS ORDERED: GLUCOSE 40% GEL 15 GM TUBE PO PRN (10:53)
[2024-11-09] MEDS ORDERED: CARBOHYDRATES FOR HYPOGLYCEMIA PO PRN (10:53)
[2024-11-09] MEDS ORDERED: GLUCOSE 10 TAB/TUBE PO PRN (10:53)
[2024-11-09] MEDS ORDERED: MELATONIN 3 MG TAB PO PRN (10:53)
[2024-11-09] MEDS ORDERED: FLUTICASONE PROPIONATE NA SPR 16 GM BTL PRN (10:53)
[2024-11-09] MEDS ORDERED: DEXTROSE 50% 50 ML SYRINGE IV PRN (10:53)
[2024-11-09] MEDS: INSULIN HUMAN REGULAR PER UNIT 10 UNITS in SYRINGE 9.9 ML IV STA (10:58)
[2024-11-09] MEDS: DEXTROSE 50% 50 ML SYRINGE IV STA (10:58)
[2024-11-09] MEDS: Heparin IV Adult Wt-Based Standard *NO* INITIAL Bolus Protocol IV ONE (10:58)
[2024-11-09] MEDS ORDERED: methylPREDNISolone 10 mg/mL (For Ped Dose < 7mg) IV SCH (11:00)
[2024-11-09] MEDS ORDERED: Nursing to Pharmacy Communication SCH (11:30)
[2024-11-09] MEDS: SERTRALINE HCL 100 MG TABLET PO SCH (11:33)
[2024-11-09] MEDS: GABAPENTIN 600 MG TAB PO SCH (11:33)
[2024-11-09] MEDS: EZETIMIBE 10 MG TAB PO SCH (11:33)
[2024-11-09] MEDS: ATORVASTATIN 40 MG TAB PO SCH (11:33)
[2024-11-09] MEDS: SODIUM ZIRCONIUM CYCLOSILICATE 10 GM PACKET PO SCH (11:33)
[2024-11-09 11:42] LABS: Anion Gap 4.0 (3-11); Blood Urea Nitrogen 19.0 mg/dl (6-23); Calcium 8.7 mg/dl (8.6-10.3); Carbon Dioxide 28.0 mmol/L (21-32); Chloride 101.0 mmol/L (98-107); Creatinine Clr Calc Pharmacy 92.2 ml/min; Glucose 215.0 mg/dl (70-99(Fasting)); Potassium 6.0 mmol/L (3.5-5.1); Sodium 133.0 mmol/L (136-145)
[2024-11-09] MEDS: DOXYCYCLINE HYCLATE 100 MG in DEXTROSE 5% MINI-B 100 ML IV SCH (11:45)
[2024-11-09 11:55] LABS: Appearance Urine Clear (Clear); Bacteria Urine Automated None Seen (None Seen); Cast Urine Automated 0-2 /lpf (0-2); Epithelial Cell Urine Auto 0-2 /hpf (0-2); Glucose Urine UA 2+ (Negative); RBC Urine Automated 0-2 /hpf (0-2); WBC Urine Automated 0-5 /hpf (0-5)
[2024-11-09] MEDS: LANTUS PER UNIT CHARGE SQ ONE (12:12)
[2024-11-09] MEDS: INSULIN ASPART PER UNIT CHARGE SC SCH ×2 (12:12→17:13)
[2024-11-09] MEDS: SODIUM CHLORIDE 0.9% 500 ML IV SCH (12:20)
--- NOTE | 2024-11-09 12:20 | Cardiology Consultation ---
Date of Consultation November 09, 2024 Assessment & Plan (1) CHF (congestive heart failure): (2) CAD (coronary artery disease): (3) PAD (peripheral artery disease): Plan 1. Congestive heart failure: I believe there is an element of congestive heart failure and agree with diuresis. The cause is not clear, I do not believe she had an acute ischemic event. I do not know her left ventricular function. We may need to alter her medications once we have her echocardiogram results. 2. Coronary disease: She has a history of coronary disease however her initial troponin was negative. This does not appear to be an acute ischemic event but I do want to get an electrocardiogram to confirm that there are no electrocardiographic changes. 3. Peripheral arterial disease: She has widespread atherosclerosis but that should not be a factor here. History of Present Illness Reason for Consultation: CHF Attending Physician: Chris Puentes MD History of Present Illness This is a 69-year-old woman with a history of hypertension, COPD and known coronary artery disease. She had bypass surgery and has peripheral arterial disease as well as carotid arterial disease including a prior CVA. She presented following a mechanical fall on November 08, 2024 and was found to be hypotensive and hypoxic. She was admitted with hypercapnic respiratory failure. We were consulted for congestive heart failure. Her presenting chest x-ray does not show congestive heart failure and a chest CTA today suggest possible pulmonary arterial hypertension and is suggestive of pulmonary congestion. There was no evidence of pulmonary embolism. Her high- sensitivity troponin is not elevated on presentation. An echocardiogram is pending, her echocardiogram from February 2023 showed normal left ventricular function. Her electrocardiogram Is difficult to obtain a history as she is on BiPAP and communication is difficult. She denies current symptoms of chest discomfort. She does confirm that she slipped on a rug although it is unusual that she presented with respiratory failure at the same time so perhaps she fell or lost her balance due to hypoxia. Allergies Allergy/AdvReac Type Severity Reaction Status Date / Time paroxetine Allergy Severe HIVES;ANAPHYLAXIS-GENERIC Verified 08/26/24 17:38 BRAND nickel Allergy Intermediate RASH Verified 08/26/24 17:38 Penicillins Allergy Intermediate RASH Verified 08/26/24 17:38 Sulfa (Sulfonamide Allergy Intermediate RASH Verified 08/26/24 17:38 Antibiotics) doxepin AdvReac Intermediate HYPOTENSION Verified 08/26/24 17:38 Home Medications Medication Instructions Recorded Confirmed Type albuterol sulfate 90 mcg/actuation 2 puff inhalation Q4H PRN 01/18/23 11/09/24 History aerosol inhaler COUGH/WHEEZING amitriptyline 50 mg tablet 50 mg PO HS 01/18/23 11/09/24 History aspirin 81 mg chewable tablet 81 mg PO QAM 01/18/23 11/09/24 History atorvastatin 80 mg tablet 80 mg PO DAILY 01/18/23 11/09/24 History empagliflozin 10 mg tablet 10 mg PO QAM 01/18/23 11/09/24 History (Jardiance) fluticasone propionate 50 2 spray intranasal BID PRN 01/18/23 11/09/24 History mcg/actuation nasal Congestion spray,suspension insulin glargine 100 unit/mL (3 30 unit subcut BID 01/18/23 11/09/24 History mL) subcutaneous pen (Basaglar KwikPen U-100 Insulin) krill oil 1,000 mg-om3 130 mg-dha 1 cap PO QAM 01/18/23 11/09/24 History 40 mg-epa 80 lr-dp9-job-astax cap (Krill Oil ([place] 3 and 6)) lorazepam 0.5 mg tablet 0.5 mg PO Q8H PRN ANXIETY/INSOMNIA 01/18/23 11/09/24 History metformin 850 mg tablet 850 mg PO TIDM 01/18/23 11/09/24 History metoprolol succinate 25 mg 25 mg PO QAM 01/18/23 11/09/24 History tablet,extended release 24 hr rivaroxaban 2.5 mg tablet (Xarelto) 2.5 mg PO BID 01/18/23 11/09/24 History ropinirole 0.5 mg tablet 0.5 mg PO HS 01/18/23 11/09/24 History sertraline 50 mg tablet 100 mg PO QAM 01/18/23 11/09/24 History tramadol 50 mg tablet 50 - 100 mg PO Q6H PRN Pain 01/18/23 11/09/24 History Lactobacillus acidophilus 250 1,000 mmu cells PO DAILY 03/02/23 11/09/24 History million cell capsule (Probiotic Acidophilus) cranberry fruit concentrate 250 mg 250 mg PO DAILY 03/02/23 11/09/24 History chewable tablet (Azo Cranberry) clotrimazole 1 % topical cream 1 applic EXT BID PRN Skin 08/26/24 11/09/24 History Irritation coenzyme Q10 100 mg capsule 100 mg PO DAILY 08/26/24 11/09/24 History (CoQ-10) estradiol 0.01% (0.1 mg/gram) 0.5 g vaginal 2XWK 08/26/24 11/09/24 History vaginal cream ezetimibe 10 mg tablet 10 mg PO QAM 08/26/24 11/09/24 History furosemide 20 mg tablet 20 mg PO Q OTHER DAY 08/26/24 11/09/24 History gabapentin 600 mg tablet 600 mg PO TID 08/26/24 11/09/24 History insulin aspart See Rx Instructions .Route .COMPLEX 08/26/24 11/09/24 History (niacinamide)(U-100) 100 unit/mL(3 mL) subcutaneous pen (Fiasp FlexTouch U-100 Insulin) tirzepatide 10 mg/0.5 mL 10 mg subcut WK 08/26/24 11/09/24 History subcutaneous pen injector (Nicoro) oxybutynin chloride 5 mg 5 mg PO UD 11/09/24 11/09/24 History tablet,extended release 24 hr Patient History Medical History Carotid artery stenosis GERD without esophagitis History of stroke History of nonmelanoma skin cancer Right inguinal hernia Sensorineural hearing loss SVT (supraventricular tachycardia) Urge incontinence Diabetic macular edema Diabetic retinopathy, nonproliferative Surgical History History of cholecystectomy Hx of sinus surgery Status post breast lumpectomy Hx of tubal ligation H/O: hysterectomy H/O cardiac radiofrequency ablation History of right-sided carotid endarterectomy S/P carpal tunnel release S/P femoropopliteal bypass surgery S/P drug eluting coronary stent placement S/P CABG x 3 Family History Other Cancer Diabetes Hypertension Social History Smoking Status: Former smoker Tobacco Type: Cigarettes Second Hand Exposure: No; Do You Dip or Chew Tobacco: No; Hx Alcohol Use: No Hx Substance Use: No Preferred Language: Nepali Communication Ability: Effective College Advisor Required: No Beliefs That Will Affect Care: None Current Living Situation: Spouse and Family Feels Safe at Home: Yes Assistive Devices: Cane and Denture - Upper Review of Systems Review of Systems: Unobtainable due to cognitive status Physical Exam Physical Exam: Constitutional: Alert, cooperative and in mild distress. She is on BiPAP. HEENT: Unremarkable Neck: No jugular venous distention, carotid pulses are normal and equal bilaterally without bruits. Pulmonary: Clear to auscultation bilaterally. Cardiac: Regular rhythm with no murmur, gallop or rub. Abdomen: Soft, nontender with normal bowel sounds. Extremities: No edema. Neurologic: No focal findings. Skin: No rash, ecchymoses or petechiae. Results & Data Vital Signs (Past 12 Hours) Vital Signs Temp Pulse Pulse Resp BP BP Pulse Ox 11/09/24 11:30 140/106 H 11/09/24 11:15 36.8 C 94 H 16 95 11/09/24 11:00 36.8 C 94 H 20 91 11/09/24 11:00 112/71 11/09/24 11:00 112/71 11/09/24 10:48 36.7 C 90 15 91 11/09/24 10:45 129/69 11/09/24 10:42 36.6 C 90 22 93 11/09/24 10:34 106/68 11/09/24 10:34 106/68 11/09/24 10:33 91 H 21 91 11/09/24 10:15 95 H 17 11/09/24 10:12 155/81 H 11/09/24 10:12 155/81 H 11/09/24 10:09 93 H 17 11/09/24 09:25 90/72 L 11/09/24 09:25 91 H 24 90/72 L 94 11/09/24 09:20 110/83 11/09/24 09:15 89/66 L 11/09/24 09:10 84/68 L 11/09/24 09:06 85 23 83/67 L 97 11/09/24 09:03 84 24 82/67 L 97 11/09/24 08:51 85 21 82/67 L 97 11/09/24 08:48 85 21 84/63 L 98 11/09/24 08:35 83/68 L 11/09/24 08:32 87 24 97 11/09/24 08:30 87 20 85/69 L 95 11/09/24 08:25 87/69 L 11/09/24 08:24 86 20 87/66 L 94 11/09/24 08:16 84/68 L 11/09/24 08:12 91 H 24 82/62 L 93 11/09/24 08:09 92 H 14 85/71 L 92 11/09/24 07:55 129/79 11/09/24 07:55 129/79 11/09/24 07:51 87 16 113/84 92 11/09/24 07:42 89 12 118/79 93 11/09/24 07:33 88 14 118/80 92 11/09/24 07:30 88 14 112/82 93 11/09/24 07:25 144/93 H 11/09/24 07:18 92 H 20 88/62 L 94 11/09/24 07:09 88 22 79/64 L 94 11/09/24 07:03 88 13 83/60 L 92 11/09/24 06:57 85 16 79/63 L 92 11/09/24 06:12 90 11/09/24 05:50 89 18 102/52 L 93 11/09/24 05:35 92 H 20 89/65 L 93 11/09/24 05:15 90 18 79/64 L 91 11/09/24 05:05 88 16 85/58 L 91 11/09/24 05:00 88 16 82/51 L 91 11/09/24 04:40 89 16 100/68 92 11/09/24 04:20 91 H 16 100/66 94 11/09/24 04:15 94 H 16 96/74 L 92 11/09/24 04:00 94 H 18 104/63 94 11/09/24 03:55 93 H 16 86/68 L 94 11/09/24 03:50 96 H 18 102/73 93 11/09/24 03:25 94 H 20 82/57 L 96 11/09/24 03:21 93 H 14 73/51 L 94 11/09/24 03:15 92 H 16 79/59 L 96 11/09/24 03:12 92 H 16 78/53 L 96 11/09/24 03:10 92 H 16 69/45 L 95 11/09/24 03:06 93 H 20 71/47 L 95 11/09/24 03:01 94 H 18 76/49 L 97 11/09/24 02:55 98 H 22 74/58 L 92 11/09/24 02:41 96 H 26 H 91/65 L 88 L 11/09/24 02:38 96 H 26 H 102/72 98 11/09/24 02:28 104 H 11/09/24 02:25 36.5 C 103 H 28 H 73/53 L 53 L O2 Del Method O2 Flow Rate FiO2 11/09/24 11:30 11/09/24 11:15 11/09/24 11:00 11/09/24 11:00 11/09/24 11:00 11/09/24 10:48 11/09/24 10:45 11/09/24 10:42 11/09/24 10:34 11/09/24 10:34 11/09/24 10:33 11/09/24 10:15 11/09/24 10:12 11/09/24 10:12 11/09/24 10:09 11/09/24 09:25 11/09/24 09:25 11/09/24 09:20 11/09/24 09:15 11/09/24 09:10 11/09/24 09:06 11/09/24 09:03 11/09/24 08:51 11/09/24 08:48 11/09/24 08:35 11/09/24 08:32 70 11/09/24 08:30 11/09/24 08:25 11/09/24 08:24 11/09/24 08:16 11/09/24 08:12 11/09/24 08:09 11/09/24 07:55 11/09/24 07:55 11/09/24 07:51 11/09/24 07:42 11/09/24 07:33 11/09/24 07:30 11/09/24 07:25 11/09/24 07:18 11/09/24 07:09 11/09/24 07:03 11/09/24 06:57 11/09/24 06:12 11/09/24 05:50 Oxymask 15 11/09/24 05:35 Oxymask 15 11/09/24 05:15 Non-rebreather 15 11/09/24 05:05 Non-rebreather 15 11/09/24 05:00 Non-rebreather 15 11/09/24 04:40 Oxymask 15 11/09/24 04:20 Oxymask 15 11/09/24 04:15 Oxymask 11/09/24 04:00 Oxymask 15 11/09/24 03:55 Oxymask 15 11/09/24 03:50 Oxymask 15 11/09/24 03:25 Oxymask 15 11/09/24 03:21 Oxymask 15 11/09/24 03:15 Oxymask 15 11/09/24 03:12 Oxymask 15 11/09/24 03:10 Oxymask 15 11/09/24 03:06 Oxymask 15 11/09/24 03:01 Oxymask 15 11/09/24 02:55 Oxymask 15 11/09/24 02:41 Oxymask 15 11/09/24 02:38 Non-rebreather 15 11/09/24 02:28 11/09/24 02:25 Room Air Laboratory Results Cardiac Enzymes 11/09/24 Range/Units 02:44 AST 19 (13-39) U/L Troponin I High Sens 11.6 (0-14) pg/ml B-Natriuretic Peptide 117 H (0-100) pg/ml Coagulation 11/09/24 11/09/24 Range/Units 02:44 06:48 PT 10.4 (9.0-12.0) Seconds APTT 29 (21-31) Seconds B-Natriuretic Peptide 117 H (0-100) pg/ml CBC 11/09/24 Range/Units 02:44 WBC 10.15 (4.8-10.8) K/ul RBC 5.53 H (4.20-5.40) M/uL Hgb 13.6 (12.0-16.0) g/dl Hct 46.7 (37.0-47.0) % Plt Count 212 (130-400) K/uL Neut # (Auto) 8.24 H (1.40-6.50) K/uL Lymph # (Auto) 1.14 L (1.20-3.40) K/uL [place] # (Auto) 0.65 H (0.11-0.59) K/uL Eos # (Auto) 0.06 (0.00-0.50) K/uL Baso # (Auto) 0.02 (0.00-0.20) K/uL Comprehensive Metabolic Panel 11/09/24 11/09/24 11/09/24 Range/Units 02:44 06:48 11:14 Sodium 133 L 134 L 133 L (136-145) mmol/L Potassium 5.7 H 6.2 H* 6.0 H (3.5-5.1) mmol/L Chloride 99 99 101 (98-107) mmol/L Carbon Dioxide 27 30 28 (21-32) mmol/L BUN 23 22 19 (6-23) mg/dl Creatinine 1.03 0.86 0.81 (0.6-1.2) mg/dl Glucose 216 H 153 H 215 H (70-99(Fasting)) mg/dl Calcium 8.5 L 8.2 L 8.7 (8.6-10.3) mg/dl AST 19 (13-39) U/L ALT 16 (7-52) U/L Alkaline Phosphatase 106 H (34-104) U/L Total Protein 7.3 (6.0-8.3) gm/dl Albumin 4.0 (3.4-5.0) gm/dl Intake and Output 11/08/24 11/09/24 11/09/24 22:59 06:59 14:59 Intake Total 500 / 500 1780.515 / 1780.515 Output Total 1000 / 1000 Balance 500 / 500 780.515 / 780.515 Intake: IV 500 / 500 1780.515 / 1780.515 Calcium Chloride 10% 1,000 mg 60 / 60 In Dextrose 5% 50 ml @ 240 mls/ hr IV NOW STA Rx#:[id number] Calcium Gluconate 1,000 mg In 60 / 60 60 ml @ 240 mls/hr IV NOW STA Rx#:[id number] Magnesium Sulfate / D5w 1 gm In 100 / 100 100 ml @ 50 mls/hr IV ONE ONE Rx#:[id number] Norepinephrine/D5w 4 mg In 250 15.515 / 15.515 ml @ 0.01 MCG/KG/MIN 4.369 mls/ hr IV .Q24H YARITZA Rx#:[id number] Sodium Chloride 0.9% 1,000 ml @ 1000 / 1000 999 mls/hr IV .Q1H1M ONE Rx#: [id number] Sodium Chloride 0.9% 500 ml @ 500 / 500 999 mls/hr IV .Q31M ONE Rx#: [id number] Vancomycin HCl 2,250 mg In 545 / 545 Sodium Chloride 0.9% 500 ml @ 200 mls/hr IV NOW ONE Rx#: [id number] Output: Urine Amount (Catheter) 1000 / 1000 Temp Sensing [place] 1000 / 1000 Other: Weight 116.5 kg Weight Measurement Method Built in [facility] PG Care Time/CCT Total # of Minutes Spent Total Time Spent with Patient: Total time spent is greater than 50% in coordination of care (as documented) at patient's floor/unit and/or counseling patient: Coding Level of Care Code 28713 INT INP/OBS CARE 2/55MIN Diagnoses CHF (congestive heart failure) I50.9 Coronary artery disease involving [place] coronary artery of [place] heart without angina pectoris I25.10 Associated angina: without angina Coronary Disease-Associated Artery/Lesion type: [place] artery [place] vs. transplanted heart: [place] heart PAD (peripheral artery disease) I73.9 (2) CAD (coronary artery disease) Associated angina: without angina Coronary Disease-Associated Artery/Lesion type: [place] artery [place] vs. transplanted heart: [place] heart Qualified Code(s): I25.10 - Atherosclerotic heart disease of [place] coronary artery without angina pectoris
[2024-11-09] MEDS: CEFEPIME 2000MG 2,000 MG/20 ML SYR IV SCH (12:40)
[2024-11-09] MEDS: HYDROCORTISONE SOD SUCCINATE 100 MG/2 ML VIAL IV STA (12:49)
[2024-11-09] MEDS: HYDROCORTISONE SOD SUCCINATE 100 MG/2 ML VIAL ONE (12:55)
--- NOTE | 2024-11-09 14:27 | Pharmacy Report ---
Pharmacy Glycemic Short Note 2 - Date of Service November 09, 2024 - Glycemic Short BSG Results (Last 24 hours): 11/09/24 11/09/24 11/09/24 02:38 02:44 06:48 Glucose 216 H 153 H POC Glucose POC Glucose (other) 213 H 11/09/24 11/09/24 11/09/24 07:44 10:30 11:14 Glucose 215 H POC Glucose 162 H 197 H POC Glucose (other) OUTPATIENT ANTIDIABETIC REGIMEN: * Jardiance 10 mg daily, metformin 850 mg tidm, basaglar 30 units bid, aspart 26-18-20 units TIDM, mounjaro 10 mg SQ weekly ASSESSMENT: * 69 year old admitted into ICU with hypoxia/respiratory failure, s/p fall and concerns for pneumonia. Patient on bipap, NPO. Pharmacy consulted for glycemic management. BSGs >200 this AM - received IV dose of solumedrol in ER and continues on HC 50 mg iv q 6 hours. Will give Lantus 0.2 units/kg x 1 now and start novolog weight based stress 2 dosing. PLAN FOR INPATIENT GLYCEMIC CONTROL: * Hold outpatient oral diabetes medications * Basal insulin * Lantus 15 units x 1 * Bolus insulin * NovoLog per scale ACHS or Q6hrs while NPO * Goal Range: Low 110 mg/dL - High 140 mg/dL * Correction Factor: 20 mg/dL/unit * Nutritional / Prandial insulin per carb ratio of 1 unit per 7 grams CHO consumed
[2024-11-09 16:20] LABS: Anion Gap 6.0 (3-11); Blood Urea Nitrogen 18.0 mg/dl (6-23); Calcium 9.0 mg/dl (8.6-10.3); Carbon Dioxide 30.0 mmol/L (21-32); Chloride 99.0 mmol/L (98-107); Creatinine Clr Calc Pharmacy 103.9 ml/min; Glucose 206.0 mg/dl (70-99(Fasting)); Potassium 6.1 mmol/L (3.5-5.1); Sodium 135.0 mmol/L (136-145)
[2024-11-09 16:47] LABS: ANTI-Xa, UFH(UnfractionatedHep 0.37 IU/ml (0.3-0.7)
[2024-11-09] MEDS: HYDROCORTISONE SOD 50 MG in SYRINGE 0 ML IV SCH (17:16)
--- NOTE | 2024-11-09 17:25 | Orthopedic Consultation ---
Date of Service November 09, 2024 Assessment & Plan (1) Foot fracture, left: I had a discussion with the patient today about the x-ray findings, the findings on her physical exam as well as her walking status at home. She does have a fracture at the base of the fifth metatarsal. She is quite tender to this area. She does also have fractures in the 4th and 5th phalanx. I am not too concerned about these, however with her point tenderness as well as the findings on x-ray of the fifth metatarsal fracture, we are going to change her weightbearing to partial weightbearing. I do not think that she is going to tolerate flatfoot weightbearing or nonweightbearing. She is allowed to partial weight-bear for transfers, short walks, which is what I think her baseline is at this point anyways. I would recommend doing this in a boot. She can follow-up as an outpatient for repeat images of the left foot. Please reach out with any questions or concerns. History of Present Illness Reason for Consultation: left foot fractures, fall Requesting Physician: . Attending Physician: Chris Puentes MD Patient is a 69-year-old female who orthopedics was asked to see due to fractures found in the left foot. She had a mechanical fall at home yesterday on 11/08/2024. She did report to the emergency department due to left ankle pain but was found to be hypotensive and hypoxic upon arrival. She is currently in the ICU for treatment of this. At my visit today with the patient, she is feeling better in regards to this but does have pain in her left foot. States that she has pain in her foot when she extends the toes. She feels pain in the 4th and 5th toes going into the foot. Also has some lateral foot pain. States that since her open heart surgery, she has been rehabbing to try and ambulate without assistive devices, however she has been using a walker and most recently been using a cane. She denies any numbness or tingling in the bilateral lower extremities at today's visit. No other question or concerns today. Allergies Allergy/AdvReac Type Severity Reaction Status Date / Time paroxetine Allergy Severe HIVES;ANAPHYLAXIS-GENERIC Verified 08/26/24 17:38 BRAND nickel Allergy Intermediate RASH Verified 08/26/24 17:38 Penicillins Allergy Intermediate RASH Verified 08/26/24 17:38 Sulfa (Sulfonamide Allergy Intermediate RASH Verified 08/26/24 17:38 Antibiotics) doxepin AdvReac Intermediate HYPOTENSION Verified 08/26/24 17:38 Home Medications Medication Instructions Recorded Confirmed Type albuterol sulfate 90 mcg/actuation 2 puff inhalation Q4H PRN 01/18/23 11/09/24 History aerosol inhaler COUGH/WHEEZING amitriptyline 50 mg tablet 50 mg PO HS 01/18/23 11/09/24 History aspirin 81 mg chewable tablet 81 mg PO QAM 01/18/23 11/09/24 History atorvastatin 80 mg tablet 80 mg PO DAILY 01/18/23 11/09/24 History empagliflozin 10 mg tablet 10 mg PO QAM 01/18/23 11/09/24 History (Jardiance) fluticasone propionate 50 2 spray intranasal BID PRN 01/18/23 11/09/24 History mcg/actuation nasal Congestion spray,suspension insulin glargine 100 unit/mL (3 30 unit subcut BID 01/18/23 11/09/24 History mL) subcutaneous pen (Basaglar KwikPen U-100 Insulin) krill oil 1,000 mg-om3 130 mg-dha 1 cap PO QAM 01/18/23 11/09/24 History 40 mg-epa 80 lx-ad5-pew-astax cap (Krill Oil ([place] 3 and 6)) lorazepam 0.5 mg tablet 0.5 mg PO Q8H PRN ANXIETY/INSOMNIA 01/18/23 11/09/24 History metformin 850 mg tablet 850 mg PO TIDM 01/18/23 11/09/24 History metoprolol succinate 25 mg 25 mg PO QAM 01/18/23 11/09/24 History tablet,extended release 24 hr rivaroxaban 2.5 mg tablet (Xarelto) 2.5 mg PO BID 01/18/23 11/09/24 History ropinirole 0.5 mg tablet 0.5 mg PO HS 01/18/23 11/09/24 History sertraline 50 mg tablet 100 mg PO QAM 01/18/23 11/09/24 History tramadol 50 mg tablet 50 - 100 mg PO Q6H PRN Pain 01/18/23 11/09/24 History Lactobacillus acidophilus 250 1,000 mmu cells PO DAILY 03/02/23 11/09/24 History million cell capsule (Probiotic Acidophilus) cranberry fruit concentrate 250 mg 250 mg PO DAILY 03/02/23 11/09/24 History chewable tablet (Azo Cranberry) clotrimazole 1 % topical cream 1 applic EXT BID PRN Skin 08/26/24 11/09/24 History Irritation coenzyme Q10 100 mg capsule 100 mg PO DAILY 08/26/24 11/09/24 History (CoQ-10) estradiol 0.01% (0.1 mg/gram) 0.5 g vaginal 2XWK 08/26/24 11/09/24 History vaginal cream ezetimibe 10 mg tablet 10 mg PO QAM 08/26/24 11/09/24 History furosemide 20 mg tablet 20 mg PO Q OTHER DAY 08/26/24 11/09/24 History gabapentin 600 mg tablet 600 mg PO TID 08/26/24 11/09/24 History insulin aspart See Rx Instructions .Route .COMPLEX 08/26/24 11/09/24 History (niacinamide)(U-100) 100 unit/mL(3 mL) subcutaneous pen (Fiasp FlexTouch U-100 Insulin) tirzepatide 10 mg/0.5 mL 10 mg subcut WK 08/26/24 11/09/24 History subcutaneous pen injector (Mounjaro) oxybutynin chloride 5 mg 5 mg PO UD 11/09/24 11/09/24 History tablet,extended release 24 hr Past Med/Surg History Problem List (Updated 11/09/24 @ 12:20 by Davey Wyatt MD) CHF (congestive heart failure) Septic shock Acute hypoxic on chronic hypercapnic respiratory failure Bilateral interstitial pneumonia (Acute) Hypotension (Acute) Hypoxia (Acute) Fall (Acute) Foot fracture, left (Acute) Type 2 diabetes mellitus Closed fracture of left lower extremity Hypocalcemia Hyperkalemia Hyponatremia Hypotension Acute hypoxic respiratory failure Hypomagnesemia (Acute) Cellulitis of right leg (Acute) Acute hyperglycemia (Acute) Cellulitis (Acute) Sepsis (Acute) Hypomagnesemia Diabetic ulcer of right great toe Demand ischemia Severe sepsis Nocturnal hypoxemia due to emphysema currently using 4L O2 at night Dyslipidemia HTN (hypertension) Morbid obesity due to excess calories COPD (chronic obstructive pulmonary disease) Stenosis of right subclavian artery (Acute) PAD (peripheral artery disease) (Acute) CAD (coronary artery disease) Type 2 diabetes mellitus with diabetic neuropathy Medical History Carotid artery stenosis GERD without esophagitis History of stroke History of nonmelanoma skin cancer Right inguinal hernia Sensorineural hearing loss SVT (supraventricular tachycardia) Urge incontinence Diabetic macular edema Diabetic retinopathy, nonproliferative Surgical History History of cholecystectomy Hx of sinus surgery Status post breast lumpectomy Hx of tubal ligation H/O: hysterectomy H/O cardiac radiofrequency ablation History of right-sided carotid endarterectomy S/P carpal tunnel release S/P femoropopliteal bypass surgery S/P drug eluting coronary stent placement S/P CABG x 3 Family History Other Cancer Diabetes Hypertension Social History Smoking Status: Former smoker Tobacco Type: Cigarettes Second Hand Exposure: No; Do You Dip or Chew Tobacco: No; Hx Alcohol Use: No Hx Substance Use: No Preferred Language: [place] Communication Ability: Effective Allied Health Instructor Required: No Beliefs That Will Affect Care: None Current Living Situation: Spouse and Family Feels Safe at Home: Yes Assistive Devices: Cane and Denture - Upper Review of Systems All systems reviewed & are unremarkable except as noted in HPI & below. Physical Exam General: Alert and oriented at my visit today. She is resting in her hospital bed. Constitutional WD/WN, vitals as above Musculoskeletal left foot: Inspection does reveal some edema diffusely throughout the foot. She is tender to the 4th and 5th phalanx. She is also tender to the fifth proximal metatarsal. She does have pain when she tries to extend her toes. This pain goes from her 4th and 5th toes into the foot. She is neurovascularly intact in the left lower extremity. Psychiatric A+Ox3, euthymic affect Results & Data Results & Data Laboratory Results . Diagnostic Findings I do agree with the impression below that there is a fracture of the fifth metatarsal base as well as a fourth and fifth proximal phalanx fracture. IMPRESSION: 1. Fracture of the 5th metatarsal base along with the base of the 4th and 5th proximal phalanges. Mild gapping of the 5th metatarsal base fracture ends. No significant displacement. 2. Osteopenia. Disclaimer: A subtle bone abnormality or fracture may not be readily apparent on X-rays, thus clinical correlation and further imaging including follow-up CT, MRI, or follow-up X-rays are advised as needed. PG Care Time/CCT Total # of Minutes Spent Total Time Spent with Patient: Total time spent is greater than 50% in coordination of care (as documented) at patient's floor/unit and/or counseling patient: Coding Level of Care Code 08197 OFFICE CONSULT LVL Diagnoses Foot fracture, left S92.902A
[2024-11-09 18:04] LABS: Base Excess VBG 1.6 mEq/L; HCO3 VBG 29 mmol/L; Oxygen Saturation VBG 73.7 %; PCO2 VBG 56 mmHg (38-50); PO2 VBG 46 mmHg; pH VBG 7.32 (7.36-7.41)
[2024-11-09] MEDS ORDERED: LABETALOL HCL IV 5 MG/ML 20ML IV PRN ×2 (19:51→19:53)
--- NOTE | 2024-11-09 19:55 | Billing Data ---
Date of Service November 09, 2024 Coding Level of Care Code 82345 CRITICAL CARE 1ST 30-74M Comment Total critical care time 42 minutes
[2024-11-09] MEDS: SODIUM CHLOR 7% 4 ML NEB NEB SCH (20:58)
[2024-11-09] MEDS: AMITRIPTYLINE HCL 50 MG TAB PO SCH (21:32)
[2024-11-09] MEDS: LORazepam 0.5 MG TAB PO PRN (21:32)
[2024-11-09 22:53] LABS: Base Excess VBG 5.2 mEq/L; HCO3 VBG 32 mmol/L; Oxygen Saturation VBG < 60.0 %; PCO2 VBG 52 mmHg (38-50); PO2 VBG 36 mmHg; pH VBG 7.39 (7.36-7.41)
[2024-11-10 00:16] LABS: Anion Gap 7.0 (3-11); Blood Urea Nitrogen 20.0 mg/dl (6-23); Calcium 8.8 mg/dl (8.6-10.3); Carbon Dioxide 28.0 mmol/L (21-32); Chloride 98.0 mmol/L (98-107); Creatinine Clr Calc Pharmacy 110.0 ml/min; Glucose 214.0 mg/dl (70-99(Fasting)); Potassium 4.6 mmol/L (3.5-5.1); Sodium 133.0 mmol/L (136-145)
[2024-11-10 04:57] LABS: Hematocrit (blood only) 42.0 % (37.0-47.0); Hemoglobin 13.3 g/dl (12.0-16.0); Immature Granulocytes # (auto) 0.06 K/uL (0.01-0.20); Immature Granulocytes % (auto) 0.6 %; Mean Corpuscular Hemoglobin 26.2 pg (25.0-34.0); Mean Corpuscular Volume 82.8 fL (80.0-100.0); Platelet Count 183 K/uL (130-400); RDW Standard Deviation 60.8 fL (36.4-46.3); Red Blood Count 5.07 M/uL (4.20-5.40); White Blood Count 10.18 K/ul (4.8-10.8)
[2024-11-10 05:10] LABS: Anion Gap 6.0 (3-11); Blood Urea Nitrogen 18.0 mg/dl (6-23); Calcium 8.8 mg/dl (8.6-10.3); Carbon Dioxide 30.0 mmol/L (21-32); Chloride 99.0 mmol/L (98-107); Creatinine Clr Calc Pharmacy 120.6 ml/min; Glucose 174.0 mg/dl (70-99(Fasting)); Potassium 4.4 mmol/L (3.5-5.1); Sodium 135.0 mmol/L (136-145)
[2024-11-10 05:23] LABS: Anisocytosis Present; Polychromasia 1+
[2024-11-10 05:24] LABS: ANTI-Xa, UFH(UnfractionatedHep 0.36 IU/ml (0.3-0.7)
[2024-11-10 05:29] LABS: INR 1.0 (0.9-1.1); Partial Thromboplastin Time 38 Seconds (21-31); Prothrombin Time 10.9 Seconds (9.0-12.0)
--- NOTE | 2024-11-10 07:13 | XCELERA ---
[id number]
[2024-11-10] MEDS: LANTUS PER UNIT CHARGE SQ SCH (08:25)
--- NOTE | 2024-11-10 10:16 | Cardiology Progress Note ---
Date of Service November 10, 2024 Assessment & Plan (1) CHF (congestive heart failure): (2) CAD (coronary artery disease): (3) PAD (peripheral artery disease): Plan 1. Congestive heart failure: I believe there was an element of congestive heart failure and agree with diuresis. The cause is not clear, I do not believe she had an acute ischemic event. She has normal systolic function, this seems to be diastolic dysfunction and gentle diuresis should be sufficient. 2. Coronary disease: She has a history of coronary disease however her initial troponin was negative. This does not appear to be an acute ischemic event, there were no acute electrocardiographic changes. 3. Peripheral arterial disease: She has widespread atherosclerosis but that should not be a factor here. I do not plan any further cardiovascular evaluation. Admission and Anticipated Discharge Date Admission Date: November 09, 2024 Subjective She feels well today, yesterday I had little trouble communicating due to the BiPAP but today she is sitting at her bedside eating lunch and looks comfortable. She denies a recent history of exertional chest discomfort to magu[place] ggest angina. Physical Exam Physical Exam: Constitutional: Alert, cooperative and in mild distress. HEENT: Unremarkable Neck: No jugular venous distention, carotid pulses are normal and equal bilaterally without bruits. Pulmonary: Clear to auscultation bilaterally. Cardiac: Regular rhythm with no murmur, gallop or rub. Abdomen: Soft, nontender with normal bowel sounds. Extremities: No edema. Neurologic: No focal findings. Skin: No rash, ecchymoses or petechiae. Results & Data Vital Signs (Past 12 Hours) Vital Signs Temp Pulse Pulse Resp BP Pulse Ox O2 Del Method 11/10/24 07:33 87 18 91 High Flow Nasal Cannula 11/10/24 07:20 81 11/10/24 07:19 163/74 H 11/10/24 07:18 36.6 C 79 16 92 High Flow Nasal Cannula 11/10/24 06:01 36.9 C 85 16 145/79 H 93 High Flow Nasal Cannula 11/10/24 05:01 36.9 C 82 20 125/86 92 High Flow Nasal Cannula 11/10/24 04:01 36.9 C 85 15 158/81 H 92 High Flow Nasal Cannula 11/10/24 03:30 37.0 C 85 15 91 High Flow Nasal Cannula 11/10/24 03:00 37.1 C 80 16 127/72 90 High Flow Nasal Cannula 11/10/24 02:33 87 18 92 High Flow Nasal Cannula 11/10/24 02:00 37.2 C 88 18 133/74 92 High Flow Nasal Cannula 11/10/24 00:00 37.4 C 80 22 154/75 H 93 High Flow Nasal Cannula 11/10/24 00:00 85 11/09/24 23:49 83 22 93 High Flow Nasal Cannula 11/09/24 23:00 37.4 C 85 22 152/83 H 94 High Flow Nasal Cannula O2 Flow Rate FiO2 11/10/24 07:33 35 60 11/10/24 07:20 11/10/24 07:19 11/10/24 07:18 50 70 11/10/24 06:01 40 70 11/10/24 05:01 40 70 11/10/24 04:01 40 70 11/10/24 03:30 40 70 11/10/24 03:00 35 60 11/10/24 02:33 35 60 11/10/24 02:00 35 60 11/10/24 00:00 35 60 11/10/24 00:00 11/09/24 23:49 40 60 11/09/24 23:00 35 60 Laboratory Results Coagulation 11/10/24 Range/Units 04:23 PT 10.9 (9.0-12.0) Seconds APTT 38 H (21-31) Seconds CBC 11/10/24 Range/Units 04:23 WBC 10.18 (4.8-10.8) K/ul RBC 5.07 (4.20-5.40) M/uL Hgb 13.3 (12.0-16.0) g/dl Hct 42.0 (37.0-47.0) % Plt Count 183 (130-400) K/uL Neut # (Auto) 8.94 H (1.40-6.50) K/uL Lymph # (Auto) 0.51 L (1.20-3.40) K/uL [place] # (Auto) 0.66 H (0.11-0.59) K/uL Eos # (Auto) 0.00 (0.00-0.50) K/uL Baso # (Auto) 0.01 (0.00-0.20) K/uL Comprehensive Metabolic Panel 11/09/24 11/09/24 11/09/24 Range/Units 11:14 15:45 22:30 Sodium 133 L 135 L 133 L (136-145) mmol/L Potassium 6.0 H 6.1 H* 4.6 D (3.5-5.1) mmol/L Chloride 101 99 98 (98-107) mmol/L Carbon Dioxide 28 30 28 (21-32) mmol/L BUN 19 18 20 (6-23) mg/dl Creatinine 0.81 0.72 0.68 (0.6-1.2) mg/dl Glucose 215 H 206 H 214 H (70-99(Fasting)) mg/dl Calcium 8.7 9.0 8.8 (8.6-10.3) mg/dl 11/10/24 Range/Units 04:23 Sodium 135 L (136-145) mmol/L Potassium 4.4 (3.5-5.1) mmol/L Chloride 99 (98-107) mmol/L Carbon Dioxide 30 (21-32) mmol/L BUN 18 (6-23) mg/dl Creatinine 0.62 (0.6-1.2) mg/dl Glucose 174 H (70-99(Fasting)) mg/dl Calcium 8.8 (8.6-10.3) mg/dl Intake and Output 11/09/24 11/10/24 11/10/24 22:59 06:59 14:59 Intake Total 1582.133 / 3888.248 425.600 / 3888.248 294.533 / 294.533 Output Total 1900 / 5325 1475 / 5325 350 / 350 Balance -317.867 / -1436.752 -1049.400 / -1436.752 -55.467 / -55.467 Intake: IV 822.133 / 3128.248 425.600 / 3128.248 144.533 / 144.533 Doxycycline Hyclate 100 mg In 100 / 200 Dextrose 5% Mini-B 100 ml @ 50 mls/hr IV Q12H [facility] Rx#:[id number] Heparin 37654 Unit/500 ml D5w 322.133 / 647.733 325.600 / 647.733 144.533 / 144.533 25,000 units In 500 ml @ 1,600 UNITS/HR 32 mls/hr IV .[id number] [facility] Rx#:[id number] Norepinephrine/D5w 4 mg In 250 0 / 15.515 0 / 0 ml @ 0 MCG/KG/MIN IV .Q0M [facility] Rx#:[id number] Sodium Chloride 0.9% 500 ml @ 500 / 500 80 mls/hr IV .Q6H15M [facility] Rx#: [id number] Oral 760 / 760 150 / 150 Output: Urine Amount (Catheter) 1900 / 5325 1475 / 5325 350 / 350 Temp Sensing [place] 1900 / 5325 1475 / 5325 350 / 350 # Bowel Movements 0 / 0 Other: Weight 114.6 kg Weight Measurement Method Built in [facility] Diagnostic Findings Telemetry: Sinus rhythm, her heart rate is stable at around 80-90 which is appropriate. An echocardiogram done November 09, 2024 shows normal left ventricular systolic function with mild concentric left ventricular hypertrophy and mild aortic stenosis with moderate mitral regurgitation. PG Care Time/CCT Total # of Minutes Spent Total Time Spent with Patient: Total time spent is greater than 50% in coordination of care (as documented) at patient's floor/unit and/or counseling patient: Coding Level of Care Code 49661 SUB INP/OBS CARE 3/50MIN Diagnoses CHF (congestive heart failure) I50.9 Coronary artery disease involving [place] coronary artery of [place] heart without angina pectoris I25.10 Associated angina: without angina Coronary Disease-Associated Artery/Lesion type: [place] artery [place] vs. transplanted heart: [place] heart PAD (peripheral artery disease) I73.9 (2) CAD (coronary artery disease) Associated angina: without angina Coronary Disease-Associated Artery/Lesion type: [place] artery [place] vs. transplanted heart: [place] heart Qualified Code(s): I25.10 - Atherosclerotic heart disease of [place] coronary artery without angina pectoris
[2024-11-10] MEDS: RIVAROXABAN 2.5 MG TAB PO SCH (11:12)
--- NOTE | 2024-11-10 11:28 | Critical Care Progress Note ---
Date of Service November 10, 2024 Assessment & Plan (1) Acute hypoxic on chronic hypercapnic respiratory failure: Plan: Hypoxemia and hypercapnia improving. Continue to wean oxygen as able. Continue BiPAP at night. Antibiotics weaned to Rocephin and doxycycline. Continue to wean hydrocortisone. Continue DuoNebs as needed. (2) Bilateral interstitial pneumonia: Plan: Recommend outpatient follow-up CT chest in 8 weeks with PFTs. (3) Septic shock: Plan: Shock state is resolved. (4) Closed fracture of left lower extremity: Plan: Pain control and immobilizer. No signs of compartment syndrome at present. (5) PAD (peripheral artery disease): Plan: Transition back to oral Xarelto. (6) Hyperkalemia: Plan: Hyperkalemia is resolved. Plan Stable for downgrade out of ICU to PCU status. ICU services to sign off. Thank you for the consult. Admission and Anticipated Discharge Date Admission Date: November 09, 2024 Subjective Patient doing well this morning and has been downgraded to low-flow oxygen. No overnight significant issues. Denies chest pain, nausea or vomiting. Review of Systems Review of Systems: All systems reviewed & are unremarkable except as noted in HPI & below Physical Exam Physical Exam: Constitutional: Patient appears to be of their stated age. Patient is in no apparent distress. Patient is well-developed. Eyes: Pupils are equal round and reactive to light. Conjunctivae are normal. Anicteric sclera. Ears nose, mouth and throat: Mallampati class 2. Normal posterior oropharynx. Uvula is midline. Neck: Trachea is midline. Visual inspection is normal. Respiratory: Improved aeration. No significant tachypnea. Cardiovascular: Regular rate and rhythm. No murmurs. No edema. Gastrointestinal: Normal bowel sounds, soft, nontender and nondistended. No hepatosplenomegaly noted. Musculoskeletal: No cyanosis. Patient is able to move all extremities. Skin: No rashes, warm dry and intact. Neurologic: No obvious focal neurological deficits seen. Psychiatric: Alert and oriented x3 with a euthymic affect. Results & Data Results & Data Vital Signs (Past 12 Hours) Vital Signs Temp Pulse Pulse Resp BP Pulse Ox O2 Del Method 11/10/24 11:07 140/90 11/10/24 11:06 37.4 C 84 18 93 Nasal Cannula 11/10/24 10:28 High Flow Nasal Cannula 11/10/24 10:24 102 H 20 92 Nasal Cannula 11/10/24 10:00 37.2 C 80 20 142/80 H 91 High Flow Nasal Cannula 11/10/24 09:00 37.1 C 82 23 90 11/10/24 09:00 137/71 11/10/24 08:01 149/79 H 11/10/24 08:00 36.9 C 83 21 90 11/10/24 07:33 87 18 91 High Flow Nasal Cannula 11/10/24 07:21 36.6 C 85 18 96 11/10/24 07:20 81 11/10/24 07:19 163/74 H 11/10/24 07:18 36.6 C 79 16 92 High Flow Nasal Cannula 11/10/24 06:01 36.9 C 85 16 145/79 H 93 High Flow Nasal Cannula 11/10/24 05:01 36.9 C 82 20 125/86 92 High Flow Nasal Cannula 11/10/24 04:01 36.9 C 85 15 158/81 H 92 High Flow Nasal Cannula 11/10/24 03:30 37.0 C 85 15 91 High Flow Nasal Cannula 11/10/24 03:00 37.1 C 80 16 127/72 90 High Flow Nasal Cannula 11/10/24 02:33 87 18 92 High Flow Nasal Cannula 11/10/24 02:00 37.2 C 88 18 133/74 92 High Flow Nasal Cannula 11/10/24 00:00 37.4 C 80 22 154/75 H 93 High Flow Nasal Cannula 11/10/24 00:00 85 11/09/24 23:49 83 22 93 High Flow Nasal Cannula O2 Flow Rate FiO2 11/10/24 11:07 11/10/24 11:06 5 11/10/24 10:28 11/10/24 10:24 6 11/10/24 10:00 25 50 11/10/24 09:00 11/10/24 09:00 11/10/24 08:01 11/10/24 08:00 11/10/24 07:33 35 60 11/10/24 07:21 11/10/24 07:20 11/10/24 07:19 11/10/24 07:18 50 70 11/10/24 06:01 40 70 11/10/24 05:01 40 70 11/10/24 04:01 40 70 11/10/24 03:30 40 70 11/10/24 03:00 35 60 11/10/24 02:33 35 60 11/10/24 02:00 35 60 11/10/24 00:00 35 60 11/10/24 00:00 11/09/24 23:49 40 60 Coding Level of Care Code 47517 SUB INP/OBS CARE 2/35MIN Diagnoses Acute hypoxic on chronic hypercapnic respiratory failure J96.01; J96.12 Bilateral interstitial pneumonia J84.9 Septic shock A41.9; R65.21 Closed fracture of left lower extremity S82.92XA PAD (peripheral artery disease) I73.9 Hyperkalemia E87.5
--- NOTE | 2024-11-10 15:44 | Hospitalist Progress Note ---
Date of Service November 10, 2024 Assessment & Plan (1) Acute hypoxic respiratory failure: (2) Hypotension: (3) Hyponatremia: (4) Hyperkalemia: (5) Hypocalcemia: (6) Closed fracture of left lower extremity: (7) Type 2 diabetes mellitus: Plan 69-year-old female PMHx HTN, COPD, PAD with history of emergent revascularization of RLE, CAD s/p CABG x 3, T2DM with neuropathy, carotid artery stenosis, prior CVA, macular edema, anxiety and depression who presents for reported mechanical fall at home on 11/08/2024. Pt was found to be profoundly hypotensive and hypoxic upon arrival to ED. Her evaluation does reveal fx in the L foot as well as hyperkalemia, hypocalcemia, and hyponatremia. Her CXR is appearing to be suggestive of volume overload vs underlying etiology, pending chest CTA. Given her hypotension and in the setting of tachycardia, suspicious for underlying sepsis, pending lactate and procal. No source identified. Will admit for hypotension, hypoxia, and management of electrolyte disturbances. #Acute hypoxic respiratory failure/Hypotension, bilateral pneumonia - H/o COPD and HF, on O2 at night, unable to tolerate CPAP. Hypotensive in the ER, transiently required vasopressors, responded to fluids and subsequently stabilized and vitals normal. Overall now slightly hypervolemic, hemodynamics able to tolerate gentle diuresis. Downgraded to PCU. Antibiotics narrowed to Rocephin. Cefpodoxime reasonable if doing well for discharge Bilateral interstitial pneumonia. Repeat chest CT in 8 weeks with PFTs. Follow-up with pulm. Afebrile BC no growth to date #Hyperkalemia/Hypocalcemia/Hyponatremia Resolved, trend BMP #Fracture LLE Cam boot in place Continue pain control, Tylenol as needed Partial weight-bear for transfers Reviewed with Ortho, nonoperative. Appreciate recommendations #T2DM Type II DM on insulin Last A1c 7.7% Continue basal bolus insulin with [facility] glycemic management following #CAD s/p CABG x 3/PAD/Carotid artery stenosis Clinically with some volume overload/congestion. Gentle diuresis ordered No chest pain, no evidence of acute coronary syndrome at time of assessment Lasix 40 mg p.o. daily ordered, strict ins and outs. Heart healthy diet Last echo 2023 EF 60 to 65% #Psych- Amitriptyline, sertraline, lorazepam prn - continue #HLD- Atorvastatin, ezetimibe- continue #HTN- Metoprolol #RLS- Ropinirole - continue Admission and Anticipated Discharge Date Admission Date: November 09, 2024 Subjective Seen at the bedside. Sitting up comfortably. Feels greatly improved this morning. No shortness of breath overnight. Extended discussion regarding hypercapnia and use of oxygen versus positive pressure ventilation. She reports she cannot in any way tolerate things on her face both due to claustrophobia and induction of headaches. Would like to follow-up with a specialist for alternative modalities of treatment for PER. She would like to call with Tmami Bravo which is reasonable. No other acute concerns today Physical Exam Physical Exam: General: A&Ox3. NAD. Cooperative. HEENT: Atraumatic, normocephalic. VIsion and hearing grossly intact. PERLAA. Pulm: Lungs diminished, no rales. Breathing comfortably on nasal cannula time bedside Cardiac: RRR, -mrg. Radial pulses intact and symmetrical. Abdominal: Nontender, nondistended, soft. BS present. Ext: Warm, dry. Left walking boot in place Results & Data Results & Data Vital Signs (Past 12 Hours) Vital Signs Temp Pulse Pulse Resp BP Pulse Ox Pulse Ox 11/10/24 13:45 83 11/10/24 11:40 93 11/10/24 11:07 140/90 11/10/24 11:06 37.4 C 84 18 93 11/10/24 10:28 11/10/24 10:24 102 H 20 92 11/10/24 10:00 37.2 C 80 20 142/80 H 91 11/10/24 09:00 37.1 C 82 23 90 11/10/24 09:00 137/71 11/10/24 08:01 149/79 H 11/10/24 08:00 36.9 C 83 21 90 11/10/24 07:33 87 18 91 11/10/24 07:21 36.6 C 85 18 96 11/10/24 07:20 81 11/10/24 07:19 163/74 H 11/10/24 07:18 36.6 C 79 16 92 11/10/24 06:01 36.9 C 85 16 145/79 H 93 11/10/24 05:01 36.9 C 82 20 125/86 92 11/10/24 04:01 36.9 C 85 15 158/81 H 92 Pulse Ox O2 Del Method O2 Flow Rate O2 Flow Rate O2 Flow Rate FiO2 11/10/24 13:45 11/10/24 11:40 86 L 35 35 11/10/24 11:07 11/10/24 11:06 Nasal Cannula 5 11/10/24 10:28 High Flow Nasal Cannula 11/10/24 10:24 Nasal Cannula 6 11/10/24 10:00 High Flow Nasal Cannula 25 50 11/10/24 09:00 11/10/24 09:00 11/10/24 08:01 11/10/24 08:00 11/10/24 07:33 High Flow Nasal Cannula 35 60 11/10/24 07:21 11/10/24 07:20 11/10/24 07:19 11/10/24 07:18 High Flow Nasal Cannula 50 70 11/10/24 06:01 High Flow Nasal Cannula 40 70 11/10/24 05:01 High Flow Nasal Cannula 40 70 11/10/24 04:01 High Flow Nasal Cannula 40 70 PG Care Time/CCT Total # of Minutes Spent Total Time Spent with Patient: Total time spent is greater than 50% in coordination of care (as documented) at patient's floor/unit and/or counseling patient: Coding Level of Care Code 87365 SUB INP/OBS CARE 3/50MIN Diagnoses Acute hypoxic respiratory failure J96.01 Hypotension I95.9 Hyponatremia E87.1 Hyperkalemia E87.5 Hypocalcemia E83.51 Closed fracture of left lower extremity S82.92XA Type 2 diabetes mellitus E11.9
[2024-11-10] MEDS: FUROSEMIDE 40 MG TAB PO SCH (16:20)
[2024-11-10] MEDS: cefTRIAXone SODIUM 2,000 MG/50 ML BAG IV SCH (16:22)
[2024-11-11 07:15] LABS: Hematocrit (blood only) 44.2 % (37.0-47.0); Hemoglobin 13.1 g/dl (12.0-16.0); Immature Granulocytes # (auto) 0.02 K/uL (0.01-0.20); Immature Granulocytes % (auto) 0.2 %; Mean Corpuscular Hemoglobin 24.6 pg (25.0-34.0); Mean Corpuscular Volume 83.1 fL (80.0-100.0); Platelet Count 176 K/uL (130-400); RDW Standard Deviation 62.1 fL (36.4-46.3); Red Blood Count 5.32 M/uL (4.20-5.40); White Blood Count 8.12 K/ul (4.8-10.8)
[2024-11-11 07:32] LABS: Anion Gap 7.0 (3-11); Blood Urea Nitrogen 20.0 mg/dl (6-23); Calcium 8.7 mg/dl (8.6-10.3); Carbon Dioxide 33.0 mmol/L (21-32); Chloride 99.0 mmol/L (98-107); Creatinine Clr Calc Pharmacy 96.1 ml/min; Glucose 221.0 mg/dl (70-99(Fasting)); Potassium 4.2 mmol/L (3.5-5.1); Sodium 139.0 mmol/L (136-145)
[2024-11-11 07:40] LABS: INR 1.0 (0.9-1.1); Partial Thromboplastin Time 26 Seconds (21-31); Prothrombin Time 10.9 Seconds (9.0-12.0)
[2024-11-11 07:53] LABS: Anisocytosis Present; Ovalocytes 1+; Polychromasia 1+
[2024-11-11] MEDS: METOPROLOL SUCC 25MG EXT REL TAB PO SCH (08:14)
--- NOTE | 2024-11-11 09:05 | Discharge Summary ---
Discharge Summary Date of Service November 11, 2024 Principal Dx & Hospital Course #1 = Principal Diagnosis (1) Acute hypoxic respiratory failure: (2) Hypotension: (3) Hyponatremia: (4) Hyperkalemia: (5) Hypocalcemia: (6) Closed fracture of left lower extremity: (7) Type 2 diabetes mellitus: Plan 69-year-old female PMHx HTN, COPD, PAD with history of emergent revascularization of RLE, CAD s/p CABG x 3, T2DM with neuropathy, carotid artery stenosis, prior CVA, macular edema, anxiety and depression who presents for reported mechanical fall at home on 11/08/2024. Pt was found to be profoundly hypotensive and hypoxic upon arrival to ED. Her evaluation does reveal fx in the L foot as well as hyperkalemia, hypocalcemia, and hyponatremia. Her CXR is appearing to be suggestive of volume overload vs underlying etiology, pending chest CTA. Given her hypotension and in the setting of tachycardia, suspicious for underlying sepsis, pending lactate and procal. No source identified. Will admit for hypotension, hypoxia, and management of electrolyte disturbances. #Acute hypoxic respiratory failure/Hypotension, bilateral pneumonia - H/o COPD and HF, on O2 at night, unable to tolerate CPAP. Hypotensive in the ER, transiently required vasopressors, responded to fluids and subsequently stabilized and vitals normal. Overall now slightly hypervolemic, hemodynamics able to tolerate gentle diuresis. Downgraded to PCU. Antibiotics narrowed to Rocephin. Cefpodoxime reasonable if doing well for discharge Bilateral interstitial pneumonia. Repeat chest CT in 8 weeks with PFTs. Follow-up with pulm. Afebrile no growth to date -pt at baseline respiratory status -will d/c home on oral abx #Hyperkalemia/Hypocalcemia/Hyponatremia Resolved, trend BMP #Fracture LLE Cam boot in place Continue pain control, Tylenol as needed Partial weight-bear for transfers Reviewed with Ortho, nonoperative. Appreciate recommendations #T2DM Type II DM on insulin Last A1c 7.7% Continue basal bolus insulin with [facility] Pharmacy glycemic management following #CAD s/p CABG x 3/PAD/Carotid artery stenosis Clinically with some volume overload/congestion. Gentle diuresis ordered No chest pain, no evidence of acute coronary syndrome at time of assessment Lasix 40 mg p.o. daily ordered, strict ins and outs. Heart healthy diet Last echo 2023 EF 60 to 65% #Psych- Amitriptyline, sertraline, lorazepam prn - continue #HLD- Atorvastatin, ezetimibe- continue #HTN- Metoprolol #RLS- Ropinirole - continue Admission HPI Per Admitting Provider 69-year-old female PMHx HTN, COPD, PAD with history of emergent revascularization of RLE, CAD s/p CABG x 3, T2DM with neuropathy, carotid artery stenosis, prior CVA, macular edema, anxiety and depression who presents for reported mechanical fall at home on 11/08/2024. She states that she had tripped on her rug and fallen down. No symptoms prior to to include chest pain, SOB, dizziness, or pre-syncope. Did not hit head, on Xarelto. States that her pain is overall well controlled at this time. She had no concerns with her breathing and states that she would not have come in on the day of arrival had her foot not been of concern. She does utilize O2 at night but unable to tolerate CPAP at night. Usually 4L O2 at night. She denies chest pain, SOB, palpitations, abdominal pain, N/V/D/C, abnormal numbness/tingling, F/C, LUTS, weakness, or syncope. Her daughter is present in the room at time of visit. ED evaluation reveals CBC without leukocytosis, H&H 13.6/46.7; PT/INR pending; VBG's pH 7.24, pCO2 64; CMP sodium 133, potassium 5.7, glucose 216, BUN/creatinine ratio 22.3, calcium 8.5, alkaline phosphatase 106; troponin 11.6; BNP 117; lactate pending; Pro-Rodney pending; UA pending; L ankle XR no evidence of acute fracture or dislocation, osteopenia, plantar bony calcaneal spur; L foot XR fracture fifth metatarsal base along with base of 4th and 5th proximal phalanges, mild gapping fifth metatarsal base fracture ends, no significant displacement, osteopenia; CXR cardiomegaly, few suspicious reticulonodular opacities bilateral lung nieves more on left side, few atelectatic bands noted in left mid and lower zones, CT suggested; chest CTA pending; EKG sinus tachycardia at 104 bpm.; Provided 500 mL NSS in ED. Please see Dr. Puentes's attestation for adjustments/additions to treatment plan. Discharge Exam GENERAL APPEARANCE NAD, activity normal for age, well developed/ well nourished, no cyanosis, pallor, or diaphoresis. EYES lids/conjunctiva normal. EARS/NOSE/THROAT Mucous membranes moist, nares normal, lips/teeth normal uvula midline without oral pharyngeal erythema, exudate or swelling TMs normal bilaterally. No lymphangitis/lymphedema. HEAD/NECK normocephalic atraumatic, no facial trauma, neck is supple. RESPIRATORY respiratory effort normal, speaks in full sentences, no tripod position, no accessory muscle use. Lungs clear to auscultation without rhonchi, wheezes, rales CARDIAC Regular rate and rhythm, no edema. ABDOMINAL Soft, ND/NT. No evidence of fluid wave. No pulsatile masses on exam, rebound tenderness, Gerardo sign or pain over Mcburney's point. MUSCLES/EXTREMITIES No abnormal range of motion, no swelling. SKIN Warm, pink and dry. No rashes, dermatoses, petechiae or lesions. NEUROLOGICAL Speech is clear and appropriate. Normal level of consciousness. Gait and coordination are normal. 5/5 strength in all extremities. PSYCH Normal mood and affect. Judgement/competence is appropriate Discharge Plan Discharge Items Patient Disposition: Home - Self-Care Reason For Visit: ACUTE HYPOXIC RESP FAILURE, HYPOTENSION, HYPERKALM Discharge Diagnosis: b/l PNA, LLE fx Condition on Discharge: Critical Activity: Resume your previous activity Non-emergency contact: Primary Care Provider Call non-emergency contact if: you have any medication questions Follow-up/Referrals: Jonny Donaldson MD [Primary Care Provider] - Diet: Regular Addtl Attending Provider Instructions: Follow up with PMD in 1 week Pending Studies at Discharge: No Stand-Alone Forms: My [facility] [employer], Smoking Cessation Medications and DC Order Prescriptions: New cefuroxime axetil 500 mg tablet 500 mg PO BID 5 Days Qty: 10 0RF doxycycline hyclate 100 mg capsule 100 mg PO BID 21 Days Qty: 10 0RF Continued atorvastatin 80 mg tablet 80 mg PO DAILY metformin 850 mg tablet 850 mg PO TIDM tramadol 50 mg tablet 50 - 100 mg PO Q6H PRN (Reason: Pain) amitriptyline 50 mg tablet 50 mg PO HS lorazepam 0.5 mg tablet 0.5 mg PO Q8H PRN (Reason: ANXIETY/INSOMNIA) ropinirole 0.5 mg tablet 0.5 mg PO HS Rx Instructions: TAKE BEFORE NAPS & HS. aspirin 81 mg Tablet,Chewable 81 mg PO QAM metoprolol succinate 25 mg tablet extended release 24 hr 25 mg PO QAM albuterol sulfate 90 mcg/actuation HFA aerosol inhaler 2 puff INHALATION Q4H PRN (Reason: COUGH/WHEEZING) fluticasone propionate 50 mcg/actuation [place],Suspension 2 spray INTRANASAL BID PRN (Reason: Congestion) Rx Instructions: administer into each nostril sertraline 50 mg tablet 100 mg PO QAM insulin glargine [Basaglar KwikPen U-100 Insulin] 100 unit/mL (3 mL) insulin pen 30 unit SUBCUT BID Krill Oil (Kramer 3 and 6) 1000-130(40-80) mg Capsule 1 cap PO QAM Jardiance 10 mg tablet 10 mg PO QAM rivaroxaban [Xarelto] 2.5 mg tablet 2.5 mg PO BID Azo Cranberry 250 mg Tablet,Chewable 250 mg PO DAILY Probiotic Acidophilus 250 million cell Capsule 1,000 mmu cells PO DAILY oxybutynin chloride 5 mg tablet extended release 24hr 5 mg PO UD Patient Comments: last filled 11/08 90 day supply Fiasp FlexTouch U-100 Insulin 100 unit/mL (3 mL) insulin pen See Rx Instructions .ROUTE .COMPLEX Rx Instructions: TAKES 26 UNITS/BREAKFAST, 18 UNITS/LUNCH, & 20 UNITS/SUPPER Mounjaro 10 mg/0.5 mL pen injector 10 mg SUBCUT WK Rx Instructions: WEDNESDA[facility] gabapentin 600 mg tablet 600 mg PO TID estradiol 0.01 % (0.1 mg/gram) cream 0.5 g VAGINAL 2XWK ezetimibe 10 mg tablet 10 mg PO QAM coenzyme Q10 [CoQ-10] 100 mg Capsule 100 mg PO DAILY furosemide 20 mg tablet 20 mg PO Q OTHER DAY clotrimazole 1 % cream 1 applic EXT BID PRN (Reason: Skin Irritation) Rx Instructions: Apply to right and left groin twice a day for 10 days Discharge Orders: Discharge Order (Routine); Ordered 11/11/24 Ordered By: Caleb Garcia Admission Data Admit Date/Time: 11/09/24 06:07 Attending Provider: Bute,Caleb A Admit Provider: Chris Puentes Primary Care Provider: Jonny Donaldson Other Providers: Atilio Brush; Chris Puentes; Davey Wyatt; Nona Gil Hospital Stay Data Consultations 11/09/24 04:55 ED Decision to Admit Stat 11/09/24 08:22 Consult Control Systems Specialist Routine 11/09/24 10:53 Consult Cardiology Routine Consult Pulmonology Routine 11/09/24 14:45 Consult Orthopedic Surgery Routine Diagnostic Imagining Performed 11/09/24 04:46 CT angio chest PE protocol Stat Pending Results Patient Have Any Pending Studies at Discharge: No Discharge Instructions Given to Patient (Per Discharging Provider) Follow up with PMD in 1 week Total Time Total Time Spent Total Time Spent (In Minutes): 50 Coding Level of Care Code 99589 INP/OBS DISCH >30 MIN Diagnoses Acute hypoxic respiratory failure J96.01 Hypotension I95.9 Hyponatremia E87.1 Hyperkalemia E87.5 Hypocalcemia E83.51 Closed fracture of left lower extremity S82.92XA Type 2 diabetes mellitus E11.9
[2024-11-11 11:43] VITALS: BP 113/71; RESP 19; TEMP 97.3; O2SAT 90
--- NOTE | 2024-11-11 13:10 | Electrocardiogram Report ---
Test Reason : Blood Pressure : */* mmHG Vent. Rate : 104 BPM Atrial Rate : 104 BPM P-R Int : 162 ms QRS Dur : 134 ms QT Int : 370 ms P-R-T Axes : 20 -22 39 degrees QTcB Int : 486 ms Sinus tachycardia Non-specific intra-ventricular conduction block Abnormal ECG When compared with ECG of 11-May-2024 05:55, No significant change Confirmed by Davey Wyatt ([id number]) on 11/11/2024 1:10:04 PM Referred By: REFERRED SELF Confirmed By: Davey Wyatt
[2024-11-11 14:23] VITALS: PULSE 75
[2024-11-11] MEDS ORDERED: LANTUS PER UNIT CHARGE SQ SCH (21:00)
--- NOTE | 2024-11-12 10:07 | Coding Query ---
SEPSIS To promote full compliance with coding requirements relating to patient care, physician participation is requested in all cases of network associate uncertainty. Please assist us with the question(s) below: In responding to this query, please exercise your independent professional judgement. The fact that a question is asked does not imply that any particular answer is desired or expected. We appreciate your clarification on this issue. Throughout the medical record, you have clearly documented a localized infection and your patient has clinical evidence of a generalized sepsis or severe sepsis. The term urosepsis is a nonspecific entity and is coded as an UTI. If the patient has sepsis, severe sepsis, from an urinary source or some other source, please clarify in your response below. The medical record reflects the following clinical findings: (With dates as appropriate) (Body temperature of >38.3 C(101 F) or <36 C(96.8F), pulse >90/minute, respirations >20/minute, WBC count >12,000 or <4,000, altered mental status, significant edema or positive fluid balance, hyperglycemia without diabetes, hypotension, metabolic acidosis (elev. lactate level, anion gap or reduced blood pH), shock, positive blood culture (enter organism) ____ ()Bacteremia (Nonspecific laboratory finding of bacteria in the blood) Specify Organism () Present on Admission () Not present on admission () Unable to clinically determine () Septicemia (Systemic disease associated with the presence of pathogenic microorganisms in the blood): Specify Organism (x) Present on Admission () Not present on admission () Unable to clinically determine () Sepsis Specify Organism Specify Associated Condition/Diagnosis () Present on Admission () Not present on admission () Unable to clinically determine () Severe Sepsis (Sepsis associated with acute organ dysfunction) Specify Organism Specify Associated Condition/Diagnosis () Present on Admission () Not present on admission () Unable to clinically determine () Septic Shock (Severe sepsis with acute circulatory failure, unexplained by other causes) () Present on Admission () Not present on admission () Unable to clinically determine () Other, patient has: MTDD
--- NOTE | 2024-11-12 10:08 | Coding Query ---
CONGESTIVE HEART FAILURE To Promote full compliance with coding requirements relating to patient care, physician participation is requested in all cases of orthopedic coder uncertainty. Please assist us with the following questions. A diagnosis of Congestive Heart Failure is documented in the patient's medical record. To accurately code this diagnosis and to compare patient severity, we ask that you specify the type of heart failure by placing an X within the parenthesis (x). SYSTOLIC HEART FAILURE ( ) Acute ( ) Chronic ( ) Acute on Chronic ( ) Rheumatic ( ) Unknown DIASTOLIC HEART FAILURE ( ) Acute ( ) Chronic ( ) Acute on Chronic ( ) Rheumatic ( ) Unknown COMBINED SYSTOLIC AND DIASTOLIC HEART FAILURE ( ) Acute ( ) Chronic (x ) Acute on Chronic ( ) Rheumatic ( ) Unknown Was the CHF Present On Admission? Please check the appropriate box: ( x) Present on Admission ( ) Not Present On Admission ( ) Clinically undetermined Thank you Quita BROOKS
== END 2024-11-11 14:26 | disposition home or self-care (01) | DRG 871 ==
LOC: SUATTDRO → ED 02:20 → 1E 06:07 → SUATTDRO 06:07 → 1E 09:32 → 2S 11-10 13:08

== ENCOUNTER 2024-11-30 13:01 | Inpatient (IN) ==
--- NOTE | 2024-11-30 13:37 | Emergency Department Note ---
Impression & Plan Acute UTI, Cellulitis of leg, right, CHF (congestive heart failure) ED Provider Note Provider: Pankaj Bahena MD CHIEF COMPLAINT: Right foot swelling possible infection HISTORY OF PRESENT ILLNESS: Patient is a 69-year-old female extensive past medical history including COPD on home oxygen 4 L although she states she only uses it mainly at night, hypertension, peripheral vascular disease, type 2 diabetes, CHF, and recent admission for fall and CHF presenting here today reporting some increased right leg swelling pain and redness. Recently hospitalized. Suffered a fall and hurt her left foot which is in a walking boot. States during that she scraped her right meza and had some blistering here. Blisters have popped. From discharge in mid October completed a short course of antibiotics through the . Not on antibiotics since. No fevers. Increasing pain in the right lower leg with some clear seepage as well as some worsening erythema. Also reports her breathing has been maybe a little bit worse. Normally is only supposed to use oxygen at night and not during the day and she states her oxygen levels have been hovering in the 80s. Given her history of peripheral vascular sees was told by her primary doctor if she has issues to return to the hospital at once. Took tramadol around 10 AM this morning intermittently helped with the pain if at all. Did have lunch. Neuropathy of the lower extremities but does feel gross touch by her report. No new falls. PAST MEDICAL HISTORY: As noted above MEDICATIONS: Reviewed home medications states compliance with her meds including her Xarelto twice daily SOCIAL HISTORY: Lives at home PHYSICAL EXAM: GENERAL: alert and oriented in no acute distress on stretcher on oxygen Head: normocephalic and atraumatic EYES: No injection, discharge or icterus. NECK: Trachea midline. ENT: Mucous membranes pink and moist. LUNGS: Airway patent. No retractions. Breath sounds faint expiratory wheeze HEART: Regular rate and rhythm. No chest wall tenderness ABDOMEN: Soft and non-tender, without guarding or rebound. SKIN: Acyanotic, warm, dry lower extremities as below. EXTREMITIES: Chronic stasis and mild erythema of the bilateral lower extremities. The right meza has 4 areas about centimeter size small ulcers with clear seepage. Mild diffuse tenderness here. Some tenderness of the base of the metatarsals and the fifth side consistent with prior injury. No crepitus. No significant redness or swelling of the upper extremities with some healing contusions with her anticoagulant usage. NEUROLOGICAL: No aphasia. No facial droop or slurred speech. Sentimental sensation present in the bilateral lower extremities to touch. Ambulatory. EK bpm. Normal sinus rhythm. Some artifact but no acute ST segment elevation or depression with some nonspecific T wave flattening and a QTc of 462. CONTINUOUS CARDIAC MONITORING: was ordered and showed a heart rate of 70s to 80s bpm in normal sinus rhythm Patient's laboratory studies and imaging reviewed. Differential includes DVT, musculoskeletal, infection, joint effusion, trauma, lymphedema, idiopathic, CHF, as well as other pathologies. IMPRESSION/MEDICAL DECISION MAKING: Right lower extremity certainly with erythema not sure that is particularly swollen. Does have some chronic stasis of the left leg. The right meza has some seepage from approximately 4 anterior ulcers appear to be prior blister sites. Is on a lower dosage of Xarelto for PAD. Lower suspicion for DVT with this. Does have known PAD although I do not see obvious findings of acute ischemia. Do question there could be a component of cellulitis but he has been off antibiotics for about 2 weeks. Blood cultures, lactate, procalcitonin send given her history of significant illness and question of some cellulitis developing here. Chest x-ray and tib-fib x-ray obtained although I doubt necrotizing fasciitis. Additionally noted to be hypoxic here on her 4 L of oxygen. States she does not always wear this at rest. Does not seem encephalopathic and I doubt hypercarbia. Does have a history of fluid overload and again some slight swelling of the lower extremities. Will obtain CT of the chest to further evaluate the lung parenchyma and determine if there is underlying PE or fluid overload. Lactate is elevated 3.9. History of fluid overload and do not be careful avoid aggressive IV fluid boluses if possible. Potassium was elevated on [id number] blood work and recheck was sent. Formal blood work with a potassium of 5.4. Creatinine 0.9 not elevated. Blood counts without severe anemia or leukocytosis. BNP elevated 328. Procalcitonin not elevated. Urine concerning for infection reports history of urinary incontinence and some slight burning. Will treat with cefepime. This will also cover any issues of possible cellulitis in lower extremities. Do believe fluid overload is contributing to her symptoms. As such given a small dose of IV Lasix here. Troponin minimally elevated 31 again consistent likely with more fluid overload than acute ACS. Will complete a CT of the chest to exclude underlying PE and further evaluate the lungs for fluid. Discussed with the patient. She is in agreement the plan to stay for further care. Gardner catheter is placed per her request given incontinence issues. Discussed with the hospitalist team for further care here. Order for small Hebert fentanyl was made given her pain in her right lower extremity. DIAGNOSIS: Acute CHF, acute UTI, right lower extremity cellulitis DISPOSITION: Hospitalist will evaluate Patient was agreeable with this plan. Past Med/Surg History Problem List (Updated 11/30/24 @ 17:06 by Pankaj Bahena M.D.) Cellulitis of leg, right (Acute) Acute UTI (Acute) CHF (congestive heart failure) (Acute) Septic shock Acute hypoxic on chronic hypercapnic respiratory failure Bilateral interstitial pneumonia (Acute) Hypotension (Acute) Hypoxia (Acute) Fall (Acute) Foot fracture, left (Acute) Type 2 diabetes mellitus Closed fracture of left lower extremity Hypocalcemia Hyperkalemia Hyponatremia Hypotension Acute hypoxic respiratory failure Hypomagnesemia (Acute) Cellulitis of right leg (Acute) Acute hyperglycemia (Acute) Cellulitis (Acute) Sepsis (Acute) Hypomagnesemia Diabetic ulcer of right great toe Demand ischemia Severe sepsis Nocturnal hypoxemia due to emphysema currently using 4L O2 at night Dyslipidemia HTN (hypertension) Morbid obesity due to excess calories COPD (chronic obstructive pulmonary disease) Stenosis of right subclavian artery (Acute) PAD (peripheral artery disease) (Acute) CAD (coronary artery disease) Type 2 diabetes mellitus with diabetic neuropathy Medical History Carotid artery stenosis GERD without esophagitis History of stroke History of nonmelanoma skin cancer Right inguinal hernia Sensorineural hearing loss SVT (supraventricular tachycardia) Urge incontinence Diabetic macular edema Diabetic retinopathy, nonproliferative Surgical History History of cholecystectomy Hx of sinus surgery Status post breast lumpectomy Hx of tubal ligation H/O: hysterectomy H/O cardiac radiofrequency ablation History of right-sided carotid endarterectomy S/P carpal tunnel release S/P femoropopliteal bypass surgery S/P drug eluting coronary stent placement S/P CABG x 3 Family History Other Cancer Diabetes Hypertension Social History Smoking Status: Never smoker Tobacco Type: Cigarettes Second Hand Exposure: No; Do You Dip or Chew Tobacco: No; Hx Alcohol Use: No Hx Substance Use: No Preferred Language: [place] Islander Communication Ability: Effective Emergency Doctor Required: No Beliefs That Will Affect Care: None Current Living Situation: Spouse and Family Feels Safe at Home: Yes Assistive Devices: Cane, Oxygen - Continuous, Special Shoe, Walker and Wheelchair Allergies Allergies Allergy/AdvReac Type Severity Reaction Status Date / Time paroxetine Allergy Severe HIVES;ANAPHYLAXIS-GENERIC Verified 11/30/24 16:51 BRAND nickel Allergy Intermediate RASH Verified 11/30/24 16:51 Penicillins Allergy Intermediate RASH Verified 11/30/24 16:51 Sulfa (Sulfonamide Allergy Intermediate RASH Verified 11/30/24 16:51 Antibiotics) doxepin AdvReac Intermediate HYPOTENSION Verified 11/30/24 16:51 Home Meds Home Medications Medication Instructions Recorded Confirmed albuterol sulfate 90 mcg/actuation 2 puff inhalation Q4H PRN 01/18/23 11/30/24 aerosol inhaler COUGH/WHEEZING amitriptyline 50 mg tablet 50 mg PO HS 01/18/23 11/30/24 aspirin 81 mg chewable tablet 81 mg PO QAM 01/18/23 11/30/24 atorvastatin 80 mg tablet 80 mg PO DAILY 01/18/23 11/30/24 empagliflozin 10 mg tablet 10 mg PO QAM 01/18/23 11/30/24 (Jardiance) fluticasone propionate 50 2 spray intranasal BID PRN 01/18/23 11/30/24 mcg/actuation nasal Congestion spray,suspension insulin glargine 100 unit/mL (3 30 unit subcut BID 01/18/23 11/30/24 mL) subcutaneous pen (Basaglar KwikPen U-100 Insulin) krill oil 1,000 mg-om3 130 mg-dha 1 cap PO QAM 01/18/23 11/30/24 40 mg-epa 80 [id number] cap (Krill Oil ([place] 3 and 6)) lorazepam 0.5 mg tablet 0.5 mg PO Q8H PRN ANXIETY/INSOMNIA 01/18/23 11/30/24 metformin 850 mg tablet 850 mg PO TIDM 01/18/23 11/30/24 metoprolol succinate 25 mg 25 mg PO QAM 01/18/23 11/30/24 tablet,extended release 24 hr rivaroxaban 2.5 mg tablet (Xarelto) 2.5 mg PO BID 01/18/23 11/30/24 ropinirole 0.5 mg tablet 0.5 mg PO HS 01/18/23 11/30/24 sertraline 50 mg tablet 100 mg PO QAM 01/18/23 11/30/24 tramadol 50 mg tablet 50 - 100 mg PO Q6H PRN Pain 01/18/23 11/30/24 cranberry fruit concentrate 250 mg 250 mg PO DAILY 03/02/23 11/30/24 chewable tablet (Azo Cranberry) clotrimazole 1 % topical cream 1 applic EXT BID PRN Skin 08/26/24 11/30/24 Irritation coenzyme Q10 100 mg capsule 100 mg PO DAILY 08/26/24 11/30/24 (CoQ-10) estradiol 0.01% (0.1 mg/gram) 0.5 g vaginal 2XWK PRN NEEDED 08/26/24 11/30/24 vaginal cream PRN PER PT. ezetimibe 10 mg tablet 10 mg PO QAM 08/26/24 11/30/24 furosemide 20 mg tablet 20 mg PO Q OTHER DAY 08/26/24 11/30/24 gabapentin 600 mg tablet 600 mg PO TID 08/26/24 11/30/24 insulin aspart 0 unit subcut AC 08/26/24 11/30/24 (niacinamide)(U-100) 100 unit/mL(3 mL) subcutaneous pen (Fiasp FlexTouch U-100 Insulin) tirzepatide 10 mg/0.5 mL 10 mg subcut WK 08/26/24 11/30/24 subcutaneous pen injector (Megan) oxybutynin chloride 5 mg 5 mg PO DAILY 11/09/24 11/30/24 tablet,extended release 24 hr Results & Data (ED) Vital Signs Vital Signs - 24 hr 11/30/24 13:02 11/30/24 13:09 11/30/24 13:18 Temperature 36.4 C L Temperature Source Oral Pulse Rate 78 Pulse Rate [Right Finger] 82 Pulse Rhythm Respiratory Rate 16 18 Respiratory Effort / Characteristics Non-Labored Spontaneous Non-Labored Spontaneous Respiratory Depth Normal Normal Respiratory Pattern Regular Regular Blood Pressure 109/61 Blood Pressure [Left Arm] 86/53 L Blood Pressure Mean 77 Blood Pressure Mean [Left Arm] 64 Blood Pressure Position Sitting Blood Pressure Position [Left Arm] Lying Pulse Oximetry 84 L 92 Oxygen Delivery Method Room Air Nasal Cannula Nasal Cannula Oxygen Flow Rate 4 4 Sepsis Recent Fever Within 48 Hours No Sepsis New/Unexplained Change in Mental Status No Sepsis Action Taken by Nursing No Action Required 11/30/24 13:27 11/30/24 13:40 11/30/24 15:38 Temperature Temperature Source Pulse Rate 78 80 Pulse Rate [Right Finger] 80 Pulse Rhythm Regular Respiratory Rate 20 22 Respiratory Effort / Characteristics Spontaneous Respiratory Depth Normal Respiratory Pattern Blood Pressure Blood Pressure [Left Arm] 137/72 Blood Pressure Mean Blood Pressure Mean [Left Arm] 93 Blood Pressure Position Blood Pressure Position [Left Arm] Pulse Oximetry 92 94 Oxygen Delivery Method Nasal Cannula Nasal Cannula Oxygen Flow Rate 4 Sepsis Recent Fever Within 48 Hours Sepsis New/Unexplained Change in Mental Status Sepsis Action Taken by Nursing Laboratory Data 11/30/24 13:50 11/30/24 14:21 Lab Results 11/30/24 11/30/24 11/30/24 Range/Units 13:50 14:03 14:05 WBC 7.15 (4.8-10.8) K/ul RBC 4.95 (4.20-5.40) M/uL Hgb 12.3 (12.0-16.0) g/dl POC Hgb (12.0-16.0) g/dl Hct 41.6 (37.0-47.0) % POC Hct (37-47) % MCV 84.0 (80.0-100.0) fL MCH 24.8 L (25.0-34.0) pg MCHC 29.6 L (32.0-36.0) g/dL RDW Std Deviation 62.6 H (36.4-46.3) fL RDW Coeff of Janice 21.2 H (11.5-14.5) % Plt Count 153 (130-400) K/uL MPV 11.2 (9.4-12.4) fL Immature Gran % (Auto) 0.3 % Neut % (Auto) 78.9 % Lymph % (Auto) 13.1 % Harper % (Auto) 6.6 % Eos % (Auto) 1.0 % Baso % (Auto) 0.1 % Neut # (Auto) 5.64 (1.40-6.50) K/uL Lymph # (Auto) 0.94 L (1.20-3.40) K/uL Harper # (Auto) 0.47 (0.11-0.59) K/uL Eos # (Auto) 0.07 (0.00-0.50) K/uL Baso # (Auto) 0.01 (0.00-0.20) K/uL Immature Gran # (Auto) 0.02 (0.01-0.20) K/uL Tear Drop Cells Occasional PT 10.9 (9.0-12.0) Seconds INR 1.0 (0.9-1.1) APTT 22 (21-31) Seconds PTT Ratio 0.8 POC Sodium (135-144) mmol/L Sodium 134 L (136-145) mmol/L POC Potassium (3.3-5.0) mmol/L Potassium 5.4 H (3.5-5.1) mmol/L POC Chloride (101-112) mmol/L Chloride 98 (98-107) mmol/L Carbon Dioxide 26 (21-32) mmol/L POC Total CO2 (24-31) mmol/L Anion Gap 10 (3-11) POC Anion Gap (16-25) mmol/L POC BUN (7-18) mg/dl BUN 18 (6-23) mg/dl Creatinine 0.91 (0.6-1.2) mg/dl POC Creatinine (0.6-1.3) mg/dl Est Cr Clr Drug Dosing Not Reportable eGFR 68.29 BUN/Creatinine Ratio 19.8 (10-20) Glucose 253 H (70-99(Fasting)) mg/dl POC Glucose (other) (70-99) mg/dl Lactate 3.9 H* (0.4-2.0) mmol/L Calcium 9.0 (8.6-10.3) mg/dl POC Ioniz Calcium Nely (1.12-1.32) mmol/l Magnesium 1.8 (1.7-2.4) mg/dl Total Bilirubin 0.5 (0.2-1.0) mg/dl AST 16 (13-39) U/L ALT 17 (7-52) U/L Alkaline Phosphatase 102 (34-104) U/L Troponin I High Sens 31.5 H (0-14) pg/ml B-Natriuretic Peptide 328 H (0-100) pg/ml Total Protein 7.0 (6.0-8.3) gm/dl Albumin 3.6 (3.4-5.0) gm/dl Globulin 3.4 (2.5-4.0) gm/dl Albumin/Globulin Ratio 1.1 (0.9-2) Procalcitonin 0.06 (0-0.5) ng/ml Urine Color Yellow Urine Appearance Clear (Clear) Urine pH 6.5 (4.5-7.5) Ur Specific [place] 1.024 (1.000-1.030) Urine Protein 1+ H (Negative) Urine Glucose (UA) 3+ H (Negative) Urine Ketones Negative (Negative) Urine Blood Negative (Negative) Urine Nitrite Negative (Negative) Urine Bilirubin Negative (Negative) Urine Urobilinogen Negative (Negative) Ur Leukocyte Esterase 1+ H (Negative) Urine WBC (Auto) >50 H (0-5) /hpf Urine RBC (Auto) 0-2 (0-2) /hpf U Hyaline Cast (Auto) 0-2 (0-2) /lpf U Epithel Cells (Auto) 0-2 (0-2) /hpf Urine Bacteria (Auto) None Seen (None Seen) Urine Comment Adenovirus (PCR) (NotDetected) B. pertussis DNA (PCR) (NotDetected) B.parapertussis DNA PCR (NotDetected) C. pneumoniae DNA (PCR) (NotDetected) Coronavirus OC43 (PCR) (NotDetected) Coronavirus HKU1 (PCR) (NotDetected) Coronavirus 229E (PCR) (NotDetected) SARS-CoV-2 (PCR) (NotDetected) Coronavirus NL63 (PCR) (NotDetected) Human Metapneumovir PCR (NotDetected) Influenza Type A (PCR) (NotDetected) Influenza Type B (PCR) (NotDetected) M. pneumoniae (PCR) (NotDetected) Parainfluenza 1 (PCR) (NotDetected) Parainfluenza 2 (PCR) (NotDetected) Parainfluenza 3 (PCR) (NotDetected) Parainfluenza 4 (PCR) (NotDetected) RSV (PCR) (NotDetected) Entero/Rhino (PCR) (NotDetected) 11/30/24 11/30/24 11/30/24 Range/Units 14:09 14:13 14:21 WBC (4.8-10.8) K/ul RBC (4.20-5.40) M/uL Hgb (12.0-16.0) g/dl POC Hgb 12.9 (12.0-16.0) g/dl Hct (37.0-47.0) % POC Hct 38 (37-47) % MCV (80.0-100.0) fL MCH (25.0-34.0) pg MCHC (32.0-36.0) g/dL RDW Std Deviation (36.4-46.3) fL RDW Coeff of Janice (11.5-14.5) % Plt Count (130-400) K/uL MPV (9.4-12.4) fL Immature Gran % (Auto) % Neut % (Auto) % Lymph % (Auto) % Harper % (Auto) % Eos % (Auto) % Baso % (Auto) % Neut # (Auto) (1.40-6.50) K/uL Lymph # (Auto) (1.20-3.40) K/uL Harper # (Auto) (0.11-0.59) K/uL Eos # (Auto) (0.00-0.50) K/uL Baso # (Auto) (0.00-0.20) K/uL Immature Gran # (Auto) (0.01-0.20) K/uL Tear Drop Cells PT (9.0-12.0) Seconds INR (0.9-1.1) APTT (21-31) Seconds PTT Ratio POC Sodium 133 L (135-144) mmol/L Sodium 136 (136-145) mmol/L POC Potassium 6.8 H* (3.3-5.0) mmol/L Potassium 5.4 H (3.5-5.1) mmol/L POC Chloride 101 (101-112) mmol/L Chloride 98 (98-107) mmol/L Carbon Dioxide 28 (21-32) mmol/L POC Total CO2 28 (24-31) mmol/L Anion Gap 10 (3-11) POC Anion Gap 12.0 L (16-25) mmol/L POC BUN 27 H (7-18) mg/dl BUN 18 (6-23) mg/dl Creatinine 0.93 (0.6-1.2) mg/dl POC Creatinine 0.9 (0.6-1.3) mg/dl Est Cr Clr Drug Dosing Not Reportable eGFR 66.53 BUN/Creatinine Ratio 19.4 (10-20) Glucose 229 H (70-99(Fasting)) mg/dl POC Glucose (other) 248 H (70-99) mg/dl Lactate (0.4-2.0) mmol/L Calcium 8.9 (8.6-10.3) mg/dl POC Ioniz Calcium Nely 1.04 L (1.12-1.32) mmol/l Magnesium (1.7-2.4) mg/dl Total Bilirubin (0.2-1.0) mg/dl AST (13-39) U/L ALT (7-52) U/L Alkaline Phosphatase (34-104) U/L Troponin I High Sens 29.9 H (0-14) pg/ml B-Natriuretic Peptide (0-100) pg/ml Total Protein (6.0-8.3) gm/dl Albumin (3.4-5.0) gm/dl Globulin (2.5-4.0) gm/dl Albumin/Globulin Ratio (0.9-2) Procalcitonin (0-0.5) ng/ml Urine Color Urine Appearance (Clear) Urine pH (4.5-7.5) Ur Specific [place] (1.000-1.030) Urine Protein (Negative) Urine Glucose (UA) (Negative) Urine Ketones (Negative) Urine Blood (Negative) Urine Nitrite (Negative) Urine Bilirubin (Negative) Urine Urobilinogen (Negative) Ur Leukocyte Esterase (Negative) Urine WBC (Auto) (0-5) /hpf Urine RBC (Auto) (0-2) /hpf U Hyaline Cast (Auto) (0-2) /lpf U Epithel Cells (Auto) (0-2) /hpf Urine Bacteria (Auto) (None Seen) Urine Comment Adenovirus (PCR) (NotDetected) B. pertussis DNA (PCR) (NotDetected) B.parapertussis DNA PCR (NotDetected) C. pneumoniae DNA (PCR) (NotDetected) Coronavirus OC43 (PCR) (NotDetected) Coronavirus HKU1 (PCR) (NotDetected) Coronavirus 229E (PCR) (NotDetected) SARS-CoV-2 (PCR) (NotDetected) Coronavirus NL63 (PCR) (NotDetected) Human Metapneumovir PCR (NotDetected) Influenza Type A (PCR) (NotDetected) Influenza Type B (PCR) (NotDetected) M. pneumoniae (PCR) (NotDetected) Parainfluenza 1 (PCR) (NotDetected) Parainfluenza 2 (PCR) (NotDetected) Parainfluenza 3 (PCR) (NotDetected) Parainfluenza 4 (PCR) (NotDetected) RSV (PCR) (NotDetected) Entero/Rhino (PCR) (NotDetected) 11/30/24 11/30/24 Range/Units 15:50 Unknown WBC (4.8-10.8) K/ul RBC (4.20-5.40) M/uL Hgb (12.0-16.0) g/dl POC Hgb (12.0-16.0) g/dl Hct (37.0-47.0) % POC Hct (37-47) % MCV (80.0-100.0) fL MCH (25.0-34.0) pg MCHC (32.0-36.0) g/dL RDW Std Deviation (36.4-46.3) fL RDW Coeff of Janice (11.5-14.5) % Plt Count (130-400) K/uL MPV (9.4-12.4) fL Immature Gran % (Auto) % Neut % (Auto) % Lymph % (Auto) % Harper % (Auto) % Eos % (Auto) % Baso % (Auto) % Neut # (Auto) (1.40-6.50) K/uL Lymph # (Auto) (1.20-3.40) K/uL Harper # (Auto) (0.11-0.59) K/uL Eos # (Auto) (0.00-0.50) K/uL Baso # (Auto) (0.00-0.20) K/uL Immature Gran # (Auto) (0.01-0.20) K/uL Tear Drop Cells PT (9.0-12.0) Seconds INR (0.9-1.1) APTT (21-31) Seconds PTT Ratio POC Sodium (135-144) mmol/L Sodium (136-145) mmol/L POC Potassium (3.3-5.0) mmol/L Potassium (3.5-5.1) mmol/L POC Chloride (101-112) mmol/L Chloride (98-107) mmol/L Carbon Dioxide (21-32) mmol/L POC Total CO2 (24-31) mmol/L Anion Gap (3-11) POC Anion Gap (16-25) mmol/L POC BUN (7-18) mg/dl BUN (6-23) mg/dl Creatinine (0.6-1.2) mg/dl POC Creatinine (0.6-1.3) mg/dl Est Cr Clr Drug Dosing eGFR BUN/Creatinine Ratio (10-20) Glucose (70-99(Fasting)) mg/dl POC Glucose (other) (70-99) mg/dl Lactate 2.4 H* (0.4-2.0) mmol/L Calcium (8.6-10.3) mg/dl POC Ioniz Calcium Nely (1.12-1.32) mmol/l Magnesium (1.7-2.4) mg/dl Total Bilirubin (0.2-1.0) mg/dl AST (13-39) U/L ALT (7-52) U/L Alkaline Phosphatase (34-104) U/L Troponin I High Sens (0-14) pg/ml B-Natriuretic Peptide (0-100) pg/ml Total Protein (6.0-8.3) gm/dl Albumin (3.4-5.0) gm/dl Globulin (2.5-4.0) gm/dl Albumin/Globulin Ratio (0.9-2) Procalcitonin (0-0.5) ng/ml Urine Color Urine Appearance (Clear) Urine pH (4.5-7.5) Ur Specific [place] (1.000-1.030) Urine Protein (Negative) Urine Glucose (UA) (Negative) Urine Ketones (Negative) Urine Blood (Negative) Urine Nitrite (Negative) Urine Bilirubin (Negative) Urine Urobilinogen (Negative) Ur Leukocyte Esterase (Negative) Urine WBC (Auto) (0-5) /hpf Urine RBC (Auto) (0-2) /hpf U Hyaline Cast (Auto) (0-2) /lpf U Epithel Cells (Auto) (0-2) /hpf Urine Bacteria (Auto) (None Seen) Urine Comment Adenovirus (PCR) Not Detected (NotDetected) B. pertussis DNA (PCR) Not Detected (NotDetected) B.parapertussis DNA PCR Not Detected (NotDetected) C. pneumoniae DNA (PCR) Not Detected (NotDetected) Coronavirus OC43 (PCR) Not Detected (NotDetected) Coronavirus HKU1 (PCR) Not Detected (NotDetected) Coronavirus 229E (PCR) Not Detected (NotDetected) SARS-CoV-2 (PCR) Not Detected (NotDetected) Coronavirus NL63 (PCR) Not Detected (NotDetected) Human Metapneumovir PCR Not Detected (NotDetected) Influenza Type A (PCR) Not Detected (NotDetected) Influenza Type B (PCR) Not Detected (NotDetected) M. pneumoniae (PCR) Not Detected (NotDetected) Parainfluenza 1 (PCR) Not Detected (NotDetected) Parainfluenza 2 (PCR) Not Detected (NotDetected) Parainfluenza 3 (PCR) Not Detected (NotDetected) Parainfluenza 4 (PCR) Not Detected (NotDetected) RSV (PCR) Not Detected (NotDetected) Entero/Rhino (PCR) Not Detected (NotDetected) Administered Medications Discontinued Medications Furosemide (Furosemide Inj 20 Mg/2 Ml Vial) 20 mg IV ONE ONE Stop: 11/30/24 15:43 Last Admin: 11/30/24 16:32 Dose: 20 mg Documented By: akv Cefepime HCl (Maxipime 2000mg) 2,000 mg in 20 mls @ 5 mls/min IV NOW STA; Protocol Stop: 11/30/24 15:32 Last Admin: 11/30/24 16:32 Dose: 5 mls/min Documented By: [email or web address] Ioversol (Optiray 320 125ml) 120 ml IV ONCE ONE Stop: 11/30/24 16:16 Last Admin: 11/30/24 16:16 Dose: 120 ml Documented By: EDK Imaging Data Radiologist's Impression: Chest X-Ray 11/30/24 13:27 Exam: Chest one view portable. Reason for exam: Shortness of breath with right lower leg swelling and redness. Previous studies: 11/09/2024. FINDINGS: Heart remains enlarged but is stable. Mild chronic interstitial lung opacities are seen without new active infiltrate or edema. Chronic elevation the right hemidiaphragm is stable. IMPRESSION: Stable cardiomegaly and interstitial lung disease. No new acute cardiopulmonary abnormality seen at this time. Electronically signed by Juan Shah 11-30-2024 2:19 PM Tibia/Fibula X-Ray 11/30/24 13:27 Clinical History: Swelling and redness 2 views of the right lower leg are submitted for review. Findings: No fracture or dislocation is seen. There is mild ankle joint osteoarthritis. No other osseous abnormality is identified. There are no radiopaque foreign bodies. Vascular calcifications are present Impression: 1. No definite fracture 2. Ankle joint osteoarthritis Electronically signed by Artem Casas 11-30-2024 2:20 PM Discharge Plan Visit Data Chief Complaint: Infection Stated Complaint: CELLULITIS, R LEG ED Provider: Pankaj Bahena Discharge Problem: Acute UTI, Cellulitis of leg, right, CHF (congestive heart failure) Patient Disposition: Being Evaluated by Hospitalist Condition: Fair Forms Stand Alone Forms: [facility] Prescriptions Prescriptions: No Action atorvastatin 80 mg tablet 80 mg PO DAILY metformin 850 mg tablet 850 mg PO TIDM tramadol 50 mg tablet 50 - 100 mg PO Q6H PRN (Reason: Pain) amitriptyline 50 mg tablet 50 mg PO HS lorazepam 0.5 mg tablet 0.5 mg PO Q8H PRN (Reason: ANXIETY/INSOMNIA) ropinirole 0.5 mg tablet 0.5 mg PO HS Rx Instructions: TAKE BEFORE NAPS & HS. aspirin 81 mg Tablet,Chewable 81 mg PO QAM metoprolol succinate 25 mg tablet extended release 24 hr 25 mg PO QAM albuterol sulfate 90 mcg/actuation HFA aerosol inhaler 2 puff INHALATION Q4H PRN (Reason: COUGH/WHEEZING) fluticasone propionate 50 mcg/actuation [place],Suspension 2 spray INTRANASAL BID PRN (Reason: Congestion) Rx Instructions: administer into each nostril sertraline 50 mg tablet 100 mg PO QAM insulin glargine [Basaglar KwikPen U-100 Insulin] 100 unit/mL (3 mL) insulin pen 30 unit SUBCUT BID Krill Oil ([place] 3 and 6) 1000-130(40-80) mg Capsule 1 cap PO QAM Jardiance 10 mg tablet 10 mg PO QAM rivaroxaban [Xarelto] 2.5 mg tablet 2.5 mg PO BID Azo Cranberry 250 mg Tablet,Chewable 250 mg PO DAILY oxybutynin chloride 5 mg tablet extended release 24hr 5 mg PO DAILY Patient Comments: last filled 11/08 90 day supply Fiasp FlexTouch U-100 Insulin 100 unit/mL (3 mL) insulin pen 0 unit subcut AC Rx Instructions: PER PT "SLIDING SCALE" LAST ORDERED: TAKES 26 UNITS/BREAKFAST, 18 UNITS/LUNCH, & 20 UNITS/SUPPER Mounjaro 10 mg/0.5 mL pen injector 10 mg SUBCUT WK Rx Instructions: WEDNESDAYS gabapentin 600 mg tablet 600 mg PO TID estradiol 0.01 % (0.1 mg/gram) cream 0.5 g VAGINAL 2XWK PRN (Reason: NEEDED PRN PER PT.) ezetimibe 10 mg tablet 10 mg PO QAM coenzyme Q10 [CoQ-10] 100 mg Capsule 100 mg PO DAILY furosemide 20 mg tablet 20 mg PO Q OTHER DAY clotrimazole 1 % cream 1 applic EXT BID PRN (Reason: Skin Irritation) Rx Instructions: Apply to right and left groin twice a day for 10 days Referrals Referrals: Jonny Donaldson MD [Primary Care Provider] -
[2024-11-30 14:12] LABS: Hematocrit (blood only) 41.6 % (37.0-47.0); Hemoglobin 12.3 g/dl (12.0-16.0); Mean Corpuscular Hemoglobin 24.8 pg (25.0-34.0); Mean Corpuscular Volume 84.0 fL (80.0-100.0); Platelet Count 153 K/uL (130-400); RDW Standard Deviation 62.6 fL (36.4-46.3); Red Blood Count 4.95 M/uL (4.20-5.40); White Blood Count 7.15 K/ul (4.8-10.8)
--- NOTE | 2024-11-30 14:20 | XRay Report ---
Exam: Chest one view portable. Reason for exam: Shortness of breath with right lower leg swelling and redness. Previous studies: 11/09/2024. FINDINGS: Heart remains enlarged but is stable. Mild chronic interstitial lung opacities are seen without new active infiltrate or edema. Chronic elevation the right hemidiaphragm is stable. IMPRESSION: Stable cardiomegaly and interstitial lung disease. No new acute cardiopulmonary abnormality seen at this time. Electronically signed by Juan Shah 11-30-2024 2:19 PM
--- NOTE | 2024-11-30 14:21 | XRay Report ---
Clinical History: Swelling and redness 2 views of the right lower leg are submitted for review. Findings: No fracture or dislocation is seen. There is mild ankle joint osteoarthritis. No other osseous abnormality is identified. There are no radiopaque foreign bodies. Vascular calcifications are present Impression: 1. No definite fracture 2. Ankle joint osteoarthritis Electronically signed by Artem Casas 11-30-2024 2:20 PM
[2024-11-30 14:22] LABS: Alanine Aminotransferase 17 U/L (7-52); Albumin Globulin Ratio 1.1 (0.9-2); Albumin Level 3.6 gm/dl (3.4-5.0); Alkaline Phosphatase 102 U/L (34-104); Anion Gap 10 (3-11); Bilirubin,Total 0.5 mg/dl (0.2-1.0); Blood Urea Nitrogen 18 mg/dl (6-23); Calcium 9.0 mg/dl (8.6-10.3); Carbon Dioxide 26 mmol/L (21-32); Chloride 98 mmol/L (98-107); Globulin 3.4 gm/dl (2.5-4.0); Glucose 253 mg/dl (70-99(Fasting)); Magnesium 1.8 mg/dl (1.7-2.4); Potassium 5.4 mmol/L (3.5-5.1); Sodium 134 mmol/L (136-145); Total Protein 7.0 gm/dl (6.0-8.3)
[2024-11-30 14:29] LABS: Immature Granulocytes # (auto) 0.02 K/uL (0.01-0.20); Immature Granulocytes % (auto) 0.3 %; Tear Drop Cells Occasional
[2024-11-30 14:30] LABS: INR 1.0 (0.9-1.1); Partial Thromboplastin Time 22 Seconds (21-31); Prothrombin Time 10.9 Seconds (9.0-12.0)
[2024-11-30 14:30] LABS: Appearance Urine Clear (Clear); Bacteria Urine Automated None Seen (None Seen); Cast Urine Automated 0-2 /lpf (0-2); Epithelial Cell Urine Auto 0-2 /hpf (0-2); Glucose Urine UA 3+ (Negative); RBC Urine Automated 0-2 /hpf (0-2); WBC Urine Automated >50 /hpf (0-5)
[2024-11-30 14:59] LABS: Anion Gap 10 (3-11); Blood Urea Nitrogen 18 mg/dl (6-23); Calcium 8.9 mg/dl (8.6-10.3); Carbon Dioxide 28 mmol/L (21-32); Chloride 98 mmol/L (98-107); Glucose 229 mg/dl (70-99(Fasting)); Potassium 5.4 mmol/L (3.5-5.1); Sodium 136 mmol/L (136-145)
[2024-11-30 16:00] LABS: Chlamydia pneumoniae PCR Not Detected (NotDetected); Coronavirus 229E PCR Not Detected (NotDetected); Coronavirus CoV-2 (COVID19)PCR Not Detected (NotDetected); Coronavirus HKU1 PCR Not Detected (NotDetected); Coronavirus NL63 PCR Not Detected (NotDetected); Coronavirus OC43PCR Not Detected (NotDetected); Human Metapneumovirus PCR Not Detected (NotDetected); Parainfluenza Virus 1 PCR Not Detected (NotDetected); Parainfluenza Virus 2 PCR Not Detected (NotDetected); Parainfluenza Virus 3 PCR Not Detected (NotDetected); Parainfluenza Virus 4 PCR Not Detected (NotDetected); Respiratory Syncytial VirusPCR Not Detected (NotDetected); Rhinovirus/Enterovirus PCR Not Detected (NotDetected)
[2024-11-30] MEDS: OPTIRAY 320 125ml IV ONE (16:16)
[2024-11-30] MEDS: FUROSEMIDE INJ 20 MG/2 ML VIAL IV ONE (16:32)
[2024-11-30] MEDS: CEFEPIME 2000MG 2,000 MG/20 ML SYR IV STA (16:32)
[2024-11-30] MEDS ORDERED: ALBUTEROL HFA 8 GM INHALER INH PRN (16:50)
[2024-11-30] MEDS ORDERED: PHARMACY GLYCEMIC MGMT CONSULT PRN (16:54)
[2024-11-30] MEDS ORDERED: ONDANSETRON INJ 2 MG/ML 2 ML VIAL IV PRN (16:54)
[2024-11-30] MEDS ORDERED: Patient's HEIGHT &/or WEIGHT Needed STA (17:14)
--- NOTE | 2024-11-30 17:29 | CT Scan Report ---
CT pulmonary angiogram with IV contrast History: Chest pain COMPARISON: None TECHNIQUE: CT angiography of the chest was performed without IV contrast followed by IV contrast, including 3D post processing CTA image reconstruction. Dose reduction techniques were achieved by using automatic exposure control and/or adjustment of mA and/or kV according to patient size and/or use of iterative reconstruction technique. FINDINGS: Diagnostic quality: Adequate There is no evidence for pulmonary embolism. The heart is enlarged. Heavy coronary calcifications. Status post CABG. There are prominent aortic valve calcifications. There is no pericardial effusion. There are no abnormally enlarged hilar or mediastinal lymph nodes. The central tracheobronchial tree is clear. Mosaic attenuation of the lungs. Scattered streaky atelectasis in the lingula and lung bases, in the right middle lobe. Mild intralobular septal thickening in the upper lungs may be seen with interstitial pulmonary edema. There is no pleural effusion. Limited visualized upper abdomen. No destructive osseous changes are seen. IMPRESSION: No evidence for pulmonary embolism. Findings suggestive of mild interstitial pulm edema. Mosaic attenuation of the lung suggesting small airway or small vessel disease. CABG changes. Electronically signed by Giorgio Chan 11-30-2024 5:28 PM
--- NOTE | 2024-11-30 17:57 | History & Physical Report ---
Date of Service November 30, 2024 Assessment & Plan (1) Cellulitis of leg, right: Plan: -started on cefepime -wound care consult -ID consulted (2) Acute UTI: Plan: -f/u urine C&S -cefepime (3) CHF (congestive heart failure): Plan: -CTA shows mild pulmonary edema -lasix 20mg IV BID (4) Hyperkalemia: Plan: -K+5.4 -lokelma TID -f/u BMP (5) Type 2 diabetes mellitus: Plan: -Pharm consult for glycemic managment -lantus 30U BID (6) COPD (chronic obstructive pulmonary disease): Plan: -duonebs -4L home 02 (7) PAD (peripheral artery disease): Plan: -xarelto (8) Depression: Plan: -sertraline -amitriptyline History of Present Illness Chief Complaint: Right leg redness Primary Care Provider: Jonny Donaldson MD Pt is a 69 y/o female with PMH of COPD on 4L intermittent home 02, HTN, PVD, on xarelto, DM, CHF, anxiety, depression who presents with right leg blisters with surrounding erythema. Pt states she had a fall in which she scrapped her right meza last month resulting in blister formation. She had wound dressing and took a course of doxycycline and has worsening erythema and swelling. She also complains of increasing SOB, and was found to have 02 sats in the low 80s in the ER. Her labs showed elevated K+ 5.4 and cr 0.9. She had a UA + for UTI. Pt also had CTA chest, which was negative for PE or infiltrated, but did show mild pulmonary edema. Pt was started on cefepime for treatment of her right lower ext cellulitis and UTI as well as lasix for her pulmonary edema. Allergies Allergy/AdvReac Type Severity Reaction Status Date / Time paroxetine Allergy Severe HIVES;ANAPHYLAXIS-GENERIC Verified 11/30/24 16:51 BRAND nickel Allergy Intermediate RASH Verified 11/30/24 16:51 Penicillins Allergy Intermediate RASH Verified 11/30/24 16:51 Sulfa (Sulfonamide Allergy Intermediate RASH Verified 11/30/24 16:51 Antibiotics) doxepin AdvReac Intermediate HYPOTENSION Verified 11/30/24 16:51 Home Medications Medication Instructions Recorded Confirmed Type albuterol sulfate 90 mcg/actuation 2 puff inhalation Q4H PRN 01/18/23 11/30/24 History aerosol inhaler COUGH/WHEEZING amitriptyline 50 mg tablet 50 mg PO HS 01/18/23 11/30/24 History aspirin 81 mg chewable tablet 81 mg PO QAM 01/18/23 11/30/24 History atorvastatin 80 mg tablet 80 mg PO DAILY 01/18/23 11/30/24 History empagliflozin 10 mg tablet 10 mg PO QAM 01/18/23 11/30/24 History (Jardiance) fluticasone propionate 50 2 spray intranasal BID PRN 01/18/23 11/30/24 History mcg/actuation nasal Congestion spray,suspension insulin glargine 100 unit/mL (3 30 unit subcut BID 01/18/23 11/30/24 History mL) subcutaneous pen (Basaglar KwikPen U-100 Insulin) krill oil 1,000 mg-om3 130 mg-dha 1 cap PO QAM 01/18/23 11/30/24 History 40 mg-epa 80 [id number] cap (Krill Oil ([place] 3 and 6)) lorazepam 0.5 mg tablet 0.5 mg PO Q8H PRN ANXIETY/INSOMNIA 01/18/23 11/30/24 History metformin 850 mg tablet 850 mg PO TIDM 01/18/23 11/30/24 History metoprolol succinate 25 mg 25 mg PO QAM 01/18/23 11/30/24 History tablet,extended release 24 hr rivaroxaban 2.5 mg tablet (Xarelto) 2.5 mg PO BID 01/18/23 11/30/24 History ropinirole 0.5 mg tablet 0.5 mg PO HS 01/18/23 11/30/24 History sertraline 50 mg tablet 100 mg PO QAM 01/18/23 11/30/24 History tramadol 50 mg tablet 50 - 100 mg PO Q6H PRN Pain 01/18/23 11/30/24 History cranberry fruit concentrate 250 mg 250 mg PO DAILY 03/02/23 11/30/24 History chewable tablet (Azo Cranberry) clotrimazole 1 % topical cream 1 applic EXT BID PRN Skin 08/26/24 11/30/24 History Irritation coenzyme Q10 100 mg capsule 100 mg PO DAILY 08/26/24 11/30/24 History (CoQ-10) estradiol 0.01% (0.1 mg/gram) 0.5 g vaginal 2XWK PRN NEEDED 08/26/24 11/30/24 History vaginal cream PRN PER PT. ezetimibe 10 mg tablet 10 mg PO QAM 08/26/24 11/30/24 History furosemide 20 mg tablet 20 mg PO Q OTHER DAY 08/26/24 11/30/24 History gabapentin 600 mg tablet 600 mg PO TID 08/26/24 11/30/24 History insulin aspart 0 unit subcut AC 08/26/24 11/30/24 History (niacinamide)(U-100) 100 unit/mL(3 mL) subcutaneous pen (Fiasp FlexTouch U-100 Insulin) tirzepatide 10 mg/0.5 mL 10 mg subcut WK 08/26/24 11/30/24 History subcutaneous pen injector (Mounjaro) oxybutynin chloride 5 mg 5 mg PO DAILY 11/09/24 11/30/24 History tablet,extended release 24 hr Past Med/Surg History Problem List (Updated 11/30/24 @ 17:53 by Caleb Garcia MD) Depression Cellulitis of leg, right (Acute) Acute UTI (Acute) CHF (congestive heart failure) (Acute) Septic shock Acute hypoxic on chronic hypercapnic respiratory failure Bilateral interstitial pneumonia (Acute) Hypotension (Acute) Hypoxia (Acute) Fall (Acute) Foot fracture, left (Acute) Type 2 diabetes mellitus Closed fracture of left lower extremity Hypocalcemia Hyperkalemia Hyponatremia Hypotension Acute hypoxic respiratory failure Hypomagnesemia (Acute) Cellulitis of right leg (Acute) Acute hyperglycemia (Acute) Cellulitis (Acute) Sepsis (Acute) Hypomagnesemia Diabetic ulcer of right great toe Demand ischemia Severe sepsis Nocturnal hypoxemia due to emphysema currently using 4L O2 at night Dyslipidemia HTN (hypertension) Morbid obesity due to excess calories COPD (chronic obstructive pulmonary disease) Stenosis of right subclavian artery (Acute) PAD (peripheral artery disease) (Acute) CAD (coronary artery disease) Type 2 diabetes mellitus with diabetic neuropathy Medical History Carotid artery stenosis GERD without esophagitis History of stroke History of nonmelanoma skin cancer Right inguinal hernia Sensorineural hearing loss SVT (supraventricular tachycardia) Urge incontinence Diabetic macular edema Diabetic retinopathy, nonproliferative Surgical History History of cholecystectomy Hx of sinus surgery Status post breast lumpectomy Hx of tubal ligation H/O: hysterectomy H/O cardiac radiofrequency ablation History of right-sided carotid endarterectomy S/P carpal tunnel release S/P femoropopliteal bypass surgery S/P drug eluting coronary stent placement S/P CABG x 3 Family History Other Cancer Diabetes Hypertension Social History Smoking Status: Never smoker Tobacco Type: Cigarettes Second Hand Exposure: No; Do You Dip or Chew Tobacco: No; Hx Alcohol Use: No Hx Substance Use: No Preferred Language: Kiswahili Communication Ability: Effective 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 HENT: Negative for neck pain/stiffness, headache, congestion, sore throat, swelling. EYES: Negative for discharge/pain or vision changes. RESP: Negative for cough/hemoptysis and + shortness of breath. CV: Negative chest pain, difficulty breathing, palpitations. ABD: Negative pain, nausea, vomiting. : Negative increase frequency, dysuria, blood in urine or stool. MUSC: Negative for muscle aches, edema. SKIN: Negative rash, lesions/sores. Right leg with erythema and swelling NEURO: Negative headache, dizziness, weakness. Physical Exam Physical Exam: GENERAL APPEARANCE NAD, activity normal for age, well developed/ well nourished, no cyanosis, pallor, or diaphoresis. EYES lids/conjunctiva normal. EARS/NOSE/THROAT Mucous membranes moist, nares normal, lips/teeth normal uvula midline without oral pharyngeal erythema, exudate or swelling TMs normal bilaterally. No lymphangitis/lymphedema. HEAD/NECK normocephalic atraumatic, no facial trauma, neck is supple. RESPIRATORY respiratory effort normal, speaks in full sentences, no tripod position, no accessory muscle use. Lungs clear to auscultation without rhonchi, wheezes, rales CARDIAC Regular rate and rhythm, no edema. ABDOMINAL Soft, ND/NT. No evidence of fluid wave. No pulsatile masses on exam, rebound tenderness, Gerardo sign or pain over Mcburney's point. MUSCLES/EXTREMITIES No abnormal range of motion, no swelling. SKIN Warm, pink and dry. No rashes, dermatoses, petechiae or lesions. Right lower ext with erythema on dorsum NEUROLOGICAL Speech is clear and appropriate. Normal level of consciousness. Gait and coordination are normal. 5/5 strength in all extremities. PSYCH Normal mood and affect. Judgement/competence is appropriate Results & Data Results & Data Vital Signs (Past 12 Hours) Vital Signs Temp Pulse Pulse Resp BP BP Pulse Ox 11/30/24 17:43 72 11/30/24 17:38 73 20 103/82 94 11/30/24 17:33 74 17 103/82 93 11/30/24 15:38 80 22 137/72 94 11/30/24 13:40 80 11/30/24 13:27 78 20 92 11/30/24 13:18 82 18 86/53 L 92 11/30/24 13:09 11/30/24 13:02 36.4 C L 78 16 109/61 84 L O2 Del Method O2 Flow Rate 11/30/24 17:43 11/30/24 17:38 Room Air 11/30/24 17:33 Nasal Cannula 3 11/30/24 15:38 Nasal Cannula 11/30/24 13:40 11/30/24 13:27 Nasal Cannula 4 11/30/24 13:18 Nasal Cannula 4 11/30/24 13:09 Nasal Cannula 4 11/30/24 13:02 Room Air PG Care Time/CCT Total # of Minutes Spent Total Time Spent with Patient: Total time spent is greater than 50% in coordination of care (as documented) at patient's floor/unit and/or counseling patient: Coding Level of Care Code 75597 INT INP/OBS CARE 2/55MIN Diagnoses Cellulitis of leg, right L03.115 Acute UTI N39.0 CHF (congestive heart failure) I50.9 Hyperkalemia E87.5 Type 2 diabetes mellitus E11.9 Pulmonary emphysema, unspecified emphysema type J43.9 COPD type: emphysema Emphysema type: unspecified PAD (peripheral artery disease) I73.9 Depression F32.A (6) COPD (chronic obstructive pulmonary disease) COPD type: emphysema Emphysema type: unspecified Qualified Code(s): J43.9 - Emphysema, unspecified
[2024-11-30] MEDS ORDERED: CARBOHYDRATES FOR HYPOGLYCEMIA PO PRN (19:00)
[2024-11-30] MEDS ORDERED: DEXTROSE 50% 50 ML SYRINGE IV PRN (19:00)
[2024-11-30] MEDS ORDERED: GLUCOSE 10 TAB/TUBE PO PRN (19:00)
[2024-11-30] MEDS ORDERED: GLUCOSE 40% GEL 15 GM TUBE PO PRN (19:00)
[2024-11-30] MEDS ORDERED: GLUCAGON FOR INJ 1 MG VIAL SQ PRN (19:00)
[2024-11-30] MEDS: SODIUM ZIRCONIUM CYCLOSILICATE 10 GM PACKET PO SCH (19:03)
[2024-11-30] MEDS: AMITRIPTYLINE HCL 50 MG TAB PO SCH (21:29)
[2024-11-30] MEDS: GABAPENTIN 600 MG TAB PO SCH (21:29)
[2024-11-30] MEDS: FUROSEMIDE INJ 20 MG/2 ML VIAL IV SCH (21:30)
[2024-11-30] MEDS: RIVAROXABAN 2.5 MG TAB PO SCH (21:30)
[2024-11-30] MEDS: INSULIN ASPART PER UNIT CHARGE SC SCH (21:51)
[2024-11-30] MEDS: LANTUS PER UNIT CHARGE SQ SCH (21:52)
[2024-11-30] MEDS: CEFEPIME 2000MG 2,000 MG/20 ML SYR IV SCH (23:33)
[2024-12-01 06:59] LABS: Hematocrit (blood only) 44.4 % (37.0-47.0); Hemoglobin 13.0 g/dl (12.0-16.0); Mean Corpuscular Hemoglobin 24.9 pg (25.0-34.0); Mean Corpuscular Volume 84.9 fL (80.0-100.0); Platelet Count 169 K/uL (130-400); RDW Standard Deviation 63.3 fL (36.4-46.3); Red Blood Count 5.23 M/uL (4.20-5.40); White Blood Count 6.47 K/ul (4.8-10.8)
[2024-12-01 07:22] LABS: Anion Gap 5.0 (3-11); Blood Urea Nitrogen 18.0 mg/dl (6-23); Calcium 9.1 mg/dl (8.6-10.3); Carbon Dioxide 37.0 mmol/L (21-32); Chloride 97.0 mmol/L (98-107); Creatinine Clr Calc Pharmacy 72.8 ml/min; Glucose 168.0 mg/dl (70-99(Fasting)); Potassium 5.0 mmol/L (3.5-5.1); Sodium 139.0 mmol/L (136-145)
[2024-12-01] MEDS: ASPIRIN 81 MG CHEW PO SCH (08:31)
[2024-12-01] MEDS: METOPROLOL SUCC 25MG EXT REL TAB PO SCH (08:32)
[2024-12-01] MEDS: ATORVASTATIN 40 MG TAB PO SCH (08:32)
[2024-12-01] MEDS: OXYBUTYNIN CHLORIDE XL 5 MG TABCR PO SCH (08:32)
[2024-12-01] MEDS: EZETIMIBE 10 MG TAB PO SCH (08:33)
[2024-12-01] MEDS: SERTRALINE HCL 100 MG TABLET PO SCH (08:33)
[2024-12-01] MEDS ORDERED: EMPAGLIFLOZIN 10 MG TAB PO SCH (09:00)
[2024-12-01] MEDS ORDERED: FUROSEMIDE 20 MG TAB PO SCH (09:00)
[2024-12-01 09:04] LABS: Hemoglobin A1C 7.7 % (4.5-5.6)
--- NOTE | 2024-12-01 11:12 | Hospitalist Progress Note ---
Date of Service December 01, 2024 Assessment & Plan (1) Cellulitis of leg, right: Plan: -started on cefepime -ID consulted -less erythema, improving -wound care consult pending (2) Acute UTI: Plan: -f/u urine C&S -cefepime (3) CHF (congestive heart failure): Plan: -CTA shows mild pulmonary edema -lasix 20mg IV BID -symptoms resolving (4) Hyperkalemia: Plan: -lokelma TID -f/u BMP (5) Type 2 diabetes mellitus: Plan: -Pharm consult for glycemic managment -lantus 30U BID (6) COPD (chronic obstructive pulmonary disease): Plan: -duonebs -4L home 02 (7) PAD (peripheral artery disease): Plan: -xarelto (8) Depression: Plan: -sertraline -amitriptyline Plan D/C home on PO abx and wound care recommendations for LE cellulitis in 24-48hrs Admission and Anticipated Discharge Date Admission Date: November 30, 2024 Subjective Pt feeling better this am, breathing has improved, leg less red. Review of Systems Review of Systems: CONST: Negative for fever, body aches and chills. HENT: Negative for neck pain/stiffness, headache, congestion, sore throat, swelling. EYES: Negative for discharge/pain or vision changes. RESP: Negative for cough/hemoptysis and + shortness of breath. CV: Negative chest pain, difficulty breathing, palpitations. ABD: Negative pain, nausea, vomiting. : Negative increase frequency, dysuria, blood in urine or stool. MUSC: Negative for muscle aches, edema. SKIN: Negative rash, lesions/sores. Right leg with erythema and swelling NEURO: Negative headache, dizziness, weakness. Physical Exam Physical Exam: GENERAL APPEARANCE NAD, activity normal for age, well developed/ well nourished, no cyanosis, pallor, or diaphoresis. EYES lids/conjunctiva normal. EARS/NOSE/THROAT Mucous membranes moist, nares normal, lips/teeth normal uvula midline without oral pharyngeal erythema, ex udate or swelling TMs normal bilaterally. No lymphangitis/lymphedema. HEAD/NECK normocephalic atraumatic, no facial trauma, neck is supple. RESPIRATORY respiratory effort normal, speaks in full sentences, no tripod position, no accessory muscle use. Lungs clear to auscultation without rhonchi, wheezes, rales CARDIAC Regular rate and rhythm, no edema. ABDOMINAL Soft, ND/NT. No evidence of fluid wave. No pulsatile masses on exam, rebound tenderness, Gerardo sign or pain over Mcburney's point. MUSCLES/EXTREMITIES No abnormal range of motion, no swelling. SKIN Warm, pink and dry. No rashes, dermatoses, petechiae or lesions. Right lower ext with erythema on dorsum NEUROLOGICAL Speech is clear and appropriate. Normal level of consciousness. Gait and coordination are normal. 5/5 strength in all extremities. PSYCH Normal mood and affect. Judgement/competence is appropriate Results & Data Results & Data Vital Signs (Past 12 Hours) Vital Signs Temp Pulse Pulse Resp BP Pulse Ox O2 Del Method 12/01/24 08:37 36.4 C L 75 20 104/65 91 Nasal Cannula 12/01/24 07:41 71 12/01/24 02:18 36.3 C L 84 16 106/70 92 Nasal Cannula O2 Flow Rate 12/01/24 08:37 6 12/01/24 07:41 12/01/24 02:18 6 PG Care Time/CCT Total # of Minutes Spent Total Time Spent with Patient: Total time spent is greater than 50% in coordination of care (as documented) at patient's floor/unit and/or counseling patient: Coding Level of Care Code 08910 SUB INP/OBS CARE 2/35MIN Diagnoses Cellulitis of leg, right L03.115 Acute UTI N39.0 CHF (congestive heart failure) I50.9 Hyperkalemia E87.5 Type 2 diabetes mellitus E11.9 Pulmonary emphysema, unspecified emphysema type J43.9 COPD type: emphysema Emphysema type: unspecified PAD (peripheral artery disease) I73.9 Depression F32.A (6) COPD (chronic obstructive pulmonary disease) COPD type: emphysema Emphysema type: unspecified Qualified Code(s): J43.9 - Emphysema, unspecified
--- NOTE | 2024-12-01 11:51 | Electrocardiogram Report ---
Test Reason : Blood Pressure : */* mmHG Vent. Rate : 75 BPM Atrial Rate : 75 BPM P-R Int : 204 ms QRS Dur : 114 ms QT Int : 414 ms P-R-T Axes : 14 88 58 degrees QTcB Int : 462 ms Normal sinus rhythm Low voltage QRS Nonspecific T wave abnormality Abnormal ECG When compared with ECG of 09-Nov-2024 15:54, QRS axis Shifted right Nonspecific T wave abnormality now evident in Anterolateral leads Confirmed by Slias Sibley ([id number]) on 12/01/2024 11:51:27 AM Referred By: REFERRED SELF Confirmed By: Silas Sibley
--- NOTE | 2024-12-01 13:56 | Pharmacy Report ---
Pharmacy Glycemic Short Note 2 - Date of Service December 01, 2024 - Glycemic Short BSG Results (Last 24 hours): 11/30/24 11/30/24 11/30/24 13:50 14:13 14:21 Glucose 253 H 229 H POC Glucose POC Glucose (other) 248 H 11/30/24 12/01/24 12/01/24 21:22 06:27 11:52 Glucose 168 H POC Glucose 167 H 197 H POC Glucose (other) OUTPATIENT ANTIDIABETIC REGIMEN: * Lantus 30 units SC BID * Novolog sliding scale * Empagliflozin 10 mg PO qAM * Metformin 850 mg PO TIDM * Mounjaro 10 mg SC weekly HbA1c: 7.7% (12/01/24) ASSESSMENT: * DS is a 69 year old female with right leg cellulitis/UTI (on cefepime) * History of T2DM, reasonably controlled with insulin and orals * T2DM diet ordered PLAN FOR INPATIENT GLYCEMIC CONTROL: * Hold outpatient oral diabetes medications * Basal insulin * Lantus 15-20 units SQ BID (see EHR for details) * Bolus insulin * NovoLog per scale ACHS or Q6hrs while NPO * Goal Range: Low 120 mg/dL - High 160 mg/dL * Correction Factor: 20 mg/dL/unit * Nutritional / Prandial insulin per carb ratio of 1 unit per 6 grams CHO consumed
[2024-12-01] MEDS: NITROFURANTOIN MONOHYDRATE 100 MG CAP PO SCH ×2 (14:41→15:28)
[2024-12-01] MEDS: LANTUS PER UNIT CHARGE SQ SCH (21:12)
[2024-12-01] MEDS: ACETAMINOPHEN 325 MG TAB PO PRN (22:34)
--- NOTE | 2024-12-02 00:01 | XRay Report ---
Exam(s): XR CXR 1 VIEW EXAM: XR Chest, 1 View CLINICAL HISTORY: Reason for exam: CHF. TECHNIQUE: Frontal view of the chest. COMPARISON: 11/30/2024 FINDINGS: Lungs: Unchanged interstitial edema. Pleural space: No pleural effusion. No pneumothorax. Heart: Cardiomegaly. Upper abdomen: Elevated right hemidiaphragm. IMPRESSION: Unchanged interstitial edema. Electronically signed by: Tariq Webster MD 12/02/24 00:00 AM
[2024-12-02 06:58] LABS: Hematocrit (blood only) 42.6 % (37.0-47.0); Hemoglobin 12.4 g/dl (12.0-16.0); Mean Corpuscular Hemoglobin 24.4 pg (25.0-34.0); Mean Corpuscular Volume 83.9 fL (80.0-100.0); Platelet Count 150 K/uL (130-400); RDW Standard Deviation 62.0 fL (36.4-46.3); Red Blood Count 5.08 M/uL (4.20-5.40); White Blood Count 6.02 K/ul (4.8-10.8)
[2024-12-02 07:18] LABS: Anion Gap 6.0 (3-11); Blood Urea Nitrogen 20.0 mg/dl (6-23); Calcium 8.7 mg/dl (8.6-10.3); Carbon Dioxide 35.0 mmol/L (21-32); Chloride 96.0 mmol/L (98-107); Creatinine Clr Calc Pharmacy 75.8 ml/min; Glucose 156.0 mg/dl (70-99(Fasting)); Potassium 3.9 mmol/L (3.5-5.1); Sodium 137.0 mmol/L (136-145)
[2024-12-02] MEDS: DAPTOmycin 500 MG in SYRINGE 0 ML IV SCH (12:16)
--- NOTE | 2024-12-02 13:20 | Infectious Disease Consult ---
Date of Consultation December 02, 2024 Assessment & Plan (1) Cellulitis of leg, right: (2) Acute hypoxic on chronic hypercapnic respiratory failure: (3) Type 2 diabetes mellitus: Plan This is a 69-year-old female with a past medical history of hypertension, COPD, PAD status post emergent revascularization of right lower extremity, CAD status post CABG, DM2 with neuropathy, carotid artery stenosis, prior CVA recently admitted 11/08/2024 - 11/11/2024 after a mechanical fall. She scraped her right meza during the fall some blisters. During that admission she was found to be hypotensive and hypoxic. Found to have a left foot fracture. She was briefly on pressors and was treated for community-acquired pneumonia with Rocephin and then discharged on cefpodoxime and doxycycline. She presents on 11/30/2024 with right foot swelling and erythema. She took antibiotics as prescribed. She denies any fever, chills, sweats, new trauma or falls to the leg. She denied any dysuria/hematuria/changes in urinary or bowel habits. On admission, she was afebrile and hypoxic requiring 4 L nasal cannula. In the ED noted to have right lower extremity erythema and edema with chronic stasis of the left leg. She had some seepage from prior blister sites. Labs: WBC 7.15, potassium 5.4, BUN 18, creatinine 0.93, lactate 2.4,. Urinalysis with greater than 50 WBC. RVP negative. Chest x-ray shows stable cardiomegaly and interstitial lung disease. No new acute cardiopulmonary abnormality. Right tib-fib x-ray shows no definitive fracture. Ankle joint osteoarthritis. CTA chest shows no evidence of PE. Findings suggestive of mild interstitial pulmonary edema. Findings suggesting small airway or small vessel disease. ID consulted for cellulitis. Microbiology 11/30 blood culture NGTD 11/30 urine culture 70 KE faecalis Antibiotics Cefepime urrent #RLE cellulitis # PAD #Acute respiratory failure on O2, in the setting of interstitial edema # DM2 # ASYMPtomatic pyuria # Penicillin allergyrash # Sulfa allergyrash Discussiona few weeks ago she fell and scraped her right meza as well as suffered a left foot fracture. Recent admission for pneumonia for which she was discharged on cefpodoxime and doxycycline. Apparently cellulitis worsened on these antibiotics. ? if infection with a gram negative as she reports some improvement since starting cefepime. Will continue for now. E faecalis in urine does not need to be treated as patient is asymptomatic for UTI. Recommendations Continue cefepime 2 g IV every 8 hours Follow-up blood cultures Monitor clinically Thank you for this consult. ID will continue to follow. Allan Markham MD, MPH Infectious Disease [facility], [facility] Call [phone] with questions Consultation Information Consultation was provided via telemedicine using two-way real-time interactive telecommunication between the patient and the telemedicine provider. For the duration of the visit, the provider was performing the assessment from a different facility than the patient. This includesuse of bluetooth stethoscope forauscultationperformed by the telepresenter that the telemedicine provider can hear if described in the physical exam. General Adjuster contact information: Please call [facility] Call Center [phone]. (Phone Number For Physician Use Only) After establishing a telemedicine visit, patient was: Patient was verified with two unique identifiers and Gave permission to continue telehealth session Time Spent with Patient: Initial => 75 min History of Present Illness Reason for Consultation: RLE cellulitis Requesting Physician: Aura Hebert MD Attending Physician: Aura Hebert MD History of Present Illness This is a 69-year-old female with a past medical history of hypertension, COPD, PAD status post emergent revascularization of right lower extremity, CAD status post CABG, DM2 with neuropathy, carotid artery stenosis, prior CVA recently admitted 11/08/2024 - 11/11/2024 after a mechanical fall. She scraped her right meza during the fall some blisters. During that admission she was found to be hypotensive and hypoxic. Found to have a left foot fracture. She was briefly on pressors and was treated for community-acquired pneumonia with Rocephin and then discharged on cefpodoxime and doxycycline. She presents on 11/30/2024 with right foot swelling and erythema. She took antibiotics as prescribed. She denies any fever, chills, sweats, new trauma or falls to the leg. She denied any dysuria/hematuria/changes in urinary or bowel habits. On admission, she was afebrile and hypoxic requiring 4 L nasal cannula. In the ED noted to have right lower extremity erythema and edema with chronic stasis of the left leg. She had some seepage from prior blister sites. Labs: WBC 7.15, potassium 5.4, BUN 18, creatinine 0.93, lactate 2.4,. Urinalysis with greater than 50 WBC. RVP negative. Chest x-ray shows stable cardiomegaly and interstitial lung disease. No new acute cardiopulmonary abnormality. Right tib-fib x-ray shows no definitive fracture. Ankle joint osteoarthritis. CTA chest shows no evidence of PE. Findings suggestive of mild interstitial pulmonary edema. Findings suggesting small airway or small vessel disease. ID consulted for cellulitis. Allergies Allergy/AdvReac Type Severity Reaction Status Date / Time paroxetine Allergy Severe HIVES;ANAPHYLAXIS-GENERIC Verified 11/30/24 16:51 BRAND nickel Allergy Intermediate RASH Verified 11/30/24 16:51 Penicillins Allergy Intermediate RASH Verified 11/30/24 16:51 Sulfa (Sulfonamide Allergy Intermediate RASH Verified 11/30/24 16:51 Antibiotics) doxepin AdvReac Intermediate HYPOTENSION Verified 11/30/24 16:51 Home Medications Medication Instructions Recorded Confirmed Type albuterol sulfate 90 mcg/actuation 2 puff inhalation Q4H PRN 01/18/23 11/30/24 History aerosol inhaler COUGH/WHEEZING amitriptyline 50 mg tablet 50 mg PO HS 01/18/23 11/30/24 History aspirin 81 mg chewable tablet 81 mg PO QAM 01/18/23 11/30/24 History atorvastatin 80 mg tablet 80 mg PO DAILY 01/18/23 11/30/24 History empagliflozin 10 mg tablet 10 mg PO QAM 01/18/23 11/30/24 History (Jardiance) fluticasone propionate 50 2 spray intranasal BID PRN 01/18/23 11/30/24 History mcg/actuation nasal Congestion spray,suspension insulin glargine 100 unit/mL (3 30 unit subcut BID 01/18/23 11/30/24 History mL) subcutaneous pen (Basaglar KwikPen U-100 Insulin) krill oil 1,000 mg-om3 130 mg-dha 1 cap PO QAM 01/18/23 11/30/24 History 40 mg-epa 80 [id number] cap (Krill Oil (Gratis 3 and 6)) lorazepam 0.5 mg tablet 0.5 mg PO Q8H PRN ANXIETY/INSOMNIA 01/18/23 11/30/24 History metformin 850 mg tablet 850 mg PO TIDM 01/18/23 11/30/24 History metoprolol succinate 25 mg 25 mg PO QAM 01/18/23 11/30/24 History tablet,extended release 24 hr rivaroxaban 2.5 mg tablet (Xarelto) 2.5 mg PO BID 01/18/23 11/30/24 History ropinirole 0.5 mg tablet 0.5 mg PO HS 01/18/23 11/30/24 History sertraline 50 mg tablet 100 mg PO QAM 01/18/23 11/30/24 History tramadol 50 mg tablet 50 - 100 mg PO Q6H PRN Pain 01/18/23 11/30/24 History cranberry fruit concentrate 250 mg 250 mg PO DAILY 03/02/23 11/30/24 History chewable tablet (Azo Cranberry) clotrimazole 1 % topical cream 1 applic EXT BID PRN Skin 08/26/24 11/30/24 History Irritation coenzyme Q10 100 mg capsule 100 mg PO DAILY 08/26/24 11/30/24 History (CoQ-10) estradiol 0.01% (0.1 mg/gram) 0.5 g vaginal 2XWK PRN NEEDED 08/26/24 11/30/24 History vaginal cream PRN PER PT. ezetimibe 10 mg tablet 10 mg PO QAM 08/26/24 11/30/24 History furosemide 20 mg tablet 20 mg PO Q OTHER DAY 08/26/24 11/30/24 History gabapentin 600 mg tablet 600 mg PO TID 08/26/24 11/30/24 History insulin aspart 0 unit subcut AC 08/26/24 11/30/24 History (niacinamide)(U-100) 100 unit/mL(3 mL) subcutaneous pen (Fiasp FlexTouch U-100 Insulin) tirzepatide 10 mg/0.5 mL 10 mg subcut WK 08/26/24 11/30/24 History subcutaneous pen injector (Mounjaro) oxybutynin chloride 5 mg 5 mg PO DAILY 11/09/24 11/30/24 History tablet,extended release 24 hr Patient History Medical History Carotid artery stenosis GERD without esophagitis History of stroke History of nonmelanoma skin cancer Right inguinal hernia Sensorineural hearing loss SVT (supraventricular tachycardia) Urge incontinence Diabetic macular edema Diabetic retinopathy, nonproliferative Surgical History History of cholecystectomy Hx of sinus surgery Status post breast lumpectomy Hx of tubal ligation H/O: hysterectomy H/O cardiac radiofrequency ablation History of right-sided carotid endarterectomy S/P carpal tunnel release S/P femoropopliteal bypass surgery S/P drug eluting coronary stent placement S/P CABG x 3 Family History Other Cancer Diabetes Hypertension Social History Smoking Status: Former smoker Tobacco Type: Cigarettes Second Hand Exposure: No; Do You Dip or Chew Tobacco: No; Hx Alcohol Use: No Hx Substance Use: No Preferred Language: [place]er Communication Ability: Effective Lace Pinner Required: No Beliefs That Will Affect Care: None Current Living Situation: Spouse Feels Safe at Home: Yes Assistive Devices: Cane, Oxygen - Continuous and Walker Review of System A 10 point ROS obtained. Pertinent positives as per HPI Physical Exam Physical Exam: NAD Anicteric sclera, EOMI Supple neck Soft, obese, NT Non labored breathing, On 6l NC RLE erythema, mild warmth and tenderness. unroofed blisters , scabs AAo times 3 Cooperative Results & Data Vital Signs (Past 12 Hours) Vital Signs Temp Pulse Pulse Resp BP Pulse Ox O2 Del Method 12/02/24 11:30 36.5 C 76 18 124/75 96 Room Air 12/02/24 08:04 36.3 C L 82 18 80/60 L 92 Nasal Cannula 12/02/24 07:55 Nasal Cannula 12/02/24 07:24 72 O2 Flow Rate 12/02/24 11:30 12/02/24 08:04 6 12/02/24 07:55 6 12/02/24 07:24 Laboratory Results Laboratory Results - last 48 hr 11/30/24 11/30/24 11/30/24 13:50 14:03 14:05 WBC 7.15 RBC 4.95 Hgb 12.3 POC Hgb Hct 41.6 POC Hct MCV 84.0 MCH 24.8 L MCHC 29.6 L RDW Std Deviation 62.6 H RDW Coeff of Janice 21.2 H Plt Count 153 MPV 11.2 Immature Gran % (Auto) 0.3 Neut % (Auto) 78.9 Lymph % (Auto) 13.1 [place] % (Auto) 6.6 Eos % (Auto) 1.0 Baso % (Auto) 0.1 Neut # (Auto) 5.64 Lymph # (Auto) 0.94 L [place] # (Auto) 0.47 Eos # (Auto) 0.07 Baso # (Auto) 0.01 Immature Gran # (Auto) 0.02 Tear Drop Cells Occasional PT 10.9 INR 1.0 APTT 22 PTT Ratio 0.8 POC Sodium Sodium 134 L POC Potassium Potassium 5.4 H POC Chloride Chloride 98 Carbon Dioxide 26 POC Total CO2 Anion Gap 10 POC Anion Gap POC BUN BUN 18 Creatinine 0.91 POC Creatinine Est Cr Clr Drug Dosing Not Reportable eGFR 68.29 BUN/Creatinine Ratio 19.8 Glucose 253 H POC Glucose POC Glucose (other) Estimat Average Glucose Hemoglobin A1c Lactate 3.9 H* Calcium 9.0 POC Ioniz Calcium Nely Magnesium 1.8 Total Bilirubin 0.5 AST 16 ALT 17 Alkaline Phosphatase 102 Troponin I High Sens 31.5 H B-Natriuretic Peptide 328 H Total Protein 7.0 Albumin 3.6 Globulin 3.4 Albumin/Globulin Ratio 1.1 Procalcitonin 0.06 Urine Color Yellow Urine Appearance Clear Urine pH 6.5 Ur Specific [place] 1.024 Urine Protein 1+ H Urine Glucose (UA) 3+ H Urine Ketones Negative Urine Blood Negative Urine Nitrite Negative Urine Bilirubin Negative Urine Urobilinogen Negative Ur Leukocyte Esterase 1+ H Urine WBC (Auto) >50 H Urine RBC (Auto) 0-2 U Hyaline Cast (Auto) 0-2 U Epithel Cells (Auto) 0-2 Urine Bacteria (Auto) None Seen Urine Comment Adenovirus (PCR) B. pertussis DNA (PCR) B.parapertussis DNA PCR C. pneumoniae DNA (PCR) Coronavirus OC43 (PCR) Coronavirus HKU1 (PCR) Coronavirus 229E (PCR) SARS-CoV-2 (PCR) Coronavirus NL63 (PCR) Human Metapneumovir PCR Influenza Type A (PCR) Influenza Type B (PCR) M. pneumoniae (PCR) Parainfluenza 1 (PCR) Parainfluenza 2 (PCR) Parainfluenza 3 (PCR) Parainfluenza 4 (PCR) RSV (PCR) Entero/Rhino (PCR) 11/30/24 11/30/24 11/30/24 14:09 14:13 14:21 WBC RBC Hgb POC Hgb 12.9 Hct POC Hct 38 MCV MCH MCHC RDW Std Deviation RDW Coeff of Janice Plt Count MPV Immature Gran % (Auto) Neut % (Auto) Lymph % (Auto) [place] % (Auto) Eos % (Auto) Baso % (Auto) Neut # (Auto) Lymph # (Auto) [place] # (Auto) Eos # (Auto) Baso # (Auto) Immature Gran # (Auto) Tear Drop Cells PT INR APTT PTT Ratio POC Sodium 133 L Sodium 136 POC Potassium 6.8 H* Potassium 5.4 H POC Chloride 101 Chloride 98 Carbon Dioxide 28 POC Total CO2 28 Anion Gap 10 POC Anion Gap 12.0 L POC BUN 27 H BUN 18 Creatinine 0.93 POC Creatinine 0.9 Est Cr Clr Drug Dosing Not Reportable eGFR 66.53 BUN/Creatinine Ratio 19.4 Glucose 229 H POC Glucose POC Glucose (other) 248 H Estimat Average Glucose Hemoglobin A1c Lactate Calcium 8.9 POC Ioniz Calcium Nely 1.04 L Magnesium Total Bilirubin AST ALT Alkaline Phosphatase Troponin I High Sens 29.9 H B-Natriuretic Peptide Total Protein Albumin Globulin Albumin/Globulin Ratio Procalcitonin Urine Color Urine Appearance Urine pH Ur Specific [place] Urine Protein Urine Glucose (UA) Urine Ketones Urine Blood Urine Nitrite Urine Bilirubin Urine Urobilinogen Ur Leukocyte Esterase Urine WBC (Auto) Urine RBC (Auto) U Hyaline Cast (Auto) U Epithel Cells (Auto) Urine Bacteria (Auto) Urine Comment Adenovirus (PCR) B. pertussis DNA (PCR) B.parapertussis DNA PCR C. pneumoniae DNA (PCR) Coronavirus OC43 (PCR) Coronavirus HKU1 (PCR) Coronavirus 229E (PCR) SARS-CoV-2 (PCR) Coronavirus NL63 (PCR) Human Metapneumovir PCR Influenza Type A (PCR) Influenza Type B (PCR) M. pneumoniae (PCR) Parainfluenza 1 (PCR) Parainfluenza 2 (PCR) Parainfluenza 3 (PCR) Parainfluenza 4 (PCR) RSV (PCR) Entero/Rhino (PCR) 11/30/24 11/30/24 11/30/24 15:50 21:22 Unknown WBC RBC Hgb POC Hgb Hct POC Hct MCV MCH MCHC RDW Std Deviation RDW Coeff of Janice Plt Count MPV Immature Gran % (Auto) Neut % (Auto) Lymph % (Auto) [place] % (Auto) Eos % (Auto) Baso % (Auto) Neut # (Auto) Lymph # (Auto) [place] # (Auto) Eos # (Auto) Baso # (Auto) Immature Gran # (Auto) Tear Drop Cells PT INR APTT PTT Ratio POC Sodium Sodium POC Potassium Potassium POC Chloride Chloride Carbon Dioxide POC Total CO2 Anion Gap POC Anion Gap POC BUN BUN Creatinine POC Creatinine Est Cr Clr Drug Dosing eGFR BUN/Creatinine Ratio Glucose POC Glucose 167 H POC Glucose (other) Estimat Average Glucose Hemoglobin A1c Lactate 2.4 H* Calcium POC Ioniz Calcium Nely Magnesium Total Bilirubin AST ALT Alkaline Phosphatase Troponin I High Sens B-Natriuretic Peptide Total Protein Albumin Globulin Albumin/Globulin Ratio Procalcitonin Urine Color Urine Appearance Urine pH Ur Specific [place] Urine Protein Urine Glucose (UA) Urine Ketones Urine Blood Urine Nitrite Urine Bilirubin Urine Urobilinogen Ur Leukocyte Esterase Urine WBC (Auto) Urine RBC (Auto) U Hyaline Cast (Auto) U Epithel Cells (Auto) Urine Bacteria (Auto) Urine Comment Adenovirus (PCR) Not Detected B. pertussis DNA (PCR) Not Detected B.parapertussis DNA PCR Not Detected C. pneumoniae DNA (PCR) Not Detected Coronavirus OC43 (PCR) Not Detected Coronavirus HKU1 (PCR) Not Detected Coronavirus 229E (PCR) Not Detected SARS-CoV-2 (PCR) Not Detected Coronavirus NL63 (PCR) Not Detected Human Metapneumovir PCR Not Detected Influenza Type A (PCR) Not Detected Influenza Type B (PCR) Not Detected M. pneumoniae (PCR) Not Detected Parainfluenza 1 (PCR) Not Detected Parainfluenza 2 (PCR) Not Detected Parainfluenza 3 (PCR) Not Detected Parainfluenza 4 (PCR) Not Detected RSV (PCR) Not Detected Entero/Rhino (PCR) Not Detected 12/01/24 12/01/24 12/01/24 06:27 11:52 16:58 WBC 6.47 RBC 5.23 Hgb 13.0 POC Hgb Hct 44.4 POC Hct MCV 84.9 MCH 24.9 L MCHC 29.3 L RDW Std Deviation 63.3 H RDW Coeff of Janice 21.3 H Plt Count 169 MPV 10.7 Immature Gran % (Auto) Neut % (Auto) Lymph % (Auto) [place] % (Auto) Eos % (Auto) Baso % (Auto) Neut # (Auto) Lymph # (Auto) [place] # (Auto) Eos # (Auto) Baso # (Auto) Immature Gran # (Auto) Tear Drop Cells PT INR APTT PTT Ratio POC Sodium Sodium 139 POC Potassium Potassium 5.0 POC Chloride Chloride 97 L Carbon Dioxide 37 H POC Total CO2 Anion Gap 5 POC Anion Gap POC BUN BUN 18 Creatinine 1.02 POC Creatinine Est Cr Clr Drug Dosing 72.8 eGFR 59.55 BUN/Creatinine Ratio 17.6 Glucose 168 H POC Glucose 197 H 148 H POC Glucose (other) Estimat Average Glucose 174 Hemoglobin A1c 7.7 H Lactate Calcium 9.1 POC Ioniz Calcium Nely Magnesium Total Bilirubin AST ALT Alkaline Phosphatase Troponin I High Sens B-Natriuretic Peptide Total Protein Albumin Globulin Albumin/Globulin Ratio Procalcitonin Urine Color Urine Appearance Urine pH Ur Specific [place] Urine Protein Urine Glucose (UA) Urine Ketones Urine Blood Urine Nitrite Urine Bilirubin Urine Urobilinogen Ur Leukocyte Esterase Urine WBC (Auto) Urine RBC (Auto) U Hyaline Cast (Auto) U Epithel Cells (Auto) Urine Bacteria (Auto) Urine Comment Adenovirus (PCR) B. pertussis DNA (PCR) B.parapertussis DNA PCR C. pneumoniae DNA (PCR) Coronavirus OC43 (PCR) Coronavirus HKU1 (PCR) Coronavirus 229E (PCR) SARS-CoV-2 (PCR) Coronavirus NL63 (PCR) Human Metapneumovir PCR Influenza Type A (PCR) Influenza Type B (PCR) M. pneumoniae (PCR) Parainfluenza 1 (PCR) Parainfluenza 2 (PCR) Parainfluenza 3 (PCR) Parainfluenza 4 (PCR) RSV (PCR) Entero/Rhino (PCR) 12/01/24 12/02/24 12/02/24 20:08 06:30 08:16 WBC 6.02 RBC 5.08 Hgb 12.4 POC Hgb Hct 42.6 POC Hct MCV 83.9 MCH 24.4 L MCHC 29.1 L RDW Std Deviation 62.0 H RDW Coeff of Janice 21.0 H Plt Count 150 MPV 9.7 Immature Gran % (Auto) Neut % (Auto) Lymph % (Auto) [place] % (Auto) Eos % (Auto) Baso % (Auto) Neut # (Auto) Lymph # (Auto) [place] # (Auto) Eos # (Auto) Baso # (Auto) Immature Gran # (Auto) Tear Drop Cells PT INR APTT PTT Ratio POC Sodium Sodium 137 POC Potassium Potassium 3.9 D POC Chloride Chloride 96 L Carbon Dioxide 35 H POC Total CO2 Anion Gap 6 POC Anion Gap POC BUN BUN 20 Creatinine 0.98 POC Creatinine Est Cr Clr Drug Dosing 75.8 eGFR 62.48 BUN/Creatinine Ratio 20.4 H Glucose 156 H POC Glucose 185 H 152 H POC Glucose (other) Estimat Average Glucose Hemoglobin A1c Lactate Calcium 8.7 POC Ioniz Calcium Nely Magnesium Total Bilirubin AST ALT Alkaline Phosphatase Troponin I High Sens B-Natriuretic Peptide Total Protein Albumin Globulin Albumin/Globulin Ratio Procalcitonin Urine Color Urine Appearance Urine pH Ur Specific [place] Urine Protein Urine Glucose (UA) Urine Ketones Urine Blood Urine Nitrite Urine Bilirubin Urine Urobilinogen Ur Leukocyte Esterase Urine WBC (Auto) Urine RBC (Auto) U Hyaline Cast (Auto) U Epithel Cells (Auto) Urine Bacteria (Auto) Urine Comment Adenovirus (PCR) B. pertussis DNA (PCR) B.parapertussis DNA PCR C. pneumoniae DNA (PCR) Coronavirus OC43 (PCR) Coronavirus HKU1 (PCR) Coronavirus 229E (PCR) SARS-CoV-2 (PCR) Coronavirus NL63 (PCR) Human Metapneumovir PCR Influenza Type A (PCR) Influenza Type B (PCR) M. pneumoniae (PCR) Parainfluenza 1 (PCR) Parainfluenza 2 (PCR) Parainfluenza 3 (PCR) Parainfluenza 4 (PCR) RSV (PCR) Entero/Rhino (PCR) 12/02/24 11:54 WBC RBC Hgb POC Hgb Hct POC Hct MCV MCH MCHC RDW Std Deviation RDW Coeff of Janice Plt Count MPV Immature Gran % (Auto) Neut % (Auto) Lymph % (Auto) [place] % (Auto) Eos % (Auto) Baso % (Auto) Neut # (Auto) Lymph # (Auto) [place] # (Auto) Eos # (Auto) Baso # (Auto) Immature Gran # (Auto) Tear Drop Cells PT INR APTT PTT Ratio POC Sodium Sodium POC Potassium Potassium POC Chloride Chloride Carbon Dioxide POC Total CO2 Anion Gap POC Anion Gap POC BUN BUN Creatinine POC Creatinine Est Cr Clr Drug Dosing eGFR BUN/Creatinine Ratio Glucose POC Glucose 154 H POC Glucose (other) Estimat Average Glucose Hemoglobin A1c Lactate Calcium POC Ioniz Calcium Nely Magnesium Total Bilirubin AST ALT Alkaline Phosphatase Troponin I High Sens B-Natriuretic Peptide Total Protein Albumin Globulin Albumin/Globulin Ratio Procalcitonin Urine Color Urine Appearance Urine pH Ur Specific [place] Urine Protein Urine Glucose (UA) Urine Ketones Urine Blood Urine Nitrite Urine Bilirubin Urine Urobilinogen Ur Leukocyte Esterase Urine WBC (Auto) Urine RBC (Auto) U Hyaline Cast (Auto) U Epithel Cells (Auto) Urine Bacteria (Auto) Urine Comment Adenovirus (PCR) B. pertussis DNA (PCR) B.parapertussis DNA PCR C. pneumoniae DNA (PCR) Coronavirus OC43 (PCR) Coronavirus HKU1 (PCR) Coronavirus 229E (PCR) SARS-CoV-2 (PCR) Coronavirus NL63 (PCR) Human Metapneumovir PCR Influenza Type A (PCR) Influenza Type B (PCR) M. pneumoniae (PCR) Parainfluenza 1 (PCR) Parainfluenza 2 (PCR) Parainfluenza 3 (PCR) Parainfluenza 4 (PCR) RSV (PCR) Entero/Rhino (PCR) Microbiology 11/30/24 14:05 Urine,Clean Catch Urine Culture - Final Enterococcus faecalis 11/30/24 14:15 Blood Aerobic Blood Culture - Preliminary No growth in Aerobic bottle after 24 hours. 11/30/24 14:15 Blood Anaerobic Blood Culture - Preliminary No growth in Anaerobic bottle after 24 hours. 11/30/24 14:03 Blood Aerobic Blood Culture - Preliminary No growth in Aerobic bottle after 24 hours. 11/30/24 14:03 Blood Anaerobic Blood Culture - Preliminary No growth in Anaerobic bottle after 24 hours. Diagnostic Findings Chest X-Ray 11/30/24 13:27 Exam: Chest one view portable. Reason for exam: Shortness of breath with right lower leg swelling and redness. Previous studies: 11/09/2024. FINDINGS: Heart remains enlarged but is stable. Mild chronic interstitial lung opacities are seen without new active infiltrate or edema. Chronic elevation the right hemidiaphragm is stable. IMPRESSION: Stable cardiomegaly and interstitial lung disease. No new acute cardiopulmonary abnormality seen at this time. Electronically signed by Juan Shah 11-30-2024 2:19 PM Tibia/Fibula X-Ray 11/30/24 13:27 Clinical History: Swelling and redness 2 views of the right lower leg are submitted for review. Findings: No fracture or dislocation is seen. There is mild ankle joint osteoarthritis. No other osseous abnormality is identified. There are no radiopaque foreign bodies. Vascular calcifications are present Impression: 1. No definite fracture 2. Ankle joint osteoarthritis Electronically signed by Artem Casas 11-30-2024 2:20 PM Chest CTA 11/30/24 15:29 CT pulmonary angiogram with IV contrast History: Chest pain COMPARISON: None TECHNIQUE: CT angiography of the chest was performed without IV contrast followed by IV contrast, including 3D post processing CTA image reconstruction. Dose reduction techniques were achieved by using automatic exposure control and/or adjustment of mA and/or kV according to patient size and/or use of iterative reconstruction technique. FINDINGS: Diagnostic quality: Adequate There is no evidence for pulmonary embolism. The heart is enlarged. Heavy coronary calcifications. Status post CABG. There are prominent aortic valve calcifications. There is no pericardial effusion. There are no abnormally enlarged hilar or mediastinal lymph nodes. The central tracheobronchial tree is clear. Mosaic attenuation of the lungs. Scattered streaky atelectasis in the lingula and lung bases, in the right middle lobe. Mild intralobular septal thickening in the upper lungs may be seen with interstitial pulmonary edema. There is no pleural effusion. Limited visualized upper abdomen. No destructive osseous changes are seen. IMPRESSION: No evidence for pulmonary embolism. Findings suggestive of mild interstitial pulm edema. Mosaic attenuation of the lung suggesting small airway or small vessel disease. CABG changes. Electronically signed by Giorgio Chan 11-30-2024 5:28 PM Chest X-Ray 12/01/24 22:35 Exam(s): XR CXR 1 VIEW EXAM: XR Chest, 1 View CLINICAL HISTORY: Reason for exam: CHF. TECHNIQUE: Frontal view of the chest. COMPARISON: 11/30/2024 FINDINGS: Lungs: Unchanged interstitial edema. Pleural space: No pleural effusion. No pneumothorax. Heart: Cardiomegaly. Upper abdomen: Elevated right hemidiaphragm. IMPRESSION: Unchanged interstitial edema. Electronically signed by: Tariq Webster MD 12/02/24 00:00 AM Medications Administered Home Medications Medication Instructions Recorded Confirmed Last Taken albuterol sulfate 90 mcg/actuation 2 puff inhalation Q4H PRN 01/18/23 11/30/24 Unknown aerosol inhaler COUGH/WHEEZING amitriptyline 50 mg tablet 50 mg PO HS 01/18/23 11/30/24 11/29/24 aspirin 81 mg chewable tablet 81 mg PO QAM 01/18/23 11/30/24 11/30/24 atorvastatin 80 mg tablet 80 mg PO DAILY 01/18/23 11/30/24 11/30/24 empagliflozin 10 mg tablet 10 mg PO QAM 01/18/23 11/30/24 11/30/24 (Jardiance) fluticasone propionate 50 2 spray intranasal BID PRN 01/18/23 11/30/24 Unknown mcg/actuation nasal Congestion spray,suspension insulin glargine 100 unit/mL (3 30 unit subcut BID 01/18/23 11/30/24 11/30/24 08:00 mL) subcutaneous pen (Basaglar StevePen U-100 Insulin) krill oil 1,000 mg-om3 130 mg-dha 1 cap PO QAM 01/18/23 11/30/24 11/30/24 40 mg-epa 80 id-pd2-adf-astax cap (Krill Oil (Gratis 3 and 6)) lorazepam 0.5 mg tablet 0.5 mg PO Q8H PRN ANXIETY/INSOMNIA 01/18/23 11/30/24 03/01/23 metformin 850 mg tablet 850 mg PO TIDM 01/18/23 11/30/24 11/30/24 08:00 metoprolol succinate 25 mg 25 mg PO QAM 01/18/23 11/30/24 11/30/24 tablet,extended release 24 hr rivaroxaban 2.5 mg tablet (Xarelto) 2.5 mg PO BID 01/18/23 11/30/24 11/30/24 08:00 ropinirole 0.5 mg tablet 0.5 mg PO HS 01/18/23 11/30/24 11/29/24 sertraline 50 mg tablet 100 mg PO QAM 01/18/23 11/30/24 11/30/24 tramadol 50 mg tablet 50 - 100 mg PO Q6H PRN Pain 01/18/23 11/30/24 03/01/23 cranberry fruit concentrate 250 mg 250 mg PO DAILY 03/02/23 11/30/24 11/30/24 chewable tablet (Azo Cranberry) clotrimazole 1 % topical cream 1 applic EXT BID PRN Skin 08/26/24 11/30/24 Unknown Irritation coenzyme Q10 100 mg capsule 100 mg PO DAILY 08/26/24 11/30/24 11/30/24 (CoQ-10) estradiol 0.01% (0.1 mg/gram) 0.5 g vaginal 2XWK PRN NEEDED 08/26/24 11/30/24 Unknown vaginal cream PRN PER PT. ezetimibe 10 mg tablet 10 mg PO QAM 08/26/24 11/30/24 11/30/24 furosemide 20 mg tablet 20 mg PO Q OTHER DAY 08/26/24 11/30/24 11/29/24 gabapentin 600 mg tablet 600 mg PO TID 08/26/24 11/30/24 11/30/24 08:00 insulin aspart 0 unit subcut AC 08/26/24 11/30/24 08/26/24 08:00 (niacinamide)(U-100) 100 unit/mL(3 mL) subcutaneous pen (Fiasp FlexTouch U-100 Insulin) tirzepatide 10 mg/0.5 mL 10 mg subcut WK 08/26/24 11/30/24 11/27/24 subcutaneous pen injector (Megan) oxybutynin chloride 5 mg 5 mg PO DAILY 11/09/24 11/30/24 11/30/24 tablet,extended release 24 hr Active Medications Generic Name Dose Route Start Last Admin Trade Name Freq PRN Reason Stop Dose Admin Acetaminophen 650 mg 11/30/24 16:54 12/01/24 22:34 Acetaminophen 325 Mg Tab PO 12/30/24 16:53 650 mg Q4H PRN Administration pain/fever Amitriptyline HCl 50 mg 11/30/24 21:00 12/01/24 21:17 Amitriptyline Hcl 50 Mg Tab PO 12/30/24 20:59 50 mg HS YARITZA Administration Aspirin 81 mg 12/01/24 09:00 12/02/24 08:06 Aspirin 81 Mg Chew PO 12/31/24 08:59 81 mg QAM YARITZA Administration Atorvastatin Calcium 80 mg 12/01/24 09:00 12/02/24 08:05 Atorvastatin 40 Mg Tab PO 12/31/24 08:59 80 mg DAILY YARITZA Administration Ezetimibe 10 mg 12/01/24 09:00 12/02/24 08:06 Ezetimibe 10 Mg Tab PO 12/31/24 08:59 10 mg QAM YARITZA Administration Furosemide 20 mg 11/30/24 21:00 12/02/24 09:13 Furosemide Inj 20 Mg/2 Ml Vial IV 12/30/24 20:59 20 mg BID17 YARITZA Administration Gabapentin 600 mg 11/30/24 21:00 12/02/24 08:06 Gabapentin 600 Mg Tab PO 12/30/24 20:59 600 mg TID YARITZA Administration Cefepime HCl 2,000 mg in 20 mls @ 5 mls/min 12/01/24 00:00 12/02/24 09:14 Maxipime 2000mg IV 12/08/24 00:00 5 mls/min Q8H YARITZA Administration Protocol Daptomycin 500 mg/ Syringe 10 mls @ 5 mls/min 12/02/24 12:00 12/02/24 12:16 IV 12/12/24 11:59 5 mls/min Q24H YARITZA Administration Protocol Insulin Aspart 0 units 11/30/24 21:00 12/02/24 12:20 Insulin Aspart Per Unit Charge SC 12/30/24 20:59 7 units ACHS YARITZA Administration Insulin Glargine 0 units 12/01/24 21:00 12/02/24 09:14 Lantus Per Unit Charge SQ 12/30/24 20:59 20 units BID YARITZA Administration Protocol Metoprolol Succinate 25 mg 12/01/24 09:00 12/02/24 08:06 Metoprolol Succ 25mg Ext Rel Tab PO 12/31/24 08:59 Not Given QAM YARITZA Nitrofurantoin Macrocrystals 100 mg 12/01/24 14:30 12/02/24 08:08 Nitrofurantoin Monohydrate 100 Mg Cap PO 12/06/24 14:14 100 mg BID YARITZA Administration Oxybutynin Chloride 5 mg 12/01/24 09:00 12/02/24 08:05 Oxybutynin Chloride Xl 5 Mg Tabcr PO 12/31/24 08:59 5 mg DAILY YARITZA Administration Rivaroxaban 2.5 mg 11/30/24 21:00 12/02/24 08:07 Rivaroxaban 2.5 Mg Tab PO 12/30/24 20:59 2.5 mg BID YARITZA Administration Ropinirole HCl 0.5 mg 11/30/24 21:00 12/01/24 21:16 Ropinirole Hcl 0.25 Mg Tablet PO 12/30/24 20:59 0.5 mg HS YARITZA Administration Sertraline HCl 100 mg 12/01/24 09:00 12/02/24 08:07 Sertraline Hcl 100 Mg Tablet PO 12/31/24 08:59 100 mg QAM YARITZA Administration Tramadol HCl 50 mg 11/30/24 16:50 12/01/24 19:29 Tramadol Hcl 50 Mg Tablet PO 12/30/24 16:49 50 mg Q6H PRN Administration Pain
--- NOTE | 2024-12-02 17:20 | Hospitalist Progress Note ---
Date of Service December 02, 2024 Assessment & Plan (1) Cellulitis of leg, right: (2) Acute UTI: (3) CHF (congestive heart failure): (4) Hyperkalemia: Plan Mariia is a 69-year-old woman with past medical history of COPD on 4 L supplemental O2 at baseline, hypertension, PVD on Xarelto, T2DM, CHF, anxiety/depression. She experienced a fall where she scraped her right meza approximately 1 month ago resulting in blister formation. She completed a course of doxycycline and did wound dressings in the outpatient setting, but unfortunately she continued to have worsening erythema and swelling. On presentation, she also reported increased dyspnea was found to be hypoxic on room air in the ED. Her UA was also positive for an acute UTI. She was admitted for treatment of her RLE cellulitis, UTI, and CHF exacerbation. #Cellulitis of right lower extremity - improving - Started/continued on Cefepime - Added on Daptomycin more for UTI coverage but will also cover SSTI - ID consulted, recommendations pending - Wound care consulted and performed RANJITH assessments that revealed R RANJITH 0.45 and L RANJITH 0.55 - follows with Dr. Rosas in [place] - recommend outpatient follow-up #Acute UTI - Urine culture grew Enterococcus faecalis, resistant to tetracycline - Was being treated with Cefepime, but now with urine culture results, Daptomycin has been added. Listed allergies to penicillin and sulfa #CHF exacerbation, mild - CTA on admission suggestive of mild interstitial pulmonary edema - Lasix now changed to 40 mg PO once daily given appropriate UO and mild hypotension - Net negative ~6.9 L - Baseline O2 requirement of 4L, currently requiring 6L #Hyperkalemia - potassium of 5.4 on admission - S/p Lokelma 10 g TID x 6 doses - Potassium now WNL - Continue to trend BMP #T2DM - A1c 7.7% on 12/01/24 - Pharmacy consult in place for glycemic management #COPD - Albuterol PRN - 4L home O2 baseline #Hyperlipidemiaatorvastatin now on hold with daptomycin #PADcontinue Xarelto #Depressioncontinue sertraline, amitriptyline VTE PPx: SCDs Dispo: Anticipate discharge home tomorrow 12/03 Updated at bedside Adjusted Lasix regimen Started daptomycin Hold atorvastatin Admission and Anticipated Discharge Date Admission Date: November 30, 2024 Supervising Physician Co-Signing Physician Notes PA Supervision Note: I did not personally see or examine the patient today, but I verified all amaro points of JENNY Kasper's assessment and plan with the following exceptions/additions: None Subjective Patient seen and evaluated at bedside with her present. Reports her right lower extremity tenderness and erythema is much improved compared to yesterday. She denies any lightheadedness or dizziness. She is still requiring a slight increase in her baseline supplemental oxygen at this time but denies any dyspnea. We discussed potential discharge home tomorrow, she is agreeable and eager for this. No additional complaints or concerns at this time. Telemetry reviewed: NSR in 70s. Physical Exam 2 Physical Exam: General: No acute distress, nondiaphoretic, well-developed, well-nourished. Cardiac: Regular rate and rhythm without murmurs gallops or rubs. Pulm: Diminished at bases bilaterally R>L but otherwise clear to auscultation without wheezes, rales or rhonchi. Normal respiratory effort. 96% on 6 L NC. Abdominal: Soft, nontender, nondistended. Bowel sounds present. Extremities: Significantly reduced erythema from previously marked borders on RLE. Superficial scabbed ulcerations on anterior distal meza with surrounding dry skin. No significant warmth in RLE. No peripheral edema. Neuro: A&O x3. No focal neurological deficits. Results & Data Results & Data Vital Signs (Past 12 Hours) Vital Signs Temp Pulse Pulse Resp BP BP Pulse Ox 12/02/24 15:35 73 12/02/24 14:39 98.2 F 77 18 99/65 L 96 12/02/24 11:30 97.7 F 76 18 124/75 96 12/02/24 08:04 97.3 F L 82 18 80/60 L 92 12/02/24 07:55 12/02/24 07:24 72 O2 Del Method O2 Flow Rate 12/02/24 15:35 12/02/24 14:39 Nasal Cannula 6 12/02/24 11:30 Room Air 12/02/24 08:04 Nasal Cannula 6 12/02/24 07:55 Nasal Cannula 6 12/02/24 07:24 Laboratory Results Reviewed CBC Reviewed BMP Reviewed urine culture Reviewed blood cultures PG Care Time/CCT Total # of Minutes Spent Total Time Spent with Patient: Total time spent is greater than 50% in coordination of care (as documented) at patient's floor/unit and/or counseling patient: Coding Level of Care Code 94325 SUB INP/OBS CARE 350MIN Diagnoses Cellulitis of leg, right L03.115 Acute UTI N39.0 CHF (congestive heart failure) I50.9 Hyperkalemia E87.5
[2024-12-02] MEDS: LORazepam 0.5 MG TAB PO PRN (23:36)
[2024-12-03 02:46] VITALS: RESP 18
[2024-12-03 07:10] LABS: Hematocrit (blood only) 46.1 % (37.0-47.0); Hemoglobin 13.9 g/dl (12.0-16.0); Mean Corpuscular Hemoglobin 25.4 pg (25.0-34.0); Mean Corpuscular Volume 84.1 fL (80.0-100.0); Platelet Count 173 K/uL (130-400); RDW Standard Deviation 61.4 fL (36.4-46.3); Red Blood Count 5.48 M/uL (4.20-5.40); White Blood Count 6.23 K/ul (4.8-10.8)
[2024-12-03 07:22] VITALS: PULSE 86; TEMP 98.4; O2SAT 96
[2024-12-03 07:39] LABS: Anion Gap 6.0 (3-11); Blood Urea Nitrogen 21.0 mg/dl (6-23); Calcium 9.2 mg/dl (8.6-10.3); Carbon Dioxide 35.0 mmol/L (21-32); Chloride 96.0 mmol/L (98-107); Creatinine Clr Calc Pharmacy 79.3 ml/min; Glucose 175.0 mg/dl (70-99(Fasting)); Potassium 4.2 mmol/L (3.5-5.1); Sodium 137.0 mmol/L (136-145)
[2024-12-03] MEDS: FUROSEMIDE 40 MG TAB PO SCH (09:05)
[2024-12-03 11:25] VITALS: BP 109/70
--- NOTE | 2024-12-03 18:25 | Discharge Summary ---
Discharge Summary Date of Service December 03, 2024 Principal Dx & Hospital Course #1 = Principal Diagnosis (1) Cellulitis of leg, right: (2) Asymptomatic bacteriuria: (3) CHF (congestive heart failure): (4) Hyperkalemia: Plan Mariia is a 69-year-old woman with past medical history of COPD on 4 L supplemental O2 at baseline, hypertension, PVD on Xarelto, T2DM, CHF, anxiety/depression. She experienced a fall where she scraped her right meza approximately 1 month ago resulting in blister formation. She completed a course of doxycycline and did wound dressings in the outpatient setting, but unfortunately she continued to have worsening erythema and swelling. On presentation, she also reported increased dyspnea was found to be hypoxic on room air in the ED. She was admitted for treatment of her RLE cellulitis, UTI, and CHF exacerbation. #Cellulitis of right lower extremity - improving - ID consulted and provided antibiotic recommendations - Treated with IV cefepime while admitted. Discharged on Levaquin 500 mg once daily x 5 additional days - Wound care consulted and performed RANJITH assessments that revealed R RANJITH 0.45 and L RANJITH 0.55 - follows with Dr. Rosas in [place] - recommend outpatient follow-up #Asymptomatic bacteriuria - Urine culture grew Enterococcus faecalis, resistant to tetracycline - ID felt as though urine culture reflected asymptomatic bacteriuria, not acute UTI #CHF exacerbation, mild - CTA on admission suggestive of mild interstitial pulmonary edema - Given aggressive diuretic regimen during hospitalization. Net negative ~8.2 L - Did not adjust Lasix on discharge as Mariia reported she has not had issues previously. Recommend closely monitoring outpatient and could increase Lasix to 20-40 mg daily if needed - Baseline O2 requirement of 4L, required 6L throughout hospitalization #Hyperkalemia - potassium of 5.4 on admission - S/p Lokelma 10 g TID x 6 doses and treated with loop diuretics - Potassium now WNL #T2DM - A1c 7.7% on 12/01/24 - Pharmacy consult in place for glycemic management while inpatient - Home regimen resumed on discharge #COPD - Albuterol PRN - 4L home O2 baseline #Hyperlipidemiacontinue continue atorvastatin #PADcontinue Xarelto #Depressioncontinue sertraline, amitriptyline VTE PPx: SCDs Dispo: Discharged home 12/03 Notes For Next Care Provider Monitor CHF symptoms to determine need for increase in home Lasix. Her home Lasix dosing was not adjusted on discharge since Mariia reported she has not had issues with CHF exacerbations previously. Recommend she follows up with Dr. Rosas in [place] as her RANJITH assessments revealed R RANJITH 0.45 and L RANJITH 0.55. Medication Changes From Visit Levofloxacin 500 mg daily x 5 days Admission HPI Per Admitting Provider Pt is a 69 y/o female with PMH of COPD on 4L intermittent home 02, HTN, PVD, on xarelto, DM, CHF, anxiety, depression who presents with right leg blisters with surrounding erythema. Pt states she had a fall in which she scrapped her right meza last month resulting in blister formation. She had wound dressing and took a course of doxycycline and has worsening erythema and swelling. She also complains of increasing SOB, and was found to have 02 sats in the low 80s in the ER. Her labs showed elevated K+ 5.4 and cr 0.9. She had a UA + for UTI. Pt also had CTA chest, which was negative for PE or infiltrated, but did show mild pulmonary edema. Pt was started on cefepime for treatment of her right lower ext cellulitis and UTI as well as lasix for her pulmonary edema. Discharge Exam General: No acute distress, nondiaphoretic, well-developed, well-nourished. Cardiac: Regular rate and rhythm without murmurs gallops or rubs. Pulm: Diminished at bases bilaterally R>L but otherwise clear to auscultation without wheezes, rales or rhonchi. Normal respiratory effort. 96% on 6 L NC. Abdominal: Soft, nontender, nondistended. Bowel sounds present. Extremities: Significantly reduced erythema from previously marked borders on RLE. Superficial scabbed ulcerations on anterior distal meza with surrounding dry skin. No significant warmth in RLE. No peripheral edema. Neuro: A&O x3. No focal neurological deficits. Discharge Plan Discharge Items Patient Disposition: Home - Self-Care Reason For Visit: RIGHT LEG REDNESS Discharge Diagnosis: Right lower extremity cellulitis Condition on Discharge: Fair Activity: Resume your previous activity Non-emergency contact: Primary Care Provider Call non-emergency contact if: you have any medication questions, your symptoms worsen, your pain is not controlled and you have a fever Follow-up/Referrals: Jonny Donaldson MD [Primary Care Provider] - (Follow-up in 1-2 weeks) Diet: Carb Consistent or DM2 Addtl Attending Provider Instructions: Mariia, [place] were admitted to the hospital due to a cellulitis infection. Cellulitis is an infection of the skin/soft tissues caused by bacteria. Bacteria can enter the body through broken skin; this can happen with a cut, scratch, or insect bite. You have been treated in the hospital with IV antibiotics, and will be discharged with oral antibiotics to continue taking at home. Upon discharge from the hospital: * Take Levaquin (oral antibiotic) once daily x 5 additional days. Take this antibiotic as directed until it is gone. Take it even if you feel better. It treats the infection and prevents it from returning. Not taking all of the medicine can make future infections harder to treat. Side effects of oral antibiotics include GI upset. I recommend taking your antibiotic with food to prevent nausea/vomiting/diarrhea. You can also use an [id number] probiotic to prevent the side effects as well. * You can use Tylenol and/or ibuprofen as needed for pain. * Continue your usual home medications as prescribed. There have been no changes made to your usual home medication regimen on discharge. You did receive an increased dose of Lasix during your hospitalization. Monitor your weight daily at home and this can be discussed further with your PCP if your home Lasix dose needs to be increased. * Follow-up with your PCP in 1-2 weeks. Please return to the hospital if you experience any of the following: Fever of 101 F or higher, trouble or pain with moving the joints above or below the infected area, discharge or pus draining from the infected area, pain that gets worse in or around the infected area, redness that gets worse and around the infected area, shaking chills, worsened swelling of the infected area, persistent vomiting, lightheadedness, dizziness, passing out, shortness of breath, difficulty breathing, or chest pain. It was a pleasure taking care of you while you were in the hospital, Suzanne Kasper PA-C Pending Studies at Discharge: No Stand-Alone Forms: My [facility], Smoking Cessation Medications and DC Order Prescriptions: New levofloxacin 500 mg tablet 500 mg PO DAILY 5 Days Qty: 5 0RF Continued atorvastatin 80 mg tablet 80 mg PO DAILY metformin 850 mg tablet 850 mg PO TIDM tramadol 50 mg tablet 50 - 100 mg PO Q6H PRN (Reason: Pain) amitriptyline 50 mg tablet 50 mg PO HS lorazepam 0.5 mg tablet 0.5 mg PO Q8H PRN (Reason: ANXIETY/INSOMNIA) ropinirole 0.5 mg tablet 0.5 mg PO HS Rx Instructions: TAKE BEFORE NAPS & HS. aspirin 81 mg Tablet,Chewable 81 mg PO QAM metoprolol succinate 25 mg tablet extended release 24 hr 25 mg PO QAM albuterol sulfate 90 mcg/actuation HFA aerosol inhaler 2 puff INHALATION Q4H PRN (Reason: COUGH/WHEEZING) fluticasone propionate 50 mcg/actuation [place],Suspension 2 spray INTRANASAL BID PRN (Reason: Congestion) Rx Instructions: administer into each nostril sertraline 50 mg tablet 100 mg PO QAM insulin glargine [Basaglar KwikPen U-100 Insulin] 100 unit/mL (3 mL) insulin pen 30 unit SUBCUT BID Krill Oil ([place] 3 and 6) 1000-130(40-80) mg Capsule 1 cap PO QAM Jardiance 10 mg tablet 10 mg PO QAM rivaroxaban [Xarelto] 2.5 mg tablet 2.5 mg PO BID Azo Cranberry 250 mg Tablet,Chewable 250 mg PO DAILY oxybutynin chloride 5 mg tablet extended release 24hr 5 mg PO DAILY Patient Comments: last filled 11/08 90 day supply Fiasp FlexTouch U-100 Insulin 100 unit/mL (3 mL) insulin pen 0 unit subcut AC Rx Instructions: PER PT "SLIDING SCALE" LAST ORDERED: TAKES 26 UNITS/BREAKFAST, 18 UNITS/LUNCH, & 20 UNITS/SUPPER Mounjaro 10 mg/0.5 mL pen injector 10 mg SUBCUT WK Rx Instructions: WEDNESDA[place] gabapentin 600 mg tablet 600 mg PO TID estradiol 0.01 % (0.1 mg/gram) cream 0.5 g VAGINAL 2XWK PRN (Reason: NEEDED PRN PER PT.) ezetimibe 10 mg tablet 10 mg PO QAM coenzyme Q10 [CoQ-10] 100 mg Capsule 100 mg PO DAILY furosemide 20 mg tablet 20 mg PO Q OTHER DAY clotrimazole 1 % cream 1 applic EXT BID PRN (Reason: Skin Irritation) Rx Instructions: Apply to right and left groin twice a day for 10 days Discharge Orders: Discharge Order (Routine); Ordered 12/03/24 Ordered By: Suzanne Kasper Admission Data Admit Date/Time: 11/30/24 16:54 Attending Provider: Aura Hebert Admit Provider: Caleb Garcia Primary Care Provider: Jonny Donaldson Other Providers: Caleb Garcia; Loyda Bryan; Maryam Luna; Audra Calloway; Allan Markham; Suzanne Cavazos; Aurora Wolfe Other Interventions: Discharge Summary Assessment (RN) Last Done: 12/03/24 11:24 Hospital Stay Data Consultations 11/30/24 16:45 ED Decision to Admit Stat 11/30/24 17:57 Consult Infectious Diseases Routine Diagnostic Imagining Performed Chest X-Ray 11/30/24 13:27 Exam: Chest one view portable. Reason for exam: Shortness of breath with right lower leg swelling and redness. Previous studies: 11/09/2024. FINDINGS: Heart remains enlarged but is stable. Mild chronic interstitial lung opacities are seen without new active infiltrate or edema. Chronic elevation the right hemidiaphragm is stable. IMPRESSION: Stable cardiomegaly and interstitial lung disease. No new acute cardiopulmonary abnormality seen at this time. Electronically signed by Juan Shah 11-30-2024 2:19 PM Tibia/Fibula X-Ray 11/30/24 13:27 Clinical History: Swelling and redness 2 views of the right lower leg are submitted for review. Findings: No fracture or dislocation is seen. There is mild ankle joint osteoarthritis. No other osseous abnormality is identified. There are no radiopaque foreign bodies. Vascular calcifications are present Impression: 1. No definite fracture 2. Ankle joint osteoarthritis Electronically signed by Artem Casas 11-30-2024 2:20 PM Chest CTA 11/30/24 15:29 CT pulmonary angiogram with IV contrast History: Chest pain COMPARISON: None TECHNIQUE: CT angiography of the chest was performed without IV contrast followed by IV contrast, including 3D post processing CTA image reconstruction. Dose reduction techniques were achieved by using automatic exposure control and/or adjustment of mA and/or kV according to patient size and/or use of iterative reconstruction technique. FINDINGS: Diagnostic quality: Adequate There is no evidence for pulmonary embolism. The heart is enlarged. Heavy coronary calcifications. Status post CABG. There are prominent aortic valve calcifications. There is no pericardial effusion. There are no abnormally enlarged hilar or mediastinal lymph nodes. The central tracheobronchial tree is clear. Mosaic attenuation of the lungs. Scattered streaky atelectasis in the lingula and lung bases, in the right middle lobe. Mild intralobular septal thickening in the upper lungs may be seen with interstitial pulmonary edema. There is no pleural effusion. Limited visualized upper abdomen. No destructive osseous changes are seen. IMPRESSION: No evidence for pulmonary embolism. Findings suggestive of mild interstitial pulm edema. Mosaic attenuation of the lung suggesting small airway or small vessel disease. CABG changes. Electronically signed by Giorgio Chan 11-30-2024 5:28 PM Chest X-Ray 12/01/24 22:35 Exam(s): XR CXR 1 VIEW EXAM: XR Chest, 1 View CLINICAL HISTORY: Reason for exam: CHF. TECHNIQUE: Frontal view of the chest. COMPARISON: 11/30/2024 FINDINGS: Lungs: Unchanged interstitial edema. Pleural space: No pleural effusion. No pneumothorax. Heart: Cardiomegaly. Upper abdomen: Elevated right hemidiaphragm. IMPRESSION: Unchanged interstitial edema. Electronically signed by: Tariq Webster MD 12/02/24 00:00 AM Pending Results Patient Have Any Pending Studies at Discharge: No Discharge Instructions Given to Patient (Per Discharging Provider) Mariia, You were admitted to the hospital due to a cellulitis infection. Cellulitis is an infection of the skin/soft tissues caused by bacteria. Bacteria can enter the body through broken skin; this can happen with a cut, scratch, or insect bite. You have been treated in the hospital with IV antibiotics, and will be discharged with oral antibiotics to continue taking at home. Upon discharge from the hospital: * Take Levaquin (oral antibiotic) once daily x 5 additional days. Take this antibiotic as directed until it is gone. Take it even if you feel better. It treats the infection and prevents it from returning. Not taking all of the medicine can make future infections harder to treat. Side effects of oral antibiotics include GI upset. I recommend taking your antibiotic with food to prevent nausea/vomiting/diarrhea. You can also use an [id number] probiotic to prevent the side effects as well. * You can use Tylenol and/or ibuprofen as needed for pain. * Continue your usual home medications as prescribed. There have been no changes made to your usual home medication regimen on discharge. You did receive an increased dose of Lasix during your hospitalization. Monitor your weight daily at home and this can be discussed further with your PCP if your home Lasix dose needs to be increased. * Follow-up with your PCP in 1-2 weeks. Please return to the hospital if you experience any of the following: Fever of 101 F or higher, trouble or pain with moving the joints above or below the infected area, discharge or pus draining from the infected area, pain that gets worse in or around the infected area, redness that gets worse and around the infected area, shaking chills, worsened swelling of the infected area, persistent vomiting, lightheadedness, dizziness, passing out, shortness of breath, difficulty breathing, or chest pain. It was a pleasure taking care of you while you were in the hospital, Szuanne Kasper PA-C Supervising Physician Co-Signing Physician Notes PA Supervision Note: I did not personally see or examine the patient today, but I verified all amaro points of JENNY Kasper's assessment and plan with the following exceptions/additions: None Total Time Total Time Spent Total Time Spent (In Minutes): Greater than 30 minutes spent completing this discharge process including direct patient care, medication reconciliation, documentation, review of labs and images, and coordination of care. Coding Level of Care Code 37467 INP/OBS DISCH >30 MIN Diagnoses Cellulitis of leg, right L03.115 Asymptomatic bacteriuria R82.71 CHF (congestive heart failure) I50.9 Hyperkalemia E87.5
== END 2024-12-03 13:18 | disposition home or self-care (01) | DRG 602 ==
LOC: SUATTDRO → ED 13:01 → 2N 16:54 → SUATTDRO 16:54 → 2N 19:58